=== PATIENT | female | born 1955 | race Caucasian/White ===

== ENCOUNTER 2022-10-20 21:35 | Emergency (ER) | payer MEDICARE, MEDICAID, SELFPAY ==
[2022-10-20 21:38] VITALS: BP 160/78; PULSE 76; RESP 16; TEMP 36.9; O2SAT 95; BMI 18.1
--- NOTE | 2022-10-20 21:50 | XR_ITS ---
The [address] [address] Patient Name: PATTY ROSE MRN: [id number] date: 1955 Sex: F Assigned Patient Location: ER Current Patient Location: ED.MAIN Accession/Order Number: [id number] Exam Date: 10/20/2022 22:00 Report Date: 10/20/2022 22:27 At the request of: MICHAEL PALMER Procedure: XR forearm LT 2V PROCEDURE: XR forearm LT 2V HISTORY: fall, acute left forearm injury COMPARISON: None. FINDINGS: BONES:Moderate marked degenerative joint disease involving the scaphoid-trapezium and the trapezium-first metacarpal joints. No fracture of the radius or ulna. Small degenerative enthesophyte at the triceps tendon insertion into the olecranon. SOFT TISSUES:No visible soft tissue swelling. EFFUSION:None visible. OTHER: Negative. IMPRESSION: 1. No acute bone abnormality. 2. Marked degenerative changes of the wrist. Electronically authenticated by: MESHA CARRASCO Date: 10/20/2022 22:27
--- NOTE | 2022-10-20 21:50 | ED.UPPEXIN1 ---
HPI - Extremity Injury (Upper) General Chief Complaint: Extremity Injury, Upper Stated Complaint: FALL, UPPER EXTREMITY ARM Time Seen by Provider: 10/20/22 21:36 Mode of arrival: ambulance History of Present Illness HPI narrative: [facility] fell at the shelter and landed onto her left arm, injuring the left forearm. No deformity noted and she can move the left upper extremity normally. No injury to the head, neck or back. Torso, hips, other extremities were not injured. Related Data Allergies Allergy/AdvReac Type Severity Reaction Status Date / Time erythromycin base AdvReac Mild Verified 10/20/22 21:44 [facility] Social History Smoking status: Never smoker Exam Narrative Exam Narrative: Nurses note and vital signs reviewed and patient is not hypoxic. afebrile General: The patient appears well and in no apparent distress. Patient is resting comfortably on cart. GCS = 15. Skin: Warm, dry, no pallor noted. Head: Normocephalic, atraumatic Neck: Supple, trachea mid-line. Full ROM and no cervical spinal tenderness. Eyes: PERRLA, EOMI ENT: no facial or oral injury Cardiovascular: Regular Rate and Rhythm Respiratory: Patient is in no distress, no accessory muscle use, lungs are clear to auscultation, no wheezing, rales or rhonchi Chest Wall: no tenderness, no flail chest, contusion, abrasion, or signs of trauma. Back: No thoracic or lumbar tenderness to palpation. Negative straight leg raise bilaterally. Musculoskeletal: Tenderness along the left forearm without deformity or decreased left UE ROM. no other sign of long bone fracture, no tenderness, no swelling. Pulses at femoral, DP, PT, and popliteal were 2+ bilaterally. Moves all four extremities in all modalities with 5/5 strength. GI: Normal bowel sounds, no tenderness to palpation, no masses appreciated. No rebound, guarding, or rigidity noted. 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 Psychiatric: Cooperative Constitutional Vital Signs, click to edit/add: Last Vital Signs Temp 98.5 F 10/20/22 21:38 Pulse 76 10/20/22 21:38 Resp 16 10/20/22 21:38 BP 160/78 H 10/20/22 21:38 Pulse Ox 95 10/20/22 21:38 O2 Del Method Room Air 10/20/22 21:38 Course Vital Signs Vital signs: Vital Signs Temperature 98.5 F 10/20/22 21:38 Pulse Rate 76 10/20/22 21:38 Respiratory Rate 16 10/20/22 21:38 Blood Pressure 160/78 H 10/20/22 21:38 Pulse Oximetry 95 10/20/22 21:38 Oxygen Delivery Method Room Air 10/20/22 21:38 Temperature 98.5 F 10/20/22 21:38 Pulse Rate 76 10/20/22 21:38 Respiratory Rate 16 10/20/22 21:38 Blood Pressure 160/78 H 10/20/22 21:38 Pulse Oximetry 95 10/20/22 21:38 Oxygen Delivery Method Room Air 10/20/22 21:38 MDM - Extremity Injury (Upper) MDM Narrative Medical decision making narrative: xrays of the left forearm obtained. They were negative for acute fracture or dislocation and she was discharged back to [facility] in [place]. Imaging Data xr forearm: My impression: no fracture or dislocation Discharge Plan Discharge Chief Complaint: Extremity Injury, Upper Clinical Impression: Left forearm pain Patient Disposition: Home, Self-Care Time of Disposition Decision: 22:20 Instructions: Arm Pain (ED) Stand Alone Forms: Portal Instructions Referrals: JOHN POLO [Primary Care Provider] - 1 week
== END 2022-10-20 23:55 | disposition home or self-care (01) ==
PROVIDERS: Emergency Provider Emergency Medicine; PCP Family Medicine
DX: M79.632 Pain in left forearm (principal); Z91.81 History of falling
CPT/HCPCS: 73090; 99283

== ENCOUNTER 2023-04-03 16:01 | Emergency (ER) | payer MEDICARE, MEDICAID, SELFPAY ==
[2023-04-03 16:08] VITALS: BP 149/80; PULSE 71; RESP 18; TEMP 37.1; O2SAT 95; BMI 17.4
--- NOTE | 2023-04-03 16:18 | XR_ITS ---
The [address] [address] Patient Name: PATTY ROSE MRN: [id number] date: 1955 Sex: F Assigned Patient Location: ER Current Patient Location: ED.MAIN Accession/Order Number: [id number] Exam Date: 04/03/2023 16:37 Report Date: 04/03/2023 17:17 At the request of: BOOKER SAMUEL Procedure: XR hip LT 2V w/ pelvis STUDY: XR hip LT 2V w/ pelvis, [id number] HISTORY: pain, fall COMPARISON: CT abdomen/pelvis 01/03/2021 and pelvis x-rays 09/29/2020. FINDINGS: Small curvilinear focus of calcification just lateral to the left acetabulum and superior to the left femoral head which is new compared with 09/29/2020. This could represent osseous fragmentation from severe osteoarthritis versus small acute fracture fragment. No other potentially acute fracture demonstrated. Severe joint space loss, subcortical cystic change, mild cortical collapse of the superior femoral head surface, and resulting cranial and lateral displacement of the left femoral head with respect to the acetabulum, new compared with 09/29/2020. XR/XR hip LT 2V w/ pelvis IMPRESSION: 1. Possible small fracture fragment versus osteoarthritic fragment just lateral to the acetabulum. No other potentially acute fracture demonstrated. 2. Severe osteoarthritis of the left hip is new compared with 09/29/2020. Degenerative changes have resulted in cranial and lateral positioning/subluxation of the left femoral head with respect to the acetabulum. Electronically authenticated by: ОЛЕГ WOMACK Date: 04/03/2023 17:17
--- NOTE | 2023-04-03 16:19 | ED.LOWEXI1 ---
Documented by User: Ana Acostaon 04/03/23 17:58 HPI - Extremity Injury (Lower) General Chief Complaint: Extremity Injury, Lower Stated Complaint: LOWER EXTREMITY INJURY Time Seen by Provider: 04/03/23 16:15 Source: patient Mode of arrival: ambulance Limitations: physical limitation History of Present Illness HPI Narrative: 67 year old female presents to the ED via EMS for left hip pain, fall. She has been having issues with her hip and is scheduled for a replacement tomorrow. Today she was walking along the edge of her bed, holding onto the bed, when her left hip developed increased pain causing her to fall. Denies hitting her head and LOC. Denies injury to other areas. Denies pain to her head, neck, back, chest, abdomen. Rates her pain 7/10 a this time. She was given fentanyl per EMS. Reports limited ROM to her left hip which is unchanged. She was given fentanyl per EMS with some improvement in her discomfort. Related Data Home Medications Medication Instructions Recorded Confirmed alendronate 70 mg tablet 70 mg PO .weekly 04/03/23 04/03/23 amlodipine 10 mg tablet 10 mg PO Q24H 04/03/23 04/03/23 atorvastatin 40 mg tablet 40 mg PO Q24H 04/03/23 04/03/23 buspirone 10 mg tablet 10 mg PO Q12H 04/03/23 04/03/23 calcium carbonate 600 mg-vitamin 1 tab PO BID 04/03/23 04/03/23 D3 10 mcg (400 unit) tablet (Calcium with Vitamin D) clonazepam 0.5 mg tablet 0.5 mg PO Q8H 04/03/23 04/03/23 cyclobenzaprine 10 mg tablet 10 mg PO Q8H 04/03/23 04/03/23 deutetrabenazine 12 mg tablet 12 mg PO Q12H 04/03/23 04/03/23 (Austedo) dextromethorphan-guaifenesin 10 10 ml PO Q6H 04/03/23 04/03/23 mg-100 mg/5 mL oral syrup fluticasone propionate 50 1 spray intranasal Q24H 04/03/23 04/03/23 mcg/actuation nasal spray,suspension gabapentin 300 mg capsule 300 mg PO Q12H 04/03/23 04/03/23 gabapentin 600 mg tablet 600 mg PO Q24H 04/03/23 04/03/23 levothyroxine 75 mcg tablet 75 mcg PO Q24H 04/03/23 04/03/23 loperamide 2 mg capsule 2 mg PO Q6H PRN loose stool 04/03/23 04/03/23 (Anti-Diarrheal (loperamide)) pantoprazole 40 mg tablet,delayed 40 mg PO Q12H 04/03/23 04/03/23 release pantoprazole 40 mg tablet,delayed 40 mg PO DAILY 04/03/23 04/03/23 release (Protonix) polyethylene glycol 3350 17 17 g PO DAILY 04/03/23 04/03/23 gram/dose oral powder (Miralax) primidone 50 mg tablet 250 mg PO Q24H 04/03/23 04/03/23 sucralfate 1 gram tablet 1 g PO Q6H 04/03/23 04/03/23 trazodone 100 mg tablet 100 mg PO Q24H 04/03/23 04/03/23 Allergies Allergy/AdvReac Type Severity Reaction Status Date / Time erythromycin base AdvReac Mild Verified 10/20/22 21:44 Review of Systems ROS Constitutional Denies: fever or chills Cardiovascular Denies: chest pain or lightheadedness Respiratory Denies: shortness of breath Gastrointestinal Denies: abdominal pain, nausea or vomiting Musculoskeletal Reports: joint pain; Denies: back pain or neck pain Integumentary/Breast Denies: rash Neurological Denies: headache or dizziness PFSH PFSH Social History Smoking status: Never smoker Exam Constitutional Vital Signs, click to edit/add: Last Vital Signs Temp 98.7 F 04/03/23 16:08 Pulse 71 04/03/23 16:08 Resp 18 04/03/23 16:08 BP 149/80 H 04/03/23 16:08 Pulse Ox 95 04/03/23 16:08 Common normals: no apparent distress and oriented x3 General appearance: cooperative HENMN Common normals: normocephalic Eye Common normals: PERRL, EOMs intact bilaterally, conjunctivae normal and no scleral icterus Neck & C-Spine Common normals: supple General: normal visual inspection Cervical spine: no cervical spine tenderness and no paracervical muscle tenderness Chest Chest: symmetrical chest wall rise Respiratory Common normals: normal respiratory effort Effort & inspection: symmetric chest movement Cardio Common normals: regular rate Peripheral pulses: posterior tibial pulses present and dorsalis pedis pulses present Back & Pelvis Thoracic spine/upper back: normal to inspection; no thoracic spinal tenderness and no paraspinal muscle tenderness Lumbar spine/lower back: normal to inspection; no lumbar spinal tenderness and no paraspinal muscle tenderness Sacrum: no swelling and no tenderness Coccyx: no swelling and no tenderness Extremity Left lower extremity: hip joint Left hip: inspection (Internal rotation. ), palpation (Tenderness lateral and anterior.) and ROM (Minimal.) Course Vital Signs Vital signs: Vital Signs Temperature 98.7 F 04/03/23 16:08 Pulse Rate 71 04/03/23 16:08 Respiratory Rate 18 04/03/23 16:08 Blood Pressure 149/80 H 04/03/23 16:08 Pulse Oximetry 95 04/03/23 16:08 Temperature 98.7 F 04/03/23 16:08 Pulse Rate 71 04/03/23 16:08 Respiratory Rate 18 04/03/23 16:08 Blood Pressure 149/80 H 04/03/23 16:08 Pulse Oximetry 95 04/03/23 16:08 MDM - Extremity Injury (Lower) MDM Narrative Medical decision making narrative: Imaging was reviewed by the ED attending. He reported the x-rays were negative for acute findings and a CT scan was not indicated at this time. She was able to move her extremities and was able to ambulate with assistance. She has an appointment at [facility] tomorrow with her orthopedist regarding her left hip issues. She was encouraged to follow up as scheduled. Return to the ER for new or worsening sx. She was given a copy of her imaging report. She was medicated for her discomfort with improvement. Differential Diagnosis Differential diagnosis: Likely fracture of hip and other (hip dislocation, chronic hip pain) Medical Records Attestation: I reviewed the patient's medical records. Imaging Data XR left hip/pelvis: Attestation: I have reviewed the pertinent imaging results. Radiologist's impression: Procedure: XR hip LT 2V w/ pelvis STUDY: XR hip LT 2V w/ pelvis, [id number] HISTORY: pain, fall COMPARISON: CT abdomen/pelvis 01/03/2021 and pelvis x-rays 09/29/2020. FINDINGS: Small curvilinear focus of calcification just lateral to the left acetabulum and superior to the left femoral head which is new compared with 09/29/2020. This could represent osseous fragmentation from severe osteoarthritis versus small acute fracture fragment. No other potentially acute fracture demonstrated. Severe joint space loss, subcortical cystic change, mild cortical collapse of the superior femoral head surface, and resulting cranial and lateral displacement of the left femoral head with respect to the acetabulum, new compared with 09/29/2020. XR/XR hip LT 2V w/ pelvis IMPRESSION: 1. Possible small fracture fragment versus osteoarthritic fragment just lateral to the acetabulum. No other potentially acute fracture demonstrated. 2. Severe osteoarthritis of the left hip is new compared with 09/29/2020. Degenerative changes have resulted in cranial and lateral positioning/subluxation of the left femoral head with respect to the acetabulum. Electronically authenticated by: ОЛЕГ WOMACK Date: 04/03/2023 17:17 Discharge Plan Discharge Chief Complaint: Extremity Injury, Lower Clinical Impression: Hip pain, left Patient Disposition: Home, Self-Care Time of Disposition Decision: 17:35 Condition: Good Mode of Transportation: Private Vehicle Prescriptions / Home Meds: No Action amlodipine 10 mg tablet 10 mg PO Q24H atorvastatin 40 mg tablet 40 mg PO Q24H Austedo 12 mg tablet 12 mg PO Q12H buspirone 10 mg tablet 10 mg PO Q12H clonazepam 0.5 mg tablet 0.5 mg PO Q8H cyclobenzaprine 10 mg tablet 10 mg PO Q8H fluticasone propionate 50 mcg/actuation spray,suspension 1 spray INTRANASAL Q24H alendronate 70 mg tablet 70 mg PO .weekly gabapentin 300 mg capsule 300 mg PO Q12H gabapentin 600 mg tablet 600 mg PO Q24H levothyroxine 75 mcg tablet 75 mcg PO Q24H pantoprazole 40 mg tablet,delayed release (DR/EC) 40 mg PO Q12H primidone 50 mg tablet 250 mg PO Q24H sucralfate 1 gram tablet 1 g PO Q6H trazodone 100 mg tablet 100 mg PO Q24H pantoprazole [Protonix] 40 mg tablet,delayed release (DR/EC) 40 mg PO DAILY polyethylene glycol 3350 [Miralax] 17 gram/dose powder 17 g PO DAILY loperamide [Anti-Diarrheal (loperamide)] 2 mg capsule 2 mg PO Q6H PRN (Reason: loose stool) dextromethorphan-guaifenesin 10-100 mg/5 mL syrup 10 ml PO Q6H calcium carbonate-vitamin D3 [Calcium with Vitamin D] 600 mg-10 mcg (400 unit) tablet 1 tab PO BID Instructions: Hip Pain (ED) Additional Instructions: Follow up with your orthopedist tomorrow as scheduled. Stand Alone Forms: Portal Instructions Referrals: JOHN POLO [Primary Care Provider] - 1 week Discharge Date/Time: 04/03/23 19:06 Documented by User: Erick Hargrove MD 04/03/23 19:35 HPI - Extremity Injury (Lower) General Chief Complaint: Extremity Injury, Lower Stated Complaint: LOWER EXTREMITY INJURY Time Seen by Provider: 04/03/23 16:15 Related Data Home Medications Medication Instructions Recorded Confirmed alendronate 70 mg tablet 70 mg PO .weekly 04/03/23 04/03/23 amlodipine 10 mg tablet 10 mg PO Q24H 04/03/23 04/03/23 atorvastatin 40 mg tablet 40 mg PO Q24H 04/03/23 04/03/23 buspirone 10 mg tablet 10 mg PO Q12H 04/03/23 04/03/23 calcium carbonate 600 mg-vitamin 1 tab PO BID 04/03/23 04/03/23 D3 10 mcg (400 unit) tablet (Calcium with Vitamin D) clonazepam 0.5 mg tablet 0.5 mg PO Q8H 04/03/23 04/03/23 cyclobenzaprine 10 mg tablet 10 mg PO Q8H 04/03/23 04/03/23 deutetrabenazine 12 mg tablet 12 mg PO Q12H 04/03/23 04/03/23 (Austedo) dextromethorphan-guaifenesin 10 10 ml PO Q6H 04/03/23 04/03/23 mg-100 mg/5 mL oral syrup fluticasone propionate 50 1 spray intranasal Q24H 12/20/23 12/20/23 mcg/actuation nasal spray,suspension gabapentin 300 mg capsule 300 mg PO Q12H 04/03/23 04/03/23 gabapentin 600 mg tablet 600 mg PO Q24H 04/03/23 04/03/23 levothyroxine 75 mcg tablet 75 mcg PO Q24H 04/03/23 04/03/23 loperamide 2 mg capsule 2 mg PO Q6H PRN loose stool 04/03/23 04/03/23 (Anti-Diarrheal (loperamide)) pantoprazole 40 mg tablet,delayed 40 mg PO Q12H 04/03/23 04/03/23 release pantoprazole 40 mg tablet,delayed 40 mg PO DAILY 04/03/23 04/03/23 release (Protonix) polyethylene glycol 3350 17 17 g PO DAILY 04/03/23 04/03/23 gram/dose oral powder (Miralax) primidone 50 mg tablet 250 mg PO Q24H 04/03/23 04/03/23 sucralfate 1 gram tablet 1 g PO Q6H 04/03/23 04/03/23 trazodone 100 mg tablet 100 mg PO Q24H 04/03/23 04/03/23 Allergies Allergy/AdvReac Type Severity Reaction Status Date / Time erythromycin base AdvReac Mild Verified 10/20/22 21:44 PFSH PFSH Social History Smoking status: Never smoker Exam Constitutional Vital Signs, click to edit/add: Last Vital Signs Temp 98.7 F 04/03/23 16:08 Pulse 71 04/03/23 16:08 Resp 18 04/03/23 16:08 BP 149/80 H 04/03/23 16:08 Pulse Ox 95 04/03/23 16:08 Course Vital Signs Vital signs: Vital Signs Temperature 98.7 F 04/03/23 16:08 Pulse Rate 71 04/03/23 16:08 Respiratory Rate 18 04/03/23 16:08 Blood Pressure 149/80 H 04/03/23 16:08 Pulse Oximetry 95 04/03/23 16:08 Temperature 98.7 F 04/03/23 16:08 Pulse Rate 71 04/03/23 16:08 Respiratory Rate 18 04/03/23 16:08 Blood Pressure 149/80 H 04/03/23 16:08 Pulse Oximetry 95 04/03/23 16:08 MDM - Extremity Injury (Lower) MDM Narrative Medical decision making narrative: Imaging was reviewed by the ED attending. He reported the x-rays were negative for acute findings and a CT scan was not indicated at this time. She was able to move her extremities and was able to ambulate with assistance. She has an appointment at [facility] tomorrow with her orthopedist regarding her left hip issues. She was encouraged to follow up as scheduled. Return to the ER for new or worsening sx. She was given a copy of her imaging report. She was medicated for her discomfort with improvement. I, Dr Hargrove, have reviewed the above progress note and course of action in the ER; agree with the above. I have personally seen and evaluated this patient, gone over history and physical, and discussed disposition and treatment plan with the patient. Discharge Plan Discharge Chief Complaint: Extremity Injury, Lower Clinical Impression: Hip pain, left Patient Disposition: Home, Self-Care Time of Disposition Decision: 17:35 Condition: Good Mode of Transportation: Private Vehicle Prescriptions / Home Meds: No Action amlodipine 10 mg tablet 10 mg PO Q24H atorvastatin 40 mg tablet 40 mg PO Q24H Austedo 12 mg tablet 12 mg PO Q12H buspirone 10 mg tablet 10 mg PO Q12H clonazepam 0.5 mg tablet 0.5 mg PO Q8H cyclobenzaprine 10 mg tablet 10 mg PO Q8H fluticasone propionate 50 mcg/actuation spray,suspension 1 spray INTRANASAL Q24H alendronate 70 mg tablet 70 mg PO .weekly gabapentin 300 mg capsule 300 mg PO Q12H gabapentin 600 mg tablet 600 mg PO Q24H levothyroxine 75 mcg tablet 75 mcg PO Q24H pantoprazole 40 mg tablet,delayed release (DR/EC) 40 mg PO Q12H primidone 50 mg tablet 250 mg PO Q24H sucralfate 1 gram tablet 1 g PO Q6H trazodone 100 mg tablet 100 mg PO Q24H pantoprazole [Protonix] 40 mg tablet,delayed release (DR/EC) 40 mg PO DAILY polyethylene glycol 3350 [Miralax] 17 gram/dose powder 17 g PO DAILY loperamide [Anti-Diarrheal (loperamide)] 2 mg capsule 2 mg PO Q6H PRN (Reason: loose stool) dextromethorphan-guaifenesin 10-100 mg/5 mL syrup 10 ml PO Q6H calcium carbonate-vitamin D3 [Calcium with Vitamin D] 600 mg-10 mcg (400 unit) tablet 1 tab PO BID Instructions: Hip Pain (ED) Additional Instructions: Follow up with your orthopedist tomorrow as scheduled. Stand Alone Forms: Portal Instructions Referrals: JOHN POLO [Primary Care Provider] - 1 week Discharge Date/Time: 04/03/23 19:06
[2023-04-03] MEDS: MORPHINE SULFATE 2 MG/ML SYRINGE IV (16:47)
[2023-04-03] MEDS: ONDANSETRON PF 4 MG/2 ML VIAL IV (16:47)
--- NOTE | 2023-04-03 17:26 | PC.NURSE ---
Assisted pt with other RN onto fracture gustafson. skin care completed and brief placed. readjusted in bed for comfort. call light within reach
--- OUTSIDE RECORDS SUMMARY | 2023-04-04 10:08 | XMS_ITS | CCD ---
Author Name Unknown Address [id number] [place] [address] Organization [facility] Care Team Providers Care Software Test Technician Name Role Phone HERVE STARKEY Admitting Unavailable ESTEBAN GARZA Referring Unavailable ESTEBAN GARZA Primary Care Unavailable HERVE STARKEY Attending Unavailable Alexey Polo Unavailable Radha Bosch Unavailable Stevenson Corbin Unavailable Sena Eugene Unavailable MD Stevenson Corbin Attending Provider [phone] DO Alexey Polo Primary Care Provider Esteban Garza Primary Care Provider [phone] Esteban Garza Primary Care Provider CHRIST, DR ALEXEY Garcia Primary Care Unavailable LENA PALMER Attending Unavailable LENA PALMER Admitting Unavailable ASHLEY, DR CM Napier Consulting Unavailable SOFI DISLA Consulting Unavailable ZARI Gore, LENA Consulting Unavailable CHRIST, DR ALEXEY Garcia Primary Care Unavailable SPENCER Gore, DR RODRIGUEZ Attending Unavailable SPENCER ., DR RODRIGUEZ Admitting Unavailable SPENCER Gore, DR RODRIGUEZ Consulting Unavailable Santiago Helms Consulting Unavailable DONAVAN, DR EMMA Palacio Attending Unavailable DONAVAN, DR EMMA Palacio Admitting Unavailable DONAVAN, DR EMMA Palacio Consulting Unavailable CHRIST, DR ALEXEY Garcia Primary Care Unavailable SARAH MOMIN Consulting Unavailable CM ROBLES Consulting Unavailable CHRIST, DR ALEXEY Garcia Consulting Unavailable CHRIST, DR ALEXEY Garcia Attending Unavailable CHRIST, DR ALEXEY Garcia Admitting Unavailable CHRIST, DR ALEXEY Garcia Primary Care Unavailable DANILO, DR MESHA Palacio Consulting Unavailable PAY ., DR MILES Attending Unavailable PAY ., DR MILES Admitting Unavailable PAY ., DR MILES Consulting Unavailable FURLONG, DR ALEXEY Garcia Primary Care Unavailable MARKER ., DR VELASQUEZ Attending Unavailable MARKER ., DR VELASQUEZ Admitting Unavailable WEST, DR CM Napier Consulting Unavailable FURLONG, DR ALEXEY Garcia Primary Care Unavailable MARKER ., DR VELASQUEZ Consulting Unavailable ZARI ., LENA Consulting Unavailable ZARI ., LENA Admitting Unavailable ZARI ., LENA Consulting Unavailable ZARI ., LENA Attending Unavailable FURLONG, DR ALEXEY Garcia Primary Care Unavailable SIMON ANDRADE Consulting Unavailable FURLONG, DR ALEXEY Garcia Primary Care Unavailable SOFI DISLA Attending Unavailable NIGHAT, SOFI Admitting Unavailable SOFI DISLA Consulting Unavailable JEFE SAEED Consulting Unavailable FurlongDO Blackburn Primary Care Provider MD Stevenson Corbin Attending Provider [phone] Olexa, Stevenson Admitting Unavailable Olexa, Stevenson Attending Unavailable Furlong, Alexey Primary Care Unavailable Olexa, Stevenson Admitting Unavailable Olexa, Stevenson Attending Unavailable Furlong, Alexey Primary Care Unavailable Olexa, Stevenson Admitting Unavailable Olexa, Stevenson Attending Unavailable Furlong, Alexey Primary Care Unavailable Olexa, Stevenson Admitting Unavailable Olexa, Stevenson Attending Unavailable Furlong, Alexey Primary Care Unavailable Olexa, Stevenson Admitting Unavailable Olexa, Stevenson Attending Unavailable Furlong, Alexey Primary Care Unavailable Olexa, Stevenson Admitting Unavailable Olexa, Stevenson Attending Unavailable Furlong, Alexey Primary Care Unavailable Olexa, Stevenson Admitting Unavailable Olexa, Stevenson Attending Unavailable Furlong, Alexey Primary Care Unavailable Olexa, Stevenson Admitting Unavailable Olexa, Stevenson Attending Unavailable Furlong, Alexey Primary Care Unavailable Olexa, Stevenson Admitting Unavailable Olexa, Stevenson Attending Unavailable Furlong, Alexey Primary Care Unavailable TAI HINOJOSA Attending Unavailable ESTEBAN GARZA Primary Care Unavailable TAI HINOJOSA Attending Unavailable TAI HINOJOSA Referring Unavailable ESTEBAN GARZA Primary Care Unavailable HERVE STARKEY Referring Unavailable HERVE STARKEY Attending Unavailable Allergies Allergy Classification Reported Allergen(s) Allergy Type Date of Onset Reaction(s) Facility (4 sources) Azithromycin Drug Allergy 0 Unknow [facility] Repository (2 sources) Erythromycin; Translations: [erythromycin] Drug Allergy 7 [facility] Repository (5 sources) erythromycin base; Translations: [Erythromycin Base] Allergy to substance 1 Unknown Reaction [facility] (1 source) Azithromycin Drug Allergy 2 [facility] Repository Medications Current Medications Medication Drug Class(es) Dates Sig (Normalized) Sig (Original) acetaminophen 500 mg oral tablet (15 sources) Start: 10-09-2021 take 2 tablets by mouth three times daily Acetaminophen (Tylenol Extra Strength) 500 mg Tablet Active 1000 MG PO Three times daily October 08, 2021 11:00pm take 1 tablet by courtney th every four hours as needed Acetaminophen 325 MG 1 tablet as needed Orally every 4 hrs Active take 1 tablet by courtney th every eight hours as needed acetaminophen (TYLENOL EXTRA STRENGTH) 5 00 mg tablet Take 500 mg by mouth every 8 hours as needed. 0 Active take 2 tablets by mo uth every eight hours Tylenol Extra Strength 500 MG TABS TAKE 2 TABLET Every 8 hours Quantity: 0 Refills: 0 Ordered: 25-Sep-2021 DO Active Comment on above: Take 500 mg by mouth every 8 hours as needed. acetaminophen 325 mg / HYDROcodone bitartrate 5 mg oral tablet (1 source) Opioid Agonist take 1 tablet by mouth every six hours HYDROcodone-Acetam inophen 5-325 MG 1 tablet as needed Orally every 6 hrs Active amLODIPine 5 mg oral tablet (15 sources) Dihydropyridine Calcium Channel Michael Start: 09-14-19 take 10 mg by mouth once daily Amlodipine Active 10 MG PO Daily September 12, 2021 11:00pm Start: 07-27-2020 take 1 tablet by courtney th every twenty-four hours amLODIPine Besylate 10 MG 1 tablet Orally Once a day Jul, Active amLODIPine (NORV ASC) 5 mg tablet Take by mouth once daily. 0 Active Comment on above: Take by mouth once d aily. atorvastatin 40 mg oral tablet (15 sources) HMG-CoA Reductase Inhibitor Start: take 40 mg by mouth once daily at bedtime Atorvastatin Active 40 MG PO Daily at bedtime September 12, 2021 11:00pm Comment on above: Take 40 mg by mouth once daily. Calcium + D3 600-800 MG-UNIT (10 sources) take 600-800 tablets by mouth once daily take 600-800 tablets by mouth on ce daily Calcium + D3 600-800 MG-UNIT 2 tablet with a meal Orally Once a day Active calcium carbonate 1500 mg / cholecalciferol 200 unt oral tablet (3 sources) Vitamin D Start: 09-13-2021 take 2 tablets by mouth once daily Calcium Carbonate-Vitamin D3 (Calcium + D) 600 mg-5 mcg (200 unit) Tablet Active 2 TAB PO Daily September 12, 2021 11:00pm cephalexin 500 mg oral capsule (3 sources) Cephalosporin Antibacterial Start: 09-18-2021 take 1 capsule by mouth every eight hours Cephalexin 500 MG 1 capsule Orally every 8 hrs for 2 day(s) Oct, Active chlorzoxazone 500 mg oral tablet (7 sources) Muscle Relaxant take 1 tablet by mouth every eight hours Chlorzoxazone 500 mg 1 tablet Orally Three times a day for 30 day(s) Active clonazePAM 1 mg oral tablet (20 sources) Benzodiazepine Start: 12-08-2020 take 1 mg by mouth three times daily Clonazepam Active 1 MG PO Three times daily September 13, 2021 11:00am Start: 07-05-2020 End: 09-13-2021 take 1 mg by mouth twice daily Clonazepam Discontinued 1 MG PO Twice daily July 04, 2020 11:00pm September 13, 2021 11:00am Start: 06-28-2020 End: 07-05-2020 take 1 mg by mouth three times daily Clonazepam Discontinued 1 MG PO Three times daily June 27, 2020 11:00pm July 05, 2020 9:25am Comment on above: Take 1 tablet by courtney three times daily for 90 days. [including bedtime] Take 1 mg by mouth t wice daily as needed. deutetrabenazine 9 mg oral tablet (8 sources) Start: 022 End: 023 take 2 tablets by mouth twice daily at mealtime deutetrabenazine (AUSTEDO) 9 mg tab Indications: Dyskinesia, tardive , Lingual facial buccal dyskinesia , Dyskinesia, orofacial Take 2 tablets (18 mg) by mouth twice daily with meals. 120 tablet 2 02/02/2022 05/03/2022 Active Start: 01-02-2022 End: 02-01-2022 take 1 tablet by mouth twice daily at mealtime deutetrabenazine (AUSTEDO) 12 mg tab Indications: Dyskinesia, tardive , Lingual facial buccal dyskinesia , Dyskinesia, orofacial Take 1 tablet (12 mg) by mouth twice daily with meals. 60 tablet 0 01/02/2022 02/01/2022 Active Start: 05-17-2021 End: 01-02-2022 take 1 tablet by mouth twice daily Deutetrabenazine (Austedo) 6 mg tablet Active 6 MG PO Twice daily September 12, 2021 11:00pm Comment on above: Take 1 tablet (6 mg) by mouth twice daily with meals. Take 1 tablet (12 mg ) by mouth twice daily with meals. Take 2 tablets (18 m g) by mouth twice daily with meals. Deutetrabenazine 6 MG (9 sources) take 1 tablet by mouth twice daily at mealtime Deutetrabenazine 6 MG 1 tablet with food Orally Twice a day Active take 1 tablet by courtney th once daily at mealtime take 1 tablet by courtney th once daily at mealtime Deutetrabenazine 6 MG 1 tablet with food Orally Once a day Active ferrous sulfate 325 mg oral tablet (17 sources) Start: 09-13-2021 take 325 mg by mouth every week Ferrous Sulfate Active 325 MG PO 3 Times a week September 12, 2021 11:00pm takes every sat, sat, sat take 1 tablet by courtney th once daily at breakfast ferrous sulfate 325 mg (65 mg iron) tabl et Take 325 mg by mouth daily with breakfast. 0 Active Ferrous Sulfate 325 mg (65 mg iron) cpER Take by mouth. 0 Active take 1 tablet by mouth every oth er day Ferrous Sulfate 325 (65 Fe) MG 1 tablet Orally EVERY OTHER DAY Active take 1 tablet by mouth once jose manuel y take 1 tablet by mouth once jose manuel y Ferrous Sulfate 325 (65 Fe) MG 1 tablet Orally Once a day Active Comment on above: Take by mouth. Take 325 mg by mouth daily with breakfast. gabapentin 300 mg oral capsule (20 sources) Anti-epileptic Agent Start: 10-03-2020 take 300 mg by mouth twice daily Gabapentin Active 300 MG PO Twice daily September 12, 2021 11:00pm Start: 06-29-2020 take 600 mg by mouth at bedtim e Gabapentin Active 600 MG PO Bedtime June 28, 2020 11:00pm Start: 06-28-2020 End: 07-05-2020 Gabapentin Discontinued 300 MG PO Twice daily June 27, 2020 11:00pm July 05, 2020 9:25am 1 (300MG) in AM, 1 (300 MG) in afternoon, 2 (600 MG) at bedtime Comment on above: Take 1 capsule in th e morning, one in early afternoon, and 2 in the evening ibuprofen 200 mg oral tablet (8 sources) Nonsteroidal Anti-inflammatory Drug Start: 09-13-2021 take 600 mg by mouth every eight hours Ibuprofen Active 600 MG PO Q8H September 12, 2021 11:00pm take 3 capsules by m out every eight hours Ibuprofen 200 MG 3 capsule with food or milk as needed Orally Three times a day Active Ibuprofen 200 mg cap Take by mouth every 6 hours as needed. 0 Active take 3 tablets by mo uth once daily as needed Ibuprofen 200 MG Oral Tablet TAKE 3 TABL ET Daily PRN Quantity: 0 Refills: 0 Ordered: 25-Sep-2021 DO Active Comment on above: Take by mouth every 6 hours as needed. levothyroxine sodium 0.075 mg oral tablet (17 sources) l-Thyroxine Start: take 75 ug by mouth once daily Levothyroxine Active 75 MCG PO Daily June 27, 2020 11:00pm take 1 tablet by courtney th every twenty-four hours Levothyroxine Sodium 75 MCG 1 tablet Orally Once a day for 30 day(s) Active take 1 tablet by mouth once jose manuel y levothyroxine (SYNTHROID) 100 mcg tablet Take 100 mcg by mouth once daily. 0 Active take 1 capsule by mo uth once daily before breakfast levothyroxine 75 mcg cap Take 75 mcg by mouth daily before breakfast. 0 Active Comment on above: Take 100 mcg by mout h once daily. Take 75 mcg by mouth daily before breakfast. loperamide hydrochloride 2 mg oral capsule (15 sources) Opioid Agonist Start: 09-13-2021 Loperamide (Imodium A-D) 2 mg Capsule Active 1 - 2 MG PO Q6H September 12, 2021 11:00pm take 1 tablet by mouth every six hours Imodium A-D 2 MG 1 tablet as needed Orally Four times a day Active take 1 capsule by mo uth every six hours as needed loperamide (IMODIUM A-D) 2 mg cap(s) Hood e 2 mg by mouth four times daily as needed. 0 Active Comment on above: Take 2 mg by mouth f our times daily as needed. methocarbamol 750 mg oral tablet (15 sources) Muscle Relaxant Start: 1 take 750 mg by mouth three times daily Methocarbamol Active 750 MG PO Three times daily June 27, 2020 11:00pm take 1 tablet by courtney four times daily methocarbamol (ROBAXIN) 750 mg tablet Ta ke 750 mg by mouth four times daily. 0 Active Comment on above: Take 750 mg by mouth four times daily. ondansetron 4 mg oral tablet (8 sources) Serotonin-3 Receptor Antagonist Start: 2 take 1 tablet by mouth every four hours Ondansetron Hcl (Zofran) 4 mg Tablet Active 4 MG PO Every 4 hours October 08, 2021 11:00pm ondansetron (ZOF RAN) 4 mg tablet Take by mouth every 8 hours as needed for nausea/vomiting. 0 Active Comment on above: Take by mouth every 8 hours as needed for nausea/vomiting. pantoprazole 40 mg delayed release oral tablet (17 sources) Proton Pump Inhibitor Start: 06-29-19 21 take 40 mg by mouth twice daily Pantoprazole Active 40 MG PO Twice daily June 27, 2020 11:00pm take 1 tablet by mouth once jose manuel y pantoprazole DR (PROTONIX) 40 mg tablet Take 40 mg by mouth once daily. 0 Active Comment on above: Take 40 mg by mouth twice daily. Take 40 mg by mouth once daily. polyethylene glycol 3350 09910 mg powder for oral solution (7 sources) Osmotic Laxative Start: 09-13-2021 Polyethylene Glycol 3350 (Miralax) 17 gram/dose Powder Active 17 GM PO Daily September 12, 2021 11:00pm Comment on above: Take by mouth once d aily. Dissolve dose in 4 - 8 ounces of liquid and take as directed. primidone 250 mg oral tablet (16 sources) Anti-epileptic Agent Start: 06-28-2020 take 250 mg by mouth twice daily Primidone Active 250 MG PO Twice daily June 27, 2020 11:00pm Comment on above: Take 1 tablet by courtney twice daily. sodium chloride 1000 mg oral tablet (15 sources) Start: 10-09-2021 take 1000 mg by mouth once daily Sodium Chloride Active 1000 MG PO Daily October 08, 2021 11:00pm Start: 12-26-2020 take 1 tablet by courtney th once daily Sodium Chloride 1 GM Oral Tablet take 1 tablet by mouth once daily Quantity: 30 Refills: 0 Ordered: 26-Dec-2020 DO Start : 26-Dec-2020 Active take 1 tablet by courtney th three times daily sodium chloride 1 g tab Take 1 g by mouth three times daily. 0 Active Sodium Chloride 1 GM as directed Orally Active Comment on above: Take 1 g by mouth th ree times daily. sucralfate 1000 mg oral tablet (8 sources) Aluminum Complex Start: 09-13-2021 take 1 g by mouth four times daily Sucralfate Active 1 GM PO Four times daily October 08, 2021 11:00pm take 1 tablet by mouth every six hours Sucralfate 1 GM 1 tablet on an empty stomach Orally FOUR TIMES A DAY Active Comment on above: Take 1 g by mouth fo ur times daily. traZODone hydrochloride 150 mg oral tablet (18 sources) Serotonin Reuptake Inhibitor Start: take 150 mg by mouth at bedtime Trazodone Active 150 MG PO Bedtime October 08, 2021 11:00pm Start: 06-28-2020 End: 09-13-2021 take 150 mg by mouth once daily at bedtime Trazodone Discontinued 150 MG PO Daily at bedtime June 27, 2020 11:00pm September 13, 2021 11:02am Comment on above: Take 150 mg by mouth daily at bedtime. Completed/Discontinued Medications Medication Drug Class(es) Dates Sig (Normalized) Sig (Original) acetaminophen 325 mg / oxyCODONE hydrochloride 5 mg oral tablet (9 sources) Opioid Agonist Start: 09-18-2021 take 1 tablet by mouth every four hours as needed for pain Percocet 5-325 MG 1 tablet as needed for pain Orally up to every 4 hrs for 5 days KALEE: [id number] Oct, Not-Taking alendronic acid 70 mg oral tablet (19 sources) Bisphosphonate Start: 05-07-2018 End: 09-13-2021 take 70 mg by mouth every week Alendronate Discontinued 70 MG PO every week June 27, 2020 11:00pm September 13, 2021 11:00am take 1 tablet by mouth once jose manuel y Fosamax 70 MG 1 tablet 30 minutes before the first food, beverage or medicine of the day with plain water Orally Active Comment on above: once each week. Take 70 mg by mouth one time a week. In AM with cup of water on empty stomach. Nothing else by mouth and stay upright for 30 min. ascorbic acid 500 mg oral tablet (2 sources) Vitamin C take 1 tablet by mouth once daily ascorbic acid, vitamin C, (VITAMIN C WITH NOVA HIPS) 500 mg tablet Take 500 mg by mouth once daily. 0 Active Comment on above: Take 500 mg by mouth once daily. busPIRone hydrochloride 10 mg oral tablet (20 sources) Start: 09-15-2021 take 2 tablets by mouth once daily busPIRone HCl - 15 MG Oral Tablet TAKE 2 TABLET Daily Quantity: 0 Refills: 0 Ordered: 15-Sep-2021 DO Start : 15-Sep-2021 Active Start: 09-13-2021 take 10 mg by mouth once daily at bedtime Buspirone Active 10 MG PO Daily at bedtime September 13, 2021 11:00am Start: 09-13-2021 take 15 mg by mouth twice jose manuel y Buspirone Active 15 MG PO Twice daily September 12, 2021 11:00pm Start: 07-05-2020 End: 09-13-2021 take 10 mg by mouth three times daily Buspirone Discontinued 10 MG PO Three times daily July 04, 2020 11:00pm September 13, 2021 11:00am Start: 06-29-2020 End: 07-05-2020 take 10 mg by mouth at bedtime Buspirone Discontinued 10 MG PO Bedtime June 28, 2020 11:00pm July 05, 2020 9:25am Start: 06-28-2020 End: 07-05-2020 Buspirone Discontinued 15 MG PO BID@June 27, 2020 11:00pm July 05, 2020 9:25am 1.5 tabs in AM, 1.5 tabs in afternoon, 1 tab in evening Start: 10-17-2018 take 1 tablet by three times daily busPIRone (BUSPAR) 5 mg tablet Indications: Anxiety Take 1 tablet by mouth three times daily. 90 tablet 2 10/17/2018 Active take 1 tablet by courtney th three times daily busPIRone (BUSPAR) 15 mg tablet Take 15 mg by mouth three times daily. 0 Active Comment on above: Take 1 tablet by courtney th three times daily. Take 15 mg by mouth three times daily. Calcium (1 source) Phosphate Binder, Calcium Calcium 600 + D TABS TAKE 2 TABLET Daily Quantity: 0 Refills: 0 Ordered: 25-Sep-2021 DO Active calcium carbonate 1500 mg oral tablet (1 source) calcium carbonat e (CALTRATE) 600 mg calcium (1,500 mg) tab Take 600 mg by mouth. 0 Active Comment on above: Take 600 mg by mouth . escitalopram 10 mg oral tablet (15 sources) Serotonin Reuptake Inhibitor Start: 1 End: 2 take 1 tablet by mouth once daily Escitalopram Oxalate (Lexapro) 10 mg tablet Discontinued 10 MG PO Daily July 04, 2020 11:00pm September 13, 2021 11:01am Start: 07-16-2018 End: 07-05-2020 take 20 mg by mouth once daily Escitalopram Oxalate Di scontinued 20 MG PO Daily June 27, 2020 11:00pm July 05, 2020 9:25am Comment on above: Take 20 mg by mouth once daily. fluticasone propionate 0.05 mg/actuat metered dose nasal spray (14 sources) Corticosteroid Start: 09-21-2021 Fluticasone Propionate 50 MCG/ACT Nasal Suspension As directed. Quantity: 0 Refills: 0 Ordered: 21-Sep-2021 DO Start : 21-Sep-2021 Active Start: 09-13-2021 Fluticasone Pr opionate Active 1 SPRAY INTRANASAL Daily September 12, 2021 11:00pm take 1 spray(s) nasa l route once daily Fluticasone Propionate 50 MCG/ACT 1 spray in each nostril Nasally Once a day Active take 1 puff(s) by in halation twice daily Fluticasone Propionate 50 mcg/actuation diskus inhaler Inhale 1 Puff as instructed twice daily. 0 Active Comment on above: Inhale 1 Puff as ins tructed twice daily. furosemide 20 mg oral tablet (3 sources) Loop Diuretic Start: 1 End: 2 take 20 mg by mouth once daily Furosemide Discontinued 20 MG PO Daily at 0800 30 30 July 04, 2020 11:00pm September 13, 2021 11:01am Magnesium (5 sources) Start: 1 End: 2 take 250 mg by mouth once daily at bedtime Magnesium Discontinued 250 MG PO Daily at bedtime June 27, 2020 11:00pm September 13, 2021 11:01am Start: 06-28-2020 End: 09-13-2021 take 250 mg by mouth once daily at bedtime Magnesium Discontinued 250 MG PO Daily at bedtime June 28, 2020 12:00am September 13, 2021 12:01pm Magnesium 250 mg tab Take 250 mg by mouth. 0 Active Comment on above: Take 250 mg by mouth . menthol 0.04 mg/mg topical gel (7 sources) Start: 09-13-2021 End: 10-18-2021 Menthol (Biofreeze (Menthol)) 4 % Gel Discontinued 1 APPLIC TOPICAL Q8H September 12, 2021 11:00pm October 18, 2021 6:26am Biofreeze 4 % 1 application as needed Externally Three times a day Active Comment on above: Apply to affected ar ea three times daily as needed. pravastatin sodium 40 mg oral tablet (5 sources) HMG-CoA Reductase Inhibitor Start: 06-29-19 End: 09-14-19 22 take 40 mg by mouth once daily at bedtime Pravastatin Discontinued 40 MG PO Daily at bedtime June 27, 2020 11:00pm September 13, 2021 11:01am Comment on above: Take 40 mg by mouth once daily. Triamcinolone (8 sources) Corticosteroid Start: 05-30-19 22 Kenalog -40 mg May, 40 mg valbenazine 80 mg oral capsule (3 sources) Start: 06-29-19 End: 09-14-19 22 take 1 capsule by mouth once daily Valbenazine (Ingrezza) 80 mg Capsule Discontinued 80 MG PO Daily June 27, 2020 11:00pm September 13, 2021 11:01am Problems Active Problems Problem Classification Problem Date Documented Da te Episodic/Chronic Administrative/social admission (1 source) Lives in a detention; Translations: [Person living in residential institution] Episodic Anal and rectal conditions (1 source) Rectal prolapse; Translations: [RECTAL PROLAPSE] Onset: 3 Episodic Anxiety disorders (20 sources) Anxiety state; Translations: [Anxiety state, unspecified] Onset: 3 07-05-2020 Chronic Chronic kidney disease (1 source) Chronic kidney disease; Translations: [Chronic kidney disease, unspecified] Chronic Disorders of lipid metabolism (20 sources) Hyperlipidemia; Translations: [Other and unspecified hyperlipidemia] Onset: 2 Resolved: 2 Chronic E Codes: Fall (4 sources) Unspecified fall, initial encounter; Translations: [Other fall on same level, initial encounter] Onset: 2 Episodic Esophageal disorders (1 source) Gastro-esophageal reflux disease without esophagitis; Translations: [GERD WITHOUT ESOPHAGITIS] Onset: 3 Chronic Essential hypertension (14 sources) Benign essential hypertension; Translations: [Benign essential hypertension] Onset: 1 Resolved: 2 Chronic Fluid and electrolyte disorders (9 sources) Hypo-osmolality and hyponatremia; Translations: [Acute hyponatremia] Onset: 1 Resolved: 2 Episodic Gastrointestinal hemorrhage (4 sources) Hemorrhage of anus and rectum; Translations: [HEMORRHAGE OF ANUS AND RECTUM] Onset: 2 Episodic Malaise and fatigue (1 source) Weakness; Translations: [WEAKNESS] Onset: 3 Episodic Menopausal disorders (1 source) Hormone replacement therapy; Translations: [HORMONE REPLACEMENT THERAPY] Onset: 3 Episodic Mood disorders (4 sources) Depressive disorder; Translations: [Depressive disorder, not elsewhere classified] 07-04-2020 Chronic Osteoarthritis (20 sources) Arthritis; Translations: [Arthritis] Onset: 2 Resolved: 2 Chronic Other aftercare (1 source) Other watermaster (current) drug therapy; Translations: [OTH ALF CURRENT DRUG THERAPY] Onset: 3 Episodic Other connective tissue disease (8 sources) History of reverse prosthetic total arthroplasty of right shoulder; Translations: [Presence of right artificial shoulder joint] Chronic Other connective tissue disease (6 sources) Presence of right artificial shoulder joint; Translations: [PRESENCE RT ARTIFICIAL SHOULDER JNT] Onset: 2 Resolved: 2 Chronic Other connective tissue disease (3 sources) Rhabdomyolysis; Translations: [Rhabdomyolysis] 06-30-2020 Episodic Other diseases of kidney and ureters (3 sources) Hydronephrosis; Translations: [Unspecified hydronephrosis] 06-30-2020 Episodic Other hereditary and degenerative nervous system conditions (2 sources) Orofacial dyskinesia; 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 Other hereditary and degenerative nervous system conditions (1 source) Restless legs syndrome; Translations: [RESTLESS LEGS SYNDROME] Onset: 3 Chronic Other hereditary and degenerative nervous system conditions (1 source) Tardive dyskinesia; Translations: [Drug induced subacute dyskinesia] Episodic Other hereditary and degenerative nervous system conditions (1 source) Drug induced subacute dyskinesia; Translations: [DRUG INDUCED SUBACUTE DYSKINESIA] Onset: 3 Episodic Other nervous system disorders (3 sources) Metabolic encephalopathy; Translations: [Metabolic encephalopathy] 06-30-2020 Chronic Other nervous system disorders (1 source) Other chronic pain; Translations: [OTHER CHRONIC PAIN] Onset: 2 Chronic Other nervous system disorders (3 sources) Abnormal movement; Translations: [Unspecified abnormal involuntary movements] 06-30-2020 Episodic Other nervous system disorders (1 source) Enhanced physiological tremor; Translations: [Tremor, unspecified] Episodic Other non-traumatic joint disorders (2 sources) Pain in left hip; Translations: [Pain in left hip] Onset: 3 Episodic Other nutritional; endocrine; and metabolic disorders (13 sources) Hypophosphatemia; Translations: [Other disorders of phosphorus metabolism] 06-30-2020 Chronic Other nutritional; endocrine; and metabolic disorders (13 sources) Hypocalcemia; Translations: [Hypocalcemia] 06-30-2020 Chronic Other nutritional; endocrine; and metabolic disorders (1 source) Body mass index less than 20; Translations: [Body Mass Index less than 19, adult] Episodic Other screening for suspected conditions (not mental disorders or infectious disease) (11 sources) Electrocardiogram abnormal; Translations: [Nonspecific abnormal electrocardiogram [ECG] [EKG]] Episodic Residual codes; unclassified (3 sources) Altered mental status; Translations: [Altered mental status, unspecified] 06-30-2020 Episodic Septicemia (except in labor) (3 sources) Sepsis; Translations: [Sepsis, unspecified organism] 06-30-2020 Episodic Superficial injury; contusion (1 source) Contusion of right shoulder, initial encounter; Translations: [CONTUSION RIGHT SHOULDER INITIAL] Onset: 3 Episodic Thyroid disorders (20 sources) Hypothyroidism; Translations: [Unspecified acquired hypothyroidism] Onset: 3 Chronic Unclassified (1 source) CONTACT W/AND (SUSP) EXPOS COVID-19; Translations: [CONTACT W/AND (SUSP) EXPOS COVID-19] Onset: 2 Unclassified (2 sources) LOW BACK PAIN, UNSPECIFIED; Translations: [LOW BACK PAIN, UNSPECIFIED] Onset: 2 Unclassified (1 source) Primary osteoarthritis, right shoulder; Translations: [Primary osteoarthritis, right shoulder] Onset: 3 Unclassified (1 source) Unspecified rotator cuff tear or rupture of right shoulder, not specified as traumatic; Translations: [Unspecified rotator cuff tear or rupture of right shoulder, not specified as traumatic] Onset: 2 Unclassified (1 source) Z96.611 - Presence of right artificial shoulder joint; Translations: [Z96.611 - Presence of right artificial shoulder joint] Onset: 2 Unclassified (1 source) M19.011 - Primary osteoarthritis, right shoulder; Translations: [M19.011 - Primary osteoarthritis, right shoulder] Onset: 2 Unclassified (1 source) Z01.812 - Encounter for preprocedural laboratory examination; Translations: [Z01.812 - Encounter for preprocedural laboratory examination] Onset: 2 Viral infection (3 sources) Disease caused by 2019-nCoV; Translations: [COVID-19] 06-30-2020 Episodic Viral infection (4 sources) COVID-19; Translations: [COVID-19] Onset: 3 Past or Other Problems Problem Classification Problem Date Documented Date Episodic/Chronic Deficiency and other anemia (1 source) Anemia, unspecified Onset: 03-22-2021 Resolved: 03-22-2021 Episodic Nausea and vomiting (4 sources) Nausea; Translations: [Nausea with vomiting, unspecified] Onset: 02-23-2022 Episodic Other connective tissue disease (15 sources) Unspecified rotator cuff tear or rupture of right shoulder, not specified as traumatic; Translations: [Tear of right rotator cuff, unspecified tear extent, unspecified whether traumatic] Onset: 05-30-2021 Resolved: 12-04-2021 Episodic Other diseases of kidney and ureters (2 sources) Unspecified hydronephrosis Onset: 03-22-2021 Resolved: 12-06-2021 Episodic Other non-traumatic joint disorders (6 sources) Pain in right shoulder; Translations: [PAIN IN RIGHT SHOULDER] Onset: 05-30-2021 Resolved: 05-30-2021 Episodic Other nutritional; endocrine; and metabolic disorders (1 source) Abnormal weight loss Onset: 03-22-2021 Resolved: 03-22-2021 Episodic Residual codes; unclassified (1 source) Other specified postprocedural states Onset: 10-17-2021 Resolved: 10-17-2021 Episodic Screening and history of mental health and substance abuse codes (2 sources) Ex-smoker; Translations: [Personal history of tobacco use] Onset: 01-30-2022 Episodic Comment on above: Quit in ; Spondylosis; intervertebral disc disorders; other back problems (1 source) Cervicalgia; Translations: [CERVICALGIA] Onset: 08-23-2021 Episodic Sprains and strains (1 source) Strain of muscle, fascia and tendon of lower back, initial encounter; Translations: [STRAIN MUSC FASC TENDON LW BACK INT] Onset: 08-23-2021 Episodic Unclassified (1 source) LOW BACK PAIN, UNSPECIFIED; Translations: [LOW BACK PAIN, UNSPECIFIED] Onset: 08-22-2021 Results Test Name Value Interpretation Reference Range Facility Office Visiton 03-04-2023 Follow-up visit [id number] Melanie Espinoza 1955 F Date Provider Department Center 03/04/2023 [facility] Family History Family history unknown: Yes Level of Service:99382 [place] OFFICE/OUTPATIENT ESTABLISHED LOW MDM 20-29 MIN Reason for Visit and Comments: Pain [136] Normal [facility] CNOVon 01-08-2023 CNOV Office Visit ([facility]) MELANIE ESPINOZA ([id number]) 1955 F Date Time Provider Department 01/08/23 2:00 PM [facility] During your visit today, we recorded the following information about you: Pulse Blood pressure Weight Height 83/minute 150/72 44.5 kg 1.6 m Tai Hinojosa MD 01/08/2023 2:41 PM Signed January 08, 2023 Tai Hinojosa MD [address] / [address] [address] Esteban Garza MD ([facility]) [address] [place] [id number] Melanie Espinoza : 1955 Interval History: Melanie Espinoza is a 67 year old woman with a 5 year history of facial - and now body - dyskinesias returning for follow up. The patient is seen alone. The tremoring is getting worse. Increasing the Austedo to 24 was helpful. There is no side effect. She has some walking difficulty, but this is in part due to her hip issues. She still tolerates primidone 250 mg bid. She tolerates Klonopin 1 mg tid with no sleepiness - she further still needs a sleeping pill at night. She feels that her memory is pretty good. Her methocarbamol was switched to flexeril for insurance reasons. Allergies: ALLERGIES No Known Allergies Current Medications: busPIRone (BUSPAR) 10 mg tablet Take 10 mg by mouth three times daily. deutetrabenazine (AUSTEDO) 12 mg tab Take 2 tablets (24 mg) by mouth twice daily with meals. amLODIPine (NORVASC) 5 mg tablet Take by mouth once daily. atorvastatin (LIPITOR) 40 mg tablet Take 40 mg by mouth once daily. menthol (BIOFREEZE, MENTHOL,) 4 % topical gel Apply to affected area three times daily as needed. calcium carbonate (CALTRATE) 600 mg calcium (1,500 mg) tab Take 600 mg by mouth. Fluticasone Propionate 50 mcg/actuation diskus inhaler Inhale 1 Puff as instructed twice daily. alendronate (FOSAMAX) 70 mg tablet Take 70 mg by mouth one time a week. In AM with cup of water on empty stomach. Nothing else by mouth and stay upright for 30 min. loperamide (IMODIUM) 2 mg cap(s) Take 2 mg by mouth four times daily as needed. polyethylene glycol 3350 17 gram/dose powder Take by mouth once daily. Dissolve dose in 4 - 8 ounces of liquid and take as directed. pantoprazole DR (PROTONIX) 40 mg tablet Take 40 mg by mouth once daily. sodium chloride 1 g tab Take 1 g by mouth three times daily. sucralfate (CARAFATE) 1 gram tablet Take 1 g by mouth four times daily. acetaminophen (TYLENOL) 500 mg tablet Take 500 mg by mouth every 8 hours as needed. ondansetron (ZOFRAN) 4 mg tablet Take by mouth every 8 hours as needed for nausea/vomiting. clonazePAM (KLONOPIN) 1 mg tablet Take 1 tablet by mouth three times daily for 90 days. [including bedtime] gabapentin (NEURONTIN) 300 mg capsule Take 1 capsule in the morning, one in early afternoon, and 2 in the evening primidone (MYSOLINE) 250 mg tablet Take 1 tablet by mouth twice daily. cyclobenzaprine (FLEXERIL) 10 mg tablet guaiFENesin-dextromet horphan (ROBITUSSIN DM) 100-10 mg/5 mL syrup Take 10 mL by mouth every 6 hours as needed. levothyroxine (SYNTHROID) 75 mcg tablet traZODone (DESYREL) 100 mg tablet HYDROcodone-acetamino phen (NORCO) 5-325 mg per tablet Take 1 tablet by mouth every 8 hours as needed for pain. (Patient not taking: Reported on 01/08/2023) gabapentin (NEURONTIN) 600 mg tablet Take 600 mg by mouth three times daily. (Patient not taking: Reported on 01/08/2023) busPIRone (BUSPAR) 15 mg tablet Take 15 mg by mouth three times daily. (Patient not taking: Reported on 01/08/2023) clonazePAM (KLONOPIN) 1 mg tablet Take 1 mg by mouth twice daily as needed. (Patient not taking: Reported on 01/08/2023) ferrous sulfate 325 mg (65 mg iron) tablet Take 325 mg by mouth daily with breakfast. (Patient not taking: Reported on 01/08/2023) Ibuprofen 200 mg cap Take by mouth every 6 hours as needed. (Patient not taking: Reported on 01/08/2023) methocarbamol (ROBAXIN) 750 mg tablet Take 750 mg by mouth four times daily. (Patient not taking: Reported on 01/08/2023) busPIRone (BUSPAR) 5 mg tablet Take 1 tablet by mouth three times daily. (Patient taking differently: Take 10 mg by mouth three times daily. ) escitalopram oxalate (LEXAPRO) 20 mg tablet Take 20 mg by mouth once daily. alendronate (FOSAMAX) 70 mg tablet once each week. pravastatin (PRAVACHOL) 40 mg tablet Take 40 mg by mouth once daily. Magnesium 250 mg tab Take 250 mg by mouth. (Patient not taking: Reported on 01/08/2023) ascorbic acid, vitamin C, (VITAMIN C WITH NOVA HIPS) 500 mg tablet Take 500 mg by mouth once daily. Ferrous Sulfate 325 mg (65 mg iron) cpER Take by mouth. pantoprazole DR (PROTONIX) 40 mg tablet Take 40 mg by mouth twice daily. Review of Systems: She has been having heartburn is supposed to have an EGD There is no CP (more content not included)... Normal [facility] CNOVon 07-03-2022 CNOV Office Visit ([facility]) MELANIE ESPINOZA ([id number]) 1955 F Date Time Provider Department 07/03/22 12:00 PM [facility] During your visit today, we recorded the following information about you: Pulse Blood pressure Weight 88/minute 135/82 49.9 kg Tai Hinojosa MD 07/03/2022 12:35 PM Signed July 03, 2022 Tai Hinojosa MD [address] / [address] [address] Esteban Garza MD ([facility]) [facility] [place] [address] Melanie Espinoza : 1955 Interval History: Melanie Espinoza is a 67 year old woman with a 4.5 year history of facial - and now body - dyskinesias returning for follow up. The patient is seen alone. She tolerated the increase of Austedo to 18 mg, and there is an improvement in her movement. There is no side effect. She is not sleepy during the day. She can walk with a walker. Allergies: ALLERGIES No Known Allergies Current Medications: HYDROcodone-acetamino phen (NORCO) 5-325 mg per tablet Take 1 tablet by mouth every 8 hours as needed for pain. busPIRone (BUSPAR) 10 mg tablet Take 10 mg by mouth three times daily. gabapentin (NEURONTIN) 600 mg tablet Take 600 mg by mouth three times daily. amLODIPine (NORVASC) 5 mg tablet Take by mouth once daily. atorvastatin (LIPITOR) 40 mg tablet Take 40 mg by mouth once daily. menthol (BIOFREEZE, MENTHOL,) 4 % topical gel Apply to affected area three times daily as needed. busPIRone (BUSPAR) 15 mg tablet Take 15 mg by mouth three times daily. calcium carbonate (CALTRATE) 600 mg calcium (1,500 mg) tab Take 600 mg by mouth. clonazePAM (KLONOPIN) 1 mg tablet Take 1 mg by mouth twice daily as needed. ferrous sulfate 325 mg (65 mg iron) tablet Take 325 mg by mouth daily with breakfast. Fluticasone Propionate 50 mcg/actuation diskus inhaler Inhale 1 Puff as instructed twice daily. alendronate (FOSAMAX) 70 mg tablet Take 70 mg by mouth one time a week. In AM with cup of water on empty stomach. Nothing else by mouth and stay upright for 30 min. Ibuprofen 200 mg cap Take by mouth every 6 hours as needed. loperamide (IMODIUM) 2 mg cap(s) Take 2 mg by mouth four times daily as needed. levothyroxine 75 mcg cap Take 75 mcg by mouth daily before breakfast. methocarbamol (ROBAXIN) 750 mg tablet Take 750 mg by mouth four times daily. polyethylene glycol 3350 17 gram/dose powder Take by mouth once daily. Dissolve dose in 4 - 8 ounces of liquid and take as directed. pantoprazole DR (PROTONIX) 40 mg tablet Take 40 mg by mouth once daily. sodium chloride 1 g tab Take 1 g by mouth three times daily. sucralfate (CARAFATE) 1 gram tablet Take 1 g by mouth four times daily. traZODone (DESYREL) 150 mg tablet Take 150 mg by mouth daily at bedtime. acetaminophen (TYLENOL) 500 mg tablet Take 500 mg by mouth every 8 hours as needed. gabapentin (NEURONTIN) 300 mg capsule Take 1 capsule in the morning, one in early afternoon, and 2 in the evening primidone (MYSOLINE) 250 mg tablet Take 1 tablet by mouth twice daily. Magnesium 250 mg tab Take 250 mg by mouth. ondansetron (ZOFRAN) 4 mg tablet Take by mouth every 8 hours as needed for nausea/vomiting. deutetrabenazine (AUSTEDO) 12 mg tab Take 1 tablet (12 mg) by mouth twice daily with meals. deutetrabenazine (AUSTEDO) 9 mg tab Take 2 tablets (18 mg) by mouth twice daily with meals. clonazePAM (KLONOPIN) 1 mg tablet Take 1 tablet by mouth three times daily for 90 days. [including bedtime] busPIRone (BUSPAR) 5 mg tablet Take 1 tablet by mouth three times daily. (Patient taking differently: Take 10 mg by mouth three times daily. ) escitalopram oxalate (LEXAPRO) 20 mg tablet Take 20 mg by mouth once daily. alendronate (FOSAMAX) 70 mg tablet once each week. pravastatin (PRAVACHOL) 40 mg tablet Take 40 mg by mouth once daily. ascorbic acid, vitamin C, (VITAMIN C WITH NOVA HIPS) 500 mg tablet Take 500 mg by mouth once daily. Ferrous Sulfate 325 mg (65 mg iron) cpER Take by mouth. levothyroxine (SYNTHROID) 100 mcg tablet Take 100 mcg by mouth once daily. pantoprazole DR (PROTONIX) 40 mg tablet Take 40 mg by mouth twice daily. Review of Systems: There is no CP, SOB, N/V/C/D, urinary issues, headache, vision change, mood change, or skin issues No other medical issues Physical Examination: General Description of Patient: constantly moving in her chair Blood pressure 135/82, pulse 88, weight 49.9 kg (110 lb), SpO2 95 %. FOCUSED NEUROLOGIC EXAMINATION: Mental Status: Alert and Oriented to person, place, and date Cranial Nerves: clear voice, not shaky; lips continue to move Motor: no significant action tremor, but there is slight quivering; otherwise she moves her arms around Coordination: no action tremor, just constant moving, even lifting he (more content not included)... Normal [facility] XR shoulder RT min 2V*on XR shoulder RT min 2V* [facility] [place] [address] [place] [address] XRay Report Signed Patient: Melanie Espinoza MR#: [id number] 6 : 1955 Acct:[id number] Age/Sex: 67 / F ADM Date: 06/18/22 Loc: [facility] [place] Room: Type: [facility] Attending Dr: Stevenson Corbin MD Copies to: Stevenson Corbin MD Ordering Provider: Stevenson Corbin MD Date of Service: 06/18/22 XR/XR shoulder RT min 2V*: Arthritis of right glenohumeral joint RIGHT SHOULDER - - 4 views CLINICAL HISTORY: Follow-up for total shoulder arthroplasty COMPARISON: Right shoulder 01/29/2022 FINDINGS: No evidence of hardware complication or acute bony process. XR/XR shoulder RT min 2V* IMPRESSION: No acute bony process. Impression dictated by: Tai Taylor Jr., D.O.06/18/2022 4:21 PM Dictation Location: [place] [address] Transcribed By: [facility] 06/18/22 162 Dictated By: Tai Taylor Jr, DO 06/18/22 162 Signed By: 06/18/22 162 [facility] XR SHOULDER RT 2V or >on XR SHOULDER RT 2V or > EXAM: XR SHOULDER RT 2V or > HISTORY: Pain of right shoulder joint COMPARISON: 01/27/2022 TECHNIQUE: 3 views of the right shoulder. FINDINGS: Right-sided reverse shoulder arthroplasty hardware and anatomic alignment. No evidence of hardware complication. No evidence of dislocation. Remote right-sided rib fractures. IMPRESSION: No acute findings. Electronically authenticated by: SIMON ANDRADE Date: 2022-06-04 10:57 Normal [facility] CBC AUTO DIFFon 04-19-2022 BASO # 0.0 103/ul Normal 0.0-0.1 [facility] Comment on above: Performed By: #### C BC #### [facility] [address] [place] [address] Dr. Miranda Claudio Basophils/100 WBC (Bld) 0.2 % Normal 0.2-2.0 [facility] Comment on above: Performed By: #### C BC #### [facility] [address] [place] [address] Dr. Miranda Claudio EO # 0.0 103/ul Normal 0.0-0.7 [facility] Comment on above: Performed By: #### C BC #### [facility] [address] [place] [address] Dr. Miranda Claudio Eosinophils/100 WBC (Bld) 0.4 % Critically low 0.9-7.0 [facility] Comment on above: Performed By: #### C BC #### [facility] [address] [place] [address] Dr. Miranda Claudio Erythrocyte distribution width (RBC) [Ratio] 13.7 % Normal 11.0-15.0 [facility] Comment on above: Performed By: #### C BC #### [facility] [address] [place] [address] Dr. Miranda Claudio Hematocrit (Bld) [Volume fraction] 33.6 % Critically low 36.0-48.0 [facility] Comment on above: Performed By: #### C BC #### [facility] [address] [place] [address] Dr. Miranda Claudio Hemoglobin (Bld) [Mass/Vol] 11.4 g/dL Critically low 12.0-16.0 [facility] Comment on above: Performed By: #### C BC #### [facility] [address] [place] [address] Dr. Miranda Claudio IG # 0.02 10e3/ul Normal 0.00-0.03 [facility] Comment on above: Performed By: #### C BC #### [facility] [address] [place] [address] Dr. Miranda Claudio IG % 0.4 % Normal 0.0-0.5 [facility] Comment on above: Performed By: #### C BC #### [facility] [address] [place] [address] Dr. Miranda Claudio LYMPH # 0.9 103/ul Critically low 1.2-3.8 [facility] Comment on above: Performed By: #### C BC #### [facility] [address] [place] [address] Dr. Miranda Claudio Lymphocytes/100 WBC (Bld) 18.4 % Critically low 20.5-60.0 [facility] Comment on above: Performed By: #### C BC #### [facility] [address] [place] [address] Dr. Miranda Claudio MANUAL DIFF REQ NO Normal [facility] Comment on above: Performed By: #### C BC #### [facility] [address] [place] [address] Dr. Miranda Claudio MCH (RBC) [Entitic mass] 26.5 pg Critically low 26.7-34.0 [facility] Comment on above: Performed By: #### C BC #### [facility] [address] [place] [address] Dr. Miranda Claudio MCHC (RBC) [Mass/Vol] 33.9 g/dL Normal 29.9-35.2 [facility] Comment on above: Performed By: #### C BC #### [facility] [address] [place] [address] Dr. Miranda Claudio MCV (RBC) [Entitic vol] 78.0 fL Critically low 81.0-99.0 [facility] Comment on above: Performed By: #### C BC #### [facility] [address] [place] [address] Dr. Miranda Claudio MONO # 0.6 103/ul Normal 0.3-0.8 [facility] Comment on above: Performed By: #### C BC #### [facility] [address] [place] [address] Dr. Miranda Claudio Monocytes/100 WBC (Bld) 11.7 % Normal 1.7-12.0 [facility] Comment on above: Performed By: #### C BC #### [facility] [address] [place] [address] Dr. Miranda Claudio NEUT # 3.3 103/ul Normal 1.4-6.5 [facility] Comment on above: Performed By: #### C BC #### [facility] [address] [place] [address] Dr. Miranda Claudio Neutrophils/100 WBC (Bld) 68.9 % Normal 43.0-75.0 [facility] Comment on above: Performed By: #### C BC #### [facility] [address] [place] [address] Dr. Miranda Claudio Platelet mean volume (Bld) [Entitic vol] 8.1 fL Critically low 9.5-13.5 [facility] Comment on above: Performed By: #### C BC #### [facility] [address] [place] [address] Dr. Miranda Claudio PLT 394 103/ul Normal 150-450 [facility] Comment on above: Performed By: #### C BC #### [facility] [address] [place] [address] Dr. Miranda Claudio RBC 4.31 106/ul Normal 4.20-5.40 [facility] Comment on above: Performed By: #### C BC #### [facility] [address] [place] [address] Dr. Miranda Claudio WBC 4.8 103/ul Normal 4.0-11.0 [facility] Comment on above: Performed By: #### C BC #### [facility] [address] [place] [address] Dr. Miranda Claudio PROF 14(COMP METB)on 023 Albumin [Mass/Vol] 2.7 g/dL Critically low 3.4-5.0 [facility] Comment on above: Performed By: #### C MP #### [facility] [address] [place] [address] Dr. Miranda Claudio Albumin/Globulin [Mass ratio] 0.8 {ratio} Normal [facility] Comment on above: Performed By: #### C MP #### [facility] [address] [place] [address] Dr. Miranda Claudio ALP [Catalytic activity/Vol] 64 U/L Normal 46-116 [facility] Comment on above: Performed By: #### C MP #### [facility] [address] [place] [address] Dr. Miranda Claudio ALT [Catalytic activity/Vol] 33 U/L Normal 14-59 [facility] Comment on above: Performed By: #### C MP #### [facility] [address] [place] [address] Dr. Miranda Claudio Anion gap [Moles/Vol] 12.1 mmol/L Normal [facility] Comment on above: Performed By: #### C MP #### [facility] [address] [place] [address] Dr. Miranda Claudio AST [Catalytic activity/Vol] 64 U/L Critically high 15-37 [facility] Comment on above: Performed By: #### C MP #### [facility] [address] [place] [address] Dr. Miranda Claudio Bilirubin [Mass/Vol] 0.2 mg/dL Normal 0.2-1.0 [facility] Comment on above: Performed By: #### C MP #### [facility] [address] [place] [address] Dr. Miranda Claudio Calcium [Mass/Vol] 7.9 mg/dL Critically low 8.5-10.1 [facility] Comment on above: Performed By: #### C MP #### [facility] [address] [place] [address] [address] Miranda Claudio Chloride [Moles/Vol] 98 mmol/L Normal 98-107 [facility] Comment on above: Performed By: #### C MP #### [facility] [address] [place] [address] [address] Miranda Claudio CO2 [Moles/Vol] 26.7 mmol/L Normal 21.0-32.0 [facility] Comment on above: Performed By: #### C MP #### [facility] [address] [place] [address] [address] Miranda Claudio Creatinine [Mass/Vol] 0.44 mg/dL Critically low 0.55-1.02 [facility] Comment on above: Performed By: #### C MP #### [facility] [address] [place] [address] Dr. Miranda Claudio EGFR-AF LITHUANIAN >60 Normal >=60 [facility] Comment on above: Performed By: #### C MP #### [facility] [address] [place] [address] [address] Miranda Claudio EGFR-NON AF LITHUANIAN >60 Normal >=60 [facility] Comment on above: Performed By: #### C MP #### [facility] [address] [place] [address] Dr. Miranda lCaudio Globulin (S) [Mass/Vol] 3.3 g/dL Normal [facility] Comment on above: Performed By: #### C MP #### [facility] [address] [place] [address] [address] Miranda Claudio Glucose [Mass/Vol] 78 mg/dL Normal 74-106 [facility] [facility] Comment on above: Performed By: #### C MP #### [facility] [address] [place] [address] Dr. Miranda Claudio Potassium [Moles/Vol] 2.8 mmol/L Critically low 3.5-5.1 [facility] Comment on above: Performed By: #### C MP #### [facility] [address] [place] [address] Dr. Miranda Claudio Protein [Mass/Vol] 6.0 g/dL Critically low 6.4-8.2 [facility] Comment on above: Performed By: #### C MP #### [facility] [address] [place], [place] [address] Dr. Miranda Claudio Sodium [Moles/Vol] 134 mmol/L Critically low 136-145 [facility] Comment on above: Performed By: #### C MP #### [facility] [address] [place], [place] [address] Dr. Miranda Claudio Urea nitrogen [Mass/Vol] 4.0 mg/dL Critically low 7.0-18.0 [facility] Comment on above: Performed By: #### C MP #### [facility] [address] [place], [place] [address] Dr. Miranda Claudio Urea nitrogen/Creatinine [Mass ratio] 9.1 mg/mg Normal [facility] Comment on above: Performed By: #### C MP #### [facility] [address] [place], [place] [address] Dr. Miranda Claudio XR CHEST 1 Von 04-19-2022 XR CHEST 1 V EXAMINATION: XR CHES T 1 V HISTORY: COUGH COMPARISON: 01/27/2022 TECHNIQUE: AP portable FINDINGS: LUNGS: No significant pulmonary parenchymal abnormalities. VASCULATURE: No increased pulmonary vasculature. PLEURA: No pneumothorax, effusion, or pleural thickening. CARDIAC: No cardiomegaly or cardiac silhouette abnormality. MEDIASTINUM: No visible mass or adenopathy. Retrocardiac opacity, stable hiatal hernia BONES: No fracture or visible bone lesion. Stable remote right healed rib fractures. Right partial arthroplasty OTHER: Negative. IMPRESSION: No acute disease. Electronically authenticated by: CM RAMIREZ Date: 2022-04-19 07:08 Normal [facility] CARDIAC EMMA ADMITon 022 CK [Catalytic activity/Vol] 412 U/L Critically high 26-192 [facility] Comment on above: Performed By: #### C MADM, CMP ####[facility] [address] [place], [place] [address]RaDr. Miranda Claudio CK.MB [Mass/Vol] 19.37 ng/mL Critically high <=3.60 [facility] Comment on above: Performed By: #### C JESS, CMP ####[facility] [address] [place] [address]Dr. Miranda Claudio HSTROP 5.9 pg/mL Normal 4.0-51.3 [facility] Comment on above: Result Comment: CUT- OFF POINTS HAVE BEEN ESTABLISHED BASED ON THE FOURTH UNIVERSAL DEFINITIONS OF MYOCARDIAL INFARCTION. THE UPPER REFERENCE LIMIT (URL) OF TROPONIN, DEFINED THE 99TH PERCENTILE OF cTnI DISTRIBUTION IN A REFERENCE POPULATION, HAS BEEN CONFIRMED THE DECISION THRESHOLD FOR VA DIAGNOSIS. Performed By: #### C JESS, CMP ####[facility] [address] [place] [address]Dr. Miranda Claudio MARKEL 82 ng/mL Normal 9-82 [facility] Comment on above: Performed By: #### C JESS, CMP ####[facility] [address] [place] [address]Dr. Miranda Claudio CBC AUTO DIFFon 03-23-2022 BASO # 0.1 103/ul Normal 0.0-0.1 [facility] Comment on above: Performed By: #### C BC ####[facility] [address] [place] [address]Dr. Miranda González Basophils/100 WBC (Bld) 0.5 % Normal 0.2-2.0 [facility] Comment on above: Performed By: #### C BC ####[facility] [address] [place] [address]Dr. Miranda Claudio EO # 0.5 103/ul Normal 0.0-0.7 [facility] Comment on above: Performed By: #### C BC ####[facility] [address] [place] [id number]. Miranda González Eosinophils/100 WBC (Bld) 4.1 % Normal 0.9-7.0 [facility] Comment on above: Performed By: #### C BC ####[facility] [address] [place] [address]Dr. Miranda Claudio Erythrocyte distribution width (RBC) [Ratio] 13.9 % Normal 11.0-15.0 [facility] Comment on above: Performed By: #### C BC ####[facility] [address] [place] [address]Dr. Miranda Claudio Hematocrit (Bld) [Volume fraction] 35.1 % Critically low 36.0-48.0 [facility] Comment on above: Performed By: #### C BC ####[facility] [address] [place] [address]Dr. Miranda Claudio Hemoglobin (Bld) [Mass/Vol] 11.7 g/dL Critically low 12.0-16.0 [facility] Comment on above: Performed By: #### C BC ####[facility] [address] [place], [place] [address]DrSofía Claudio IG # 0.05 10e3/ul Critically high 0.00-0.03 [facility] Comment on above: Performed By: #### C BC ####[facility] [address] [place], [place] [address]Dr. Miranda Claudio IG % 0.4 % Normal 0.0-0.5 [facility] Comment on above: Performed By: #### C BC ####[facility] [address] [place], [place] [address]DrSofía Claudio LYMPH # 1.5 103/ul Normal 1.2-3.8 [facility] Comment on above: Performed By: #### C BC ####[facility] [address] [place], [place] [address]DrSofía Claudio Lymphocytes/100 WBC (Bld) 12.7 % Critically low 20.5-60.0 [facility] Comment on above: Performed By: #### C BC ####[facility] [address] [place], [place] [address]DrSofía Claudio MANUAL DIFF REQ NO Normal [facility] Comment on above: Performed By: #### C BC ####[facility] [address] [place] [address]Dr. Miranda Claudio MCH (RBC) [Entitic mass] 26.1 pg Critically low 26.7-34.0 [facility] Comment on above: Performed By: #### C BC ####[facility] [address] [place] [address]DrSofía Claudio MCHC (RBC) [Mass/Vol] 33.3 g/dL Normal 29.9-35.2 [facility] Comment on above: Performed By: #### C BC ####[facility] [address] [place] [address]DrSofía Claudio MCV (RBC) [Entitic vol] 78.3 fL Critically low 81.0-99.0 [facility] Comment on above: Performed By: #### C BC ####[facility] [address] [place], [place] [address]DrSofía Claudio MONO # 1.2 103/ul Critically high 0.3-0.8 [facility] Comment on above: Performed By: #### C BC ####[facility] [address] [place], [place] [address]DrSofía Claudio Monocytes/100 WBC (Bld) 10.5 % Normal 1.7-12.0 [facility] Comment on above: Performed By: #### C BC ####[facility] [address] [place], [place] [address]DrSofía Claudio NEUT # 8.3 103/ul Critically high 1.4-6.5 [facility] Comment on above: Performed By: #### C BC ####[facility] [address] [place], [place] [address]DrSofía Claudio Neutrophils/100 WBC (Bld) 71.8 % Normal 43.0-75.0 [facility] Comment on above: Performed By: #### C BC ####[facility] [address] [place], [place] [address]DrSofía Claudio Platelet mean volume (Bld) [Entitic vol] 8.5 fL Critically low 9.5-13.5 [facility] Comment on above: Performed By: #### C BC ####[facility] [address] [place], [place] [address]DrSofía Claudio PLT 349 103/ul Normal 150-450 [facility] Comment on above: Performed By: #### C BC ####[facility] [address] [place], [place] [address]LuSofía Claudio RBC 4.48 106/ul Normal 4.20-5.40 [facility] Comment on above: Performed By: #### C BC ####[facility] [address] [place], [place] [address]XzSofía Claudio WBC 11.6 103/ul Critically high 4.0-11.0 [facility] Comment on above: Performed By: #### C BC ####[facility] [address] [place], [place] [address]MvDr. Miranda Claudio Covid-19 PCR (CVDTB)on SARS-CoV-2 (COVID-19) RNA LARY+probe Ql (Unsp spec) Not detected Normal NOT DETECTED [facility] Comment on above: Result Comment: When diagnostic testing is negative, the possibility of a false negative should be considered in the context of a patient's recent exposures and the presence of clinical signs and symptoms consistent with SARS-CoV-2. This test is not yet approved or cleared by the [place] FDA. When there are no FDA-approved or cleared tests available, and other criteria are met, FDA can make tests available under an emergency access mechanism called an Emergency Use Authorization (EUA). The EUA for this test is supported by the Data Entry Assistant of Health and Human Service's declaration that circumstances exist to justify the emergency use of in vitro diagnostics for the detection and/or diagnosis of the virus that causes COVID-19. This EUA will remain in effect for the duration of the COVID-19 declaration justifying emergency of IVDs, unless it is terminated or revoked by the FDA (after which the test may no longer be used). Performed By: #### C VDTBH #### [facility] [address] [place], [place] [address] Dr. Miranda Claudio ER URINE PROFILEon 2 Bilirubin Ql (U) Negative Normal NEGATIVE [facility] Comment on above: Performed By: #### E RUR #### [facility] [address] [place] [address] Dr. Miranda Claudio Clarity (U) CLEAR Normal CLEAR [facility] Comment on above: Performed By: #### E RUR #### [facility] [address] [place] [address] Dr. Miranda Claudio Color (U) LT. YELLOW Normal YELLOW [facility] Comment on above: Performed By: #### E RUR #### [facility] [address] [place] [address] Dr. Miranda Claudio ERUAHD A micrscopic examination will be performed if indicated. Normal [facility] Comment on above: Performed By: #### E RUR #### [facility] [address] [place] [address] Dr. Miranda Claudio Glucose Ql (U) Negative Normal NEGATIVE [facility] Comment on above: Performed By: #### E RUR #### [facility] [address] [place] [address] Dr. Miranda Claudio Hemoglobin Ql (U) Negative Normal NEGATIVE [facility] Comment on above: Performed By: #### E RUR #### [facility] [address] [place] [address] Dr. Miranda Claudio Ketones Ql (U) Negative Normal NEGATIVE [facility] Comment on above: Performed By: #### E RUR #### [facility] [address] [place] [address] Dr. Miranda Claudio LEUKOCYTES Negative Normal NEGATIVE [facility] Comment on above: Performed By: #### E RUR #### [facility] [address] [place] [address] Dr. Mrianda Claudio Nitrite Ql (U) Negative Normal NEGATIVE [facility] Comment on above: Performed By: #### E RUR #### [facility] [address] [place] [address] Dr. Miranda Claudio pH (U) 6.5 [pH] Normal 5-9 [facility] Comment on above: Performed By: #### E RUR #### [facility] [address] [place] [address] Dr. Miranda Claudio SPEC GRAVITY <=1.005 Abnormal 1.005-<=1.025 [facility] Comment on above: Performed By: #### E RUR #### [facility] [address] [place] [address] Dr. Miranda Claudio UA PROTEIN Negative Normal NEGATIVE/ TRACE [facility] Comment on above: Performed By: #### E RUR #### [facility] [address] [place] [address] Dr. Miranda Claudio UR MICRO IND NOT INDICATED Normal [facility] Comment on above: Performed By: #### E RUR #### [facility] [address] [place] [address] Dr. Miranda Claudio Urobilinogen Qn (U) 0.2 {Muriel'U}/dL Normal 0.2 - 1. 0 [facility] Comment on above: Performed By: #### E RUR #### [facility] [address] [place] [address] Dr. Miranda Claudio LACTATE/LACTIC ACIDon 2021 Lactate [Moles/Vol] 0.9 mmol/L Normal 0.4-1.9 [facility] Comment on above: Performed By: #### L ACT #### [facility] [address] [place] [address] Dr. Miranda Claudio PROF 14(COMP METB)on 022 Albumin [Mass/Vol] 3.5 g/dL Normal 3.4-5.0 [facility] Comment on above: Performed By: #### C JESS, CMP #### [facility] [address] [place] [address] Dr. Miranda Claudio Albumin/Globulin [Mass ratio] 1.0 {ratio} Normal [facility] Comment on above: Performed By: #### C JESS, CMP #### [facility] [address] [place] [address] Dr. Miranda Claudio ALP [Catalytic activity/Vol] 73 U/L Normal 46-116 [facility] Comment on above: Performed By: #### C JESS, CMP #### [facility] [address] [place] [address] Dr. Miranda Claudio ALT [Catalytic activity/Vol] 16 U/L Normal 14-59 [facility] Comment on above: Performed By: #### C JESS, CMP #### [facility] [address] [place] [address] [address] Miranda Claudio Anion gap [Moles/Vol] 14.4 mmol/L Normal [facility] Comment on above: Performed By: #### C JESS, CMP #### [facility] [address] [place] [address] [address] Miranda Claudio AST [Catalytic activity/Vol] 26 U/L Normal 15-37 [facility] Comment on above: Performed By: #### C JESS, CMP #### [facility] [address] [place] [address] Dr. Miranda Claudio Bilirubin [Mass/Vol] 0.2 mg/dL Normal 0.2-1.0 [facility] Comment on above: Performed By: #### C JESS, CMP #### [facility] [address] [place] [address] Dr. Miranda Claudio Calcium [Mass/Vol] 8.3 mg/dL Critically low 8.5-10.1 [facility] Comment on above: Performed By: #### C JESS, CMP #### [facility] [address] [place] [address] Dr. Miranda Claudio Chloride [Moles/Vol] 93 mmol/L Critically low 98-107 [facility] Comment on above: Performed By: #### C JESS, CMP #### [facility] [address] [place] [address] Dr. Miranda Claudio CO2 [Moles/Vol] 23.5 mmol/L Normal 21.0-32.0 [facility] Comment on above: Performed By: #### C JESS, CMP #### [facility] [address] [place] [address] Dr. Miranda Claudio Creatinine [Mass/Vol] 0.54 mg/dL Critically low 0.55-1.02 [facility] Comment on above: Performed By: #### C MADM, CMP #### [facility] [address] [place] [address] [address] Miranda Claudio EGFR-AF LITHUANIAN >60 Normal >=60 [facility] Comment on above: Performed By: #### C JASWINDERM, CMP #### [facility] [address] [place] [address] [address] Miranda Claudio EGFR-NON AF LITHUANIAN >60 Normal >=60 [facility] Comment on above: Performed By: #### C JASWINDERM, CMP #### [facility] [address] [place] [address] [address] Miranda Claudio Globulin (S) [Mass/Vol] 3.6 g/dL Normal [facility] Comment on above: Performed By: #### C JASWINDERM, CMP #### [facility] [address] [place] [address] [address] Miranda Claudio Glucose [Mass/Vol] 91 mg/dL Normal 74-106 [facility] Comment on above: Performed By: #### C JASWINDERM, CMP #### [facility] [address] [place] [address] [address] Miranda Claudio Potassium [Moles/Vol] 3.9 mmol/L Normal 3.5-5.1 [facility] Comment on above: Performed By: #### C JESS, CMP #### [facility] [address] [place] [address] [address] Miranda Claudio Protein [Mass/Vol] 7.1 g/dL Normal 6.4-8.2 [facility] Comment on above: Performed By: #### C JASWINDERM, CMP #### [facility] [address] [place] [address] [address] Miranda Claudio Sodium [Moles/Vol] 127 mmol/L Critically low 136-145 [facility] Comment on above: Performed By: #### C JASWINDERM, CMP #### [facility] [address] [place] [address] [address] Miranda Claudio Urea nitrogen [Mass/Vol] 8.0 mg/dL Normal 7.0-18.0 [facility] Comment on above: Performed By: #### C JASWINDERM, CMP #### [facility] [address] [place], [place] [address] Dr. Miranda Claudio Urea nitrogen/Creatinine [Mass ratio] 14.8 mg/mg Normal [facility] Comment on above: Performed By: #### C JESS, CMP #### [facility] [address] [place], [place] [address] Dr. Miranda Claudio TYPE AND SCREENon 03-23-2022 TYPE AND SCREEN Negative Normal [facility] Comment on above: Performed By: #### T NS ####[facility] [address] [place], [place] [address]SlDr. Miranda Claudio NM HEPATOBILIARY SCAN W EFon 02-23-2022 NM HEPATOBILIARY SCAN W EF EXAMINATION: NM HEPATOBILIARY SCAN W EF HISTORY: Nausea and vomiting COMPARISON: No relevant comparison available. TECHNIQUE: Radionuclide hepatobiliary imaging was performed after intravenous injection of 4.9 mCi Tc-99m JOSUE derivative with sequential acquisitions every 1 minute for one hour. Hepatobiliary imaging with gallbladder ejection fraction analysis was then performed with sequential imaging every 1 minute for 60 minutes following ingestion of 8 oz. Ensure Plus. FINDINGS: LIVER: Normal, prompt and uniform radiotracer uptake and clearing. BILIARY DUCTS: Normal radioisotopic biliary excretion. GALLBLADDER: Normal with no evidence of cystic duct obstruction. INTESTINE: Normal with no evidence of common biliary ductal obstruction. EJECTION FRACTION: 96 % within 60 minutes. (Normal EF > 38%). OTHER: Negative. IMPRESSION: 1. Normal nuclear medicine HIDA scan. Electronically authenticated by: MESHA CARRASCO Date: 2022-02-23 11:03 Normal [facility] XR shoulder RT min 2V*on XR shoulder RT min 2V* [facility] [place] [address] XRay Report Signed Patient: Melanie Espinoza MR#: [id number] 6 : 1955 Acct:[id number] Age/Sex: 66 / F ADM Date: 01/29/22 Loc: [facility]XD Room: Type: [facility] Attending Dr: Stevenson Corbin MD Copies to: Stevenson Corbin MD Ordering Provider: Stevenson Corbin MD Date of Service: 01/29/22 XR/XR shoulder RT min 2V*: Tear of right rotator cuff, unspecified tear extent, unspeci RIGHT SHOULDER - 4 views CLINICAL HISTORY: Follow-up after shoulder replacement COMPARISON: 12/04/2021 AP, Y, axillary and Grashey views were obtained. There is a reverse shoulder prosthesis. The hardware appears intact and unchanged from the prior. There is no new fracture or dislocation. Old right rib fractures are again noted. There are no significant soft tissue abnormalities. XR/XR shoulder RT min 2V* IMPRESSION: STABLE SHOULDER REPLACEMENT Impression dictated by: Ligia Carrasquillo M.D.01/29/2022 2:27 PM Dictation Location: [facility] Transcribed By: [facility] 01/29/221426 Dictated By: Ligia Carrasquillo MD 01/29/221424 Signed By: 01/29/221426 [facility] CBC AUTO DIFFon 01-27-2022 BASO # 0.1 103/ul Normal 0.0-0.1 [facility] Comment on above: Performed By: #### C BC #### [facility] [address] [place] [address] Dr. Miranda Claudio Basophils/100 WBC (Bld) 0.7 % Normal 0.2-2.0 [facility] Comment on above: Performed By: #### C BC #### [facility] [address] [place] [address] Dr. Miranda Claudio EO # 0.4 103/ul Normal 0.0-0.7 [facility] Comment on above: Performed By: #### C BC #### [facility] [address] [place] [address] Dr. Miranda Claudio Eosinophils/100 WBC (Bld) 4.0 % Normal 0.9-7.0 [facility] Comment on above: Performed By: #### C BC #### [facility] [address] [place] [address] Dr. Miranda Claudio Erythrocyte distribution width (RBC) [Ratio] 14.2 % Normal 11.0-15.0 [facility] Comment on above: Performed By: #### C BC #### [facility] [address] [place] [address] Dr. Miranda Claudio Hematocrit (Bld) [Volume fraction] 39.9 % Normal 36.0-48.0 [facility] Comment on above: Performed By: #### C BC #### [facility] [address] [place] [address] Dr. Miranda Claudio Hemoglobin (Bld) [Mass/Vol] 13.0 g/dL Normal 12.0-16.0 [facility] Comment on above: Performed By: #### C BC #### [facility] [address] [place] [address] Dr. Miranda Claudio IG # 0.03 10e3/ul Normal 0.00-0.03 [facility] Comment on above: Performed By: #### C BC #### [facility] [address] [place] [address] Dr. Miranda Claudio IG % 0.3 % Normal 0.0-0.5 [facility] Comment on above: Performed By: #### C BC #### [facility] [address] [place] [address] Dr. Miranda Claudio LYMPH # 2.2 103/ul Normal 1.2-3.8 [facility] Comment on above: Performed By: #### C BC #### [facility] [address] [place] [address] Dr. Miranda Claudio Lymphocytes/100 WBC (Bld) 23.6 % Normal 20.5-60.0 [facility] Comment on above: Performed By: #### C BC #### [facility] [address] [place] [address] Dr. Miranda Claudio MANUAL DIFF REQ NO Normal [facility] Comment on above: Performed By: #### C BC #### [facility] [address] [place] [address] Dr. Miranda Claudio MCH (RBC) [Entitic mass] 27.1 pg Normal 26.7-34.0 [facility] Comment on above: Performed By: #### C BC #### [facility] [address] [place] [address] Dr. Miranda Claudio MCHC (RBC) [Mass/Vol] 32.6 g/dL Normal 29.9-35.2 [facility] Comment on above: Performed By: #### C BC #### [facility] [address] [place] [address] Dr. Miranda Claudio MCV (RBC) [Entitic vol] 83.1 fL Normal 81.0-99.0 [facility] Comment on above: Performed By: #### C BC #### [facility] [address] [place] [address] Dr. Miranda Claudio MONO # 0.8 103/ul Normal 0.3-0.8 [facility] Comment on above: Performed By: #### C BC #### [facility] [address] [place] [address] Dr. Miranda Claudio Monocytes/100 WBC (Bld) 8.5 % Normal 1.7-12.0 [facility] Comment on above: Performed By: #### C BC #### [facility] [address] [place] [address] Dr. Miranda Claudio NEUT # 5.9 103/ul Normal 1.4-6.5 [facility] Comment on above: Performed By: #### C BC #### [facility] [address] [place] [address] Dr. Miranda Claudio Neutrophils/100 WBC (Bld) 62.9 % Normal 43.0-75.0 [facility] Comment on above: Performed By: #### C BC #### [facility] [address] [place] [address] Dr. Miranda Claudio Platelet mean volume (Bld) [Entitic vol] 7.6 fL Critically low 9.5-13.5 [facility] Comment on above: Performed By: #### C BC #### [facility] [address] [place] [address] Dr. Miranda Claudio PLT 405 103/ul Normal 150-450 [facility] Comment on above: Performed By: #### C BC #### [facility] [address] [place] [address] Dr. Miranda Claudio RBC 4.80 106/ul Normal 4.20-5.40 [facility] Comment on above: Performed By: #### C BC #### [facility] [address] [place] [address] [address] Miranda Claudio WBC 9.4 103/ul Normal 4.0-11.0 [facility] Comment on above: Performed By: #### C BC #### [facility] [address] [place] [address] [address] Miranda Claudio ER URINE PROFILEon 2 Bilirubin Ql (U) Negative Normal NEGATIVE [facility] Comment on above: Performed By: #### U MICRO, ERUR ####[facility] [facility] [id number] [place] [address]Dr. Miranda Claudio Clarity (U) CLEAR Normal CLEAR [facility] Comment on above: Performed By: #### U MICRO, ERUR ####[facility] [address] [place] [address]Dr. Miranda Claudio Color (U) LT. YELLOW Normal YELLOW [facility] Comment on above: Performed By: #### U MICRO, ERUR ####[facility] [address] [place] [address]Dr. Miranda WICK A micrscopic examination will be performed if indicated. Normal [facility] Comment on above: Performed By: #### U MICRO, ERUR ####[facility] [address] [place] [address]Dr. Miranda Claudio Glucose Ql (U) Negative Normal NEGATIVE [facility] Comment on above: Performed By: #### U MICRO, ERUR ####[facility] [address] [place] [address]Dr. Miranda Claudio Hemoglobin Ql (U) TRACE-LYSED Abnormal NEGATIVE [facility] Comment on above: Performed By: #### U MICRO, ERUR ####[facility] [address] [place] [address]Dr. Miranda Claudio Ketones Ql (U) Negative Normal NEGATIVE [facility] Comment on above: Performed By: #### U MICRO, ERUR ####[facility] [address] [place] [address]Dr. Miranda González LEUKOCYTES Negative Normal NEGATIVE [facility] Comment on above: Performed By: #### U MICRO, ERUR ####[facility] [address] [place] [address]Dr. Miranda Claudio Nitrite Ql (U) Negative Normal NEGATIVE [facility] Comment on above: Performed By: #### U MICRO, ERUR ####[facility] [address] [place] [address]Dr. Miranda Claudio pH (U) 7.0 [pH] Normal 5-9 [facility] Comment on above: Performed By: #### U MICRO, ERUR ####[facility] [address] [place] [address]Dr. Miranda Claudio SPEC GRAVITY <=1.005 Abnormal 1.005-<=1.025 The [facility] Comment on above: Performed By: #### U MICRO, ERUR ####[facility] [address] [place] [address]Dr. Miranda Claudio UA PROTEIN Negative Normal NEGATIVE/ TRACE [facility] Comment on above: Performed By: #### U MICRO, ERUR ####[facility] [address] [place] [address]Dr. Miranda Claudio UR MICRO IND INDICATED Normal [facility] Comment on above: Performed By: #### U MICRO, ERUR ####[facility] [address] [place] [address]Dr. Miranda Claudio Urobilinogen Qn (U) 0.2 {Muriel'U}/dL Normal 0.2 - 1. 0 [facility] Comment on above: Performed By: #### U MICRO, ERUR ####[facility] [address] [place] [address]Dr. Miranda Claudio PROF 14(COMP METB)on 01-27- 022 Albumin [Mass/Vol] 3.5 g/dL Normal 3.4-5.0 [facility] Comment on above: Performed By: #### C MP #### [facility] [address] [place] [address] Dr. Miranda Claudio Albumin/Globulin [Mass ratio] 1.0 {ratio} Normal [facility] Comment on above: Performed By: #### C MP #### [facility] [address] [place] [address] Dr. Miranda Claudio ALP [Catalytic activity/Vol] 66 U/L Normal 46-116 [facility] Comment on above: Performed By: #### C MP #### [facility] [address] [place] [address] Dr. Miranda Claudio ALT [Catalytic activity/Vol] 15 U/L Normal 14-59 [facility] Comment on above: Performed By: #### C MP #### [facility] [address] [place] [address] Dr. Miranda Claudio Anion gap [Moles/Vol] 7.1 mmol/L Normal [facility] Comment on above: Performed By: #### C MP #### [facility] [address] [place] [address] Dr. Miranda Claudio AST [Catalytic activity/Vol] 16 U/L Normal 15-37 [facility] Comment on above: Performed By: #### C MP #### [facility] [address] [place] [address] Dr. Miranda Claudio Bilirubin [Mass/Vol] 0.1 mg/dL Critically low 0.2-1.0 [facility] Comment on above: Performed By: #### C MP #### [facility] [address] [place] [address] Dr. Miranda Claudio Calcium [Mass/Vol] 9.1 mg/dL Normal 8.5-10.1 [facility] Comment on above: Performed By: #### C MP #### [facility] [address] [place] [address] Dr. Miranda Claudio Chloride [Moles/Vol] 100 mmol/L Normal 98-107 [facility] Comment on above: Performed By: #### C MP #### [facility] [address] [place] [address] Dr. Miranda Claudio CO2 [Moles/Vol] 30.7 mmol/L Normal 21.0-32.0 [facility] Comment on above: Performed By: #### C MP #### [facility] [address] [place] [address] [address] Miranda Claudio Creatinine [Mass/Vol] 0.64 mg/dL Normal 0.55-1.02 [facility] Comment on above: Performed By: #### C MP #### [facility] [address] [address] [address] Miranda Claudio EGFR-AF LITHUANIAN >60 Normal >=60 [facility] Comment on above: Performed By: #### C MP #### [facility] [address] [place] [address] [address] Miranda Claudio EGFR-NON AF LITHUANIAN >60 Normal >=60 [facility] Comment on above: Performed By: #### C MP #### [facility] [address] [place] [address] Dr. Miranda Claudio Globulin (S) [Mass/Vol] 3.6 g/dL Normal [facility] Comment on above: Performed By: #### C MP #### [facility] [address] [place] [address] Dr. Miranda Claudio Glucose [Mass/Vol] 68 mg/dL Critically low 74-106 [facility] Comment on above: Performed By: #### C MP #### [facility] [address] [place] [address] Dr. Miranda Claudio Potassium [Moles/Vol] 3.8 mmol/L Normal 3.5-5.1 [facility] Comment on above: Performed By: #### C MP #### [facility] [address] [place] [address] Dr. Miranda Claudio Protein [Mass/Vol] 7.1 g/dL Normal 6.4-8.2 [facility] Comment on above: Performed By: #### C MP #### [facility] [address] [place] [address] Dr. Miranda Claudio Sodium [Moles/Vol] 134 mmol/L Critically low 136-145 [facility] Comment on above: Performed By: #### C MP #### [facility] [address] [address] [address] Miranda Claudio Urea nitrogen [Mass/Vol] 14.0 mg/dL Normal 7.0-18.0 [facility] Comment on above: Performed By: #### C MP #### [facility] [address] [address] [address] Miranda Claudio Urea nitrogen/Creatinine [Mass ratio] 21.9 mg/mg Normal [facility] Comment on above: Performed By: #### C MP #### [facility] [address] [address] [address] Miranda Claudio URINE MICROSCOPIC ONLYon BACTERIA NONE SEEN Normal NONE SEEN [facility] Comment on above: Performed By: #### U MICRO, ERUR ####[facility] [address] [place] [address]Dr. Miranda Claudio Bacteria identified Cx Nom (U) NOT INDICATED Normal [facility] Comment on above: Performed By: #### U MICRO, ERUR ####[facility] [address] [place] [address]Dr. Miranda Claudio CAST NONE SEEN Normal NONE SEEN [facility] Comment on above: Performed By: #### U MICRO, ERUR ####[facility] [address] [place] [address]Dr. Miranda Claudio Crystals LM Nom (Urine sed) NONE SEEN Normal NONE SEEN [facility] Comment on above: Performed By: #### U MICRO, ERUR ####[facility] [address] [place] [address]Dr. Miranda Claudio Epithelial cells LM Ql (Urine sed) NONE SEEN Normal NONE SEEN /RARE [facility] Comment on above: Performed By: #### U MICRO, ERUR ####[facility] [address] [place] [address]Dr. Miranda Claudio MUCOUS SMALL Abnormal NONE SEEN [facility] Comment on above: Performed By: #### U MICRO, ERUR ####[facility] [address] [place] [address]Dr. Miranda Claudio RBC 0-2 Normal 0-2 [facility] Comment on above: Performed By: #### U MICRO, ERUR ####[facility] [address] [place], [place] [address]Lq. Miranda Claudio WBC NONE SEEN Normal NONE SEEN [facility] Comment on above: Performed By: #### U MICRO, ERUR ####[facility] [address] [place], [place] [address]Jk. Miranda Claudio XR CHEST 1 Von 01-27-2022 XR CHEST 1 V EXAM: XR CHEST 1 V HISTORY: . COUGH . COMPARISON: 01/03/2021 TECHNIQUE: AP portable upright view of the chest FINDINGS: Heart and vascularity are unremarkable. Lungs are free of focal infiltrates. No pneumothorax is identified. Old healed rib fractures are noted involving the right fifth and sixth ribs posteriorly. Right shoulder arthroplasty is noted. IMPRESSION: 1. No acute heart or lung disease identified. 2. Old healed rib fractures involving the right fifth and sixth ribs posteriorly Electronically authenticated by: CM ROBLES Date: 2022-01-27 20:30 Normal [facility] XR SHOULDER RT 2V or >on XR SHOULDER RT 2V or > IMAGES REVIEWED: XR SHOULDER RT 2V or > COMPARISON: 12/27/2021. CLINICAL INDICATION: Pain FINDINGS/IMPRESSION: 1. No evidence of acute osseous abnormality of the right shoulder. 2. 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 3. Old right rib fractures. 4. Osteopenia. Electronically authenticated by: SARAH MOMIN Date: 2022-01-27 20:42 Normal [facility] XR SCAPULA RTon 12-27-2021 XR SCAPULA RT EXAM: XR SHOULDER RT 2V or >, XR SCAPULA RT HISTORY: History of fall COMPARISON: 06/29/2021. TECHNIQUE: 3 views of the right shoulder/scapula FINDINGS/IMPRESSION: Mineralization: Within normal limits. Bones: No acute fractures or dislocations. Chronic fifth and sixth posterior rib fractures. Joints: Right total shoulder reverse arthroplasty. Maintained alignment. No perihardware lucency or fracture. Normal AC joint. Soft Tissues: Unremarkable. Electronically authenticated by: SANTIAGO HELMS Date: 2021-12-27 12:55 Normal [facility] XR shoulder RT min 2V*on XR shoulder RT min 2V* [facility] Main [address] [address] XRay Report Signed Patient: Melanie Espinoza MR#: [id number] 6 : 1955 Acct:[id number] Age/Sex: 66 / F ADM Date: 12/04/21 Loc: [facility] Room: Type: [facility] CLI Attending Dr: Stevenson Corbin MD Copies to: Stevenson Corbin MD Ordering Provider: Stevenson Corbin MD Date of Service: 12/04/21 XR/XR shoulder RT min 2V*: Tear of right rotator cuff, unspecified tear extent, unspeci 3 views plain filmRIGHT shoulder HISTORY:Postop assessment for RIGHT shoulder arthroplasty COMPARISON:None No fracture, dislocation or soft tissue abnormality identified.No hardware failure loosening identified. Old RIGHT rib fractures. XR/XR shoulder RT min 2V* IMPRESSION:Stable findings Impression dictated by: Erick Carranza M.D.12/04/2021 2:33 PM Dictation Location: [place] [address] Transcribed By: [facility] 12/04/21 1433 Dictated By: Erick Carranza DO 12/04/21 1426 Signed By: 12/04/21 1433 Normal [facility] XR shoulder RT min 2V*on XR shoulder RT min 2V* [facility] Main [address] [address] XRay Report Signed Patient: Melanie Espinoza MR#: [id number] 6 : 1955 Acct:[id number] Age/Sex: 66 / F ADM Date: 10/26/21 Loc: [facility] [place] [facility]: [facility] Attending Dr: Stevenson Corbin MD Copies to: Stevenson Corbin MD Ordering Provider: Stevenson Corbin MD Date of Service: 10/26/21 XR/XR shoulder RT min 2V*: Status post reverse total arthroplasty of right shoulder RIGHT SHOULDER - - 3 views CLINICAL HISTORY: Reverse right total shoulder prosthesis. COMPARISON: Right shoulder 10/18/2021 FINDINGS: Soft tissues demonstrate persisting gas. Right shoulder prosthesis is in place without radiographic complication. No acute bony process. XR/XR shoulder RT min 2V* IMPRESSION: NO EVIDENCE OF HARDWARE COMPLICATION. Impression dictated by: Tai Taylor Jr., D.O.10/26/2021 10:32 AM Dictation Location: RADIO-PC-11 Transcribed By: [facility] 10/26/21 1032 Dictated By: Tai Taylor Jr, DO 10/26/21 1031 Signed By: 10/26/21 1032 [facility] XR shoulder RT min 2V*on XR shoulder RT min 2V* [facility] Main [place] [address] [place] [address] XRay Report Signed Patient: Melanie Espinoza MR#: [id number] 6 : 1955 Acct:[id number] Age/Sex: 66 / F ADM Date: 10/18/21 Loc: [place] Room: Type: [facility] Attending Dr: Stevenson Corbin MD Copies to: Stevenson Corbin MD Ordering Provider: Stevenson Corbin MD Date of Service: 10/18/21 XR/XR shoulder RT min 2V*: Post op shoulder replacement RIGHT SHOULDER - 3 views CLINICAL HISTORY: Follow-up after shoulder replacement COMPARISON: 05/30/2021 AP, Y and Grashey views were obtained. A new reverse shoulder prosthesis is present. The hardware appears intact and in appropriate position. There is no acute shoulder fracture or dislocation. There are old rib fractures. Postoperative subcutaneous air is seen. XR/XR shoulder RT min 2V* IMPRESSION: POSTOPERATIVE CHANGES OF INTERVAL SHOULDER REPLACEMENT. Impression dictated by: Ligia Carrasquillo M.D.10/18/2021 11:42 AM Dictation Location: RADIO-PC-11 Transcribed By: [facility] 10/18/21 1142 Dictated By: Ligia Carrasquillo MD 10/18/21 1139 Signed By: 10/18/21 1142 [facility] COVID[facility]19 [facility] SARS-CoV-2 (COVID-19) RNA LARY+probe Ql (Unsp spec) Negative Normal Negative [facility] Comment on above: Order Comment: Healt hcare Worker?: N Result Comment: Testing for SARS-CoV-2 by RT-PCR This test was developed and its performance characteristics determined by [employer]) and validated at the [facility]. This test has not been FDA cleared or approved. This test has been authorized by FDA under an Emergency Use Authorization (EUA). This test has been validated in accordance with the FDA's Guidance Document (Policy for Diagnostics Testing in Laboratories Certified to Perform High Complexity Testing under CLIA prior to Emergency Use Authorization for Coronavirus Disease-2019 during the Public Health Emergency) issued on July 16, 2019. This test is only authorized for the duration of time the declaration that circumstances exist justifying the authorization of the emergency use of in vitro diagnostic tests for detection of SARS-CoV-2 virus and/or diagnosis of COVID-19 infection under section 564(b)(1) of the Act, 21 U.S.C. 360bbb-3(b)(1), unless the authorization is terminated or revoked sooner. PERFORMED BY: [place] [address] PATHOLOGIST DEPUTY DIRECTOR TAYA CRESPO M.D. Performed By: #### C OVID 19 [facility] #### [address] COVID-19 Positive/NegativeOr dered By: Stevenson Corbin on 10-13-2021 SARS-CoV-2 (COVID-19) N gene LARY+probe Ql (Resp) Negative Negative [facility] Comment on above: Testing for SARS-CoV -2 by RT-PCR This test was developed and its performance characteristics determined by [employer] and validated at the [facility]. This test has not been FDA cleared or approved. This test has been authorized by FDA under an Emergency Use Authorization (EUA). This test has been validated in accordance with the FDA's Guidance Document (Policy for Diagnostics Testing in Laboratories Certified to Perform High Complexity Testing under CLIA prior to Emergency Use Authorization for Coronavirus Disease-2019 during the Public Health Emergency) issued on July 16, 2019. This test is only authorized for the duration of time the declaration that circumstances exist justifying the authorization of the emergency use of in vitro diagnostic tests for detection of SARS-CoV-2 virus and/or diagnosis of COVID-19 infection under section 564(b)(1) of the Act, 21 U.S.C. 360bbb-3(b)(1), unless the authorization is terminated or revoked sooner. Office Visit (Cardiology)on 09-25-2021 Follow-up visit Diagnoses/Problems Assessed Abnormal EKG (794.31) (R94.31) Pre-operative cardiovascular examination (V72.81) (Z01.810) Hypertension, essential, benign (401.1) (I10) Hyperlipemia (272.4) (E78.5) Former smoker (V15.82) (Z87.891) Quit in BMI less than 19,adult (V85.0) (Z68.1) Orders BMI less than 19,adult Healthy Weight Tips; Status:Complete - Retrospective Authorization; Done: 25Sep2021 Pre-operative cardiovascular examination IO EKG Electrocardiogram- 12 Lead; Status:Complete; Done: 25Sep2021 SocHx: Former smoker Tobacco Use Screening; Status:Complete; Done: 25Sep2021 Patient Instructions By signing my name below, I, Nela Scanlon LPN. ,Scribe, attest that this documentation has been prepared under the direction and in the presence of Dr. Manuel Moore DO. Please bring all medicines, vitamins, and herbal supplements with you when you come to the office. Prescriptions will not be filled unless you are compliant with your follow up appointments or have a follow up appointment scheduled as per instruction of your physician. Refills should be requested at the time of your visit. Follow up as needed only patient is cleared for surgery from a cardiac stand point. Chief Complaint MELANIE ESPINOZA is being seen for a consultation for pre-operative clearance and Dr. Corbin total shoulder surgery. History of Present Illness Ms. Espinoza is a 66-year-old female who is seen at the request of Dr. Corbin for preoperative clearance. Apparently her presurgical testing EKG was considered to be abnormal. This EKG is reviewed. The computer read it as a junctional rhythm but I believe it sinus rhythm. Her EKGs tend to be difficult to interpret as she has significant tremors and tardive dyskinesia making it difficult for her to sit still or be still when she is having a test done. Because of this problem there tends to be significant artifact on her EKGs and EKG here in the office today I believe that is sinus but difficult to tell due to the baseline artifact. The rhythm is regular. She has no known cardiac history. She walks with a walker mostly for balance control but when she walks or ambulates she does not have any anginal symptoms. She has no known history of coronary disease or problems. Past medical history and review of systems as per office record. Physical exam: HEENT: No carotid bruits are heard Neck: No lymphadenopathy Lungs: Clear Heart: Regular rate and rhythm without murmurs or extra sounds Abdomen: Soft nontender Extremities: No edema Neurologic: Significant for tremor Skin: No significant lesion Impression and plan: 1) preoperative clearance requested for a 66-year-old female who has no anginal history and no history of coronary disease. EKG is likely sinus rhythm. EKG interpretation limited due to baseline artifact I related to her chronic tremors. Her surgery wishes to be shoulder replacement surgery is relative low risk for cardiac complications. I did not suggest any further cardiac testing as I believe her risk is low and there would be a high likelihood of false positivity to any type of testing such as stress testing because of her inability to lie still. A letter will be sent to Dr. Corbin. 2) chronic hypertension. Continue current medications. Surgical History Problems History of Complete colonoscopy History of Rectal surgery Current Meds Medication NameInstruction amLODIPine Besylate 10 MG Oral Tablettake 1 tablet by mouth once daily Atorvastatin Calcium 40 MG Oral TabletTAKE 1 TABLET AT BEDTIME. Austedo 6 MG Oral TabletTake 1 tablet twice daily busPIRone HCl - 10 MG Oral TabletTAKE 1 TABLET AT BEDTIME. busPIRone HCl - 15 MG Oral TabletTAKE 2 TABLET Daily Calcium 600 + D TABSTAKE 2 TABLET Daily clonazePAM 1 MG Oral TabletTAKE 1 TABLET 3 TIMES DAILY NEEDED. Ferrous Sulfate 325 (65 Fe) MG Oral TabletTAKE ONE TABLET IN THE AM SATURDAY, SATURDAY AND SATURDAY. Fluticasone Propionate 50 MCG/ACT Nasal SuspensionAs directed. Fosamax 70 MG Oral TabletTAKE 1 TABLET ONCE WEEKLY. Gabapentin 300 MG Oral CapsuleTAKE 1 CAPSULE IN THE MORNING. 1 CAPSULE IN THE EARLY AFTERNOON. AND 2 CAPSULES IN THE EVENING. Ibuprofen 200 MG Oral TabletTAKE 3 TABLET Daily PRN Imodium 2 MG CAPSTAKE 1 CAPSULE Every 6 hours Levothyroxine Sodium 75 MCG Oral TabletTAKE 1 TABLET DAILY. Methocarbamol 750 MG Oral TabletTAKE 1 TABLET 3 TIMES DAILY. Pantoprazole Sodium 40 MG Oral Tablet Delayed ReleaseTAKE 1 TABLET TWICE DAILY 30 MINUTES BEFORE BREAKFAST AND DINNER. Primidone 250 MG Oral TabletTake 1 tablet twice daily Sodium Chloride 1 GM Oral Tablettake 1 tablet by mouth once daily Sucralfate 1 GM Oral TabletTAKE 1 TABLET 4 TIMES DAILY. traZODone HCl - 150 MG Oral TabletTAKE 1 TABLET AT BEDTIME. Tylenol Extra Strength 500 MG TABSTAKE 2 TABLET Every 8 hours Zofran 4 MG TABSTAKE 1 TABLET Every 4 hours PRN Allergies Medication erythromycin Allergy; Recorded By: Ngozi Sweeney; 09/25/2021 2:31:58 PM (more content not included)... Normal [facility] PHQ-2 VITALSon 09-25-2021 Fall risk assessment a) No falls within the last year [facility] 250 DO Work Phone: Tobacco use status [facility] b) No [facility] 250 DO Work Phone: PHQ-2 VITALS Yes [facility] 250 DO Work Phone: COVID-19 [facility] 09-18-2021 SARS-CoV-2 (COVID-19) RNA LARY+probe Ql (Unsp spec) Negative Normal Negative [facility] Comment on above: Order Comment: Healt hcare Worker?: N Result Comment: Testing for SARS-CoV-2 by RT-PCR This test was developed and its performance characteristics determined by [employer] and validated at the [facility]. This test has not been FDA cleared or approved. This test has been authorized by FDA under an Emergency Use Authorization (EUA). This test has been validated in accordance with the FDA's Guidance Document (Policy for Diagnostics Testing in Laboratories Certified to Perform High Complexity Testing under CLIA prior to Emergency Use Authorization for Coronavirus Disease-2019 during the Public Health Emergency) issued on July 16, 2019. This test is only authorized for the duration of time the declaration that circumstances exist justifying the authorization of the emergency use of in vitro diagnostic tests for detection of SARS-CoV-2 virus and/or diagnosis of COVID-19 infection under section 564(b)(1) of the Act, 21 U.S.C. 360bbb-3(b)(1), unless the authorization is terminated or revoked sooner. PERFORMED BY: [address] [address] PATHOLOGIST DEPUTY DIRECTOR TAYA CRESPO M.D. Performed By: #### C OVID 19 [facility] #### [address] COVID-19 Positive/NegativeOr dered By: Stevenson Corbin on 09-18-2021 SARS-CoV-2 (COVID-19) N gene LARY+probe Ql (Resp) Negative Negative [facility] Comment on above: Testing for SARS-CoV -2 by RT-PCR This test was developed and its performance characteristics determined by [employer] ([employer] and validated at the [facility]. This test has not been FDA cleared or approved. This test has been authorized by FDA under an Emergency Use Authorization (EUA). This test has been validated in accordance with the FDA's Guidance Document (Policy for Diagnostics Testing in Laboratories Certified to Perform High Complexity Testing under CLIA prior to Emergency Use Authorization for Coronavirus Disease-2019 during the Public Health Emergency) issued on July 16, 2019. This test is only authorized for the duration of time the declaration that circumstances exist justifying the authorization of the emergency use of in vitro diagnostic tests for detection of SARS-CoV-2 virus and/or diagnosis of COVID-19 infection under section 564(b)(1) of the Act, 21 U.S.C. 360bbb-3(b)(1), unless the authorization is terminated or revoked sooner. CT LSPINE WO CONon 2 CT LSPINE WO CON EXAM: CT LSPINE WO CON, CT TSPINE WO CON HISTORY: DORSALGIA, UNSPECIFIED COMPARISON: Patient had an abdominal and pelvic CT with sagittal reformats 01/03/2021. TECHNIQUE: Noncontrast CT of the thoracic and lumbar spine performed. FINDINGS: Thoracic and lumbar alignment is normal. There are small anterior osteophytes in the mid and lower thoracic levels. Thoracic canal is widely patent. Lumbar disc height is maintained. Tiny osteophytes are present at the L4-L5 and L5-S1 levels. Mild facet arthropathy at L4-L5 and L5-S1. No evidence of pars defect. Visualized posterior ribs are intact. There is a large hiatal hernia. IMPRESSION: 1. Mild degenerative changes of the thoracic and lumbar spine. No acute abnormality. 2. Large hiatal hernia unchanged. Electronically authenticated by: JEFE SAEED Date: 2021-08-22 02:25 Normal [facility] HIP LEFT 1 OR 2 VWS WITH PEL VISon 01-26-2021 HIP LEFT 1 OR 2 VWS WITH PELVIS [facility] Department of Radiology [address] [place] [id number] Patient Name: MELANIE ESPINOZA : 1955 Sex: F Age: Race: White Pt. Location: Patient Status: D Ordered Date: 01/26/2021 1:55:00 PM Completed Date: 01/26/2021 02:00 PM Requesting Provider: HERVE STARKEY Attending Provider: HERVE STARKEY Report Copy To: Signs & Symptoms: S72.002A Fracture of unsp part of neck of left femur, init I10 History: Marlys Comments: Evaluate Exam: HIP LEFT 1 OR 2 VWS WITH PELVIS HIP LEFT 1 OR 2 VWS WITH PELVIS 01/26/2021 2:00 PM CLINICAL INDICATIONS: S72.002A Fracture of unsp part of neck of left femur, init I10 TECHNOLOGIST COMMENTS: ortho follow up lt hip fracture with hardware QUESTION FOR THE RADIOLOGIST: Evaluate PROTOCOL: AP(PA) and Lateral views were obtained. COMPARISON: 09/15/2020 FINDINGS: AP pelvis: No acute fractures or dislocations. There is degenerative change of the lower lumbar spine degenerative changes of the bilateral SI joints. The pelvic is intact. Multiple pelvic phlebolith. AP view of the right hip shows adequate anatomic alignment and joint space. Left hip: There is internal fixation compression screws through the left hip with unchanged position and without evidence of loosening or failure. Left hip joint shows some degenerative changes and narrowing of the joint space. The left hip is in adequate anatomic alignment. IMPRESSION: * Internal fixation compression screw is through the left hip without evidence of loosening or failure. * Degenerative changes of the lower lumbar spine and bilateral hip joints. Approved by:Oriana Romero 10:52 AM. I, Marisela Reveles,have reviewed the image(s) and agree with the findings in this report. Electronically signed: Marisela Reveles. Transcribed by: [email or web address], User Resident: ORIANA REILLY Electronically Signed by: MARISELA REVELES @ 01/27/2021 12:26 PM I personally read this/these film(s) with this resident Normal [facility] Comment on above: Order Comment: Evalu ate HIP LEFT 1 OR 2 VWS WITH PEL VISon 09-15-2020 HIP LEFT 1 OR 2 VWS WITH PELVIS [facility] Department of Radiology [address] [place] [id number] Patient Name: MELANIE ESPINOZA : 1955 Sex: F Age: Race: White Pt. Location: Patient Status: O Ordered Date: 09/15/2020 12:40:00 PM Completed Date: 09/15/2020 12:40 PM Requesting Provider: HERVE STARKEY Attending Provider: DARÍO PORRAS Report Copy To: Signs & Symptoms: M25.552 Pain in left hip I10 History: Comments: evaluate Exam: HIP LEFT 1 OR 2 VWS WITH PELVIS EXAMINATION: HIP LEFT 1 OR 2 VWS WITH PELVIS 09/15/2020 12:40 PM CLINICAL HISTORY: M25.552 Pain in left hip I10 TECHNOLOGIST COMMENTS: ortho follow up. left hip surgery 2019 QUESTION FOR THE RADIOLOGIST: evaluate TECHNIQUE: AP(PA) and Lateral views were obtained. COMPARISON: Comparison is made with prior left hip examination of 06/16/2020. FINDINGS: 3 fixation screws are seen in the left proximal femur and appear well in position. No interval change from prior study. There are mild degenerative changes in the both hip joints. Ischio pubic rami are intact. There are degenerative changes in the lower lumbar spine. Both sacroiliac joints are intact. IMPRESSION: 1. Postsurgical changes seen in the left proximal femur with 3 fixation screws remain stable. 2. Degenerative arthritis in the both hip joints and lower lumbar spine. Electronically signed: Jose Armando Kwon. Transcribed by: [email or web address], User Resident: Electronically Signed by: JOSE ARMANDO KWON @ 09/15/2020 08:28 PM Normal [facility] Comment on above: Order Comment: evalu ate RAD - Ultrasound Reporton RAD - Ultrasound Report [id number]:127 Normal [facility] Ambulatory Clinical Summaryo n 08-30-2020 Ambulatory Clinical Summary {[id number] Normal [facility] Patient Educationon 08-31-19 Patient Education Urology Hydronephrosis Hydronephrosis is the swelling of one or both kidneys due to a blockage that stops urine from flowing out of the body. Kidneys filter waste from the blood and produce urine. This condition can lead to kidney failure and may become life threatening if not treated promptly. What are the causes? Common causes of this condition include: ? Problems that occur when a baby is developing in the womb (congenital defect). These can include problems: ? In the kidneys. ? In the tubes that drain urine from the kidneys into the bladder (ureters). ? Kidney stones. ? Bladder infection. ? An enlarged prostate gland. ? Scar tissue from a previous surgery or injury. ? A blood clot. ? A tumor or cyst in the abdomen or pelvis. ? Cancer of the prostate, bladder, uterus, ovary, or colon. What are the signs or symptoms? Symptoms of this condition include: ? Pain or discomfort in your side (flank). ? Pain and swelling in your abdomen. ? Nausea and vomiting. ? Fever. ? Pain when passing urine. ? Feelings of urgency when you need to urinate. ? Urinating more often than normal. In some cases, you may not have any symptoms. How is this diagnosed? This condition may be diagnosed based on: ? Your symptoms and medical history. ? A physical exam. ? Blood and urine tests. ? Imaging tests, such as an ultrasound, CT scan, or MRI. ? A procedure in which a scope is inserted into the urethra and used to view parts of the urinary tract and bladder (cystoscopy). How is this treated? Treatment for this condition depends on where the blockage is, how long it has been there, and what caused it. The goal of treatment is to remove the blockage. Treatment may include: ? Antibiotic medicines to treat or prevent infection. ? A procedure to place a small, thin tube (stent) into a blocked ureter. The stent will keep the ureter open so that urine can drain through it. ? A nonsurgical procedure that crushes kidney stones with shock waves (extracorporeal shock wave lithotripsy). ? If kidney failure occurs, treatment may include dialysis or a kidney transplant. Follow these instructions at home: ? Take gswx-oxq-ggbodwu and prescription medicines only as told by your health care provider. ? Rest and return to your normal activities as told by your health care provider. Ask your health care provider what activities are safe for you. ? Drink enough fluid to keep your urine pale yellow. ? If you were prescribed an antibiotic medicine, take it exactly as told by your health care provider. Do not stop taking the antibiotic even if you start to feel better. ? Keep all follow-up visits as told by your health care provider. This is important. Contact a health care provider if: ? You continue to have symptoms after treatment. ? You develop new symptoms. ? Your urine becomes cloudy or bloody. ? You have a fever. Get help right away if: ? You have severe flank or abdominal pain. ? You cannot drink fluids without vomiting. Summary ? Hydronephrosis is the swelling of one or both kidneys due to a blockage that stops urine from flowing out of the body. ? Hydronephrosis can lead to kidney failure and may become life threatening if not treated promptly. ? The goal of treatment is to treat the cause of the blockage. It may include insertion of stent into a blocked ureter, a procedure to treat kidney stones, and antibiotic medicines. ? Follow your health care provider's instructions for taking care of yourself at home, including instructions about drinking fluids, taking medicines, and limiting activities. This information is not intended to replace advice given to you by your health care provider. Make sure you discuss any questions you have with your health care provider. Document Released: 01/27/2008 Document Revised: 04/12/2018 Document Reviewed: 04/12/2018 [employer] Patient Education ? 2019 [employer]. [facility] Urology Office/Clinic Noteon 08-30-2020 Urology Office/Clinic Note Chief Complaint 1 month with renal u/s HPI Staff Melanie is a 65 y.o. female here for a 3 wk f/u with renal u/s. Patient has a past dx of hydronephrosis of left kidney.. Most recent Renal u/s done 08/19/20 showed moderate dilation of the renal pelvis on left. No obstructing stones. Patient denies any pain or discomfort Dysuria: _Denies Incomplete bladder emptying: _Denies Hematuria: _Denies Frequency: _Denies Urgency: _Denies Nocturia: _on occasion Stream: _Denies Leaking: _Denies Post void dripping: _Denies Wearing pads/ Depends: _just as precaution Urge incontinence: _Denies Stress incontinence: _Denies Incontinence without Sensory Awareness: _Denies Abdominal pain: _Denies Flank pain: _Denies Sexual complaints: _ History of Present Illness reviewed UA. Reviewed Renal US. There have been no associated fever, chills, flank pain or blood in the urine. Review of Systems PHQ Score Initial Depression Screen Score: 0 ROS - Provider Constitutional: denies weight loss, denies hot flashes. Eyes: denies eye problems. Gastrointestinal: denies nausea, denies vomiting. Cardiovascular: denies chest pain or angina. Integumentary: no dryness Musculoskeletal: denies musculoskeletal symptoms. ENMT: denies otolaryngeal symptoms. Respiratory: no shortness of breath. Heme/Lymph: denies easy bleeding tendency, denies easy bruising tendency. Psychiatric: no confusion, no anxiety. Genitourinary: denies vaginal discharge, denies incontinence, denies dysuria, denies hematuria, denies urinary frequency, denies amenorrhea, denies menorrhagia, denies abnormal bleeding, denies pelvic pain, denies genital sores, and denies decreased libido. Physical Exam Vitals & Measurements HR: 96(Peripheral) BP: 184/80 HT: 160.0 cm HT: 160 cm WT: 47.0 kg WT: 47 kg BMI: 18.36 General Appearance: alert , no acute distress, well nourished, well developed female. Genitourinary: bladder nonpalpable, no flank pain. Assessment/Plan Ultrasound report was reviewed with the patient today. This ultrasound report revealed extrarenal pelvis on the left with mild dilation of the collecting system. No hydronephrosis was identified and no loss of thickness of the cortex was noted. Patient was informed of these findings. At this point no further urologic work-up is required. I did offer her the option of coming back on as-needed basis and she states he will contact her office if he has any problems related to this or any other urologic problems. 1. Hydronephrosis of left kidney (N13.30: Unspecified hydronephrosis) Renal US done 08/19/20 is negative for any obstruction. Rt kidney measures 1.1cm thick and left kidney measures 1.4cm thick. This is negative for any Hydronephrosis. Renal US shows moderate left pelviectasis. Pt will be a PRN basis. Ordered: Most recent diastolic blood pressure 80-89 mm Hg 3079F Most recent systolic blood pressure >= 140 mm Hg 3077F Urnls Dip Stick Auto w/o Microscopy POC 82988 I have reviewed the previous health record information and history for this patient from Dr. Go Follow-up With When Contact Information Donavan Bailey MD, Justin Massey, URO Only if needed [facility] [address], [place] [address]- Additional Instructions: Patient Education Hydronephrosis I, Marion Gibson, personally scribed for Dr. Go on 08/30/2020 12:35:58. . Documentation recorded by the scribe, Marion Gibson, accurately reflects the services(s) I performed and decisions made by me. Authenticated by Dr. Go on 08/30/2020 13:04:12. Problem List/Past Medical History Ongoing Anxiety Cervical spondylolysis Depression Dysphagia GERD with apnea Hydronephrosis of left kidney Hypercholesteremia Hypertension Hypothyroidism Insomnia Osteopetrosis RLS (restless legs syndrome) Historical No qualifying data Procedure/Surgical History Colonoscopy, flexible; with biopsy, single or multiple, Repair umbilical hernia, age 5 years or older; reducible. Medications alendronate 70 mg oral tablet, 70 mg= 1 tab(s), Oral, qWeek amLODIPine 5 mg Tab, Oral, Daily busPIRone 15 mg Tab, 15 mg= 1 tab(s), Oral, BID clonazepam 1 mg Tab, 1 mg= 1 tab(s), Oral, TID escitalopram 20 mg Tab, 20 mg= 1 tab(s), Oral, Daily furosemide 20 mg Tab, Oral, Daily gabapentin 600 mg Tab, 600 mg= 1 tab(s), Oral, Daily Ingrezza 80 mg oral capsule, Oral, Daily Iron 100 Plus oral tablet, Oral, Daily levothyroxine 75 mcg (0.075 mg) Tab, 75 mcg= 1 tab(s), Oral, Daily magnesium gluconate 250 mg oral tablet, 250 mg= 1 tab(s), Oral, Daily methocarbamol 750 mg Tab, Oral, TID pantoprazole 40 mg Oral EC Tab, 40 mg= 1 tab(s), Oral, Daily pravastatin 40 mg Tab, 40 mg= 1 tab(s), Oral, Daily primidone 250 mg Tab, 250 mg= 1 tab(s), Oral, BID traZODONE 150 mg Tab, 150 mg= 1 tab(s), Oral, Once a day (at bedtime) valbenazine 80 mg oral capsule, 80 mg= 1 (more content not included)... Normal [facility] Comment on above: Result Comment: Elec tronically Signed By: Donavan Bailey MD, Justin Massey\.br\Date and Time Signed: 08/30/20 13:04 EDT\.br\Electronically Co-Signed By: Marion Gibson MA\.br\Date and Time Co-Signed: 08/30/20 12:36 EDT Reminderson 08-22-2020 Reminders - From: Edilma Godoy To: [facility] - Clinical; Sent: 08/09/2020 11:42:24 EDT Show up: 08/21/2020 11:42:00 EDT Subject: renal US Reminder/Recall scheduled 08/19/20 at [facility]. patient has f/u scheduled 08/30 for results results scanned in today [facility] Ambulatory Clinical Summaryo n 08-09-2020 Ambulatory Clinical Summary {[id number]}CD:[id number] [facility] Formson 08-09-2020 Forms [id number] .[id number]:127 [facility] Patient Educationon 08-10-19 21 Patient Education Urology Hydronephrosis Hydronephrosis is the swelling of one or both kidneys due to a blockage that stops urine from flowing out of the body. Kidneys filter waste from the blood and produce urine. This condition can lead to kidney failure and may become life threatening if not treated promptly. What are the causes? Common causes of this condition include: ? Problems that occur when a baby is developing in the womb (congenital defect). These can include problems: ? In the kidneys. ? In the tubes that drain urine from the kidneys into the bladder (ureters). ? Kidney stones. ? Bladder infection. ? An enlarged prostate gland. ? Scar tissue from a previous surgery or injury. ? A blood clot. ? A tumor or cyst in the abdomen or pelvis. ? Cancer of the prostate, bladder, uterus, ovary, or colon. What are the signs or symptoms? Symptoms of this condition include: ? Pain or discomfort in your side (flank). ? Pain and swelling in your abdomen. ? Nausea and vomiting. ? Fever. ? Pain when passing urine. ? Feelings of urgency when you need to urinate. ? Urinating more often than normal. In some cases, you may not have any symptoms. How is this diagnosed? This condition may be diagnosed based on: ? Your symptoms and medical history. ? A physical exam. ? Blood and urine tests. ? Imaging tests, such as an ultrasound, CT scan, or MRI. ? A procedure in which a scope is inserted into the urethra and used to view parts of the urinary tract and bladder (cystoscopy). How is this treated? Treatment for this condition depends on where the blockage is, how long it has been there, and what caused it. The goal of treatment is to remove the blockage. Treatment may include: ? Antibiotic medicines to treat or prevent infection. ? A procedure to place a small, thin tube (stent) into a blocked ureter. The stent will keep the ureter open so that urine can drain through it. ? A nonsurgical procedure that crushes kidney stones with shock waves (extracorporeal shock wave lithotripsy). ? If kidney failure occurs, treatment may include dialysis or a kidney transplant. Follow these instructions at home: ? Take ltqu-ncf-vvtrqxf and prescription medicines only as told by your health care provider. ? Rest and return to your normal activities as told by your health care provider. Ask your health care provider what activities are safe for you. ? Drink enough fluid to keep your urine pale yellow. ? If you were prescribed an antibiotic medicine, take it exactly as told by your health care provider. Do not stop taking the antibiotic even if you start to feel better. ? Keep all follow-up visits as told by your health care provider. This is important. Contact a health care provider if: ? You continue to have symptoms after treatment. ? You develop new symptoms. ? Your urine becomes cloudy or bloody. ? You have a fever. Get help right away if: ? You have severe flank or abdominal pain. ? You cannot drink fluids without vomiting. Summary ? Hydronephrosis is the swelling of one or both kidneys due to a blockage that stops urine from flowing out of the body. ? Hydronephrosis can lead to kidney failure and may become life threatening if not treated promptly. ? The goal of treatment is to treat the cause of the blockage. It may include insertion of stent into a blocked ureter, a procedure to treat kidney stones, and antibiotic medicines. ? Follow your health care provider's instructions for taking care of yourself at home, including instructions about drinking fluids, taking medicines, and limiting activities. This information is not intended to replace advice given to you by your health care provider. Make sure you discuss any questions you have with your health care provider. Document Released: 01/27/2008 Document Revised: 04/12/2018 Document Reviewed: 04/12/2018 [employer] Patient Education ? 2019 [employer]. [facility] Urology Office/Clinic Noteon 08-09-2020 Urology Office/Clinic Note Chief Complaint New patient here for left sided hydronephrosis HPI Staff New patient Melanie is a 65 y.o. female referred by [facility] for mild to moderate left hydronephrosis. CT done 06/28/20. Denies previous hx of kidney or bladder infections. Denies family hx of kidney or bladder cancer. Dysuria: Denies Incomplete bladder emptying: Denies Hematuria: Denies Frequency: Denies Urgency: Denies Nocturia: on occasion Stream: Stream is normal Leaking: Denies Post void dripping: Denies Wearing pads/ Depends: precaution Urge incontinence: Denies Stress incontinence: Denies Incontinence without Sensory Awareness: Denies Abdominal pain: Denies Flank pain: Denies Sexual complaints: _ History of Present Illness Tests Reviewed: Reviewed UA, New patient paperwork, CT and ER report. I have reviewed the previous health record information and history for this patient from Dr. Go I have reviewed and verified the staff HPI to be accurate for this encounter. There have been no associated fever, chills, flank pain, or blood in the urine. Review of Systems ROS - Provider Constitutional: denies weight loss, denies hot flashes. Eyes: denies eye problems. Gastrointestinal: denies nausea, denies vomiting. Cardiovascular: denies chest pain or angina. Integumentary: no dryness Musculoskeletal: denies musculoskeletal symptoms. ENMT: denies otolaryngeal symptoms. Respiratory: no shortness of breath. Heme/Lymph: denies easy bleeding tendency, denies easy bruising tendency. Psychiatric: no confusion, no anxiety. Genitourinary: denies vaginal discharge, denies incontinence, denies dysuria, denies hematuria, denies urinary frequency, denies amenorrhea, denies menorrhagia, denies abnormal bleeding, denies pelvic pain, denies genital sores, and denies decreased libido. Physical Exam Vitals & Measurements HR: 83(Peripheral) BP: 149/91 HT: 160.02 cm HT: 160.0 cm WT: 47.62 kg WT: 47.6 kg BMI: 18.6 General Appearance: alert , no acute distress, well nourished, well developed female. Head: normocephalic . Eyes: normal orbit and globe. ENMT: normal examination of external ears. Chest: Lungs CTA, respirations non labored . Cardiovascular: regular rate and rhythm. Abdomen: soft, non distended, no tenderness, no mass or organomegaly, no hernia. Genitourinary: bladder nonpalpable, no flank tenderness. Lymph Nodes: unremarkable palpation of the cervical area. Skin: warm, dry, no bruising. Psychiatric: cooperative, affect appropriate for age, normal judgement, euthymic mood. Assessment/Plan This patient has a history of mild to moderate left hydronephrosis. She is being scheduled for ultrasound of her kidneys to determine if there is persistent hydronephrosis. We will consider further work-up based on the results of the study. At present the patient has no urologic complaints. 1. Hydronephrosis of left kidney (N13.30: Unspecified hydronephrosis) CT on 07/08/20 showed mild-moderate hydronephrosis on left. Patient is doing well with urination at this time. At this time we will decided to do a renal ultrasound. Ordered: Urnls Dip Stick Auto w/o Microscopy POC 18980 US Renal Follow-up With When Contact Information Donavan Bailey MD, Justin Massey, URO [facility] [address] [place] [address]- Additional Instructions: after renal u/s Patient Education Hydronephrosis I, Nadiya Freed personally scribed for Dr. Go on 08/09/2020 11:07:27. . Documentation recorded by the scribe, Nadiya Freed, accurately reflects the services(s) I performed and decisions made by me. Authenticated by Dr. Go on 08/09/2020 11:17:51. Problem List/Past Medical History Ongoing Anxiety Cervical spondylolysis Depression Dysphagia GERD with apnea Hydronephrosis of left kidney Hypercholesteremia Hypertension Hypothyroidism Insomnia Osteopetrosis RLS (restless legs syndrome) Historical No qualifying data Procedure/Surgical History Colonoscopy, flexible; with biopsy, single or multiple, Repair umbilical hernia, age 5 years or older; reducible. Medications alendronate 70 mg oral tablet, 70 mg= 1 tab(s), Oral, qWeek amLODIPine 5 mg Tab, Oral, Daily busPIRone 15 mg Tab, 15 mg= 1 tab(s), Oral, BID clonazepam 1 mg Tab, 1 mg= 1 tab(s), Oral, TID escitalopram 20 mg Tab, 20 mg= 1 tab(s), Oral, Daily furosemide 20 mg Tab, Oral, Daily gabapentin 600 mg Tab, 600 mg= 1 tab(s), Oral, Daily Ingrezza 80 mg oral capsule, Oral, Daily levothyroxine 75 mcg (0.075 mg) Tab, 75 mcg= 1 tab(s), Oral, Daily magnesium gluconate 250 mg oral tablet, 250 mg= 1 tab(s), Oral, Daily methocarbamol 750 mg Tab, Oral, TID pantoprazole 40 mg Oral EC Tab, 40 mg= 1 tab(s), Oral, Daily pravastatin 40 mg Tab, 40 mg= 1 tab(s), Oral, Daily primidone 250 mg Tab, 250 mg= 1 tab(s), Oral, BID traZODONE 150 mg Tab, 150 mg= 1 tab(s), Oral, Once a day (at bedtime) (more content not included)... Normal [facility] Comment on above: Result Comment: Elec tronically Signed By: Donavan Bailey MD, Justin Massey\.br\Date and Time Signed: 08/09/20 11:18 EDT\.br\Electronically Co-Signed By: Nadiya Freed MA\.br\Date and Time Co-Signed: 08/09/20 11:07 EDT RAD - CT Reporton 07-12-[address] - [address] Report [id number]. [id number]:127 Normal [facility] Consultation Noteon 07-02-19 Consultation Note [id number]:127 Normal [facility] HIP LEFT 1 OR 2 VWS WITH PEL VISon 06-16-2020 HIP LEFT 1 OR 2 VWS WITH PELVIS [facility] Department of Radiology [address] [place] [address] Patient Name: MELANIE ESPINOZA : 1955 Sex: F Age: Race: White Pt. Location: Patient Status: D Ordered Date: 06/16/2020 1:25:00 PM Completed Date: 06/16/2020 01:25 PM Requesting Provider: HERVE STARKEY Attending Provider: HERVE STARKEY Report Copy To: Signs & Symptoms: M25.552 Pain in left hip I10 History: Marlys Comments: Views (X-RAY, HIP): AP Hip, Frogleg Lateral Hip Exam: HIP LEFT 1 OR 2 VWS WITH PELVIS HIP LEFT 1 OR 2 VWS WITH PELVIS 06/16/2020 1:25 PM CLINICAL INDICATIONS: M25.552 Pain in left hip I10 TECHNOLOGIST COMMENTS: Ortho follow up. Check healing. Left hip surgery Feb 2020. QUESTION FOR THE RADIOLOGIST: Views (X-RAY, HIP): AP Hip, Frogleg Lateral Hip PROTOCOL: AP(PA) and Lateral views were obtained. COMPARISON: 2020 IMPRESSION: 3 screws in the proximal left femur are appreciated. Hardware appears well-positioned. No articular surface collapse. Ongoing bone remodeling and healing. No acute complication Electronically signed: Willow Stapleton. Transcribed by: [email or web address], User Resident: Electronically Signed by: WILLOW STAPLETON @ 06/17/2020 08:01 AM Normal [facility] Comment on above: Order Comment: Views (X-RAY, HIP): AP Hip, Frogleg Lateral Hip HIP LEFT 1 OR 2 VWS WITH PEL VISon 2020 HIP LEFT 1 OR 2 VWS WITH PELVIS [facility] Department of Radiology [address] [place] [id number] Patient Name: MELANIE ESPINOZA : 1955 Sex: F Age: Race: White Pt. Location: Patient Status: O Ordered Date: 2020 1:25:00 PM Completed Date: 2020 01:30 PM Requesting Provider: HERVE STARKEY Attending Provider: HERVE STARKEY Report Copy To: Signs & Symptoms: M25.552 Pain in left hip I10 History: [place] Comments: Exam: HIP LEFT 1 OR 2 VWS WITH PELVIS HIP LEFT 1 OR 2 VWS WITH PELVIS 2020 1:30 PM CLINICAL INDICATIONS: M25.552 Pain in left hip I10 TECHNOLOGIST COMMENTS: Patient states surgery x 02/2020 ortho follow up of left hip QUESTION FOR THE RADIOLOGIST: PROTOCOL: AP(PA) and Lateral views were obtained. COMPARISON: April 14, 2020. FINDINGS: Osteopenia. 3 times Cannulated screws across the left femoral neck fracture with slight angulation at the level of the fracture site. The residual fracture line is not identified. Minimal sclerosis is noted associated. There is scoliosis of the spine with DJD. IMPRESSION: Stable alignment of the 3 cannulated screws across the left femoral neck fracture with mild angulation and impaction. Electronically signed: Deion Hernandez. Transcribed by: [email or web address], User Resident: Electronically Signed by: DEION HERNANDEZ @ 2020 04:11 PM Normal [facility] HIP LEFT 1 OR 2 VWS WITH PEL VISon 04-14-2020 HIP LEFT 1 OR 2 VWS WITH PELVIS [facility] Department of Radiology [address] [place] [id number] Patient Name: MELANIE ESPINOZA : 1955 Sex: F Age: Race: White Pt. Location: 84 Patient Status: O Ordered Date: 04/14/2020 9:20:00 AM Completed Date: 04/14/2020 09:27 AM Requesting Provider: HERVE STARKEY Attending Provider: HERVE STARKEY Report Copy To: Signs & Symptoms: M25.552 Pain in left hip I10 History: Marlys Comments: Evaluate Exam: HIP LEFT 1 OR 2 VWS WITH PELVIS HIP LEFT 1 OR 2 VWS WITH PELVIS 04/14/2020 9:27 AM CLINICAL INDICATIONS: M25.552 Pain in left hip I10 TECHNOLOGIST COMMENTS: follow/up surgery 03/03/2020 to left hip QUESTION FOR THE RADIOLOGIST: Evaluate PROTOCOL: AP(PA) and Lateral views were obtained. COMPARISON: 03/18/2020 FINDINGS: Stable alignment of left hip fracture status post screw fixation. Hardware is intact without evidence for loosening. IMPRESSION: Stable alignment of left hip fracture. Electronically signed: Antonio Brenal. Transcribed by: [email or web address], User Resident: Electronically Signed by: ANTONIO BERNAL @ 04/14/2020 10:04 AM Normal [facility] Comment on above: Order Comment: Evalu ate Coding Summaryon 01-13-2020 Coding Summary CODING DATE: 01/13/2020 [facility] STATUS: Home PAYOR: Medicaid HMO ADMIT DX: REASON FOR VISIT DX: K46.9 Unspecified abdominal hernia without obstruction or gangrene FINAL DX: PRINCIPAL: K43.9 Ventral hernia without obstruction or gangrene SECONDARY: PYMT PROC APC STAT DESCRIPTION DOCTOR NAME DATE NOTE: The code number assigned matches the documented diagnosis and / or procedure in the patient's chart. However, the narrative phrase printed from the coding software may appear abbreviated, or result in slightly different terminology. Coded By: Nikhil Zamudio Date Saved: 01/13/2020 06:25 pm [facility] Coding Summary CODING DATE: 01/13/2020 [facility] STATUS: Home PAYOR: Medicaid HMO ADMIT DX: REASON FOR VISIT DX: K46.9 Unspecified abdominal hernia without obstruction or gangrene FINAL DX: PRINCIPAL: K43.9 Ventral hernia without obstruction or gangrene SECONDARY: PYMT PROC APC STAT DESCRIPTION DOCTOR NAME DATE NOTE: The code number assigned matches the documented diagnosis and / or procedure in the patient's chart. However, the narrative phrase printed from the coding software may appear abbreviated, or result in slightly different terminology. Coded By: Nikhil Zamudio Date Saved: 01/13/2020 06:24 pm [facility] Coding Summary CODING DATE: 01/13/2020 [facility] STATUS: Home PAYOR: Medicaid HMO ADMIT DX: REASON FOR VISIT DX: K46.9 Unspecified abdominal hernia without obstruction or gangrene FINAL DX: PRINCIPAL: K43.6 Other and unspecified ventral hernia with obstruction, without gangrene SECONDARY: PYMT PROC APC STAT DESCRIPTION DOCTOR NAME DATE NOTE: The code number assigned matches the documented diagnosis and / or procedure in the patient's chart. However, the narrative phrase printed from the coding software may appear abbreviated, or result in slightly different terminology. Coded By: Bryan Zamudio' Date Saved: 01/13/2020 06:24 pm Normal [facility] ED Clinical Summaryon 2019 ED Clinical Summary [facility] - Emergency Department [address] [place] [id number] ED Clinical Summary PERSON INFORMATION Name: MELANIE ESPINOZA Age: 64 Years Sex: FEMALE : 1955 MRN: Acct#: Visit Reason: Hernia; ABD PAIN Arrival: 01/09/2020 15:42:54 Discharge: 01/09/2020 16:20:00 LOS: 000 00:38 Check In: 01/09/2020 15:42:54 Checkout:01/09/2020 16:20:00 Address: [facility] [address] [facility] [address] PCP: ESTEBAN GARZA PROVIDER INFORMATION Provider Role Assigned Unassigned Wade Hassan MD ED Provider 01/09/2020 15:43:42 Fortino RN, Sharyn Beasley ED Nurse 01/09/2020 16:04:55 VITALS INFORMATION Vital Sign Triage Latest Temperature Tympanic Temperature Temporal Artery Pulse Rate 93 bpm 93 bpm O2 Sat 99 % 99 % Respiratory Rate 18 br/min 18 br/min Blood Pressure /78 mmHg /78 mmHg MEDICAL INFORMATION Medications Given: Allergy Information: No Known Medication Allergies PHYSICIAN DOCUMENTATION DISCHARGE INFORMATION: Discharge Disposition: Home Discharge Location: Home PATIENT EDUCATION INFORMATION Instructions: Ventral Hernia Follow-Up: With: Address: When: Calvin Aguilar [address] [place] [address], [place] [address] Business (1) Within 2 to 4 days Comments: Reviewed discharge care instruction. Continue with therapy as outlined by Dr. Hassan. Hold on to hernia area for support before coughing or straining. Contact Dr Aguilar or PCP for follow up within the recommended time. Return to ER for any worsening symptoms especially any symptom that concerns you. DIAGNOSIS: Incarcerated ventral hernia; Ventral hernia Patient Understands: Yes - Patient/family/amandai kimberly verbalizes understanding of instructions given Comment: [facility] ED Note - Physicianon 2019 ED Note - Physician Patient: BALJEET ESPINOZA Age: 64 years Sex: FEMALE : 1955 Associated Diagnoses: Incarcerated ventral hernia; Ventral hernia Author: Wade Hassan MD Basic Information Time seen: Date & time 01/09/2020 16:00:00. History source: Patient. Arrival mode: Private vehicle, walking. History limitation: None. History of Present Illness The patient presents with hernia. The onset was just prior to arrival. The course/duration of symptoms is constant. Location: abdomen. The character of symptoms is pain and swelling. The degree of pain is moderate. The relieving factor is none. Risk factors consist of none. Therapy today: none. Associated symptoms: abdominal pain and denies vomiting. 64-year-old female presented to ER for evaluation of abdominal pain. Patient stated that she had onset of symptoms today. Symptoms started spontaneously. Symptoms started several hours ago. She noted protrusion of the abdomen area, ventral wall, much more notable and significant pain around the area. She stated that she did had known of the hernia, had discussed with her primary care physician and had no specific disposition at this time. She denies any associated nausea or vomiting. She denies any recent problem with eating or drinking. Review of Systems Constitutional symptoms: No fever, Skin symptoms: Negative except as documented in HPI. ENMT symptoms: No nasal congestion, Respiratory symptoms: No cough, Gastrointestinal symptoms: Abdominal pain, no vomiting, no diarrhea, no constipation. Genitourinary symptoms: No dysuria, Health Status Allergies: Allergic Reactions (Selected) No Known Medication Allergies. Medications: (Selected) Prescriptions Prescribed Zofran ODT 4 mg oral tablet, disintegratin mg = 1 tab(s), PO, q8hr, for 3 day(s), PRN: as needed for nausea/vomiting, 9 tab(s), 0 Refill(s) Documented Medications Documented Austedo 6 mg oral tablet: 6 mg = 1 tab(s), PO, BID, with food, 60 tab(s), 0 Refill(s) Fosamax 70 mg oral tablet: 70 mg, 1 tab(s), PO, qWeek, 0 Refill(s) escitalopram 10 mg oral tablet: 10 mg, 1 tab(s), PO, Daily, 0 Refill(s) gabapentin 100 mg oral capsule: 100 mg = 1 cap(s), PO, Daily, 90 cap(s), 0 Refill(s) gabapentin 100 mg oral capsule: 200 mg = 2 cap(s), PO, HS, 0 Refill(s) levothyroxine 100 mcg (0.1 mg) oral tablet: 100 mcg = 1 tab(s), PO, Daily, 30 tab(s), 0 Refill(s) pantoprazole 40 mg oral delayed release tablet: 40 mg = 1 tab(s), PO, BID, 30 tab(s), 0 Refill(s) pravastatin 40 mg oral tablet: 40 mg, 1 tab(s), PO, Daily, 0 Refill(s) tiZANidine 4 mg oral tablet: 4 mg, 1 tab(s), PO, TID, 0 Refill(s). Past Medical/ Family/ Social History Medical history: No active or resolved past medical history items have been selected or recorded., Reviewed as documented in chart. Surgical history: Esophagogastroduodeno scopy ([id number]) on 01/17/2018 at 62 Years., Reviewed as documented in chart. Family history: No family history items have been selected or recorded., Reviewed as documented in chart. Social history: Social & Psychosocial Habits Tobacco 04/15/2017 Smoking tobacco use: 5-9 cigarettes (between 1 Comment: Smokes /2 PDD - 04/15/2017 13:04 - Marlyn Espinoza RN 11/15/2017 Smoking tobacco use: Former smoker, quit more Comment: Quit 06/30 - 11/15/2017 14:59 - Alexa Tolliver RN , Reviewed as documented in chart. Problem list: Active Problems (3) H/O hyperlipidemia History of restless legs syndrome Hypothyroid , movement disorder. Physical Examination Vital Signs Per nurse's notes. General: Examination revealed a thin 64-year-old female with abnormal rapid alternating movements. Consistent with her previous diagnosis of hypoactive movement disorder. She admits to having pain at the umbilicus region. Skin: Warm, intact, moist, normal for ethnicity, With the constant activity, her skin is warm and flushed, sweaty. Head: Normocephalic, atraumatic. Neck: Supple, no tenderness. Eye: Extraocular movements are intact, normal conjunctiva, vision unchanged. Ears, nose, mouth and throat: ENT evaluation is grossly unremarkable. There are no complaints of ENT symptoms. Hearing is intact and adequate. Nose is normal without rhinorrhea or congestion. No facial swelling or asymmetry. Lips are normal. Oral mucous membranes appear normal. . Cardiovascular: Regular rate and rhythm, No murmur, No edema. Respiratory: Lungs are clear to auscultation, respirations are non-labored, breath sounds are equal. Gastrointestinal: Soft, Non distended, Just above the umbilicus, patient does have what appears to be of ventral hernia. There is protrusion of soft tissue into the hernia sac. She is tender around the area. The sac measure, as protruded from the abdominal area, about 2-1/2 cm x 2-1/2 cm. Finding consistent with incarcerated hernia. The rest of the abdomen was benign on exam. Back: Normal range of motion. Musculoskeletal: Normal ROM, no tenderness, no swelling. Neurological: Alert and oriented to person, place, time, and situation. Medical Decision Making Differential Diagnosis: Strangulated hernia, incarcerated hernia, abdominal hernia. Reexamination/ Reevaluation With the finding on exam, I had subsequently applied pressure to the hernia. Within a few minutes, it was reducible. I have discussed with the patient further regarding the definitive treatment plan. For now, apply support when she has activity, lifting or any such that with increasing intra-abdominal pressure. Supported basically. Contact PCP for follow-up, further evaluation for possible surgical repair. Patient indicated understanding Impression and Plan Diagnosis Incarcerated ventral hernia ([id number] K43.6, Discharge, Medical) Ventral hernia ([id number] K43.9, Discharge, Medical) Plan Condition: Improved, Stable. Disposition: Discharged: Time 01/09/2020 16:13:00, to home. Patient was given the following educational materials: Ventral Hernia, Ventral Hernia. Follow up with: ; Calvin Aguilar Within 2 to 4 days Reviewed discharge care instruction. Continue with therapy as outlined by Dr. Le. Hold on to hernia area for support before coughing or straining. Contact Dr Aguilar or PCP for follow up within the recommended time. Return to ER for any worsening symptoms especially any symptom that concerns you. . Counseled: Patient, Regarding diagnosis, Regarding treatment plan, Patient indicated understanding of instructions. [Electronically Signed on: 01/12/2020 15:09 EDT] Wade Hassan MD [Verified on: 01/12/2020 15:09 EDT] Wade Hassan MD [facility] ED Note-Nursingon 01-09-2020 ED Note-Nursing Pt presents to the E D with a hernia. Pt states increased pain in that area. [facility] ED Patient Education Noteon 01-09-2020 ED Patient Education Note Education Materials Gastroenterology Ventral Hernia A ventral hernia is a bulge of tissue from inside the abdomen that pushes through a weak area of the muscles that form the front wall of the abdomen. The tissues inside the abdomen are inside a sac (peritoneum). These tissues include the small intestine, large intestine, and the fatty tissue that covers the intestines (omentum). Sometimes, the bulge that forms a hernia contains intestines. Other hernias contain only fat. Ventral hernias do not go away without surgical treatment. There are several types of ventral hernias. You may have: ? A hernia at an incision site from previous abdominal surgery (incisional hernia). ? A hernia just above the belly button (epigastric hernia), or at the belly button (umbilical hernia). These types of hernias can develop from heavy lifting or straining. ? A hernia that comes and goes (reducible hernia). It may be visible only when you lift or strain. This type of hernia can be pushed back into the abdomen (reduced). ? A hernia that traps abdominal tissue inside the hernia (incarcerated hernia). This type of hernia does not reduce. ? A hernia that cuts off blood flow to the tissues inside the hernia (strangulated hernia). The tissues can start to if this happens. This is a very painful bulge that cannot be reduced. A strangulated hernia is a medical emergency. What are the causes? This condition is caused by abdominal tissue putting pressure on an area of weakness in the abdominal muscles. What increases the risk? The following factors may make you more likely to develop this condition: ? Being male. ? Being 60 or older. ? Being overweight or obese. ? Having had previous abdominal surgery, especially if there was an infection after surgery. ? Having had an injury to the abdominal wall. ? Having had several pregnancies. ? Having a buildup of fluid inside the abdomen (ascites). What are the signs or symptoms? The only symptom of a ventral hernia may be a painless bulge in the abdomen. A reducible hernia may be visible only when you strain, cough, or lift. Other symptoms may include: ? Dull pain. ? A feeling of pressure. Signs and symptoms of a strangulated hernia may include: ? Increasing pain. ? Nausea and vomiting. ? Pain when pressing on the hernia. ? The skin over the hernia turning red or purple. ? Constipation. ? Blood in the stool (feces). How is this diagnosed? This condition may be diagnosed based on: ? Your symptoms. ? Your medical history. ? A physical exam. You may be asked to cough or strain while standing. These actions increase the pressure inside your abdomen and force the hernia through the opening in your muscles. Your health care provider may try to reduce the hernia by pressing on it. ? Imaging studies, such as an ultrasound or CT scan. How is this treated? This condition is treated with surgery. If you have a strangulated hernia, surgery is done as soon as possible. If your hernia is small and not incarcerated, you may be asked to lose some weight before surgery. Follow these instructions at home: ? Follow instructions from your health care provider about eating or drinking restrictions. ? If you are overweight, your health care provider may recommend that you increase your activity level and eat a healthier diet. ? Do not lift anything that is heavier than 10 lb (4.5 kg). ? Return to your normal activities as told by your health care provider. Ask your health care provider what activities are safe for you. You may need to avoid activities that increase pressure on your hernia. ? Take [id number]-ial-[id number] and prescription medicines only as told by your health care provider. ? Keep all follow-up visits as told by your health care provider. This is important. Contact a health care provider if: ? Your hernia gets larger. ? Your hernia becomes painful. Get help right away if: ? Your hernia becomes increasingly painful. ? You have pain along with any of the following: ? Changes in skin color in the area of the hernia. ? Nausea. ? Vomiting. ? Fever. Summary ? A ventral hernia is a bulge of tissue from inside the abdomen that pushes through a weak area of the muscles that form the front wall of the abdomen. ? This condition is treated with surgery, which may be urgent depending on your hernia. ? Do not lift anything that is heavier than 10 lb (4.5 kg), and follow activity instructions from your health care provider. This information is not intended to replace advice given to you by your health care provider. Make sure you discuss any questions you have with your health care provider. Document Released: 03/18/2013 Document Revised: 05/14/2018 Document Reviewed: 10/21/2017 [employer] Patient Education ? 2019 [employer]. Normal [facility] ED Patient Summaryon 020 ED Patient Summary [facility] - Emergency Department [address] [place] [address] PATIENT DISCHARGE INSTRUCTIONS Patient Information Name: MELANIE ESPINOZA Age: 64 Years Date of : 1955 Reason For Visit: Hernia; ABD PAIN Arrival Time: 01/09/2020 15:42:54 Primary Care Physician: ESTEBAN GARZA Attending Physician: Wade Hassan MD Comment: Visit Diagnosis: Diagnoses This Visit Hernia ([id number]) Incarcerated ventral hernia (K43.6) Ventral hernia (K43.9) Prescription Information: If you have been given a prescription for narcotics, seek immediate medical attention if you have any difficulty breathing or any sudden status changes such as confusion and sleepiness. If you or anyone you know is experiencing suicidal thoughts, mental health, alcohol and/or drug addiction problems; contact the [facility] 05/11 Crisis Hotline -Text 4HACK et [phone]. If you received any narcotics, sedation, or any other medication that causes drowsiness for the next 24 hours, unless otherwise directed: ? Do not drive a car. ? Do not operate machinery such as power tools, lawn mowers, drills, sewing machines, or stoves ? Avoid alcoholic beverages and drugs for allergies, nerves, or sleep ? Do not make important personal or business decisions or sign any legal documents With: Address: When: Calvin Aguilar [address] [place] [address], [place] [address] Business (1) Within 2 to 4 days Comments: Reviewed discharge care instruction. Continue with therapy as outlined by Dr. Hassan. Hold on to hernia area for support before coughing or straining. Contact Dr Aguilar or PCP for follow up within the recommended time. Return to ER for any worsening symptoms especially any symptom that concerns you. Medication Information: The exam and treatment you received today in the [facility] Emergency Department were for an urgent problem and are not intended as complete care. It is important for you to follow up with a doctor, nurse practitioner, or physician?s media assistant for ongoing care. If your symptoms become worse or you do not improve as expected and you are unable to reach your usual health care provider, you should return to the Emergency Department, we are available 24 hours a day. For those patients who have received Radiology results, the interpretation of your X-ray as given to you by our Emergency Department physician is only a preliminary report. The Radiologist will review your films and if there is a change in the diagnosis you will be notified by phone. Please make sure you have provided a working phone number so we can reach you if necessary. In the event that you had a lab culture while you were a patient in the Emergency Department, you will be notified by phone if there is a need to change your antibiotic. Please make sure you have provided a working phone number so we can reach you if necessary. [facility] Emergency Department has provided you with a complete list of medications post discharge. Please inform your physical geographer/provider of your visit and for further instruction on these medications. Any specific questions regarding your chronic medications and dosages should be discussed with your primary care physician(s) and/or pharmacist. Medications to Continue That Have Not Changed Other Medications alendronate (Fosamax 70 mg oral tablet) 1 tab(s) Oral every week. deutetrabenazine (Austedo 6 mg oral tablet) 1 tab(s) Oral 2 times a day. with food. escitalopram (escitalopram 10 mg oral tablet) 1 tab(s) Oral every day. gabapentin (gabapentin 100 mg oral capsule) 1 cap(s) Oral every day. gabapentin (gabapentin 100 mg oral capsule) 2 cap(s) Oral At bedtime. levothyroxine (levothyroxine 100 mcg (0.1 mg) oral tablet) 1 tab(s) Oral every day. ondansetron (Zofran ODT 4 mg oral tablet, disintegrating) 1 tab(s) Oral Every 8 hours as needed as needed for nausea/vomiting for 3 Days. Refills: 0. pantoprazole (pantoprazole 40 mg oral delayed release tablet) 1 tab(s) Oral 2 times a day. pravastatin (pravastatin 40 mg oral tablet) 1 tab(s) Oral every day. tiZANidine (tiZANidine 4 mg oral tablet) 1 tab(s) Oral 3 times a day. Visit Information Allergies: Substance Reaction Symptoms Type Comments No Known Medication Allergies Drug Vital Signs: Vitals and Measurements this Visit (last charted value for your 01/09/2020 visit) Vital Signs This Visit Temperature Oral: 36.9 DegC Peripheral Pulse Rate: 93 bpm Respiratory Rate: 18 br/min Systolic Blood Pressure: 185 mmHg Diastolic Blood Pressure: 78 mmHg SpO2: 99 % Oxygen Therapy: Room air Measurements This Visit Height/Length Dosin.000 cm Height/Length Estimated: 160.000 cm Weight Dosin.450 kg Weight Estimated: 44.450 kg Problems List: Problem Onset Comments H/O hyperlipidemia History of restless legs syndrome Hypothyroid Patient Education Ventral Hernia A ventral hernia is a bulge of tissue from inside the abdomen that pushes through a weak area of the muscles that form the front wall of the abdomen. The tissues inside the abdomen are inside a sac (peritoneum). These tissues include the small intestine, large intestine, and the fatty tissue that covers the intestines (omentum). Sometimes, the bulge that forms a hernia contains intestines. Other hernias contain only fat. Ventral hernias do not go away without surgical treatment. There are several types of ventral hernias. You may have: ? A hernia at an incision site from previous abdominal surgery (incisional hernia). ? A hernia just above the belly button (epigastric hernia), or at the belly button (umbilical hernia). These types of hernias can develop from heavy lifting or straining. ? A hernia that comes and goes (reducible hernia). It may be visible only when you lift or strain. This type of hernia can be pushed back into the abdomen (reduced). ? A hernia that traps abdominal tissue inside the hernia (incarcerated hernia). This type of hernia does not reduce. ? A hernia that cuts off blood flow to the tissues inside the hernia (strangulated hernia). The tissues can start to if this happens. This is a very painful bulge that cannot be reduced. A strangulated hernia is a medical emergency. What are the causes? This condition is caused by abdominal tissue putting pressure on an area of weakness in the abdominal muscles. What increases the risk? The following factors may make you more likely to develop this condition: ? Being male. ? Being 60 or older. ? Being overweight or obese. ? Having had previous abdominal surgery, especially if there was an infection after surgery. ? Having had an injury to the abdominal wall. ? Having had several pregnancies. ? Having a buildup of fluid inside the abdomen (ascites). What are the signs or symptoms? The only symptom of a ventral hernia may be a painless bulge in the abdomen. A reducible hernia may be visible only when you strain, cough, or lift. Other symptoms may include: ? Dull pain. ? A feeling of pressure. Signs and symptoms of a strangulated hernia may include: ? Increasing pain. ? Nausea and vomiting. ? Pain when pressing on the hernia. ? The skin over the hernia turning red or purple. ? Constipation. ? Blood in the stool (feces). How is this diagnosed? This condition may be diagnosed based on: ? Your symptoms. ? Your medical history. ? A physical exam. You may be asked to cough or strain while standing. These actions increase the pressure inside your abdomen and force the hernia through the opening in your muscles. Your health care provider may try to reduce the hernia by pressing on it. ? Imaging studies, such as an ultrasound or CT scan. How is this treated? This condition is treated with surgery. If you have a strangulated hernia, surgery is done as soon as possible. If your hernia is small and not incarcerated, you may be asked to lose some weight before surgery. Follow these instructions at home: ? Follow instructions from your health care provider about eating or drinking restrictions. ? If you are overweight, your health care provider may recommend that you increase your activity level and eat a healthier diet. ? Do not lift anything that is heavier than 10 lb (4.5 kg). ? Return to your normal activities as told by your health care provider. Ask your health care provider what activities are safe for you. You may need to avoid activities that increase pressure on your hernia. ? Take sbvo-zfi-kpnbdko and prescription medicines only as told by your health care provider. ? Keep all follow-up visits as told by your health care provider. This is important. Contact a health care provider if: ? Your hernia gets larger. ? Your hernia becomes painful. Get help right away if: ? Your hernia becomes increasingly painful. ? You have pain along with any of the following: ? Changes in skin color in the area of the hernia. ? Nausea. ? Vomiting. ? Fever. Summary ? A ventral hernia is a bulge of tissue from inside the abdomen that pushes through a weak area of the muscles that form the front wall of the abdomen. ? This condition is treated with surgery, which may be urgent depending on your hernia. ? Do not lift anything that is heavier than 10 lb (4.5 kg), and follow activity instructions from your health care provider. This information is not intended to replace advice given to you by your health care provider. Make sure you discuss any questions you have with your health care provider. Document Released: 03/18/2013 Document Revised: 05/14/2018 Document Reviewed: 10/21/2017 [employer] Patient Education ? 2019 [employer]. Viruses or Bacteria What?s got you sick? Antibiotics only treat bacterial infections. Viral illnesses cannot be treated with antibiotics. When an antibiotic is not prescribed, ask your healthcare professional for tips on how to relieve symptoms and feel better. Usual Cause Illness Viruses Bacteria Antibiotic Needed Cold/Runny Nose NO Bronchitis/Chest Cold (in otherwise healthy children and adults) NO Whooping Cough Yes Flu NO Strep Throat Yes Sore Throat (except strep) NO Fluid in the middle ear (otitis media with effusion) NO Urinary Tract Infection Yes Antibiotics Aren?t Always the Answer www.cdc.gov/getsmart GET SMART Know When Antibiotics Work U.S. Department of Health and Human Services Centers for Disease Control and Prevention December 2013 [facility] Coding Summaryon 09-24-2019 Coding Summary CODING DATE: 09/24/2019 FINAL [facility] STATUS: Home PAYOR: Medicaid HMO ADMIT DX: REASON FOR VISIT DX: E06.3 Autoimmune thyroiditis FINAL DX: PRINCIPAL: E06.3 Autoimmune thyroiditis SECONDARY: PYMT PROC APC STAT DESCRIPTION DOCTOR NAME DATE NOTE: The code number assigned matches the documented diagnosis and / or procedure in the patient's chart. However, the narrative phrase printed from the coding software may appear abbreviated, or result in slightly different terminology. Coded By: Carine Ferraro Date Saved: 09/24/2019 03:29 pm [facility] .Thyroglobulin by SKYLAR LCon 0 09-23-2019 Thyroglobulin by SKYLAR LC 13.6 ng/mL 1.5-38.5 [facility] Comment on above: Result Comment: According to the National Academy of Clinical Biochemistry, the reference interval for Thyroglobulin (TG) should be related to euthyroid patients and not for patients who underwent thyroidectomy. TG reference intervals for these patients depend on the residual mass of the thyroid tissue left after surgery. Establishing a post-operative baseline is recommended. The assay limit of quantitation is 0.1 ng/mL Thyroglobulin measured by Fina Harmony Immunometric Assay Performed At: [facility] [address] [place], [place] [id number] Bebo Jeter PhD Ph:[phone] Performed By: #### 2 [id number] ####[facility] (DEFAULT)[address] [place] [address] Provider Orderson 09-23-2019 Provider Orders [id number] .00OTGTIFF [facility] T3 Free LCon 09-23-2019 Triiodothyronine,Fr ee,Serum LC 2.0 pg/mL 2.0-4.4 [facility] Comment on above: Result Comment: Perf ormed At: [address] [id number] Bebo Jeter PhD Ph:[phone] Performed By: #### 2 [id number], [id number] #### [facility] (DEFAULT) [address] [place] [address] Thyroglobulin Reflex Profile LCon 09-23-2019 Thyroglobulin Antibody LC <1.0 0.0-0.9 [facility] Comment on above: Result Comment: Thyr oglobulin Antibody measured by [employer] Method[employer] Performed At: [address] [id number] Bebo Jeter PhD Ph:[phone] Performed By: #### 2 [id number], [id number], [id number] ####[facility] (DEFAULT)[address] [place] [address] Thyroid Peroxidase (TPO) Ab LCon 09-23-2019 Thyroid Peroxidase (TPO) Ab LC <9 0-34 [facility] Comment on above: Result Comment: Perf ormed At: [address] [id number] Bebo Jeter PhD Ph:[phone] Performed By: #### 2 [id number], [id number], [id number], [id number], [id number], [id number] #### [facility] (DEFAULT) [address] [place] [address] Free T4on 09-22-2019 Free T4 [Mass/Vol] 0.90 ng/dL Normal 0.61-1.12 [facility] Comment on above: Result Comment: Spec imens that contain high levels of Biotin may cause false high results Performed By: #### 2 [id number], [id number], [id number], [id number], [id number], [id number] #### [facility] (DEFAULT) [address] [place] [address] 27924 TSHon 09-22-2019 TSH Qn 2.07 mcIU/mL Normal 0.45-5.33 [facility] Comment on above: Result Comment: Gene ral Population (males and non- females, aged 21-88) 0.45 - 5.33 Females, 1st Trimester 0.05 - 3.70 Females, 2nd Trimester 0.31 - 4.35 Females, 3rd Trimester 0.41 - 5.18 Performed By: #### 2 [id number], [id number], [id number], [id number], [id number], [id number] #### [facility] (DEFAULT) [address] [place] [address] Coding Summaryon 06-18-2019 Coding Summary CODING DATE: 06/18/2019 FINAL [facility] STATUS: Home PAYOR: Medicaid HMO ADMIT DX: REASON FOR VISIT DX: E06.3 Autoimmune thyroiditis FINAL DX: PRINCIPAL: E06.3 Autoimmune thyroiditis SECONDARY: PYMT PROC APC STAT DESCRIPTION DOCTOR NAME DATE NOTE: The code number assigned matches the documented diagnosis and / or procedure in the patient's chart. However, the narrative phrase printed from the coding software may appear abbreviated, or result in slightly different terminology. Coded By: Carine Ferraro Date Saved: 06/18/2019 01:32 pm [facility] US Thyroidon 06-17-2019 US Thyroid EXAM: US Thyroid HISTORY: AUTOIMMUNE THYROIDITIS COMPARISON: None TECHNIQUE: Thyroid ultrasound study was performed. FINDINGS: Right lobe measures 5.0 x 1.6 x 2.2 cm, left lobe measures 5.1 x 1.3 x 1.9 cm in longitudinal, transverse, and AP dimensions. The isthmus measures 0.34 cm in thickness which is within normal limits. Gland is within normal limits for size. No evidence of discrete solid or cystic mass. There is mild heterogeneity bilaterally which may relate to mild adenomatous changes. Vascular evaluation is difficult due to involuntary patient movement per given history. Possibility of Partha's thyroiditis is not excluded. Correlate clinically. IMPRESSION: Thyroid ultrasound study demonstrates mild heterogeneity of the gland which is nonspecific, consider mild adenomatous changes. Vascularity is not well assessed as noted. Possibility of Partha's thyroiditis is not excluded. Final Dictated by: Vincent Huntley MD Dictated DT/TM: 06/17/19 1:08 Signed (Electronic Signature): Vincent Huntley MD 06/17/19 4:26 pm Technologist: KRISTINA [facility] Provider Orderson 06-16-2019 Provider Orders [id number] .[facility] Coding Summaryon 05-29-2019 Coding Summary CODING DATE: 05/29/2019 [facility] STATUS: Home PAYOR: Medicaid HMO ADMIT DX: REASON FOR VISIT DX: R06.02 Shortness of breath FINAL DX: PRINCIPAL: R06.02 Shortness of breath SECONDARY: PYMT PROC APC STAT DESCRIPTION DOCTOR NAME DATE NOTE: The code number assigned matches the documented diagnosis and / or procedure in the patient's chart. However, the narrative phrase printed from the coding software may appear abbreviated, or result in slightly different terminology. Coded By: Deb Law Date Saved: 05/29/2019 12:32 pm [facility] Provider Orderson 05-28-2019 Provider Orders [id number] .[facility] Chest 2 Viewson 0 XR Chest 2 Views EXAM: XR Chest 2 Views HISTORY: SOB (R06.02) remote smoking history COMPARISON: 05/04/2016 TECHNIQUE: PA and lateral views of the chest were obtained. FINDINGS: Heart and mediastinal contours are unremarkable in appearance. No acute infiltrate or consolidations are seen. Mild degenerative changes in the dorsal spine. IMPRESSION: No acute process seen in the chest. Final Dictated by: Vincent Huntley MD Dictated DT/TM: 05/27/19 3:22 Signed (Electronic Signature): Vincent Huntley MD 05/27/19 4:03 pm Technologist: Anatoliy SETH [facility] Vital Signs Date Time Vital Sign Value Performing Clinician Facility 01-29-2022 12:15-0400 Body height 161.29 cm Stevenson Logandimitris Other [facility] Other 01-02-2022 08:47-0400 Body weight 49.9 kg Tai Hinojosa MD Work Phone: [facility] 01-02-2022 08:47-0400 Diastolic blood pressure 77 mm[Hg] Tai Hinojosa MD Work Phone: [facility] 01-02-2022 08:47-0400 Heart rate 68 /min Tai Hinojosa MD Work Phone: [facility] 01-02-2022 08:47-0400 SaO2% (BldA) [Mass fraction] 96 % Tai Hinojosa MD Work Phone: [facility] 01-02-2022 08:47-0400 Systolic blood pressure 128 mm[Hg] Tai Hinojosa MD Work Phone: [facility] 12-06-2021 15:00-0400 Body height 161.29 cm Sena Jabier Other [facility] Other 12-06-2021 15:00-0400 Body temperature 98 [degF] Sena Jabier Other [facility] Other 12-06-2021 15:00-0400 Diastolic blood pressure 85 mm[Hg] Sena Jabier Other [facility] Other 12-06-2021 15:00-0400 Respiratory rate 18 /min Sena Jabier Other [facility] Other 12-06-2021 15:00-0400 SaO2% (BldA) [Mass fraction] 96 % Sena Jabier Other [facility] Other 12-06-2021 15:00-0400 Systolic blood pressure 157 mm[Hg] Sena Jabier Other [facility] Other 10-18-2021 12:35-0400 Diastolic blood pressure 58 mm[Hg] MD Stevenson Corbin Work Phone: [facility] 10-18-2021 12:35-0400 Heart rate 64 /min MD Stevenson Corbin Work Phone: [facility] 10-18-2021 12:35-0400 Respiratory rate 16 /min MD Stevenson Corbin Work Phone: [facility] 10-18-2021 12:35-0400 SaO2% (BldA) [Mass fraction] 95 % MD Stevenson Corbin Work Phone: [facility] 10-18-2021 12:35-0400 Systolic blood pressure 146 mm[Hg] MD Stevenson Corbin Work Phone: [facility] 10-18-2021 12:19-0400 Body height 160.02 cm MD Stevenson Corbin Work Phone: [facility] 10-18-2021 12:19-0400 Body mass index (BMI) [Ratio] 18.1 kg/m2 MD Stevenson Corbin Work Phone: [facility] 10-18-2021 12:19-0400 Body weight 46.6 kg MD Stevenson Corbin Work Phone: [facility] 10-18-2021 11:35-0400 Inhaled oxygen flow rate 2 L/min MD Stevenson Corbin Work Phone: [facility] 10-18-2021 10:53-0400 Body temperature 97.1 [degF] MD Stevenson Corbin Work Phone: [facility] 09-25-2021 14:35-0400 Diastolic blood pressure 78 mm[Hg] Alexey Garcia Furlong Work Phone: [facility] 250 DO Work Phone: 09-25-2021 14:35-0400 Systolic blood pressure 162 mm[Hg] Alexey G Furlong Work Phone: [facility] DO Work Phone: 09-25-2021 14:32-0400 Body height 160.02 cm Alexey G Furlong Work Phone: [facility] DO Work Phone: 09-25-2021 14:32-0400 Body mass index (BMI) [Ratio] 18.42 kg/m2 Alexey Pedersonlong Work Phone: [facility] 250 DO Work Phone: 09-25-2021 14:32-0400 Body surface area Derived from formula 1.46 m2 Alexey Garcia Furlong Work Phone: [facility] 250 DO Work Phone: 09-25-2021 14:32-0400 Body weight 47.17 kg Alexey Pedersonlong Work Phone: [facility] 250 DO Work Phone: 09-25-2021 14:32-0400 Diastolic blood pressure 90 mm[Hg] Alexey Pedersonlong Work Phone: [facility] 250 DO Work Phone: 09-25-2021 14:32-0400 Heart rate 83 /min Alexey Pedersonlong Work Phone: [facility] 250 DO Work Phone: 09-25-2021 14:32-0400 Systolic blood pressure 168 mm[Hg] Alexey Pedersonlong Work Phone: [facility] 250 DO Work Phone: 09-13-2021 12:08-0400 Body height 160.02 cm MD Stevenson Corbin Work Phone: [facility] 09-13-2021 12:08-0400 Body mass index (BMI) [Ratio] 18.6 kg/m2 MD Stevenson Corbin Work Phone: [facility] 09-13-2021 12:08-0400 Body weight 47.8 kg MD Stevenson Corbin Work Phone: [facility] 05-30-2021 09:45-0500 Body height 161.29 cm Stevenson Fordxa Other [facility] Other 05-30-2021 09:45-0500 Body mass index (BMI) [Ratio] 16.39 kg/m2 Stevenson Olexa Other [facility] Other 05-30-2021 09:45-0500 Body weight 42.64 kg Stevenson Olexa Other [facility] Other 03-22-2021 14:00-0500 Body height 161.29 cm Radha Pegueromarybel Other [facility] Other 03-22-2021 14:00-0500 Body mass index (BMI) [Ratio] 16.56 kg/m2 Radha Pegueromarybel Other [facility] Other 03-22-2021 14:00-0500 Body temperature 98.2 [degF] Radha Pegueromarybel Other [facility] Other 03-22-2021 14:00-0500 Body weight 43.09 kg Radha Pegueromarybel Other [facility] Other 03-22-2021 14:00-0500 Diastolic blood pressure 60 mm[Hg] Radha Hiro Other [facility] Other 03-22-2021 14:00-0500 Respiratory rate 18 /min Radha Hiro Other [facility] Other 03-22-2021 14:00-0500 SaO2% (BldA) [Mass fraction] 96 % Radha Pegueromarybel Other [facility] Other 03-22-2021 14:00-0500 Systolic blood pressure 140 mm[Hg] Radha Bosch Other [facility] Other Encounters Encounter Date Encounter Type Care Provider Facility Start: 03-04-2023 End: 03-05-2023 ambulatory HERVE [facility] Start: 01-08-2023 End: 01-08-2023 ambulatory TAI HINOJOSA Facility:[facility] Start: 07-03-2022 End: 07-03-2022 ambulatory TAI HINOJOSA Facility:[facility] Start: 06-18-2022 Office outpatient vi sit 15 minutes Stevenson Corbin [facility] Start: 06-18-2022 End: 06-18-2022 ambulatory Stevenson Corbin Facility:[facility] Start: 06-18-2022 End: 06-18-2022 ambulatory DO Alexey Polo Work Phone: [facility] Work Phone: Start: 06-18-2022 End: 06-18-2022 Patient encounter procedure DO Alexey Furjasminng Work Phone: [facility] Start: 06-04-2022 End: 06-04-2022 ambulatory LENA HAMEED . Facility:[facility] Start: 04-19-2022 End: 04-19-[address] EVA POOLE . Facility:[facility] Start: 03-23-2022 End: 03-23-[address] ERICK BERG . Facility:[facility] Start: 02-23-2022 End: 02-24-[address] ALEXEY POLO Facility:[facility] Start: 01-29-2022 Office outpatient vi sit 15 minutes Stevenson Corbin [facility] Start: 01-29-2022 End: 01-29-2022 ambulatory Stevenson Corbin [facility] Other Start: 01-27-2022 End: 01-28-[address] EMMA GO Facility:[facility] Start: 01-02-2022 End: 01-02-2022 Patient encounter procedure Tai Hinojosa MD Work Phone: Neurology Comment on above: Lingual facial bucca l dyskinesia (Primary Dx); Dyskinesia, tardive; Dyskinesia, orofacial; Excessive physiologic tremor Start: 12-27-2021 End: 12-27-[address] ALEXEY POLO Facility:[facility] Start: 12-06-2021 End: 12-06-2021 ambulatory Sena Jabier Other [facility] Other Start: 12-06-2021 Office outpatient vi sit 15 minutes Sena Jabier [facility] Start: 12-04-2021 Postop follow up vis it related to original px Stevenson Olexa [facility] Start: 12-04-2021 End: 12-04-2021 ambulatory Stevenson Olexa [facility] Other Start: 12-04-2021 End: 12-04-2021 Patient encounter procedure MD Stevenson Corbin Work Phone: [facility] Start: 11-01-2021 End: 11-01-2021 ambulatory Stevenson Olexa Other [facility] Other Start: 11-01-2021 Telephone encounter Stevenson Corbin [facility] Start: 10-26-2021 Postop follow up vis it related to original px Stevenson Olexa [facility] Start: 10-26-2021 End: 10-26-2021 ambulatory Stevenson Olexa [facility] Other Start: 10-26-2021 End: 10-26-2021 Patient encounter procedure MD Stevenson Corbin Work Phone: [facility] Start: 10-18-2021 End: 10-18-2021 ambulatory Stevenson Olexa Facility:[facility] Start: 10-18-2021 End: 10-18-2021 Admission to same day surgery center MD Stevenson Corbin Work Phone: [facility] Start: 10-17-2021 End: 10-17-2021 ambulatory Stevenson Corbin Other [facility] Other Start: 10-17-2021 Telephone encounter Stevenson Corbin [facility] Start: 10-13-2021 End: 10-13-2021 ambulatory Stevenson Corbin Facility:[facility] Start: 10-13-2021 End: 10-13-2021 Patient encounter procedure MD Stevenson Corbin Work Phone: [facility] Start: 10-09-2021 End: 10-09-2021 Patient encounter procedure MD Stevenson Corbin Work Phone: [facility] Start: 09-25-2021 Office consultation new/estab patient 60 min Alexey Polo Work Phone: [facility] 250 DO Work Phone: Start: 09-20-2021 End: 09-20-2021 ambulatory Stevenson Corbin Facility:[facility] Start: 09-20-2021 End: 09-20-2021 Departed Referred MD Stevenson Corbin Work Phone: [facility] Start: 09-18-2021 Telephone encounter Stevenson Corbin [facility] Start: 09-18-2021 End: 09-18-2021 ambulatory Stevenson Corbin [facility] Other Start: 09-18-2021 End: 09-18-2021 Patient encounter procedure MD Stevenson Corbin Work Phone: [facility] Start: 09-13-2021 End: 09-13-2021 ambulatory Stevenson Corbin Facility:[facility] Start: 08-22-2021 End: 08-22-[address] ALEXEY POLO Facility: Start: 07-12-2021 Telephone encounter Tai johnson MD Work Phone: Neurology Comment on above: Insurance Authorizat ion Start: 06-29-2021 End: 06-30-[address] ALEXEY POLO Facility: Start: 05-30-2021 End: 05-30-2021 ambulatory Stevenson Corbin Other [facility] Other Start: 05-30-2021 Office outpatient ne w 30 minutes Stevenson Corbin [facility] Start: 03-22-2021 End: 03-22-2021 ambulatory Radha Bosch Other [facility] Other Start: 03-22-2021 Office outpatient vi sit 15 minutes Essam Hiro [facility] Start: 06-16-2020 End: 06-17-2020 ambulatory HERVE JAKY Facility:[facility] Patient encounter status Alexey Polo Work Phone: [facility] 250 DO Work Phone: Procedures Date Procedure Procedure Detail Performing Clinician Start: 06-18-2022 Plain X-ray of right shoulder DO Alexey Polo Work Phone: Start: 12-04-2021 Plain X-ray of right shoulder MD Stevenson Corbin Work Phone: Start: 10-26-2021 Plain X-ray of right shoulder MD Stevenson Corbin Work Phone: Start: 10-18-2021 Plain X-ray of right shoulder MD Stevenson Corbin Work Phone: Start: 10-18-2021 Prosthetic total arthroplasty of right shoulder MD Stevenson Corbin Work Phone: Start: 08-08-2020 Adult depression scr eening assessment Tai Hinojosa MD Work Phone: Operation on rectum Alexey Polo Work Phone: Total colonoscopy Alexey choudhury Work Phone: Plan of Treatment Date Care Activity Detail Author Start: 12-14-2021 Influenza vaccination INFLUENZA (#1) [facility] Start: 12-04-2021 Plain X-ray of right shoulder XR shoulder RT min 2V* [facility] Start: 12-04-2021 End: 12-04-2021 Patient encounter procedure Departed Clinical [facility] [facility] Start: 10-18-2021 End: 10-18-2021 [facility] Work Phone: Start: 09-20-2021 Prosthetic total arthroplasty of right shoulder OR Shoulder Arthroplasty-Total (Right) [facility] Start: 08-08-2021 Adult depression screening assessment DEPRESSION SCREENING [facility] Start: 04-15-2021 ADVANCE DIRECTIVE DISCUSSION ADVANCE DIRECTIVE DISCUSSION [facility] Start: 2020 BONE DENSITY BONE DENSITY [facility] Start: 2020 PNEUMOCOCCAL: 65+ (1 - PCV) PNEUMOCOCCAL: 65+ (1 - PCV) [facility] Start: 2005 SHINGRIX VACCINE (1 of 2) SHINGRIX VACCINE (1 of 2) [facility] Start: 2000 COLOGUARD (FIT-DNA) COLOGUARD (FIT-DNA) [facility] Start: 2000 Colonoscopy COLONOSCOPY [facility] Start: 2000 COLORECTAL CANCER SCREENING COLORECTAL CANCER SCREENING [facility] Start: [address] COLONOGRAPHY [facility] Start: 2000 DIABETES SCREEN DIABETES SCREEN [facility] Start: 2000 FECAL OCCULT BLOOD FECAL OCCULT BLOOD [facility] Start: 2000 LIPID SCREEN LIPID SCREEN [facility] Start: 2000 SIGMOIDOSCOPY SIGMOIDOSCOPY [facility] Start: 1995 Mammography MAMMOGRAM [facility] Start: 1974 Urine microalbumin profile DTAP,TDAP,TD (1 - Tdap) [facility] Start: 1973 HEPATITIS C SCREENING HEPATITIS C SCREENING [facility] Start: 1955 COVID-19 VACCINE (#1) COVID-19 VACCINE (#1) [facility] Immunizations Immunization Date Immunization Notes Care Provider Venkat askew 03-26-2021 Pfizer-BioNTech COVI D-19 Vacc 30 MCG/0.3ML Intramuscular Suspension Alexey Polo Work Phone: [facility] 01-10-2021 Fluzone High-Dose Quadrivalent 0.7 ML Intramuscular Suspension Prefilled Syringe Alexey Polo Work Phone: [place] [address] DO Work Phone: 12-28-2020 diphtheria, tetanus toxoids and pertussis vaccine Alexey Polo Work Phone: [place] [address] DO Work Phone: 07-14-2020 Pfizer-TigglyNTHealthyOut COVI D-19 Vacc 30 MCG/0.3ML Intramuscular Suspension Alexey Polo Work Phone: [facility] 06-28-2020 tetanus toxoid, redu anne diphtheria toxoid, and acellular pertussis vaccine, adsorbed [facility] Work Phone: [facility] 06-23-2020 Pfizer-BioNTech COVI D-19 Vacc 30 MCG/0.3ML Intramuscular Suspension Alexey Pedersontresa Work Phone: [facility] 12-19-2019 influenza, injectabl e, quadrivalent, preservative free [facility] Work Phone: [place] [address] DO Work Phone: 10-28-2019 zoster vaccine recombinant [facility] Work Phone: [place] [address] DO Work Phone: 02-25-2019 zoster vaccine recombinant [facility] Work Phone: [place] [address] DO Work Phone: 12-25-2018 influenza, injectabl e, quadrivalent, preservative free [facility] Work Phone: [place] [address] DO Work Phone: 12-25-2018 pneumococcal conjuga te vaccine, 13 valent Alexey Garcia [employer] Work Phone: [place] [address] DO Work Phone: 12-20-2017 influenza, injectabl e, quadrivalent, preservative free Alexey G Furlong [facility] Work Phone: 12-14-2016 influenza, injectabl e, quadrivalent, preservative free Alexey G Furlong Work Phone: [facility] Work Phone: 11-20-2015 influenza, seasonal, injectable, preservative free Alexey G Furlong Work Phone: [facility] Work Phone: 11-20-2015 pneumococcal polysaccharide vaccine, 23 valent Alexey Garcia Furlong Work Phone: [facility] [employer] DO Work Phone: 11-20-2015 zoster vaccine, live Alexey Garcia Furlong Work Phone: [facility] 250 DO Work Phone: 12-31-2014 influenza, seasonal, injectable, preservative free Alexey G Furlong Work Phone: [facility] Work Phone: Payers Date Payer Category Payer Private Health Insurance [id number] 2021 Self-pay [id number] 2020 Medicare MEDICARE MEDICAR E A AND B [id number] 2020-Present [phone] [address] [address] [place] [address] Medicare [id number] 2013 Medicaid MEDICAID [facility] MEDICAID [id number] 2013-Present [phone] [address] [place] [address] Medicaid [id number] 1959 Medicaid [id number] 1959 Medicare [id number] 1955 Unknown [id number] [id number] 47 1955 Unknown [id number] 2.16.840.1.562087.3.579.2.5 93 1955 Unknown [id number] 2.16.840.1.136135.3.579.2.5 93 1955 Unknown [id number] 2.16.840.1.569413.3.579.2.5 93 1955 Unknown [id number] 2.16.840.1.010984.3.579.2.5 93 1955 Unknown [id number] 2.16.840.1.408185.3.579.2.5 93 1955 Unknown [id number] 2.16.840.1.419526.3.579.2.5 93 1955 Unknown [id number] 2.16.840.1.073848.3.579.2.5 93 1955 Unknown [id number] 2.16.840.1.696690.3.579.2.5 93 Unknown Unknown [id number] 2.16.840.1.052245.3.579.2.5 31 Unknown [id number] 2.16.840.1.227171.3.579.2.5 31 Unknown [id number] 2.16.840.1.308999.3.579.2.5 31 Unknown [id number] 2.16.840.1.409090.3.579.2.5 31 Unknown [id number] 2.16.840.1.682197.3.579.2.5 31 Unknown [id number] 2.16.840.1.022507.3.579.2.5 31 Unknown [id number] 2.16.840.1.693047.3.579.2.5 31 Unknown [id number] 2.16.840.1.961675.3.579.2.5 31 Unknown [id number] 2.16.840.1.503120.3.579.2.5 31 Social History Date Type Detail Facility Daily caffeine consumption Daily caffeine consumption [facility] Other Comment on above: 1-2 cups of coffee d aily. Occas iced tea. Diet coke ocassional; Quit in ; Sex Assigned At Sex Assigned At Bir [facility] Other Start: 10-18-2021 End: 10-18-2021 Tobacco smoking status MEIS Ex-smoker (finding) [facility] Start: 1955 Sex Assigned At Female F [facility] End: 07-21-2017 History of tobacco use Current smoker [facility] End: 07-21-2017 History of tobacco use Cigarette Smoker [facility] Start: 07-21-2018 End: 01-02-2022 Tobacco use and exposure Smokeless tobacco non-user [facility] Start: 08-10-2020 End: 01-02-2022 Alcohol intake Lifetime non-drinker (finding) [facility] Start: 07-21-2018 History SDOH Alcohol Frequency 1 [facility] Start: 1955 Sex Assigned At Not on file [facility] Start: 12-23-2021 End: 01-02-2022 Exposure to SARS-CoV-2 (event) Not sure [facility] Medical Equipment Procedure Code Equipment Code Equipment Origin al Text Equipment Identifier Dates Arthroplasty, shoulder, total Total reverse shoulder prosthesis ()[id number] FDA Start: 10-18-2021 Arthroplasty, shoulder, total Total reverse shoulder prosthesis ()[id number] FDA Start: 10-18-2021 Arthroplasty, shoulder, total Total reverse shoulder prosthesis ()[id number] FDA Start: 10-18-2021 Arthroplasty, shoulder, total Total reverse shoulder prosthesis [id number] FDA Start: 10-18-2021 Arthroplasty, shoulder, total Total reverse shoulder prosthesis [id number] [id number] 16 FDA Start: 10-18-2021 Arthroplasty, shoulder, total Total reverse shoulder prosthesis [id number] FDA Start: 10-18-2021 Arthroplasty, shoulder, total Total reverse shoulder prosthesis [id number] FDA Start: 10-18-2021 Arthroplasty, shoulder, total Total reverse shoulder prosthesis [id number] FDA Start: 10-18-2021 Arthroplasty, shoulder, total Total reverse shoulder prosthesis ()[id number] FDA Start: 10-18-2021 Arthroplasty, shoulder, total Total reverse shoulder prosthesis [id number] FDA Start: 10-18-2021 Goals Date Patient Goal Desired Activity /State Clinical Notes 03-22-2021 to 03-04-2023 Note Date & Type Note Facility 03-04-2023 Note HPI *Left hip Reported by patient. Location: left Quality: increasing Severity: moderate to severe pain Context: walker Aggravating Factors: cannot identify Associated Symptoms: no redness; no warmth; no ecchymosis; no drainage; no swelling; no fever; no chills; no calf pain Previous Surgery: surgical procedure: Prior Imaging: x ray ORIF left hip fx [id number] ORIF LT HIP ROS Patient reports no fever, no chills, and no night sweats. She reports no redness or warmth left hip Physical Exam Patient is a 67-year-old female. Constitutional: General Appearance: NAD and comfort comfortable. Psychiatric: Orientation: oriented to time, place, and person. Mood and Affect: normal affect and mood and active and alert. Gait and Station: Appearance: ambulating with walker. Cardiovascular System: Arterial Pulses Right: hand edema none and pedal edema none. Lymph Nodes: Mood and Affect: mood and affect normal. Hips: Bony Palpation Left: no tenderness of the iliac crest, the ASIS, or the PSIS. Soft Tissue Palpation Left: no tenderness of the hip flexor muscles, the hip adductor muscles, or the biceps femoris muscle. Passive Range of Motion Left: no pain with motion. Head: Head: atraumatic Neck: Neck: trachea midline. Lungs: Respiratory effort: no dyspnea. Musculoskeletal:: General Appearance: no swelling, tenderness, or warmth and wound clean and dry and neurovascular intact; calf soft and nontender bilateral. Orientation: Orientation: person yes, place yes, and time yes. 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 Author Type: Physician Type: Progress Notes Filed: 01/08/2023 2:41 PM Note Text: January 08, 2023 Tai Hinojosa MD [address] / [place] [id number] Esteban Garza MD ([facility]) [address] [place] [address] Melanie Espinoza : 1955 Interval History: Melanie Espinoza is a 67 year old woman with a 5 year history of facial - and now body - dyskinesias returning for follow up. The patient is seen alone. The tremoring is getting worse. Increasing the Austedo to 24 was helpful. There is no side effect. She has some walking difficulty, but this is in part due to her hip issues. She still tolerates primidone 250 mg bid. She tolerates Klonopin 1 mg tid with no sleepiness - she further still needs a sleeping pill at night. She feels that her memory is pretty good. Her methocarbamol was switched to flexeril for insurance reasons. Allergies: ALLERGIES No Known Allergies Current Medications: busPIRone (BUSPAR) 10 mg tablet Take 10 mg by mouth three times daily. deutetrabenazine (AUSTEDO) 12 mg tab Take 2 tablets (24 mg) by mouth twice daily with meals. amLODIPine (NORVASC) 5 mg tablet Take by mouth once daily. atorvastatin (LIPITOR) 40 mg tablet Take 40 mg by mouth once daily. menthol (BIOFREEZE, MENTHOL,) 4 % topical gel Apply to affected area three times daily as needed. calcium carbonate (CALTRATE) 600 mg calcium (1,500 mg) tab Take 600 mg by mouth. Fluticasone Propionate 50 mcg/actuation diskus inhaler Inhale 1 Puff as instructed twice daily. alendronate (FOSAMAX) 70 mg tablet Take 70 mg by mouth one time a week. In AM with cup of water on empty stomach. Nothing else by mouth and stay upright for 30 min. loperamide (IMODIUM) 2 mg cap(s) Take 2 mg by mouth four times daily as needed. polyethylene glycol 3350 17 gram/dose powder Take by mouth once daily. Dissolve dose in 4 - 8 ounces of liquid and take as directed. pantoprazole DR (PROTONIX) 40 mg tablet Take 40 mg by mouth once daily. sodium chloride 1 g tab Take 1 g by mouth three times daily. sucralfate (CARAFATE) 1 gram tablet Take 1 g by mouth four times daily. acetaminophen (TYLENOL) 500 mg tablet Take 500 mg by mouth every 8 hours as needed. ondansetron (ZOFRAN) 4 mg tablet Take by mouth every 8 hours as needed for nausea/vomiting. clonazePAM (KLONOPIN) 1 mg tablet Take 1 tablet by mouth three times daily for 90 days. [including bedtime] gabapentin (NEURONTIN) 300 mg capsule Take 1 capsule in the morning, one in early afternoon, and 2 in the evening primidone (MYSOLINE) 250 mg tablet Take 1 tablet by mouth twice daily. cyclobenzaprine (FLEXERIL) 10 mg tablet guaiFENesin-dextromethorphan (ROBITUSSIN DM) 100-10 mg/5 mL syrup Take 10 mL by mouth every 6 hours as needed. levothyroxine (SYNTHROID) 75 mcg tablet traZODone (DESYREL) 100 mg tablet HYDROcodone-acetaminophen (NORCO) 5-325 mg per tablet Take 1 tablet by mouth every 8 hours as needed for pain. (Patient not taking: Reported on 01/08/2023) gabapentin (NEURONTIN) 600 mg tablet Take 600 mg by mouth three times daily. (Patient not taking: Reported on 01/08/2023) busPIRone (BUSPAR) 15 mg tablet Take 15 mg by mouth three times daily. (Patient not taking: Reported on 01/08/2023) clonazePAM (KLONOPIN) 1 mg tablet Take 1 mg by mouth twice daily as needed. (Patient not taking: Reported on 01/08/2023) ferrous sulfate 325 mg (65 mg iron) tablet Take 325 mg by mouth daily with breakfast. (Patient not taking: Reported on 01/08/2023) Ibuprofen 200 mg cap Take by mouth every 6 hours as needed. (Patient not taking: Reported on 01/08/2023) methocarbamol (ROBAXIN) 750 mg tablet Take 750 mg by mouth four times daily. (Patient not taking: Reported on 01/08/2023) busPIRone (BUSPAR) 5 mg tablet Take 1 tablet by mouth three times daily. (Patient taking differently: Take 10 mg by mouth three times daily. ) escitalopram oxalate (LEXAPRO) 20 mg tablet Take 20 mg by mouth once daily. alendronate (FOSAMAX) 70 mg tablet once each week. pravastatin (PRAVACHOL) 40 mg tablet Take 40 mg by mouth once daily. Magnesium 250 mg tab Take 250 mg by mouth. (Patient not taking: Reported on 01/08/2023) ascorbic acid, vitamin C, (VITAMIN C WITH NOVA HIPS) 500 mg tablet Take 500 mg by mouth once daily. Ferrous Sulfate 325 mg (65 mg iron) cpER Take by mouth. pantoprazole DR (PROTONIX) 40 mg tablet Take 40 mg by mouth twice daily. Review of Systems: She has been having heartburn is supposed to have an EGD There is no CP, SOB, N/V/C/D, urinary issues, headache, vision change, mood change, or skin issues No other medical issues Physical Examination: General Description of Patient: no acute distress; quivering in wheelchair Blood pressure 150/72, pulse 83, h (more content not included)... [facility] 07-03-2022 Note HNO ID: [id number] Author: Tai Hinojosa MD Service: ? Author Type: Physician Type: Progress Notes Filed: 07/03/2022 12:35 PM Note Text: July 03, 2022 Tai Hinojosa MD [address] / [address] [address] Esteban Garza MD ([facility]) [address] [place] [id number] Melanie Espinoza : 1955 Interval History: Melanie Espinoza is a 67 year old woman with a 4.5 year history of facial - and now body - dyskinesias returning for follow up. The patient is seen alone. She tolerated the increase of Austedo to 18 mg, and there is an improvement in her movement. There is no side effect. She is not sleepy during the day. She can walk with a walker. Allergies: ALLERGIES No Known Allergies Current Medications: HYDROcodone-acetaminophen (NORCO) 5-325 mg per tablet Take 1 tablet by mouth every 8 hours as needed for pain. busPIRone (BUSPAR) 10 mg tablet Take 10 mg by mouth three times daily. gabapentin (NEURONTIN) 600 mg tablet Take 600 mg by mouth three times daily. amLODIPine (NORVASC) 5 mg tablet Take by mouth once daily. atorvastatin (LIPITOR) 40 mg tablet Take 40 mg by mouth once daily. menthol (BIOFREEZE, MENTHOL,) 4 % topical gel Apply to affected area three times daily as needed. busPIRone (BUSPAR) 15 mg tablet Take 15 mg by mouth three times daily. calcium carbonate (CALTRATE) 600 mg calcium (1,500 mg) tab Take 600 mg by mouth. clonazePAM (KLONOPIN) 1 mg tablet Take 1 mg by mouth twice daily as needed. ferrous sulfate 325 mg (65 mg iron) tablet Take 325 mg by mouth daily with breakfast. Fluticasone Propionate 50 mcg/actuation diskus inhaler Inhale 1 Puff as instructed twice daily. alendronate (FOSAMAX) 70 mg tablet Take 70 mg by mouth one time a week. In AM with cup of water on empty stomach. Nothing else by mouth and stay upright for 30 min. Ibuprofen 200 mg cap Take by mouth every 6 hours as needed. loperamide (IMODIUM) 2 mg cap(s) Take 2 mg by mouth four times daily as needed. levothyroxine 75 mcg cap Take 75 mcg by mouth daily before breakfast. methocarbamol (ROBAXIN) 750 mg tablet Take 750 mg by mouth four times daily. polyethylene glycol 3350 17 gram/dose powder Take by mouth once daily. Dissolve dose in 4 - 8 ounces of liquid and take as directed. pantoprazole DR (PROTONIX) 40 mg tablet Take 40 mg by mouth once daily. sodium chloride 1 g tab Take 1 g by mouth three times daily. sucralfate (CARAFATE) 1 gram tablet Take 1 g by mouth four times daily. traZODone (DESYREL) 150 mg tablet Take 150 mg by mouth daily at bedtime. acetaminophen (TYLENOL) 500 mg tablet Take 500 mg by mouth every 8 hours as needed. gabapentin (NEURONTIN) 300 mg capsule Take 1 capsule in the morning, one in early afternoon, and 2 in the evening primidone (MYSOLINE) 250 mg tablet Take 1 tablet by mouth twice daily. Magnesium 250 mg tab Take 250 mg by mouth. ondansetron (ZOFRAN) 4 mg tablet Take by mouth every 8 hours as needed for nausea/vomiting. deutetrabenazine (AUSTEDO) 12 mg tab Take 1 tablet (12 mg) by mouth twice daily with meals. deutetrabenazine (AUSTEDO) 9 mg tab Take 2 tablets (18 mg) by mouth twice daily with meals. clonazePAM (KLONOPIN) 1 mg tablet Take 1 tablet by mouth three times daily for 90 days. [including bedtime] busPIRone (BUSPAR) 5 mg tablet Take 1 tablet by mouth three times daily. (Patient taking differently: Take 10 mg by mouth three times daily. ) escitalopram oxalate (LEXAPRO) 20 mg tablet Take 20 mg by mouth once daily. alendronate (FOSAMAX) 70 mg tablet once each week. pravastatin (PRAVACHOL) 40 mg tablet Take 40 mg by mouth once daily. ascorbic acid, vitamin C, (VITAMIN C WITH NOVA HIPS) 500 mg tablet Take 500 mg by mouth once daily. Ferrous Sulfate 325 mg (65 mg iron) cpER Take by mouth. levothyroxine (SYNTHROID) 100 mcg tablet Take 100 mcg by mouth once daily. pantoprazole DR (PROTONIX) 40 mg tablet Take 40 mg by mouth twice daily. Review of Systems: There is no CP, SOB, N/V/C/D, urinary issues, headache, vision change, mood change, or skin issues No other medical issues Physical Examination: General Description of Patient: constantly moving in her chair Blood pressure 135/82, pulse 88, weight 49.9 kg (110 lb), SpO2 95 %. FOCUSED NEUROLOGIC EXAMINATION: Mental Status: Alert and Oriented to person, place, and date Cranial Nerves: clear voice, not shaky; lips continue to move Motor: no significant action tremor, but there is slight quivering; otherwise she moves her arms around Coordination: no action tremor, just constant moving, even lifting herself briefly and slightly off of the chair Gait: sitting in wheelchair Assessment: Ms. 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 She tolerates 18 mg bid of Austedo. This could b (more content not included)... [facility] 06-18-2022 Evaluation note Encounter Date Diagnosis Assessment Notes Jun, Tear of right rotator cuff, unspecified tear extent, unspecified whether traumatic (ICD-10 - M75.101) Jun, Arthritis of right glenohumeral joint (ICD-10 - M19.011) Xrays were reivewed with patient in detail. Patient is progressing well from surgery. We discussed the importance of continuing motion and strength exercise. 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 She is progressing well from surgery. Instructed on continued motion and strengthening exercises, these were demonstrated. Call with questions/concerns. [facility] Other 09-20-2022 Instructions* Patient Instructions* Tai Hinojosa MD - 01/02/2022 9:43 AM EDT 1) Double the dose of Austedo to 12 mg twice a day for 1 month, then increase further to 18 mg 2) continue clonazepam and methocarbamol 3) continue primidone for the action tremor [facility] of Present illness Narrative* Tai Hinojosa MD - 01/02/2022 9:25 AM EDT January 02, 2022 Tai Hinojosa MD [address] / [address] [address] Esteban Garza MD ([facility]) [facility] [place] [address] Melanie Espinoza : 1955 Interval History: Melanie Espinoza is a 66 year old woman with a 4 year history of facial - and now body- dyskinesias returning for follow up. The patient is seen alone. Her sodium has been more stable recently. She had a total shoulder replacement in October. Stopping the VMAT-2 inhibitor allowed the body movements to worsen. She is now on Austedo 6 mg bid,and it is better than nothing. Allergies: ALLERGIES No Known Allergies Current Medications: amLODIPine (NORVASC) 5 mg tablet Take by mouth once daily. atorvastatin (LIPITOR) 40 mg tablet Take 40 mg by mouth once daily. menthol (BIOFREEZE, MENTHOL,) 4 % topical gel Apply to affected area three times daily as needed. busPIRone (BUSPAR) 15 mg tablet Take 15 mg by mouth three times daily. calcium carbonate (CALTRATE) 600 mg calcium (1,500 mg) tab Take 600 mg by mouth. clonazePAM (KLONOPIN) 1 mg tablet Take 1 mg by mouth twice daily as needed. ferrous sulfate 325 mg (65 mg iron) tablet Take 325 mg by mouth daily with breakfast. Fluticasone Propionate 50 mcg/actuation diskus inhaler Inhale 1 Puff as instructed twice daily. alendronate (FOSAMAX) 70 mg tablet Take 70 mg by mouth one time a week. In AM with cup of water on empty stomach. Nothing else by mouth and stay upright for 30 min. Ibuprofen 200 mg cap Take by mouth every 6 hours as needed. loperamide (IMODIUM A-D) 2 mg cap(s) Take 2 mg by mouth four times daily as needed. levothyroxine 75 mcg cap Take 75 mcg by mouth daily before breakfast. methocarbamol (ROBAXIN) 750 mg tablet Take 750 mg by mouth four times daily. polyethylene glycol 3350 (MIRALAX) 17 gram/dose powder Take by mouth once daily. Dissolve dose in 4- 8 ounces of liquid and take as directed. pantoprazole DR (PROTONIX) 40 mg tablet Take 40 mg by mouth once daily. sodium chloride 1 g tab Take 1 g by mouth three times daily. sucralfate (CARAFATE) 1 gram tablet Take 1 g by mouth four times daily. traZODone (DESYREL) 150 mg tablet Take 150 mg by mouth daily at bedtime. acetaminophen (TYLENOL EXTRA STRENGTH) 500 mg tablet Take 500 mg by mouth every 8 hours as needed. ondansetron (ZOFRAN) 4 mg tablet Take by mouth every 8 hours as needed for nausea/vomiting. deutetrabenazine (AUSTEDO) 6 mg tab Take 1 tablet (6 mg) by mouth twice daily with meals. gabapentin (NEURONTIN) 300 mg capsule Take 1 capsule in the morning, one in early afternoon, and 2 in the evening primidone (MYSOLINE) 250 mg tablet Take 1 tablet by mouth twice daily. Magnesium 250 mg tab Take 250 mg by mouth. clonazePAM (KLONOPIN) 1 mg tablet Take 1 tablet by mouth three times daily for 90 days. [including bedtime] busPIRone (BUSPAR) 5 mg tablet Take 1 tablet by mouth three times daily. (Patient taking differently: Take 10 mg by mouth three times daily. ) escitalopram oxalate (LEXAPRO) 20 mg tablet Take 20 mg by mouth once daily. alendronate (FOSAMAX) 70 mg tablet once each week. pravastatin (PRAVACHOL) 40 mg tablet Take 40 mg by mouth once daily. ascorbic acid, vitamin C, (VITAMIN C WITH NOVA HIPS) 500 mg tablet Take 500 mg by mouth once daily. Ferrous Sulfate 325 mg (65 mg iron) cpER Take by mouth. levothyroxine (SYNTHROID) 100 mcg tablet Take 100 mcg by mouth once daily. pantoprazole DR (PROTONIX) 40 mg tablet Take 40 mg by mouth twice daily. Review of Systems: There is no CP, SOB, N/V/C/D, urinary issues, headache, vision change, mood change, or skin issues No other medical issues Physical Examination: General Description of Patient: Well appearing, comfortable and Thin Blood pressure 128/77, pulse 68, weight 49.9 kg (110 lb), SpO2 96 %. FOCUSED NEUROLOGIC EXAMINATION: Mental Status: Alert and Oriented to person, place, and date Cranial Nerves: clear voice; pursing and moving lips Motor: dystonic dyskinetic movements Coordination: no action tremor Gait: independent; slow; holds herself asymmetrically, with elevated R shoulder Assessment: Ms. Espinoza is a 66 year old woman with a 4 year history of involuntary movements partially responsive to VMAT-2 inhibitors. She is taking a low dose of her current one; this should be increased. In the past, she reported that her movements got worse on Austedo, but it is unclear what was goingon, so a rechallenge is acceptable. Plan: 1) Double the dose of Austedo to 12 mg bid for 1 month, then increase further to 18 mg 2) continue clonazepam and methocarbamol 3) continue primidone for the action tremor Follow Up: Ms. Espinoza will follow up in 6 months for an office visit. Prognosis and treatment plan discussed with the patient. Level of service: Est level 3 (20-29 min). Time spent 25 min on the day of service, which included [id number] patient care, completing clinical documentation, obtaining and/or reviewing separately obtained history, performing a medically appropriate examination, counseling and educating the patient/family/caregiver, and ordering medications, tests, or procedures. Thank you for including me in the care of this interesting patient. 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 Her sodium is within normal limit. Continue fluid restriction. Nov, HTN (hypertension) (ICD-10 - I10) Blood pressure is high today but usually well controlled at the detention. Continue current medications. Nov, Hydronephrosis (ICD-10 - N13.30) She reported that she was seen by neurologist and had extensive work-up done. She was advised intervention needed. Nov, Dyslipidemia (ICD-10 - E78.5) Continue statins. Continue follow with PCP for LFTs and lipid profile monitoring. [facility] Other 08-22-2022 Evaluation note* Encounter Date Diagnosis Assessment Notes Treatment Notes Treatment Clinical Notes Nov, Tear of right rotator cuff, unspecified tear extent, unspecified whether traumatic (ICD-10 - M75.101) Xrays were reviewed with patient in detail Patient instructed on discontinuing the sling. Begin gentle acitve assisted motion exercise including table and wall walks. This was demonstrated. Instructed on progression of motion exercise in flexion, internal rotation and external rotation. Instructed on use of heat to help with motion. 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 Instructed on gentle motion exercises including table and wall walks. Cautioned patient to avoid strenuous PT exercises, should be doing exercises on her own. Call with questions/concerns . 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 But I realized that the patient is getting the medication through her assisted living facility. Itired calling the patient multiple times and the phone was giving a busy signal each time. I calledthe assisted living facility and the patient was at lunch and I asked the nurse to have the patientreach out and ask to speak with me so I could figure out what the letter said and figure out where to start with the PA that needs to be done. Again with this last message no number was left to call the facility back so I googled and called them and left a message asking them to fax the letter so I can start working on the PA. Mary Gibbs Ma * Telephone Encounter - Vicenta Tolbert RN - 07/12/2021 12:53 PM EDT Donita calling from [facility] States the pt received a letter from insurance [employer] that medication Austedo 6 mg was denied. Will need prior authorization. Can you please assist with PA. Chelsea requesting that once PA approved to fax to them at [phone]. Thanks. * Telephone Encounter - Kailey Andrews - 07/12/2021 11:08 AM EDT Patient called and would like to know if the doctor can reach out to the insurance company to do a prior auth for Austedo 6mg to receive medication.Please advise Thank you, Kailey documented in this encounterC[facility]03-17-2022 NotePROCEDURE: XR SHOULDER RT 2V or > COMPARISON: 10/19/2020 HISTORY: Pain FINDINGS: BONES:Contour deformity and sclerosis of the right posterior fifth and sixth ribs, favor chronic fractures new from the prior exam. High riding humeral head suggests rotator cuff injury. Mild osteoarthropathy of the glenohumeral joint. SOFT TISSUES:Negative. No visible soft tissue swelling. EFFUSION:None visible. OTHER: Negative. IMPRESSION: Contour deformity and sclerosis right posterior ribs, favor subacute or chronic fracture No definite acute fracture Electronically authenticated by: CM RAMIREZ Date: 2021-06-29 14:37[facility]02-15-2022 Evaluation note* Encounter Date Diagnosis Assessment Notes Treatment Notes Treatment Clinical Notes May, Arthritis of right glenohumeral joint (ICD-10 - M19.011) This is pain secondary to glenohumeral arthritis and rotator cuff tear. We discussed the importance of maintaining shoulder motion and demonstrated motion exercise in flexion, internal and external rotation. We discussed the use of non-steroidal anti-inflammatory medication. Discussed limiting strenuous use of the shoulder which will aggravate symptoms. Discussed that occasional intra-articular cortisone injection may be helpful. Discussed surgical treatment options including arthroscopy and arthroplasty replacement options. A marcaine / kenalog cortisone injection was performed into the subacromial space under sterile technique. Patient tolerated the injection well with no adverse reaction. May, Tear of right rotator cuff, unspecified tear extent, unspecified whether traumatic (ICD-10 - M75.101) May, Acute pain of right shoulder (ICD-10 - M25.511) [facility] Other 12-08-2021 Evaluation note* Encounter Date Diagnosis Assessment Notes Treatment Notes Treatment Clinical Notes Mar, Hyponatremia (ICD-10 - E87.1) Patient had hyponatremia with sodium down to 115 mmol/L with elevated urine Osm more than 300 suggestive of SIADH related to psychiatric medications. Sodium is up to 138 mmol/L on March 13, 2021. She has normal renal function. Furosemide was stopped because of weight loss and no edema. Continue sodium chloride tablets and water restriction 1.2 L daily. Monitor renal panel every 4 to 6 months or as indicated. Mar, Hypertension (ICD-10 - I10) Blood pressure has markedly improved after increasing amlodipine to 10 mg daily. She used to be on furosemide that was stopped as patient has weight loss with no edema. She still on water restriction. Mar, Hydronephrosis (ICD-10 - N13.30) Patient was incidentally found to have left hydronephrosis possibly insignificant as she has normal renal function. She has normal renal function. She follow-up with urology as outpatient. Mar, Anemia (ICD-10 - D64.9) Patient has anemia of unclear reason. She has weight loss and possible multivitamins and iron deficiency. We will recheck CBC, iron stores, B12 and folic acid with next blood work. Mar, Weight loss (ICD-10 - R63.4) She has unexplained weight loss currently down to 95 kg. She denies any diarrhea. Patient stated that she has an appointment with tobacco grower to check her thyroid. She follow-up with her family doctor as well. [facility] Other Evaluation noteNo InformationNort castaclip Other Evaluation noteNo assessment information available [facility] Work Phone: Evaluation note* Diagnosis Lingual facial buccal dyskinesia- Primary Orofacial dyskinesia Dyskinesia, tardive Subacute 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 Dyskinesia, orofacial Excessive physiologic tremor Essential and other specified forms of tremor documented in this encounter [facility] general Narrative - Reported* Type Description Date Medical History hypothyroidism Medical History anxiety and depression 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 Surgical History tubal revision 1984 Surgical History HIP FRACTURE 02/2020 Surgical History COLONSCOPY 2020 Surgical History RECTAL PROLAPSE 12/2020 Hospitalization History SEE ABOVE Hospitalization History RECTAL PROLAPSE 12/2020 [facility] Other History general Narrative - Reported* Type Description Date Medical History hypothyroidism Medical History anxiety and depression 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 Surgical History tubal revision 1984 Surgical History HIP FRACTURE 02/2020 Surgical History COLONSCOPY 2020 Surgical History RECTAL PROLAPSE 12/2020 Surgical History right reverse total shoulder 20 22 Hospitalization History SEE ABOVE Hospitalization History RECTAL PROLAPSE 12/2020 [facility] Other Summary Purpose Family History No Family History Records FoundUnknown Family Member Name Dates Details Family history of myocardial infarction: Father(V17.3, Z82.49) Status:Active Family history of cerebrovas cular accident (CVA): Mother(V17.1, Z82.3) Status:Active Relationship Condition Age at Onset Recorded Date/T jeferson Not Specified Cerebrovascular disease Unknown Chronic obstructive pulmonary disease Unk nown Hypertension Unknown father Coronary artery disease Unknown Lymphoma Unknown brother Heart disease Unknown sister Malignant neoplasm Unknown Advance Directives No Advanced Directives Records Found Advance Directive Response Recorded Date/ Time Advance Directives No May 8:49am Advance Directive Response Recorded Date/ Time Advance Directives No May 7:49am Chief Complaint and Reason for Visit Chief Complaint Shoulder pain Shoulder pain Shoulder pain Shoulder pain Shoulder pain Z96.611 M75.101 Additional Source Comments INFORMATION SOURCE (unrecogn ized section and content) DATE CREATED AUTHOR 01/14/2020 [facility] DATE CREATED AUTHOR AUTHOR'S ORGANIZ ATION 02/23/2021 [facility] DATE CREATED AUTHOR AUTHOR'S ORGANIZ ATION 04/12/2021 [facility] DATE CREATED AUTHOR AUTHOR'S ORGANIZ ATION 09/26/2021 [facility] DATE CREATED AUTHOR AUTHOR'S ORGANIZ ATION 06/06/2022 [facility] DATE CREATED AUTHOR AUTHOR'S ORGANIZ ATION 08/09/2022 [facility] DATE CREATED AUTHOR AUTHOR'S ORGANIZ ATION 01/16/2023 [facility] DATE CREATED AUTHOR AUTHOR'S ORGANIZ ATION 03/09/2023 [facility] REASON FOR VISIT (unrecogniz ed section and content) Reason Comments Insurance Authorization Reason Comments Follow Up Care Teams (unrecognized sec tion and content) Team Status: Inactive Member Role Status Dates Alexey Polo , Primary Care Provider Active Stevenson Corbin MD Attending Provider Active Team Status: Inactive Member Role Status Dates Stevenson Corbin MD Attending Provider Active Alexey Polo DO Primary Care Provider Active Team Status: Active Member Role Status Dates Alexey Polo , DO Primary Care Provider Active Software Test Technician Relationship Specialty Start Date End Date Esteban Garza [address] [place] [address] PCP - General Family Practice 07/21/18 Software Test Technician Relationship Specialty Start Date End Date Esteban Garza [address] [place] [address] PCP - General Family Medicine 07/21/18 Source Comments (unrecognize d section and content) In the event this informatio n is protected by the Federal Confidentiality of Alcohol and Drug Abuse Patient Records regulations: The Federal rules restrict any use of the information to criminally investigate or prosecute any alcohol or drug abuse patient.[facility] HospitalIn the event this information is protected by the Federal Confidentiality of Alcohol and Drug Abuse Patient Records regulations: The Federal rules restrict any use of the information to criminally investigate or prosecute any alcohol or drug abuse patient.[facility] Goals (unrecognized section and content) Goals may be documented in a n alternate section FOR RECORDS PERTAINING TO PATIENTS WHO ARE OR HAVE BEEN ENROLLED IN A CHEMICAL DEPENDENCY/SUBSTANCEABUSE PROGRAM, SOME INFORMATION MAY BE OMITTED. This clinical summary was aggregated from multiple sources. Caution should be exercised in using it in the provision of clinical care. This summary normalizes information from multiple sources, and as a consequence, information in this document may materially change the coding, format and clinical context of patient data. In addition, data may be omitted in some cases. CLINICAL DECISIONS SHOULD BE BASED ON THE PRIMARY CLINICAL RECORDS. [facility]. provides no warranty or guarantee of the accuracy or completeness of information in this document.
== END 2023-04-03 19:06 | disposition home or self-care (01) ==
PROVIDERS: Emergency Provider Emergency Medicine; PCP Family Medicine
DX: M25.552 Pain in left hip (principal); Z79.899 Other long term (current) drug therapy; Z79.890 Hormone replacement therapy
CPT/HCPCS: 73502; 96374; 96375; 99284

== ENCOUNTER 2023-05-11 05:02 | Observation (INO) | payer MEDICARE, MEDICAID, SELFPAY ==
[2023-05-11] VITALS (33 sets, daily range): BP systolic 112–152; BP diastolic 62–83; PULSE 67–79; RESP 15–30; TEMP 36.1–37.3; O2SAT 90–95; BMI 16.8
--- NOTE | 2023-05-11 05:05 | ECG_ITS ---
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
--- NOTE | 2023-05-11 05:05 | XR_ITS ---
The [address] [address] Patient Name: PATTY ROSE MRN: [id number] date: 1955 Sex: F Assigned Patient Location: ED.MAIN Current Patient Location: ED.MAIN Accession/Order Number: [id number] Exam Date: 05/11/2023 05:20 Report Date: 05/11/2023 05:46 At the request of: RE ROSE Procedure: XR chest 1V EXAM: XR chest 1V HISTORY: Chest pain. COMPARISON: Chest radiograph dated 04/19/2022. TECHNIQUE: AP erect portable chest radiograph performed. FINDINGS: The trachea is unremarkable. Stable mild enlargement of the cardiac silhouette. Stable mild atheromatous calcification at the aortic arch. Is a moderately large hiatal hernia. There is no consolidation, infiltrate, pleural effusion or pulmonary vascular congestion. There is no pneumothorax. The bony structures are osteopenic. Stable old healed fracture deformities along the posterior lateral aspect of the right fifth and sixth ribs. Reverse total right shoulder arthroplasty. There is loosening of the humeral implant with superior displacement, lucency adjacent to the and a fractured screw. XR/XR chest 1V IMPRESSION: There is no acute cardiopulmonary process. There is a moderately large hiatal hernia. Reverse total right shoulder arthroplasty. There is loosening of the humeral implant with superior displacement, lucency adjacent to the and a fractured screw. Electronically authenticated by: RUDDY KWAN Date: 05/11/2023 05:46
[2023-05-11 05:13] LABS: Basophils Absolute Auto 0.1 10^3/uL (0.0-0.1); Basophils Percent Auto 1.1 % (0.2-2.0); Eosinophils Absolute Auto 0.3 10^3/uL (0.0-0.7); Eosinophils Percent Auto 5.1 % (0.9-7.0); Immature Granulocytes Abs Auto 0.01 10^3/uL (0.00-0.03); Immature Granulocytes Pct Auto 0.2 % (0.0-0.5); Lymphocytes Absolute Auto 1.4 10^3/uL (1.2-3.8); Lymphocytes Percent Auto 25.3 % (20.5-60.0); Mean Corpuscular HGB Conc 27.6 g/dL (29.9-35.2); Mean Corpuscular Hemoglobin 16.9 pg (26.7-34.0); Mean Corpuscular Volume 61.2 fL (81.0-99.0); Mean Platelet Volume 8.4 fL (9.5-13.5); Monocytes Absolute Auto 0.7 10^3/uL (0.3-0.8); Monocytes Percent Auto 12.9 % (1.7-12.0); Neutrophils Absolute Auto 3.1 10^3/uL (1.4-6.5); Neutrophils Percent Auto 55.4 % (43.0-75.0); Platelet Count 474 10^3/uL (150-450); Red Blood Count 3.79 10^6/uL (4.20-5.40); Red Cell Distribution Width 19.2 % (11.0-15.0); White Blood Count 5.7 10^3/uL (4.0-11.0)
--- NOTE | 2023-05-11 05:14 | ED_ITS ---
HPI - Chest Pain General Chief Complaint: Chest Pain Stated Complaint: CHEST PAIN Time Seen by Provider: 05/11/23 05:05 Source: patient and EMR Mode of arrival: ambulance History of Present Illness HPI narrative: 67-year-old female to the emergency department chief complaint chest pain. Patient reports that sometime around 3 AM she developed pressure-like chest pain that radiated through to her back. No other associated symptoms. She denies any shortness of breath or dizziness. She denies any numbness, weakness, tingling. She has not had chest pain like this before. Reports remote history of stress test, no other Ischemic cardiac evaluations recently. 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 She denies any cardiovascular disease. Patient reports that she had a minor fall last week, denies any chest trauma Or extremity pain. Related Data Home Medications Medication Instructions Recorded Confirmed amlodipine 10 mg tablet 10 mg PO Q24H 04/03/23 05/11/23 atorvastatin 40 mg tablet 40 mg PO Q24H 04/03/23 05/11/23 buspirone 10 mg tablet 10 mg PO Q12H 04/03/23 05/11/23 calcium carbonate 600 mg-vitamin 1 tab PO BID 04/03/23 05/11/23 D3 10 mcg (400 unit) tablet (Calcium with Vitamin D) clonazepam 0.5 mg tablet 0.5 mg PO Q8H 04/03/23 05/11/23 cyclobenzaprine 10 mg tablet 10 mg PO Q8H 04/03/23 05/11/23 deutetrabenazine 12 mg tablet 12 mg PO Q12H 04/03/23 05/11/23 ([place]) dextromethorphan-guaifenesin 10 10 ml PO Q6H 04/03/23 05/11/23 mg-100 mg/5 mL oral syrup fluticasone propionate 50 1 spray intranasal Q24H 04/03/23 05/11/23 mcg/actuation nasal spray,suspension gabapentin 300 mg capsule 300 mg PO Q12H 04/03/23 05/11/23 gabapentin 600 mg tablet 600 mg PO Q24H 04/03/23 05/11/23 levothyroxine 75 mcg tablet 75 mcg PO Q24H 04/03/23 05/11/23 loperamide 2 mg capsule 2 mg PO Q6H PRN loose stool 04/03/23 05/11/23 (Anti-Diarrheal (loperamide)) pantoprazole 40 mg tablet,delayed 40 mg PO DAILY 04/03/23 05/11/23 release (Protonix) polyethylene glycol 3350 17 17 g PO DAILY 04/03/23 05/11/23 gram/dose oral powder (Miralax) primidone 50 mg tablet 250 mg PO Q24H 04/03/23 05/11/23 sucralfate 1 gram tablet 1 g PO Q6H 04/03/23 05/11/23 trazodone 100 mg tablet 100 mg PO Q24H 04/03/23 05/11/23 Allergies Allergy/AdvReac Type Severity Reaction Status Date / Time erythromycin base AdvReac Mild Verified 05/11/23 05:09 Review of Systems ROS Status of ROS 10 or more systems reviewed and unremark able except as noted in history and below [facility] Social History Smoking status: Former smoker Exam Narrative Exam Narrative: VITALS: I have reviewed the triage vital signs. GENERAL: Elderly female in no distress NEURO: Alert and oriented. Moves all extremities. Face is symmetric and expressive. Tremor. EYES: PERRL. No scleral icterus or conjunctival injection. No discharge. HENT: Normocephalic, atraumatic. Hearing is grossly intact. Nares grossly patent and without discharge. Mucous membranes moist. NECK: No JVD. Patient moves neck without restriction. CARDIO: Rhythm regular. Normal rate. No murmur, rub, or gallop. Pulses equal bilaterally in the upper and lower extremity. No lower extremity edema. PULM: Lungs clear to auscultation in all dunn. No wheezes, rales, or rhonchi. No conversational dyspnea. No splinting, stridor, or accessory muscle use. GI/: Abdomen is soft and non-tender. Normoactive bowel sounds. EXTREMITIES: Symmetric muscle bulk. No joint swelling. No clubbing, cyanosis, or deformity. SKIN: Warm and dry. Normal turgor. No rash or lesions appreciated. PSYCH: Mood, affect, and interaction is appropriate to the setting. Constitutional Vital Signs, click to edit/add: Last Vital Signs Temp 99.1 F 05/11/23 05:05 Pulse 78 05/11/23 05:50 Resp 22 01/27/24 05:50 BP 120/62 05/11/23 05:45 Pulse Ox 93 L 05/11/23 05:50 O2 Del Method Room Air 05/11/23 05:05 Course Vital Signs Vital signs: Vital Signs Blood Pressure 134/74 05/11/23 05:03 Temperature 99.1 F 05/11/23 05:05 Pulse Rate 78 05/11/23 05:50 Respiratory Rate 22 05/11/23 05:50 Blood Pressure 120/62 05/11/23 05:45 Pulse Oximetry 93 L 05/11/23 05:50 Oxygen Delivery Method Room Air 05/11/23 05:05 MDM - Chest Pain MDM Narrative Medical decision making narrative: 67-year-old female to the emergency department with chief complaint of chest pain. Vital stable, patient is afebrile. Cardiac workup was initiated. She is given morphine for pain and nitroglycerin did not help her symptoms. Code status was confirmed with her facility and they did fax over a signed DNR comfort care. This was confirmed with the patient. She is requesting diagnostic workup at this time. CBC with an abnormal hemoglobin, this was repeated and is in fact 6.0. Type and screen was ordered. Patient provides verbal and written consent for transfusion of two units of packed red blood cells. Chemistry and troponin are otherwise normal. Chest x-rays without acute findings. She does have some abnormality about her right shoulder replacement. Patient denies having any pain or functional abnormality of her right shoulder. This is likely chronic in nature and given her DNR comfort care status to be followed up as an outpatient with orthopedic surgeon at [facility]. Patient will be admitted for blood transfusion and And control of symptoms. Case discussed with Dr. Beaver the on-call hospitalist who agrees to admit the patient to her service. Medical Records Data Attestation: I reviewed the patient's medical records. Medical records narrative: Hemoglobin in April 2022 was 11.4. Lab Data Attestation: I reviewed the patient's lab results. Labs: Lab Results 05/11/23 05/11/23 Range/Units 05:00 05:26 WBC 5.7 5.2 (4.0-11.0) 10^3/uL RBC 3.79 L 3.57 L (4.20-5.40) 10^6/uL Hgb 6.4 L* 6.0 L* (12.0-16.0) g/dL Hct 23.2 L* 21.6 L* (36.0-48.0) % MCV 61.2 L 60.5 L (81.0-99.0) fL MCH 16.9 L 16.8 L (26.7-34.0) pg MCHC 27.6 L 27.8 L (29.9-35.2) g/dL RDW 19.2 H 18.8 H (11.0-15.0) % Plt Count 474 H 429 (150-450) 10^3/uL MPV 8.4 L 7.9 L (9.5-13.5) fL Neut % (Auto) 55.4 57.1 (43.0-75.0) % Lymph % (Auto) 25.3 24.3 (20.5-60.0) % [place] % (Auto) 12.9 H 12.2 H (1.7-12.0) % Eos % (Auto) 5.1 5.2 (0.9-7.0) % Baso % (Auto) 1.1 0.8 (0.2-2.0) % Neut # (Auto) 3.1 3.0 (1.4-6.5) 10^3/uL Lymph # (Auto) 1.4 1.3 (1.2-3.8) 10^3/uL [place] # (Auto) 0.7 0.6 (0.3-0.8) 10^3/uL Eos # (Auto) 0.3 0.3 (0.0-0.7) 10^3/uL Baso # (Auto) 0.1 0.0 (0.0-0.1) 10^3/uL Abs Immat Gran (auto) 0.01 0.02 (0.00-0.03) 10^3/uL Imm/Tot Granulo (auto) 0.2 0.4 (0.0-0.5) % PT 9.9 (9.0-11.6) sec INR 0.93 APTT <20.0 L (22.3-36.2) sec Sodium 134 L (136-145) mmol/L Potassium 4.0 (3.5-5.1) mmol/L Chloride 100 (98-107) mmol/L Carbon Dioxide 27.2 (21.0-32.0) mmol/L Anion Gap 10.8 BUN 8.0 (7.0-18.0) mg/dL Creatinine 0.51 L (0.55-1.02) mg/dL Est GFR ( Amer) >60 (>=60) Est GFR (Non-Af Amer) >60 (>=60) BUN/Creatinine Ratio 15.7 Glucose 94 (74-106) mg/dL Calcium 8.6 (8.5-10.1) mg/dL Total Bilirubin 0.1 L (0.2-1.0) mg/dL AST 21 (15-37) U/L ALT 14 (14-59) U/L Alkaline Phosphatase 62 (46-116) U/L Troponin I High Sens 7.2 (4.0-51.3) pg/mL Total Protein 6.6 (6.4-8.2) g/dL Albumin 3.0 L (3.4-5.0) g/dL Globulin 3.6 g/dL Albumin/Globulin Ratio 0.8 Lipase 32.0 (16.0-77.0) U/L Imaging Data Chest x-ray: Radiologist's impression: ITS Impressions Chest X-Ray 05/11/23 05:05 IMPRESSION: There is no acute cardiopulmonary process. There is a moderately large hiatal hernia. Reverse total right shoulder arthroplasty. There is loosening of the humeral implant with superior displacement, lucency adjacent to the and a fractured screw. Electronically authenticated by: RUDDY KWAN Date: 05/11/2023 05:46 ECG Data Attestation: I personally reviewed and interpreted this ECG as follows: (Baseline artifact interferes with interpretation. Appears to be a supraventricular rhythm. Heart rate is seventy-six. Normal intervals. QTc 426. No obvious STEMI.) Heart Score History: Slightly/Non-Suspicious ECG: NS Repolarization Age: >65 years Risk Factors: 1 or 2 Risk Factors Troponin: <Normal Limit Total Heart Score Recommendations & Risks:: 4 Discharge Plan Discharge Chief Complaint: Chest Pain Clinical Impression: Symptomatic anemia, Chest pain Patient Disposition: Admitted as Observation Time of Disposition Decision: 06:22 Condition: Fair Prescriptions / Home Meds: No Action amlodipine 10 mg tablet 10 mg PO Q24H atorvastatin 40 mg tablet 40 mg PO Q24H [place] 12 mg tablet 12 mg PO Q12H buspirone 10 mg tablet 10 mg PO Q12H clonazepam 0.5 mg tablet 0.5 mg PO Q8H cyclobenzaprine 10 mg tablet 10 mg PO Q8H fluticasone propionate 50 mcg/actuation spray,suspension 1 spray INTRANASAL Q24H gabapentin 300 mg capsule 300 mg PO Q12H gabapentin 600 mg tablet 600 mg PO Q24H levothyroxine 75 mcg tablet 75 mcg PO Q24H primidone 50 mg tablet 250 mg PO Q24H sucralfate 1 gram tablet 1 g PO Q6H trazodone 100 mg tablet 100 mg PO Q24H pantoprazole [Protonix] 40 mg tablet,delayed release (DR/EC) 40 mg PO DAILY polyethylene glycol 3350 [Miralax] 17 gram/dose powder 17 g PO DAILY loperamide [Anti-Diarrheal (loperamide)] 2 mg capsule 2 mg PO Q6H PRN (Reason: loose stool) dextromethorphan-guaifenesin 10-100 mg/5 mL syrup 10 ml PO Q6H calcium carbonate-vitamin D3 [Calcium with Vitamin D] 600 mg-10 mcg (400 unit) tablet 1 tab PO BID Referrals: JOHN POLO [Primary Care Provider] - 1 week
--- OUTSIDE RECORDS SUMMARY | 2023-05-11 05:15 | XMS_ITS | CCD ---
Author Name Unknown Address [address] [facility] [address] [place] [address] Organization [facility] Care Team Providers Care 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 Name Role Phone HERVE STARKEY Admitting Unavailable ESTEBAN GARZA Referring Unavailable ESTEBAN GARZA Primary Care Unavailable HERVE STARKEY Attending Unavailable Alexey Polo Unavailable Radha Bosch Unavailable Stevenson Corbin Unavailable Sena Eugene Unavailable MD Stevenson Corbin Attending Provider DO Alexey Polo Primary Care Provider [phone] Esteban Garza Primary Care Provider [phone] Esteban Garza Primary Care Provider CHRIST, DR ALEXEY Garcia Primary Care Unavailable LENA PALMER Attending Unavailable ZARI ., LENA Admitting Unavailable ASHLEY, DR CM Napier Consulting Unavailable SOFI DISLA Consulting Unavailable ZARI Gore, LENA Consulting Unavailable CHRIST, DR ALEXEY Garcia Primary Care Unavailable SPENCER ., DR RODRIGUEZ Attending Unavailable SPENCER ., DR RODRIGUEZ Admitting Unavailable SPENCER ., DR RODRIGUEZ Consulting Unavailable Santiago Helms Consulting [...] Unavailable MARKER ., DR VELASQUEZ Admitting Unavailable [place], DR CM Napier Consulting Unavailable FURLONG, DR ALEXEY Garcia Primary Care Unavailable MARKER ., DR VELASQUEZ Consulting Unavailable ZARI ., LENA Consulting Unavailable ZARI ., LENA Admitting Unavailable ZARI ., LENA Consulting Unavailable ZARI ., LENA Attending Unavailable FURLOSAMIRA, DR ALEXEY Garcia Primary Care Unavailable SIMON ANDRADE Consulting Unavailable FURLONG, DR ALEXEY Garcia Primary Care Unavailable NIGHAT, SOFI Attending Unavailable NIGHAT, SOFI Admitting Unavailable SOFI DISLA Consulting Unavailable JEFE SAEED Consulting Unavailable DO Alexey Polo Primary Care Provider [phone] MD Stevenson Corbin Attending Provider [phone] Olexa, Stevenson Admitting Unavailable Olexa, Stevenson Attending Unavailable Furlong, Alexey Primary Care Unavailable Olexa, Stevenson Admitting Unavailable Olexa, Stevenson Attending Unavailable Furlong, Alexey Primary Care Unavailable Olexa, Stevenson Admitting Unavailable Olexa, Stevenson Attending [facility]available [facility] Unavailable Olexa, Stevenson Admitting Unavailable Olexa, Stevenson Attending [facility]available [facility] Unavailable Olexa, Stevenson Admitting Unavailable Olexa, Stevenson Attending [facility]available [facility] Primary Care Unavailable Olexa, Stevenson Admitting Unavailable Olexa, Stevenson Attending Unavailable Furlong, Alexey Primary Care Unavailable Olexa, Stevenson Admitting Unavailable Olexa, Stevenson Attending Unavailable Furlong, Alexey Primary Care Unavailable Olexa, Stevenson Admitting Unavailable Olexa, Stevenson Attending [facility]available [facility] Unavailable Olexa, Stevenson Admitting Unavailable Olexa, Stevenson Attending Unavailable Furlong, Alexey Primary Care Unavailable TAI HINOJOSA Attending Unavailable ESTEBAN GARZA A Primary Care Unavailable TAI HINOJOSA Attending Unavailable TAI HINOJOSA Referring Unavailable ESTEBAN GARZA Primary Care Unavailable HERVE STARKEY Referring Unavailable TELLY PLAZA Attending Unavailable HERVE STARKEY Attending Unavailable Alexey Polo DO Primary Care Provider Allergies Allergy Classification Reported Allergen(s) Allergy Type Date of Onset Reaction(s) Facility (4 sources) Azithromycin Drug Allergy 0 Unknow [facility] (3 sources) Erythromycin; Translations: [erythromycin] Drug Allergy 7 Nausea And Vomiting [facility] (5 sources) erythromycin base; Translations: [Erythromycin Base] Allergy to substance 1 Unknown Reaction [facility] (1 source) Azithromycin Drug Allergy 2 [facility] (1 source) Clarithromycin Drug Allergy 1 Nausea And Vomiting [facility] Medications Current Medications Medication Drug Class(es) Dates Sig (Normalized) Sig (Original) acetaminophen 500 mg oral tablet (16 sources) Start: 10-09-2021 take 2 tablets by mouth three times daily Acetaminophen (Tylenol Extra Strength) 500 mg Tablet Active 1000 MG PO Three times daily October 08, 2021 11:00pm take 1 tablet by courtney th every eight hours as needed acetaminophen (TYLENOL EXTRA STRENGTH) 5 00 mg tablet Take 1 tablet (500 mg total) by mouth every 8 (eight) hours as needed. 0 Active take 1 tablet by courtney th every four hours as needed Acetaminophen 325 MG 1 tablet as needed Orally every 4 hrs Active take 2 tablets by mo ut every eight hours Tylenol Extra Strength 500 [...] hrs Active amLODIPine 5 mg oral tablet (16 sources) Dihydropyridine Calcium Channel Michael Start: 09-14-19 take 10 mg by mouth once daily Amlodipine Active 10 MG PO Daily September 12, 2021 11:00pm Start: 07-27-2020 take 1 tablet by courtney th every twenty-four hours amLODIPine Besylate 10 MG 1 tablet Orally Once a day Jul, Active take 2 tablets by mo uth in the morning amLODIPine (NORVASC) 5 mg tablet Take 2 tablets (10 mg total) by mouth in the morning. 0 Active amLODIPine (NORV ASC) 5 mg tablet Take by mouth once daily. 0 Active Comment on above: Take by mouth once d aily. atorvastatin 40 mg oral tablet (16 sources) HMG-CoA Reductase Inhibitor Start: take 40 [...] mg / cholecalciferol 200 unt oral tablet (4 sources) Vitamin D Start: 09-13-2021 take 2 tablets by mouth once daily Calcium Carbonate-Vitamin D3 (Calcium + D) 600 mg-5 mcg (200 unit) Tablet Active 2 TAB PO Daily September 12, 2021 11:00pm calcium carbonat e-vitamin D3 (CALCIUM 600 WITH VITAMIN D3) 600 mg(1,500mg) - 400 unit tablet,chewable Chew 2 tablets and swallow daily. 0 Active cephalexin 500 mg oral capsule (3 sources) [...] (20 sources) Benzodiazepine Start: 12-08-2020 take 1 tablet by mouth three times daily clonazePAM (KlonoPIN) 1 mg tablet clonazepam 1 mg tablet take 1 tablet by mouth three times a day 0 12/08/2020 Active Start: 07-05-2020 End: 09-13-2021 take 1 mg [...] tablet by courtney th three times daily for 90 days. [including bedtime] Take 1 mg by mouth t wice daily as needed. cyclobenzaprine hydrochloride 10 mg oral tablet (1 source) Muscle Relaxant Start: 023 take 1 tablet by mouth three times daily as needed for muscle spasms cyclobenzaprine (FLEXERIL) 10 mg tablet Take 1 tablet (10 mg total) by mouth 3 (three) times a day as needed for muscle spasms. 0 12/23/2022 Active deutetrabenazine 12 mg oral tablet (9 sources) Start: 022 take 2 tablets by mouth in the morning, then take 2 tablets by mouth at bedtime, then take 2 tablets by mouth twice daily deutetrabenazine 12 mg tablet Take 2 tablets by mouth in the morning and 2 tablets before bedtime. 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 0 02/26/2022 Active Start: 02-02-2022 End: 05-03-2022 take 2 tablets by mouth twice daily [...] with food Orally Once a day Active dextromethorphan hydrobromide 2 mg/ml / guaiFENesin 20 mg/ml oral solution (1 source) Uncompetitive S-jvznjo-I-aspartate Receptor Antagonist, Sigma-1 Agonist take 10 mL by mouth every six hours as needed for cough dextromethorphan-guaiFENesin (ROBITUSSIN-DM) 10-100 mg/5 mL liquid Take 10 mL by mouth every 6 (six) hours as needed for cough. Give 10 milliliter by mouth every 6 hours as needed for cough 0 Active ferrous sulfate 325 mg oral tablet (17 sources) Sta rt: 2 take 325 mg by mouth every week [...] 325 mg by mouth daily with breakfast. fluticasone propionate 0.05 mg/actuat metered dose nasal spray (15 sources) Corticosteroid Start: 03-19-2022 fluticasone propionate (FLONASE) 50 mcg/actuation nasal spray Start: 09-21-2021 Fluticasone Pr opionate 50 MCG/ACT Nasal Suspension As directed. Quantity: [...] 1 Puff as ins tructed twice daily. gabapentin 300 mg oral capsule (20 sources) Anti-epileptic Agent Start: 09-21-2020 take 300 mg by mouth twice daily [...] 12, 2021 11:00pm take 3 capsules by out every eight hours Ibuprofen 200 MG 3 capsule with food or milk as needed Orally Three times a day Active Ibuprofen 200 mg cap Take by mouth every 6 hours as needed. 0 Active take 3 tablets by mo [facility] once daily as needed Ibuprofen 200 MG Oral Tablet TAKE 3 TABL ET Daily PRN Quantity: 0 Refills: 0 Ordered: 25-Sep-2021 DO Active Comment on above: Take by mouth every 6 hours as needed. levothyroxine sodium 0.075 mg oral tablet (18 sources) l-Thyroxine Start: 0 take 75 ug by mouth once daily Levothyroxine Active 75 MCG PO Daily June 27, 2020 11:00pm [facility]-four hours Levothyroxine Sodium 75 MCG [...] breakfast. loperamide hydrochloride 2 mg oral capsule (16 sources) Opioid Agonist Start: 09-13-2021 Loperamide (Imodium A-D) 2 mg Capsule Active 1 - 2 MG PO Q6H September 12, 2021 11:00pm take 1 tablet by courtney th every six hours as needed for diarrhea loperamide (IMODIUM A-D) 2 mg tablet Hood e 1 tablet (2 mg total) by mouth every 6 (six) hours as needed for diarrhea. Give one tablet by mouth every 6 hours as needed for loose stool 0 Active take 1 tablet by mouth every six [...] 11:00pm take 1 tablet by courtney th four times daily methocarbamol (ROBAXIN) 750 mg tablet Ta ke 750 mg by mouth four times daily. 0 Active Comment on above: Take 750 mg by mouth four times daily. ondansetron 4 mg oral tablet (9 sources) Serotonin-3 Receptor Antagonist Start: 2 take 1 tablet by mouth every four hours Ondansetron Hcl (Zofran) 4 mg Tablet Active 4 MG PO Every 4 hours October 08, 2021 11:00pm take 1 tablet by courtney every eight hours as needed for nausea and vomiting ondansetron (ZOFRAN) 4 mg tablet Take 1 tablet (4 mg total) by mouth every 8 (eight) hours as needed for nausea or vomiting. 0 Active Comment on above: Take by mouth every 8 hours as needed for nausea/vomiting. pantoprazole 40 mg delayed release oral tablet (18 sources) Proton Pump Inhibitor Start: 03-16-20 21 take 40 mg by mouth twice daily Pantoprazole Active 40 MG PO Twice daily June 27, 2020 11:00pm take 1 tablet by mouth once jose manuel y pantoprazole DR (PROTONIX) 40 mg tablet Take 40 mg by mouth once daily. 0 Active Comment on above: Take 40 mg by mouth twice daily. Take 40 mg by mouth once daily. polyethylene glycol 3350 61974 mg powder for oral solution (7 sources) Osmotic Laxative Start: 09-13-2021 Polyethylene Glycol 3350 (Miralax) 17 gram/dose Powder Active 17 GM PO Daily September 12, 2021 11:00pm Comment on above: Take by mouth once d aily. Dissolve dose in 4 - 8 ounces of liquid and take as directed. primidone 250 mg oral tablet (17 sources) Anti-epileptic Agent Start: 06-28-2020 take 250 mg by mouth twice daily Primidone Active 250 MG PO Twice daily June 27, 2020 11:00pm take 250 mg by mouth once daily PRIMIDONE ORAL Take 250 mg by mouth Daily at 0630. seizures 0 Active Comment on above: Take 1 tablet by courtney th twice daily. sodium chloride 1000 mg oral tablet (16 sources) Start: 10-09-2021 take 1000 mg by mouth once daily Sodium Chloride Active 1000 MG PO Daily October 08, 2021 11:00pm Start: 12-26-2020 take 1 tablet by courtney th once daily sodium chloride 1 gram tablet Take 1 tablet (1 g total) by mouth daily. 30 tablet 0 12/26/2020 Active take 1 tablet by courtney th three times daily sodium chloride 1 g tab Take 1 g by mouth three times daily. 0 Active Sodium Chloride 1 GM as directed Orally Active Comment on above: Take 1 g by mouth th ree times daily. sucralfate 1000 mg oral tablet (9 sources) Aluminum Complex Start: 09-13-2021 sucralfate (CARAFATE) 1 gram tablet take 1 tablet by mouth every six hours Sucralfate 1 GM 1 tablet on an empty stomach Orally FOUR TIMES A DAY Active Comment on above: Take 1 g by mouth fo ur times daily. traZODone hydrochloride 150 mg oral tablet (19 sources) Serotonin Reuptake Inhibitor Start: take 150 [...] every 4 hrs for 5 days KALEE: [id number] Oct, Not-Taking alendronic acid 70 mg oral tablet (20 sources) Bisphosphonate Start: 05-07-2018 End: 09-13-2021 take [...] End: 07-05-2020 Buspirone Discontinued 15 MG PO BID@,June 27, 2020 11:00pm July 05, 2020 9:25am 1.5 tabs in AM, 1.5 tabs in afternoon, 1 tab in evening Start: 10-17-2018 take 1 tablet by courtney th three times daily busPIRone (BUSPAR) 5 mg [...] tablet (15 sources) Serotonin Reuptake Inhibitor Start: End: 2 take 1 tablet by mouth [...] Take 20 mg by mouth once daily. furosemide 20 mg oral tablet (3 sources) Loop Diuretic Start: 07-05-2020 End: 09-13-2021 take 20 mg by mouth once daily Furosemide Discontinued 20 MG PO Daily at 0800 30 30 July 04, 2020 11:00pm September 13, 2021 11:01am Magnesium (5 sources) Start: 06-28-2020 End: 09-13-2021 take 250 mg [...] mouth . menthol 0.04 mg/mg topical gel (8 sources) Start: 09-13-2021 End: 10-18-2021 Menthol (Biofreeze [...] HMG-CoA Reductase Inhibitor Start: 06-29-19 End: 09-14-19 take 40 mg by mouth once daily at bedtime Pravastatin Discontinued 40 MG PO Daily at bedtime June 27, 2020 11:00pm September 13, 2021 11:01am Comment on above: Take 40 mg by mouth once daily. Triamcinolone (8 sources) Corticosteroid Start: 05-30-19 Kenalog -40 mg May, 40 mg valbenazine 80 mg oral capsule (3 sources) Start: 06-29-19 End: 09-14-19 take 1 capsule by mouth once daily Valbenazine (Ingrezza) 80 mg Capsule Discontinued 80 MG PO Daily June 27, 2020 11:00pm September 13, 2021 11:01am Problems Active Problems Problem Classification Problem Date Documented Da te Episodic/Chronic Abdominal hernia (1 source) Hiatal hernia; Translations: [Diaphragmatic hernia without obstruction or gangrene] Onset: 3 03-12-2023 Episodic Administrative/social admission (1 source) Lives in a chcf; Translations: [Person living in residential institution] Episodic Anxiety disorders (20 sources) Anxiety state; Translations: [Anxiety state, unspecified] Onset: 2 07-05-2020 Chronic Chronic kidney disease (2 sources) Chronic kidney disease; Translations: [Chronic kidney disease, unspecified] Resolved: 3 09-14-2022 Chronic Disorders of lipid metabolism (20 sources) Hyperlipidemia; Translations: [Other and unspecified hyperlipidemia] Onset: 2 Resolved: 2 Chronic E Codes: Fall (4 sources) Unspecified fall, initial encounter; Translations: [Other fall on same level, initial encounter] Onset: 2 Episodic Esophageal disorders (2 sources) Gastro-esophageal reflux disease without esophagitis; Translations: [Gastroesophageal reflux disease] Onset: 3 10-19-2022 Chronic Essential hypertension (15 sources) Benign essential hypertension; Translations: [Benign essential hypertension] Onset: 1 Resolved: 2 Chronic Fluid and electrolyte disorders (11 sources) Hypo-osmolality and hyponatremia; Translations: [Acute hyponatremia] [...] 2 Chronic Other aftercare (1 source) Other long term care social worker (current) drug therapy; Translations: [OTH INTERMEDIATE CURRENT DRUG THERAPY] Onset: 3 Episodic Other bone disease and musculoskeletal deformities (2 sources) Idiopathic aseptic necrosis of left femur; Translations: [Idiopathic aseptic necrosis of left femur] Onset: 3 Chronic Other connective tissue disease (8 sources) History [...] Hydronephrosis; Translations: [Unspecified hydronephrosis] 06-30-2020 Episodic Other endocrine disorders (1 source) Syndrome of inappropriate vasopressin secretion; Translations: [Syndrome of inappropriate secretion of antidiuretic hormone] Onset: 3 09-14-2022 Chronic Other endocrine disorders (1 source) Hypoglycemia; Translations: [Hypoglycemia, unspecified] Onset: 3 09-14-2022 Chronic Other hereditary and degenerative nervous system conditions (2 sources) Orofacial dyskinesia; 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 Other hereditary and degenerative nervous system conditions (1 source) Restless legs syndrome; Translations: [RESTLESS LEGS SYNDROME] Onset: 3 Chronic Other hereditary and degenerative nervous system conditions (2 sources) Movement disorder; Translations: [Extrapyramidal and movement disorder, unspecified] Onset: 2 04-14-2023 Chronic Other hereditary and degenerative nervous system conditions (2 sources) Tardive dyskinesia; Translations: [Drug induced subacute dyskinesia] [...] sources) Hypothyroidism; Translations: [Unspecified acquired hypothyroidism] Onset: 2 03-23-2022 Chronic Unclassified (1 source) CONTACT W/AND (SUSP) [...] Problem Classification Problem Date Documented Date Episodic/Chronic Anal and rectal conditions (2 sources) Rectal prolapse; Translations: [Rectal prolapse] Onset: 02-04-2021 05-18-2022 Episodic Deficiency and other anemia (1 source) Anemia, unspecified Onset: 03-22-2021 Resolved: 03-22-2021 Episodic Deficiency and other anemia (1 source) Anemia; Translations: [Anemia, unspecified] Onset: 03-23-2022 03-23-2022 Episodic Fracture of neck of femur (hip) (1 source) Closed fracture of neck of femur; Translations: [Fracture of unspecified part of neck of unspecified femur, initial encounter for closed fracture] Onset: 06-16-2020 02-03-2021 Episodic Nausea and vomiting (5 sources) Nausea; Translations: [Nausea with vomiting, unspecified] Onset: 02-23-2022 Episodic Other connective tissue disease (15 sources) Unspecified rotator cuff tear or rupture of right shoulder, not specified as traumatic; Translations: [Tear of right rotator cuff, unspecified tear extent, unspecified whether traumatic] Onset: 05-30-2021 Resolved: 12-04-2021 Episodic Other connective tissue disease (1 source) Swelling of lower limb; Translations: [Other specified soft tissue disorders] Onset: 12-22-2020 12-22-2020 Episodic Other connective tissue disease (1 source) Muscle weakness; Translations: [Muscle weakness (generalized)] Onset: 03-23-2022 03-23-2022 Episodic Other diseases of kidney and ureters (2 sources) Unspecified hydronephrosis Onset: 03-22-2021 Resolved: 12-06-2021 Episodic Other nervous system disorders (1 source) Multifactorial gait problem; Translations: [Other abnormalities of gait and mobility] Onset: 03-23-2022 03-23-2022 Episodic Other non-traumatic joint disorders (6 sources) Pain in right shoulder; Translations: [PAIN IN RIGHT SHOULDER] Onset: 05-30-2021 Resolved: 05-30-2021 Episodic Other non-traumatic joint disorders (1 source) Pain of left hip joint; Translations: [Pain in left hip] Onset: 06-16-2020 02-03-2021 Episodic Other nutritional; endocrine; and metabolic disorders (1 source) Abnormal weight loss Onset: 03-22-2021 Resolved: 03-22-2021 Episodic Pneumonia (except that caused by tuberculosis or sexually transmitted disease) (1 source) Pneumonia; Translations: [Pneumonia, unspecified organism] Resolved: 08-17-2022 08-17-2022 Episodic Residual codes; unclassified (1 source) Other [...] Test Name Value Interpretation Reference Range Facility Follow-Upon 04-04-2023 Follow-Up [id number] Melanie Espinoza 1955 F Date Provider Department Center 04/04/2023 293-TELLY PLAZA MP [facility]TH[facility] MPORTHO Family History Family history unknown: Yes Level of Service:15297 [place] OFFICE/OUTPATIENT ESTABLISHED LOW MDM 20 MIN () Reason for Visit and Comments: Pain [136] - L hip possible fracture, patient states she fell at [facility] last night Normal [facility] Office Visiton 03-04-2023 Follow-up visit [id number] Melanie Espinoza 1955 F Date Provider Department Center 03/04/2023 Shea-HERVE STARKEY MP ORTHO MPORTHO Family History Family history unknown: Yes Level of Service:84685 ND OFFICE/OUTPATIENT ESTABLISHED LOW MDM 20-29 MIN Reason for Visit and Comments: Pain [136] Normal [facility] CNOVon 01-08-2023 CNOV Office Visit ([facility]) MELANIE ESPINOZA ([id number]) 1955 F Date Time Provider Department 01/08/23 2:00 PM TAI HINOJOSA [facility] During your visit today, we recorded the following information about you: Pulse Blood pressure Weight Height 83/minute 150/72 44.5 kg 1.6 m Tai Hinojosa MD 01/08/2023 2:41 PM Signed January 08, 2023 Tai Hinojosa MD [address] / [place] [address] Esteban Garza MD ([facility]) [address] [place] [address] Melanie Espinoza : 1955 Interval History: Melanie [...] no CP (more content not included)... Normal [facility] CNOVon 07-03-2022 CNOV Office Visit ([facility]) MELANIE ESPINOZA ([id number]) 1955 F Date Time Provider Department 07/03/22 12:00 PM TAI HINOJOSA [facility] During your visit today, we recorded the following information about you: Pulse Blood pressure Weight 88/minute 135/82 49.9 kg Tai Hinojosa MD 07/03/2022 12:35 PM Signed July 03, 2022 Tai Hinojosa MD [address] / [address] [address] Esteban Garza MD ([facility]) [address] [place] [address] Melanie Espinoza : 1955 Interval History: Melanie [...] lifting he (more content not included)... Normal [facility] XR shoulder RT min 2V*on XR shoulder RT min 2V* [facility] Main [place] [address] [place] [address] XRay Report Signed Patient: Melanie Espinoza MR#: [id number] 6 : 1955 Acct:[id number] Age/Sex: 67 / F ADM Date: 06/18/22 Loc: [facility] Room: Type: [facility] Attending Dr: Stevenson Corbin MD Copies to: [...] process. Impression dictated by: Tai Taylor Jr., DSofíaOSofía06/18/2022 4:21 PM Dictation Location: [place] [address] Transcribed By: [facility] 06/18/22 162 Dictated By: Tai Taylor Jr, DO 06/18/22 1620 Signed By: 06/18/22 1621 [facility] XR SHOULDER RT 2V or >on [...] SIMON ANDRADE Date: 2022-06-04 10:57 Normal [facility] CBC AUTO DIFFon 04-19-2022 BASO # 0.0 103/ul Normal 0.0-0.1 [facility] Comment on above: Performed By: #### C BC #### [facility] [address] [place] [address] Dr. Miranda Claudio Basophils/100 WBC (Bld) 0.2 % Normal 0.2-2.0 [facility] Comment on above: Performed By: #### C BC #### [facility] [address] [place] [address] Dr. Miranda Claudio EO # 0.0 103/ul Normal 0.0-0.7 [facility] Comment on above: Performed By: #### C BC #### [facility] [address] [address] [address] Miranda Claudio Eosinophils/100 WBC (Bld) 0.4 % Critically low 0.9-7.0 [facility] Comment on above: Performed By: #### C BC #### [facility] [address] [address] [address] Miranda Claudio Erythrocyte distribution width (RBC) [Ratio] 13.7 % Normal 11.0-15.0 [facility] Comment on above: Performed By: #### C BC #### [facility] [address] [place] [address] Dr. Miranda Claudio Hematocrit (Bld) [Volume fraction] 33.6 % Critically low 36.0-48.0 [facility] Comment on above: Performed By: #### C BC #### [facility] [address] [place] [address] Dr. Miranda Claudio Hemoglobin (Bld) [Mass/Vol] 11.4 g/dL Critically low 12.0-16.0 [facility] Comment on above: Performed By: #### C BC #### [facility] [address] [place] [address] Dr. Miranda Claudio IG # 0.02 10e3/ul Normal 0.00-0.03 [facility] Comment on above: Performed By: #### C BC #### [facility] [address] [place] [address] Dr. Miranda Claudio IG % 0.4 % Normal 0.0-0.5 [facility] Comment on above: Performed By: #### C BC #### [facility] [address] [place] [address] Dr. Miranda Claudio LYMPH # 0.9 103/ul Critically low 1.2-3.8 [facility] Comment on above: Performed By: #### C BC #### [facility] [address] [place] [address] Dr. Miranda Claudio Lymphocytes/100 WBC (Bld) 18.4 % Critically low 20.5-60.0 [facility] Comment on above: Performed By: #### C BC #### [facility] [address] [place] [address] Dr. Miranda Claudio MANUAL DIFF REQ NO Normal [facility] Comment on above: Performed By: #### C BC #### [facility] [address] [place] [address] Dr. Miranda Claudio MCH (RBC) [Entitic mass] 26.5 pg Critically low 26.7-34.0 [facility] Comment on above: Performed By: #### C BC #### [facility] [address] [place] [address] Dr. Miranda Claudio MCHC (RBC) [Mass/Vol] 33.9 g/dL Normal 29.9-35.2 [facility] Comment on above: Performed By: #### C BC #### [facility] [address] [place] [address] Dr. Miranda Claudio MCV (RBC) [Entitic vol] 78.0 fL Critically low 81.0-99.0 [facility] Comment on above: Performed By: #### C BC #### [facility] [address] [place] [address] Dr. Miranda Claudio MONO # 0.6 103/ul Normal 0.3-0.8 [facility] Comment on above: Performed By: #### C BC #### [facility] [address] [place] [address] Dr. Miranda Claudio Monocytes/100 WBC (Bld) 11.7 % Normal 1.7-12.0 [facility] Comment on above: Performed By: #### C BC #### [facility] [address] [place] [address] Dr. Miranda Claudio NEUT # 3.3 103/ul Normal 1.4-6.5 [facility] Comment on above: Performed By: #### C BC #### [facility] [address] [place] [address] Dr. Miranda Claudio Neutrophils/100 WBC (Bld) 68.9 % Normal 43.0-75.0 [facility] Comment on above: Performed By: #### C BC #### [facility] [address] [place] [address] Dr. Miranda Claudio Platelet mean volume (Bld) [Entitic vol] 8.1 fL Critically low 9.5-13.5 [facility] Comment on above: Performed By: #### C BC #### [facility] [address] [place] [address] Dr. Miranda Claudio PLT 394 103/ul Normal 150-450 [facility] Comment on above: Performed By: #### C BC #### [facility] [address] [place] [address] Dr. Miranda Claudio RBC 4.31 106/ul Normal 4.20-5.40 [facility] Comment on above: Performed By: #### C BC #### [facility] [address] [place] [address] Dr. Miranda Claudio WBC 4.8 103/ul Normal 4.0-11.0 [facility] Comment on above: Performed By: #### C BC #### [facility] [address] [place] [address] Dr. Miranda Claudio PROF 14(COMP METB)on 023 Albumin [Mass/Vol] 2.7 g/dL Critically low 3.4-5.0 [facility] Comment on above: Performed By: #### C MP #### [facility] [address] [place] [address] Dr. Miranda Claudio Albumin/Globulin [Mass ratio] 0.8 {ratio} Normal [facility] Comment on above: Performed By: #### C MP #### [facility] [address] [place] [address] Dr. Miranda Claudio ALP [Catalytic activity/Vol] 64 U/L Normal 46-116 [facility] Comment on above: Performed By: #### C MP #### [facility] [address] [place] [address] Dr. Miranda Claudio ALT [Catalytic activity/Vol] 33 U/L Normal 14-59 [facility] Comment on above: Performed By: #### C MP #### [facility] [address] [place] [address] Dr. Miranda Claudio Anion gap [Moles/Vol] 12.1 mmol/L Normal [facility] Comment on above: Performed By: #### C MP #### [facility] [address] [place] [address] Dr. Miranda Claudio AST [Catalytic activity/Vol] 64 U/L Critically high 15-37 [facility] Comment on above: Performed By: #### C MP #### [facility] [address] [address] [address] Miranda Claudio Bilirubin [Mass/Vol] 0.2 mg/dL Normal 0.2-1.0 [facility] Comment on above: Performed By: #### C MP #### [facility] [address] [address] [address] Miranda Claudio Calcium [Mass/Vol] 7.9 mg/dL Critically low 8.5-10.1 [facility] Comment on above: Performed By: #### C MP #### [facility] [address] [address] [address] Miranda Claudio Chloride [Moles/Vol] 98 mmol/L Normal 98-107 [facility] Comment on above: Performed By: #### C MP #### [facility] [address] [address] [address] Miranda Claudio CO2 [Moles/Vol] 26.7 mmol/L Normal 21.0-32.0 [facility] Comment on above: Performed By: #### C MP #### [facility] [address] [address] [address] Miranda Claudio Creatinine [Mass/Vol] 0.44 mg/dL Critically low 0.55-1.02 [facility] Comment on above: Performed By: #### C MP #### [facility] [address] [address] [address] Miranda Claudio EGFR-AF SCOTTISH >60 Normal >=60 [facility] Comment on above: Performed By: #### C MP #### [facility] [address] [address] [address] Miranda Claudio EGFR-NON AF SCOTTISH >60 Normal >=60 [facility] Comment on above: Performed By: #### C MP #### [facility] [address] [address] [address] Miranda Claudio Globulin (S) [Mass/Vol] 3.3 g/dL Normal [facility] Comment on above: Performed By: #### C MP #### [facility] [address] [address] [address] Miranda Claudio Glucose [Mass/Vol] 78 mg/dL Normal 74-106 [facility] Comment on above: Performed By: #### C MP #### [facility] [address] [address] [address] Miranda Claudio Potassium [Moles/Vol] 2.8 mmol/L Critically low 3.5-5.1 [facility] Comment on above: Performed By: #### C MP #### [facility] [address] [address] [address] Miranda Claudio Protein [Mass/Vol] 6.0 g/dL Critically low 6.4-8.2 [facility] Comment on above: Performed By: #### C MP #### [facility] [address] [address] [address] Miranda Claudio Sodium [Moles/Vol] 134 mmol/L Critically low 136-145 [facility] Comment on above: Performed By: #### C MP #### [facility] [address] [address] [address] Miranda Claudio Urea nitrogen [Mass/Vol] 4.0 mg/dL Critically low 7.0-18.0 [facility] Comment on above: Performed By: #### C MP #### [facility] [address] [address] [address] Miranda Claudio Urea nitrogen/Creatinine [Mass ratio] 9.1 mg/mg Normal [facility] Comment on above: Performed By: #### C MP #### [facility] [address] [address] [address] Miranda Claudio XR CHEST 1 Von [...] CM RAMIREZ Date: 2022-04-19 07:08 Normal [facility] CARDIAC EMMA ADMITon 022 CK [Catalytic activity/Vol] 412 U/L Critically high 26-192 [facility] Comment on above: Performed By: #### C JESS, CMP ####[facility] [address] [address]DrSofía Claudio CK.MB [Mass/Vol] 19.37 ng/mL Critically high <=3.60 Th [facility] Comment on above: Performed By: #### C JESS CMP ####[facility] [address] [address]DrSofía Claudio HSTROP 5.9 pg/mL Normal 4.0-51.3 [facility] Comment on above: Result Comment: CUT- OFF POINTS HAVE BEEN ESTABLISHED BASED ON THE FOURTH UNIVERSAL DEFINITIONS OF MYOCARDIAL INFARCTION. THE UPPER REFERENCE LIMIT (URL) OF TROPONIN, DEFINED THE 99TH PERCENTILE OF cTnI DISTRIBUTION IN A REFERENCE POPULATION, HAS BEEN CONFIRMED THE DECISION THRESHOLD FOR MD DIAGNOSIS. Performed By: #### C JESS CMP ####[facility] [address] [address]Dr. Miranda Claudio MARKEL 82 ng/mL Normal 9-82 [facility] Comment on above: Performed By: #### C JESS CMP ####[facility] [address] [address]DrSofía Claudio CBC AUTO DIFFon 03-23-2022 BASO # 0.1 103/ul Normal 0.0-0.1 [facility] Comment on above: Performed By: #### C BC ####[facility] [address] [address]DrSofía Claudio Basophils/100 WBC (Bld) 0.5 % Normal 0.2-2.0 [facility] Comment on above: Performed By: #### C BC ####[facility] [address] [address]DrSofía Claudio EO # 0.5 103/ul Normal 0.0-0.7 [facility] Comment on above: Performed By: #### C BC ####[facility] [address] [address]Dr. Miranda Claudio Eosinophils/100 WBC (Bld) 4.1 % Normal 0.9-7.0 [facility] Comment on above: Performed By: #### C BC ####[facility] [address] [place], [place] [address]Dr. Miranda Claudio Erythrocyte distribution width (RBC) [Ratio] 13.9 % Normal 11.0-15.0 [facility] Comment on above: Performed By: #### C BC ####[facility] [address] [place], [place] [address]Dr. Miranda Claudio Hematocrit (Bld) [Volume fraction] 35.1 % Critically low 36.0-48.0 [facility] Comment on above: Performed By: #### C BC ####[facility] [address] [place], [place] [address]Dr. Miranda Claudio Hemoglobin (Bld) [Mass/Vol] 11.7 g/dL Critically low 12.0-16.0 [facility] Comment on above: Performed By: #### C BC ####[facility] [address] [place], [place] [address]Dr. Miranda Claudio IG # 0.05 10e3/ul Critically high 0.00-0.03 [facility] Comment on above: Performed By: #### C BC ####[facility] [address] [place], [place] [address]Dr. Miranda González IG % 0.4 % Normal 0.0-0.5 [facility] Comment on above: Performed By: #### C BC ####[facility] [address] [place], [place] [address]DrSofía Miranda González LYMPH # 1.5 103/ul Normal 1.2-3.8 [facility] Comment on above: Performed By: #### C BC ####[facility] [address] [place], [place] [address]Dr. Miranda Claudio Lymphocytes/100 WBC (Bld) 12.7 % Critically low 20.5-60.0 [facility] Comment on above: Performed By: #### C BC ####[facility] [address] [place] [address]Dr. Miranda Claudio MANUAL DIFF REQ NO Normal [facility] Comment on above: Performed By: #### C BC ####[facility] [address] [place] [address]Dr. Miranda Claudio MCH (RBC) [Entitic mass] 26.1 pg Critically low 26.7-34.0 [facility] Comment on above: Performed By: #### C BC ####[facility] [address] [place], [place] [address]Dr. Miranda Claudio MCHC (RBC) [Mass/Vol] 33.3 g/dL Normal 29.9-35.2 [facility] Comment on above: Performed By: #### C BC ####[facility] [address] [place], [place] [address]Dr. Miranda Claudio MCV (RBC) [Entitic vol] 78.3 fL Critically low 81.0-99.0 [facility] Comment on above: Performed By: #### C BC ####[facility] [address] [place], [place] [address]Dr. Miranda Claudio MONO # 1.2 103/ul Critically high 0.3-0.8 [facility] Comment on above: Performed By: #### C BC ####[facility] [address] [place], [place] [address]Dr. Miranda Claudio Monocytes/100 WBC (Bld) 10.5 % Normal 1.7-12.0 [facility] Comment on above: Performed By: #### C BC ####[facility] [address] [place], [place] [address]DrSofía Claudio NEUT # 8.3 103/ul Critically high 1.4-6.5 [facility] Comment on above: Performed By: #### C BC ####[facility] [address] [place], [place] [address]Dr. Miranda Claudio Neutrophils/100 WBC (Bld) 71.8 % Normal 43.0-75.0 [facility] Comment on above: Performed By: #### C BC ####[facility] [address] [address]Dr. Miranda Claudio Platelet mean volume (Bld) [Entitic vol] 8.5 fL Critically low 9.5-13.5 [facility] Comment on above: Performed By: #### C BC ####[facility] [address] [address]Dr. Miranda Claudio PLT 349 103/ul Normal 150-450 [facility] Comment on above: Performed By: #### C BC ####[facility] [address] [address]Dr. Miranda Claudio RBC 4.48 106/ul Normal 4.20-5.40 [facility] Comment on above: Performed By: #### C BC ####[facility] [address] [address]Dr. Miranda Claudio WBC 11.6 103/ul Critically high 4.0-11.0 [facility] Comment on above: Performed By: #### C BC ####[facility] [address] [address]Dr. Miranda Claudio Covid-19 PCR (CVDTB)on SARS-CoV-2 (COVID-19) RNA LARY+probe Ql (Unsp spec) Not detected Normal NOT DETECTED [facility] Comment on above: Result Comment: When [...] for this test is supported by the Con[employer] of Health and Human Service's declaration that [...] longer be used). Performed By: #### C VDTB #### [facility] [address] [place] [address] Dr. Miranda Claudio ER URINE PROFILEon 2 Bilirubin Ql (U) Negative Normal NEGATIVE [facility] Comment on above: Performed By: #### E RUR #### [facility] [address] [place] [address] Dr. Miranda Claudio Clarity (U) CLEAR Normal CLEAR [facility] Comment on above: Performed By: #### E RUR #### [facility] [address] [place] [address] Dr. Miranda Claudio Color (U) LT. YELLOW Normal YELLOW [facility] Comment on above: Performed By: #### E RUR #### [facility] [address] [place] [address] Dr. Miranda Claudio ERURAD A micrscopic examination will be performed if indicated. Normal [facility] Comment on above: Performed By: #### E RUR #### [facility] [address] [place] [address] Dr. Miranda Claudio Glucose Ql (U) Negative Normal NEGATIVE [facility] Comment on above: Performed By: #### E RUR #### [facility] [address] [place] [address] Dr. Miranda Claudio Hemoglobin Ql (U) Negative Normal NEGATIVE [facility] Comment on above: Performed By: #### E RUR #### [facility] [address] [place] [address] Dr. Miranda Claudio Ketones Ql (U) Negative Normal NEGATIVE [facility] Comment on above: Performed By: #### E RUR #### [facility] [address] [place] [address] Dr. Miranda Claudio LEUKOCYTES Negative Normal NEGATIVE [facility] Comment on above: Performed By: #### E RUR #### [facility] [address] [place] [address] Dr. Miranda Claudio Nitrite Ql (U) Negative Normal NEGATIVE [facility] Comment on above: Performed By: #### E RUR #### [facility] [address] [place] [address] Dr. Miranda Claudio pH (U) 6.5 [pH] Normal 5-9 [facility] Comment on above: Performed By: #### E RUR #### [facility] [address] [place] [address] Dr. Miranda Claudio SPEC GRAVITY <=1.005 Abnormal 1.005-<=1.025 [facility] Comment on above: Performed By: #### E RUR #### [facility] [address] [place] [address] Dr. Miranda Claudio UA PROTEIN Negative Normal NEGATIVE/ TRACE [facility] Comment on above: Performed By: #### E RUR #### [facility] [address] [place] [address] Dr. Miranda Claudio UR MICRO IND NOT INDICATED Normal [facility] Comment on above: Performed By: #### E RUR #### [facility] [address] [place] [address] Dr. Miranda Claudio Urobilinogen Qn (U) 0.2 {Muriel'U}/dL Normal 0.2 - 1. 0 [facility] Comment on above: Performed By: #### E RUR #### [facility] [address] [place] [address] Dr. Miranda Claudio LACTATE/LACTIC ACIDon 2021 Lactate [Moles/Vol] 0.9 mmol/L Normal 0.4-1.[address] [facility] Comment on above: Performed By: #### L ACT #### [facility] [address] [place] [address] Dr. Miranda Claudio PROF 14(COMP METB)on 022 Albumin [Mass/Vol] 3.5 g/dL Normal 3.4-5.0 [facility] Comment on above: Performed By: #### C MADM, CMP #### [facility] [address] [address] [address] Miranda Claudio Albumin/Globulin [Mass ratio] 1.0 {ratio} Normal [facility] Comment on above: Performed By: #### C MADM, CMP #### [facility] [address] [address] [address] Miranda Claudio ALP [Catalytic activity/Vol] 73 U/L Normal 46-116 [facility] Comment on above: Performed By: #### C MADM, CMP #### [facility] [address] [address] [address] Miranda Claudio ALT [Catalytic activity/Vol] 16 U/L Normal 14-59 [facility] Comment on above: Performed By: #### C JASWINDERM, CMP #### [facility] [address] [address] [address] Miranda Claudio Anion gap [Moles/Vol] 14.4 mmol/L Normal [facility] Comment on above: Performed By: #### C JASWINDERM, CMP #### [facility] [address] [address] [address] Miranda Claudio AST [Catalytic activity/Vol] 26 U/L Normal 15-37 [facility] Comment on above: Performed By: #### C JASWINDERM, CMP #### [facility] [address] [address] [address] Miranda Claudio Bilirubin [Mass/Vol] 0.2 mg/dL Normal 0.2-1.0 [facility] Comment on above: Performed By: #### C JASWINDERM, CMP #### [facility] [address] [address] [address] Miranda Claudio Calcium [Mass/Vol] 8.3 mg/dL Critically low 8.5-10.1 Th [facility] Comment on above: Performed By: #### C MADM, CMP #### [facility] [address] [address] [address] Miranda Claudio Chloride [Moles/Vol] 93 mmol/L Critically low 98-107 [facility] Comment on above: Performed By: #### C JASWINDERM, CMP #### [facility] [address] [address] [address] Miranda Claudio CO2 [Moles/Vol] 23.5 mmol/L Normal 21.0-32.0 [facility] Comment on above: Performed By: #### C MADM, CMP #### [facility] [address] [address] [address] Miranda Claudio Creatinine [Mass/Vol] 0.54 mg/dL Critically low 0.55-1.02 [facility] Comment on above: Performed By: #### C MADM, CMP #### [facility] [address] [address] [address] Miranda Claudio EGFR-AF SCOTTISH >60 Normal >=60 [facility] Comment on above: Performed By: #### C MADM, CMP #### [facility] [address] [address] [address] Miranda Claudio EGFR-NON AF SCOTTISH >60 Normal >=60 [facility] Comment on above: Performed By: #### C MADM, CMP #### [facility] [address] [address] [address] Miranda Claudio Globulin (S) [Mass/Vol] 3.6 g/dL Normal [facility] Comment on above: Performed By: #### C MADM, CMP #### [facility] [address] [address] [address] Miranda Claudio Glucose [Mass/Vol] 91 mg/dL Normal 74-106 [facility] Comment on above: Performed By: #### C MADM, CMP #### [facility] [address] [address] [address] Miranda Claudio Potassium [Moles/Vol] 3.9 mmol/L Normal 3.5-5.1 [facility] Comment on above: Performed By: #### C MADM, CMP #### [facility] [address] [address] [address] Miranda Claudio Protein [Mass/Vol] 7.1 g/dL Normal 6.4-8.2 [facility] Comment on above: Performed By: #### C JASWINDERM, CMP #### [facility] [address] [place], [place] [address] Dr. Miranda Claudio Sodium [Moles/Vol] 127 mmol/L Critically low 136-145 Th e [facility] Comment on above: Performed By: #### C JASWINDERM, CMP #### [facility] [address] [place], [place] [address] Dr. Miranda Claudio Urea nitrogen [Mass/Vol] 8.0 mg/dL Normal 7.0-18.0 [facility] Comment on above: Performed By: #### C JASWINDERM, CMP #### [facility] [address] [place], [place] [address] Dr. Miranda Claudio Urea nitrogen/Creatinine [Mass ratio] 14.8 mg/mg Normal [facility] Comment on above: Performed By: #### C JESS, CMP #### [facility] [address] [place], [place] [address] Dr. Miranda Claudio TYPE AND SCREENon 03-23-2022 TYPE AND SCREEN Negative Normal [facility] Comment on above: Performed By: #### T NS ####[facility] [address] [place], [place] [address]Dr. Miranda Claudio NM HEPATOBILIARY SCAN W EFon [...] by: MESHA CARRASCO Date: 2022-02-23 11:03 Normal [facility] XR shoulder RT min 2V*on XR shoulder RT min 2V* [facility] Main [place] [address] [place] [address] XRay Report Signed Patient: Melanie Espinoza MR#: [id number] 6 : 1955 Acct:[id number] Age/Sex: 66 / F ADM Date: 01/29/22 Loc: [facility] Room: Type: [facility] Attending Dr: Stevenson Corbin MD Copies to: [...] Ligia Carrasquillo M.D.01/29/2022 2:27 PM Dictation Location: [place] [address] Transcribed By: [facility] 01/29/221426 Dictated By: Ligia Carrasquillo MD 01/29/221424 Signed By: 01/29/22 142 [facility] CBC AUTO DIFFon 01-27-2022 BASO # 0.1 103/ul Normal 0.0-0.1 [facility] Comment on above: Performed By: #### C BC #### [facility] [address] [address] [address] Miranda Claudio Basophils/100 WBC (Bld) 0.7 % Normal 0.2-2.0 [facility] Comment on above: Performed By: #### C BC #### [facility] [address] [address] [address] Miranda Claudio EO # 0.4 103/ul Normal 0.0-0.7 [facility] Comment on above: Performed By: #### C BC #### [facility] 05 [place] [address] Dr. [place] Claudio Eosinophils/100 WBC (Bld) 4.0 % Normal 0.9-7.0 [facility] Comment on above: Performed By: #### C BC #### [facility] [address] [place] [address] Dr. [place] Claudio Erythrocyte distribution width (RBC) [Ratio] 14.2 % Normal 11.0-15.0 [facility] Comment on above: Performed By: #### C BC #### [facility] [address] [place] [address] Dr. [place] Claudio Hematocrit (Bld) [Volume fraction] 39.9 % Normal 36.0-48.0 [facility] Comment on above: Performed By: #### C BC #### [facility] [address] [place] [address] Dr. [place] Claudio Hemoglobin (Bld) [Mass/Vol] 13.0 g/dL Normal 12.0-16.0 [facility] Comment on above: Performed By: #### C BC #### [facility] [address] [place] [address] Dr. [place] Claudio IG # 0.03 10e3/ul Normal 0.00-0.03 [facility] Comment on above: Performed By: #### C BC #### [facility] [address] [place] [address] Dr. [place] Claudio IG % 0.3 % Normal 0.0-0.5 [facility] Comment on above: Performed By: #### C BC #### [facility] [address] [place] [address] Dr. [place] Claudio LYMPH # 2.2 103/ul Normal 1.2-3.8 [facility] Comment on above: Performed By: #### C BC #### [facility] [address] [place] [address] Dr. [place] Claudio Lymphocytes/100 WBC (Bld) 23.6 % Normal 20.5-60.0 [facility] Comment on above: Performed By: #### C BC #### [facility] [address] [place] [address] Dr. [place] Claudio MANUAL DIFF REQ NO Normal [facility] Comment on above: Performed By: #### C BC #### [facility] [address] [place] [address] Dr. [place] Claudio MCH (RBC) [Entitic mass] 27.1 pg Normal 26.7-34.0 [facility] Comment on above: Performed By: #### C BC #### [facility] [address] [place] [address] Dr. [place] Claudio MCHC (RBC) [Mass/Vol] 32.6 g/dL Normal 29.9-35.2 [facility] Comment on above: Performed By: #### C BC #### [facility] [address] [place] [address] Dr. [place] Claudio MCV (RBC) [Entitic vol] 83.1 fL Normal 81.0-99.0 [facility] Comment on above: Performed By: #### C BC #### [facility] [address] [place] [address] Dr. [place] Claudio MONO # 0.8 103/ul Normal 0.3-0.8 [facility] Comment on above: Performed By: #### C BC #### [facility] [address] [place] [address] Dr. [place] Claudio Monocytes/100 WBC (Bld) 8.5 % Normal 1.7-12.0 [facility] Comment on above: Performed By: #### C BC #### [facility] [address] [place] [address] Dr. [place] Claudio NEUT # 5.9 103/ul Normal 1.4-6.5 [facility] Comment on above: Performed By: #### C BC #### [facility] [address] [place] [address] Dr. [place] Claudio Neutrophils/100 WBC (Bld) 62.9 % Normal 43.0-75.0 [facility] Comment on above: Performed By: #### C BC #### [facility] [address] [address] [address] [place] Claudio Platelet mean volume (Bld) [Entitic vol] 7.6 fL Critically low 9.5-13.5 [facility] Comment on above: Performed By: #### C BC #### [facility] [address] [address] [address] [place] Claudio PLT 405 103/ul Normal 150-450 [facility] Comment on above: Performed By: #### C BC #### [facility] [address] [address] [address] [place] Claudio RBC 4.80 106/ul Normal 4.20-5.40 [facility] Comment on above: Performed By: #### C BC #### [facility] [address] [address] [address] [place] Claudio WBC 9.4 103/ul Normal 4.0-11.0 [facility] Comment on above: Performed By: #### C BC #### [facility] [address] [address] [address] [place] Claudio ER URINE PROFILEon 2 Bilirubin Ql (U) Negative Normal NEGATIVE [facility] Comment on above: Performed By: #### U MICRO, ERUR ####[facility] [address] [address]DrSofía Claudio Clarity (U) CLEAR Normal CLEAR [facility] Comment on above: Performed By: #### U MICRO, ERUR ####[facility] [address] [address]DrSofía lCaudio Color (U) LT. YELLOW Normal YELLOW [facility] Comment on above: Performed By: #### U MICRO, ERUR ####[facility] [address] [address]DrSofía GARDUNOAHD A micrscopic examination will be performed if indicated. Normal [facility] Comment on above: Performed By: #### U MICRO, ERUR ####[facility] [address] [address]DrSofía Claudio Glucose Ql (U) Negative Normal NEGATIVE [facility] Comment on above: Performed By: #### U MICRO, ERUR ####[facility] [address] [address]Dr. [place] Claudio Hemoglobin Ql (U) TRACE-LYSED Abnormal NEGATIVE [facility] Comment on above: Performed By: #### U MICRO, ERUR ####[facility] [address] [address]Dr. [place] Claudio Ketones Ql (U) Negative Normal NEGATIVE [facility] Comment on above: Performed By: #### U MICRO, ERUR ####[facility] [address] [place], [place] [address]Dr. [place] Claudio LEUKOCYTES Negative Normal NEGATIVE [facility] Comment on above: Performed By: #### U MICRO, ERUR ####[facility] [address] [place], [place] [address]Dr. [place] Claudio Nitrite Ql (U) Negative Normal NEGATIVE [facility] Comment on above: Performed By: #### U MICRO, ERUR ####[facility] [address] [place], [place] [address]Dr. [place] Claudio pH (U) 7.0 [pH] Normal 5-9 [facility] Comment on above: Performed By: #### U MICRO, ERUR ####[facility] [address] [place], [place] [address]Dr. [place] Claudio SPEC GRAVITY <=1.005 Abnormal 1.005-<=1.025 [facility] Comment on above: Performed By: #### U MICRO, ERUR ####[facility] [address] [place], [place] [address]Dr. [place] Claudio UA PROTEIN Negative Normal NEGATIVE/ TRACE [facility] Comment on above: Performed By: #### U MICRO, ERUR ####[facility] [address] [place], [place] [address]Dr. [place] Claudio UR MICRO IND INDICATED Normal [facility] Comment on above: Performed By: #### U MICRO, ERUR ####[facility] [address] [place], [place] [address]Dr. [place] Claudio Urobilinogen Qn (U) 0.2 {Muriel'U}/dL Normal 0.2 - 1. 0 [facility] Comment on above: Performed By: #### U MICRO, ERUR ####[facility] [address] [address]Dr. [place] Claudio PROF 14(COMP METB)on 01-27- 022 Albumin [Mass/Vol] 3.5 g/dL Normal 3.4-5.0 [facility] Comment on above: Performed By: #### C MP #### [facility] [address] [address] [address] [place] Claudio Albumin/Globulin [Mass ratio] 1.0 {ratio} Normal [facility] Comment on above: Performed By: #### C MP #### [facility] [address] [place] [address] Dr. [place] Claudio ALP [Catalytic activity/Vol] 66 U/L Normal 46-116 [facility] Comment on above: Performed By: #### C MP #### [facility] [address] [address] [address] [place] Claudio ALT [Catalytic activity/Vol] 15 U/L Normal 14-59 [facility] Comment on above: Performed By: #### C MP #### [facility] [address] [address] [address] [place] Claudio Anion gap [Moles/Vol] 7.1 mmol/L Normal [facility] Comment on above: Performed By: #### C MP #### [facility] [address] [address] [address] [place] Claudio AST [Catalytic activity/Vol] 16 U/L Normal 15-37 [facility] Comment on above: Performed By: #### C MP #### [facility] [address] [address] [address] [place] Claudio Bilirubin [Mass/Vol] 0.1 mg/dL Critically low 0.2-1.0 [facility] Comment on above: Performed By: #### C MP #### [facility] [address] [address] [address] [place] Claudio Calcium [Mass/Vol] 9.1 mg/dL Normal 8.5-10.1 [facility] Comment on above: Performed By: #### C MP #### [facility] [address] [place] [address] Dr. [place] Claudio Chloride [Moles/Vol] 100 mmol/L Normal 98-107 [facility] Comment on above: Performed By: #### C MP #### [facility] [address] [address] [address] [place] Claudio CO2 [Moles/Vol] 30.7 mmol/L Normal 21.0-32.0 [facility] Comment on above: Performed By: #### C MP #### [facility] [address] [place] [address] Dr. [place] Claudio Creatinine [Mass/Vol] 0.64 mg/dL Normal 0.55-1.02 [facility] Comment on above: Performed By: #### C MP #### [facility] [address] [place] [address] Dr. [place] Claudio EGFR-AF SCOTTISH >60 Normal >=60 [facility] Comment on above: Performed By: #### C MP #### [facility] [address] [place] [address] Dr. [place] Claudio EGFR-NON AF SCOTTISH >60 Normal >=60 [facility] Comment on above: Performed By: #### C MP #### [facility] [address] [place] [address] Dr. [place] Claudio Globulin (S) [Mass/Vol] 3.6 g/dL Normal [facility] Comment on above: Performed By: #### C MP #### [facility] [address] [address] [address] [place] Claudio Glucose [Mass/Vol] 68 mg/dL Critically low 74-106 Th [facility] Comment on above: Performed By: #### C MP #### [facility] [address] [place] [address] Dr. [place] Claudio Potassium [Moles/Vol] 3.8 mmol/L Normal 3.5-5.1 [facility] Comment on above: Performed By: #### C MP #### [facility] [address] [address] [address] [place] Claudio Protein [Mass/Vol] 7.1 g/dL Normal 6.4-8.2 [facility] Comment on above: Performed By: #### C MP #### [facility] [address] [address] [address] [place] Claudio Sodium [Moles/Vol] 134 mmol/L Critically low 136-145 Th [facility] Comment on above: Performed By: #### C MP #### [facility] [address] [address] [address] [place] Claudio Urea nitrogen [Mass/Vol] 14.0 mg/dL Normal 7.0-18.0 [facility] Comment on above: Performed By: #### C MP #### [facility] [address] [address] [address] [place] Claudio Urea nitrogen/Creatinine [Mass ratio] 21.9 mg/mg Normal [facility] Comment on above: Performed By: #### C MP #### [facility] [address] [address] [address] [place] Claudio URINE MICROSCOPIC ONLYon BACTERIA NONE SEEN Normal NONE SEEN [facility] Comment on above: Performed By: #### U MICRO, ERUR ####[facility] [address] [address]DrSofía Claudio Bacteria identified Cx Nom (U) NOT INDICATED Normal [facility] Comment on above: Performed By: #### U MICRO, ERUR ####[facility] [address] [address]DrSofía Claudio CAST NONE SEEN Normal NONE SEEN [facility] Comment on above: Performed By: #### U MICRO, ERUR ####[facility] [address] [address]DrSofía Claudio Crystals LM Nom (Urine sed) NONE SEEN Normal NONE SEEN [facility] Comment on above: Performed By: #### U MICRO, ERUR ####[facility] [address] [place], [place] [address]Aw. [place] Claudio Epithelial cells LM Ql (Urine sed) NONE SEEN Normal NONE SEEN /RARE [facility] Comment on above: Performed By: #### U MICRO, ERUR ####[facility] [address] [place], [place] [address]Sa. [place] Claudio MUCOUS SMALL Abnormal NONE SEEN [facility] Comment on above: Performed By: #### U MICRO, ERUR ####[facility] [address] [place], [place] [address]Je. [place] Claudio RBC 0-2 Normal 0-2 [facility] Comment on above: Performed By: #### U MICRO, ERUR ####[facility] [address] [address]Dr. [place] Claudio WBC NONE SEEN Normal NONE SEEN [facility] Comment on above: Performed By: #### U MICRO, ERUR ####[facility] [address] [address]Dr. [place] Claudio XR CHEST 1 Von 01-27-2022 [...] by: CM ROBLES Date: 2022-01-27 20:30 Normal [facility] XR SHOULDER RT 2V or >on XR SHOULDER RT 2V or > IMAGES REVIEWED: XR SHOULDER RT 2V or > COMPARISON: 12/27/2021. CLINICAL INDICATION: Pain FINDINGS/IMPRESSION: 1. No evidence of acute osseous abnormality of the right shoulder. 2. 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 3. Old right rib fractures. 4. Osteopenia. Electronically authenticated by: SARAH MOMIN Date: 2022-01-27 20:42 Normal [facility] XR SCAPULA RTon 12-27-2021 XR SCAPULA RT [...] by: SANTIAGO HELMS Date: 2021-12-27 12:55 Normal [facility] XR shoulder RT min 2V*on XR shoulder RT min 2V* [facility] [address] [id number] XRay Report Signed Patient: Melanie Espinoza MR#: [id number] 6 : 1955 Acct:[id number] Age/Sex: 66 / F ADM Date: 12/04/21 Loc: [facility] Room: Type: [facility] Attending Dr: Stevenson Corbin MD Copies to: [...] Erick Carranza M.D.12/04/2021 2:33 PM Dictation Location: [place] [address] Transcribed By: [facility] 12/04/21 1433 Dictated By: Erick Carranza DO 12/04/21 1426 Signed By: 12/04/21 1433 Normal [facility] XR shoulder RT min 2V*on XR shoulder RT min 2V* [facility] Main [address] [address] XRay Report Signed Patient: Melanie Espinoza MR#: [id number] 6 : 1955 Acct:[id number] Age/Sex: 66 / F ADM Date: 10/26/21 Loc: [facility] Room: Type: [facility] Attending Dr: Stevenson Corbin MD Copies to: [...] Taylor Jr., D.O.10/26/2021 10:32 AM Dictation Location: [place] [address] Transcribed By: [facility] 10/26/21 1032 Dictated By: Tai Taylor Jr, DO 10/26/21 1031 Signed By: 10/26/21 1032 Normal [facility] XR shoulder RT min 2V*on XR shoulder RT min 2V* [facility] Main [place] [address] [place] [address] XRay Report Signed Patient: Melanie Espinoza MR#: [id number] 6 : 1955 Acct:[id number] Age/Sex: 66 / F ADM Date: 10/18/21 Loc: [place] Room: Type: [facility] Attending Dr: Stevenson Corbin MD Copies to: [...] Ligia Carrasquillo M.D.10/18/2021 11:42 AM Dictation Location: [place] [address] Transcribed By: [facility] 10/18/21 1142 Dictated By: Ligia Carrasquillo MD 10/18/21 1139 Signed By: 10/18/21 1142 Normal [facility] COVID-19 FRMCon 10-13-2021 SARS-CoV-2 (COVID-19) RNA LARY+probe Ql (Unsp spec) Negative Normal Negative [facility] Comment on above: Order Comment: Healt hcare Worker?: N Result Comment: Testing for SARS-CoV-2 by RT-PCR This test was developed and its performance characteristics determined by [employer] ([employer]) and validated at the [facility]. This test has not been FDA cleared [...] is terminated or revoked sooner. PERFORMED BY: [place] [address] PATHOLOGIST MEDICINAL CHEMIST TAYA CRESPO M.D. Performed By: #### C OVID 19 [facility] #### [address] COVID-19 Positive/NegativeOr dered By: Stevenson Corbin on 10-13-2021 SARS-CoV-2 (COVID-19) N gene LARY+probe Ql (Resp) Negative Negative [facility] Comment on above: Testing for SARS-CoV -2 by RT-PCR This test was developed and its performance characteristics determined by [employer] ([employer]) and validated at the [facility] This test has not been FDA cleared [...] a) No falls within the last year [facility] Heart-Pamela 250 DO Work Phone: Tobacco use status [facility] b) No [facility] Heart-[facility]amela 250 DO Work Phone: PHQ-2 VITALS [facility] 250 DO Work Phone: COVID-19 [facility] SARS-CoV-2 (COVID-19) RNA LARY+probe Ql (Unsp spec) Negative Normal Negative [facility] Comment on above: Order Comment: Healt hcare Worker?: N Result Comment: Testing for SARS-CoV-2 by RT-PCR This test was developed and its performance characteristics determined by [employer] ([employer]) and validated at the [facility]. This test has not been FDA cleared [...] is terminated or revoked sooner. PERFORMED BY: [place] [address] PATHOLOGIST MEDICINAL CHEMIST TAYA CRESPO M.D. Performed By: #### C OVID 19 [facility] #### [address] COVID-19 Positive/NegativeOr dered By: Stevenson Corbin on 09-18-2021 SARS-CoV-2 (COVID-19) N gene LARY+probe Ql (Resp) Negative Negative [facility] Comment on above: Testing for SARS-CoV -2 by RT-PCR This test was developed and its performance characteristics determined by [employer] ([employer]) and validated at the [facility] This test has not been FDA cleared [...] or revoked sooner. CT LSPINE WO CONon CT LSPINE WO CON EXAM: CT LSPINE [...] JEFE SAEED Date: 2021-08-22 02:25 Normal [facility] HIP LEFT 1 OR 2 VWS WITH PEL VISon 01-26-2021 HIP LEFT 1 OR 2 VWS WITH PELVIS [facility] [address] [place] [id number] Patient Name: MELANIE ESPINOZA : 1955 Sex: F Age: Race: White Pt. Location: Patient Status: D Ordered Date: 01/26/2021 1:55:00 PM Completed Date: 01/26/2021 02:00 PM Requesting Provider: HERVE STARKEY Attending Provider: HERVE STARKEY Report Copy To: Signs & Symptoms: S72.002A Fracture of unsp part of neck of left femur, init I10 History: [place] Comments: Evaluate Exam: HIP LEFT 1 OR [...] report. Electronically signed: Marisela Reveles. Transcribed by: [email or web address], User Resident: ORIANA REILLY Electronically Signed by: MARISELA REVELES @ 01/27/2021 12:26 PM I personally read this/these film(s) with this resident Normal [facility] Comment on above: Order Comment: Evalu ate HIP LEFT 1 OR 2 VWS WITH PEL VISon 09-15-2020 HIP LEFT 1 OR 2 VWS WITH PELVIS [facility] [address] [place] [phone] Patient Name: MELANIE ESPINOZA : 1955 Sex: F Age: Race: White Pt. Location: 84 Patient Status: O Ordered Date: 09/15/2020 12:40:00 [...] Electronically signed: Jose Armando Kwon. Transcribed by: [email or web address], User Resident: Electronically Signed by: JOSE [place]AND[place] KWON @ 09/15/2020 08:28 PM [place] [facility] Comment on above: Order Comment: evalu ate RAD - Ultrasound Reporton RAD - Ultrasound Report [id number] .[id number]:127 Normal [place] [facility] Ambulatory Clinical Summaryo n 08-30-2020 Ambulatory Clinical Summary {[id number]}CD:[id number] Normal [place] Patient Educationon 08-31-19 Patient Education Urology Hydronephrosis [...] Follow these instructions at home: ? Take azjd-xzv-lkpvemu and prescription medicines only as told by [...] 01/27/2008 Document Revised: 04/12/2018 Document Reviewed: 04/12/2018 [email or web address] Patient Education ? 2019 [employer]. Normal [facility] Urology Office/Clinic Noteon 08-30-2020 Urology Office/Clinic [...] Urnls Dip Stick Auto w/o Microscopy POC 53810 I have reviewed the previous health record information and history for this patient from Dr. Go Follow-up With When Contact Information Donavan Bailey MD, Justin Massey, URO Only if needed [facility] [address], [place] [address]- Additional Instructions: Patient Education Hydronephrosis I, Marion [...] 80 mg= 1 (more content not included)... [facility] Comment on above: Result Comment: Elec tronically Signed By: Donavan Bailey MD, Justin Massey\.br\Date and Time Signed: 08/30/20 13:04 EDT\.br\Electronically Co-Signed By: Marion Gibson MA\.br\Date and Time Co-Signed: 08/30/20 12:36 EDT Reminderson 08-22-2020 Reminders - From: Edilma Godoy To: [facility] - Clinical; Sent: 08/09/2020 11:42:24 EDT Show up: 08/21/2020 11:42:00 EDT Subject: renal US Reminder/Recall scheduled 08/19/20 at [facility]. patient has f/u scheduled 08/30 for results results scanned in today [facility] Ambulatory Clinical Summaryo n 08-09-2020 Ambulatory Clinical Summary {[id number]}CD:[id number] [facility] Formson 08-09-2020 Forms [id number] .[id number]:127 [facility] Patient Educationon 08-09-20 21 Patient Education Urology Hydronephrosis Hydronephrosis is [...] Follow these instructions at home: ? Take eeav-ajz-avkmyje and prescription medicines only as told by [...] 01/27/2008 Document Revised: 04/12/2018 Document Reviewed: 04/12/2018 [email or web address] Patient Education ? 2019 [employer]. Normal [facility] Urology Office/Clinic Noteon 08-09-2020 Urology Office/Clinic Note Chief Complaint New patient here for left sided hydronephrosis HPI Staff New patient Melanie is a 65 y.o. female referred by [facility] ER for mild to moderate left hydronephrosis. [...] Urnls Dip Stick Auto w/o Microscopy POC 74933 US Renal Follow-up With When Contact Information Donavan Bailey MD, Justin Massey, URO [facility] [address], [place] [address]- Additional Instructions: after renal u/s Patient Education Hydronephrosis INadiya personally scribed for Dr. Go on 08/09/2020 [...] (at bedtime) (more content not included)... Normal [facility] Comment on above: Result Comment: Elec tronically Signed By: Donavan Bailey MD, Justin Massey\.br\Date and Time Signed: 08/09/20 11:18 EDT\.br\Electronically Co-Signed By: Nadiya Freed MA\.br\Date and Time Co-Signed: 08/09/20 11:07 EDT RAD - CT Reporton 07-12-2020 RAD - CT Report [id number]. 00CD:127 [facility] Consultation Noteon 07-02-19 Consultation Note [id number] .00CD:127 [facility] HIP LEFT 1 OR 2 VWS WITH PEL VISon 06-16-2020 HIP LEFT 1 OR 2 VWS WITH PELVIS [facility] [address] [place] [id number] Patient Name: MELANIE ESPINOZA : 1955 [...] complication Electronically signed: Willow Stapleton. Transcribed by: [email or web address], User Resident: Electronically Signed by: WILLOW STAPLETON @ 06/17/2020 08:01 AM Normal [facility] Comment on above: Order Comment: Views (X-RAY, HIP): AP Hip, Frogleg Lateral Hip HIP LEFT 1 OR 2 VWS WITH PEL VISon 2020 HIP LEFT 1 OR 2 VWS WITH PELVIS [facility] [address] [place] [id number] Patient Name: MELANIE ESPINOZA : 1955 Sex: F Age: Race: White Pt. Location: Patient Status: O Ordered Date: 2020 1:25:00 PM Completed Date: 2020 01:30 PM Requesting Provider: HERVE STARKEY Attending Provider: HERVE STARKEY Report Copy To: Signs & Symptoms: M25.552 Pain in left hip I10 History: [place] Comments: Exam: HIP LEFT 1 OR 2 [...] impaction. Electronically signed: Deion Hernandez. Transcribed by: [email or web address], User Resident: Electronically Signed by: DEION HERNANDEZ @ 2020 04:11 PM Normal [facility] HIP LEFT 1 OR 2 VWS WITH PEL VISon 04-14-2020 HIP LEFT 1 OR 2 VWS WITH PELVIS [facility] [address] [place] [id number] Patient Name: MELANIE ESPINOZA : 1955 Sex: F Age: Race: White Pt. Location: 84 Patient Status: O Ordered Date: 04/14/2020 9:20:00 AM Completed Date: 04/14/2020 09:27 AM Requesting Provider: HERVE STARKEY Attending Provider: HERVE STARKEY Report Copy To: Signs & Symptoms: M25.552 Pain in left hip I10 History: [place] Comments: Evaluate Exam: HIP LEFT 1 OR [...] of left hip fracture. Electronically signed: Antonio Bernal. Transcribed by: [email or web address], User Resident: Electronically Signed by: ANTONIO BERNAL @ 04/14/2020 10:04 AM Normal [facility] Comment on above: Order Comment: Evalu ate Coding Summaryon 01-13-2020 Coding Summary CODING DATE: 01/13/2020 [facility] STATUS: Home PAYOR: Medicaid HMO ADMIT [...] Nikhil Zamudio Date Saved: 01/13/2020 06:25 pm [facility] Coding Summary CODING DATE: 01/13/2020 [facility] STATUS: Home PAYOR: Medicaid HMO ADMIT [...] Nikhil Zamudio Date Saved: 01/13/2020 06:24 pm [facility] Coding Summary CODING DATE: 01/13/2020 FINAL [facility] STATUS: Home PAYOR: Medicaid HMO [...] Nikhil Zamudio Date Saved: 01/13/2020 06:24 pm [facility] ED Clinical Summaryon 2019 ED Clinical Summary [facility] Emergency Department [address] [place] [id number] ED Clinical Summary PERSON INFORMATION Name: MELANIE ESPINOZA Age: 64 Years Sex: FEMALE : 1955 MRN: Acct#: Visit Reason: Hernia; ABD PAIN Arrival: 01/09/2020 15:42:54 Discharge: 01/09/2020 16:20:00 LOS: 000 00:38 Check In: 01/09/2020 15:42:54 Checkout:01/09/2020 16:20:00 Address: [place] [address] PCP: ESTEBAN GARZA PROVIDER INFORMATION Provider Role [...] Hernia Follow-Up: With: Address: When: Calvin Aguilar [address] [place] [address], [address] [place] [id number] Business (1) Within 2 to 4 days [...] hernia; Ventral hernia Patient Understands: Yes - Patient/family/caregi kimberly verbalizes understanding of instructions given Comment: [facility] ED Note - Physicianon 2019 ED Note [...] documented in chart. Surgical history: Esophagogastroduodeno scopy ([id number]) on 01/17/2018 at 62 Years., Reviewed as documented in chart. Family history: No family history items have been selected or recorded., Reviewed as documented in chart. Social history: Social & Psychosocial Habits Tobacco 04/15/2017 Smoking tobacco use: 5-9 cigarettes (between 1 Comment: Smokes 1/2 PDD - 04/15/2017 13:04 - Marlyn Espinoza [...] Impression and Plan Diagnosis Incarcerated ventral hernia ([id number] K43.6, Discharge, Medical) Ventral hernia ([id number] K43.9, Discharge, Medical) Plan Condition: Improved, Stable. [...] on: 01/12/2020 15:09 EDT] Wade Hassan MD [facility] ED Note-Nursingon 01-09-2020 ED Note-Nursing Pt presents to the E D with a hernia. Pt states increased pain in that area. [facility] ED Patient Education Noteon 01-09-2020 ED Patient [...] increase pressure on your hernia. ? Take zrgp-gpz-pynxzdz and prescription medicines only as told by [...] 03/18/2013 Document Revised: 05/14/2018 Document Reviewed: 10/21/2017 [email or web address] Patient Education ? 2019 [employer]. Normal [facility] ED Patient Summaryon 020 ED Patient Summary [facility] - Emergency Department [address] [place], [place] [id number] PATIENT DISCHARGE INSTRUCTIONS Patient Information Name: MELANIE ESPINOZA Age: 64 Years Date of : 1955 Reason For Visit: Hernia; ABD PAIN Arrival Time: 01/09/2020 15:42:54 Primary Care Physician: ESTEBAN GARZA Attending Physician: Wade Hassan MD Comment: Visit Diagnosis: Diagnoses This Visit Hernia ([id number]) Incarcerated ventral hernia (K43.6) Ventral hernia (K43.9) Prescription Information: If you have been given a prescription for narcotics, seek immediate medical attention if you have any difficulty breathing or any sudden status changes such as confusion and sleepiness. If you or anyone you know is experiencing suicidal thoughts, mental health, alcohol and/or drug addiction problems; contact the [facility] 05/11 Crisis Hotline -Text 8JUJF to 280648. If you received any narcotics, sedation, or [...] legal documents With: Address: When: Calvin Aguilar [address] [place] [address], [place] [address] Business (1) Within 2 to 4 days [...] and treatment you received today in the [facility] Emergency Department were for an urgent problem and are not intended as complete care. It is important for you to follow up with a doctor, nurse practitioner, or physician?s assistant golf coach for ongoing care. If your symptoms become [...] so we can reach you if necessary. [facility] Emergency Department has provided you with a complete list of medications post discharge. Please inform your lead carpenter/provider of your visit and for further instruction [...] increase pressure on your hernia. ? Take qgxk-otu-vjeuhwr and prescription medicines only as told by [...] 03/18/2013 Document Revised: 05/14/2018 Document Reviewed: 10/21/2017 [employer] Patient Education ? 2020 [employer] Inc. Viruses or Bacteria What?s got you sick? [...] for Disease Control and Prevention December 2013 [facility] Coding Summaryon 09-24-2019 Coding Summary CODING DATE: 09/24/2019 [facility] STATUS: Home PAYOR: Medicaid HMO ADMIT [...] Carine Ferraro Date Saved: 09/24/2019 03:29 pm [facility] .Thyroglobulin by SKYLAR LCon 0 09-23-2019 Thyroglobulin by SKYLAR LC 13.6 ng/mL 1.5-38.5 [facility] Comment on above: Result Comment: According [...] is 0.1 ng/mL Thyroglobulin measured by Fina R2G Immunometric Assay Performed At: [facility] [id number] Bebo Jeter PhD Ph:[phone] Performed By: #### 2 [id number], [id number], [id number], [id number], [id number] ####[facility] (DEFAULT)[address] [place] [address] Provider Orderson 09-23-2019 Provider Orders [id number] .00OTGTIFF Normal [facility] T3 Free LCon 09-23-2019 Triiodothyronine,Fr ee,Serum LC 2.0 pg/mL 2.0-4.4 [facility] Comment on above: Result Comment: Perf ormed At: [place] [place] [id number] [place], [place] [id number] Bebo Jeter PhD Ph:[phone] Performed By: #### 2 [id number], [id number], [id number], [id number], [id number], [id number] #### [facility] (DEFAULT) [address] [place] [address] Thyroglobulin Reflex Profile LCon 09-23-2019 Thyroglobulin Antibody LC <1.0 0.0-0.9 [facility] Comment on above: Result Comment: Thyr oglobulin Antibody measured by [employer] Performed At: [facility] [address] [place], [place] [id number] Bebo Jeter PhD Ph:[phone] Performed By: #### 2 [id number], [id number], [id number], [id number], [id number], [id number] ####[facility] (DEFAULT)[address] [place] [address] Thyroid Peroxidase (TPO) Ab LCon 09-23-2019 Thyroid Peroxidase (TPO) Ab LC <9 0-34 [facility] Comment on above: Result Comment: Perf ormed At: [facility] [address] [place], [place] [id number] Bebo Jeter PhD Ph:[phone] Performed By: #### 2 [id number], [id number], [id number], [id number], [id number], [id number] #### [facility] (DEFAULT) [address] [place] [address] Free T4on 09-22-2019 Free T4 [Mass/Vol] 0.90 ng/dL Normal 0.61-1.12 [facility] Comment on above: Result Comment: Spec imens that contain high levels of Biotin may cause false high results Performed By: #### 2 [id number], [id number], [id number], [id number], [id number], [id number] #### [facility] (DEFAULT) [address] [place] [address] TSHon 09-22-2019 TSH Qn 2.07 mcIU/mL Normal 0.45-5.33 [facility] Comment on above: Result Comment: Gene ral Population (males and non- females, aged 21-88) 0.45 - 5.33 Females, 1st Trimester 0.05 - 3.70 Females, 2nd Trimester 0.31 - 4.35 Females, 3rd Trimester 0.41 - 5.18 Performed By: #### 2 [id number], [id number], [id number], [id number], [id number], [id number] #### [facility] (DEFAULT) [address] [place] [address] Coding Summaryon 06-18-2019 Coding Summary CODING DATE: 06/18/2019 FINAL [facility] STATUS: Home PAYOR: Medicaid HMO [...] Carine Ferraro Date Saved: 06/18/2019 01:32 pm Normal [facility] US Thyroidon 06-17-2019 US Thyroid EXAM: US [...] Huntley MD 06/17/19 4:26 pm Technologist: KRISTINA [facility] Provider Orderson 06-16-2019 Provider Orders [id number] 05-29-2019 Coding Summary CODING DATE: 05/29/2019 [facility] STATUS: Home PAYOR: Medicaid HMO ADMIT [...] Deb Law Date Saved: 05/29/2019 12:32 pm [facility] Provider Orderson 05-28-2019 Provider Orders [id number] [id number] 2 Viewson 0 XR [...] MD 05/27/19 4:03 pm Technologist: Anatoliy SETH [facility] Vital Signs Date Time Vital Sign Value Performing Clinician Facility 04-14-2023 22:23-0500 Body mass index (BMI) [Ratio] 17.47 kg/m2 Alexey Pedersonlong DO [facility] 04-14-2023 22:23-0500 Body temperature 97.9 [degF] [facility]long [facility] 04-14-2023 22:23-0500 Body weight 44.73 kg Alexey Bradfordng DO [facility] 04-14-2023 22:23-0500 Diastolic blood pressure 64 mm[Hg] Alexey Bradfordng DO [facility] 04-14-2023 22:23-0500 Systolic blood pressure 132 mm[Hg] Alexey Bradfordng DO Work Phone: [facility] 01-29-2022 12:15-0400 Body height 161.29 cm Stevenson Corbin Other [facility] Other 01-02-2022 08:47-0400 Body weight 49.9 kg Tai Hinojosa MD Work Phone: [facility] 01-02-2022 08:47-0400 Diastolic blood pressure 77 mm[Hg] Tai Hinojosa MD Work Phone: [facility] 01-02-2022 08:47-0400 Heart rate 68 /min Tai Hinojosa MD Work Phone: [facility] 01-02-2022 08:47-0400 SaO2% (BldA) [Mass fraction] 96 % Tai Hinojosa MD Work Phone: [facility] 01-02-2022 08:47-0400 Systolic blood pressure 128 mm[Hg] Tai Hinojosa MD Work Phone: [facility] 12-06-2021 15:00-0400 Body height 161.29 cm Sena Jabier Other [facility] Other 12-06-2021 15:00-0400 Body temperature 98 [degF] Sena Jabier Other [facility] Other 12-06-2021 15:00-0400 Diastolic blood pressure 85 mm[Hg] Sena Jabier Other [facility] Other 12-06-2021 15:00-0400 Respiratory rate 18 /min Sena Jabier Other [facility] Other 12-06-2021 15:00-0400 SaO2% (BldA) [Mass fraction] 96 % Sena Jabier Other [facility] Other 12-06-2021 15:00-0400 Systolic blood pressure 157 mm[Hg] Sena Jabier Other [facility] Other 10-18-2021 12:35-0400 Diastolic blood pressure 58 mm[Hg] MD Stevenson Corbin Work Phone: [facility] 10-18-2021 12:35-0400 Heart rate 64 /min MD Stevenson Corbin Work Phone: [facility] 10-18-2021 12:35-0400 Respiratory rate 16 /min MD Stevenson Corbin Work Phone: [facility] 10-18-2021 12:35-0400 SaO2% (BldA) [Mass fraction] 95 % MD Stevenson Corbin Work Phone: [facility] 10-18-2021 12:35-0400 Systolic blood pressure 146 mm[Hg] MD Stevenson Corbin Work Phone: [facility] 10-18-2021 12:19-0400 Body height 160.02 cm MD Stevenson Corbin Work Phone: [facility] 10-18-2021 12:19-0400 Body mass index (BMI) [Ratio] 18.1 kg/m2 MD Stevenson Corbin Work Phone: [facility] 10-18-2021 12:19-0400 Body weight 46.6 kg MD Stevenson Corbin Work Phone: [facility] 10-18-2021 11:35-0400 Inhaled oxygen flow rate 2 L/min MD Stevenson Corbin Work Phone: [facility] 10-18-2021 10:53-0400 Body temperature 97.1 [degF] MD Stevenson Corbin Work Phone: [facility] 09-25-2021 14:35-0400 Diastolic blood pressure 78 mm[Hg] Alexey Garcia Furlong Work Phone: [facility] DO Work Phone: 09-25-2021 14:35-0400 Systolic blood pressure 162 mm[Hg] Alexey G Furlong Work Phone: [facility] DO Work Phone: 09-25-2021 14:32-0400 Body height 160.02 cm Alexey G Furlong Work Phone: [facility] [employer] [facility] DO Work Phone: 09-25-2021 14:32-0400 Body mass index (BMI) [Ratio] 18.42 kg/m2 Alexey G Furlong Work Phone: [facility] [employer] DO Work Phone: 09-25-2021 14:32-0400 Body surface area Derived from formula 1.46 m2 Alexey G Furlong Work Phone: [facility] [employer] DO Work Phone: 09-25-2021 14:32-0400 Body weight 47.17 kg Alexey G Furlong Work Phone: [facility] DO Work Phone: 09-25-2021 14:32-0400 Diastolic blood pressure 90 mm[Hg] Alexey G Furlong Work Phone: [facility] DO Work Phone: 09-25-2021 14:32-0400 Heart rate 83 /min Alexey G Furlong Work Phone: [facility] DO Work Phone: 09-25-2021 14:32-0400 Systolic blood pressure 168 mm[Hg] Alexey G Furlong Work Phone: [facility] DO Work Phone: 09-13-2021 12:08-0400 Body height 160.02 cm MD Stevenson Corbin Work Phone: [facility] 09-13-2021 12:08-0400 Body mass index (BMI) [Ratio] 18.6 kg/m2 MD Stevenson Corbin Work Phone: [facility] 09-13-2021 12:08-0400 Body weight 47.8 kg MD Stevenson Corbin Work Phone: [facility] 05-30-2021 09:45-0500 Body height 161.29 cm Stevenson Olexa Other [facility] Other 05-30-2021 09:45-0500 Body mass index (BMI) [Ratio] 16.39 kg/m2 Stevenson Olexa Other [facility] [facility] Other 05-30-2021 09:45-0500 Body weight 42.64 kg Stevenson Olexa Other [facility] Other 03-22-2021 14:00-0500 Body height 161.29 cm Radha Bosch Other [facility] Other 03-22-2021 14:00-0500 Body mass index (BMI) [Ratio] 16.56 kg/m2 Radha Bosch Other [facility] Other 03-22-2021 14:00-0500 Body temperature 98.2 [degF] Radha Bosch Other [facility] Other 03-22-2021 14:00-0500 Body weight 43.09 kg Radha Bosch Other [facility] Other 03-22-2021 14:00-0500 Diastolic blood pressure 60 mm[Hg] Radha Bosch Other [facility] Other 03-22-2021 14:00-0500 Respiratory rate 18 /min Radha Bosch Other [facility] Other 03-22-2021 14:00-0500 SaO2% (BldA) [Mass fraction] 96 % Radha Bosch Other [facility] Other 03-22-2021 14:00-0500 Systolic blood pressure 140 mm[Hg] Radha Bosch Other [facility] Other Encounters Encounter Date Encounter Type Care Provider Facility Start: 04-11-2023 Continuing Care Alexey gtz DO Work Phone: [facility] Comment on above: Primary osteoarthrit is of left hip (Primary Dx); Hyposmolality syndrome; Movement disorder Start: 04-04-2023 ambulatory [facility] Start: 03-04-2023 End: 03-05-2023 ambulatory HERVE Candice STARKEY [facility] Start: 01-08-2023 End: 01-08-2023 ambulatory TAI HINOJOSA Facility:[facility] Start: 07-03-2022 End: 07-03-2022 ambulatory TAI HINOJOSA Facility:[facility] Start: 06-18-2022 Office outpatient vi sit 15 minutes Stevenson Corbin [facility] Start: 06-18-2022 End: 06-18-2022 ambulatory Stevenson Corbin Facility:[facility] Start: 06-18-2022 End: 06-18-2022 ambulatory DO Alexey Polo Work Phone: [facility] Work Phone: Start: 06-18-2022 End: 06-18-2022 Patient encounter procedure DO Alexey Polo Work Phone: [facility] Start: 06-04-2022 End: 06-04-2022 ambulatory LENA HAMEED . Facility:[facility] Start: 04-19-2022 End: 04-19-[address] EVA POOLE . Facility:[facility] Start: 03-23-2022 End: 03-23-[address] ERICK BERG . Facility:[facility] Start: 02-23-2022 End: 02-24-[address] ALEXEY POLO Facility:[facility] Start: 01-29-2022 Office outpatient vi sit 15 minutes Stevenson Corbin [facility] Start: 01-29-2022 End: 01-29-2022 ambulatory Stevenson Corbin [facility] Other Start: 01-27-2022 End: 01-28-[address] EMMA GO Facility:[facility] Start: 01-02-2022 End: 01-02-2022 Patient encounter procedure Tai Hinojosa MD Work Phone: Neurology Comment on above: Lingual facial bucca l dyskinesia (Primary Dx); Dyskinesia, tardive; Dyskinesia, orofacial; Excessive physiologic tremor Start: 12-27-2021 End: 12-27-[address] ALEXEY OPLO Facility:[facility] Start: 12-06-2021 End: 12-06-2021 ambulatory Sena Jabier Other [facility] Other Start: 12-06-2021 Office outpatient vi sit 15 minutes Sena Jabier [facility] Start: 12-04-2021 Postop follow up vis it related to original px Stevenson Olexa [facility] Start: 12-04-2021 End: 12-04-2021 ambulatory Stevenson Olexa [facility] Other Start: 12-04-2021 End: 12-04-2021 Patient encounter procedure MD Stevenson Corbin Work Phone: [facility] Start: 11-01-2021 End: 11-01-2021 ambulatory Stevenson Olexa Other [facility] Other Start: 11-01-2021 Telephone encounter Stevenson Corbin [facility] Start: 10-26-2021 Postop follow up vis it related to original px Stevenson Olexa [facility] Start: 10-26-2021 End: 10-26-2021 ambulatory Stevenson Olexa [facility] Other Start: 10-26-2021 End: 10-26-2021 Patient encounter procedure MD Stevenson Corbin Work Phone: [facility] Start: 10-18-2021 End: 10-18-2021 ambulatory Stevenson Olexa Facility:[facility] Start: 10-18-2021 End: 10-18-2021 Admission to same day surgery center MD Stevenson Corbin Work Phone: [facility] [place] Start: 10-17-2021 End: 10-17-2021 ambulatory Stevenson Olexa Other [employer] Other Start: 10-17-2021 Telephone encounter Stevenson Corbin [facility] Start: 10-13-2021 End: 10-13-2021 ambulatory Stevenson Corbin Facility:[facility] Start: 10-13-2021 End: 10-13-2021 Patient encounter procedure MD Stevenson Corbin Work Phone: [facility] Start: 10-09-2021 End: 10-09-2021 Patient encounter procedure MD Stevenson Corbin Work Phone: [facility] Start: 09-25-2021 Office consultation new/estab patient 60 min Alexey Polo Work Phone: -[facility] DO Work Phone: Start: 09-20-2021 End: 09-20-2021 ambulatory Stevenson Corbin Facility:[facility] Start: 09-20-2021 End: 09-20-2021 Departed Referred MD Stevenson Corbin Work Phone: [facility] [place] Start: 09-18-2021 Telephone encounter Stevenson Corbin [facility] Start: 09-18-2021 End: 09-18-2021 ambulatory Stevenson Corbin [place] [employer] Other Start: 09-18-2021 End: 09-18-2021 Patient encounter procedure MD Stevenson Corbin Work Phone: [facility] Start: 09-13-2021 End: 09-13-2021 ambulatory Stevenson Corbin Facility:[facility] Start: 08-22-2021 End: 08-22-[address] ALEXEY POLO Facility:[facility] Start: 07-12-2021 Telephone encounter Tai johnson MD Work Phone: Neurology Comment on above: Insurance Authorizat ion Start: 06-29-2021 End: 06-30-[address] ALEXEY POLO Facility:[facility] Start: 05-30-2021 End: 05-30-2021 ambulatory Stevenson Corbin Other [place] [employer] Other Start: 05-30-2021 Office outpatient ne w 30 minutes Stevenson Corbin [facility] Start: 03-22-2021 End: 03-22-2021 ambulatory Arnavfrannie Hiro Other [facility] Other Start: 03-22-2021 Office outpatient vi sit 15 minutes Radha Bosch [facility] Start: 06-16-2020 End: 06-17-2020 ambulatory [facility] Facility:[facility] Patient encounter status Alexey Polo Work Phone: -[facility] DO Work Phone: Procedures Date Procedure [...] Treatment Date Care Activity Detail Author Start: 12-28-2030 DTaP,Tdap and Td Vaccines (3 - Td or Tdap) DTaP,Tdap and Td Vaccines (3 - Td or Tdap) [facility] Start: 03-12-2024 Adult BMI Screening Adult BMI Screening [facility] Start: 03-12-2024 Tobacco Screening Tobacco Screening [facility] Start: 12-14-2022 COVID-19 Vaccine ( season) COVID-19 Vaccine ( season) [facility] Start: 12-14-2022 Influenza vaccination Influenza Vaccine [facility] Start: 12-14-2021 Influenza vaccination INFLUENZA (#1) [facility] Start: 12-04-2021 Plain X-ray of right shoulder XR shoulder RT min 2V* [facility] Start: 12-04-2021 End: 12-04-2021 Patient encounter procedure Departed Clinical [facility] Start: 10-18-2021 End: 10-18-2021 [facility] Work Phone: Start: 09-20-2021 Prosthetic total arthroplasty of right shoulder OR Shoulder Arthroplasty-Total (Right) [facility] Start: 08-08-2021 Adult depression screening assessment DEPRESSION SCREENING [facility] Start: 04-15-2021 ADVANCE DIRECTIVE DISCUSSION ADVANCE DIRECTIVE DISCUSSION [facility] Start: 2020 BONE DENSITY BONE DENSITY [facility] Start: 2020 Fall Risk Screening Fall Risk Screening [facility] Start: 2020 PNEUMOCOCCAL: 65+ (1 - PCV) PNEUMOCOCCAL: 65+ (1 - PCV) [facility] Start: 2005 SHINGRIX VACCINE (1 of 2) SHINGRIX VACCINE (1 of 2) [facility] Start: 2000 COLOGUARD (FIT-DNA) COLOGUARD (FIT-DNA) [facility] Start: 2000 Colonoscopy COLONOSCOPY [facility] Start: 2000 COLORECTAL CANCER SCREENING COLORECTAL CANCER SCREENING [facility] Start: [address] COLONOGRAPHY [facility] Start: 2000 DIABETES SCREEN DIABETES SCREEN [facility] Start: 2000 FECAL OCCULT BLOOD FECAL OCCULT BLOOD [facility] Start: 2000 LIPID SCREEN LIPID SCREEN [facility] Start: 2000 SIGMOIDOSCOPY SIGMOIDOSCOPY [facility] Start: 1995 Mammography MAMMOGRAM [facility] Start: 1974 Urine microalbumin profile DTAP,TDAP,TD (1 - Tdap) [facility] Start: 1973 Adult BMI Follow Up Plan Adult BMI Follow Up Plan [facility] Start: 1973 HEPATITIS C SCREENING HEPATITIS C SCREENING [facility] Start: 1967 Depression Screening Depression Screening [facility] Start: 1955 COVID-19 VACCINE (#1) COVID-19 VACCINE (#1) [facility] Start: 1955 Medicare Annual Wellness Visit Medicare Annual Wellness Visit [facility] Immunizations Immunization Date Immunization Notes Care Provider [facility] 03-26-2021 Pfizer-BioNTech COVID-19 Vacc 30 MCG/0.3ML Intramuscular Suspension Alexey Bradfordng Work Phone: [facility] 01-10-2021 Fluzone High-Dose Quadrivalent 0.7 ML Intramuscular Suspension Prefilled Syringe Alexey Polo Work Phone: [facility] 01-10-2021 influenza virus vaccine, unspecified formulation Alexey Polo DO Work Phone: [facility] 12-28-2020 diphtheria, tetanus toxoids and pertussis vaccine Alexey G Bglong Work Phone: [facility] 07-14-2020 Pfizer-BioNTech COVID-19 Vacc 30 MCG/0.3ML Intramuscular Suspension Alexey G Suzetteng Work Phone: [facility] 06-28-2020 tetanus toxoid, redu anne diphtheria toxoid, and acellular pertussis vaccine, adsorbed Alexey Bradfordng Work Phone: [facility] 06-23-2020 Pfizer-BioNTech COVID-19 Vacc 30 MCG/0.3ML Intramuscular Suspension Alexey G Bglong Work Phone: [facility] 12-19-2019 influenza, injectabl e, quadrivalent, preservative free Alexey G Bglong Work Phone: [facility] 12-15-2019 influenza, seasonal, injectable Alexey Bglong DO Work Phone: [facility] 10-28-2019 zoster vaccine recombinant Alexey G Stratavialong Work Phone: [facility] 02-25-2019 zoster vaccine recombinant Alexey G Furlong Work Phone: [facility] 12-25-2018 influenza, injectabl e, quadrivalent, preservative free Alexey G Furlong Work Phone: [facility] 12-25-2018 pneumococcal conjuga te vaccine, 13 valent Alexey G Furlong Work Phone: [facility] 12-20-2017 influenza, injectabl e, quadrivalent, preservative free Alexey G Furlong Work Phone: [facility] 12-14-2016 influenza virus vaccine, unspecified formulation Alexey Furlong DO Work Phone: [facility] 12-14-2016 influenza, injectabl e, quadrivalent, preservative free Alexey G Furlong Work Phone: [facility] 11-20-2015 influenza, seasonal, injectable, preservative free Alexey G Furlong Work Phone: [facility] [employer] DO Work Phone: 11-20-2015 pneumococcal polysaccharide vaccine, 23 valent Alexey G Furlong Work Phone: [facility] [employer] DO Work Phone: 11-20-2015 zoster vaccine, live Alexey G Furlong Work Phone: [facility] [employer] DO Work Phone: 12-31-2014 influenza, seasonal, injectable, preservative free Alexey G Furlong Work Phone: [facility] NEGATED: Highlighted row has not occurred!05-19-2022 pneumococcal polysaccharide vaccine, 23 valent Alexey Furlong DO Work Phone: [facility] Payers Date Payer Category Payer Medicare [id number] 2021 Self-pay [id number] 2020 Medicare [id number] 2013 Medicaid [place] [id number] 2013-Present [phone] [address] [place] [address] Medicaid [id number] 1959 Medicaid [id number] 1959 Medicare [id number] 1955 Unknown [id number] [id number] 1955 Unknown [id number] 2.16.840.1.093809.3.579.2.593 1955 Unknown [id number] 2.16.840.1.630432.3.579.2.593 1955 Unknown [id number] 2.16.840.1.495030.3.579.2.593 1955 Unknown [id number] 2.16.840.1.590343.3.579.2.593 1955 Unknown [id number] 2.16.840.1.687675.3.579.2.593 1955 Unknown [id number] 2.16.840.1.543364.3.579.2.593 1955 Unknown [id number] 2.16.840.1.351258.3.579.2.593 1955 Unknown [id number] 2.16.840.1.293416.3.579.2.593 Unknown Unknown [id number] 2.16.840.1.932205.3.579.2.531 Unknown [id number] 2.16.840.1.151758.3.579.2.531 Unknown [id number] 2.16.840.1.041574.3.579.2.531 Unknown [id number] 2.16.840.1.946882.3.579.2.531 Unknown [id number] 2.16.840.1.910717.3.579.2.531 Unknown [id number] 2.16.840.1.653811.3.579.2.531 Unknown [id number] 2.16.840.1.251926.3.579.2.531 Unknown [id number] 2.16.840.1.783561.3.579.2.531 Unknown [id number] 2.16.840.1.916406.3.579.2.531 Social History Date Type Detail Facility Start: 2020 End: 02-18-2023 Daily caffeine consumption Daily caffeine consumption [facility] Comment on above: 1-2 cups of coffee d aily. Occas iced tea. Diet coke ocassional; Quit in ; Start: 2020 End: 03-12-2023 Sex Assigned At [facility] Start: 10-18-2021 End: 02-18-2023 Tobacco smoking status NMIS Ex-smoker (finding) [facility] Start: 1955 Sex Assigned At Female F [facility] End: 07-21-2017 History of tobacco use Current smoker [facility] End: 07-21-2017 History of tobacco use Cigarette Smoker [facility] Start: 07-21-2018 End: 02-18-2023 Tobacco use and exposure Smokeless tobacco non-user [facility] Start: 08-10-2020 End: 01-02-2022 Alcohol intake Lifetime non-drinker (finding) [facility] Start: 07-21-2018 History SDOH Alcohol Frequency 1 [facility] Start: 1955 Sex Assigned At Not on file C [facility] Start: 12-23-2021 End: 01-02-2022 Exposure to SARS-CoV-2 (event) Not sure [facility] Start: 03-12-2023 Alcohol intake Current non-dr forest ranger of alcohol (finding) [facility] Housing Instability Unknown [facility] Start: 03-23-2022 Tobacco Comment Quit in the 'S, STARTED AGE 18 [facility] Medical Equipment Procedure Code Equipment Code Equipment Origin al Text Equipment Identifier Dates Arthroplasty, shoulder, total Total reverse shoulder prosthesis [id number] [id number] 99 FDA Start: 10-18-2021 Arthroplasty, shoulder, total Total reverse shoulder prosthesis [id number] [id number] FDA Start: 10-18-2021 Arthroplasty, shoulder, total Total reverse shoulder prosthesis [id number] [id number])[id number] 83 FDA Start: 10-18-2021 Arthroplasty, shoulder, total Total reverse shoulder prosthesis [id number] [id number])21.007 57 FDA Start: 10-18-2021 Arthroplasty, shoulder, total Total reverse shoulder prosthesis [id number] [id number])[id number] 16 FDA Start: 10-18-2021 Arthroplasty, shoulder, total Total reverse shoulder prosthesis [id number] [id number] FDA Start: 10-18-2021 Arthroplasty, shoulder, total Total reverse shoulder prosthesis [id number] [id number] FDA Start: 10-18-2021 Arthroplasty, shoulder, total Total reverse shoulder prosthesis [id number] [id number] FDA Start: 10-18-2021 Arthroplasty, shoulder, total Total reverse shoulder prosthesis [id number] [id number] FDA Start: 10-18-2021 Arthroplasty, shoulder, total Total reverse shoulder prosthesis [id number] [id number] FDA Start: 10-18-2021 Mesh Pco Vntrl P tch 4.6cm Rpl [id number] - Sna - [id number] Start: 01-29-2020 Goals Date Patient Goal Desired Activity /State Personal health goal Comment on above: Formatting of this n ote might be different from the original. Evaluation of progress towards goal: will DC from ED to SNF upon arrangements Personal health goal Comment on above: Formatting of this n ote might be different from the original. Evaluation of progress towards goal: return to [facility] Clinical Notes 03-22-2021 to 04-11-2023 Alexey Polo, DO - 04/11/2023 11:59 PM EST Note Date & Type Note Facility 04-11-2023 History of Present illness Narrative Patient Name: Melanie Espinoza Date of : 1955 Date of Service: 04/11/2023 Facility: [facility] Type of Visit: Subsequent Visit Subjective Melanie Espinoza is a 67 y.o. female seen today at [facility] facility for monthly visit. Melanie is having a lot of hip pain and has an appointment for ortho coming up to discuss hip replacement. had a fall recently and had to be sent to the ER. There were no fractures. She is back and has no new problems. Allergies: Erythromycin and Clarithromycin Code Status: [facility] BP 132/64 Temp 36.6 C (97.9 F) Wt 44.7 kg (98 lb 9.6 oz) BMI 17.47 kg/m Physical Exam Vitals reviewed. Constitutional: General: She is not in acute distress. Appearance: She is underweight. HENT: Head: Normocephalic. Eyes: Extraocular Movements: Extraocular movements intact. Conjunctiva/sclera: Conjunctivae normal. Cardiovascular: Rate and Rhythm: Normal rate and regular rhythm. Pulses: Normal pulses. Heart sounds: Normal heart sounds. No murmur heard. Pulmonary: Effort: Pulmonary effort is normal. No respiratory distress. Breath sounds: Normal breath sounds. No wheezing, rhonchi or rales. Abdominal: General: Bowel sounds are normal. Palpations: Abdomen is soft. Tenderness: There is no abdominal tenderness. Musculoskeletal: Cervical back: Neck supple. Neurological: Mental Status: She is alert and oriented to person, place, and time. Motor: Tremor present. Psychiatric: Mood and Affect: Mood normal. Behavior: Behavior normal. Thought Content: Thought content normal. Judgment: Judgment normal. Summary / Assessment / Plan 1. Primary osteoarthritis of left hip 2. Hyposmolality syndrome 3. Movement disorder I cautioned her about falling and to always use the walker. A new fracture could jeopardize her ability to get a hip replacement. F/U with ortho. Medically stable. She is using high risk medications with benefit. All medications reviewed and are medically necessary. ELECTRONICALLY SIGNED BY: Alexey Polo DO documented in this encounter [facility] 04-04-2023 Note Orthopedic Surgery Subjective Pain of the Left Hip (L hip possible fracture, patient states she fell at [facility] last night ) 04/04/23 Melanie Espinoza is a 67 y.o. female presenting for evaluation and treatment of her left hip. Patient had a history of ORIF left hip with 3 cannulated screws several years ago. Over the past year patient has reported increasing left hip pain. Patient sustained a fall yesterday she landed onto her left hip. Radiographic evidence of avascular necrosis and worsening narrowing of her left femoral acetabular joint space. Subluxation and collapse of her femoral head. Patient was seen and evaluated in the emergency department yesterday. Patient presents in a wheelchair but prior to her fall yesterday was able to ambulate with a walker. Patient History Past Surgical History: Procedure Laterality Date RECTAL PROLAPSE REPAIR SHOULDER SURGERY Past Medical History: Diagnosis Date Hypertension Objective General: There is no height or weight on file to calculate BMI. No acute distress, comfortable Left Hip: Inspection- no ecchymosis, no edema Tender to palpation over greater troches therwise non-tender Hip ROM: Internal Rotation 30??? External Rotation 50??? Flexion 120??? Strength: Hip Flexion 5/5 Hip Extension 5/5 Hip Abduction 5/5 Hip Adduction 5/5 Knee Flexion 5/5 Knee Extension 5/5 Sensation: intact over superficial peroneal, deep peroneal and tibial nerve distributions Imaging X-ray of the left hip and pelvis yesterday: Evidence of avascular necrosis of the femoral head and collapse of the femoral head with femoral acetabular joint space narrowing and superior subluxation of the femoral, screws protruding into the joint Imaging personally reviewed and interpreted by attending physician. Findings discussed with patient. Assessment/Plan Melanie Espinoza is a 67 y.o. 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 Location: left Quality: increasing Severity: moderate to severe pain Context: walker Aggravating Factors: cannot identify Associated Symptoms: no redness; no warmth; no ecchymosis; no drainage; no swelling; no fever; no chills; no calf pain Previous Surgery: surgical procedure: Prior Imaging: x ray ORIF left hip fx [id number] ORIF LT HIP ROS Patient reports no [...] left hip OA/AVN Plan Refer to Dr [facility] 01-08-2023 Note HNO ID: [id number] Author: Tai Hinojosa MD Service: ? Author Type: Physician Type: Progress Notes Filed: 01/08/2023 2:41 PM Note Text: January 08, 2023 Tai Hinojosa MD [address] / [address] [address] Esteban Garza MD ([facility]) [address] [place] [address] Melanie Espinoza : 1955 Interval History: Melanie [...] pulse 83, h (more content not included)... [facility] 07-03-2022 Note HNO ID: [id number] Author: Tai Hinojosa MD Service: ? Author Type: Physician Type: Progress Notes Filed: 07/03/2022 12:35 PM Note Text: July 03, 2022 Tai Hinojosa MD [address] / [place] [id number] Esteban Garza MD ([facility]) [address] [place] [id number] Melanie Espinoza : 1955 Interval History: Melanie [...] This could b (more content not included)... [facility] 06-18-2022 Evaluation note Encounter Date Diagnosis Assessment [...] arthroplasty of right shoulder (ICD-10 - Z96.611) [facility] Other 10-17-2022 Evaluation note* Encounter Date Diagnosis [...] exercises, these were demonstrated. Call with questions/concerns. [facility] Other 09-20-2022 Instructions* Patient Instructions* Tai Hinojosa MD - 01/02/2022 9:43 AM EDT 1) Double the dose of Austedo to 12 mg twice a day for 1 month, then increase further to 18 mg 2) continue clonazepam and methocarbamol 3) continue primidone for the action tremor [facility] History of Present illness Narrative* Tai Hinojosa MD - 01/02/2022 9:25 AM EDT January 02, 2022 Tai Hinojosa MD [address] / [place] [id number] Esteban Garza MD ([facility]) [address] [place] [address] Melanie Espinoza : 1955 Interval History: Melanie [...] on the day of service, which included otga-ih-zhuo patient care, completing clinical documentation, obtaining and/or reviewing separately obtained history, performing a medically appropriate examination, counseling and educating the patient/family/caregiver, and ordering medications, tests, or procedures. Thank you for including me in the care of this interesting patient. 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 Her sodium is within normal limit. Continue fluid restriction. Nov, HTN (hypertension) (ICD-10 - I10) Blood pressure is high today but usually well controlled at the [facility]. Continue current medications. Nov, Hydronephrosis (ICD-10 - N13.30) She reported that she was seen by neurologist and had extensive work-up done. She was advised intervention needed. Nov, Dyslipidemia (ICD-10 - E78.5) Continue statins. Continue follow with PCP for LFTs and lipid profile monitoring. [facility] Other [id number] Evaluation note* Encounter Date Diagnosis Assessment Notes [...] arthroplasty of right shoulder (ICD-10 - Z96.611) [facility] Other 07-14-2022 Evaluation note* Encounter Date Diagnosis [...] on her own. Call with questions/concerns . [facility] Other 07-05-2022 Evaluation note* Encounter Date Diagnosis Assessment Notes Treatment Notes Treatment Clinical Notes Oct, History of reverse total replacement of right shoulder joint (ICD-10 - Z98.890) [facility] Other 06-06-2022 Evaluation note* Encounter Date Diagnosis Assessment Notes Treatment Notes Treatment Clinical Notes Sep, Status post reverse total arthroplasty of right shoulder (ICD-10 - Z96.611) [facility] Other 03-30-2022 Miscellaneous Notes* Telephone Encounter - [...] 07/12/2021 12:53 PM EDT Donita calling from [facility] States the pt received a letter from insurance company that medication Austedo 6 mg was denied. Will need prior authorization. Can you please assist with PA. [place] requesting that once PA approved to fax to them at [phone]. Thanks. * Telephone Encounter - Kailey Andrews - 07/12/2021 11:08 AM EDT Patient called and would like to know if the doctor can reach out to the insurance company to do a prior auth for Austedo 6mg to receive medication.Please advise Thank you, Kailey documented in this encounterSal[facility]03-17-2022 NotePROCEDURE: XR SHOULDER RT 2V or > [...] Electronically authenticated by: CM RAMIREZ Date: 2021-06-29 14:37[facility]02-15-2022 Evaluation note* Encounter Date Diagnosis Assessment Notes [...] pain of right shoulder (ICD-10 - M25.511) [facility] Other 12-08-2021 Evaluation note* Encounter Date Diagnosis [...] stated that she has an appointment with contact center team lead to check her thyroid. She follow-up with her family doctor as well. 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 documented in this encounter [facility] TherapeuticsHistory general Narrative - Reported* Type Description Date Medical History hypothyroidism Medical History anxiety and depression 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 Surgical History tubal revision 1984 Surgical History HIP FRACTURE 02/2020 Surgical History COLONSCOPY 2020 Surgical History RECTAL PROLAPSE 12/2020 Hospitalization History SEE ABOVE Hospitalization History RECTAL PROLAPSE 12/2020 [facility] Other History general Narrative - Reported* Type Description Date Medical History hypothyroidism Medical History anxiety and depression 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 Surgical History tubal revision 1984 Surgical History HIP FRACTURE 02/2020 Surgical History COLONSCOPY 2020 Surgical History RECTAL PROLAPSE 12/2020 Surgical History right reverse total shoulder 20 22 Hospitalization History SEE ABOVE Hospitalization History RECTAL PROLAPSE 12/2020 [facility] Other InstructionsNot on filedocumented in this encounter [facility] Summary Purpose Family History Unknown Family Member Name Dates Details Family history of myocardial infarction: Father(V17.3, Z82.49) Status:Active Family history of cerebrovas cular accident (CVA): Mother(V17.1, Z82.3) Status:Active Relationship Condition Age at Onset Recorded Date/T jeferson Not Specified Cerebrovascular disease Unknown Chronic obstructive pulmonary disease Unk nown Hypertension Unknown father Coronary artery disease Unknown Lymphoma Unknown brother Heart disease Unknown sister Malignant neoplasm Unknown Advance Directives Advance Directive Response Recorded Date/ Time Advance Directives No May 8:49am Advance Directive Response Recorded Date/ Time Advance Directives No May 7:49am Latest Code Status on File Code Status Date Activated Date Inactivated Comments Full Code 05/18/2022 5:36 PM 05/19/2022 9:18 PM Code Status History Code Status Date Activated Date Inactivated Comments Full Code 02/04/2021 10:29 AM 02/06/2021 4:12 PM DNR Comfort Care Arrest (DNR -CCA) [place] 01/07/2021 4:37 PM 01/08/2021 7:11 PM Full Code 12/23/2020 7:31 AM 12/26/2020 12:12 PM Chief Complaint and Reason for Visit Chief Complaint Shoulder pain Shoulder pain Shoulder pain Shoulder pain Shoulder pain Z96.611 M75.101 Additional Source Comments INFORMATION SOURCE (unrecogn ized section and content) DATE CREATED AUTHOR 01/14/2020 [facility] DATE CREATED AUTHOR AUTHOR'S ORGANIZ ATION 02/23/2021 [facility] DATE CREATED AUTHOR AUTHOR'S ORGANIZ ATION 04/12/2021 [facility] DATE CREATED AUTHOR AUTHOR'S ORGANIZ ATION 09/26/2021 [employer] DATE CREATED AUTHOR AUTHOR'S ORGANIZ ATION 06/06/2022 [facility] DATE CREATED AUTHOR AUTHOR'S ORGANIZ ATION 08/09/2022 [facility] DATE CREATED AUTHOR AUTHOR'S ORGANIZ ATION 01/16/2023 [facility] DATE CREATED AUTHOR AUTHOR'S ORGANIZ ATION 04/10/2023 [facility] REASON FOR VISIT (unrecogniz ed section and content) Reason Comments Insurance Authorization Reason Comments Follow Up Care Teams (unrecognized sec tion and content) Team Status: Inactive Member Role Status Dates Alexey Polo DO Primary Care Provider Active Stevenson Corbin MD Attending Provider Active Team Status: Inactive Member Role Status Dates Stevenson Corbin MD Attending Provider Active Alexey Polo DO Primary Care Provider Active Team Status: Active Member Role Status Dates Alexey Polo DO Primary Care Provider Active 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 Relationship Specialty Start Date End Date Esteban Garza [address] [place] [address] PCP - General Family Practice 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/18 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 Relationship Specialty Start Date End Date Esteban Garza [address] [place] [address] PCP - General Family Medicine 07/21/18 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 Relationship Specialty Start Date End Date BgleeannJoseAlexey G [address] [place] [address] PCP - General Family Medicine 03/27/22 Source Comments (unrecognize d section and content) In the event this informatio n is protected by the Federal Confidentiality of Alcohol and Drug Abuse Patient Records regulations: The Federal rules restrict any use of the information to criminally investigate or prosecute any alcohol or drug abuse patient.[facility] CenterIn the event this information is protected by the Federal Confidentiality of Alcohol and Drug Abuse Patient Records regulations: The Federal rules restrict any use of the information to criminally investigate or prosecute any alcohol or drug abuse patient.[facility] Goals (unrecognized section and content) Goals may [...] BE BASED ON THE PRIMARY CLINICAL RECORDS. [facility] [employer] [facility]. provides no warranty or guarantee of the accuracy or completeness of information in this document.
[2023-05-11 05:18] LABS: Hematocrit 23.2 % (36.0-48.0); Hemoglobin 6.4 g/dL (12.0-16.0)
[2023-05-11 05:30] LABS: INR 0.93; Prothrombin Time 9.9 sec (9.0-11.6)
[2023-05-11 05:32] LABS: Alanine Aminotransferase 14 U/L (14-59); Albumin Globulin Ratio 0.8; Alkaline Phosphatase 62 U/L (46-116); Anion Gap 10.8; Aspartate Amino Transferase 21 U/L (15-37); BUN Creatinine Ratio 15.7; Bilirubin Total 0.1 mg/dL (0.2-1.0); Calcium 8.6 mg/dL (8.5-10.1); Carbon Dioxide 27.2 mmol/L (21.0-32.0); Chloride 100 mmol/L (98-107); Estimated GFR (African America >60 (>=60); Estimated GFR (Non-African Ame >60 (>=60); Globulin 3.6 g/dL; Glucose 94 mg/dL (74-106); Sodium 134 mmol/L (136-145); Total Protein 6.6 g/dL (6.4-8.2)
[2023-05-11 05:32] LABS: Basophils Percent Auto 0.8 % (0.2-2.0); Eosinophils Absolute Auto 0.3 10^3/uL (0.0-0.7); Eosinophils Percent Auto 5.2 % (0.9-7.0); Immature Granulocytes Abs Auto 0.02 10^3/uL (0.00-0.03); Immature Granulocytes Pct Auto 0.4 % (0.0-0.5); Lymphocytes Absolute Auto 1.3 10^3/uL (1.2-3.8); Lymphocytes Percent Auto 24.3 % (20.5-60.0); Mean Corpuscular HGB Conc 27.8 g/dL (29.9-35.2); Mean Corpuscular Hemoglobin 16.8 pg (26.7-34.0); Mean Corpuscular Volume 60.5 fL (81.0-99.0); Mean Platelet Volume 7.9 fL (9.5-13.5); Monocytes Absolute Auto 0.6 10^3/uL (0.3-0.8); Monocytes Percent Auto 12.2 % (1.7-12.0); Neutrophils Percent Auto 57.1 % (43.0-75.0); Platelet Count 429 10^3/uL (150-450); Red Blood Count 3.57 10^6/uL (4.20-5.40); Red Cell Distribution Width 18.8 % (11.0-15.0); White Blood Count 5.2 10^3/uL (4.0-11.0)
[2023-05-11 05:34] LABS: Hematocrit 21.6 % (36.0-48.0)
[2023-05-11 05:34] LABS: Troponin I High Sensitivity 7.2 pg/mL (4.0-51.3)
[2023-05-11] MEDS: ONDANSETRON PF 4 MG/2 ML VIAL IV (05:37)
[2023-05-11] MEDS: MORPHINE SULFATE 4 MG/ML VIAL IV (05:37)
[2023-05-11 05:43] LABS: Partial Thromboplastin Time <20.0 sec (22.3-36.2)
[2023-05-11] MEDS: 0.9 % SODIUM CHLORIDE 1,000 ML 75 ML IV (06:11)
--- OUTSIDE RECORDS SUMMARY | 2023-05-11 06:56 | XMS_ITS | CCD ---
Author Name Unknown Address [address] [place] [address] Organization [facility] Care Team Providers Care Artillery Meteorological Man Name Role Phone HERVE STARKEY Admitting Unavailable ESTEBAN GARZA Referring Unavailable ESTEBAN GARZA Primary Care Unavailable HERVE STARKEY Attending Unavailable Alexey Polo Unavailable Radha Bosch Unavailable Stevenson Corbin Unavailable Sena Eugene Unavailable MD Stevenson Corbin Attending Provider DO Alexey Polo Primary Care Provider [phone] Esteban Garza Primary Care Provider [phone] Esteban Garza Primary Care Provider CHRIST, DR ALEXEY Garcia Primary Care Unavailable LENA PALMER Attending Unavailable ZARI ., LENA Admitting Unavailable ASHLEY, DR CM Napier Consulting Unavailable SOFI DISLA Consulting Unavailable ZARI Gore, LENA Consulting Unavailable CHRIST, DR ALEXEY Garcia Primary Care Unavailable SPENCER ., DR RODRIGUEZ Attending Unavailable SPENCER ., DR RODRIGUEZ Admitting Unavailable SPENCER ., DR RODRIGUEZ Consulting Unavailable Sanitago Helms Consulting Unavailable DONAVAN, DR EMMA Palacio [...] Unavailable MARKER ., DR VELASQUEZ Admitting Unavailable ALLEGHANY, DR CM Napier Consulting Unavailable FURLONG, DR [...] Unavailable DO Alexey Polo Primary Care Provider [phone] MD Stevenson Corbin Attending Provider Olexa, Stevenson Admitting Unavailable Olexa, Stevenson Attending Unavailable Furlong, Alexey Primary Care Unavailable Olexa, Stevenson Admitting Unavailable Olexa, Stevenson Attending Unavailable Furlong, Alexey Primary Care Unavailable Olexa, Stevenson Admitting Unavailable Olexa, Stevenson Attending Unavailable [facility] Primary Care Unavailable Olexa, Stevenson Admitting Unavailable Olexa, Stevenson Attending Unavailable [facility], Alexey Primary Care Unavailable Olexa, Stevenson Admitting Unavailable Olexa, Stevenson Attending Unavailable [facility], Alexey Primary Care Unavailable Olexa, Stevenson Admitting Unavailable Olexa, Stevenson Attending Unavailable Furlong, Alexey Primary Care Unavailable Olexa, Stevenson Admitting Unavailable Olexa, Stevenson Attending Unavailable Furlong, Alexey Primary Care Unavailable Olexa, Stevenson Admitting Unavailable Olexa, Stevenson Attending Unavailable [facility], Alexey Primary Care Unavailable Olexa, Stevenson Admitting Unavailable Olexa, Stevenson Attending Unavailable Furlong, Alexey Primary Care Unavailable TAI HINOJOSA Attending Unavailable ESTEBAN GARZA A Primary Care Unavailable TAI HINOJOSA Attending Unavailable TAI HINOJOSA Referring Unavailable ESTEBAN GARZA Primary Care Unavailable HERVE STARKEY Referring Unavailable TELLY PLAZA Attending Unavailable HERVE STARKEY Attending Unavailable Alexey Polo DO Primary Care Provider [phone] Allergies Allergy Classification Reported Allergen(s) Allergy Type Date of Onset Reaction(s) Facility (4 sources) Azithromycin Drug Allergy 0 Unknow [facility] Repository (3 sources) Erythromycin; Translations: [erythromycin] Drug Allergy 7 Nausea And Vomiting [facility] Repository (5 sources) erythromycin base; Translations: [Erythromycin Base] Allergy to substance 1 Unknown Reaction [facility] (1 source) Azithromycin Drug Allergy 2 [facility] Repository (1 source) Clarithromycin Drug Allergy 1 [...] 20 mg/ml oral solution (1 source) Uncompetitive V-syqcyx-C-aspartate Receptor Antagonist, Sigma-1 Agonist take 10 mL [...] 0 Active take 3 tablets by mo [facility] once daily as needed Ibuprofen 200 [...] 27, 2020 11:00pm [facility]four [facility] Levothyroxine Sodium 75 MCG [...] by mouth once daily. polyethylene glycol 3350 67190 mg powder for oral solution (7 sources) [...] every 4 hrs for 5 days KALEE: [id number] Oct, Not-Taking alendronic acid 70 mg oral [...] Administrative/social admission (1 source) Lives in a half-way; Translations: [Person living in residential institution] Episodic [...] Chronic Other aftercare (1 source) Other long filler cigar roller machine (current) drug therapy; Translations: [OTH [facility] CURRENT DRUG THERAPY] Onset: 3 Episodic Other [...] Interpretation Reference Range Facility Follow-Upon 04-04-2023 Follow-Up [id number] Melanie Espinoza 1955 F Date Provider Department Center 04/04/2023 293-TELLY PLAZA MP ORTHO MPORTHO Family History Family history unknown: Yes Level of Service:78386 [place] OFFICE/OUTPATIENT ESTABLISHED LOW MDM 20 MIN () Reason for Visit and Comments: Pain [136] - L hip possible fracture, patient states she fell [facility] last night Normal [facility] Office Visiton 03-04-2023 Follow-up visit [id number] Melanie Espinoza 1955 F Date Provider Department Center 03/04/2023 Shea-HERVE STARKEY MP ORTHO MPORTHO Family History Family history unknown: Yes Level of Service:77054 [place] OFFICE/OUTPATIENT ESTABLISHED LOW MDM 20-29 MIN Reason for Visit and Comments: Pain [136] Normal [facility] CNOVon 01-08-2023 CNOV Office Visit ([facility]) MELANIE ESPINOZA ([id number]) 1955 F Date Time Provider Department 01/08/23 2:00 PM T[address]JOSA [facility] During your visit today, we recorded the following information about you: Pulse Blood pressure Weight Height 83/minute 150/72 44.5 kg 1.6 m Tai Hinojosa MD 01/08/2023 2:41 PM Signed January 08, 2023 Tai Hinojosa MD [address] / [place] [address] Esteban Garza MD ([facility]) [address] [place] [address] Melanie Espinoza : 1955 Interval History: Melanie [...] no CP (more content not included)... Normal [facility] CNOVon 07-03-2022 CNOV Office Visit ([facility]) MELANIE ESPINOZA ([id number]) 1955 F Date Time Provider Department 07/03/22 12:00 PM TAI HINOJOSA [facility] During your visit today, we recorded the following information about you: Pulse Blood pressure Weight 88/minute 135/82 49.9 kg Tai Hinojosa MD 07/03/2022 12:35 PM Signed July 03, 2022 Tai Hinojosa MD [address] / [address] [address] Esteban Garza MD ([facility]) [address] [place] [address] Melanie Espinoza : 1955 Interval History: Melanie [...] lifting he (more content not included)... Normal [facility] XR shoulder RT min 2V*on XR shoulder RT min 2V* [facility] [place] [address] [place] [address] XRay Report Signed Patient: Melanie Espinoza MR#: [id number] 6 : 1955 Acct:[id number] Age/Sex: 67 / F ADM Date: 06/18/22 Loc: [facility] Room: Type: [facility] Attending Dr: Stevenson Corbin MD Copies [...] Taylor Jr., DSofíaOSofía06/18/2022 4:21 PM Dictation Location: [place] [address] Transcribed By: [facility] 06/18/22 162 Dictated By: Tai Taylor Jr, DO 06/18/22 1620 Signed By: 06/18/22 1621 [facility] XR SHOULDER RT 2V or >on XR [...] SIMON ANDRADE Date: 2022-06-04 10:57 Normal [facility] CBC AUTO DIFFon 04-19-2022 BASO # 0.0 103/ul Normal 0.0-0.1 [facility] Comment on above: Performed By: #### C BC #### [facility] [address] [place] [address] Dr. Miranda Claudio Basophils/100 WBC (Bld) 0.2 % Normal 0.2-2.0 [facility] Comment on above: Performed By: #### C BC #### [facility] [address] [place] [address] Dr. Miranda Claudio EO # 0.0 103/ul Normal 0.0-0.7 [facility] Comment on above: Performed By: #### C BC #### [facility] [address] [address] [address] Miranda Claudio Eosinophils/100 WBC (Bld) 0.4 % Critically low 0.9-7.0 [facility] Comment on above: Performed By: #### C BC #### [facility] [address] [address] [address] Miranda Claudio Erythrocyte distribution width (RBC) [Ratio] 13.7 % Normal 11.0-15.0 [facility] Comment on above: Performed By: #### C BC #### [facility] [address] [place] [address] Dr. Miranda Claudio Hematocrit (Bld) [Volume fraction] 33.6 % Critically low 36.0-48.0 [facility] Comment on above: Performed By: #### C BC #### [facility] [address] [place] [address] Dr. Miranda Claudio Hemoglobin (Bld) [Mass/Vol] 11.4 g/dL Critically low 12.0-16.0 [facility] Comment on above: Performed By: #### C BC #### [facility] [address] [place] [address] Dr. Miranda Claudio IG # 0.02 10e3/ul Normal 0.00-0.03 [facility] Comment on above: Performed By: #### C BC #### [facility] [address] [place] [address] Dr. Miranda Claudio IG % 0.4 % Normal 0.0-0.5 [facility] Comment on above: Performed By: #### C BC #### [facility] [address] [place] [address] Dr. Miranda Claudio LYMPH # 0.9 103/ul Critically low 1.2-3.8 [facility] Comment on above: Performed By: #### C BC #### [facility] [address] [place] [address] Dr. Miranda Claudio Lymphocytes/100 WBC (Bld) 18.4 % Critically low 20.5-60.0 [facility] Comment on above: Performed By: #### C BC #### [facility] [address] [place] [address] Dr. Miranda Claudio MANUAL DIFF REQ NO Normal [facility] Comment on above: Performed By: #### C BC #### [facility] [address] [place] [address] Dr. Miranda Claudio MCH (RBC) [Entitic mass] 26.5 pg Critically low 26.7-34.0 [facility] Comment on above: Performed By: #### C BC #### [facility] [address] [place] [address] Dr. Miranda Claudio MCHC (RBC) [Mass/Vol] 33.9 g/dL Normal 29.9-35.2 [facility] Comment on above: Performed By: #### C BC #### [facility] [address] [place] [address] Dr. Miranda Claudio MCV (RBC) [Entitic vol] 78.0 fL Critically low 81.0-99.0 [facility] Comment on above: Performed By: #### C BC #### [facility] [address] [place] [address] Dr. Miranda Claudio MONO # 0.6 103/ul Normal 0.3-0.8 [facility] Comment on above: Performed By: #### C BC #### [facility] [address] [place] [address] Dr. Miranda Claudio Monocytes/100 WBC (Bld) 11.7 % Normal 1.7-12.0 [facility] Comment on above: Performed By: #### C BC #### [facility] [address] [place] [address] Dr. Miranda Claudio NEUT # 3.3 103/ul Normal 1.4-6.5 [facility] Comment on above: Performed By: #### C BC #### [facility] [address] [place] [address] Dr. Miranda Claudio Neutrophils/100 WBC (Bld) 68.9 % Normal 43.0-75.0 [facility] Comment on above: Performed By: #### C BC #### [facility] [address] [place] [address] Dr. Miranda Claudio Platelet mean volume (Bld) [Entitic vol] 8.1 fL Critically low 9.5-13.5 [facility] Comment on above: Performed By: #### C BC #### [facility] [address] [place] [address] Dr. Miranda Claudio PLT 394 103/ul Normal 150-450 [facility] Comment on above: Performed By: #### C BC #### [facility] [address] [place] [address] Dr. Miranda Claudio RBC 4.31 106/ul Normal 4.20-5.40 [facility] Comment on above: Performed By: #### C BC #### [facility] [address] [place] [address] Dr. Miranda Claudio WBC 4.8 103/ul Normal 4.0-11.0 [facility] Comment on above: Performed By: #### C BC #### [facility] [address] [place] [address] Dr. Miranda Claudio PROF 14(COMP METB)on 023 Albumin [Mass/Vol] 2.7 g/dL Critically low 3.4-5.0 [facility] Comment on above: Performed By: #### C MP #### [facility] [address] [place] [address] Dr. Miranda Claudio Albumin/Globulin [Mass ratio] 0.8 {ratio} Normal [facility] Comment on above: Performed By: #### C MP #### [facility] [address] [place] [address] Dr. Miranda Claudio ALP [Catalytic activity/Vol] 64 U/L Normal 46-116 [facility] Comment on above: Performed By: #### C MP #### [facility] [address] [place] [address] Dr. Miranda Claudio ALT [Catalytic activity/Vol] 33 U/L Normal 14-59 [facility] Comment on above: Performed By: #### C MP #### [facility] [address] [place] [address] Dr. Miranda Claudio Anion gap [Moles/Vol] 12.1 mmol/L Normal [facility] Comment on above: Performed By: #### C MP #### [facility] [address] [place] [address] Dr. Miranda Claudio AST [Catalytic activity/Vol] 64 U/L Critically high 15-37 [facility] Comment on above: Performed By: #### C MP #### [facility] [address] [address] [address] Miranda Claudio Bilirubin [Mass/Vol] 0.2 mg/dL Normal 0.2-1.0 [facility] Comment on above: Performed By: #### C MP #### [facility] [address] [address] [address] Miranda Claudio Calcium [Mass/Vol] 7.9 mg/dL Critically low 8.5-10.1 [facility] Comment on above: Performed By: #### C MP #### [facility] [address] [address] [address] Miranda Claudio Chloride [Moles/Vol] 98 mmol/L Normal 98-107 [facility] Comment on above: Performed By: #### C MP #### [facility] [address] [address] [address] Miranda Claudio CO2 [Moles/Vol] 26.7 mmol/L Normal 21.0-32.0 [facility] Comment on above: Performed By: #### C MP #### [facility] [address] [address] [address] Miranda Claudio Creatinine [Mass/Vol] 0.44 mg/dL Critically low 0.55-1.02 [facility] Comment on above: Performed By: #### C MP #### [facility] [address] [address] [address] Miranda Claudio EGFR-AF CROATIAN >60 Normal >=60 [facility] Comment on above: Performed By: #### C MP #### [facility] [address] [place] [address] [address] Miranda Claudio EGFR-NON AF CROATIAN >60 Normal >=60 [facility] Comment on above: Performed By: #### C MP #### [facility] [address] [address] [address] Miranda Claudio Globulin (S) [Mass/Vol] 3.3 g/dL Normal [facility] Comment on above: Performed By: #### C MP #### [facility] [address] [address] [address] Miranda Claudio Glucose [Mass/Vol] 78 mg/dL Normal 74-106 [facility] Comment on above: Performed By: #### C MP #### [facility] [address] [address] [address] Miranda Claudio Potassium [Moles/Vol] 2.8 mmol/L Critically low 3.5-5.1 [facility] Comment on above: Performed By: #### C MP #### [facility] [address] [address] [address] Miranda Claudio Protein [Mass/Vol] 6.0 g/dL Critically low 6.4-8.2 [facility] Comment on above: Performed By: #### C MP #### [facility] [address] [address] [address] Miranda Claudio Sodium [Moles/Vol] 134 mmol/L Critically low 136-145 [facility] Comment on above: Performed By: #### C MP #### [facility] [address] [place] [address] [address] Miranda Claudio Urea nitrogen [Mass/Vol] 4.0 mg/dL Critically low 7.0-18.0 [facility] Comment on above: Performed By: #### C MP #### [facility] [address] [place] [address] [address] Miranda Claudio Urea nitrogen/Creatinine [Mass ratio] 9.1 mg/mg Normal [facility] Comment on above: Performed By: #### C MP #### [facility] [address] [address] [address] Miranda Claudio XR CHEST 1 Von [...] CM RAMIREZ Date: 2022-04-19 07:08 Normal [facility] CARDIAC EMMA ADMITon 022 CK [Catalytic activity/Vol] 412 U/L Critically high 26-192 [facility] Comment on above: Performed By: #### C JESS, CMP ####[facility] [address] [place] [address]DrSofía Claudio CK.MB [Mass/Vol] 19.37 ng/mL Critically high <=3.60 [facility] Comment on above: Performed By: #### C JESS CMP ####[facility] [address] [place] [address]DrSofía Claudio HSTROP 5.9 pg/mL Normal 4.0-51.3 [facility] Comment on above: Result Comment: CUT- OFF POINTS HAVE BEEN ESTABLISHED BASED ON THE FOURTH UNIVERSAL DEFINITIONS OF MYOCARDIAL INFARCTION. THE UPPER REFERENCE LIMIT (URL) OF TROPONIN, DEFINED THE 99TH PERCENTILE OF cTnI DISTRIBUTION IN A REFERENCE POPULATION, HAS BEEN CONFIRMED THE DECISION THRESHOLD FOR VT DIAGNOSIS. Performed By: #### C JESS CMP ####[facility] [address] [place] [address]Dr. Miranda Claudio MARKEL 82 ng/mL Normal 9-82 [facility] Comment on above: Performed By: #### C JESS CMP ####[facility] [address] [place] [address]DrSofía Claudio CBC AUTO DIFFon 03-23-2022 BASO # 0.1 103/ul Normal 0.0-0.1 [facility] Comment on above: Performed By: #### C BC ####[facility] [address] [place] [address]DrSofía Claudio Basophils/100 WBC (Bld) 0.5 % Normal 0.2-2.0 [facility] Comment on above: Performed By: #### C BC ####[facility] [address] [address]DrSofía Claudio EO # 0.5 103/ul Normal 0.0-0.7 [facility] Comment on above: Performed By: #### C BC ####[facility] [address] [address]Dr. Miranda Claudio Eosinophils/100 WBC (Bld) 4.1 % Normal 0.9-7.0 [facility] Comment on above: Performed By: #### C BC ####[facility] [address] [place], [place] [address]Dr. Miranda Claudio Erythrocyte distribution width (RBC) [Ratio] 13.9 % Normal 11.0-15.0 [facility] Comment on above: Performed By: #### C BC ####[facility] [address] [place], [place] [address]Dr. Miranda Claudio Hematocrit (Bld) [Volume fraction] 35.1 % Critically low 36.0-48.0 [facility] Comment on above: Performed By: #### C BC ####[facility] [address] [place], [place] [address]Dr. Miranda Claudio Hemoglobin (Bld) [Mass/Vol] 11.7 g/dL Critically low 12.0-16.0 [facility] Comment on above: Performed By: #### C BC ####[facility] [address] [place], [place] [address]Dr. Miranda Claudio IG # 0.05 10e3/ul Critically high 0.00-0.03 [facility] Comment on above: Performed By: #### C BC ####[facility] [address] [place], [place] [address]Dr. Miranda González IG % 0.4 % Normal 0.0-0.5 [facility] Comment on above: Performed By: #### C BC ####[facility] [address] [place], [place] [address]DrSofía Miranda González LYMPH # 1.5 103/ul Normal 1.2-3.8 [facility] Comment on above: Performed By: #### C BC ####[facility] [address] [place], [place] [address]Dr. Miranda Claudio Lymphocytes/100 WBC (Bld) 12.7 % Critically low 20.5-60.0 [facility] Comment on above: Performed By: #### C BC ####[facility] [address] [address]Dr. Miranda Claudio MANUAL DIFF REQ NO Normal [facility] Comment on above: Performed By: #### C BC ####[facility] [address] [place] [address]Dr. Miranda Claudio MCH (RBC) [Entitic mass] 26.1 pg Critically low 26.7-34.0 [facility] Comment on above: Performed By: #### C BC ####[facility] [address] [place], [place] [address]Dr. Miranda Claudio MCHC (RBC) [Mass/Vol] 33.3 g/dL Normal 29.9-35.2 [facility] Comment on above: Performed By: #### C BC ####[facility] [address] [place], [place] [address]Dr. Miranda Claudio MCV (RBC) [Entitic vol] 78.3 fL Critically low 81.0-99.0 [facility] Comment on above: Performed By: #### C BC ####[facility] [address] [place], [place] [address]Dr. Miranda Claudio MONO # 1.2 103/ul Critically high 0.3-0.8 [facility] Comment on above: Performed By: #### C BC ####[facility] [address] [place], [place] [address]Dr. Miranda Claudio Monocytes/100 WBC (Bld) 10.5 % Normal 1.7-12.0 [facility] Comment on above: Performed By: #### C BC ####[facility] [address] [place], [place] [address]DrSofía Claudio NEUT # 8.3 103/ul Critically high 1.4-6.5 [facility] Comment on above: Performed By: #### C BC ####[facility] [address] [place], [place] [address]Dr. Miranda Claudio Neutrophils/100 WBC (Bld) 71.8 % Normal 43.0-75.0 [facility] Comment on above: Performed By: #### C BC ####[facility] [address] [address]Dr. Miranda Claudio Platelet mean volume (Bld) [Entitic vol] 8.5 fL Critically low 9.5-13.5 [facility] Comment on above: Performed By: #### C BC ####[facility] [address] [address]Dr. Miranda Claudio PLT 349 103/ul Normal 150-450 [facility] Comment on above: Performed By: #### C BC ####[facility] [address] [place] [address]Dr. Miranda Claudio RBC 4.48 106/ul Normal 4.20-5.40 [facility] Comment on above: Performed By: #### C BC ####[facility] [address] [place] [address]Dr. Miranda Claudio WBC 11.6 103/ul Critically high 4.0-11.0 [facility] Comment on above: Performed By: #### C BC ####[facility] [address] [address]Dr. Miranda Claudio Covid-19 PCR (CVDTB)on SARS-CoV-2 (COVID-19) RNA LARY+probe Ql (Unsp spec) Not detected Normal NOT DETECTED [facility] Comment on above: Result Comment: When [...] for this test is supported by the Liner Machine Operator of Health and Human Service's declaration that [...] used). Performed By: #### C VDTB #### [facility] [address] [place] [address] Dr. Miranda Claudio ER URINE PROFILEon 2 Bilirubin Ql (U) Negative Normal NEGATIVE [facility] Comment on above: Performed By: #### E RUR #### [facility] [address] [place] [address] Dr. Miranda Claudio Clarity (U) CLEAR Normal CLEAR [facility] Comment on above: Performed By: #### E RUR #### [facility] [address] [place] [address] Dr. Miranda Claudio Color (U) LT. YELLOW Normal YELLOW [facility] Comment on above: Performed By: #### E RUR #### [facility] [address] [place] [address] Dr. Miranda Claudio ERURAD A micrscopic examination will be performed if indicated. Normal [facility] Comment on above: Performed By: #### E RUR #### [facility] [address] [place] [address] Dr. Miranda Claudio Glucose Ql (U) Negative Normal NEGATIVE [facility] Comment on above: Performed By: #### E RUR #### [facility] [address] [place] [address] Dr. Miranda Claudio Hemoglobin Ql (U) Negative Normal NEGATIVE [facility] Comment on above: Performed By: #### E RUR #### [facility] [address] [place] [address] Dr. Miranda Claudio Ketones Ql (U) Negative Normal NEGATIVE [facility] Comment on above: Performed By: #### E RUR #### [facility] [address] [place] [address] Dr. Miranda Claudio LEUKOCYTES Negative Normal NEGATIVE [facility] Comment on above: Performed By: #### E RUR #### [facility] [address] [place] [address] Dr. Miranda Claudio Nitrite Ql (U) Negative Normal NEGATIVE [facility] Comment on above: Performed By: #### E RUR #### [facility] [address] [place] [address] Dr. Miranda Claudio pH (U) 6.5 [pH] Normal 5-9 [facility] Comment on above: Performed By: #### E RUR #### [facility] [address] [place] [address] Dr. Miranda Claudio SPEC GRAVITY <=1.005 Abnormal 1.005-<=1.025 [facility] Comment on above: Performed By: #### E RUR #### [facility] [address] [place] [address] Dr. Miranda Claudio UA PROTEIN Negative Normal NEGATIVE/ TRACE [facility] Comment on above: Performed By: #### E RUR #### [facility] [address] [place] [address] Dr. Miranda Claudio UR MICRO IND NOT INDICATED Normal [facility] Comment on above: Performed By: #### E RUR #### [facility] [address] [place] [address] Dr. Miranda Claudio Urobilinogen Qn (U) 0.2 {Muriel'U}/dL Normal 0.2 - 1. 0 [facility] Comment on above: Performed By: #### E RUR #### [facility] [address] [place] [address] Dr. Miranda Claudio LACTATE/LACTIC ACIDon 2021 Lactate [Moles/Vol] 0.9 mmol/L Normal 0.4-1.9 [facility] Comment on above: Performed By: #### L ACT #### [facility] [address] [place] [address] Dr. Miranda Claudio PROF 14(COMP METB)on 022 Albumin [Mass/Vol] 3.5 g/dL Normal 3.4-5.0 [facility] Comment on above: Performed By: #### C MADM, CMP #### [facility] [address] [address] [address] Miranda Claudio Albumin/Globulin [Mass ratio] 1.0 {ratio} Normal [facility] Comment on above: Performed By: #### C MADM, CMP #### [facility] [address] [address] [address] Miranda Claudio ALP [Catalytic activity/Vol] 73 U/L Normal 46-116 [facility] Comment on above: Performed By: #### C MADM, CMP #### [facility] [address] [address] [address] Miranda Claudio ALT [Catalytic activity/Vol] 16 U/L Normal 14-59 [facility] Comment on above: Performed By: #### C JASWINDERM, CMP #### [facility] [address] [address] [address] Miranda Claudio Anion gap [Moles/Vol] 14.4 mmol/L Normal [facility] Comment on above: Performed By: #### C JASWINDERM, CMP #### [facility] [address] [address] [address] Miranda Claudio AST [Catalytic activity/Vol] 26 U/L Normal 15-37 [facility] Comment on above: Performed By: #### C JASWINDERM, CMP #### [facility] [address] [address] [address] Miranda Claudio Bilirubin [Mass/Vol] 0.2 mg/dL Normal 0.2-1.0 [facility] Comment on above: Performed By: #### C JASWINDERM, CMP #### [facility] [address] [address] [address] Miranda Claudio Calcium [Mass/Vol] 8.3 mg/dL Critically low 8.5-10.1 [facility] Comment on above: Performed By: #### C MADM, CMP #### [facility] [address] [place] [address] [address] Miranda Claudio Chloride [Moles/Vol] 93 mmol/L Critically low 98-107 [facility] Comment on above: Performed By: #### C JASWINDERM, CMP #### [facility] [address] [address] [address] Miranda Claudio CO2 [Moles/Vol] 23.5 mmol/L Normal 21.0-32.0 [facility] Comment on above: Performed By: #### C MADM, CMP #### [facility] [address] [address] [address] Miranda Claudio Creatinine [Mass/Vol] 0.54 mg/dL Critically low 0.55-1.02 [facility] Comment on above: Performed By: #### C MADM, CMP #### [facility] [address] [address] [address] Miranda Claudio EGFR-AF CROATIAN >60 Normal >=60 [facility] Comment on above: Performed By: #### C MADM, CMP #### [facility] [address] [address] [address] Miranda Claudio EGFR-NON AF CROATIAN >60 Normal >=60 [facility] Comment on above: Performed By: #### C MADM, CMP #### [facility] [address] [address] [address] Miranda Claudio Globulin (S) [Mass/Vol] 3.6 g/dL Normal [facility] Comment on above: Performed By: #### C MADM, CMP #### [facility] [address] [address] [address] Miranda Claudio Glucose [Mass/Vol] 91 mg/dL Normal 74-[address] [facility] Comment on above: Performed By: #### C MADM, CMP #### [facility] [address] [address] [address] Miranda Clauido Potassium [Moles/Vol] 3.9 mmol/L Normal 3.5-5.1 [facility] Comment on above: Performed By: #### C MADM, CMP #### [facility] [address] [address] [address] Miranda Claudio Protein [Mass/Vol] 7.1 g/dL Normal 6.4-8.[address] [facility] Comment on above: Performed By: #### C JASWINDERM, CMP #### [facility] [address] [place], [place] [address] Dr. Miranda Claudio Sodium [Moles/Vol] 127 mmol/L Critically low 136-145 Th [facility] Comment on above: Performed By: #### C JASWINDERM, CMP #### [facility] [address] [place], [place] [address] Dr. Miranda Claudio Urea nitrogen [Mass/Vol] 8.0 mg/dL Normal 7.0-18.0 [facility] Comment on above: Performed By: #### C JASWINDERM, CMP #### [facility] [address] [place], [place] [address] Dr. Miranda Claudio Urea nitrogen/Creatinine [Mass ratio] 14.8 mg/mg Normal [facility] Comment on above: Performed By: #### C JESS, CMP #### [facility] [address] [place], [place] [address] Dr. Miranda Claudio TYPE AND SCREENon 03-23-2022 TYPE AND SCREEN Negative Normal [facility] Comment on above: Performed By: #### T NS ####[facility] [address] [place], [place] [address]EzDr. Miranda Claudio NM HEPATOBILIARY SCAN W EFon [...] MESHA CARRASCO Date: 2022-02-23 11:03 Normal [facility] XR shoulder RT min 2V*on XR shoulder RT min 2V* [facility] [place] [address] [place] [address] XRay Report Signed Patient: Melanie Espinoza MR#: [id number] 6 : 1955 Acct:[id number] Age/Sex: 66 / F ADM Date: 01/29/22 Loc: [facility] Room: Type: [facility] Attending Dr: Stevenson Corbin MD Copies [...] Ligia Carrasquillo M.D.01/29/2022 2:27 PM Dictation Location: [place] [address] Transcribed By: [facility] 01/29/221426 Dictated By: Ligia Carrasquillo MD 01/29/221424 Signed By: 01/29/22 142 [facility] CBC AUTO DIFFon 01-27-2022 BASO # 0.1 103/ul Normal 0.0-0.1 [facility] Comment on above: Performed By: #### C BC #### [facility] [address] [address] [address] Miarnda Claudio Basophils/100 WBC (Bld) 0.7 % Normal 0.2-2.0 [facility] Comment on above: Performed By: #### C BC #### [facility] [address] [address] [address] Miranda Claudio EO # 0.4 103/ul Normal 0.0-0.7 [facility] Comment on above: Performed By: #### C BC #### [facility] [address] [place] [address] Dr. Miranda Claudio Eosinophils/100 WBC (Bld) 4.0 % Normal 0.9-7.0 [facility] Comment on above: Performed By: #### C BC #### [facility] [address] [place] [address] Dr. Miranda Claudio Erythrocyte distribution width (RBC) [Ratio] 14.2 % Normal 11.0-15.0 [facility] Comment on above: Performed By: #### C BC #### [facility] [address] [place] [address] Dr. Miranda Claudio Hematocrit (Bld) [Volume fraction] 39.9 % Normal 36.0-48.0 [facility] Comment on above: Performed By: #### C BC #### [facility] [address] [place] [address] Dr. Miranda Claudio Hemoglobin (Bld) [Mass/Vol] 13.0 g/dL Normal 12.0-16.0 [facility] Comment on above: Performed By: #### C BC #### [facility] [address] [place] [address] Dr. Miranda Claudio IG # 0.03 10e3/ul Normal 0.00-0.03 [facility] Comment on above: Performed By: #### C BC #### [facility] [address] [place] [address] Dr. Miranda Claudio IG % 0.3 % Normal 0.0-0.5 [facility] Comment on above: Performed By: #### C BC #### [facility] [address] [place] [address] Dr. Miranda Claudio LYMPH # 2.2 103/ul Normal 1.2-3.8 [facility] Comment on above: Performed By: #### C BC #### [facility] [address] [place] [address] Dr. Miranda Claudio Lymphocytes/100 WBC (Bld) 23.6 % Normal 20.5-60.0 [facility] Comment on above: Performed By: #### C BC #### [facility] [address] [place] [address] Dr. Miranda Claudio MANUAL DIFF REQ NO Normal [facility] Comment on above: Performed By: #### C BC #### [facility] [address] [place] [address] Dr. Miranda Claudio MCH (RBC) [Entitic mass] 27.1 pg Normal 26.7-34.0 [facility] Comment on above: Performed By: #### C BC #### [facility] [address] [place] [address] Dr. Miranda Claudio MCHC (RBC) [Mass/Vol] 32.6 g/dL Normal 29.9-35.2 [facility] Comment on above: Performed By: #### C BC #### [facility] [address] [place] [address] Dr. Miranda Claudio MCV (RBC) [Entitic vol] 83.1 fL Normal 81.0-99.0 [facility] Comment on above: Performed By: #### C BC #### [facility] [address] [place] [address] Dr. Miranda Claudio MONO # 0.8 103/ul Normal 0.3-0.8 [facility] Comment on above: Performed By: #### C BC #### [facility] [address] [place] [address] Dr. Miranda Claudio Monocytes/100 WBC (Bld) 8.5 % Normal 1.7-12.0 [facility] Comment on above: Performed By: #### C BC #### [facility] [address] [place] [address] Dr. Miranda Claudio NEUT # 5.9 103/ul Normal 1.4-6.5 [facility] Comment on above: Performed By: #### C BC #### [facility] [address] [place] [address] Dr. Miranda Claudio Neutrophils/100 WBC (Bld) 62.9 % Normal 43.0-75.0 [facility] Comment on above: Performed By: #### C BC #### [facility] [address] [address] [address] Miranda Claudio Platelet mean volume (Bld) [Entitic vol] 7.6 fL Critically low 9.5-13.5 [facility] Comment on above: Performed By: #### C BC #### [facility] [address] [address] [address] Miranda Claudio PLT 405 103/ul Normal 150-450 [facility] Comment on above: Performed By: #### C BC #### [facility] [address] [place] [address] [address] Miranda Claudio RBC 4.80 106/ul Normal 4.20-5.40 [facility] Comment on above: Performed By: #### C BC #### [facility] [address] [place] [address] [address] Miranda Claudio WBC 9.4 103/ul Normal 4.0-11.0 [facility] Comment on above: Performed By: #### C BC #### [facility] [address] [address] [address] Miranda Claudio ER URINE PROFILEon 2 Bilirubin Ql (U) Negative Normal NEGATIVE [facility] Comment on above: Performed By: #### U MICRO, ERUR ####[facility] [address] [place] [address]DrSofía Claudio Clarity (U) CLEAR Normal CLEAR [facility] Comment on above: Performed By: #### U MICRO, ERUR ####[facility] [address] [place] [address]DrSofía Claudio Color (U) LT. YELLOW Normal YELLOW [facility] Comment on above: Performed By: #### U MICRO, ERUR ####[facility] [address] [place] [address]DrSofía GARDUNOAHD A micrscopic examination will be performed if indicated. Normal [facility] Comment on above: Performed By: #### U MICRO, ERUR ####[facility] [address] [place] [address]DrSofía Claudio Glucose Ql (U) Negative Normal NEGATIVE [facility] Comment on above: Performed By: #### U MICRO, ERUR ####[facility] [address] [place] [address]Dr. Miranda Claudio Hemoglobin Ql (U) TRACE-LYSED Abnormal NEGATIVE [facility] Comment on above: Performed By: #### U MICRO, ERUR ####[facility] [address] [place] [address]Dr. Miranda Claudio Ketones Ql (U) Negative Normal NEGATIVE [facility] Comment on above: Performed By: #### U MICRO, ERUR ####[facility] [address] [place], [place] [address]Dr. Miranda Claudio LEUKOCYTES Negative Normal NEGATIVE [facility] Comment on above: Performed By: #### U MICRO, ERUR ####[facility] [address] [place], [place] [address]Dr. Miranda Claudio Nitrite Ql (U) Negative Normal NEGATIVE [facility] Comment on above: Performed By: #### U MICRO, ERUR ####[facility] [address] [place], [place] [address]Dr. Miranda Claudio pH (U) 7.0 [pH] Normal 5-9 [facility] Comment on above: Performed By: #### U MICRO, ERUR ####[facility] [address] [place], [place] [address]Dr. Miranda Claudio SPEC GRAVITY <=1.005 Abnormal 1.005-<=1.025 [facility] Comment on above: Performed By: #### U MICRO, ERUR ####[facility] [address] [place], [place] [address]Dr. Miranda Claudio UA PROTEIN Negative Normal NEGATIVE/ TRACE [facility] Comment on above: Performed By: #### U MICRO, ERUR ####[facility] [address] [place], [place] [address]Dr. Miranda Claudio UR MICRO IND INDICATED Normal [facility] Comment on above: Performed By: #### U MICRO, ERUR ####[facility] [address] [place], [place] [address]Dr. Miranda Claudio Urobilinogen Qn (U) 0.2 {Muriel'U}/dL Normal 0.2 - 1. 0 [facility] Comment on above: Performed By: #### U MICRO, ERUR ####[facility] [address] [place] [address]Dr. Miranda Claudio PROF 14(COMP METB)on 01-27- 022 Albumin [Mass/Vol] 3.5 g/dL Normal 3.4-5.0 [facility] Comment on above: Performed By: #### C MP #### [facility] [address] [address] [address] Miranda Claudio Albumin/Globulin [Mass ratio] 1.0 {ratio} Normal [facility] Comment on above: Performed By: #### C MP #### [facility] [address] [place] [address] Dr. Miranda Claudio ALP [Catalytic activity/Vol] 66 U/L Normal 46-116 [facility] Comment on above: Performed By: #### C MP #### [facility] [address] [address] [address] Miranda Claudio ALT [Catalytic activity/Vol] 15 U/L Normal 14-59 [facility] Comment on above: Performed By: #### C MP #### [facility] [address] [address] [address] Miranda Claudio Anion gap [Moles/Vol] 7.1 mmol/L Normal [facility] Comment on above: Performed By: #### C MP #### [facility] [address] [address] [address] Miranda Claudio AST [Catalytic activity/Vol] 16 U/L Normal 15-37 [facility] Comment on above: Performed By: #### C MP #### [facility] [address] [address] [address] Miranda Claudio Bilirubin [Mass/Vol] 0.1 mg/dL Critically low 0.2-1.0 [facility] Comment on above: Performed By: #### C MP #### [facility] [address] [address] [address] Miranda Claudio Calcium [Mass/Vol] 9.1 mg/dL Normal 8.5-10.[address] [facility] Comment on above: Performed By: #### C MP #### [facility] [address] [place] [address] Dr. Miranda Claudio Chloride [Moles/Vol] 100 mmol/L Normal 98-107 [facility] Comment on above: Performed By: #### C MP #### [facility] [address] [address] [address] Miranda Claudio CO2 [Moles/Vol] 30.7 mmol/L Normal 21.0-32.0 [facility] Comment on above: Performed By: #### C MP #### [facility] [address] [place] [address] Dr. Miranda Claudio Creatinine [Mass/Vol] 0.64 mg/dL Normal 0.55-1.02 [facility] Comment on above: Performed By: #### C MP #### [facility] [address] [place] [address] Dr. Miranda Claudio EGFR-AF CROATIAN >60 Normal >=60 [facility] Comment on above: Performed By: #### C MP #### [facility] [address] [place] [address] Dr. Miranda Claudio EGFR-NON AF CROATIAN >60 Normal >=60 [facility] Comment on above: Performed By: #### C MP #### [facility] [address] [place] [address] Dr. Miranda Claudio Globulin (S) [Mass/Vol] 3.6 g/dL Normal [facility] Comment on above: Performed By: #### C MP #### [facility] [address] [address] [address] Miranda Claudio Glucose [Mass/Vol] 68 mg/dL Critically low 74-106 Th [facility] Comment on above: Performed By: #### C MP #### [facility] [address] [place] [address] Dr. Miranda Claudio Potassium [Moles/Vol] 3.8 mmol/L Normal 3.5-5.1 [facility] Comment on above: Performed By: #### C MP #### [facility] [address] [place] [address] [address] Miranda Claudio Protein [Mass/Vol] 7.1 g/dL Normal 6.4-8.[address] [facility] Comment on above: Performed By: #### C MP #### [facility] [address] [place] [address] [address] Miranda Claudio Sodium [Moles/Vol] 134 mmol/L Critically low 136-145 Th [facility] Comment on above: Performed By: #### C MP #### [facility] [address] [place] [address] [address] Miranda Claudio Urea nitrogen [Mass/Vol] 14.0 mg/dL Normal 7.0-18.0 [facility] Comment on above: Performed By: #### C MP #### [facility] [address] [place] [address] [address] Miranda Claudio Urea nitrogen/Creatinine [Mass ratio] 21.9 mg/mg Normal [facility] Comment on above: Performed By: #### C MP #### [facility] [address] [place] [address] [address] Miranda Claudio URINE MICROSCOPIC ONLYon BACTERIA NONE SEEN Normal NONE SEEN [facility] Comment on above: Performed By: #### U MICRO, ERUR ####[facility] [address] [place] [address]DrSofía Claudio Bacteria identified Cx Nom (U) NOT INDICATED Normal [facility] Comment on above: Performed By: #### U MICRO, ERUR ####[facility] [address] [place] [id number] Claudio CAST NONE SEEN Normal NONE SEEN [facility] Comment on above: Performed By: #### U MICRO, ERUR ####[facility] [address] [place] [id number] Claudio Crystals LM Nom (Urine sed) NONE SEEN Normal NONE SEEN [facility] Comment on above: Performed By: #### U MICRO, ERUR ####[facility] [address] [place], [place] [address]Bg. Miranda Claudio Epithelial cells LM Ql (Urine sed) NONE SEEN Normal NONE SEEN /RARE [facility] Comment on above: Performed By: #### U MICRO, ERUR ####[facility] [address] [place], [place] [address]Aw. Miranda Claudio MUCOUS SMALL Abnormal NONE SEEN [facility] Comment on above: Performed By: #### U MICRO, ERUR ####[facility] [address] [place], [place] [address]Vo. Miranda Claudio RBC 0-2 Normal 0-2 [facility] Comment on above: Performed By: #### U MICRO, ERUR ####[facility] [address] [place] [id number]. Miranda Claudio WBC NONE SEEN Normal NONE SEEN [facility] Comment on above: Performed By: #### U MICRO, ERUR ####[facility] [address] [place] [id number]. Miranda Claudio XR CHEST 1 Von 01-27-2022 [...] CM ROBLES Date: 2022-01-27 20:30 Normal [facility] XR SHOULDER RT 2V or >on XR SHOULDER RT 2V or > IMAGES REVIEWED: XR SHOULDER RT 2V or > COMPARISON: 12/27/2021. CLINICAL INDICATION: Pain FINDINGS/IMPRESSION: 1. No evidence of acute osseous abnormality of the right shoulder. 2. 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 3. Old right rib fractures. 4. Osteopenia. Electronically authenticated by: SARAH MOMIN Date: 2022-01-27 20:42 Normal [facility] XR SCAPULA RTon 12-27-2021 XR SCAPULA [...] by: SANTIAGO HELMS Date: 2021-12-27 12:55 Normal [facility] XR shoulder RT min 2V*on XR shoulder RT min 2V* [facility] Main [place] [id number] XRay Report Signed Patient: Melanie Espinoza MR#: [id number] 6 : 1955 Acct:[id number] Age/Sex: 66 / F ADM Date: 12/04/21 Loc: [facility] Room: Type: [facility] Attending Dr: Stevenson Corbin MD Copies [...] Erick Carranza M.D.12/04/2021 2:33 PM Dictation Location: [place] [address] Transcribed By: [facility] 12/04/21 1433 Dictated By: Erick Carranza DO 12/04/21 1426 Signed By: 12/04/21 1433 Normal [facility] XR shoulder RT min 2V*on XR shoulder RT min 2V* [facility] Main [address] [address] XRay Report Signed Patient: Melanie Espinoza MR#: [id number] 6 : 1955 Acct:[id number] Age/Sex: 66 / F ADM Date: 10/26/21 Loc: [facility] Room: Type: [facility] Attending Dr: Stevenson Corbin MD Copies [...] Taylor Jr., D.O.10/26/2021 10:32 AM Dictation Location: [place] [address] Transcribed By: [facility] 10/26/21 1032 Dictated By: Tai Taylor Jr, DO 10/26/21 1031 Signed By: 10/26/21 1032 Normal [facility] XR shoulder RT min 2V*on XR shoulder RT min 2V* [facility] [address] [place] [address] [place] [address] XRay Report Signed Patient: Melanie Espinoza MR#: [id number] 6 : 1955 Acct:[id number] Age/Sex: 66 / F ADM Date: 10/18/21 Loc: [place] Room: Type: [facility] Attending Dr: Stevenson Corbin MD Copies to: [...] Ligia Carrasquillo M.D.10/18/2021 11:42 AM Dictation Location: [place] [address] Transcribed By: [facility] 10/18/21 1142 Dictated By: Ligia Carrasquillo MD 10/18/21 1139 Signed By: 10/18/21 1142 Normal [facility] COVID-19 FRMCon 10-13-2021 SARS-CoV-2 (COVID-19) RNA LARY+probe Ql (Unsp spec) Negative Normal Negative [facility] Comment on above: Order Comment: Healt hcare Worker?: N Result Comment: Testing for SARS-CoV-2 by RT-PCR This test was developed and its performance characteristics determined by [employer] and validated at the [facility]. This test has not been FDA [...] is terminated or revoked sooner. PERFORMED BY: [place] [address] PATHOLOGIST CROP ROLLER TAYA CRESPO M.D. Performed By: #### C OVID 19 [facility] #### [address] COVID-19 Positive/NegativeOr dered By: Stevenson Corbin on 10-13-2021 SARS-CoV-2 (COVID-19) N gene LARY+probe Ql (Resp) Negative Negative [facility] Comment on above: Testing for SARS-CoV -2 by RT-PCR This test was developed and its performance characteristics determined by [employer] and validated at the [facility]. This test has not been FDA [...] No falls within the last year [facility] [address] DO Work Phone: Tobacco use status [facility] b) No [facility] 250 DO Work Phone: PHQ-2 VITALS Yes [facility] DO Work Phone: [facility]-19 [facility] SARS-CoV-2 (COVID-19) RNA LARY+probe Ql (Unsp spec) Negative Normal Negative [facility] Comment on above: Order Comment: Healt hcare Worker?: N Result Comment: Testing for SARS-CoV-2 by RT-PCR This test was developed and its performance characteristics determined by [employer] and validated at the [facility]. This test has not been FDA [...] is terminated or revoked sooner. PERFORMED BY: [place] [address] PATHOLOGIST CROP ROLLER TAYA CRESPO M.D. Performed By: #### C OVID 19 [facility] #### [address] COVID-19 Positive/NegativeOr dered By: Stevenson Corbin on 09-18-2021 SARS-CoV-2 (COVID-19) N gene LARY+probe Ql (Resp) Negative Negative [facility] Comment on above: Testing for SARS-CoV -2 by RT-PCR This test was developed and its performance characteristics determined by [employer] and validated at the [facility]. This test has not been FDA [...] JEFE SAEED Date: 2021-08-22 02:25 Normal [facility] HIP LEFT 1 OR 2 VWS WITH PEL VISon 01-26-2021 HIP LEFT 1 OR 2 VWS WITH PELVIS [facility] Department of Radiology [address] [place] [id number] Patient Name: MELANIE ESPINOZA : 1955 Sex: F Age: Race: White Pt. Location: Patient Status: D Ordered Date: 01/26/2021 1:55:00 PM Completed Date: 01/26/2021 02:00 PM Requesting Provider: HERVE STARKEY Attending Provider: HERVE STARKEY Report Copy To: Signs & Symptoms: S72.002A Fracture of unsp part of neck of left femur, init I10 History: [place] Comments: Evaluate Exam: HIP LEFT 1 OR [...] Approved by:Oriana Romero 10:52 AM. I, Marisela Revelse,have reviewed the image(s) and agree with the findings in this report. Electronically signed: Marisela Reveles. Transcribed by: [email or web address], User Resident: ORIANA REILLY Electronically Signed by: MARISELA REVELES @ 01/27/2021 12:26 PM I personally read this/these film(s) with this resident Normal The [facility] Comment on above: Order Comment: Evalu ate HIP LEFT 1 OR 2 VWS WITH PEL VISon 09-15-2020 HIP LEFT 1 OR 2 VWS WITH PELVIS [facility] Department of Radiology [address] [place] [phone] Patient Name: MELANIE ESPINOZA : 1955 [...] Electronically signed: Jose Armando Kwon. Transcribed by: [email or web address], User Resident: Electronically Signed by: JOSE ARMANDO KWON @ 09/15/2020 08:28 PM [place] [facility] Comment on above: Order Comment: evalu ate RAD - Ultrasound Reporton RAD - Ultrasound Report [id number] .00CD:127 Normal [facility] Ambulatory Clinical Summaryo n 08-30-2020 Ambulatory Clinical Summary {[id number]}CD:[id number] Normal [facility] Patient Educationon 08-31-19 Patient Education Urology Hydronephrosis [...] Follow these instructions at home: ? Take iueo-fnc-aotxktf and prescription medicines only as told by [...] 01/27/2008 Document Revised: 04/12/2018 Document Reviewed: 04/12/2018 [employer] Patient Education ? 2019 Kanjoya. Normal [facility] Urology Office/Clinic Noteon 08-30-2020 Urology Office/Clinic Note [...] Urnls Dip Stick Auto w/o Microscopy POC 82595 I have reviewed the previous health record information and history for this patient from Dr. Go Follow-up With When Contact Information Donavan Bailey MD, Justin Massey, URO Only if needed [facility] [address], [place] [address]- Additional Instructions: Patient Education Hydronephrosis I, Marion Gibson, personally scribed for Dr. Go on 08/30/2020 12:35:58. . Documentation recorded by the scribe, Marion Gibson, accurately reflects the services(s) I performed and decisions made by me. Authenticated by Dr. oG on 08/30/2020 13:04:12. Problem List/Past Medical History [...] 80 mg= 1 (more content not included)... [facility] Comment on above: Result Comment: Elec tronically Signed By: Donavan Bailey MD, Justin Massey\.br\Date and Time Signed: 08/30/20 13:04 EDT\.br\Electronically Co-Signed By: Marion Gibson MA\.br\Date and Time Co-Signed: 08/30/20 12:36 EDT Reminderson 08-22-2020 Reminders - From: Edilma Godoy To: EU - Clinical; Sent: 08/09/2020 11:42:24 EDT Show up: 08/21/2020 11:42:00 EDT Subject: renal US Reminder/Recall scheduled 08/19/20 at [facility]. patient has f/u scheduled 08/30 for results results scanned in today [facility] Ambulatory Clinical Summaryo n 08-09-2020 Ambulatory Clinical Summary {[id number]}CD:[id number] [facility] Formson 08-09-2020 Forms [id number] .00CD:127 [facility] Patient Educationon 08-09-20 21 Patient Education Urology [...] Follow these instructions at home: ? Take tolp-fvi-clgmcir and prescription medicines only as told by [...] 01/27/2008 Document Revised: 04/12/2018 Document Reviewed: 04/12/2018 [employer]SB SPINE Patient Education ? 2019 Kanjoya. Normal [facility] Urology Office/Clinic Noteon 08-09-2020 Urology Office/Clinic Note Chief Complaint New patient here for left sided hydronephrosis HPI Staff New patient Melanie is a 65 y.o. female referred by [facility] ER for mild to moderate left [...] Urnls Dip Stick Auto w/o Microscopy POC 65104 US Renal Follow-up With When Contact Information Donavan Bailey MD, Justin Massey, URO [facility] [address], [place] [address]- Additional Instructions: after renal u/s Patient Education Hydronephrosis INadiya personally scribed for Dr. Go on 08/09/2020 11:07:27. . Documentation recorded by the scribe, Nadiya rFeed, accurately reflects the services(s) I performed and [...] (at bedtime) (more content not included)... Normal [facility] Comment on above: Result Comment: Elec tronically Signed By: Donavan Bailey MD, Justin Massey\.br\Date and Time Signed: 08/09/20 11:18 EDT\.br\Electronically Co-Signed By: Nadiya Freed MA\.br\Date and Time Co-Signed: 08/09/20 11:07 EDT RAD - CT Reporton 07-12-2020 RAD - CT Report [id number]. 00CD:127 [facility] Consultation Noteon 07-02-19 Consultation Note [id number] .00CD:127 [facility] HIP LEFT 1 OR 2 VWS WITH PEL VISon 06-16-2020 HIP LEFT 1 OR 2 VWS WITH PELVIS [facility] Department of Radiology [address] [place] [phone] Patient Name: MELANIE ESPINOZA : 1955 [...] complication Electronically signed: Willow Stapleton. Transcribed by: [email or web address], User Resident: Electronically Signed by: WILLOW STAPLETON @ 06/17/2020 08:01 AM Normal [facility] Comment on above: Order Comment: Views (X-RAY, HIP): AP Hip, Frogleg Lateral Hip HIP LEFT 1 OR 2 VWS WITH PEL VISon 2020 HIP LEFT 1 OR 2 VWS WITH PELVIS [facility] Department of Radiology [address] [place] [phone] Patient Name: MELANIE ESPINOZA : 1955 Sex: F Age: Race: White Pt. Location: Patient Status: O Ordered Date: 2020 1:25:00 PM Completed Date: 2020 01:30 PM Requesting Provider: HERVE STARKEY Attending Provider: HERVE STARKEY Report Copy To: Signs & Symptoms: M25.552 Pain in left hip I10 History: [place] Comments: Exam: HIP LEFT 1 OR 2 [...] impaction. Electronically signed: Deion Hernandez. Transcribed by: [email or web address], User Resident: Electronically Signed by: DEION HERNANDEZ @ 2020 04:11 PM Normal [facility] HIP LEFT 1 OR 2 VWS WITH PEL VISon 04-14-2020 HIP LEFT 1 OR 2 VWS WITH PELVIS [facility] Department of Radiology [address] [place] [phone] Patient Name: MELANIE ESPINOZA : 1955 Sex: F Age: Race: White Pt. Location: 84 Patient Status: O Ordered Date: 04/14/2020 9:20:00 AM Completed Date: 04/14/2020 09:27 AM Requesting Provider: HERVE STARKEY Attending Provider: HERVE STARKEY Report Copy To: Signs & Symptoms: M25.552 Pain in left hip I10 History: [place] Comments: Evaluate Exam: HIP LEFT 1 OR [...] fracture. Electronically signed: Antonio Bernal. Transcribed by: [email or web address], User Resident: Electronically Signed by: ANTONIO BERNAL @ 04/14/2020 10:04 AM Normal [facility] Comment on above: Order Comment: Evalu ate Coding Summaryon 01-13-2020 Coding Summary CODING DATE: 01/13/2020 [facility] STATUS: Home PAYOR: Medicaid HMO ADMIT [...] Nikhil Zamudio Date Saved: 01/13/2020 06:25 pm [facility] Coding Summary CODING DATE: 01/13/2020 [facility] STATUS: Home PAYOR: Medicaid HMO ADMIT [...] Nikhil Zamudio Date Saved: 01/13/2020 06:24 pm [facility] Coding Summary CODING DATE: 01/13/2020 FINAL [facility] STATUS: Home PAYOR: Medicaid HMO ADMIT [...] Nikhil Zamudio Date Saved: 01/13/2020 06:24 pm [facility] ED Clinical Summaryon 2019 ED Clinical Summary [facility] Emergency Department [address] [place] [address] ED Clinical Summary PERSON INFORMATION Name: MELANIE ESPINOZA Age: 64 Years Sex: FEMALE : 1955 MRN: Acct#: Visit Reason: Hernia; ABD PAIN Arrival: 01/09/2020 15:42:54 Discharge: 01/09/2020 16:20:00 LOS: 000 00:38 Check In: 01/09/2020 15:42:54 Checkout:01/09/2020 16:20:00 Address: [place] [address] PCP: ESTEBAN GARZA PROVIDER INFORMATION Provider Role [...] Hernia Follow-Up: With: Address: When: Calvin Aguilar [address] [place] [address], [address] [place] [id number] Business (1) Within 2 to 4 days [...] kimberly verbalizes understanding of instructions given Comment: [facility] ED Note - Physicianon 2019 ED Note [...] documented in chart. Surgical history: Esophagogastroduodeno scopy ([id number]) on 01/17/2018 at 62 Years., Reviewed as [...] Impression and Plan Diagnosis Incarcerated ventral hernia (DVO34-FC K43.6, Discharge, Medical) Ventral hernia (GKW13-QP K43.9, Discharge, Medical) Plan Condition: Improved, Stable. [...] on: 01/12/2020 15:09 EDT] Wade Hassan MD [facility] ED Note-Nursingon 01-09-2020 ED Note-Nursing Pt presents to the E D with a hernia. Pt states increased pain in that area. [facility] ED Patient Education Noteon 01-09-2020 ED Patient [...] increase pressure on your hernia. ? Take acgv-jws-bdtpykc and prescription medicines only as told by [...] 03/18/2013 Document Revised: 05/14/2018 Document Reviewed: 10/21/2017 [employer]SB SPINE Patient Education ? 2019 Kanjoya. Normal [facility] ED Patient Summaryon 020 ED Patient Summary [facility] - Emergency Department [address] [place], [place] [id number] PATIENT DISCHARGE INSTRUCTIONS Patient Information Name: MELANIE ESPINOZA Age: 64 Years Date of : 1955 Reason For Visit: Hernia; ABD PAIN Arrival Time: 01/09/2020 15:42:54 Primary Care Physician: ESTEBAN GARZA Attending Physician: Wade Hassan MD Comment: Visit Diagnosis: Diagnoses This Visit Hernia ([id number]) Incarcerated ventral hernia (K43.6) Ventral hernia (K43.9) Prescription Information: If you have been given a prescription for narcotics, seek immediate medical attention if you have any difficulty breathing or any sudden status changes such as confusion and sleepiness. If you or anyone you know is experiencing suicidal thoughts, mental health, alcohol and/or drug addiction problems; contact the [facility] 05/11 Crisis Hotline -Text 2SKVS to 973359. If you received any narcotics, sedation, or [...] legal documents With: Address: When: Calvin Aguilar [address] [place] [address], [place] [address] Business (1) Within 2 to 4 days [...] and treatment you received today in the [facility] Emergency Department were for an urgent problem and are not intended as complete care. It is important for you to follow up with a doctor, nurse practitioner, or physician?s certified physician assistant for ongoing care. If your symptoms [...] so we can reach you if necessary. [facility] Emergency Department has provided you with a complete list of medications post discharge. Please inform your codifier/provider of your visit and for further instruction [...] increase pressure on your hernia. ? Take uast-mea-cmzekvf and prescription medicines only as told by [...] 03/18/2013 Document Revised: 05/14/2018 Document Reviewed: 10/21/2017 [employer] Patient Education ? 2020 Elsevier Inc. Viruses [...] for Disease Control and Prevention December 2013 [facility] Coding Summaryon 09-24-2019 Coding Summary CODING DATE: 09/24/2019 [facility] STATUS: Home PAYOR: Medicaid HMO ADMIT [...] Carine Ferraro Date Saved: 09/24/2019 03:29 pm [facility] .Thyroglobulin by SKYLAR LCon 0 09-23-2019 Thyroglobulin by SKYLAR LC 13.6 ng/mL 1.5-38.5 [facility] Comment on above: Result Comment: According [...] is 0.1 ng/mL Thyroglobulin measured by Fina [employer] Immunometric Assay Performed At: [facility] [id number] Bebo Jeter PhD Ph:[phone] Performed By: #### 2 [id number], [id number], [id number], [id number], [id number], [id number] ####[facility] (DEFAULT)[address] [place] [address] Provider Orderson 09-23-2019 Provider Orders [id number] .[id number] Normal [facility] T3 Free LCon 09-23-2019 Triiodothyronine,Fr ee,Serum LC 2.0 pg/mL 2.0-4.4 [facility] Comment on above: Result Comment: Perf ormed At: [facility] [id number] [place], [place] [id number] Bebo Jeter PhD Ph:[phone] Performed By: #### 2 [id number], [id number], [id number], [id number], [id number], [id number] #### [facility] (DEFAULT) [address] [place] [address] Thyroglobulin Reflex Profile LCon 09-23-2019 Thyroglobulin Antibody LC <1.0 0.0-0.9 [facility] Comment on above: Result Comment: Thyr oglobulin Antibody measured by [employer] Performed At: [facility] [address] [place], [place] [id number] Bebo Jeter PhD Ph:[phone] Performed By: #### 2 [id number], [id number], [id number], [id number], [id number], [id number] ####[facility] (DEFAULT)[address] [place] [address] Thyroid Peroxidase (TPO) Ab LCon 09-23-2019 Thyroid Peroxidase (TPO) Ab LC <9 0-34 [facility] Comment on above: Result Comment: Perf ormed At: [facility] [address] [place], [place] [id number] Bebo Jeter PhD Ph:[phone] Performed By: #### 2 [id number], [id number], [id number], [id number], [id number], [id number] #### [facility] (DEFAULT) [address] [place] [address] Free T4on 09-22-2019 Free T4 [Mass/Vol] 0.90 ng/dL Normal 0.61-1.12 [facility] Comment on above: Result Comment: Spec imens that contain high levels of Biotin may cause false high results Performed By: #### 2 021973, [id number], [id number], [id number], [id number], [id number] #### [facility] (DEFAULT) [address] [place] [address] TSHon 09-22-2019 TSH Qn 2.07 mcIU/mL Normal 0.45-5.33 [facility] Comment on above: Result Comment: Gene ral Population (males and non- females, aged 21-88) 0.45 - 5.33 Females, 1st Trimester 0.05 - 3.70 Females, 2nd Trimester 0.31 - 4.35 Females, 3rd Trimester 0.41 - 5.18 Performed By: #### 2 [id number], [id number], [id number], [id number], [id number], [id number] #### [facility] (DEFAULT) [address] [place] [address] Coding Summaryon 06-18-2019 Coding Summary CODING DATE: 06/18/2019 FINAL [facility] STATUS: Home PAYOR: Medicaid HMO ADMIT [...] Ferraro Date Saved: 06/18/2019 01:32 pm Normal [facility] US Thyroidon 06-17-2019 US Thyroid EXAM: [...] Huntley MD 06/17/19 4:26 pm Technologist: KRISTINA [facility] Provider Orderson 06-16-2019 Provider Orders [id number] .[facility] C[facility] 05-29-2019 Coding Summary CODING DATE: 05/29/2019 [facility] STATUS: Home PAYOR: Medicaid HMO ADMIT [...] Deb Law Date Saved: 05/29/2019 12:32 pm [facility] Provider Orderson 05-28-2019 Provider Orders [id number] .[facility] XR Chest 2 Viewson 0 XR Chest [...] MD 05/27/19 4:03 pm Technologist: Anatoliy SETH [facility] Vital Signs Date Time Vital Sign Value Performing Clinician Facility 04-14-2023 22:23-0500 Body mass index (BMI) [Ratio] 17.47 kg/m2 Alexey Pedersonlong DO [facility] 04-14-2023 22:23-0500 Body temperature 97.9 [degF] [facility]ersonlong [facility] 04-14-2023 22:23-0500 Body weight 44.73 kg Alexey Bradfordng DO [facility] 04-14-2023 22:23-0500 Diastolic blood pressure 64 mm[Hg] Alexey Bradfordng DO [facility] 04-14-2023 22:23-0500 Systolic blood pressure 132 mm[Hg] Alexey Bradfordng DO Work Phone: [employer] 01-29-2022 12:15-0400 Body height 161.29 cm Stevenson Corbin Other [employer] Other 01-02-2022 08:47-0400 Body weight 49.9 kg Tai Hinojosa MD Work Phone: [facility] 01-02-2022 08:47-0400 Diastolic blood pressure 77 mm[Hg] Tai Hinojosa MD Work Phone: [facility] 01-02-2022 08:47-0400 Heart rate 68 /min Tai Hinojosa MD Work Phone: [facility] 01-02-2022 08:47-0400 SaO2% (BldA) [Mass fraction] 96 % Tai Hinojosa MD Work Phone: [facility] 01-02-2022 08:47-0400 Systolic blood pressure 128 mm[Hg] Tai Hinojosa MD Work Phone: [facility] 12-06-2021 15:00-0400 Body height 161.29 cm Sena Jabier Other [employer] Other 12-06-2021 15:00-0400 Body temperature 98 [degF] Sena Jabier Other [employer] Other 12-06-2021 15:00-0400 Diastolic blood pressure 85 mm[Hg] Sena Jabier Other [employer] Other 12-06-2021 15:00-0400 Respiratory rate 18 /min Sena Jabier Other [employer] Other 12-06-2021 15:00-0400 SaO2% (BldA) [Mass fraction] 96 % Sena Jabier Other [employer] Other 12-06-2021 15:00-0400 Systolic blood pressure 157 mm[Hg] Sena Jabier Other [employer] Other 10-18-2021 12:35-0400 Diastolic blood pressure 58 mm[Hg] MD Stevenson Corbin Work Phone: [facility] 10-18-2021 12:35-0400 Heart rate 64 /min MD Stevenson Corbin Work Phone: [facility] 10-18-2021 12:35-0400 Respiratory rate 16 /min MD Stevenson Corbin Work Phone: [facility] 10-18-2021 12:35-0400 SaO2% (BldA) [Mass fraction] 95 % MD Stevenson Corbin Work Phone: [facility] 10-18-2021 12:35-0400 Systolic blood pressure 146 mm[Hg] MD Stevenson Corbin Work Phone: [facility] 10-18-2021 12:19-0400 Body height 160.02 cm MD Stevenson Corbin Work Phone: [facility] 10-18-2021 12:19-0400 Body mass index (BMI) [Ratio] 18.1 kg/m2 MD Stevenson Corbin Work Phone: [facility] 10-18-2021 12:19-0400 Body weight 46.6 kg MD Stevenson Corbin Work Phone: [facility] 10-18-2021 11:35-0400 Inhaled oxygen flow rate 2 L/min MD Stevenson Corbin Work Phone: [facility] 10-18-2021 10:53-0400 Body temperature 97.1 [degF] MD Stevenson Corbin Work Phone: [facility] 09-25-2021 14:35-0400 Diastolic blood pressure 78 mm[Hg] Alexey Garcia Furlong Work Phone: [facility] [employer] DO Work Phone: 09-25-2021 14:35-0400 Systolic blood pressure 162 mm[Hg] Alexey G Furlong Work Phone: [facility] [employer] DO Work Phone: 09-25-2021 14:32-0400 Body height 160.02 cm Alexey G Furlong Work Phone: [facility] [employer] DO Work Phone: 09-25-2021 14:32-0400 Body mass index (BMI) [Ratio] 18.42 kg/m2 Alexey G Furlong Work Phone: [facility] [employer] DO Work Phone: 09-25-2021 14:32-0400 Body surface area Derived from formula 1.46 m2 Alexey G Furlong Work Phone: [facility] [employer] DO Work Phone: 09-25-2021 14:32-0400 Body weight 47.17 kg Alexey G Furlong Work Phone: [facility] DO Work Phone: 09-25-2021 14:32-0400 Diastolic blood pressure 90 mm[Hg] Alexey G Furlong Work Phone: [facility] DO Work Phone: 09-25-2021 14:32-0400 Heart rate 83 /min Alexey G Furlong Work Phone: [facility] DO Work Phone: 09-25-2021 14:32-0400 Systolic blood pressure 168 mm[Hg] Alexey G Furlong Work Phone: [facility] DO Work Phone: 09-13-2021 12:08-0400 Body height 160.02 cm MD Stevenson Corbin Work Phone: [facility] 09-13-2021 12:08-0400 Body mass index (BMI) [Ratio] 18.6 kg/m2 MD Stevenson Corbin Work Phone: [facility] 09-13-2021 12:08-0400 Body weight 47.8 kg MD Stevenson Corbin Work Phone: [facility] 05-30-2021 09:45-0500 Body height 161.29 cm Stevenson Olexa Other [facility] [employer] Other 05-30-2021 09:45-0500 Body mass index (BMI) [Ratio] 16.39 kg/m2 Stevneson Olexa Other [employer] [facility] [employer] Other 05-30-2021 09:45-0500 Body weight 42.64 kg Stevenson Olexa Other [employer] Other 03-22-2021 14:00-0500 Body height 161.29 cm Radha Bosch Other [employer] Other 03-22-2021 14:00-0500 Body mass index (BMI) [Ratio] 16.56 kg/m2 Radha Bosch Other [employer] Other 03-22-2021 14:00-0500 Body temperature 98.2 [degF] Radha Bosch Other [employer] Other 03-22-2021 14:00-0500 Body weight 43.09 kg Radha Bosch Other [employer] Other 03-22-2021 14:00-0500 Diastolic blood pressure 60 mm[Hg] Radha Bosch Other [employer] Other 03-22-2021 14:00-0500 Respiratory rate 18 /min Radha Bosch Other [employer] Other 03-22-2021 14:00-0500 SaO2% (BldA) [Mass fraction] 96 % Radha Bosch Other [employer] Other 03-22-2021 14:00-0500 Systolic blood pressure 140 mm[Hg] Radha Bosch Other [employer] Other Encounters Encounter Date Encounter Type Care Provider Facility Start: 04-11-2023 Continuing Care Alexey gtz DO Work Phone: [facility] Comment on above: Primary osteoarthrit is of left hip (Primary Dx); Hyposmolality syndrome; Movement disorder Start: 04-04-2023 ambulatory [facility] Start: 03-04-2023 End: 03-05-2023 ambulatory HERVE Candice STARKEY [facility] Start: 01-08-2023 End: 01-08-2023 ambulatory TAI HINOJOSA Facility:[facility] Start: 07-03-2022 End: 07-03-2022 ambulatory TAI HINOJOSA Facility:[facility] Start: 06-18-2022 Office outpatient vi sit 15 minutes Stevenson Corbin [facility] Start: 06-18-2022 End: 06-18-2022 ambulatory Stevenson Corbin Facility:[facility] Start: 06-18-2022 End: 06-18-2022 ambulatory DO Alexey Polo Work Phone: [facility] Work Phone: Start: 06-18-2022 End: 06-18-2022 Patient encounter procedure DO Alexey Polo Work Phone: [facility] Start: 06-04-2022 End: 06-04-2022 ambulatory LENA HAMEED . Facility:[facility] Start: 04-19-2022 End: 04-19-[address] EVA POOLE . Facility:[facility] Start: 03-23-2022 End: 03-23-[address] ERICK BERG . Facility:[facility] Start: 02-23-2022 End: 02-24-[address] ALEXEY POLO Facility:[facility] Start: 01-29-2022 Office outpatient vi sit 15 minutes Stevenson Corbin [facility] Start: 01-29-2022 End: 01-29-2022 ambulatory Stevenson Corbin [employer] Other Start: 01-27-2022 End: 01-28-[address] EMMA GO Facility:[facility] Start: 01-02-2022 End: 01-02-2022 Patient encounter procedure Tai Hinojosa MD Work Phone: Neurology Comment on above: Lingual facial bucca l dyskinesia (Primary Dx); Dyskinesia, tardive; Dyskinesia, orofacial; Excessive physiologic tremor Start: 12-27-2021 End: 12-27-[address] ALEXEY POLO Facility:[facility] Start: 12-06-2021 End: 12-06-2021 ambulatory Sena Jabier Other [employer] Other Start: 12-06-2021 Office outpatient vi sit 15 minutes Sena Jabier [facility] Start: 12-04-2021 Postop follow up vis it related to original px Stevenson Olexa [facility] Start: 12-04-2021 End: 12-04-2021 ambulatory Stevenson Olexa [employer] Other Start: 12-04-2021 End: 12-04-2021 Patient encounter procedure MD Stevenson Cobrin Work Phone: [facility] Start: 11-01-2021 End: 11-01-2021 ambulatory Stevenson Olexa Other [employer] Other Start: 11-01-2021 Telephone encounter Stevenson Corbin [facility] Start: 10-26-2021 Postop follow up vis it related to original px Stevenson Olexa [facility] Start: 10-26-2021 End: 10-26-2021 ambulatory Stevenson Olexa [employer] Other Start: 10-26-2021 End: 10-26-2021 Patient encounter procedure MD Stevenson Corbin Work Phone: [facility] Start: 10-18-2021 End: 10-18-2021 ambulatory Stevenson Olexa Facility:[facility] Start: 10-18-2021 End: 10-18-2021 Admission to same day surgery center MD Stevenson Corbin Work Phone: [facility] Start: 10-17-2021 End: 10-17-2021 ambulatory Stevenson Olexa Other [employer] Other Start: 10-17-2021 Telephone encounter Stevenson Corbin [facility] Start: 10-13-2021 End: 10-13-2021 ambulatory Stevenson Corbin Facility:[facility] Start: 10-13-2021 End: 10-13-2021 Patient encounter procedure MD Stevenson Corbin Work Phone: [facility] Start: 10-09-2021 End: 10-09-2021 Patient encounter procedure MD Stevenson Corbin Work Phone: [facility] Start: 09-25-2021 Office consultation new/estab patient 60 min Alexey Polo Work Phone: -[facility] DO Work Phone: Start: 09-20-2021 End: 09-20-2021 ambulatory Stevenson Corbin Facility:[facility] Start: 09-20-2021 End: 09-20-2021 Departed Referred MD Stevenson Corbin Work Phone: [facility] [place] Start: 09-18-2021 Telephone encounter Stevenson Corbin [facility] Start: 09-18-2021 End: 09-18-2021 ambulatory Stevenson Corbin [employer] Other Start: 09-18-2021 End: 09-18-2021 Patient encounter procedure MD Stevenson Corbin Work Phone: [facility] Start: 09-13-2021 End: 09-13-2021 ambulatory Stevenson Corbin Facility:[facility] Start: 08-22-2021 End: 08-22-[address] ALEXEY POLO Facility:[facility] Start: 07-12-2021 Telephone encounter Tai johnson MD Work Phone: Neurology Comment on above: Insurance Authorizat ion Start: 06-29-2021 End: 06-30-[address] ALEXEY POLO Facility:[facility] Start: 05-30-2021 End: 05-30-2021 ambulatory Stevenson Corbin Other [employer] Other Start: 05-30-2021 Office outpatient ne w 30 minutes Stevenson Corbin [facility] Start: 03-22-2021 End: 03-22-2021 ambulatory Arnavfrannie Hiro Other [facility] [employer] Other Start: 03-22-2021 Office outpatient vi sit 15 minutes Radha Bosch [facility] Start: 06-16-2020 End: 06-17-2020 ambulatory [facility] Facility:[facility] Patient encounter status Alexey Polo Work Phone: -[facility] DO Work Phone: Procedures Date Procedure [...] Td Vaccines (3 - Td or Tdap) [facility] Start: 03-12-2024 Adult BMI Screening Adult BMI Screening [facility] Start: 03-12-2024 Tobacco Screening Tobacco Screening [facility] Start: 12-14-2022 COVID-19 Vaccine ( season) COVID-19 Vaccine ( season) [facility] Start: 12-14-2022 Influenza vaccination Influenza Vaccine [facility] Start: 12-14-2021 Influenza vaccination INFLUENZA (#1) [facility] Start: 12-04-2021 Plain X-ray of right shoulder XR shoulder RT min 2V* [facility] Start: 12-04-2021 End: 12-04-2021 Patient encounter procedure Departed Clinical [facility] Start: 10-18-2021 End: 10-18-2021 [facility] Work Phone: Start: 09-20-2021 Prosthetic total arthroplasty of right shoulder OR Shoulder Arthroplasty-Total (Right) [facility] Start: 08-08-2021 Adult depression screening assessment DEPRESSION SCREENING [facility] Start: 04-15-2021 ADVANCE DIRECTIVE DISCUSSION ADVANCE DIRECTIVE DISCUSSION [facility] Start: 2020 BONE DENSITY BONE DENSITY [facility] Start: 2020 Fall Risk Screening Fall Risk Screening [facility] Start: 2020 PNEUMOCOCCAL: 65+ (1 - PCV) PNEUMOCOCCAL: 65+ (1 - PCV) [facility] Start: 2005 SHINGRIX VACCINE (1 of 2) SHINGRIX VACCINE (1 of 2) [facility] Start: 2000 COLOGUARD (FIT-DNA) COLOGUARD (FIT-DNA) [facility] Start: 2000 Colonoscopy COLONOSCOPY [facility] Start: 2000 COLORECTAL CANCER SCREENING COLORECTAL CANCER SCREENING [facility] Start: [address] COLONOGRAPHY [facility] Start: 2000 DIABETES SCREEN DIABETES SCREEN [facility] Start: 2000 FECAL OCCULT BLOOD FECAL OCCULT BLOOD [facility] Start: 2000 LIPID SCREEN LIPID SCREEN [facility] Start: 2000 SIGMOIDOSCOPY SIGMOIDOSCOPY [facility] Start: 1995 Mammography MAMMOGRAM [facility] Start: 1974 Urine microalbumin profile DTAP,TDAP,TD (1 - Tdap) [facility] Start: 1973 Adult BMI Follow Up Plan Adult BMI Follow Up Plan [facility] Start: 1973 HEPATITIS C SCREENING HEPATITIS C SCREENING [facility] Start: 1967 Depression Screening Depression Screening [facility] Start: 1955 COVID-19 VACCINE (#1) COVID-19 VACCINE (#1) [facility] Start: 1955 Medicare Annual Wellness Visit Medicare Annual Wellness Visit [facility] Immunizations Immunization Date Immunization Notes Care Provider [facility] 03-26-2021 Pfizer-BioNTech COVID-19 Vacc 30 MCG/0.3ML Intramuscular Suspension Alexey Bradfordng Work Phone: [facility] 01-10-2021 Fluzone High-Dose Quadrivalent 0.7 ML Intramuscular Suspension Prefilled Syringe Alexey Polo Work Phone: [facility] 01-10-2021 influenza virus vaccine, unspecified formulation Alexey Polo DO Work Phone: [facility] 12-28-2020 diphtheria, tetanus toxoids and pertussis vaccine Alexey G Bglong Work Phone: [facility] 07-14-2020 Pfizer-BioNTech COVID-19 Vacc 30 MCG/0.3ML Intramuscular Suspension Alexey G Suzetteng Work Phone: [facility] 06-28-2020 tetanus toxoid, redu anne diphtheria toxoid, and acellular pertussis vaccine, adsorbed Alexey Bradfordng Work Phone: [facility] 06-23-2020 Pfizer-BioNTech COVID-19 Vacc 30 MCG/0.3ML Intramuscular Suspension Alexey G Bglong Work Phone: [facility] 12-19-2019 influenza, injectabl e, quadrivalent, preservative free Alexey G Bglong Work Phone: [facility] 12-15-2019 influenza, seasonal, injectable Alexey Bglong DO Work Phone: [facility] 10-28-2019 zoster vaccine recombinant Alexey G [employer]pling [employer] Work Phone: [facility] 02-25-2019 zoster vaccine recombinant Alexey G Furlong Work Phone: [facility] 12-25-2018 influenza, injectabl e, quadrivalent, preservative free Alexey G Furlong Work Phone: [facility] 12-25-2018 pneumococcal conjuga te vaccine, 13 valent Alexey G Furlong Work Phone: [facility] 12-20-2017 influenza, injectabl e, quadrivalent, preservative free Alexey G Furlong Work Phone: [facility] 12-14-2016 influenza virus vaccine, unspecified formulation Alexey Furlong DO Work Phone: [facility] 12-14-2016 influenza, injectabl e, quadrivalent, preservative free Alexey G Furlong Work Phone: [facility] 11-20-2015 influenza, seasonal, injectable, preservative free Alexey G Furlong Work Phone: [facility] [employer] 250 DO Work Phone: 11-20-2015 pneumococcal polysaccharide vaccine, 23 valent Alexey G Furlong Work Phone: [facility] [employer] 250 DO Work Phone: 11-20-2015 zoster vaccine, live Alexey G Furlong Work Phone: [facility] [employer] 250 DO Work Phone: 12-31-2014 influenza, seasonal, injectable, preservative free Alexey G Furlong Work Phone: [facility] NEGATED: Highlighted row has not occurred!05-19-2022 pneumococcal polysaccharide vaccine, 23 valent Alexey Furlong DO Work Phone: [facility] Payers Date Payer Category Payer Medicare [id number] 2021 Self-pay [id number] 2020 Medicare [id number] 2013 [place] [id number] 2013-Present [phone] [address] [place] [address] Medicaid [id number] 1959 Medicaid [id number] 1959 Medicare [id number] 1955 Unknown [id number] [id number] 1955 Unknown [id number] 2.16.840.1.489562.3.579.2.593 1955 Unknown [id number] 2.16.840.1.348058.3.579.2.593 1955 Unknown [id number] 2.16.840.1.588175.3.579.2.593 1955 Unknown [id number] 2.16.840.1.305061.3.579.2.593 1955 Unknown [id number] 2.16.840.1.594907.3.579.2.593 1955 Unknown [id number] 2.16.840.1.983782.3.579.2.593 1955 Unknown [id number] 2.16.840.1.783034.3.579.2.593 1955 Unknown [id number] 2.16.840.1.414690.3.579.2.593 Unknown Unknown [id number] 2.16.840.1.115717.3.579.2.531 Unknown [id number] 2.16.840.1.213150.3.579.2.531 Unknown [id number] 2.16.840.1.393913.3.579.2.531 Unknown [id number] 2.16.840.1.007876.3.579.2.531 Unknown [id number] 2.16.840.1.393116.3.579.2.531 Unknown [id number] 2.16.840.1.954767.3.579.2.531 Unknown [id number] 2.16.840.1.127377.3.579.2.531 Unknown [id number] 2.16.840.1.605824.3.579.2.531 Unknown [id number] 2.16.840.1.201033.3.579.2.531 Social History Date Type Detail Facility Start: 2020 End: 02-18-2023 Daily caffeine consumption Daily caffeine consumption [facility] Comment on above: 1-2 cups of coffee d aily. Occas iced tea. Diet coke ocassional; Quit in ; Start: 2020 End: 03-12-2023 Sex Assigned At [facility] Start: 10-18-2021 End: 02-18-2023 Tobacco smoking status ARIS Ex-smoker (finding) [facility] Start: 1955 Sex Assigned At Female F [facility] End: 07-21-2017 History of tobacco use Current smoker [facility] End: 07-21-2017 History of tobacco use Cigarette Smoker [facility] Start: 07-21-2018 End: 02-18-2023 Tobacco use and exposure Smokeless tobacco non-user [facility] Start: 08-10-2020 End: 01-02-2022 Alcohol intake Lifetime non-drinker (finding) [facility] Start: 07-21-2018 History SDOH Alcohol Frequency 1 [facility] Start: 1955 Sex Assigned At Not on file [facility] Start: 12-23-2021 End: 01-02-2022 Exposure to SARS-CoV-2 (event) Not sure [facility] Start: 03-12-2023 Alcohol intake Current non-dr tailing hand of alcohol (finding) [facility] Housing Instability Unknown [facility] Start: 03-23-2022 Tobacco Comment Quit in the 'S, STARTED AGE 18 [facility] Medical Equipment Procedure Code Equipment Code Equipment Origin al Text Equipment Identifier Dates Arthroplasty, shoulder, total Total reverse shoulder prosthesis [id number] [id number])[id number] 99 FDA Start: 10-18-2021 Arthroplasty, shoulder, total Total reverse shoulder prosthesis [id number] [id number] 1932 FDA Start: 10-18-2021 Arthroplasty, shoulder, total Total reverse shoulder prosthesis [id number] [id number])[id number] 83 FDA Start: 10-18-2021 Arthroplasty, shoulder, total Total reverse shoulder prosthesis [id number] [id number])21.007 57 FDA Start: 10-18-2021 Arthroplasty, shoulder, total Total reverse shoulder prosthesis [id number] [id number])21.024 16 FDA Start: 10-18-2021 Arthroplasty, shoulder, total Total reverse shoulder prosthesis [id number] [id number] FDA Start: 10-18-2021 Arthroplasty, shoulder, total Total reverse shoulder prosthesis [id number] [id number] 95 FDA Start: 10-18-2021 Arthroplasty, shoulder, total Total reverse shoulder prosthesis ()[id number] [id number] FDA Start: 10-18-2021 Arthroplasty, shoulder, total Total reverse shoulder prosthesis [id number] [id number] FDA Start: 10-18-2021 Arthroplasty, shoulder, total Total reverse shoulder prosthesis [id number] [id number] FDA Start: 10-18-2021 Mesh Pco Vntrl P tch 4.6cm Rpl [id number] +[id number] - Sna - [id number] Start: 01-29-2020 Goals Date Patient Goal [...] Evaluation of progress towards goal: return to [facility] Clinical Notes 03-22-2021 to 04-11-2023 Alexey Polo, DO - 04/11/2023 11:59 PM EST Note Date & Type Note Facility 04-11-2023 History of Present illness Narrative Patient Name: Melanie Espinoza Date of : 1955 Date of Service: 04/11/2023 Facility: [facility] Type of Visit: Subsequent Visit Subjective Melanie Espinoza is a 67 y.o. female seen today at residential facility for monthly visit. Melanie is having a lot of hip pain and has an appointment for ortho coming up to discuss hip replacement. had a fall recently and had to be sent to the ER. There were no fractures. She is back and has no new problems. Allergies: Erythromycin and Clarithromycin Code Status: [facility] BP 132/64 Temp 36.6 C (97.9 [...] Alexey Polo DO documented in this encounter [facility] 04-04-2023 Note Orthopedic Surgery Subjective Pain of [...] Torres MD Orthopaedic Surgery 04/04/23 12:44 PM [facility] 03-04-2023 Note HPI *Left hip Reported by patient. Location: left Quality: increasing Severity: moderate to severe pain Context: walker Aggravating Factors: cannot identify Associated Symptoms: no redness; no warmth; no ecchymosis; no drainage; no swelling; no fever; no chills; no calf pain Previous Surgery: surgical procedure: Prior Imaging: x ray ORIF left hip fx [id number] ORIF LT HIP ROS Patient reports no [...] hip OA/AVN Plan Refer to Dr Plaza [facility] 01-08-2023 Note HNO ID: [id number] Author: Tai Hinojosa MD Service: ? Author Type: Physician Type: Progress Notes Filed: 01/08/2023 2:41 PM Note Text: January 08, 2023 Tai Hinojosa MD [address] / [address] [address] Esteban Garza MD ([facility]) [address] [place] [address] Melanie Espinoza : 1955 Interval History: Melanie [...] pulse 83, h (more content not included)... [facility] 07-03-2022 Note HNO ID: [id number] Author: Tai Hinojosa MD Service: ? Author Type: Physician Type: Progress Notes Filed: 07/03/2022 12:35 PM Note Text: July 03, 2022 Tai Hinojosa MD [address] / [place] [id number] Esteban Garza MD ([facility]) [address] [place] [address] Melanie Espinoza : 1955 Interval History: Melanie [...] This could b (more content not included)... [facility] 06-18-2022 Evaluation note Encounter [...] arthroplasty of right shoulder (ICD-10 - Z96.611) [employer] Other 10-17-2022 Evaluation note* Encounter Date Diagnosis [...] exercises, these were demonstrated. Call with questions/concerns. [employer] Other 09-20-2022 Instructions* Patient Instructions* Tai Hinojosa MD - 01/02/2022 9:43 AM EDT 1) Double the dose of Austedo to 12 mg twice a day for 1 month, then increase further to 18 mg 2) continue clonazepam and methocarbamol 3) continue primidone for the action tremor [facility] History of Present illness Narrative* Tai Hinojosa MD - 01/02/2022 9:25 AM EDT January 02, 2022 Tai Hinojosa MD [address] / [place] [id number] Esteban Garza MD ([facility]) [address] [place] [address] Melanie Espinoza : 1955 Interval History: Melanie [...] on the day of service, which included [id number] patient care, completing clinical documentation, obtaining and/or reviewing separately obtained history, performing a medically appropriate examination, counseling and educating the patient/family/caregiver, and ordering medications, tests, or procedures. Thank you for including me in the care of this interesting patient. 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 Her sodium is within normal limit. Continue fluid restriction. Nov, HTN (hypertension) (ICD-10 - I10) Blood pressure is high today but usually well controlled at the half-way. Continue current medications. Nov, Hydronephrosis (ICD-10 - N13.30) She reported that she was seen by neurologist and had extensive work-up done. She was advised intervention needed. Nov, Dyslipidemia (ICD-10 - E78.5) Continue statins. Continue follow with PCP for LFTs and lipid profile monitoring. [employer] Other [id number] Evaluation note* Encounter Date Diagnosis Assessment Notes [...] arthroplasty of right shoulder (ICD-10 - Z96.611) [employer] Other 07-14-2022 Evaluation note* Encounter Date Diagnosis [...] on her own. Call with questions/concerns . [employer] Other 07-05-2022 Evaluation note* Encounter Date Diagnosis Assessment Notes Treatment Notes Treatment Clinical Notes Oct, History of reverse total replacement of right shoulder joint (ICD-10 - Z98.890) [employer] Other 06-06-2022 Evaluation note* Encounter Date Diagnosis Assessment Notes Treatment Notes Treatment Clinical Notes Sep, Status post reverse total arthroplasty of right shoulder (ICD-10 - Z96.611) [employer] Other 03-30-2022 Miscellaneous Notes* Telephone Encounter - [...] 07/12/2021 12:53 PM EDT Donita calling from [facility] States the pt received a letter from insurance company that medication Austedo 6 mg was denied. Will need prior authorization. Can you please assist with PA. [place] requesting that once PA approved to fax to them at [phone]. Thanks. * Telephone Encounter - Kailey Andrews - 07/12/2021 11:08 AM EDT Patient called and would like to know if the doctor can reach out to the insurance company to do a prior auth for Austedo 6mg to receive medication.Please advise Thank you, Kailey documented [facility] NotePROCEDURE: XR SHOULDER RT 2V or > [...] Electronically authenticated by: CM RAMIREZ Date: 2021-06-29 14:37[facility]02-15-2022 Evaluation note* Encounter Date Diagnosis Assessment [...] pain of right shoulder (ICD-10 - M25.511) [employer] Other 12-08-2021 Evaluation note* Encounter Date Diagnosis [...] stated that she has an appointment with fulling machine operator to check her thyroid. She follow-up with her family doctor as well. [employer] Other Evaluation noteNo InformationNort Jobzella Other Evaluation noteNo assessment information available 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 documented in this encounter [employer] general Narrative - Reported* Type Description Date Medical History hypothyroidism Medical History anxiety and depression 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 Surgical History tubal revision 1984 Surgical History HIP FRACTURE 02/2020 Surgical History COLONSCOPY 2020 Surgical History RECTAL PROLAPSE 12/2020 Hospitalization History SEE ABOVE Hospitalization History RECTAL PROLAPSE 12/2020 [employer] Other History general Narrative - Reported* Type Description Date Medical History hypothyroidism Medical History anxiety and depression 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 Surgical History tubal revision 1984 Surgical History HIP FRACTURE 02/2020 Surgical History COLONSCOPY 2020 Surgical History RECTAL PROLAPSE 12/2020 Surgical History right reverse total shoulder 20 22 Hospitalization History SEE ABOVE Hospitalization History RECTAL PROLAPSE 12/2020 [employer] Other InstructionsNot on filedocumented in this encounter [employer] Summary Purpose Family History Unknown Family Member [...] PM DNR Comfort Care Arrest (DNR -CCA) [place] 01/07/2021 4:37 PM 01/08/2021 7:11 PM Full Code 12/23/2020 7:31 AM 12/26/2020 12:12 PM Chief Complaint and Reason for Visit Chief Complaint Shoulder pain Shoulder pain Shoulder pain Shoulder pain Shoulder pain Z96.611 M75.101 Additional Source Comments INFORMATION SOURCE (unrecogn ized section and content) DATE CREATED AUTHOR 01/14/2020 [place] DATE CREATED AUTHOR AUTHOR'S ORGANIZ ATION 02/23/2021 [facility] DATE CREATED AUTHOR AUTHOR'S ORGANIZ ATION 04/12/2021 [facility] DATE CREATED AUTHOR AUTHOR'S ORGANIZ ATION 09/26/2021 [employer] DATE CREATED AUTHOR AUTHOR'S ORGANIZ ATION 06/06/2022 [facility] DATE CREATED AUTHOR AUTHOR'S ORGANIZ ATION 08/09/2022 [facility] DATE CREATED AUTHOR AUTHOR'S ORGANIZ ATION 01/16/2023 [facility] DATE CREATED AUTHOR AUTHOR'S ORGANIZ ATION 04/10/2023 [facility] REASON FOR VISIT (unrecogniz ed section and [...] Alexey Polo DO Primary Care Provider Active [employer] Relationship Specialty Start Date End Date Esteban Garza [address] [place] [address] PCP - General Family Practice 07/21/18 [employer] Relationship Specialty Start Date End Date Esteban Garza [address] [place] [address] PCP - General Family Medicine 07/21/18 [employer] Relationship Specialty Start Date End Date BgleeannJoseAlexey G [address] [place] [address] PCP - General Family Medicine 03/27/22 Source Comments (unrecognize d section and content) In the event this informatio n is protected by the Federal Confidentiality of Alcohol and Drug Abuse Patient Records regulations: The Federal rules restrict any use of the information to criminally investigate or prosecute any alcohol or drug abuse patient.[facility] the event this information is protected by the Federal Confidentiality of Alcohol and Drug Abuse Patient Records regulations: The Federal rules restrict any use of the information to criminally investigate or prosecute any alcohol or drug abuse patient.[facility] Goals (unrecognized section and content) Goals may [...] BE BASED ON THE PRIMARY CLINICAL RECORDS. [facility] [employer] [facility]. provides no warranty or guarantee of the accuracy or completeness of information in this document.
--- NOTE | 2023-05-11 07:50 | PM.HP ---
H&P: HPI History of Present Illness Chief complaint: CHEST PAIN Narrative: patient is a 67-year-old female who resides in a nursing facility who presented with a one-day history of chest pain. She denies any shortness of breath, any sweating or jaw pain. She denies any prior cardiac history or need to see a supervisor paste mixing. She has a history of anxiety, depression, chronic tardive dyskinesia, hypertension. Her cardiac workup including troponins, EKG, proBNP have all been within normal range. On admission exam she denies any current chest pain. She was found to have a hemoglobin of 6.0.she denies any acute blood in the urine or stool. She denies any prior history of anemia. Patient agreed and will be transfused two units of packed red blood cells. Review of Systems ROS Narrative ROS: a complete review of systems were reviewed with patient and are positive as below or listed in History of Chief Complaint. General: no fever, chills, night sweats Head: no headache, trauma, visual changes, nausea or vomiting Skin: no reported rashes, itching or sores Eyes: no blurriness of vision Ears: no reported hearing loss, vertigo, earache, or tinnitus Throat: no sore throat, hoarseness, swelling of neck, or tongue pain Heart: chest pain Lungs: no shortness of breath or cough GI: no diarrhea or vomiting/nausea Urinary: no urinary urgency, frequency or pain Neuro: no numbness or tingling HEM: no bleeding issues or bruising ENDO: no thyroid problems Psych: anxiety or depression [facility] Medical History (Updated 05/11/23 @ 16:28 by Colleen Beaver DO) Rectal prolapse ?K62.3 - Rectal prolapse (ICD-10) Tremors of nervous system ?R25.1 - Tremor, unspecified (ICD-10) Tardive dyskinesia ?G24.01 - Drug induced subacute dyskinesia (ICD-10) Hypertension ?I10 - Essential (primary) hypertension (ICD-10) Surgical History H/O tubal ligation ?Z98.51 - Tubal ligation status (ICD-10) Family History Father Family history of cancer Family history of myocardial infarction Family history of hypertension Sister Family history of cancer Mother Family history of stroke Family history of hypertension Social History Within the past year, how often did you have a drink containing alcohol: never Score interpretation: A score less than 3 is consistent with normal alcohol consumption. Smoking status: Former smoker Non-prescribed substance use: denies use Highest level of school completed/degree received: high school graduate Meds Home Medications and Allergies Home Medications Medication Instructions Recorded Confirmed Type amlodipine 10 mg tablet 10 mg PO Q24H 04/03/23 05/11/23 History atorvastatin 40 mg tablet 40 mg PO Q24H 04/03/23 05/11/23 History buspirone 10 mg tablet 10 mg PO Q12H 04/03/23 05/11/23 History calcium carbonate 600 mg-vitamin 1 tab PO BID 04/03/23 05/11/23 History D3 10 mcg (400 unit) tablet (Calcium with Vitamin D) clonazepam 0.5 mg tablet 0.5 mg PO Q8H 04/03/23 05/11/23 History cyclobenzaprine 10 mg tablet 10 mg PO Q8H 04/03/23 05/11/23 History deutetrabenazine 12 mg tablet 12 mg PO Q12H 04/03/23 05/11/23 History (Austedo) dextromethorphan-guaifenesin 10 10 ml PO Q6H 04/03/23 05/11/23 History mg-100 mg/5 mL oral syrup fluticasone propionate 50 1 spray intranasal Q24H 04/03/23 05/11/23 History mcg/actuation nasal spray,suspension gabapentin 300 mg capsule 300 mg PO Q12H 04/03/23 05/11/23 History gabapentin 600 mg tablet 600 mg PO Q24H 04/03/23 05/11/23 History levothyroxine 75 mcg tablet 75 mcg PO Q24H 04/03/23 05/11/23 History loperamide 2 mg capsule 2 mg PO Q6H PRN loose stool 04/03/23 05/11/23 History (Anti-Diarrheal (loperamide)) pantoprazole 40 mg tablet,delayed 40 mg PO DAILY 04/03/23 05/11/23 History release (Protonix) polyethylene glycol 3350 17 17 g PO DAILY 04/03/23 05/11/23 History gram/dose oral powder (Miralax) primidone 50 mg tablet 250 mg PO Q24H 04/03/23 05/11/23 History sucralfate 1 gram tablet 1 g PO Q6H 04/03/23 05/11/23 History trazodone 100 mg tablet 100 mg PO Q24H 04/03/23 05/11/23 History Allergies Allergy/AdvReac Type Severity Reaction Status Date / Time erythromycin base AdvReac Mild Verified 05/11/23 05:09 Exam Narrative Exam Narrative: General: Patient is alert, and oriented to person, place and time with normal affect, proper hygiene Skin: no visible rashes, or ulcers Head: atraumatic, acephalic Eyes: PERRLA, no nystagmus present, conjunctiva clear, no scleral icterus Ears: normal gross auditory acuity Heart: Normal rate and rhythm, no murmurs/rubs/gallops Lungs: no audible wheezes, crackles and normal breath sounds all lung dunn Abdomen: Normal audible bowel sounds, no distension, No palpable masses, no organomegaly, no rebound/guarding/ or rigidity Musculoskeletal: no swelling bilateral lower extremities Neuro: CN II-X grossly intact Constitutional Vital Signs, click to edit/add: Last Vital Signs Temp 98.3 F 05/11/23 07:00 Pulse 70 05/11/23 07:00 Resp 18 05/11/23 07:00 BP 151/65 H 05/11/23 07:00 Pulse Ox 93 L 05/11/23 07:00 O2 Del Method Room Air 05/11/23 07:00 Results Labs Labs: Short CBC 05/11/23 05/11/23 Range/Units 05:00 05:26 WBC 5.7 5.2 (4.0-11.0) 10^3/uL Hgb 6.4 L* 6.0 L* (12.0-16.0) g/dL Hct 23.2 L* 21.6 L* (36.0-48.0) % Plt Count 474 H 429 (150-450) 10^3/uL BMP 05/11/23 05:00 Sodium 134 L Potassium 4.0 Chloride 100 Carbon Dioxide 27.2 BUN 8.0 Creatinine 0.51 L Glucose 94 Calcium 8.6 Liver Function 05/11/23 Range/Units 05:00 Total Bilirubin 0.1 L (0.2-1.0) mg/dL AST 21 (15-37) U/L ALT 14 (14-59) U/L Alkaline Phosphatase 62 (46-116) U/L Albumin 3.0 L (3.4-5.0) g/dL Assessment and Plan Assessment and Plan (1) Symptomatic anemia: Assessment and Plan: hemoglobin 6.0 and with repeat. Type and screen, cross and transfuse 2 units, recheck cbc afterward. No acute blood loss. Will check vitamin b12 and iron studies in the morning. (2) Tardive dyskinesia: Assessment and Plan: continue home medications (3) Hypertension: Assessment and Plan: continue amlodipine, Qualifiers: Hypertension type: primary hypertension Qualified Code(s): I10 - Essential (primary) hypertension (4) Chronic hyponatremia: Assessment and Plan: continue 2L fluid restriction, sodium level was 134 (5) Hyperlipidemia: Assessment and Plan: continue atorvastatin Qualifiers: Hyperlipidemia type: unspecified Qualified Code(s): E78.5 - Hyperlipidemia, unspecified (6) Anxiety: Assessment and Plan: continue buspar, clonazepam Plan patient is a DNRCC will place in SCD's for DVT prophylaxis patient is in observation and is not expected to stay more than 2 midnights.
[2023-05-11 08:22] LABS: Chol HDL Ratio 2.3; Cholesterol 143 mg/dL (<=200); HDL Cholesterol 62 mg/dL (40-60); Magnesium 1.8 mg/dL (1.8-2.4); Thyroid Stimulating Hormone 4.083 uIU/mL (0.358-3.740); Triglycerides 56 mg/dL (<=150); VLDL CHOLESTEROL 11.2 mg/dL
[2023-05-11] MEDS: LEVOTHYROXINE SODIUM 75 MCG TABLET PO (11:02)
[2023-05-11] MEDS: GABAPENTIN 300 MG CAPSULE PO ×2 (11:02→21:10)
[2023-05-11] MEDS: AMLODIPINE BESYLATE 5 MG TABLET 10 MG PO (11:02)
[2023-05-11] MEDS: PANTOPRAZOLE SODIUM 40 MG VIAL IV (11:02)
[2023-05-11] MEDS: SUCRALFATE 1 GM TABLET PO ×3 (11:48→23:14)
[2023-05-11] MEDS: PRIMIDONE 50 MG TABLET 250 MG PO (11:48)
[2023-05-11] MEDS: CYCLOBENZAPRINE HCL 10 MG TABLET PO ×2 (14:13→21:10)
[2023-05-11] MEDS: CLONAZEPAM 0.5 MG TABLET PO ×2 (14:13→21:10)
[2023-05-11 17:02] LABS: Basophils Absolute Auto 0.1 10^3/uL (0.0-0.1); Basophils Percent Auto 0.9 % (0.2-2.0); Eosinophils Absolute Auto 0.2 10^3/uL (0.0-0.7); Eosinophils Percent Auto 1.8 % (0.9-7.0); Hematocrit 33.9 % (36.0-48.0); Hemoglobin 10.1 g/dL (12.0-16.0); Immature Granulocytes Abs Auto 0.02 10^3/uL (0.00-0.03); Immature Granulocytes Pct Auto 0.2 % (0.0-0.5); Lymphocytes Absolute Auto 1.2 10^3/uL (1.2-3.8); Lymphocytes Percent Auto 12.8 % (20.5-60.0); Mean Corpuscular HGB Conc 29.8 g/dL (29.9-35.2); Mean Corpuscular Hemoglobin 20.2 pg (26.7-34.0); Mean Corpuscular Volume 67.8 fL (81.0-99.0); Mean Platelet Volume 8.3 fL (9.5-13.5); Monocytes Absolute Auto 0.9 10^3/uL (0.3-0.8); Monocytes Percent Auto 9.8 % (1.7-12.0); Neutrophils Percent Auto 74.5 % (43.0-75.0); Platelet Count 469 10^3/uL (150-450); Red Cell Distribution Width 25.9 % (11.0-15.0); White Blood Count 9.3 10^3/uL (4.0-11.0)
[2023-05-11] MEDS: ATORVASTATIN CALCIUM 40 MG TABLET PO (21:09)
[2023-05-11] MEDS: TRAZODONE HCL 50 MG TABLET 100 MG PO (21:40)
[2023-05-12] MEDS: 0.9 % SODIUM CHLORIDE 1,000 ML 75 ML IV (00:14)
[2023-05-12 04:02] VITALS: O2SAT 93
[2023-05-12] MEDS: SUCRALFATE 1 GM TABLET PO ×3 (05:36→17:09)
[2023-05-12] MEDS: LEVOTHYROXINE SODIUM 75 MCG TABLET PO (05:36)
[2023-05-12] MEDS: CLONAZEPAM 0.5 MG TABLET PO ×2 (05:36→13:13)
[2023-05-12] MEDS: CYCLOBENZAPRINE HCL 10 MG TABLET PO ×2 (05:36→13:13)
[2023-05-12 05:38] VITALS: BP 150/77; PULSE 69; RESP 20; TEMP 37.1; O2SAT 95
[2023-05-12 05:41] LABS: Basophils Absolute Auto 0.1 10^3/uL (0.0-0.1); Basophils Percent Auto 0.7 % (0.2-2.0); Eosinophils Absolute Auto 0.3 10^3/uL (0.0-0.7); Eosinophils Percent Auto 4.4 % (0.9-7.0); Hematocrit 31.6 % (36.0-48.0); Hemoglobin 9.3 g/dL (12.0-16.0); Immature Granulocytes Abs Auto 0.02 10^3/uL (0.00-0.03); Immature Granulocytes Pct Auto 0.3 % (0.0-0.5); Lymphocytes Absolute Auto 1.5 10^3/uL (1.2-3.8); Lymphocytes Percent Auto 19.3 % (20.5-60.0); Mean Corpuscular HGB Conc 29.4 g/dL (29.9-35.2); Mean Corpuscular Hemoglobin 20.1 pg (26.7-34.0); Mean Corpuscular Volume 68.4 fL (81.0-99.0); Mean Platelet Volume 8.2 fL (9.5-13.5); Monocytes Absolute Auto 0.7 10^3/uL (0.3-0.8); Monocytes Percent Auto 9.3 % (1.7-12.0); Platelet Count 436 10^3/uL (150-450); Red Blood Count 4.62 10^6/uL (4.20-5.40); Red Cell Distribution Width 24.9 % (11.0-15.0); White Blood Count 7.5 10^3/uL (4.0-11.0)
[2023-05-12 06:03] LABS: Alanine Aminotransferase 18 U/L (14-59); Albumin Globulin Ratio 0.8; Albumin Level 2.9 g/dL (3.4-5.0); Alkaline Phosphatase 72 U/L (46-116); Anion Gap 10.8; Aspartate Amino Transferase 29 U/L (15-37); Bilirubin Total 0.2 mg/dL (0.2-1.0); Calcium 8.2 mg/dL (8.5-10.1); Carbon Dioxide 23.6 mmol/L (21.0-32.0); Chloride 103 mmol/L (98-107); Estimated GFR (African America >60 (>=60); Estimated GFR (Non-African Ame >60 (>=60); Globulin 3.7 g/dL; Glucose 165 mg/dL (74-106); Potassium 3.4 mmol/L (3.5-5.1); Sodium 134 mmol/L (136-145); Total Protein 6.6 g/dL (6.4-8.2)
--- NOTE | 2023-05-12 08:48 | PM.DS1 ---
DS: Providers Provider Date of admission: 05/11/23 06:49 Primary care physician: JOHN POLO Admitting clinician: Colleen Beaver Consults: 05/11/23 Consult to Dietitian Routine Reason For Exam: wt loss Reason for consultation: wt loss Has provider been notified: Yes 05/11/23 07:40 Occupational Therapy Eval and Treat Routine Reason for consultation: weakness Has provider been notified: No Physical Therapy Eval and Treat Routine Reason for consultation: weakness Has provider been notified: No Discharging clinician: Colleen Beaver DS: Diagnosis Discharge Diagnosis (1) Symptomatic anemia: (2) Tardive dyskinesia: (3) Hypertension: Qualifiers: Hypertension type: primary hypertension Qualified Code(s): I10 - Essential (primary) hypertension (4) Chronic hyponatremia: (5) Hyperlipidemia: Qualifiers: Hyperlipidemia type: unspecified Qualified Code(s): E78.5 - Hyperlipidemia, unspecified (6) Anxiety: DS: Summary Hospital Course Hospital Course: patient is a 67-year-old female who resides in a nursing facility who presented with a one-day history of chest pain. She denies any shortness of breath, any sweating or jaw pain. She denies any prior cardiac history or need to see a powder cutting operator. She has a history of anxiety, depression, chronic tardive dyskinesia, hypertension. Her cardiac workup including troponins, EKG, proBNP have all been within normal range. She was found to have a hemoglobin of 6.0. she denies any acute blood in the urine or stool. She denies any prior history of anemia. Patient agreed and will be transfused two units of packed red blood cells, hemoglobin today was 9.3. Low iron level of 25. Recommended daily iron supplement. Also elevated TSH, I increased her levothyroxine to 100mcg daily. She will need recheck TFT's in 1 month and CBC in 1-2 weeks. Please return with any worsening symptoms. Incidental findings of movement of the right humeral head implant seen on X-ray. Patient denies any pain or issues. Would recommend orthopedic referral/ outpatient work up if pain or symptoms change. Status at Discharge Overall status at discharge: patient is back to baseline Time Spent with Patient Time attestation: Total time spent providing and/or coordinating discharge services: Time spent: greater than 30 minutes Exam Narrative Exam Narrative: General: Patient is alert, and oriented to person, place and time with normal affect, proper hygiene Skin: no visible rashes, or ulcers Head: atraumatic, acephalic Eyes: PERRLA, no nystagmus present, conjunctiva clear, no scleral icterus Ears: normal gross auditory acuity Heart: Normal rate and rhythm, no murmurs/rubs/gallops Lungs: no audible wheezes, crackles and normal breath sounds all lung dunn Abdomen: Normal audible bowel sounds, no distension, No palpable masses, no organomegaly, no rebound/guarding/ or rigidity Musculoskeletal: no swelling bilateral lower extremities Neuro: CN II-X grossly intact Constitutional Vital Signs, click to edit/add: Last Vital Signs Temp 98.8 F 05/12/23 05:38 Pulse 69 05/12/23 05:38 Resp 20 05/12/23 05:38 BP 150/77 H 05/12/23 05:38 Pulse Ox 95 05/12/23 05:38 O2 Del Method Room Air 05/12/23 05:38 DS: Data Data Completed and Pending Labs on day of discharge: Labs from last 24 hours 05/12/23 05/11/23 05/11/23 05:07 16:54 05:26 WBC 7.5 9.3 RBC 4.62 5.00 Hgb 9.3 L 10.1 L Hct 31.6 L 33.9 L MCV 68.4 L 67.8 L MCH 20.1 L 20.2 L MCHC 29.4 L 29.8 L RDW 24.9 H 25.9 H Plt Count 436 469 H MPV 8.2 L 8.3 L Neut % (Auto) 66.0 74.5 Lymph % (Auto) 19.3 L 12.8 L Callahan % (Auto) 9.3 9.8 Eos % (Auto) 4.4 1.8 Baso % (Auto) 0.7 0.9 Neut # (Auto) 5.0 7.0 H Lymph # (Auto) 1.5 1.2 Callahan # (Auto) 0.7 0.9 H Eos # (Auto) 0.3 0.2 Baso # (Auto) 0.1 0.1 Abs Immat Gran (auto) 0.02 0.02 Imm/Tot Granulo (auto) 0.3 0.2 Sodium 134 L Potassium 3.4 L Chloride 103 Carbon Dioxide 23.6 Anion Gap 10.8 BUN 8.0 Creatinine 0.57 Est GFR ( Amer) >60 Est GFR (Non-Af Amer) >60 BUN/Creatinine Ratio 14.0 Glucose 165 H Calcium 8.2 L Iron 25.0 L TIBC 414.0 % Saturation 6.0 Ferritin 22.0 Total Bilirubin 0.2 AST 29 ALT 18 Alkaline Phosphatase 72 Total Protein 6.6 Albumin 2.9 L Globulin 3.7 Albumin/Globulin Ratio 0.8 Vitamin B12 484.0 Blood Type O Positive Antibody Screen Negative Crossmatch See Detail Discharge Plan Discharge Disposition: Xfer LTC Condition: Fair Discharge Medications: New levothyroxine 100 mcg Tablet 100 mcg PO ACB 30 Days Qty: 30 0RF ferrous sulfate 325 mg (65 mg iron) Tablet 325 mg PO BID 30 Days Qty: 60 0RF Continued amlodipine 10 mg tablet 10 mg PO Q24H atorvastatin 40 mg tablet 40 mg PO Q24H Austedo 12 mg tablet 12 mg PO Q12H buspirone 10 mg tablet 10 mg PO Q12H clonazepam 0.5 mg tablet 0.5 mg PO Q8H cyclobenzaprine 10 mg tablet 10 mg PO Q8H fluticasone propionate 50 mcg/actuation spray,suspension 1 spray INTRANASAL Q24H gabapentin 300 mg capsule 300 mg PO Q12H gabapentin 600 mg tablet 600 mg PO Q24H primidone 50 mg tablet 250 mg PO Q24H sucralfate 1 gram tablet 1 g PO Q6H trazodone 100 mg tablet 100 mg PO Q24H pantoprazole [Protonix] 40 mg tablet,delayed release (DR/EC) 40 mg PO DAILY polyethylene glycol 3350 [Miralax] 17 gram/dose powder 17 g PO DAILY loperamide [Anti-Diarrheal (loperamide)] 2 mg capsule 2 mg PO Q6H PRN (Reason: loose stool) dextromethorphan-guaifenesin 10-100 mg/5 mL syrup 10 ml PO Q6H calcium carbonate-vitamin D3 [Calcium with Vitamin D] 600 mg-10 mcg (400 unit) tablet 1 tab PO BID Discontinued levothyroxine 75 mcg tablet 75 mcg PO Q24H Forms: Portal Instructions Follow Up Appointments: recheck thyroid function tests 1 month, recheck CBC in 1 week Discharge location: return to LTC facility
[2023-05-12 08:51] VITALS: BP 168/83
[2023-05-12] MEDS: AMLODIPINE BESYLATE 5 MG TABLET 10 MG PO (08:51)
[2023-05-12] MEDS: PRIMIDONE 50 MG TABLET 250 MG PO (08:51)
[2023-05-12] MEDS: PANTOPRAZOLE SODIUM 40 MG VIAL IV (08:51)
[2023-05-12] MEDS: GABAPENTIN 300 MG CAPSULE PO (08:51)
[2023-05-12] MEDS: FERROUS SULFATE 325 MG TABLET PO (09:33)
[2023-05-12 11:34] VITALS: O2SAT 96
[2023-05-12] MEDS: ACETAMINOPHEN 325 MG TABLET 650 MG PO (13:13)
--- NOTE | 2023-05-12 14:07 | PC.NURSE ---
[employer] called [facility] this morning and asked if they had transport available for patient at discharge. They state they do not. [employer] found transport via [facility] and is scheduled for 1800. Nurse Belinda asked if we would be able to test patient for RSV, Flu and Covid, as they have all of those in their building currently. did run this by Dr Beaver, but she declines as patient shows no symptoms. [employer] called Belinda back and told her what time transport was set up for and gave report and explained that we would not test her for said things as Dr Beaver declines.
[2023-05-12 14:42] LABS: Occult Blood Negative
[2023-05-12 15:35] VITALS: BP 154/70; PULSE 75; RESP 18; TEMP 36.7; O2SAT 95
== END 2023-05-12 18:10 ==
LOC: ER 06:23 → MS 06:53
PROVIDERS: Admitting Provider Family Medicine; Emergency Provider Student in an Organized Health Care Education/Training Program; PCP Family Medicine; Visit Provider Family Medicine
DX: D50.9 Iron deficiency anemia, unspecified (principal); G24.01 Drug induced subacute dyskinesia; I10 Essential (primary) hypertension; E87.1 Hypo-osmolality and hyponatremia; E78.5 Hyperlipidemia, unspecified; F41.9 Anxiety disorder, unspecified; R07.9 Chest pain, unspecified; F32.A Depression, unspecified; Z79.899 Other long term (current) drug therapy; Z79.890 Hormone replacement therapy; Z87.891 Personal history of nicotine dependence; Z66 Do not resuscitate; Z98.51 Tubal ligation status
CPT/HCPCS: 36415; 36430; 71045; 80053; 80061; 82607; 82728; 83540; 83550; 83690; 83735; 83880; 84443; 84484; 85025; 85610; 85730; 86850; 86900; 86901; 93005; 94761; 96375; 96376; 97163; 99285; G0328; G0378; J2270; J2405; P9016

== ENCOUNTER 2023-05-19 11:51 | Emergency (ER) | payer MEDICARE, MEDICAID, SELFPAY ==
[2023-05-19 11:54] VITALS: BP 149/49; PULSE 79; RESP 16; TEMP 36.8; O2SAT 95; BMI 16.8
--- NOTE | 2023-05-19 12:02 | XR_ITS ---
The [address] [address] Patient Name: PATTY ROSE MRN: [id number] date: 1955 Sex: F Assigned Patient Location: ER Current Patient Location: ED.MAIN Accession/Order Number: [id number] Exam Date: 05/19/2023 12:58 Report Date: 05/19/2023 13:55 At the request of: HALLIE CRAWLEY Procedure: XR hip LT min 2V EXAM: XR hip LT min 2V INDICATION: fall, pain. COMPARISON: Left hip radiograph 04/03/2023. TECHNIQUE: : Frontal and frog-leg lateral views of the left hip. FINDINGS: No acute fracture or dislocation. Stable internal fixation changes of the proximal left femur with 3 partially cannulated screws traversing the femoral neck. Stable severe [id number] degenerative changes with associated flattening of the femoral head, widening of the acetabulum, and superior subluxation of the humerus. Unremarkable soft tissues. XR/XR hip LT min 2V IMPRESSION: 1. No acute osseous abnormality. 2. Stable postsurgical and degenerative changes of the left hip. Electronically authenticated by: JEN RODRIGUEZ Date: 05/19/2023 13:55
--- NOTE | 2023-05-19 12:03 | ED_ITS ---
HPI - Extremity Injury (Lower) General Chief Complaint: Extremity Injury, Lower Stated Complaint: GENERAL WEAKNESS Time Seen by Provider: 05/19/23 11:57 Source: patient and medical record Mode of arrival: ambulance Limitations: no limitations History of Present Illness HPI Narrative: 67-year-old female presents for left hip pain. She fell out of bed and landed on her hip. No other injury was sustained and this happened just before coming into the emergency department. She was transported by paramedics. She states that she had a fracture of that hip previously and she previously also had surgery as a result. The pain is moderate and worse when she moves it. Related Data Home Medications Medication Instructions Recorded Confirmed amlodipine 10 mg tablet 10 mg PO Q24H 04/03/23 05/11/23 atorvastatin 40 mg tablet 40 mg PO Q24H 04/03/23 05/11/23 buspirone 10 mg tablet 10 mg PO Q12H 04/03/23 05/11/23 calcium carbonate 600 mg-vitamin 1 tab PO BID 04/03/23 05/11/23 D3 10 mcg (400 unit) tablet (Calcium with Vitamin D) clonazepam 0.5 mg tablet 0.5 mg PO Q8H 04/03/23 05/11/23 cyclobenzaprine 10 mg tablet 10 mg PO Q8H 04/03/23 05/11/23 deutetrabenazine 12 mg tablet 12 mg PO Q12H 04/03/23 05/11/23 (Austedo) dextromethorphan-guaifenesin 10 10 ml PO Q6H 04/03/23 05/11/23 mg-100 mg/5 mL oral syrup fluticasone propionate 50 1 spray intranasal Q24H 04/03/23 05/11/23 mcg/actuation nasal spray,suspension gabapentin 300 mg capsule 300 mg PO Q12H 04/03/23 05/11/23 gabapentin 600 mg tablet 600 mg PO Q24H 04/03/23 05/11/23 loperamide 2 mg capsule 2 mg PO Q6H PRN loose stool 04/03/23 05/11/23 (Anti-Diarrheal (loperamide)) pantoprazole 40 mg tablet,delayed 40 mg PO DAILY 04/03/23 05/11/23 release (Protonix) polyethylene glycol 3350 17 17 g PO DAILY 04/03/23 05/11/23 gram/dose oral powder (Miralax) primidone 50 mg tablet 250 mg PO Q24H 04/03/23 05/11/23 sucralfate 1 gram tablet 1 g PO Q6H 04/03/23 05/11/23 trazodone 100 mg tablet 100 mg PO Q24H 04/03/23 05/11/23 Previous Rx's Medication Instructions Recorded ferrous sulfate 325 mg (65 mg 325 mg PO BID 30 days #60 tabs 05/12/23 iron) tablet levothyroxine 100 mcg tablet 100 mcg PO ACB 30 days #30 tabs 05/12/23 Allergies Allergy/AdvReac Type Severity Reaction Status Date / Time erythromycin base AdvReac Mild Verified 05/19/23 11:54 Review of Systems ROS Narrative A ten point review of systems is negative except as noted above. [facility] Medical History (Updated 05/19/23 @ 14:29 by Jose Alberto Deshpande MD) Anxiety ?F41.9 - Anxiety disorder, unspecified (ICD-10) Hyperlipidemia ?E78.5 - Hyperlipidemia, unspecified (ICD-10) Chronic hyponatremia ?E87.1 - Hypo-osmolality and hyponatremia (ICD-10) Rectal prolapse ?K62.3 - Rectal prolapse (ICD-10) Tremors of nervous system ?R25.1 - Tremor, unspecified (ICD-10) Tardive dyskinesia ?G24.01 - Drug induced subacute dyskinesia (ICD-10) Hypertension ?I10 - Essential (primary) hypertension (ICD-10) Surgical History H/O tubal ligation ?Z98.51 - Tubal ligation status (ICD-10) Family History Father Family history of cancer Family history of myocardial infarction Family history of hypertension Sister Family history of cancer Mother Family history of stroke Family history of hypertension Social History Within the past year, how often did you have a drink containing alcohol: never Score interpretation: A score less than 3 is consistent with normal alcohol co nsumption. Smoking status: Former smoker Non-prescribed substance use: denies use Highest level of school completed/degree received: high school graduate Exam Narrative Exam Narrative: Nurses note and vital signs reviewed and patient is not hypoxic. General: The patient appears well and in no apparent respiratory distress. Skin: Warm, dry, no pallor noted. There is no rash noted. Head: Normocephalic, atraumatic Eye: Normal conjunctiva, no drainage Ears, Nose, Mouth, and Throat: oral mucosa is moist. Nares patent. Cardiovascular: Regular Rate and Rhythm Respiratory: Patient is in no distress, no accessory muscle use, lungs are clear to auscultation, no wheezing, rales or rhonchi Back: non-tender, no CVA tenderness bilaterally to percussion. GI: Soft and nontender Musculoskeletal: Left hip has no obvious deformity. Skin intact. She is laying on her back with her left knee flexed. She will spontaneously move the left hip to a small degree. Neurological: A&O, normal speech Psychiatric: Cooperative Constitutional Vital Signs, click to edit/add: Last Vital Signs Temp 98.3 F 05/19/23 11:54 Pulse 79 05/19/23 11:54 Resp 16 05/19/23 11:54 BP 149/49 H 05/19/23 11:54 Pulse Ox 95 05/19/23 11:54 O2 Del Method Room Air 05/19/23 11:54 Course Vital Signs Vital signs: Vital Signs Temperature 98.3 F 05/19/23 11:54 Pulse Rate 79 05/19/23 11:54 Respiratory Rate 16 05/19/23 11:54 Blood Pressure 149/49 H 05/19/23 11:54 Pulse Oximetry 95 05/19/23 11:54 Oxygen Delivery Method Room Air 05/19/23 11:54 Temperature 98.3 F 05/19/23 11:54 Pulse Rate 79 05/19/23 11:54 Respiratory Rate 16 05/19/23 11:54 Blood Pressure 149/49 H 05/19/23 11:54 Pulse Oximetry 95 05/19/23 11:54 Oxygen Delivery Method Room Air 05/19/23 11:54 MDM - Extremity Injury (Lower) MDM Narrative Medical decision making narrative: X-ray shows no acute findings. She has been able to ambulate with a walker and is able to be released. Findings were discussed with the patient. Differential Diagnosis Differential diagnosis: Likely other (Hip contusion, hip fracture) Imaging Data Left hip x-ray: Radiologist's impression: ITS Impressions Hip X-Ray 05/19/23 12:02 IMPRESSION: 1. No acute osseous abnormality. 2. Stable postsurgical and degenerative changes of the left hip. Electronically authenticated by: JEN RODRIGUEZ Date: 05/19/2023 13:55 Discharge Plan Discharge Chief Complaint: Extremity Injury, Lower Clinical Impression: Hip pain, left Patient Disposition: Home, Self-Care Time of Disposition Decision: 14:29 Condition: Good Mode of Transportation: EMS Prescriptions / Home Meds: No Action levothyroxine 100 mcg Tablet 100 mcg PO ACB 30 Days Qty: 30 0RF ferrous sulfate 325 mg (65 mg iron) Tablet 325 mg PO BID 30 Days Qty: 60 0RF amlodipine 10 mg tablet 10 mg PO Q24H atorvastatin 40 mg tablet 40 mg PO Q24H Austedo 12 mg tablet 12 mg PO Q12H buspirone 10 mg tablet 10 mg PO Q12H clonazepam 0.5 mg tablet 0.5 mg PO Q8H cyclobenzaprine 10 mg tablet 10 mg PO Q8H fluticasone propionate 50 mcg/actuation spray,suspension 1 spray INTRANASAL Q24H gabapentin 300 mg capsule 300 mg PO Q12H gabapentin 600 mg tablet 600 mg PO Q24H primidone 50 mg tablet 250 mg PO Q24H sucralfate 1 gram tablet 1 g PO Q6H trazodone 100 mg tablet 100 mg PO Q24H pantoprazole [Protonix] 40 mg tablet,delayed release (DR/EC) 40 mg PO DAILY polyethylene glycol 3350 [Miralax] 17 gram/dose powder 17 g PO DAILY loperamide [Anti-Diarrheal (loperamide)] 2 mg capsule 2 mg PO Q6H PRN (Reason: loose stool) dextromethorphan-guaifenesin 10-100 mg/5 mL syrup 10 ml PO Q6H calcium carbonate-vitamin D3 [Calcium with Vitamin D] 600 mg-10 mcg (400 unit) tablet 1 tab PO BID Instructions: Fall Prevention (ED), Hip Pain (ED) Stand Alone Forms: Portal Instructions Referrals: JOHN POLO [Primary Care Provider] - 1 week
--- OUTSIDE RECORDS SUMMARY | 2023-05-19 12:35 | XMS_ITS | CCD ---
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 Name Role Phone HERVE STARKEY Admitting Unavailable ESTEBAN GARZA Referring Unavailable ESTEBAN GARZA Primary Care Unavailable HERVE STARKEY Attending Unavailable Alexey Polo Unavailable Radha Bosch Unavailable Stevenson Corbin Unavailable Sena Eugene Unavailable MD Stevenson Corbin Attending Provider [phone] DO Alexey Polo Primary Care Provider Esteban Garza A Primary Care Provider Esteban Garza Primary Care Provider CHRIST, DR ALEXEY Garcia Primary Care Unavailable LENA PALMER Attending Unavailable LENA PALMER Admitting Unavailable ASHLEY, DR CM Napier Consulting Unavailable SOFI DISLA Consulting Unavailable LENA PALMER Consulting Unavailable CHRIST, DR ALEXEY Garcia Primary Care Unavailable SPENCER Gore, DR RODRIGUEZ Attending Unavailable SPENCER Gore, DR RODRIGUEZ Admitting Unavailable SPENCER Gore, DR [...] CHRIST, DR ALEXEY Garcia Primary Care Unavailable DANILO DR MESHA Palacio Consulting Unavailable PAY ., [...] Primary Care Unavailable SOFI DISLA Attending Unavailable SOFI DISLA Admitting Unavailable SOFI DISLA Consulting Unavailable JEFE SAEED Consulting [facility]available [facility] [place] Primary Care Provider MD Stevenson Corbin Attending Provider [phone] Olexa, Stevenson Admitting Unavailable Olexa, Stevenson Attending Unavailable [place], Alexey Primary Care Unavailable Olexa, Stevenson Admitting Unavailable Olexa, Stevenson Attending [facility]available [facility] Unavailable Olexa, Stevenson Admitting Unavailable Olexa, Stevenson Attending [facility]available [facility] Primary Care Unavailable Olexa, Stevenson Admitting Unavailable Olexa, Stevenson Attending Unavailable [facility]ey Primary Care Unavailable Olexa, Stevenson Admitting Unavailable Olexa, Stevenson Attending Unavailable [facility]ey Primary Care Unavailable Olexa, Stevenson Admitting Unavailable Olexa, Stevenson Attending Unavailable [facility]ey Primary Care Unavailable Olexa, Stevenson Admitting Unavailable Olexa, Stevenson Attending [facility]available [facility] Primary Care Unavailable Olexa, Stevenson Admitting Unavailable Olexa, Stevenson Attending Unavailable [facility] Primary Care Unavailable Olexa, Stevenson Admitting Unavailable Olexa, Stevenson Attending Unavailable [facility]ey Primary Care Unavailable HERVE STARKEY Referring Unavailable TELLY PLAZA Attending Unavailable HERVE STARKEY Attending Unavailable [place] Alexey CACERES Primary Care Provider [phone] ESTEBAN GARZA Primary Care Unavailable TAI HINOJOSA Attending Unavailable ESTEBAN GARZA Primary Care Unavailable TAI HINOJOSA Attending Unavailable ESTEBAN GARZA Primary Care Unavailable TAI HINOJOSA Referring Unavailable TAI HINOJOSA Attending Unavailable Allergies Allergy Classification Reported Allergen(s) Allergy Type Date of Onset Reaction(s) Facility (4 sources) Azithromycin Drug Allergy 0 Unknow [facility] Repository (4 sources) Erythromycin; Translations: [erythromycin] Drug Allergy 7 Nausea And Vomiting [facility] Repository (5 sources) erythromycin base; Translations: [Erythromycin Base] Allergy to substance 1 Unknown Reaction [facility] (1 source) Azithromycin Drug Allergy 2 [facility] Repository (2 sources) Clarithromycin Drug Allergy 1 Nausea And Vomiting [facility] Medications Current Medications Medication Drug Class(es) Dates Sig (Normalized) Sig (Original) acetaminophen 500 mg oral tablet (17 sources) Start: 10-09-2021 take 2 tablets by [...] hrs Active take 2 tablets by mo uth [...] hrs Active amLODIPine 5 mg oral tablet (17 sources) Dihydropyridine Calcium Channel Michael Start: 09-14-19 [...] d aily. atorvastatin 40 mg oral tablet (17 sources) HMG-CoA Reductase Inhibitor Start: take 1 tablet by mouth once daily atorvastatin (LIPITOR) 40 mg tablet Take 1 tablet (40 mg total) by mouth nightly. 30 tablet 0 01/08/2021 Active Comment on above: Take 40 mg by mouth once daily. Calcium + D3 600-800 MG-UNIT (10 sources) take 600-800 tablets by mouth once daily take 600-800 tablets by mouth on ce daily Calcium + D3 600-800 MG-UNIT 2 tablet with a meal Orally Once a day Active calcium carbonate 1500 mg / cholecalciferol 200 unt oral tablet (5 sources) Vitamin D Start: 09-13-2021 take 2 [...] needed. cyclobenzaprine hydrochloride 10 mg oral tablet (2 sources) Muscle Relaxant Start: 023 take 1 tablet by mouth three times daily as needed for muscle spasms cyclobenzaprine (FLEXERIL) 10 mg tablet Take 1 tablet (10 mg total) by mouth 3 (three) times a day as needed for muscle spasms. 0 12/23/2022 Active deutetrabenazine 12 mg oral tablet (10 sources) Start: 022 take 2 tablets by [...] mg/ml / guaiFENesin 20 mg/ml oral solution (2 sources) Uncompetitive F-zahpda-V-aspartate Receptor Antagonist, Sigma-1 Agonist take 10 mL [...] propionate 0.05 mg/actuat metered dose nasal spray (16 sources) Corticosteroid Start: 03-19-2022 fluticasone propionate (FLONASE) [...] capsule (20 sources) Anti-epileptic Agent Start: 09-21-2020 gabapentin (NEURONTIN) 300 mg capsule take 1 capsule by mouth IN THE MORNING, 1 CAP IN THE EARLY AFTERNOON AND 2 CAPS IN THE EVENING 0 09/21/2020 Active Start: 06-29-2020 take 600 mg by mouth at bedtim e Gabapentin Active 600 MG PO Bedtime June 28, 2020 11:00pm Start: 06-28-2020 End: 07-05-2020 Gabapentin Discontinued 300 MG PO Twice daily June 27, 2020 11:00pm July 05, 2020 9:25am 1 (300MG) in AM, 1 (300 MG) in afternoon, 2 (600 MG) at bedtime Comment on above: Take 1 capsule in morning, one in early afternoon, and 2 in the evening ibuprofen 200 mg oral tablet (8 sources) Nonsteroidal Anti-inflammatory Drug Start: 09-13-2021 take 600 mg by mouth every eight hours Ibuprofen Active 600 MG PO Q8H September 12, 2021 11:00pm take 3 capsules by m outh every eight hours Ibuprofen 200 MG 3 [...] needed. levothyroxine sodium 0.075 mg oral tablet (19 sources) l-Thyroxine Start: 0 take 1 tablet by mouth once daily before breakfast levothyroxine (SYNTHROID, LEVOTHROID) 75 MCG tablet Take 1 tablet (75 mcg total) by mouth every morning before breakfast. Take on empty stomach 0 11/26/2019 Active take 1 tablet by courtney th every twenty-four hours Levothyroxine Sodium 75 MCG 1 tablet Orally Once a day for 30 day(s) Active take 1 tablet by mouth once jose manuel y levothyroxine (SYNTHROID) 100 mcg tablet Take 100 mcg by mouth once daily. 0 Active take 1 capsule by mo ut once daily before breakfast levothyroxine 75 mcg cap Take 75 mcg by mouth daily before breakfast. 0 Active Comment on above: Take 100 mcg by mout h once daily. Take 75 mcg by mouth daily before breakfast. loperamide hydrochloride 2 mg oral capsule (17 sources) Opioid Agonist Start: 09-13-2021 Loperamide (Imodium [...] day Active take 1 capsule by mo ut every six hours as needed loperamide (IMODIUM [...] times daily. ondansetron 4 mg oral tablet (10 sources) Serotonin-3 Receptor Antagonist Start: 2 take 1 tablet by mouth every four hours Ondansetron Hcl (Zofran) 4 mg Tablet Active 4 MG PO Every 4 hours October 08, 2021 11:00pm take 1 tablet by courtney th every eight hours as needed for nausea and vomiting ondansetron (ZOFRAN) 4 mg tablet Take 1 tablet (4 mg total) by mouth every 8 (eight) hours as needed for nausea or vomiting. 0 Active Comment on above: Take by mouth every 8 hours as needed for nausea/vomiting. pantoprazole 40 mg delayed release oral tablet (19 sources) Proton Pump Inhibitor Start: 06-29-19 take 40 mg by mouth twice daily Pantoprazole Active 40 MG PO Twice daily June 27, 2020 11:00pm take 1 tablet by mouth once jose manuel y pantoprazole DR (PROTONIX) 40 mg tablet Take 40 mg by mouth once daily. 0 Active Comment on above: Take 40 mg by mouth twice daily. Take 40 mg by mouth once daily. polyethylene glycol 3350 31895 mg powder for oral solution (7 sources) Osmotic Laxative Start: 09-13-2021 Polyethylene Glycol 3350 (Miralax) 17 gram/dose Powder Active 17 GM PO Daily September 12, 2021 11:00pm Comment on above: Take by mouth once d aily. Dissolve dose in 4 - 8 ounces of liquid and take as directed. primidone 250 mg oral tablet (18 sources) Anti-epileptic Agent Start: 06-28-2020 take 250 mg by mouth twice daily Primidone Active 250 MG PO Twice daily June 27, 2020 11:00pm take 250 mg by mouth once daily PRIMIDONE ORAL Take 250 mg by mouth Daily at 0630. seizures 0 Active Comment on above: Take 1 tablet by courtney th twice daily. sodium chloride 1000 mg oral tablet (17 sources) Start: 10-09-2021 take 1000 mg by [...] times daily. sucralfate 1000 mg oral tablet (10 sources) Aluminum Complex Start: 09-13-2021 sucralfate (CARAFATE) 1 gram tablet take 1 tablet by mouth every six hours Sucralfate 1 GM 1 tablet on an empty stomach Orally FOUR TIMES A DAY Active Comment on above: Take 1 g by mouth fo ur times daily. traZODone hydrochloride 150 mg oral tablet (20 sources) Serotonin Reuptake Inhibitor Start: take 150 [...] every 4 hrs for 5 days KALEE: [id number] Oct, Not-Taking alendronic acid 70 mg oral [...] 20 MG PO Daily at 0800 30 July 04, 2020 11:00pm September 13, [...] mouth . menthol 0.04 mg/mg topical gel (9 sources) Start: 09-13-2021 End: 10-18-2021 Menthol (Biofreeze [...] once daily. Triamcinolone (8 sources) Corticosteroid Start: 02-15-20 22 Kenalog -40 mg May, 40 mg valbenazine 80 mg oral capsule (3 sources) Start: 06-29-19 End: 09-14-19 take 1 capsule by mouth once daily Valbenazine (Ingrezza) 80 mg Capsule Discontinued 80 MG PO Daily June 27, 2020 11:00pm September 13, 2021 11:01am Problems Active Problems Problem Classification Problem Date Documented Da te Episodic/Chronic Abdominal hernia (2 sources) Hiatal hernia; Translations: [Diaphragmatic hernia without obstruction or gangrene] Onset: 3 03-12-2023 Episodic Administrative/social admission (1 source) Lives in a [facility]; Translations: [Person living in residential institution] Episodic Anxiety disorders (20 sources) Anxiety state; Translations: [Anxiety state, unspecified] Onset: 2 07-05-2020 Chronic Chronic kidney disease (3 sources) Chronic kidney disease; Translations: [Chronic kidney disease, unspecified] Resolved: 3 09-14-2022 Chronic Deficiency and other anemia (1 source) Iron deficiency anemia; Translations: [Iron deficiency anemia, unspecified] 05-14-2023 Episodic Disorders of lipid metabolism (20 sources) Hyperlipidemia; Translations: [Other and unspecified hyperlipidemia] Onset: 2 Resolved: 2 Chronic E Codes: Fall (4 sources) Unspecified fall, initial encounter; Translations: [Other fall on same level, initial encounter] Onset: 2 Episodic Esophageal disorders (3 sources) Gastro-esophageal reflux disease without esophagitis; Translations: [Gastroesophageal reflux disease] Onset: 3 10-19-2022 Chronic Essential hypertension (16 sources) Benign essential hypertension; Translations: [Benign essential hypertension] Onset: 1 Resolved: 2 Chronic Gastrointestinal hemorrhage (4 sources) Hemorrhage of anus [...] 2 Chronic Other aftercare (1 source) Other skilled nursing (current) drug therapy; Translations: [OTH SOCIAL RESEARCH ASSISTANT CURRENT DRUG THERAPY] Onset: 3 Episodic Other bone disease and musculoskeletal deformities (2 sources) Idiopathic aseptic necrosis of left femur; Translations: [Idiopathic aseptic necrosis of left femur] Onset: 3 Chronic Other connective tissue disease (10 sources) History of reverse prosthetic total arthroplasty of right shoulder; Translations: [Presence of right artificial shoulder joint] Onset: 4 05-14-2023 Chronic Other connective tissue disease (6 sources) Presence of right artificial shoulder joint; Translations: [PRESENCE RT ARTIFICIAL SHOULDER JNT] Onset: 2 Resolved: 2 Chronic Other connective tissue disease (3 sources) Rhabdomyolysis; Translations: [Rhabdomyolysis] 06-30-2020 Episodic Other diseases of kidney and ureters (3 sources) Hydronephrosis; Translations: [Unspecified hydronephrosis] 06-30-2020 Episodic Other endocrine disorders (2 sources) Syndrome of inappropriate vasopressin secretion; Translations: [Syndrome of inappropriate secretion of antidiuretic hormone] Onset: 3 09-14-2022 Chronic Other endocrine disorders (2 sources) Hypoglycemia; Translations: [Hypoglycemia, unspecified] Onset: 3 09-14-2022 Chronic Other hereditary and degenerative nervous system conditions (2 sources) Orofacial dyskinesia; 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 Other hereditary and degenerative nervous system conditions (1 source) Restless legs syndrome; Translations: [RESTLESS LEGS SYNDROME] Onset: 3 Chronic Other hereditary and degenerative nervous system conditions (3 sources) Movement disorder; Translations: [Extrapyramidal and movement disorder, unspecified] Onset: 2 04-14-2023 Chronic Other hereditary and degenerative nervous system conditions (3 sources) Tardive dyskinesia; Translations: [Drug induced subacute [...] physiological tremor; Translations: [Tremor, unspecified] Episodic Other nervous system disorders (3 sources) Multifactorial gait problem; Translations: [Other abnormalities of gait and mobility] Onset: 2 03-23-2022 Episodic Other non-traumatic joint disorders (2 sources) [...] Documented Date Episodic/Chronic Anal and rectal conditions (3 sources) Rectal prolapse; Translations: [Rectal prolapse] Onset: 02-04-2021 05-18-2022 Episodic Deficiency and other anemia (1 source) Anemia, unspecified Onset: 03-22-2021 Resolved: 03-22-2021 Episodic Deficiency and other anemia (2 sources) Anemia; Translations: [Anemia, unspecified] Onset: 03-23-2022 03-23-2022 Episodic Fluid and electrolyte disorders (12 sources) Hypo-osmolality and hyponatremia; Translations: [Acute hyponatremia] Onset: 12-23-2020 Resolved: 12-06-2021 Episodic Fracture of neck of femur (hip) (2 sources) Closed fracture of neck of femur; Translations: [Fracture of unspecified part of neck of unspecified femur, initial encounter for closed fracture] Onset: 06-16-2020 02-03-2021 Episodic Nausea and vomiting (6 sources) Nausea; Translations: [Nausea with vomiting, unspecified] Onset: 02-23-2022 Episodic Other connective tissue disease (15 sources) Unspecified rotator cuff tear or rupture of right shoulder, not specified as traumatic; Translations: [Tear of right rotator cuff, unspecified tear extent, unspecified whether traumatic] Onset: 05-30-2021 Resolved: 12-04-2021 Episodic Other connective tissue disease (2 sources) Swelling of lower limb; Translations: [Other specified soft tissue disorders] Onset: 12-22-2020 12-22-2020 Episodic Other connective tissue disease (2 sources) Muscle weakness; Translations: [Muscle weakness (generalized)] Onset: 03-23-2022 03-23-2022 Episodic Other diseases of kidney and ureters (2 sources) Unspecified hydronephrosis Onset: 03-22-2021 Resolved: 12-06-2021 Episodic Other non-traumatic joint disorders (6 sources) Pain in right shoulder; Translations: [PAIN IN RIGHT SHOULDER] Onset: 05-30-2021 Resolved: 05-30-2021 Episodic Other non-traumatic joint disorders (2 sources) Pain of left hip joint; Translations: [Pain in left hip] Onset: 06-16-2020 02-03-2021 Episodic Other nutritional; endocrine; and metabolic disorders (1 source) Abnormal weight loss Onset: 03-22-2021 Resolved: 03-22-2021 Episodic Pneumonia (except that caused by tuberculosis or sexually transmitted disease) (2 sources) Pneumonia; Translations: [Pneumonia, unspecified organism] Resolved: 08-17-2022 [...] Test Name Value Interpretation Reference Range Facility [facility] 05-14-2023 CNOV Office Visit ([facility]) MELANIE ESPINOZA ([id number]) 1955 F Date Time Provider Department 05/14/23 4:00 PM TAI HINOJOSA [facility] During your visit today, we recorded the following information about you: Pulse Blood pressure Weight Height 81/minute 175/92 43.1 kg 1.6 m Tai Hinojosa MD 05/14/2023 4:40 PM Signed May 14, 2023 Tai Hinojosa MD [address] / [place] [address] Esteban Garza MD ([facility]) [address] [place] [address] Melanie Espinoza : 1955 Interval History: Melanie Espinoza is a 67 year old woman with a 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 The patient is seen with a mobile lounge driver. Her symptoms persist. Increasing the clonazepam did help the movements. The hip finally gave out and now needs a replacement. Allergies: ALLERGIES Allergen Reactions Erythromycin Unknown Current Medications: cyclobenzaprine (FLEXERIL) 10 mg tablet guaiFENesin-dextromet horphan (ROBITUSSIN DM) 100-10 mg/5 mL syrup Take 10 mL by mouth every 6 hours as needed. levothyroxine (SYNTHROID) 75 mcg tablet busPIRone (BUSPAR) 10 mg tablet Take 10 mg by mouth three times daily. gabapentin (NEURONTIN) 600 mg tablet Take 600 mg by mouth three times a day. amLODIPine (NORVASC) 5 mg tablet Take by mouth once daily. atorvastatin (LIPITOR) 40 mg tablet Take 40 mg by mouth once daily. menthol (BIOFREEZE, MENTHOL,) 4 % topical gel Apply to affected area three times daily as needed. calcium carbonate (CALTRATE) 600 mg calcium (1,500 mg) tab Take 600 mg by mouth. ferrous sulfate 325 mg (65 mg iron) tablet Take 325 mg by mouth daily with breakfast. Fluticasone Propionate 50 mcg/actuation diskus inhaler Inhale 1 Puff as instructed twice daily. loperamide (IMODIUM) 2 mg cap(s) Take 2 [...] 1 g by mouth four times daily. ondansetron (ZOFRAN) 4 mg tablet Take by mouth every 8 hours as needed for nausea/vomiting. traZODone (DESYREL) 100 mg tablet clonazePAM (KLONOPIN) 1 mg tablet Take 1.5 tablets by mouth three times daily for 90 days. [including bedtime] HYDROcodone-acetamino phen (NORCO) 5-325 mg per tablet Take 1 tablet by mouth every 8 hours as needed for pain. (Patient not taking: Reported on 01/08/2023) deutetrabenazine (AUSTEDO) 12 mg tab Take 2 tablets (24 mg) by mouth twice daily with meals. busPIRone (BUSPAR) 15 mg tablet Take 15 mg by mouth three times daily. (Patient not taking: Reported on 01/08/2023) alendronate (FOSAMAX) 70 mg tablet Take 70 [...] daily. (Patient not taking: Reported on 01/08/2023) acetaminophen (TYLENOL) 500 mg tablet Take 500 mg by mouth every 8 hours as needed. gabapentin (NEURONTIN) 300 mg capsule Take 1 capsule in the morning, one in early afternoon, and 2 in the evening primidone (MYSOLINE) 250 mg tablet Take 1 tablet by mouth twice daily. busPIRone (BUSPAR) 5 mg tablet Take 1 [...] or skin issues No other medical issues o Physical Examination: General Description of Patient: in no acute distress, but she is constantly moving - facial dyskinesias (grimacing, tongue thrusts); frequent short breaths taken Blood pressure 175/92, pulse 81, height 160 cm (5' 3 ), weight 43.1 kg (95 lb), SpO2 96%. FOCUSED NEUROLOGIC EXAMINATION: Mental Status: Alert and Oriented to person, place, and date Cranial Nerves: symmetric face; involuntary facial m (more content not included)... Normal [facility] Follow-Upon 04-04-2023 Follow-Up [id number] Melanie Espinoza 1955 F Date Provider Department Center 04/04/2023 293-TELLY PLAZA MP ORTHO MPORTHO Family History Family history unknown: Yes Level of Service:59212 [place] OFFICE/OUTPATIENT ESTABLISHED LOW MDM 20 MIN (GC) Reason for Visit and Comments: Pain [136] - L hip possible fracture, patient states she fell at [facility] last night Normal [facility] Office Visiton 03-04-2023 Follow-up visit [id number] Melanie Espinoza 1955 Date Provider Department Center 03/04/2023 HERVE CASTILLO MP ORTHO MPORTHO Family History Family history unknown: Yes Level of Service:83373 LA OFFICE/OUTPATIENT ESTABLISHED LOW MDM 20-29 MIN Reason for Visit and Comments: Pain [136] Normal [facility] CNOVon 01-08-2023 CNOV Office Visit ([facility]) MELANIE ESPINOZA ([id number]) 1955 F Date Time Provider Department 01/08/23 2:00 PM TAI HINOJOSA [facility] During your visit today, we recorded the following information about you: Pulse Blood pressure Weight Height 83/minute 150/72 44.5 kg 1.6 m Tai Hinojosa MD 01/08/2023 2:41 PM Signed January 08, 2023 Tai Hinojosa MD [address] / [place] [id number] Esteban Garza MD ([facility]) [address] [place] [address] Melanie Espinoza : 1955 Interval History: Melanie [...] no CP (more content not included)... Normal [facility] CNOVon 07-03-2022 CNOV Office Visit ([facility]) MELANIE ESPINOZA ([id number]) 1955 F Date Time Provider Department 07/03/22 12:00 PM TAI HINOJOSA During your visit today, we recorded the following information about you: Pulse Blood pressure Weight 88/minute 135/82 49.9 kg Tai Hinojosa MD 07/03/2022 12:35 PM Signed July 03, 2022 Tai Hinojosa MD [address] / [address] [address] Esteban Garza MD ([facility]) [place] [address] Melanie Espinoza : 1955 Interval History: Melanie [...] lifting he (more content not included)... Normal [facility] XR shoulder RT min 2V*on XR shoulder RT min 2V* [facility] Main [place] [address] [place] [address] XRay Report Signed Patient: Melanie Espinoza MR#: [id number] : 1955 Acct:[id number] Age/Sex: 67 / F ADM Date: 06/18/22 Loc: [facility] [place] Room: Type: [facility] Attending Dr: Stevenson Corbin MD Copies [...] Taylor Jr., D.O.06/18/2022 4:21 PM Dictation Location: [place] [address] Transcribed By: [facility] 06/18/22 162 Dictated By: Tai Taylor Jr, DO 06/18/221619 Signed By: 06/18/22 162 [facility] XR SHOULDER RT 2V or [...] SIMON ANDRADE Date: 2022-06-04 10:57 Normal [facility] CBC AUTO DIFFon 04-19-2022 BASO # 0.0 103/ul Normal 0.0-0.1 [facility] Comment on above: Performed By: #### C BC #### [facility] [address] [place] [address] Dr. Miranda Claudio Basophils/100 WBC (Bld) 0.2 % Normal 0.2-2.0 [facility] Comment on above: Performed By: #### C BC #### [facility] [address] [place] [address] Dr. Miranda Claudio EO # 0.0 103/ul Normal 0.0-0.7 [facility] Comment on above: Performed By: #### C BC #### [facility] [address] [address] [address] Miranda Claudio Eosinophils/100 WBC (Bld) 0.4 % Critically low 0.9-7.0 [facility] Comment on above: Performed By: #### C BC #### [facility] [address] [address] [address] Miranda Claudio Erythrocyte distribution width (RBC) [Ratio] 13.7 % Normal 11.0-15.0 [facility] Comment on above: Performed By: #### C BC #### [facility] [address] [place] [address] Dr. Miranda Claudio Hematocrit (Bld) [Volume fraction] 33.6 % Critically low 36.0-48.0 [facility] Comment on above: Performed By: #### C BC #### [facility] [address] [place] [address] Dr. Miranda Claudio Hemoglobin (Bld) [Mass/Vol] 11.4 g/dL Critically low 12.0-16.0 [facility] Comment on above: Performed By: #### C BC #### [facility] [address] [place] [address] Dr. Miranda Claudio IG # 0.02 10e3/ul Normal 0.00-0.03 [facility] Comment on above: Performed By: #### C BC #### [facility] [address] [place] [address] Dr. Miranda Claudio IG % 0.4 % Normal 0.0-0.5 [facility] Comment on above: Performed By: #### C BC #### [facility] [address] [place] [address] Dr. Miranda Claudio LYMPH # 0.9 103/ul Critically low 1.2-3.8 [facility] Comment on above: Performed By: #### C BC #### [facility] [address] [place] [address] Dr. Miranda Claudio Lymphocytes/100 WBC (Bld) 18.4 % Critically low 20.5-60.0 [facility] Comment on above: Performed By: #### C BC #### [facility] [address] [place] [address] Dr. Miranda Claudio MANUAL DIFF REQ NO Normal [facility] Comment on above: Performed By: #### C BC #### [facility] [address] [place] [address] Dr. Miranda Claudio MCH (RBC) [Entitic mass] 26.5 pg Critically low 26.7-34.0 [facility] Comment on above: Performed By: #### C BC #### [facility] [address] [place] [address] Dr. Miranda Claudio MCHC (RBC) [Mass/Vol] 33.9 g/dL Normal 29.9-35.2 [facility] Comment on above: Performed By: #### C BC #### [facility] [address] [place] [address] Dr. Miranda Claudio MCV (RBC) [Entitic vol] 78.0 fL Critically low 81.0-99.0 [facility] Comment on above: Performed By: #### C BC #### [facility] [address] [place] [address] Dr. Miranda Claudio MONO # 0.6 103/ul Normal 0.3-0.8 [facility] Comment on above: Performed By: #### C BC #### [facility] [address] [place] [address] Dr. Miranda Claudio Monocytes/100 WBC (Bld) 11.7 % Normal 1.7-12.0 [facility] Comment on above: Performed By: #### C BC #### [facility] [address] [place] [address] Dr. Miranda Claudio NEUT # 3.3 103/ul Normal 1.4-6.5 [facility] Comment on above: Performed By: #### C BC #### [facility] [address] [place] [address] Dr. Miranda Claudio Neutrophils/100 WBC (Bld) 68.9 % Normal 43.0-75.0 [facility] Comment on above: Performed By: #### C BC #### [facility] [address] [place] [address] Dr. Miranda Claudio Platelet mean volume (Bld) [Entitic vol] 8.1 fL Critically low 9.5-13.5 [facility] Comment on above: Performed By: #### C BC #### [facility] [address] [place] [address] Dr. Miranda Claudio PLT 394 103/ul Normal 150-450 [facility] Comment on above: Performed By: #### C BC #### [facility] [address] [place] [address] Dr. Miranda Claudio RBC 4.31 106/ul Normal 4.20-5.40 [facility] Comment on above: Performed By: #### C BC #### [facility] [address] [place] [address] Dr. Miranda Claudio WBC 4.8 103/ul Normal 4.0-11.0 [facility] Comment on above: Performed By: #### C BC #### [facility] [address] [place] [address] Dr. Miranda Claudio PROF 14(COMP METB)on 023 Albumin [Mass/Vol] 2.7 g/dL Critically low 3.4-5.0 [facility] Comment on above: Performed By: #### C MP #### [facility] [address] [place] [address] Dr. Miranda Claudio Albumin/Globulin [Mass ratio] 0.8 {ratio} Normal [facility] Comment on above: Performed By: #### C MP #### [facility] [address] [place] [address] Dr. Miranda Claudio ALP [Catalytic activity/Vol] 64 U/L Normal 46-116 [facility] Comment on above: Performed By: #### C MP #### [facility] [address] [place] [address] Dr. Miranda Claudio ALT [Catalytic activity/Vol] 33 U/L Normal 14-59 [facility] Comment on above: Performed By: #### C MP #### [facility] [address] [place] [address] Dr. Miranda Claudio Anion gap [Moles/Vol] 12.1 mmol/L Normal [facility] Comment on above: Performed By: #### C MP #### [facility] [address] [place] [address] Dr. Miranda Claudio AST [Catalytic activity/Vol] 64 U/L Critically high 15-37 [facility] Comment on above: Performed By: #### C MP #### [facility] [address] [address] [address] Miranda Claudio Bilirubin [Mass/Vol] 0.2 mg/dL Normal 0.2-1.0 [facility] Comment on above: Performed By: #### C MP #### [facility] [address] [address] [address] Miranda Claudio Calcium [Mass/Vol] 7.9 mg/dL Critically low 8.5-10.1 [facility] Comment on above: Performed By: #### C MP #### [facility] [address] [place] [address] Dr. Miranda Claudio Chloride [Moles/Vol] 98 mmol/L Normal 98-107 [facility] Comment on above: Performed By: #### C MP #### [facility] [address] [place] [address] Dr. Miranda Claudio CO2 [Moles/Vol] 26.7 mmol/L Normal 21.0-32.0 [facility] Comment on above: Performed By: #### C MP #### [facility] [address] [place] [address] Dr. iMranda Claudio Creatinine [Mass/Vol] 0.44 mg/dL Critically low 0.55-1.02 [facility] Comment on above: Performed By: #### C MP #### [facility] [address] [place] [address] Dr. Miranda Claudio EGFR-AF MALIAN >60 Normal >=60 [facility] Comment on above: Performed By: #### C MP #### [facility] [address] [place] [address] Dr. Miranda Claudio EGFR-NON AF MALIAN >60 Normal >=60 [facility] Comment on above: Performed By: #### C MP #### [facility] [address] [place] [address] Dr. Miranda Claudio Globulin (S) [Mass/Vol] 3.3 g/dL Normal [facility] Comment on above: Performed By: #### C MP #### [facility] [address] [place], [place] [id number] Dr. Miranda Claudio Glucose [Mass/Vol] 78 mg/dL Normal 74-106 [facility] Comment on above: Performed By: #### C MP #### [facility] [address] [address] [address] Miranda Claudio Potassium [Moles/Vol] 2.8 mmol/L Critically low 3.5-5.1 [facility] Comment on above: Performed By: #### C MP #### [facility] [address] [address] [address] Miranda Claudio Protein [Mass/Vol] 6.0 g/dL Critically low 6.4-8.2 [facility] Comment on above: Performed By: #### C MP #### [facility] [address] [address] [address] Miranda Claudio Sodium [Moles/Vol] 134 mmol/L Critically low 136-145 [facility] Comment on above: Performed By: #### C MP #### [facility] [address] [address] [address] Miranda Claudio Urea nitrogen [Mass/Vol] 4.0 mg/dL Critically low 7.0-18.0 [facility] Comment on above: Performed By: #### C MP #### [facility] [address] [address] [address] Miranda Claudio Urea nitrogen/Creatinine [Mass ratio] 9.1 mg/mg Normal [facility] Comment on above: Performed By: #### C MP #### [facility] [address] [address] [address] Miranda Claudio XR CHEST 1 Von [...] CM RAMIREZ Date: 2022-04-19 07:08 Normal [facility] CARDIAC EMMA ADMITon 022 CK [Catalytic activity/Vol] 412 U/L Critically high 26-192 [facility] Comment on above: Performed By: #### C MADM, CMP ####[facility] [address] [address]Dr. Miranda Claudio CK.MB [Mass/Vol] 19.37 ng/mL Critically high <=3.60 [facility] Comment on above: Performed By: #### C JESS, CMP ####[facility] [address] [place], [place] [address]Dr. Miranda Claudio HSTROP 5.9 pg/mL Normal 4.0-51.3 [facility] Comment on above: Result Comment: CUT- OFF POINTS HAVE BEEN ESTABLISHED BASED ON THE FOURTH UNIVERSAL DEFINITIONS OF MYOCARDIAL INFARCTION. THE UPPER REFERENCE LIMIT (URL) OF TROPONIN, DEFINED THE 99TH PERCENTILE OF cTnI DISTRIBUTION IN A REFERENCE POPULATION, HAS BEEN CONFIRMED THE DECISION THRESHOLD FOR OK DIAGNOSIS. Performed By: #### C JESS, CMP ####[facility] [address] [address]Dr. Miranda Claudio MARKEL 82 ng/mL Normal 9-82 [facility] Comment on above: Performed By: #### C JASWINDERM, CMP ####[facility] [address] [address]DrSofía Claudio CBC AUTO DIFFon 03-23-2022 BASO # 0.1 103/ul Normal 0.0-0.1 [facility] Comment on above: Performed By: #### C BC ####[facility] [address] [address]DrSofía Claudio Basophils/100 WBC (Bld) 0.5 % Normal 0.2-2.0 [facility] Comment on above: Performed By: #### C BC ####[facility] [address] [address]DrSofía Claudio EO # 0.5 103/ul Normal 0.0-0.7 [facility] Comment on above: Performed By: #### C BC ####[facility] [address] [address]Dr. Miranda González Eosinophils/100 WBC (Bld) 4.1 % Normal 0.9-7.0 [facility] Comment on above: Performed By: #### C BC ####[facility] [address] [place], [place] [address]Dr. Miranda Claudio Erythrocyte distribution width (RBC) [Ratio] 13.9 % Normal 11.0-15.0 [facility] Comment on above: Performed By: #### C BC ####[facility] [address] [place], [place] [address]Dr. Miranda Claudio Hematocrit (Bld) [Volume fraction] 35.1 % Critically low 36.0-48.0 [facility] Comment on above: Performed By: #### C BC ####[facility] [address] [place], [place] [address]Dr. Miranda Claudio Hemoglobin (Bld) [Mass/Vol] 11.7 g/dL Critically low 12.0-16.0 [facility] Comment on above: Performed By: #### C BC ####[facility] [address] [place], [place] [address]Dr. Renettadeon Claudio IG # 0.05 10e3/ul Critically high 0.00-0.03 [facility] Comment on above: Performed By: #### C BC ####[facility] [address] [place], [place] [address]Dr. Miranda Claudio IG % 0.4 % Normal 0.0-0.5 [facility] Comment on above: Performed By: #### C BC ####[facility] [address] [place], [place] [address]Dr. Miranda Claudio LYMPH # 1.5 103/ul Normal 1.2-3.8 [facility] Comment on above: Performed By: #### C BC ####[facility] [address] [place], [place] [address]Dr. Miranda Claudio Lymphocytes/100 WBC (Bld) 12.7 % Critically low 20.5-60.0 [facility] Comment on above: Performed By: #### C BC ####[facility] [address] [address]DrSofía Claudio MANUAL DIFF REQ NO Normal [facility] Comment on above: Performed By: #### C BC ####[facility] [address] [address]DrSofía Claudio MCH (RBC) [Entitic mass] 26.1 pg Critically low 26.7-34.0 [facility] Comment on above: Performed By: #### C BC ####[facility] [address] [place], [place] [address]DrSofía Claudio MCHC (RBC) [Mass/Vol] 33.3 g/dL Normal 29.9-35.2 [facility] Comment on above: Performed By: #### C BC ####[facility] [address] [place], [place] [address]DrSofía Claudio MCV (RBC) [Entitic vol] 78.3 fL Critically low 81.0-99.0 [facility] Comment on above: Performed By: #### C BC ####[facility] [address] [place], [place] [address]DrSofía Claudio MONO # 1.2 103/ul Critically high 0.3-0.8 [facility] Comment on above: Performed By: #### C BC ####[facility] [address] [place], [place] [address]DrSofía Claudio Monocytes/100 WBC (Bld) 10.5 % Normal 1.7-12.0 [facility] Comment on above: Performed By: #### C BC ####[facility] [address] [place], [place] [address]DrSofía Claudio NEUT # 8.3 103/ul Critically high 1.4-6.5 [facility] Comment on above: Performed By: #### C BC ####[facility] [address] [place], [place] [address]DrSofía Claudio Neutrophils/100 WBC (Bld) 71.8 % Normal 43.0-75.0 [facility] Comment on above: Performed By: #### C BC ####[facility] [address] [address]Dr. Miranda Claudio Platelet mean volume (Bld) [Entitic vol] 8.5 fL Critically low 9.5-13.5 [facility] Comment on above: Performed By: #### C BC ####[facility] [address] [address]Dr. Miranda Claudio PLT 349 103/ul Normal 150-450 [facility] Comment on above: Performed By: #### C BC ####[facility] [address] [address]Dr. Miranda Claudio RBC 4.48 106/ul Normal 4.20-5.40 [facility] Comment on above: Performed By: #### C BC ####[facility] [address] [place], [place] [address]Dr. Miranda Claudio WBC 11.6 103/ul Critically high 4.0-11.0 [facility] Comment on above: Performed By: #### C BC ####[facility] [address] [place], [place] [address]Dr. Miranda Claudio [facility] SARS-CoV-2 (COVID-19) RNA LARY+probe Ql (Unsp spec) Not detected Normal NOT DETECTED [facility] Comment on above: Result Comment: When [...] for this test is supported by the [place] of Health and Human Service's declaration that [...] used). Performed By: #### C VDTB #### [facility] [address] [place] [address] Dr. Miranda Claudio ER URINE PROFILEon 2 Bilirubin Ql (U) Negative Normal NEGATIVE [facility] Comment on above: Performed By: #### E RUR #### [facility] [address] [place] [address] Dr. Miranda Claudio Clarity (U) CLEAR Normal CLEAR [facility] Comment on above: Performed By: #### E RUR #### [facility] [address] [place] [address] Dr. Miranda Claudio Color (U) LT. YELLOW Normal YELLOW [facility] Comment on above: Performed By: #### E RUR #### [facility] [address] [place] [address] Dr. Miranda Claudio ERUAHD A micrscopic examination will be performed if indicated. Normal [facility] Comment on above: Performed By: #### E RUR #### [facility] [address] [place] [address] Dr. Miranda Claudio Glucose Ql (U) Negative Normal NEGATIVE [facility] Comment on above: Performed By: #### E RUR #### [facility] [address] [place] [address] Dr. Miranda Claudio Hemoglobin Ql (U) Negative Normal NEGATIVE [facility] Comment on above: Performed By: #### E RUR #### [facility] [address] [place] [address] Dr. Miranda Claudio Ketones Ql (U) Negative Normal NEGATIVE [facility] Comment on above: Performed By: #### E RUR #### [facility] [address] [place] [address] Dr. Miranda Claudio LEUKOCYTES Negative Normal NEGATIVE [facility] Comment on above: Performed By: #### E RUR #### [facility] [address] [place] [address] Dr. Miranda Claudio Nitrite Ql (U) Negative Normal NEGATIVE [facility] Comment on above: Performed By: #### E RUR #### [facility] [address] [place] [address] Dr. Miranda Claudio pH (U) 6.5 [pH] Normal 5-9 [facility] Comment on above: Performed By: #### E RUR #### [facility] [address] [place] [address] Dr. Miranda Claudio SPEC GRAVITY <=1.005 Abnormal 1.005-<=1.025 [facility] Comment on above: Performed By: #### E RUR #### [facility] [address] [place] [address] Dr. Miranda Claudio UA PROTEIN Negative Normal NEGATIVE/ TRACE [facility] Comment on above: Performed By: #### E RUR #### [facility] [address] [place] [address] Dr. Miranda Claudio UR MICRO IND NOT INDICATED Normal [facility] Comment on above: Performed By: #### E RUR #### [facility] [address] [place] [address] Dr. Miranda Claudio Urobilinogen Qn (U) 0.2 {Muriel'U}/dL Normal 0.2 - 1. 0 [facility] Comment on above: Performed By: #### E RUR #### [facility] [address] [place] [address] Dr. Miranda Claudio LACTATE/LACTIC ACIDon 2021 Lactate [Moles/Vol] 0.9 mmol/L Normal 0.4-1.9 [facility] Comment on above: Performed By: #### L ACT #### [facility] [address] [place] [address] Dr. Miranda Claudio PROF 14(COMP METB)on 022 Albumin [Mass/Vol] 3.5 g/dL Normal 3.4-5.0 [facility] Comment on above: Performed By: #### C MADM, CMP #### [facility] [address] [address] [address] Miranda Claudio Albumin/Globulin [Mass ratio] 1.0 {ratio} Normal [facility] Comment on above: Performed By: #### C JASWINDERM, CMP #### [facility] [address] [address] [address] Miranda Claudio ALP [Catalytic activity/Vol] 73 U/L Normal 46-116 [facility] Comment on above: Performed By: #### C JASWINDERM, CMP #### [facility] [address] [address] [address] Miranda Claudio ALT [Catalytic activity/Vol] 16 U/L Normal 14-59 [facility] Comment on above: Performed By: #### C JASWINDERM, CMP #### [facility] [address] [address] [address] Miranda Claudio Anion gap [Moles/Vol] 14.4 mmol/L Normal [facility] Comment on above: Performed By: #### C JESS, CMP #### [facility] [address] [address] [address] Miranda Claudio AST [Catalytic activity/Vol] 26 U/L Normal 15-37 [facility] Comment on above: Performed By: #### C JESS, CMP #### [facility] [address] [address] [address] Miranda Claudio Bilirubin [Mass/Vol] 0.2 mg/dL Normal 0.2-1.0 [facility] Comment on above: Performed By: #### C JESS, CMP #### [facility] [address] [address] [address] Miranda Claudio Calcium [Mass/Vol] 8.3 mg/dL Critically low 8.5-10.1 [facility] Comment on above: Performed By: #### C JASWINDERM, CMP #### [facility] [address] [address] [address] Miranda Claudio Chloride [Moles/Vol] 93 mmol/L Critically low 98-107 [facility] Comment on above: Performed By: #### C JESS, CMP #### [facility] [address] [address] [address] Miranda Claudio CO2 [Moles/Vol] 23.5 mmol/L Normal 21.0-32.0 [facility] Comment on above: Performed By: #### C JESS, CMP #### [facility] [address] [address] [address] Miranda Claudio Creatinine [Mass/Vol] 0.54 mg/dL Critically low 0.55-1.02 [facility] Comment on above: Performed By: #### C JASWINDERM, CMP #### [facility] [address] [address] [address] Miranda Claudio EGFR-AF MALIAN >60 Normal >=60 [facility] Comment on above: Performed By: #### C JESS, CMP #### [facility] [address] [address] [address] Miranda Claudio EGFR-NON AF MALIAN >60 Normal >=60 [facility] Comment on above: Performed By: #### C JESS, CMP #### [facility] [address] [address] [address] Miranda Claudio Globulin (S) [Mass/Vol] 3.6 g/dL Normal [facility] Comment on above: Performed By: #### C JESS, CMP #### [facility] [address] [address] [address] Miranda Claudio Glucose [Mass/Vol] 91 mg/dL Normal 74-106 [facility] Comment on above: Performed By: #### C JESS, CMP #### [facility] [address] [address] [address] Miranda Claudio Potassium [Moles/Vol] 3.9 mmol/L Normal 3.5-5.1 [facility] Comment on above: Performed By: #### C JESS, CMP #### [facility] [address] [address] [address] Miranda Claudio Protein [Mass/Vol] 7.1 g/dL Normal 6.4-8.2 [facility] Comment on above: Performed By: #### C JESS, CMP #### [facility] [address] [place], [place] [address] Dr. Miranda Claudio Sodium [Moles/Vol] 127 mmol/L Critically low 136-145 [facility] Comment on above: Performed By: #### C JESS, CMP #### [facility] [address] [place], [place] [address] Dr. Miranda Claudio Urea nitrogen [Mass/Vol] 8.0 mg/dL Normal 7.0-18.0 [facility] Comment on above: Performed By: #### C JESS, CMP #### [facility] [address] [place], [place] [address] Dr. Miranda Claudio Urea nitrogen/Creatinine [Mass ratio] 14.8 mg/mg Normal [facility] Comment on above: Performed By: #### C JESS, CMP #### [facility] [address] [place], [place] [address] Dr. Miranda Claudio TYPE AND SCREENon 03-23-2022 TYPE AND SCREEN Negative Normal [facility] Comment on above: Performed By: #### T NS ####[facility] [address] [place], [place] [address]LxDr. Miranda Claudio NM HEPATOBILIARY SCAN W EFon [...] MESHA CARRASCO Date: 2022-02-23 11:03 Normal [facility] XR shoulder RT min 2V*on XR shoulder RT min 2V* [facility] [place] [address] [place] [address] XRay Report Signed Patient: Melanie Espinoza MR#: [id number] 6 : 1955 Acct:[id number] Age/Sex: 66 / F ADM Date: 01/29/22 Loc: [facility] [place] Room: Type: [facility] Attending Dr: Stevenson Corbin MD Copies [...] Ligia Carrasquillo M.D.01/29/2022 2:27 PM Dictation Location: [place] [address] Transcribed By: [facility] [facility] 01/29/221426 Dictated By: Ligia Carrasquillo MD 01/29/221424 Signed By: 01/29/22 142 [facility] CBC AUTO DIFFon 01-27-2022 BASO # 0.1 103/ul Normal 0.0-0.1 [facility] Comment on above: Performed By: #### C BC #### [facility] [address] [address] [address] Miranda Claudio Basophils/100 WBC (Bld) 0.7 % Normal 0.2-2.0 [facility] Comment on above: Performed By: #### C BC #### [facility] [address] [place] [address] Dr. Miranda Claudio EO # 0.4 103/ul Normal 0.0-0.7 [facility] Comment on above: Performed By: #### C BC #### [facility] [address] [place] [address] Dr. Miranda Claudio Eosinophils/100 WBC (Bld) 4.0 % Normal 0.9-7.0 [facility] Comment on above: Performed By: #### C BC #### [facility] [address] [place] [address] Dr. Miranda Claudio Erythrocyte distribution width (RBC) [Ratio] 14.2 % Normal 11.0-15.0 [facility] Comment on above: Performed By: #### C BC #### [facility] [address] [place] [address] Dr. Miranda Claudio Hematocrit (Bld) [Volume fraction] 39.9 % Normal 36.0-48.0 [facility] Comment on above: Performed By: #### C BC #### [facility] [address] [place] [address] Dr. Miranda Claudio Hemoglobin (Bld) [Mass/Vol] 13.0 g/dL Normal 12.0-16.0 [facility] Comment on above: Performed By: #### C BC #### [facility] [address] [place] [address] Dr. Miranda Claudio IG # 0.03 10e3/ul Normal 0.00-0.03 [facility] Comment on above: Performed By: #### C BC #### [facility] [address] [place] [address] Dr. Miranda Claudio IG % 0.3 % Normal 0.0-0.5 [facility] Comment on above: Performed By: #### C BC #### [facility] [address] [place] [address] Dr. Miranda Claudio LYMPH # 2.2 103/ul Normal 1.2-3.8 [facility] Comment on above: Performed By: #### C BC #### [facility] [address] [place] [address] Dr. Miranda Claudio Lymphocytes/100 WBC (Bld) 23.6 % Normal 20.5-60.0 [facility] Comment on above: Performed By: #### C BC #### [facility] [address] [place] [address] Dr. Miranda Claudio MANUAL DIFF REQ NO Normal [facility] Comment on above: Performed By: #### C BC #### [facility] [address] [place] [address] Dr. Miranda Claudio MCH (RBC) [Entitic mass] 27.1 pg Normal 26.7-34.0 [facility] Comment on above: Performed By: #### C BC #### [facility] [address] [place] [address] Dr. Miranda Claudio MCHC (RBC) [Mass/Vol] 32.6 g/dL Normal 29.9-35.2 [facility] Comment on above: Performed By: #### C BC #### [facility] [address] [place] [address] Dr. Miranda Claudio MCV (RBC) [Entitic vol] 83.1 fL Normal 81.0-99.0 [facility] Comment on above: Performed By: #### C BC #### [facility] [address] [place] [address] Dr. Miranda Claudio MONO # 0.8 103/ul Normal 0.3-0.8 [facility] Comment on above: Performed By: #### C BC #### [facility] [address] [place] [address] Dr. Miranda Claudio Monocytes/100 WBC (Bld) 8.5 % Normal 1.7-12.0 [facility] Comment on above: Performed By: #### C BC #### [facility] [address] [place] [address] Dr. Miranda Claudio NEUT # 5.9 103/ul Normal 1.4-6.5 [facility] Comment on above: Performed By: #### C BC #### [facility] [address] [place] [address] Dr. Miranda Claudio Neutrophils/100 WBC (Bld) 62.9 % Normal 43.0-75.0 [facility] Comment on above: Performed By: #### C BC #### [facility] [address] [place] [address] Dr. Miranda Claudio Platelet mean volume (Bld) [Entitic vol] 7.6 fL Critically low 9.5-13.5 [facility] Comment on above: Performed By: #### C BC #### [facility] [address] [address] [address] Miranda Claudio PLT 405 103/ul Normal 150-450 [facility] Comment on above: Performed By: #### C BC #### [facility] [address] [address] [address] Miranda Claudio RBC 4.80 106/ul Normal 4.20-5.40 [facility] Comment on above: Performed By: #### C BC #### [facility] [address] [place] [address] Dr. Miranda Claudio WBC 9.4 103/ul Normal 4.0-11.0 [facility] Comment on above: Performed By: #### C BC #### [facility] [address] [place] [address] Dr. Miranda Claudio ER URINE PROFILEon 2 Bilirubin Ql (U) Negative Normal NEGATIVE [facility] Comment on above: Performed By: #### U MICRO, ERUR ####[facility] [address] [place], [place] [address]DrSofía Claudio Clarity (U) CLEAR Normal CLEAR [facility] Comment on above: Performed By: #### U MICRO, ERUR ####[facility] [address] [address]DrSofía Claudio Color (U) LT. YELLOW Normal YELLOW [facility] Comment on above: Performed By: #### U MICRO, ERUR ####[facility] [address] [address]DrSofía Claudio ERUAHD A micrscopic examination will be performed if indicated. Normal [facility] Comment on above: Performed By: #### U MICRO, ERUR ####[facility] [address] [address]DrSofía Claudio Glucose Ql (U) Negative Normal NEGATIVE [facility] Comment on above: Performed By: #### U MICRO, ERUR ####[facility] [address] [address]Dr. Renettadeon Claudio Hemoglobin Ql (U) TRACE-LYSED Abnormal NEGATIVE [facility] Comment on above: Performed By: #### U MICRO, ERUR ####[facility] [address] [address]Dr. Miarnda Claudio Ketones Ql (U) Negative Normal NEGATIVE [facility] Comment on above: Performed By: #### U MICRO, ERUR ####[facility] [address] [place], [place] [address]Dr. Miranda Claudio LEUKOCYTES Negative Normal NEGATIVE [facility] Comment on above: Performed By: #### U MICRO, ERUR ####[facility] [address] [place], [place] [address]Dr. Miranda Claudio Nitrite Ql (U) Negative Normal NEGATIVE [facility] Comment on above: Performed By: #### U MICRO, ERUR ####[facility] [address] [place], [place] [address]Dr. Miranda Claudio pH (U) 7.0 [pH] Normal 5-9 [facility] Comment on above: Performed By: #### U MICRO, ERUR ####[facility] [address] [place], [place] [address]Dr. Miranda Claudio SPEC GRAVITY <=1.005 Abnormal 1.005-<=1.025 [facility] Comment on above: Performed By: #### U MICRO, ERUR ####[facility] [address] [place], [place] [address]Dr. Miranda Claudio UA PROTEIN Negative Normal NEGATIVE/ TRACE [facility] Comment on above: Performed By: #### U MICRO, ERUR ####[facility] [address] [place], [place] [address]Dr. Miranda Claudio UR MICRO IND INDICATED Normal [facility] Comment on above: Performed By: #### U MICRO, ERUR ####[facility] [address] [place], [place] [address]Dr. Miranda Claudio Urobilinogen Qn (U) 0.2 {Muriel'U}/dL Normal 0.2 - 1. 0 [facility] Comment on above: Performed By: #### U MICRO, ERUR ####[facility] [address] [address]Dr. Miranda Claudio PROF 14(COMP METB)on 01-27-2 022 Albumin [Mass/Vol] 3.5 g/dL Normal 3.4-5.0 [facility] Comment on above: Performed By: #### C MP #### [facility] [address] [address] [address] Miranda Claudio Albumin/Globulin [Mass ratio] 1.0 {ratio} Normal [facility] Comment on above: Performed By: #### C MP #### [facility] [address] [place] [address] Dr. Miranda Claudio ALP [Catalytic activity/Vol] 66 U/L Normal 46-116 [facility] Comment on above: Performed By: #### C MP #### [facility] [address] [place] [address] Dr. Miranda Claudio ALT [Catalytic activity/Vol] 15 U/L Normal 14-59 [facility] Comment on above: Performed By: #### C MP #### [facility] [address] [place] [address] Dr. Miranda Claudio Anion gap [Moles/Vol] 7.1 mmol/L Normal [facility] Comment on above: Performed By: #### C MP #### [facility] [address] [address] [address] Miranda Claudio AST [Catalytic activity/Vol] 16 U/L Normal 15-37 [facility] Comment on above: Performed By: #### C MP #### [facility] [address] [place] [address] Dr. Miranda Claudio Bilirubin [Mass/Vol] 0.1 mg/dL Critically low 0.2-1.0 [facility] Comment on above: Performed By: #### C MP #### [facility] [address] [place] [address] Dr. Miranda Claudio Calcium [Mass/Vol] 9.1 mg/dL Normal 8.5-10.1 [facility] Comment on above: Performed By: #### C MP #### [facility] [address] [place] [address] Dr. Miranda Claudio Chloride [Moles/Vol] 100 mmol/L Normal 98-107 [facility] Comment on above: Performed By: #### C MP #### [facility] [address] [place] [address] Dr. Miranda Claudio CO2 [Moles/Vol] 30.7 mmol/L Normal 21.0-32.0 [facility] Comment on above: Performed By: #### C MP #### [facility] [address] [place] [address] Dr. Miranda Claudio Creatinine [Mass/Vol] 0.64 mg/dL Normal 0.55-1.02 [facility] Comment on above: Performed By: #### C MP #### [facility] [address] [place] [address] Dr. Miranda Claudio EGFR-AF MALIAN >60 Normal >=60 [facility] Comment on above: Performed By: #### C MP #### [facility] [address] [place] [address] Dr. Miranda Claudio EGFR-NON AF MALIAN >60 Normal >=60 [facility] Comment on above: Performed By: #### C MP #### [facility] [address] [place] [address] Dr. Miranda Claudio Globulin (S) [Mass/Vol] 3.6 g/dL Normal [facility] Comment on above: Performed By: #### C MP #### [facility] [address] [place] [address] Dr. Miranda Claudio Glucose [Mass/Vol] 68 mg/dL Critically low 74-106 [facility] Comment on above: Performed By: #### C MP #### [facility] [address] [place] [address] Dr. Miranda Claudio Potassium [Moles/Vol] 3.8 mmol/L Normal 3.5-5.1 [facility] Comment on above: Performed By: #### C MP #### [facility] [address] [address] [address] Miranda Claudio Protein [Mass/Vol] 7.1 g/dL Normal 6.4-8.2 [facility] Comment on above: Performed By: #### C MP #### [facility] [address] [address] [address] Miranda Claudio Sodium [Moles/Vol] 134 mmol/L Critically low 136-145 [facility] Comment on above: Performed By: #### C MP #### [facility] [address] [address] [address] Miranda Claudio Urea nitrogen [Mass/Vol] 14.0 mg/dL Normal 7.0-18.0 [facility] Comment on above: Performed By: #### C MP #### [facility] [address] [address] [address] Miranda Claudio Urea nitrogen/Creatinine [Mass ratio] 21.9 mg/mg Normal [facility] Comment on above: Performed By: #### C MP #### [facility] [address] [address] [address] Miranda Claudio URINE MICROSCOPIC ONLYon BACTERIA NONE SEEN Normal NONE SEEN [facility] Comment on above: Performed By: #### U MICRO, ERUR ####[facility] [address] [address]Dr. Miranda Claudio Bacteria identified Cx Nom (U) NOT INDICATED Normal [facility] Comment on above: Performed By: #### U MICRO, ERUR ####[facility] [address] [address] Miranda Claudio CAST NONE SEEN Normal NONE SEEN [facility] Comment on above: Performed By: #### U MICRO, ERUR ####[facility] [address] [address]Dr. Miranda Claudio Crystals LM Nom (Urine sed) NONE SEEN Normal NONE SEEN [facility] Comment on above: Performed By: #### U MICRO, ERUR ####[facility] [address] [address]Dr. Miranda Claudio Epithelial cells LM Ql (Urine sed) NONE SEEN Normal NONE SEEN /RARE [facility] Comment on above: Performed By: #### U MICRO, ERUR ####[facility] [address] [address] Miranda Claudio MUCOUS SMALL Abnormal NONE SEEN [facility] Comment on above: Performed By: #### U MICRO, ERUR ####[facility] [address] [address]Dr. Miranda Claudio RBC 0-2 Normal 0-2 [facility] Comment on above: Performed By: #### U MICRO, ERUR ####[facility] [address] [address]Dr. Miranda Claudio WBC NONE SEEN Normal NONE SEEN [facility] Comment on above: Performed By: #### U MICRO, ERUR ####[facility] [address] [address]Dr. Miranda Claudio XR CHEST 1 Von 01-27-2022 [...] CM ROBLES Date: 2022-01-27 20:30 Normal [facility] XR SHOULDER RT 2V or >on XR SHOULDER RT 2V or > IMAGES REVIEWED: XR SHOULDER RT 2V or > COMPARISON: 12/27/2021. CLINICAL INDICATION: Pain FINDINGS/IMPRESSION: 1. No evidence of acute osseous abnormality of the right shoulder. 2. 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 3. Old right rib fractures. 4. Osteopenia. Electronically authenticated by: SARAH MOMIN Date: 2022-01-27 20:42 Normal [facility] XR SCAPULA RTon 12-27-2021 XR SCAPULA [...] by: SANTIAGO HELMS Date: 2021-12-27 12:55 Normal [facility] XR shoulder RT min 2V*on XR shoulder RT min 2V* [facility] Main [address] [address] XRay Report Signed Patient: Melanie Espinoza MR#: [id number] 6 : 1955 Acct:[id number] Age/Sex: 66 / F ADM Date: 12/04/21 Loc: [facility] Room: Type: [facility] Attending Dr: Stevenson Corbin MD Copies [...] Erick Carranza M.D.12/04/2021 2:33 PM Dictation Location: [address] [place] [address] Transcribed By: [facility] 12/04/21 1433 Dictated By: Erick Carranza DO 12/04/21 1426 Signed By: 12/04/21 1433 Normal [facility] XR shoulder RT min 2V*on XR shoulder RT min 2V* [facility] Main [address] [address] XRay Report Signed Patient: Melanie Espinoza MR#: [id number] 6 : 1955 Acct:[id number] Age/Sex: 66 / F ADM Date: 10/26/21 Loc: [facility] [place] Room: Type: [facility] CLI Attending Dr: Stevenson Corbin MD Copies [...] COMPLICATION. Impression dictated by: Tai Taylor Jr., D.OSofía10/26/2021 10:32 AM Dictation Location: [place] [address] Transcribed By: [facility] 10/26/21 1032 Dictated By: Tai Taylor Jr, DO 10/26/21 1031 Signed By: 10/26/21 1032 Normal [facility] XR shoulder RT min 2V*on XR shoulder RT min 2V* [facility] Main [place] [address] [place] [address] XRay Report Signed Patient: Melanie Espinoza MR#: [id number] 6 : 1955 Acct:[id number] Age/Sex: 66 / F ADM Date: 10/18/21 Loc: [place] Room: Type: [facility] Attending Dr: Stevenson Corbin MD Copies to: [...] Ligia Carrasquillo M.D.10/18/2021 11:42 AM Dictation Location: [place] [address] Transcribed By: [facility] 10/18/21 1142 Dictated By: Ligia Carrasquillo MD 10/18/21 1139 Signed By: 10/18/21 1142 Normal [facility] COVID-19 FRMCon 10-13-2021 SARS-CoV-2 (COVID-19) RNA LARY+probe Ql (Unsp spec) Negative Normal Negative [facility] Comment on above: Order Comment: Healt hcare Worker?: N Result Comment: Testing for SARS-CoV-2 by RT-PCR This test was developed and its performance characteristics determined by [employer] and validated at the [facility]. This test has not been FDA [...] is terminated or revoked sooner. PERFORMED BY: [place] [address] PATHOLOGIST WEIGHT REDUCTION SPECIALIST TAYA CRESPO M.D. Performed By: #### C OVID 19 [facility] #### [address] COVID-19 Positive/NegativeOr dered By: Stevenson Corbin on 10-13-2021 SARS-CoV-2 (COVID-19) N gene LARY+probe Ql (Resp) Negative Negative [facility] Comment on above: Testing for SARS-CoV -2 by RT-PCR This test was developed and its performance characteristics determined by [employer]) and validated at the [facility]. This test has not been FDA [...] 2:31:58 PM (more content not included)... Normal [employer] PHQ-2 VITALSon 09-25-2021 Fall risk assessment a) No falls within the last year [facility] [employer] 250 DO Work Phone: Tobacco use status [facility] b) No [facility] [employer] 250 DO Work Phone: PHQ-2 VITALS [facility] 250 DO Work Phone: COVID-19 FRMCon 09-18-2021 SARS-CoV-2 (COVID-19) RNA LARY+probe Ql (Unsp spec) Negative Normal Negative [facility] Comment on above: Order Comment: Healt hcare Worker?: N Result Comment: Testing for SARS-CoV-2 by RT-PCR This test was developed and its performance characteristics determined by [employer] and validated at the [facility]. This test has not been FDA [...] is terminated or revoked sooner. PERFORMED BY: [place] [address] PATHOLOGIST WEIGHT REDUCTION SPECIALIST TAYA CRESPO M.D. Performed By: #### C OVID 19 [facility] #### [address] COVID-19 Positive/NegativeOr dered By: Stevenson Corbin on 09-18-2021 SARS-CoV-2 (COVID-19) N gene LARY+probe Ql (Resp) Negative Negative [facility] Comment on above: Testing for SARS-CoV -2 by RT-PCR This test was developed and its performance characteristics determined by [employer] and validated at the [facility]. This test has not been FDA [...] JEFE SAEED Date: 2021-08-22 02:25 Normal [facility] HIP LEFT 1 OR 2 VWS WITH PEL VISon 01-26-2021 HIP LEFT 1 OR 2 VWS WITH PELVIS [facility] Department of Radiology [address] [place] [phone] Patient Name: MELANIE ESPINOZA : 1955 [...] report. Electronically signed: Marisela Reveles. Transcribed by: [email or web address], User Resident: ORIANA REILLY Electronically Signed by: MARIESLA REVELES @ 01/27/2021 12:26 PM I personally read this/these film(s) with this resident Normal [facility] Comment on above: Order Comment: Evalu ate HIP LEFT 1 OR 2 VWS WITH PEL VISon 09-15-2020 HIP LEFT 1 OR 2 VWS WITH PELVIS [facility] Department of Radiology [address] [place] [phone] Patient Name: MELANIE ESPINOZA : 1955 [...] Electronically signed: Jose Armando Kwon. Transcribed by: [email or web address], User Resident: Electronically Signed by: JOSE ARMANDO KWON @ 09/15/2020 08:28 PM Normal [facility] Comment on above: Order Comment: evalu ate RAD - Ultrasound Reporton RAD - Ultrasound Report [id number]:127 Normal [facility] Ambulatory Clinical Summaryo n 08-30-2020 Ambulatory Clinical Summary {[id number]}CD:[id number] [facility] Patient Educationon 08-31-19 Patient Education Urology [...] Follow these instructions at home: ? Take ejfw-bhp-qlkrpgv and prescription medicines only as told by [...] 01/27/2008 Document Revised: 04/12/2018 Document Reviewed: 04/12/2018 [employer] Patient Education ? 2019 [employer] [facility] Urology Office/Clinic Noteon 08-30-2020 Urology Office/Clinic [...] Urnls Dip Stick Auto w/o Microscopy POC 48833 I have reviewed the previous health record information and history for this patient from Dr. Go Follow-up With When Contact Information Donavan Bailey MD, Justin Massey, URO Only if needed [facility] [address], [place] [address]- Additional Instructions: Patient Education Hydronephrosis I, Marion [...] 80 mg= 1 (more content not included)... [facility] Comment on above: Result Comment: Elec tronically Signed By: Donavan Bailey MD, Justin Massey\.br\Date and Time Signed: 08/30/20 13:04 EDT\.br\Electronically Co-Signed By: Marion Gibson MA\.br\Date and Time Co-Signed: 08/30/20 12:36 EDT Reminderson 08-22-2020 Reminders - From: Edilma Godoy To: [facility] - Clinical; Sent: 08/09/2020 11:42:24 EDT Show up: 08/21/2020 11:42:00 EDT Subject: renal US Reminder/Recall scheduled 08/19/20 at [facility]. patient has f/u scheduled 08/30 for results results scanned in today [facility] Ambulatory Clinical Summaryo n 08-09-2020 Ambulatory Clinical Summary {[id number]}CD:[id number] [facility] Formson 08-09-2020 Forms [id number]:[address] [facility] Patient Educationon 04-27-20 21 Patient Education Urology Hydronephrosis Hydronephrosis is [...] Follow these instructions at home: ? Take qkpz-fud-ojqisre and prescription medicines only as told by [...] 01/27/2008 Document Revised: 04/12/2018 Document Reviewed: 04/12/2018 [employer] Patient Education ? 2019 [employer]. [facility] Urology Office/Clinic Noteon 08-09-2020 Urology Office/Clinic Note Chief Complaint New patient here for left sided hydronephrosis HPI Staff New patient Melanie is a 65 y.o. female referred by [facility] – [facility] for mild to moderate left hydronephrosis. [...] Urnls Dip Stick Auto w/o Microscopy POC 08021 US Renal Follow-up With When Contact Information Donavan Bailey MD, Justin Massey, [facility] [address], [place] [address]- Additional Instructions: after renal u/s Patient Education [...] (at bedtime) (more content not included)... [facility] Comment on above: Result Comment: Elec tronically Signed By: Donavan Bailey MD, Justin Massey\.br\Date and Time Signed: 08/09/20 11:18 EDT\.br\Electronically Co-Signed By: Nadiya Freed MA\.br\Date and Time Co-Signed: 08/09/20 11:07 EDT RAD - CT Reporton 07-12-2020 RAD - CT Report [id number]. 00CD:[address] [facility] Consultation Noteon 07-02-19 Consultation Note [id number] .00CD:[address] [facility] HIP LEFT 1 OR 2 VWS WITH PEL VISon 06-16-2020 HIP LEFT 1 OR 2 VWS WITH PELVIS [facility] Department of Radiology [address] [place] [id number] Patient Name: MELANIE ESPINOZA : 1955 Sex: F Age: Race: White Pt. Location: 84 Patient Status: D Ordered Date: 06/16/2020 1:25:00 PM Completed Date: 06/16/2020 01:25 PM Requesting Provider: HERVE STARKEY Attending Provider: HERVE STARKEY Report Copy To: Signs & Symptoms: M25.552 Pain in left hip I10 History: [place] Comments: Views (X-RAY, HIP): AP Hip, Frogleg [...] complication Electronically signed: Willow Stapleton. Transcribed by: [email or web address], User Resident: Electronically Signed by: WILLOW STAPLETON @ 06/17/2020 08:01 AM Normal [facility] Comment on above: Order Comment: Views (X-RAY, HIP): AP Hip, Frogleg Lateral Hip HIP LEFT 1 OR 2 VWS WITH PEL VISon 2020 HIP LEFT 1 OR 2 VWS WITH PELVIS [facility] Department of Radiology [address] [place] [phone] Patient Name: MELANIE ESPINOZA : 1955 Sex: F Age: Race: White Pt. Location: 84 Patient Status: O Ordered Date: 2020 1:25:00 PM Completed Date: 2020 01:30 PM Requesting Provider: HERVE STARKEY Attending Provider: HERVE STARKEY Report Copy To: Signs & Symptoms: M25.552 Pain in left hip I10 History: [place] Comments: Exam: HIP LEFT 1 OR 2 [...] impaction. Electronically signed: Deion Hernandez. Transcribed by: [email or web address], User Resident: Electronically Signed by: DEION HERNANDEZ @ 2020 04:11 PM Normal [facility] HIP LEFT 1 OR 2 VWS WITH PEL VISon 04-14-2020 HIP LEFT 1 OR 2 VWS WITH PELVIS [facility] Department of Radiology [address] [place] [id number] Patient Name: MELANIE ESPINOZA : 1955 [...] fracture. Electronically signed: Antonio Bernal. Transcribed by: [email or web address], User Resident: Electronically Signed by: ANTONIO BERNAL @ 04/14/2020 10:04 AM Normal [facility] Comment on above: Order Comment: Evalu ate Coding Summaryon 01-13-2020 Coding Summary CODING DATE: 01/13/[address] [facility] STATUS: Home PAYOR: Medicaid HMO ADMIT [...] Nikhil Zamudio Date Saved: 01/13/2020 06:25 pm [facility] Coding Summary CODING DATE: 01/13/[address] [facility] STATUS: Home PAYOR: Medicaid HMO ADMIT [...] Nikhil Zamudio Date Saved: 01/13/2020 06:24 pm [facility] Coding Summary CODING DATE: 01/13/[address] [facility] STATUS: Home PAYOR: Medicaid HMO ADMIT DX: REASON FOR VISIT DX: K46.9 Unspecified abdominal hernia without obstruction or gangrene FINAL DX: PRINCIPAL: K43.6 Other and unspecified ventral hernia with obstruction, without gangrene SECONDARY: CHERELLE PROC APC STAT DESCRIPTION DOCTOR NAME DATE NOTE: The code number assigned matches the documented diagnosis and / or procedure in the patient's chart. However, the narrative phrase printed from the coding software may appear abbreviated, or result in slightly different terminology. Coded By: Nikhil Zamudio Date Saved: 01/13/2020 06:24 pm [facility] ED Clinical Summaryon 2019 ED Clinical Summary [facility] - Emergency Department [address] [place] [address] ED Clinical Summary PERSON INFORMATION Name: MELANIE ESPINOZA Age: 64 Years Sex: FEMALE : 1955 MRN: Acct#: Visit Reason: Hernia; ABD PAIN Arrival: 01/09/2020 15:42:54 Discharge: 01/09/2020 16:20:00 LOS: 000 00:38 Check In: 01/09/2020 15:42:54 Checkout:01/09/2020 16:20:00 Address: [facility] [place] [address] PCP: ESTEBAN GARZA PROVIDER INFORMATION Provider Role [...] Hernia Follow-Up: With: Address: When: Calvin Aguilar [address] [place] [address], [place] [address] Business (1) Within 2 to 4 days [...] kimberly verbalizes understanding of instructions given Comment: [facility] ED Note - Physicianon 2019 [...] documented in chart. Surgical history: Esophagogastroduodeno scopy ([id number]) on 01/17/2018 at 62 Years., Reviewed as [...] Comment: Quit 06/30 - 11/15/2017 14:59 - Sharee GENAO, Alexa , Reviewed as documented in chart. Problem [...] Impression and Plan Diagnosis Incarcerated ventral hernia (EUM02-DM K43.6, Discharge, Medical) Ventral hernia (RGL33-WH K43.9, Discharge, Medical) Plan Condition: Improved, Stable. [...] on: 01/12/2020 15:09 EDT] Wade Hassan MD [facility] ED Note-Nursingon 01-09-2020 ED Note-Nursing Pt presents to the E D with a hernia. Pt states increased pain in that area. [facility] ED Patient Education Noteon 01-09-2020 [...] increase pressure on your hernia. ? Take johs-zlg-nycufti and prescription medicines only as told by [...] 03/18/2013 Document Revised: 05/14/2018 Document Reviewed: 10/21/2017 [employer] Med Patient Education ? 2019 [employer] Normal [facility] ED Patient Summaryon 020 ED Patient Summary [facility] - Emergency Department [address] [place] [id number] PATIENT DISCHARGE INSTRUCTIONS Patient Information Name: MELANIE ESPINOZA Age: 64 Years Date of : 1955 Reason For Visit: Hernia; ABD PAIN Arrival Time: 01/09/2020 15:42:54 Primary Care Physician: ESTEBAN GARZA Attending Physician: Wade Hassan MD Comment: Visit Diagnosis: Diagnoses This Visit Hernia ([id number]) Incarcerated ventral hernia (K43.6) Ventral hernia (K43.9) Prescription Information: If you have been given a prescription for narcotics, seek immediate medical attention if you have any difficulty breathing or any sudden status changes such as confusion and sleepiness. If you or anyone you know is experiencing suicidal thoughts, mental health, alcohol and/or drug addiction problems; contact the [facility] [place] 05/11 Crisis Hotline -Text 4HBRO to [phone]. If you received any narcotics, sedation, or [...] legal documents With: Address: When: Calvin Aguilar [address] [place] [address] Business (1) Within 2 to 4 days [...] and treatment you received today in the [facility] Emergency Department were for an urgent problem and are not intended as complete care. It is important for you to follow up with a doctor, nurse practitioner, or physician?s surgeon's assistant for ongoing care. If your symptoms [...] so we can reach you if necessary. [facility] Emergency Department has provided you with a complete list of medications post discharge. Please inform your technical assistant/provider of your visit and for further instruction [...] increase pressure on your hernia. ? Take ynvs-lqu-ydxwaky and prescription medicines only as told by [...] 03/18/2013 Document Revised: 05/14/2018 Document Reviewed: 10/21/2017 [employer] Patient Education ? 2019 [employer] Viruses or Bacteria What?s got you [...] for Disease Control and Prevention December 2013 [facility] Coding Summaryon 09-24-2019 Coding Summary CODING DATE: 09/24/2019 FINAL [facility] STATUS: Home PAYOR: Medicaid HMO ADMIT DX: [...] Carine Ferraro Date Saved: 09/24/2019 03:29 pm [facility] .Thyroglobulin by SKYLAR LCon 0 09-23-2019 Thyroglobulin by SKYLAR JUVENTINO 13.6 ng/mL 1.5-38.5 [facility] Comment on above: Result Comment: According to [...] quantitation is 0.1 ng/mL Thyroglobulin measured by Sunnova Immunometric Assay Performed At: [facility] [id number] Bebo Jeter PhD Ph:[phone] Performed By: #### 2 [id number], [id number], [id number], [id number], [id number] ####[facility] (DEFAULT)[address] [place] [address] Provider Orderson 09-23-2019 Provider Orders [id number] .00OTGTIFF Normal [facility] T3 Free LCon 09-23-2019 Triiodothyronine,Fr ee,Serum LC 2.0 pg/mL 2.0-4.4 [facility] Comment on above: Result Comment: Perf ormed At: [address] [id number] Bebo Jeter PhD Ph:[phone] Performed By: #### 2 [id number], [id number], [id number], [id number], [id number], [id number] #### [facility] (DEFAULT) [address] [place] [address] Thyroglobulin Reflex Profile LCon 09-23-2019 Thyroglobulin Antibody LC <1.0 0.0-0.9 [facility] Comment on above: Result Comment: Thyr oglobulin Antibody measured by Sunnova Methodology Performed At: [address] [id number] Bebo Jeter PhD Ph:[phone] Performed By: #### 2 [id number], [id number], [id number], [id number], [id number], [id number] ####[facility] (DEFAULT)[address] [place] [address] Thyroid Peroxidase (TPO) Ab LCon 09-23-2019 Thyroid Peroxidase (TPO) Ab LC <9 0-34 [facility] Comment on above: Result Comment: Perf ormed At: [address] [id number] Bebo Jeter PhD Ph:[phone] Performed By: #### 2 [id number], [id number], [id number], [id number], [id number], [id number] #### [facility] (DEFAULT) [address] [place] [address] Free T4on 09-22-2019 Free T4 [Mass/Vol] 0.90 ng/dL Normal 0.61-1.12 [facility] Comment on above: Result Comment: Spec imens that contain high levels of Biotin may cause false high results Performed By: #### 2 [id number], [id number], [id number], [id number], [id number], [id number] #### [facility] (DEFAULT) [address] [place] [address] TSHon 09-22-2019 TSH Qn 2.07 mcIU/mL Normal 0.45-5.33 [facility] Comment on above: Result Comment: Gene ral Population (males and non- females, aged 21-88) 0.45 - 5.33 Females, 1st Trimester 0.05 - 3.70 Females, 2nd Trimester 0.31 - 4.35 Females, 3rd Trimester 0.41 - 5.18 Performed By: #### 2 [id number], [id number], [id number], [id number], [id number], [id number] #### [facility] (DEFAULT) [address] [place] [address] Coding Summaryon 06-18-2019 Coding Summary CODING DATE: 06/18/[address] [facility] STATUS: Home PAYOR: Medicaid HMO ADMIT [...] Ferraro Date Saved: 06/18/2019 01:32 pm Normal [facility] US Thyroidon 06-17-2019 US Thyroid EXAM: US [...] Huntley MD 06/17/19 4:26 pm Technologist: KRISTINA [facility] Provider Orderson 06-16-2019 Provider Orders [id number] .[facility] Coding Summaryon 05-29-2019 Coding Summary CODING DATE: 05/29/[address] [facility] STATUS: Home PAYOR: Medicaid HMO ADMIT [...] Deb Law Date Saved: 05/29/2019 12:32 pm [facility] Provider Orderson 05-28-2019 Provider Orders [id number] .[facility]R Chest 2 Viewson 0 XR [...] MD 05/27/19 4:03 pm Technologist: Anatoliy SETH [facility] Vital Signs Date Time Vital Sign Value Performing Clinician Facility 05-14-2023 12:12-0500 Body mass index (BMI) [Ratio] 16.97 kg/m2 Alexey Furlong DO Work Phone: [facility] 05-14-2023 12:12-0500 Body temperature 99.61 [degF] Alexey Furlong DO Work Phone: [facility] 05-14-2023 12:12-0500 Body weight 43.45 kg Alexey Furlong DO Work Phone: [facility] 05-14-2023 12:12-0500 Diastolic blood pressure 77 mm[Hg] Alexey Furlong DO Work Phone: [facility] 05-14-2023 12:12-0500 Heart rate 82 /min Alexey Furlong DO Work Phone: [facility] 05-14-2023 12:12-0500 Respiratory rate 18 /min Alexey Furlong DO Work Phone: [facility] 05-14-2023 12:12-0500 SaO2% (BldA) [Mass fraction] 95 % Alexey Furlong DO Work Phone: [facility] 05-14-2023 12:12-0500 Systolic blood pressure 129 mm[Hg] Alexey Furlong DO Work Phone: [facility] 04-14-2023 22:23-0500 Body mass index (BMI) [Ratio] 17.47 kg/m2 Alexey Furlong DO Work Phone: [facility] 04-14-2023 22:23-0500 Body temperature 97.9 [degF] Alexey Furlong DO Work Phone: [facility] 04-14-2023 22:23-0500 Body weight 44.73 kg Alexey Furlong DO Work Phone: [facility] 04-14-2023 22:23-0500 Diastolic blood pressure 64 mm[Hg] [facility] Bradfordng [facility] 04-14-2023 22:23-0500 Systolic blood pressure 132 mm[Hg] Alexey Pedersonlong DO [facility] 01-29-2022 12:15-0400 Body height 161.29 cm Stevenson Corbin Other [facility] Other 01-02-2022 08:47-0400 Body weight 49.9 kg Tai Hinojosa MD Work Phone: [facility] 01-02-2022 08:47-0400 Diastolic blood pressure 77 mm[Hg] Tai Hinojosa MD Work Phone: [facility] 01-02-2022 08:47-0400 Heart rate 68 /min Tai Hinojosa MD Work Phone: [facility] 01-02-2022 08:47-0400 SaO2% (BldA) [Mass fraction] 96 % Tai Hinojosa MD Work Phone: [facility] 01-02-2022 08:47-0400 Systolic blood pressure 128 mm[Hg] Tai Hinojosa MD Work Phone: [facility] 12-06-2021 15:00-0400 Body height 161.29 cm Sena Jabier Other [employer] [facility] Other 12-06-2021 15:00-0400 Body temperature 98 [degF] Sena Jabier Other [facility] Other 12-06-2021 15:00-0400 Diastolic blood pressure 85 mm[Hg] Sena Jabier Other [facility] Other 12-06-2021 15:00-0400 Respiratory rate 18 /min Sena Jabier Other [facility] Other 12-06-2021 15:00-0400 SaO2% (BldA) [Mass fraction] 96 % Sena Jabier Other [facility] Other 12-06-2021 15:00-0400 Systolic blood pressure 157 mm[Hg] Sena Jabier Other [facility] Other 10-18-2021 12:35-0400 Diastolic blood pressure 58 mm[Hg] MD Stevenson Corbin Work Phone: [facility] 10-18-2021 12:35-0400 Heart rate 64 /min MD Stevenson Corbin Work Phone: [facility] 10-18-2021 12:35-0400 Respiratory rate 16 /min MD Stevenson Corbin Work Phone: [facility] 10-18-2021 12:35-0400 SaO2% (BldA) [Mass fraction] 95 % MD Stevenson Corbin Work Phone: [facility] 10-18-2021 12:35-0400 Systolic blood pressure 146 mm[Hg] MD Stevenson Corbin Work Phone: [facility] 10-18-2021 12:19-0400 Body height 160.02 cm MD Stevenson Corbin Work Phone: [facility] 10-18-2021 12:19-0400 Body mass index (BMI) [Ratio] 18.1 kg/m2 MD Stevenson Corbin Work Phone: [facility] 10-18-2021 12:19-0400 Body weight 46.6 kg MD Stevenson Corbin Work Phone: [facility] 10-18-2021 11:35-0400 Inhaled oxygen flow rate 2 L/min MD Stevenson Corbin Work Phone: [facility] 10-18-2021 10:53-0400 Body temperature 97.1 [degF] MD Stevenson Corbin Work Phone: [facility] 09-25-2021 14:35-0400 Diastolic blood pressure 78 mm[Hg] Alexey G Furlong Work Phone: [facility] DO Work Phone: 09-25-2021 14:35-0400 Systolic blood pressure 162 mm[Hg] Alexey G Furlong Work Phone: [facility] 250 DO Work Phone: 09-25-2021 14:32-0400 Body height 160.02 cm Alexey G Furlong Work Phone: [facility] 250 DO Work Phone: 09-25-2021 14:32-0400 Body mass index (BMI) [Ratio] 18.42 kg/m2 Alexey G Furlong Work Phone: [facility] 250 DO Work Phone: 09-25-2021 14:32-0400 Body surface area Derived from formula 1.46 m2 Alexey G Furlong Work Phone: [facility] [employer] 250 DO Work Phone: 09-25-2021 14:32-0400 Body weight 47.17 kg Alexey G Furlong Work Phone: [facility] 250 DO Work Phone: 09-25-2021 14:32-0400 Diastolic blood pressure 90 mm[Hg] Alexey G Furlong Work Phone: [facility] 250 DO Work Phone: 09-25-2021 14:32-0400 Heart rate 83 /min Alexey G Furlong Work Phone: [facility] 250 DO Work Phone: 09-25-2021 14:32-0400 Systolic blood pressure 168 mm[Hg] Alexey Polo Work Phone: [facility] [employer] 250 DO Work Phone: 09-13-2021 12:08-0400 Body height 160.02 cm MD Stevenson Corbin Work Phone: [facility] 09-13-2021 12:08-0400 Body mass index (BMI) [Ratio] 18.6 kg/m2 MD Stevenson Corbin Work Phone: [facility] 09-13-2021 12:08-0400 Body weight 47.8 kg MD Stevenson Corbin Work Phone: [facility] 05-30-2021 09:45-0500 Body height 161.29 cm Stevenson Corbin Other [facility] Other 05-30-2021 09:45-0500 Body mass index (BMI) [Ratio] 16.39 kg/m2 Stevenson Olexa Other [facility] Other 05-30-2021 09:45-0500 Body weight 42.64 kg Stevenson Olexa Other [facility] Other 03-22-2021 14:00-0500 Body height 161.29 cm Radha Bosch Other [facility] Other 03-22-2021 14:00-0500 Body mass index (BMI) [Ratio] 16.56 kg/m2 Radha Bosch Other [facility] Other 03-22-2021 14:00-0500 Body temperature 98.2 [degF] Radha Bosch Other [facility] Other 03-22-2021 14:00-0500 Body weight 43.09 kg Radha Bosch Other [facility] Other 03-22-2021 14:00-0500 Diastolic blood pressure 60 mm[Hg] Radha Bosch Other [facility] Other 03-22-2021 14:00-0500 Respiratory rate 18 /min Radha Bosch Other [facility] Other 03-22-2021 14:00-0500 SaO2% (BldA) [Mass fraction] 96 % Radha Bosch Other [facility] Other 03-22-2021 14:00-0500 Systolic blood pressure 140 mm[Hg] Radha Bosch Other [employer] [facility] Other Encounters Encounter Date Encounter Type Care Provider Facility Start: 05-14-2023 End: 05-14-2023 Continuing Care [facility] Polo DO [facility] Comment on above: Iron deficiency anem ia, unspecified iron deficiency anemia type (Primary Dx); S/P reverse total shoulder arthroplasty, right; Multifactorial gait disorder; Osteoarthritis of left hip, unspecified osteoarthritis type Start: 04-11-2023 Continuing Care Alexey gtz DO Work [facility] Comment on above: Primary osteoarthrit is of left hip (Primary Dx); Hyposmolality syndrome; Movement disorder Start: 04-04-2023 ambulatory TELLY PLAZA [facility] Start: 03-04-2023 End: 03-05-2023 ambulatory HERVE STARKEY [facility] Start: 01-08-2023 End: 01-08-2023 ambulatory ESTEBAN GARZA Facility:[facility] Start: 07-03-2022 End: 07-03-2022 ambulatory ESTEBAN GARZA Facility:[facility] Start: 06-18-2022 Office outpatient vi sit 15 minutes Stevenson Corbin [facility] Start: 06-18-2022 End: 06-18-2022 ambulatory Stevenson Shaquille Facility:[facility] Start: 06-18-2022 End: 06-18-2022 ambulatory DO Alexey Polo Work Phone: [facility] Work Phone: Start: 06-18-2022 End: 06-18-2022 Patient encounter procedure DO Alexey Polo Work Phone: [facility] Start: 06-04-2022 End: 06-04-2022 ambulatory LENA HAMEED . Facility:[facility] Start: 04-19-2022 End: 04-19-[address] EVA POOLE . Facility:[facility] Start: 03-23-2022 End: 03-23-[address] ERICK BERG . Facility:[facility] Start: 02-23-2022 End: 02-24-[address] ALEXEY POLO Facility:[facility] Start: 01-29-2022 Office outpatient vi sit 15 minutes Stevenson Corbin [facility] Start: 01-29-2022 End: 01-29-2022 ambulatory Stevenson Shaquille [facility] Other Start: 01-27-2022 End: 01-28-[address] EMMA GO Facility:[facility] Start: 01-02-2022 End: 01-02-2022 Patient encounter procedure Tai Hinojosa MD Work Phone: Neurology Comment on above: Lingual facial bucca l dyskinesia (Primary Dx); Dyskinesia, tardive; Dyskinesia, orofacial; Excessive physiologic tremor Start: 12-27-2021 End: 12-27-[address] ALEXEY POLO Facility:[facility] Start: 12-06-2021 End: 12-06-2021 ambulatory Sena Eugene Other [facility] Other Start: 12-06-2021 Office outpatient vi sit 15 minutes Sena Eugene [facility] Start: 12-04-2021 Postop follow up vis it related to original px Stevenson Olexa [facility] Start: 12-04-2021 End: 12-04-2021 ambulatory Stevenson Olexa [facility] Other Start: 12-04-2021 End: 12-04-2021 Patient encounter procedure MD Stevenson Corbin Work Phone: [facility] Start: 11-01-2021 End: 11-01-2021 ambulatory Stevenson Olexa Other [facility] Other Start: 11-01-2021 Telephone encounter Stevenson Corbin [facility] Start: 10-26-2021 Postop follow up vis it related to original px Stevenson Olexa [facility] Start: 10-26-2021 End: 10-26-2021 ambulatory Stevenson Olexa [facility] Other Start: 10-26-2021 End: 10-26-2021 Patient encounter procedure MD Stevenson Corbin Work Phone: [facility] Start: 10-18-2021 End: 10-18-2021 ambulatory Stevenson Olexa Facility:[facility] Start: 10-18-2021 End: 10-18-2021 Admission to same day surgery center MD Stevenson Corbin Work Phone: [facility] [place] Start: 10-17-2021 End: 10-17-2021 ambulatory Stevenson Olexa Other [facility] Other Start: 10-17-2021 Telephone encounter Stevenson Corbin [facility] Start: 10-13-2021 End: 10-13-2021 ambulatory Stevenson Olexa Facility:[facility] Start: 10-13-2021 End: 10-13-2021 Patient encounter procedure MD Stevenson Corbin Work Phone: [facility] Start: 10-09-2021 End: 10-09-2021 Patient encounter procedure MD Stevenson Corbin Work Phone: [facility] Start: 09-25-2021 Office consultation new/estab patient 60 min Alexey Polo Work Phone: [facility] 250 DO Work Phone: Start: 09-20-2021 End: 09-20-2021 ambulatory Stevenson Corbin Facility:[facility] Start: 09-20-2021 End: 09-20-2021 Departed Referred MD Stevenson Corbin Work Phone: [facility] [place] Start: 09-18-2021 Telephone encounter Stevenson Corbin [facility] Start: 09-18-2021 End: 09-18-2021 ambulatory Stevenson Corbin [facility] Other Start: 09-18-2021 End: 09-18-2021 Patient encounter procedure MD Stevenson Corbin Work Phone: [facility] Start: 09-13-2021 End: 09-13-2021 ambulatory Stevenson Corbin Facility:[facility] Start: 08-22-2021 End: 08-22-[address] ALEXEY POLO Facility:[facility] Start: 07-12-2021 Telephone encounter Tai johnson MD Work Phone: Neurology Comment on above: Insurance Authorizat ion Start: 06-29-2021 End: 06-30-[address] ALEXEY POLO Facility:[facility] Start: 05-30-2021 End: 05-30-2021 ambulatory Stevenson Corbin Other [facility] Other Start: 05-30-2021 Office outpatient ne w 30 minutes Stevenson Corbin [facility] [facility] Start: 03-22-2021 End: 03-22-2021 ambulatory Radha Bosch Other [facility] Other Start: 03-22-2021 Office outpatient vi sit 15 minutes Radha SHIELDS Nephrology Start: 06-16-2020 End: 06-17-2020 ambulatory HERVE JAKY Facility:[facility] Patient encounter status Alexey Polo Work Phone: [facility] DO Work Phone: Procedures Date Procedure Procedure Detail Performing Clinician Start: 06-18-2022 Plain X-ray of right shoulder DO Alexey Bgleeann Work Phone: Start: 12-04-2021 Plain X-ray of [...] Td Vaccines (3 - Td or Tdap) [facility] Start: 04-14-2024 Adult [facility]ening [facility] Start: 03-12-2024 Adult BMI Screening [facility] Start: 03-12-2024 Tobacco Screening [facility] Start: 12-14-2022 COVID-19 Vaccine ( season) COVID-19 Vaccine ( season) [facility] Start: 12-14-2022 Influenza vaccination Influenza Vaccine [facility] Start: 12-14-2021 Influenza vaccination INFLUENZA (#1) [facility] Start: 12-04-2021 Plain X-ray of right shoulder XR shoulder RT min 2V* [facility] Start: 12-04-2021 End: 12-04-2021 Patient encounter procedure Departed Clinical [facility] [place] Start: 10-18-2021 End: 10-18-2021 [facility] Work Phone: Start: 09-20-2021 Prosthetic total arthroplasty of right shoulder OR Shoulder Arthroplasty-Total (Right) [facility] Start: 08-08-2021 Adult depression screening assessment DEPRESSION SCREENING [facility] Start: 04-15-2021 ADVANCE DIRECTIVE DISCUSSION ADVANCE DIRECTIVE DISCUSSION [facility] Start: 2020 BONE DENSITY BONE DENSITY [facility] Start: 2020 Fall Risk Screening Fall Risk Screening [facility] Start: 2020 PNEUMOCOCCAL: 65+ (1 - PCV) PNEUMOCOCCAL: 65+ (1 - PCV) [facility] Start: 2005 SHINGRIX VACCINE (1 of 2) SHINGRIX VACCINE (1 of 2) [facility] Start: 2000 COLOGUARD (FIT-DNA) COLOGUARD (FIT-DNA) [facility] Start: 2000 Colonoscopy COLONOSCOPY [facility] Start: 2000 COLORECTAL CANCER SCREENING COLORECTAL CANCER SCREENING [facility] Start: [address] COLONOGRAPHY [facility] Start: 2000 DIABETES SCREEN DIABETES SCREEN [facility] Start: 2000 FECAL OCCULT BLOOD FECAL OCCULT BLOOD [facility] Start: 2000 LIPID SCREEN LIPID SCREEN [facility] Start: 2000 SIGMOIDOSCOPY SIGMOIDOSCOPY [facility] Start: 1995 Mammography MAMMOGRAM [facility] Start: 1974 Urine microalbumin profile DTAP,TDAP,TD (1 - Tdap) [facility] Start: 1973 Adult BMI Follow Up Plan Adult BMI Follow Up Plan [facility] Start: 1973 HEPATITIS C SCREENING HEPATITIS C SCREENING [facility] Start: 1967 Depression Screening Depression Screening [facility] Start: 1955 COVID-19 VACCINE (#1) COVID-19 VACCINE (#1) [facility] Start: 1955 Medicare Annual Wellness Visit Medicare Annual Wellness Visit [facility] Immunizations Immunization Date Immunization Notes Care Provider Venkat askew 03-26-2021 Pfizer-BioNTech COVID-19 Vacc 30 MCG/0.3ML Intramuscular Suspension Alexey Polo Work Phone: [facility] 01-10-2021 Fluzone High-Dose Quadrivalent 0.7 ML Intramuscular Suspension Prefilled Syringe Alexey Polo Work Phone: [facility] 01-10-2021 influenza virus vaccine, unspecified formulation Alexey Polo DO Work Phone: [facility] 12-28-2020 diphtheria, tetanus toxoids and pertussis vaccine Alexey Bradfordng Work Phone: [facility] 07-14-2020 Pfizer-BioNTech COVID-19 Vacc 30 MCG/0.3ML Intramuscular Suspension Alexey Polo Work Phone: [facility] 06-28-2020 tetanus toxoid, redu anne diphtheria toxoid, and acellular pertussis vaccine, adsorbed Alexey Polo Work Phone: [facility] 06-23-2020 Pfizer-BioNTech COVID-19 Vacc 30 MCG/0.3ML Intramuscular Suspension Alexey Polo Work Phone: [facility] 12-19-2019 influenza, injectabl e, quadrivalent, preservative free Alexey Polo Work Phone: [facility] 12-15-2019 influenza, seasonal, injectable Alexeyconcepción Polo DO Work Phone: [facility] 10-28-2019 zoster vaccine recombinant Alexey Pedersonlong Work Phone: [facility] 02-25-2019 zoster vaccine recombinant Alexey Pedersonlong Work Phone: [facility] 12-25-2018 influenza, injectabl e, quadrivalent, preservative free Alexey G Furlong Work Phone: [facility] 12-25-2018 pneumococcal conjuga te vaccine, 13 valent Alexey G Furlong Work Phone: [facility] 12-20-2017 influenza, injectabl e, quadrivalent, preservative free Alexey G Furlong Work Phone: [facility] 12-14-2016 influenza virus vaccine, unspecified formulation Alexey Furlong DO Work Phone: [facility] 12-14-2016 influenza, injectabl e, quadrivalent, preservative free Alexey G Furlong Work Phone: [facility] 11-20-2015 influenza, seasonal, injectable, preservative free Alexey G Furlong Work Phone: [facility] [employer] 250 DO Work Phone: 11-20-2015 pneumococcal polysaccharide vaccine, 23 valent Alexey G Furlong Work Phone: [facility] [employer] 250 DO Work Phone: 11-20-2015 zoster vaccine, live Alexey G Furlong Work Phone: [facility] [employer] 250 DO Work Phone: 12-31-2014 influenza, seasonal, injectable, preservative free Alexey G Furlong Work Phone: [facility] NEGATED: Highlighted row has not occurred!05-19-2022 pneumococcal polysaccharide vaccine, 23 valent Alexey Furlong DO Work Phone: [facility] Payers Date Payer Category Payer Medicare [id number] 2021 Self-pay [id number] 2020 Medicare [id number] 2013 Medicaid MEDICAID [facility] MEDICAID [id number] 2013-Present [phone] [address] [place] [address] Medicaid [id number] 1959 Medicaid [id number] 1959 Medicare [id number] 1955 Unknown [id number] 1955 Unknown [id number] 2.16.840.1.651500.3.579.2.593 1955 Unknown [id number] 2.16.840.1.472650.3.579.2.593 1955 Unknown [id number] 2.16.840.1.551240.3.579.2.593 1955 Unknown [id number] 2.16.840.1.618782.3.579.2.593 1955 Unknown [id number] 2.16.840.1.043048.3.579.2.593 1955 Unknown [id number] 2.16.840.1.382531.3.579.2.593 1955 Unknown [id number] 2.16.840.1.155815.3.579.2.593 1955 Unknown [id number] 2.16.840.1.606746.3.579.2.593 Unknown Unknown [id number] 2.16.840.1.091406.3.579.2.531 Unknown [id number] 2.16.840.1.905007.3.579.2.531 Unknown [id number] 2.16.840.1.130082.3.579.2.531 Unknown [id number] 2.16.840.1.516773.3.579.2.531 Unknown [id number] 2.16.840.1.574543.3.579.2.531 Unknown [id number] 2.16.840.1.773106.3.579.2.531 Unknown [id number] 2.16.840.1.597303.3.579.2.531 Unknown [id number] 2.16.840.1.634182.3.579.2.531 Unknown [id number] [id number] Social History Date Type Detail Facility Start: 2020 End: 02-18-2023 Daily caffeine consumption Daily caffeine consumption [facility] Comment on above: 1-2 cups of coffee d aily. Occas iced tea. Diet coke ocassional; Quit in ; Start: 2020 End: 03-12-2023 Sex Assigned At [facility] Start: 10-18-2021 End: 02-18-2023 Tobacco smoking status FLIS Ex-smoker (finding) [facility] Start: 1955 Sex Assigned At Female F [facility] End: 07-21-2017 History of tobacco use Current smoker [facility] End: 07-21-2017 History of tobacco use Cigarette Smoker [facility] Start: 07-21-2018 End: 02-18-2023 Tobacco use and exposure Smokeless tobacco non-user [facility] Start: 08-10-2020 End: 01-02-2022 Alcohol intake Lifetime non-drinker (finding) [facility] Start: 07-21-2018 History SDOH Alcohol Frequency 1 [facility] Start: 1955 Sex Assigned At Not on file C [facility] Start: 12-23-2021 End: 01-02-2022 Exposure to SARS-CoV-2 (event) Not sure [facility] Start: 03-12-2023 Alcohol intake Current non-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 alcohol (finding) [facility] Housing Instability Unknown [facility] Start: 03-23-2022 Tobacco Comment Quit in the S, STARTED AGE 18 [facility] Medical Equipment Procedure Code Equipment Code Equipment Origin al Text Equipment Identifier Dates Arthroplasty, shoulder, total Total reverse shoulder prosthesis [id number] 99 FDA Start: 10-18-2021 Arthroplasty, shoulder, total Total reverse shoulder prosthesis [id number] FDA Start: 10-18-2021 Arthroplasty, shoulder, total Total reverse shoulder prosthesis [id number] [id number] 83 FDA Start: 10-18-2021 Arthroplasty, shoulder, total Total reverse shoulder prosthesis [id number] [id number])21.007 57 FDA Start: 10-18-2021 Arthroplasty, shoulder, total Total reverse shoulder prosthesis [id number] [id number])21.024 16 FDA Start: 10-18-2021 Arthroplasty, shoulder, total Total reverse shoulder prosthesis [id number] [id number] FDA Start: 10-18-2021 Arthroplasty, shoulder, total Total reverse shoulder prosthesis [id number] [id number] FDA Start: 10-18-2021 Arthroplasty, shoulder, total Total reverse shoulder prosthesis [id number] [id number] FDA Start: 10-18-2021 Arthroplasty, shoulder, total Total reverse shoulder prosthesis [id number] [id number] FDA Start: 10-18-2021 Arthroplasty, shoulder, total Total reverse shoulder prosthesis [id number] [id number] FDA Start: 10-18-2021 Mesh Pco Vntrl P tch 4.6cm Rpl [id number] - Sna - [id number] Start: 01-29-2020 Goals Date Patient Goal [...] Evaluation of progress towards goal: return to [facility] Clinical Notes 03-22-2021 to 05-14-2023 Alexey Polo, DO - 05/14/2023 12:12 PM ESTAlexey Polo, DO - 04/11/2023 11:59 PM EST Note Date & Type Note Facility 05-14-2023 Note HNO ID: [id number] Author: TAI HINOJOSA MD Service: ? Author Type: Physician Type: Progress Notes Filed: 05/14/2023 16:40 Note Text: May 14, 2023 Tai Hinojosa MD [address] / [address] [address] Esteban Garza MD ([facility]) [address] [place] [address] Melanie Espinoza : 1955 Interval History: Melanie Espinoza is a 67 year old woman with a 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 The patient is seen with a mobile lounge driver. Her symptoms persist. Increasing the clonazepam did help the movements. The hip finally gave out and now needs a replacement. Allergies: ALLERGIES Allergen Reactions Erythromycin Unknown Current Medications: cyclobenzaprine (FLEXERIL) 10 mg tablet guaiFENesin-dextromethorphan (ROBITUSSIN DM) 100-10 mg/5 mL syrup Take 10 mL by mouth every 6 hours as needed. levothyroxine (SYNTHROID) 75 mcg tablet busPIRone (BUSPAR) 10 mg tablet Take 10 mg by mouth three times daily. gabapentin (NEURONTIN) 600 mg tablet Take 600 mg by mouth three times a day. amLODIPine (NORVASC) 5 mg tablet Take by mouth once daily. atorvastatin (LIPITOR) 40 mg tablet Take 40 mg by mouth once daily. menthol (BIOFREEZE, MENTHOL,) 4 % topical gel Apply to affected area three times daily as needed. calcium carbonate (CALTRATE) 600 mg calcium (1,500 mg) tab Take 600 mg by mouth. ferrous sulfate 325 mg (65 mg iron) tablet Take 325 mg by mouth daily with breakfast. Fluticasone Propionate 50 mcg/actuation diskus inhaler Inhale 1 Puff as instructed twice daily. loperamide (IMODIUM) 2 mg cap(s) Take 2 [...] 1 g by mouth four times daily. ondansetron (ZOFRAN) 4 mg tablet Take by mouth every 8 hours as needed for nausea/vomiting. traZODone (DESYREL) 100 mg tablet clonazePAM (KLONOPIN) 1 mg tablet Take 1.5 tablets by mouth three times daily for 90 days. [including bedtime] HYDROcodone-acetaminophen (NORCO) 5-325 mg per tablet Take 1 tablet by mouth every 8 hours as needed for pain. (Patient not taking: Reported on 01/08/2023) deutetrabenazine (AUSTEDO) 12 mg tab Take 2 tablets (24 mg) by mouth twice daily with meals. busPIRone (BUSPAR) 15 mg tablet Take 15 mg by mouth three times daily. (Patient not taking: Reported on 01/08/2023) alendronate (FOSAMAX) 70 mg tablet Take 70 [...] daily. (Patient not taking: Reported on 01/08/2023) acetaminophen (TYLENOL) 500 mg tablet Take 500 mg by mouth every 8 hours as needed. gabapentin (NEURONTIN) 300 mg capsule Take 1 capsule in the morning, one in early afternoon, and 2 in the evening primidone (MYSOLINE) 250 mg tablet Take 1 tablet by mouth twice daily. busPIRone (BUSPAR) 5 mg tablet Take 1 [...] or skin issues No other medical issues o Physical Examination: General Description of Patient: in no acute distress, but she is constantly moving - facial dyskinesias (grimacing, tongue thrusts); frequent short breaths taken Blood pressure 175/92, pulse 81, height 160 cm (5' 3 ), weight 43.1 kg (95 lb), SpO2 96%. FOCUSED NEUROLOGIC EXAMINATION: Mental Status: Alert and Oriented to person, place, and date Cranial Nerves: symmetric face; involuntary facial movements Motor: no tremor, just frequent movement Coordination: quivery Gait: in wheelchair - cannot stand due to orthopedic problems Assessment: Ms. Espinoza is a 67 year old woman with facial - and now body - dyskinesias, partly responsive to Austedo a (more content not included)... [facility] 05-14-2023 History of Present illness Narrative Patient Name: Melanie Espinoza Date of : 1955 Date of Service: 05/14/2023 Facility: [facility] Type of Visit: Subsequent Visit Subjective Melanie Espinoza is a 67 y.o. female [facility]. Melanie returned from the hospital where she was treated for anemia. Her HBG was 6. She received 2 units PRBCs. She is feeling better. She has no known source of bleeding. They didn't tell her where she was bleeding from like stomach or GI tract.she has a known iron deficiency anemia. She doesn't eat much red meat. She was placed on iron supplement. She was also found to have a broken screw from her right shoulder replacement. She is going to see her ortho about that and has an appointment in May in [place] for possible hip replacement. Her right shoulder aches . She has an appointment with her neurologist this afternoon. She has no new problems. Allergies: Erythromycin and Clarithromycin Code Status: [facility] BP 129/77 Pulse 82 Temp 37.6 C (99.6 F) Resp 18 Wt 43.5 kg (95 lb 12.8 oz) SpO2 95% BMI 16.97 kg/m Physical Exam Vitals reviewed. Constitutional: General: [...] abdominal tenderness. Musculoskeletal: Cervical back: Neck supple. Skin: General: Skin is warm. Coloration: Skin is pale. Neurological: Mental Status: She is alert and oriented to person, place, and time. Motor: Tremor present. Gait: Gait abnormal (she ambulates in the unit with a walker). Psychiatric: Mood and Affect: Mood normal. Behavior: Behavior normal. Thought Content: Thought content normal. Judgment: Judgment normal. Summary / Assessment / Plan 1. Iron deficiency anemia, unspecified iron deficiency anemia type 2. S/P reverse total shoulder arthroplasty, right 3. Multifactorial gait disorder 4. Osteoarthritis of left hip, unspecified osteoarthritis type Reports from the hospital reviewed. Patient with iron deficiency anemia. Continue supplement. Check CBC in 1 week. Follow up with ortho for broken screw and left hip arthroplasty surgery. Continue other orders as directed. ELECTRONICALLY SIGNED BY: Alexey Polo DO documented in this encounter [facility] 04-11-2023 History of Present illness Narrative Patient Name: Melanie Espinoza Date of : 1955 Date of Service: 04/11/2023 Facility: [facility] Type of Visit: Subsequent Visit Subjective Melanie Espinoza is a 67 y.o. female [facility]. Melanie is having a lot of hip pain and has an appointment for ortho coming up to discuss hip replacement. had a fall recently and had to be sent to the ER. There were no fractures. She is back and has no new problems. Allergies: Erythromycin and Clarithromycin Code Status: [facility] BP 132/64 Temp 36.6 C (97.9 [...] Alexey Polo DO documented in this encounter [facility] 04-04-2023 Note Orthopedic Surgery Subjective Pain [...] Torres MD Orthopaedic Surgery 04/04/23 12:44 PM [facility] 03-04-2023 Note HPI *Left hip Reported by patient. Location: left Quality: increasing Severity: moderate to severe pain Context: walker Aggravating Factors: cannot identify Associated Symptoms: no redness; no warmth; no ecchymosis; no drainage; no swelling; no fever; no chills; no calf pain Previous Surgery: surgical procedure: Prior Imaging: x ray ORIF left hip fx [id number] ORIF LT HIP ROS Patient reports no [...] hip OA/AVN Plan Refer to Dr Plaza [facility] 01-08-2023 Note HNO ID: [id number] Author: Tai Hinojosa MD Service: ? Author Type: Physician Type: Progress Notes Filed: 01/08/2023 2:41 PM Note Text: January 08, 2023 Tai Hinojosa MD [address] / [address] [address] Esteban Garza MD ([facility]) [address] [place] [address] Melanie Alexis : 1955 Interval History: Melanie Espinoza is [...] pulse 83, h (more content not included)... [facility] 07-03-2022 Note HNO ID: [id number] Author: Tai Hinojosa MD Service: ? Author Type: Physician Type: Progress Notes Filed: 07/03/2022 12:35 PM Note Text: July 03, 2022 Tai Hinojosa MD [address] / [address] [address] Esteban Garza MD ([facility]) [address] [place] [address] Melanie Espinoza : 1955 Interval History: Melanie [...] This could b (more content not included)... [facility] 06-18-2022 Evaluation note Encounter Date Diagnosis Assessment [...] arthroplasty of right shoulder (ICD-10 - Z96.611) [facility] Other 10-17-2022 Evaluation note* Encounter Date Diagnosis [...] exercises, these were demonstrated. Call with questions/concerns. [facility] Other 09-20-2022 Instructions* Patient Instructions* Tai Hinojosa MD - 01/02/2022 9:43 AM EDT 1) Double the dose of Austedo to 12 mg twice a day for 1 month, then increase further to 18 mg 2) continue clonazepam and methocarbamol 3) continue primidone for the action tremor [facility] History of Present illness Narrative* Tai Hinojosa MD - 01/02/2022 9:25 AM EDT January 02, 2022 Tai Hinojosa MD [address] / [address] [address] Esteabn Garza MD ([facility]) [address] [place] [address] Melanie Espinoza : 1955 Interval History: Melanie [...] on the day of service, which included [id number] patient care, completing clinical documentation, obtaining and/or reviewing separately obtained history, performing a medically appropriate examination, counseling and educating the patient/family/caregiver, and ordering medications, tests, or procedures. Thank you for including me in the care of this interesting patient. 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 Her sodium is within normal limit. Continue fluid restriction. Nov, HTN (hypertension) (ICD-10 - I10) Blood pressure is high today but usually well controlled at the [facility]. Continue current medications. Nov, Hydronephrosis (ICD-10 - N13.30) She reported that she was seen by neurologist and had extensive work-up done. She was advised intervention needed. Nov, Dyslipidemia (ICD-10 - E78.5) Continue statins. Continue follow with PCP for LFTs and lipid profile monitoring. [facility] Other 08-22-2022 Evaluation note* Encounter Date Diagnosis [...] arthroplasty of right shoulder (ICD-10 - Z96.611) [facility] Other 07-14-2022 Evaluation note* Encounter Date Diagnosis [...] on her own. Call with questions/concerns . 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 [...] 07/12/2021 12:53 PM EDT Donita calling from [facility] States the pt received a letter from insurance company that medication Austedo 6 mg was denied. Will need prior authorization. Can you please assist with PA. Fielding requesting that once PA approved to fax to them at [phone]. Thanks. * Telephone Encounter - Kailey Andrews - 07/12/2021 11:08 AM EDT Patient called and would like to know if the doctor can reach out to the insurance company to do a prior auth for Austedo 6mg to receive medication.Please advise Thank you, Kailey documented in this encounterRiver[facility] Institute03-17-2022 NotePROCEDURE: XR SHOULDER RT 2V or > [...] Electronically authenticated by: CM RAMIREZ Date: 2021-06-29 14:37[facility]02-15-20[facility] Evaluation note* Encounter Date Diagnosis Assessment [...] pain of right shoulder (ICD-10 - M25.511) [facility] Other 12-08-2021 Evaluation note* Encounter Date Diagnosis [...] stated that she has an appointment with manager recruitment to check her thyroid. She follow-up with her family doctor as well. 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 [facility]* Diagnosis Iron deficiency anemia, unspecified iron deficiency anemia type- Primary S/P reverse total shoulder arthroplasty, right Multifactorial gait disorder Abnormality of gait Osteoarthritis of left hip, unspecified osteoarthritis type [facility] this [facility] Narrative - Reported* Type Description Date Medical History hypothyroidism Medical History anxiety and depression 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 Surgical History tubal revision 1984 Surgical History HIP FRACTURE 02/2020 Surgical History COLONSCOPY 2020 Surgical History RECTAL PROLAPSE 12/2020 Hospitalization History SEE ABOVE Hospitalization History RECTAL PROLAPSE 12/2020 [facility] Prevention Other Hisctqg general Narrative - Reported* Type Description Date Medical History hypothyroidism Medical History anxiety and depression 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 Surgical History tubal revision 1984 Surgical History HIP FRACTURE 02/2020 Surgical History COLONSCOPY 2020 Surgical History RECTAL PROLAPSE 12/2020 Surgical History right reverse total shoulder 20 22 Hospitalization History SEE ABOVE Hospitalization History RECTAL PROLAPSE 12/2020 [facility] Prevention Other InstructionsNot on filedocumented in this encounter GeoPollInstructionsNot on filedocumented in this encounter GeoPoll Summary Purpose Family History No Family History [...] PM DNR Comfort Care Arrest (DNR -CCA) [place] 01/07/2021 4:37 PM 01/08/2021 7:11 PM Full Code 12/23/2020 7:31 AM 12/26/2020 12:12 PM Chief Complaint and Reason for Visit Chief Complaint Shoulder pain Shoulder pain Shoulder pain Shoulder pain Shoulder pain Z96.611 M75.101 Additional Source Comments INFORMATION SOURCE (unrecogn ized section and content) DATE CREATED AUTHOR 01/14/2020 [facility] DATE CREATED AUTHOR AUTHOR'S ORGANIZ ATION 02/23/2021 [facility] DATE CREATED AUTHOR AUTHOR'S ORGANIZ ATION 04/12/2021 [facility] DATE CREATED AUTHOR AUTHOR'S ORGANIZ ATION 09/26/2021 [facility] DATE CREATED AUTHOR AUTHOR'S ORGANIZ ATION 06/06/2022 [facility] DATE CREATED AUTHOR AUTHOR'S ORGANIZ ATION 08/09/[address] [facility] DATE CREATED AUTHOR AUTHOR'S ORGANIZ ATION 04/10/2023 [facility] DATE CREATED AUTHOR AUTHOR'S ORGANIZ ATION 05/16/2023 [facility] REASON FOR VISIT (unrecogniz ed section [...] Alexey Polo DO Primary Care Provider Active Computer Graphic Artist Relationship Specialty Start Date End [place] [address] [place] [address] PCP - General Family Practice 07/21/18 Computer Graphic Artist Relationship Specialty Start Date End Date Esteban Garza [address] [place] [address] PCP - General Family Medicine 07/21/18 Computer Graphic Artist Relationship Specialty Start Date End Date ChristAlexeyDO [address] [place] [address] PCP - General Family Medicine 03/27/22 Computer Graphic Artist Relationship Specialty Start Date End Date Christ Alexeyconcepción Garcia DO [address], [place] [address] PCP - General Family Medicine 03/27/22 Source Comments (unrecognize d section and content) In the event this informatio n is protected by the Federal Confidentiality of Alcohol and Drug Abuse Patient Records regulations: The Federal rules restrict any use of the information to criminally investigate or prosecute any alcohol or drug abuse patient.[facility] Institute[facility] the event this information is protected by the Federal Confidentiality of Alcohol and Drug Abuse Patient Records regulations: The Federal rules restrict any use of the information to criminally investigate or prosecute any alcohol or drug abuse patient.[facility] Goals (unrecognized section and content) Goals may [...] BE BASED ON THE PRIMARY CLINICAL RECORDS. [facility] [employer] [facility]. provides no warranty or guarantee of the accuracy or completeness of information in this document.
[2023-05-19] MEDS: MORPHINE SULFATE 2 MG/ML SYRINGE IV (13:35)
[2023-05-19 15:45] VITALS: PULSE 66; RESP 14; O2SAT 97
== END 2023-05-19 16:05 | disposition home or self-care (01) ==
PROVIDERS: Emergency Provider Emergency Medicine; PCP Family Medicine
DX: M25.552 Pain in left hip (principal); Z79.899 Other long term (current) drug therapy; F41.9 Anxiety disorder, unspecified; E78.5 Hyperlipidemia, unspecified; E87.1 Hypo-osmolality and hyponatremia; I10 Essential (primary) hypertension; Z98.51 Tubal ligation status; Z87.891 Personal history of nicotine dependence
CPT/HCPCS: 73502; 96374; 99284; J2270

== ENCOUNTER 2023-09-10 07:06 | Outpatient (OUT) | payer MEDICARE, MEDICAID, SELFPAY ==
--- NOTE | 2023-09-10 | NM_ITS ---
Patient Name: PATTY ROSE MR#: [id number] : 1955 Exam Date: 09/10/2023 Ordering Doctor: DR JOHN POLO RADIOLOGY REPORT PROCEDURE: NM MARKEL PERF SPECT REST STR COMPARISON: None. INDICATIONS: ABNORMAL EKG, PRE-OP HIP REPLACEMENT TECHNIQUE: Exam Description: Stress/Rest one day protocol gated SPECT Rest Imagin.4 mCi Tc-99m Cardiolite IV on 09/10/2023 Stress Imaging 31.5 mCi Tc-99m Cardiolite IV on 09/10/2023 Exercise Protocol: 0.4 mg Lexiscan given IV Heart Rate (bpm): Rest: 64 Max: 85 PMHR: 55 Blood Pressure: Rest: 130/82 Max: 130/82 Symptoms: Rest and peak stress ECG findings were abnormal and the exercise portion of the study was abnormal per attending physician Dr. Ball due toEKG changes, inferolateral st-segment downsloping with Lexiscan. For more details please see separate cardiac stress test report. FINDINGS: QUALITY OF STUDY: Excellent. PERFUSION DEFECT: None. LOCATION: N/A SIZE: N/A. SEVERITY: N/A. TYPE: N/A. WALL MOTION: Normal. LV SIZE: Normal. 50 mL. TID / TCD: None; 0.6 LVEF: Normal. Calculated EF 79%. SUMMARY: Myocardial perfusion imaging study is NORMAL. CONCLUSION: 1. Normal nuclear medicine myocardial perfusion imaging. 2. Abnormal rest/stress test. Please see associated report. Dictated by: Maxi Elise M.D. on 09/10/2023 at 14:48 Approved by: Maxi Elise M.D. on 09/10/2023 at 14:52
--- OUTSIDE RECORDS SUMMARY | 2023-09-10 07:09 | XMS_ITS | CCD ---
Author Organization [facility] Care Team Providers Care Window Caser Name Role Phone HERVE STARKEY Admitting Unavailable ESTEBAN GARZA Referring Unavailable ESTEBAN GARZA Primary Care Unavailable HERVE STARKEY Attending Unavailable Alexey Polo Unavailable Radha Bosch Unavailable Stevenson Corbin Unavailable Sena Eugene Unavailable MD Stevenson Corbin Attending Provider [phone] DO Alexey Polo Primary Care Provider Esteban Garza Primary Care Provider [phone] Esteban Garza Primary Care Provider CHRIST, DR ALEXEY Garcia Primary Care Unavailable LENA PALMER Attending Unavailable ZARI Gore, LENA Admitting Unavailable DR CM RAMIREZ V Consulting Unavailable SOFI DISLA Consulting Unavailable LENA [...] CHRIST, DR ALEXEY Garcia Primary Care Unavailable DR MESHA CARRASCO Consulting Unavailable PAY ., DR MILES Attending [...] DISLA Consulting Unavailable JEFE SAEED Consulting [facility]available [facility] Primary Care Provider [phone] MD Stevenson Corbin Attending Provider Olexa, Steevnson Admitting Unavailable Olexa, Stevenson Attending [facility]available [facility] Unavailable Olexa, Stevenson Admitting Unavailable Olexa, Stevenson Attending [facility]available [facility] Primary Care Unavailable Olexa, Stevenson Admitting Unavailable Olexa, Stevenson Attending Unavailable [facility] Primary Care Unavailable Olexa, Stevenson Admitting Unavailable Olexa, Stevenson Attending [facility]available [facility] Primary Care Unavailable Olexa, Stevenson Admitting Unavailable Olexa, Stevenson Attending [facility]available [facility] Primary Care Unavailable Olexa, Stevenson Admitting Unavailable Olexa, Stevenson Attending Unavailable [facility] Primary Care Unavailable Olexa, Stevenson Admitting Unavailable Olexa, Stevenson Attending Unavailable [facility] Primary Care Unavailable Olexa, Stevenson Admitting Unavailable Olexa, Stevenson Attending Unavailable [facility] Primary Care Unavailable Olexa, Stevenson Admitting Unavailable Olexa, Stevenson Attending Unavailable [facility] Primary Care Unavailable [place]long Alexey CACERES Primary Care Provider Esteban Garza Primary Care Provider ESTEBAN GARZA Primary Care Unavailable TAI HINOJOSA Referring Unavailable TAI HINOJOSA Attending Unavailable TAI HINOJOSA Attending Unavailable ESTEBAN GARZA Primary Care Unavailable TAI HINOJOSA Attending Unavailable ESTEBAN GARZA Primary Care Unavailable ERNESTO PLAZA Referring Unavailable HERVE STARKEY Referring Unavailable ERNESTO PLAZA Referring Unavailable ERNESTO PLAZA Attending Unavailable ERNESTO PLAZA Attending Unavailable HERVE STARKEY Attending Unavailable JUAN LUISNG, ALEXEY G Referring Unavailable FURLONG, ALEXEY G Primary Care Unavailable FURLONG, ALEXEY G Referring Unavailable FURLONG, ALEXEY G Primary Care Unavailable FURLONG, ALEXEY G Referring Unavailable FURLONG, ALEXEY G Primary Care Unavailable FURLONG, ALEXEY G Referring Unavailable FURLONG, ALEXEY G Primary Care Unavailable Allergies Allergy Classification Reported Allergen(s) Allergy Type Date of Onset Reaction(s) Facility (5 sources) Azithromycin; Translations: [AZITHROMYCIN] Drug Allergy 0 Unknow [facility] Repository (8 sources) Erythromycin; Translations: [erythromycin] Drug Allergy 7 Nausea And Vomiting, Unknown [facility] (6 sources) erythromycin base; Translations: [Erythromycin Base] Allergy to substance 1 Unknown Reaction [facility] (1 source) Azithromycin Drug Allergy 2 [facility] Repository (6 sources) Clarithromycin; Translations: [CLARITHROMYCIN] Drug Allergy 1 Nausea And Vomiting [facility] Medications Current Medications Medication Drug Class(es) Dates Sig (Normalized) Sig (Original) acetaminophen 500 mg oral tablet (20 sources) Start: 10-09-2021 take 2 tablets by [...] by mouth every 8 hours as needed. amLODIPine 5 mg oral tablet (20 sources) Dihydropyridine Calcium Channel Michael Start: 2 take 10 mg by mouth once daily [...] d aily. atorvastatin 40 mg oral tablet (20 sources) HMG-CoA Reductase Inhibitor Start: take 1 [...] mg / cholecalciferol 200 unt oral tablet (7 sources) Vitamin D Start: 09-13-2021 take 2 [...] times a day for 30 day(s) Active cyclobenzaprine hydrochloride 10 mg oral tablet (5 sources) Muscle Relaxant Start: 12-23-2022 take 1 tablet by mouth three times daily as needed for muscle spasms cyclobenzaprine (FLEXERIL) 10 mg tablet Take 1 tablet (10 mg total) by mouth 3 (three) times a day as needed for muscle spasms. 0 12/23/2022 Active deutetrabenazine 12 mg oral tablet (13 sources) Start: 02-26-2022 take 2 tablets by mouth in the [...] g) by mouth twice daily with meals. Take 2 tablets (24 m g) by mouth twice daily with [...] mg/ml / guaiFENesin 20 mg/ml oral solution (5 sources) Uncompetitive U-aynmsg-W-aspartate Receptor Antagonist, Sigma-1 Agonist take 10 mL by mouth every six hours as needed for cough dextromethorphan-guaiFENesin (ROBITUSSIN-DM) 10-100 mg/5 mL liquid Take 10 mL by mouth every 6 (six) hours as needed for cough. Give 10 milliliter by mouth every 6 hours as needed for cough 0 Active Comment on above: Take 10 mL by mouth every 6 hours as needed. ferrous sulfate 325 mg oral tablet (19 sources) Sta rt: 2 take 325 mg [...] propionate 0.05 mg/actuat metered dose nasal spray (19 sources) Corticosteroid Start: 03-19-2022 fluticasone propionate (FLONASE) 50 mcg/actuation nasal spray Start: 09-21-2021 Fluticasone Pr opionate 50 MCG/ACT Nasal Suspension As directed. Quantity: 0 Refills: 0 Ordered: 21-Sep-2021 DO Start : 21-Sep-2021 Active Start: 09-13-2021 Fluticasone Pr opionate Active 1 SPRAY INTRANASAL Daily September 12, 2021 11:00pm take 1 puff(s) by in halation twice daily Fluticasone Propionate 50 mcg/actuation diskus inhaler Inhale 1 Puff as instructed twice daily. 0 Active take 1 spray(s) nasa l route once daily Fluticasone Propionate 50 MCG/ACT 1 spray in each nostril Nasally Once a day Active Comment on above: Inhale 1 Puff [...] in afternoon, 2 (600 MG) at bedtime take 1 tablet by courtney th three times daily gabapentin (NEURONTIN) 600 mg tablet Take 600 mg by mouth three times a day. 0 Active Comment on above: Take 1 capsule in e morning, one in early afternoon, and 2 in the evening Take 600 mg by mouth three times a day. ibuprofen 200 mg oral tablet (9 sources) Nonsteroidal Anti-inflammatory Drug Start: 09-13-2021 take 600 mg by mouth every eight hours Ibuprofen Active 600 MG PO Q8H September 12, 2021 11:00pm Ibuprofen 200 mg cap Take by mouth every 6 hours as needed. 0 Active take 3 capsules by m outh every eight hours Ibuprofen 200 MG 3 capsule with food or milk as needed Orally Three times a day Active take 3 tablets by mo uth once daily as needed Ibuprofen 200 MG Oral Tablet TAKE 3 TABL ET Daily PRN Quantity: 0 Refills: 0 Ordered: 25-Sep-2021 DO Active Comment on above: Take by mouth every 6 hours as needed. levothyroxine sodium 0.075 mg oral tablet (20 sources) l-Thyroxine Start: 0 take 1 tablet [...] breakfast. loperamide hydrochloride 2 mg oral capsule (20 sources) Opioid Agonist Start: 09-13-2021 Loperamide (Imodium [...] for loose stool 0 Active take 1 capsule by mo uth every six hours as needed loperamide (IMODIUM) 2 mg cap(s) Take 2 mg by mouth four times daily as needed. 0 Active take 1 tablet by mouth every six hours Imodium A-D 2 MG 1 tablet as needed Orally Four times a day Active Comment on above: Take 2 mg by mouth f our times daily as needed. methocarbamol 750 mg oral tablet (16 sources) Muscle Relaxant Start: 1 take 750 [...] times daily. ondansetron 4 mg oral tablet (13 sources) Serotonin-3 Receptor Antagonist Start: 2 take [...] pantoprazole 40 mg delayed release oral tablet (20 sources) Proton Pump Inhibitor Start: 06-29-19 take [...] by mouth once daily. polyethylene glycol 3350 21249 mg powder for oral solution (8 sources) Osmotic Laxative Start: 09-13-2021 Polyethylene Glycol 3350 (Miralax) 17 gram/dose Powder Active 17 GM PO Daily September 12, 2021 11:00pm Comment on above: Take by mouth once d aily. Dissolve dose in 4 - 8 ounces of liquid and take as directed. sodium chloride 1000 mg oral tablet (20 sources) Start: 10-09-2021 take 1000 mg by [...] times daily. sucralfate 1000 mg oral tablet (13 sources) Aluminum Complex Start: 09-13-2021 sucralfate (CARAFATE) 1 gram tablet take 1 tablet by mouth every six hours Sucralfate 1 GM 1 tablet on an empty stomach Orally FOUR TIMES A DAY Active Comment on above: Take 1 g by mouth fo ur times daily. Completed/Discontinued Medications Medication Drug Class(es) Dates Sig (Normalized) Sig (Original) acetaminophen 325 mg / HYDROcodone bitartrate 5 mg oral tablet (2 sources) Opioid Agonist take 1 tablet by courtney th every eight hours as needed HYDROcodone-acetami nophen (NORCO) 5-325 mg per tablet Take 1 tablet by mouth every 8 hours as needed for pain. 0 Active take 1 tablet by courtney th every six hours HYDROcodone-Acetaminophen 5-325 MG 1 tab let as needed Orally every 6 hrs Active Comment on above: Take 1 tablet by courtney every 8 hours as needed for pain. acetaminophen 325 mg / oxyCODONE hydrochloride 5 mg oral tablet (9 sources) Opioid Agonist Start: 09-19-19 take 1 tablet by mouth every four hours as needed for pain Percocet 5-325 MG 1 tablet as needed for pain Orally up to every 4 hrs for 5 days KALEE: [id number] Oct, Not-Taking alendronic acid 70 mg oral tablet (20 sources) Bisphosphonate Start: 05-07-19 End: 09-14-19 alendronate (FOSAMAX) 70 mg tablet once each week. 0 05/07/2018 Active take 1 tablet by mouth once [...] min. ascorbic acid 500 mg oral tablet (3 sources) Vitamin C take 1 tablet by [...] End: 07-05-2020 Buspirone Discontinued 15 MG PO BID@09,14 June 27, 2020 11:00pm July 05, 2020 [...] 15 mg by mouth three times daily. Take 10 mg by mouth three times daily. Calcium (1 source) Phosphate Binder, Calcium Calcium 600 + D TABS TAKE 2 TABLET Daily Quantity: 0 Refills: 0 Ordered: 25-Sep-2021 DO Active calcium carbonate 1500 mg oral tablet (2 sources) calcium carbonat e (CALTRATE) 600 mg calcium (1,500 mg) tab Take 600 mg by mouth. 0 Active Comment on above: Take 600 mg by mouth . clonazePAM 1 mg oral tablet (20 sources) Benzodiazepine Start: take 1.5 tablets by mouth three times daily at bedtime clonazePAM (KLONOPIN) 1 mg tablet Indications: Lingual facial buccal dyskinesia , Akathisia , Excessive physiologic tremor Take 1.5 tablets by mouth three times daily for 90 days. [including bedtime] 135 tablet 2 01/08/2023 Active Start: 12-08-2020 take 1 tablet by courtney th three times daily clonazePAM (KlonoPIN) 1 mg [...] by mouth t wice daily as needed. Take 1.5 tablets by mouth three times daily for 90 days. [including bedtime] escitalopram 10 mg oral tablet (16 sources) Serotonin Reuptake Inhibitor Start: End: 2 take 1 tablet by mouth once daily Escitalopram Oxalate (Lexapro) 10 mg tablet Discontinued 10 MG PO Daily July 04, 2020 11:00pm September 13, 2021 11:01am Start: 07-16-2018 End: 07-05-2020 take 1 tablet by mouth once daily escitalopram oxalate (LEXAPRO) 20 mg tablet Take 20 mg by mouth once daily. 0 07/16/2018 Active Comment on above: Take 20 mg by mouth once daily. furosemide 20 mg oral tablet (3 sources) Loop Diuretic Start: 07-05-2020 End: 09-13-2021 take 20 mg by mouth once daily Furosemide Discontinued 20 MG PO Daily at 0800 30 July 04, 2020 11:00pm September 13, 2021 11:01am Magnesium (6 sources) Start: 06-28-2020 End: 09-13-2021 take 250 [...] mouth . menthol 0.04 mg/mg topical gel (12 sources) Start: 09-13-2021 End: 10-18-2021 Menthol (Biofreeze (Menthol)) 4 % Gel Discontinued 1 APPLIC TOPICAL Q8H September 12, 2021 11:00pm October 18, 2021 6:26am menthol (BIOFREE ZE, MENTHOL,) 4 % topical gel Apply to affected area three times daily as needed. 0 Active Comment on above: Apply to affected ar ea three times daily as needed. pravastatin sodium 40 mg oral tablet (6 sources) HMG-CoA Reductase Inhibitor Start: 1 End: 2 take 40 mg by mouth once daily at bedtime Pravastatin Discontinued 40 MG PO Daily at bedtime June 27, 2020 11:00pm September 13, 2021 11:01am Comment on above: Take 40 mg by mouth once daily. primidone 250 mg oral tablet (20 sources) Anti-epileptic Agent Start: take 1 tablet by mouth twice daily primidone (MYSOLINE) 250 mg tablet Indications: Action tremor Take 1 tablet by mouth twice daily. 60 tablet 5 08/12/2020 Active take 250 mg by mouth once daily PRIMIDONE ORAL Take 250 mg by mouth Daily at 0630. seizures 0 Active Comment on above: Take 1 tablet by courtney twice daily. traZODone hydrochloride 100 mg oral tablet (20 sources) Serotonin Reuptake Inhibitor Start: 12-29-2022 traZODone (DESYREL) 100 mg tablet Start: 10-09-2021 take 150 mg by mouth at bedtim e Trazodone Active 150 MG PO Bedtime October 08, 2021 11:00pm Start: 06-28-2020 End: 09-13-2021 take 150 mg by mouth once daily at bedtime Trazodone Discontinued 150 MG PO Daily at bedtime June 27, 2020 11:00pm September 13, 2021 11:02am Comment on above: Take 150 mg by mouth daily at bedtime. Triamcinolone (8 sources) Corticosteroid Start: 05-30-19 22 [...] Administrative/social admission (1 source) [place] in [place]; Translations: [Person living in residential institution] Episodic Anxiety disorders (20 sources) Anxiety state; Translations: [Anxiety state, unspecified] Onset: 2 07-05-2020 Chronic Chronic kidney disease (5 sources) Chronic kidney disease; Translations: [Chronic kidney [...] initial encounter] Onset: 2 Episodic Esophageal disorders (5 sources) Gastro-esophageal reflux disease without esophagitis; Translations: [Gastroesophageal reflux disease] Onset: 3 10-19-2022 Chronic Essential hypertension (20 sources) Benign essential hypertension; Translations: [Benign essential [...] aftercare (1 source) Other long term care phlebotomist (current) drug therapy; Translations: [OTH ASSISTED CURRENT DRUG THERAPY] Onset: 3 Episodic Other bone disease and musculoskeletal deformities (2 sources) Idiopathic aseptic necrosis of left femur; Translations: [Idiopathic aseptic necrosis of left femur] Onset: 3 Chronic Other connective tissue disease (12 sources) History of reverse prosthetic total arthroplasty [...] [Unspecified hydronephrosis] 06-30-2020 Episodic Other endocrine disorders (4 sources) Syndrome of inappropriate vasopressin secretion; Translations: [Syndrome of inappropriate secretion of antidiuretic hormone] Onset: 3 09-14-2022 Chronic Other endocrine disorders (4 sources) Hypoglycemia; Translations: [Hypoglycemia, unspecified] Onset: 3 09-14-2022 Chronic Other hereditary and degenerative nervous system conditions (2 sources) Orofacial dyskinesia; 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 Other hereditary and degenerative nervous system conditions (1 source) Restless legs syndrome; Translations: [RESTLESS LEGS SYNDROME] Onset: 3 Chronic Other hereditary and degenerative nervous system conditions (5 sources) Movement disorder; Translations: [Extrapyramidal and movement disorder, unspecified] Onset: 2 04-14-2023 Chronic Other hereditary and degenerative nervous system conditions (6 sources) Tardive dyskinesia; Translations: [Drug induced subacute [...] physiological tremor; Translations: [Tremor, unspecified] Episodic Other nutritional; endocrine; and metabolic disorders [...] conditions (not mental disorders or infectious disease) (12 sources) Electrocardiogram abnormal; Translations: [Nonspecific abnormal electrocardiogram [ECG] [EKG]] Onset: 4 Episodic Residual codes; unclassified (3 sources) Altered [...] Problem Classification Problem Date Documented Date Episodic/Chronic Abdominal hernia (4 sources) Hiatal hernia; Translations: [Diaphragmatic hernia without obstruction or gangrene] Onset: 03-12-2023 03-12-2023 Episodic Anal and rectal conditions (5 sources) Rectal prolapse; Translations: [Rectal prolapse] Onset: 02-04-2021 05-18-2022 Episodic Deficiency and other anemia (1 source) Anemia, unspecified Onset: 03-22-2021 Resolved: 03-22-2021 Episodic Deficiency and other anemia (4 sources) Anemia; Translations: [Anemia, unspecified] Onset: 03-23-2022 03-23-2022 Episodic Fluid and electrolyte disorders (14 sources) Hypo-osmolality and hyponatremia; Translations: [Acute hyponatremia] Onset: 12-23-2020 Resolved: 12-06-2021 Episodic Fracture of neck of femur (hip) (4 sources) Closed fracture of neck of femur; Translations: [Fracture of unspecified part of neck of unspecified femur, initial encounter for closed fracture] Onset: 06-16-2020 02-03-2021 Episodic Nausea and vomiting (8 sources) Nausea; Translations: [Nausea with vomiting, unspecified] Onset: 02-23-2022 Episodic Other connective tissue disease (15 sources) Unspecified rotator cuff tear or rupture of right shoulder, not specified as traumatic; Translations: [Tear of right rotator cuff, unspecified tear extent, unspecified whether traumatic] Onset: 05-30-2021 Resolved: 12-04-2021 Episodic Other connective tissue disease (4 sources) Swelling of lower limb; Translations: [Other specified soft tissue disorders] Onset: 12-22-2020 12-22-2020 Episodic Other connective tissue disease (4 sources) Muscle weakness; Translations: [Muscle weakness (generalized)] Onset: 03-23-2022 03-23-2022 Episodic Other diseases of kidney and ureters (2 sources) Unspecified hydronephrosis Onset: 03-22-2021 Resolved: 12-06-2021 Episodic Other nervous system disorders (5 sources) Multifactorial gait problem; Translations: [Other abnormalities of gait and mobility] Onset: 03-23-2022 03-23-2022 Episodic Other non-traumatic joint disorders (6 sources) Pain in right shoulder; Translations: [PAIN IN RIGHT SHOULDER] Onset: 05-30-2021 Resolved: 05-30-2021 Episodic Other non-traumatic joint disorders (4 sources) Pain of left hip joint; Translations: [Pain in left hip] Onset: 06-16-2020 02-03-2021 Episodic Other non-traumatic joint disorders (2 sources) Pain in left hip; Translations: [Pain in left hip] Onset: 03-04-2023 Episodic Other nutritional; endocrine; and metabolic disorders (1 source) Abnormal weight loss Onset: 03-22-2021 Resolved: 03-22-2021 Episodic Pneumonia (except that caused by tuberculosis or sexually transmitted disease) (4 sources) Pneumonia; Translations: [Pneumonia, unspecified organism] Resolved: [...] Name Value Interpretation Reference Range Facility Follow-Upon 07-04-2023 Follow-Up [id number] Melanie Espinoza 1955 F Date Provider Department Center 07/04/2023 Akilah-ERNESTO PLAZA MP ORTH[facility]THO Family History Family history unknown: Yes Level of Service:61064 [place] OFFICE/OUTPATIENT ESTABLISHED MOD MDM 30 MIN () Reason for Visit and Comments: Pain [136] Normal [facility] CT HIP LEFT WO IV CONTRASTon 05-21-2023 CT HIP LEFT WO IV CONTRAST CT HIP LEFT WO IV CONTRAST 05/21/2023 1:35 PM CLINICAL INDICATIONS: Hip pain. Avascular necrosis. TECHNIQUE: Multidetector CT axial slices were obtained without IV contrast. Multiplanar reformats, MIP, volume rendered 3-D images were generated on a separate workstation and reviewed to further define anatomy and possible pathology. All CT scans at this facility use dose modulation, iterative reconstruction, and/or weight based dosing when appropriate to reduce radiation dose to as low as reasonably achievable COMPARISON: None. FINDINGS: There are 3 cannulated screws traversing the left femoral neck. The superiormost of these extends to the superior cortex of the left femoral head. There is sclerosis and flattening of the articular surface with areas of subcortical lucency and cystic change. Joint space narrowing is severe superiorly with sclerosis and some irregularity at the acetabular articular surface as well. Some marginal new bone formation is present at the acetabulum anteriorly and posteriorly. There is no acute femoral neck or proximal femoral abnormality. Visualized pelvic osseous structures are otherwise intact. Fluid density is present in the pelvis consistent with severe distention of the urinary bladder although other cystic lesions cannot be completely excluded. IMPRESSION: Severe left hip osteoarthritis with secondary to prior fracture and deformity as described above. No acute osseous injury suggested on CT assessment. Pelvic fluid appears to relate to severe urinary bladder distention. This is not completely assessed. Electronically signed: Scooby Kelly. Normal [facility] CT PELVIS WO IV CONTRASTon 0 05-21-2023 CT PELVIS WO IV CONTRAST Clinical history: Pain. Avascular necrosis. CT pelvis without contrast: 05/21/2023 PROCEDURE: Axial images were obtained through the pelvis. Coronal and sagittal reconstructions were performed. All CT scans at this facility use dose modulation, iterative reconstruction, and/or weight based dosing when appropriate to reduce radiation dose to as low as reasonably achievable FINDINGS: Left hip deformity is consistent with sequela of remote avascular necrosis with femoral head and neck deformity. Joint space narrowing, sclerosis, and cystic changes are present with remodeling of the acetabulum superiorly. The distal aspect of screws breach the articular surface. No other acute osseous abnormality is evident. A large fluid density structure in the pelvis is most consistent with a distended urinary bladder. There is moderate amount of stool within the colon. IMPRESSION: Severe left hip osteoarthritis with acetabular and femoral deformity consistent with previous avascular necrosis. Urinary bladder distention. Electronically signed: Scooby Kelly. [facility] CNOVon 05-14-2023 CNOV Office Visit ([facility]) MELANIE ESPINOZA ([id number]) 1955 F Date Time Provider Department 05/14/23 4:00 PM TAI HINOJOSA During your visit today, we recorded the following information about you: Pulse Blood pressure Weight Height 81/minute 175/92 43.1 kg 1.6 m Tai Hinojosa MD 05/14/2023 4:40 PM Signed May 14, 2023 Tai Hinojosa MD [address] / [place] [id number] Esteban Garza MD ([facility]) [address] [place] [address] Melanie Espinoza : 1955 Interval History: Melanie Espinoza is a 67 year old woman with a 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 Her symptoms persist. Increasing the clonazepam [...] facial m (more content not included)... Normal [facility] Follow-Upon 04-04-2023 Follow-Up [id number] Abena Espinozane 1955 F Date Provider Department Center 04/04/2023 293-ERNESTO [facility]ZA MP ORTHO MPORTHO Family History Family history unknown: Yes Level of Service:12889 [place] OFFICE/OUTPATIENT ESTABLISHED LOW MDM 20 MIN (GC) Reason for Visit and Comments: Pain [136] - L hip possible fracture, patient states [facility] fell [facility] last night Normal [facility] Office Visiton 03-04-2023 Follow-up visit [id number] Melanie Espinoza 1955 F Date Provider Department Center 03/04/2023 Shea-HERVE STARKEY MP ORTHO MPORTHO Family History Family history unknown: Yes Level of Service:88650 [place] OFFICE/OUTPATIENT ESTABLISHED LOW MDM 20-29 MIN Reason for Visit and Comments: Pain [136] Normal [facility] CNOVon 01-08-2023 CNOV Office Visit ([facility]) MELANIE ESPINOZA ([id number]) 1955 F Date Time Provider Department 01/08/23 2:00 PM TAI HINOJOSA During your visit today, we recorded the following information about you: Pulse Blood pressure Weight Height 83/minute 150/72 44.5 kg 1.6 m Tai Hinojosa MD 01/08/2023 2:41 PM Signed January 08, 2023 Tai Hinojosa MD [address] / [place] [address] Esteban Garza MD ([facility]) [address] [place] [address] Melanie Espinoza : 1955 Interval History: Melanie [...] no CP (more content not included)... Normal [facility] CNOVon 07-03-2022 CNOV Office Visit ([facility]) MELANIE ESPINOZA ([id number]) 1955 F Date Time Provider Department 07/03/22 12:00 PM TAI HINOJOSA During your visit today, we recorded the following information about you: Pulse Blood pressure Weight 88/minute 135/82 49.9 kg Tai Hinojosa MD 07/03/2022 12:35 PM Signed July 03, 2022 Tai Hinojosa MD [address] / [place] [id number] Esteban Garza MD ([facility]) [address] [place] [address] Melanie Espinoza : 1955 Interval History: Melanie [...] lifting he (more content not included)... Normal [facility] XR shoulder RT min 2V*on XR shoulder RT min 2V* [facility] Main [place] [address] [place] [address] XRay Report Signed Patient: Melanie Espinoza MR#: [id number] : 1955 Acct:[id number] Age/Sex: 67 / F ADM Date: 06/18/22 Loc: [facility] Room: Type: [facility] Attending Dr: Stevenson Corbin MD Copies [...] Taylor Jr., D.O.06/18/2022 4:21 PM Dictation Location: [place] [address] Transcribed By: [facility] 06/18/22 162 Dictated By: Tai Taylor Jr, DO 06/18/22 1620 Signed By: 06/18/22 1621 Normal [facility] XR SHOULDER RT 2V or >on XR [...] SIMON ANDRADE Date: 2022-06-04 10:57 Normal [facility] CBC AUTO DIFFon 04-19-2022 BASO # 0.0 103/ul Normal 0.0-0.[address] [facility] Comment on above: Performed By: #### C BC #### [facility] Laboratory [address] [place] [address] [address] Miranda Claudio Basophils/100 WBC (Bld) 0.2 % Normal 0.2-2.[address] [facility] Comment on above: Performed By: #### C BC #### [facility] [address] [place] [address] [address] Miranda Claudio EO # 0.0 103/ul Normal 0.0-0.[address] [facility] Comment on above: Performed By: #### C BC #### [facility] [address] [place] [address] [address] Miranda Claudio Eosinophils/100 WBC (Bld) 0.4 % Critically low 0.9-7.0 [facility] Comment on above: Performed By: #### C BC #### [facility] [address] [place] [address] Dr. Miranda Claudio Erythrocyte distribution width (RBC) [Ratio] 13.7 % Normal 11.0-15.0 [facility] Comment on above: Performed By: #### C BC #### [facility] [address] [place] [address] Dr. Miranda Claudio Hematocrit (Bld) [Volume fraction] 33.6 % Critically low 36.0-48.0 [facility] Comment on above: Performed By: #### C BC #### [facility] [address] [place] [address] Dr. Miranda Claudio Hemoglobin (Bld) [Mass/Vol] 11.4 g/dL Critically low 12.0-16.0 [facility] Comment on above: Performed By: #### C BC #### [facility] [address] [place] [address] Dr. Miranda Claudio IG # 0.02 10e3/ul Normal 0.00-0.03 [facility] Comment on above: Performed By: #### C BC #### [facility] [address] [place] [address] Dr. Miranda Claudio IG % 0.4 % Normal 0.0-0.5 [facility] Comment on above: Performed By: #### C BC #### [facility] [address] [place] [address] Dr. Miranda Claudio LYMPH # 0.9 103/ul Critically low 1.2-3.8 [facility] Comment on above: Performed By: #### C BC #### [facility] [address] [place] [address] Dr. Miranda Claudio Lymphocytes/100 WBC (Bld) 18.4 % Critically low 20.5-60.0 [facility] Comment on above: Performed By: #### C BC #### [facility] [address] [place] [address] Dr. Miranda Claudio MANUAL DIFF REQ NO Normal [facility] Comment on above: Performed By: #### C BC #### [facility] [address] [place] [address] Dr. Miranda Claudio MCH (RBC) [Entitic mass] 26.5 pg Critically low 26.7-34.[address] [facility] Comment on above: Performed By: #### C BC #### [facility] [address] [place] [address] Dr. Miranda Claudio MCHC (RBC) [Mass/Vol] 33.9 g/dL Normal 29.9-35.[address] [facility] Comment on above: Performed By: #### C BC #### [facility] [address] [place] [address] Dr. Miranda Claudio MCV (RBC) [Entitic vol] 78.0 fL Critically low 81.0-99.[address] [facility] Comment on above: Performed By: #### C BC #### [facility] [address] [place] [address] Dr. Miranda Claudio MONO # 0.6 103/ul Normal 0.3-0.8 [facility] Comment on above: Performed By: #### C BC #### [facility] [address] [place] [address] Dr. Miranda Claudio Monocytes/100 WBC (Bld) 11.7 % Normal 1.7-12.[address] [facility] Comment on above: Performed By: #### C BC #### [facility] [address] [place] [address] Dr. Miranda Claudio NEUT # 3.3 103/ul Normal 1.4-6.[address] [facility] Comment on above: Performed By: #### C BC #### [facility] [address] [place] [address] Dr. Miranda Claudio Neutrophils/100 WBC (Bld) 68.9 % Normal 43.0-75.[address] [facility] Comment on above: Performed By: #### C BC #### [facility] [address] [place] [address] Dr. Miranda Claudio Platelet mean volume (Bld) [Entitic vol] 8.1 fL Critically low 9.5-13.[address] [facility] Comment on above: Performed By: #### C BC #### [facility] [address] [place] [address] [address] Miranda Claudio PLT 394 103/ul Normal 150-450 [facility] Comment on above: Performed By: #### C BC #### [facility] [address] [place] [address] Dr. Miranda Claudio RBC 4.31 106/ul Normal 4.20-5.40 [facility] Comment on above: Performed By: #### C BC #### [facility] [address] [place] [address] Dr. Miranda Claudio WBC 4.8 103/ul Normal 4.0-11.0 [facility] Comment on above: Performed By: #### C BC #### [facility] [address] [place] [address] Dr. Miranda Claudio PROF 14(COMP METB)on 023 Albumin [Mass/Vol] 2.7 g/dL Critically low 3.4-5.0 [facility] Comment on above: Performed By: #### C MP #### [facility] [address] [place] [address] Dr. Miranda Claudio Albumin/Globulin [Mass ratio] 0.8 {ratio} Normal [facility] Comment on above: Performed By: #### C MP #### [facility] [address] [place] [address] Dr. Miranda Claudio ALP [Catalytic activity/Vol] 64 U/L Normal 46-116 [facility] Comment on above: Performed By: #### C MP #### [facility] [address] [place] [address] Dr. Miranda Claudio ALT [Catalytic activity/Vol] 33 U/L Normal 14-59 [facility] Comment on above: Performed By: #### C MP #### [facility] [address] [place] [address] Dr. Miranda Claudio Anion gap [Moles/Vol] 12.1 mmol/L Normal [facility] Comment on above: Performed By: #### C MP #### [facility] [address] [place] [address] Dr. Miranda Claudio AST [Catalytic activity/Vol] 64 U/L Critically high 15-37 [facility] Comment on above: Performed By: #### C MP #### [facility] [address] [place] [address] Dr. Miranda Claudio Bilirubin [Mass/Vol] 0.2 mg/dL Normal 0.2-1.0 [facility] Comment on above: Performed By: #### C MP #### [facility] [address] [place] [address] [address] Miranda Claudio Calcium [Mass/Vol] 7.9 mg/dL Critically low 8.5-10.1 Th [facility] Comment on above: Performed By: #### C MP #### [facility] [address] [place] [address] Dr. Miranda Claudio Chloride [Moles/Vol] 98 mmol/L Normal 98-107 [facility] Comment on above: Performed By: #### C MP #### [facility] [address] [place] [address] Dr. Miranda Claudio CO2 [Moles/Vol] 26.7 mmol/L Normal 21.0-32.0 [facility] Comment on above: Performed By: #### C MP #### [facility] [address] [place] [address] Dr. Miranda Claudio Creatinine [Mass/Vol] 0.44 mg/dL Critically low 0.55-1.02 [facility] Comment on above: Performed By: #### C MP #### [facility] [address] [place] [address] Dr. Miranda Claudio EGFR-AF SERBIAN >60 Normal >=60 [facility] Comment on above: Performed By: #### C MP #### [facility] [address] [place] [address] Dr. Miranda Claudio EGFR-NON AF SERBIAN >60 Normal >=60 [facility] Comment on above: Performed By: #### C MP #### [facility] [address] [place] [address] Dr. Miranda Claudio Globulin (S) [Mass/Vol] 3.3 g/dL Normal [facility] Comment on above: Performed By: #### C MP #### [facility] [address] [place] [address] [address] Miranda Claudio Glucose [Mass/Vol] 78 mg/dL Normal 74-106 [facility] Comment on above: Performed By: #### C MP #### [facility] [address] [place] [address] [address] Miranda Claudio Potassium [Moles/Vol] 2.8 mmol/L Critically low 3.5-5.1 [facility] Comment on above: Performed By: #### C MP #### [facility] [address] [place] [address] [address] Miranda Claudio Protein [Mass/Vol] 6.0 g/dL Critically low 6.4-8.2 [facility] Comment on above: Performed By: #### C MP #### [facility] [address] [place] [address] Dr. Miranda Claudio Sodium [Moles/Vol] 134 mmol/L Critically low 136-145 [facility] Comment on above: Performed By: #### C MP #### [facility] [address] [place] [address] [address] Miranda Claudio Urea nitrogen [Mass/Vol] 4.0 mg/dL Critically low 7.0-18.0 [facility] Comment on above: Performed By: #### C MP #### [facility] [address] [place] [address] [address] Miranda Claudio Urea nitrogen/Creatinine [Mass ratio] 9.1 mg/mg Normal [facility] Comment on above: Performed By: #### C MP #### [facility] [address] [place] [address] [address] Miranda Claudio XR CHEST 1 Von [...] CM RAMIREZ Date: 2022-04-19 07:08 Normal [address] [facility] CARDIAC EMMA ADMITon 022 CK [Catalytic activity/Vol] 412 U/L Critically high 26-[address] [facility] Comment on above: Performed By: #### Oskar MERCADO CMP ####[facility] [address] [place] [address]Dr. Miranda Claudio CK.MB [Mass/Vol] 19.37 ng/mL Critically high <=3.[address] [facility] Comment on above: Performed By: #### Oskar MERCADO CMP ####[facility] [address] [place] [address]Dr. Miranda Claudio HSTROP 5.9 pg/mL Normal 4.0-51.[address] [facility] Comment on above: Result Comment: CUT- OFF POINTS HAVE BEEN ESTABLISHED BASED ON THE FOURTH UNIVERSAL DEFINITIONS OF MYOCARDIAL INFARCTION. THE UPPER REFERENCE LIMIT (URL) OF TROPONIN, DEFINED THE 99TH PERCENTILE OF cTnI DISTRIBUTION IN A REFERENCE POPULATION, HAS BEEN CONFIRMED THE DECISION THRESHOLD FOR TX DIAGNOSIS. Performed By: #### Oskar MERCADO CMP ####[facility] [address] [place] [address]Dr. Miranda Claudio MARKEL 82 ng/mL Normal 9-[address] [facility] Comment on above: Performed By: #### Oskar MERCADO CMP ####[facility] [address] [place] [address]DrSofía Claudio CBC AUTO DIFFon 03-23-2022 BASO # 0.1 103/ul Normal 0.0-0.1 [facility] Comment on above: Performed By: #### Oskar BC ####[facility] [address] [place] [address]DrSofía Claudio Basophils/100 WBC (Bld) 0.5 % Normal 0.2-2.0 [facility] Comment on above: Performed By: #### Oskar BC ####[facility] [address] [place] [address]Dr. Miranda Claudio EO # 0.5 103/ul Normal 0.0-0.[address] [facility] Comment on above: Performed By: #### C BC ####[facility] [address] [place] [address]Dr. Miranda Claudio Eosinophils/100 WBC (Bld) 4.1 % Normal 0.9-7.[address] [facility] Comment on above: Performed By: #### C BC ####[facility] [address] [place] [address]Dr. Miranda Claudio Erythrocyte distribution width (RBC) [Ratio] 13.9 % Normal 11.0-15.[address] [facility] Comment on above: Performed By: #### C BC ####[facility] [address] [place], [place] [address]Dr. Miranda Claudio Hematocrit (Bld) [Volume fraction] 35.1 % Critically low 36.0-48.[address] [facility] Comment on above: Performed By: #### C BC ####[facility] [address] [place], [place] [address]Dr. Miranda Claudio Hemoglobin (Bld) [Mass/Vol] 11.7 g/dL Critically low 12.0-16.[address] [facility] Comment on above: Performed By: #### C BC ####[facility] [address] [place], [place] [address]Dr. Miranda Claudio IG # 0.05 10e3/ul Critically high 0.00-0.03 The [facility] Comment on above: Performed By: #### C BC ####[facility] [address] [place], [place] [address]Dr. Miranda Claudio IG % 0.4 % Normal 0.0-0.[address] [facility] Comment on above: Performed By: #### C BC ####[facility] [address] [place], [place] [address]Dr. Miranda Claudio LYMPH # 1.5 103/ul Normal 1.2-3.[address] [facility] Comment on above: Performed By: #### C BC ####[facility] [address] [place], [place] [address]Dr. Miranda Claudio Lymphocytes/100 WBC (Bld) 12.7 % Critically low 20.5-60.[address] [facility] Comment on above: Performed By: #### C BC ####[facility] [address] [place], [place] [address]Dr. Miranda Claudio MANUAL DIFF REQ NO Normal [facility] Comment on above: Performed By: #### C BC ####[facility] [address] [place], [place] [address]Dr. Miranda Claudio MCH (RBC) [Entitic mass] 26.1 pg Critically low 26.7-34.[address] [facility] Comment on above: Performed By: #### C BC ####[facility] [address] [place], [place] [address]Dr. Miranda Claudio MCHC (RBC) [Mass/Vol] 33.3 g/dL Normal 29.9-35.[address] [facility] Comment on above: Performed By: #### C BC ####[facility] [address] [place], [place] [address]Dr. Miranda Claudio MCV (RBC) [Entitic vol] 78.3 fL Critically low 81.0-99.[address] [facility] Comment on above: Performed By: #### C BC ####[facility] [address] [place], [place] [address]Dr. Miranda Claudio MONO # 1.2 103/ul Critically high 0.3-0.8 [facility] Comment on above: Performed By: #### C BC ####[facility] [address] [place], [place] [address]Dr. Miranda Claudio Monocytes/100 WBC (Bld) 10.5 % Normal 1.7-12.[address] [facility] Comment on above: Performed By: #### C BC ####[facility] [address] [place], [place] [address]Dr. Miranda Claudio NEUT # 8.3 103/ul Critically high 1.4-6.5 [facility] Comment on above: Performed By: #### C BC ####[facility] [address] [place] [id number]. Miranda Claudio Neutrophils/100 WBC (Bld) 71.8 % Normal 43.0-75.[address] [facility] Comment on above: Performed By: #### C BC ####[facility] [address] [place], [place] [address]Km. Miranda Claudio Platelet mean volume (Bld) [Entitic vol] 8.5 fL Critically low 9.5-13.[address] [facility] Comment on above: Performed By: #### C BC ####[facility] [address] [place], [place] [address]Fr. Miranda Claudio PLT 349 103/ul Normal 150-[address] [facility] Comment on above: Performed By: #### C BC ####[facility] [address] [place] [id number]. Miranda Claudio RBC 4.48 106/ul Normal 4.20-5.[address] [facility] Comment on above: Performed By: #### C BC ####[facility] [address] [place] [id number]. Miranda Claudio WBC 11.6 103/ul Critically high 4.0-11.0 [facility] Comment on above: Performed By: #### C BC ####[facility] [address] [place] [id number]. Miranda Claudio [facility]on SARS-CoV-2 (COVID-19) RNA LARY+probe Ql (Unsp spec) Not detected Normal NOT DETECTED [facility] Comment on above: Result Comment: When diagnostic [...] for this test is supported by the [place] of Health and Human Service's declaration that [...] used). Performed By: #### C VDTB #### [facility] [address] [place] [address] Dr. Miranda Claudio ER URINE PROFILEon 2 Bilirubin Ql (U) Negative Normal NEGATIVE [facility] Comment on above: Performed By: #### E RUR #### [facility] [address] [place] [address] Dr. Miranda Claudio Clarity (U) CLEAR Normal CLEAR [facility] Comment on above: Performed By: #### E RUR #### [facility] [address] [place] [address] Dr. Miranda Claudio Color (U) LT. YELLOW Normal YELLOW [facility] Comment on above: Performed By: #### E RUR #### [facility] [address] [place] [address] Dr. Miranda GARDUNOIndira A micrscopic examination will be performed if indicated. Normal [facility] Comment on above: Performed By: #### E RUR #### [facility] [address] [place] [address] Dr. Miranda Claudio Glucose Ql (U) Negative Normal NEGATIVE [facility] Comment on above: Performed By: #### E RUR #### [facility] [address] [place] [address] Dr. Miranda Claudio Hemoglobin Ql (U) Negative Normal NEGATIVE [facility] Comment on above: Performed By: #### E RUR #### [facility] [address] [place] [address] Dr. Miranda Claudio Ketones Ql (U) Negative Normal NEGATIVE [facility] Comment on above: Performed By: #### E RUR #### [facility] [address] [place] [address] Dr. Miranda Claudio LEUKOCYTES Negative Normal NEGATIVE [facility] Comment on above: Performed By: #### E RUR #### [facility] [address] [place] [address] Dr. Miranda Claudio Nitrite Ql (U) Negative Normal NEGATIVE [facility] Comment on above: Performed By: #### E RUR #### [facility] [address] [place] [address] Dr. Miranda Claudio pH (U) 6.5 [pH] Normal 5-9 [facility] Comment on above: Performed By: #### E RUR #### [facility] [address] [place] [address] Dr. Miranda Claudio SPEC GRAVITY <=1.005 Abnormal 1.005-<=1.025 [facility] Comment on above: Performed By: #### E RUR #### [facility] [address] [place] [address] Dr. Miranda Claudio UA PROTEIN Negative Normal NEGATIVE/ TRACE [facility] Comment on above: Performed By: #### E RUR #### [facility] [address] [place] [address] Dr. Miranda Claudio UR MICRO IND NOT INDICATED Normal [facility] Comment on above: Performed By: #### E RUR #### [facility] [address] [place] [address] Dr. Miranda Claudio Urobilinogen Qn (U) 0.2 {Muriel'U}/dL Normal 0.2 - 1. 0 [facility] Comment on above: Performed By: #### E RUR #### [facility] [address] [place] [address] Dr. Miranda Claudio LACTATE/LACTIC ACIDon 2021 Lactate [Moles/Vol] 0.9 mmol/L Normal 0.4-1.9 [facility] Comment on above: Performed By: #### L ACT #### [facility] [address] [place] [address] Dr. Miranda Claudio PROF 14(COMP METB)on 022 Albumin [Mass/Vol] 3.5 g/dL Normal 3.4-5.0 [facility] Comment on above: Performed By: #### C MADM, CMP #### [facility] [address] [place] [address] [address] Miranda Claudio Albumin/Globulin [Mass ratio] 1.0 {ratio} Normal [facility] Comment on above: Performed By: #### C MADM, CMP #### [facility] [address] [place] [address] [address] Miranda Claudio ALP [Catalytic activity/Vol] 73 U/L Normal 46-116 [facility] Comment on above: Performed By: #### C MADM, CMP #### [facility] [address] [place] [address] [address] Miranda Claudio ALT [Catalytic activity/Vol] 16 U/L Normal 14-59 [facility] Comment on above: Performed By: #### C MADM, CMP #### [facility] [address] [place] [address] [address] Miranda Claudio Anion gap [Moles/Vol] 14.4 mmol/L Normal [facility] Comment on above: Performed By: #### C MADM, CMP #### [facility] [address] [place] [address] [address] Miranda Claudio AST [Catalytic activity/Vol] 26 U/L Normal 15-37 [facility] Comment on above: Performed By: #### C MADM, CMP #### [facility] [address] [place] [address] [address] Miranda Claudio Bilirubin [Mass/Vol] 0.2 mg/dL Normal 0.2-1.0 [facility] Comment on above: Performed By: #### C MADM, CMP #### [facility] [address] [place] [address] [address] Miranda Claudio Calcium [Mass/Vol] 8.3 mg/dL Critically low 8.5-10.1 Th [facility] Comment on above: Performed By: #### C MADM, CMP #### [facility] [address] [place] [address] [address] Miranda Claudio Chloride [Moles/Vol] 93 mmol/L Critically low 98-107 [facility] Comment on above: Performed By: #### C MADM, CMP #### [facility] [address] [place] [address] [address] Miranda Claudio CO2 [Moles/Vol] 23.5 mmol/L Normal 21.0-32.0 [facility] Comment on above: Performed By: #### C MADM, CMP #### [facility] [address] [address] [address] Miranda Claudio Creatinine [Mass/Vol] 0.54 mg/dL Critically low 0.55-1.02 [facility] Comment on above: Performed By: #### C MADM, CMP #### [facility] [address] [address] [address] Miranda Claudio EGFR-AF SERBIAN >60 Normal >=60 [facility] Comment on above: Performed By: #### C MADM, CMP #### [facility] [address] [address] [address] Miranda Claudio EGFR-NON AF SERBIAN >60 Normal >=60 [facility] Comment on above: Performed By: #### C MADM, CMP #### [facility] [address] [address] [address] Miranda Claudio Globulin (S) [Mass/Vol] 3.6 g/dL Normal [facility] Comment on above: Performed By: #### C MADM, CMP #### [facility] [address] [address] [address] Miranda Claudio Glucose [Mass/Vol] 91 mg/dL Normal 74-106 [facility] Comment on above: Performed By: #### C MADM, CMP #### [facility] [address] [address] [address] Miranda Claudio Potassium [Moles/Vol] 3.9 mmol/L Normal 3.5-5.[address] [facility] Comment on above: Performed By: #### C MADM, CMP #### [facility] [address] [address] [address] Miranda Claudio Protein [Mass/Vol] 7.1 g/dL Normal 6.4-8.2 [facility] Comment on above: Performed By: #### C JASWINDERM, CMP #### [facility] [address] [place], [place] [address] Dr. Miranda Claudio Sodium [Moles/Vol] 127 mmol/L Critically low 136-145 [facility] Comment on above: Performed By: #### C JASWINDERM, CMP #### [facility] [address] [place], [place] [address] Dr. Miranda Claudio Urea nitrogen [Mass/Vol] 8.0 mg/dL Normal 7.0-18.0 [facility] Comment on above: Performed By: #### C JASWINDERM, CMP #### [facility] [address] [place], [place] [address] Dr. Miranda Claudio Urea nitrogen/Creatinine [Mass ratio] 14.8 mg/mg Normal [facility] Comment on above: Performed By: #### C JESS, CMP #### [facility] [address] [place], [place] [address] Dr. Miranda Claudio TYPE AND SCREENon 03-23-2022 TYPE AND SCREEN Negative Normal [facility] Comment on above: Performed By: #### T NS ####[facility] [address] [place], [place] [address]KoDr. Miranda Claudio NM HEPATOBILIARY SCAN W EFon [...] by: MESHA CARRASCO Date: 2022-02-23 11:03 Normal [facility] XR shoulder RT min 2V*on XR shoulder RT min 2V* [facility] Main [place] [address] [place] [address] XRay Report Signed Patient: Melanie Espinoza MR#: [id number] 6 : 1955 Acct:[id number] Age/Sex: 66 / F ADM Date: 01/29/22 Loc: [facility] Room: Type: [facility] Attending Dr: Stevenson Corbin MD Copies [...] Ligia Carrasquillo M.D.01/29/2022 2:27 PM Dictation Location: [place] [address] Transcribed By: [facility] 01/29/221426 Dictated By: Ligia Carrasquillo MD 01/29/221424 Signed By: 01/29/221426 Normal [facility] CBC AUTO DIFFon 01-27-2022 BASO # 0.1 103/ul Normal 0.0-0.1 [facility] Comment on above: Performed By: #### C BC #### [facility] [address] [address] [address] Miranda Claudio Basophils/100 WBC (Bld) 0.7 % Normal 0.2-2.[address] [facility] Comment on above: Performed By: #### C BC #### [facility] [address] [address] [address] Miranda Claudio EO # 0.4 103/ul Normal 0.0-0.7 [facility] Comment on above: Performed By: #### C BC #### [facility] [address] [place] [address] Dr. Miranda Claudio Eosinophils/100 WBC (Bld) 4.0 % Normal 0.9-7.0 [facility] Comment on above: Performed By: #### C BC #### [facility] [address] [place] [address] Dr. Miranda Claudio Erythrocyte distribution width (RBC) [Ratio] 14.2 % Normal 11.0-15.0 [facility] Comment on above: Performed By: #### C BC #### [facility] [address] [place] [address] Dr. Miranda Claudio Hematocrit (Bld) [Volume fraction] 39.9 % Normal 36.0-48.0 [facility] Comment on above: Performed By: #### C BC #### [facility] [address] [place] [address] Dr. Miranda Claudio Hemoglobin (Bld) [Mass/Vol] 13.0 g/dL Normal 12.0-16.0 [facility] Comment on above: Performed By: #### C BC #### [facility] [address] [place] [address] Dr. Miranda Claudio IG # 0.03 10e3/ul Normal 0.00-0.03 [facility] Comment on above: Performed By: #### C BC #### [facility] [address] [place] [address] Dr. Miranda Claudio IG % 0.3 % Normal 0.0-0.[address] [facility] Comment on above: Performed By: #### C BC #### [facility] [address] [place] [address] Dr. Miranda Claudio LYMPH # 2.2 103/ul Normal 1.2-3.[address] [facility] Comment on above: Performed By: #### C BC #### [facility] [address] [place] [address] Dr. Miranda Claudio Lymphocytes/100 WBC (Bld) 23.6 % Normal 20.5-60.0 [facility] Comment on above: Performed By: #### C BC #### [facility] [address] [place] [address] Dr. Miranda Claudio MANUAL DIFF REQ NO Normal [facility] Comment on above: Performed By: #### C BC #### [facility] [address] [place] [address] Dr. Miranda Claudio MCH (RBC) [Entitic mass] 27.1 pg Normal 26.7-34.0 [facility] Comment on above: Performed By: #### C BC #### [facility] [address] [place] [address] Dr. Miranda Claudio MCHC (RBC) [Mass/Vol] 32.6 g/dL Normal 29.9-35.2 [facility] Comment on above: Performed By: #### C BC #### [facility] [address] [place] [address] Dr. Miranda Claudio MCV (RBC) [Entitic vol] 83.1 fL Normal 81.0-99.0 [facility] Comment on above: Performed By: #### C BC #### [facility] [address] [place] [address] Dr. Miranda Claudio MONO # 0.8 103/ul Normal 0.3-0.8 [facility] Comment on above: Performed By: #### C BC #### [facility] [address] [place] [address] Dr. Miranda Claudio Monocytes/100 WBC (Bld) 8.5 % Normal 1.7-12.0 [facility] Comment on above: Performed By: #### C BC #### [facility] [address] [place] [address] Dr. Miranda Claudio NEUT # 5.9 103/ul Normal 1.4-6.[address] [facility] Comment on above: Performed By: #### C BC #### [facility] [address] [place] [address] Dr. Miranda Claudio Neutrophils/100 WBC (Bld) 62.9 % Normal 43.0-75.0 [facility] Comment on above: Performed By: #### C BC #### [facility] [address] [address] [address] Miranda Claudio Platelet mean volume (Bld) [Entitic vol] 7.6 fL Critically low 9.5-13.5 [facility] Comment on above: Performed By: #### C BC #### [facility] [address] [address] [address] Miranda Claudio PLT 405 103/ul Normal 150-[address] [facility] Comment on above: Performed By: #### C BC #### [facility] [address] [address] [address] Miranda Claudio RBC 4.80 106/ul Normal 4.20-5.40 [facility] Comment on above: Performed By: #### C BC #### [facility] [address] [address] [address] Miranda Claudio WBC 9.4 103/ul Normal 4.0-11.0 [facility] Comment on above: Performed By: #### C BC #### [facility] [address] [address] [address] Miranda Claudio ER URINE PROFILEon 2 Bilirubin Ql (U) Negative Normal NEGATIVE [facility] Comment on above: Performed By: #### U MICRO, ERUR ####[facility] [address] [place], [place] [address]DrSofía Claudio Clarity (U) CLEAR Normal CLEAR [facility] Comment on above: Performed By: #### U MICRO, ERUR ####[facility] [address] [address]DrSofía Claudio Color (U) LT. YELLOW Normal YELLOW [facility] Comment on above: Performed By: #### U MICRO, ERUR ####[facility] [address] [address]DrSofía Cluadio ERUAHD A micrscopic examination will be performed if indicated. Normal [facility] Comment on above: Performed By: #### U MICRO, ERUR ####[facility] [address] [address]DrSofía Claudio Glucose Ql (U) Negative Normal NEGATIVE [facility] Comment on above: Performed By: #### U MICRO, ERUR ####[facility] [address] [place], [place] [address]Dr. Miranda Claudio Hemoglobin Ql (U) TRACE-LYSED Abnormal NEGATIVE [facility] Comment on above: Performed By: #### U MICRO, ERUR ####[facility] [address] [address]Dr. Miranda Claudio Ketones Ql (U) Negative Normal NEGATIVE [facility] Comment on above: Performed By: #### U MICRO, ERUR ####[facility] [address] [place], [place] [address]Dr. Miranda Claudio LEUKOCYTES Negative Normal NEGATIVE [facility] Comment on above: Performed By: #### U MICRO, ERUR ####[facility] [address] [place], [place] [address]Dr. Miranda Claudio Nitrite Ql (U) Negative Normal NEGATIVE [facility] Comment on above: Performed By: #### U MICRO, ERUR ####[facility] [address] [place], [place] [address]Dr. Miranda Claudio pH (U) 7.0 [pH] Normal 5-9 [facility] Comment on above: Performed By: #### U MICRO, ERUR ####[facility] [address] [place], [place] [address]Dr. Miranda Claudio SPEC GRAVITY <=1.005 Abnormal 1.005-<=1.025 [facility] Comment on above: Performed By: #### U MICRO, ERUR ####[facility] [address] [place], [place] [address]Dr. Renettadeon Claudio UA PROTEIN Negative Normal NEGATIVE/ TRACE [facility] Comment on above: Performed By: #### U MICRO, ERUR ####[facility] [address] [place], [place] [address]Dr. Miranda Claudio UR MICRO IND INDICATED Normal [facility] Comment on above: Performed By: #### U MICRO, ERUR ####[facility] [address] [place], [place] [address]Dr. Miranda Claudio Urobilinogen Qn (U) 0.2 {Muriel'U}/dL Normal 0.2 - 1. 0 [facility] Comment on above: Performed By: #### U MICRO, ERUR ####[facility] [address] [address]Dr. Miranda Claudio PROF 14(COMP METB)on 022 Albumin [Mass/Vol] 3.5 g/dL Normal 3.4-5.0 [facility] Comment on above: Performed By: #### C MP #### [facility] [address] [address] [address] Miranda Claudio Albumin/Globulin [Mass ratio] 1.0 {ratio} Normal [facility] Comment on above: Performed By: #### C MP #### [facility] [address] [address] [address] Miranda Claudio ALP [Catalytic activity/Vol] 66 U/L Normal 46-116 [facility] Comment on above: Performed By: #### C MP #### [facility] [address] [address] [address] Miranda Claudio ALT [Catalytic activity/Vol] 15 U/L Normal 14-59 [facility] Comment on above: Performed By: #### C MP #### [facility] [address] [address] [address] Miranda Claudio Anion gap [Moles/Vol] 7.1 mmol/L Normal [facility] Comment on above: Performed By: #### C MP #### [facility] [address] [address] [address] Miranda Claudio AST [Catalytic activity/Vol] 16 U/L Normal 15-37 [facility] Comment on above: Performed By: #### C MP #### [facility] [address] [address] [address] Miranda Claudio Bilirubin [Mass/Vol] 0.1 mg/dL Critically low 0.2-1.0 [facility] Comment on above: Performed By: #### C MP #### [facility] [address] [address] [address] Miranda Claudio Calcium [Mass/Vol] 9.1 mg/dL Normal 8.5-10.1 [facility] Comment on above: Performed By: #### C MP #### [facility] [address] [address] [address] Miranda Claudio Chloride [Moles/Vol] 100 mmol/L Normal 98-107 [facility] Comment on above: Performed By: #### C MP #### [facility] [address] [place] [address] Dr. Miranda Claudio CO2 [Moles/Vol] 30.7 mmol/L Normal 21.0-32.0 [facility] Comment on above: Performed By: #### C MP #### [facility] [address] [place] [address] Dr. Miranda Claudio Creatinine [Mass/Vol] 0.64 mg/dL Normal 0.55-1.02 [facility] Comment on above: Performed By: #### C MP #### [facility] [address] [place] [address] Dr. Miranda Claudio EGFR-AF SERBIAN >60 Normal >=60 [facility] Comment on above: Performed By: #### C MP #### [facility] [address] [place] [address] Dr. Miranda Claudio EGFR-NON AF SERBIAN >60 Normal >=60 [facility] Comment on above: Performed By: #### C MP #### [facility] [address] [address] [address] Miranda Claudio Globulin (S) [Mass/Vol] 3.6 g/dL Normal [facility] Comment on above: Performed By: #### C MP #### [facility] [address] [place] [address] Dr. Miranda Claudio Glucose [Mass/Vol] 68 mg/dL Critically low 74-106 Th [facility] Comment on above: Performed By: #### C MP #### [facility] [address] [address] [address] Miranda Claudio Potassium [Moles/Vol] 3.8 mmol/L Normal 3.5-5.1 [facility] Comment on above: Performed By: #### C MP #### [facility] [address] [address] [address] Miranda Claudio Protein [Mass/Vol] 7.1 g/dL Normal 6.4-8.2 [facility] Comment on above: Performed By: #### C MP #### [facility] [address] [address] [address] Miranda Claudio Sodium [Moles/Vol] 134 mmol/L Critically low 136-145 Th [facility] Comment on above: Performed By: #### C MP #### [facility] [address] [place] [address] Dr. Miranda Claudio Urea nitrogen [Mass/Vol] 14.0 mg/dL Normal 7.0-18.0 [facility] Comment on above: Performed By: #### C MP #### [facility] [address] [place] [address] Dr. Miranda Claudio Urea nitrogen/Creatinine [Mass ratio] 21.9 mg/mg Normal [facility] Comment on above: Performed By: #### C MP #### [facility] [address] [address] [address] Miranda Claudio URINE MICROSCOPIC ONLYon BACTERIA NONE SEEN Normal NONE SEEN [facility] Comment on above: Performed By: #### U MICRO, ERUR ####[facility] [address] [place] [address]DrSofía Claudio Bacteria identified Cx Nom (U) NOT INDICATED Normal [facility] Comment on above: Performed By: #### U MICRO, ERUR ####[facility] [address] [place] [address]DrSofía Claudio CAST NONE SEEN Normal NONE SEEN [facility] Comment on above: Performed By: #### U MICRO, ERUR ####[facility] [address] [place] [address]DrSofía Claudio Crystals LM Nom (Urine sed) NONE SEEN Normal NONE SEEN [facility] Comment on above: Performed By: #### U MICRO, ERUR ####[facility] [address] [place] [address]Dr. Miranda Claudio Epithelial cells LM Ql (Urine sed) NONE SEEN Normal NONE SEEN /RARE [facility] Comment on above: Performed By: #### U MICRO, ERUR ####[facility] [address] [place] [address]Dr. Miranda Claudio MUCOUS SMALL Abnormal NONE SEEN [facility] Comment on above: Performed By: #### U MICRO, ERUR ####[facility] [address] [place] [address]Dr. Miranda Claudio RBC 0-2 Normal 0-[address] [facility] Comment on above: Performed By: #### U MICRO, ERUR ####[facility] [address] [place] [address]Dr. Miranda Claudio WBC NONE SEEN Normal NONE SEEN [facility] Comment on above: Performed By: #### U MICRO, ERUR ####[facility] [address] [place] [address]Dr. Miranda Claudio XR CHEST 1 Von 01-27-2022 [...] CM ROBLES Date: 2022-01-27 20:30 Normal [facility] XR SHOULDER RT 2V or >on XR SHOULDER RT 2V or > IMAGES REVIEWED: XR SHOULDER RT 2V or > COMPARISON: 12/27/2021. CLINICAL INDICATION: Pain FINDINGS/IMPRESSION: 1. No evidence of acute osseous abnormality of the right shoulder. 2. 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 3. Old right rib fractures. 4. Osteopenia. Electronically authenticated by: SARAH MOMIN Date: 2022-01-27 20:42 Normal [facility] XR SCAPULA RTon 12-27-2021 XR SCAPULA [...] by: SANTIAGO HELMS Date: 2021-12-27 12:55 Normal [facility] XR shoulder RT min 2V*on XR shoulder RT min 2V* [facility] Main [place] [id number] XRay Report Signed Patient: Melanie Espinoza MR#: [id number] 6 : 1955 Acct:[id number] Age/Sex: 66 / F ADM Date: 12/04/21 Loc: [facility] Room: Type: [facility] Attending Dr: Stevenson Corbin MD Copies [...] Erick Carranza M.D.12/04/2021 2:33 PM Dictation Location: [place] [address] Transcribed By: [facility] 12/04/21 1433 Dictated By: Erick Carranza DO 12/04/21 1426 Signed By: 12/04/21 1433 Normal [facility] XR shoulder RT min 2V*on XR shoulder RT min 2V* [facility] Main [address] [address] XRay Report Signed Patient: Melanie Espinoza MR#: [id number] 6 : 1955 Acct:[id number] Age/Sex: 66 / F ADM Date: 10/26/21 Loc: [facility] Room: Type: [facility] Attending Dr: Stevenson Corbin MD Copies [...] Taylor Jr., D.O.10/26/2021 10:32 AM Dictation Location: [place] [address] Transcribed By: [facility] 10/26/21 1032 Dictated By: Tai Taylor Jr, DO 10/26/21 1031 Signed By: 10/26/21 1032 Normal [facility] XR shoulder RT min 2V*on XR shoulder RT min 2V* [facility] Main [place] [address] [place] [address] XRay Report Signed Patient: Melanie Espinoza MR#: [id number] 6 : 1955 Acct:[id number] Age/Sex: 66 / F ADM Date: 10/18/21 Loc: [place] Room: Type: [facility] Attending Dr: Stevenson Corbin MD Copies [...] Ligia Carrasquillo M.D.10/18/2021 11:42 AM Dictation Location: [place] [address] Transcribed By: [facility] 10/18/21 1142 Dictated By: Ligia Carrasquillo MD 10/18/21 1139 Signed By: 10/18/21 1142 Normal [facility] COVID-19 FRMCon 10-13-2021 SARS-CoV-2 (COVID-19) RNA LARY+probe Ql (Unsp spec) Negative Normal Negative [facility] Comment on above: Order Comment: Healt hcare Worker?: N Result Comment: Testing for SARS-CoV-2 by RT-PCR This test was developed and its performance characteristics determined by [employer] [facility]) and validated at the [facility]. This test has not been FDA cleared [...] is terminated or revoked sooner. PERFORMED BY: [place] [address] PATHOLOGIST INSTRUMENT MAN TAYA CRESPO M.D. Performed By: #### C OVID 19 [facility] #### [address] COVID-19 Positive/NegativeOr dered By: Stevenson Corbin on 10-13-2021 SARS-CoV-2 (COVID-19) N gene LARY+probe Ql (Resp) Negative Negative [facility] Comment on above: Testing for SARS-CoV -2 by RT-PCR This test was developed and its performance characteristics determined by [employer] ([employer]) and validated at the [facility]. This test has not been FDA cleared [...] Patient Instructions By signing my name below, INela LPN. ,Scribe, attest that this documentation has [...] a) No falls within the last year [facility] DO Work Phone: Tobacco use status [facility] b) No [facility] DO Work Phone: PHQ-2 VITALS [facility] DO Work Phone: COVID-19 FRon 09-18-2021 SARS-CoV-2 (COVID-19) RNA LARY+probe Ql (Unsp spec) Negative Normal Negative [facility] Comment on above: Order Comment: Healt hcare Worker?: N Result Comment: Testing for SARS-CoV-2 by RT-PCR This test was developed and its performance characteristics determined by [employer] ([place]) and validated at the [facility]. This test has not been FDA cleared [...] is terminated or revoked sooner. PERFORMED BY: [place] [address] PATHOLOGIST INSTRUMENT MAN TAYA CRESPO M.D. Performed By: #### C OVID 19 [facility] #### [address] COVID-19 Positive/NegativeOr dered By: Stevenson Corbin on 09-18-2021 SARS-CoV-2 (COVID-19) N gene LARY+probe Ql (Resp) Negative Negative [facility] Comment on above: Testing for SARS-CoV -2 by RT-PCR This test was developed and its performance characteristics determined by [employer] ([employer]) and validated at the [facility]. This test has not been FDA cleared [...] by: JEFE SAEED Date: 2021-08-22 02:25 Normal [facility] HIP LEFT 1 OR 2 VWS WITH PEL VISon 01-26-2021 HIP LEFT 1 OR 2 VWS WITH PELVIS [facility] Department of Radiology [address] [place] [id number] Patient Name: MELANIE ESPINOZA : 1955 Sex: F Age: Race: White Pt. Location: Patient Status: D Ordered Date: 01/26/2021 1:55:00 PM Completed Date: 01/26/2021 02:00 PM Requesting Provider: HERVE STARKEY Attending Provider: HERVE STARKEY Report Copy To: Signs & Symptoms: S72.002A Fracture of unsp part of neck of left femur, init I10 History: [place] Comments: Evaluate Exam: HIP LEFT 1 OR [...] report. Electronically signed: Marisela Reveles. Transcribed by: [email or web address], User Resident: ORIANA REILLY Electronically Signed by: MARISELA REVELES @ 01/27/2021 12:26 PM I personally read this/these film(s) with this resident Normal [facility] Comment on above: Order Comment: Evalu ate HIP LEFT 1 OR 2 VWS WITH PEL VISon 09-15-2020 HIP LEFT 1 OR 2 VWS WITH PELVIS [facility] Department of Radiology [address] [place] [id number] Patient Name: MELANIE ESPINOZA : 1955 [...] Electronically signed: Jose Armando Kwon. Transcribed by: [email or web address], User Resident: Electronically Signed by: JOSE ARMANDO KWON @ 09/15/2020 08:28 PM [facility] Comment on above: Order Comment: evalu ate RAD - Ultrasound Reporton RAD - Ultrasound Report [id number] .00CD:127 Normal [facility] Ambulatory Clinical Summaryo n 08-30-2020 Ambulatory Clinical Summary {[id number] Normal [facility] Patient Educationon 08-31-19 Patient Education Urology [...] Follow these instructions at home: ? Take ycom-bmz-wjmsznb and prescription medicines only as told by [...] 01/27/2008 Document Revised: 04/12/2018 Document Reviewed: 04/12/2018 Else[employer] system Patient Education ? 2019 [employer] Aaron [facility] Urology Office/Clinic Noteon 08-30-2020 Urology Office/Clinic [...] Urnls Dip Stick Auto w/o Microscopy POC 35001 I have reviewed the previous health record information and history for this patient from Dr. Go Follow-up With When Contact Information Donavan Bailey MD, Justin Massey, URO Only if needed [facility] [address], [place] [address]- Additional Instructions: Patient Education Hydronephrosis I, Marion iGbson, personally scribed for Dr. Go on 08/30/2020 [...] 80 mg= 1 (more content not included)... [facility] Comment on above: Result Comment: Elec tronically Signed By: Donavan Bailey MD, Justin Massey\.br\Date and Time Signed: 08/30/20 13:04 EDT\.br\Electronically Co-Signed By: Marion Gibson MA\.br\Date and Time Co-Signed: 08/30/20 12:36 EDT Reminderson 08-22-2020 Reminders - From: Edilma Godoy To: EU - Clinical; Sent: 08/09/2020 11:42:24 EDT Show up: 08/21/2020 11:42:00 EDT Subject: renal US Reminder/Recall scheduled 08/19/20 at [facility]. patient has f/u scheduled 08/30 for results results scanned in today [facility] Ambulatory Clinical Summaryo n 08-09-2020 Ambulatory Clinical Summary {[id number]}CD:[id number] [facility] Formson 08-09-2020 Forms [id number] .00CD:127 Normal [facility] Patient Educationon 27-20 21 Patient Education Urology Hydronephrosis Hydronephrosis is [...] Follow these instructions at home: ? Take xhyz-foj-bnjndvi and prescription medicines only as told by [...] 01/27/2008 Document Revised: 04/12/2018 Document Reviewed: 04/12/2018 [employer] Patient Education ? 2019 [employer] Normal [facility] Urology Office/Clinic Noteon 08-09-2020 Urology Office/Clinic Note Chief Complaint New patient here for left sided hydronephrosis HPI Staff New patient Melanie is a 65 y.o. female referred by [facility] for mild to [...] Urnls Dip Stick Auto w/o Microscopy POC 61578 US Renal Follow-up With When Contact Information Donavan Bailey MD, Justin Massey, URO [facility] [address], [place] [address]- Additional Instructions: after renal u/s Patient Education [...] (at bedtime) (more content not included)... Normal [facility] Comment on above: Result Comment: Elec tronically Signed By: Donavan Bailey MD, Justin Massey\.br\Date and Time Signed: 08/09/20 11:18 EDT\.br\Electronically Co-Signed By: Nadiya Freed MA\.br\Date and Time Co-Signed: 08/09/20 11:07 EDT RAD - CT Reporton 07-12-2020 RAD - CT Report [id number]. 00CD:127 [facility] Consultation Noteon 07-02-19 Consultation Note [id number] .00CD:127 [facility] HIP LEFT 1 OR 2 VWS WITH PEL VISon 06-16-2020 HIP LEFT 1 OR 2 VWS WITH PELVIS [facility] Department of Radiology [address] [place] [phone] Patient Name: MELANIE ESPINOZA : 1955 Sex: F Age: Race: White Pt. 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 Transcribed by: [email or web address], User Resident: Electronically Signed by: WILLOW STAPLETON @ 06/17/2020 08:01 AM Normal [facility] Comment on above: Order Comment: Views (X-RAY, HIP): AP Hip, Frogleg Lateral Hip HIP LEFT 1 OR 2 VWS WITH PEL VISon 2020 HIP LEFT 1 OR 2 VWS WITH PELVIS [facility] Department of Radiology [address] [place] [phone] Patient Name: MELANIE ESPINOZA : 1955 Sex: F Age: Race: White Pt. Location: 84 Patient Status: O Ordered Date: 2020 1:25:00 PM Completed Date: 2020 01:30 PM Requesting Provider: HERVE STARKEY Attending Provider: HERVE STARKEY Report Copy To: Signs & Symptoms: M25.552 Pain in left hip I10 History: Gobler Comments: Exam: HIP LEFT 1 OR 2 [...] impaction. Electronically signed: Deion Hernandez. Transcribed by: [email or web address], User Resident: Electronically Signed by: DEION HERNANDEZ @ 2020 04:11 PM Normal [facility] HIP LEFT 1 OR 2 VWS WITH PEL VISon 04-14-2020 HIP LEFT 1 OR 2 VWS WITH PELVIS [facility] Department of Radiology [address] [place] [id number] Patient Name: MELANIE ESPINOZA : 1955 Sex: F Age: Race: White Pt. Location: Patient Status: O Ordered Date: 04/14/2020 9:20:00 [...] fracture. Electronically signed: Antonio Bernal. Transcribed by: [email or web address], User Resident: Electronically Signed by: ANTONIO BERNAL @ 04/14/2020 10:04 AM Normal [facility] Comment on above: Order Comment: Evalu ate Coding Summaryon 01-13-2020 Coding Summary CODING DATE: 01/13/2020 [facility] STATUS: Home PAYOR: Medicaid HMO ADMIT [...] Nikhil Zamudio Date Saved: 01/13/2020 06:25 pm [facility] Coding Summary CODING DATE: 01/13/2020 [facility] STATUS: Home PAYOR: Medicaid HMO ADMIT [...] Nikhil Zamudio Date Saved: 01/13/2020 06:24 pm [facility] Coding Summary CODING DATE: 01/13/2020 [facility] STATUS: Home PAYOR: Medicaid HMO ADMIT [...] Nikhil Zamudio Date Saved: 01/13/2020 06:24 pm [facility] ED Clinical Summaryon 2019 ED Clinical Summary [facility] - Emergency Department [address] [place], [place] [id number] ED Clinical Summary PERSON INFORMATION Name: MELANIE ESPINOZA Age: 64 Years Sex: FEMALE : 1955 MRN: Acct#: Visit Reason: Hernia; ABD PAIN Arrival: 01/09/2020 15:42:54 Discharge: 01/09/2020 16:20:00 LOS: 000 00:38 Check In: 01/09/2020 15:42:54 Checkout:01/09/2020 16:20:00 Address: [place] [address] PCP: ESTEBAN GARZA PROVIDER INFORMATION Provider Role [...] Hernia Follow-Up: With: Address: When: Calvin Aguilar [address] [place] [address], [address] [place] [id number] Business (1) Within 2 to 4 days [...] kimberly verbalizes understanding of instructions given Comment: [facility] ED Note - Physicianon 2019 ED [...] documented in chart. Surgical history: Esophagogastroduodeno scopy ([id number]) on 01/17/2018 at 62 Years., Reviewed as documented in chart. Family history: No family history items have been selected or recorded., Reviewed as documented in chart. Social history: Social & Psychosocial Habits Tobacco 04/15/2017 Smoking tobacco use: 5-9 cigarettes (between 1 Comment: Smokes / PDD - 04/15/2017 13:04 - Marlyn Espinoza [...] Impression and Plan Diagnosis Incarcerated ventral hernia (ZBL08-BK K43.6, Discharge, Medical) Ventral hernia (LOC33-JX K43.9, Discharge, Medical) Plan Condition: Improved, Stable. [...] on: 01/12/2020 15:09 EDT] Wade Hassan MD [facility] ED Note-Nursingon 01-09-2020 ED Note-Nursing Pt presents to the E D with a hernia. Pt states increased pain in that area. [facility] ED Patient Education Noteon 01-09-2020 ED [...] increase pressure on your hernia. ? Take xgdd-nhi-mibbmtb and prescription medicines only as told by [...] 03/18/2013 Document Revised: 05/14/2018 Document Reviewed: 10/21/2017 [employer] Patient Education ? 2019 [employer]. Normal [facility] ED Patient Summaryon 020 ED Patient Summary [facility] - Emergency Department [address] [place] [address] PATIENT DISCHARGE INSTRUCTIONS Patient Information Name: MELANIE ESPINOZA Age: 64 Years Date of : 1955 Reason For Visit: Hernia; ABD PAIN Arrival Time: 01/09/2020 15:42:54 Primary Care Physician: ESTEBAN GARZA Attending Physician: Wade Hassan MD Comment: Visit Diagnosis: Diagnoses This Visit Hernia ([id number]) Incarcerated ventral hernia (K43.6) Ventral hernia (K43.9) Prescription Information: If you have been given a prescription for narcotics, seek immediate medical attention if you have any difficulty breathing or any sudden status changes such as confusion and sleepiness. If you or anyone you know is experiencing suicidal thoughts, mental health, alcohol and/or drug addiction problems; contact the [facility] 05/11 Crisis Hotline -Kuim 4HMQR to 278244. If you received any narcotics, sedation, or [...] legal documents With: Address: When: Calvin Aguilar [address] [place] [address], [place] [address] Business (1) Within 2 to 4 days [...] and treatment you received today in the [facility] Emergency Department were for an urgent problem and are not intended as complete care. It is important for you to follow up with a doctor, nurse practitioner, or physician?s urology physician assistant for ongoing care. If your [...] so we can reach you if necessary. [facility] Emergency Department has provided you with a complete list of medications post discharge. Please inform your primary operator/provider of your visit and for further instruction [...] increase pressure on your hernia. ? Take rxwp-ybs-fgupicz and prescription medicines only as told by [...] 03/18/2013 Document Revised: 05/14/2018 Document Reviewed: 10/21/2017 Elsevier Patient Education ? 2020 [employer]. Viruses or Bacteria What?s got you sick? [...] for Disease Control and Prevention December 2013 [facility] Coding Summaryon 09-24-2019 Coding Summary CODING DATE: 09/24/2019 [facility] STATUS: Home PAYOR: Medicaid HMO ADMIT [...] Carine Ferraro Date Saved: 09/24/2019 03:29 pm [facility] .Thyroglobulin by SKYLAR LCon 0 09-23-2019 Thyroglobulin by SKYLAR LC 13.6 ng/mL 1.5-38.5 [facility] Comment on above: Result Comment: According to [...] is 0.1 ng/mL Thyroglobulin measured by [employer] Immunometric Assay Performed At: [facility] [id number] Bebo Jeter PhD Ph:[phone] Performed By: #### 2 [id number], [id number], [id number], [id number], [id number], [id number] ####[facility] (DEFAULT)[address] [place] [address] Provider Orderson 09-23-2019 Provider Orders [id number] .[id number] Normal [facility] T3 Free LCon 09-23-2019 Triiodothyronine,Fr ee,Serum LC 2.0 pg/mL 2.0-4.4 [facility] Comment on above: Result Comment: Perf ormed At: [facility] [address] [place], [place] [id number] Bebo Jeter PhD Ph:[phone] Performed By: #### 2 490271, [id number], [id number], [id number], [id number], [id number] #### [facility] (DEFAULT) [address] [place] [address] Thyroglobulin Reflex Profile LCon 09-23-2019 Thyroglobulin Antibody LC <1.0 0.0-0.9 [facility] Comment on above: Result Comment: Thyr oglobulin Antibody measured by [employer] Performed At: [facility] [address] [place], [place] [id number] Bebo Jeter PhD Ph:[phone] Performed By: #### 2 [id number], [id number], [id number], [id number], [id number], [id number] ####[facility] (DEFAULT)[address] [place] [address] Thyroid Peroxidase (TPO) Ab LCon 09-23-2019 Thyroid Peroxidase (TPO) Ab LC <9 0-34 [facility] Comment on above: Result Comment: Perf ormed At: [facility] [address] [place], [place] [id number] Bebo Jeter PhD Ph:[phone] Performed By: #### 2 945005, [id number], [id number], [id number], [id number], [id number] #### [facility] (DEFAULT) [address] [place] [address] Free T4on 09-22-2019 Free T4 [Mass/Vol] 0.90 ng/dL Normal 0.61-1.12 [facility] Comment on above: Result Comment: Spec imens that contain high levels of Biotin may cause false high results Performed By: #### 2 344267, [id number], [id number], [id number], [id number], [id number] #### [facility] (DEFAULT) [address] [place] [address] TSHon 09-22-2019 TSH Qn 2.07 mcIU/mL Normal 0.45-5.33 [facility] Comment on above: Result Comment: Gene ral Population (males and non- females, aged 21-88) 0.45 - 5.33 Females, 1st Trimester 0.05 - 3.70 Females, 2nd Trimester 0.31 - 4.35 Females, 3rd Trimester 0.41 - 5.18 Performed By: #### 2 [id number], [id number], [id number], [id number], [id number], [id number] #### [facility] (DEFAULT) [address] [place] [address] Coding Summaryon 06-18-2019 Coding Summary CODING DATE: 06/18/2019 FINAL [facility] STATUS: Home PAYOR: Medicaid HMO ADMIT DX: [...] Ferraro Date Saved: 06/18/2019 01:32 pm Normal [facility] US Thyroidon 06-17-2019 US Thyroid EXAM: US [...] Huntley MD 06/17/19 4:26 pm Technologist: KRISTINA [facility] Provider Orderson 06-16-2019 Provider Orders [id number] [facility] 05-29-2019 Coding Summary CODING DATE: 05/29/2019 [facility] STATUS: Home PAYOR: Medicaid HMO ADMIT [...] Deb Law Date Saved: 05/29/2019 12:32 pm [facility] Provider Orderson 05-28-2019 Provider Orders [id number] [facility] Chest 2 Viewson 0 XR [...] MD 05/27/19 4:03 pm Technologist: Anatoliy SETH [facility] Vital Signs Date Time Vital Sign Value Performing Clinician Facility 07-13-2023 20:20-0400 Body mass index (BMI) [Ratio] 16.65 kg/m2 Alexey Furlong DO Work Phone: [facility] 07-13-2023 20:20-0400 Body weight 42.64 kg Alexey Furlong DO Work Phone: [facility] 07-13-2023 20:20-0400 Diastolic blood pressure 62 mm[Hg] Alexey Furlong DO Work Phone: [facility] 07-13-2023 20:20-0400 Systolic blood pressure 122 mm[Hg] Alexey Furlong DO Work Phone: [facility] 06-12-2023 18:10-0500 Body mass index (BMI) [Ratio] 16.93 kg/m2 Alexey Furlong DO Work Phone: [facility] 06-12-2023 18:10-0500 Body temperature 97.9 [degF] Alexey Furlong DO Work Phone: [facility] 06-12-2023 18:10-0500 Body weight 43.36 kg Alexey Furlong DO Work Phone: [facility] 06-12-2023 18:10-0500 Diastolic blood pressure 84 mm[Hg] Alexey Furlong DO Work Phone: [facility] 06-12-2023 18:10-0500 Heart rate 96 /min Alexey Furlong DO Work Phone: [facility] 06-12-2023 18:10-0500 Respiratory rate 18 /min Alexey Furlong DO Work Phone: [facility] 06-12-2023 18:10-0500 SaO2% (BldA) [Mass fraction] 95 % Alexey Furlong DO Work Phone: [facility] 06-12-2023 18:10-0500 Systolic blood pressure 166 mm[Hg] Alexey Furlong DO Work Phone: [facility] 05-14-2023 12:12-0500 Body mass index (BMI) [Ratio] 16.97 kg/m2 Alexey Furlong DO Work Phone: [facility] 05-14-2023 12:12-0500 Body temperature 99.61 [degF] Alexey Furlong DO Work Phone: [facility] 05-14-2023 12:12-0500 Body weight 43.45 kg Alexey Furlong DO Work Phone: [facility] 05-14-2023 12:12-0500 Diastolic blood pressure 77 mm[Hg] Alexey Furlong DO Work Phone: [facility] 05-14-2023 12:12-0500 Heart rate 82 /min Alexey Furlong DO Work Phone: [facility] 05-14-2023 12:12-0500 Respiratory rate 18 /min Alexey Furlong DO Work Phone: [facility] 05-14-2023 12:12-0500 SaO2% (BldA) [Mass fraction] 95 % Alexey Furlong DO Work Phone: [facility] 05-14-2023 12:12-0500 Systolic blood pressure 129 mm[Hg] Alexey Furlong DO Work Phone: [facility] 04-14-2023 22:23-0500 Body mass index (BMI) [Ratio] 17.47 kg/m2 Alexey Furlong DO Work Phone: [facility] 04-14-2023 22:23-0500 Body temperature 97.9 [degF] Alexey Furlong DO Work Phone: [facility] 04-14-2023 22:23-0500 Body weight 44.73 kg Alexey Pedersonlong DO Work Phone: [employer] 04-14-2023 22:23-0500 Diastolic blood pressure 64 mm[Hg] Alexey [facility]ersonlong DO [facility] 04-14-2023 22:23-0500 Systolic blood pressure 132 mm[Hg] Alexey Pedersonlong DO [facility] 01-29-2022 12:15-0400 Body height 161.29 cm Stevenson Corbin Other [employer] Other 01-02-2022 08:47-0400 Body weight 49.9 kg Tai Hinojosa MD Work Phone: [facility] 01-02-2022 08:47-0400 Diastolic blood pressure 77 mm[Hg] Tai Hinojosa MD Work Phone: [facility] 01-02-2022 08:47-0400 Heart rate 68 /min Tai Hinojosa MD Work Phone: [facility] 01-02-2022 08:47-0400 SaO2% (BldA) [Mass fraction] 96 % Tai Hinojosa MD Work Phone: [facility] 01-02-2022 08:47-0400 Systolic blood pressure 128 mm[Hg] Tai Hinojosa MD Work Phone: [facility] 12-06-2021 15:00-0400 Body height 161.29 cm Sena Jabier Other [employer] Other 12-06-2021 15:00-0400 Body temperature 98 [degF] Sena Jabier Other [employer] Other 12-06-2021 15:00-0400 Diastolic blood pressure 85 mm[Hg] Sena Jabier Other [employer] Other 12-06-2021 15:00-0400 Respiratory rate 18 /min Sena Jabier Other [employer] Other 12-06-2021 15:00-0400 SaO2% (BldA) [Mass fraction] 96 % Sena Jabier Other [employer] Other 12-06-2021 15:00-0400 Systolic blood pressure 157 mm[Hg] Sena Jabier Other [employer] Other 10-18-2021 12:35-0400 Diastolic blood pressure 58 mm[Hg] MD Stevenson Corbin Work Phone: [facility] 10-18-2021 12:35-0400 Heart rate 64 /min MD Stevenson Corbin Work Phone: [facility] 10-18-2021 12:35-0400 Respiratory rate 16 /min MD Stevenson Corbin Work Phone: [facility] 10-18-2021 12:35-0400 SaO2% (BldA) [Mass fraction] 95 % MD Stevenson Corbin Work Phone: [facility] 10-18-2021 12:35-0400 Systolic blood pressure 146 mm[Hg] MD Stevenson Corbin Work Phone: [facility] 10-18-2021 12:19-0400 Body height 160.02 cm MD Stevenson Corbin Work Phone: [facility] 10-18-2021 12:19-0400 Body mass index (BMI) [Ratio] 18.1 kg/m2 MD Stevenson Corbin Work Phone: [facility] 10-18-2021 12:19-0400 Body weight 46.6 kg MD Stevenson Corbin Work Phone: [facility] 10-18-2021 11:35-0400 Inhaled oxygen flow rate 2 L/min MD Stevenson Corbin Work Phone: [facility] 10-18-2021 10:53-0400 Body temperature 97.1 [degF] MD Stevenson Corbin Work Phone: [facility] 09-25-2021 14:35-0400 Diastolic blood pressure 78 mm[Hg] Alexey Garcia Furlong Work Phone: [facility] [employer] DO Work Phone: 09-25-2021 14:35-0400 Systolic blood pressure 162 mm[Hg] Alexey G Furlong Work Phone: [facility] [employer] DO Work Phone: 09-25-2021 14:32-0400 Body height 160.02 cm Alexey Jose Furlong Work Phone: [facility] [employer] [facility] DO Work Phone: 09-25-2021 14:32-0400 Body mass index (BMI) [Ratio] 18.42 kg/m2 Alexey G Furlong Work Phone: [facility] [employer] [facility] DO Work Phone: 09-25-2021 14:32-0400 Body surface area Derived from formula 1.46 m2 Alexey G Furlong Work Phone: [facility] [employer] [facility] DO Work Phone: 09-25-2021 14:32-0400 Body weight 47.17 kg Alexey G Furlong Work Phone: [facility] [employer] [employer] DO Work Phone: 09-25-2021 14:32-0400 Diastolic blood pressure 90 mm[Hg] Alexey G Furlong Work Phone: [facility] [employer] [facility] DO Work Phone: 09-25-2021 14:32-0400 Heart rate 83 /min Alexey Pedersonlong Work Phone: [facility] [place] [facility] DO Work Phone: 09-25-2021 14:32-0400 Systolic blood pressure 168 mm[Hg] Alexey Pedersonlong Work Phone: [facility] [place] [facility] DO Work Phone: 09-13-2021 12:08-0400 Body height 160.02 cm MD Stevenson Corbin Work Phone: [facility] 09-13-2021 12:08-0400 Body mass index (BMI) [Ratio] 18.6 kg/m2 MD Stevenson Corbin Work Phone: [facility] 09-13-2021 12:08-0400 Body weight 47.8 kg MD Stevenson Corbin Work Phone: [facility] 05-30-2021 09:45-0500 Body height 161.29 cm Stevenson Fordxa Other [facility] [employer] Other 05-30-2021 09:45-0500 Body mass index (BMI) [Ratio] 16.39 kg/m2 Stevenson Olexa Other [facility] [employer] Other 05-30-2021 09:45-0500 Body weight 42.64 kg Stevenson Olexa Other [facility] [employer] Other 03-22-2021 14:00-0500 Body height 161.29 cm Radha Bosch Other [employer] Other 03-22-2021 14:00-0500 Body mass index (BMI) [Ratio] 16.56 kg/m2 Radha Bosch Other [facility] [employer] Other 03-22-2021 14:00-0500 Body temperature 98.2 [degF] Radha Bosch Other [employer] Other 03-22-2021 14:00-0500 Body weight 43.09 kg Radha Bosch Other [employer] Other 03-22-2021 14:00-0500 Diastolic blood pressure 60 mm[Hg] Radha Bosch Other [employer] Other 03-22-2021 14:00-0500 Respiratory rate 18 /min Radha Bosch Other [employer] Other 03-22-2021 14:00-0500 SaO2% (BldA) [Mass fraction] 96 % Radha Bosch Other [employer] Other 03-22-2021 14:00-0500 Systolic blood pressure 140 mm[Hg] Radha Bosch Other [employer] Other Encounters Encounter Date Encounter Type Care Provider Facility Start: 08-26-2023 End: 08-26-2023 ambulatory [facility] Start: 08-26-2023 ambulatory ALEXEY G [facility] Start: 08-26-2023 Encounter for preprocedural cardiovascular examination [facility] Start: 07-12-2023 ambulatory Alexey gtz DO Work Phone: [facility] Comment on above: Primary osteoarthrit is of left hip (Primary Dx); Primary hypertension Start: 07-04-2023 ambulatory ERNESTO [facility] Start: 06-28-2023 ambulatory Satya Liao RN [facility] Comment on above: MARVIN VINES RN ( Medication Adherence review per request of payer) Start: 06-12-2023 ambulatory Alexey gtz DO Work Phone: [facility] Comment on above: Primary osteoarthrit is of left hip (Primary Dx); Tardive dyskinesia; Primary hypertension Start: 05-21-2023 End: 05-22-2023 ambulatory [facility] Start: 05-21-2023 End: 05-21-2023 ambulatory [facility] Start: 05-14-2023 End: 05-14-2023 Continuing Care Alexey Polo DO Work Phone: [facility] [...] Hyposmolality syndrome; Movement disorder Start: 04-04-2023 ambulatory [facility] Start: 03-04-2023 End: 03-05-2023 ambulatory HERVE Harvey [facility] Start: 01-08-2023 End: 01-08-2023 ambulatory TAI HINOJOSA Facility:[facility] Start: 07-03-2022 End: 07-03-2022 ambulatory ESTEBAN GARZA Facility:[facility] Start: 06-18-2022 Office outpatient vi sit 15 minutes Stevenson Corbin [facility] Start: 06-18-2022 End: 06-18-2022 ambulatory Stevenson Corbin Facility:[facility] Start: 06-18-2022 End: 06-18-2022 ambulatory DO Alexey Polo Work Phone: [facility] Work Phone: Start: 06-18-2022 End: 06-18-2022 Patient encounter procedure DO Alexey Polo Work Phone: [facility] Start: 06-04-2022 End: 06-04-2022 ambulatory LENA HAMEED . Facility:[facility] Start: 04-19-2022 End: 04-19-[address] EVA POOLE . Facility:[facility] Start: 03-23-2022 End: 03-23-[address] ERICK BERG . Facility:[facility] Start: 02-23-2022 End: 02-24-[address] ALEXEY POLO Facility:[facility] Start: 01-29-2022 Office outpatient vi sit 15 minutes Stevenson Oledimitris [facility] Start: 01-29-2022 End: 01-29-2022 ambulatory Stevenson Olexa [employer] Other Start: 01-27-2022 End: 01-28-[address] EMMA GO Facility:[facility] Start: 01-02-2022 End: 01-02-2022 Patient encounter procedure Tai Hinojosa MD Work Phone: Neurology Comment on above: Lingual facial bucca l dyskinesia (Primary Dx); Dyskinesia, tardive; Dyskinesia, orofacial; Excessive physiologic tremor Start: 12-27-2021 End: 12-27-[address] ALEXEY POLO Facility:[facility] Start: 12-06-2021 End: 12-06-2021 ambulatory Sena Jabier Other [employer] Other Start: 12-06-2021 Office outpatient vi sit 15 minutes Sena Jbaier [facility] Start: 12-04-2021 Postop follow up vis it related to original px Stevenson Olexa [facility] Start: 12-04-2021 End: 12-04-2021 ambulatory Stevenson Olexa [employer] Other Start: 12-04-2021 End: 12-04-2021 Patient encounter procedure MD Stevenson Corbin Work Phone: [facility] Start: 11-01-2021 End: 11-01-2021 ambulatory Stevenson Olexa Other [employer] Other Start: 11-01-2021 Telephone encounter Stevenson Corbin [facility] [place] [facility] Start: 10-26-2021 Postop follow up vis it related to original px Stevenson Corbin [facility] Start: 10-26-2021 End: 10-26-2021 ambulatory Stevenson Corbin [employer] Other Start: 10-26-2021 End: 10-26-2021 Patient encounter procedure MD Stevenson Corbin Work Phone: [facility] Start: 10-18-2021 End: 10-18-2021 ambulatory Stevenson Corbin Facility:[facility] Start: 10-18-2021 End: 10-18-2021 Admission to same day surgery center MD Stevenson Corbin Work Phone: [facility] [place] Start: 10-17-2021 End: 10-17-2021 ambulatory Stevenson Corbin Other [employer] Other Start: 10-17-2021 Telephone encounter Stevenson Corbin [facility] Start: 10-13-2021 End: 10-13-2021 ambulatory Stevenson Corbin Facility:[facility] Start: 10-13-2021 End: 10-13-2021 Patient encounter procedure MD Stevenson Corbin Work Phone: [facility] Start: 10-09-2021 End: 10-09-2021 Patient encounter procedure MD Stevenson Corbin Work Phone: [facility] Start: 09-25-2021 Office consultation new/estab patient 60 min Alexey Polo Work Phone: -[facility] [facility] DO Work Phone: Start: 09-20-2021 End: 09-20-2021 ambulatory Stevenson Corbin Facility:[facility] Start: 09-20-2021 End: 09-20-2021 Departed Referred MD Stevenson Corbin Work Phone: [facility] [place] Start: 09-18-2021 Telephone encounter Stevenson Corbin [facility] Start: 09-18-2021 End: 09-18-2021 ambulatory Stevenson Corbin [employer] Other Start: 09-18-2021 End: 09-18-2021 Patient encounter procedure MD Stevenson Corbin Work Phone: [facility] Start: 09-13-2021 End: 09-13-2021 ambulatory Stevenson Corbin Facility:[facility] Start: 08-22-2021 End: 08-22-[address] ALEXEY POLO Facility: Start: 07-12-2021 Telephone encounter Tai johnson MD Work Phone: Neurology Comment on above: Insurance Authorizat ion Start: 06-29-2021 End: 06-30-[address] ALEXEY POLO Facility:[facility] Start: 05-30-2021 End: 05-30-2021 ambulatory Stevenson Corbin Other [employer] Other Start: 05-30-2021 Office outpatient ne w 30 minutes Stevenson Corbin [facility] Start: 03-22-2021 End: 03-22-2021 ambulatory Radha Bosch Other [facility] [employer] Other Start: 03-22-2021 Office outpatient vi sit 15 minutes Radha Bosch [facility] Start: 06-16-2020 End: 06-17-2020 ambulatory HERVE STARKEY Facility:[facility] Patient encounter status Alexey Polo Work Phone: [facility] [facility] DO Work Phone: Procedures Date Procedure [...] MD Work Phone: Operation on rectum Alexey Pedersonleeann Work Phone: Total colonoscopy Alexey schafferleeann Work Phone: Plan of Treatment Date Care Activity Detail Author Start: 12-28-2030 DTaP,Tdap and Td Vaccines (3 - Td or Tdap) DTaP,Tdap and Td Vaccines (3 - Td or Tdap) [facility] Start: 12-28-2030 Urine microalbumin profile DTaP,Tdap,Td Vaccine (3 - Td or Tdap) [facility] Start: 05-19-2025 Diabetes Screening Diabetes Screening [facility] Start: 06-12-2024 Adult BMI Screening Adult BMI Screening [facility] Start: 05-14-2024 Adult BMI Screening Adult BMI Screening [facility] Start: 04-14-2024 Adult BMI Screening Adult BMI Screening [facility] Start: 03-12-2024 Adult BMI Screening Adult BMI Screening [facility] Start: 03-12-2024 Tobacco Screening Tobacco Screening [facility] Start: 12-26-2023 Pneumococcal Vaccine: 65+ (3 of 3 - PPSV23 or PCV20) Pneumococcal Vaccine: 65+ (3 of 3 - PPSV23 or PCV20) [facility] Start: 04-15-2023 Advance Directive Discussion Advance Directive Discussion [facility] Start: 04-15-2023 Depression Assessment Depression Assessment [facility] Start: 12-14-2022 Covid-19 Vaccine () Covid-19 Vaccine () [facility] Start: 12-14-2022 COVID-19 Vaccine (5 - 2023-24 season) COVID-19 Vaccine ( season) [facility] Start: 12-14-2022 Influenza vaccination [facility] Start: 12-14-2021 Influenza vaccination INFLUENZA (#1) [facility] Start: 12-04-2021 Plain X-ray of right shoulder XR shoulder RT min 2V* [facility] Start: 12-04-2021 End: 12-04-2021 Patient encounter procedure Departed Clinical [facility] Start: 10-18-2021 End: 10-18-2021 [facility] Work Phone: Start: 09-20-2021 Prosthetic total arthroplasty of right shoulder OR Shoulder Arthroplasty-Total (Right) [facility] Start: 08-08-2021 Adult depression screening assessment DEPRESSION SCREENING [facility] Start: 04-15-2021 ADVANCE DIRECTIVE DISCUSSION ADVANCE DIRECTIVE DISCUSSION [facility] Start: 2020 BONE DENSITY BONE DENSITY [facility] Start: 2020 Fall Risk Screening Fall Risk Screening [facility] Start: 2020 PNEUMOCOCCAL: 65+ (1 - PCV) PNEUMOCOCCAL: 65+ (1 - PCV) [facility] Start: 2020 Screening for osteoporosis Bone Density Screening [facility] Start: 2015 RSV Vaccine (1 - 1-dose 60+ series) RSV Vaccine (1 - 1-dose 60+ series) [facility] Start: 2005 SHINGRIX VACCINE (1 of 2) SHINGRIX VACCINE (1 of 2) [facility] Start: 2000 COLOGUARD (FIT-DNA) COLOGUARD (FIT-DNA) [facility] Start: 2000 Colonoscopy COLONOSCOPY [facility] Start: 2000 COLORECTAL CANCER SCREENING COLORECTAL CANCER SCREENING [facility] Start: [address] COLONOGRAPHY [facility] Start: 2000 DIABETES SCREEN DIABETES SCREEN [facility] Start: 2000 FECAL OCCULT BLOOD FECAL OCCULT BLOOD [facility] Start: 2000 Lipid panel Lipid Screening [facility] Start: 2000 LIPID SCREEN LIPID SCREEN [facility] Start: 2000 Screening for malignant neoplasm of colon [facility] Start: 2000 SIGMOIDOSCOPY SIGMOIDOSCOPY [facility] Start: 1995 Mammography MAMMOGRAM [facility] Start: 1995 Screening for malignant neoplasm of breast Mammogram Screening [facility] Start: 1974 Urine microalbumin profile DTAP,TDAP,TD (1 - Tdap) [facility] Start: 1973 Adult BMI Follow Up Plan Adult BMI Follow Up Plan [facility] Start: 1973 HEPATITIS C SCREENING HEPATITIS C SCREENING [facility] Start: 1973 Hepatitis C screening Hepatitis C Screening [facility] Start: 1967 Depression Screening Depression Screening [facility] Start: 1955 COVID-19 VACCINE (#1) COVID-19 VACCINE (#1) [facility] Start: 1955 Medicare Annual Wellness Visit Medicare Annual Wellness Visit [facility] Immunizations Immunization Date Immunization Notes Care Provider [facility] 03-26-2021 Pfizer-BioNTech COVID-19 Vacc 30 MCG/0.3ML Intramuscular Suspension Alexey Polo Work Phone: [facility] 01-10-2021 Fluzone High-Dose Quadrivalent 0.7 ML Intramuscular Suspension Prefilled Syringe Alexey Polo Work Phone: [facility] 01-10-2021 influenza virus vaccine, unspecified formulation Alexeynaun Pedersontresa CACERES Work Phone: [facility] 12-28-2020 diphtheria, tetanus toxoids and pertussis vaccine Alexey Polo Work Phone: [facility] 07-14-2020 Pfizer-BioNTech COVID-19 Vacc 30 MCG/0.3ML Intramuscular Suspension Alexeynaun [employer] Work Phone: [facility] 06-28-2020 tetanus toxoid, redu anne diphtheria toxoid, and acellular pertussis vaccine, adsorbed Alexey [employer] Work Phone: [facility] 06-23-2020 Pfizer-BioNTech COVID-19 Vacc 30 MCG/0.3ML Intramuscular Suspension Alexey G Furlong Work Phone: [facility] 04-11-2020 zoster vaccine recombinant Satya Liao RN [facility] 12-19-2019 influenza, injectabl e, quadrivalent, preservative free Alexey G Furlong Work Phone: [facility] 12-15-2019 influenza, seasonal, injectable Alexey Furlong DO Work Phone: [facility] 10-28-2019 zoster vaccine recombinant Alexey G Furlong Work Phone: [facility] 02-25-2019 zoster vaccine recombinant Alexey G Furlong Work Phone: [facility] 12-25-2018 influenza, injectabl e, quadrivalent, preservative free Alexey G Furlong Work Phone: [facility] 12-25-2018 pneumococcal conjuga te vaccine, 13 valent Alexey G Furlong Work Phone: [facility] 12-20-2017 influenza, injectabl e, quadrivalent, preservative free Alexey G Furlong Work Phone: [facility] 12-14-2016 influenza virus vaccine, unspecified formulation Alexey Furlong DO Work Phone: [facility] 12-14-2016 influenza, injectabl e, quadrivalent, preservative free Alexey G Furlong Work Phone: [facility] 11-20-2015 influenza, seasonal, injectable, preservative free Alexey G Furlong Work Phone: [facility] 074 DO Work Phone: 11-20-2015 pneumococcal polysaccharide vaccine, 23 valent Alexey G Furlong Work Phone: [facility] 250 DO Work Phone: 11-20-2015 zoster vaccine, live Alexey G Furlong Work Phone: [facility] [facility] DO Work Phone: 12-31-2014 influenza, seasonal, injectable, preservative free Alexey Polo Work Phone: [employer] NEGATED: Highlighted row has not occurred!05-19-2022 pneumococcal polysaccharide vaccine, 23 valent Alexey Polo DO Work Phone: [employer] Payers Date Payer Category Payer Medicare [id number] 2021 Self-pay [id number] 2020 Medicare [id number] 2013 Medicaid [id number] 1959 Medicaid [id number] 1959 Medicare [id number] 1955 Unknown [id number] 2.16.8 40.1.186412.3.579.2.647 1955 Unknown [id number] 2.16.84 0.1.600715.3.579.2.593 1955 Unknown [id number] 2.16.84 0.1.700832.3.579.2.593 1955 Unknown [id number] 2.16.84 0.1.802123.3.579.2.593 1955 Unknown [id number] 2.16.84 0.1.788960.3.579.2.593 1955 Unknown [id number] 2.16.84 0.1.188984.3.579.2.593 1955 Unknown [id number] 2.16.84 0.1.322167.3.579.2.593 1955 Unknown [id number] 2.16.84 0.1.609205.3.579.2.593 1955 Unknown [id number] 2.16.84 0.1.538752.3.579.2.593 1955 Unknown [id number] 2.16.8 40.1.389529.3.579.2.1286 1955 Unknown [id number] 2.16.8 40.1.053833.3.579.2.1286 1955 Unknown [id number] 2.16.8 40.1.145212.3.579.2.1286 1955 Unknown [id number] 2.16.8 40.1.704083.3.579.2.1286 Unknown Unknown [id number] 2.16.8 40.1.050393.3.579.2.531 Unknown [id number] 2.16.8 40.1.450906.3.579.2.531 Unknown [id number] 2.16.8 40.1.325865.3.579.2.531 Unknown [id number] 2.16.8 40.1.722430.3.579.2.531 Unknown [id number] 2.16.8 40.1.235839.3.579.2.531 Unknown [id number] 2.16.8 40.1.375723.3.579.2.531 Unknown [id number] 2.16.8 40.1.453017.3.579.2.531 Unknown [id number] 2.16.8 40.1.819089.3.579.2.531 Unknown [id number] 2.16.8 40.1.001019.3.579.2.531 Social History Date Type Detail Facility Start: 2020 End: 02-18-2023 Daily caffeine consumption Daily caffeine consumption [facility] Comment on above: 1-2 cups of coffee d aily. Occas iced tea. Diet coke ocassional; Quit in ; Start: 2020 End: 03-12-2023 Sex Assigned At [facility] Start: 10-18-2021 End: 02-18-2023 Tobacco smoking status NHIS Ex-smoker (finding) [facility] Start: 1955 Sex Assigned At Female F [facility] End: 07-21-2017 History of tobacco use Current smoker [facility] End: 07-21-2017 History of tobacco use Cigarette Smoker [facility] Start: 07-21-2018 End: 02-18-2023 Tobacco use and exposure Smokeless tobacco non-user [facility] Start: 08-10-2020 End: 05-14-2023 Alcohol intake Lifetime non-drinker (finding) [facility] Start: 07-21-2018 History SDOH Alcohol Frequency 1 [facility] Start: 1955 Sex Assigned At Not on file C [facility] Start: 12-23-2021 End: 01-02-2022 Exposure to SARS-CoV-2 (event) Not sure [facility] Start: 03-12-2023 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 Never [facility] Work Phone: Medical Equipment Procedure Code Equipment Code Equipment Origin al Text Equipment Identifier Dates Arthroplasty, shoulder, total Total reverse shoulder prosthesis ()[id number] [id number] 99 FDA Start: 10-18-2021 Arthroplasty, shoulder, total Total reverse shoulder prosthesis ()[id number] [id number] FDA Start: 10-18-2021 Arthroplasty, shoulder, total Total reverse shoulder prosthesis ()[id number] [id number])[id number] 83 FDA Start: 10-18-2021 Arthroplasty, shoulder, total Total reverse shoulder prosthesis ()[id number] 17)[id number])21.007 57 FDA Start: 10-18-2021 Arthroplasty, shoulder, total Total reverse shoulder prosthesis ()[id number] 17)[id number])21.024 16 FDA Start: 10-18-2021 Arthroplasty, shoulder, total Total reverse shoulder prosthesis ()[id number] [id number] FDA Start: 10-18-2021 Arthroplasty, shoulder, total Total reverse shoulder prosthesis ()[id number] [id number] FDA Start: 10-18-2021 Arthroplasty, shoulder, total Total reverse shoulder prosthesis [id number] [id number] FDA Start: 10-18-2021 Arthroplasty, shoulder, total Total reverse shoulder prosthesis ()[id number] 17)[id number] FDA Start: 10-18-2021 Arthroplasty, shoulder, total Total reverse shoulder prosthesis ()[id number] 17)[id number] FDA Start: 10-18-2021 Mesh Pco Vntrl P tch 4.6cm Rpl [id number] - Sna - [id number] Start: 01-29-2020 Goals Date Patient Goal [...] progress towards goal: return to [facility] Clinical Notes 03-22-2021 to 08-13-2023 Alexey Polo, DO - 07/12/2023 11:59 PM Satya Wang RN - 06/28/2023 9:59 AM Penny Polo, DO - 06/12/2023 6:10 PM Carito Polo, DO - 05/14/2023 12:12 PM EST Note Date & Type Note Facility 08-13-2023 Note CALLED AND SPOKE WIT H RUSSEL NEVAREZ RN IN R/T PATIENTS MEDICAL CLEARANCE FOR UPCOMING SURGERY ON 08/25 AND PER RN PATIENT IS NOT CLEARED, PCP HAS ORDERED CARDIAC WORKUP D/T ABNORMAL EKG. PATIENT NEEDS SURGERY RESCHEDULED TO END OF SEPTEMBER. SURGERY RESCHEDULED TO 10/10 AND PRE-OP KARIE;T ON 09/25 [facility] 07-12-2023 History of Present illness Narrative Patient Name: Melanie Espinoza Date of : 1955 Date of Service: 07/12/2023 Facility: [facility] Type of Visit: Subsequent Visit Subjective Melanie Espinoza is a 68 y.o. female [facility] visit. No new problems reported by staff or patient. Her hip surgery was moved up to August which she is happy about. She is ambulating in a wheelchair. She has pain but it is adequately controlled. Allergies: Erythromycin and Clarithromycin Code Status: [facility] BP 122/62 Wt 42.6 kg (94 lb) BMI 16.65 kg/m Physical Exam Vitals reviewed. Constitutional: General: [...] breath sounds. No wheezing, rhonchi or rales. Musculoskeletal: Cervical back: Neck supple. Skin: General: Skin is warm. Neurological: Mental Status: She is alert and oriented to person, place, and time. Motor: Tremor present. Gait: Gait abnormal (she ambulates in the unit with a wheelchair). Psychiatric: Mood and Affect: Mood normal. Behavior: Behavior normal. Thought Content: Thought content normal. Judgment: Judgment normal. Summary / Assessment / Plan 1. Primary osteoarthritis of left hip 2. Primary hypertension Medically stable. Continue current regimen. All medications reviewed and are medically necessary. Will do pre-op clearance next month after testing. ELECTRONICALLY SIGNED BY: Alexey Polo DO documented in this encounter [employer] 07-04-2023 Note Orthopedic Surgery Subjective Pain of the Left Hip 07/04/23 Melanie Espinoza is a 68 y.o. female presenting for evaluation and treatment of her left hip. Patient had a history of ORIF left hip with 3 cannulated screws several years ago. Over the past year patient has reported increasing left hip pain. Patient sustained a fall March 2023 when she landed onto her left hip. Since then, her pain drastically worsened and she rates it on average at 9-10/10. It is uncontrolled with tylenol. Radiographic evidence of avascular necrosis and worsening narrowing of her left femoral acetabular joint space. Patient presents in a wheelchair but prior to her fall was able to ambulate with a walker. She lives at nursing facility. Patient was seen by neurology and her neurologist cleared her for left hip surgery. Denies fever, chills, N/V, numbness, tingling. Patient History Past Surgical History: Procedure Laterality Date RECTAL PROLAPSE REPAIR SHOULDER SURGERY Past Medical History: Diagnosis Date Anemia Anxiety Arthritis Chronic kidney disease Dysphagia Epilepsy ([facility]) GERD (gastroesophageal reflux disease) Hyperlipidemia Hypertension Major depressive disorder Osteoarthritis Peripheral vascular disease ([facility]) Rectal prolapse Objective General: Body mass index is 15.94 kg/m???. No acute distress, comfortable Left Lower extremity: Inspection- Leg length discrepancy of 2.5-3 cm based on medial malleoli, no ecchymosis, no edema Tender to palpation over greater trochanters, otherwise non-tender Hip ROM: Increased pain with internal and external rotation Strength: Hip Strength tests deferred Knee Flexion 5/5 Knee Extension 5/5 Sensation: intact over superficial peroneal, deep peroneal and tibial nerve distributions Negative valgus and varus strain Imaging X-ray of the left hip and pelvis 03/04/2023 personally reviewed by me showed Left hip degenerative joint disease femoral head collapse and superior migration of the femoral head. CT scan of the Left hip and pelvis 05/21/2023 showed left hip femoral head collapse arthritic changes wandering acetabulum good columns Imaging personally reviewed and interpreted by attending physician. Findings discussed with patient. Assessment/Plan Melanie Espinoza is a 68 y.o. 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 Patient with Left hip femoral neck fracture S/P ORIF , Left hip AVN with retained cannulated screws, severe degenerative joint disease and femoral head collapse. Discussed with the patient the results of clinical exam and imaging, discussed surgical options ,in the form of Left hip conversion into a total hip arthroplasty through a direct anterior approach. Discussed with the patient all the risks and benefits of surgery, discussed increased risk due to the severe arthritis and shortening. -Scheduled surgery in the form of Left hip conversion into left NICOLASA through a direct anterior approach on 09/19/23. -Neurology clearance obtained for proceeding with surgery and anesthesia. -Appreciate clearance from PCP for surgery. -Restrict weightbearing and utilize walker or wheelchair at all times. Nazario Nix, MS3 Orthopaedic Surgery By using the attestations below, the signing clinician agrees that I have read and verify that the documentation has been personally reviewed by me and ensure that the documentation accurately reflects the encounter. Office Visit Attestation GC: I personally saw this patient on the day of the encounter, performed the denton portion(s) of the service and participated in the management and confirm the resident's documentation. Please note there may be an additional personal documentation from me. I, Ernesto Plaza, personally performed the face to face evaluation on this patient. I discussed with the patient and confirmed the accuracy and completeness of the aforementioned history prepared by the winner practice provider, and I personally performed the clinical examination of the patient. I discussed the treatment plan with the patient. As the teaching physician, I have personally performed or re-performed the history of present illness, physical exam and medical decision-making activities of the encounter and verified the medical student's documentation. I made pertinent changes as necessary to ensure accurate documentation. Additional Comments: none Ernesto Plaza MD 07/04/23 2:18 PM [facility] 06-28-2023 Note Patient Outreach (PANFILO TNAV) MELANIE ESPINOZA ([id number]) 1955 F Date Time Provider Department 06/28/23 SATYA LIAO During your visit today, we recorded the following information about you: Satya Liao RN 06/28/2023 10:15 AM Signed ACM MOHINDER RN Reason for review or outreach: Medication Adherence review per request of payer Medication Adherence Review Details: Cholesterol FYI / ACTION REQUEST: Patient identified by name and date of Summary/Findings of review: Patient is seeing Non[facility] PCP at [facility] Family Medicine Patient Attributed To: E Payer: [facility] Action Taken: Data submitted to Payer Other Contact made with patient: No, Chart review only. Signature: Satya Liao RN Allergies As of Date: 06/28/2023 Noted Allergy Reaction ERYTHROMYCIN 05/14/2023 16 - Unknown Date Reviewed: 05/14/2023 Reviewed by: Kaylen French MA - Fully Assessed Reason for Visit: ACM MOHINDER RN [[id number]] Cmt: Medication Adherence review per request of payer Prescriptions as of 06/28/2023 - cyclobenzaprine (FLEXERIL) 10 mg tablet - guaiFENesin-dextromethorphan (ROBITUSSIN DM) 100-10 mg/5 mL syrup Take 10 mL by mouth every 6 hours as needed. - levothyroxine (SYNTHROID) 75 mcg tablet - traZODone (DESYREL) 100 mg tablet - clonazePAM (KLONOPIN) 1 mg tablet Take 1.5 tablets by mouth three times daily for 90 days. [including bedtime] - HYDROcodone-acetaminophen (NORCO) 5-325 mg per tablet Take 1 tablet by mouth every 8 hours as needed for pain. - busPIRone (BUSPAR) 10 mg tablet Take 10 mg by mouth three times daily. - gabapentin (NEURONTIN) 600 mg tablet Take 600 mg by mouth three times a day. - deutetrabenazine (AUSTEDO) 12 mg tab Take 2 tablets (24 mg) by mouth twice daily with meals. - amLODIPine (NORVASC) 5 mg tablet Take by mouth once daily. - atorvastatin (LIPITOR) 40 mg tablet Take 40 mg by mouth once daily. - menthol (BIOFREEZE, MENTHOL,) 4 % topical gel Apply to affected area three times daily as needed. - busPIRone (BUSPAR) 15 mg tablet Take 15 mg by mouth three times daily. - calcium carbonate (CALTRATE) 600 mg calcium (1,500 mg) tab Take 600 mg by mouth. - ferrous sulfate 325 mg (65 mg iron) tablet Take 325 mg by mouth daily with breakfast. - Fluticasone Propionate 50 mcg/actuation diskus inhaler Inhale 1 Puff as instructed twice daily. - alendronate (FOSAMAX) 70 mg tablet Take 70 mg by mouth one time a week. In AM with cup of water on empty stomach. Nothing else by mouth and stay upright for 30 min. - Ibuprofen 200 mg cap Take by mouth every 6 hours as needed. - loperamide (IMODIUM) 2 mg cap(s) Take 2 mg by mouth four times daily as needed. - methocarbamol (ROBAXIN) 750 mg tablet Take 750 mg by mouth four times daily. - polyethylene glycol 3350 17 gram/dose powder Take by mouth once daily. Dissolve dose in 4 - 8 ounces of liquid and take as directed. - pantoprazole DR (PROTONIX) 40 mg tablet Take 40 mg by mouth once daily. - sodium chloride 1 g tab Take 1 g by mouth three times daily. - sucralfate (CARAFATE) 1 gram tablet Take 1 g by mouth four times daily. - acetaminophen (TYLENOL) 500 mg tablet Take 500 mg by mouth every 8 hours as needed. - ondansetron (ZOFRAN) 4 mg tablet Take by mouth every 8 hours as needed for nausea/vomiting. - gabapentin (NEURONTIN) 300 mg capsule Take 1 capsule in the morning, one in early afternoon, and 2 in the evening - primidone (MYSOLINE) 250 mg tablet Take 1 tablet by mouth twice daily. - busPIRone (BUSPAR) 5 mg tablet Take 1 tablet by mouth three times daily. - escitalopram oxalate (LEXAPRO) 20 mg tablet Take 20 mg by mouth once daily. - alendronate (FOSAMAX) 70 mg tablet once each week. - pravastatin (PRAVACHOL) 40 mg tablet Take 40 mg by mouth once daily. - Magnesium 250 mg tab Take 250 mg by mouth. - ascorbic acid, vitamin C, (VITAMIN C WITH NOVA HIPS) 500 mg tablet Take 500 mg by mouth once daily. - Ferrous Sulfate 325 mg (65 mg iron) cpER Take by mouth. - pantoprazole DR (PROTONIX) 40 mg tablet Take 40 mg by mouth twice daily. Problem List As Of Date: 06/28/2023 (None) Encounter Status:Closed by SATYA LIAO on 06/28/23 [facility] 06-28-2023 Note HNO ID: [id number] Author: SATYA LIAO RN Service: ? Author Type: Registered Nurse Type: Progress Notes Filed: 06/28/2023 10:15 Note Text: ACM MOHINDER RN Reason for review or outreach: Medication Adherence review per request of payer Medication Adherence Review Details: Cholesterol FYI / ACTION REQUEST: Patient identified by name and date of Summary/Findings of review: Patient is seeing [facility] PCP at [facility] Patient Attributed To: QAE Payer: [email or web address] Action Taken: Data submitted to Payer Other Contact made with patient: No, Chart review only. Signature: Satya Liao RN [facility] 06-28-2023 History of Present illness Narrative ACAnatoliy MOHINDER RN Reason for review or outreach: Medication Adherence review per request of payer Medication Adherence Review Details: Cholesterol FYI / ACTION REQUEST: Patient identified by name and date of Summary/Findings of review: Patient is seeing Non[facility] PCP at [facility] Patient Attributed To: QAE Payer: [email or web address] Action Taken: Data submitted to Payer Other Contact made with patient: No, Chart review only. Signature: Satya Liao RN documented in this encounter [facility] 06-12-2023 History of Present illness Narrative Patient Name: Melanie Espinoza Date of : 1955 Date of Service: 06/12/2023 Facility: [facility] Type of Visit: Subsequent Visit Subjective Melanie Espinoza is a 68 y.o. female seen today at senior care facility for monthly visit. Resident fell 2 weeks. She was found on floor next to her bed and the side rail was down. She somehow got her siderail down and ended up on the floor. She did not have any injuries. She was supposed to see ortho tomorrow about getting her hip replaced but our local intermodal truck driver is sick and it has to be rescheduled. She is now ambulating with a wheelchair at all times and calling for assistance to transfer. She is using clonazepam with benefit. She doesn't have any side effects.I did receive a letter about it and they were only going to give a temporary supply due to quantity limits. Allergies: Erythromycin and Clarithromycin Code Status: [facility] BP 166/84 Pulse 96 Temp 36.6 C (97.9 F) Resp 18 Wt 43.4 kg (95 lb 9.6 oz) SpO2 95% BMI 16.93 kg/m Physical Exam Vitals reviewed. Constitutional: General: [...] Neck supple. Skin: General: Skin is warm. Neurological: Mental Status: She is alert and oriented to person, place, and time. Motor: Tremor present. Gait: Gait abnormal (she ambulates in the unit with a wheelchair). Psychiatric: Mood and Affect: Mood normal. Behavior: Behavior normal. Thought Content: Thought content normal. Judgment: Judgment normal. Summary / Assessment / Plan 1. Primary osteoarthritis of left hip 2. Tardive dyskinesia 3. Primary hypertension Medically stable. Ambulate with a wheelchair and ask for assistance with transfers. Continue current regimen. May need to change clonazepam to reduce quantity. She is using a controlled substance with benefit and without side effects. All medications reviewed and are medically necessary. ELECTRONICALLY SIGNED BY: Alexey Polo DO documented in this encounter [employer] 05-14-2023 Note HNO ID: [id number] Author: TAI HINOJOSA MD Service: ? Author Type: Physician Type: Progress Notes Filed: 05/14/2023 16:40 Note Text: May 14, 2023 Tai Hinojosa MD [address] / [address] [address] Esteban Garza MD ([facility]) [address] [place] [address] Melanie Espinoza : 1955 Interval History: Melanie Espinoza is a 67 year old woman with a 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 Her symptoms persist. Increasing the clonazepam [...] to Austedo a (more content not included)... [facility] 05-14-2023 History of Present illness Narrative Patient Name: Melanie Espinoza Date of : 1955 Date of Service: 05/14/2023 Facility: [facility] Type of Visit: Subsequent Visit Subjective Melanie Espinoza is a 67 y.o. female seen today at senior care facility for monthly visit. Melanie returned from [...] and has an appointment in May in [place] for possible hip replacement. Her right shoulder aches . She has an appointment with her neurologist this afternoon. She has no new problems. Allergies: Erythromycin and Clarithromycin Code Status: [facility] BP 129/77 Pulse 82 Temp 37.6 [...] Alexey Polo DO documented in this encounter [facility] 04-11-2023 History of Present illness Narrative Patient Name: Melanie Espinoza Date of : 1955 Date of Service: 04/11/2023 Facility: [facility] Type of Visit: Subsequent Visit Subjective Melanie Espinoza is a 67 y.o. female seen today at senior care facility for monthly visit. Melanie is having a lot of hip pain and has an appointment for ortho coming up to discuss hip replacement. had a fall recently and had to be sent to the ER. There were no fractures. She is back and has no new problems. Allergies: Erythromycin and Clarithromycin Code Status: [facility] BP 132/64 Temp 36.6 C (97.9 [...] Alexey Polo DO documented in this encounter [facility] 04-04-2023 Note Orthopedic Surgery Subjective Pain [...] Torres MD Orthopaedic Surgery 04/04/23 12:44 PM [facility] 03-04-2023 Note HPI *Left hip Reported by patient. Location: left Quality: increasing Severity: moderate to severe pain Context: walker Aggravating Factors: cannot identify Associated Symptoms: no redness; no warmth; no ecchymosis; no drainage; no swelling; no fever; no chills; no calf pain Previous Surgery: surgical procedure: Prior Imaging: x ray ORIF left hip fx [id number] ORIF LT HIP ROS Patient reports no [...] hip OA/AVN Plan Refer to Dr Plaza [facility] 01-08-2023 Note HNO ID: [id number] Author: Tai Hinojosa MD Service: ? Author Type: Physician Type: Progress Notes Filed: 01/08/2023 2:41 PM Note Text: January 08, 2023 Tai Hinojosa MD [address] / [place] [id number] Esteban Garza MD ([facility]) [address] [place] [address] Melanie Espinoza : 1955 Interval History: Melanie [...] pulse 83, h (more content not included)... [facility] 07-03-2022 Note HNO ID: [id number] Author: Tai Hinojosa MD Service: ? Author Type: Physician Type: Progress Notes Filed: 07/03/2022 12:35 PM Note Text: July 03, 2022 Tai Hinojosa MD [address] / [address] [address] Esteban Garza MD ([facility]) [address] [place] [address] Melanie Espinoza : 1955 Interval History: Melanie [...] This could b (more content not included)... [facility] 06-18-2022 Evaluation note Encounter Date Diagnosis [...] arthroplasty of right shoulder (ICD-10 - Z96.611) [employer] [facility] 10-17-2022 Evaluation note* Encounter Date Diagnosis [...] exercises, these were demonstrated. Call with questions/concerns. [employer] Other 09-20-2022 Instructions* Patient Instructions* Tai Hinojosa MD - 01/02/2022 9:43 AM EDT 1) Double the dose of Austedo to 12 mg twice a day for 1 month, then increase further to 18 mg 2) continue clonazepam and methocarbamol 3) continue primidone for the action tremor [facility] History of Present illness Narrative* Tai Hinojosa MD - 01/02/2022 9:25 AM EDT January 02, 2022 Tai Hinojosa MD [address] / [address] [address] Esteban Garza MD ([facility]) [facility] [place] [address] Melanie Espinoza : 1955 Interval History: Melanie [...] on the day of service, which included noiw-er-txme patient care, completing clinical documentation, obtaining and/or reviewing separately obtained history, performing a medically appropriate examination, counseling and educating the patient/family/caregiver, and ordering medications, tests, or procedures. Thank you for including me in the care of this interesting patient. 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 Her sodium is within normal limit. Continue fluid restriction. Nov, HTN (hypertension) (ICD-10 - I10) Blood pressure is high today but usually well controlled at [place] [facility]. Continue current medications. Nov, Hydronephrosis (ICD-10 - N13.30) She reported that she was seen by neurologist and had extensive work-up done. She was advised intervention needed. Nov, Dyslipidemia (ICD-10 - E78.5) Continue statins. Continue follow with PCP for LFTs and lipid profile monitoring. [employer] [facility] 08-22-2022 Evaluation note* Encounter Date Diagnosis [...] arthroplasty of right shoulder (ICD-10 - Z96.611) [employer] [facility] 07-14-2022 Evaluation note* Encounter Date Diagnosis [...] on her own. Call with questions/concerns . [employer] Other 07-05-2022 Evaluation note* Encounter Date Diagnosis Assessment Notes Treatment Notes Treatment Clinical Notes Oct, History of reverse total replacement of right shoulder joint (ICD-10 - Z98.890) [employer] Other 06-06-2022 Evaluation note* Encounter Date Diagnosis Assessment Notes Treatment Notes Treatment Clinical Notes Sep, Status post reverse total arthroplasty of right shoulder (ICD-10 - Z96.611) [employer] Other 03-30-2022 Miscellaneous Notes* Telephone Encounter - [...] 07/12/2021 12:53 PM EDT Donita calling from [facility] States the pt received a letter from insurance [employer] that medication Austedo 6 mg was denied. Will need prior authorization. Can you please assist with PA. [place] requesting that once PA approved to fax to them at [phone]. Thanks. * Telephone Encounter - Kailey Andrews - 07/12/2021 11:08 AM EDT Patient called and would like to know if the doctor can reach out to the insurance company to do a prior auth for Austedo 6mg to receive medication.Please advise Thank you, Kailey documented in [facility] NotePROCEDURE: XR SHOULDER RT 2V or [...] Electronically authenticated by: CM RAMIREZ Date: 2021-06-29 14:37[facility]02-15-2022 Evaluation note* Encounter Date Diagnosis Assessment [...] pain of right shoulder (ICD-10 - M25.511) [employer] Other 12-08-2021 Evaluation note* Encounter Date Diagnosis [...] stated that she has an appointment with banking representative to check her thyroid. She follow-up with her family doctor as well. [employer] Other Evaluation noteNo InformationNortAmerican Academic Health System [employer] Other Evaluation noteNo assessment information available [facility] Work Phone: Evaluation note* Diagnosis Lingual facial buccal dyskinesia- Primary Orofacial dyskinesia Dyskinesia, tardive Subacute 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 Dyskinesia, orofacial Excessive physiologic tremor Essential and other specified forms of tremor [facility] this encounter [facility]* Diagnosis Primary osteoarthritis of left hip- Primary Hyposmolality syndrome Hyposmolality and/or hyponatremia 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 System[facility]* Diagnosis Primary osteoarthritis of left hip- Primary Tardive dyskinesia Subacute 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 Primary hypertension Unspecified essential hypertension documented in this encounter [facility] SystemEvaluation [facility]* Diagnosis Primary osteoarthritis of left hip- Primary Primary hypertension Unspecified essential hypertension documented in this encounter [facility] Narrative - Reported* Type Description Date Medical History hypothyroidism Medical History anxiety and depression 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 Surgical History tubal revision 1984 Surgical History HIP FRACTURE 02/2020 Surgical History COLONSCOPY 2020 Surgical History RECTAL PROLAPSE 12/2020 Hospitalization History SEE ABOVE Hospitalization History RECTAL PROLAPSE 12/2020 [employer] Other History general Narrative - Reported* Type Description Date Medical History hypothyroidism Medical History anxiety and depression 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 Surgical History tubal revision 1984 Surgical History HIP FRACTURE 02/2020 Surgical History COLONSCOPY 2020 Surgical History RECTAL PROLAPSE 12/2020 Surgical History right reverse total shoulder 20 22 Hospitalization History SEE ABOVE Hospitalization History RECTAL PROLAPSE 12/2020 [employer] Other InstructionsNot on filedocumented in this encounter [employer] SystemInstructionsNot on filedocumented in this encounter [employer] SystemInstructionsNot on filedocumented in this encounter [facility] [employer] SystemInstructionsNot on filedocumented in this encounter [facility] Summary Purpose Family History No Family History [...] PM DNR Comfort Care Arrest (DNR -CCA) [place] 01/07/2021 4:37 PM 01/08/2021 7:11 PM Full Code 12/23/2020 7:31 AM 12/26/2020 12:12 PM Chief Complaint and Reason for Visit Chief Complaint Shoulder pain Shoulder pain Shoulder pain Shoulder pain Shoulder pain Z96.611 M75.101 Additional Source Comments INFORMATION SOURCE (unrecogn ized section and content) DATE CREATED AUTHOR 01/14/2020 [facility] DATE CREATED AUTHOR AUTHOR'S ORGANIZ ATION 02/23/2021 [facility] DATE CREATED AUTHOR AUTHOR'S ORGANIZ ATION 04/12/2021 [facility] DATE CREATED AUTHOR AUTHOR'S ORGANIZ ATION 09/26/2021 [facility] DATE CREATED AUTHOR AUTHOR'S ORGANIZ ATION 06/06/2022 [facility] DATE CREATED AUTHOR AUTHOR'S ORGANIZ ATION 08/09/2022 [facility] DATE CREATED AUTHOR AUTHOR'S ORGANIZ ATION 06/29/2023 [facility] DATE CREATED AUTHOR AUTHOR'S ORGANIZ ATION 08/14/2023 [facility] DATE CREATED AUTHOR AUTHOR'S ORGANIZ ATION 08/27/2023 [facility] REASON FOR VISIT (unrecogniz ed section and content) Reason Comments Insurance Authorization Reason Comments Follow Up Reason Onset Date Comments ACM MOHINDER RN 06/28/2023 Medication Ad herence review per request of payer Care Teams (unrecognized sec tion and content) Team Status: Inactive Member Role Status Dates Alexey Polo DO Primary Care Provider Active Stevenson Corbin MD Attending Provider Active Team Status: Inactive Member Role Status Dates Stevenson Corbin MD Attending Provider Active Alexey Polo DO Primary Care Provider Active Team Status: Active Member Role Status Dates Alexey Polo DO Primary Care Provider Active Window Caser Relationship Specialty Start Date End Date Esteban Garza [address] [place] [address] PCP - General Family Practice 07/21/18 Window Caser Relationship Specialty Start Date End Date Esteban Garza [address] [place] [address] PCP - General Family Medicine 07/21/18 Window Caser Relationship Specialty Start Date End Date Alexey Polo DO [address] [place] [address] PCP - General Family Medicine 03/27/22 Window Caser Relationship Specialty Start Date End Date Alexey Polo DO [address], [place] [address] PCP - General Family Medicine 03/27/22 Window Caser Relationship Specialty Start Date End Date Esteban Garza [address] [place] [address] PCP - General Family Medicine 07/21/18 Window Caser Relationship Specialty Start Date End Date Alexey Polo DO [address], [place] [address] PCP - General Family Medicine 03/27/22 Source Comments (unrecognize d section and content) In the event this informatio n is protected by the Federal Confidentiality of Alcohol and Drug Abuse Patient Records regulations: The Federal rules restrict any use of the information to criminally investigate or prosecute any alcohol or drug abuse patient.[facility] HospitalIn the event this information is protected by the Federal Confidentiality of Alcohol and Drug Abuse Patient Records regulations: The Federal rules restrict any use of the information to criminally investigate or prosecute any alcohol or drug abuse patient.[facility] HospitalIn the event this information is protected by the Federal Confidentiality of Alcohol and Drug Abuse Patient Records regulations: The Federal rules restrict any use of the information to criminally investigate or prosecute any alcohol or drug abuse patient.[facility] Goals (unrecognized section and content) Goals [...] BE BASED ON THE PRIMARY CLINICAL RECORDS. [facility]. provides no warranty or guarantee of the accuracy or completeness of information in this document.
[2023-09-10] MEDS: REGADENOSON 0.4 MG/5 ML SYRINGE 0.400000000000000022 MG IV (09:16)
--- NOTE | 2023-09-10 11:04 | P.STRESS_ITS ---
Stress Test Stress Test Allergies Allergy/AdvReac Type Severity Reaction Status Date / Time erythromycin base AdvReac Mild Verified 05/19/23 11:54 Requesting physician: JOHN POLO Procedure: Lexiscan Cardiolite stress test General Information: Reason for Stress Test: Abnormal EKG, pre-operative evaluation Cardiac History and Risk Factors: History of HTN. Family history of AL in father and stroke in mother. Resting 12 - Lead Electrocardiogram: Rate & rhythm: Appears to be a junctional rhythm (no P-waves) at a rate of 63. [place]: Rightward axis ST-segments: Mild downsloping in lead III Comparison from prior EKG 05/11/2023: Poor quality with baseline interference. Normal axis. Stress Test: Protocol: Denny protocol was initiated, but due to inability to ambulate on treadmill, the exercise component was therefore canceled.? Testing was changed to Lexiscan protocol, with injection of 0.4mg Lexiscan IV push followed by Cardiolite. Blood pressure: Initial and maximum: 130/82 Rate & rhythm: Patient remained in sinus rhythm during the exercise and recovery portions of the study.? The maximum heart rate was 85, which was 55% of the maximum predicted heart rate []. ST-segments & T-waves: 2 minutes after injection of Lexiscan, there was downsloping noted in the inferior leads II, III, aVF and lateral leads V4-6. Patient response/symptoms: Asymptomatic Interpretation: This is an abnormal Lexiscan stress test based on ST-segment downsloping in the inferolateral leads.? Asymptomatic during the study. Cardiolite imaging interpretation will be reported separately.? Clinical correlation required.?
== END 2023-09-10 07:07 | disposition home or self-care (01) ==
LOC: NM 07:06
PROVIDERS: PCP Family Medicine; Visit Provider Family Medicine
DX: R94.31 Abnormal electrocardiogram [ECG] [EKG] (principal)
CPT/HCPCS: 78452; 93017; A9500; J2785

== ENCOUNTER 2023-10-24 05:09 | Emergency (ER) | payer MEDICARE, MEDICAID, SELFPAY ==
[2023-10-24] VITALS (9 sets, daily range): BP systolic 124–130; BP diastolic 66–74; PULSE 59–68; TEMP 36.4; O2SAT 93–99
--- NOTE | 2023-10-24 05:14 | CT_ITS ---
The [address] [address] Patient Name: PATTY ROSE MRN: [id number] date: 1955 Sex: F Assigned Patient Location: ED.MAIN Current Patient Location: Accession/Order Number: [id number] Exam Date: 10/24/2023 06:02 Report Date: 10/24/2023 06:21 At the request of: EVA POOLE Procedure: CT head/brain wo con NONCONTRAST HEAD CT COMPARISON: Head CT 02/24/2021. CLINICAL HISTORY: Unwitnessed fall. TECHNIQUE: Routine noncontrast images of the brain obtained. CT examination of the head without IV contrast. Dose reduction techniques were achieved by using: automated exposure control and/or adjustment of mA and /or kV according to patient size and/or use of iterative reconstruction technique. FINDINGS: Paranasal sinuses and mastoid air cells are clear. Intraorbital contents are unremarkable. No acute bony abnormality. Intracranially, there is no evidence of hemorrhage, mass effect, or midline shift. Ventricles and cisternal spaces are age appropriate. Carotid calcifications redemonstrated. CT/CT head/brain wo con IMPRESSION: No acute intracranial abnormality. Electronically authenticated by: JEFE SAEED Date: 10/24/2023 06:21
--- NOTE | 2023-10-24 05:14 | ECG_ITS ---
[facility] Test Date: 2023-10-24 Pat Name: PATTY ROSE Department: Room: - Gender: Female X Ray Service Technician: : 1955 Requested By: JOHN POLO Order Number: [id number] Reading MD: KIM DOMÍNGUEZ Measurements Intervals [place] Rate: 64 P: 36 [place]: 184 QRS: 47 QRSD: 88 T: 34 QT: 418 QTc: 428 Interpretive Statements 1100 Sinus rhythm 0102 ARTIFACT PRESENT 9150 abnormal ECG Electronically Signed On 10-24-2023 23:07:56 EDT by KIM DOMÍNGUEZ
--- NOTE | 2023-10-24 05:19 | ED_ITS ---
HPI HPI - General Adult General Chief complaint: Altered Mental Status Stated complaint: FALL Time Seen by Provider: 10/24/23 05:14 Limitations: altered mental status History of Present Illness HPI narrative: This 68-year-old female who is currently a resident at [facility] and has a history of epilepsy and extrapyramidal movement disorder, depression, anxiety, fibromyalgia, SIADH, hypertension, osteoarthritis and chronic pain as well as multiple other medical issues is brought to the emergency department by EMS. The report given by EMS was that the patient was getting up this morning and performing her usual ADLs when the nurse heard a thud in her room and went to her room and found that she was on the floor. According to the nurse she was possibly seizing because she was writhing around and moving uncontrollably and not responsive to her commands. EMS was called and the patient was brought to the emergency department. According to the paramedics the patient was continually moving while in the ambulance and would not follow their commands or respond to her appropriately. Upon arrival to the emergency department her eyes are open. She appears to have some degree of involuntary muscle movement and some rigidity of her upper extremities questionable focal seizure. She preferentially lies on her right side and rolls herself to her right side. When repositioned to the supine position she rolls herself back to the right side. After being in the emergency department for a period of time she told the nurse taking care of her that she had a headache and was nauseated. She was then reevaluated by myself and admits that she has a headache and back pain. She is now awake, alert and oriented but still preferentially lying on her right side. Related Data Home Medications ?Medication ?Instructions ?Recorded ?Confirmed amlodipine 10 mg tablet 10 mg PO Q24H 04/03/23 05/11/23 atorvastatin 40 mg tablet 40 mg PO Q24H 04/03/23 05/11/23 buspirone 10 mg tablet 10 mg PO Q12H 04/03/23 05/11/23 calcium carbonate 600 mg-vitamin 1 tab PO BID 04/03/23 05/11/23 D3 10 mcg (400 unit) tablet (Calcium with Vitamin D) clonazepam 0.5 mg tablet 0.5 mg PO Q8H 04/03/23 05/11/23 cyclobenzaprine 10 mg tablet 10 mg PO Q8H 04/03/23 05/11/23 deutetrabenazine 12 mg tablet 12 mg PO Q12H 04/03/23 05/11/23 ([place]ustedo) dextromethorphan-guaifenesin 10 10 ml PO Q6H 04/03/23 05/11/23 mg-100 mg/5 mL oral syrup fluticasone propionate 50 1 spray intranasal Q24H 04/03/23 05/11/23 mcg/actuation nasal spray,suspension gabapentin 300 mg capsule 300 mg PO Q12H 04/03/23 05/11/23 gabapentin 600 mg tablet 600 mg PO Q24H 04/03/23 05/11/23 loperamide 2 mg capsule 2 mg PO Q6H PRN loose stool 04/03/23 05/11/23 (Anti-Diarrheal (loperamide)) pantoprazole 40 mg tablet,delayed 40 mg PO DAILY 04/03/23 05/11/23 release (Protonix) polyethylene glycol 3350 17 17 g PO DAILY 04/03/23 05/11/23 gram/dose oral powder (Miralax) primidone 50 mg tablet 250 mg PO Q24H 04/03/23 05/11/23 sucralfate 1 gram tablet 1 g PO Q6H 04/03/23 05/11/23 trazodone 100 mg tablet 100 mg PO Q24H 04/03/23 05/11/23 Previous Rx's ?Medication ?Instructions ?Recorded ferrous sulfate 325 mg (65 mg 325 mg PO BID 30 days #60 tabs 05/12/23 iron) tablet levothyroxine 100 mcg tablet 100 mcg PO ACB 30 days #30 tabs 05/12/23 Allergies Allergy/AdvReac Type Severity Reaction Status Date / Time erythromycin base AdvReac Mild Hives Verified 10/24/23 05:27 Opioid HPI Opioid Management Most Recent Opioid Data: Last Pain Scale 4 05/19/23 14:38 Review of Systems ROS Status of ROS 10 or more systems reviewed and unremark able except as noted in history and below [facility] Medical History (Updated 10/24/23 @ 06:58 by Cleo Garg MD) Anxiety ?F41.9 - Anxiety disorder, unspecified (ICD-10) Hyperlipidemia ?E78.5 - Hyperlipidemia, unspecified (ICD-10) Chronic hyponatremia ?E87.1 - Hypo-osmolality and hyponatremia (ICD-10) Rectal prolapse ?K62.3 - Rectal prolapse (ICD-10) Tremors of nervous system ?R25.1 - Tremor, unspecified (ICD-10) Tardive dyskinesia ?G24.01 - Drug induced subacute dyskinesia (ICD-10) Hypertension ?I10 - Essential (primary) hypertension (ICD-10) Surgical History H/O tubal ligation ?Z98.51 - Tubal ligation status (ICD-10) Family History Father Family history of cancer Family history of myocardial infarction Family history of hypertension Sister Family history of cancer Mother Family history of stroke Family history of hypertension Social History Within the past year, how often did you have a drink containing alcohol: never Score interpretation: A score less than 3 is consistent with normal alcohol consumption. Smoking status: Former smoker Non-prescribed substance use: denies use Highest level of school completed/degree received: high school graduate Exam Narrative Exam Narrative: Vital signs and Nursing Notes reviewed: General: Upon arrival the patient was lying on her right side and resisted movement to the supine position. She was opening her eyes at times otherwise squeezing her eyes shut. No respiratory distress noted HEENT: Normocephalic atraumatic, mucous membranes are moist and pink, eyes are clear, normal conjunctiva, vision is grossly intact Neck: Supple, no midline bony vertebral tenderness or step-off Chest: Lungs are clear to auscultation with good air entry, there is no wheezing rhonchi or rales appreciated no accessory muscle use, patient is speaking in complete sentences-no chest wall tenderness to palpation CVS: Regular rate and rhythm S1-S2, no murmurs rubs or gallops, pulses are brisk and equal bilaterally ABD: Soft, nondistended, nontender, no rebound guarding or rigidity, bowel sounds are normal, no pulsatile masses appreciated Extremities: Moving all extremities, no lower extremity tenderness or swelling noted Skin: Normal in appearance without rash,pallor, petechiae or purpura Neuro: Upon arrival to patient's extremities were rigid and she resisted any range of motion but then she relaxed and does not appear to have any gross focal deficits. Her speech is clear, there is no facial droop, she is moving all extremities. She does preferentially lie on her right side and returns to the right side when placed on the left side or in the supine position without assistance. Constitutional Vital Signs, click to edit/add: Last Vital Signs Temp 97.6 F 10/24/23 05:36 Pulse 63 10/24/23 06:40 Resp 14 10/24/23 06:40 BP 130/66 10/24/23 05:36 Pulse Ox 94 L 10/24/23 05:36 O2 Del Method Room Air 10/24/23 05:36 Course Vital Signs Vital signs: Vital Signs Pulse Rate 68 10/24/23 05:27 Respiratory Rate 18 10/24/23 05:27 Blood Pressure 130/68 10/24/23 05:27 Pulse Oximetry 93 L 10/24/23 05:27 Oxygen Delivery Method Room Air 10/24/23 05:27 Temperature 97.6 F 10/24/23 05:36 Pulse Rate 63 10/24/23 06:40 Respiratory Rate 14 10/24/23 06:40 Blood Pressure 130/66 10/24/23 05:36 Pulse Oximetry 94 L 10/24/23 05:36 Oxygen Delivery Method Room Air 10/24/23 05:36 Medical Decision Making MDM Narrative Medical decision making narrative: This 68-year-old female with a history of epilepsy and movement disorder who is currently residing in a local extended care facility was transferred for evaluation after she was heard falling and found to be altered and difficult to control or stop moving in her room. EMS was called and she was persistently moving and uncooperative with them. Upon arrival she appeared to have some facial grimacing and a certain degree of rigidity of her upper extremities. She was given a milligram of Ativan and on reevaluation her symptoms appear to be resolving. She complains of a headache and initially had some nausea. After being in the emergency department she became awake alert oriented and then complained of some mid back pain and was noted to have some superficial abrasions in her thoracic region.. She was supposed to have a cardiac catheterization in [place] later today. An EKG done upon arrival was limited by her movement but does not show any acute findings. Clinically I suspect that she had a seizure as she returned to her normal level of consciousness shortly after arrival and after 1 mg of IV Ativan. She will be signed out to the incoming physician for further evaluation and CT scan of the head, cervical spine and thoracic spine due to her fall. Medical Records Medical records reviewed: Yes I reviewed the patient's medical records Medical records narrative: The [address] [address] [address] Scan Report Signed Patient: PATTY ROSE MR#: [id number] : 1955 Acct:[id number] Age/Sex: 68 / F ADM Date: 10/24/23 Loc: ER Attending Dr: Ordering Physician: Cleo Garg Date of Service: 10/24/23 Procedure(s): CT head/brain wo con Accession Number(s): [id number] cc: JOHN POLO ~ The [address] [address] Patient Name: PATTY ROSE MRN: [id number] date: 1955 Sex: F Assigned Patient Location: ED.MAIN Current Patient Location: ER Accession/Order Number: [id number] Exam Date: 10/24/2023 06:02 Report Date: 10/24/2023 06:21 At the request of: CLEO GARG Procedure: CT head/brain wo con NONCONTRAST HEAD CT COMPARISON: Head CT 02/24/2021. CLINICAL HISTORY: Unwitnessed fall. TECHNIQUE: Routine noncontrast images of the brain obtained. CT examination of the head without IV contrast. Dose reduction techniques were achieved by using: automated exposure control and/or adjustment of mA and /or kV according to patient size and/or use of iterative reconstruction technique. FINDINGS: Paranasal sinuses and mastoid air cells are clear. Intraorbital contents are unremarkable. No acute bony abnormality. Intracranially, there is no evidence of hemorrhage, mass effect, or midline shift. Ventricles and cisternal spaces are age appropriate. Carotid calcifications redemonstrated. CT/CT head/brain wo con IMPRESSION: No acute intracranial abnormality. Electronically authenticated by: JEFE SAEED Date: 10/24/2023 06:21 Lab Data Labs: Lab Results 10/24/23 Range/Units 05:20 WBC 9.4 (4.0-11.0) 10^3/uL RBC 4.85 (4.20-5.40) 10^6/uL Hgb 13.8 (12.0-16.0) g/dL Hct 41.7 (36.0-48.0) % MCV 86.0 (81.0-99.0) fL MCH 28.5 (26.7-34.0) pg MCHC 33.1 (29.9-35.2) g/dL RDW 15.0 (11.0-15.0) % Plt Count 373 (150-450) 10^3/uL MPV 8.4 L (9.5-13.5) fL Neut % (Auto) 62.0 (43.0-75.0) % Lymph % (Auto) 23.9 (20.5-60.0) % [place] % (Auto) 9.5 (1.7-12.0) % Eos % (Auto) 3.7 (0.9-7.0) % Baso % (Auto) 0.6 (0.2-2.0) % Neut # (Auto) 5.8 (1.4-6.5) 10^3/uL Lymph # (Auto) 2.3 (1.2-3.8) 10^3/uL [place] # (Auto) 0.9 H (0.3-0.8) 10^3/uL Eos # (Auto) 0.4 (0.0-0.7) 10^3/uL Baso # (Auto) 0.1 (0.0-0.1) 10^3/uL Abs Immat Gran (auto) 0.03 (0.00-0.03) 10^3/uL Imm/Tot Granulo (auto) 0.3 (0.0-0.5) % Sodium 134 L (136-145) mmol/L Potassium 3.8 (3.5-5.1) mmol/L Chloride 100 (98-107) mmol/L Carbon Dioxide 27.9 (21.0-32.0) mmol/L Anion Gap 9.9 BUN 11.0 (7.0-18.0) mg/dL Creatinine 0.57 (0.55-1.02) mg/dL Est GFR ( Amer) >60 (>=60) Est GFR (Non-Af Amer) >60 (>=60) BUN/Creatinine Ratio 19.3 Glucose 93 (74-106) mg/dL Lactate 1.3 (0.4-2.0) mmol/L Calcium 9.2 (8.5-10.1) mg/dL Total Bilirubin 0.3 (0.2-1.0) mg/dL AST 19 (15-37) U/L ALT 18 (14-59) U/L Alkaline Phosphatase 99 (46-116) U/L Troponin I High Sens 4.8 (4.0-51.3) pg/mL Total Protein 7.2 (6.4-8.2) g/dL Albumin 3.8 (3.4-5.0) g/dL Globulin 3.4 g/dL Albumin/Globulin Ratio 1.1 TSH 5.938 H (0.358-3.740) uIU/mL ECG Data Attestation: I personally reviewed and interpreted this ECG as follows: (Sinus rhythm, interpretation is limited by patient movement, rate is 64, normal axis, no acute ST segment elevation appreciated, diffusely flattened T waves appreciated) Discharge Plan Discharge Chief Complaint: Altered Mental Status Clinical Impression: Altered mental status Patient Disposition: Still a Patient Prescriptions / Home Meds: No Action levothyroxine 100 mcg Tablet 100 mcg PO ACB 30 Days Qty: 30 0RF ferrous sulfate 325 mg (65 mg iron) Tablet 325 mg PO BID 30 Days Qty: 60 0RF amlodipine 10 mg tablet 10 mg PO Q24H atorvastatin 40 mg tablet 40 mg PO Q24H [place] 12 mg tablet 12 mg PO Q12H buspirone 10 mg tablet 10 mg PO Q12H clonazepam 0.5 mg tablet 0.5 mg PO Q8H cyclobenzaprine 10 mg tablet 10 mg PO Q8H fluticasone propionate 50 mcg/actuation spray,suspension 1 spray INTRANASAL Q24H gabapentin 300 mg capsule 300 mg PO Q12H gabapentin 600 mg tablet 600 mg PO Q24H primidone 50 mg tablet 250 mg PO Q24H sucralfate 1 gram tablet 1 g PO Q6H trazodone 100 mg tablet 100 mg PO Q24H pantoprazole [Protonix] 40 mg tablet,delayed release (DR/EC) 40 mg PO DAILY polyethylene glycol 3350 [Miralax] 17 gram/dose powder 17 g PO DAILY loperamide [Anti-Diarrheal (loperamide)] 2 mg capsule 2 mg PO Q6H PRN (Reason: loose stool) dextromethorphan-guaifenesin 10-100 mg/5 mL syrup 10 ml PO Q6H calcium carbonate-vitamin D3 [Calcium with Vitamin D] 600 mg-10 mcg (400 unit) tablet 1 tab PO BID Print Language: Khmer Referrals: JOHN POLO [Primary Care Provider] - 1 week
--- NOTE | 2023-10-24 05:29 | CT_ITS ---
[address] [address] Patient Name: PATTY ROSE MRN: [id number] date: 1955 Sex: F Assigned Patient Location: ER Current Patient Location: .[facility] Accession/Order Number: [id number] Exam Date: 10/24/2023 06:10 Report Date: 10/24/2023 07:11 At the request of: EVA MARKER Procedure: CT cervical spine wo con EXAMINATION: CT Cervical Spine without IV Contrast TECHNIQUE: Standard protocol axial Cervical spine CT was performed without intravenous contrast. Multiplanar reformatted images were created according to the routine protocol. QPP DOCUMENTATION: At least one of the following dose reduction techniques was utilized: Iterative reconstruction, and/or Automatic Exposure Control, and/or mA/kV adjustment based on body size. INDICATION: . seizure COMPARISON: 02/24/2021 FINDINGS: Segmentation: There are 7 cervical vertebrae. Alignment: There is minimal degenerative anterolisthesis of C3 on C4. There is slight reversal of the normal cervical lordosis. Vertebrae: No evidence of acute fractures or significant losses of vertebral body heights. Intervertebral Discs: There is advanced multilevel degenerative disc disease. This is most notable at C3-C4 through C6-C7. There are anterolateral endplate osteophytes at multiple levels. C2-C3: There is fusion of the facet joints. No spinal canal or foraminal stenosis. C3-C4: Bilateral facet arthropathy results in mild anterolisthesis of C3 on C4. Small posterior disc osteophyte complex. Mild spinal canal narrowing. Bilateral uncovertebral and facet joint arthropathy. Mild to moderate foraminal narrowing. C4-C5: Small posterior disc osteophyte complex. No significant spinal canal stenosis. Bilateral uncovertebral and facet joint arthropathy. Mild narrowing of the right neural foramen. Left neural foramen is patent. C5-C6: Small posterior disc osteophyte complex. Mild spinal canal narrowing. Mild uncovertebral arthropathy. Mild foraminal narrowing. C6-C7: Small posterior disc osteophyte complex. No spinal canal stenosis. Bilateral uncovertebral arthropathy. Mild foraminal narrowing. C7-T1: Mild facet arthropathy. No spinal canal or foraminal stenosis. Paraspinal Tissues: Unremarkable. Additional Findings: None. CT/CT cervical spine wo con IMPRESSION: 1. No CT evidence of acute abnormalities throughout the cervical spine. 2. Advanced multilevel degenerative changes Electronically authenticated by: MARYANNE HIGUERA Date: 10/24/2023 07:11
[2023-10-24 05:33] LABS: Basophils Absolute Auto 0.1 10^3/uL (0.0-0.1); Basophils Percent Auto 0.6 % (0.2-2.0); Eosinophils Absolute Auto 0.4 10^3/uL (0.0-0.7); Eosinophils Percent Auto 3.7 % (0.9-7.0); Hematocrit 41.7 % (36.0-48.0); Hemoglobin 13.8 g/dL (12.0-16.0); Immature Granulocytes Abs Auto 0.03 10^3/uL (0.00-0.03); Immature Granulocytes Pct Auto 0.3 % (0.0-0.5); Lymphocytes Absolute Auto 2.3 10^3/uL (1.2-3.8); Lymphocytes Percent Auto 23.9 % (20.5-60.0); Mean Corpuscular HGB Conc 33.1 g/dL (29.9-35.2); Mean Corpuscular Hemoglobin 28.5 pg (26.7-34.0); Mean Platelet Volume 8.4 fL (9.5-13.5); Monocytes Absolute Auto 0.9 10^3/uL (0.3-0.8); Monocytes Percent Auto 9.5 % (1.7-12.0); Neutrophils Absolute Auto 5.8 10^3/uL (1.4-6.5); Platelet Count 373 10^3/uL (150-450); Red Blood Count 4.85 10^6/uL (4.20-5.40); White Blood Count 9.4 10^3/uL (4.0-11.0)
[2023-10-24] MEDS: LORAZEPAM 2 MG/ML VIAL 1 MG IV (05:35)
[2023-10-24 05:51] LABS: Alanine Aminotransferase 18 U/L (14-59); Albumin Globulin Ratio 1.1; Albumin Level 3.8 g/dL (3.4-5.0); Alkaline Phosphatase 99 U/L (46-116); Anion Gap 9.9; Aspartate Amino Transferase 19 U/L (15-37); BUN Creatinine Ratio 19.3; Bilirubin Total 0.3 mg/dL (0.2-1.0); Calcium 9.2 mg/dL (8.5-10.1); Carbon Dioxide 27.9 mmol/L (21.0-32.0); Chloride 100 mmol/L (98-107); Estimated GFR (African America >60 (>=60); Estimated GFR (Non-African Ame >60 (>=60); Globulin 3.4 g/dL; Glucose 93 mg/dL (74-106); Potassium 3.8 mmol/L (3.5-5.1); Sodium 134 mmol/L (136-145); Total Protein 7.2 g/dL (6.4-8.2)
[2023-10-24 05:52] LABS: Lactate/Lactic Acid 1.3 mmol/L (0.4-2.0)
--- NOTE | 2023-10-24 05:53 | CT_ITS ---
The [address] [address] Patient Name: PATTY ROSE MRN: [id number] date: 1955 Sex: F Assigned Patient Location: ER Current Patient Location: ED.MAIN Accession/Order Number: [id number] Exam Date: 10/24/2023 06:10 Report Date: 10/24/2023 07:12 At the request of: EVA MARKER Procedure: CT thoracic spine wo con PROCEDURE: CT thoracic spine wo con COMPARISON: None. HISTORY: seizure, back pain TECHNIQUE: Axial, Coronal, and Sagittal CT images obtained without IV contrast. Dose reduction techniques were achieved by using automated exposure control and/or adjustment of mA and/or kV according to patient size and/or use of iterative reconstruction technique. FINDINGS: PARASPINAL AREA: Normal with no visible mass. DISCS: Mild multilevel disc space narrowing BONES: Subtle contour deformities of the posterior right seventh eighth and ninth ribs with sclerosis, remote fractures are favored. No acute fracture or significant spondylolisthesis. Mild to moderate diffuse degenerative spondylosis OTHER: Negative. CT/CT thoracic spine wo con IMPRESSION: Degenerative changes, no acute abnormality Electronically authenticated by: CM RAMIREZ Date: 10/24/2023 07:12
[2023-10-24] MEDS: ONDANSETRON PF 4 MG/2 ML VIAL IV (05:55)
[2023-10-24] MEDS: ACETAMINOPHEN 325 MG TABLET 650 MG PO (05:55)
[2023-10-24 06:00] LABS: Troponin I High Sensitivity 4.8 pg/mL (4.0-51.3)
[2023-10-24 06:01] LABS: Thyroid Stimulating Hormone 5.938 uIU/mL (0.358-3.740)
[2023-10-24 07:32] LABS: Bilirubin Urine NEGATIVE (NEGATIVE); Blood Urine TRACE-I (NEGATIVE); Clarity Urine CLEAR (CLEAR); Color Urine LT. YELLOW (YELLOW); Glucose Urine UA NEGATIVE (NEGATIVE); Ketones Urine NEGATIVE (NEGATIVE); Leukocyte Esterase Urine NEGATIVE (NEGATIVE); Nitrite Urine NEGATIVE (NEGATIVE); Protein Urine NEGATIVE (NEG/TRACE); Urobilinogen Urine 0.2 EU/dL (0.2-1.0)
[2023-10-24 08:33] LABS: Bacteria Urine TRACE #/HPF (NONE SEEN); Cast Seen? NONE SEEN #/LPF (NONE SEEN); Crystals Seen? None Seen #/HPF (None Seen); Mucus Urine NONE SEEN (NONE SEEN); Squamous Epithelial Cell Urine RARE #/LPF (NONE/RARE)
[2023-10-24 08:34] LABS: Amphetamine Screen Urine NEGATIVE (NEGATIVE); Benzodiazepines Screen Urine POSITIVE (NEGATIVE); Cannabinoid Screen Urine NEGATIVE (NEGATIVE); Cocaine Screen Urine NEGATIVE (NEGATIVE); Methadone Screen Urine NEGATIVE (NEGATIVE); Methamphetamines Screen Urine NEGATIVE (NEGATIVE); Opiate Screen Urine NEGATIVE (NEGATIVE); Phencyclidine Screen Urine NEGATIVE (NEGATIVE); Tricyclic Antidepressant Urine NEGATIVE (NEGATIVE); Urine Culture Indicated NO
[2023-10-24 08:35] LABS: Barbiturates Screen Urine POSITIVE (NEGATIVE); Buprenorphine Screen Urine NEGATIVE (NEGATIVE); Oxycodone Screen Urine NEGATIVE (NEGATIVE)
== END 2023-10-24 08:40 | disposition home or self-care (01) ==
PROVIDERS: Emergency Provider Emergency Medicine; PCP Family Medicine
DX: R41.82 Altered mental status, unspecified (principal); G40.909 Epilepsy, unspecified, not intractable, without status epilepticus; F32.A Depression, unspecified; F41.9 Anxiety disorder, unspecified; M79.7 Fibromyalgia; I10 Essential (primary) hypertension; M19.90 Unspecified osteoarthritis, unspecified site; G89.29 Other chronic pain; E22.2 Syndrome of inappropriate secretion of antidiuretic hormone; G25.9 Extrapyramidal and movement disorder, unspecified; Z87.891 Personal history of nicotine dependence
CPT/HCPCS: 36415; 70450; 72125; 72128; 80053; 80307; 81001; 83605; 84443; 84484; 85025; 93005; 96374; 96375; 99285; J2060; J2405

== ENCOUNTER 2023-12-24 00:50 | Emergency (ER) | payer MEDICARE, MEDICAID, SELFPAY ==
[2023-12-24 00:52] VITALS: BP 116/70; PULSE 60; TEMP 36.7; O2SAT 96
--- OUTSIDE RECORDS SUMMARY | 2023-12-24 00:56 | XMS_ITS | CCD ---
Author Organization [facility] Care Team Providers Care Loading Checker Name Role Phone HERVE STARKEY Admitting Unavailable ESTEBAN GARZA Referring Unavailable ESTEBAN GARZA Primary Care Unavailable HERVE STARKEY Attending Unavailable Alexey Polo Unavailable Radha Bosch Unavailable Stevenson Corbin Unavailable Sena Eugene Unavailable MD Stevenson Corbin Attending Provider [phone] DO Alexey Polo Primary Care Provider Esteban Garza Primary Care Provider [phone] Esteban Garza Primary Care Provider [phone] CHRIST, DR ALEXEY Garcia Primary Care Unavailable LENA PALMER Attending Unavailable ZARI Gore, LENA Admitting Unavailable ASHLEY, DR CM Napier Consulting Unavailable SOFI DISLA Consulting Unavailable AZRI Gore, LENA Consulting Unavailable CHRIST, DR ALEXEY [...] SOFI Attending Unavailable NIGHAT, SOFI Admitting Unavailable NIGHAT, SOFI Consulting Unavailable CHRISTOPHE, JEFE Consulting Unavailable Furlong, DO Blackburn Primary Care Provider [phone] MD Stevenson Corbin Attending Provider Olexa, Stevenson [...] Attending Unavailable Furlong, Alexey Primary Care Unavailable Furlong Alexey CACERES Primary Care Provider Esteban Garza Primary Care Provider ALEXEY POLO Referring Unavailable FURLONG, ALEXEY G Primary Care Unavailable FURLONG, ALEXEY G Referring Unavailable FURLONG, ALEXEY G Primary Care Unavailable FURLONG, ALEXEY G Referring Unavailable FURLONG, ALEXEY G Primary Care Unavailable FURLONG, ALEXEY G Referring Unavailable FURLONG, ALEXEY G Primary Care Unavailable Esteban Garza Primary Care Provider ESTEBAN GARZA Primary Care Unavailable TAI HINOJOSA Attending Unavailable ESTEBAN GARZA Primary Care Unavailable TAI HINOJOSA Attending Unavailable TAI HINOJOSA Attending Unavailable ESTEBAN GARZA Primary Care Unavailable MELA, ERNESTO Referring Unavailable MELA, ERNESTO Referring Unavailable MELA, ERNESTO Referring Unavailable MELA, ERNESTO Referring Unavailable LEONIE JOYA Attending Unavailable ELTAHAWY, EHAB Admitting Unavailable ELTAHAWY, EHAB Attending Unavailable JAKYHERVE A Attending Unavailable MELA, ERNESTO Admitting Unavailable MELA, ERNESTO Attending Unavailable MELA, ERNESTO Attending Unavailable MELA, ERNESTO Attending Unavailable MELA, ERNESTO Attending Unavailable ELTAHAWY, EHAB Referring Unavailable JAKY, HERVE A Referring Unavailable MELA, ERNESTO Referring Unavailable MELA, ERNESTO Referring Unavailable Allergies Allergy Classification Reported Allergen(s) Allergy Type Date of Onset Reaction(s) Facility (5 sources) Azithromycin; Translations: [AZITHROMYCIN] Drug Allergy 0 Unknow [facility] Repository (10 sources) Erythromycin; Translations: [erythromycin] Drug Allergy 7 Nausea And Vomiting, Unknown [facility] (6 sources) erythromycin base; Translations: [Erythromycin Base] Allergy to substance 1 Unknown Reaction [facility] (1 source) Azithromycin Drug Allergy 2 [facility] Repository (6 sources) Clarithromycin; Translations: [CLARITHROMYCIN] Drug [...] th every eight hours as needed acetaminophen (TYLENOL) 500 mg tablet Ta ke 500 mg by mouth every 8 hours as needed. 0 Active take 1 [...] / HYDROcodone bitartrate 5 mg oral tablet (3 sources) Opioid Agonist take 1 tablet by mouth every eight hours as needed HYDROcodone-acetam inophen (NORCO) 5-325 mg per tablet Take 1 tablet by mouth every 8 hours as needed for pain. 0 Active take 1 tablet by courtney th every six hours HYDROcodone-Acetaminophen 5-325 MG 1 tab let as needed Orally every 6 hrs Active Comment on above: Take 1 tablet by courtney th every 8 hours as needed for pain. alendronic acid 70 mg oral tablet (20 sources) Bisphosphonate Start: 05-07-2018 End: 09-13-2021 alendronate (FOSAMAX) 70 mg tablet once each [...] mouth and stay upright for 30 min. amLODIPine 5 mg oral tablet (20 sources) Dihydropyridine Calcium Channel Gilson Start: 2 take 10 mg by mouth once daily Amlodipine Active 10 MG PO Daily September 12, 2021 11:00pm Start: 07-27-2020 take 1 tablet by courtney every twenty-four hours amLODIPine Besylate 10 MG 1 tablet Orally Once a day Jul, Active amLODIPine (NORV ASC) 5 mg tablet Take by mouth once daily. 0 Active take 2 tablets by mo [facility] in the morning amLODIPine (NORVASC) 5 mg tablet Take 2 tablets (10 mg total) by mouth in the morning. 0 Active Comment on above: Take by mouth once d aily. ascorbic acid 500 mg oral tablet (4 sources) Vitamin C take 1 tablet by mouth once daily ascorbic acid, vitamin C, (VITAMIN C WITH NOVA HIPS) 500 mg tablet Take 500 mg by mouth once daily. 0 Active Comment on above: Take 500 mg by mouth once daily. atorvastatin 40 mg oral tablet (20 sources) HMG-CoA Reductase Inhibitor Start: 1 take 1 tablet by mouth once daily [...] a day Active calcium carbonate 1500 mg oral tablet (3 sources) calcium carbonat e (CALTRATE) 600 mg calcium (1,500 mg) tab Take 600 mg by mouth. 0 Active Comment on above: Take 600 mg by mouth . calcium carbonate 1500 mg / cholecalciferol 200 unt oral tablet (7 sources) Vitamin D Start: take 2 tablets by mouth once daily Calcium Carbonate-Vitamin D3 (Calcium + D) 600 mg-5 mcg (200 unit) Tablet Active 2 TAB PO Daily September 12, 2021 11:00pm calcium carbonat e-vitamin D3 (CALCIUM 600 WITH VITAMIN D3) 600 mg(1,500mg) - 400 unit tablet,chewable Chew 2 tablets and swallow daily. 0 Active carBAMazepine 200 mg oral tablet (1 source) Mood Stabilizer Start: 11-12-2023 End: 02-10-2024 carBAMazepine (TEGRETOL) 200 mg tablet Indications: Lingual facial buccal dyskinesia , Dyskinesia, tardive Take 1 tablet by mouth three times a day. [Start with this only twice a day for 1-2 weeks, then go to 3 doses per day 90 tablet 2 11/12/2023 02/10/2024 Active celecoxib 100 mg oral capsule (1 source) Nonsteroidal Anti-inflammatory Drug take 1 capsule by mouth twice daily celecoxib (CELEBREX) 100 mg capsule Take 100 mg by mouth two times a day. 0 Active cephalexin 500 mg oral capsule [...] mg oral tablet (20 sources) Benzodiazepine Start: 01-08-2023 take 1.5 tablets by mouth three times [...] 27, 2020 11:00pm July 05, 2020 9:25am take 1 tablet by courtney th three times daily clonazePAM (KLONOPIN) 0.5 mg tablet Take 0.5 mg by mouth three times a day. Take 3 tablets by mouth 3 times a day. 0 Active Comment on above: Take 1 tablet by courtney th three times daily for 90 days. [including bedtime] Take 1 mg by mouth t wice daily as needed. Take 1.5 tablets by mouth three times daily for 90 days. [including bedtime] cyclobenzaprine hydrochloride 10 mg oral tablet (6 sources) Muscle Relaxant Start: 023 cyclobenzaprine (FLEXERIL) 10 mg tablet deutetrabenazine 12 mg oral tablet (14 sources) Start: 022 take 2 tablets by mouth twice daily at mealtime deutetrabenazine (AUSTEDO) 12 mg tab Indications: Dyskinesia, tardive , Lingual facial buccal dyskinesia , Dyskinesia, orofacial Take 2 tablets (24 mg) by mouth twice daily with meals. 120 tablet 5 07/03/2022 Active Start: 02-02-2022 End: 05-03-2022 take 2 [...] mg/ml / guaiFENesin 20 mg/ml oral solution (6 sources) Uncompetitive Z-hjaxwo-I-aspartate Receptor Antagonist, Sigma-1 Agonist take 10 mL by mouth every six hours as needed guaiFENesin-dextromethorphan (ROBITUSSIN DM) 100-10 mg/5 mL syrup Take 10 mL by mouth every 6 hours as needed. 0 Active Comment on above: Take 10 mL by mouth every 6 hours as needed. ferrous sulfate 325 mg oral tablet (20 sources) Sta rt: take 325 mg by mouth every week Ferrous Sulfate Active 325 MG PO 3 Times a week September 12, 2021 11:00pm takes every mon, sat, sat take 1 tablet by courtney [...] propionate 0.05 mg/actuat metered dose nasal spray (20 sources) Corticosteroid Start: 03-19-2022 fluticasone propionate (FLONASE) [...] Start: 09-21-2020 gabapentin (NEURONTIN) 300 mg capsule Take 1 capsule in the morning, one in early afternoon, and 2 in the evening 120 capsule 2 10/03/2020 Active Start: 06-29-2020 take 600 mg by [...] a day. ibuprofen 200 mg oral tablet (10 sources) Nonsteroidal Anti-inflammatory Drug Start: 09-13-2021 take [...] mg oral tablet (20 sources) l-Thyroxine Start: 11-26-2019 levothyroxine (SYNTHROID) 75 mcg tablet take 1 tablet by courtney th every [...] Q6H September 12, 2021 11:00pm take 1 capsule by mo uth every [...] as needed. methocarbamol 750 mg oral tablet (17 sources) Muscle Relaxant Start: 1 take 750 mg by mouth three times daily Methocarbamol Active 750 MG PO Three times daily June 27, 2020 11:00pm End: 11-12-2023 take 1 tablet by mouth four times daily methocarbamol (ROBAXIN) 750 mg tablet Take 750 mg by mouth four times daily. 0 11/12/2023 Discontinued (Discontinued by another Health Care Provider) Comment on above: Take 750 mg by mouth four times daily. mirtazapine 15 mg oral tablet (1 source) take 1 tablet by mouth once daily at bedtime mirtazapine (REMERON) 15 mg tablet Take 15 mg by mouth daily at bedtime. 0 Active ondansetron 4 mg oral tablet (14 sources) Serotonin-3 Receptor Antagonist Start: 2 take [...] (20 sources) Proton Pump Inhibitor Start: 06-29-19 21 [...] by mouth once daily. polyethylene glycol 3350 72010 mg powder for oral solution (9 sources) Osmotic Laxative Start: 2 Polyethylene Glycol 3350 (Miralax) 17 gram/dose Powder Active 17 GM PO Daily September 12, 2021 11:00pm Comment on above: Take by mouth once d aily. Dissolve dose in 4 - 8 ounces of liquid and take as directed. primidone 250 mg oral tablet (20 sources) [...] daily. sodium chloride 1000 mg oral tablet (20 [...] times daily. sucralfate 1000 mg oral tablet (14 sources) Aluminum Complex Start: 09-13-2021 sucralfate (CARAFATE) 1 gram tablet take 1 tablet by mouth every six hours Sucralfate 1 GM 1 tablet on an empty stomach Orally FOUR TIMES A DAY Active Comment on above: Take 1 g by mouth fo ur times daily. traZODone hydrochloride 100 mg oral tablet [...] every 4 hrs for 5 days KALEE: [id number] Oct, Not-Taking busPIRone hydrochloride 10 mg oral tablet (20 [...] September 12, 2021 11:00pm Start: 07-05-2020 End: 11-12-2023 take 10 mg by mouth three times [...] 0 Refills: 0 Ordered: 25-Sep-2021 DO Active escitalopram 10 mg oral tablet (17 sources) Serotonin Reuptake Inhibitor Start: End: 2 [...] 2020 11:00pm September 13, 2021 11:01am Magnesium (7 sources) Start: 06-28-2020 End: 09-13-2021 take 250 [...] mouth . menthol 0.04 mg/mg topical gel (13 sources) Start: 09-13-2021 End: 10-18-2021 Menthol (Biofreeze (Menthol)) 4 % Gel Discontinued 1 APPLIC TOPICAL Q8H September 12, 2021 11:00pm October 18, 2021 6:26am menthol (BIOFREE ZE, MENTHOL,) 4 % topical gel Apply to affected area three times daily as needed. 0 Active Comment on above: Apply to affected ar ea three times daily as needed. pravastatin sodium 40 mg oral tablet (7 sources) HMG-CoA Reductase Inhibitor Start: 06-29-19 End: [...] kidney disease, unspecified] Resolved: 3 09-14-2022 Chronic Coronary atherosclerosis and other heart disease (2 sources) Atherosclerotic heart disease of [place] coronary artery without angina pectoris; Translations: [Atherosclerotic heart disease of [place] coronary artery without angina pectoris] Onset: 4 Chronic Deficiency and other anemia (1 source) [...] essential hypertension] Onset: 1 Resolved: 2 Chronic Fracture of neck of femur (hip) (6 sources) Closed fracture of neck of femur; Translations: [Fracture of unspecified part of neck of unspecified femur, initial encounter for closed fracture] Onset: 1 02-03-2021 Episodic Gastrointestinal hemorrhage (4 sources) Hemorrhage of anus and rectum; Translations: [HEMORRHAGE OF ANUS AND RECTUM] Onset: 2 Episodic Hypertension with complications and secondary hypertension (2 sources) Hypertensive heart and chronic kidney disease without heart failure, with stage 5 chronic kidney disease, or end stage renal disease; Translations: [Hypertensive heart and chronic kidney disease without heart failure, with stage 5 chronic kidney disease, or end stage renal disease] Onset: 4 Chronic Joint disorders and dislocations; trauma-related (2 sources) Traumatic arthropathy, left hip; Translations: [Traumatic arthropathy, left hip] Onset: 4 Chronic Malaise and fatigue (1 source) Weakness; Translations: [WEAKNESS] Onset: 3 Episodic Menopausal disorders (1 source) Hormone replacement therapy; Translations: [HORMONE REPLACEMENT THERAPY] Onset: 3 Episodic Mood disorders (4 sources) Depressive disorder; Translations: [Depressive disorder, not elsewhere classified] 07-04-2020 Chronic Osteoarthritis (20 sources) Arthritis; Translations: [Arthritis] Onset: 2 Resolved: 2 Chronic Other aftercare (1 source) Other penitentiary (current) drug therapy; Translations: [OTH GROUP HOME CURRENT DRUG THERAPY] Onset: 3 Episodic Other bone disease and musculoskeletal deformities (2 sources) Idiopathic aseptic necrosis of unspecified bone; Translations: [Idiopathic aseptic necrosis of unspecified bone] Onset: 4 Chronic Other bone disease and musculoskeletal deformities (2 [...] tissue disease (3 sources) Rhabdomyolysis; Translations: [Rhabdomyolysis] 03-18-2021 Episodic Other diseases of kidney and ureters (3 sources) Hydronephrosis; Translations: [Unspecified hydronephrosis] 06-30-2020 Episodic Other endocrine disorders (4 sources) Syndrome of inappropriate vasopressin secretion; Translations: [Syndrome of inappropriate secretion of antidiuretic hormone] Onset: 3 09-14-2022 Chronic Other endocrine disorders (4 sources) Hypoglycemia; Translations: [Hypoglycemia, unspecified] Onset: 3 09-14-2022 Chronic Other hereditary and degenerative nervous system conditions (3 sources) Orofacial dyskinesia; 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 Other hereditary and degenerative nervous system conditions (1 source) Restless legs syndrome; Translations: [RESTLESS LEGS SYNDROME] Onset: 3 Chronic Other hereditary and degenerative nervous system conditions (5 sources) Movement disorder; Translations: [Extrapyramidal and movement disorder, unspecified] Onset: 2 04-14-2023 Chronic Other hereditary and degenerative nervous system conditions (7 sources) Tardive dyskinesia; Translations: [Drug induced subacute dyskinesia] Episodic Other hereditary and degenerative nervous system conditions (3 sources) Drug induced subacute dyskinesia; Translations: [DRUG INDUCED [...] conditions (not mental disorders or infectious disease) (14 sources) Electrocardiogram abnormal; Translations: [Nonspecific abnormal electrocardiogram [ECG] [EKG]] Onset: 4 Episodic Residual codes; unclassified (3 sources) Altered mental status; Translations: [Altered mental status, unspecified] 06-30-2020 Episodic Residual codes; unclassified (2 sources) Pain, unspecified; Translations: [Pain, unspecified] Onset: 4 Episodic Septicemia (except in labor) (3 sources) [...] infection (4 sources) COVID-19; Translations: [COVID-19] Onset: Past or Other Problems Problem Classification Problem [...] [Acute hyponatremia] Onset: 12-23-2020 Resolved: 12-06-2021 Episodic Nausea and vomiting (8 sources) Nausea; [...] shoulder; Translations: [PAIN IN RIGHT SHOULDER] Onset: 02-15-2022 Resolved: 05-30-2021 Episodic Other non-traumatic joint disorders [...] Test Name Value Interpretation Reference Range Facility 36on 12-12-2023 36 I spoke to the nurse caring for the patient to see how she is doing. She stated Ms Espinoza is doing well and her pain is manageable with medication. She is walking around with physical therapy. She denies any redness, drainage or major swelling. She confirmed her post op appointment on December 18 at 950. They had no questions or concerns. [facility] 30on 12-10-2023 30 Daily Case Managemen t Update Multidisciplinary rounds have been completed. Barriers to Discharge: Pending clinical course and improvement in clinical condition. POD 3 Left hip Arthroplasty. Neurology looking into causes of hyponatremia given meds (Na 132 today). Neurology discontinued Carbamazepine pt/ot=SNF. Discharge plan is [facility] when medically ready Diet: Dietary Orders (From admission, onward) Start Ordered 12/10/23 0749 Special Kitchen Request Once Comments: 3 powerade any flavor please and thank you :) 12/10/23 0748 12/09/23 1837 Special Kitchen Request Once Comments: chicken quesadilla and saha pie please 12/09/23 1836 12/09/23 1836 Special Kitchen Request Once 12/09/23 1836 12/09/23 1333 Special Kitchen Request Once Comments: entree salad with grilled chicken, tomato, boiled egg, red peppers, ranch dressing and saha pie. 12/09/23 1332 12/09/23 1037 Special Kitchen Request Once Comments: brown sugar oatmeal, cinnamon raisin toast, morrissey please 12/09/23 1036 12/08/23 1634 Special Kitchen Request Once Comments: 4 powerades of any flavor please 12/08/23 1633 12/07/23 1009 Regular Diet 240ml/tray Diet effective now Question Answer Comment Room Service? Yes Fluid restriction total / 24h: 240ml/tray 12/07/23 1009 Physician Expected Discharge Date: 12/10/2023 Discharge Delays: PT Six Click Score: 16 OT Six Click Score: 13 PT Recommendations: [facility] facility placement OT Recommendations: [facility] facility placement New Consults: Consult Orders (From admission, onward) Start Ordered 12/08/23 1028 Inpatient consult to Nephrology Once Specialty: Nephrology Provider: (Not yet assigned) Question Answer Comment [facility] NEPHROLOGY TEAM Reason for Consult? chronic hyponatremia Level of Consultation Consultation and Management 12/08/23 1028 12/06/23 1048 Inpatient consult to Internal Medicine Once Specialty: Internal Medicine Provider: (Not yet assigned) Question Answer Comment [facility] GENERAL INTERNAL MEDICINE Reason for Consult? post op evalHTN, CKD, GERD, PVD, HTN, HLD Level of Consultation Consultation and Management 12/06/23 1048 Therapy Orders (From admission, onward) Start Ordered 12/06/23 1348 PT eval and treat (Hip Arthroplasty) Until therapy completed Question: Reason for PT? Answer: Post muscular skeletal surgical procedure 12/06/23 1347 12/06/23 1348 OT eval and treat (Hip Arthroplasty) Until therapy completed Question: Reason for OT? Answer: Post muscular skeletal surgical procedure 12/06/23 1347 [facility] 30 The patient is Moderately Stable - Low risk of patient condition declining or worsening The patient's goals for the shift include dc back to home facility The clinical goals for the shift include successful PT session Over the shift, the patient did not make progress toward the following goals. Barriers to progression include Hip pain, tremors. Recommendations to address these barriers include pain medications, neurology consult, back to [facility]. Problem: Pain - Adult Goal: Verbalizes/displays adequate comfort level or baseline comfort level Outcome: Not Progressing Problem: Chronic Conditions and Co-morbidities Goal: Patient's chronic conditions and co-morbidity symptoms are monitored and maintained or improved Outcome: Not Progressing [facility] BASIC METABOLIC PANELon 11-14 Anion gap [Moles/Vol] 10 mmol/L Normal 7-20 [facility] Comment on above: Performed By: #### L [id number] #### [facility] ([facility]) [address] [place] [address] Calcium [Mass/Vol] 7.3 mg/dL Low 8.6-10.3 [facility] Comment on above: Performed By: #### L [id number] #### [facility] ([facility]) [address] [place] [address] Chloride [Moles/Vol] 101 mmol/L Normal 98-107 [facility] Comment on above: Performed By: #### L [id number] #### [facility] ([facility]) [address] [place] [address] CO2 [Moles/Vol] 24 mmol/L Normal 21-31 [facility] Comment on above: Performed By: #### L [id number] #### [facility] ([facility]) [address] [place] [address] Creatinine [Mass/Vol] 0.29 mg/dL Low 0.60-1.20 [facility] Comment on above: Performed By: #### L [id number] #### [facility] [address] [place] [address] GLOMERULAR FILTRATION RATE ML/MIN/1.73 SQ M.PREDICTED 116.4 mL/min/1.73m*2 Normal >60.0 [facility] Comment on above: Result Comment: [facility]???s estimated glomerular filtration rate (eGFR) will no longer include consideration of race in its calculation. The National Kidney Foundation???s eGFR Task Force developed new recommendations for the estimation of the glomerular filtration rate in the [place] They recommend immediate implementation of the new equation refit without the race variable in all laboratories because the calculation does not include race. In addition to not including race in the calculation and reporting, it included diversity in its development, and has acceptable performance characteristics and potential consequences that do not disproportionately affect any one group of individuals. Performed By: #### L [id number] #### [facility] ([facility]) [address] [place] [address] Glucose [Mass/Vol] 99 mg/dL Normal 70-100 [facility] Comment on above: Performed By: #### L [id number] #### [facility] ([facility]) [address] [place] [address] Potassium [Moles/Vol] 3.3 mmol/L Low 3.5-5.1 [facility] Comment on above: Performed By: #### L [id number] #### [facility] ([facility]) [address] [place] [address] Urea nitrogen [Mass/Vol] 6 mg/dL Low 7-25 [facility] Comment on above: Performed By: #### L [id number] #### [facility] ([facility]) [address] [place] [address] UREA NITROGEN/CREATININE (MASS RATIO) IN SER/PLAS 20.7 [facility] Comment on above: Performed By: #### L [id number] #### [facility] ([facility]) [address] [place] [address] CONSULTon 12-10-2023 CONSULT 15:15-SW requested 4:20pm transportation to [facility]. 16:20-Discharge order placed. AVS uploaded to [facility]. Transport set up with [facility] at 4:25PM. Transport form and packet completed and left beside the chart. Facility and floor RN aware of transport time. Phone number for report left with packet. 2246 completed. No further OTM needs at this time. [facility] NURSNOTEon 12-10-2023 NURSNOTE Report given to ms hilliard from [facility] in [place] @ [phone]. Notified ms hilliard that transport unable to take with them patient's wheelchair d/t it becoming a hazard in case of accident as no securement device for wheelchairs inside their mobile. [facility] SODIUMon 12-10-2023 Sodium [Moles/Vol] 132 mmol/L Low 136-145 [facility] Comment on above: Performed By: #### L [id number] #### [facility] ([facility]) [address] [place] [address] 30on 12-09-2023 30 Daily Case Managemen t Update Multidisciplinary rounds have been completed. Barriers to Discharge: Pending clinical course and improvement in clinical condition. Neurology consult to determine if the drugs that she is receiving for dyskinesia/tremor are contributing to the hyponatremia. Neurology discontinued Carbamazepine and started on Keppra. Discharge plan is [facility] when medically ready. Diet: Dietary Orders (From admission, onward) Start Ordered 12/09/23 1333 Special Kitchen Request Once Comments: entree salad with grilled chicken, tomato, boiled egg, red peppers, ranch dressing and saha pie. 12/09/23 1332 12/09/23 1037 Special Kitchen Request Once Comments: brown sugar oatmeal, cinnamon raisin toast, morrissey please 12/09/23 1036 12/08/23 1717 Special Kitchen Request Once Comments: chicken quesadilla and saha pie please 12/08/23 1716 12/08/23 1634 Special Kitchen Request Once Comments: 4 powerades of any flavor please 12/08/23 1633 12/07/23 1009 Regular Diet 240ml/tray Diet effective now Question Answer Comment Room Service? Yes Fluid restriction total / 24h: 240ml/tray 12/07/23 1009 Physician Expected Discharge Date: Discharge Delays: PT Six Click Score: 15 OT Six Click Score: 13 PT Recommendations: [facility] facility placement OT Recommendations: [facility] facility placement New Consults: Consult Orders (From admission, onward) Start Ordered 12/08/23 1028 Inpatient consult to Nephrology Once Specialty: Nephrology Provider: (Not yet assigned) Question Answer Comment [facility] NEPHROLOGY TEAM Reason for Consult? chronic hyponatremia Level of Consultation Consultation and Management 12/08/23 1028 12/08/23 1027 Inpatient consult to Neurology Once Specialty: Neurology Provider: (Not yet assigned) Question Answer Comment [facility] NEUROLOGY TEAM Reason for Consult? long-standing tremors without Dx and needs medication review. also has persistent hyponatremia that may be worsend by medications Level of Consultation Consultation and Management 12/08/23 1028 12/06/23 1048 Inpatient consult to Internal Medicine Once Specialty: Internal Medicine Provider: (Not yet assigned) Question Answer Comment [employer] GENERAL INTERNAL MEDICINE Reason for Consult? post op evalHTN, CKD, GERD, PVD, HTN, HLD Level of Consultation Consultation and Management 12/06/23 1048 Therapy Orders (From admission, onward) Start Ordered 12/06/23 1348 PT eval and treat (Hip Arthroplasty) Until therapy completed Question: Reason for PT? Answer: Post muscular skeletal surgical procedure 12/06/23 1347 12/06/23 1348 OT eval and treat (Hip Arthroplasty) Until therapy completed Question: Reason for OT? Answer: Post muscular skeletal surgical procedure 12/06/23 1347 Normal [facility] BASIC METABOLIC PANELon 08-2 Anion gap [Moles/Vol] 11 mmol/L Normal 7-20 [facility] Comment on above: Performed By: #### L [id number] ####[facility] (BEAKER)[address] [place] [address] Calcium [Mass/Vol] 7.6 mg/dL Low 8.6-10.3 [facility] Comment on above: Performed By: #### L [id number] ####[facility] (BEAKER)[address] [place] [address] Chloride [Moles/Vol] 99 mmol/L Normal 98-107 [facility] Comment on above: Performed By: #### L [id number] ####[facility] (BEAKER)[address] [place] [address] CO2 [Moles/Vol] 23 mmol/L Normal 21-31 [facility] Comment on above: Performed By: #### L [id number] ####[facility] (BEAKER)[address] [place] [address] Creatinine [Mass/Vol] 0.37 mg/dL Low 0.60-1.20 [facility] Comment on above: Performed By: #### L [id number] ####[facility] (BEAKER)[address] [place] [address] GLOMERULAR FILTRATION RATE ML/MIN/1.73 SQ M.PREDICTED 109.8 mL/min/1.73m*2 Normal >60.0 [facility] Comment on above: Result Comment: The [facility]???s estimated glomerular filtration rate (eGFR) will no longer include consideration of race in its calculation. The National Kidney Foundation???s eGFR Task Force developed new recommendations for the estimation of the glomerular filtration rate in the [place] They recommend immediate implementation of the new equation refit without the race variable in all laboratories because the calculation does not include race. In addition to not including race in the calculation and reporting, it included diversity in its development, and has acceptable performance characteristics and potential consequences that do not disproportionately affect any one group of individuals. Performed By: #### L [id number] ####[facility] (BEAKER)[address] [place] [address] Glucose [Mass/Vol] 104 mg/dL High 70-100 [facility] Comment on above: Performed By: #### L [id number] ####[facility] (BEAKER)[address] [place] [address] Potassium [Moles/Vol] 3.3 mmol/L Low 3.5-5.1 [facility] Comment on above: Performed By: #### L [id number] ####[facility] (BEAKER)[address] [place] [address] Sodium [Moles/Vol] 130 mmol/L Low 136-145 [facility] Comment on above: Performed By: #### L [id number] ####[facility] (JOSUE)[address] [place] [address] Urea nitrogen [Mass/Vol] 10 mg/dL Normal 7-25 [facility] Comment on above: Performed By: #### L [id number] ####[facility] (JOSUE)[address] [place] [address] UREA NITROGEN/CREATININE (MASS RATIO) IN SER/PLAS 27.0 Normal [facility] Comment on above: Performed By: #### L [id number] ####[facility] (OJSUE)[address] [place] [address] CONSULTon 12-09-2023 CONSULT Consults History Of Present Illness This is a 68-year-old woman who was admitted to the hospital for hip surgery. She was noted to be hyponatremic and neurology was consulted to determine if the drugs that she is receiving for dyskinesia/tremor are contributing to the hyponatremia. Patient is followed at the [facility] where she has been diagnosed with tardive dyskinesias and tremor. She has been treated with primidone, deutetrabenazine and clonazepam. Patient is also on carbamazepine. However she does not know why this medication was started. She does not give any definite history of seizures. Past Medical History She has a past medical history of Anemia, Anxiety, Arthritis, Chronic kidney disease, Closed fracture of neck of femur ([facility]) (06/16/2020), COVID-19 (07/04/2023), Dysphagia, Epilepsy ([facility]), GERD (gastroesophageal reflux disease), Hyperlipidemia, Hypertension, Major depressive disorder, Osteoarthritis, Peripheral vascular disease ([facility]), Rectal prolapse, Rhabdomyolysis (07/04/2023), Sepsis ([facility]) (07/04/2023), Tardive dyskinesia, and Tremor. Surgical History She has a past surgical history that includes Shoulder surgery (Right) and Rectal prolapse repair. Social History She reports that she has quit smoking. Her smoking use included cigarettes. She has never used smokeless tobacco. She reports that she does not drink alcohol. No history on file for drug use. Allergies Erythromycin, Azithromycin, Erythromycin base, and Clarithromycin Medications Medications Prior to Admission Medication Sig Dispense Refill Last Dose atorvastatin (Lipitor) 40 mg tablet Take 1 tablet by mouth in the evening. 12/05/2023 Austedo 12 mg tablet Take 12 mg by mouth in the morning and at bedtime. 12/05/2023 busPIRone (Buspar) 10 mg tablet Take 15 mg by mouth in the morning and at bedtime. 12/05/2023 calcium carbonate 600 mg calcium (1,500 mg) tablet Take 600 mg by mouth in the morning. 12/05/2023 carBAMazepine (TEGretol) 200 mg tablet Take 200 mg by mouth three times daily. 12/05/2023 celecoxib (CeleBREX) 100 mg capsule Take 100 mg by mouth in the morning and at bedtime. Past Month clonazePAM (KlonoPIN) 0.5 mg tablet Take 1-2 tablets by mouth at bedtime. 12/06/2023 cyclobenzaprine (Flexeril) 10 mg tablet Take 10 mg by mouth if needed in the morning, at noon, and at bedtime for muscle spasms. 12/06/2023 ferrous sulfate 325 (65 Fe) MG tablet Take 325 mg by mouth with breakfast. 12/05/2023 fluticasone (Flonase) 50 mcg/actuation nasal spray 2 sprays by nasal (alternating) route 1 (one) time each day. 12/06/2023 gabapentin (Neurontin) 300 mg capsule Take 300 mg by mouth in the morning and at bedtime. 12/05/2023 gabapentin (Neurontin) 600 mg tablet at bedtime. 12/05/2023 levothyroxine (Tirosint) 75 mcg capsule Take 75 mcg by mouth in the morning. 12/06/2023 loperamide (Imodium A-D) 2 mg tablet Take 2 mg by mouth every 6 (six) hours if needed for diarrhea. 12/05/2023 menthol (Biofreeze, menthol,) 4 % gel Apply 1 Application topically every 8 (eight) hours if needed. 12/05/2023 mirtazapine (Remeron) 15 mg tablet Take 15 mg by mouth at bedtime. 12/05/2023 ondansetron (Zofran) 4 mg tablet Take 4 mg by mouth every 12 (twelve) hours if needed for nausea or vomiting. 12/05/2023 pantoprazole (ProtoNix) 40 mg EC tablet Take 40 mg by mouth before breakfast. 12/05/2023 primidone (Mysoline) 50 mg tablet Take 50 mg by mouth in the morning and at bedtime. 12/05/2023 sodium chloride 1,000 mg tablet Take 1 g by mouth in the morning. 12/05/2023 traZODone (Desyrel) 100 mg tablet Take 100 mg by mouth at bedtime. 12/05/2023 alendronate (Fosamax) 70 mg tablet Take 1 tablet by mouth 1 (one) time per week. Past Week aspirin 81 mg chewable tablet Chew 1 tablet (81 mg) in the morning. 30 tablet 11 Past Week atorvastatin (Lipitor) 40 mg tablet Take 1 tablet (40 mg) by mouth in the morning. 30 tablet 0 metoprolol succinate XL (Toprol-XL) 25 mg 24 hr tablet Take 1 tablet (25 mg) by mouth in the morning. Do not crush or chew. 30 tablet 0 Review of Systems Physical Exam Presently she is awake and alert, she comprehends all commands, she is not aphasic or dysarthric. There is no ptosis extraocular movements are full pupils are equal and reacting. There is no facial weakness. She moves the arms and right leg equally. Left leg was not tested as she has recently had hip surgery. Last Recorded Vitals Blood pressure 112/59, pulse 70, temperature 37 ???C (98.6 ???F), resp. rate 17, height 1.6 m (5' 3 ), weight 51 kg (112 lb 7 oz), SpO2 96 %. Relevant Results Assessment/Plan This is a 68-year-old woman who has history of tardive dyskinesias and tremor and is followed at the [facility]. Medications that she is on include deutetrabenazine, clonazepam and primidone. She is also on carbamazepine although the indications for this medicine are not clear. Of all the neurological medicatio (more content not included)... Normal [facility] CORTISOLon 12-09-2023 CORTISOL (UG/DL) IN SER/PLAS 21.8 ug/dL Normal - [facility] Comment on above: Performed By: #### L [id number] ####[facility] (BEAKER)[address] [place] [address] OSMOLALITYon 12-09-2023 OSMOLALITY MEASURED 274 mOsm/kg Low 275-295 [facility] Comment on above: Result Comment: Test Performed by [facility] [address] [place] [address] - Released 12/09/2023 18:46 Performed By: #### L [id number] ####[facility] [id number] [place] [address] SODIUMon 12-09-2023 Sodium [Moles/Vol] 129 mmol/L Low 136-145 [facility] Comment on above: Performed By: #### L [id number] #### [facility] (BEAKER) [address] [place] [address] 30on 12-08-2023 30 The patient is Moderately Stable - Low risk of patient condition declining or worsening The patient's goals for the shift include comfort The clinical goals for the shift include safety Normal [facility] BASIC METABOLIC PANELon 11-14 Anion gap [Moles/Vol] 15 mmol/L Normal 7-20 [facility] Comment on above: Performed By: #### L [id number] #### [facility] (BEAKER) [address] [place] [address] Calcium [Mass/Vol] 8.0 mg/dL Low 8.6-10.3 [facility] Comment on above: Performed By: #### L [id number] #### [facility] (BEAKER) [address] [place] [address] Chloride [Moles/Vol] 93 mmol/L Low 98-107 [facility] Comment on above: Performed By: #### L [id number] #### [facility] (BEAKER) [address] [place] [address] CO2 [Moles/Vol] 23 mmol/L Normal 21-31 [facility] Comment on above: Performed By: #### L [id number] #### [facility] (BEAKER) [address] [place] [address] Creatinine [Mass/Vol] 0.39 mg/dL Low 0.60-1.20 [facility] Comment on above: Performed By: #### L [id number] #### [facility] ([facility]) [address] [place] [address] GLOMERULAR FILTRATION RATE ML/MIN/1.73 SQ M.PREDICTED 108.4 mL/min/1.73m*2 Normal >60.0 [facility] Comment on above: Result Comment: The [facility]???s estimated glomerular filtration rate (eGFR) will no longer include consideration of race in its calculation. The National Kidney Foundation???s eGFR Task Force developed new recommendations for the estimation of the glomerular filtration rate in the [place] They recommend immediate implementation of the new equation refit without the race variable in all laboratories because the calculation does not include race. In addition to not including race in the calculation and reporting, it included diversity in its development, and has acceptable performance characteristics and potential consequences that do not disproportionately affect any one group of individuals. Performed By: #### L [id number] #### [facility] ([facility]) [address] [place] [address] Glucose [Mass/Vol] 103 mg/dL High 70-100 [facility] Comment on above: Performed By: #### L [id number] #### [facility] ([facility]) [address] [place] [address] Potassium [Moles/Vol] 3.8 mmol/L Normal 3.5-5.1 [facility] Comment on above: Performed By: #### L [id number] #### [facility] ([facility]) [address] [place] [address] Sodium [Moles/Vol] 127 mmol/L Low 136-145 [facility] Comment on above: Performed By: #### L [id number] #### [facility] ([facility]) [address] [place] [address] Urea nitrogen [Mass/Vol] 17 mg/dL Normal 7-25 [facility] Comment on above: Performed By: #### L [id number] #### [facility] [address] [place] [address] UREA NITROGEN/CREATININE (MASS RATIO) IN SER/PLAS 43.6 Normal [facility] Comment on above: Performed By: #### L [id number] #### [facility] [address] [facility] [facility] [place] [address] OSMOLALITY, URINEon 12-08-19 24 OSMOLALITY, URINE 546 mOsm/kg Normal 80-1300 [facility] Comment on above: Result Comment: Test Performed by [facility] [address] [place] [address] - Released 12/09/2023 14:01 Performed By: #### L [id number] #### [facility] [address] [place] [address] SODIUMon 12-08-2023 Sodium [Moles/Vol] 128 mmol/L Low 136-145 [facility] Comment on above: Performed By: #### L [id number] #### [facility] ([facility]) [address] [place] [address] SODIUM, URINE, RANDOMon 11-14 Sodium (U) [Moles/Vol] 13 mmol/L Normal [facility] Comment on above: Performed By: #### L [id number] ####[facility] ([facility])[address] [place] [address] TSH3 REFLEX TO FT4on 024 THYROTROPIN (MIU/L) IN SER/PLAS BY DETECTION LIMIT <= 0.05 MIU/L 1.56 mIU/L Normal 0.34-5.60 [facility] Comment on above: Performed By: #### L [id number] ####[facility] [place] [address] BASIC METABOLIC PANELon 11-14 Anion gap [Moles/Vol] 13 mmol/L Normal 7-20 [facility] Comment on above: Performed By: #### L [id number] #### [facility] [address] [place] [address] Calcium [Mass/Vol] 8.6 mg/dL Normal 8.6-10.3 [facility] Comment on above: Performed By: #### L [id number] #### [facility] ([facility]) [address] [place] [address] Chloride [Moles/Vol] 90 mmol/L Low 98-107 [facility] Comment on above: Performed By: #### L [id number] #### [facility] ([facility]) [address] [place] [address] CO2 [Moles/Vol] 26 mmol/L Normal 21-31 [facility] Comment on above: Performed By: #### L [id number] #### [facility] ([facility]) [address] [place] [address] Creatinine [Mass/Vol] 0.45 mg/dL Low 0.60-1.20 [facility] Comment on above: Performed By: #### L [id number] #### [facility] ([facility]) [address] [place] [address] GLOMERULAR FILTRATION RATE ML/MIN/1.73 SQ M.PREDICTED 104.7 mL/min/1.73m*2 Normal >60.0 [facility] Comment on above: Result Comment: The [facility]???s estimated glomerular filtration rate (eGFR) will no longer include consideration of race in its calculation. The National Kidney Foundation???s eGFR Task Force developed new recommendations for the estimation of the glomerular filtration rate in the [place] They recommend immediate implementation of the new equation refit without the race variable in all laboratories because the calculation does not include race. In addition to not including race in the calculation and reporting, it included diversity in its development, and has acceptable performance characteristics and potential consequences that do not disproportionately affect any one group of individuals. Performed By: #### L [id number] #### [facility] ([facility] [address] [place] [address] Glucose [Mass/Vol] 118 mg/dL High 70-100 [facility] Comment on above: Performed By: #### L [id number] #### [facility] ([facility]) [address] [place] [address] Potassium [Moles/Vol] 4.2 mmol/L Normal 3.5-5.1 [facility] Comment on above: Performed By: #### L [id number] #### [facility] ([facility]) [address] [place] [address] Sodium [Moles/Vol] 125 mmol/L Low 136-145 [facility] Comment on above: Performed By: #### L [id number] #### [facility] ([facility]) [address] [place] [address] Urea nitrogen [Mass/Vol] 11 mg/dL Normal 7-25 [facility] Comment on above: Performed By: #### L [id number] #### [facility] ([facility]) [address] [place] [address] UREA NITROGEN/CREATININE (MASS RATIO) IN SER/PLAS 24.4 Normal [facility] Comment on above: Performed By: #### L [id number] #### [facility] ([facility]) [address] [place] [address] BLOOD CULTUREon 12-07-2023 Bacteria identified Cx Nom (Bld) No growth at 5 days Normal [facility] Comment on above: Performed By: #### L [id number] ####[facility] ([facility])[address] [place] [address] Order Comment: From a different site than #1. CBCon 12-07-2023 Erythrocyte distribution width (RBC) [Ratio] 14.0 % Normal 11.5-15.0 [facility] Comment on above: Performed By: #### L [id number] #### [facility] ([facility]) [address] [place] [address] ERYTHROCYTE MEAN CORPUSCULAR HEMOGLOBIN CONCENTRATION (G/DL) BY AUTOMATED 32.2 g/dL Normal 32.0-35.0 [facility] Comment on above: Performed By: #### L [id number] #### [facility] ([facility]) [address] [place] [address] Hematocrit (Bld) [Volume fraction] 37.6 % Normal 36.0-48.0 [facility] Comment on above: Performed By: #### L [id number] #### [facility] ([facility]) [address] [place] [address] Hemoglobin (Bld) [Mass/Vol] 12.1 g/dL Normal 12.0-15.0 [facility] Comment on above: Performed By: #### L [id number] #### [facility] ([facility]) [address] [place] [address] MCH (RBC) [Entitic mass] 28.5 pg Normal 27.0-33.0 [facility] Comment on above: Performed By: #### L [id number] #### [facility] ([facility]) [address] [place] [address] MCV (RBC) [Entitic vol] 88.7 fL Normal 82.0-98.0 [facility] Comment on above: Performed By: #### L [id number] #### [facility] ([facility]) [address] [place] [address] PLATELETS (10*3/UL) IN BLOOD AUTOMATED COUNT 651 10*3/uL High 150-400 [facility] Comment on above: Performed By: #### L [id number] #### [facility] ([facility]) [address] [place] [address] RBC (Bld) [#/Vol] 4.24 10*6/uL Normal 3.80-5.00 [facility] Comment on above: Performed By: #### L [id number] #### [facility] ([facility]) [address] [place] [address] WBC (Bld) [#/Vol] 20.49 10*3/uL High 4.00-10.60 [facility] Comment on above: Performed By: #### L [id number] #### [facility] (BEAKER) [address] [place] [address] PROCALCITONIN TESTon 024 PROCALCITONIN IN BLOOD 0.07 ng/mL Normal 0.00-0.10 [facility] Comment on above: Result Comment: Susp ected Lower Respiratory Tract Infection: 0.1-0.25 ng/mL - Low likelihood for bacterial infection;Antibiotics discouraged.* >0.25 ng/mL - Increased likelihood bacterial infection;Antibiotics encouraged. Suspected Sepsis: Strongly consider initiating antibiotics in all unstable patients. 0.1-0.5 ng/mL - Low likelihood for sepsis; Antibiotics discouraged.* >0.5 ng/mL - Increased likelihood sepsis; Antibiotics encouraged. >2.0 ng/mL - High risk of sepsis/septic shock; Antibiotics strongly encouraged. *Recommend retesting PCT within 6-12 hours if clinically indicated and initial PCT<0.5ng/mL Performed By: #### L [id number] #### [facility] (BEAKER) [address] [place] [address] ANESon 12-06-2023 ANES --- Attestation signed by Jeffrey Summers MD at 12/06/2023 6:31 PM I reviewed and agree with the above note. I spoke to and evaluated the patient myself and they are willing to proceed as planned. Jeffrey Summers MD Patient: Melanie Espinoza Procedure Information Date/Time: 12/06/23729 Procedure: LEFT HIP CONVERSION TO TOTAL HIP ARTHROPLASTY ANTERIOR APPROACH (Left: Hip) - C-ARM, X3 SCREWS IN, BIOMET, *PT FROM ECF, DO NOT MOVE FROM 7:30am*, REP NOTIFIED 11/24 Location: [facility] OPERATING ROOM 02 / [facility] Operating Room Surgeons: Ernesto Plaza MD Relevant Problems Cardio (+) Atherosclerosis of [place] coronary artery of [place] heart without angina pectoris (+) Primary hypertension Endo (+) Acquired hypothyroidism GI (+) GERD (gastroesophageal reflux disease) (Well controlled, no sx this am) - Hgb 13.5 - No prior issues with anesthesia - Ambulates via wheelchair secondary to her hip - Choreiform dyskinetic movements of uncertain etiology, on Austedo, clonazepam, and Tegretol Coronary Cath 09/24/2023 CORONARY ARTERIES: Left main coronary artery: This arises from the superior portion of the left coronary cusp and bifurcates into the left anterior descending and left circumflex coronary arteries. It is free of significant stenosis Left anterior descending coronary artery: This shows calcific plaque and sequential 30 to 40% stenoses in the midportion of the vessel. Left circumflex coronary artery: This shows plaque disease with no high-grade stenoses. Right coronary artery: This is a dominant vessel arising from right coronary cusp and giving rise to the posterior descending and posterolateral branches. It shows a 30% proximal stenosis. The posterior descending branch shows sequential 30% stenoses. Clinical information reviewed: Tobacco Allergies Meds Med Hx Surg Hx Fam Hx Soc Hx Physical Exam Airway Mallampati: II TM distance: >3 FB Neck ROM: full Cardiovascular - normal exam Dental - normal exam Pulmonary - normal exam Abdominal Other findings: Tremors in mouth and R>L UE Anesthesia Plan ASA 2 general The patient is not a current smoker. Patient did not smoke on day of procedure. intravenous induction Anesthetic plan and risks discussed with patient. Use of blood products discussed with patient who consented to blood products. Plan discussed with attending. Additional Equipment Requests Prior to Admission medications Medication Sig Start Date End Date Taking? Authorizing Provider atorvastatin (Lipitor) 40 mg tablet Take 1 tablet by mouth in the evening. Yes Historical Provider, Austedo 12 mg tablet Take 12 mg by mouth in the morning and at bedtime. 03/29/23 Yes Historical Provider, busPIRone (Buspar) 10 mg tablet Take 15 mg by mouth in the morning and at bedtime. Yes Historical Provider, calcium carbonate 600 mg calcium (1,500 mg) tablet Take 600 mg by mouth in the morning. Yes Historical Provider, carBAMazepine (TEGretol) 200 mg tablet Take 200 mg by mouth three times daily. Yes Historical Provider, celecoxib (CeleBREX) 100 mg capsule Take 100 mg by mouth in the morning and at bedtime. Yes Historical Provider, clonazePAM (KlonoPIN) 0.5 mg tablet Take 1-2 tablets by mouth at bedtime. Yes Historical Provider, cyclobenzaprine (Flexeril) 10 mg tablet Take 10 mg by mouth if needed in the morning, at noon, and at bedtime for muscle spasms. 12/23/22 Yes Historical Provider, ferrous sulfate 325 (65 Fe) MG tablet Take 325 mg by mouth with breakfast. 09/13/21 Yes Historical Provider, fluticasone (Flonase) 50 mcg/actuation nasal spray 2 sprays by nasal (alternating) route 1 (one) time each day. 03/19/22 Yes Historical Provider, gabapentin (Neurontin) 300 mg capsule Take 300 mg by mouth in the morning and at bedtime. 09/21/20 Yes Historical Provider, gabapentin (Neurontin) 600 mg tablet at bedtime. 02/17/23 Yes Historical Provider, levothyroxine (Tirosint) 75 mcg capsule Take 75 mcg by mouth in the morning. Yes Historical Provider, loperamide (Imodium A-D) 2 mg tablet Take 2 mg by mouth every 6 (six) hours if needed for diarrhea. Yes Historical Provider, menthol (Biofreeze, menthol,) 4 % gel Apply 1 Application topically every 8 (eight) hours if needed. Yes Historical Provider, mirtazapine (Remeron) 15 mg tablet Take 15 mg by mouth at bedtime. Yes Historical Provider, ondansetron (Zofran) 4 mg tablet Take 4 mg by mouth every 12 (twelve) hours if needed for nausea or vomiting. 02/02/23 Yes Historical Provider, pantoprazole (ProtoNix) 40 mg EC tablet Take 40 mg by mouth before breakfast. Yes Historical Provider, primidone (Mysoline) 50 mg tablet Take 50 mg by mouth in the morning a (more content not included)... [facility] CONSULTon 12-06-2023 CONSULT --- Attestation signed by Gurpreet Man MD at 12/07/2023 11:26 AM GC: I saw this patient. I personally personally the critical/denton portions that determines the level of service. I was directly involved in the management and treatment plan of the patient. I reviewed Quinn Pascual MD's note and agree. Reviewed and approved by GURPREET MAN on 12/07/23 at 11:26 AM. [facility] Inpatient Consult Note Patient - Mel[facility] Espinoza Age - 68 [facility] 1955 [id number] Date of Admission - 12/06/2023 5:42 AM Reason for the consult Postoperative management History of Present Illness Melanie Espinoza is a 68 y.o. female patient with PMH of GERD, anemia, CAD, hypothyroidism, major depressive disorder, osteopenia who presented to the hospital for elective hip arthroplasty due to avascular necrosis PMH: Patient has a past medical history of Anemia, Anxiety, Arthritis, Chronic kidney disease, Dysphagia, Epilepsy (CMS/HCC), GERD (gastroesophageal reflux disease), Hyperlipidemia, Hypertension, Major depressive disorder, Osteoarthritis, Peripheral vascular disease (CMS/HCC), and Rectal prolapse. PSH: Patient has a past surgical history that includes Shoulder surgery and Rectal prolapse repair. SH: Patient reports that she has quit smoking. Her smoking use included cigarettes. She has never used smokeless tobacco. She reports that she does not drink alcohol. Alc/Tobacco/Drug: Patient reports no history of alcohol use. reports that she has quit smoking. Her smoking use included cigarettes. She has never used smokeless tobacco. has no history on file for drug use. Medications: Patient Current Facility-Administered Medications: acetaminophen (Tylenol) tablet 1,000 mg, 1,000 mg, oral, q8h, Cm Lyon MD, 1,000 mg at 12/06/23 1433 aspirin tablet 325 mg, 325 mg, oral, BID, Cm Lyon MD, 325 mg at 12/06/23 1433 ceFAZolin in dextrose (iso-os) (Ancef) IVPB 2 g, 2 g, intravenous, q8h, Cm Lyon MD docusate sodium (Colace) capsule 100 mg, 100 mg, oral, BID, Cm Lyon MD, 100 mg at 12/06/23 1433 HYDROmorphone (Dilaudid) injection 0.2 mg, 0.2 mg, intravenous, q3h PRN, Cm Lyon MD lactated Ringer's infusion, 30 mL/hr, intravenous, Continuous, Venancio Albright MD, 100 mL at 12/06/23 1018 melatonin tablet 3 mg, 3 mg, oral, Nightly PRN, Cm Lyon MD naloxone (Narcan) injection 0.2 mg, 0.2 mg, intravenous, PRN OR naloxone (Narcan) injection 0.2 mg, 0.2 mg, intramuscular, PRN OR naloxone (Narcan) injection 0.2 mg, 0.2 mg, subcutaneous, PRN, Cm Lyon MD ondansetron ODT (Zofran-ODT) disintegrating tablet 4 mg, 4 mg, oral, q8h PRN OR ondansetron HCl (PF) (Zofran) injection 4 mg, 4 mg, intravenous, q6h PRN, Cm Lyon MD oxyCODONE (Roxicodone) immediate release split tablet 2.5 mg, 2.5 mg, oral, q6h PRN, 2.5 mg at 12/06/23 1321 OR oxyCODONE (Roxicodone) immediate release tablet 5 mg, 5 mg, oral, q6h PRN, Cm Lyon MD Oxygen Therapy, , inhalation, Continuous, Cm Lyon MD, Given at 12/06/23 1400 polyethylene glycol (Glycolax) packet 17 g, 17 g, oral, Daily, Cm Lyon MD, 17 g at 12/06/23 1433 Allergies: Patient Erythromycin, Azithromycin, Erythromycin base, and Clarithromycin Family history: Patient family history includes Heart attack in her father; Hypertension in her mother; Stroke in her mother. Review of Systems: Review of Systems Physical Exam Ht Readings from Last 1 Encounters: 12/06/23 1.6 m (5' 3 ) Wt Readings from Last 1 Encounters: 12/06/23 45.5 kg (100 lb 5 oz) height is 1.6 m (5' 3 ) and weight is 45.5 kg (100 lb 5 oz). Her oral temperature is 36.4 ???C (97.5 ???F). Her blood pressure is 124/82 and her pulse is 62. Her respiration is 14 and oxygen saturation is 97%. Intake/Output Summary (Last 24 hours) at 12/06/2023 1448 Last data filed at 12/06/2023 1112 Gross per 24 hour Intake 1336.5 ml Output 1250 ml Net 86.5 ml Respiratory Source: @RESPSOURCE@ Admission weight: 41.5 kg (91 lb 7.9 oz) Physical Examination: General: Well-appearing, in no acute distress Head: Normocephalic, atraumatic. HEENT: No scleral icterus. Oral mucosa is moist without erythema, lesions, or ulcerations. Pulm: Clear to auscultation. No audible wheezing, rales, or rhonchi. Breathing is non-labored. Cardiac: Regular rate, regular rhythm. Normal S1/S2. No appreciable murmurs, gallops, or rubs. GI: Abdomen is soft, non-distended, non-tender. Ext: No peripheral edema. Neuro: Alert and oriented x 3. Labs/Imaging Labs: ABG: CBC: Coagulation: Metabolic Panel: No lab exists for component: SODIUM , LABGLOM Liver Panel: No lab exists for component: TOTALPROTEI , LABBILIRUBIN , TOTALBILIRUB , BILIRUB , ESTEFANÍA (more content not included)... [facility] HPon 12-06-2023 HP H&P reviewed. The patient was examined and there are no changes to the H&P. Discussed with the patient the risks and benefits of surgery, explained to the patient the complexity due to the significant shortening and bone loss of the pelvis and the shortening or about 2 inches, as well as the need to remove the screws discussed the surgical and post op plan all questions answered and consents signed. [facility] OPNOTEon 12-06-2023 OPNOTE LEFT HIP CONVERSION TO TOTAL HIP ARTHROPLASTY ANTERIOR APPROACH (L) Operative Note Date: 12/06/2023 Location: [facility] OR Name: Melanie EspinozaDOB: 1955, Diagnosis Pre-op Diagnosis * AVN (avascular necrosis of bone) (CMS/HCC) [M87.00] * Primary osteoarthritis of left hip [M16.12] Post-op Diagnosis * AVN (avascular necrosis of bone) (CMS/HCC) [M87.00] * Primary osteoarthritis of left hip [M16.12] Procedures * LEFT HIP CONVERSION TO TOTAL HIP ARTHROPLASTY ANTERIOR APPROACH Surgeons Primary: Ernesto Plaza MD Resident - Assisting: Olga Mcdermott DO; Cm Lyon MD Procedure Summary Anesthesia: General ASA: II Estimated Blood Loss: 200 mL Drains: [REMOVED] Urethral Catheter Non-latex 16 Fr. (Removed) Specimens ID Source Type Tests Collected By Collected At Frozen? Priority Lab ID 1 Hip Tissue TISSUE CULTURE AND ANAEROBIC CULTURE Ernesto Plaza MD 12/06/23 0904 Routine [id number], [id number] Description: #1. LEFT HIP TISSUE Implants Type Name Action Serial No. STEINMANN PIN, PLAIN Used, Not Implanted Total Joint G7 ACETABULAR SYSTEM SHELL Implanted Screw SCREW,BONE,6.6A68CWYR-S AP - [id number] Implanted Screw SCREW,BONE,SELF-TAP,6.5 X35MM - [id number] Implanted Screw SCREW,BONE,SELF-TAP,6.5 X30MM - [id number] Implanted Screw SCREW,BONE,SELF-TAP,6.5 X20MM - [id number] Implanted Total Joint LINER,G7,E1,40,F - [id number] Implanted Total Joint STEM,REDUCE,DISTAL,STND ,9.0 - [id number] Implanted Total Joint HEAD,BIOLOX-D MOD,40MM - [id number] Implanted Total Joint SLEEVE,BIOLOX OPTION TYPE 1,-6 - [id number] Implanted Staff: [employer] Van Truck Driver: Nikia Reddy RN Scrub Person: Cordelia Brand CST [employer] Operator: Bethel Robles CSA Indications: Melanie Espinoza is an 68 y.o. female who is having surgery for AVN (avascular necrosis of bone) ([facility]) [M87.00]Primary osteoarthritis of left hip [M16.12]. who is having surgery for Left hip osteoarthritis , femoral head collapse [M16.12]. patient with a longstanding history of Left hip pain and deformity, patient with history of left femoral fracture and left hip pinning 2 years ago, patient developed AVN with femoral head collapse and protrusion of the Screws in to the acetabulum with significant deformity and shortening, patient with severe pain and inability to walk , she has been wheelchair bound. X-ray showed advanced degenerative joint disease Left hip with [id number] arthritis of the Left hip with femoral head collapse and significant shortening as well as retained cannulatted screws into the femoral neck.. Recommendations were given for Left hip conversion into Left total hip arthroplasty through a direct anterior approach. All the risks and benefits of surgery including risk of infection, bleeding, injury to nerves and vessels, dislocation, ligament discrepancy, persistence of pain, stiffness, blood clots related to the lungs, medical complications and the need for revision surgery were all discussed. Discussed increased risks due to the severe deformity and the shortening Patient understood the recommendations of the possible risks and elected to proceed with surgery. Informed consent was obtained. Preoperative clearances were obtained. Procedure Details: Patient was identified in preoperative holding area. Her Left lower extremity was examined and marked. All questions were answered consents were signed. Patient was then taken back to the OR where she received general anesthesia. Patient was positioned in the supine position on the operating table. A charles Caheter was inserted. Her Left lower extremity was prepped and draped in the standard sterile fashion. A complete surgical timeout was performed in the room my presence I identified the patient, the side of the surgery as well as the procedure to be done. Preoperative antibiotics were given per protocol. We started by marking the incision over the anterolateral aspect of the Left hip hip extending 2 cm distal and lateral to the anterior superior spine over the tensor fascia kaitlin muscle. The position of the incision was checked on the x-rays. We also identified the place of the screw heads, we started by making a small more posterior incision over the screws, guide wires were passed Into the cannulation of the screws and the cannulated screw transporter driver was inserted and the screws were removed. At this point attention was directed towards the anterior lateral incision. Incision was made, dissection continued deeper all the way down to the deep fascia over the TFL muscle. The deep fascia was opened sharply, the medial border fascia was dissected from the underlying tensor fascia kaitlin muscle. The TFL was retracted laterally and the rectus femoris muscle was retracted medially. The deeper layer of the deep fascia was opened and the ascending branches of the lateral circumflex femoral vessels were cauterized. A superior Hohmann retractor was applied superior to th (more content not included)... Normal [facility] POCT GLUCOSE METER UNSOLICIT ED RESULTSon 12-06-2023 Glucose [Mass/Vol] 93 mg/dL Normal 70-105 [facility] Comment on above: Order Comment: Waive d Testing in the ED is performed under the ED CLIA certificate #[id number]. Result Comment: sheryl velez Performed By: #### L [id number] #### [facility] ([facility]) [address] [place] [address] TISSUE CULTUREon 12-06-2023 Bacteria identified Cx Nom (Unsp spec) No growth at 5 days Normal [facility] Comment on above: Order Comment: Pre-o p diagnosis:AVN (avascular necrosis of bone) ([facility]) [M87.00]Primary osteoarthritis of left hip [M16.12] Performed By: #### L [id number] ####[facility] ([facility])[address] [place] [address] GRAM STAIN RESULT Normal [facility] Comment on above: Order Comment: Pre-o p diagnosis:AVN (avascular necrosis of bone) ([facility]) [M87.00]Primary osteoarthritis of left hip [M16.12] Result Comment: Few Polymorphonuclear leukocytes No organisms seen Performed By: #### L [id number] ####[facility] ([facility])[address] [place] [address] 36on 11-28-2023 36 Spoke with the nurse caring for Ms Espinoza at [place]. Informed her that Dr Plaza would like a letter from PCP stating she can stop Aspirin 1 week prior to surgery. The nurse stated she will message Dr Polo and fax over the order to [phone]. Updated DEBRA Olivier and Dr Plaza with this information. Normal [facility] APTTon 11-28-2023 ACTIVATED PARTIAL THROMBOPLASTIN TIME IN PPP BY COAGULATION ASSAY 27.9 Seconds Normal 25.0-35.0 [facility] Comment on above: Result Comment: Clin ical significance of the APTT is questionable in the presence of heparin. Performed By: #### L [id number] #### [facility] ([facility]) [address] [place] [address] BASIC METABOLIC PANELon 11-13 Anion gap [Moles/Vol] 11 mmol/L Normal 7-20 [facility] Comment on above: Performed By: #### L [id number] #### [facility] ([facility]) [address] [place] [address] Calcium [Mass/Vol] 8.9 mg/dL Normal 8.6-10.3 [facility] Comment on above: Performed By: #### L [id number] #### [facility] ([facility]) [address] [place] [address] Chloride [Moles/Vol] 95 mmol/L Low 98-107 [facility] Comment on above: Performed By: #### L [id number] #### [facility] ([facility]) [address] [place] [address] CO2 [Moles/Vol] 27 mmol/L Normal 21-31 [facility] Comment on above: Performed By: #### L [id number] #### [facility] ([facility]) [address] [place] [address] Creatinine [Mass/Vol] 0.43 mg/dL Low 0.60-1.20 [facility] Comment on above: Performed By: #### L [id number] #### [facility] ([facility]) [address] [place] [address] GLOMERULAR FILTRATION RATE ML/MIN/1.73 SQ M.PREDICTED 105.9 mL/min/1.73m*2 Normal >60.0 [facility] Comment on above: Result Comment: The [facility]???s estimated glomerular filtration rate (eGFR) will no longer include consideration of race in its calculation. The National Kid[employer] Foundation???s eGFR Task Force developed new recommendations for the estimation of the glomerular filtration rate in the [place] They recommend immediate implementation of the new equation refit without the race variable in all laboratories because the calculation does not include race. In addition to not including race in the calculation and reporting, it included diversity in its development, and has acceptable performance characteristics and potential consequences that do not disproportionately affect any one group of individuals. Performed By: #### L [id number] #### [facility] ([facility]) [address] [place] [address] Glucose [Mass/Vol] 91 mg/dL Normal 70-100 [facility] Comment on above: Performed By: #### L [id number] #### [facility] ([facility]) [address] [place] [address] Potassium [Moles/Vol] 3.9 mmol/L Normal 3.5-5.1 [facility] Comment on above: Performed By: #### L [id number] #### [facility] ([facility]) [address] [place] [address] Sodium [Moles/Vol] 129 mmol/L Low 136-145 [facility] Comment on above: Performed By: #### L [id number] #### [facility] [address] [place] [address] Urea nitrogen [Mass/Vol] 9 mg/dL Normal 7-25 [facility] Comment on above: Performed By: #### L [id number] #### [facility] ([facility]) [address] [facility] [place] [address] UREA NITROGEN/CREATININE (MASS RATIO) IN SER/PLAS 20.9 Normal [facility] Comment on above: Performed By: #### L [id number] #### [facility] ([facility]) [address] [place] [address] CBC WITH AUTO DIFFERENTIALon 11-28-2023 Basophils (Bld) [#/Vol] 0.06 10*3/uL Normal 0.00-0.20 [facility] Comment on above: Performed By: #### L [id number] #### [facility] ([facility] [address] [place] [address] Basophils/100 WBC (Bld) 0.6 % Normal 0.0-1.0 [facility] Comment on above: Performed By: #### L [id number] #### [facility] ([facility]) [address] [address] Eosinophils (Bld) [#/Vol] 0.40 10*3/uL Normal 0.00-0.50 [facility] Comment on above: Performed By: #### L [id number] #### [facility] [address] [place] [address] Eosinophils/100 WBC (Bld) 4.2 % Normal 0.0-6.0 [facility] Comment on above: Performed By: #### L [id number] #### [facility] ([facility] [address] [place] [address] Erythrocyte distribution width (RBC) [Ratio] 14.9 % Normal 11.5-15.0 [facility] Comment on above: Performed By: #### L [id number] #### [facility] ([facility]) [address] [place] [address] ERYTHROCYTE MEAN CORPUSCULAR HEMOGLOBIN CONCENTRATION (G/DL) BY AUTOMATED 33.3 g/dL Normal 32.0-35.0 [facility] Comment on above: Performed By: #### L [id number] #### [facility] ([facility]) [address] [place] [address] Hematocrit (Bld) [Volume fraction] 40.5 % Normal 36.0-48.0 [facility] Comment on above: Performed By: #### L [id number] #### [facility] ([facility]) [address] [place] [address] Hemoglobin (Bld) [Mass/Vol] 13.5 g/dL Normal 12.0-15.0 [facility] Comment on above: Performed By: #### L [id number] #### [facility] ([facility]) [address] [place] [address] Immature granulocytes (Bld) [#/Vol] 0.04 10*3/uL Normal 0.00-0.20 [facility] Comment on above: Performed By: #### L [id number] #### [facility] ([facility]) [address] [place] [address] Immature granulocytes/100 WBC (Bld) 0.4 % Normal 0.0-1.0 [facility] Comment on above: Performed By: #### L [id number] #### [facility] ([facility]) [address] [place] [address] Lymphocytes (Bld) [#/Vol] 1.38 10*3/uL Normal 1.20-4.00 [facility] Comment on above: Performed By: #### L [id number] #### [facility] ([facility]) [address] [place] [address] Lymphocytes/100 WBC (Bld) 14.4 % Low 20.0-45.0 [facility] Comment on above: Performed By: #### L [id number] #### [facility] ([facility]) [address] [place] [address] MCH (RBC) [Entitic mass] 29.3 pg Normal 27.0-33.0 [facility] Comment on above: Performed By: #### L [id number] #### [facility] ([facility]) [address] [address] MCV (RBC) [Entitic vol] 87.9 fL Normal 82.0-98.0 [facility] Comment on above: Performed By: #### L [id number] #### [facility] ([facility]) [address] [place] [address] Monocytes (Bld) [#/Vol] 0.87 10*3/uL Normal 0.10-1.00 [facility] Comment on above: Performed By: #### L [id number] #### [facility] ([facility]) [address] [address] Monocytes/100 WBC (Bld) 9.1 % Normal 5.0-12.0 [facility] Comment on above: Performed By: #### L [id number] #### [facility] ([facility]) [address] [place] [address] Neutrophils (Bld) [#/Vol] 6.85 10*3/uL Normal 1.60-7.60 [facility] Comment on above: Performed By: #### L [id number] #### [facility] ([facility]) [address] [address] Neutrophils/100 WBC (Bld) 71.3 % Normal 40.0-72.0 [facility] Comment on above: Performed By: #### L [id number] #### [facility] [address] [place] [address] NRBC (PER 100 WBCS) BY AUTOMATED COUNT 0.0 % Normal 0 [facility] Comment on above: Performed By: #### L [id number] #### [facility] ([facility] [address] [place] [address] PLATELETS (10*3/UL) IN BLOOD AUTOMATED COUNT 460 10*3/uL High 150-400 [facility] Comment on above: Performed By: #### L [id number] #### [facility] ([facility]) [address] [place] [address] RBC (Bld) [#/Vol] 4.61 10*6/uL Normal 3.80-5.00 [facility] Comment on above: Performed By: #### L [id number] #### [facility] ([facility]) [address] [place] [address] WBC (Bld) [#/Vol] 9.60 10*3/uL Normal 4.00-10.60 [facility] Comment on above: Performed By: #### L [id number] #### [facility] ([facility]) [address] [place] [address] Consulton 11-28-2023 Consult [id number] Melanie Espinoza 1955 F Date Provider Department [place] 11/28/2023 ERNESTO KAPLAN MP ORTHO MPORTHO Family History Problem Relation Age of Onset Hypertension Mother Stroke Mother Heart attack Father Family Status - Relation Status Age at Mother Father Level of Service:88054 MT OFFICE/OUTPATIENT ESTABLISHED LOW MDM 20 MIN (GC) Reason for Visit and Comments: Pain [136] - PRE-OP L HIP CONVERSION TO L NICOLASA , PATIENT RESIDES AT [facility] HEMOGLOBIN A1Con 11-28-2023 Glucose [Mass/Vol] 108 mg/dL Normal [facility] Comment on above: Order Comment: NO VA RIANT Performed By: #### L [id number] #### [facility] ([facility] [address] [place] [address] HbA1c (Bld) [Mass fraction] 5.4 % Normal 4.0-6.0 [facility] Comment on above: Order Comment: NO VA RIANT Performed By: #### L [id number] #### [facility] ([facility]) [address] [place] [address] HPon 11-28-2023 Orthopedic Surgery Subjective Pain of the Left Hip (PRE-OP L HIP CONVERSION TO L NICOLASA , PATIENT RESIDES AT [facility] ) 11/28/2023 Patient presents today for her preoperative appointment regarding left hip conversion to total hip arthroplasty via anterior approach for 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 Per her primary care physician recommendations she underwent coronary angiogram. This showed mild three-vessel coronary disease and the recommendation for her integrated marketing specialist was to be on aspirin, statin, and beta-gilson therapy. However, there are no recommendations at this time regarding when aspirin can be stopped prior to surgery. She still localizes her pain in her left groin. She states her pain is 9 out of 10. Currently controlled with Tylenol. She otherwise denies any new injuries, complaints, numbness, tingling. Patient denies any allergies to adhesives, clinic lesions, latex. She does have an allergy to the macrolide family drugs. She denies any prior history of blood clots or DVT 07/04/23 Melanie Espinoza is a 68 y.o. [...] Anxiety Arthritis Chronic kidney disease Dysphagia Epilepsy (CMS/HCC) GERD (gastroesophageal reflux disease) Hyperlipidemia Hypertension Major depressive disorder Osteoarthritis Peripheral vascular disease (CMS/HCC) Rectal prolapse Objective General: Body mass index is 17.71 kg/m???. No acute distress, comfortable Left Lower [...] distributions Negative valgus and varus strain Imaging Radiographs of the left hip obtained in the clinic on 11/28/2023 show redemonstrated left hip degenerative joint disease with further femoral head collapse and prior closed duction percutaneous pinning femoral neck. X-ray of the left hip and pelvis [...] due to the severe arthritis and shortening. Discussed risk of anesthesia, infection, bleeding, injury to nerves and vessels, dislocation, leg length discrepancy, stiffness, persistence of pain, femur fractures, blood clots to the legs or the lungs, medical complications and possible revision surgery. Patient understood the recommendations and possible risks and elected to proceed with surgery. An informed consent was obtained. Per cardiology recommendations, patient is currently on aspirin, statin, and beta-gilson therapy. She otherwise received medical clearance for proceeding with surgery from her primary care physician. However, at this time we do not have a recommendation regarding stopping aspirin prior to surgery. We will contact her primary care physician in order to gain to provide a note (more content not included)... Normal [facility] Labon 11-28-2023 Lab [id number] Melanie Espinoza 1955 F Date Provider Department [place] 11/28/2023 2244-[facility] LAB RESOURCE MP DRAW Medical Pavi Family History Problem Relation Age of Onset Hypertension Mother Stroke Mother Heart attack Father Family Status - Relation Status Age at Mother Father Normal [facility] MRSA/MSSA DNA NASALon 2023 MRSA DNA Negative Normal Negative [facility] Comment on above: Order Comment: Testi ng methodology is an automated qualitative in vitro diagnostic test for the directdetection and differentiation of Staphylococcus aureus (SA) DNA and methicillin-resistant Staphylococcus aureus (MRSA) DNA from nasal swabs in patients at risk for nasal colonization. The test utilizes real-time polymerase chain reaction (PCR) for the amplification of MRSA/SA DNA and fluorogenic target-specific hybridization probes for the detection of the amplified DNA. A negative result does not preclude nasal colonization. Performed By: #### L [id number] ####[facility] (BEAKER)[address] [place] [address] MSSA DNA Negative Normal Negative [facility] Comment on above: Order Comment: Testi ng methodology is an automated qualitative in vitro diagnostic test for the directdetection and differentiation of Staphylococcus aureus (SA) DNA and methicillin-resistant Staphylococcus aureus (MRSA) DNA from nasal swabs in patients at risk for nasal colonization. The test utilizes real-time polymerase chain reaction (PCR) for the amplification of MRSA/SA DNA and fluorogenic target-specific hybridization probes for the detection of the amplified DNA. A negative result does not preclude nasal colonization. Performed By: #### L [id number] ####[facility] (BEAKER)[address] [place] [address] PROTIME-INRon 11-28-2023 INR IN PPP BY COAGULATION ASSAY 0.96 Normal 0.90-1.10 [facility] Comment on above: Result Comment: [facility] P RECOMMENDED INR FOR WARFARIN THERAPY CONDITION INR PROPHYLAXIS OF VENOUS THROMBOSIS 2-3 (HIGH-RISK SURGERY) TREATMENT OF VENOUS THROMBOSIS 2-3 TREATMENT OF PULMONARY EMBOLISM 2-3 PREVENTION OF SYSTEMIC EMBOLISM: 2-3 ACUTE MYOCARDIAL INFARCTION TISSUE HEART VALVES VALVULAR HEART DISEASE ATRIAL FIBRILLATION RECURRENT SYSTEMIC EMBOLISM MECHANICAL HEART VALVE 2.5-3.5 FROM: ORAL ANTICOAGULANTS. MECHANISM OF ACTION, CLINICAL EFFECTIVENESS, AND OPTIMAL THERAPEUTIC RANGE. CHEST 1995;108:231S-246S. Performed By: #### L [id number] ####[facility] ([facility])[address] [place] [address] PROTHROMBIN TIME (PT) IN PPP BY COAGULATION ASSAY 12.8 Seconds Normal 12.3-14.8 [facility] Comment on above: Performed By: #### L [id number] ####[facility] ([facility])[address] [facility] [place] [address] TYPE AND SCREENon 11-28-2023 AB SCREEN Negative Normal [facility] Comment on above: Order Comment: TYPE AND CROSS 2 UNITS Performed By: #### L [id number] #### [facility] ([facility]) [address] [place] [address] ABO group Nom (Bld) O Normal [facility] Comment on above: Order Comment: TYPE AND CROSS 2 UNITS Performed By: #### L [id number] #### [facility] ([facility]) [address] [address] RH TYPE IN BLOOD Positive Normal [facility] Comment on above: Order Comment: TYPE AND CROSS 2 UNITS Performed By: #### L [id number] #### [facility] ([facility]) [address] [place] [address] URINALYSIS WITH REFLEX CULTU REon 11-28-2023 BILIRUBIN, TOTAL PRESENCE IN URINE Negative Normal Negative [facility] Comment on above: Order Comment: Micro scopics not performed on urines with negative chemical reactions unless requested on original order. Performed By: #### L [id number] #### [facility] ([facility]) [address] [place] [address] Clarity (U) Clear Normal Clear [facility] Comment on above: Order Comment: Micro scopics not performed on urines with negative chemical reactions unless requested on original order. Performed By: #### L [id number] #### [facility] ([facility]) [address] [place] [address] Color (U) Straw Abnormal Yellow [facility] Comment on above: Order Comment: Micro scopics not performed on urines with negative chemical reactions unless requested on original order. Performed By: #### L [id number] #### [facility] ([facility]) [address] [place] [address] Glucose (U) [Mass/Vol] Negative Normal Negative [facility] Comment on above: Order Comment: Micro scopics not performed on urines with negative chemical reactions unless requested on original order. Performed By: #### L [id number] #### [facility] ([facility]) [address] [place] [address] HEMOGLOBIN PRESENCE IN URINE Negative Normal Negative [facility] Comment on above: Order Comment: Micro scopics not performed on urines with negative chemical reactions unless requested on original order. Performed By: #### L [id number] #### [facility] ([facility]) [address] [place] [address] Ketones Ql (U) Negative Normal Negative [facility] Comment on above: Order Comment: Micro scopics not performed on urines with negative chemical reactions unless requested on original order. Performed By: #### L [id number] #### [facility] ([facility]) [address] [place] [address] LEUKOCYTE ESTERASE PRESENCE IN URINE BY TEST STRIP Negative Normal Negative [facility] Comment on above: Order Comment: Micro scopics not performed on urines with negative chemical reactions unless requested on original order. Performed By: #### L [id number] #### [facility] ([facility]) [address] [place] [address] NITRITE PRESENCE IN URINE Negative Normal Negative [facility] Comment on above: Order Comment: Micro scopics not performed on urines with negative chemical reactions unless requested on original order. Performed By: #### L [id number] #### [facility] ([facility]) [address] [place] [address] pH (U) 6.0 [pH] Normal 5.0-8.0 [facility] Comment on above: Order Comment: Micro scopics not performed on urines with negative chemical reactions unless requested on original order. Performed By: #### L [id number] #### [facility] ([facility]) [address] [place] [address] Protein (U) [Mass/Vol] Negative Normal Negative [facility] Comment on above: Order Comment: Micro scopics not performed on urines with negative chemical reactions unless requested on original order. Performed By: #### L [id number] #### [facility] ([facility]) [address] [place] [address] Specific gravity (U) [Rel density] 1.006 Low 1.015-1.020 [facility] Comment on above: Order Comment: Micro scopics not performed on urines with negative chemical reactions unless requested on original order. Performed By: #### L [id number] #### [facility] ([facility]) [address] [place] [address] Lynne 11-12-2023 CNOV Office Visit ([facility]) MELANIE ESPINOZA ([id number]) 1955 F Date Time Provider Department 11/12/23 11:[address] [facility] During your visit today, we recorded the following information about you: Pulse Blood pressure Weight 72/minute 136/80 43.1 kg Tai Hinojosa MD 11/12/2023 11:37 AM Signed November 12, 2023 Tai Hinojosa MD [address] / [address] [address] Esteban Garza MD ([facility]) [address] [place] [address] Melanie Espinoza : 1955 Interval History: Melanie Espinoza is a 68 year old woman with an almost 6 year history of dyskinesias returning for follow up. The patient is seen alone. She has constant tremors. She finds relief mostly with lying down. She still takes Austedo and clonazepam. She is scheduled for hip surgery. Hopefully, this will help her ability to stand up. Allergies: ALLERGIES Allergen Reactions Erythromycin Unknown Current Medications: celecoxib (CELEBREX) 100 mg capsule Take 100 mg by mouth two times a day. clonazePAM (KLONOPIN) 0.5 mg tablet Take 0.5 mg by mouth three times a day. Take 3 tablets by mouth 3 times a day. mirtazapine (REMERON) 15 mg tablet Take 15 mg by mouth daily at bedtime. cyclobenzaprine (FLEXERIL) 10 mg tablet guaiFENesin-dextrometho rphan (ROBITUSSIN DM) 100-10 mg/5 mL syrup Take 10 mL by mouth every 6 hours as needed. levothyroxine (SYNTHROID) 75 mcg tablet traZODone (DESYREL) 100 mg tablet busPIRone (BUSPAR) 10 mg tablet Take 10 mg by mouth three times daily. gabapentin (NEURONTIN) 600 mg tablet Take 600 mg by mouth three times a day. deutetrabenazine (AUSTEDO) 12 mg tab Take 2 [...] 1 g by mouth three times daily. acetaminophen (TYLENOL) 500 mg tablet Take 500 mg by mouth every 8 hours as needed. ondansetron (ZOFRAN) 4 mg tablet Take by mouth every 8 hours as needed for nausea/vomiting. gabapentin (NEURONTIN) 300 mg capsule Take 1 capsule in the morning, one in early afternoon, and 2 in the evening primidone (MYSOLINE) 250 mg tablet Take 1 tablet by mouth twice daily. clonazePAM (KLONOPIN) 1 mg tablet Take 1.5 tablets by mouth three times daily for 90 days. [including bedtime] HYDROcodone-acetaminoph en (NORCO) 5-325 mg per tablet Take 1 tablet by mouth every 8 hours as needed for pain. (Patient not taking: Reported on 01/08/2023) busPIRone (BUSPAR) 15 mg tablet Take 15 mg by mouth three times daily. (Patient not taking: Reported on 01/08/2023) Ibuprofen 200 mg cap Take by mouth every 6 hours as needed. (Patient not taking: Reported on 01/08/2023) methocarbamol (ROBAXIN) 750 mg tablet Take 750 mg by mouth four times daily. (Patient not taking: Reported on 01/08/2023) sucralfate (CARAFATE) 1 gram tablet Take 1 g by mouth four times daily. (Patient not taking: Reported on 11/12/2023) busPIRone (BUSPAR) 5 mg tablet Take 1 [...] issues Physical Examination: General Description of Patient: uncomfortable, sitting in wheelchair - (more content not included)... [facility] --- Attestation signed by Jessica Wagoner MD at 11/04/2023 1:05 PM Jessica Wagoner MD, MPH, [facility], [facility], [facility] Interventional Cardiology Pager Email: [email or web address] Patient: Melanie Espinoza Procedure Information Date/Time: 11/04/23 1130 Procedure: Coronary angiography; PC Approved - pc approved Location: [facility] / [facility] (Cath) Providers: Jessica Wagoner MD Clinical information reviewed: Tobacco Allergies Meds Med Hx Surg Hx OB Status Fam Hx Physical Exam Airway Mallampati: II TM distance: >3 FB Neck ROM: full Cardiovascular Rhythm: regular Rate: normal Dental Pulmonary Breath sounds clear to auscultation Abdominal Abdomen: soft Bowel sounds: normal Anesthesia Plan ASA 3 other (Conscious ) Anesthetic plan and risks discussed with patient. Use of blood products discussed with patient who consented to blood products. Plan discussed with attending. Additional Equipment Requests Normal [facility] HPon 11-04-2023 --- Attestation signed by Jessica Wagoner MD at 11/04/2023 11:34 AM Jessica Wagoner MD, MPH, [facility], [facility], [facility] Interventional Cardiology Pager Email: [email or web address] History Of Present Illness Melanie Espinoza is a 68 y.o. female presenting with abnormal Armen MPI with TID 1.24 for CAG and +/- PCI. Past Medical History She has a past medical history of Anemia, Anxiety, Arthritis, Chronic kidney disease, Dysphagia, Epilepsy (CMS/HCC), GERD (gastroesophageal reflux disease), Hyperlipidemia, Hypertension, Major depressive disorder, Osteoarthritis, Peripheral vascular disease (CMS/HCC), and Rectal prolapse. Surgical History She has a past surgical history that includes Shoulder surgery and Rectal prolapse repair. Social History She reports that she has quit smoking. Her smoking use included cigarettes. She has never used smokeless tobacco. She reports that she does not drink alcohol. No history on file for drug use. Allergies Erythromycin, Azithromycin, Erythromycin base, and Clarithromycin Medications Medications Prior to Admission Medication Sig Dispense Refill Last Dose alendronate (Fosamax) 70 mg tablet Take 1 tablet by mouth 1 (one) time per week. Past Week aspirin 81 mg chewable tablet Chew 1 tablet (81 mg) in the morning. 30 tablet 11 11/04/2023 atorvastatin (Lipitor) 40 mg tablet Take 1 tablet by mouth in the evening. 11/03/2023 Austedo 12 mg tablet Take 12 mg by mouth in the morning and at bedtime. 11/03/2023 busPIRone (Buspar) 10 mg tablet Take 15 mg by mouth in the morning and at bedtime. 11/03/2023 calcium carbonate 600 mg calcium (1,500 mg) tablet Take 600 mg by mouth in the morning. 11/03/2023 celecoxib (CeleBREX) 100 mg capsule Take 100 mg by mouth in the morning and at bedtime. 11/03/2023 clonazePAM (KlonoPIN) 0.5 mg tablet Take 1-2 tablets by mouth at bedtime. 11/03/2023 cyclobenzaprine (Flexeril) 10 mg tablet Take 10 mg by mouth if needed in the morning, at noon, and at bedtime for muscle spasms. 11/03/2023 ferrous sulfate 325 (65 Fe) MG tablet Take 325 mg by mouth with breakfast. 11/03/2023 fluticasone (Flonase) 50 mcg/actuation nasal spray 2 sprays by nasal (alternating) route 1 (one) time each day. 11/03/2023 gabapentin (Neurontin) 300 mg capsule Take 300 mg by mouth in the morning and at bedtime. 11/03/2023 gabapentin (Neurontin) 600 mg tablet at bedtime. 11/03/2023 levothyroxine (Tirosint) 75 mcg capsule Take 75 mcg by mouth in the morning. 11/03/2023 loperamide (Imodium A-D) 2 mg tablet Take 2 mg by mouth every 6 (six) hours if needed for diarrhea. 11/03/2023 menthol (Biofreeze, menthol,) 4 % gel Apply 1 Application topically every 8 (eight) hours if needed. 11/03/2023 metoprolol succinate XL (Toprol-XL) 50 mg 24 hr tablet Take 1 tablet (50 mg) by mouth in the morning. Do not crush or chew. 30 tablet 11 11/03/2023 mirtazapine (Remeron) 15 mg tablet Take 15 mg by mouth at bedtime. 11/03/2023 ondansetron (Zofran) 4 mg tablet Take 4 mg by mouth every 12 (twelve) hours if needed for nausea or vomiting. 11/03/2023 pantoprazole (ProtoNix) 40 mg EC tablet Take 40 mg by mouth before breakfast. 11/03/2023 primidone (Mysoline) 50 mg tablet Take 50 mg by mouth in the morning and at bedtime. 11/03/2023 sodium chloride 1,000 mg tablet Take 1 g by mouth in the morning. 11/03/2023 traZODone (Desyrel) 100 mg tablet Take 100 mg by mouth at bedtime. 11/03/2023 Review of Systems -ve otherwise Physical Exam Last Recorded Vitals Blood pressure (!) 154/91, pulse 80, resp. rate 16, SpO2 98 %. Relevant Results TID 1.24 on armen MPI Assessment/Plan Active Problems: Preoperative clearance Abnormal cardiovascular stress test Atherosclerosis of [place] coronary artery of [place] heart without angina pectoris CAG +/- PCI. Discussed risks, benefits, and alternatives, she understands and willing to proceed. Batool Fairbanks MD PGY-7 Interventional [employer] [facility] NURSNOTEon 11-04-2023 NURSNOTE RN educated pt on d/ c instructions. RN encouraged pt to voice any questions or concerns. Pt verbalizes no questions or concerns at this time. Pt was wheeled off of unit with all of belongings. [facility] NURSNOTE Report given to Evelyn arias RN at [place] from Marian GENAO Any medications or safety alerts were reviewed. Any pending diagnostics and notifications were also reviewed, as well as any safety concerns or issues, abnormal labs, abnormal imagining, and abnormal assessment findings. Questions were answered. [facility] NURSNOTE Attempt x3 calls mad e to get a hold of nurse at [place] to give report. Message left answering machine and with supervisor cytogenetic laboratory phone number for nurse to call back at her convenience. [facility] Orders Onlyon 10-15-2023 Orders Only [id number] Melanie Espinoza 1955 F Date Provider Department Center 10/15/2023 LILY OTOOLE [facility] HeartVAS Family History Problem Relation Age of Onset Hypertension Mother Stroke Mother Heart attack Father Family Status - Relation Status Age at Mother Father Normal [facility] Abstracton 09-27-2023 Abstract [id number] Melanie Espinoza 1955 F Date Provider Department Center 09/27/2023 ERNESTO KAPLAN [facility] ORTH[facility] Family History Problem Relation Age of Onset Hypertension Mother Stroke Mother Heart attack Father Family Status - Relation Status Age at Mother Father [facility] 36on 09-18-2023 36 LMVM TO RETURN MY CA LL. IF NURSE CALLS PLEASE FORWARD TO MY LINE.THANKS//MAG [facility] 36 States patient needs more work up from her heart doctor, they would like to know if they need to push out the pre op appt? Normal [facility] Office Visiton 09-18-2023 Follow-up visit [id number] Melanie Espinoza 1955 Provider Department Center 09/18/2023 36565-OOVCCTLEONIE JOYA KARI [facility] Family History Problem Relation Age of Onset Hypertension Mother Stroke Mother Heart attack Father Family Status - Relation Status Age at Mother Father Level of Service:07182 MT OFFICE/OUTPATIENT NEW MODERATE MDM 45 MINUTES Normal [facility] Follow-Upon 07-04-2023 Follow-Up [id number] Melanie Espinoza 1955 Provider Department Center 07/04/2023 ERNESTO KAPLAN ORTHO MPORTHO Family History Family history unknown: Yes Level of Service:40462 MT OFFICE/OUTPATIENT ESTABLISHED MOD MDM 30 MIN () Reason for Visit and Comments: Pain [136] Normal [facility] CT HIP LEFT WO IV CONTRASTon 05-21-2023 [...] not completely assessed. Electronically signed: Scooby Kelly. [facility] CT PELVIS WO IV CONTRASTon 0 [...] Urinary bladder distention. Electronically signed: Scooby Kelly. [facility] CNOVon 05-14-2023 CNOV Office Visit ([facility]) MELANIE ESPINOZA ([id number]) 1955 F Date Time Provider Department 05/14/23 4:[address] [facility] During your visit today, we recorded the following information about you: Pulse Blood pressure Weight Height 81/minute 175/92 43.1 kg 1.6 m Tai Hinojosa MD 05/14/2023 4:40 PM Signed May 14, 2023 Tai Hinojosa MD [address] / [place] [id number] Esteban Garza MD ([facility]) [address] [place] [address] Melanie Espinoza : 1955 Interval History: Melanie Espinoza is a 67 year old woman with a 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 The patient is seen with a transporter driver. Her symptoms persist. Increasing the clonazepam did help the movements. The hip finally gave out and now needs a replacement. Allergies: ALLERGIES Allergen Reactions Erythromycin Unknown Current Medications: cyclobenzaprine (FLEXERIL) 10 mg tablet guaiFENesin-dextrometho rphan (ROBITUSSIN DM) 100-10 mg/5 mL syrup Take [...] times daily for 90 days. [including bedtime] HYDROcodone-acetaminoph en (NORCO) 5-325 mg per tablet Take 1 [...] facial m (more content not included)... Normal [facility] Follow-Upon 04-04-2023 Follow-Up [id number] Melanie Espinoza 1955 F Date Provider Department Center 04/04/2023 293-ERNESTO [address]ZA MP [facility] Family History Family history unknown: Yes Level of Service:77345 MT OFFICE/OUTPATIENT ESTABLISHED LOW MDM 20 MIN (GC) Reason for Visit and Comments: Pain [136] - L hip possible fracture, patient states she fell [facility] last night Normal [facility] Office Visiton 03-04-2023 Follow-up visit [id number] Melanie Espinoza 1955 F Date Provider Department Center 03/04/2023 499-HERVE STARKEY MP ORTHO MPORTHO Family History Family history unknown: Yes Level of Service:44505 MT OFFICE/OUTPATIENT ESTABLISHED LOW MDM 20-29 MIN Reason for Visit and Comments: Pain [136] Normal [facility] CNOVon 01-08-2023 CNOV Office Visit ([facility]) MELANIE ESPINOZA ([id number]) 1955 F Date Time Provider Department 01/08/23 2:[address] [facility] During your visit today, we recorded the following information about you: Pulse Blood pressure Weight Height 83/minute 150/72 44.5 kg 1.6 m Tai Hinojosa MD 01/08/2023 2:41 PM Signed January 08, 2023 Tai Hinojosa MD [address] / [place] [id number] Esteban Garza MD ([facility]) [facility] [place] [address] Melanie Espinoza : 1955 Interval History: Melanie [...] twice daily. cyclobenzaprine (FLEXERIL) 10 mg tablet guaiFENesin-dextrometho rphan (ROBITUSSIN DM) 100-10 mg/5 mL syrup Take 10 mL by mouth every 6 hours as needed. levothyroxine (SYNTHROID) 75 mcg tablet traZODone (DESYREL) 100 mg tablet HYDROcodone-acetaminoph en (NORCO) 5-325 mg per tablet Take 1 [...] no CP (more content not included)... Normal [facility] XR shoulder RT min 2V*on XR shoulder RT min 2V* [facility] Main [address] [address] XRay Report Signed Patient: Melanie Espinoza MR#: [id number] 6 : 1955 Acct:[id number] Age/Sex: 67 / F ADM Date: 06/18/22 Loc: SOXD Room: Type: REG CLI Attending Dr: Stevenson Corbin MD Copies [...] Taylor Jr., D.O.06/18/2022 4:21 PM Dictation Location: [place] [address] Transcribed By: [facility] 06/18/22 162 Dictated By: Tai Taylor Jr, DO 06/18/22 162 Signed By: 06/18/22 1621 [facility] XR SHOULDER RT 2V or >on [...] SIMON ANDRADE Date: 2022-06-04 10:57 Normal [facility] [place] CBC AUTO DIFFon 04-19-2022 BASO # 0.0 103/ul Normal 0.0-0.1 [facility] Comment on above: Performed By: #### C BC #### [facility] [place] [facility] [address] [place] [address] Dr. Miranda Claudio Basophils/100 WBC (Bld) 0.2 % Normal 0.2-2.0 [facility] [place] Comment on above: Performed By: #### C BC #### [facility] [place] [facility] [address] [place] [address] [address] Miranda Claudio EO # 0.0 103/ul Normal 0.0-0.7 [facility] Comment on above: Performed By: #### C BC #### [facility] [place] [facility] [address] [place] [address] Dr. Miranda Claudio Eosinophils/100 WBC (Bld) 0.4 % Critically low 0.9-7.0 [facility] [place] Comment on above: Performed By: #### C BC #### [facility] [place] [facility] [address] [place] [address] Dr. Miranda Claudio Erythrocyte distribution width (RBC) [Ratio] 13.7 % Normal 11.0-15.0 [facility] Comment on above: Performed By: #### C BC #### [facility] [place] [facility] [address] [place] [address] Dr. Miranda Claudio Hematocrit (Bld) [Volume fraction] 33.6 % Critically low 36.0-48.0 [facility] Comment on above: Performed By: #### C BC #### [facility] [place] [facility] [address] [place] [address] Dr. Miranda Claudio Hemoglobin (Bld) [Mass/Vol] 11.4 g/dL Critically low 12.0-16.0 [facility] Comment on above: Performed By: #### C BC #### [facility] [place] [facility] [address] [place] [address] Dr. Miranda Claudio IG # 0.02 10e3/ul Normal 0.00-0.03 [facility] Comment on above: Performed By: #### C BC #### [facility] [place] [facility] [address] [place] [address] Dr. Miranda Claudio IG % 0.4 % Normal 0.0-0.5 [facility] [place] Comment on above: Performed By: #### C BC #### [facility] [place] [facility] [address] [place] [address] Dr. Miranda Claudio LYMPH # 0.9 103/ul Critically low 1.2-3.8 [facility] Comment on above: Performed By: #### C BC #### [facility] [place] [facility] [address] [place] [address] Dr. Miranda Claudio Lymphocytes/100 WBC (Bld) 18.4 % Critically low 20.5-60.0 [facility] Comment on above: Performed By: #### C BC #### [facility] [place] [facility] [address] [place] [address] Dr. Miranda Claudio MANUAL DIFF REQ NO Normal [facility] Comment on above: Performed By: #### C BC #### [facility] [place] [facility] [address] [place] [address] Dr. Miranda Claudio MCH (RBC) [Entitic mass] 26.5 pg Critically low 26.7-34.0 [facility] Comment on above: Performed By: #### C BC #### [facility] [place] [facility] [address] [place] [address] Dr. Miranda Claudio MCHC (RBC) [Mass/Vol] 33.9 g/dL Normal 29.9-35.2 [facility] [place] Comment on above: Performed By: #### C BC #### [facility] [place] [facility] [address] [place] [address] Dr. Miranda Claudio MCV (RBC) [Entitic vol] 78.0 fL Critically low 81.0-99.0 [facility] Comment on above: Performed By: #### C BC #### [facility] [place] [facility] [address] [place] [address] Dr. Miranda Claudio MONO # 0.6 103/ul Normal 0.3-0.8 [facility] Comment on above: Performed By: #### C BC #### [facility] [place] [facility] [address] [place] [address] Dr. Miranda Claudio Monocytes/100 WBC (Bld) 11.7 % Normal 1.7-12.0 [facility] [place] Comment on above: Performed By: #### C BC #### [facility] [place] [facility] [address] [place] [address] Dr. Miranda Claudio NEUT # 3.3 103/ul Normal 1.4-6.5 [facility] [place] Comment on above: Performed By: #### C BC #### [facility] [place] [facility] [address] [place] [address] Dr. Miranda Claudio Neutrophils/100 WBC (Bld) 68.9 % Normal 43.0-75.0 [facility] [place] Comment on above: Performed By: #### C BC #### [facility] [place] [facility] [address] [place] [address] Dr. Miranda Claudio Platelet mean volume (Bld) [Entitic vol] 8.1 fL Critically low 9.5-13.5 [facility] Comment on above: Performed By: #### C BC #### [facility] [place] [facility] [address] [place] [address] Dr. Miranda Claudio PLT 394 103/ul Normal 150-450 [facility] Comment on above: Performed By: #### C BC #### [facility] [place] [facility] [address] [place] [address] Dr. Miranda Claudio RBC 4.31 106/ul Normal 4.20-5.40 [facility] Comment on above: Performed By: #### C BC #### [facility] [place] [facility] [address] [place] [address] Dr. Miranda Claudio WBC 4.8 103/ul Normal 4.0-11.0 [facility] Comment on above: Performed By: #### C BC #### [facility] [place] [facility] [address] [place] [address] Dr. Miranda Claudio PROF 14(COMP METB)on 023 Albumin [Mass/Vol] 2.7 g/dL Critically low 3.4-5.0 [facility] Comment on above: Performed By: #### C MP #### [facility] [place] [facility] [address] [place] [address] Dr. Miranda Claudio Albumin/Globulin [Mass ratio] 0.8 {ratio} Normal [facility] Comment on above: Performed By: #### C MP #### [facility] [place] [facility] [address] [place] [address] Dr. Miranda Claudio ALP [Catalytic activity/Vol] 64 U/L Normal 46-116 [facility] [place] Comment on above: Performed By: #### C MP #### [facility] [place] [facility] [address] [place] [address] Dr. Miranda Claudio ALT [Catalytic activity/Vol] 33 U/L Normal 14-59 [facility] Comment on above: Performed By: #### C MP #### [facility] [place] [facility] [address] [place] [address] Dr. Miranda Claudio Anion gap [Moles/Vol] 12.1 mmol/L Normal [facility] Comment on above: Performed By: #### C MP #### [facility] [place] [facility] [address] [place] [address] Dr. Miranda Claudio AST [Catalytic activity/Vol] 64 U/L Critically high 15-37 [facility] Comment on above: Performed By: #### C MP #### [facility] [place] [facility] [address] [place] [address] Dr. Miranda Claudio Bilirubin [Mass/Vol] 0.2 mg/dL Normal 0.2-1.0 [facility] Comment on above: Performed By: #### C MP #### [facility] [place] [facility] [address] [place] [address] Dr. Miranda Claudio Calcium [Mass/Vol] 7.9 mg/dL Critically low 8.5-10.1 Th [facility] Comment on above: Performed By: #### C MP #### [facility] [place] [facility] [address] [place] [address] Dr. Miranda Claudio Chloride [Moles/Vol] 98 mmol/L Normal 98-107 [facility] Comment on above: Performed By: #### C MP #### [facility] [place] [facility] [address] [place] [address] Dr. Miranda Claudio CO2 [Moles/Vol] 26.7 mmol/L Normal 21.0-32.0 [facility] Comment on above: Performed By: #### C MP #### [facility] [place] [facility] [address] [place] [address] Dr. Miranda Claudio Creatinine [Mass/Vol] 0.44 mg/dL Critically low 0.55-1.02 [facility] Comment on above: Performed By: #### C MP #### [facility] [place] [facility] [address] [place] [address] Dr. Miranda Claudio EGFR-AF CAMEROONIAN >60 Normal >=60 [facility] Comment on above: Performed By: #### C MP #### [facility] [place] [facility] [address] [place] [address] Dr. Miranda Claudio EGFR-NON AF CAMEROONIAN >60 Normal >=60 [facility] Comment on above: Performed By: #### C MP #### [facility] [place] [facility] [address] [place] [address] [address] Miranda Claudio Globulin (S) [Mass/Vol] 3.3 g/dL Normal [facility] Comment on above: Performed By: #### C MP #### [facility] [place] [facility] [address] [place] [address] [address] Miranda Claudio Glucose [Mass/Vol] 78 mg/dL Normal 74-106 [facility] Comment on above: Performed By: #### C MP #### [facility] [place] [facility] [address] [place] [address] [address] Miranda Claudio Potassium [Moles/Vol] 2.8 mmol/L Critically low 3.5-5.1 [facility] Comment on above: Performed By: #### C MP #### [facility] [place] [facility] [address] [place] [address] Dr. Miranda Claudio Protein [Mass/Vol] 6.0 g/dL Critically low 6.4-8.2 [facility] Comment on above: Performed By: #### C MP #### [facility] [place] [facility] [address] [place] [address] [address] Miranda Claudio Sodium [Moles/Vol] 134 mmol/L Critically low 136-145 [facility] Comment on above: Performed By: #### C MP #### [facility] [place] [facility] [address] [place] [address] Dr. Miranda Claudio Urea nitrogen [Mass/Vol] 4.0 mg/dL Critically low 7.0-18.0 [facility] Comment on above: Performed By: #### C MP #### [facility] [place] [facility] [address] [place] [address] [address] Miranda Claudio Urea nitrogen/Creatinine [Mass ratio] 9.1 mg/mg Normal [facility] Comment on above: Performed By: #### C MP #### [facility] [place] [facility] [address] [place] [address] Dr. Miranda Claudio XR CHEST 1 Von [...] CM RAMIREZ Date: 2022-04-19 07:08 Normal [facility] [place] CARDIAC EMMA ADMITon 022 CK [Catalytic activity/Vol] 412 U/L Critically high 26-192 [facility] Comment on above: Performed By: #### Oskar MERCADO CMP ####[facility] [place] [address] [place] [address]Dr. Miranda Claudio CK.MB [Mass/Vol] 19.37 ng/mL Critically high <=3.60 Th [facility] Comment on above: Performed By: #### Oskar MERCADO CMP ####[facility] [place] [address] [place] [address]Dr. Miranda Claudio HSTROP 5.9 pg/mL Normal 4.0-51.3 [facility] Comment on above: Result Comment: CUT- OFF POINTS HAVE BEEN ESTABLISHED BASED ON THE FOURTH UNIVERSAL DEFINITIONS OF MYOCARDIAL INFARCTION. THE UPPER REFERENCE LIMIT (URL) OF TROPONIN, DEFINED THE 99TH PERCENTILE OF cTnI DISTRIBUTION IN A REFERENCE POPULATION, HAS BEEN CONFIRMED THE DECISION THRESHOLD FOR ID DIAGNOSIS. Performed By: #### Oskar MERCADO, CMP ####[facility] [place] [address] [place] [address]Dr. Miranda Claudio MARKEL 82 ng/mL Normal 9-82 [facility] [place] Comment on above: Performed By: #### Oskar MERCADO CMP ####[facility] [place] [address] [place] [address]Dr. Miranda Claudio CBC AUTO DIFFon 03-23-2022 BASO # 0.1 103/ul Normal 0.0-0.1 [facility] Comment on above: Performed By: #### Oskar BC ####[facility] [place] [address] [place], [place] [address]Dr. Miranda Claudio Basophils/100 WBC (Bld) 0.5 % Normal 0.2-2.0 [facility] [place] Comment on above: Performed By: #### C BC ####[facility] [place] [address] [place] [address]Dr. Miranda Claudio EO # 0.5 103/ul Normal 0.0-0.7 [facility] [place] Comment on above: Performed By: #### C BC ####[facility] [place] [address] [place], [place] [address]Dr. Miranda Claudio Eosinophils/100 WBC (Bld) 4.1 % Normal 0.9-7.0 [facility] [place] Comment on above: Performed By: #### C BC ####[facility] [place] [address] [place], [place] [address]Dr. Miranda Claudio Erythrocyte distribution width (RBC) [Ratio] 13.9 % Normal 11.0-15.0 [facility] [place] Comment on above: Performed By: #### C BC ####[facility] [place] [address] [place], [place] [address]Dr. Miranda Claudio Hematocrit (Bld) [Volume fraction] 35.1 % Critically low 36.0-48.0 [facility] [place] Comment on above: Performed By: #### C BC ####[facility] [place] [address] [place], [place] [address]Dr. Miranda Claudio Hemoglobin (Bld) [Mass/Vol] 11.7 g/dL Critically low 12.0-16.0 [facility] [place] Comment on above: Performed By: #### C BC ####[facility] [place] [address] [place], [place] [address]Dr. Miranda Claudio IG # 0.05 10e3/ul Critically high 0.00-0.03 [facility] [place] Comment on above: Performed By: #### C BC ####[facility] [place] [address] [place], [place] [address]Dr. Miranda Claudio IG % 0.4 % Normal 0.0-0.5 [facility] [place] Comment on above: Performed By: #### C BC ####[facility] [place] [address] [place] [id number]. Miranda González LYMPH # 1.5 103/ul Normal 1.2-3.8 [facility] [place] Comment on above: Performed By: #### C BC ####[facility] [place] [address] [place] [id number]. Renettadeon Claudio Lymphocytes/100 WBC (Bld) 12.7 % Critically low 20.5-60.0 [facility] [place] Comment on above: Performed By: #### C BC ####[facility] [place] [address] [place] [address]Dr. Miranda Claudio MANUAL DIFF REQ NO Normal [facility] Comment on above: Performed By: #### C BC ####[facility] [place] [address] [place] [address]Dr. Renettadeon Claudio MCH (RBC) [Entitic mass] 26.1 pg Critically low 26.7-34.0 [facility] [place] Comment on above: Performed By: #### C BC ####[facility] [place] [address] [place], [place] [address]Dr. Renettadeon Claudio MCHC (RBC) [Mass/Vol] 33.3 g/dL Normal 29.9-35.2 [facility] [place] Comment on above: Performed By: #### C BC ####[facility] [place] [address] [place] [address]Dr. Miranda Claudio MCV (RBC) [Entitic vol] 78.3 fL Critically low 81.0-99.0 [facility] [place] Comment on above: Performed By: #### C BC ####[facility] [place] [address] [place] [address]Dr. Miranda Claudio MONO # 1.2 103/ul Critically high 0.3-0.8 [facility] Comment on above: Performed By: #### C BC ####[facility] [place] [address] [place] [address]Dr. Miranda Claudio Monocytes/100 WBC (Bld) 10.5 % Normal 1.7-12.0 [facility] [place] Comment on above: Performed By: #### C BC ####[facility] [place] [address] [place], [place] [address]Bh. Miranda Claudio NEUT # 8.3 103/ul Critically high 1.4-6.5 [facility] Comment on above: Performed By: #### C BC ####[facility] [place] [address] [place] [id number]. Miranda Claudio Neutrophils/100 WBC (Bld) 71.8 % Normal 43.0-75.0 [facility] [place] Comment on above: Performed By: #### C BC ####[facility] [place] [address] [place] [id number]. Miranda Claudio Platelet mean volume (Bld) [Entitic vol] 8.5 fL Critically low 9.5-13.5 [facility] [place] Comment on above: Performed By: #### C BC ####[facility] [place] [address] [place] [id number]. Miranda Claudio PLT 349 103/ul Normal 150-450 [facility] [place] Comment on above: Performed By: #### C BC ####[facility] [place] [address] [place], [place] [address]Mn. Miranda Claudio RBC 4.48 106/ul Normal 4.20-5.40 [facility] [place] Comment on above: Performed By: #### C BC ####[facility] [place] [address] [place] [id number]. Miranda Claudio WBC 11.6 103/ul Critically high 4.0-11.0 [facility] Comment on above: Performed By: #### C BC ####[facility] [place] [address] [place] [id number]. Miranda Claudio Covid-19 PCR ([facility]on SARS-CoV-2 (COVID-19) RNA LARY+probe Ql (Unsp spec) Not detected Normal NOT DETECTED [facility] [place] Comment on above: Result Comment: When diagnostic [...] for this test is supported by the Appeals Assistant of Health and Human Service's declaration [...] used). Performed By: #### C VDTB #### [facility] [place] [facility] [address] [place] [address] Dr. Miranda Claudio ER URINE PROFILEon 2 Bilirubin Ql (U) Negative Normal NEGATIVE [facility] Comment on above: Performed By: #### E RUR #### [facility] [place] [facility] [address] [place] [address] Dr. Miranda Claudio Clarity (U) CLEAR Normal CLEAR [facility] [place] Comment on above: Performed By: #### E RUR #### [facility] [place] [facility] [address] [place] [address] Dr. Miranda Claudio Color (U) LT. YELLOW Normal YELLOW [facility] Comment on above: Performed By: #### E RUR #### [facility] [place] [facility] [address] [place] [address] Dr. Miranda WICK A micrscopic examination will be performed if indicated. Normal [facility] [place] Comment on above: Performed By: #### E RUR #### [facility] [place] [facility] [address] [place] [address] Dr. Miranda Claudio Glucose Ql (U) Negative Normal NEGATIVE [facility] Comment on above: Performed By: #### E RUR #### [facility] [place] [facility] [address] [place] [address] Dr. Miranda Claudio Hemoglobin Ql (U) Negative Normal NEGATIVE [facility] Comment on above: Performed By: #### E RUR #### [facility] [place] [facility] [address] [place] [address] Dr. Miranda Claudio Ketones Ql (U) Negative Normal NEGATIVE [facility] Comment on above: Performed By: #### E RUR #### [facility] [place] [facility] [address] [place] [address] Dr. Miranda Claudio LEUKOCYTES Negative Normal NEGATIVE [facility] Comment on above: Performed By: #### E RUR #### [facility] [place] [facility] [address] [place] [address] Dr. Miranda Claudio Nitrite Ql (U) Negative Normal NEGATIVE [facility] Comment on above: Performed By: #### E RUR #### [facility] [place] [facility] [address] [place] [address] Dr. Miranda Claudio pH (U) 6.5 [pH] Normal 5-9 [facility] Comment on above: Performed By: #### E RUR #### [facility] [place] [facility] [address] [place] [address] Dr. Miranda Claudio SPEC GRAVITY <=1.005 Abnormal 1.005-<=1.025 [facility] Comment on above: Performed By: #### E RUR #### [facility] [place] [facility] [address] [place] [address] Dr. Miranda Claudio UA PROTEIN Negative Normal NEGATIVE/ TRACE [facility] [place] Comment on above: Performed By: #### E RUR #### [facility] [place] [facility] [address] [place] [address] Dr. Miranda Claudio UR MICRO IND NOT INDICATED Normal [facility] Comment on above: Performed By: #### E RUR #### [facility] [place] [facility] [address] [place] [address] Dr. Miranda Claudio Urobilinogen Qn (U) 0.2 {Muriel'U}/dL Normal 0.2 - 1. 0 [facility] Comment on above: Performed By: #### E RUR #### [facility] [place] [facility] [address] [place] [address] Dr. Miranda Claudio LACTATE/LACTIC ACIDon 2021 Lactate [Moles/Vol] 0.9 mmol/L Normal 0.4-1.9 [facility] Comment on above: Performed By: #### L ACT #### [facility] [place] [facility] [address] [address] [address] Miranda Claudio PROF 14(COMP METB)on 022 Albumin [Mass/Vol] 3.5 g/dL Normal 3.4-5.0 [facility] Comment on above: Performed By: #### C MADM, CMP #### [facility] [place] [facility] [address] [address] [address] Miranda Claudio Albumin/Globulin [Mass ratio] 1.0 {ratio} Normal [facility] Comment on above: Performed By: #### C JASWINDERM, CMP #### [facility] [place] [facility] [address] [address] [address] Miranda Claudio ALP [Catalytic activity/Vol] 73 U/L Normal 46-116 [facility] Comment on above: Performed By: #### C JASWINDERM, CMP #### [facility] [place] [facility] [address] [address] [address] Miranda Claudio ALT [Catalytic activity/Vol] 16 U/L Normal 14-59 [facility] Comment on above: Performed By: #### C JASWINDERM, CMP #### [facility] [place] [facility] [address] [address] [address] Miranda Claudio Anion gap [Moles/Vol] 14.4 mmol/L Normal [facility] Comment on above: Performed By: #### C JASWINDERM, CMP #### [facility] [place] [facility] [address] [address] [address] Miranda Claudio AST [Catalytic activity/Vol] 26 U/L Normal 15-37 [facility] Comment on above: Performed By: #### C MADM, CMP #### [facility] [facility] [place] [facility] [address] [address] [address] Miranda Claudio Bilirubin [Mass/Vol] 0.2 mg/dL Normal 0.2-1.0 [facility] Comment on above: Performed By: #### C MADM, CMP #### [facility] [place] [facility] [address] [address] [address] Miranda Claudio Calcium [Mass/Vol] 8.3 mg/dL Critically low 8.5-10.1 Th [facility] Comment on above: Performed By: #### C MADM, CMP #### [facility] [place] [facility] [address] [address] [address] Miranda Claudio Chloride [Moles/Vol] 93 mmol/L Critically low 98-107 [facility] Comment on above: Performed By: #### C MADM, CMP #### [facility] [place] [facility] [address] [address] [address] Miranda Claudio CO2 [Moles/Vol] 23.5 mmol/L Normal 21.0-32.0 [facility] Comment on above: Performed By: #### C MADM, CMP #### [facility] [place] [facility] [address] [address] [address] Miranda Claudio Creatinine [Mass/Vol] 0.54 mg/dL Critically low 0.55-1.02 [facility] Comment on above: Performed By: #### C MADM, CMP #### [facility] [place] [facility] [address] [address] [address] Miranda Claudio EGFR-AF CAMEROONIAN >60 Normal >=60 [facility] Comment on above: Performed By: #### C MADM, CMP #### [facility] [place] [facility] [address] [address] [address] Miranda Claudio EGFR-NON AF CAMEROONIAN >60 Normal >=60 [facility] Comment on above: Performed By: #### C MADM, CMP #### [facility] [place] [facility] [address] [address] [address] Miranda Claudio Globulin (S) [Mass/Vol] 3.6 g/dL Normal [facility] Comment on above: Performed By: #### C MADM, CMP #### [facility] [place] [facility] [address] [address] [address] Miranda Claudio Glucose [Mass/Vol] 91 mg/dL Normal 74-106 [facility] Comment on above: Performed By: #### C MADM, CMP #### [facility] [place] [facility] [address] [address] [address] Miranda Claudio Potassium [Moles/Vol] 3.9 mmol/L Normal 3.5-5.1 [facility] Comment on above: Performed By: #### C JASWINDERM, CMP #### [facility] [place] [facility] [address] [place], [place] [address] Dr. Miranda Claudio Protein [Mass/Vol] 7.1 g/dL Normal 6.4-8.2 [facility] Comment on above: Performed By: #### C JASWINDERM, CMP #### [facility] [place] [facility] [address] [place], [place] [address] Dr. Miranda Claudio Sodium [Moles/Vol] 127 mmol/L Critically low 136-145 Th [facility] Comment on above: Performed By: #### C JASWINDERM, CMP #### [facility] [place] [facility] [id number] Miranda Claudio Urea nitrogen [Mass/Vol] 8.0 mg/dL Normal 7.0-18.0 [facility] Comment on above: Performed By: #### C JASWINDERM, CMP #### [facility] [place] [facility] [address] [address] [address] Miranda Claudio Urea nitrogen/Creatinine [Mass ratio] 14.8 mg/mg Normal [facility] Comment on above: Performed By: #### C JESS, CMP #### [facility] [place] [facility] [id number] iMranda Claudio TYPE AND SCREENon 03-23-2022 TYPE AND SCREEN Negative Normal [facility] Comment on above: Performed By: #### T NS ####[facility] [place] [address] [place], [place] [address]PjDr. Miranda Claudio NM HEPATOBILIARY SCAN W EFon [...] MESHA CARRASCO Date: 2022-02-23 11:03 Normal [facility] [place] XR shoulder RT min 2V*on XR shoulder RT min 2V* [facility] Main [place] [address] [place] [address] XRay Report Signed Patient: Melanie Espinoza MR#: [id number] 6 : 1955 Acct:[id number] Age/Sex: 66 / F ADM Date: 01/29/22 Loc: [facility] Room: Type: [facility] Attending Dr: Stevenson Corbin MD [...] Ligia Carrasquillo M.D.01/29/2022 2:27 PM Dictation Location: [place] [address] Transcribed By: [facility] 01/29/22 142 Dictated By: Ligia Carrasquillo MD 01/29/22 1425 Signed By: 01/29/22 142 Normal [facility] CBC AUTO DIFFon 01-27-2022 BASO # 0.1 103/ul Normal 0.0-0.1 [facility] Comment on above: Performed By: #### C BC #### [facility] [place] [facility] [address] [address] [address] Miranda Claudio Basophils/100 WBC (Bld) 0.7 % Normal 0.2-2.0 [facility] Comment on above: Performed By: #### C BC #### [facility] [place] [facility] [address] [place] [address] Dr. Miranda Claudio EO # 0.4 103/ul Normal 0.0-0.7 [facility] Comment on above: Performed By: #### C BC #### [facility] [place] [facility] [address] [place] [address] Dr. Miranda Claudio Eosinophils/100 WBC (Bld) 4.0 % Normal 0.9-7.0 [facility] Comment on above: Performed By: #### C BC #### [facility] [place] [facility] [address] [place] [address] Dr. Miranda Claudio Erythrocyte distribution width (RBC) [Ratio] 14.2 % Normal 11.0-15.0 [facility] Comment on above: Performed By: #### C BC #### [facility] [place] [facility] [address] [place] [address] Dr. Miranda Claudio Hematocrit (Bld) [Volume fraction] 39.9 % Normal 36.0-48.0 [facility] Comment on above: Performed By: #### C BC #### [facility] [place] [facility] [address] [place] [address] Dr. Miranda Claudio Hemoglobin (Bld) [Mass/Vol] 13.0 g/dL Normal 12.0-16.0 [facility] Comment on above: Performed By: #### C BC #### [facility] [place] [facility] [address] [place] [address] Dr. Miranda Claudio IG # 0.03 10e3/ul Normal 0.00-0.03 [facility] Comment on above: Performed By: #### C BC #### [facility] [place] [facility] [address] [place] [address] Dr. Miranda Claudio IG % 0.3 % Normal 0.0-0.5 [facility] Comment on above: Performed By: #### C BC #### [facility] [place] [facility] [address] [place] [address] Dr. Miranda Claudio LYMPH # 2.2 103/ul Normal 1.2-3.8 [facility] Comment on above: Performed By: #### C BC #### [facility] [place] [facility] [address] [place] [address] Dr. Miranda Claudio Lymphocytes/100 WBC (Bld) 23.6 % Normal 20.5-60.0 [facility] Comment on above: Performed By: #### C BC #### [facility] [place] [facility] [address] [place] [address] Dr. Miranda Claudio MANUAL DIFF REQ NO Normal [facility] Comment on above: Performed By: #### C BC #### [facility] [place] [facility] [address] [place] [address] Dr. Miranda Claudio MCH (RBC) [Entitic mass] 27.1 pg Normal 26.7-34.0 [facility] Comment on above: Performed By: #### C BC #### [facility] [place] [facility] [address] [place] [address] Dr. Miranda Claudio MCHC (RBC) [Mass/Vol] 32.6 g/dL Normal 29.9-35.2 [facility] Comment on above: Performed By: #### C BC #### [facility] [place] [facility] [address] [place] [address] Dr. Miranda Claudio MCV (RBC) [Entitic vol] 83.1 fL Normal 81.0-99.0 [facility] Comment on above: Performed By: #### C BC #### [facility] [place] [facility] [address] [place] [address] Dr. Miranda Claudio MONO # 0.8 103/ul Normal 0.3-0.8 [facility] [place] Comment on above: Performed By: #### C BC #### [facility] [place] [facility] [address] [place] [address] Dr. Miranda Claudio Monocytes/100 WBC (Bld) 8.5 % Normal 1.7-12.0 [facility] [place] Comment on above: Performed By: #### C BC #### [facility] [place] [facility] [address] [place] [address] Dr. Miranda Claudio NEUT # 5.9 103/ul Normal 1.4-6.5 [facility] [place] Comment on above: Performed By: #### C BC #### [facility] [place] [facility] [address] [address] [address] Miranda Claudio Neutrophils/100 WBC (Bld) 62.9 % Normal 43.0-75.0 [facility] Comment on above: Performed By: #### C BC #### [facility] [place] [facility] [address] [address] [address] Miranda Claudio Platelet mean volume (Bld) [Entitic vol] 7.6 fL Critically low 9.5-13.5 [facility] Comment on above: Performed By: #### C BC #### [facility] [place] [facility] [address] [address] [address] Miranda Claudio PLT 405 103/ul Normal 150-450 [facility] [place] Comment on above: Performed By: #### C BC #### [facility] [place] [facility] [address] [place] [address] Dr. Miranda Claudio RBC 4.80 106/ul Normal 4.20-5.40 [facility] [place] Comment on above: Performed By: #### C BC #### [facility] [place] [facility] [address] [address] [address] Miranda Claudio WBC 9.4 103/ul Normal 4.0-11.0 [facility] Comment on above: Performed By: #### C BC #### [facility] [place] [facility] [address] [place] [address] Dr. Miranda Claudio ER URINE PROFILEon 2 Bilirubin Ql (U) Negative Normal NEGATIVE [facility] Comment on above: Performed By: #### U MICRO, ERUR ####[facility] [place] [address] [address]DrSofía Claudio Clarity (U) CLEAR Normal CLEAR [facility] [place] Comment on above: Performed By: #### U MICRO, ERUR ####[facility] [place] [address] [address]DrSofía Claudio Color (U) LT. YELLOW Normal YELLOW [facility] [place] Comment on above: Performed By: #### U MICRO, ERUR ####[facility] [place] [address] [address]Dr. Miranda GARDUNOD A micrscopic examination will be performed if indicated. Normal [facility] [place] Comment on above: Performed By: #### U MICRO, ERUR ####[facility] [place] [address] [address]Dr. Miranda Claudio Glucose Ql (U) Negative Normal NEGATIVE [facility] Comment on above: Performed By: #### U MICRO, ERUR ####[facility] [place] [address] [address]Dr. Miranda Claudio Hemoglobin Ql (U) TRACE-LYSED Abnormal NEGATIVE [facility] Comment on above: Performed By: #### U MICRO, ERUR ####[facility] [place] [address] [address]Dr. Miranda González Ketones Ql (U) Negative Normal NEGATIVE [facility] Comment on above: Performed By: #### U MICRO, ERUR ####[facility] [place] [address] [address]Dr. Miranda González LEUKOCYTES Negative Normal NEGATIVE [facility] Comment on above: Performed By: #### U MICRO, ERUR ####[facility] [place] [address] [address]Dr. Miranda Claudio Nitrite Ql (U) Negative Normal NEGATIVE [facility] Comment on above: Performed By: #### U MICRO, ERUR ####[facility] [place] [address] [address]Dr. Miranda Claudio pH (U) 7.0 [pH] Normal 5-9 [facility] Comment on above: Performed By: #### U MICRO, ERUR ####[facility] [place] [address] [address]Dr. Miranda Claudio SPEC GRAVITY <=1.005 Abnormal 1.005-<=1.025 [facility] [place] [facility] Comment on above: Performed By: #### U MICRO, ERUR ####[facility] [place] [address] [address]Dr. Miranda González UA PROTEIN Negative Normal NEGATIVE/ TRACE [facility] [place] Comment on above: Performed By: #### U MICRO, ERUR ####[facility] [place] [address] [id number]. Miranda Claudio UR MICRO IND INDICATED Normal [facility] Comment on above: Performed By: #### U MICRO, ERUR ####[facility] [place] [address] [id number] Claudio Urobilinogen Qn (U) 0.2 {Muriel'U}/dL Normal 0.2 - 1. 0 [facility] Comment on above: Performed By: #### U MICRO, ERUR ####[facility] [place] [address] [id number] Claudio PROF 14(COMP METB)on 022 Albumin [Mass/Vol] 3.5 g/dL Normal 3.4-5.0 [facility] Comment on above: Performed By: #### C MP #### [facility] [place] [facility] [address] [address] [address] Miranda Claudio Albumin/Globulin [Mass ratio] 1.0 {ratio} Normal [facility] Comment on above: Performed By: #### C MP #### [facility] [place] [facility] [address] [address] [address] Miranda Claudio ALP [Catalytic activity/Vol] 66 U/L Normal 46-116 [facility] Comment on above: Performed By: #### C MP #### [facility] [place] [facility] [address] [address] [address] Miranda Claudio ALT [Catalytic activity/Vol] 15 U/L Normal 14-59 [facility] Comment on above: Performed By: #### C MP #### [facility] [place] [facility] [address] [address] [address] Miranda Claudio Anion gap [Moles/Vol] 7.1 mmol/L Normal [facility] Comment on above: Performed By: #### C MP #### [facility] [place] [facility] [address] [address] [address] Miranda Claudio AST [Catalytic activity/Vol] 16 U/L Normal 15-37 [facility] Comment on above: Performed By: #### C MP #### [facility] [place] [facility] [address] [address] [address] Miranda Claudio Bilirubin [Mass/Vol] 0.1 mg/dL Critically low 0.2-1.0 [facility] Comment on above: Performed By: #### C MP #### [facility] [place] [facility] [address] [address] [address] Miranda Claudio Calcium [Mass/Vol] 9.1 mg/dL Normal 8.5-10.1 [facility] Comment on above: Performed By: #### C MP #### [facility] [place] [facility] [address] [address] [address] Miranda Claudio Chloride [Moles/Vol] 100 mmol/L Normal 98-107 [facility] Comment on above: Performed By: #### C MP #### [facility] [place] [facility] [address] [place] [address] Dr. Miranda Claudio CO2 [Moles/Vol] 30.7 mmol/L Normal 21.0-32.0 [facility] Comment on above: Performed By: #### C MP #### [facility] [place] [facility] [address] [place] [address] Dr. Miranda Claudio Creatinine [Mass/Vol] 0.64 mg/dL Normal 0.55-1.02 [facility] Comment on above: Performed By: #### C MP #### [facility] [place] [facility] [address] [place] [address] Dr. Miranda Claudio EGFR-AF CAMEROONIAN >60 Normal >=60 [facility] Comment on above: Performed By: #### C MP #### [facility] [place] [facility] [address] [address] [address] Miranda Claudio EGFR-NON AF CAMEROONIAN >60 Normal >=60 [facility] Comment on above: Performed By: #### C MP #### [facility] [place] [facility] [address] [place] [address] Dr. Miranda Claudio Globulin (S) [Mass/Vol] 3.6 g/dL Normal [facility] Comment on above: Performed By: #### C MP #### [facility] [place] [facility] [address] [address] [address] Miranda Claudio Glucose [Mass/Vol] 68 mg/dL Critically low 74-106 Th [facility] Comment on above: Performed By: #### C MP #### [facility] [place] [facility] [address] [address] [address] Miranda Claudio Potassium [Moles/Vol] 3.8 mmol/L Normal 3.5-5.1 [facility] Comment on above: Performed By: #### C MP #### [facility] [place] [facility] [address] [address] [address] Miranda Claudio Protein [Mass/Vol] 7.1 g/dL Normal 6.4-8.2 [facility] Comment on above: Performed By: #### C MP #### [facility] [place] [facility] [address] [address] [address] Miranda Claudio Sodium [Moles/Vol] 134 mmol/L Critically low 136-145 Th [facility] Comment on above: Performed By: #### C MP #### [facility] [place] [facility] [address] [address] [address] Miranda Claudio Urea nitrogen [Mass/Vol] 14.0 mg/dL Normal 7.0-18.0 [facility] Comment on above: Performed By: #### C MP #### [facility] [place] [facility] [address] [address] [address] Miranda Claudio Urea nitrogen/Creatinine [Mass ratio] 21.9 mg/mg Normal [facility] Comment on above: Performed By: #### C MP #### [facility] [place] [facility] [address] [address] [address] Miranda Claudio URINE MICROSCOPIC ONLYon BACTERIA NONE SEEN Normal NONE SEEN [facility] Comment on above: Performed By: #### U MICRO, ERUR ####[facility] [place] [address] [address]Dr. Miranda Claudio Bacteria identified Cx Nom (U) NOT INDICATED Normal [facility] Comment on above: Performed By: #### U MICRO, ERUR ####[facility] [place] [address] [place] [id number]. Miranda Claudio CAST NONE SEEN Normal NONE SEEN [facility] Comment on above: Performed By: #### U MICRO, ERUR ####[facility] [place] [address] [place] [address] [address]Dr. Miranda Claudio Crystals LM Nom (Urine sed) NONE SEEN Normal NONE SEEN [facility] [place] Comment on above: Performed By: #### U MICRO, ERUR ####[facility] [place] [address] [place] [id number]. Miranda Claudio Epithelial cells LM Ql (Urine sed) NONE SEEN Normal NONE SEEN /RARE [facility] [place] Comment on above: Performed By: #### U MICRO, ERUR ####[facility] [place] [address] [place] [address]Dr. Miranda Claudio MUCOUS SMALL Abnormal NONE SEEN [facility] [place] Comment on above: Performed By: #### U MICRO, ERUR ####[facility] [place] [address] [place] [address] [address]Dr. Miranda Claudio RBC 0-2 Normal 0-2 [facility] [place] Comment on above: Performed By: #### U MICRO, ERUR ####[facility] [place] [address] [place] [address] [address]Dr. Renettadeon Claudio WBC NONE SEEN Normal NONE SEEN [facility] [place] Comment on above: Performed By: #### U MICRO, ERUR ####[facility] [place] [address] [address]Dr. Miranda Claudio XR CHEST 1 Von 01-27-2022 [...] CM ROBLES Date: 2022-01-27 20:30 Normal [facility] [place] XR SHOULDER RT 2V or >on XR SHOULDER RT 2V or > IMAGES REVIEWED: XR SHOULDER RT 2V or > COMPARISON: 12/27/2021. CLINICAL INDICATION: Pain FINDINGS/IMPRESSION: 1. No evidence of acute osseous abnormality of the right shoulder. 2. 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 3. Old right rib fractures. 4. Osteopenia. Electronically authenticated by: SARAH MOMIN Date: 2022-01-27 20:42 Normal [facility] XR SCAPULA RTon 12-27-2021 XR SCAPULA [...] by: SANTIAGO HELMS Date: 2021-12-27 12:55 Normal [facility] XR shoulder RT min 2V*on XR shoulder RT min 2V* [facility] Main [place] [address] [place] [address] XRay Report Signed Patient: Melanie Espinoza MR#: [id number] 6 : 1955 Acct:[id number] Age/Sex: 66 / F ADM Date: 12/04/21 Loc: [facility] Room: Type: [facility] Attending Dr: Stevenson Corbin MD [...] Erick Carranza M.D.12/04/2021 2:33 PM Dictation Location: [place] [address] Transcribed By: [facility] 12/04/21 1433 Dictated By: Erick Carranza DO 12/04/21 1426 Signed By: 12/04/21 1433 [facility] XR shoulder RT min 2V*on XR shoulder RT min 2V* [facility] Main [address] [address] XRay Report Signed Patient: Melanie Espinoza MR#: [id number] 6 : 1955 Acct:[id number] Age/Sex: 66 / F ADM Date: 10/26/21 Loc: [facility] Room: Type: [facility] Attending Dr: Stevenson Corbin MD [...] Taylor Jr., D.O.10/26/2021 10:32 AM Dictation Location: [place] [address] Transcribed By: [facility] 10/26/21 103 Dictated By: Tai Taylor Jr, DO 10/26/21 1031 Signed By: 10/26/21 1032 [facility] XR shoulder RT min 2V*on XR shoulder RT min 2V* [facility] Main [address] [address] XRay Report Signed Patient: Melanie Espinoza MR#: [id number] 6 : 1955 Acct:[id number] Age/Sex: 66 / F ADM Date: 10/18/21 Loc: [place] Room: Type: [facility] Attending Dr: Stevenson Corbin MD Copies [...] Ligia Carrasquillo M.D.10/18/2021 11:42 AM Dictation Location: [facility]- Transcribed By: DARYA 10/18/21 1142 Dictated By: Ligia Carrasquillo MD 10/18/21 1139 Signed By: 10/18/21 1142 Normal [facility] SARS-CoV-2 (COVID-19) RNA LARY+probe Ql (Unsp spec) Negative Normal Negative [facility] Comment on above: Order Comment: Healt hcare Worker?: N Result Comment: Testing for SARS-CoV-2 by RT-PCR This test was developed and its performance characteristics determined by [employer] and validated at the [facility]. This test has not been FDA [...] is terminated or revoked sooner. PERFORMED BY: [place] [address] PATHOLOGIST PHP MYSQL DEVELOPER TAYA CRESPO M.D. Performed By: #### C OVID 19 [facility] #### [address] COVID-19 Positive/NegativeOr dered By: Stevenson Corbin on 10-13-2021 SARS-CoV-2 (COVID-19) N gene LARY+probe Ql (Resp) Negative Negative [facility] Comment on above: Testing for SARS-CoV -2 by RT-PCR This test was developed and its performance characteristics determined by [employer] ([employer]) and validated at the [facility]. This test has not been FDA [...] and in the presence of Dr. Manuel Lyster, DO. Please bring all medicines, vitamins, and [...] 2:31:58 PM (more content not included)... Normal [facility] PHQ-2 VITALSon 09-25-2021 Fall risk assessment a) No falls within the last year [facility] [address] DO Work Phone: Tobacco use status [facility] b) No [facility] [place] 250 DO Work Phone: PHQ-2 VITALS [facility] DO Work Phone: COVID-19 [facility] 09-18-2021 SARS-CoV-2 (COVID-19) RNA LARY+probe Ql (Unsp spec) Negative Normal Negative [facility] Comment on above: Order Comment: Healt hcare Worker?: N Result Comment: Testing for SARS-CoV-2 by RT-PCR This test was developed and its performance characteristics determined by [employer] ([employer]) and validated at the [facility]. This test has not been FDA [...] is terminated or revoked sooner. PERFORMED BY: [place] [address] PATHOLOGIST PHP MYSQL DEVELOPER TAYA CRESPO M.D. Performed By: #### C OVID 19 [facility] #### [address] COVID-19 Positive/NegativeOr dered By: Stevenson Corbin on 09-18-2021 SARS-CoV-2 (COVID-19) N gene LARY+probe Ql (Resp) Negative Negative [facility] Comment on above: Testing for SARS-CoV -2 by RT-PCR This test was developed and its performance characteristics determined by [employer] ([place]) and validated at the [facility]. This test has not been FDA [...] LSPINE WO CON EXAM: CT LSPINE WO C ON, CT TSPINE WO CON HISTORY: DORSALGIA, UNSPECIFIED [...] JEFE SAEED Date: 2021-08-22 02:25 Normal [facility] [place] HIP LEFT 1 OR 2 VWS WITH PEL VISon 01-26-2021 HIP LEFT 1 OR 2 VWS WITH PELVIS [facility] Department of Radiology [address] [place], [place] [id number] ===== Patient Name: MELANIE ESPINOZA : 1955 Sex: [...] LEFT 1 OR 2 VWS WITH PELVIS ===== HIP LEFT 1 OR 2 VWS WITH [...] spine and bilateral hip joints. Approved by:Oriana Arringtonn1 10:52 AM. I, Marisela Reveles,have reviewed the image(s) and agree with the findings in this report. Electronically signed: Marisela Reveles. Transcribed by: [email or web address], User Resident: ORIANA REILLY Electronically Signed by: MARISELA REVELES @ 01/27/2021 12:26 PM I personally read this/these film(s) with this resident Normal [facility] Comment on above: Order Comment: Evalu ate HIP LEFT 1 OR 2 VWS WITH PEL VISon 09-15-2020 HIP LEFT 1 OR 2 VWS WITH PELVIS [facility] Department of Radiology [address] [place] [address] ===== Patient Name: MELANIE ESPINOZA : 1955 Sex: F Age: Race: White Pt. Location: 84 Patient Status: O Ordered Date: 09/15/2020 12:40:00 PM Completed Date: 09/15/2020 12:40 PM Requesting Provider: HERVE STARKEY Attending Provider: DARÍO PORRAS Report Copy To: Signs & Symptoms: M25.552 Pain in left hip I10 History: Comments: evaluate Exam: HIP LEFT 1 OR 2 VWS WITH PELVIS ===== EXAMINATION: HIP LEFT 1 OR 2 VWS [...] Electronically signed: Jose Armando Kwon. Transcribed by: [email or web address], User Resident: Electronically Signed by: JOSE ARMANDO KWON @ 09/15/2020 08:28 PM Normal [facility] Comment on above: Order Comment: evalu ate RAD - Ultrasound Reporton RAD - Ultrasound Report [id number] D:127 Normal [facility] Ambulatory Clinical Summaryo n 08-30-2020 Ambulatory Clinical Summary {[id number] Normal [facility] Patient Educationon 08-31-19 Patient Education Urology [...] Follow these instructions at home: ? Take rqgh-iip-fnaurcz and prescription medicines only as told by [...] 01/27/2008 Document Revised: 04/12/2018 Document Reviewed: 04/12/2018 [employer] Patient Education ? 2019 [employer]. Aaron Yin [facility] Urology Office/Clinic Noteon 08-30-2020 Urology Office/Clinic [...] Urnls Dip Stick Auto w/o Microscopy POC 41870 I have reviewed the previous health record information and history for this patient from Dr. Go Follow-up With When Contact Information Donavan Bailey MD, Justin Massey, URO Only if needed [facility] [address], [place] [address]- Additional Instructions: Patient Education Hydronephrosis I, Marion [...] 80 mg= 1 (more content not included)... [facility] Comment on above: Result Comment: Elec tronically Signed By: Donavan Bailey MD, Justin Massey\.br\Date and Time Signed: 08/30/20 13:04 EDT\.br\Electronically Co-Signed By: Marion Gibson MA\.br\Date and Time Co-Signed: 08/30/20 12:36 EDT Reminderson 08-22-2020 Reminders - From: Edilma Godoy To: EU - Clinical; Sent: 08/09/2020 11:42:24 EDT Show up: 08/21/2020 11:42:00 EDT Subject: renal US Reminder/Recall scheduled 08/19/20 at [facility]. patient has f/u scheduled 08/30 for results results scanned in today [facility] Ambulatory Clinical Summaryo n 08-09-2020 Ambulatory Clinical Summary {[id number]}CD:[id number] Normal [facility] Formson 08-09-2020 Forms [id number] D:127 Normal [facility] Patient Educationon 08-10-19 21 Patient Education [...] Follow these instructions at home: ? Take ttcj-mwf-vgcmady and prescription medicines only as told by [...] 01/27/2008 Document Revised: 04/12/2018 Document Reviewed: 04/12/2018 [employer] Patient Education ? 2019 [employer] Normal [facility] Urology Office/Clinic Noteon 08-09-2020 Urology Office/Clinic Note Chief Complaint New patient here for left sided hydronephrosis HPI Staff New patient Melanie is a 65 y.o. female referred by [facility] for mild to [...] Urnls Dip Stick Auto w/o Microscopy POC 27261 US Renal Follow-up With When Contact Information Donavan Bailey MD, Justin Massey, URO [facility] [address], [place] [address]- Additional Instructions: after renal u/s Patient Education [...] (at bedtime) (more content not included)... Normal [facility] Comment on above: Result Comment: Elec tronically Signed By: Donavan Bailey MD, Justin Massey\.br\Date and Time Signed: 08/09/20 11:18 EDT\.br\Electronically Co-Signed By: Nadiya Freed MA\.br\Date and Time Co-Signed: 08/09/20 11:07 EDT RAD - CT Reporton 07-12-2020 RAD - CT Report [id number] :127 [facility] Consultation Noteon 07-02-19 Consultation Note [id number] D:127 Normal [facility] HIP LEFT 1 OR 2 VWS WITH PEL VISon 06-16-2020 HIP LEFT 1 OR 2 VWS WITH PELVIS [facility] Department of Radiology [address] [place] [id number] ===== Patient Name: MELANIE ESPINOZA : 1955 Sex: F Age: Race: White Pt. Location: Patient Status: D Ordered Date: 06/16/2020 1:25:00 PM Completed Date: 06/16/2020 01:25 PM Requesting Provider: HERVE STARKEY Attending Provider: HERVE STARKEY Report Copy To: Signs & Symptoms: M25.552 Pain in left hip I10 History: [place] Comments: Views (X-RAY, HIP): AP Hip, Frogleg Lateral Hip Exam: HIP LEFT 1 OR 2 VWS WITH PELVIS ===== HIP LEFT 1 OR 2 VWS WITH [...] complication Electronically signed: Willow Stapleton. Transcribed by: [email or web address], User Resident: Electronically Signed by: WILLOW STAPLETON @ 06/17/2020 08:01 AM Normal [facility] Comment on above: Order Comment: Views (X-RAY, HIP): AP Hip, Frogleg Lateral Hip HIP LEFT 1 OR 2 VWS WITH PEL VISon 2020 HIP LEFT 1 OR 2 VWS WITH PELVIS [facility] Department of Radiology [address] [place] [id number] ===== Patient Name: MELANIE ESPINOZA : 1955 Sex: F Age: Race: White Pt. Location: 84 Patient Status: O Ordered Date: 2020 1:25:00 PM Completed Date: 2020 01:30 PM Requesting Provider: HERVE STARKEY Attending Provider: HERVE STARKEY Report Copy To: Signs & Symptoms: M25.552 Pain in left hip I10 History: Hendley Comments: Exam: HIP LEFT 1 OR 2 VWS WITH PELVIS ===== HIP LEFT 1 OR 2 VWS WITH [...] impaction. Electronically signed: Deion Hernandez. Transcribed by: [email or web address], User Resident: Electronically Signed by: DEION HERNANDEZ @ 2020 04:11 PM Normal [facility] HIP LEFT 1 OR 2 VWS WITH PEL VISon 04-14-2020 HIP LEFT 1 OR 2 VWS WITH PELVIS [facility] Department of Radiology [address] [place] [id number] ===== Patient Name: MELANIE ESPINOZA : 1955 Sex: F Age: Race: White Pt. Location: Patient Status: O Ordered Date: 04/14/2020 9:20:00 AM Completed Date: 04/14/2020 09:27 AM Requesting Provider: HERVE STARKEY Attending Provider: HERVE STARKEY Report Copy To: Signs & Symptoms: M25.552 Pain in left hip I10 History: [place] Comments: Evaluate Exam: HIP LEFT 1 OR 2 VWS WITH PELVIS ===== HIP LEFT 1 OR 2 VWS WITH [...] fracture. Electronically signed: Antonio Bernal. Transcribed by: [email or web address], User Resident: Electronically Signed by: ANTONIO BERNAL @ 04/14/2020 10:04 AM Normal [facility] Comment on above: Order Comment: Evalu ate Coding Summaryon 01-13-2020 Coding Summary CODING DATE: 020 [facility] STATUS: Home PAYOR: Medicaid HMO [...] Nikhil Zamudio Date Saved: 01/13/2020 06:25 pm [facility] Coding Summary CODING DATE: [facility] STATUS: Home PAYOR: Medicaid HMO [...] Nikhil Zamudio Date Saved: 01/13/2020 06:24 pm [facility] Coding Summary CODING DATE: [facility] STATUS: Home PAYOR: Medicaid HMO [...] Nikhil Zamudio Date Saved: 01/13/2020 06:24 pm [facility] ED Clinical Summaryon [address] [facility] - Emergency Department [address] [place] [address] ED Clinical Summary PERSON INFORMATION Name: MELANIE ESPINOZA Age: 64 Years Sex: FEMALE : 1955 MRN: Acct#: Visit Reason: Hernia; ABD PAIN Arrival: 01/09/2020 15:42:54 Discharge: 01/09/2020 16:20:00 LOS: 000 00:38 Check In: 01/09/2020 15:42:54 Checkout:01/09/2020 16:20:00 Address: [place] [address] PCP: ESTEBAN GARZA PROVIDER INFORMATION Provider Role [...] Hernia Follow-Up: With: Address: When: Calvin Aguilar [address] [place] [address], [address] [place] [phone] [facility] (1) Within 2 to 4 days Comments: [...] hernia; Ventral hernia Patient Understands: Yes - Patient/family/caregive r verbalizes understanding of instructions given Comment: [facility] ED Note - Physicianon 2019 ED Note [...] Reviewed as documented in chart. Surgical history: Esophagogastroduodenosc opy ([id number]) on 01/17/2018 at 62 Years., Reviewed as [...] Impression and Plan Diagnosis Incarcerated ventral hernia (TUA90-KV K43.6, Discharge, Medical) Ventral hernia (FGH50-PJ K43.9, Discharge, Medical) Plan Condition: Improved, Stable. [...] on: 01/12/2020 15:09 EDT] Wade Hassan MD [facility] ED Note-Nursingon 01-09-2020 ED Note-Nursing Pt presents to the E D with a hernia. Pt states increased pain in that area. [facility] ED Patient Education Noteon 01-09-2020 ED Patient [...] increase pressure on your hernia. ? Take ktgd-luk-beysehw and prescription medicines only as told by [...] Reviewed: 10/21/2017 Elsevier Patient Education ? 2020 [employer] [address] [facility] ED Patient Summaryon 01-08- [address] [facility] - Emergency Department [address] [place], [place] [id number] PATIENT DISCHARGE INSTRUCTIONS Patient Information Name: MELANIE ESPINOZA Age: 64 Years Date of : 1955 Reason For Visit: Hernia; ABD PAIN Arrival Time: 01/09/2020 15:42:54 Primary Care Physician: ESTEBAN GARZA Attending Physician: Wade Hassan MD Comment: Visit Diagnosis: Diagnoses This Visit Hernia ([id number]) Incarcerated ventral hernia (K43.6) Ventral hernia (K43.9) Prescription Information: If you have been given a prescription for narcotics, seek immediate medical attention if you have any difficulty breathing or any sudden status changes such as confusion and sleepiness. If you or anyone you know is experiencing suicidal thoughts, mental health, alcohol and/or drug addiction problems; contact the [facility] 05/11 Crisis Hotline -text 4HOTT qx 220944. If you received any narcotics, sedation, or [...] legal documents With: Address: When: Calvin Aguilar [address] [place] [address], [place] [phone] Business (1) Within 2 to 4 days [...] and treatment you received today in the [facility] Emergency Department were for an urgent problem and are not intended as complete care. It is important for you to follow up with a doctor, nurse practitioner, or physician?s liaison inspection laboratory assistant for ongoing care. If your symptoms [...] so we can reach you if necessary. [facility] Emergency Department has provided you with a complete list of medications post discharge. Please inform your net lead developer/provider of your visit and for further instruction [...] increase pressure on your hernia. ? Take harf-alz-xmuicdq and prescription medicines only as told by [...] 03/18/2013 Document Revised: 05/14/2018 Document Reviewed: 10/21/2017 [email or web address] Patient Education ? 2019 [employer]nis. Viruses or Bacteria What?s got you sick? [...] for Disease Control and Prevention December 2013 [facility] Coding Summaryon 09-24-2019 Coding Summary CODING DATE: 020 [facility] STATUS: Home PAYOR: Medicaid HMO [...] Carine Ferraro Date Saved: 09/24/2019 03:29 pm [facility] .Thyroglobulin by SKYLAR LCon 0 09-23-2019 Thyroglobulin by SKYLAR LC 13.6 ng/mL 1.5-38.5 [facility] Comment on above: Result Comment: According to [...] is 0.1 ng/mL Thyroglobulin measured by Fina Odessa Immunometric Assay Performed At: [address] [id number] Bebo Jeter PhD Ph:[phone] Performed By: #### 2 [id number], [id number], [id number], [id number], [id number], [id number] ####[facility] (DEFAULT)[address] [place] [address] Provider Orderson 09-23-2019 Provider Orders [id number] TGTIFF Normal [facility] T3 Free LCon 09-23-2019 Triiodothyronine,Fr ee,Serum LC 2.0 pg/mL 2.0-4.4 [facility] Comment on above: Result Comment: Perf ormed At: [address] [id number] Bebo Jeter PhD Ph:[phone] Performed By: #### 2 [id number], [id number], [id number], [id number], [id number], [id number] #### [facility] (DEFAULT) [address] [place] [address] Thyroglobulin Reflex Profile LCon 09-23-2019 Thyroglobulin Antibody LC <1.0 0.0-0.9 [facility] Comment on above: Result Comment: Thyr oglobulin Antibody measured by Fina Odessa Methodology Performed At: [address] [id number] Bebo Jeter PhD Ph:[phone] Performed By: #### 2 [id number], [id number], [id number], [id number], [id number], [id number] ####[facility] (DEFAULT)[address] [place] [address] Thyroid Peroxidase (TPO) Ab LCon 09-23-2019 Thyroid Peroxidase (TPO) Ab LC <9 0-34 [facility] Comment on above: Result Comment: Perf ormed At: [address] [id number] Bebo Jeter PhD Ph:[phone] Performed By: #### 2 [id number], [id number], [id number], [id number], [id number], [id number] #### [facility] (DEFAULT) [address] [place] [address] Free T4on 09-22-2019 Free T4 [Mass/Vol] 0.90 ng/dL Normal 0.61-1.12 [facility] Comment on above: Result Comment: Spec imens that contain high levels of Biotin may cause false high results Performed By: #### 2 [id number], [id number], [id number], [id number], [id number], [id number] #### [facility] (DEFAULT) [address] [place] [address] TSHon 09-22-2019 TSH Qn 2.07 mcIU/mL Normal 0.45-5.33 [facility] Comment on above: Result Comment: Gene ral Population (males and non- females, aged 21-88) 0.45 - 5.33 Females, 1st Trimester 0.05 - 3.70 Females, 2nd Trimester 0.31 - 4.35 Females, 3rd Trimester 0.41 - 5.18 Performed By: #### 2 [id number], [id number], [id number], [id number], [id number], [id number] #### [facility] (DEFAULT) [address] [place] [address] Coding Summaryon 06-18-2019 Coding Summary CODING DATE: 020 [facility] STATUS: Home PAYOR: Medicaid HMO [...] Ferraro Date Saved: 06/18/2019 01:[address] [facility] US Thyroidon 06-17-2019 US Thyroid EXAM: US [...] Huntley MD 06/17/19 4:26 pm Technologist: KRISTINA [facility] Provider Orderson 06-16-2019 Provider Orders [id number] [facility] Coding Summaryon 05-29-2019 Coding Summary CODING DATE: 020 [facility] STATUS: Home PAYOR: Medicaid HMO [...] Deb Law Date Saved: 05/29/2019 12:32 pm [facility] Provider Orderson 05-28-2019 Provider Orders [id number] [facility] XR Chest 2 Viewson 0 XR Chest 2 Views EXAM: XR Chest 2 Vie ws HISTORY: SOB (R06.02) remote smoking history COMPARISON: 05/04/2016 TECHNIQUE: PA and lateral views of the chest were obtained. FINDINGS: Heart and mediastinal contours are unremarkable in appearance. No acute infiltrate or consolidations are seen. Mild degenerative changes in the dorsal spine. IMPRESSION: No acute process seen in the chest. Final Dictated by: Vincent Huntley MD Dictated DT/TM: 05/27/19 3:22 Signed (Electronic Signature): Vincent Huntlye MD 05/27/19 4:03 pm Technologist: Anatoliy SETH [facility] Vital Signs Date Time Vital Sign Value Performing Clinician Facility 11-12-2023 10:53-0400 Body mass index (BMI) [Ratio] 16.83 kg/m2 Tai Hinojosa MD Work Phone: [facility] 11-12-2023 10:53-0400 Body weight 43.09 kg Tai Hinojosa MD Work Phone: [facility] 11-12-2023 10:53-0400 Diastolic blood pressure 80 mm[Hg] Tai Hinojosa MD Work Phone: [facility] 11-12-2023 10:53-0400 Heart rate 72 /min Tai Hinojosa MD Work Phone: [facility] 11-12-2023 10:53-0400 SaO2% (BldA) [Mass fraction] 93 % Tai Hinojosa MD Work Phone: [facility] 11-12-2023 10:53-0400 Systolic blood pressure 136 mm[Hg] Tai Hinojosa MD Work Phone: [facility] 07-13-2023 20:20-0400 Body mass index (BMI) [Ratio] 16.65 kg/m2 Alexey Furlong DO Work Phone: [facility] 07-13-2023 20:20-0400 Body weight 42.64 kg Alexey Furlong DO Work Phone: [facility] 07-13-2023 20:20-0400 Diastolic blood pressure 62 mm[Hg] Alexey Furlong DO Work Phone: [facility] 07-13-2023 20:20-0400 Systolic blood pressure 122 mm[Hg] Alexey Furlong DO Work Phone: [facility] [employer] 06-12-2023 18:10-0500 Body mass index (BMI) [Ratio] 16.93 kg/m2 Alexey Furlong DO Work Phone: [facility] 06-12-2023 18:10-0500 Body temperature 97.9 [degF] Alexey Furlong DO Work Phone: [facility] 06-12-2023 18:10-0500 Body weight 43.36 kg Alexey Furlong DO Work Phone: [facility] [employer] 06-12-2023 18:10-0500 Diastolic blood pressure 84 mm[Hg] Alexey Furlong DO Work Phone: [facility] 06-12-2023 18:10-0500 Heart rate 96 /min Alexey Furlong DO Work Phone: [facility] 06-12-2023 18:10-0500 Respiratory rate 18 /min Alexey Furlong DO Work Phone: [facility] [employer] 06-12-2023 18:10-0500 SaO2% (BldA) [Mass fraction] 95 % Alexey Furlong DO Work Phone: [facility] [employer] 06-12-2023 18:10-0500 Systolic blood pressure 166 mm[Hg] Alexey Furlong DO Work Phone: [facility] [employer] 05-14-2023 12:12-0500 Body mass index (BMI) [Ratio] 16.97 kg/m2 Alexey Furlong DO Work Phone: [facility] [employer] 05-14-2023 12:12-0500 Body temperature 99.61 [degF] Alexey Furlong DO Work Phone: [facility] [employer] 05-14-2023 12:12-0500 Body weight 43.45 kg Alexey Furlong DO Work Phone: [facility] [employer] 05-14-2023 12:12-0500 Diastolic blood pressure 77 mm[Hg] Alexey Furlong DO Work Phone: [facility] [employer] 05-14-2023 12:12-0500 Heart rate 82 /min Alexey Furlong DO Work Phone: [facility] [employer] 05-14-2023 12:12-0500 Respiratory rate 18 /min Alexey Furlong DO Work Phone: [facility] [employer] 05-14-2023 12:12-0500 SaO2% (BldA) [Mass fraction] 95 % [facility]long DO [facility] 05-14-2023 12:12-0500 Systolic blood pressure 129 mm[Hg] Alexey Furlong DO [facility] 04-14-2023 22:23-0500 Body mass index (BMI) [Ratio] 17.47 kg/m2 Alexey Furlong DO [facility] 04-14-2023 22:23-0500 Body temperature 97.9 [degF] Alexey Furlong DO Work Phone: [facility] [employer] 04-14-2023 22:23-0500 Body weight 44.73 kg Alexey Furlong DO Work Phone: [facility] [employer] 04-14-2023 22:23-0500 Diastolic blood pressure 64 mm[Hg] Alexey Furlong DO [facility] 04-14-2023 22:23-0500 Systolic blood pressure 132 mm[Hg] Alexey Furlong DO [facility] 01-29-2022 12:15-0400 Body height 161.29 cm Stevenson Corbin Other [employer] Other 01-02-2022 08:47-0400 Body weight 49.9 kg Tai Hinojosa MD Work Phone: [facility] 01-02-2022 08:47-0400 Diastolic blood pressure 77 mm[Hg] Tai Hinojosa MD Work Phone: [facility] 01-02-2022 08:47-0400 Heart rate 68 /min Tai Hinojosa MD Work Phone: [facility] 01-02-2022 08:47-0400 SaO2% (BldA) [Mass fraction] 96 % Tai Hinojosa MD Work Phone: [facility] 01-02-2022 08:47-0400 Systolic blood pressure 128 mm[Hg] Tai Hinojosa MD Work Phone: [facility] 12-06-2021 15:00-0400 Body height 161.29 cm Sena Jabier Other [employer] Other 12-06-2021 15:00-0400 Body temperature 98 [degF] Sena Jabier Other [employer] Other 12-06-2021 15:00-0400 Diastolic blood pressure 85 mm[Hg] Sena Jabier Other [employer] Other 12-06-2021 15:00-0400 Respiratory rate 18 /min Sena Jabier Other [employer] Other 12-06-2021 15:00-0400 SaO2% (BldA) [Mass fraction] 96 % Sena Jabier Other [employer] Other 12-06-2021 15:00-0400 Systolic blood pressure 157 mm[Hg] Sena Jabier Other [employer] Other 10-18-2021 12:35-0400 Diastolic blood pressure 58 mm[Hg] MD Stevenson Corbin Work Phone: [facility] 10-18-2021 12:35-0400 Heart rate 64 /min MD Stevenson Corbin Work Phone: [facility] 10-18-2021 12:35-0400 Respiratory rate 16 /min MD Stevenson Corbin Work Phone: [facility] 10-18-2021 12:35-0400 SaO2% (BldA) [Mass fraction] 95 % MD Stevenson Corbin Work Phone: [facility] 10-18-2021 12:35-0400 Systolic blood pressure 146 mm[Hg] MD Stevenson Corbin Work Phone: [facility] 10-18-2021 12:19-0400 Body height 160.02 cm MD Stevenson Corbin Work Phone: [facility] 10-18-2021 12:19-0400 Body mass index (BMI) [Ratio] 18.1 kg/m2 MD Stevenson Corbin Work Phone: [facility] 10-18-2021 12:19-0400 Body weight 46.6 kg MD Stevenson Corbin Work Phone: [facility] 10-18-2021 11:35-0400 Inhaled oxygen flow rate 2 L/min MD Stevenson Corbin Work Phone: [facility] 10-18-2021 10:53-0400 Body temperature 97.1 [degF] MD Stevenson Corbin Work Phone: [facility] 09-25-2021 14:35-0400 Diastolic blood pressure 78 mm[Hg] Alexey Garcia Furlong Work Phone: [facility] [employer] 250 DO Work Phone: 09-25-2021 14:35-0400 Systolic blood pressure 162 mm[Hg] Alexey Garcia Furlong Work Phone: [facility] [employer] 250 DO Work Phone: 09-25-2021 14:32-0400 Body height 160.02 cm Alexey G Furlong Work Phone: [facility] [employer] 250 DO Work Phone: 09-25-2021 14:32-0400 Body mass index (BMI) [Ratio] 18.42 kg/m2 Alexey G Furlong Work Phone: [facility] [employer] [employer] 250 DO Work Phone: 09-25-2021 14:32-0400 Body surface area Derived from formula 1.46 m2 Alexey G Furlong Work Phone: [facility] [employer] 250 DO Work Phone: 09-25-2021 14:32-0400 Body weight 47.17 kg Alexey Jose Furlong Work Phone: [facility] [employer] 250 DO Work Phone: 09-25-2021 14:32-0400 Diastolic blood pressure 90 mm[Hg] Alexey G Furlong Work Phone: [facility] [employer] 250 DO Work Phone: 09-25-2021 14:32-0400 Heart rate 83 /min Alexey G Furlong Work Phone: [facility] [employer] 250 DO Work Phone: 09-25-2021 14:32-0400 Systolic blood pressure 168 mm[Hg] Alexey G Furlong Work Phone: [facility] [employer] 250 DO Work Phone: 09-13-2021 12:08-0400 Body height 160.02 cm MD Stevenson Corbin Work Phone: [facility] 09-13-2021 12:08-0400 Body mass index (BMI) [Ratio] 18.6 kg/m2 MD Stevenson Corbin Work Phone: [facility] 09-13-2021 12:08-0400 Body weight 47.8 kg MD Stevenson Corbin Work Phone: [facility] 05-30-2021 09:45-0500 Body height 161.29 cm Stevenson Olexa Other [employer] Other 05-30-2021 09:45-0500 Body mass index (BMI) [Ratio] 16.39 kg/m2 Stevenson Olexa Other [employer] Other 05-30-2021 09:45-0500 Body weight 42.64 kg Stevenson Olexa Other [employer] Other 03-22-2021 14:00-0500 Body height 161.29 cm Radha Bosch Other [employer] Other 03-22-2021 14:00-0500 Body mass index (BMI) [Ratio] 16.56 kg/m2 Radha Bosch Other [employer] Other 03-22-2021 14:00-0500 Body temperature 98.2 [degF] Radha Bosch Other [employer] Other 03-22-2021 14:00-0500 Body weight 43.09 kg Radha Bosch Other [employer] Other 03-22-2021 14:00-0500 Diastolic blood pressure 60 mm[Hg] Radha Bosch Other [employer] Other 03-22-2021 14:00-0500 Respiratory rate 18 /min Radha Bosch Other [employer] Other 03-22-2021 14:00-0500 SaO2% (BldA) [Mass fraction] 96 % Radha Bosch Other [employer] Other 03-22-2021 14:00-0500 Systolic blood pressure 140 mm[Hg] Radha Bosch Other [employer] Other Encounters Encounter Date Encounter Type Care Provider Facility Start: 12-07-2023 Evaluation and manag ement of inpatient [facility] Start: 12-06-2023 Evaluation and manag ement of inpatient [facility] Start: 12-06-2023 End: 12-10-2023 Evaluation and management of inpatient [facility] Start: 11-28-2023 Encounter for preprocedural laboratory examination [facility] Start: 11-28-2023 End: 11-28-2023 ambulatory [facility] Start: 11-28-2023 ambulatory [facility] Start: 11-12-2023 End: 11-12-2023 ambulatory TAI HINOJOSA Facility:[facility] Start: 11-12-2023 End: 11-12-2023 Patient encounter procedure Tai Hinojosa MD Work Phone: Neurology Comment on above: Lingual facial bucca l dyskinesia (Primary Dx); Dyskinesia, tardive Start: 11-04-2023 End: 11-04-2023 ambulatory [facility] Start: 11-04-2023 End: 11-04-2023 Encounter for other preprocedural examination [facility] Start: 09-18-2023 Encounter for other preprocedural examination [facility] Start: 09-18-2023 End: 09-18-2023 ambulatory [facility] Start: 08-26-2023 End: 08-27-2023 ambulatory [facility] Start: 08-26-2023 End: 08-26-2023 ambulatory BLANDON Jose [facility] Start: 08-26-2023 Encounter for preprocedural cardiovascular examination [facility] Start: 07-12-2023 ambulatory Alexey gtz DO Work Phone: [facility] Comment on above: Primary osteoarthrit is of left hip (Primary Dx); Primary hypertension Start: 07-04-2023 ambulatory [facility] Start: 06-28-2023 ambulatory Satya Liao RN [facility] Comment on above: MARVIN VINES RN ( Medication Adherence review per request of payer) Start: 06-12-2023 ambulatory Alexey gtz DO Work Phone: [facility] Comment on above: Primary osteoarthrit is of left hip (Primary Dx); Tardive dyskinesia; Primary hypertension Start: 05-21-2023 End: 05-21-2023 ambulatory [facility] Start: 05-21-2023 End: 05-21-2023 ambulatory [facility] Start: 05-14-2023 End: 05-14-2023 Continuing Care [...] Hyposmolality syndrome; Movement disorder Start: 04-04-2023 ambulatory [facility] Start: 03-04-2023 End: 03-04-2023 ambulatory HERVE A JAKY [facility] Start: 01-08-2023 End: 01-08-2023 ambulatory ESTEBAN GARZA Facility:[facility] Start: 06-18-2022 Office outpatient vi sit 15 minutes Stevenson Forddimitris [facility] Start: 06-18-2022 End: 06-18-2022 ambulatory Stevenson Forddimitris Facility:[facility] Start: 06-18-2022 End: 06-18-2022 ambulatory DO Alexey Polo Work Phone: [facility] Work Phone: Start: 06-18-2022 End: 06-18-2022 Patient encounter procedure DO Alexey Pedersonleeann Work Phone: [facility] Start: 06-04-2022 End: 06-04-2022 ambulatory LENA HAMEED . Facility:[facility] Start: 04-19-2022 End: 04-19-[address] EVA POOLE . Facility:[facility] Start: 03-23-2022 End: 03-23-[address] ERICK BERG . Facility:[facility] Start: 02-23-2022 End: 02-24-[address] ALEXEY POLO Facility:[facility] Start: 01-29-2022 Office outpatient vi sit 15 minutes Stevenson Corbin [facility] Start: 01-29-2022 End: 01-29-2022 ambulatory Stevenson Corbin [employer] Other Start: 01-27-2022 End: 01-28-[address] EMMA GO Facility:[facility] Start: 01-02-2022 End: 01-02-2022 Patient encounter procedure Tai Hinojosa MD Work Phone: Neurology Comment on above: Lingual facial bucca l dyskinesia (Primary Dx); Dyskinesia, tardive; Dyskinesia, orofacial; Excessive physiologic tremor Start: 12-27-2021 End: 12-27-[address] ALEXEY POLO Facility:[facility] Start: 12-06-2021 End: 12-06-2021 ambulatory Sena Eugene Other [employer] Other Start: 12-06-2021 Office outpatient vi sit 15 minutes Sena Eugene [facility] Start: 12-04-2021 Postop follow up vis it related to original px Stevenson Olexa [facility] Start: 12-04-2021 End: 12-04-2021 ambulatory Stevenson Olexa [employer] Other Start: 12-04-2021 End: 12-04-2021 Patient encounter procedure MD Stevenson Corbin Work Phone: [facility] Start: 11-01-2021 End: 11-01-2021 ambulatory Stevenson Olexa Other [employer] Other Start: 11-01-2021 Telephone encounter Stevenson Corbin [facility] Start: 10-26-2021 Postop follow up vis it related to original px Stevenson Olexa [facility] Start: 10-26-2021 End: 10-26-2021 ambulatory Stevenson Olexa [employer] Other Start: 10-26-2021 End: 10-26-2021 Patient encounter procedure MD Stevenson Corbin Work Phone: [facility] Start: 10-18-2021 End: 10-18-2021 ambulatory Stevenson Olexa Facility:[facility] Start: 10-18-2021 End: 10-18-2021 Admission to same day surgery center MD Stevenson Corbin Work Phone: [facility] [place] Start: 10-17-2021 End: 10-17-2021 ambulatory Stevenson Olexa Other [employer] Other Start: 10-17-2021 Telephone encounter Stevenson Corbin [facility] Start: 10-13-2021 End: 10-13-2021 ambulatory Stevenson Olexa Facility:[facility] Start: 10-13-2021 End: 10-13-2021 Patient encounter procedure MD Stevenson Corbin Work Phone: [facility] Start: 10-09-2021 End: 10-09-2021 Patient encounter procedure MD Stevenson Corbin Work Phone: [facility] Start: 09-25-2021 Office consultation new/estab patient 60 min Alexey Polo Work Phone: [facility] [address] DO Work Phone: Start: 09-20-2021 End: 09-20-2021 ambulatory Stevenson Corbin Facility:[facility] Start: 09-20-2021 End: 09-20-2021 Departed Referred MD Stevenson Corbin Work Phone: [facility] [place] Start: 09-18-2021 Telephone encounter Stevenson Corbin [facility] Start: 09-18-2021 End: 09-18-2021 ambulatory Stevenson Corbin [facility] [employer] Other Start: 09-18-2021 End: 09-18-2021 Patient encounter procedure MD Stevenson Corbin Work Phone: [facility] Start: 09-13-2021 End: 09-13-2021 ambulatory Stevenson Corbin Facility:[facility] Start: 08-22-2021 End: 08-22-[address] ALEXEY POLO Facility:[facility] Start: 07-12-2021 Telephone encounter Tai johnson MD Work Phone: Neurology Comment on above: Insurance Authorizat ion Start: 06-29-2021 End: 06-30-[address] ALEXEY POLO Facility:[facility] Start: 05-30-2021 End: 05-30-2021 ambulatory Stevenson Corbin Other [facility] [employer] Other Start: 05-30-2021 Office outpatient ne w 30 minutes Stevenson Corbin [facility] Start: 03-22-2021 End: 03-22-2021 ambulatory Radha Bosch Other [facility] [employer] Other Start: 03-22-2021 Office outpatient vi sit 15 minutes Radha SHIELDS [facility] Start: 06-16-2020 End: 06-17-2020 ambulatory HERVE STARKEY Facility:[facility] Patient encounter status Alexey Polo Work Phone: [facility] DO Work Phone: Procedures Date Procedure [...] Td Vaccines (3 - Td or Tdap) [employer] Start: 12-28-2030 Urine microalbumin profile DTaP,Tdap,Td Vaccine (3 - Td or Tdap) [facility] Start: 05-19-2025 Diabetes Screening Diabetes Screenin g [facility] Start: 06-12-2024 Adult BMI Screening Adult BMI Screen ing [facility] Start: 05-15-2024 End: 05-15-2024 Patient encounter procedure 05/15/2024 11:30 AM EST Office Visit Neurology [address] [place] [address] Tai Hinojosa MD [address] [place], [place] [id number] Return in about 6 months (around 05/14/2024). Neurology Comment on above: Return in about 6 mo nths (around 05/14/2024). Start: 05-14-2024 Adult BMI Screening Adult BMI Screen ing [facility] Start: 04-14-2024 Adult BMI Screening Adult BMI Screen ing [facility] Start: 03-12-2024 Adult BMI Screening Adult BMI Screen ing [facility] Start: 03-12-2024 Tobacco Screening Tobacco Screening [facility] Start: 12-26-2023 Pneumococcal Vaccine : 65+ (3 of 3 - PPSV23 or PCV20) Pneumococcal Vaccine: 65+ (3 of 3 - PPSV23 or PCV20) [facility] Start: 12-15-2023 Influenza vaccination Influenza Vacc ine (#1) [facility] Start: 04-15-2023 Advance Directive Discussion Advance Directive Discussion [facility] Start: 04-15-2023 Depression Assessment Depression Ass essment [facility] Start: 12-14-2022 Covid-19 Vaccine ( season) Covid-19 Vaccine ( season) [facility] Start: 12-14-2022 COVID-19 Vaccine ( season) COVID-19 Vaccine ( season) [facility] Start: 12-14-2022 Covid-19 Vaccine ( season) Covid-19 Vaccine ( season) [facility] Start: 12-14-2022 Influenza vaccination P [facility] Start: 12-14-2021 Influenza vaccination INFLUENZA (#1) [facility] Start: 12-04-2021 Plain X-ray of right shoulder XR shoulder RT min 2V* [facility] Start: 12-04-2021 End: 12-04-2021 Patient encounter procedure Departed Clinical [facility] Start: 10-18-2021 End: 10-18-2021 [facility] Work Phone: Start: 09-20-2021 Prosthetic total arthroplasty of right shoulder OR Shoulder Arthroplasty-Total (Right) [facility] Start: 08-08-2021 Adult depression screening assessment DEPRESSION SCREENING [facility] Start: 04-15-2021 ADVANCE DIRECTIVE DISCUSSION ADVANCE DIRECTIVE DISCUSSION [facility] Start: 2020 BONE DENSITY BONE DENSITY [facility] Start: 2020 Fall Risk Screening Fall Risk Screen ing [facility] Start: 2020 PNEUMOCOCCAL: 65+ (1 - PCV) PNEUMOCOCCAL: 65+ (1 - PCV) [facility] Start: 2020 Screening for osteoporosis Bone Density Screening [facility] Start: 2015 RSV Vaccine (1 - 1-d ose 60+ series) RSV Vaccine (1 - 1-dose 60+ series) [facility] Start: 2005 SHINGRIX VACCINE (1 of 2) SHINGRIX VACCINE (1 of 2) [facility] Start: 2000 COLOGUARD (FIT-DNA) COLOGUARD (FIT-D NA) [facility] Start: 2000 Colonoscopy COLONOSCOPY [facility] Start: 2000 COLORECTAL CANCER SCREENING COLORECTAL CANCER SCREENING [facility] Start: [address] COLONOGRAPHY [facility] Start: 2000 DIABETES SCREEN DIABETES SCREEN [facility] Start: 2000 FECAL OCCULT BLOOD FECAL OCCULT BLOO D [facility] Start: 2000 Lipid panel Lipid Screening [facility] Start: 2000 LIPID SCREEN LIPID SCREEN [facility] Start: 2000 Screening for malign ant neoplasm of colon [facility] Start: 2000 SIGMOIDOSCOPY SIGMOIDOSCOPY [facility] Start: 1995 Mammography MAMMOGRAM [facility] Start: 1995 Screening for malign ant neoplasm of breast Mammogram Screening [facility] Start: 1974 Urine microalbumin profile DTAP,TDAP,TD (1 - Tdap) [facility] Start: 1973 Adult BMI Follow Up Plan Adult BMI F ollow Up Plan [facility] Start: 1973 Anxiety Screening Anxiety Screening [facility] Start: 1973 Depression Screening Depression Scre ening [facility] Start: 1973 HEPATITIS C SCREENING HEPATITIS C [facility] Start: 1973 Hepatitis C screening Hepatitis C [facility] Start: 1967 Depression Screening Depression Scre ing [facility] Start: 1955 COVID-19 VACCINE (#1) COVID-19 VACCI NE (#1) [facility] Start: 1955 Medicare Annual Well ness Visit Medicare Annual Wellness Visit [facility] Immunizations Immunization Date Immunization Notes Care Provider [facility] 03-26-2021 Pfizer-BioNTech COVID-19 Vacc 30 MCG/0.3ML Intramuscular Suspension Alexey Polo Work Phone: [facility] 01-10-2021 Fluzone High-Dose Quadrivalent 0.7 ML Intramuscular Suspension Prefilled Syringe Alexey Polo Work Phone: [facility] 01-10-2021 influenza virus vaccine, unspecified formulation Alexey Polo DO Work Phone: [facility] 12-28-2020 diphtheria, tetanus toxoids and pertussis vaccine Alexey Polo Work Phone: [facility] 07-14-2020 Pfizer-BioNTech COVID-19 Vacc 30 MCG/0.3ML Intramuscular Suspension Alexey Bradfordng Work Phone: [facility] 06-28-2020 tetanus toxoid, redu anne diphtheria toxoid, and acellular pertussis vaccine, adsorbed Alexey Polo Work Phone: [facility] 06-23-2020 Pfizer-BioNTech COVID-19 Vacc 30 MCG/0.3ML Intramuscular Suspension Alexey Bradfordng Work Phone: [facility] 04-11-2020 zoster vaccine recombinant Satya Liao RN [facility] 12-19-2019 influenza, injectabl e, quadrivalent, preservative free Alexeyconcepción Pedersonlong Work Phone: [facility] 12-15-2019 influenza, seasonal, injectable Alexey Furlong DO Work Phone: [facility] 10-28-2019 zoster vaccine recombinant Alexey G Furlong Work Phone: [facility] 02-25-2019 zoster vaccine recombinant Alexey G Furlong Work Phone: [facility] 12-25-2018 influenza, injectabl e, quadrivalent, preservative free Alexey G Furlong Work Phone: [facility] 12-25-2018 pneumococcal conjuga te vaccine, 13 valent Alexey G Furlong Work Phone: [facility] 12-20-2017 influenza, injectabl e, quadrivalent, preservative free Alexey G Furlong Work Phone: [facility] 12-14-2016 influenza virus vaccine, unspecified formulation Alexey Furlong DO Work Phone: [facility] 12-14-2016 influenza, injectabl e, quadrivalent, preservative free Alexey G Furlong Work Phone: [facility] 11-20-2015 influenza, seasonal, injectable, preservative free Alexey G Furlong Work Phone: [facility] [employer] DO Work Phone: 11-20-2015 pneumococcal polysaccharide vaccine, 23 valent Alexey G Furlong Work Phone: [facility] [employer] [address] DO Work Phone: 11-20-2015 zoster vaccine, live Alexey G Furlong Work Phone: [facility] [employer] [address] DO Work Phone: 12-31-2014 influenza, seasonal, injectable, preservative free Alexey G Furlong Work Phone: [facility] NEGATED: Highlighted row has not occurred!05-19-2022 pneumococcal polysaccharide vaccine, 23 valent Alexey Polo DO Work Phone: [facility] Payers Date Payer Category Payer Medicare [id number] 2021 Self-pay [id number] 2020 Medicare [id number] 2013 Medicaid [id number] 1959 Medicaid [id number] 1959 Medicare [id number] 1955 Unknown [id number] 2.16.8 40.1.428139.3.579.2.647 1955 Unknown [id number] 2.16.84 0.1.429543.3.579.2.593 1955 Unknown [id number] 2.16.84 0.1.006798.3.579.2.593 1955 Unknown [id number] 2.16.84 0.1.099679.3.579.2.593 1955 Unknown [id number] 2.16.84 0.1.504149.3.579.2.593 1955 Unknown [id number] 2.16.84 0.1.737236.3.579.2.593 1955 Unknown [id number] 2.16.84 0.1.018367.3.579.2.593 1955 Unknown [id number] 2.16.84 0.1.577638.3.579.2.593 1955 Unknown [id number] 2.16.84 0.1.070762.3.579.2.593 1955 Unknown [id number] 2.16.8 40.1.373532.3.579.2.1286 1955 Unknown [id number] 2.16.8 40.1.760189.3.579.2.1286 1955 Unknown [id number] 2.16.8 40.1.658600.3.579.2.1286 1955 Unknown [id number] 2.16.8 40.1.353729.3.579.2.1286 Unknown Unknown [id number] 2.16.8 40.1.512819.3.579.2.531 Unknown [id number] 2.16.8 40.1.105067.3.579.2.531 Unknown [id number] 2.16.8 40.1.616131.3.579.2.531 Unknown [id number] 2.16.8 40.1.554794.3.579.2.531 Unknown [id number] 2.16.8 40.1.777378.3.579.2.531 Unknown [id number] 2.16.8 40.1.991063.3.579.2.531 Unknown [id number] 2.16.8 40.1.247620.3.579.2.531 Unknown [id number] 2.16.8 40.1.909064.3.579.2.531 Unknown [id number] 2.16.8 40.1.810664.3.579.2.531 Social History Date Type Detail Facility Start: 02-18-2023 End: 05-14-2023 Daily caffeine consumption Daily caffeine consumption [facility] Comment on above: 1-2 cups of coffee d aily. Occas iced tea. Diet coke ocassional; Quit in ; Start: 03-12-2023 End: 05-14-2023 Sex Assigned At [facility] Start: 10-18-2021 End: 01-08-2023 Tobacco smoking status HIIS Ex-smoker (finding) [facility] Start: 1955 Sex Assigned At Female F [facility] End: 07-21-2017 History of tobacco use Current smoker [facility] End: 07-21-2017 History of tobacco use Cigarette Smoker [facility] Start: 07-21-2018 End: 01-08-2023 Tobacco use and exposure Smokeless tobacco non-user [facility] Start: 08-10-2020 End: 11-12-2023 Alcohol intake Lifetime non-drinker (finding) [facility] Start: 07-21-2018 History SDOH Alcohol Frequency 1 [facility] Start: 1955 Sex Assigned At Not on file C [facility] Start: 12-23-2021 End: 01-02-2022 Exposure to SARS-CoV-2 (event) Not sure [facility] Start: 03-12-2023 Alcohol intake Current non-dr clock smith of alcohol (finding) [facility] Housing Instability Unknown [facility] Start: 03-23-2022 Tobacco Comment Quit in the S, STARTED AGE 18 [facility] History of tobacco use Passive smoker [facility] How often to you hav e a drink containing alcohol? Never [facility] Work Phone: Medical Equipment Procedure Code Equipment Code Equipment Origin al Text Equipment Identifier Dates Arthroplasty, shoulder, total Total reverse shoulder prosthesis ()[id number] FDA Start: 10-18-2021 Arthroplasty, shoulder, total Total reverse shoulder prosthesis ()[id number] [id number] FDA Start: 10-18-2021 Arthroplasty, shoulder, total Total reverse shoulder prosthesis ()[id number] [id number])[id number] 83 FDA Start: 10-18-2021 Arthroplasty, shoulder, total Total reverse shoulder prosthesis ()[id number] 17)[id number])21.007 57 FDA Start: 10-18-2021 Arthroplasty, shoulder, total Total reverse shoulder prosthesis ()[id number] 17)[id number])21.024 16 FDA Start: 10-18-2021 Arthroplasty, shoulder, total Total reverse shoulder prosthesis ()[id number] [id number] FDA Start: 10-18-2021 Arthroplasty, shoulder, total Total reverse shoulder prosthesis ()[id number] [id number] FDA Start: 10-18-2021 Arthroplasty, shoulder, total Total reverse shoulder prosthesis ()[id number] 17)[id number] FDA Start: 10-18-2021 Arthroplasty, shoulder, total Total reverse shoulder prosthesis ()[id number] 17)[id number] FDA Start: 10-18-2021 Arthroplasty, shoulder, total Total reverse shoulder prosthesis ()[id number] 17)[id number] FDA Start: 10-18-2021 Mesh Pco Vntrl P tch 4.6cm Rpl [id number] - Sna - [id number] Start: 01-29-2020 Goals Date Patient Goal [...] Evaluation of progress towards goal: return to [facility] Clinical Notes 03-22-2021 to 12-10-2023 Tai Hinojosa MD - 11/12/2023 11:19 AM Penny Polo, DO - 07/12/2023 11:59 PM Satya Wang RN - 06/28/2023 9:59 AM Penny Polo, DO - 06/12/2023 6:10 PM EST Note Date & Type Note Facility 12-10-2023 Note Physical Therapy Physical Therapy Treatment Patient Name: Melanie Espinoza : 1955 Today's Date: 12/10/2023 Time In: 1345 Time Out: 1359 Patient Active Problem List Diagnosis Avascular necrosis of bone of hip, left (CMS/HCC) Movement disorder Acquired hypothyroidism Acute alteration in mental status Anemia Depression Generalized anxiety disorder Generalized muscle weakness Hiatal hernia Hydronephrosis Hypocalcemia Hypoglycemia Hypokalemia Hypophosphatemia Chronic hyponatremia Leg swelling Primary osteoarthritis Multifactorial gait disorder Nausea and vomiting Osteoarthritis of left hip Pain of left hip joint Primary hypertension Rectal prolapse S/P reverse total shoulder arthroplasty, right SIADH (syndrome of inappropriate ADH production) ([facility]) Tardive dyskinesia Abnormal cardiovascular stress test Atherosclerosis of [place] coronary artery of [place] heart without angina pectoris 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 General Family/Caregiver Present: No Subjective: Pt supine in bed upon arrival, agreeable to PT. Performed bed mobility, transfers, and minimal ambulation this date. Up in recliner chair with chair alarm on, call light/tray nearby, and PT needs met piror to exit. RN/aide aware Vision - Basic Vision - Basic Assessment Current Vision: Wears glasses all the time Activity Tolerance Activity Tolerance Endurance: Stage II Stage II (METs 1.4-2.0) - Sittin-10 mins Activity Tolerance Comments: Pt able to tolerate all functional mobility this date without SOB noted. Mild fatigue noted Precautions Precautions LE Weight Bearing Status: Left, WBAT Medical Precautions: fall risk, bed/chair alarm, telemetry Post-Surgical Precautions: anterior NICOLASA precautions Pain Pain Assessment Pain Assessment: No/denies pain Pain Score: 0 - No pain Cognition Cognition Overall Cognitive Status: Within Functional Limits Following Commands: Follows all commands and directions without difficulty Communication: Intact General Assessment General Assessment Hearing: WFL Skin Integrity: dressing right hip Static Sitting Balance Static Sitting Balance Static Sitting-Balance Support: No upper extremity supported, Feet supported Static Sitting-Level of Assistance: Distant supervision Static Sitting-Comment/Number of Minutes: EOB Dynamic Sitting Balance Dynamic Sitting Balance Dynamic Sitting-Balance Support: No upper extremity supported, Feet supported Dynamic Sitting-Balance: Forward lean, Reaching for objects Dynamic Sitting Balance-Level of Assistance: Close supervision Dynamic Sitting-Comments: Reaching for RW Static Standing Balance Static Standing Balance Static Standing-Balance Support: With device (RW) Static Standing-Level of Assistance: Contact guard Dynamic Standing Balance Dynamic Standing Balance Dynamic Standing-Balance Support: With device (RW) Dynamic Standing Balance-Level of Assistance: Contact guard Treatment: Therapeutic Activity Therapeutic Activity Time Entry: 14 Therapeutic Activity 1: bed mobility: sup to sit Therapeutic Activity 2: transfers: STS bed, chair Therapeutic Activity 3: ambulation: bed to chair Ambulation Ambulation: Yes Ambulation 1 Surface 1: Level tile Device 1: Rolling walker Assistance 1: Contact guard Quality of Gait 1: Pt able to take few small steps from bed to chair with increased time/effort. Decreased kadie and stride length. Comments/Distance (ft) 1: 2-3 ft Stairs Stairs: No Bed Mobility Bed Mobility: Yes Bed Mobility 1 Bed Mobility From 1: Supine Bed Mobility Type 1: To Bed Mobility to 1: Short sit Level of Assistance 1: Minimum assistance Bed Mobility Comments 1: Eric/CAT OPERATOR to progress trunk Transfers Transfer: Yes Transfer 1 Transfer From 1: Bed, Sit Transfer Type 1: To Transfer to 1: Chair with arms, Sit Technique 1: Sit to stand, Stand to sit Transfer Device 1: rolling walker Transfer Level of Assistance 1: Contact guard Outcome Assessments 6 Clicks (Mobility) Help from another person turning from your back to your side while in a flat bed without using bedrails: A little Help from another person moving from lying on your back to sitting on the side of a flat bed without using bedrails: A little Help from another person moving to and from a bed to a chair (including a wheelchair): A little Help from another person standing up from a chair using your arms (e.g. wheelchair or bedside chair): A little Help from another person to walk in hosp (more content not included)... [facility] 12-10-2023 Note Patient has [facility] [place] home plan-no precert required. OTM notified. [facility] 12-10-2023 Note Attestation signed by Jasmina Espinosa MD at 12/12/2023 7:33 AM I saw and examined patient at bedside with . I agree with assessment and plan below. She has no complaints today, Na level is stable. Nephrology Progress Patient : Melanie Espinoza; 68 y.o. Location: 6109/6109-01 Attending: Ernesto Plaza MD Admit Date: 12/06/2023 Hospital Day: 4 Reason for Consult: Management of hyponatremia. History of Present Illness: Melanie Espinoza is a 68 y.o. female with past medical history of GERD, anemia, CAD, hypothyroidism, major depressive disorder, osteopenia, chronic hyponatremia. Patient is admitted under orthopedic surgery for elective hip arthroplasty due to avascular necrosis. Nephrology consulted for management of chronic hyponatremia. On review of chart patient has chronic hyponatremia for long time secondary to hypothyroidism. Patient is not on thiazide diuretics, she is taking sodium chloride 1 g tablet daily. Patient also has a history of hypertension for which she is on Toprol-XL 25 mg p.o. daily. Patient during our evaluation was sleeping she complained of feeling tired and fatigue. Most recent BMP showed sodium 127, potassium 3.8, CO2 23, BUN 17, creatinine 0.39. Review of Systems: Input/Output: I/O last 3 completed shifts: In: 2019 (40.8 mL/kg) [P.O.:1920; IV Piggyback:100] Out: 550 (11.1 mL/kg) [Urine:550 (0.3 mL/kg/hr)] Weight: 49.5 kg Vital Signs: Temperature: Temp: 36.5 ???C (97.7 ???F) TMax: Temp (24hrs), Av.8 ???C (98.3 ???F), Min:36.5 ???C (97.7 ???F), Max:37.3 ???C (99.1 ???F) Respirations: Resp: 18 Pulse: Heart Rate: 77 BP: BP: 120/50 BP Range: Systolic (24hrs), Av , Min:100 , Max:120 Diastolic (24hrs), Av, Min:48, Max:86 Wt Readings from Last 3 Encounters: 12/10/23 49.5 kg (109 lb 2 oz) 11/28/23 45.4 kg (100 lb) 09/18/23 39.9 kg (88 lb) Physical Examination: Physical Exam Vitals and nursing note reviewed. Constitutional: Appearance: Normal appearance. She is underweight. HENT: Head: Normocephalic and atraumatic. Cardiovascular: Rate and Rhythm: Normal rate. Heart sounds: No murmur heard. Pulmonary: Effort: Pulmonary effort is normal. No respiratory distress. Abdominal: General: There is no distension. Musculoskeletal: General: Normal range of motion. Cervical back: Neck supple. Right lower leg: No edema. Left lower leg: No edema. Skin: General: Skin is dry. Psychiatric: Mood and Affect: Mood normal. Labs: Chemistry: Lab Results Component Value Date NA 132 (L) 12/10/2023 NA 132 (L) 12/10/2023 K 3.3 (L) 12/10/2023 CL 101 12/10/2023 CO2 24 12/10/2023 CO2 27 03/07/2020 ANIONGAP 10 12/10/2023 BUN 6 (L) 12/10/2023 CREATININE 0.29 (L) 12/10/2023 EGFR 116.4 12/10/2023 GLU 89 03/07/2020 CALCIUM 7.3 (L) 12/10/2023 MG 1.8 05/18/2022 PHOS 3.5 03/03/2020 VITD25 19.5 (L) 03/02/2020 Hematology & Iron studies: Lab Results Component Value Date WBC 20.49 (H) 12/07/2023 HGB 12.1 12/07/2023 HCT 37.6 12/07/2023 MCV 88.7 12/07/2023 PLT 651 (H) 12/07/2023 Urine chemistry: Lab Results Component Value Date PROTUR Negative 11/28/2023 NAUR 13 12/08/2023 Urinalysis & Microscopy: Lab Results Component Value Date COLORU Straw (A) 11/28/2023 CLARITYU Clear 11/28/2023 SPECGRAVU 1.006 (L) 11/28/2023 BAILEY 6.0 11/28/2023 PROTUR Negative 11/28/2023 LEUKOCYTESU Negative 11/28/2023 NITRITEU Negative 11/28/2023 GLUCOSEU Negative 11/28/2023 KETONESU Negative 11/28/2023 BLOODU Negative 11/28/2023 Urine Eosinophils: No components found for: UEOS Serology & Other labs: BNP: No results found for: BNP SANDI: No results found for: SANDI SPEP:No results found for: PROT UPEP: No components found for: LABPE C3: No results found for: C3 C4: No results found for: C4 MPO ANCA: No components found for: MPO PR3 ANCA: No components found for: PR3 Anti-GBM: No components found for: GBMABIGG Hep BsAg: No results found for: HEPBSAG Hep C AB: No results found for: HEPCAB Outpatient Medications & Allergies: Medication Documentation Review Audit Reviewed by Angela Leigh RN (Registered Nurse) on 12/06/23 at 1440 Medication Order Taking? Sig Documenting Provider Last Dose Status alendronate (Fosamax) 70 mg tablet [id number] No Take 1 tablet by mouth 1 (one) time per week. Historical ProviderMD Past Week Active aspirin 81 mg chewable tablet [id number] No Chew 1 tablet (81 mg) in the morning. Leonie Joya MD Past Week Active atorvastatin (Lipitor) 40 mg tablet [id number] Yes Take 1 tablet by mouth in the evening. Historical ProviderMD 12/05/2023 Active atorvastatin (Lipitor) 40 mg tablet [id number] Take 1 tablet (40 mg) by mouth in the morning. Dionicio Gardner MD 12/04/23 2359 A (more content not included)... [facility] 12-10-2023 Note GIM Inpatient Progre ss Note Patient - Melanie Espinoza Age - 68 y.o. - 1955 Date of Admission - 12/06/2023 5:42 AM Interval history Patient was seen and examined at bedside this morning. Hemodynamically stable and afebrile. Saturating well on room air. Denied chest pain, SOB, cough, abdominal pain or change in bowel habits. Vitals height is 1.6 m (5' 3 ) and weight is 49.5 kg (109 lb 2 oz). Her oral temperature is 36.5 ???C (97.7 ???F). Her blood pressure is 120/50 and her pulse is 77. Her respiration is 18 and oxygen saturation is 100%. Temp: [36.5 ???C (97.7 ???F)-37.3 ???C (99.1 ???F)] 36.5 ???C (97.7 ???F) Heart Rate: [77-86] 77 Resp: [18] 18 BP: (100-120)/(48-86) 120/50 Weight: Admission weight: 41.5 kg (91 lb 7.9 oz) Wt Readings from Last 1 Encounters: 12/10/23 49.5 kg (109 lb 2 oz) Input/Output: Intake/Output Summary (Last 24 hours) at 12/10/2023 1036 Last data filed at 12/10/2023 1004 Gross per 24 hour Intake 1780 ml Output 550 ml Net 1230 ml Physical Examination: General: Well-appearing, in no acute distress Head: Normocephalic, atraumatic. HEENT: No scleral icterus. Oral mucosa is moist without erythema, lesions, or ulcerations. Pulm: Clear to auscultation. No audible wheezing, rales, or rhonchi. Breathing is non-labored. Cardiac: Regular rate, regular rhythm. Normal S1/S2. No appreciable murmurs, gallops, or rubs. GI: Abdomen is soft, non-distended, non-tender. Ext: No peripheral edema. Neuro: Alert and oriented x 3. Lab Results Results from last 7 days Lab Units 12/07/23 0549 WBC AUTO 10*3/uL 20.49* HEMOGLOBIN g/dL 12.1 HEMATOCRIT % 37.6 PLATELETS AUTO 10*3/uL 651* Results from last 7 days Lab Units 12/10/23 0524 12/09/23202512/09/23 0550 12/08/23 1933 12/08/23 0522 SODIUM mmol/L 132* 132* 129* 130* < > 127* POTASSIUM mmol/L 3.3* -- 3.3* -- 3.8 CHLORIDE mmol/L 101 -- 99 -- 93* CO2 mmol/L 24 -- 23 -- 23 BUN mg/dL 6* -- 10 -- 17 CREATININE mg/dL 0.29* -- 0.37* -- 0.39* GLUCOSE mg/dL 99 -- 104* -- 103* CALCIUM mg/dL 7.3* -- 7.6* -- 8.0* < > = values in this interval not displayed. No lab exists for component: TOTALPROTEI , LABBILIRUBIN , TOTALBILIRUB , BILIRUB , BILIRUBIND Lab Results Component Value Date HGBA1C 5.4 11/28/2023 No lab exists for component: TROPI , TROPONIN No lab exists for component: ABGPH , ABGPCO2 , ABGPO2 , ABGHCO3 , ABGBASEDEFIC , [id number] , ABGOXYGENSOU No lab exists for component: LACTICACID , PROCALCITON No lab exists for component: CHOLHDL No results found for: WBCU , UROBILINOGEN Radiology CT hip left wo IV contrast Result Date: 05/21/2023 Severe left hip osteoarthritis with secondary to prior fracture and deformity as described above. No acute osseous injury suggested on CT assessment. Pelvic fluid appears to relate to severe urinary bladder distention. This is not completely assessed. Electronically signed: Scooby Kelly. CT pelvis wo IV contrast Result Date: 05/21/2023 Severe left hip osteoarthritis with acetabular and femoral deformity consistent with previous avascular necrosis. Urinary bladder distention. Electronically signed: Scooby Kelly. No MRI head results found for the past 12 months XR chest 1 view Result Date: 12/07/2023 1. No focal airspace disease, pleural effusion, pneumothorax. 2. Normal cardiomediastinal silhouette. 3. Remote rib fractures. Hiatal hernia may be present. There may be there is slight distention of the esophagus or trachea, chest CT would better evaluate Electronically signed: Chris Rhodes MD. Medications Scheduled: acetaminophen, 1,000 mg, oral, q8h aspirin, 325 mg, oral, BID atorvastatin, 40 mg, oral, Daily busPIRone, 15 mg, oral, BID docusate sodium, 100 mg, oral, BID doxycycline, 100 mg, oral, BID ferrous sulfate, 325 mg, oral, Daily with breakfast gabapentin, 300 mg, oral, BID gabapentin, 600 mg, oral, Nightly levETIRAcetam, 500 mg, oral, BID levothyroxine, 75 mcg, oral, Daily metoprolol succinate XL, 25 mg, oral, Daily mirtazapine, 15 mg, oral, Nightly Oxygen Therapy, , inhalation, Continuous pantoprazole, 40 mg, oral, Daily before breakfast polyethylene glycol, 17 g, oral, Daily primidone, 50 mg, oral, BID sodium chloride, 1 g, oral, BID with meals tetrabenazine, 12.5 mg, oral, Daily traZODone, 100 mg, oral, Nightly Infusions: As Needed: PRN medications: clonazePAM, cyclobenzaprine, melatonin, ondansetron ODT OR ondansetron, oxyCODONE OR oxyCODONE ASSESSMENT: Left hip conversion to total hip arthroplasty secondary to 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 [facility] 12-10-2023 Note 12/10/23 0911 Post Acute Info Authorization started for SNF () [facility] When was authorization started? 12/10/23 What time was authorization started? 0911 Reference number for submission ([id number]) How are we submitting authorization Manual What insurance are we submitting through [facility] Submitted precert request for [facility], OTM to follow. [facility] 12-10-2023 Note Attestation signed by Ernesto Plaza MD at 12/15/2023 9:44 AM I didn't personally see or examine the patient on the date of the encounter, I personally discussed with the Resident Cm Lyon MD. I agree with the resident's documentation. Orthopaedic Surgery Orthopaedic Surgery Progress Note Date: 12/10/2023 Surgery: 12/06/2023 - LEFT HIP CONVERSION TO TOTAL HIP ARTHROPLASTY ANTERIOR APPROACH (L) SUBJECTIVE/24h events: NAEON. Pain well controlled. Na 132. Neurology looking into causes of hyponatremia given meds. She is hopeful for DC back to facility this PM. Has been ambulating well. Denies weakness, numbness, tingling. OBJECTIVE BP 120/50 (Patient Position: Lying) Pulse 77 Temp 36.5 ???C (97.7 ???F) (Oral) Resp 18 Ht 1.6 m (5' 3 ) Wt 49.5 kg (109 lb 2 oz) SpO2 100% BMI 19.33 kg/m??? General: A/O x3, resting comfortably in bed, cooperative MSK: LLE - dressing CDI - Compartments soft / compressible - SILT in superficial peroneal, deep peroneal, sural, saph nerve dist - Motor function intact in tibial, deep peroneal, superficial peroneal dist - Brisk capillary refill Labs: Lab Results Component Value Date WBC 20.49 (H) 12/07/2023 HGB 12.1 12/07/2023 HCT 37.6 12/07/2023 MCV 88.7 12/07/2023 PLT 651 (H) 12/07/2023 CRP 4.3 03/02/2020 Lab Results Component Value Date GLU 89 03/07/2020 CALCIUM 7.3 (L) 12/10/2023 NA 132 (L) 12/10/2023 NA 132 (L) 12/10/2023 K 3.3 (L) 12/10/2023 CO2 24 12/10/2023 CL 101 12/10/2023 BUN 6 (L) 12/10/2023 CREATININE 0.29 (L) 12/10/2023 Lab Results Component Value Date INR 0.96 11/28/2023 Results from last 7 days Lab Units 12/07/23 1236 12/06/23 0904 CULTURE -- No growth at 4 days ANAEROBIC CULTURE -- No anaerobes isolated at day 3 BLOOD CULTURE No growth at 2 days No growth at 2 days -- GRAM STAIN RESULT -- Few Polymorphonuclear leukocytes No organisms seen Imaging: X-rays demonstrating: appropriately placed acetabular cup with screws in maintained trajectory. Femoral stem without compication. Overall appropriately placed conversion L total hip prosthesis. ASSESSMENT: Melanie Espinoza is a 68 y.o. female with Left hip osteolysis. 4 Days Post-Op LEFT HIP CONVERSION TO TOTAL HIP ARTHROPLASTY ANTERIOR APPROACH (L) PLAN Weightbearing as tolerated LLE Abx: 24hrs Ancef, DC one week Doxy DVT ppx: ASA 325mg daily PT/OT Pain control: multimodal Vitamin D / Calcium supplementation Medicine for Tremors/electrolyte abnormalities/optimization. -Anticipating DC back to SNF today pending PT, Neuro, IMS recommendations. Cm Lyon MD Orthopaedic Surgery, PGY-4 Ortho Pager [phone] 12/10/23 7:51 AM [facility] 12-09-2023 Note Attestation signed by Jasmina Espinosa MD at 12/12/2023 7:27 AM I saw and examined patient at bedside with , I agree with assessment and plan below. Nephrology Progress Patient : Melanie Espinoza; 68 y.o. Location: 6109/6109-01 Attending: Ernesto Plaza MD Admit Date: 12/06/2023 Hospital Day: 3 Reason for Consult: Management of hyponatremia. History of Present Illness: Melanie Espinoza is a 68 y.o. female with past medical history of GERD, anemia, CAD, hypothyroidism, major depressive disorder, osteopenia, chronic hyponatremia. Patient is admitted under orthopedic surgery for elective hip arthroplasty due to avascular necrosis. Nephrology consulted for management of chronic hyponatremia. On review of chart patient has chronic hyponatremia for long time secondary to hypothyroidism. Patient is not on thiazide diuretics, she is taking sodium chloride 1 g tablet daily. Patient also has a history of hypertension for which she is on Toprol-XL 25 mg p.o. daily. Patient during our evaluation was sleeping she complained of feeling tired and fatigue. Most recent BMP showed sodium 127, potassium 3.8, CO2 23, BUN 17, creatinine 0.39. Review of Systems: Input/Output: I/O last 3 completed shifts: In: 1400 (27.5 mL/kg) [P.O.:1400] Out: - (0 mL/kg) Weight: 51 kg Vital Signs: Temperature: Temp: 37 ???C (98.6 ???F) TMax: Temp (24hrs), Av.4 ???C (99.4 ???F), Min:37 ???C (98.6 ???F), Max:37.8 ???C (100 ???F) Respirations: Resp: 17 Pulse: Heart Rate: 70 BP: BP: 112/59 BP Range: Systolic (24hrs), Av , Min:106 , Max:112 Diastolic (24hrs), Av, Min:57, Max:62 Wt Readings from Last 3 Encounters: 12/09/23 51 kg (112 lb 7 oz) 11/28/23 45.4 kg (100 lb) 09/18/23 39.9 kg (88 lb) Physical Examination: Physical Exam Vitals and nursing note reviewed. Constitutional: Appearance: Normal appearance. She is underweight. HENT: Head: Normocephalic and atraumatic. Cardiovascular: Rate and Rhythm: Normal rate. Heart sounds: No murmur heard. Pulmonary: Effort: Pulmonary effort is normal. No respiratory distress. Abdominal: General: There is no distension. Musculoskeletal: General: Normal range of motion. Cervical back: Neck supple. Right lower leg: No edema. Left lower leg: No edema. Skin: General: Skin is dry. Psychiatric: Mood and Affect: Mood normal. Labs: Chemistry: Lab Results Component Value Date NA 130 (L) 12/09/2023 K 3.3 (L) 12/09/2023 CL 99 12/09/2023 CO2 23 12/09/2023 CO2 27 03/07/2020 ANIONGAP 11 12/09/2023 BUN 10 12/09/2023 CREATININE 0.37 (L) 12/09/2023 EGFR 109.8 12/09/2023 GLU 89 03/07/2020 CALCIUM 7.6 (L) 12/09/2023 MG 1.8 05/18/2022 PHOS 3.5 03/03/2020 VITD25 19.5 (L) 03/02/2020 Hematology & Iron studies: Lab Results Component Value Date WBC 20.49 (H) 12/07/2023 HGB 12.1 12/07/2023 HCT 37.6 12/07/2023 MCV 88.7 12/07/2023 PLT 651 (H) 12/07/2023 Urine chemistry: Lab Results Component Value Date PROTUR Negative 11/28/2023 NAUR 13 12/08/2023 Urinalysis & Microscopy: Lab Results Component Value Date COLORU Straw (A) 11/28/2023 CLARITYU Clear 11/28/2023 SPECGRAVU 1.006 (L) 11/28/2023 BAILEY 6.0 11/28/2023 PROTUR Negative 11/28/2023 LEUKOCYTESU Negative 11/28/2023 NITRITEU Negative 11/28/2023 GLUCOSEU Negative 11/28/2023 KETONESU Negative 11/28/2023 BLOODU Negative 11/28/2023 Urine Eosinophils: No components found for: UEOS Serology & Other labs: BNP: No results found for: BNP SANDI: No results found for: SANDI SPEP:No results found for: PROT UPEP: No components found for: LABPE C3: No results found for: C3 C4: No results found for: C4 MPO ANCA: No components found for: MPO PR3 ANCA: No components found for: PR3 Anti-GBM: No components found for: GBMABIGG Hep BsAg: No results found for: HEPBSAG Hep C AB: No results found for: HEPCAB Outpatient Medications & Allergies: Medication Documentation Review Audit Reviewed by Angela Leigh RN (Registered Nurse) on 12/06/23 at 1440 Medication Order Taking? Sig Documenting Provider Last Dose Status alendronate (Fosamax) 70 mg tablet [id number] No Take 1 tablet by mouth 1 (one) time per week. Historical ProviderMD Past Week Active aspirin 81 mg chewable tablet [id number] No Chew 1 tablet (81 mg) in the morning. Leonie Joya MD Past Week Active atorvastatin (Lipitor) 40 mg tablet [id number] Yes Take 1 tablet by mouth in the evening. Historical ProviderMD 12/05/2023 Active atorvastatin (Lipitor) 40 mg tablet [id number] Take 1 tablet (40 mg) by mouth in the morning. Dionicio Gardner MD 12/04/23 2359 [place] 12 mg tablet [id number] Yes Take 12 mg by mouth in the morning and at bedtime. Historical ProviderMD 12/05/2023 Active busPIRone (more content not included)... [facility] 12-09-2023 Note Physical Therapy Physical Therapy Treatment Patient Name: Melanie Espinoza : 1955 Today's Date: 12/09/2023 Patient Active Problem List Diagnosis Avascular necrosis of bone of hip, left (CMS/HCC) Movement disorder Acquired hypothyroidism Acute alteration in mental status Anemia Depression Generalized anxiety disorder Generalized muscle weakness Hiatal hernia Hydronephrosis Hypocalcemia Hypoglycemia Hypokalemia Hypophosphatemia Chronic hyponatremia Leg swelling Primary osteoarthritis Multifactorial gait disorder Nausea and vomiting Osteoarthritis of left hip Pain of left hip joint Primary hypertension Rectal prolapse S/P reverse total shoulder arthroplasty, right SIADH (syndrome of inappropriate ADH production) ([facility]) Tardive dyskinesia Abnormal cardiovascular stress test Atherosclerosis of [place] coronary artery of [place] heart without angina pectoris 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 General Family/Caregiver Present: Yes Subjective: Pt. seen bedside for PT session this a.m. Upon entry, pt. in bed and currently denies pain but does state that pain increases with mobility. Pt. is pleasant and agreeable to activities as able. RN okays session including up to bedside side. Activity Tolerance Activity Tolerance Ambulation comments: Pt. ambulates short distance between EOB and bedside chair (~2') with RW and Min A. Endurance: Stage II Activity Tolerance Comments: Pt. limited by pain with mobility, generalized weakness and overall deconditioning. She did exhibit mild fatigue with mobility, but no SOB. Precautions Precautions LE Weight Bearing Status: Left, WBAT Medical Precautions: fall risk, bed/chair alarm, telemetry Post-Surgical Precautions: anterior NICOLASA precautions Pain Pain Assessment Pain Assessment: No/denies pain (does report pain increases with mobility, but does not rate) Cognition Cognition Overall Cognitive Status: Within Functional Limits Arousal/Alertness: Appropriate responses to stimuli Orientation Level: Oriented X4 Following Commands: Follows multistep commands with increased time Safety Judgment: Good awareness of safety precautions Awareness of Errors: Assistance required to identify errors made Deficits: Decreased awareness of deficits Attention Span: Appears intact Memory: Decreased recall of precautions Problem Solving: Assistance required to identify errors made Communication: Intact Cognition Comments: Pt. is cooperative and motivated to work with therapies. General Assessment General Assessment Skin Integrity: dressing right hip Static Sitting Balance Static Sitting Balance Static Sitting-Balance Support: Right upper extremity supported, Left upper extremity supported, Feet supported Static Sitting-Level of Assistance: Distant supervision Static Sitting-Comment/Number of Minutes: at EOB Dynamic Sitting Balance Dynamic Sitting Balance Dynamic Sitting-Balance Support: Right upper extremity supported, Left upper extremity supported, Feet supported Dynamic Sitting Balance-Level of Assistance: Close supervision Dynamic Sitting-Comments: to scoot to EOB Static Standing Balance Static Standing Balance Static Standing-Balance Support: Right upper extremity supported, Left upper extremity supported, With device (RW) Static Standing-Level of Assistance: Contact guard Static Standing-Comment/Number of Minutes: static stand at EOB Dynamic Standing Balance Dynamic Standing Balance Dynamic Standing-Balance Support: Right upper extremity supported, Left upper extremity supported, With device (RW) Dynamic Standing Balance-Level of Assistance: Minimum assistance Dynamic Standing-Comments: during ambulation Treatment: Therapeutic Exercise Therapeutic Exercise Activity 1: BLE (A/AAROM) ankle pumps, LAQs and marches. Pt. does require some assistance with LLE marches d/t weakness. Ambulation Ambulation: Yes Ambulation 1 Surface 1: Level tile Device 1: Rolling walker Assistance 1: Minimum assistance Quality of Gait 1: Slow, antalgic gait. Short, shuffling steps. Mild unstediness is noted, but no LOB. Comments/Distance (ft) 1: ~2' Stairs Stairs: No Bed Mobility Bed Mobility: Yes Bed Mobility 1 Bed Mobility From 1: Supine Bed Mobility Type 1: To Bed Mobility to 1: Short sit Level of Assistance 1: Minimum assistance (pt only requiring assistance to manage LLE to EOB) Bed Mobility Comments 1: HOB elevated, bedrail raised to assist Transfers Transfer: Yes Transfer 1 Transfer From 1: (more content not included)... [facility] 12-09-2023 Note Attestation signed by Gurpreet Man MD at 12/10/2023 8:22 PM GC: I saw this patient. I personally was physically present for the critical/denton portions that determines the level of service. I was directly involved in the management and treatment plan of the patient. I reviewed Quinn Pascual MD's note and agree with the documentation Reviewed and approved by GURPREET MAN on 12/10/23 at 8:22 PM. GI Inpatient Progress Note Patient - Melanie Esipnoza Age - 68 y.o. - 1955 N - [id number] Date of Admission - 12/06/2023 5:42 AM Interval history Patient was seen and examined at bedside this morning. Hemodynamically stable and afebrile. Saturating well on room air. Denied chest pain, SOB, cough, abdominal pain or change in bowel habits. Patient stated that she is feeling better today with her tremor resolved Vitals height is 1.6 m (5' 3 ) and weight is 51 kg (112 lb 7 oz). Her temperature is 37 ???C (98.6 ???F). Her blood pressure is 112/59 and her pulse is 70. Her respiration is 17 and oxygen saturation is 96%. Temp: [36.4 ???C (97.5 ???F)-37.8 ???C (100 ???F)] 37 ???C (98.6 ???F) Heart Rate: [70-88] 70 Resp: [16-17] 17 BP: (106-119)/(57-76) 112/59 Weight: Admission weight: 41.5 kg (91 lb 7.9 oz) Wt Readings from Last 1 Encounters: 12/09/23 51 kg (112 lb 7 oz) Input/Output: Intake/Output Summary (Last 24 hours) at 12/09/2023 0938 Last data filed at 12/09/2023 0514 Gross per 24 hour Intake 1200 ml Output -- Net 1200 ml Physical Examination: General: Well-appearing, in no acute distress Head: Normocephalic, atraumatic. HEENT: No scleral icterus. Oral mucosa is moist without erythema, lesions, or ulcerations. Pulm: Clear to auscultation. No audible wheezing, rales, or rhonchi. Breathing is non-labored. Cardiac: Regular rate, regular rhythm. Normal S1/S2. No appreciable murmurs, gallops, or rubs. GI: Abdomen is soft, non-distended, non-tender. Ext: No peripheral edema. Neuro: Alert and oriented x 3. Lab Results Results from last 7 days Lab Units 12/07/23 0549 WBC AUTO 10*3/uL 20.49* HEMOGLOBIN g/dL 12.1 HEMATOCRIT % 37.6 PLATELETS AUTO 10*3/uL 651* Results from last 7 days Lab Units 12/08/23 1933 12/08/23 0522 12/07/23 0549 SODIUM mmol/L 128* 127* 125* POTASSIUM mmol/L -- 3.8 4.2 CHLORIDE mmol/L -- 93* 90* CO2 mmol/L -- 23 26 BUN mg/dL -- 17 11 CREATININE mg/dL -- 0.39* 0.45* GLUCOSE mg/dL -- 103* 118* CALCIUM mg/dL -- 8.0* 8.6 No lab exists for component: TOTALPROTEI , LABBILIRUBIN , TOTALBILIRUB , BILIRUB , BILIRUBIND Lab Results Component Value Date HGBA1C 5.4 11/28/2023 No lab exists for component: TROPI , TROPONIN No lab exists for component: ABGPH , ABGPCO2 , ABGPO2 , ABGHCO3 , ABGBASEDEFIC , YEUQ5QCP , ABGOXYGENSOU No lab exists for component: LACTICACID , PROCALCITON No lab exists for component: CHOLHDL No results found for: WBCU , UROBILINOGEN Radiology CT hip left wo IV contrast Result Date: 05/21/2023 Severe left hip osteoarthritis with secondary to prior fracture and deformity as described above. No acute osseous injury suggested on CT assessment. Pelvic fluid appears to relate to severe urinary bladder distention. This is not completely assessed. Electronically signed: Scooby Kelly. CT pelvis wo IV contrast Result Date: 05/21/2023 Severe left hip osteoarthritis with acetabular and femoral deformity consistent with previous avascular necrosis. Urinary bladder distention. Electronically signed: Scooby Kelly. No MRI head results found for the past 12 months XR chest 1 view Result Date: 12/07/2023 1. No focal airspace disease, pleural effusion, pneumothorax. 2. Normal cardiomediastinal silhouette. 3. Remote rib fractures. Hiatal hernia may be present. There may be there is slight distention of the esophagus or trachea, chest CT would better evaluate Electronically signed: Chris Rhodes MD. XR hip left 2 or 3 views Result Date: 12/06/2023 *Status post left hip arthroplasty with no immediate hardware complications. Electronically signed: Good Mcginnis MD. Medications Scheduled: acetaminophen, 1,000 mg, oral, q8h aspirin, 325 mg, oral, BID atorvastatin, 40 mg, oral, Daily busPIRone, 15 mg, oral, BID docusate sodium, 100 mg, oral, BID doxycycline, 100 mg, oral, BID ferrous sulfate, 325 mg, oral, Daily with breakfast gabapentin, 300 mg, oral, BID gabapentin, 600 mg, oral, Nightly levothyroxine, 75 mcg, oral, Daily metoprolol succinate XL, 25 mg, oral, Daily mirtazapine, 15 mg, oral, Nightly Oxygen Therapy, , inhalation, Continuous pantoprazole, 40 mg, oral, Daily before breakfast polyethylene glycol, 17 g, oral, Daily primidone, 50 mg, oral, BID sodium chloride, 1 g, (more content not included)... [facility] 12-09-2023 Note Attestation signed by Ernesto Plaza MD at 12/09/2023 12:23 PM I personally saw and examined the patient, discussed with the resident Cm Lyon MD, agree with the resident's documentation. Orthopaedic Surgery Orthopaedic Surgery Progress Note Date: 12/09/2023 Surgery: 12/06/2023 - LEFT HIP CONVERSION TO TOTAL HIP ARTHROPLASTY ANTERIOR APPROACH (L) SUBJECTIVE/24h events: NAEON. Pain well controlled. Na 128 Cl unchecked this AM. NaCl tabs ordered. On 1500cc fluid restriction. Normal saline ordered recheck labs at noon. Pain well controlled. She is hopeful for DC back to facility this PM. Has not ambulated yet. Denies weakness, numbness, tingling. OBJECTIVE BP 110/62 Pulse 85 Temp 37.6 ???C (99.7 ???F) Resp 16 Ht 1.6 m (5' 3 ) Wt 51 kg (112 lb 7 oz) SpO2 97% BMI 19.92 kg/m??? General: A/O x3, resting comfortably in bed, cooperative MSK: LLE - dressing CDI - Compartments soft / compressible - SILT in superficial peroneal, deep peroneal, sural, saph nerve dist - Motor function intact in tibial, deep peroneal, superficial peroneal dist - Brisk capillary refill Labs: Lab Results Component Value Date WBC 20.49 (H) 12/07/2023 HGB 12.1 12/07/2023 HCT 37.6 12/07/2023 MCV 88.7 12/07/2023 PLT 651 (H) 12/07/2023 CRP 4.3 03/02/2020 Lab Results Component Value Date GLU 89 03/07/2020 CALCIUM 8.0 (L) 12/08/2023 NA 128 (L) 12/08/2023 K 3.8 12/08/2023 CO2 23 12/08/2023 CL 93 (L) 12/08/2023 BUN 17 12/08/2023 CREATININE 0.39 (L) 12/08/2023 Lab Results Component Value Date INR 0.96 11/28/2023 Results from last 7 days Lab Units 12/07/23 1236 12/06/23 0904 CULTURE -- No growth at 2 days BLOOD CULTURE No growth at 18-24 hours No growth at 18-24 hours -- GRAM STAIN RESULT -- Few Polymorphonuclear leukocytes No organisms seen Imaging: X-rays demonstrating: appropriately placed acetabular cup with screws in maintained trajectory. Femoral stem without compication. Overall appropriately placed conversion L total hip prosthesis. ASSESSMENT: Melanie Espinoza is a 68 y.o. female with Left hip osteolysis. 3 Days Post-Op LEFT HIP CONVERSION TO TOTAL HIP ARTHROPLASTY ANTERIOR APPROACH (L) PLAN Weightbearing as tolerated LLE Abx: 24hrs Ancef, DC one week Doxy DVT ppx: ASA 325mg daily PT/OT Pain control: multimodal Vitamin D / Calcium supplementation Medicine for Tremors/electrolyte abnormalities/optimization. -Anticipating DC back to SNF today pending PT, IMS recommendations. Cm Lyon MD Orthopaedic Surgery, PGY-4 Ortho Pager [phone] 12/09/23 6:17 AM [facility] 12-08-2023 Note Attestation signed by Brigitte Akhtar MD at 12/08/2023 3:17 PM GC: I saw this patient. I personally was physically present for the critical/denton portions that determines the level of service. I was directly involved in the management and treatment plan of the patient. I reviewed fellow Dr. Langston 's note and agree with the documentation Nephrology Consult Note Patient : Melanie Espinoza; 68 y.o. Location: 6109/6109-01 Attending: Ernesto Plaza MD Admit Date: 12/06/2023 Hospital Day: 2 Reason for Consult: Management of hyponatremia. History of Present Illness: Melanie Espinoza is a 68 y.o. female with past medical history of GERD, anemia, CAD, hypothyroidism, major depressive disorder, osteopenia, chronic hyponatremia. Patient is admitted under orthopedic surgery for elective hip arthroplasty due to avascular necrosis. Nephrology consulted for management of chronic hyponatremia. On review of chart patient has chronic hyponatremia for long time secondary to hypothyroidism. Patient is not on thiazide diuretics, she is taking sodium chloride 1 g tablet daily. Patient also has a history of hypertension for which she is on Toprol-XL 25 mg p.o. daily. Patient during our evaluation was sleeping she complained of feeling tired and fatigue. Most recent BMP showed sodium 127, potassium 3.8, CO2 23, BUN 17, creatinine 0.39. Review of Systems: Review of Systems Constitutional: Positive for fatigue. HENT: Negative. Eyes: Negative. Respiratory: Negative. Cardiovascular: Negative. Gastrointestinal: Negative. Genitourinary: Negative. Musculoskeletal: Negative. Hematological: Negative. Psychiatric/Behavioral: Negative. Input/Output: I/O last 3 completed shifts: In: 875 (17.7 mL/kg) [P.O.:700; I.V.:75 (1.5 mL/kg); IV Piggyback:100] Out: - (0 mL/kg) Weight: 49.5 kg Vital Signs: Temperature: Temp: 37.6 ???C (99.7 ???F) TMax: Temp (24hrs), Av.5 ???C (99.5 ???F), Min:37.4 ???C (99.3 ???F), Max:37.6 ???C (99.7 ???F) Respirations: Resp: 16 Pulse: Heart Rate: 88 BP: BP: 114/76 BP Range: Systolic (24hrs), Av , Min:110 , Max:135 Diastolic (24hrs), Av, Min:61, Max:76 Wt Readings from Last 3 Encounters: 12/08/23 49.5 kg (109 lb 2 oz) 11/28/23 45.4 kg (100 lb) 09/18/23 39.9 kg (88 lb) Physical Examination: Physical Exam Vitals and nursing note reviewed. Constitutional: Appearance: Normal appearance. She is underweight. HENT: Head: Normocephalic and atraumatic. Mouth/Throat: Mouth: Mucous membranes are dry. Cardiovascular: Rate and Rhythm: Normal rate. Heart sounds: No murmur heard. Pulmonary: Effort: Pulmonary effort is normal. No respiratory distress. Abdominal: General: There is no distension. Musculoskeletal: General: Normal range of motion. Cervical back: Neck supple. Right lower leg: No edema. Left lower leg: No edema. Skin: General: Skin is dry. Psychiatric: Mood and Affect: Mood normal. Labs: Chemistry: Lab Results Component Value Date NA 127 (L) 12/08/2023 K 3.8 12/08/2023 CL 93 (L) 12/08/2023 CO2 23 12/08/2023 CO2 27 03/07/2020 ANIONGAP 15 12/08/2023 BUN 17 12/08/2023 CREATININE 0.39 (L) 12/08/2023 EGFR 108.4 12/08/2023 GLU 89 03/07/2020 CALCIUM 8.0 (L) 12/08/2023 MG 1.8 05/18/2022 PHOS 3.5 03/03/2020 VITD25 19.5 (L) 03/02/2020 Hematology & Iron studies: Lab Results Component Value Date WBC 20.49 (H) 12/07/2023 HGB 12.1 12/07/2023 HCT 37.6 12/07/2023 MCV 88.7 12/07/2023 PLT 651 (H) 12/07/2023 Urine chemistry: Lab Results Component Value Date PROTUR Negative 11/28/2023 Urinalysis & Microscopy: Lab Results Component Value Date COLORU Straw (A) 11/28/2023 CLARITYU Clear 11/28/2023 SPECGRAVU 1.006 (L) 11/28/2023 BAILEY 6.0 11/28/2023 PROTUR Negative 11/28/2023 LEUKOCYTESU Negative 11/28/2023 NITRITEU Negative 11/28/2023 GLUCOSEU Negative 11/28/2023 KETONESU Negative 11/28/2023 BLOODU Negative 11/28/2023 Urine Eosinophils: No components found for: UEOS Serology & Other labs: BNP: No results found for: BNP SANDI: No results found for: SANDI SPEP:No results found for: PROT UPEP: No components found for: LABPE C3: No results found for: C3 C4: No results found for: C4 MPO ANCA: No components found for: MPO PR3 ANCA: No components found for: PR3 Anti-GBM: No components found for: GBMABIGG Hep BsAg: No results found for: HEPBSAG Hep C AB: No results found for: HEPCAB Outpatient Medications & Allergies: Medication Documentation Review Audit Reviewed by Angela Leigh RN (Registered Nurse) on 12/06/23 at 1440 Medication Order Taking? Sig Documenting Provider Last Dose Status alendronate (Fosamax) 70 mg tablet [id number] No Take 1 tablet by mouth 1 (one) time per week. His (more content not included)... [facility] 12-08-2023 Note INTERNAL MEDICINE Follow-up Patient Visit HPI: continues to complain of tremor. Following with fluid restriction. Physical Exam: Temp: [37.4 ???C (99.3 ???F)-37.6 ???C (99.7 ???F)] 37.6 ???C (99.7 ???F) Heart Rate: [88-104] 88 Resp: [16] 16 BP: (110-135)/(61-76) 114/76 Physical Exam Constitutional: General: She is not in acute distress. Appearance: She is not diaphoretic. Cardiovascular: Rate and Rhythm: Normal rate and regular rhythm. Pulses: Normal pulses. Heart sounds: Normal heart sounds. Pulmonary: Effort: Pulmonary effort is normal. Breath sounds: Normal breath sounds. Abdominal: General: Bowel sounds are normal. Palpations: Abdomen is soft. Tenderness: There is no abdominal tenderness. Musculoskeletal: Right lower leg: No edema. Left lower leg: No edema. Neurological: Mental Status: She is alert. Principal Problem: Traumatic arthritis of left hip Active Problems: Movement disorder Acquired hypothyroidism Chronic hyponatremia Primary hypertension GERD (gastroesophageal reflux disease) Slight increase in sodium since yesterday but not yet back to baseline. I have consulted nephrology for the chronic hyponatremia. I have also consulted neurology to review medications and help identify treatment and diagnosis for tremor. She takes many medications for tremor and these could be contributing to her hyponatremia. Gurpreet Man MD [facility] 12-08-2023 Note Attestation signed by Ernesto Plaza MD at 12/08/2023 9:04 AM I didn't personally see the patient on the date of the encounter, I personally discussed with the resident Cm Flores MD and agree with the documentation. Orthopaedic Surgery Orthopaedic Surgery Progress Note Date: 12/08/2023 Surgery: 12/06/2023 - LEFT HIP CONVERSION TO TOTAL HIP ARTHROPLASTY ANTERIOR APPROACH (L) SUBJECTIVE/24h events: NAEON. Pain well controlled. Na 127 Cl 93 this AM. NaCl tabs ordered. Normal saline ordered recheck labs at noon. Pain well controlled. She is hopeful for DC back to facility this PM. Has not ambulated yet. Denies weakness, numbness, tingling. OBJECTIVE BP 135/61 (BP Location: Right arm, Patient Position: Lying) Pulse 104 Temp 37.4 ???C (99.3 ???F) (Oral) Resp 16 Ht 1.6 m (5' 3 ) Wt 49.5 kg (109 lb 2 oz) SpO2 97% BMI 19.33 kg/m??? General: A/O x3, resting comfortably in bed, cooperative MSK: LLE - dressing CDI - Compartments soft / compressible - SILT in superficial peroneal, deep peroneal, sural, saph nerve dist - Motor function intact in tibial, deep peroneal, superficial peroneal dist - Brisk capillary refill Labs: Lab Results Component Value Date WBC 20.49 (H) 12/07/2023 HGB 12.1 12/07/2023 HCT 37.6 12/07/2023 MCV 88.7 12/07/2023 PLT 651 (H) 12/07/2023 CRP 4.3 03/02/2020 Lab Results Component Value Date GLU 89 03/07/2020 CALCIUM 8.0 (L) 12/08/2023 NA 127 (L) 12/08/2023 K 3.8 12/08/2023 CO2 23 12/08/2023 CL 93 (L) 12/08/2023 BUN 17 12/08/2023 CREATININE 0.39 (L) 12/08/2023 Lab Results Component Value Date INR 0.96 11/28/2023 Results from last 7 days Lab Units 12/06/23 0904 CULTURE No growth at 2 days GRAM STAIN RESULT Few Polymorphonuclear leukocytes No organisms seen Imaging: X-rays demonstrating: appropriately placed acetabular cup with screws in maintained trajectory. Femoral stem without compication. Overall appropriately placed conversion L total hip prosthesis. ASSESSMENT: Melanie Espinoza is a 68 y.o. female with Left hip osteolysis. 2 Days Post-Op LEFT HIP CONVERSION TO TOTAL HIP ARTHROPLASTY ANTERIOR APPROACH (L) PLAN Weightbearing as tolerated LLE Abx: 24hrs Ancef, DC one week Doxy DVT ppx: ASA 325mg daily PT/OT Pain control: multimodal Vitamin D / Calcium supplementation Medicine for Tremors/electrolyte abnormalities/optimization. -Anticipating DC back to SNF today pending PT IMS recommendations. Cm Lyon MD Orthopaedic Surgery, PGY-4 Ortho Pager [phone] 12/08/23 7:40 AM [facility] 12-08-2023 Note Attestation signed by Ernesto Plaza MD at 12/08/2023 10:03 AM I didn't personally see the patent on the day of the encounter, I Discussed with the resident Cm Flores MD and agree with the documentation. Orthopaedic Surgery Orthopaedic Surgery Progress Note Date: 12/08/2023 Surgery: 12/06/2023 - LEFT HIP CONVERSION TO TOTAL HIP ARTHROPLASTY ANTERIOR APPROACH (L) SUBJECTIVE/24h events: NAEON. Pain well controlled. Na 125 Cl 90 this AM. NaCl tabs ordered. Normal saline ordered recheck labs at noon. Pain well controlled. She is hopeful for DC back to facility this PM. Has not ambulated yet. Denies weakness, numbness, tingling. OBJECTIVE BP 135/61 (BP Location: Right arm, Patient Position: Lying) Pulse 104 Temp 37.4 ???C (99.3 ???F) (Oral) Resp 16 Ht 1.6 m (5' 3 ) Wt 49.5 kg (109 lb 2 oz) SpO2 97% BMI 19.33 kg/m??? General: A/O x3, resting comfortably in bed, cooperative MSK: LLE - dressing CDI - Compartments soft / compressible - SILT in superficial peroneal, deep peroneal, sural, saph nerve dist - Motor function intact in tibial, deep peroneal, superficial peroneal dist - Brisk capillary refill Labs: Lab Results Component Value Date WBC 20.49 (H) 12/07/2023 HGB 12.1 12/07/2023 HCT 37.6 12/07/2023 MCV 88.7 12/07/2023 PLT 651 (H) 12/07/2023 CRP 4.3 03/02/2020 Lab Results Component Value Date GLU 89 03/07/2020 CALCIUM 8.0 (L) 12/08/2023 NA 127 (L) 12/08/2023 K 3.8 12/08/2023 CO2 23 12/08/2023 CL 93 (L) 12/08/2023 BUN 17 12/08/2023 CREATININE 0.39 (L) 12/08/2023 Lab Results Component Value Date INR 0.96 11/28/2023 Results from last 7 days Lab Units 12/06/23 0904 CULTURE No growth at 2 days GRAM STAIN RESULT Few Polymorphonuclear leukocytes No organisms seen Imaging: X-rays demonstrating: appropriately placed acetabular cup with screws in maintained trajectory. Femoral stem without compication. Overall appropriately placed conversion L total hip prosthesis. ASSESSMENT: Melanie Espinoza is a 68 y.o. female with Left hip osteolysis. 2 Days Post-Op LEFT HIP CONVERSION TO TOTAL HIP ARTHROPLASTY ANTERIOR APPROACH (L) PLAN Weightbearing as tolerated LLE Abx: 24hrs Ancef, DC one week Doxy DVT ppx: ASA 325mg daily PT/OT Pain control: multimodal Vitamin D / Calcium supplementation Medicine for Tremors/electrolyte abnormalities/optimization. -Anticipating DC back to SNF today pending PT. 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 Reason Follow up;Placement;Information Patient Information Primary Caregiver Other (Comment) (LTC at [facility]) Activities of Daily Living Assistive Device Wheelchair;Walker Living Arrangement (Current/Prior to Hospitalization) skilled nursing/residential care;ECF Ambulation Minimum assistance Dressing Minimum assistance Feeding Independent Behavior Oriented Communication Talks;Understands speaking;Understands French Discharge Planning Support Systems Friends/neighbors;Other (Comment) (skilled nursing staff) Type of Residence [facility] facility;ECF Care Facility Name [facility] Will patient need Precert for Post Acute needs? Yes Patient's goal for discharge [facility] Does the patient need discharge transport arranged? Yes Screened by [facility]. Pt is a [facility] resident at [facility]. PT/OT recommend skilled therapy. Sent referral to [facility] to check on Medicaid bed hold and if they can accept back prior to skilled auth for therapy. [facility] 12-07-2023 Note Occupational Therapy Occupational Therapy Evaluation Patient Name: Melanie Espinoza : 1955 Today's Date: 12/07/2023 Discharge Recommendation: SNF 68 y/o F s/p L anterior NICOLASA on 12/06/23. Initiated session with pt supine in bed. Pt supine to sit, sit to stand, steps to chair, stand to sit, tolerated ROM and MMT, unsuccessful attempts to comfortably position pt in chair, sit to stand, steps to bed, stand to sit, and sit to supine. Concluded session with pt supine in bed with call light in reach. RN approved pt for OOB activity this date and pt agreeable.' Time In: 1035 Time Out: 1053 General Subjective: Pt pleasant and cooperative Family/Caregiver Present: No Patient Active Problem List Diagnosis Avascular necrosis of bone of hip, left (CMS/HCC) Movement disorder Acquired hypothyroidism Acute alteration in mental status Acute hyponatremia Acute metabolic encephalopathy Anemia Anxiety Closed fracture of neck of femur (CMS/HCC) COVID-19 Depression Generalized anxiety disorder Generalized muscle weakness Hiatal hernia Hydronephrosis Hypocalcemia Hypoglycemia Hypokalemia Hypophosphatemia Hyposmolality syndrome Leg swelling Primary osteoarthritis Multifactorial gait disorder Nausea and vomiting Osteoarthritis of left hip Pain of left hip joint Primary hypertension Rectal prolapse Rhabdomyolysis S/P reverse total shoulder arthroplasty, right Sepsis ([facility]) SIADH (syndrome of inappropriate ADH production) ([facility]) Tardive dyskinesia Preoperative clearance Abnormal cardiovascular stress test Atherosclerosis of [place] coronary artery of [place] heart without angina pectoris 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 chronic kidney disease stage V or end stage renal disease(404.12) ([facility]) GERD (gastroesophageal reflux disease) Traumatic arthritis of left hip Past Medical History: Diagnosis Date Anemia Anxiety Arthritis Chronic kidney disease Dysphagia Epilepsy ([facility]) GERD (gastroesophageal reflux disease) Hyperlipidemia Hypertension Major depressive disorder Osteoarthritis Peripheral vascular disease ([facility]) Rectal prolapse Past Surgical History: Procedure Laterality Date RECTAL PROLAPSE REPAIR SHOULDER SURGERY Right Precautions Precautions LE Weight Bearing Status: Left, WBAT Medical Precautions: bed alarm, chair alarm, fall risk, anterior NICOLASA Pain Pain Assessment Pain Assessment: No/denies pain Cognition Cognition Overall Cognitive Status: Within Functional Limits General Assessment General Assessment Hearing: WFL Tone: (tardive dyskinesia with generalized jerky movements) Home Living Home Living Type of Home: skilled nursing Home Adaptive Equipment: Walker rolling, Wheelchair-manual, Rollator Prior Level of Function Prior Function Level of Slope: Needs assistance with ADLs, Needs assistance with homemaking (mod A bathing and LB dressing) Prior Functional Mobility: Independent with wheelchair, Transfers only Receives Help From: NH/SNF staff Prior IADLs Static Sitting Balance Static Sitting Balance Static Sitting-Balance Support: Feet supported Static Sitting-Level of Assistance: Distant supervision Dynamic Sitting Balance Dynamic Sitting Balance Dynamic Sitting-Balance Support: Feet supported Dynamic Sitting-Balance: Forward lean Dynamic Sitting Balance-Level of Assistance: Close supervision Static Standing Balance Static Standing Balance Static Standing-Balance Support: Right upper extremity supported, Left upper extremity supported (A from PT/OT) Static Standing-Level of Assistance: Moderate assistance Dynamic Standing Balance Dynamic Standing Balance Dynamic Standing-Balance Support: Right upper extremity supported, Left upper extremity supported (A from PT/OT) Dynamic Standing Balance-Level of Assistance: Maximum assistance ADL ADL Eating Assistance: Stand by Eating Deficit: Beverage management Grooming Assistance: Stand by Bathing Assistance: Maximal UE Dressing Assistance: Minimal UE Dressing Deficit: (managing gown) LE Dressing Assistance: Total Toileting Assistance with Device: Total Bed Mobility Bed Mobility Bed Mobility: Yes Bed Mobility 1 Bed Mobility From 1: Supine Bed Mobility Type 1: To and from Bed Mobility to 1: Short sit Level of Assistance 1: Maximum assistance Transfers Transfers Transfer: Yes Transfer 1 Transfer From 1: Bed Transfer Type 1: To and from Transfer to 1: Chair with arms Technique 1: Sit to stand, Stand to sit Transfer Device 1: (A from PT/OT) Transfer Level of Assistance 1: Maximum assistance Objective General Assessments Activity Tolerance Endurance: Stage I Vision - Basic Assessment Current Vision: Wears glasses all the time Sensation Light Touch: (baseline n/t R fingers) Coordination Movements are Fluid (more content not included)... [facility] 12-07-2023 Note Physical Therapy Philomena roberts Patient Name: Melanie Espinoza Today's Date: 12/07/2023 Admit Date: 12/06/2023 Time In: 1035 Time Out: 1053 Total Time: 18 minutes Discharge Recommendation: therapy at SNF/her home ECF History of present illness Melanie Espinoza is a 68 y.o. female admitted to [facility] following right anterior approach NICOLASA due to AVN. 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 At baseline pt does not walk but she does report independent transfers to her . Pt is now WBAT with anterior hip precautions. Pt agreeable to therapy, she notes she has been to the chair and the used the bedside commode earlier today. Activity: per RN, ok to see patient and advance as tolerated. Patient agreeable to therapy. At end of session patient with call light in reach and resting comfortably in bed. Subjective: Melanie reports no sig pain issues this am, she notes that her dyskinesia is more prevalent today making movement more challenging PMH/PSH per chart Patient Active Problem List Diagnosis Avascular necrosis of bone of hip, left (CMS/HCC) Movement disorder Acquired hypothyroidism Acute alteration in mental status Acute hyponatremia Acute metabolic encephalopathy Anemia Anxiety Closed fracture of neck of femur (CMS/HCC) COVID-19 Depression Generalized anxiety disorder Generalized muscle weakness Hiatal hernia Hydronephrosis Hypocalcemia Hypoglycemia Hypokalemia Hypophosphatemia Hyposmolality syndrome Leg swelling Primary osteoarthritis Multifactorial gait disorder Nausea and vomiting Osteoarthritis of left hip Pain of left hip joint Primary hypertension Rectal prolapse Rhabdomyolysis S/P reverse total shoulder arthroplasty, right Sepsis ([facility]/HCC) SIADH (syndrome of inappropriate ADH production) ([facility]) Tardive dyskinesia Preoperative clearance Abnormal cardiovascular stress test Atherosclerosis of [place] coronary artery of [place] heart without angina pectoris 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 chronic kidney disease stage V or end stage renal disease(404.12) ([facility]) GERD (gastroesophageal reflux disease) Traumatic arthritis of left hip Past Medical History: Diagnosis Date Anemia Anxiety Arthritis Chronic kidney disease Dysphagia Epilepsy (CMS/HCC) GERD (gastroesophageal reflux disease) Hyperlipidemia Hypertension Major depressive disorder Osteoarthritis Peripheral vascular disease ([facility]) Rectal prolapse Past Surgical History: Procedure Laterality Date RECTAL PROLAPSE REPAIR SHOULDER SURGERY Right Prior level of function Pt notes she does not walk , notes she was transferring independently to and from , she notes she gets help with ADLS, she notes about 50% assistance Home set-up Pt lives at [facility] Support system ECF staff. Adaptive Equipment Per F staff Pain No expressions of pain during eval Orientation Pt oriented to current situation Precautions anterior hip precautions, fall risk. Objective assessment Bed mobility Supine to sit: patient able to perform with moderate assist. Patient requires assist with legs and torso . Sit to supine: patient able to perform with moderate assist x2. Patient requires assist with legs and positioning in the bed . Transfers Sit to stand: modAx1 Stand to sit: modAx1 Bed to chair: maxA stepping to chair with therapist assist Gait Pt is not ambulatory per her report Endurance fair. Balance Sitting balance fair= , sig amount of dyskinesia this date Standing balance poor ROM UE ROM: wfls. LE ROM: mild restriction into right DF, severe restriction into left DF. Hip rom deferred this date Strength Functional strength: see bed mobility and transfer comments above. LE strength: Isometric MMT deferred , pt is demonstrating sig LE weakness , difficulty with transfers and standing/gt Sensation intact. Skin Integrity Incision not observed Mobility 6-Click T-Score: 6 Clicks (Mobility) Help from another person turning from your back to your side while in a flat bed without using bedrails: A little Help from another person moving from lying on your back to sitting on the side of a flat bed without using bedrails: A lot Help from another person moving to and from a bed to a chair (including a wheelchair): A lot Help from another person standing up from a chair using your arms (e.g. wheelchair or bedside chair): A lot Help from another person to walk in hospital room: Total Help from another person climbing 3-5 steps with a railing: Total Mobility 6 Clicks T-Score: 11 Assessment Melanie Espinoza presents to [facility] with limited functional mobility secondary to recent left NICOLASA, anterior approach, per Dr Plaza. The patient demonstrates decreased strength, postural control/awareness, and gait/balance impairments (more content not included)... [facility] 12-07-2023 Note Attestation signed by Gurpreet Man MD at 12/07/2023 11:28 AM GC: I saw this patient. I personally personally the critical/[place] portions that determines the level of service. I was directly involved in the management and treatment plan of the patient. I reviewed Quinn Pascual MD's note and agree. Will stop carbamazepine and start fluid restriction. Avoid IV fluid correct sodium Reviewed and approved by GURPREET MAN on 12/07/23 at 11:28 AM. [facility] Inpatient Progress Note Patient - Melanie Espinoza Age - 68 [facility] 1955 [id number] Date of Admission - 12/06/2023 5:42 AM Interval history Patient was seen and examined at bedside this morning. Hemodynamically stable and afebrile. Saturating well on room air. Denied chest pain, SOB, cough, abdominal pain or change in bowel habits. Vitals height is 1.6 m (5' 3 ) and weight is 42.8 kg (94 lb 5.7 oz). Her oral temperature is 36.7 ???C (98.1 ???F). Her blood pressure is 114/93 (abnormal) and her pulse is 63. Her respiration is 16 and oxygen saturation is 96%. Temp: [36.3 ???C (97.3 ???F)-37.2 ???C (99 ???F)] 36.7 ???C (98.1 ???F) Heart Rate: [60-83] 63 Resp: [8-20] 16 BP: (111-156)/(61-93) 114/93 Weight: Admission weight: 41.5 kg (91 lb 7.9 oz) Wt Readings from Last 1 Encounters: 12/07/23 42.8 kg (94 lb 5.7 oz) Input/Output: Intake/Output Summary (Last 24 hours) at 12/07/2023 1021 Last data filed at 12/07/2023 1001 Gross per 24 hour Intake 1001.5 ml Output -- Net 1001.5 ml Physical Examination: General: Well-appearing, in no acute distress Head: Normocephalic, atraumatic. HEENT: No scleral icterus. Oral mucosa is moist without erythema, lesions, or ulcerations. Pulm: Clear to auscultation. No audible wheezing, rales, or rhonchi. Breathing is non-labored. Cardiac: Regular rate, regular rhythm. Normal S1/S2. No appreciable murmurs, gallops, or rubs. GI: Abdomen is soft, non-distended, non-tender. Ext: No peripheral edema. Neuro: Alert and oriented x 3. Lab Results Results from last 7 days Lab Units 12/07/23 0549 WBC AUTO 10*3/uL 20.49* HEMOGLOBIN g/dL 12.1 HEMATOCRIT % 37.6 PLATELETS AUTO 10*3/uL 651* Results from last 7 days Lab Units 12/07/23 0549 SODIUM mmol/L 125* POTASSIUM mmol/L 4.2 CHLORIDE mmol/L 90* CO2 mmol/L 26 BUN mg/dL 11 CREATININE mg/dL 0.45* GLUCOSE mg/dL 118* CALCIUM mg/dL 8.6 No lab exists for component: TOTALPROTEI , LABBILIRUBIN , TOTALBILIRUB , BILIRUB , BILIRUBIND Lab Results Component Value Date HGBA1C 5.4 11/28/2023 No lab exists for component: TROPI , TROPONIN No lab exists for component: ABGPH , ABGPCO2 , ABGPO2 , ABGHCO3 , ABGBASEDEFIC , [id number] , ABGOXYGENSOU No lab exists for component: LACTICACID , PROCALCITON No lab exists for component: CHOLHDL No results found for: WBCU , UROBILINOGEN Radiology CT hip left wo IV contrast Result Date: 05/21/2023 Severe left hip osteoarthritis with secondary to prior fracture and deformity as described above. No acute osseous injury suggested on CT assessment. Pelvic fluid appears to relate to severe urinary bladder distention. This is not completely assessed. Electronically signed: Scooby Kelly. CT pelvis wo IV contrast Result Date: 05/21/2023 Severe left hip osteoarthritis with acetabular and femoral deformity consistent with previous avascular necrosis. Urinary bladder distention. Electronically signed: Scooby Kelly. No MRI head results found for the past 12 months XR hip left 2 or 3 views Result Date: 12/06/2023 *Status post left hip arthroplasty with no immediate hardware complications. Electronically signed: Good Mcginnis MD. Medications Scheduled: acetaminophen, 1,000 mg, oral, q8h aspirin, 325 mg, oral, BID atorvastatin, 40 mg, oral, q PM atorvastatin, 40 mg, oral, Daily busPIRone, 15 mg, oral, BID docusate sodium, 100 mg, oral, BID ferrous sulfate, 325 mg, oral, Daily with breakfast gabapentin, 300 mg, oral, BID gabapentin, 600 mg, oral, Nightly levothyroxine, 75 mcg, oral, Daily metoprolol succinate XL, 25 mg, oral, Daily mirtazapine, 15 mg, oral, Nightly Oxygen Therapy, , inhalation, Continuous pantoprazole, 40 mg, oral, Daily before breakfast polyethylene glycol, 17 g, oral, Daily primidone, 50 mg, oral, BID sodium chloride, 1 g, oral, Daily tetrabenazine, 12.5 mg, oral, Daily traZODone, 100 mg, oral, Nightly Infusions: As Needed: PRN medications: cyclobenzaprine, HYDROmorphone, melatonin, naloxone OR naloxone OR naloxone, ondansetron ODT OR ondansetron, oxyCODONE OR oxyCODONE ASSESSMENT: Left hip conversion to total hip arthroplasty secondary to 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 [facility] 12-07-2023 Note 12/07/23 1012 Admission Assessment Questions Verify insurance with patient Yes Do you understand medical disease or what brought you into the hospital? Yes Who is your current PCP? Alexey Polo MD Can I schedule a follow up appointment for you at the time of discharge? Yes Do you understand why you are taking your current medications? Yes Are you taking your medications as prescribed? Yes Did patient provide teach back? Yes Pharmacy Bedside Delivery Status Interested Does the patient have a case reviewer assigned to them through their insurance? No Living Arrangement (Current/Prior to Hospitalization) skilled nursing/residential care ([facility]) Does the patient have history of HHC or SNF? Yes Assistive Device Walker;Wheelchair Patient's goal for discharge To return to [place] Was patient reminded that goal for discharge is 11am? Yes Does the patient have transportation at discharge? No Type of Residence skilled nursing/residential care Is PT/OT appropriate? Yes Is PT/OT ordered? Yes Is SW consult appropriate? No Is SW consult ordered? No Do you understand the benefits of MyChart? No Were you able to send link and activate MyChart? No [facility] 12-07-2023 Note Attestation signed by Ernesto Plaza MD at 12/08/2023 10:03 AM I didn't personally see the patent on the day of the encounter, I Discussed with the resident Cm Flores MD and agree with the documentation. Orthopaedic Surgery Orthopaedic Surgery Progress Note Date: 12/07/2023 Surgery: 12/06/2023 - LEFT HIP CONVERSION TO TOTAL HIP ARTHROPLASTY ANTERIOR APPROACH (L) SUBJECTIVE/24h events: NAEON. Pain well controlled. Na 125 Cl 90 this AM. NaCl tabs ordered. Normal saline ordered recheck labs at noon. Pain well controlled. She is hopeful for DC back to facility this PM. Has not ambulated yet. Denies weakness, numbness, tingling. OBJECTIVE BP (!) 114/93 (BP Location: Left arm, Patient Position: Lying) Pulse 63 Temp 36.7 ???C (98.1 ???F) (Oral) Resp 16 Ht 1.6 m (5' 3 ) Wt 42.8 kg (94 lb 5.7 oz) SpO2 96% BMI 16.71 kg/m??? General: A/O x3, resting comfortably in bed, cooperative MSK: LLE - dressing CDI - Compartments soft / compressible - SILT in superficial peroneal, deep peroneal, sural, saph nerve dist - Motor function intact in tibial, deep peroneal, superficial peroneal dist - Brisk capillary refill Labs: Lab Results Component Value Date WBC 20.49 (H) 12/07/2023 HGB 12.1 12/07/2023 HCT 37.6 12/07/2023 MCV 88.7 12/07/2023 PLT 651 (H) 12/07/2023 CRP 4.3 03/02/2020 Lab Results Component Value Date GLU 89 03/07/2020 CALCIUM 8.6 12/07/2023 NA 125 (L) 12/07/2023 K 4.2 12/07/2023 CO2 26 12/07/2023 CL 90 (L) 12/07/2023 BUN 11 12/07/2023 CREATININE 0.45 (L) 12/07/2023 Lab Results Component Value Date INR 0.96 11/28/2023 Results from last 7 days Lab Units 12/06/23 0904 CULTURE No growth at 18-24 hours GRAM STAIN RESULT Few Polymorphonuclear leukocytes No organisms seen Imaging: X-rays demonstrating: appropriately placed acetabular cup with screws in maintained trajectory. Femoral stem without compication. Overall appropriately placed conversion L total hip prosthesis. ASSESSMENT: Melanie Espinoza is a 68 y.o. female with Left hip osteolysis. 1 Day Post-Op LEFT HIP CONVERSION TO TOTAL HIP ARTHROPLASTY ANTERIOR APPROACH (L) PLAN Weightbearing as tolerated LLE Abx: 24hrs Ancef, DC one week Doxy DVT ppx: ASA 325mg daily PT/OT Pain control: multimodal Vitamin D / Calcium supplementation Medicine for Tremors/electrolyte abnormalities/optimization. -Anticipating DC back to SNF today pending PT. Cm Lyon MD Orthopaedic Surgery, PGY-4 Ortho Pager [phone] 12/07/23 8:04 AM [facility] 12-06-2023 Note Patient: Melanie Moon is Procedure Summary Date: 12/06/23 Room / Location: [facility] OPERATING ROOM 02 / [facility] Operating Room Anesthesia Start: 726 Anesthesia Stop: 1111 Procedure: LEFT HIP CONVERSION TO TOTAL HIP ARTHROPLASTY ANTERIOR APPROACH (Left: Hip) Diagnosis: AVN (avascular necrosis of bone) (CMS/HCC) Primary osteoarthritis of left hip (AVN (avascular necrosis of bone) (CMS/HCC) [M87.00]Primary osteoarthritis of left hip [M16.12]) Surgeons: Ernesto Plaza MD Responsible Provider: Jeffrey Summers MD Anesthesia Type: general ASA Status: 2 Anesthesia Type: general Vitals Value Taken Time BP 137/63 12/06/23 1105 Temp 37.2 ???C (99 ???F) 12/06/23 1105 Pulse 79 12/06/23 1114 Resp 13 12/06/23 1114 SpO2 94 % 12/06/23 1114 Vitals shown include unvalidated device data. Anesthesia Post Evaluation Patient location during evaluation: PACU Patient participation: complete - patient participated Level of consciousness: awake and alert Pain score: 4 Pain management: adequate Multimodal analgesia pain management approach Airway patency: patent Two or more strategies used to mitigate risk of obstructive sleep apnea Cardiovascular status: hemodynamically stable Respiratory status: acceptable, room air, spontaneous ventilation and nonlabored ventilation Hydration status: euvolemic Patient is hemodynamically stable and is able to be discharged from PACU per anesthesia protocol. No notable events documented. [facility] 12-06-2023 Note Patient: Melanie shields Procedure Summary Date: 12/06/23 Room / Location: [facility] OPERATING ROOM 02 / [facility] Operating Room Anesthesia Start: 726 Anesthesia Stop: Procedure: LEFT HIP CONVERSION TO TOTAL HIP ARTHROPLASTY ANTERIOR APPROACH (Left: Hip) Diagnosis: AVN (avascular necrosis of bone) (CMS/HCC) Primary osteoarthritis of left hip (AVN (avascular necrosis of bone) (CMS/HCC) [M87.00]Primary osteoarthritis of left hip [M16.12]) Surgeons: Ernesto Plaza MD Responsible Provider: Jeffrey Summers MD Anesthesia Type: general ASA Status: 2 Anesthesia Post Transport Note Transport to: PACU O2 Route: room air Patient Monitor: direct observation Transport: uneventful Patient condition is: stable [facility] 12-06-2023 Note Airway Date/Time: 12/06/2023 7:36 AM Urgency: elective General Information and Staff Patient location during procedure: OR Resident/HOSE MENDER/CAA: Calvin Cervantes MD Performed: other anesthesia staff and anesthesiologist Learner assisted: Amy Harris MS4 Indications and Patient Condition Indications for airway management: anesthesia Spontaneous Ventilation: absent Sedation level: deep Preoxygenated: yes Mask difficulty assessment: 1 - vent by mask Final Airway Details Final airway type: endotracheal airway Successful airway: ETT Cuffed: yes Successful intubation technique: video laryngoscopy Facilitating devices/methods: intubating stylet Endotracheal tube insertion site: oral Blade: Freedman Blade size: #3 ETT size (mm): 7.0 Cormack-Lehane Classification: grade I - full view of glottis Placement verified by: chest auscultation and capnometry Measured from: lips ETT to lips (cm): 21 Number of attempts at approach: 1 Number of other approaches attempted: 0 [facility] 11-29-2023 Note Patient is from a nu rsing home - plan is to return to the detention after surgery. [facility] 11-28-2023 Note Patient lives at [facility] and will discharge back there. I have put in a referral to Social work. [facility] 11-28-2023 Note Orthopedic Surgery Subjective Pain of the Left Hip (PRE-OP L HIP CONVERSION TO L NICOLASA , PATIENT RESIDES AT [facility] ) 11/28/23 Patient presents today for her preoperative appointment regarding left hip conversion to total hip arthroplasty via anterior approach for 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 Per her primary care physician recommendations she underwent coronary angiogram. This showed mild three-vessel coronary disease and the recommendation for her integrated marketing specialist was to be on aspirin, statin, and beta-gilson therapy. However, there are no recommendations at this time regarding when aspirin can be stopped prior to surgery. She still localizes her pain in her left groin. She states her pain is 9 out of 10. Currently controlled with Tylenol. She otherwise denies any new injuries, complaints, numbness, tingling. Patient denies any allergies to adhesives, clinic lesions, latex. She does have an allergy to the macrolide family drugs. She denies any prior history of blood clots or DVT 07/04/23 Melanie Espinoza is a 68 y.o. [...] Anxiety Arthritis Chronic kidney disease Dysphagia Epilepsy (CMS/HCC) GERD (gastroesophageal reflux disease) Hyperlipidemia Hypertension Major depressive disorder Osteoarthritis Peripheral vascular disease (CMS/HCC) Rectal prolapse Objective General: Body mass index is 17.71 kg/m???. No acute distress, comfortable Left Lower [...] distributions Negative valgus and varus strain Imaging Radiographs of the left hip obtained in the clinic on 11/28/2023 show redemonstrated left hip degenerative joint disease with further femoral head collapse and prior closed duction percutaneous pinning femoral neck. X-ray of the left hip and pelvis [...] due to the severe arthritis and shortening. Discussed risk of anesthesia, infection, bleeding, injury to nerves and vessels, dislocation, leg length discrepancy, stiffness, persistence of pain, femur fractures, blood clots to the legs or the lungs, medical complications and possible revision surgery. Patient understood the recommendations and possible risks and elected to proceed with surgery. An informed consent was obtained. Per cardiology recommendations, patient is currently on aspirin, statin, and beta-gilson therapy. She otherwise received medical clearance for proceeding with surgery from her primary care physician. However, at this time we do not have a recommendation regarding stopping aspirin prior to surgery. We will contact her primary care physician in order to gain to provide a note (more content not included)... [facility] 11-28-2023 Note Done [facility] 11-28-2023 Note Orthopedic Surgery Subjective Pain of the Left Hip (PRE-OP L HIP CONVERSION TO L NICOLASA , PATIENT RESIDES AT [facility] ) 11/28/2023 Patient presents today for her preoperative appointment regarding left hip conversion to total hip arthroplasty via anterior approach for 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 Per her primary care physician recommendations she underwent coronary angiogram. This showed mild three-vessel coronary disease and the recommendation for her integrated marketing specialist was to be on aspirin, statin, and beta-gilson therapy. However, there are no recommendations at this time regarding when aspirin can be stopped prior to surgery. She still localizes her pain in her left groin. She states her pain is 9 out of 10. Currently controlled with Tylenol. She otherwise denies any new injuries, complaints, numbness, tingling. Patient denies any allergies to adhesives, clinic lesions, latex. She does have an allergy to the macrolide family drugs. She denies any prior history of blood clots or DVT 07/04/23 Melanie Espinoza is a 68 y.o. [...] Anxiety Arthritis Chronic kidney disease Dysphagia Epilepsy ([facility]/HCC) GERD (gastroesophageal reflux disease) Hyperlipidemia Hypertension Major depressive disorder Osteoarthritis Peripheral vascular disease ([facility]) Rectal prolapse Objective General: Body mass index is 17.71 kg/m???. No acute distress, comfortable Left Lower [...] distributions Negative valgus and varus strain Imaging Radiographs of the left hip obtained in the clinic on 11/28/2023 show redemonstrated left hip degenerative joint disease with further femoral head collapse and prior closed duction percutaneous pinning femoral neck. X-ray of the left hip and pelvis [...] due to the severe arthritis and shortening. Discussed risk of anesthesia, infection, bleeding, injury to nerves and vessels, dislocation, leg length discrepancy, stiffness, persistence of pain, femur fractures, blood clots to the legs or the lungs, medical complications and possible revision surgery. Patient understood the recommendations and possible risks and elected to proceed with surgery. An informed consent was obtained. Per cardiology recommendations, patient is currently on aspirin, statin, and beta-gilson therapy. She otherwise received medical clearance for proceeding with surgery from her primary care physician. However, at this time we do not have a recommendation regarding stopping aspirin prior to surgery. We will contact her primary care physician in order to gain to provide a note (more content not included)... [facility] 11-12-2023 Note HNO ID: [id number] Author: TAI HINOJOSA MD Service: ? Author Type: Physician Type: Progress Notes Filed: 11/12/2023 11:37 Note Text: November 12, 2023 Tai Hinojosa MD [address] / [address] [address] Esteban Garza MD ([facility]) [address] [place] [address] Melanei Espinoza : 1955 Interval History: Melanie Espinoza is a 68 year old woman with an almost 6 year history of dyskinesias returning for follow up. The patient is seen alone. She has constant tremors. She finds relief mostly with lying down. She still takes [place] and clonazepam. She is scheduled for hip surgery. Hopefully, this will help her ability to stand up. Allergies: ALLERGIES Allergen Reactions Erythromycin Unknown Current Medications: celecoxib (CELEBREX) 100 mg capsule Take 100 mg by mouth two times a day. clonazePAM (KLONOPIN) 0.5 mg tablet Take 0.5 mg by mouth three times a day. Take 3 tablets by mouth 3 times a day. mirtazapine (REMERON) 15 mg tablet Take 15 mg by mouth daily at bedtime. cyclobenzaprine (FLEXERIL) 10 mg tablet guaiFENesin-dextromethorphan (ROBITUSSIN DM) 100-10 mg/5 mL syrup Take 10 mL by mouth every 6 hours as needed. levothyroxine (SYNTHROID) 75 mcg tablet traZODone (DESYREL) 100 mg tablet busPIRone (BUSPAR) 10 mg tablet Take 10 mg by mouth three times daily. gabapentin (NEURONTIN) 600 mg tablet Take 600 mg by mouth three times a day. deutetrabenazine (AUSTEDO) 12 mg tab Take 2 [...] 1 g by mouth three times daily. acetaminophen (TYLENOL) 500 mg tablet Take 500 mg by mouth every 8 hours as needed. ondansetron (ZOFRAN) 4 mg tablet Take by mouth every 8 hours as needed for nausea/vomiting. gabapentin (NEURONTIN) 300 mg capsule Take 1 capsule in the morning, one in early afternoon, and 2 in the evening primidone (MYSOLINE) 250 mg tablet Take 1 tablet by mouth twice daily. clonazePAM (KLONOPIN) 1 mg tablet Take 1.5 tablets by mouth three times daily for 90 days. [including bedtime] HYDROcodone-acetaminophen (NORCO) 5-325 mg per tablet Take 1 tablet by mouth every 8 hours as needed for pain. (Patient not taking: Reported on 01/08/2023) busPIRone (BUSPAR) 15 mg tablet Take 15 mg by mouth three times daily. (Patient not taking: Reported on 01/08/2023) Ibuprofen 200 mg cap Take by mouth every 6 hours as needed. (Patient not taking: Reported on 01/08/2023) methocarbamol (ROBAXIN) 750 mg tablet Take 750 mg by mouth four times daily. (Patient not taking: Reported on 01/08/2023) sucralfate (CARAFATE) 1 gram tablet Take 1 g by mouth four times daily. (Patient not taking: Reported on 11/12/2023) busPIRone (BUSPAR) 5 mg tablet Take 1 [...] issues Physical Examination: General Description of Patient: uncomfortable, sitting in wheelchair - constantly moving, leaning in all directions Blood pressure 136/80, pulse 72, weight 43.1 kg (95 lb), SpO2 93%. FOCUSED NEUROLOGIC EXAMINATION: Mental Status: Alert and Oriented to person, place, and date Cranial Nerves: audible voice volu (more content not included)... [facility] 11-12-2023 History of Present illness Narrative November 12, 2023 Tai Hinojosa MD [address] / [address] [address] Esteban Garza MD ([facility]) [facility] [place] [address] Melanie Espinoza : 1955 Interval History: Melanie Espinoza is a 68 year old woman with an almost 6 year history of dyskinesias returning for follow up. The patient is seen alone. She has constant tremors. She finds relief mostly with lying down. She still takes Austedo and clonazepam. She is scheduled for hip surgery. Hopefully, this will help her ability to stand up. Allergies: ALLERGIES Allergen Reactions Erythromycin Unknown Current Medications: celecoxib (CELEBREX) 100 mg capsule Take 100 mg by mouth two times a day. clonazePAM (KLONOPIN) 0.5 mg tablet Take 0.5 mg by mouth three times a day. Take 3 tablets by mouth 3 times a day. mirtazapine (REMERON) 15 mg tablet Take 15 mg by mouth daily at bedtime. cyclobenzaprine (FLEXERIL) 10 mg tablet guaiFENesin-dextromethorphan (ROBITUSSIN DM) 100-10 mg/5 mL syrup Take 10 mL by mouth every 6 hours as needed. levothyroxine (SYNTHROID) 75 mcg tablet traZODone (DESYREL) 100 mg tablet busPIRone (BUSPAR) 10 mg tablet Take 10 mg by mouth three times daily. gabapentin (NEURONTIN) 600 mg tablet Take 600 mg by mouth three times a day. deutetrabenazine (AUSTEDO) 12 mg tab Take 2 [...] 1 g by mouth three times daily. acetaminophen (TYLENOL) 500 mg tablet Take 500 mg by mouth every 8 hours as needed. ondansetron (ZOFRAN) 4 mg tablet Take by mouth every 8 hours as needed for nausea/vomiting. gabapentin (NEURONTIN) 300 mg capsule Take 1 capsule in the morning, one in early afternoon, and 2 in the evening primidone (MYSOLINE) 250 mg tablet Take 1 tablet by mouth twice daily. clonazePAM (KLONOPIN) 1 mg tablet Take 1.5 tablets by mouth three times daily for 90 days. [including bedtime] HYDROcodone-acetaminophen (NORCO) 5-325 mg per tablet Take 1 tablet by mouth every 8 hours as needed for pain. (Patient not taking: Reported on 01/08/2023) busPIRone (BUSPAR) 15 mg tablet Take 15 mg by mouth three times daily. (Patient not taking: Reported on 01/08/2023) Ibuprofen 200 mg cap Take by mouth every 6 hours as needed. (Patient not taking: Reported on 01/08/2023) methocarbamol (ROBAXIN) 750 mg tablet Take 750 mg by mouth four times daily. (Patient not taking: Reported on 01/08/2023) sucralfate (CARAFATE) 1 gram tablet Take 1 g by mouth four times daily. (Patient not taking: Reported on 11/12/2023) busPIRone (BUSPAR) 5 mg tablet Take 1 [...] issues Physical Examination: General Description of Patient: uncomfortable, sitting in wheelchair - constantly moving, leaning in all directions Blood pressure 136/80, pulse 72, weight 43.1 kg (95 lb), SpO2 93%. FOCUSED NEUROLOGIC EXAMINATION: Mental Status: Alert and Oriented to person, place, and date Cranial Nerves: audible voice volume; constant involuntary lip pursing movements Motor: no true resting tremor; slight postural tremulousness but she IS holding very stiffly Coordination: no tremor, just difficulty with coordination Gait: in wheelchair Assessment: Ms. Espinoza is a 68 year old woman with choreiform dyskinetic movements of uncertain etiology, present for almost 6 years. She responds partly to VMAT-2 inhibitors and muscle relaxants. We can try adding third line options like carbamazepine. She can go ahead with her hip surgery. Plan: 1) continue clonazepam 2) continue Austedo 3) continue Flexeril 4) add Tegretol 200 mg - take this bid for 1 week and then increase tid (Eventually this whole dose could be duplicated) Follow Up: Ms. Espinoza will follow up in 6-12 months for an office visit. Diagnostic differential, prognosis, and treatment plan discussed with the patient. Level of service: Est level 3 (20-29 min). Time spent 26 min on the day of service, which included [id number] patient care, completing clinical documentation, obtaining and/or reviewing separately obtained history, performing a medically appropriate examination, counseling and educating the patient/family/caregiver, and ordering medications, tests, or procedures. Thank you for including me in the care of this interesting patient. Tai Hinojosa MD Staff Neurologist [facility] Cc: documented in this encounter [facility] 11-04-2023 Note Cardiovascular Labor atory Report FINAL IMPRESSIONS: Mild three-vessel coronary artery disease Normal global left ventricular systolic function by noninvasive imaging Moderate systemic hypertension RECOMMENDATIONS: The patient is at acceptable risk to proceed with surgery with no further cardiovascular testing needed at this time; recommend strict heart rate and blood pressure control and avoidance of major fluid shifts Aggressive cardiovascular risk factor modification Optimal medical therapy for coronary artery disease should include aspirin, moderate intensity statin therapy, and a beta-gilson Follow-up with Dr. Leonie Joya in 2 to 3 months PROCEDURES: Ultrasound-guided access to the left radial artery, bilateral selective coronary angiography via a left radial approach METHODS: After risks, benefits, and alternatives were explained, written informed consent was obtained. The patient was prepped and draped in usual sterile fashion over the left wrist. Local infiltration anesthesia was achieved of the left wrist. Using a micropuncture kit, access to the left radial artery was obtained. A 6 Vietnamese glide sheath was inserted without difficulty. Bilateral selective coronary angiography was performed using JR 4.0 and JL 4.0 catheters. After reviewing the images, it was elected to conclude the procedure. The catheters were removed. The radial sheath was removed with application of a TR band per protocol to achieve optimal hemostasis. FINDINGS: Hemodynamics: AO 145/85 [105] LEFT VENTRICULOGRAPHY: This was not performed. Ejection fraction is 70% by noninvasive stress test. CORONARY ARTERIES: Left main coronary artery: This arises from the superior portion of the left coronary cusp and bifurcates into the left anterior descending and left circumflex coronary arteries. It is free of significant stenosis Left anterior descending coronary artery: This shows calcific plaque and sequential 30 to 40% stenoses in the midportion of the vessel. Left circumflex coronary artery: This shows plaque disease with no high-grade stenoses. Right coronary artery: This is a dominant vessel arising from right coronary cusp and giving rise to the posterior descending and posterolateral branches. It shows a 30% proximal stenosis. The posterior descending branch shows sequential 30% stenoses. INDICATIONS: Abnormal stress test, preoperative evaluation [facility] 09-18-2023 Note [facility] Note Reason for cardiology consult: preop clearance for left hip surgery Chief Complaint: Left hip pain HPI: Melanie Espinoza is a 68 y.o. female without prior cardiac history but she has history of hypertension, hyperlipidemia, former smoker for about 10 years but she quit in the , history of movement disorder, chronic kidney disease, hypothyroidism. The patient requires left hip surgery and as preop evaluation [facility] did not show definite perfusion defect but it showed transit ischemic dilatation which could indicate severe three-vessel coronary artery disease. The patient had indication of moderate coronary artery calcification on prior chest CTA in 2020 The patient is wheelchair bound. She does a little movement only. She denies any chest discomfort at rest or with exertion. She denies any shortness of breath. She denies orthopnea or paroxysmal nocturnal dyspnea or dizziness or palpitations or legs edema. Patient states that her blood pressure at the detention go sometimes up to 200s and sometimes it send normal in the 130s. She used to smoke half pack per day for about 10 years however she quit in the . Regarding family history her father secondary to ID at age 74 and her mother secondary to stroke in her 70s. Cardiology ROS: GENERAL: Denies fever, chills, night sweats, weight loss. HEENT: Denies changes in vision, photophobia, changes in hearing, epistaxis, oral bleeding. CARDIOVASCULAR: Denies chest pain, exertional dyspnea, orthopnea/PND, lower extremity edema, palpitations, lightheadedness/dizziness. RESPIRATORY: Denies SOB, coughing, wheezing GI: Denies abdominal pain, nausea/vomiting, heartburn, melena/hematochezia. RENAL: Denies dysuria, hematuria, flank pain. MSK: Patient has significant muscle weakness due to movement disorder NEUROLOGIC: Denies LOC, umbness, headaches. SKIN: Denies abnormal rashes or bleeding. PSYCH: Denies significant anxiety, depression, sleep disturbances. Past Medical History She has a past medical history of Anemia, Anxiety, Arthritis, Chronic kidney disease, Dysphagia, Epilepsy (CMS/HCC), GERD (gastroesophageal reflux disease), Hyperlipidemia, Hypertension, Major depressive disorder, Osteoarthritis, Peripheral vascular disease (CMS/[facility]), and Rectal prolapse. Surgical History She has a past surgical history that includes Shoulder surgery and Rectal prolapse repair. Social History She reports that she has never smoked. She has never used smokeless tobacco. She reports that she does not drink alcohol. No history on file for drug use. Family History Family History Family history unknown: Yes Allergies Erythromycin, Azithromycin, Erythromycin base, and Clarithromycin Medications Current Outpatient Medications: alendronate (Fosamax) 70 mg tablet, Take 1 tablet by mouth 1 (one) time per week., Disp: , Rfl: amLODIPine (Norvasc) 10 mg tablet, Take 1 tablet by mouth in the morning., Disp: , Rfl: atorvastatin (Lipitor) 40 mg tablet, Take 1 tablet by mouth in the evening., Disp: , Rfl: Austedo 12 mg tablet, , Disp: , Rfl: busPIRone (Buspar) 10 mg tablet, take 1 and 1/2 tablet by mouth every morning and take 1 and 1/2 t... (REFER TO PRESCRIPTION NOTES)., Disp: , Rfl: calcium carbonate 600 mg calcium (1,500 mg) tablet, Take 600 mg by mouth., Disp: , Rfl: clonazePAM (KlonoPIN) 0.5 mg tablet, Take 1-2 tablets by mouth at bedtime., Disp: , Rfl: cyclobenzaprine (Flexeril) 10 mg tablet, Take 10 mg by mouth if needed in the morning, at noon, and at bedtime., Disp: , Rfl: ferrous sulfate 325 (65 Fe) MG tablet, Take 325 mg by mouth., Disp: , Rfl: fluticasone (Flonase) 50 mcg/actuation nasal spray, 2 sprays by nasal (alternating) route 1 (one) time each day., Disp: , Rfl: gabapentin (Neurontin) 300 mg capsule, take 1 capsule by mouth every morning then take 1 capsule by mout... (REFER TO PRESCRIPTION NOTES)., Disp: , Rfl: gabapentin (Neurontin) 600 mg tablet, , Disp: , Rfl: levothyroxine (Synthroid, Levoxyl) 100 mcg tablet, Take 1 tablet by mouth in the morning., Disp: , Rfl: loperamide (Imodium A-D) 2 mg tablet, Take 2 mg by mouth every 6 (six) hours if needed., Disp: , Rfl: menthol (Biofreeze, menthol,) 4 % gel, Apply 1 Application topically every 8 (eight) hours if needed., Disp: , Rfl: ondansetron (Zofran) 4 mg tablet, , Disp: , Rfl: pantoprazole (ProtoNix) 40 mg EC tablet, Take 1 tablet by mouth in the morning and at bedtime., Disp: , Rfl: primidone (Mysoline) 250 mg tablet, Take 1 tablet by mouth in the morning and at bedtime., Disp: , Rfl: sodium chloride 1,000 mg tablet, Take 1 tablet by mouth in the morning., Disp: , Rfl: sodium chloride 1,000 mg tablet, Take 1 g by mouth in the morning., Disp: , Rfl: sucralfate (Carafate) 1 gram tablet, , Disp: , Rfl: traZODone (Desyrel) 100 mg tablet, Take 1 ta (more content not included)... [facility] 09-18-2023 Note New patient here to establish care. She needs cleared for hip surgery with Dr. Plaza at [facility], scheduled for 10/11/2023. She had stress test last week. She denies all cardiac symptoms, such as chest pain, SOB, palpitations, lightheadedness/syncope. Review of Systems Musculoskeletal: Positive for arthritis, back pain, joint pain and muscle weakness. Neurological: Positive for tremors. All other systems reviewed and are negative. [facility] 08-13-2023 Note CALLED AND SPOKE ILYA NEVAREZ RN IN R/T PATIENTS MEDICAL CLEARANCE FOR UPCOMING SURGERY ON 08/25 AND PER RN PATIENT IS NOT CLEARED, PCP HAS ORDERED CARDIAC WORKUP D/T ABNORMAL EKG. PATIENT NEEDS SURGERY RESCHEDULED TO END OF SEPTEMBER. SURGERY RESCHEDULED TO 10/10 AND PRE-OP KARIE;T ON 09/25 [facility] 07-12-2023 History of Present illness Narrative Patient Name: Melanie Espinoza Date of : 1955 Date of Service: 07/12/2023 Facility: [facility] Type of Visit: Subsequent Visit Subjective Melanie Espinoza is a 68 y.o. female seen today at [facility] facility for regular visit. No new problems reported by staff or patient. Her hip surgery was moved up to August which she is happy about. She is ambulating in a wheelchair. She has pain but it is adequately controlled. Allergies: Erythromycin and Clarithromycin Code Status: [facility] BP 122/62 Wt 42.6 kg (94 lb) [...] Alexey Polo DO documented in this encounter [employer] 07-04-2023 Note Orthopedic Surgery Subjective Pain of [...] Anxiety Arthritis Chronic kidney disease Dysphagia Epilepsy ([facility]) GERD (gastroesophageal reflux disease) Hyperlipidemia Hypertension Major depressive disorder Osteoarthritis Peripheral vascular disease ([facility]) Rectal prolapse Objective General: Body [...] of the aforementioned history prepared by the advance practice provider, and I personally performed the [...] none Ernesto Plaza MD 07/04/23 2:18 PM [facility] 06-28-2023 Note HNO ID: [id number] Author: SATYA LIAO RN Service: ? Author Type: Registered Nurse Type: Progress Notes Filed: 06/28/2023 10:15 Note Text: MARVIN MOHINDER RN Reason for review or outreach: Medication Adherence review per request of payer Medication Adherence Review Details: Cholesterol FYI / ACTION REQUEST: Patient identified by name and date of Summary/Findings of review: Patient is seeing Non-[facility] PCP at [facility] Patient Attributed To: QAE Payer: [employer] Action Taken: Data submitted to Payer Other Contact made with patient: No, Chart review only. Signature: Satya Liao RN [facility] 06-28-2023 History of Present illness Narrative MARVIN VINES RN Reason for review or outreach: Medication Adherence review per request of payer Medication Adherence Review Details: Cholesterol FYI / ACTION REQUEST: Patient identified by name and date of Summary/Findings of review: Patient is seeing Non-[facility] PCP at [facility] Patient Attributed To: E Payer: [employer] [place] Action Taken: Data submitted to Payer Other Contact made with patient: No, Chart review only. Signature: Satya Liao RN documented in this encounter [facility] 06-28-2023 Note Patient Outreach (PANFILO TNAV) MELANIE ESPINOZA ([id number]) 1955 F Date Time Provider Department 06/28/23 SATYA LIAO During your visit today, we recorded the following information about you: Satya Liao RN 06/28/2023 10:15 AM Signed ACAnatoliy MOHINDER RN Reason for review or outreach: Medication Adherence review per request of payer Medication Adherence Review Details: Cholesterol FYI / ACTION REQUEST: Patient identified by name and date of Summary/Findings of review: Patient is seeing Non-[facility] PCP at [facility] Patient Attributed To: BISMARK Payer: [facility] Action Taken: Data submitted to Payer Other Contact made with patient: No, Chart review only. Signature: Satya Liao RN Allergies As of Date: 06/28/2023 Noted Allergy Reaction ERYTHROMYCIN 05/14/2023 16 - Unknown Date Reviewed: 05/14/2023 Reviewed by: Kaylen French MA - Fully Assessed Reason for Visit: ACM MOHINDER RN [[id number]] Cmt: Medication Adherence review per request of [...] Encounter Status:Closed by SATYA LIAO on 06/28/23 [facility] 06-12-2023 History of Present illness Narrative Patient Name: Melanie Espinoza Date of : 1955 Date of Service: 06/12/2023 Facility: [facility] Type of Visit: Subsequent Visit Subjective Melanie Espinoza is a 68 y.o. female seen today at [facility] facility for monthly visit. Resident fell 2 weeks. She was found on floor next to her bed and the side rail was down. She somehow got her siderail down and ended up on the floor. She did not have any injuries. She was supposed to see ortho tomorrow about getting her hip replaced but our transporter driver is sick and it has to be rescheduled. She is now ambulating with a wheelchair at all times and calling for assistance to transfer. She is using clonazepam with benefit. She doesn't have any side effects.I did receive a letter about it and they were only going to give a temporary supply due to quantity limits. Allergies: Erythromycin and Clarithromycin Code Status: [facility] BP 166/84 Pulse 96 Temp 36.6 C [...] Alexey Polo DO documented in this encounter [employer] 05-14-2023 Note HNO ID: [id number] Author: TAI HINOJOSA MD Service: ? Author Type: Physician Type: Progress Notes Filed: 05/14/2023 16:40 Note Text: May 14, 2023 Tai Hinojosa MD [address] / [address] [address] Esteban Garza MD ([facility]) [facility] [place] [address] Melanie Espinoza : 1955 Interval History: Melanie Espinoza is a 67 year old woman with a 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 The patient is seen with a transporter driver. Her symptoms persist. Increasing the clonazepam [...] to Austedo a (more content not included)... [facility] 05-14-2023 History of Present illness Narrative Patient Name: Melanie Espinoza Date of : 1955 Date of Service: 05/14/2023 Facility: [facility] Type of Visit: Subsequent Visit Subjective Melanie Espinoza is a 67 y.o. female seen today at [facility] facility for monthly visit. Melanie returned from [...] and has an appointment in May in [place] for possible hip replacement. Her right shoulder aches . She has an appointment with her neurologist this afternoon. She has no new problems. Allergies: Erythromycin and Clarithromycin Code Status: [facility] BP 129/77 Pulse 82 Temp 37.6 C [...] Alexey Polo DO documented in this encounter [facility] [employer] 04-11-2023 History of Present illness Narrative Patient Name: Melanie Espinoza Date of : 1955 Date of Service: 04/11/2023 Facility: [facility] Type of Visit: Subsequent Visit Subjective Melanie Espinoza is a 67 y.o. female seen today at [facility] facility for monthly visit. Melanie is having a lot of hip pain and has an appointment for ortho coming up to discuss hip replacement. had a fall recently and had to be sent to the ER. There were no fractures. She is back and has no new problems. Allergies: Erythromycin and Clarithromycin Code Status: [facility] BP 132/64 Temp 36.6 C (97.9 F) [...] Alexey Polo DO documented in this encounter [facility] [employer] 04-04-2023 Note Orthopedic Surgery Subjective Pain of [...] Torres MD Orthopaedic Surgery 04/04/23 12:44 PM [facility] 03-04-2023 Note HPI *Left hip Reported by patient. Location: left Quality: increasing Severity: moderate to severe pain Context: walker Aggravating Factors: cannot identify Associated Symptoms: no redness; no warmth; no ecchymosis; no drainage; no swelling; no fever; no chills; no calf pain Previous Surgery: surgical procedure: Prior Imaging: x ray ORIF left hip fx [id number] ORIF LT HIP ROS Patient reports no [...] hip OA/AVN Plan Refer to Dr Plaza [facility] 01-08-2023 Note HNO ID: [id number] Author: Tai Hinojosa MD Service: ? Author Type: Physician Type: Progress Notes Filed: 01/08/2023 2:41 PM Note Text: January 08, 2023 Tai Hinojosa MD [address] / [address] [address] Esteban Garza MD ([facility]) [facility] [place] [address] Melanie Espinoza : 1955 Interval History: Melanie [...] pulse 83, h (more content not included)... [facility] 06-18-2022 Evaluation note Encounter Date Diagnosis Assessment [...] arthroplasty of right shoulder (ICD-10 - Z96.611) [employer] Other 10-17-2022 Evaluation note* Encounter Date Diagnosis [...] exercises, these were demonstrated. Call with questions/concerns. [employer] Other 09-20-2022 Instructions* Patient Instructions* Tai Hinojosa MD - 01/02/2022 9:43 AM EDT 1) Double the dose of Austedo to 12 mg twice a day for 1 month, then increase further to 18 mg 2) continue clonazepam and methocarbamol 3) continue primidone for the action tremor [facility] History of Present illness Narrative* Tai Hinojosa MD - 01/02/2022 9:25 AM EDT January 02, 2022 Tai Hinojosa MD [address] / [address] [address] Esteban Garza MD ([facility]) [facility] [place] [address] Melanie Espinoza : 1955 Interval History: Melanie [...] on the day of service, which included [id number] patient care, completing clinical documentation, obtaining and/or reviewing separately obtained history, performing a medically appropriate examination, counseling and educating the patient/family/caregiver, and ordering medications, tests, or procedures. Thank you for including me in the care of this interesting patient. Tai Hinojosa MD Staff Neurologist [facility] Cc[facility]* Encounter Date Diagnosis Assessment Notes [...] PCP for LFTs and lipid profile monitoring. [employer] Other 08-22-2022 Evaluation note* Encounter Date Diagnosis [...] arthroplasty of right shoulder (ICD-10 - Z96.611) [employer] Other 07-14-2022 Evaluation note* Encounter Date Diagnosis [...] on her own. Call with questions/concerns . [employer] Other 07-05-2022 Evaluation note* Encounter Date Diagnosis Assessment Notes Treatment Notes Treatment Clinical Notes Oct, History of reverse total replacement of right shoulder joint (ICD-10 - Z98.890) [facility] Other 06-06-2022 Evaluation note* Encounter Date Diagnosis Assessment Notes Treatment Notes Treatment Clinical Notes Sep, Status post reverse total arthroplasty of right shoulder (ICD-10 - Z96.611) [facility] Other 03-30-2022 Miscellaneous Notes* Telephone Encounter - Mary Shoby Ma - 07/12/2021 1:25 PM EDT After [...] 07/12/2021 12:53 PM EDT Donita calling from [facility] States the pt received a letter from insurance company that medication Austedo 6 mg was denied. Will need prior authorization. Can you please assist with PA. [place] requesting that once PA approved to fax to them at [phone]. Thanks. * Telephone Encounter - Kailey Andrews - 07/12/2021 11:08 AM EDT Patient called and would like to know if the doctor can reach out to the insurance company to do a prior auth for Austedo 6mg to receive medication.Please advise Thank you, Kailey [facility] NotePROCEDURE: XR SHOULDER RT 2V or > [...] Electronically authenticated by: CM RAMIREZ Date: 2021-06-29 14:37[facility]02[facility] Evaluation note* Encounter Date Diagnosis Assessment [...] pain of right shoulder (ICD-10 - M25.511) [facility] Other 12-08-2021 Evaluation note* Encounter Date Diagnosis [...] stated that she has an appointment with heat treat worker to check her thyroid. She follow-up with her family doctor as well. [facility] Other Evaluation noteNo InformationNortUniversal Health Services [employer] Other Evaluation noteNo assessment information available 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 documented in this encounter [facility]* Diagnosis Iron deficiency anemia, unspecified iron deficiency anemia type- Primary S/P reverse total shoulder arthroplasty, right Multifactorial gait disorder Abnormality of gait Osteoarthritis of left hip, unspecified osteoarthritis type documented in this encounter [facility]* Diagnosis Primary osteoarthritis of left hip- Primary Tardive dyskinesia Subacute 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 Primary hypertension Unspecified essential hypertension documented in this encounter [facility]* Diagnosis Primary osteoarthritis of left hip- Primary Primary hypertension Unspecified essential hypertension documented in this encounter [facility]* Diagnosis Lingual facial buccal dyskinesia- Primary Orofacial dyskinesia Dyskinesia, tardive Subacute 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 documented in this encounter [facility] general Narrative - Reported* Type Description Date Medical History hypothyroidism Medical History anxiety and depression 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 Surgical History tubal revision 1984 Surgical History HIP FRACTURE 02/2020 Surgical History COLONSCOPY 2020 Surgical History RECTAL PROLAPSE 12/2020 Hospitalization History SEE ABOVE Hospitalization History RECTAL PROLAPSE 12/2020 [facility] Other History general Narrative - Reported* Type Description Date Medical History hypothyroidism Medical History anxiety and depression 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 Surgical History tubal revision 1984 Surgical History HIP FRACTURE 02/2020 Surgical History COLONSCOPY 2020 Surgical History RECTAL PROLAPSE 12/2020 Surgical History right reverse total shoulder 20 22 Hospitalization History SEE ABOVE Hospitalization History RECTAL PROLAPSE 12/2020 [facility] Other InstructionsNot on filedocumented in this encounter [facility] SystemInstructionsNot on filedocumented in this encounter [facility] SystemInstructionsNot on filedocumented in this encounter [facility] SystemInstructionsNot on filedocumented in this encounter [facility] Summary Purpose Family History No Family History [...] PM DNR Comfort Care Arrest (DNR -CCA) [place] 01/07/2021 4:37 PM 01/08/2021 7:11 PM Full Code 12/23/2020 7:31 AM 12/26/2020 12:12 PM Chief Complaint and Reason for Visit Chief Complaint Shoulder pain Shoulder pain Shoulder pain Shoulder pain Shoulder pain Z96.611 M75.101 Additional Source Comments INFORMATION SOURCE (unrecogn ized section and content) DATE CREATED AUTHOR 01/14/2020 [facility] DATE CREATED AUTHOR AUTHOR'S ORGANIZ ATION 02/23/2021 [facility] DATE CREATED AUTHOR AUTHOR'S ORGANIZ ATION 04/12/2021 [facility] DATE CREATED AUTHOR AUTHOR'S ORGANIZ ATION 09/26/2021 [facility] DATE CREATED AUTHOR AUTHOR'S ORGANIZ ATION 06/06/2022 [facility] DATE CREATED AUTHOR AUTHOR'S ORGANIZ ATION 08/09/2022 [facility] DATE CREATED AUTHOR AUTHOR'S ORGANIZ ATION 09/11/2023 [facility] DATE CREATED AUTHOR AUTHOR'S ORGANIZ ATION 11/14/2023 [facility] DATE CREATED AUTHOR AUTHOR'S ORGANIZ ATION 12/15/2023 [facility] REASON FOR VISIT (unrecogniz ed section [...] Alexey Polo DO Primary Care Provider Active Loading Checker Relationship Specialty Start Date End Date Esteban Garza [address] [place] [address] PCP - General Family Practice 07/21/18 Loading Checker Relationship Specialty Start Date End Date Esteban Garza [address] [place] [address] PCP - General Family Medicine 07/21/18 Loading Checker Relationship Specialty Start Date End Date Alexey Polo DO [address] [place] [address] [place] [address] PCP - General Family Medicine 03/27/22 Loading Checker Relationship Specialty Start Date End Date Alexey Polo DO [address] [place] [address] [place] [address] PCP - General Family Medicine 03/27/22 Loading Checker Relationship Specialty Start Date End Date Esteban Garza [address] [place] [address] PCP - General Family Medicine 07/21/18 Loading Checker Relationship Specialty Start Date End Date Alexey Polo DO [address] [place] [address] [place] [address] PCP - General Family Medicine 03/27/22 Loading Checker Relationship Specialty Start Date End Date Esteban Garza [address] [place] [address] PCP - General Family Medicine 07/21/18 Source Comments (unrecognize d section and content) In the event this informatio n is protected by the Federal Confidentiality of Alcohol and Drug Abuse Patient Records regulations: The Federal rules restrict any use of the information to criminally investigate or prosecute any alcohol or drug abuse patient.[facility] the event this information is protected by the Federal Confidentiality of Alcohol and Drug Abuse Patient Records regulations: The Federal rules restrict any use of the information to criminally investigate or prosecute any alcohol or drug abuse patient.[facility] General[facility] the event this information is protected by the Federal Confidentiality of Alcohol and Drug Abuse Patient Records regulations: The Federal rules restrict any use of the information to criminally investigate or prosecute any alcohol or drug abuse patient.[facility] General[facility] the event this information is protected by the Federal Confidentiality of Alcohol and Drug Abuse Patient Records regulations: The Federal rules restrict any use of the information to criminally investigate or prosecute any alcohol or drug abuse patient.[facility] Goals (unrecognized section and content) Goals may [...] BE BASED ON THE PRIMARY CLINICAL RECORDS. [facility] provides no warranty or guarantee of the accuracy or completeness of information in this document.
--- NOTE | 2023-12-24 01:02 | XR_ITS ---
The [address] [address] Patient Name: PATTY ROSE MRN: [id number] date: 1955 Sex: F Assigned Patient Location: ER Current Patient Location: Accession/Order Number: [id number] Exam Date: 12/24/2023 01:25 Report Date: 12/24/2023 06:49 At the request of: EVA MARKER Procedure: XR chest 1V EXAMINATION: XR chest 1V HISTORY: hx covid , sob COMPARISON: XR chest 05/11/2023 FINDINGS: LUNGS: 2 small patchy opacities within lateral right lung base. Left lung is clear. VASCULATURE: No increased pulmonary vasculature. PLEURA: No pneumothorax, effusion, or pleural thickening. CARDIAC: No cardiomegaly or cardiac silhouette abnormality. MEDIASTINUM: No visible mass or adenopathy. BONES: Old healed rib fractures bilaterally. Stable, but abnormal orientation of the glenoid prosthetic component of the right shoulder and fractured screw; unchanged. OTHER: Negative. XR/XR chest 1V IMPRESSION: 1. Mild right basilar infiltrates; new since prior study. Electronically authenticated by: MESHA CARRASCO Date: 12/24/2023 06:49
--- NOTE | 2023-12-24 01:02 | ECG_ITS ---
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
--- NOTE | 2023-12-24 01:04 | ED_ITS ---
HPI - Recheck/Abnormal Lab/Rx General Chief Complaint: Recheck/Abnormal Lab/Rx Stated Complaint: WEAKNESS COVID + Time Seen by Provider: 12/24/23 00:52 Source: patient Mode of arrival: ambulance Limitations: no limitations History of Present Illness HPI narrative: This 68-year-old female is transferred from the [facility] where she currently resides for evaluation of a low sodium. The patient had routine blood work drawn on December 22. It was not evaluated until midnight on December 23 when the provider called the facility and requested that the patient be transferred to the hospital. The patient states she is annoyed because she was sleeping in her bed. She was diagnosed with COVID yesterday. She states the nurses woke her up and told her she was going to the hospital. He denies any n ausea or vomiting. She has had some diarrhea recently. She denies any chest pain or shortness of breath. She is hungry. She denies any abdominal pain. She has no lower extremity pain or swelling. She states she feels somewhat cold after being outside. She was seen in this emergency department in October after she had a seizure or seizure-like activity and she returned to baseline after being in the emergency department and was discharged back to the [facility] the [facility]. I reviewed her labs and workup from that emergency department visit. She was hyperthyroid at that time. She had a normal CT scan and labs with a sodium in the 130s. She is not on any diuretics according to her medical records. Related Data Home Medications ?Medication ?Instructions ?Recorded ?Confirmed amlodipine 10 mg tablet 10 mg PO Q24H 04/03/23 12/24/23 atorvastatin 40 mg tablet 40 mg PO Q24H 04/03/23 12/24/23 buspirone 10 mg tablet 10 mg PO Q12H 04/03/23 12/24/23 calcium carbonate 600 mg-vitamin 1 tab PO BID 04/03/23 12/24/23 D3 10 mcg (400 unit) tablet (Calcium with Vitamin D) clonazepam 0.5 mg tablet 0.5 mg PO Q8H 04/03/23 12/24/23 cyclobenzaprine 10 mg tablet 10 mg PO Q8H 04/03/23 12/24/23 deutetrabenazine 12 mg tablet 12 mg PO Q12H 04/03/23 12/24/23 (Austedo) dextromethorphan-guaifenesin 10 10 ml PO Q6H 04/03/23 05/11/23 mg-100 mg/5 mL oral syrup fluticasone propionate 50 1 spray intranasal Q24H 04/03/23 12/24/23 mcg/actuation nasal spray,suspension gabapentin 300 mg capsule 300 mg PO Q12H 04/03/23 12/24/23 gabapentin 600 mg tablet 600 mg PO Q24H 04/03/23 12/24/23 loperamide 2 mg capsule 2 mg PO Q6H PRN loose stool 04/03/23 05/11/23 (Anti-Diarrheal (loperamide)) pantoprazole 40 mg tablet,delayed 40 mg PO DAILY 04/03/23 12/24/23 release (Protonix) polyethylene glycol 3350 17 17 g PO DAILY 04/03/23 05/11/23 gram/dose oral powder (Miralax) primidone 50 mg tablet 250 mg PO Q24H 04/03/23 12/24/23 sucralfate 1 gram tablet 1 g PO Q6H 04/03/23 05/11/23 trazodone 100 mg tablet 100 mg PO Q24H 04/03/23 12/24/23 alendronate 70 mg tablet 70 mg PO .weekly 12/24/23 12/24/23 aspirin 325 mg capsule 325 mg PO BID 12/24/23 12/24/23 carbamazepine 200 mg tablet 200 mg PO Q8H 12/24/23 12/24/23 metoprolol succinate 50 mg 50 mg PO DAILY 12/24/23 12/24/23 tablet,extended release 24 hr mirtazapine 15 mg tablet 15 mg PO .hs 12/24/23 12/24/23 sodium chloride 1 gram tablet 1,000 mg PO DAILY 12/24/23 12/24/23 Previous Rx's ?Medication ?Instructions ?Recorded ferrous sulfate 325 mg (65 mg 325 mg PO BID 30 days #60 tabs 05/12/23 iron) tablet levothyroxine 100 mcg tablet 100 mcg PO ACB 30 days #30 tabs 05/12/23 Allergies Allergy/AdvReac Type Severity Reaction Status Date / Time erythromycin base AdvReac Mild Hives Verified 12/24/23 00:52 Review of Systems ROS Status of ROS 10 or more systems reviewed and unremark able except as noted in history and below PFSH PFSH Medical History (Updated 12/24/23 @ 02:09 by Cleo Garg MD) Anxiety ?F41.9 - Anxiety disorder, unspecified (ICD-10) Hyperlipidemia ?E78.5 - Hyperlipidemia, unspecified (ICD-10) Chronic hyponatremia ?E87.1 - Hypo-osmolality and hyponatremia (ICD-10) Rectal prolapse ?K62.3 - Rectal prolapse (ICD-10) Tremors of nervous system ?R25.1 - Tremor, unspecified (ICD-10) Tardive dyskinesia ?G24.01 - Drug induced subacute dyskinesia (ICD-10) Hypertension ?I10 - Essential (primary) hypertension (ICD-10) Surgical History H/O tubal ligation ?Z98.51 - Tubal ligation status (ICD-10) Family History Father Family history of cancer Family history of myocardial infarction Family history of hypertension Sister Family history of cancer Mother Family history of stroke Family history of hypertension Social History Within the past year, how often did you have a drink containing alcohol: never Score interpretation: A score less than 3 is consistent with normal alcohol consumption. Smoking status: Former smoker Non-prescribed substance use: denies use Highest level of school completed/degree received: high school graduate Exam Narrative Exam Narrative: Vital signs and Nursing Notes reviewed: Patient is afebrile with a normal pulse, normal blood pressure, she is not hypoxic with pulse ox of 96% on room air General: Awake, alert, oriented, no acute distress, lying comfortably on the stretcher HEENT: Normocephalic atraumatic, mucous membranes are moist and pink, eyes are clear, normal conjunctiva, vision is grossly intact Neck: Supple, no meningeal signs, no JVD Chest: Lungs are clear to auscultation with good air entry, there is no wheezing rhonchi or rales appreciated no accessory muscle use, patient is speaking in complete sentences-no chest wall tenderness to palpation CVS: Regular rate and rhythm S1-S2, no murmurs rubs or gallops, pulses are brisk and equal bilaterally ABD: Soft, nondistended, nontender, no rebound guarding or rigidity, bowel sounds are normal, no pulsatile masses appreciated Extremities: Moving all extremities, no lower extremity tenderness or swelling noted, negative Homans' sign, pulses are brisk and equal bilaterally Skin: Normal in appearance without rash,pallor, petechiae or purpura Neuro: No focal deficits, speech is clear, 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, vision is intact, upper and lower extremity strength and sensation is intact Constitutional Vital Signs, click to edit/add: Last Vital Signs Temp 98.0 F 12/24/23 00:52 Pulse 60 12/24/23 00:52 Resp 15 12/24/23 00:52 BP 116/46 L 12/24/23 02:08 Pulse Ox 97 12/24/23 01:12 O2 Del Method Room Air 12/24/23 01:12 Course Vital Signs Vital signs: Vital Signs Temperature 98.0 F 12/24/23 00:52 Pulse Rate 60 12/24/23 00:52 Respiratory Rate 15 12/24/23 00:52 Blood Pressure 116/70 12/24/23 00:52 Pulse Oximetry 96 12/24/23 00:52 Oxygen Delivery Method Room Air 12/24/23 00:52 Temperature 98.0 F 12/24/23 00:52 Pulse Rate 60 12/24/23 00:52 Respiratory Rate 15 12/24/23 00:52 Blood Pressure 116/46 L 12/24/23 02:08 Pulse Oximetry 97 12/24/23 01:12 Oxygen Delivery Method Room Air 12/24/23 01:12 MDM - Recheck/Abnormal Lab/Rx MDM Narrative Medical decision making narrative: This 68-year-old female was transferred from the [facility] where she currently resides for evaluation of hyponatremia. The patient was recently diagnosed with COVID-19. She had routine blood work drawn yesterday and apparently her sodium was 121. The patient was aggravated upon arrival stating that they woke her up from sleep to send her to the emergency department in the middle of the night. She is not having any symptoms. She generally does not feel well with COVID but otherwise is not having any generalized weakness, focal weakness, headache, chest pain shortness of breath nausea or vomiting. She has had some mild diarrhea. An EKG done upon arrival was a sinus bradycardia 58 bpm with normal intervals and no acute changes. An IV was placed and she was given IV fluids. She was hungry upon arrival and was given cupcakes and salty snacks as well as IV fluids. Routine labs are reviewed. Her sodium this morning is 131, chloride is mildly low at 96, glucose is mildly low at 68. She has a normal white count and hemoglobin. X-ray of the chest is negative for acute findings. She will be returned to the extended care facility with copies of her labs. She is otherwise stable for discharge. While awaiting transfer back to the extended care facility she will be given gentle normal saline hydration. Medical Records Attestation: I reviewed the patient's medical records. Lab Data Attestation: I reviewed the patient's lab results. Labs: Lab Results 12/24/23 Range/Units 00:57 WBC 4.5 (4.0-11.0) 10^3/uL RBC 3.83 L (4.20-5.40) 10^6/uL Hgb 11.2 L (12.0-16.0) g/dL Hct 34.3 L (36.0-48.0) % MCV 89.6 (81.0-99.0) fL MCH 29.2 (26.7-34.0) pg MCHC 32.7 (29.9-35.2) g/dL RDW 16.1 H (11.0-15.0) % Plt Count 521 H (150-450) 10^3/uL MPV 7.9 L (9.5-13.5) fL Neut % (Auto) 48.0 (43.0-75.0) % Lymph % (Auto) 28.4 (20.5-60.0) % [place] % (Auto) 18.8 H (1.7-12.0) % Eos % (Auto) 3.5 (0.9-7.0) % Baso % (Auto) 0.9 (0.2-2.0) % Neut # (Auto) 2.2 (1.4-6.5) 10^3/uL Lymph # (Auto) 1.3 (1.2-3.8) 10^3/uL [place] # (Auto) 0.9 H (0.3-0.8) 10^3/uL Eos # (Auto) 0.2 (0.0-0.7) 10^3/uL Baso # (Auto) 0.0 (0.0-0.1) 10^3/uL Abs Immat Gran (auto) 0.02 (0.00-0.03) 10^3/uL Imm/Tot Granulo (auto) 0.4 (0.0-0.5) % Sodium 131 L (136-145) mmol/L Potassium 4.1 (3.5-5.1) mmol/L Chloride 96 L (98-107) mmol/L Carbon Dioxide 28.7 (21.0-32.0) mmol/L Anion Gap 10.4 BUN 12.0 (7.0-18.0) mg/dL Creatinine 0.53 L (0.55-1.02) mg/dL Est GFR ( Amer) >60 (>=60) Est GFR (Non-Af Amer) >60 (>=60) BUN/Creatinine Ratio 22.6 Glucose 68 L (74-106) mg/dL Calcium 8.1 L (8.5-10.1) mg/dL Total Bilirubin 0.1 L (0.2-1.0) mg/dL AST 32 (15-37) U/L ALT 20 (14-59) U/L Alkaline Phosphatase 138 H (46-116) U/L NT-Pro-B Natriuret Pep 108.0 (<=900.0) pg/mL Total Protein 6.1 L (6.4-8.2) g/dL Albumin 2.5 L (3.4-5.0) g/dL Globulin 3.6 g/dL Albumin/Globulin Ratio 0.7 ECG Data Attestation: I personally reviewed and interpreted this ECG as follows: (Sinus bradycardia 58 bpm, MO interval 130 ms QRS duration 186 ms QT 444 ms QTc 440 ms, no acute ST segment elevation or T wave inversion axis is normal) Discharge Plan Discharge Chief Complaint: Recheck/Abnormal Lab/Rx Clinical Impression: COVID-19, Hyponatremia Patient Disposition: Home, Self-Care Time of Disposition Decision: 02:09 Condition: Good Prescriptions / Home Meds: No Action levothyroxine 100 mcg Tablet 100 mcg PO ACB 30 Days Qty: 30 0RF ferrous sulfate 325 mg (65 mg iron) Tablet 325 mg PO BID 30 Days Qty: 60 0RF aspirin 325 mg capsule 325 mg PO BID carbamazepine 200 mg tablet 200 mg PO Q8H alendronate 70 mg tablet 70 mg PO .weekly metoprolol succinate 50 mg tablet extended release 24 hr 50 mg PO DAILY mirtazapine 15 mg tablet 15 mg PO .hs sodium chloride 1 gram tablet 1,000 mg PO DAILY amlodipine 10 mg tablet 10 mg PO Q24H atorvastatin 40 mg tablet 40 mg PO Q24H Austedo 12 mg tablet 12 mg PO Q12H buspirone 10 mg tablet 10 mg PO Q12H clonazepam 0.5 mg tablet 0.5 mg PO Q8H cyclobenzaprine 10 mg tablet 10 mg PO Q8H fluticasone propionate 50 mcg/actuation spray,suspension 1 spray INTRANASAL Q24H gabapentin 300 mg capsule 300 mg PO Q12H gabapentin 600 mg tablet 600 mg PO Q24H primidone 50 mg tablet 250 mg PO Q24H sucralfate 1 gram tablet 1 g PO Q6H trazodone 100 mg tablet 100 mg PO Q24H pantoprazole [Protonix] 40 mg tablet,delayed release (DR/EC) 40 mg PO DAILY polyethylene glycol 3350 [Miralax] 17 gram/dose powder 17 g PO DAILY loperamide [Anti-Diarrheal (loperamide)] 2 mg capsule 2 mg PO Q6H PRN (Reason: loose stool) dextromethorphan-guaifenesin 10-100 mg/5 mL syrup 10 ml PO Q6H calcium carbonate-vitamin D3 [Calcium with Vitamin D] 600 mg-10 mcg (400 unit) tablet 1 tab PO BID Print Language: Japanese Instructions: Hyponatremia (ED), Droplet Precautions (ED), COVID-19 and Chronic Health Conditions (ED) Referrals: JOHN POLO [Primary Care Provider] - 1 week
[2023-12-24 01:12] VITALS: O2SAT 97
[2023-12-24 01:15] LABS: Basophils Percent Auto 0.9 % (0.2-2.0); Eosinophils Absolute Auto 0.2 10^3/uL (0.0-0.7); Eosinophils Percent Auto 3.5 % (0.9-7.0); Hematocrit 34.3 % (36.0-48.0); Hemoglobin 11.2 g/dL (12.0-16.0); Immature Granulocytes Abs Auto 0.02 10^3/uL (0.00-0.03); Immature Granulocytes Pct Auto 0.4 % (0.0-0.5); Lymphocytes Absolute Auto 1.3 10^3/uL (1.2-3.8); Lymphocytes Percent Auto 28.4 % (20.5-60.0); Mean Corpuscular HGB Conc 32.7 g/dL (29.9-35.2); Mean Corpuscular Hemoglobin 29.2 pg (26.7-34.0); Mean Corpuscular Volume 89.6 fL (81.0-99.0); Mean Platelet Volume 7.9 fL (9.5-13.5); Monocytes Absolute Auto 0.9 10^3/uL (0.3-0.8); Monocytes Percent Auto 18.8 % (1.7-12.0); Neutrophils Absolute Auto 2.2 10^3/uL (1.4-6.5); Platelet Count 521 10^3/uL (150-450); Red Blood Count 3.83 10^6/uL (4.20-5.40); Red Cell Distribution Width 16.1 % (11.0-15.0); White Blood Count 4.5 10^3/uL (4.0-11.0)
[2023-12-24] MEDS: 0.9 % SODIUM CHLORIDE 1,000 ML 125 ML IV (01:21)
[2023-12-24] MEDS: ACETAMINOPHEN 325 MG TABLET 650 MG PO (01:21)
[2023-12-24] MEDS: 0.9 % SODIUM CHLORIDE 500 ML IV (01:21)
[2023-12-24 01:29] LABS: Alanine Aminotransferase 20 U/L (14-59); Albumin Globulin Ratio 0.7; Albumin Level 2.5 g/dL (3.4-5.0); Alkaline Phosphatase 138 U/L (46-116); Anion Gap 10.4; Aspartate Amino Transferase 32 U/L (15-37); BUN Creatinine Ratio 22.6; Bilirubin Total 0.1 mg/dL (0.2-1.0); Calcium 8.1 mg/dL (8.5-10.1); Carbon Dioxide 28.7 mmol/L (21.0-32.0); Chloride 96 mmol/L (98-107); Estimated GFR (African America >60 (>=60); Estimated GFR (Non-African Ame >60 (>=60); Globulin 3.6 g/dL; Glucose 68 mg/dL (74-106); Potassium 4.1 mmol/L (3.5-5.1); Sodium 131 mmol/L (136-145); Total Protein 6.1 g/dL (6.4-8.2)
[2023-12-24 02:08] VITALS: BP 116/46
--- NOTE | 2023-12-24 02:31 | PC.NURSE ---
Report called to [facility] and staff provided update on patient. [facility] to transport pt back to facility with ETA of [id number]. facility aware. Pt remains in room with no needs at this time.
== END 2023-12-24 04:55 | disposition home or self-care (01) ==
PROVIDERS: Emergency Provider Emergency Medicine; PCP Family Medicine
DX: E87.1 Hypo-osmolality and hyponatremia (principal); U07.1 COVID-19; R19.7 Diarrhea, unspecified; Z87.891 Personal history of nicotine dependence
CPT/HCPCS: 36415; 71045; 80053; 83880; 85025; 93005; 99285

== ENCOUNTER 2024-05-06 20:01 | Outpatient (OUT) | payer MEDICARE, MEDICAID, SELFPAY ==
--- OUTSIDE RECORDS SUMMARY | 2024-05-06 20:16 | XMS_ITS | CCD ---
Author Organization [facility] Care Team Providers Care Clinical Data Associate Name Role Phone HERVE STARKEY Admitting Unavailable ESTEBAN GARZA Referring Unavailable ESTEBAN GARZA Primary Care Unavailable HERVE STARKEY Attending Unavailable Alexey Polo Unavailable Radha Bosch Unavailable Stevenson Corbin Unavailable Sena Eugene Unavailable MD Stevenson Corbni Attending Provider [phone] DO Alexey Polo Primary Care Provider Esteban Garza Primary Care Provider [phone] Esteban Garza Primary Care Provider [phone] CHRIST, DR ALEXEY Garcia Primary Care Unavailable ZARI ., LENA Attending Unavailable ZARI ., LENA Admitting Unavailable [...] Unavailable PAY ., DR MILES Consulting Unavailable CHRIST, DR ALEXEY Garcia Primary Care Unavailable MARKER [...] ALEXEY Garcia Primary Care Unavailable SIMON ANDRADE Unavailable FURLONG, DR ALEXEY Garcia Primary Care Unavailable SOFI DISLA Attending Unavailable SOFI DISLA Admitting Unavailable SOFI DISLA Consulting Unavailable JEFE SAEED Unavailable Juan Luisng, DO [place] Primary Care Provider [phone] MD Stevenson Corbin Attending Provider Furlong DOAlexey Primary Care Provider Esteban Garza Primary Care Provider JUAN LUISNG, ALEXEY Garcia Referring Unavailable FURLONG, ALEXEY Garcia Primary Care Unavailable FURLONG, ALEXEY Garcia Referring Unavailable FURLONG, ALEXEY Garcia Primary Care Unavailable FURLONG, ALEXEY Garcia Referring Unavailable FURLONG, ALEXEY Garcia Primary Care Unavailable FURLONG, ALEXEY Garcia Referring Unavailable FURLONG, ALEXEY Garcia Primary Care Unavailable Esteban Garza Primary Care Provider [phone] ESTEBAN GARZA Primary Care Unavailable TAI HINOJOSA Attending Unavailable ESTEBAN GARZA Primary Care Unavailable TAI HINOJOSA Attending Unavailable TAI HINOJOSA Attending Unavailable ESTEBAN AGRZA Primary Care Unavailable LEONIE JOYA Attending Unavailable MELA, ERNESTO Referring Unavailable MELA, ERNESTO Referring Unavailable MELA, ERNESTO Referring Unavailable MELA, ERNESTO Referring Unavailable MELA, ERNESTO Attending Unavailable MELA, ERNESTO Admitting Unavailable MELA, ERNESTO Attending Unavailable HERVE STARKEY Referring Unavailable MELA, ERNESTO Referring Unavailable TOAN, SAMKATHIE Attending Unavailable MELA, ERNESTO Referring Unavailable JAKYHERVE Crooks Attending Unavailable MELA, ERNESTO Attending Unavailable MELA, ERNESTO Attending Unavailable MELA, ERNESTO Attending Unavailable MELA, ERNESTO Attending Unavailable EL[facility]HAWY, EHAB Admitting Unavailable EL[place]HAWY, EHAB Attending Unavailable [place], EHAB Referring Unavailable MELA, ERNESTO Referring Unavailable Furlong, DO Alexey Primary Care Provider MD Stevenson Corbin Attending Provider DO Nickolas Hawthorne Attending Provider [phone] Bgleeann DO Alexey Primary Care Provider [phone] Stevenson Corbin MD Attending Provider Nickolas Hawthorne DO Attending Provider [phone] Nickolas Hawthorne Admitting Unavailable Furlong, Alexey Primary Care Unavailable Marine, Nickolas A Attending Unavailable Nickolas Hawthorne A Attending Unavailable Furlong, Alexey Primary Care Unavailable Nickolas Hawthorne Admitting Unavailable Stevenson Corbin Admitting Unavailable Stevenson Corbin Attending Unavailable Furlong, Alexey Primary Care Unavailable Nickolas Hawthorne A Attending Unavailable Furlong, Alexey Primary Care Unavailable Marine, Nickolas A Admitting Unavailable Marine, Nickolas A Attending Unavailable Marine, Nickolas A Admitting Unavailable Furlong, Alexey Primary Care Unavailable Marine, Nickolas A Admitting Unavailable Furlong, Alexey Primary Care Unavailable Breezy Hawthornein A Attending Unavailable Esteban Garza MD Primary Care Provider [phone] Allergies Allergy Classification Reported Allergen(s) Allergy Type Date of Onset Reaction(s) Facility (12 sources) Azithromycin; Translations: [AZITHROMYCIN] Drug Allergy 03-01-20 20 Unknow [facility] Repository Comment on above: Listed as an allergy on her PCP notes (20 sources) Erythromycin; Translations: [erythromycin] Drug Allergy 07-24-19 17 Nausea And Vomiting, Unknown, GI intolerance, Other [facility] (16 sources) erythromycin base; Translations: [Erythromycin Base] Allergy to substance 11-29-19 21 Unknown [facility] (18 sources) Clarithromycin; Translations: [CLARITHROMYCIN] Drug Allergy 02-04-20 21 Nausea And Vomiting [facility] (1 source) Azithromycin Drug Allergy 02-12-20 [facility] Repository (3 sources) Acetaminophen / HYDROcodone Drug Allergy 03-24-20 24 GI intolerance [facility] (3 sources) Azithromycin Drug Allergy 09-14-19 Unknown [facility] (3 sources) Clarithromycin Propensity to adverse reactions 02-04-20 21 Nausea And Vomiting, GI intolerance [facility] Medications Current Medications Medication Drug Class(es) Dates Sig (Normalized) Sig (Original) acetaminophen 500 mg oral tablet (20 sources) Start: 02-11-2024 take 1 tablet by mouth every six hours as needed for pain Acetaminophen 500 mg tablet Active 500 MG PO Q6H as needed for Pain February 10, 2024 11:00pm DO NOT RECONCILE UNTIL DOS 02/12/24 TO BE USED POST OP Start: 10-09-2021 take 2 tablets by mo uth three times daily as needed for pain Acetaminophen (Tylenol Extra Strength) 500 mg Tablet Active 1000 MG PO Three times daily as needed for pain October 08, 2021 11:00pm take 1 tablet by courtney th every eight hours as needed acetaminophen (TYLENOL EXTRA STRENGTH) 500 mg tablet Take 1 tablet (500 mg total) by mouth every 8 (eight) hours as needed. Active take 1 tablet by courtney th [...] every 8 hours as needed for pain. amantadine hydrochloride 100 mg oral tablet (8 sources) Influenza A M2 Protein Inhibitor Start: 12-27-19 take 1 tablet by mouth twice daily Amantadine Hcl 100 mg tablet Active 100 MG PO Twice daily January 28, 2024 11:00pm amLODIPine 10 mg oral tablet (20 sources) Dihydropyridine Calcium Channel Gilson Start: 11-22-19 take 1 tablet by mouth once daily Amlodipine 10 mg tablet Active 10 MG PO Daily January 28, 2024 11:00pm FreeTextSi tablet Orally Once a day; Note: Source Status: Taking; Provider: Hiro Kam Start: 09-13-2021 End: 01-29-2024 take 2 tablets by mouth once daily Amlodipine 5 mg tablet Discontinued 10 MG PO Daily September 12, 2021 11:00pm January 29, 2024 12:49pm Start: 09-13-2021 End: 01-29-2024 take 10 mg by mouth once daily Amlodipine Discontinued 10 MG PO Daily September 13, 2021 12:00am January 29, 2024 1:49pm Start: 07-27-2020 take 1 tablet by courtney [...] Take 500 mg by mouth once daily. aspirin 81 mg delayed release oral tablet (5 sources) Platelet Aggregation Inhibitor, Nonsteroidal Anti-inflammatory Drug Start: 01-29-20 24 Aspirin (Adult Low Dose Aspirin) 81 mg tablet,delayed release (DR/EC) Active 81 MG PO Daily January 28, 2024 11:00pm atorvastatin 40 mg oral tablet (20 sources) HMG-CoA Reductase Inhibitor Start: 01-09-20 21 take 1 tablet by mouth once daily atorvastatin (LIPITOR) 40 mg tablet Take 1 tablet (40 mg total) by mouth nightly. 30 tablet 01/08/2021 Active Comment on above: Take 40 mg by mouth once daily. Calcium + D3 600-800 MG-UNIT (10 sources) take 600-800 tablets by mouth once daily take 600-800 tablets by mouth on ce daily Calcium + D3 600-800 MG-UNIT 2 tablet with a meal Orally Once a day Active calcium carbonate 1500 mg oral tablet (6 sources) take 1 tablet by mouth in the morning calcium carbonate 1500 (600 Ca) MG tablet Take 600 mg by mouth in the morning. Active Comment on above: Take 600 mg by mouth . calcium carbonate 1500 mg / cholecalciferol 200 unt oral tablet (20 sources) Vitamin D Start: 2 take 2 tablets by mouth once daily Calcium Carbonate-Vitamin D3 600 mg-5 mcg (200 unit) Tablet Active 2 TAB PO Daily September 12, 2021 11:00pm calcium carbonat e-vitamin D3 (CALCIUM 600 WITH VITAMIN D3) 600 mg(1,500mg) - 400 unit tablet,chewable Chew 2 tablets and swallow daily. Active camphor 0.002 mg/mg / menthol 0.035 mg/mg topical gel (5 sources) Start: 01-29-2024 Camphor-Menthol (Freeze It Relief) 0.2-3.5 % gel Active 1 APPLIC TOPICAL 2-4 TIMES PER DAY as needed for pain January 28, 2024 11:00pm rub in gently and completely carBAMazepine 200 mg oral tablet (9 sources) Mood Stabilizer Start: 11-12-2023 End: 02-10-2024 take 1 tablet by mouth three times daily Carbamazepine 200 mg tablet Active 200 MG PO Three times daily January 28, 2024 11:00pm celecoxib 100 mg oral capsule (4 sources) Nonsteroidal Anti-inflammatory Drug take 1 capsule by mouth in the morning celecoxib (CeleBREX) 100 MG capsule Take 100 mg by mouth in the morning and 100 mg in the evening. Active cephalexin 500 mg oral capsule (3 [...] a day for 30 day(s) Active clonazePAM 0.5 mg oral tablet (20 sources) Benzodiazepine Start: 01-29-2024 take 1 tablet by mouth three times daily Clonazepam 0.5 mg tablet Active 0.5 MG PO Three times daily January 28, 2024 11:00pm 0.5-1.0 tid Start: 01-08-2023 take 1.5 tablets by mouth [...] tablet by mouth three times a day 12/08/2020 Active Start: 07-05-2020 End: 09-13-2021 take 1 tablet by mouth twice daily as needed for anxiety Clonazepam 1 mg Tablet Discontinued 1 MG PO Twice daily as needed for Anxiety July 04, 2020 11:00pm September 13, 2021 11:00am Start: 06-28-2020 End: 07-05-2020 take 1 tablet by mouth three times daily Clonazepam 1 mg Tablet Discontinued 1 MG PO Three times daily June 27, 2020 11:00pm July 05, 2020 9:25am Comment on above: Take 1 tablet by courtney th three times daily for 90 days. [including bedtime] Take 1 mg by mouth t wice daily as needed. Take 1.5 tablets by mouth three times daily for 90 days. [including bedtime] cyclobenzaprine hydrochloride 10 mg oral tablet (20 sources) Muscle Relaxant Start: 023 take 1 tablet by mouth three times daily as needed for muscle spasms cyclobenzaprine (FLEXERIL) 10 mg tablet Take 1 tablet (10 mg total) by mouth 3 (three) times a day as needed for muscle spasms. 12/23/2022 Active deutetrabenazine 12 mg oral tablet (20 sources) Start: take 2 tablets by mouth in the morning, then take 2 tablets by mouth at bedtime, then take 2 tablets by mouth twice daily deutetrabenazine 12 mg tablet Take 2 tablets by mouth in the morning and 2 tablets before bedtime. 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 02/26/2022 Active Start: 02-02-2022 End: 05-03-2022 take [...] 0 01/02/2022 02/01/2022 Active Start: 05-17-2021 End: 01-29-2024 take 1 tablet by mouth twice daily Deutetrabenazine (Austedo) 6 mg tablet Discontinued 6 MG PO Twice daily September 12, 2021 11:00pm January 29, 2024 1:08pm Comment on above: Take 1 tablet (6 [...] mg/ml / guaiFENesin 20 mg/ml oral solution (18 sources) Uncompetitive A-keterf-J-aspartate Receptor Antagonist, Sigma-1 Agonist take 10 mL by mouth every six hours as needed for cough dextromethorphan-guaiFENesin (ROBITUSSIN-DM) 10-100 mg/5 mL liquid Take 10 mL by mouth every 6 (six) hours as needed for cough. Give 10 milliliter by mouth every 6 hours as needed for cough Active Comment on above: Take 10 mL by mouth every 6 hours as needed. docusate sodium 100 mg oral capsule (3 sources) [facility] t: 10 2 take 1 capsule by mouth twice daily as needed for constipation Docusate Sodium (Colace) 100 mg capsule Active 100 MG PO Twice daily as needed for Constipation 01 02February 10, 2024 11:00pm ferrous sulfate 325 mg oral tablet (20 sources) [facility] t: 06 0 1- 20 22 take 1 tablet by mouth every week Ferrous Sulfate 325 mg (65 mg iron) Tablet Active 325 MG PO 3 Times a [...] fluticasone propionate (FLONASE) 50 mcg/actuation nasal spray 03/19/2022 Active Start: 09-21-2021 Fluticasone Pr opionate 50 MCG/ACT Nasal Suspension As directed. Quantity: 0 Refills: 0 Ordered: 21-Sep-2021 DO Start : 21-Sep-2021 Active Start: 09-13-2021 Fluticasone Pr opionate 50 mcg/actuation [place],Suspension Active 1 SPRAY INTRANASAL Daily September 12, [...] AFTERNOON AND 2 CAPS IN THE EVENING 09/21/2020 Active Start: 06-29-2020 take 2 capsules by m outh at bedtime Gabapentin 300 mg capsule Active 600 MG PO Bedtime June 28, 2020 11:00pm Start: 06-29-2020 take 600 mg by mouth at bedtim e Gabapentin Active 600 MG PO Bedtime June 29, 2020 12:00am Start: 06-28-2020 End: 07-05-2020 Gabapentin 300 mg Capsule Discontinued 300 MG PO Twice daily June [...] mg by mouth three times a day. levothyroxine sodium 0.075 mg oral tablet (20 sources) l-Thyroxine Start: 11-26-19 20 take 1 tablet by mouth once daily before breakfast levothyroxine (SYNTHROID, LEVOTHROID) 75 MCG tablet Take 1 tablet (75 mcg total) by mouth every morning before breakfast. Take on empty stomach 11/26/2019 Active take 1 tablet by courtney every twenty-four hours Levothyroxine Sodium 75 MCG 1 tablet Orally Once a day for 30 day(s) Active take 1 tablet by mouth once jose manuel y levothyroxine (SYNTHROID) 100 mcg tablet Take 100 mcg by mouth once daily. 0 Active take 1 capsule by mo [facility] once daily before breakfast levothyroxine 75 mcg cap Take 75 mcg by mouth daily before breakfast. 0 Active Comment on above: Take 100 mcg by mout h once daily. Take 75 mcg by mouth daily before breakfast. 24 hr metoprolol succinate 50 mg extended release oral tablet (5 sources) beta-Adrenergic Gilson Start: 02-24-2024 take 1 tablet by mouth every twenty-four hours Metoprolol Succinate 50 mg tablet extended release 24 hr Active MG PO February 24, 2024 12:00am take 1 tablet by mouth in the mo rning metoprolol tartrate (Lopressor) 50 MG tablet Take 1 tablet by mouth in the morning and 1 tablet before bedtime. Active mirtazapine 15 mg oral tablet (4 sources) take 1 tablet by mouth at bedtime mirtazapine (Remeron) 15 MG tablet Take 15 mg by mouth at bedtime Active nitroglycerin 0.4 mg sublingual tablet (3 sources) Nitrate Vasodilator Start: 05-11-19 nitroglycerin (Nitrostat) 0.[address] 1 tablet under the tongue every 5 (five) minutes if needed for chest pain (x 3 doses) 05/11/2023 Active ondansetron 4 mg oral tablet (20 sources) Serotonin-3 Receptor Antagonist Start: 02-12-20 take 1 tablet by mouth once daily as needed for nausea and vomiting Ondansetron Hcl 4 mg tablet Active 4 MG PO Daily as needed for nausea and vomiting February 11, 2024 11:00pm Start: 01-23-2024 take 4 mg by mouth e very six hours Ondansetron Hcl Active 4 MG PO Every 6 hours January 23, 2024 12:00am Start: 10-09-2021 End: 02-12-2024 take 1 tablet by mouth every four hours Ondansetron Hcl (Zofran) 4 mg Tablet Discontinued 4 MG PO Every 4 hours October 08, 2021 11:00pm February 12, 2024 12:20pm take 1 tablet by courtney th every eight hours as needed for nausea and vomiting ondansetron (ZOFRAN) 4 mg tablet Take 1 tablet (4 mg total) by mouth every 8 (eight) hours as needed for nausea or vomiting. Active Comment on above: Take by mouth every 8 hours as needed for nausea/vomiting. oxyCODONE hydrochloride 5 mg oral tablet (6 sources) Opioid Agonist Start: End: take 1 tablet by mouth every six hours as needed for pain Oxycodone 5 mg tablet Active 5 MG PO Q6H as needed for Pain 28 7 February 13, 2024 pantoprazole 40 mg delayed release oral tablet (20 sources) Proton Pump Inhibitor Start: take 1 tablet by mouth before mealtime pantoprazole (ProtoNix) 40 MG EC tablet Take 1 tablet by mouth in the morning. Take before meals. 01/23/2024 Active Start: 06-28-2020 take 40 mg by mouth twice daily Pantoprazole Active 40 MG PO Twice daily June 28, 2020 12:00am Comment on above: Take 40 mg by mouth twice daily. Take 40 mg by mouth once daily. polyethylene glycol 3350 35734 mg powder for oral solution (19 sources) Osmotic Laxative Start: 02-11-2024 Polyethylene Glycol 3350 (Miralax) 17 gram powder in packet Active 17 GM PO daily 14 February 10, 2024 11:00pm 1 packet mixed with 8 ounces of fluid. Start: 09-13-2021 End: 01-29-2024 Polyethylene Glycol 3350 (Mi ralax) 17 gram/dose Powder Discontinued 17 GM PO Daily as needed for Constipation September 12, 2021 11:00pm January 29, 2024 12:57pm Comment on above: Take by mouth once d aily. Dissolve dose in 4 - 8 ounces of liquid and take as directed. primidone 250 mg oral tablet (20 sources) Anti-epileptic Agent Start: 06-28-2020 take 1 tablet by mouth twice daily Primidone 250 mg Tablet Active 250 MG PO Twice daily June 27, 2020 11:00pm take 1 tablet by mouth in the mo rning primidone (Mysoline) 50 MG tablet Take 50 mg by mouth in the morning and 50 mg in the evening. Active take 250 mg by mouth once daily PRIMIDONE ORAL Take 250 mg by mouth Daily at 0630. seizures Active Comment on above: Take 1 tablet by courtney th twice daily. sodium chloride 1000 mg oral tablet (20 sources) Start: 10-09-2021 take 1 tablet by mouth once daily Sodium Chloride 1,000 mg Tablet,Soluble Active 1000 MG PO Daily October 08, 2021 11:00pm Start: 12-26-2020 take 1 tablet by courtney th once daily sodium chloride 1 gram tablet Take 1 tablet (1 g total) by mouth daily. 30 tablet 12/26/2020 Active take 1 tablet by courtney th three times daily sodium chloride 1 g tab Take 1 g by mouth three times daily. 0 Active Sodium Chloride 1 GM as directed Orally Active Comment on above: Take 1 g by mouth th ree times daily. sucralfate 1000 mg oral tablet (20 sources) Aluminum Complex Start: 09-13-2021 End: 01-29-2024 sucralfate (CARAFATE) 1 gram tablet 02/17/2022 Active take 1 tablet by mouth every six hours Sucralfate 1 GM 1 tablet on an empty stomach Orally FOUR TIMES A DAY Active Comment on above: Take 1 g by mouth fo ur times daily. tetrabenazine 25 mg oral tablet (3 sources) Vesicular Monoamine Transporter 2 Inhibitor Start: 12-27-19 24 take 1 tablet by mouth in the morning tetrabenazine (Xenazine) 25 MG tablet Take 25 mg by mouth in the morning and 25 mg in the evening. 12/27/2023 Active traZODone hydrochloride 100 mg oral tablet (20 sources) Serotonin Reuptake Inhibitor Start: 12-30-19 traZODone (DESYREL) 100 mg tablet Start: 10-09-2021 Trazodone 150 mg tablet Active 200 MG PO Bedtime October 08, 2021 11:00pm Start: 10-09-2021 take 200 mg by mouth at bedtim e Trazodone Active 200 MG PO Bedtime October 09, 2021 12:00am Start: 10-09-2021 take 150 mg by mouth at bedtim e Trazodone Active 150 MG PO Bedtime October 09, 2021 12:00am Start: 06-28-2020 End: 09-13-2021 take 150 mg by mouth once daily at bedtime Trazodone Discontinued 150 MG PO Daily at bedtime June 28, 2020 12:00am September 13, 2021 12:02pm Comment on above: Take 150 mg by [...] every 4 hrs for 5 days KALEE: [id number] Oct, Not-Taking alendronic acid 70 mg oral tablet (20 sources) Bisphosphonate Start: 05-07-2018 End: 09-13-2021 take 1 tablet by mouth every week Alendronate 70 mg Tablet Discontinued 70 MG PO every week June [...] mouth and stay upright for 30 min. busPIRone hydrochloride 10 mg oral tablet (20 sources) Start: 09-15-2021 take 2 tablets by mouth once daily busPIRone HCl - 15 MG Oral Tablet TAKE 2 TABLET Daily Quantity: 0 Refills: 0 Ordered: 15-Sep-2021 DO Start : 15-Sep-2021 Active Start: 09-13-2021 take 1 tablet by courtney th twice daily Buspirone 10 mg tablet Active 10 MG PO Twice daily September 13, 2021 11:00am Start: 09-13-2021 take 10 mg by mouth once daily at bedtime Buspirone Active 10 MG PO Daily at bedtime September 13, 2021 12:00pm Start: 09-13-2021 End: 01-23-2024 take 1 tablet by mouth twice daily Buspirone 15 mg tablet Discontinued 15 MG PO Twice daily September 12, 2021 11:00pm January 23, 2024 8:46am Start: 07-05-2020 End: 11-12-2023 take 1 tablet by mouth three times daily Buspirone 10 mg tablet Discontinued 10 MG PO Three times daily July 04, 2020 11:00pm September 13, 2021 11:00am Start: 06-29-2020 End: 07-05-2020 take 10 mg by mouth at bedtime Buspirone Discontinued 10 MG PO Bedtime June 29, 2020 12:00am July 05, 2020 10:25am Start: 06-29-2020 End: 07-05-2020 take 10 mg by mouth at bedtime Buspirone Discontinued 10 MG PO Bedtime June 29, 2020 12:00am July 05, 2020 10:25am Start: 06-28-2020 End: 07-05-2020 Buspirone 10 mg Tablet Disco ntinued 15 MG PO BID@June 27, 2020 11:00pm July 05, 2020 9:25am 1.5 tabs in AM, 1.5 tabs in afternoon, 1 tab in evening Start: 06-28-2020 End: 07-05-2020 Buspirone Discontinued 15 MG PO BID@June 28, 2020 12:00am July 05, 2020 10:25am 1.5 tabs in AM, 1.5 tabs in afternoon, 1 tab in evening Start: 10-17-2018 take 1 tablet by courtney th three times daily busPIRone (BUSPAR) 5 mg tablet Indications: Anxiety Take 1 tablet by mouth three times daily. 90 tablet 2 10/17/2018 Active busPIRone (Buspa r) 10 MG tablet Take 15 mg by mouth in the morning and 15 mg in the evening. Active take 1 tablet by courtney th [...] 0 Refills: 0 Ordered: 25-Sep-2021 DO Active doxycycline hyclate 100 mg oral tablet (6 sources) Tetracycline-class Drug Start: 4 End: 4 take 1 tablet by mouth twice daily Doxycycline Hyclate 100 mg Tablet Discontinued 100 MG PO Twice daily 0 February 12, 2024 11:00pm February 24, 2024 9:33am Start: 02-11-2024 End: 02-12-2024 take 1 capsule by mouth twice daily Doxycycline Hyclate 100 mg capsule Discontinued 100 MG PO Twice daily 14 February 10, 2024 11:00pm February 12, 2024 12:20pm escitalopram 10 mg oral tablet (20 sources) Serotonin Reuptake Inhibitor Start: 07-05-2020 End: 09-13-2021 take 1 tablet by mouth once daily Escitalopram Oxalate (Lexapro) 10 mg tablet Discontinued 10 MG PO Daily July 04, 2020 11:00pm September 13, 2021 11:01am Start: 07-16-2018 End: 07-05-2020 take 1 tablet by mouth once daily Escitalopram Oxalate 20 mg Tablet Discontinued 20 MG PO Daily June 27, 2020 11:00pm July 05, 2020 9:25am Comment on above: Take 20 mg by mouth once daily. furosemide 20 mg oral tablet (10 sources) Loop Diuretic Start: 1 End: 2 take 1 tablet by mouth once daily Furosemide 20 mg Tablet Discontinued 20 MG PO Daily at 0800 30 30 July 04, 2020 11:00pm September 13, 2021 11:01am ibuprofen 200 mg oral tablet (17 sources) Nonsteroidal Anti-inflammatory Drug Start: End: take 3 tablets by mouth every eight hours as needed for pain Ibuprofen 200 mg Tablet Discontinued 600 MG PO Q8H as needed for Pain September 12, 2021 11:00pm January 29, 2024 12:56pm Start: 09-13-2021 End: 01-29-2024 take 600 mg by mouth every eight hours Ibuprofen Discontinued 600 MG PO Q8H September 13, 2021 12:00am January 29, 2024 1:56pm Ibuprofen 200 mg cap Take by mouth every 6 hours as needed. 0 Active take 3 capsules by m outh every eight hours Ibuprofen 200 MG 3 capsule with food or milk as needed Orally Three times a day Active take 3 tablets by mo uth once daily as needed Ibuprofen 200 MG Oral Tablet TAKE 3 TABLET Daily PRN Quantity: 0 Refills: 0 Ordered: 25-Sep-2021 DO Active Comment on above: Take by mouth every 6 hours as needed. loperamide hydrochloride 2 mg oral capsule (20 sources) Opioid Agonist Start: 09-13-2021 End: 01-29-2024 Loperamide (Imodium A-D) 2 mg Capsule Discontinued 1 - 2 MG PO Q6H as needed for Diarrhea September 12, 2021 11:00pm January 29, 2024 12:56pm take 1 tablet by courtney every six hours as needed for diarrhea loperamide (IMODIUM A-D) 2 mg tablet Hood e 1 tablet (2 mg total) by mouth every 6 (six) hours as needed for diarrhea. Give one tablet by mouth every 6 hours as needed for loose stool Active take 1 capsule by mo uth [...] mouth f our times daily as needed. Magnesium (14 sources) Start: 06-28-2020 End: 09-13-2021 take 1 tablet by mouth once daily at bedtime Magnesium 250 mg Tablet Discontinued 250 MG PO Daily at bedtime [...] above: Take 250 mg by mouth . meloxicam 15 mg oral tablet (3 sources) Nonsteroidal Anti-inflammatory Drug Start: 4 End: 4 take 1 tablet by mouth once daily Meloxicam 15 mg tablet Discontinued 15 MG PO daily 14 February 10, 2024 11:00pm February 12, 2024 12:20pm menthol 0.04 mg/mg topical gel (20 sources) Start: 2 End: 2 Menthol (Biofreeze (Menthol)) 4 % Gel Discontinued 1 APPLIC TOPICAL Q8H September 13, 2021 12:00am October 18, 2021 7:26am menthol (BIOFREE ZE, MENTHOL,) 4 % topical gel Apply to affected area three times daily as needed. 0 Active Comment on above: Apply to affected ar ea three times daily as needed. methocarbamol 750 mg oral tablet (20 sources) Muscle Relaxant Start: 1 End: 4 take 1 tablet by mouth three times daily Methocarbamol 750 mg Tablet Discontinued 750 MG PO Three times daily June 27, 2020 11:00pm January 29, 2024 12:57pm End: 11-12-2023 take 1 tablet by mouth four times daily methocarbamol (ROBAXIN) 750 mg tablet Take 750 mg by mouth four times daily. 0 11/12/2023 Discontinued (Discontinued by another Health Care Provider) Comment on above: Take 750 mg by mouth four times daily. pravastatin sodium 40 mg oral tablet (17 sources) HMG-CoA Reductase Inhibitor Start: 06-29-19 21 End: 09-14-19 take 1 tablet by mouth once daily at bedtime Pravastatin 40 mg Tablet Discontinued 40 MG PO Daily at bedtime June 27, 2020 11:00pm September 13, 2021 11:01am Comment on above: Take 40 mg by mouth once daily. Triamcinolone (8 sources) Corticosteroid Start: 05-30-19 Kenalog -40 mg May, 40 mg valbenazine 80 mg oral capsule (13 sources) Start: 06-29-19 End: 09-14-19 take 1 capsule by mouth once daily Valbenazine (Ingrezza) 80 mg Capsule Discontinued 80 MG PO Daily June 27, 2020 11:00pm September 13, 2021 11:01am Problems Active Problems Problem Classification Problem Date Documented Da te Episodic/Chronic Administrative/social admission (1 source) Lives in a snf; Translations: [Person living in residential institution] Episodic Anxiety disorders (20 sources) Anxiety state; Translations: [Anxiety state, unspecified] Onset: 03-23-2022 07-05-2020 Chronic Comment on above: Problem List clean-u p per request of Phys. EHR Cmte Chronic kidney disease (17 sources) Chronic kidney disease; Translations: [Chronic kidney disease, unspecified] Resolved: 09-14-2022 09-14-2022 Chronic Complication of device; implant or graft (18 sources) Mechanical complication associated with orthopedic device; Translations: [Other mechanical complication of other internal orthopedic devices, implants and grafts, initial encounter] Onset: 01-29-2024 01-23-2024 Episodic Coronary atherosclerosis and other heart disease (2 sources) Atherosclerotic heart disease of [place] coronary artery without angina pectoris; Translations: [Atherosclerotic heart disease of [place] coronary artery without angina pectoris] Onset: 09-18-2023 Chronic Deficiency and other anemia (1 source) Iron deficiency anemia; Translations: [Iron deficiency anemia, unspecified] 05-14-2023 Episodic Disorders of lipid metabolism (20 sources) Hyperlipidemia; Translations: [Other and unspecified hyperlipidemia] Onset: 12-06-2021 Resolved: 12-06-2021 Chronic E Codes: Fall (4 sources) Unspecified fall, initial encounter; Translations: [Other fall on same level, initial encounter] Onset: 07-03-2021 Episodic Esophageal disorders (17 sources) Gastro-esophageal reflux disease without esophagitis; Translations: [Gastroesophageal reflux disease] Onset: 06-05-2022 10-19-2022 Chronic Essential hypertension (20 sources) Benign essential hypertension; Translations: [Benign essential hypertension] Onset: 03-22-2021 Resolved: 12-06-2021 Chronic Fracture of lower limb (7 sources) Closed fracture of distal fibula ; Translations: [Other fracture of upper and lower end of left fibula, subsequent encounter for closed fracture with routine healing] 01-22-2024 Episodic Gastrointestinal hemorrhage (4 sources) Hemorrhage of anus and rectum; Translations: [HEMORRHAGE OF ANUS AND RECTUM] Onset: 03-23-2022 Episodic Hypertension with complications and secondary hypertension (2 sources) Hypertensive heart and chronic kidney disease without heart failure, with stage 5 chronic kidney disease, or end stage renal disease; Translations: [Hypertensive heart and chronic kidney disease without heart failure, with stage 5 chronic kidney disease, or end stage renal disease] Onset: 09-18-2023 Chronic Joint disorders and dislocations; trauma-related (2 sources) Traumatic arthropathy, left hip; Translations: [Traumatic arthropathy, left hip] Onset: 12-06-2023 Chronic Malaise and fatigue (1 source) Weakness; Translations: [WEAKNESS] Onset: 04-23-2022 Episodic Menopausal disorders (1 source) Hormone replacement therapy; Translations: [HORMONE REPLACEMENT THERAPY] Onset: 06-05-2022 Episodic Mood disorders (20 sources) Depressive disorder; Translations: [Depressive disorder, not elsewhere classified] Onset: 07-04-2023 07-04-2020 Chronic Comment on above: Problem List clean-u p per request of Phys. EHR Cmte Osteoarthritis (20 sources) Arthritis; Translations: [Arthritis] Onset: 05-30-2021 Resolved: 12-04-2021 Chronic Other aftercare (20 sources) Patient encounter status; Translations: [Aftercare following joint replacement surgery] Onset: 12-20-2023 01-19-2024 Chronic Other aftercare (1 source) Other shelter (current) drug therapy; Translations: [OTH CARE HOME CURRENT DRUG THERAPY] Onset: 06-05-2022 Episodic Other bone disease and musculoskeletal deformities (2 sources) Idiopathic aseptic necrosis of unspecified bone; Translations: [Idiopathic aseptic necrosis of unspecified bone] Onset: 12-06-2023 Chronic Other bone disease and musculoskeletal deformities (2 sources) Idiopathic aseptic necrosis of left femur; Translations: [Idiopathic aseptic necrosis of left femur] Onset: 04-09-2023 Chronic Other bone disease and musculoskeletal deformities (12 sources) Avascular necrosis of bone of hip; Translations: [Idiopathic aseptic necrosis of left femur] Onset: 04-09-2023 09-05-2023 Chronic Other connective tissue disease (20 sources) History of reverse prosthetic total arthroplasty of right shoulder; Translations: [Presence of right artificial shoulder joint] Onset: 05-14-2023 05-14-2023 Chronic Other connective tissue disease (16 sources) Presence of right artificial shoulder joint; Translations: [Shoulder joint replacement] Onset: 09-18-2021 Resolved: 12-04-2021 Chronic Other connective tissue disease (2 sources) Presence of left artificial hip joint; Translations: [Presence of left artificial hip joint] Onset: 12-29-2023 Chronic Other connective tissue disease (3 sources) History of operative procedure on shoulder; Translations: [Presence of unspecified artificial shoulder joint] 02-13-2024 Chronic Other connective tissue disease (6 sources) Presence of unspecified artificial shoulder joint; Translations: [Shoulder joint replacement] Onset: 02-12-2024 02-13-2024 Chronic Other connective tissue disease (14 sources) Unspecified rotator cuff tear or rupture of right shoulder, not specified as traumatic; Translations: [Tear of right rotator cuff, unspecified tear extent, unspecified whether traumatic] Onset: 05-30-2021 Resolved: 12-04-2021 Episodic Other diseases of kidney and ureters (10 sources) Hydronephrosis; Translations: [Unspecified hydronephrosis] 06-30-2020 Episodic Comment on above: Problem List clean-u p per request of Phys. 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 Other hereditary and degenerative nervous system conditions (1 source) Restless legs syndrome; Translations: [RESTLESS LEGS SYNDROME] Onset: 06-05-2022 Chronic Other hereditary and degenerative nervous system conditions (20 sources) Movement disorder; Translations: [Extrapyramidal and movement disorder, unspecified] Onset: 03-23-2022 04-14-2023 Chronic Other hereditary and degenerative nervous system conditions (19 sources) Tardive dyskinesia; Translations: [Drug induced subacute dyskinesia] Episodic Other lower respiratory disease (4 sources) Apnea; Translations: [Apnea, not elsewhere classified] Onset: 04-06-2024 04-06-2024 Episodic Other nervous system disorders (10 sources) Metabolic encephalopathy; Translations: [Metabolic encephalopathy] 06-30-2020 Chronic Comment on above: Problem List clean-u p per request of Phys. EHR Cmte Other nervous system disorders (1 source) Other chronic pain; Translations: [OTHER CHRONIC PAIN] Onset: 08-23-2021 Chronic Other nervous system disorders (10 sources) Abnormal movement; Translations: [Unspecified abnormal involuntary movements] 06-30-2020 Episodic Comment on above: Problem List clean-u p per request of Phys. EHR Cmte Other nervous system disorders (1 source) Enhanced physiological tremor; Translations: [Tremor, unspecified] Episodic Other non-traumatic joint disorders (13 sources) Pain in right shoulder; Translations: [Right shoulder pain] Onset: 05-30-2021 Resolved: 05-30-2021 Episodic Other nutritional; endocrine; and metabolic disorders (20 sources) Hypophosphatemia; Translations: [Other disorders of phosphorus metabolism] Onset: 07-04-2023 06-30-2020 Chronic Comment on above: Problem List clean-u p per request of Phys. EHR Cmte Other nutritional; endocrine; and metabolic disorders (20 sources) Hypocalcemia; Translations: [Hypocalcemia] Onset: 07-04-2023 06-30-2020 Chronic Comment on above: Problem List clean-u p per request of Phys. EHR Cmte Other nutritional; endocrine; and metabolic disorders (1 source) Body mass index less than 20; Translations: [Body Mass Index less than 19, adult] Episodic Residual codes; unclassified (1 source) Finding related to sleep; Translations: [Sleep apnea, unspecified] 04-17-2024 Chronic Residual codes; unclassified (10 sources) Altered mental status; Translations: [Altered mental status, unspecified] 06-30-2020 Episodic Comment on above: Problem List clean-u p per request of Phys. EHR Cmte Residual codes; unclassified (2 sources) Pain, unspecified; Translations: [Pain, unspecified] Onset: 12-06-2023 Episodic Septicemia (except in labor) (10 sources) Sepsis; Translations: [Sepsis, unspecified organism] 06-30-2020 Episodic Comment on above: Problem List clean-u p per request of Phys. EHR Cmte Superficial injury; contusion (1 source) Contusion of right shoulder, initial encounter; Translations: [CONTUSION RIGHT SHOULDER INITIAL] Onset: 06-05-2022 Episodic Thyroid disorders (20 sources) Hypothyroidism; Translations: [Unspecified acquired hypothyroidism] Onset: 03-23-2022 03-23-2022 Chronic Unclassified (1 source) CONTACT W/AND (SUSP) EXPOS COVID-19; Translations: [CONTACT W/AND (SUSP) EXPOS COVID-19] Onset: 03-27-2022 Unclassified (2 sources) LOW BACK PAIN, UNSPECIFIED; Translations: [LOW BACK PAIN, UNSPECIFIED] Onset: 08-23-2021 Viral infection (4 sources) COVID-19; Translations: [COVID-19] Onset: 04-19-2022 Past or Other Problems Problem Classification Problem Date Documented Date Episodic/Chronic Abdominal hernia (16 sources) Hiatal hernia; Translations: [Diaphragmatic hernia without obstruction or gangrene] Onset: 03-12-2023 03-12-2023 Episodic Anal and rectal conditions (17 sources) Rectal prolapse; Translations: [Rectal prolapse] Onset: 02-04-2021 05-18-2022 Episodic Deficiency and other anemia (1 source) Anemia, unspecified Onset: 03-22-2021 Resolved: 03-22-2021 Episodic Deficiency and other anemia (16 sources) Anemia; Translations: [Anemia, unspecified] Onset: 03-23-2022 03-23-2022 Episodic Fluid and electrolyte disorders (20 sources) Hypo-osmolality and hyponatremia; Translations: [Acute hyponatremia] Onset: 12-23-2020 Resolved: 12-06-2021 Episodic Comment on above: Problem List clean-u p per request of Phys. EHR Cmte Fracture of neck of femur (hip) (18 sources) Closed fracture of neck of femur; Translations: [Fracture of unspecified part of neck of unspecified femur, initial encounter for closed fracture] Onset: 06-16-2020 02-03-2021 Episodic Nausea and vomiting (20 sources) Nausea; Translations: [Nausea with vomiting, unspecified] Onset: 02-23-2022 Episodic Other connective tissue disease (20 sources) Rhabdomyolysis; Translations: [Rhabdomyolysis] Onset: 07-04-2023 06-30-2020 Episodic Comment on above: Problem List clean-u p per request of Phys. EHR Cmte Other connective tissue disease (16 sources) Swelling of lower limb; Translations: [Other specified soft tissue disorders] Onset: 12-22-2020 12-22-2020 Episodic Other connective tissue disease (16 sources) Muscle weakness; Translations: [Muscle weakness (generalized)] Onset: 03-23-2022 03-23-2022 Episodic Other diseases of kidney and ureters (2 sources) Unspecified hydronephrosis Onset: 03-22-2021 Resolved: 12-06-2021 Episodic Other hereditary and degenerative nervous system conditions (3 sources) Drug induced subacute dyskinesia; Translations: [DRUG INDUCED SUBACUTE DYSKINESIA] Onset: 06-05-2022 Episodic Other nervous system disorders (20 sources) Multifactorial gait problem; Translations: [Other abnormalities of gait and mobility] Onset: 03-23-2022 03-23-2022 Episodic Other non-traumatic joint disorders (16 sources) Pain of left hip joint; Translations: [Pain in left hip] Onset: 06-16-2020 02-03-2021 Episodic Other non-traumatic joint disorders (2 sources) Pain in left hip; Translations: [Pain in left hip] Onset: 03-04-2023 Episodic Other nutritional; endocrine; and metabolic disorders (1 source) Abnormal weight loss Onset: 03-22-2021 Resolved: 03-22-2021 Episodic Other screening for suspected conditions (not mental disorders or infectious disease) (20 sources) Electrocardiogram abnormal; Translations: [Nonspecific abnormal electrocardiogram [ECG] [EKG]] Onset: 08-07-2023 Episodic Pneumonia (except that caused by tuberculosis or sexually transmitted disease) (16 sources) Pneumonia; Translations: [Pneumonia, unspecified organism] Resolved: [...] Translations: [LOW BACK PAIN, UNSPECIFIED] Onset: 08-22-2021 Viral infection (20 sources) Disease caused by 2019-nCoV; Translations: [COVID-19] Onset: 07-04-2023 06-30-2020 Episodic Comment on above: Problem List clean-u p per request of Phys. EHR Cmte Results Test Name Value Interpretation Reference Range Facility XR shoulder RT min 2V*on XR shoulder RT min 2V* [facility] [address] [place] [address] XRay Report Signed Patient: Melanie Espinoza MR#: [id number] 6 : 1955 Acct:[id number] Age/Sex: 68 / F ADM Date: 03/31/24 Loc: [facility] [place]: Type: [facility] Attending Dr: Nickolas Hawthorne DO Copies to: Nickolas Hawthorne DO Ordering Provider: Nickolas Hawthorne DO Date of Service: 03/31/24 XR/XR shoulder RT min 2V*: Z96.619 - Presence of unspecified artificial shoulder joint RIGHT SHOULDER - 3 views CLINICAL HISTORY: Follow-up shoulder replacement COMPARISON: 02/24/2024 AP, Y and Grashey views were obtained. A shoulder prosthesis is present and as visualized, there is no significant change from prior. A portion of a screw is again noted at the glenoid where there is a depression centrally as well as hypertrophy. There is mild hypertrophy at the acromioclavicular joint. There is narrowing of the acromiohumeral interval. No acute fractures or dislocation are noted. Old right rib fractures are present. No soft tissue abnormalities are seen. XR/XR shoulder RT min 2V* IMPRESSION: STABLE APPEARANCE OF THE RIGHT SHOULDER. Impression dictated by: Ligia Carrasquillo M.D.03/31/2024 3:19 PM Dictation Location: [place] [address] Transcribed By: [facility] 03/31/24 1519 Dictated By: Ligia Carrasquillo MD 03/31/24 1517 Signed By: 03/31/24 151 Normal [facility] X-ray reportOrdered By: Emma Bettencourt on 02-24-2024 Study report [facility] [address] [place] [address] XRay Report Signed Patient: Melanie Espinoza MR#: [id number] : 1955 Acct:[id number] Age/Sex: 68 / F ADM Date: 4 Loc: [facility] [place]: Type: [facility] Attending Dr: Nickolas Hawthorne DO Copies to: Nickolas Hawthorne DO~ Ordering Provider: Nickolas Hawthorne DO Date of Service: 02/24/24 XR/XR shoulder RT min 2V*: Z96.619 - Presence of unspecified artificial shoulder joint XR shoulder RT min 2V* 02/24/2024 7:46 AM SIGNS AND SYMPTOMS: Status post reverse total shoulder arthroplasty, follow-up PROTOCOL: Frontal, Grashey, scapular Y views of the right shoulder COMPARISON: 01/23/2024 FINDINGS: There is evidence of previous reverse right shoulder arthroplasty hardware status post revision with removal of the glenoid and humeral components. Proximal humerus. Hypertrophic changes are noted in the acromioclavicular joint. The visualized right hemithorax is grossly intact. 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 No new hardware complications. Impression dictated by: Emma Bettencourt M.D.02/24/2024 4:59 PM Dictation Location: [facility] Transcribed By: DARYA 02/24/241658 Dictated By: Emma Bettencourt II, MD 02/24/241656 Signed By: 02/24/241658 [facility] Work Phone: XR shoulder RT min 2V*on XR shoulder RT min 2V* [facility] [address] [place] [address] XRay Report Signed Patient: Melanie Espinoza MR#: [id number] 6 : 1955 Acct:[id number] Age/Sex: 68 / F ADM Date: 02/24/24 Loc: [facility] [place]: Type: [facility] Attending Dr: Nickolas Hawthorne DO Copies to: Nickolas Hawthorne DO Ordering Provider: Nickolas Hawthorne DO Date of Service: 02/24/24 XR/XR shoulder RT min 2V*: Z96.619 - Presence of unspecified artificial shoulder joint XR shoulder RT min 2V* 02/24/2024 7:46 AM SIGNS AND SYMPTOMS: Status post reverse total shoulder arthroplasty, follow-up PROTOCOL: Frontal, Grashey, scapular Y views of the right shoulder COMPARISON: 01/23/2024 FINDINGS: There is evidence of previous reverse right shoulder arthroplasty hardware status post revision with removal of the glenoid and humeral components. Proximal humerus. Hypertrophic changes are noted in the acromioclavicular joint. The visualized right hemithorax is grossly intact. 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 No new hardware complications. Impression dictated by: Emma Bettencourt M.D.02/24/2024 4:59 PM Dictation Location: [facility] Transcribed By: DARYA 02/24/241658 Dictated By: Emma Bettencourt II, MD 02/24/241656 Signed By: 02/24/241658 Normal [facility] Aerobic Cultureon 02-12-2024 Aerobic Culture Comment right shoulder Synovial Fluid Result Tab Codes Rare Normal Skin Chloé 2 Days Growth present in Thio broth only Comment right shoulder Synovial Fluid Anaerobic Culture Results No Anaerobes Isolated 3 Days Comment right shoulder Synovial Fluid Gram Stain Result No Bacteria Seen PERFORMED BY: [place] [id number] PATHOLOGIST [employer] TAYA CRESPO M.D. Normal [facility] Comment on above: Performed By: #### G S, SYNCT, AERC ####[address] Aerobic cultureOrdered By: Jonh Hawthorne on 02-12-2024 Bacteria identified Aer cx Nom (Unsp spec) Aerobic culture [facility] Anaerobic cultureOrdered By: Nickolas Hawthorne on 02-12-2024 Bacteria identified Anaer cx Nom (Unsp spec) Anaerobic culture [facility] Automated basophil %Ordered By: Nickolas Hawthorne on 02-12-2024 Basophils/100 WBC (Bld) 0.9 % Normal . [facility] Comment on above: Performed By: #### E SR, CBC, DDIMER, CRP #### [address] Automated basophil countOrde red By: Nickolas Hawthorne on 02-12-2024 Basophils (Bld) [#/Vol] 0.1 10*3/uL Normal 0.0-0.2 [facility] Comment on above: Performed By: #### E SR, CBC, DDIMER, CRP #### [address] Automated blood monocyte cou ntOrdered By: Nickolas Hawthorne on 02-12-2024 Monocytes (Bld) [#/Vol] 0.6 10*3/uL Normal 0.0-0.8 [facility] Comment on above: Performed By: #### E SR, CBC, DDIMER, CRP #### [address] Automated eosinophil %Ordere d By: Nickolas Hawthorne on 02-12-2024 Eosinophils/100 WBC (Bld) 2.1 % Normal . [facility] Comment on above: Performed By: #### E SR, CBC, DDIMER, CRP #### [facility] [address] Automated eosinophil countOr dered By: Nickolas Hawthorne on 02-12-2024 Eosinophils (Bld) [#/Vol] 0.1 10*3/uL Normal 0.0-0.45 [facility] Comment on above: Performed By: #### E SR, CBC, DDIMER, CRP #### [address] Automated monocyte %Ordered By: Nickolas Hawthorne on 02-12-2024 Monocytes/100 WBC (Bld) 8.7 % Normal . [facility] Comment on above: Performed By: #### E SR, CBC, DDIMER, CRP #### [address] Automated neutrophil %Ordere d By: Nickolas Hawthorne on 02-12-2024 Neutrophils/100 WBC (Bld) 73.7 % Normal . [facility] Comment on above: Performed By: #### E SR, CBC, DDIMER, CRP #### [address] Basic Metabolic Panelon 01-15 Creatinine Clr Calc Pharmacy 44.31 Normal [facility] Comment on above: Result Comment: PERF ORMED BY: [place] [id number] PATHOLOGIST [employer] TAYA CRESPO M.D. Performed By: #### B MP ####[address] GFR/1.73 sq M.predicted MDRD (S/P/Bld) [Vol rate/Area] mL/min/{1.73_m2} Normal [facility] Comment on above: Performed By: #### B MP ####[address] Basophils Auto (Bld) [#/Vol] Ordered By: Nickolas Hawthorne on 02-12-2024 Basophils (Bld) [#/Vol] Automated basoph il count 0.0-0.2 [facility] Basophils/100 WBC Auto (Bld) Ordered By: Nickolas Hawthorne on 02-12-2024 Basophils/100 WBC (Bld) Automated basophil % . [facility] C reactive protein [Mass/vol ume] in Serum or PlasmaOrdered By: Nickolas Hawthorne on 02-12-2024 CRP [Mass/Vol] 0.6 mg/dL High 0.0-0.5 [facility] CRP [Mass/Vol] C reactive protein [Mass/volume] in Serum or Plasma High 0.0-0.5 [facility] C-Reactive Proteinon 024 C-Reactive Protein 0.6 mg/dL High 0.0-0.5 [facility] Comment on above: Result Comment: PERF ORMED BY: [facility] [address] [place] [address] PATHOLOGIST [employer] TAYA CRESPO M.D. Performed By: #### E SR, CBC, DDIMER, CRP #### [facility] [address] Calcium [Mass/volume] in Ser um or PlasmaOrdered By: Giancarlo Rojas on 02-12-2024 Calcium [Mass/Vol] 9.0 mg/dL Normal 8.6-10.3 [facility] Comment on above: Performed By: #### B MP ####[place] [id number] [place] [id number] [facility] Calcium [Mass/Vol] Calcium [Mass/volume ] in Serum or Plasma 8.6-10.3 [facility] Carbon dioxide, total [Moles /volume] in Serum or PlasmaOrdered By: Giancarlo Rojas on 02-12-2024 CO2 [Moles/Vol] 27.2 mmol/L Normal 21.0-31.0 [facility] Comment on above: Performed By: #### B MP ####[facility] [id number] [place] [id number] [facility] CO2 [Moles/Vol] Carbon dioxide, tota l [Moles/volume] in Serum or Plasma 21.0-31.0 [facility] Cell Count Diff,Synovial Flu idon 02-12-2024 Appearance, Synovial Fluid Turbid Critically abnormal Clear [facility] Comment on above: Order Comment: Synov ial Fluid Source: right shoulder Synovial Fluid Site: right shoulder Performed By: #### G S, SYNCT, AERC ####[facility] [place] [address] [facility] Color, Synovial Fluid RED Normal [facility] Comment on above: Order Comment: Synov ial Fluid Source: right shoulder Synovial Fluid Site: right shoulder Performed By: #### G S, SYNCT, AERC ####[place] [id number] [place] [address] [facility] Color, Synovial Supernatant Red Normal [facility] Comment on above: Order Comment: Synov ial Fluid Source: right shoulder Synovial Fluid Site: right shoulder Result Comment: The reference interval and other method performance specifications have not been established for this body fluid. The test result must be integrated into the clinical context for interpretation. Performed By: #### G S, SYNCT, AERC ####[id number] [place] [address] [facility] Comments, Synovial Normal [facility] Comment on above: Order Comment: Synov ial Fluid Source: right shoulder Synovial Fluid Site: right shoulder Result Comment: Body fluid is partially clotted and/or cell clumps or debris are present. Fluid cell count and differential results may not be reliable. Clinical correlation is recommended. PERFORMED BY: [facility] [address] [place] [id number] PATHOLOGIST [employer] MILL OPERATOR TAYA CRESPO M.D. Performed By: #### G S, SYNCT, AERC ####[id number] [place] [address] [facility] Eosinophils,Synovial Fluid 0 % Normal 0-2 [facility] Comment on above: Order Comment: Synov ial Fluid Source: right shoulder Synovial Fluid Site: right shoulder Performed By: #### G S, SYNCT, AERC ####[id number] [place] [address] [facility] Lymphocytes, Synovial Fluid 65 % Normal 0-74 [facility] Comment on above: Order Comment: Synov ial Fluid Source: right shoulder Synovial Fluid Site: right shoulder Performed By: #### G S, SYNCT, AERC ####[id number] [place] [id number] [facility] Monocyte/Histiocyte,Syn ov.Fld. 23 % Normal 0-69 [facility] Comment on above: Order Comment: Synov ial Fluid Source: right shoulder Synovial Fluid Site: right shoulder Performed By: #### G S, SYNCT, AERC ####[place] [id number] [facility] Neutrophils, Synovial Fluid 12 % Normal 0-24 [facility] Comment on above: Order Comment: Synov ial Fluid Source: right shoulder Synovial Fluid Site: right shoulder Performed By: #### G Bina, SYNCT, AERC ####[address] RBC, Synovial Fluid [id number] /uL High 0-0 [facility] Comment on above: Order Comment: Synov ial Fluid Source: right shoulder Synovial Fluid Site: right shoulder Result Comment: Body fluid is partially clotted and/or cell clumps or debris are present. Fluid cell count and differential results may not be reliable. Clinical correlation is recommended. Performed By: #### G S, SYNCT, AERC ####[address] [place], Synovial Fluid [address] High 0-150 [facility] Comment on above: Order Comment: Synov ial Fluid Source: right shoulder Synovial Fluid Site: right shoulder Result Comment: Body fluid is partially clotted and/or cell clumps or debris are present. Fluid cell count and differential results may not be reliable. Clinical correlation is recommended. The reference interval and other method performance specifications have not been established for this body fluid. The test result must be integrated into the clinical context for interpretation. Performed By: #### G S, SYNCT, AERC ####[address] Cells Counted Total [#] in B maurice fluidOrdered By: Nickolas Hawthorne on 02-12-2024 Cells Counted Total (Body fld) [#] 32767 mm^3 High 0-150 [facility] Comment on above: Body fluid is partia lly clotted and/or cell clumps or debris are present. Fluid cell count and differential results may not be reliable. Clinical correlation is recommended.The reference interval and other method performance specifications have not been established for this body fluid. The test result must be integrated into the clinical context for interpretation. Cells Counted Total (Body fld) [#] Cells Counted Total [#] in Body fluid High 0-150 [facility] Comment on above: Body fluid is partia lly clotted and/or cell clumps or debris are present. Fluid cell count and differential results may not be reliable. Clinical correlation is recommended.The reference interval and other method performance specifications have not been established for this body fluid. The test result must be integrated into the clinical context for interpretation. Chloride [Moles/volume] in S mirna or PlasmaOrdered By: Giancarlo Rojas on 02-12-2024 Chloride [Moles/Vol] 99 mmol/L Normal [address] [place] [address] Comment on above: Performed By: #### B MP ####[facility] [address] Chloride [Moles/Vol] Chloride [Moles/volume] in Serum or Plasma [address] [place] [address] Complete Blood Count Auto Di ffon 02-12-2024 Mean Corpuscular HGB Conc 33.0 g/dL Normal 32.0-35.0 [facility] Comment on above: Performed By: #### E SR, CBC, DDIMER, CRP #### [facility] [address] NRBC% 0.1 /100{WBC} Normal 0-0.5 [facility] Comment on above: Performed By: #### E SR, CBC, DDIMER, CRP #### [facility] [address] Creatinine [Mass/volume] in Serum or PlasmaOrdered By: Giancarlo Rojas on 02-12-2024 Creatinine [Mass/Vol] 0.40 mg/dL Low 0.60-1.20 [facility] Comment on above: Performed By: #### B MP ####[facility] [address]oa[address] Creatinine [Mass/Vol] Creatinine [Mass/volume] in Serum or Plasma Low 0.60-1.20 [facility] D-Dimer High Sensitivityon 1 D-Dimer High Sensitivity 647 ng/mL High 0-243 [facility] Comment on above: Result Comment: The reference range for D-dimer is <243 ng/mL D-dimer units. D-dimer results must be used in conjunction with a clinical pretest probability (PTP) assessment model for deep vein thrombosis (DVT) and pulmonary embolism (PE). Results <230 ng/mL d-dimer units can be used as a negative predictor in patients with low or moderate probability for DVT/PE. Results above the exclusion threshold of 230 ng/ml D-dimer units for DVT/PE may indicate the need for further diagnostic testing. D-Dimer can be increased in hospitalized patients due to co-morbid conditions. A hematocrit value greater than 55% may lead to inaccurate results in coagulation testing. Patients having hematocrit values >55% require a special collection tube for coagulation studies. Please contact the laboratory at [phone] for redraw instructions. PERFORMED BY: [place] [id number] PATHOLOGIST [employer] MILL OPERATOR TAAY CRESPO M.D. Performed By: #### E SR, CBC, DDIMER, CRP #### [facility] [address] [place] [address] Determination of appearance of body fluidOrdered By: Nickolas Hawthorne on 02-12-2024 Appearance (Body fld) Turbid Abnormal Clear [facility] Appearance (Body fld) Determination of appearance of body fluid Abnormal Clear [facility] Eosinophils Auto (Bld) [#/Vo l]Ordered By: Nickolas Hawthorne on 02-12-2024 Eosinophils (Bld) [#/Vol] Automated eosinophil count 0.0-0.45 [facility] Eosinophils/100 WBC Auto (Bl d)Ordered By: Nickolas Hawthorne on 02-12-2024 Eosinophils/100 WBC (Bld) Automated eosinophil % . [facility] Erythrocyte Sedimentation Ra camila 02-12-2024 ESR (Bld) [Velocity] 13 mm/h Normal 0-29 [facility] Comment on above: Result Comment: PERF ORMED BY: [place] [id number] PATHOLOGIST [employer] MILL OPERATOR TAYA CRESPO M.D. Performed By: #### E SR, CBC, DDIMER, CRP #### [address] Erythrocyte distribution wid th Auto (RBC) [Ratio]Ordered By: Nickolas Hawthorne on 02-12-2024 Erythrocyte distribution width (RBC) [Ratio] Erythrocyte distribution width [Ratio] by Automated count 11.9-15.3 [facility] Erythrocyte distribution wid th [Ratio] by Automated countOrdered By: Nickolas Hawthorne on 02-12-2024 Erythrocyte distribution width (RBC) [Ratio] 14.5 % Normal 11.-15.3 [facility] Comment on above: Performed By: #### E SR, CBC, DDIMER, CRP #### [facility] [address] [place] [address] Erythrocyte sedimentation ra te by Photometric methodOrdered By: Nickolas Hawthorne on 02-12-2024 ESR Photometric method (Bld) [Velocity] 13 mm/hr 0-29 [facility] ESR Photometric method (Bld) [Velocity] Erythrocyte sedimentation rate by Photometric method 0-29 [facility] Erythrocytes [#/volume] in B lood by Automated countOrdered By: Nickolas Hawthorne on 02-12-2024 RBC (Bld) [#/Vol] 4.77 10*6/uL Normal 3.60-5.00 [facility] Comment on above: Performed By: #### E SR, CBC, DDIMER, CRP #### [facility] [address] [place] [address] Evaluation of color of body fluidOrdered By: Nickolas Hawthorne on 02-12-2024 Color (Body fld) Red [facility] Color (Body fld) Evaluation of color of body fluid [facility] Fibrin D-dimer [Presence] in Platelet poor plasma by Latex agglutinationOrdered By: Nickolas Hawthorne on 02-12-2024 Fibrin D-dimer LA Ql (PPP) 647 ng/mL High 0-243 [facility] Comment on above: The reference range for D-dimer is <243 ng/mL D-dimer units.D-dimer results must be used in conjunction with a clinicalpretest probability (PTP) assessment model for deep veinthrombosis (DVT) and pulmonary embolism (PE). Results <230ng/mL d-dimer units can be used as a negative predictor inpatients with low or moderate probability for DVT/PE.Results above the exclusion threshold of 230 ng/ml D-dimerunits for DVT/PE may indicate the need for furtherdiagnostic testing.D-Dimer can be increased in hospitalized patients due toco-morbid conditions.A hematocrit value greater than 55% may lead to inaccurate results in coagulation testing. Patients having hematocrit values >55% require a special collection tube for coagulation studies. Please contact the laboratory at [phone] for redraw instructions. Fibrin D-dimer LA Ql (PPP) Fibrin D-dimer [Presence] in Platelet poor plasma by Latex agglutination High 0-243 [facility] Comment on above: The reference range for D-dimer is <243 ng/mL D-dimer units.D-dimer results must be used in conjunction with a clinicalpretest probability (PTP) assessment model for deep veinthrombosis (DVT) and pulmonary embolism (PE). Results <230ng/mL d-dimer units can be used as a negative predictor inpatients with low or moderate probability for DVT/PE.Results above the exclusion threshold of 230 ng/ml D-dimerunits for DVT/PE may indicate the need for furtherdiagnostic testing.D-Dimer can be increased in hospitalized patients due toco-morbid conditions.A hematocrit value greater than 55% may lead to inaccurate results in coagulation testing. Patients having hematocrit values >55% require a special collection tube for coagulation studies. Please contact the laboratory at [phone] for redraw instructions. Glucose [Mass/volume] in Ser um or PlasmaOrdered By: Giancarlo Rojas on 02-12-2024 Glucose [Mass/Vol] 92 mg/dL Normal 70-100 [facility] Comment on above: ADA recommended refe rence rangeRandom Glucose Reference Range is dependent on time and content of last meal. Glucose of more than 200 mg/dL in a nonstressed, ambulatory subject supports the diagnosis of Diabetes Mellitus. Result Comment: [place] Glucose Reference Range is dependent on time and content of last meal. Glucose of more than 200 mg/dL in a nonstressed, ambulatory subject supports the diagnosis of Diabetes Mellitus. ADA recommended reference range Performed By: #### B MP ####[id number] [facility] Glucose [Mass/Vol] Glucose [Mass/volume ] in Serum or Plasma 70-100 [facility] Comment on above: ADA recommended refe rence rangeRandom Glucose Reference Range is dependent on time and content of last meal. Glucose of more than 200 mg/dL in a nonstressed, ambulatory subject supports the diagnosis of Diabetes Mellitus. Gram Stainon 02-12-2024 Microscopic observation Gram stain Nom (Unsp spec) Comment right shoulder Synovial Fluid Gram Stain Result No Bacteria Seen PERFORMED BY: [facility] [address] [facility] [place] [address] PATHOLOGIST [employer] MILL OPERATOR TAYA CRESPO M.D. Normal [facility] Comment on above: Performed By: #### G S, SYNCT, AERC ####[facility] [place] [id number] [facility] Gram stain for investigation of transfusion reactionOrdered By: Nickolas Hawthorne on 02-12-2024 Microscopic observation Gram stain Nom (Unsp spec) No Anaerobes Isolated 1 Day [facility] Gram stain microscopyOrdered By: Nickolas Hawthorne on 02-12-2024 Microscopic observation Gram stain Nom (Unsp spec) Gram stain microscopy [facility] Hematocrit Auto (Bld) [Volum e fraction]Ordered By: Nickolas Hawthorne on 02-12-2024 Hematocrit (Bld) [Volume fraction] Hematocrit [Volume Fraction] of Blood by Automated count 34.0-46.4 [facility] Hematocrit [Volume Fraction] of Blood by Automated countOrdered By: Nickolas Hawthorne on 02-12-2024 Hematocrit (Bld) [Volume fraction] 41.5 % Normal 34.0-46.4 [facility] Comment on above: Performed By: #### E SR, CBC, DDIMER, CRP #### [facility] [address] [place] [id number] [facility] Hemoglobin [Mass/volume] in BloodOrdered By: Nickolas Hawthorne on 02-12-2024 Hemoglobin (Bld) [Mass/Vol] 13.7 g/dL Normal 11.8-15.4 [facility] Comment on above: Performed By: #### E SR, CBC, DDIMER, CRP #### [facility] [address] [id number] [facility] Hemoglobin (Bld) [Mass/Vol] Hemoglobin [Mass/volume] in Blood 11.8-15.4 [facility] Emery 02-12-2024 L Specimen: [id number] Received: 02/12/24 Status: ESTEFANI Christianson Num: [id number] Spec Type: Surgical Subm Dr: Nickolas Hawthorne DO Tissues: A Synovium-Biopsy or tissue (DEEP SYNOVIAL #1) B Synovium-Biopsy or tissue (DEEP SYNOVIAL #2) C Synovium-Biopsy or tissue (DEEP SYNOVIAL #3) Procedures: HE/3, Gross/Micro L4/3, FS HE/6 Age/ Patient Sex Location Account Attending Physician Melanie Espinoza 68/F [place] [id number] Nickolas Hawthorne DO SPEC NUM: [id number] RECD: 02/12/24 STATUS: ESTEFANI CHRISTIANSON NUM: [id number] AVERY: 02/12/24- SUBM DR: Nickolas Hawthorne DO ENTERED: 02/12/[address] [facility] [address]: SPEC TYPE: Surgical DEPT: S ENTERED BY: [id number] RECV BY: [id number] ORDERED: HE/3, Gross/Micro L4/3, FS HE/6 ORDERED: HE/3, Gross/Micro L4/3, FS HE/6 Pathological Diagnosis A, #1 deep synovial tissue biopsy: -Hypertrophic tenosynovial soft tissue with severe foreign body type histiocytic granulomas in the thickened synovial membranous portion, including patchy mildly to moderately to focally markedly superimposed dark pigmentations, otherwise without obvious or any significant acute inflammation B, #2 deep synovial tissue biopsy: -Hypertrophic tenosynovial soft tissue with severe foreign body type histiocytic granulomas in the entirely submitted section without obvious acute inflammation C, #3 deep synovial tissue biopsy: -Hypertrophic tenosynovial soft tissue with at least small focal foreign body type histiocytic granulomas at one fragment surface, in addition to the mild but patchy hyalinize d sclerotic degenerations of the synovial villi at the fragment surfaces, otherwise also without any obvious acute inflammation -------- Specimen: [id number] Received: 02/12/24 Status: ESTEFANI Jennifer Num: [id number] Spec Type: Surgical Subm Dr: Nickolas Hawthorne DO Tissues: A Synovium-Biopsy or tissue (DEEP SYNOVIAL #1) B Synovium-Biopsy or tissue (DEEP SYNOVIAL #2) C Synovium-Biopsy or tissue (DEEP SYNOVIAL #3) Procedures: HE/3, Gross/Micro L4/3, FS HE/6 -------- Patient: Melanie Espinoza [id number] (Continued) -------- Specimen: [id number] Received: 02/12/24 (Continued) Signed (signature on file) Kane Claudio MD 02/17/24 1746 -------- Specimen: [id number] Received: 02/12/24 Status: ESTEFANI Christianson Num: [id number] Spec Type: Surgical Subm Dr: Nickolas Hawthorne, DO Tissues: A Synovium-Biopsy or tissue (DEEP SYNOVIAL #1) B Synovium-Biopsy or tissue (DEEP SYNOVIAL #2) C Synovium-Biopsy or tissue (DEEP SYNOVIAL #3) Procedures: HE/3, Gross/Micro L4/3, FS HE/6 -------- Patient: Melanie Espinoza [id number] (Continued) -------- Specimen: [id number] Received: 02/12/24 (Continued) Clinical Information Rt shoulder pain, history of reverse Rt shoulder Gross Description A. Received fresh for frozen section labeled deep synovial #1 is an ovoid portion of mclaughlin-jj to pink, fibromembranous tissue, 1.5 x 0.8 x 0.2 cm. The specimen is entirely submitted for frozen section as A1. (1, ns, [id number] A) JG B. Received fresh for frozen section labeled deep synovial #2 is an ovoid sheet of mclaughlin- jj to pink, fibromembranous tissue, 0.9 x 0.8 x 0.3 cm. The specimen is entirely submitted for frozen section as B1. (1, ns, [id number] B) C. Received fresh for frozen section labeled deep synovial #3 is an ovoid sheet of jj- pink to yellow fibromembranous tissue, 1.3 x 0.9 x 0.3 cm. The specimen is entirely submitted for frozen section as C1. (1, ns, [id number] C) Intraoperative Diagnosis A, -Rare neutrophils seen B, -Rare neutrophils seen C, -Rare neutrophils seen Reported by Dr. Dill on 02-12-24 Microscopic Description Microscopic examinations are performed supporting the above interpretation CPT Codes 50261t9 56523x7 -------- -------- Specimen: [id number] Received: 02/12/24 Status: ESTEFANI Christianson Num: [id number] Spec Type: Surgical Subm Dr: Nickolas Hawthorne, DO Tissues: A Synovium-Biopsy or tissue (DEEP SYNOVIAL #1) B Synovium-Biopsy or tissue (DEEP SYNOVIAL #2) C Synovium-Biopsy or tissue (DEEP SYNOVIAL #3) Procedures: HE/3, Gross/Micro L4/3, FS HE/6 -------- (more content not included)... Normal [facility] Leukocytes [#/volume] correc andrew for nucleated erythrocytes in Blood by Automated counOrdered By: Nickolas Hawthorne on 02-12-2024 WBC corrected for nucl RBC Auto (Bld) [#/Vol] 6.5 10*3/uL 3.8-11.6 [facility] WBC corrected for nucl RBC Auto (Bld) [#/Vol] Leukocytes [#/volume] corrected for nucleated erythrocytes in Blood by Automated coun 3.8-11.6 [facility] Leukocytes [#/volume] in Blo od by Automated countOrdered By: Nickolas Hawthorne on 02-12-2024 WBC (Bld) [#/Vol] 6.5 10*3/uL Normal 3.8-11.6 [facility] Comment on above: Performed By: #### E SR, CBC, DDIMER, CRP #### [facility] [address] [place] [address] Lymphocytes Auto (Bld) [#/Vo l]Ordered By: Nickolas Hawthorne on 02-12-2024 Lymphocytes (Bld) [#/Vol] Lymphocytes [#/volume] in Blood by Automated count Low 1.00-4.8 [facility] Lymphocytes [#/volume] in Bl ood by Automated countOrdered By: Nickolas Hawthorne on 02-12-2024 Lymphocytes (Bld) [#/Vol] 0.9 10*3/uL Low 1.00-4.8 [facility] Comment on above: Performed By: #### E SR, CBC, DDIMER, CRP #### [facility] [address] [place] [address] Lymphocytes/100 WBC Auto (Bl d)Ordered By: Nickolas Hawthorne on 02-12-2024 Lymphocytes/100 WBC (Bld) Lymphocytes/100 leukocytes in Blood by Automated count . [facility] Lymphocytes/100 leukocytes i n Blood by Automated countOrdered By: Nickolas Hawthorne on 02-12-2024 Lymphocytes/100 WBC (Bld) 14.6 % Normal . [facility] Comment on above: Performed By: #### E SR, CBC, DDIMER, CRP #### [facility] [address] MCH Auto (RBC) [Entitic mass ]Ordered By: Nickolas Hawthorne on 02-12-2024 MCH (RBC) [Entitic mass] MCH [Entitic mass] by Automated count 24.7-34.3 [facility] MCH [Entitic mass] by Automa andrew countOrdered By: Nickolas Hawthorne on 02-12-2024 MCH (RBC) [Entitic mass] 28.7 pg Normal 24.7-34.3 [facility] Comment on above: Performed By: #### E SR, CBC, DDIMER, CRP #### [facility] [address] MCHC Auto (RBC) [Mass/Vol]Or dered By: Nickolas Hawthorne on 02-12-2024 MCHC (RBC) [Mass/Vol] 33.0 g/dL 32.0-35.0 [facility] MCHC (RBC) [Mass/Vol] MCHC [Mass/volume] by Automated count 32.0-35.0 [facility] MCV Auto (RBC) [Entitic vol] Ordered By: Nickolas Hawthorne on 02-12-2024 MCV (RBC) [Entitic vol] MCV [Entitic vol ume] by Automated count 80-100 [facility] MCV [Entitic volume] by Auto mated countOrdered By: Nickolas Hawthorne on 02-12-2024 MCV (RBC) [Entitic vol] 86.9 fL Normal 80-100 [facility] Comment on above: Performed By: #### E SR, CBC, DDIMER, CRP #### [facility] [address] Manual body fluid eosinophil s/100 leukocytesOrdered By: Nickolas Hawthorne on 02-12-2024 Eosinophils/100 WBC Manual cnt (Body fld) 0 % 0-2 [facility] Eosinophils/100 WBC Manual cnt (Body fld) Manual body fluid eosinophils/100 leukocytes 0-2 [facility] Manual body fluid erythrocyt es count (number/volume)Ordered By: Nickolas Hawthorne on 02-12-2024 RBC Manual cnt (Body fld) [#/Vol] 059287 /uL High 0-0 [facility] Comment on above: Body fluid is partia lly clotted and/or cell clumps or debris are present. Fluid cell count and differential results may not be reliable. Clinical correlation is recommended. RBC Manual cnt (Body fld) [#/Vol] Manual body fluid erythrocytes count (number/volume) High 0-0 [facility] Comment on above: Body fluid is partia lly clotted and/or cell clumps or debris are present. Fluid cell count and differential results may not be reliable. Clinical correlation is recommended. Manual body fluid lymphocyte s/100 leukocytesOrdered By: Nickolas Hawthorne on 02-12-2024 Lymphocytes/100 WBC Manual cnt (Body fld) 65 % 0-74 [facility] Lymphocytes/100 WBC Manual cnt (Body fld) Manual body fluid lymphocytes/100 leukocytes 0-74 [facility] Monocytes Auto (Bld) [#/Vol] Ordered By: Nickolas Hawthorne on 02-12-2024 Monocytes (Bld) [#/Vol] Automated blood monocyte count 0.0-0.8 [facility] Monocytes/100 WBC Auto (Bld) Ordered By: Nickolas Hawthorne on 02-12-2024 Monocytes/100 WBC (Bld) Automated monocyte % . [facility] Neutrophils Auto (Bld) [#/Vo l]Ordered By: Nickolas Hawthorne on 02-12-2024 Neutrophils (Bld) [#/Vol] Neutrophils [#/volume] in Blood by Automated count 1.8-7.7 [facility] Neutrophils [#/volume] in Bl ood by Automated countOrdered By: Nickolas Hawthorne on 02-12-2024 Neutrophils (Bld) [#/Vol] 4.8 10*3/uL Normal 1.8-7.7 [facility] Comment on above: Performed By: #### E SR, CBC, DDIMER, CRP #### [facility] [address] [place] [address] [facility] Neutrophils/100 WBC Auto (Bl d)Ordered By: Nickolas Hawthorne on 02-12-2024 Neutrophils/100 WBC (Bld) Automated neutrophil % . [facility] Neutrophils/100 WBC Manual c nt (Body fld)Ordered By: Nickolas Hawthorne on 02-12-2024 Neutrophils/100 WBC (Body fld) 12 % 0-24 [facility] Neutrophils/100 WBC (Body fld) Manual body fluid neutrophils/100 leukocytes 0-24 [facility] No Panel InformationOrdered By: Nickolas Hawthorne on 02-12-2024 Synovial Fluid Comment See comment [facility] Comment on above: Body fluid is partia lly clotted and/or cell clumps or debris are present. Fluid cell count and differential results may not be reliable. Clinical correlation is recommended. Synovial Fluid Supernatant Color Red [facility] Comment on above: The reference interv al and other method performance specifications have not been established for this body fluid. The test result must be integrated into the clinical context for interpretation. No Panel InformationOrdered By: Giancarlo Rojas on 02-12-2024 Estimated GFR (CKD-EPI) > 60.0 mL/Min [facility] Creatinine Clearance (Chem 44.31 [facility] Nucleated erythrocytes [Pres ence] in Blood by Automated countOrdered By: Nickolas Hawthorne on 02-12-2024 Nucleated RBC Auto Ql (Bld) 0.1 /100{WBC} 0-0.5 [facility] Nucleated RBC Auto Ql (Bld) Nucleated erythrocytes [Presence] in Blood by Automated count 0-0.5 [facility] Platelet mean volume Auto (B ld) [Entitic vol]Ordered By: Nickolas Hawthorne on 02-12-2024 Platelet mean volume (Bld) [Entitic vol] Platelet mean volume [Entitic volume] in Blood by Automated count 6.3-10.7 [facility] Platelet mean volume [Entiti c volume] in Blood by Automated countOrdered By: Nickolas Hawthorne on 02-12-2024 Platelet mean volume (Bld) [Entitic vol] 6.4 fL Normal 6.3-10.7 [facility] Comment on above: Performed By: #### E SR, CBC, DDIMER, CRP #### [facility] [address] Platelets Auto (Bld) [#/Vol] Ordered By: Nickolas Hawthorne on 02-12-2024 Platelets (Bld) [#/Vol] Platelets [#/vol ume] in Blood by Automated count 150-450 [facility] Platelets [#/volume] in Bloo d by Automated countOrdered By: Nickolas Hawthorne on 02-12-2024 Platelets (Bld) [#/Vol] 411 10*3/uL Normal 150-450 [facility] Comment on above: Performed By: #### E SR, CBC, DDIMER, CRP #### [facility] [address] Potassium [Moles/volume] in Serum or PlasmaOrdered By: Giancarlo Rojas on 02-12-2024 Potassium [Moles/Vol] 4.3 mmol/L Normal 3.5-5.1 [facility] Comment on above: Performed By: #### B MP ####[facility] Potassium [Moles/Vol] Potassium [Moles/volume] in Serum or Plasma 3.5-5.1 [facility] RBC Auto (Bld) [#/Vol]Ordere d By: Nickolas Hawthorne on 02-12-2024 RBC (Bld) [#/Vol] Erythrocytes [#/volume] in Blood by Automated count 3.60-5.00 [facility] Serum or plasma anion gap de terminationOrdered By: Giancarlo Rojas on 02-12-2024 Anion gap [Moles/Vol] 10.1 mmol/L Normal 6.0-15.0 [facility] Comment on above: Performed By: #### B MP ####[facility] Anion gap [Moles/Vol] Serum or plasma an ion gap determination 6.0-15.0 [facility] Sodium [Moles/volume] in Ser um or PlasmaOrdered By: Giancarlo Rojas on 02-12-2024 Sodium [Moles/Vol] 132 mmol/L Low 136-145 [facility] Comment on above: Performed By: #### B MP ####[place] [id number] [place] [id number] [facility] Sodium [Moles/Vol] Sodium [Moles/volume ] in Serum or Plasma Low 136-145 [facility] Synovial fluid differential cell countOrdered By: Nickolas Hawthorne on 02-12-2024 Differential panel (Syn fld) 23 % 0-69 [facility] Differential panel (Syn fld) Synovial fluid differential cell count 0-69 [facility] Type and Screenon 02-12-2024 ABO and Rh group Nom (Bld) Blood group O Rh(D) positive Normal [facility] Comment on above: Result Comment: PERF ORMED BY: [place] [id number] PATHOLOGIST [employer] TAYA CRESPO M.D. Urea nitrogen [Mass/volume] in Serum or PlasmaOrdered By: Giancarlo Rojas on 02-12-2024 Urea nitrogen [Mass/Vol] 12 mg/dL Normal 11-06 [facility] Comment on above: Performed By: #### B MP ####[place] [id number] [place] [id number] [facility] Urea nitrogen [Mass/Vol] Urea nitrogen [Mass/volume] in Serum or Plasma 11-06 [facility] WBC Auto (Bld) [#/Vol]Ordere d By: Nickolas Hawthorne on 02-12-2024 WBC (Bld) [#/Vol] Leukocytes [#/volume ] in Blood by Automated count 3.8-11.6 [facility] XR shoulder LT 1Von 02-12-20 24 XR shoulder LT 1V [facility] [address] [place] [address] [place] [address] XRay Report Signed Patient: Melanie Espinoza MR#: [id number] 6 : 1955 Acct:[id number] Age/Sex: 68 / F ADM Date: 02/12/24 Loc: [place] Room: Type: [facility] Attending Dr: Nickolas Hawthorne DO Copies to: Nickolas Hawthorne DO Ordering Provider: Nickolas Hawthorne DO Date of Service: 02/12/24 XR/XR shoulder LT 1V: Post op shoulder replacement Single view RIGHT shoulder plain film HISTORY: RIGHT shoulder arthroplasty COMPARISON: 01/23/24 SOFT TISSUE FINDINGS: Postsurgical changes POSTOP CHANGES: Fragmented screw present within the glenoid. Erosive changes of the glenoid present. Humeral component present. Glenoid component present. XR/XR shoulder LT 1V IMPRESSION: RIGHT shoulder arthroplasty. Erosive changes of the glenoid. Fracture screening glenoid. Overlying glenoid and humeral Impression dictated by: Erick Carranza M.D.02/12/2024 7:16 PM Dictation Location: [place] [address] Transcribed By: DARYA 02/12/241915 Dictated By: Erick Carranza DO 02/12/241909 Signed By: 02/12/241915 Normal [facility] Alanine aminotransferase [En zymatic activity/volume] in Serum or PlasmaOrdered By: Nickolas Hawthorne on 01-29-2024 ALT [Catalytic activity/Vol] 12 U/L Normal [facility] Comment on above: Performed By: #### C MP wRFX A1C, CBC #### [address] ALT [Catalytic activity/Vol] Alanine aminotransferase [Enzymatic activity/volume] in Serum or Plasma [facility] Albumin [Mass/volume] in Ser um or Plasma by Bromocresol green (BCG) dye binding methoOrdered By: Nickolas Hawthorne on 01-29-2024 Albumin BCG dye [Mass/Vol] 4.0 g/dL 3.5-5.7 [facility] Albumin BCG dye [Mass/Vol] Albumin [Mass/volume] in Serum or Plasma by Bromocresol green (BCG) dye binding metho 3.5-5.7 [facility] Alkaline phosphatase [Enzyma tic activity/volume] in Serum or PlasmaOrdered By: Nickolas Hawthorne on 01-29-2024 ALP [Catalytic activity/Vol] 89 U/L Normal 34-104 [facility] Comment on above: Result Comment: PERF ORMED BY: [facility] [address] [place] [address] PATHOLOGIST [employer] TAYA CRESPO M.D. Performed By: #### C MP wRFX A1C, CBC #### [address] ALP [Catalytic activity/Vol] Alkaline phosphatase [Enzymatic activity/volume] in Serum or Plasma 34-104 [facility] Appearance of UrineOrdered B y: Nickolas Hawthorne on 01-29-2024 Appearance (U) Urine appearance Clear [facility] Aspartate aminotransferase [ Enzymatic activity/volume] in Serum or PlasmaOrdered By: Nickolas Hawthorne on 01-29-2024 AST [Catalytic activity/Vol] 18 U/L Normal [facility] Comment on above: Performed By: #### C MP wRFX A1C, CBC #### [address] AST [Catalytic activity/Vol] Aspartate aminotransferase [Enzymatic activity/volume] in Serum or Plasma [facility] Automated basophil %Ordered By: Nickolas Hawthorne on 01-29-2024 Basophils/100 WBC (Bld) 0.7 % Normal . [facility] Comment on above: Performed By: #### C MP wRFX A1C, CBC #### [address] Automated basophil countOrde red By: Nickolas Hawthorne on 01-29-2024 Basophils (Bld) [#/Vol] 0.1 10*3/uL Normal 0.0-0.2 [facility] Comment on above: Result Comment: PERF ORMED BY: [address] [address] PATHOLOGIST [employer] TAYA CRESPO M.D. Performed By: #### C MP wRFX A1C, CBC #### [facility] [address] [place] [address] Automated blood monocyte cou ntOrdered By: Nickolas Hawthorne on 01-29-2024 Monocytes (Bld) [#/Vol] 0.7 10*3/uL Normal 0.0-0.8 [facility] Comment on above: Performed By: #### C MP wRFX A1C, CBC #### [facility] [address] [place] [address] Automated eosinophil %Ordere d By: Nickolas Hawthorne on 01-29-2024 Eosinophils/100 WBC (Bld) 2.0 % Normal . [facility] Comment on above: Performed By: #### C MP wRFX A1C, CBC #### [facility] [address] Automated eosinophil countOr dered By: Nickolas Hawthorne on 01-29-2024 Eosinophils (Bld) [#/Vol] 0.2 10*3/uL Normal 0.0-0.45 [facility] Comment on above: Performed By: #### C MP wRFX A1C, CBC #### [address] Automated monocyte %Ordered By: Ncikolas Hawthorne on 01-29-2024 Monocytes/100 WBC (Bld) 6.3 % Normal . [facility] Comment on above: Performed By: #### C MP wRFX A1C, CBC #### [address] Automated neutrophil %Ordere d By: Nickolas Hawthorne on 01-29-2024 Neutrophils/100 WBC (Bld) 81.1 % Normal . [facility] Comment on above: Performed By: #### C MP wRFX A1C, CBC #### [address] Basophils Auto (Bld) [#/Vol] Ordered By: Nickolas Hawthorne on 01-29-2024 Basophils (Bld) [#/Vol] Automated basoph il count 0.0-0.2 [facility] Basophils/100 WBC Auto (Bld) Ordered By: Nickolas Hawthorne on 01-29-2024 Basophils/100 WBC (Bld) Automated basophil % . [facility] Bilirubin Test strip Ql (U)O rdered By: Nickolas Hawthorne on 01-29-2024 Bilirubin Ql (U) Negative Negative [facility] Bilirubin Ql (U) Bilirubin.total [Presence] in Urine by Test strip Negative [facility] Bilirubin.total [Mass/volume ] in Serum or PlasmaOrdered By: Nickolas Hawthorne on 01-29-2024 Bilirubin [Mass/Vol] 0.2 mg/dL Low 0.3-1.0 [facility] Comment on above: Performed By: #### C MP wRFX A1C, CBC #### [facility] [address] Bilirubin [Mass/Vol] Bilirubin.total [Mass/volume] in Serum or Plasma Low 0.3-1.0 [facility] CMP with reflex to A1Con Albumin [Mass/Vol] 4.0 g/dL Normal 3.5-5.7 [facility] Comment on above: Performed By: #### C MP wRFX A1C, CBC #### [facility] [address] [place] [address] GFR/1.73 sq M.predicted MDRD (S/P/Bld) [Vol rate/Area] mL/min/{1.73_m2} Normal [facility] Comment on above: Performed By: #### C MP wRFX A1C, CBC #### [facility] [address] [place] [address] CT shoulder RT wo conon 01-13 CT shoulder RT wo con [facility] [place] [address] [place] [address] CT Scan Report Signed Patient: Melanie Espinoza MR#: [id number] 6 : 1955 Acct:[id number] Age/Sex: 68 / F ADM Date: 01/29/24 Loc: [facility]: [facility] Att[facility] Dr: Nickolas Hawthorne DO Copies to: Nickolas Hawthorne DO Ordering Provider: Nickolas Hawthorne DO Date of Service: 01/29/24 CT/CT shoulder RT wo con: Shantell protocol for pre operative CT shoulder RT wo con 01/29/2024 2:08 PM SIGNS AND SYMPTOMS: Malvinniginny protocol for pre operative TECHNIQUE: Multidetector CT axial slices of the right shoulder without IV contrast. Multiplanar and 3-D reformats were performed and viewed on a separate workstation and reviewed to further define anatomy and possible pathology. CT was performed with one or more of the following dose reduction techniques: Automated exposure control, adjustment of the mA and/or kV according to patient size, or use of iterative reconstruction technique. COMPARISON: 01/23/2024 FINDINGS: There is lucency surrounding the stem of the glenoid component of right shoulder reverse total arthroplasty. There is cranial orientation of the articular surface. This is consistent with hardware failure/hardware loosening. The humeral component is intact. There are healed or healing right fourth and fifth rib fractures. The visualized right hemithorax is grossly intact with degenerative changes are the visualized in the thoracic spine. There is a hiatal hernia with gastric fundus in the lower mediastinum Atherosclerotic changes are noted in the aortic arch. Nonspecific areas of groundglass attenuation are noted throughout the right lung. This may be infectious or inflammatory. CT/CT shoulder RT wo con IMPRESSION: There is lucency surrounding the stem of the glenoid component of right shoulder reverse total arthroplasty. There is cranial orientation of the articular surface. This is consistent with hardware failure/hardware loosening. Nonspecific areas of groundglass attenuation are noted throughout the right lung. This may be infectious or inflammatory. Impression dictated by: Emma Bettencourt M.D.01/29/2024 4:32 PM Dictation Location: [place] [address] Transcribed By: [facility] 01/29/24 1632 Dictated By: Emma Bettencourt II, MD 01/29/24 1629 Signed By: 01/29/24 1632 Normal [facility] Calcium [Mass/volume] in Ser um or PlasmaOrdered By: Nickolas Hawthorne on 01-29-2024 Calcium [Mass/Vol] 9.1 mg/dL Normal 8.6-10.3 [facility] Comment on above: Performed By: #### C MP wRFX A1C, CBC #### [facility] [address] Calcium [Mass/Vol] Calcium [Mass/volume ] in Serum or Plasma 8.6-10.3 [facility] Carbon dioxide, total [Moles /volume] in Serum or PlasmaOrdered By: Nickolas Hawthorne on 01-29-2024 CO2 [Moles/Vol] 27.1 mmol/L Normal 21.0-31.0 [facility] Comment on above: Performed By: #### C MP wRFX A1C, CBC #### [facility] [address] CO2 [Moles/Vol] Carbon dioxide, tota l [Moles/volume] in Serum or Plasma 21.0-31.0 [facility] Chloride [Moles/volume] in S mirna or PlasmaOrdered By: Nickolas Hawthorne on 01-29-2024 Chloride [Moles/Vol] 95 mmol/L Low 98-107 [facility] Comment on above: Performed By: #### C MP wRFX A1C, CBC #### [facility] [address] [place] [address] [place] Chloride [Moles/Vol] Chloride [Moles/volume] in Serum or Plasma Low 98-107 [facility] Color Auto (U)Ordered By: Mat Hawthorne on 01-29-2024 Color (U) Color of Urine by Auto Yellow [facility] Color of Urine by AutoOrdere d By: Nickolas Hawthorne on 01-29-2024 Color (U) Colorless Normal Yellow [facility] Comment on above: Order Comment: Name Collection Type:: Clean-Voided Midstream Performed By: #### C UMRSA, UA #### [address] Complete Blood Count Auto Di ffon 01-29-2024 Mean Corpuscular HGB Conc 33.3 g/dL Normal 32.0-35.0 [facility] Comment on above: Performed By: #### C MP wRFX A1C, CBC #### [facility] [address] [place] [address] [place] NRBC% 0.1 /100{WBC} Normal 0-0.5 [facility] Comment on above: Performed By: #### C MP wRFX A1C, CBC #### [facility] [address] [place] [address] [place] Creatinine [Mass/volume] in Serum or PlasmaOrdered By: Nickolas Hawthorne on 01-29-2024 Creatinine [Mass/Vol] 0.40 mg/dL Low 0.60-1.20 [facility] Comment on above: Performed By: #### C MP wRFX A1C, CBC #### [address] Creatinine [Mass/Vol] Creatinine [Mass/volume] in Serum or Plasma Low 0.60-1.20 [facility] ECG 12 lead ECGon 01-29-2024 ECG 12 lead ECG [facility] [place] [address] [place] [address] Electrocardiograph Report Signed Patient: Melanie Espinoza MR#: [id number] 6 : 1955 Acct:[id number] Age/Sex: 68 / F ADM Date: 01/29/24 Loc: Room: Type: [facility] Attending Dr: Nickolas Hawthorne DO Ordering Provider: Nickolas Hawthorne DO Date of Service: 01/29/24 ECG/ECG 12 lead ECG: RIGHT SHOULDER REVISION HEMIARTHROPLASTY Copies to: Test Reason : Blood Pressure : */* mmHG Vent. Rate : 63 BPM Atrial Rate : 63 BPM P-R Int : 120 ms QRS Dur : 88 ms QT Int : 418 ms P-R-T Axes : 28 28 30 degrees QTcB Int : 427 ms Sinus rhythm Otherwise normal ECG When compared with ECG of 23-Dec-2014 13:47, No significant change was found Confirmed by [facility] ([id number]) on 01/30/2024 4:29:01 PM Referred By: Electronically Signed By: LEI WAY MD FAC Transcribed By: MUS Signed By Lei Way MD, FACC 01/30/24 0127 Normal [facility] Eosinophils Auto (Bld) [#/Vo l]Ordered By: Nickolas Hawthorne on 01-29-2024 Eosinophils (Bld) [#/Vol] Automated eosinophil count 0.0-0.45 [facility] Eosinophils/100 WBC Auto (Bl d)Ordered By: Nickolas Hawthorne on 01-29-2024 Eosinophils/100 WBC (Bld) Automated eosinophil % . [facility] Erythrocyte distribution wid th Auto (RBC) [Ratio]Ordered By: Nickolas Hawthorne on 01-29-2024 Erythrocyte distribution width (RBC) [Ratio] Erythrocyte distribution width [Ratio] by Automated count 11.9-15.3 [facility] Erythrocyte distribution wid th [Ratio] by Automated countOrdered By: Nickolas Hawthorne on 01-29-2024 Erythrocyte distribution width (RBC) [Ratio] 14.8 % Normal 11.9-15.3 [facility] Comment on above: Performed By: #### C MP wRFX A1C, CBC #### [facility] [address] [place] [address] Erythrocytes [#/volume] in B lood by Automated countOrdered By: Nickolas Hawthorne on 01-29-2024 RBC (Bld) [#/Vol] 4.40 10*6/uL Normal 3.60-5.00 [facility] Comment on above: Performed By: #### C MP wRFX A1C, CBC #### [facility] [address] [place] [address] Globulin Calc (S) [Mass/Vol] Ordered By: Nickolas Hawthorne on 01-29-2024 Globulin (S) [Mass/Vol] Serum globulin measurement by calculation (mass/volume) [facility] Glucose [Mass/volume] in Ser um or PlasmaOrdered By: Nickolas Hawthorne on 01-29-2024 Glucose [Mass/Vol] 96 mg/dL Normal 70-100 [facility] Comment on above: Performed By: #### C MP wRFX A1C, CBC #### [facility] [address] [place] [address] Glucose [Mass/Vol] Glucose [Mass/volume ] in Serum or Plasma 70-100 [facility] Glucose [Mass/volume] in Uri ne by Test stripOrdered By: Nickolas Hawthorne on 01-29-2024 Glucose Test strip (U) [Mass/Vol] Normal mg/dL Normal [facility] Glucose Test strip (U) [Mass/Vol] Glucose [Mass/volume] in Urine by Test strip Normal [facility] Hematocrit Auto (Bld) [Volum e fraction]Ordered By: Nickolas Hawthorne on 01-29-2024 Hematocrit (Bld) [Volume fraction] Hematocrit [Volume Fraction] of Blood by Automated count 34.0-46.4 [facility] Hematocrit [Volume Fraction] of Blood by Automated countOrdered By: Nickolas Hawthorne on 01-29-2024 Hematocrit (Bld) [Volume fraction] 38.3 % Normal 34.0-46.4 [facility] Comment on above: Performed By: #### C MP wRFX A1C, CBC #### [facility] [address] Hemoglobin Test strip Ql (U) Ordered By: Nikcolas Hawthorne on 01-29-2024 Hemoglobin Ql (U) Negative Negative [facility] Hemoglobin Ql (U) Hemoglobin [Presence ] in Urine by Test strip Negative [facility] Hemoglobin [Mass/volume] in BloodOrdered By: Nickolas Hawthorne on 01-29-2024 Hemoglobin (Bld) [Mass/Vol] 12.8 g/dL Normal 11.8-15.4 [facility] Comment on above: Performed By: #### C MP wRFX A1C, CBC #### [address] Hemoglobin (Bld) [Mass/Vol] Hemoglobin [Mass/volume] in Blood 11.8-15.4 [facility] Ketones Test strip Ql (U)Ord ered By: Nickolas Hawthorne on 01-29-2024 Ketones Ql (U) Ketones [Presence] i n Urine by Test strip Negative [facility] Ketones [Presence] in Urine by Test stripOrdered By: Nickolas Hawthorne on 01-29-2024 Ketones Ql (U) Negative Normal Negative [facility] Comment on above: Order Comment: Name Collection Type:: Clean-Voided Midstream Performed By: #### C UMRSA, UA #### [facility] [address] [place] [address] Leukocyte esterase [Presence ] in Urine by Test stripOrdered By: Nickolas Hawthorne on 01-29-2024 Leukocyte esterase Test strip Ql (U) Negative Normal Negative [facility] Comment on above: Order Comment: Name Collection Type:: Clean-Voided Midstream Performed By: #### C UMRSA, UA #### [facility] [address] Leukocyte esterase Test strip Ql (U) Leukocyte esterase [Presence] in Urine by Test strip Negative [facility] Leukocytes [#/volume] correc andrew for nucleated erythrocytes in Blood by Automated counOrdered By: Nickolas Hawthorne on 01-29-2024 WBC corrected for nucl RBC Auto (Bld) [#/Vol] 11.0 10*3/uL 3.8-11.6 [facility] WBC corrected for nucl RBC Auto (Bld) [#/Vol] Leukocytes [#/volume] corrected for nucleated erythrocytes in Blood by Automated coun 3.8-11.6 [facility] Leukocytes [#/volume] in Blo od by Automated countOrdered By: Nickolas Hawthorne on 01-29-2024 WBC (Bld) [#/Vol] 11.0 10*3/uL Normal 3.8-11.6 [facility] Comment on above: Performed By: #### C MP wRFX A1C, CBC #### [facility] [address] Lymphocytes Auto (Bld) [#/Vo l]Ordered By: Nickolas Hawthorne on 01-29-2024 Lymphocytes (Bld) [#/Vol] Lymphocytes [#/volume] in Blood by Automated count 1.00-4.8 [facility] Lymphocytes [#/volume] in Bl ood by Automated countOrdered By: Nickolas Hawthorne on 01-29-2024 Lymphocytes (Bld) [#/Vol] 1.1 10*3/uL Normal 1.00-4.8 [facility] Comment on above: Performed By: #### C MP wRFX A1C, CBC #### [facility] [address] Lymphocytes/100 WBC Auto (Bl d)Ordered By: Nickolas Hawthorne on 01-29-2024 Lymphocytes/100 WBC (Bld) Lymphocytes/100 leukocytes in Blood by Automated count . [facility] Lymphocytes/100 leukocytes i n Blood by Automated countOrdered By: Nickolas Hawthorne on 01-29-2024 Lymphocytes/100 WBC (Bld) 9.9 % Normal . [facility] Comment on above: Performed By: #### C MP wRFX A1C, CBC #### [facility] [address] MCH Auto (RBC) [Entitic mass ]Ordered By: Nickolas Hawthorne on 01-29-2024 MCH (RBC) [Entitic mass] MCH [Entitic mass] by Automated count 24.7-34.3 [facility] MCH [Entitic mass] by Automa andrew countOrdered By: Nickolas Hawthorne on 01-29-2024 MCH (RBC) [Entitic mass] 29.0 pg Normal 24.7-34.3 [facility] Comment on above: Performed By: #### C MP wRFX A1C, CBC #### [address] MCHC Auto (RBC) [Mass/Vol]Or dered By: Nickolas Hawthorne on 01-29-2024 MCHC (RBC) [Mass/Vol] 33.3 g/dL 32.0-35.0 [facility] MCHC (RBC) [Mass/Vol] MCHC [Mass/volume] by Automated count 32.0-35.0 [facility] MCV Auto (RBC) [Entitic vol] Ordered By: Nickolas Hawthorne on 01-29-2024 MCV (RBC) [Entitic vol] MCV [Entitic vol ume] by Automated count 80-100 [facility] MCV [Entitic volume] by Auto mated countOrdered By: Nickolas Hawthorne on 01-29-2024 MCV (RBC) [Entitic vol] 87.0 fL Normal 80-100 [facility] Comment on above: Performed By: #### C MP wRFX A1C, CBC #### [address] MRSA Cultureon 01-29-2024 MRSA Culture No MRSA Isolated 2 Days PERFORMED BY: [place] [id number] PATHOLOGIST [employer] TAYA CRESPO M.D. Normal [facility] Comment on above: Performed By: #### C UMRSA, UA #### [facility] [facility] [address] Monocytes Auto (Bld) [#/Vol] Ordered By: Nickolas Hawthorne on 01-29-2024 Monocytes (Bld) [#/Vol] Automated blood monocyte count 0.0-0.8 [facility] Monocytes/100 WBC Auto (Bld) Ordered By: Nickolas Hawthorne on 01-29-2024 Monocytes/100 WBC (Bld) Automated monocyte % . [facility] Neutrophils Auto (Bld) [#/Vo l]Ordered By: Nickolas Hawthorne on 01-29-2024 Neutrophils (Bld) [#/Vol] Neutrophils [#/volume] in Blood by Automated count High 1.8-7.7 [facility] Neutrophils [#/volume] in Bl ood by Automated countOrdered By: Nickolas Hawthorne on 01-29-2024 Neutrophils (Bld) [#/Vol] 8.9 10*3/uL High 1.8-7.7 [facility] Comment on above: Performed By: #### C MP wRFX A1C, CBC #### [facility] [address] Neutrophils/100 WBC Auto (Bl d)Ordered By: Nickolas Hawthorne on 01-29-2024 Neutrophils/100 WBC (Bld) Automated neutrophil % . [facility] Nitrite Test strip Ql (U)Ord ered By: Nickolas Hawthorne on 01-29-2024 Nitrite Ql (U) Negative Negative [facility] Nitrite Ql (U) Nitrite [Presence] i n Urine by Test strip Negative [facility] No Panel InformationOrdered By: Nickolas Hawthorne on 01-29-2024 Estimated GFR (CKD-EPI) > 60.0 mL/Min [facility] Pharmacy Creatinine Clearance (Chem N/A [facility] Nucleated erythrocytes [Pres ence] in Blood by Automated countOrdered By: Nickolas Hawthorne on 01-29-2024 Nucleated RBC Auto Ql (Bld) 0.1 /100{WBC} 0-0.5 [facility] Nucleated RBC Auto Ql (Bld) Nucleated erythrocytes [Presence] in Blood by Automated count 0-0.5 [facility] Platelet mean volume Auto (B ld) [Entitic vol]Ordered By: Nickolas Hawthorne on 01-29-2024 Platelet mean volume (Bld) [Entitic vol] Platelet mean volume [Entitic volume] in Blood by Automated count 6.3-10.7 [facility] Platelet mean volume [Entiti c volume] in Blood by Automated countOrdered By: Nickolas Hawthorne on 01-29-2024 Platelet mean volume (Bld) [Entitic vol] 6.3 fL Normal 6.3-10.7 [facility] Comment on above: Performed By: #### C MP wRFX A1C, CBC #### [facility] [address] [place] [address] [place] Platelets Auto (Bld) [#/Vol] Ordered By: Nickolas Hawthorne on 01-29-2024 Platelets (Bld) [#/Vol] Platelets [#/vol ume] in Blood by Automated count 150-450 [facility] Platelets [#/volume] in Bloo d by Automated countOrdered By: Nickolas Hawthorne on 01-29-2024 Platelets (Bld) [#/Vol] 396 10*3/uL Normal 150-450 [facility] Comment on above: Performed By: #### C MP wRFX A1C, CBC #### [facility] [address] [place] [address] [place] Potassium [Moles/volume] in Serum or PlasmaOrdered By: Nickolas Hawthorne on 01-29-2024 Potassium [Moles/Vol] 4.8 mmol/L Normal 3.5-5.1 [facility] Comment on above: Performed By: #### C MP wRFX A1C, CBC #### [facility] [address] [place] [address] [place] Potassium [Moles/Vol] Potassium [Moles/volume] in Serum or Plasma 3.5-5.1 [facility] Protein Test strip (U) [Mass /Vol]Ordered By: Nickolas Hawthorne on 01-29-2024 Protein (U) [Mass/Vol] Negative Negative [facility] Protein (U) [Mass/Vol] Protein [Mass/vol ume] in Urine by Test strip Negative [facility] Protein [Mass/volume] in Ser um or PlasmaOrdered By: Nickolas Hawthorne on 01-29-2024 Protein [Mass/Vol] 6.6 g/dL Normal 6.4-8.9 [facility] Comment on above: Performed By: #### C MP wRFX A1C, CBC #### [facility] [address] Protein [Mass/Vol] Protein [Mass/volume ] in Serum or Plasma 6.4-8.9 [facility] RBC Auto (Bld) [#/Vol]Ordere d By: Nickolas Hawthorne on 01-29-2024 RBC (Bld) [#/Vol] Erythrocytes [#/volume] in Blood by Automated count 3.60-5.00 [facility] Serum globulin measurement b y calculation (mass/volume)Ordered By: Nickolas Hawthorne on 01-29-2024 Globulin (S) [Mass/Vol] 2.6 g/dL Normal [facility] Comment on above: Performed By: #### C MP wRFX A1C, CBC #### [facility] [address] Serum or plasma albumin/glob ulin mass ratioOrdered By: Nickolas Hawthorne on 01-29-2024 Albumin/Globulin [Mass ratio] 1.5 {ratio} Normal [facility] Comment on above: Performed By: #### C MP wRFX A1C, CBC #### [facility] [address] Albumin/Globulin [Mass ratio] Serum or plasma albumin/globulin mass ratio [facility] Serum or plasma anion gap de terminationOrdered By: Nickolas Hawthorne on 01-29-2024 Anion gap [Moles/Vol] 10.7 mmol/L Normal 6.0-15.0 [facility] Comment on above: Performed By: #### C MP wRFX A1C, CBC #### [facility] [address] Anion gap [Moles/Vol] Serum or plasma an ion gap determination 6.0-15.0 [facility] Sodium [Moles/volume] in Ser um or PlasmaOrdered By: Nickolas Hawthorne on 01-29-2024 Sodium [Moles/Vol] 128 mmol/L Low 136-145 [facility] Comment on above: Performed By: #### C MP wRFX A1C, CBC #### [facility] [address] [place] [id number] [place] Sodium [Moles/Vol] Sodium [Moles/volume ] in Serum or Plasma Low 136-145 [facility] Specific gravity Test strip (U) [Rel density]Ordered By: Nickolas Hawthorne on 01-29-2024 Specific gravity (U) [Rel density] 1.011 1.001-1.030 [facility] Specific gravity (U) [Rel density] Specific gravity of Urine by Test strip 1.001-1.030 [facility] Urea nitrogen [Mass/volume] in Serum or PlasmaOrdered By: Nickolas Hawthorne on 01-29-2024 Urea nitrogen [Mass/Vol] 15 mg/dL Normal 11-06 [facility] Comment on above: Performed By: #### C MP wRFX A1C, CBC #### [facility] [address] [place] [address] [place] Urea nitrogen [Mass/Vol] Urea nitrogen [Mass/volume] in Serum or Plasma 11-06 [facility] Urinalysison 01-29-2024 Bilirubin,Urine Negative Normal Negative [facility] Comment on above: Order Comment: Name Collection Type:: Clean-Voided Midstream Performed By: #### C UMRSA, UA #### [facility] [address] [place] [address] [place] Glucose Ql (U) Normal Normal Normal [facility] Comment on above: Order Comment: Name Collection Type:: Clean-Voided Midstream Performed By: #### C UMRSA, UA #### [facility] [address] [place] [id number] [place] Nitrite,Urine Negative Normal Negative [facility] Comment on above: Order Comment: Name Collection Type:: Clean-Voided Midstream Performed By: #### C UMRSA, UA #### [address] Occult Blood,Urine Negative Normal Negative [facility] Comment on above: Order Comment: Name Collection Type:: Clean-Voided Midstream Result Comment: PERF ORMED BY: [place] [id number] PATHOLOGIST [employer] OPERATOR TAYA CRESPO M.D. Performed By: #### C UMRSA, UA #### [address] Protein,Urine Negative Normal Negative [facility] Comment on above: Order Comment: Name Collection Type:: Clean-Voided Midstream Performed By: #### C UMRSA, UA #### [address] Specificy [place],Urine 1.011 Normal 1.001-1.030 [facility] Comment on above: Order Comment: Name Collection Type:: Clean-Voided Midstream Performed By: #### C UMRSA, UA #### [address] Urobilinogen,Urine Normal Normal Normal [facility] Comment on above: Order Comment: Name Collection Type:: Clean-Voided Midstream Performed By: #### C UMRSA, UA #### [address] Urine appearanceOrdered By: Nickolas Hawthorne on 01-29-2024 Appearance (U) Clear Normal Clear [facility] Comment on above: Order Comment: Name Collection Type:: Clean-Voided Midstream Performed By: #### C UMRSA, UA #### [address] Urobilinogen Test strip (U) [Mass/Vol]Ordered By: Nickolsa Hawthorne on 01-29-2024 Urobilinogen (U) [Mass/Vol] Normal mg/dL Normal [facility] Urobilinogen (U) [Mass/Vol] Urobilinogen [Mass/volume] in Urine by Test strip Normal [facility] WBC Auto (Bld) [#/Vol]Ordere d By: Nickolas Hawthorne on 01-29-2024 WBC (Bld) [#/Vol] Leukocytes [#/volume ] in Blood by Automated count 3.8-11.6 [facility] Wound methicillin resistant Staphylococcus aureus (MRSA) cultureOrdered By: Nickolas Hawthorne on 01-29-2024 MRSA isol Org specific cx Ql (Unsp spec) Wound methicillin resistant Staphylococcus aureus (MRSA) culture [facility] MRSA isol Org specific cx Ql (Unsp spec) No MRSA Isolated 2 Days [facility] pH Test strip (U)Ordered By: Nickolas Hawthorne on 01-29-2024 pH (U) pH of Urine by Test strip 5.0-9.0 [facility] pH of Urine by Test stripOrd ered By: Nickolas Hawthorne on 01-29-2024 pH (U) 7.0 [pH] Normal 5.0-9.0 [facility] Comment on above: Order Comment: Name Collection Type:: Clean-Voided Midstream Performed By: #### C BERNABE, UA #### [facility] [address] [place] [address] [place] XR shoulder RT min 2V*on XR shoulder RT min 2V* [facility] [address] [place] [address] XRay Report Signed Patient: Melanie Espinoza MR#: [id number] 6 : 1955 Acct:[id number] Age/Sex: 68 / F ADM Date: 01/23/24 [place] [facility] [place]: [facility] Attending Dr: Stevenson Corbin MD Copies to: Stevesnon Corbin MD Ordering Provider: Stevenson Corbin MD Date of Service: 01/23/24 XR/XR shoulder RT min 2V*: M25.511 - Pain in right shoulder 3 views right shoulder plain film HISTORY: Status post right reverse total shoulder arthroplasty COMPARISON: 06/18/2022 ACUTE FINDINGS: None DEGENERATIVE CHANGE: Unremarkable SOFT TISSUE FINDINGS: Unremarkable JOINT EFFUSION: None POSTOP CHANGES: 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 Surrounding osteolysis of the stent. Fracture fixation screw. Superior migration of the humerus and humeral component. 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, fixation screw fracture and superior migration Impression dictated by: Erick Carranza M.D.01/23/2024 2:49 PM Dictation Location: [place] [address] Transcribed By: [facility] 01/23/24 144 Dictated By: Erick Carranza DO 01/23/24 1439 Signed By: 01/23/24 144 [facility] Office Visiton 01-17-2024 Follow-up visit [id number] Melanie Espinoza 1955 Date Provider Department Center 01/17/2024 LEONIE [place]ES KARI [facility] Family History Problem Relation Age of Onset Hypertension Mother Stroke Mother Heart attack Father Family Status - Relation Status Age at Mother Father Level of Service:91094 [place] OFFICE/OUTPATIENT ESTABLISHED LOW MDM 20 MIN Reason for Visit and Comments: Hyperlipidemia [182] Hypertension [558295] - Pt is here for a three month follow up. [facility] Office Visiton 01-16-2024 Follow-up visit [id number] Melanie Espinoza 1955 Provider Department Center 01/16/2024 ERNESTO KAPLAN MP [facility] Family History Problem Relation Age of Onset Hypertension Mother Stroke Mother Heart attack Father Family Status - Relation Status Age at Mother Father Level of Service:05976 [place] POSTOP FOLLOW UP VISIT RELATED TO ORIGINAL PX (GC) Reason for Visit and Comments: Post-op [483] - L NICOLASA post op Normal [facility] Telemedicineon 12-26-2023 Telemedicine [id number] Melanie Espinoza 1955 Provider Department Center 12/26/2023 ERNESTO KAPLAN MP Family History Problem Relation Age of Onset Hypertension Mother Stroke Mother Heart attack Father Family Status - Relation Status Age at Mother Father Level of Service:76852 [place] POSTOP FOLLOW UP VISIT RELATED TO ORIGINAL PX Reason for Visit and Comments: Pain [136] - TELEMED PHONE CONVO 1ST POST OP Post-op [483] - TELEMED PHONE CONVO 1ST POST OP Normal [facility] 3612-23-2023 36 CALLED FACILITY TO MOVE UP 1ST POST OP KARIE'T TO AM ON MONDAY 12/25 AND PER RN, PATIENT FELL TWICE OVER WEEKEND, WAS NOT TAKEN TO ER NOR XRAYS DONE AND PATIENT WAS JUST DIAGNOSED WITH COVID TODAY. PLEASE ADVISE. THANKS [facility] 36on 12-12-2023 36 I spoke to the [...] 950. They had no questions or concerns. [facility] 3012-10-2023 30 Daily Case Managemen t Update Multidisciplinary rounds have been completed. Barriers to Discharge: Pending clinical course and improvement in clinical condition. POD 3 Left hip Arthroplasty. Neurology looking into causes of hyponatremia given meds (Na 132 today). Neurology discontinued Carbamazepine pt/ot=SNF. Discharge plan is [facility] when medically ready Diet: Dietary Orders (From admission, onward) Start Ordered 12/10/23 0749 Special Kitchen Request Once Comments: 3 powerade any flavor please and thank you :) 12/10/23 0748 12/09/23 1837 Special Kitchen Request Once Comments: chicken quesadilla and yeung pie please 12/09/23 1836 12/09/23 1836 Special Kitchen Request Once 12/09/23 1836 12/09/23 1333 Special Kitchen Request Once Comments: entree salad with grilled chicken, tomato, boiled egg, red peppers, ranch dressing and yeung pie. 12/09/23 1332 12/09/23 1037 Special Kitchen [...] OT Six Click Score: 13 PT Recommendations: half-way facility placement OT Recommendations: half-way facility placement New Consults: Consult Orders (From [...] muscular skeletal surgical procedure 12/06/23 1347 Normal [facility] 30 The patient is Moderately Stable - [...] include pain medications, neurology consult, back to SNF. Problem: Pain - Adult Goal: Verbalizes/displays adequate comfort level or baseline comfort level Outcome: Not Progressing Problem: Chronic Conditions and Co-morbidities Goal: Patient's chronic conditions and co-morbidity symptoms are monitored and maintained or improved Outcome: Not Progressing Normal [facility] BASIC METABOLIC PANELon 08-2 Anion gap [Moles/Vol] 10 mmol/L Normal 7- [facility] Comment on above: Performed By: #### L [id number] #### [facility] ([facility]) [address] [place] [address] Calcium [Mass/Vol] 7.3 mg/dL Low 8.6-10.3 [facility] Comment on above: Performed By: #### L [id number] #### [facility] ([facility] [address] [place] [address] Chloride [Moles/Vol] 101 mmol/L Normal 98-107 [facility] Comment on above: Performed By: #### L [id number] #### [facility] [address] [place] [address] CO2 [Moles/Vol] 24 mmol/L Normal 21-31 [facility] Comment on above: Performed By: #### L [id number] #### [facility] ([facility]) [address] [place] [address] Creatinine [Mass/Vol] 0.29 mg/dL Low 0.60-1.20 [facility] Comment on above: Performed By: #### L [id number] #### [facility] ([facility]) [address] [place] [address] GLOMERULAR FILTRATION RATE ML/MIN/1.73 SQ M.PREDICTED 116.4 mL/min/1.73m*2 Normal >60.0 [facility] Comment on above: Result Comment: [facility]???s estimated glomerular filtration rate (eGFR) will no [...] individuals. Performed By: #### L [id number] #### [facility] [address] [place] [address] Glucose [Mass/Vol] 99 mg/dL Normal 70-100 [facility] Comment on above: Performed By: #### L [id number] #### [facility] [address] [place] [address] Potassium [Moles/Vol] 3.3 mmol/L Low 3.5-5.1 [facility] Comment on above: Performed By: #### L [id number] #### [facility] ([facility]) [address] [place] [address] Urea nitrogen [Mass/Vol] 6 mg/dL Low 7-25 [facility] Comment on above: Performed By: #### L [id number] #### [facility] ([facility]) [address] [place] [address] UREA NITROGEN/CREATININE (MASS RATIO) IN SER/PLAS 20.7 Normal [facility] Comment on above: Performed By: #### L [id number] #### [facility] ([facility]) [address] [place] [address] CONSULTon 12-10-2023 CONSULT 15:15-SW requested 4:20pm transportation to [facility]. 16:20-Discharge order placed. AVS uploaded to [place]. Transport set up with [place] at 4:25PM. Transport form and packet completed and left beside the chart. Facility and floor RN aware of transport time. Phone number for report left with packet. [phone] completed. No further OTM needs at this time. Normal [facility] DSon 12-10-2023 DS - Attestation signed by Ernesto Kan MD at 01/06/2024 7:10 AM I did not personally see the patient on the day of the encounter,I discussed with the resident Cm Lyon MD and agree with the documentation. Admission Admitted 12/06/2023 for AVN (avascular necrosis of bone) (* Discharge Diagnosis Traumatic arthritis of left hip Discharge Disposition Long-Term Facility (03) Discharge Medications Your medication list START taking these medications Instructions Last Dose Given Next Dose Due aspirin 325 mg tablet Replaces: aspirin 81 mg chewable tablet Take 1 tablet (325 mg) by mouth two times daily. doxycycline 100 mg capsule Commonly known as: Vibramycin Take 1 capsule (100 mg) by mouth two times daily for 7 days. Take with at least 8 ounces (large glass) of water, do not lie down for 30 minutes after oxyCODONE-acetaminoph en 5-325 mg tablet Commonly known as: Percocet Take 1 tablet by mouth every 6 (six) hours if needed for severe pain (8-10 pain score) for up to 7 days. polyethylene glycol 17 gram packet Commonly known as: Glycolax Start taking on: December 11, 2023 Take 17 g by mouth in the morning for 7 days. Do not start before December 11, 2023. CHANGE how you take these medications Instructions Last Dose Given Next Dose Due atorvastatin 40 mg tablet Commonly known as: Lipitor What changed: Another medication with the same name was removed. Continue taking this medication, and follow the directions you see here. CONTINUE taking these medications Instructions Last Dose Given Next Dose Due alendronate 70 mg tablet Commonly known as: Fosamax Austedo 12 mg tablet Generic drug: deutetrabenazine Biofreeze (menthol) 4 % gel Generic drug: menthol busPIRone 10 mg tablet Commonly known as: Buspar calcium carbonate 600 mg calcium (1,500 mg) tablet carBAMazepine 200 mg tablet Commonly known as: TEGretol celecoxib 100 mg capsule Commonly known as: CeleBREX clonazePAM 0.5 mg tablet Commonly known as: KlonoPIN cyclobenzaprine 10 mg tablet Commonly known as: Flexeril ferrous sulfate 325 (65 Fe) MG tablet fluticasone 50 mcg/actuation nasal spray Commonly known as: Flonase gabapentin 300 mg capsule Commonly known as: Neurontin gabapentin 600 mg tablet Commonly known as: Neurontin levothyroxine 75 mcg capsule Commonly known as: Tirosint loperamide 2 mg tablet Commonly known as: Imodium A-D metoprolol succinate XL 25 mg 24 hr tablet Commonly known as: Toprol-XL Take 1 tablet (25 mg) by mouth in the morning. Do not crush or chew. mirtazapine 15 mg tablet Commonly known as: Remeron ondansetron 4 mg tablet Commonly known as: Zofran pantoprazole 40 mg EC tablet Commonly known as: ProtoNix primidone 50 mg tablet Commonly known as: Mysoline sodium chloride 1,000 mg tablet traZODone 100 mg tablet Commonly known as: Desyrel STOP taking these medications aspirin 81 mg chewable tablet Replaced by: aspirin 325 mg tablet Where to Get Your Medications These medications were sent to [facility] [place], [place] - [address] [place] [address] [place] [address] [facility] [place] [address], [facility] [address] aspirin 325 mg tablet doxycycline 100 mg capsule oxyCODONE-acetaminoph en 5-325 mg tablet polyethylene glycol 17 gram packet Activity Do not drive or drink alcohol while taking narcotic pain medications. No tub baths, swimming, or submerging your incision. Keep clean and dry until your follow-up visit Diet Continue on the same type of diet and foods as you were eating before your admission. Drink plenty of water. Allergies Erythromycin, Azithromycin, Erythromycin base, and Clarithromycin Hospital Course Surgery: 12/06/2023 - LEFT HIP CONVERSION TO TOTAL HIP ARTHROPLASTY ANTERIOR APPROACH (L) Consults to nephrology, IMS Discharged 12/09 [facility] Pertinent Physical Exam At Time of Discharge Physical Exam Lab Results Labs Reviewed BASIC METABOLIC PANEL - Abnormal Result Value Sodium 125 (*) Potassium 4.2 Chloride 90 (*) CO2 26 BUN 11 Creatinine 0.45 (*) Glucose 118 (*) Calcium 8.6 Anion Gap 13 eGFR 104.7 BUN/Creatinine Ratio 24.4 CBC - Abnormal Auto WBC 20.49 (*) RBC 4.24 Hemoglobin 12.1 Hematocrit 37.6 MCV 88.7 MCH 28.5 MCHC 32.2 RDW 14.0 Platelets 651 (*) BASIC METABOLIC PANEL - Abnormal Sodium 127 (*) Potassium 3.8 Chloride 93 (*) CO2 23 BUN 17 Creatinine 0.39 (*) Glucose 103 (*) Calcium 8.0 (*) Anion Gap 15 eGFR 108.4 BUN/Creatinine Ratio 43.6 SODIUM - Abnormal Sodium 128 (*) BASIC METABOLIC PANEL - Abnormal Sodium 130 (*) Potassium 3.3 (*) Chloride 99 CO2 23 BUN 10 Creatinine 0.37 (*) Glucose 104 (*) Calcium 7.6 (*) Anion G (more content not included)... Normal [facility] NURSNOTEon 12-10-2023 NURSNOTE Report given to ms hilliard from [facility] in [place] @ [phone]. Notified ms hilliard that transport unable to take with them patient's wheelchair d/t it becoming a hazard in case of accident as no securement device for wheelchairs inside their mobile. Normal [facility] SODIUMon 12-10-2023 Sodium [Moles/Vol] 132 mmol/L Low 136-145 [facility] Comment on above: Performed By: #### L [id number] #### [facility] ([facility]) [address] [place] [address] 30on 12-09-2023 30 Daily Case Managemen t Update Multidisciplinary rounds have been completed. Barriers to Discharge: Pending clinical course and improvement in clinical condition. Neurology consult to determine if the drugs that she is receiving for dyskinesia/tremor are contributing to the hyponatremia. Neurology discontinued Carbamazepine and started on Keppra. Discharge plan is [facility] when medically ready. Diet: Dietary Orders (From admission, onward) Start Ordered 12/09/23 1333 Special Kitchen Request Once Comments: entree salad with grilled chicken, tomato, boiled egg, red peppers, ranch dressing and yeung pie. 12/09/23 1332 12/09/23 1037 Special Kitchen Request Once Comments: brown sugar oatmeal, cinnamon raisin toast, morris[place] please 12/09/23 1036 12/08/23 1717 Special Kitchen Request Once Comments: chicken quesadilla and yeung pie please 12/08/23 1716 12/08/23 1634 Special Kitchen Request Once Comments: 4 powerades of any flavor please 12/08/23 1633 12/07/23 1009 Regular Diet 240ml/tray Diet effective now Question Answer Comment Room Service? Yes Fluid restriction total / 24h: 240ml/tray 12/07/23 1009 Physician Expected Discharge Date: Discharge Delays: PT Six Click Score: 15 OT Six Click Score: 13 PT Recommendations: half-way facility placement OT Recommendations: half-way facility placement New Consults: Consult Orders (From [...] muscular skeletal surgical procedure 12/06/23 1347 Normal [facility] BASIC METABOLIC PANELon 08-2 Anion gap [Moles/Vol] 11 mmol/L Normal 7-20 [facility] Comment on above: Performed By: #### L [id number] #### [facility] ([facility]) [address] [place] [address] Calcium [Mass/Vol] 7.6 mg/dL Low 8.6-10.3 [facility] Comment on above: Performed By: #### L [id number] #### [facility] ([facility]) [address] [place] [address] Chloride [Moles/Vol] 99 mmol/L Normal 98-107 [facility] Comment on above: Performed By: #### L [id number] #### [facility] ([facility]) [address] [place] [address] CO2 [Moles/Vol] 23 mmol/L Normal 21-31 [facility] Comment on above: Performed By: #### L [id number] #### [facility] ([facility]) [address] [place] [address] Creatinine [Mass/Vol] 0.37 mg/dL Low 0.60-1.20 [facility] Comment on above: Performed By: #### L [id number] #### [facility] ([facility]) [address] [place] [address] GLOMERULAR FILTRATION RATE ML/MIN/1.73 SQ M.PREDICTED 109.8 mL/min/1.73m*2 Normal >60.0 [facility] Comment on above: Result Comment: The [facility]???s estimated glomerular filtration rate (eGFR) will no [...] of individuals. Performed By: #### L [id number] #### [facility] ([facility]) [address] [place] [address] Glucose [Mass/Vol] 104 mg/dL High 70-100 [facility] Comment on above: Performed By: #### L [id number] #### [facility] ([facility]) [address] [place] [address] Potassium [Moles/Vol] 3.3 mmol/L Low 3.5-5.1 [facility] Comment on above: Performed By: #### L [id number] #### [facility] ([facility]) [address] [place] [address] Sodium [Moles/Vol] 130 mmol/L Low 136-145 [facility] Comment on above: Performed By: #### L [id number] #### [facility] ([facility]) [address] [place] [address] Urea nitrogen [Mass/Vol] 10 mg/dL Normal 7-25 [facility] Comment on above: Performed By: #### L [id number] #### [facility] ([facility]) [address] [place] [address] UREA NITROGEN/CREATININE (MASS RATIO) IN SER/PLAS 27.0 Normal [facility] Comment on above: Performed By: #### L [id number] #### [facility] ([facility]) [address] [place] [address] CONSULTon 12-09-2023 CONSULT Consults History Of Present Illness This is a 68-year-old woman who was admitted to the hospital for hip surgery. She was noted to be hyponatremic and neurology was consulted to determine if the drugs that she is receiving for dyskinesia/tremor are contributing to the hyponatremia. Patient is followed at the [facility] where she has been diagnosed with tardive [...] disease, Closed fracture of neck of femur ([facility]) (06/16/2020), COVID-19 (07/04/2023), Dysphagia, Epilepsy ([facility]), GERD (gastroesophageal reflux disease), Hyperlipidemia, Hypertension, Major depressive disorder, Osteoarthritis, Peripheral vascular disease ([facility]), Rectal prolapse, Rhabdomyolysis (07/04/2023), Sepsis ([facility]) (07/04/2023), Tardive dyskinesia, and Tremor. [...] and tremor and is followed at the [facility]. Medications that she is on include deutetrabenazine, clonazepam and primidone. She is also on carbamazepine although the indications for this medicine are not clear. Of all the neurological medicatio (more content not included)... Normal [facility] CORTISOLon 12-09-2023 CORTISOL (UG/DL) IN SER/PLAS 21.8 ug/dL Normal - [facility] Comment on above: Performed By: #### L [id number] ####[facility] ([facility])[address] [place] [address] OSMOLALITYon 12-09-2023 OSMOLALITY MEASURED 274 mOsm/kg Low 275-295 [facility] Comment on above: Result Comment: Test Performed by [facility] [address] [place] [address] - Released 12/09/2023 18:46 Performed By: #### L [id number] ####[facility] [id number] [place] [address] SODIUMon 12-09-2023 Sodium [Moles/Vol] 129 mmol/L Low 136-145 [facility] Comment on above: Performed By: #### L [id number] #### [facility] ([facility]) [address] [place] [address] 30on 12-08-2023 30 The patient is Moderately Stable - Low risk of patient condition declining or worsening The patient's goals for the shift include comfort The clinical goals for the shift include safety Normal [facility] BASIC METABOLIC PANELon 11-14 Anion gap [Moles/Vol] 15 mmol/L Normal 7-20 [facility] Comment on above: Performed By: #### L [id number] #### [facility] ([facility]) [address] [place] [address] Calcium [Mass/Vol] 8.0 mg/dL Low 8.6-10.3 [facility] Comment on above: Performed By: #### L [id number] #### [facility] ([facility]) [address] [place] [address] Chloride [Moles/Vol] 93 mmol/L Low 98-107 [facility] Comment on above: Performed By: #### L [id number] #### [facility] ([facility]) [address] [place] [address] CO2 [Moles/Vol] 23 mmol/L Normal 21-31 [facility] Comment on above: Performed By: #### L [id number] #### [facility] ([facility]) [address] [place] [address] Creatinine [Mass/Vol] 0.39 mg/dL Low 0.60-1.20 [facility] Comment on above: Performed By: #### L [id number] #### [facility] ([facility]) [address] [place] [address] GLOMERULAR FILTRATION RATE ML/MIN/1.73 SQ M.PREDICTED 108.4 mL/min/1.73m*2 Normal >60.0 [facility] Comment on above: Result Comment: The [facility]???s estimated glomerular filtration rate (eGFR) will no [...] individuals. Performed By: #### L [id number] #### [facility] ([facility]) [address] [place] [address] Glucose [Mass/Vol] 103 mg/dL High 70-100 [facility] Comment on above: Performed By: #### L [id number] #### [facility] ([facility]) [address] [place] [address] Potassium [Moles/Vol] 3.8 mmol/L Normal 3.5-5.1 [facility] Comment on above: Performed By: #### L [id number] #### [facility] ([facility]) [address] [address] Sodium [Moles/Vol] 127 mmol/L Low 136-145 [facility] Comment on above: Performed By: #### L [id number] #### [facility] ([facility]) [address] [place] [address] Urea nitrogen [Mass/Vol] 17 mg/dL Normal 7-25 [facility] Comment on above: Performed By: #### L [id number] #### [facility] ([facility]) [address] [place] [address] UREA NITROGEN/CREATININE (MASS RATIO) IN SER/PLAS 43.6 Normal [facility] Comment on above: Performed By: #### L [id number] #### [facility] ([facility]) [address] [place] [address] OSMOLALITY, URINEon 12-08-19 24 OSMOLALITY, URINE 546 mOsm/kg Normal 80-1300 [facility] Comment on above: Result Comment: Test Performed by [facility] [address] [place] [address] - Released 12/09/2023 14:01 Performed By: #### L [id number] #### [facility] [address] [place] [address] SODIUMon 12-08-2023 Sodium [Moles/Vol] 128 mmol/L Low 136-145 [facility] Comment on above: Performed By: #### L [id number] #### [facility] ([facility]) [address] [place] [address] SODIUM, URINE, RANDOMon 11-14 Sodium (U) [Moles/Vol] 13 mmol/L Normal [facility] Comment on above: Performed By: #### L [id number] ####[facility] ([facility])[address] [place] [address] TSH3 REFLEX TO FT4on 024 THYROTROPIN (MIU/L) IN SER/PLAS BY DETECTION LIMIT <= 0.05 MIU/L 1.56 mIU/L Normal 0.34-5.60 [facility] Comment on above: Performed By: #### L [id number] ####[facility] ([facility])[address] [place] [address] BASIC METABOLIC PANELon 11-14 Anion gap [Moles/Vol] 13 mmol/L Normal 7-20 [facility] Comment on above: Performed By: #### L [id number] #### [facility] ([facility]) [address] [place] [address] Calcium [Mass/Vol] 8.6 mg/dL Normal 8.6-10.3 [facility] Comment on above: Performed By: #### L [id number] #### [facility] ([facility]) [address] [place] [address] Chloride [Moles/Vol] 90 mmol/L Low 98-107 [facility] Comment on above: Performed By: #### L [id number] #### [facility] ([facility]) [address] [place] [address] CO2 [Moles/Vol] 26 mmol/L Normal 21-31 [facility] Comment on above: Performed By: #### L [id number] #### [facility] ([facility]) [address] [place] [address] Creatinine [Mass/Vol] 0.45 mg/dL Low 0.60-1.20 [facility] Comment on above: Performed By: #### L [id number] #### [facility] ([facility]) [address] [place] [address] GLOMERULAR FILTRATION RATE ML/MIN/1.73 SQ M.PREDICTED 104.7 mL/min/1.73m*2 Normal >60.0 [facility] Comment on above: Result Comment: The [facility]???s estimated glomerular filtration rate (eGFR) will no [...] individuals. Performed By: #### L [id number] #### [facility] ([facility]) [address] [place] [address] Glucose [Mass/Vol] 118 mg/dL High 70-100 [facility] Comment on above: Performed By: #### L [id number] #### [facility] [address] [place] [address] Potassium [Moles/Vol] 4.2 mmol/L Normal 3.5-5.1 [facility] Comment on above: Performed By: #### L [id number] #### [facility] ([facility]) [address] [place] [address] Sodium [Moles/Vol] 125 mmol/L Low 136-145 [facility] Comment on above: Performed By: #### L [id number] #### [facility] [address] [place] [address] Urea nitrogen [Mass/Vol] 11 mg/dL Normal 7-25 [facility] Comment on above: Performed By: #### L [id number] #### [facility] ([facility]) [address] [place] [address] UREA NITROGEN/CREATININE (MASS RATIO) IN SER/PLAS 24.4 Normal [facility] Comment on above: Performed By: #### L [id number] #### [facility] [address] [place] [address] BLOOD CULTUREon 12-07-2023 Bacteria identified Cx Nom (Bld) No growth at 5 days Normal [facility] Comment on above: Performed By: #### L [id number] ####[facility] ([facility])[address] [place] [address] Order Comment: From a different site than #1. CBCon 12-07-2023 Erythrocyte distribution width (RBC) [Ratio] 14.0 % Normal 11.5-15.0 [facility] Comment on above: Performed By: #### L [id number] #### [facility] [address] [place] [address] ERYTHROCYTE MEAN CORPUSCULAR HEMOGLOBIN CONCENTRATION (G/DL) BY AUTOMATED 32.2 g/dL Normal 32.0-35.0 [facility] Comment on above: Performed By: #### L [id number] #### [facility] ([facility]) [address] [place] [address] Hematocrit (Bld) [Volume fraction] 37.6 % Normal 36.0-48.0 [facility] Comment on above: Performed By: #### L [id number] #### [facility] ([facility]) [address] [place] [address] Hemoglobin (Bld) [Mass/Vol] 12.1 g/dL Normal 12.0-15.0 [facility] Comment on above: Performed By: #### L [id number] #### [facility] ([facility]) [address] [place] [address] MCH (RBC) [Entitic mass] 28.5 pg Normal 27.0-33.0 [facility] Comment on above: Performed By: #### L [id number] #### [facility] ([facility]) [address] [place] [address] MCV (RBC) [Entitic vol] 88.7 fL Normal 82.0-98.0 [facility] Comment on above: Performed By: #### L [id number] #### [facility] ([facility]) [address] [place] [address] PLATELETS (10*3/UL) IN BLOOD AUTOMATED COUNT 651 10*3/uL High 150-400 [facility] Comment on above: Performed By: #### L [id number] #### [facility] ([facility]) [address] [place] [address] RBC (Bld) [#/Vol] 4.24 10*6/uL Normal 3.80-5.00 [facility] Comment on above: Performed By: #### L [id number] #### [facility] [address] [place] [address] WBC (Bld) [#/Vol] 20.49 10*3/uL High 4.00-10.60 [facility] Comment on above: Performed By: #### L [id number] #### [facility] ([facility]) [address] [place] [address] PROCALCITONIN TESTon 024 PROCALCITONIN IN BLOOD 0.07 ng/mL Normal 0.00-0.10 [facility] Comment on above: Result Comment: Susp ected [...] and initial PCT<0.5ng/mL Performed By: #### L [id number] #### [facility] ([facility]) [address] [place] [address] ANESon 12-06-2023 ANES - Attestation signed by Jeffrey Summers MD at [...] NOT MOVE FROM 7:30am*, REP NOTIFIED 11/24 [facility] Location: [facility] OPERATING ROOM 02 / [facility] Operating Room Surgeons: Ernesto Kan MD Relevant Problems Cardio (+) Atherosclerosis of [place] coronary artery of [place] heart without angina pectoris (+) Primary hypertension [...] the morning a (more content not included)... [facility] CONSULTon 12-06-2023 CONSULT - Attestation signed by Gurpreet Man MD at [...] Espinoza Age - 68 y.o. - 1955 N - [id number] [facility] # - [id number] Date of Admission - 12/06/2023 5:42 AM [...] BILIRUB , ESTEFANÍA (more content not included)... [facility] HPon 12-06-2023 HP H&P reviewed. The [...] plan all questions answered and consents signed. [facility] OPNOTEon 12-06-2023 OPNOTE LEFT HIP CONVERSION TO TOTAL HIP ARTHROPLASTY ANTERIOR APPROACH (L) Operative Note Date: 12/06/2023 Location: [facility] OR Name: Melanie Espinoza, : 1955, Diagnosis Pre-op Diagnosis * AVN (avascular necrosis of bone) (CMS/HCC) [M87.00] * Primary osteoarthritis of left hip [M16.12] Post-op Diagnosis * AVN (avascular necrosis of bone) (CMS/HCC) [M87.00] * Primary osteoarthritis of left hip [M16.12] Procedures * LEFT HIP CONVERSION TO TOTAL HIP ARTHROPLASTY ANTERIOR APPROACH Surgeons Primary: Ernesto Kan MD Resident - Assisting: Olga Mcdermott DO; Cm Lyon MD Procedure Summary Anesthesia: General ASA: II Estimated Blood Loss: 200 mL Drains: [REMOVED] Urethral Catheter Non-latex 16 Fr. (Removed) Specimens ID Source Type Tests Collected By Collected At Frozen? Priority Lab ID 1 Hip Tissue TISSUE CULTURE AND ANAEROBIC CULTURE Ernesto Kan MD 12/06/23 0904 Routine [id number], [id number] Description: #1. LEFT HIP TISSUE Implants Type Name Action Serial No. [employer], PLA[place] Used, Not Implanted Total Joint G7 ACETABULAR SYSTEM SHELL Implanted Screw SCREW,BONE,6.6C06[employer] -TAP - [id number] Implanted Screw SCREW,BONE,SELF-TAP,6 .5X35MM - [id number] Implanted Screw SCREW,BONE,SELF-TAP,6 .5X30MM - [id number] Implanted Screw SCREW,BONE,SELF-TAP,6 .5X20MM - [id number] Implanted Total Joint LINER,G7,E1,40,F - [id number] Implanted Total Joint STEM,REDUCE,DISTAL,ST ND,9.0 - [id number] Implanted Total Joint HEAD,BIOLOX-D MOD,40MM - [id number] Implanted Total Joint SLEEVE,BIOLOX OPTION TYPE 1,-6 - [id number] Implanted Staff: Product Support Engineer: Nikia Reddy RN Scrub Person: Cordelia Brand CST Brand Specialist: Bethel Robles CSA Indications: Melanie Espinoza is an 68 y.o. female who is having surgery for AVN (avascular necrosis of bone) ([facility]) [M87.00]Primary osteoarthritis of left hip [...] advanced degenerative joint disease Left hip with [id number] arthritis of the Left hip with femoral [...] of the screws and the cannulated screw bull driver was inserted and the screws were [...] to th (more content not included)... Normal [facility] POCT GLUCOSE METER UNSOLICIT ED RESULTSon 12-06-2023 Glucose [Mass/Vol] 93 mg/dL Normal 70-105 [facility] Comment on above: Order Comment: Waive d Testing in the ED is performed under the ED CLIA certificate #[id number]. Result Comment: sheryl velez Performed By: #### L [id number] #### [facility] ([facility]) [address] [place] [address] TISSUE CULTUREon 12-06-2023 Bacteria identified Cx Nom (Unsp spec) No growth at 5 days Normal [facility] Comment on above: Order Comment: Pre-o p diagnosis:AVN (avascular necrosis of bone) (CMS/HCC) [M87.00]Primary osteoarthritis of left hip [M16.12] Performed By: #### L [id number] ####[facility] ([facility])[address] [place] [address] GRAM STAIN RESULT Normal [facility] Comment on above: Order Comment: Pre-o p diagnosis:AVN (avascular necrosis of bone) (CMS/HCC) [M87.00]Primary osteoarthritis of left hip [M16.12] Result Comment: Few Polymorphonuclear leukocytes No organisms seen Performed By: #### L [id number] ####[facility] ([facility])[address] [place] [address] 36on 11-28-2023 36 Spoke with the nurse caring for Ms Espinoza at [place]. Informed her that Dr Kan would like a letter from PCP stating she can stop Aspirin 1 week prior to surgery. The nurse stated she will message Dr Polo and fax over the order to [phone]. Updated DEBRA Olivier and Dr Kan with this information. Normal [facility] APTTon 11-28-2023 ACTIVATED PARTIAL THROMBOPLASTIN TIME IN PPP BY COAGULATION ASSAY 27.9 Seconds Normal 25.0-35.0 [facility] Comment on above: Result Comment: Clin ical significance of the APTT is questionable in the presence of heparin. Performed By: #### L [id number] ####[facility] ([facility] [place] [address] BASIC METABOLIC PANELon 11-13 Anion gap [Moles/Vol] 11 mmol/L Normal 7-20 [facility] Comment on above: Performed By: #### L [id number] #### [facility] ([facility]) [address] [place] [address] Calcium [Mass/Vol] 8.9 mg/dL Normal 8.6-10.3 [facility] Comment on above: Performed By: #### L [id number] #### [facility] ([facility]) [address] [place] [address] Chloride [Moles/Vol] 95 mmol/L Low 98-107 [facility] Comment on above: Performed By: #### L [id number] #### [facility] [address] [place] [address] CO2 [Moles/Vol] 27 mmol/L Normal 21-31 [facility] Comment on above: Performed By: #### L [id number] #### [facility] ([facility]) [address] [place] [address] Creatinine [Mass/Vol] 0.43 mg/dL Low 0.60-1.20 [facility] Comment on above: Performed By: #### L [id number] #### [facility] ([facility]) [address] [place] [address] GLOMERULAR FILTRATION RATE ML/MIN/1.73 SQ M.PREDICTED 105.9 mL/min/1.73m*2 Normal >60.0 [facility] Comment on above: Result Comment: [facility]???s estimated glomerular filtration rate (eGFR) will no [...] individuals. Performed By: #### L [id number] #### [facility] [address] [place] [address] Glucose [Mass/Vol] 91 mg/dL Normal 70-100 [facility] Comment on above: Performed By: #### L [id number] #### [facility] [address] [place] [address] Potassium [Moles/Vol] 3.9 mmol/L Normal 3.5-5.1 [facility] Comment on above: Performed By: #### L [id number] #### [facility] ([facility]) [address] [place] [address] Sodium [Moles/Vol] 129 mmol/L Low 136-145 [facility] Comment on above: Performed By: #### L [id number] #### [facility] ([facility]) [address] [place] [address] Urea nitrogen [Mass/Vol] 9 mg/dL Normal 7-25 [facility] Comment on above: Performed By: #### L [id number] #### [facility] ([facility]) [address] [place] [address] UREA NITROGEN/CREATININE (MASS RATIO) IN SER/PLAS 20.9 Normal [facility] Comment on above: Performed By: #### L [id number] #### [facility] ([facility]) [address] [place] [address] CBC WITH AUTO DIFFERENTIALon 11-28-2023 Basophils (Bld) [#/Vol] 0.06 10*3/uL Normal 0.00-0.20 [facility] Comment on above: Performed By: #### L [id number] #### [facility] ([facility]) [address] [place] [address] Basophils/100 WBC (Bld) 0.6 % Normal 0.0-1.0 [facility] Comment on above: Performed By: #### L [id number] #### [facility] [address] [place] [address] Eosinophils (Bld) [#/Vol] 0.40 10*3/uL Normal 0.00-0.50 [facility] Comment on above: Performed By: #### L [id number] #### [facility] ([facility] [address] [place] [address] Eosinophils/100 WBC (Bld) 4.2 % Normal 0.0-6.0 [facility] Comment on above: Performed By: #### L [id number] #### [facility] ([facility]) [address] [address] Erythrocyte distribution width (RBC) [Ratio] 14.9 % Normal 11.5-15.0 [facility] Comment on above: Performed By: #### L [id number] #### [facility] ([facility]) [address] [address] ERYTHROCYTE MEAN CORPUSCULAR HEMOGLOBIN CONCENTRATION (G/DL) BY AUTOMATED 33.3 g/dL Normal 32.0-35.0 [facility] Comment on above: Performed By: #### L [id number] #### [facility] ([facility]) [address] [place] [address] Hematocrit (Bld) [Volume fraction] 40.5 % Normal 36.0-48.0 [facility] Comment on above: Performed By: #### L [id number] #### [facility] ([facility]) [address] [place] [address] Hemoglobin (Bld) [Mass/Vol] 13.5 g/dL Normal 12.0-15.0 [facility] Comment on above: Performed By: #### L [id number] #### [facility] ([facility]) [address] [place] [address] Immature granulocytes (Bld) [#/Vol] 0.04 10*3/uL Normal 0.00-0.20 [facility] Comment on above: Performed By: #### L [id number] #### [facility] ([facility]) [address] [place] [address] Immature granulocytes/100 WBC (Bld) 0.4 % Normal 0.0-1.0 [facility] Comment on above: Performed By: #### L [id number] #### [facility] [address] [place] [address] Lymphocytes (Bld) [#/Vol] 1.38 10*3/uL Normal 1.20-4.00 [facility] Comment on above: Performed By: #### L [id number] #### [facility] ([facility]) [address] [place] [address] Lymphocytes/100 WBC (Bld) 14.4 % Low 20.0-45.0 [facility] Comment on above: Performed By: #### L [id number] #### [facility] ([facility]) [address] [place] [address] MCH (RBC) [Entitic mass] 29.3 pg Normal 27.0-33.0 [facility] Comment on above: Performed By: #### L [id number] #### [facility] ([facility]) [address] [place] [address] MCV (RBC) [Entitic vol] 87.9 fL Normal 82.0-98.0 [facility] Comment on above: Performed By: #### L [id number] #### [facility] ([facility]) [address] [place] [address] Monocytes (Bld) [#/Vol] 0.87 10*3/uL Normal 0.10-1.00 [facility] Comment on above: Performed By: #### L [id number] #### [facility] ([facility]) [address] [place] [address] Monocytes/100 WBC (Bld) 9.1 % Normal 5.0-12.0 U [facility] Comment on above: Performed By: #### L [id number] #### [facility] ([facility]) [address] [place] [address] Neutrophils (Bld) [#/Vol] 6.85 10*3/uL Normal 1.60-7.60 [facility] Comment on above: Performed By: #### L [id number] #### [facility] ([facility]) [address] [place] [address] Neutrophils/100 WBC (Bld) 71.3 % Normal 40.0-72.0 [facility] Comment on above: Performed By: #### L [id number] #### [facility] ([facility]) [address] [place] [address] NRBC (PER 100 WBCS) BY AUTOMATED COUNT 0.0 % Normal 0 [facility] Comment on above: Performed By: #### L [id number] #### [facility] ([facility]) [address] [place] [address] PLATELETS (10*3/UL) IN BLOOD AUTOMATED COUNT 460 10*3/uL High 150-400 [facility] Comment on above: Performed By: #### L [id number] #### [facility] ([facility]) [address] [place] [address] RBC (Bld) [#/Vol] 4.61 10*6/uL Normal 3.80-5.00 [facility] Comment on above: Performed By: #### L [id number] #### [facility] ([facility]) [address] [place] [address] WBC (Bld) [#/Vol] 9.60 10*3/uL Normal 4.00-10.60 [facility] Comment on above: Performed By: #### L [id number] #### [facility] ([facility]) [address] [place] [address] Consulton 11-28-2023 Consult [id number] Melanie Espinoza 1955 F Date Provider Department [place] 11/28/2023 Akilah-ERNESTO KAN MP ORTHO MPORTHO Family History Problem Relation Age of Onset Hypertension Mother Stroke Mother Heart attack Father Family Status - Relation Status Age at Mother Father Level of Service:92851 [place] OFFICE/OUTPATIENT ESTABLISHED LOW MDM 20 MIN (GC) Reason for Visit and Comments: Pain [136] - PRE-OP L HIP CONVERSION TO L NICOLASA , PATIENT RESIDES AT [facility] HEMOGLOBIN A1Con 11-28-2023 Glucose [Mass/Vol] 108 mg/dL Normal [facility] Comment on above: Order Comment: NO VA RIANT Performed By: #### L [id number] #### [facility] ([facility]) [address] [place] [address] HbA1c (Bld) [Mass fraction] 5.4 % Normal 4.0-6.0 [facility] Comment on above: Order Comment: NO VA RIANT Performed By: #### L [id number] #### [facility] (JOSUE) [address] [place] [address] HPon 11-28-2023 Orthopedic Surgery Subjective Pain of the Left Hip (PRE-OP L HIP CONVERSION TO L NICOLASA , PATIENT RESIDES AT 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 Per her primary care physician recommendations she underwent coronary angiogram. This showed mild three-vessel coronary disease and the recommendation for her test cell technician was to be on aspirin, statin, and [...] a note (more content not included)... Normal [facility] Labon 11-28-2023 Lab [id number] Melanie Espinoza 1955 F Date Provider Department [place] 11/28/2023 2244-[facility] MP LAB RESOURCE MP DRAW Medical Pavi Family History Problem Relation Age of Onset Hypertension Mother Stroke Mother Heart attack Father Family Status - Relation Status Age at Mother Father Normal [facility] MRSA/MSSA DNA NASALon 2023 MRSA DNA Negative Normal Negative [facility] Comment on above: Order Comment: Testi ng [...] preclude nasal colonization. Performed By: #### L [id number] ####[facility] ([facility]ER)[address] [place] [address] MSSA DNA Negative Normal Negative [facility] Comment on above: Order Comment: Testi ng [...] preclude nasal colonization. Performed By: #### L [id number] ####[facility] ([facility]ER)[address] [place] [address] PROTIME-INRon 11-28-2023 INR IN PPP BY COAGULATION ASSAY 0.96 Normal 0.90-1.10 [facility] Comment on above: Result Comment: ACCC P RECOMMENDED INR FOR WARFARIN THERAPY CONDITION [...] CHEST 1995;108:231S-246S. Performed By: #### L [id number] ####[facility] [facility])[address] [place] [address] PROTHROMBIN TIME (PT) IN PPP BY COAGULATION ASSAY 12.8 Seconds Normal 12.3-14.8 [facility] Comment on above: Performed By: #### L [id number] ####[facility])[address] [place] [address] TYPE AND SCREENon 11-28-2023 AB SCREEN Negative Normal [facility] Comment on above: Order Comment: TYPE AND CROSS 2 UNITS Performed By: #### L [id number] #### [facility] ([facility]) [address] [place] [address] ABO group Nom (Bld) O Normal [facility] Comment on above: Order Comment: TYPE AND CROSS 2 UNITS Performed By: #### L [id number] #### [facility] ([facility]) [address] [place] [address] RH TYPE IN BLOOD Positive Normal [facility] Comment on above: Order Comment: TYPE AND CROSS 2 UNITS Performed By: #### L [id number] #### [facility] ([facility]) [address] [place] [address] URINALYSIS WITH REFLEX CULTU REon 11-28-2023 BILIRUBIN, TOTAL PRESENCE IN URINE Negative Normal Negative [facility] Comment on above: Order Comment: Micro scopics not performed on urines with negative chemical reactions unless requested on original order. Performed By: #### L [id number] #### [facility] ([facility]) [address] [place] [address] Clarity (U) Clear Normal Clear [facility] Comment on above: Order Comment: Micro scopics not performed on urines with negative chemical reactions unless requested on original order. Performed By: #### L [id number] #### [facility] ([facility]) [address] [place] [address] Color (U) Straw Abnormal Yellow [facility] Comment on above: Order Comment: Micro scopics not performed on urines with negative chemical reactions unless requested on original order. Performed By: #### L [id number] #### [facility] ([facility]) [address] [place] [address] Glucose (U) [Mass/Vol] Negative Normal [facility] Comment on above: Order Comment: Micro scopics not performed on urines with negative chemical reactions unless requested on original order. Performed By: #### L [id number] #### [facility] ([facility] [address] [place] [address] HEMOGLOBIN PRESENCE IN URINE Negative Normal Negative [facility] Comment on above: Order Comment: Micro scopics not performed on urines with negative chemical reactions unless requested on original order. Performed By: #### L [id number] #### [facility] ([facility]AKER) [address] [place] [address] Ketones Ql (U) Negative Normal Negative [facility] Comment on above: Order Comment: Micro scopics not performed on urines with negative chemical reactions unless requested on original order. Performed By: #### L [id number] #### [facility] ([facility]AKER) [address] [place] [address] LEUKOCYTE ESTERASE PRESENCE IN URINE BY TEST STRIP Negative Normal Negative [facility] Comment on above: Order Comment: Micro scopics not performed on urines with negative chemical reactions unless requested on original order. Performed By: #### L [id number] #### [facility] ([facility]) [address] [place] [address] NITRITE PRESENCE IN URINE Negative Normal Negative [facility] Comment on above: Order Comment: Micro scopics not performed on urines with negative chemical reactions unless requested on original order. Performed By: #### L [id number] #### [facility] ([facility]) [address] [place] [address] pH (U) 6.0 [pH] Normal 5.0-8.0 [facility] Comment on above: Order Comment: Micro scopics not performed on urines with negative chemical reactions unless requested on original order. Performed By: #### L [id number] #### [facility] ([facility]) [address] [place] [address] Protein (U) [Mass/Vol] Negative Normal Negative [facility] Comment on above: Order Comment: Micro scopics not performed on urines with negative chemical reactions unless requested on original order. Performed By: #### L [id number] #### [facility] ([facility]) [address] [place] [address] Specific gravity (U) [Rel density] 1.006 Low 1.015-1.020 [facility] Comment on above: Order Comment: Micro scopics not performed on urines with negative chemical reactions unless requested on original order. Performed By: #### L [id number] #### [facility] ([facility]) [address] [place] [address] CNOVon 11-12-2023 CNOV Office Visit ([facility]) MELANIE ESPINOZA ([id number]) 1955 F Date Time Provider Department 7/30/24 11:00 AM TAI HINOJOSA [facility] During your visit today, we recorded the following information about you: Pulse Blood pressure Weight 72/minute 136/80 43.1 kg Tai Hinojosa MD 11/12/2023 11:37 AM Signed November 12, 2023 Tai Hinojosa MD [address] / [address] [address] Esteban Garza MD ([facility]) [address] [place] [address] Melanie Espinoza : 1955 Interval History: Melanie [...] at bedtime. cyclobenzaprine (FLEXERIL) 10 mg tablet guaiFENesin-dextromet horphan [...] wheelchair - (more content not included)... Normal [facility] 11-04-2023 ANES - Attestation signed by Jessica Wagoner MD at 11/04/2023 1:05 PM Jessica Wagoner MD, MPH, [facility], [facility], [facility] Interventional Cardiology Pager Email: [email or web address] Patient: Melanie M Alexis Procedure Information Date/Time: 11/04/23 1130 Procedure: Coronary angiography; PC Approved - pc approved Location: [facility] SPEECH LANGUAGE THERAPIST 3 / [facility] (Cath) Providers: Jessica Wagoner [...] discussed with attending. Additional Equipment Requests Normal [facility] HPon 11-04-2023 - Attestation signed by Jessica Wagoner MD at 11/04/2023 11:34 AM Jessica Wagoner MD, MPH, [facility], [facility], [facility] Interventional Cardiology Pager Email: [email or web address] History Of Present Illness Melanie Espinoza is [...] clearance Abnormal cardiovascular stress test Atherosclerosis of [place] coronary artery of [place] heart without angina pectoris CAG +/- PCI. Discussed risks, benefits, and alternatives, she understands and willing to proceed. Batool Fairbanks MD PGY-7 Interventional Store Hand [facility] NURSNOTEon 11-04-2023 CANDACE RN educated pt on d/ c instructions. RN encouraged pt to voice any questions or concerns. Pt verbalizes no questions or concerns at this time. Pt was wheeled off of unit with all of belongings. [facility] NURSNOTE Report given to CHADWICK Trevino at [facility] from Mairan GENAO Any medications or safety alerts were reviewed. Any pending diagnostics and notifications were also reviewed, as well as any safety concerns or issues, abnormal labs, abnormal imagining, and abnormal assessment findings. Questions were answered. Normal [facility] NURSNOTE Attempt x3 calls mad e to get a hold of nurse at [place] to give report. Message left answering machine and with foundry laborer coreroom phone number for nurse to call back at her convenience. [facility] Orders Onlyon 10-15-2023 Orders Only [id number] Melanie Espinoza 1955 Provider Department Center 10/15/2023 LILY OTOOLE [facility] V[facility] HeartVAS Family History Problem Relation Age of Onset Hypertension Mother Stroke Mother Heart attack Father Family Status - Relation Status Age at Mother Father [facility] Abstracton 09-27-2023 Abstract [id number] Melanie Espinoza 1955 Provider Department Center 09/27/2023 ERNESTO KAPLAN [facility] Family History Problem Relation Age of Onset Hypertension Mother Stroke Mother Heart attack Father Family Status - Relation Status Age at Mother Father [facility] 36on 09-18-2023 36 LMVM TO RETURN MY CALL. IF NURSE CALLS PLEASE FORWARD TO MY LINE.THANKS//MAG [facility] 36 States patient needs more work up from her heart doctor, they would like to know if they need to push out the pre op appt? [facility] Office Visiton 09-18-2023 Follow-up visit [id number] Melanie Espinoza 1955 Provider Department Center 09/18/2023 24556-SNQLYSLEONIE JOYA KARI [facility] Family History Problem Relation Age of Onset Hypertension Mother Stroke Mother Heart attack Father Family Status - Relation Status Age at Mother Father Level of Service:96086 [place] OFFICE/OUTPATIENT NEW MODERATE MDM [address] [facility] Follow-Upon 07-04-2023 Follow-Up [id number] Melanie Espinoza 1955 Provider Department Center 07/04/2023 ERNESTO KAPLAN ORTHO MPORTHO Family History Family history unknown: Yes Level of Service:79173 [place] OFFICE/OUTPATIENT ESTABLISHED MOD MDM 30 MIN () Reason for Visit and Comments: Pain [136] [facility] CT HIP LEFT WO IV CONTRASTon [...] not completely assessed. Electronically signed: Scooby Kelly. [facility] CT PELVIS WO IV CONTRASTon 0 [...] Electronically signed: Scooby Kelly. [facility] CNOVon 05-14-2023 CNOV Office Visit ([facility]) MELANIE ESPINOZA ([id number]) 1955 F Date Time Provider Department 05/14/23 4:00 PM TAI HINOJOSA [facility] During your visit today, we recorded the following information about you: Pulse Blood pressure Weight Height 81/minute 175/92 43.1 kg 1.6 m Tai Hinojosa MD 05/14/2023 4:40 PM Signed May 14, 2023 Tai Hinojosa MD [address] / [address] [address] Esteban Garza MD ([facility]) [address] [place] [address] Melanie Espinoza : 1955 Interval History: Melanie Espinoza is a 67 year old woman with a 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 The patient is seen with a bull driver. Her symptoms persist. Increasing the clonazepam [...] facial m (more content not included)... Normal [facility] Follow-Upon 04-04-2023 Follow-Up [id number] Melanie Espinoza 1955 F Date Provider Department Center 04/04/2023 293-ERNESTO KAN MP ORTHO MPORTHO Family History Family history unknown: Yes Level of Service:75205 [place] OFFICE/OUTPATIENT ESTABLISHED LOW MDM 20 MIN (GC) Reason for Visit and Comments: Pain [136] - L hip possible fracture, patient states she fell at [facility] last night Normal [facility] Office Visiton 03-04-2023 Follow-up visit [id number] Melanie Espinoza 1955 F Date Provider Department Center 03/04/2023 499-HERVE STARKEY MP ORTHO MPORTHO Family History Family history unknown: Yes Level of Service:71037 [place] OFFICE/OUTPATIENT ESTABLISHED LOW MDM 20-29 MIN Reason for Visit and Comments: Pain [136] Normal [facility] CNOVon 01-08-2023 CNOV Office Visit ([facility]) MELANIE ESPINOZA ([id number]) 1955 F Date Time Provider Department 01/08/23 2:00 PM TAI HINOJOSA [facility] During your visit today, we recorded the following information about you: Pulse Blood pressure Weight Height 83/minute 150/72 44.5 kg 1.6 m Tai Hinojosa MD 01/08/2023 2:41 PM Signed January 08, 2023 Tai Hinojosa MD [address] / [place] [address] Esteban Garza MD ([facility]) [address] [place] [address] Melanie Espinoza : 1955 Interval History: Melanie [...] no CP (more content not included)... Normal [facility] XR SHOULDER RT 2V or [...] SIMON ANDRADE Date: 2022-06-04 10:57 Normal [facility] CBC AUTO DIFFon 04-19-2022 BASO # 0.0 103/ul Normal 0.0-0.1 [facility] Comment on above: Performed By: #### C BC #### [facility] [address] [address] [address] Miranda Claudio Basophils/100 WBC (Bld) 0.2 % Normal 0.2-2.0 [facility] Comment on above: Performed By: #### C BC #### [facility] [address] [place] [address] Dr. Miranda Claudio EO # 0.0 103/ul Normal 0.0-0.7 [facility] Comment on above: Performed By: #### C BC #### [facility] [address] [address] [address] Miranda Claudio Eosinophils/100 WBC (Bld) 0.4 % Critically low 0.9-7.0 [facility] Comment on above: Performed By: #### C BC #### [facility] [address] [place] [address] Dr. Miranda Claudio Erythrocyte distribution width (RBC) [Ratio] 13.7 % Normal 11.0-15.0 [facility] Comment on above: Performed By: #### C BC #### [facility] [address] [place] [address] Dr. Miranda Claudio Hematocrit (Bld) [Volume fraction] 33.6 % Critically low 36.0-48.0 [facility] Comment on above: Performed By: #### C BC #### [facility] [address] [place] [address] Dr. Miranda Claudio Hemoglobin (Bld) [Mass/Vol] 11.4 g/dL Critically low 12.0-16.0 [facility] Comment on above: Performed By: #### C BC #### [facility] [address] [place] [address] Dr. Miranda Claudio IG # 0.02 10e3/ul Normal 0.00-0.03 [facility] Comment on above: Performed By: #### C BC #### [facility] [address] [place] [address] Dr. Miranda Claudio IG % 0.4 % Normal 0.0-0.5 [facility] Comment on above: Performed By: #### C BC #### [facility] [address] [place] [address] Dr. Miranda Claudio LYMPH # 0.9 103/ul Critically low 1.2-3.8 [facility] Comment on above: Performed By: #### C BC #### [facility] [address] [place] [address] Dr. Miranda Claudio Lymphocytes/100 WBC (Bld) 18.4 % Critically low 20.5-60.0 [facility] Comment on above: Performed By: #### C BC #### [facility] [address] [place] [address] Dr. Miranda Claudio MANUAL DIFF REQ NO Normal [facility] Comment on above: Performed By: #### C BC #### [facility] [address] [place] [address] Dr. Miranda Claudio MCH (RBC) [Entitic mass] 26.5 pg Critically low 26.7-34.0 [facility] Comment on above: Performed By: #### C BC #### [facility] [address] [place] [address] Dr. Miranda Claudio MCHC (RBC) [Mass/Vol] 33.9 g/dL Normal 29.9-35.2 [facility] Comment on above: Performed By: #### C BC #### [facility] [address] [place] [address] Dr. Miranda Claudio MCV (RBC) [Entitic vol] 78.0 fL Critically low 81.0-99. 0 [facility] Comment on above: Performed By: #### C BC #### [facility] [address] [place] [address] Dr. Miranda Claudio MONO # 0.6 103/ul Normal 0.3-0.8 [facility] Comment on above: Performed By: #### C BC #### [facility] [address] [place] [address] Dr. Miranda Claudio Monocytes/100 WBC (Bld) 11.7 % Normal 1.7-12.0 [facility] Comment on above: Performed By: #### C BC #### [facility] [address] [place] [address] Dr. Miranda Claudio NEUT # 3.3 103/ul Normal 1.4-6.5 [facility] Comment on above: Performed By: #### C BC #### [facility] [address] [place] [address] Dr. Miranda Claudio Neutrophils/100 WBC (Bld) 68.9 % Normal 43.0-75.0 [facility] Comment on above: Performed By: #### C BC #### [facility] [address] [place] [address] Dr. Miranda Claudio Platelet mean volume (Bld) [Entitic vol] 8.1 fL Critically low 9.5-13.5 [facility] Comment on above: Performed By: #### C BC #### [facility] [address] [place] [address] Dr. Miranda Claudio PLT 394 103/ul Normal 150-450 [facility] Comment on above: Performed By: #### C BC #### [facility] [address] [place] [address] Dr. Miranda Claudio RBC 4.31 106/ul Normal 4.20-5.40 [facility] Comment on above: Performed By: #### C BC #### [facility] [address] [place] [address] Dr. Miranda Claudio WBC 4.8 103/ul Normal 4.0-11.0 [facility] Comment on above: Performed By: #### C BC #### [facility] [address] [place] [address] Dr. Miranda Claudio PROF 14(COMP METB)on 023 Albumin [Mass/Vol] 2.7 g/dL Critically low 3.4-5.0 [facility] Comment on above: Performed By: #### C MP #### [facility] [address] [place] [address] Dr. Miranda Claudio Albumin/Globulin [Mass ratio] 0.8 {ratio} Normal [facility] Comment on above: Performed By: #### C MP #### [facility] [address] [place] [address] Dr. Miranda Claudio ALP [Catalytic activity/Vol] 64 U/L Normal 46-116 [facility] Comment on above: Performed By: #### C MP #### [facility] [address] [place] [address] Dr. Miranda Claudio ALT [Catalytic activity/Vol] 33 U/L Normal 14-59 [facility] Comment on above: Performed By: #### C MP #### [facility] [address] [place] [address] Dr. Miranda Claudio Anion gap [Moles/Vol] 12.1 mmol/L Normal [facility] Comment on above: Performed By: #### C MP #### [facility] [address] [place] [address] Dr. Miranda Claudio AST [Catalytic activity/Vol] 64 U/L Critically high 15-37 [facility] Comment on above: Performed By: #### C MP #### [facility] [address] [place] [address] Dr. Miranda Claudio Bilirubin [Mass/Vol] 0.2 mg/dL Normal 0.2-1.0 [facility] Comment on above: Performed By: #### C MP #### [facility] [address] [place] [address] Dr. Miranda Claudio Calcium [Mass/Vol] 7.9 mg/dL Critically low 8.5-10.1 [facility] Comment on above: Performed By: #### C MP #### [facility] [address] [place] [address] Dr. Miranda Claudio Chloride [Moles/Vol] 98 mmol/L Normal 98-107 [facility] Comment on above: Performed By: #### C MP #### [facility] [address] [address] [address] Miranda Claudio CO2 [Moles/Vol] 26.7 mmol/L Normal 21.0-32.0 [facility] Comment on above: Performed By: #### C MP #### [facility] [address] [address] [address] Miranda Claudio Creatinine [Mass/Vol] 0.44 mg/dL Critically low 0.55-1.02 [facility] Comment on above: Performed By: #### C MP #### [facility] [address] [address] [address] Miranda Claudio EGFR-AF MONEGASQUE >60 Normal >=60 [facility] Comment on above: Performed By: #### C MP #### [facility] [address] [address] [address] Miranda Claudio EGFR-NON AF MONEGASQUE >60 Normal >=60 [facility] Comment on above: Performed By: #### C MP #### [facility] [address] [address] [address] Miranda Claudio Globulin (S) [Mass/Vol] 3.3 g/dL Normal [facility] Comment on above: Performed By: #### C MP #### [facility] [address] [address] [address] Miranda Claudio Glucose [Mass/Vol] 78 mg/dL Normal 74-106 [facility] Comment on above: Performed By: #### C MP #### [facility] [address] [address] [address] Miranda Claudio Potassium [Moles/Vol] 2.8 mmol/L Critically low 3.5-5.1 [facility] Comment on above: Performed By: #### C MP #### [facility] [address] [address] [address] Miranda Claudio Protein [Mass/Vol] 6.0 g/dL Critically low 6.4-8.2 [facility] Comment on above: Performed By: #### C MP #### [facility] [address] [place], [place] [address] Dr. Miranda Claudio Sodium [Moles/Vol] 134 mmol/L Critically low 136-145 [facility] Comment on above: Performed By: #### C MP #### [facility] [address] [place], [place] [address] Dr. Miranda Claudio Urea nitrogen [Mass/Vol] 4.0 mg/dL Critically low 7.0-18.0 [facility] Comment on above: Performed By: #### C MP #### [facility] [address] [place], [place] [address] Dr. Miranda Claudio Urea nitrogen/Creatinine [Mass ratio] 9.1 mg/mg Normal [facility] Comment on above: Performed By: #### C MP #### [facility] [id number] Miranda Claudio XR CHEST 1 Von [...] CM RAMIREZ Date: 2022-04-19 07:08 Normal [facility] CARDIAC EMMA ADMITon 022 CK [Catalytic activity/Vol] 412 U/L Critically high 26-192 [facility] Comment on above: Performed By: #### C MADM, CMP ####[facility] [address] [id number]. Miranda Claudio CK.MB [Mass/Vol] 19.37 ng/mL Critically high <=3.60 [facility] Comment on above: Performed By: #### C MADM, CMP ####[facility] [address] [id number]. Miranda Claudio HSTROP 5.9 pg/mL Normal 4.0-51.3 [facility] Comment on above: Result Comment: CUT- OFF POINTS HAVE BEEN ESTABLISHED BASED ON THE FOURTH UNIVERSAL DEFINITIONS OF MYOCARDIAL INFARCTION. THE UPPER REFERENCE LIMIT (URL) OF TROPONIN, DEFINED THE 99TH PERCENTILE OF cTnI DISTRIBUTION IN A REFERENCE POPULATION, HAS BEEN CONFIRMED THE DECISION THRESHOLD FOR [place] DIAGNOSIS. Performed By: #### C JESS, CMP ####[facility] [address] [address]DrSofía Claudio MARKEL 82 ng/mL Normal 9-82 [facility] Comment on above: Performed By: #### C JESS, CMP ####[facility] [address] [address]Dr. Miranda Claudio CBC AUTO DIFFon 03-23-2022 BASO # 0.1 103/ul Normal 0.0-0.1 [facility] Comment on above: Performed By: #### C BC ####[facility] [address] [place], [place] [address]DrSofía Claudio Basophils/100 WBC (Bld) 0.5 % Normal 0.2-2.0 [facility] Comment on above: Performed By: #### C BC ####[facility] [address] [place], [place] [address]DrSofía Claudio EO # 0.5 103/ul Normal 0.0-0.7 [facility] Comment on above: Performed By: #### C BC ####[facility] [address] [place], [place] [address]DrSofía Claudio Eosinophils/100 WBC (Bld) 4.1 % Normal 0.9-7.0 [facility] Comment on above: Performed By: #### C BC ####[facility] [address] [place], [place] [address]DrSofía Claudio Erythrocyte distribution width (RBC) [Ratio] 13.9 % Normal 11.0-15.0 [facility] Comment on above: Performed By: #### C BC ####[facility] [address] [place], [place] [address]DrSofía Claudio Hematocrit (Bld) [Volume fraction] 35.1 % Critically low 36.0-48.0 [facility] Comment on above: Performed By: #### C BC ####[facility] [address] [address]DrSofía Claudio Hemoglobin (Bld) [Mass/Vol] 11.7 g/dL Critically low 12.0-16.0 [facility] Comment on above: Performed By: #### C BC ####[facility] [address] [place], [place] [address]DrSofía Claudio IG # 0.05 10e3/ul Critically high 0.00-0.03 [facility] Comment on above: Performed By: #### C BC ####[facility] [address] [place], [place] [address]DrSofía Claudio IG % 0.4 % Normal 0.0-0.5 [facility] Comment on above: Performed By: #### C BC ####[facility] [address] [place], [place] [address]DrSofía Claudio LYMPH # 1.5 103/ul Normal 1.2-3.8 [facility] Comment on above: Performed By: #### C BC ####[facility] [address] [place], [place] [address]DrSofía Claudio Lymphocytes/100 WBC (Bld) 12.7 % Critically low 20.5-60.0 [facility] Comment on above: Performed By: #### C BC ####[facility] [address] [place], [place] [address]DrSofía Claudio MANUAL DIFF REQ NO Normal [facility] [place] [facility] Comment on above: Performed By: #### C BC ####[facility] [address] [place], [place] [address]DrSofía Claudio MCH (RBC) [Entitic mass] 26.1 pg Critically low 26.7-34.0 [facility] Comment on above: Performed By: #### C BC ####[facility] [address] [place], [place] [address]DrSofía Claudio MCHC (RBC) [Mass/Vol] 33.3 g/dL Normal 29.9-35.2 [facility] Comment on above: Performed By: #### C BC ####[facility] [address] [address]Dr. Renettadeon Claudio MCV (RBC) [Entitic vol] 78.3 fL Critically low 81.0-99. 0 [facility] Comment on above: Performed By: #### C BC ####[facility] [address] [place], [place] [address]Dr. Miranda Claudio MONO # 1.2 103/ul Critically high 0.3-0.8 [facility] [place] [facility] Comment on above: Performed By: #### C BC ####[facility] [address] [place], [place] [address]Dr. Miranda Claudio Monocytes/100 WBC (Bld) 10.5 % Normal 1.7-12.0 [facility] Comment on above: Performed By: #### C BC ####[facility] [address] [place], [place] [address]Dr. Renettadeon González NEUT # 8.3 103/ul Critically high 1.4-6.5 [facility] [place] [facility] Comment on above: Performed By: #### C BC ####[facility] [address] [place], [place] [address]Dr. Miranda Claudio Neutrophils/100 WBC (Bld) 71.8 % Normal 43.0-75.0 [facility] Comment on above: Performed By: #### C BC ####[facility] [address] [place], [place] [address]Dr. Miranda Claudio Platelet mean volume (Bld) [Entitic vol] 8.5 fL Critically low 9.5-13.5 [facility] Comment on above: Performed By: #### C BC ####[facility] [address] [place], [place] [address]Dr. Miranda Claudio PLT 349 103/ul Normal 150-450 [facility] Comment on above: Performed By: #### C BC ####[facility] [address] [place], [place] [address]DrSofía Claudio RBC 4.48 106/ul Normal 4.20-5.40 [facility] Comment on above: Performed By: #### C BC ####[facility] [address] [place], [place] [address]YuSofía Claudio WBC 11.6 103/ul Critically high 4.0-11.0 [facility] Comment on above: Performed By: #### C BC ####[facility] [address] [id number]. Miranda Claudio Covid-19 PCR (CVDTBH)on SARS-CoV-2 (COVID-19) RNA LARY+probe Ql (Unsp spec) Not detected Normal NOT DETECTED [facility] Comment on above: Result Comment: When [...] for this test is supported by the [place] of Health and Human Service's declaration that [...] used). Performed By: #### C VDTBH #### [facility] [address] [address] [address] Miranda Claudio ER URINE PROFILEon 2 Bilirubin Ql (U) Negative Normal NEGATIVE [facility] Comment on above: Performed By: #### E RUR #### [facility] [address] [address] [address] Miranda Claudio Clarity (U) CLEAR Normal CLEAR [facility] Comment on above: Performed By: #### E RUR #### [facility] [address] [place] [address] Dr. Miranda Claudio Color (U) LT. YELLOW Normal YELLOW [facility] Comment on above: Performed By: #### E RUR #### [facility] [address] [place] [address] Dr. Miranda WICK A micrscopic examination will be performed if indicated. Normal [facility] Comment on above: Performed By: #### E RUR #### [facility] [address] [place] [address] Dr. Miranda Claudio Glucose Ql (U) Negative Normal NEGATIVE [facility] Comment on above: Performed By: #### E RUR #### [facility] [address] [place] [address] Dr. Miranda Claudio Hemoglobin Ql (U) Negative Normal NEGATIVE [facility] Comment on above: Performed By: #### E RUR #### [facility] [address] [place] [address] Dr. Miranda Claudoi Ketones Ql (U) Negative Normal NEGATIVE [facility] Comment on above: Performed By: #### E RUR #### [facility] [address] [place] [address] Dr. Miranda Claudio LEUKOCYTES Negative Normal NEGATIVE [facility] Comment on above: Performed By: #### E RUR #### [facility] [address] [place] [address] Dr. Miranda Claudio Nitrite Ql (U) Negative Normal NEGATIVE [facility] Comment on above: Performed By: #### E RUR #### [facility] [address] [place] [address] Dr. Miranda Claudio pH (U) 6.5 [pH] Normal 5-9 [facility] Comment on above: Performed By: #### E RUR #### [facility] [address] [place] [address] Dr. Miranda Claudio SPEC GRAVITY <=1.005 Abnormal 1.005-<=1.02 5 [facility] Comment on above: Performed By: #### E RUR #### [facility] [address] [place] [address] Dr. Miranda Claudio UA PROTEIN Negative Normal NEGATIVE/ TRACE [facility] Comment on above: Performed By: #### E RUR #### [facility] [address] [place] [address] Dr. Miranda Claudio UR MICRO IND NOT INDICATED Normal [facility] Comment on above: Performed By: #### E RUR #### [facility] [address] [place] [address] Dr. Miranda Claudio Urobilinogen Qn (U) 0.2 {Muriel'U}/dL Normal 0.2 - 1. 0 [facility] Comment on above: Performed By: #### E RUR #### [facility] [address] [place] [address] Dr. Miranda Claudio LACTATE/LACTIC ACIDon 2021 Lactate [Moles/Vol] 0.9 mmol/L Normal 0.4-1.9 [facility] Comment on above: Performed By: #### L ACT #### [facility] [address] [place] [address] Dr. Miranda Claudio PROF 14(COMP METB)on 022 Albumin [Mass/Vol] 3.5 g/dL Normal 3.4-5.0 [facility] Comment on above: Performed By: #### C JESS, CMP #### [facility] [address] [place] [address] Dr. Miranda Claudio Albumin/Globulin [Mass ratio] 1.0 {ratio} Normal [facility] Comment on above: Performed By: #### C JASWINDERM, CMP #### [facility] [address] [place] [address] Dr. Miranda Claudio ALP [Catalytic activity/Vol] 73 U/L Normal 46-116 [facility] Comment on above: Performed By: #### C JESS, CMP #### [facility] [address] [place] [address] Dr. Miranda Claudio ALT [Catalytic activity/Vol] 16 U/L Normal 14-59 [facility] Comment on above: Performed By: #### C MADM, CMP #### [facility] [address] [address] [address] Miranda Claudio Anion gap [Moles/Vol] 14.4 mmol/L Normal [facility] Comment on above: Performed By: #### C MADM, CMP #### [facility] [address] [address] [address] Miranda Claudio AST [Catalytic activity/Vol] 26 U/L Normal 15-37 [facility] Comment on above: Performed By: #### C MADM, CMP #### [facility] [address] [address] [address] Miranda Claudio Bilirubin [Mass/Vol] 0.2 mg/dL Normal 0.2-1.0 [facility] Comment on above: Performed By: #### C MADM, CMP #### [facility] [address] [place] [address] Dr. Miranda Claudio Calcium [Mass/Vol] 8.3 mg/dL Critically low 8.5-10.1 [facility] Comment on above: Performed By: #### C JASWINDERM, CMP #### [facility] [address] [address] [address] Miranda Claudio Chloride [Moles/Vol] 93 mmol/L Critically low 98-107 [facility] Comment on above: Performed By: #### C JASWINDERM, CMP #### [facility] [address] [address] [address] Miranda Claudio CO2 [Moles/Vol] 23.5 mmol/L Normal 21.0-32.0 [facility] Comment on above: Performed By: #### C JASWINDERM, CMP #### [facility] [address] [address] [address] Miranda Claudio Creatinine [Mass/Vol] 0.54 mg/dL Critically low 0.55-1.02 [facility] Comment on above: Performed By: #### C MADM, CMP #### [facility] [address] [place] [address] Dr. Miranda Claudio EGFR-AF MONEGASQUE >60 Normal >=60 [facility] Comment on above: Performed By: #### C MADM, CMP #### [facility] [address] [address] [address] Miranda Claudio EGFR-NON AF MONEGASQUE >60 Normal >=60 [facility] Comment on above: Performed By: #### C MADM, CMP #### [facility] [address] [address] [address] Miranda Claudio Globulin (S) [Mass/Vol] 3.6 g/dL Normal T [facility] Comment on above: Performed By: #### C MADM, CMP #### [facility] [address] [address] [address] Miranda Claudio Glucose [Mass/Vol] 91 mg/dL Normal 74-106 [facility] Comment on above: Performed By: #### C MADM, CMP #### [facility] [address] [place] [address] Dr. Miranda Claudio Potassium [Moles/Vol] 3.9 mmol/L Normal 3.5-5.1 [facility] Comment on above: Performed By: #### C MADM, CMP #### [facility] [address] [address] [address] Miranda Claudio Protein [Mass/Vol] 7.1 g/dL Normal 6.4-8.2 [facility] Comment on above: Performed By: #### C MADM, CMP #### [facility] [address] [address] [address] Miranda Claudio Sodium [Moles/Vol] 127 mmol/L Critically low 136-145 [facility] Comment on above: Performed By: #### C MADM, CMP #### [facility] [address] [address] [address] Miranda Claudio Urea nitrogen [Mass/Vol] 8.0 mg/dL Normal 7.0-18.0 [facility] Comment on above: Performed By: #### C MADM, CMP #### [facility] [address] [address] [address] Miranda Claudio Urea nitrogen/Creatinine [Mass ratio] 14.8 mg/mg Normal [facility] Comment on above: Performed By: #### C MADM, CMP #### [facility] [address] [address] [address] Miranda Claudio TYPE AND SCREENon 03-23-2022 TYPE AND SCREEN Negative Normal [facility] Comment on above: Performed By: #### T NS ####[facility] [address] [place], [place] [address]Dr. Miranda Claudio NM HEPATOBILIARY SCAN W EFon [...] by: MESHA CARRASCO Date: 2022-02-23 11:03 Normal [facility] CBC AUTO DIFFon 01-27-2022 BASO # 0.1 103/ul Normal 0.0-0.1 [facility] Comment on above: Performed By: #### C BC #### [facility] [address] [address] [address] Miranda Claudio Basophils/100 WBC (Bld) 0.7 % Normal 0.2-2.0 [facility] Comment on above: Performed By: #### C BC #### [facility] [address] [address] [address] Miranda Claudio EO # 0.4 103/ul Normal 0.0-0.7 [facility] Comment on above: Performed By: #### C BC #### [facility] [address] [address] [address] Miranda Claudio Eosinophils/100 WBC (Bld) 4.0 % Normal 0.9-7.0 [facility] Comment on above: Performed By: #### C BC #### [facility] [address] [place] [address] Dr. Miranda Claudio Erythrocyte distribution width (RBC) [Ratio] 14.2 % Normal 11.0-15.0 [facility] Comment on above: Performed By: #### C BC #### [facility] [address] [place] [address] Dr. Miranda Claudio Hematocrit (Bld) [Volume fraction] 39.9 % Normal 36.0-48.0 [facility] Comment on above: Performed By: #### C BC #### [facility] [address] [place] [address] Dr. Miranda Claudio Hemoglobin (Bld) [Mass/Vol] 13.0 g/dL Normal 12.0-16.0 [facility] Comment on above: Performed By: #### C BC #### [facility] [address] [place] [address] Dr. Miranda Claudio IG # 0.03 10e3/ul Normal 0.00-0.03 [facility] Comment on above: Performed By: #### C BC #### [facility] [address] [place] [address] Dr. Miranda Claudio IG % 0.3 % Normal 0.0-0.5 [facility] Comment on above: Performed By: #### C BC #### [facility] [address] [place] [address] Dr. Miranda Claudio LYMPH # 2.2 103/ul Normal 1.2-3.8 [facility] Comment on above: Performed By: #### C BC #### [facility] [address] [place] [address] Dr. Miranda Claudio Lymphocytes/100 WBC (Bld) 23.6 % Normal 20.5-60.0 [facility] Comment on above: Performed By: #### C BC #### [facility] [address] [place] [address] Dr. Miranda Claudio MANUAL DIFF REQ NO Normal [facility] Comment on above: Performed By: #### C BC #### [facility] [address] [place] [address] Dr. Miranda Claudio MCH (RBC) [Entitic mass] 27.1 pg Normal 26.7-34.0 [facility] Comment on above: Performed By: #### C BC #### [facility] [address] [place] [address] Dr. Miranda Claudio MCHC (RBC) [Mass/Vol] 32.6 g/dL Normal 29.9-35.2 [facility] Comment on above: Performed By: #### C BC #### [facility] [address] [place] [address] Dr. Miranad Claudio MCV (RBC) [Entitic vol] 83.1 fL Normal 81.0-99.0 [facility] Comment on above: Performed By: #### C BC #### [facility] [address] [place] [address] Dr. Miranda Claudio MONO # 0.8 103/ul Normal 0.3-0.8 [facility] Comment on above: Performed By: #### C BC #### [facility] [address] [place] [address] Dr. Miranda Claudio Monocytes/100 WBC (Bld) 8.5 % Normal 1.7-12.0 [facility] Comment on above: Performed By: #### C BC #### [facility] [address] [place] [address] Dr. Miranda Claudio NEUT # 5.9 103/ul Normal 1.4-6.5 [facility] Comment on above: Performed By: #### C BC #### [facility] [address] [place] [address] Dr. Miranda Claudio Neutrophils/100 WBC (Bld) 62.9 % Normal 43.0-75.0 [facility] Comment on above: Performed By: #### C BC #### [facility] [address] [place] [address] Dr. Miranda Claudio Platelet mean volume (Bld) [Entitic vol] 7.6 fL Critically low 9.5-13.5 [facility] Comment on above: Performed By: #### C BC #### [facility] [address] [address] [address] Miranda Claudio PLT 405 103/ul Normal 150-450 [facility] Comment on above: Performed By: #### C BC #### [facility] [address] [address] [address] Miranda Claudio RBC 4.80 106/ul Normal 4.20-5.40 [facility] Comment on above: Performed By: #### C BC #### [facility] [address] [address] [address] Miranda Claudio WBC 9.4 103/ul Normal 4.0-11.0 [facility] Comment on above: Performed By: #### C BC #### [facility] [address] [address] [address] Miranda Claudio ER URINE PROFILEon 2 Bilirubin Ql (U) Negative Normal NEGATIVE [facility] Comment on above: Performed By: #### U MICRO, ERUR ####[facility] [address] [place], [place] [address]Dr. Miranda Claudio Clarity (U) CLEAR Normal CLEAR [facility] Comment on above: Performed By: #### U MICRO, ERUR ####[facility] [address] [address]Dr. Miranda Claudio Color (U) LT. YELLOW Normal YELLOW [facility] Comment on above: Performed By: #### U MICRO, ERUR ####[facility] [address] [address]DrSofía Claudio ERUAHD A micrscopic examination will be performed if indicated. Normal [facility] Comment on above: Performed By: #### U MICRO, ERUR ####[facility] [address] [address]DrSofía lCaudio Glucose Ql (U) Negative Normal NEGATIVE [facility] Comment on above: Performed By: #### U MICRO, ERUR ####[facility] [address] [address]Dr. Miranda Claudio Hemoglobin Ql (U) TRACE-LYSED Abnormal NEGATIVE [facility] Comment on above: Performed By: #### U MICRO, ERUR ####[facility] [address] [address]Dr. Miranda Claudio Ketones Ql (U) Negative Normal NEGATIVE [facility] Comment on above: Performed By: #### U MICRO, ERUR ####[facility] [address] [place], [place] [address]Dr. Miranda Claudio LEUKOCYTES Negative Normal NEGATIVE [facility] Comment on above: Performed By: #### U MICRO, ERUR ####[facility] [address] [place], [place] [address]Dr. Miranda Claudoi Nitrite Ql (U) Negative Normal NEGATIVE [facility] Comment on above: Performed By: #### U MICRO, ERUR ####[facility] [address] [place], [place] [address]Dr. Miranda Claudio pH (U) 7.0 [pH] Normal 5-9 [facility] Comment on above: Performed By: #### U MICRO, ERUR ####[facility] [address] [place], [place] [address]Dr. Miranda Claudio SPEC GRAVITY <=1.005 Abnormal 1.005-<=1.02 5 [facility] Comment on above: Performed By: #### U MICRO, ERUR ####[facility] [address] [place], [place] [address]Dr. Miranda Claudio UA PROTEIN Negative Normal NEGATIVE/ TRACE [facility] Comment on above: Performed By: #### U MICRO, ERUR ####[facility] [address] [place], [place] [address]Dr. Miranda Claudio UR MICRO IND INDICATED Normal [facility] Comment on above: Performed By: #### U MICRO, ERUR ####[facility] [address] [place], [place] [address]Dr. Miranda Claudio Urobilinogen Qn (U) 0.2 {Muriel'U}/dL Normal 0.2 - 1. 0 [facility] Comment on above: Performed By: #### U MICRO, ERUR ####[facility] [address] [place], [place] [address]Dr. Miranda Claudio PROF 14(COMP METB)on 01-27- 022 Albumin [Mass/Vol] 3.5 g/dL Normal 3.4-5.0 [facility] Comment on above: Performed By: #### C MP #### [facility] [address] [address] [address] Miranda Claudio Albumin/Globulin [Mass ratio] 1.0 {ratio} Normal [facility] Comment on above: Performed By: #### C MP #### [facility] [address] [address] [address] Miranda Claudio ALP [Catalytic activity/Vol] 66 U/L Normal 46-116 [facility] Comment on above: Performed By: #### C MP #### [facility] [address] [address] [address] Miranda Claudio ALT [Catalytic activity/Vol] 15 U/L Normal 14-59 [facility] Comment on above: Performed By: #### C MP #### [facility] [address] [address] [address] Miranda Claudio Anion gap [Moles/Vol] 7.1 mmol/L Normal [facility] Comment on above: Performed By: #### C MP #### [facility] [address] [address] [address] Miranda Claudio AST [Catalytic activity/Vol] 16 U/L Normal 15-37 [facility] Comment on above: Performed By: #### C MP #### [facility] [address] [address] [address] Miranda Claudio Bilirubin [Mass/Vol] 0.1 mg/dL Critically low 0.2-1.0 [facility] Comment on above: Performed By: #### C MP #### [facility] [address] [address] [address] Miranda Claudio Calcium [Mass/Vol] 9.1 mg/dL Normal 8.5-10.[address] [facility] Comment on above: Performed By: #### C MP #### [facility] [address] [address] [address] Miranda Claudio Chloride [Moles/Vol] 100 mmol/L Normal 98-107 [facility] Comment on above: Performed By: #### C MP #### [facility] [address] [address] [address] Miranda Claudio CO2 [Moles/Vol] 30.7 mmol/L Normal 21.0-32.0 [facility] Comment on above: Performed By: #### C MP #### [facility] [address] [address] [address] Miranda Claudio Creatinine [Mass/Vol] 0.64 mg/dL Normal 0.55-1.02 [facility] Comment on above: Performed By: #### C MP #### [facility] [address] [place] [address] Dr. Miranda Claudio EGFR-AF MONEGASQUE >60 Normal >=60 [facility] Comment on above: Performed By: #### C MP #### [facility] [address] [address] [address] Miranda Claudio EGFR-NON AF MONEGASQUE >60 Normal >=60 [facility] Comment on above: Performed By: #### C MP #### [facility] [address] [address] [address] Miranda Claudio Globulin (S) [Mass/Vol] 3.6 g/dL Normal T [facility] Comment on above: Performed By: #### C MP #### [facility] [address] [address] [address] Miranda Claudio Glucose [Mass/Vol] 68 mg/dL Critically low 74-106 [facility] Comment on above: Performed By: #### C MP #### [facility] [address] [place] [address] Dr. Miranda Claudio Potassium [Moles/Vol] 3.8 mmol/L Normal 3.5-5.1 [facility] Comment on above: Performed By: #### C MP #### [facility] [address] [id number] Miranda Claudio Protein [Mass/Vol] 7.1 g/dL Normal 6.4-8.[address] [facility] Comment on above: Performed By: #### C MP #### [facility] [address] [address] [address] Miranda Claudio Sodium [Moles/Vol] 134 mmol/L Critically low 136-145 [facility] Comment on above: Performed By: #### C MP #### [facility] [address] [address] [address] Miranda Claudio Urea nitrogen [Mass/Vol] 14.0 mg/dL Normal 7.0-18.0 [facility] Comment on above: Performed By: #### C MP #### [facility] [address] [address] [address] Miranda Claudio Urea nitrogen/Creatinine [Mass ratio] 21.9 mg/mg Normal [facility] Comment on above: Performed By: #### C MP #### [facility] [address] [address] [address] Miranda Claudio URINE MICROSCOPIC ONLYon BACTERIA NONE SEEN Normal NONE SEEN [facility] Comment on above: Performed By: #### U MICRO, ERUR ####[facility] [address] [address]DrSofía Claudio Bacteria identified Cx Nom (U) NOT INDICATED Normal [facility] Comment on above: Performed By: #### U MICRO, ERUR ####[facility] [address] [address]DrSofía Claudio CAST NONE SEEN Normal NONE SEEN [facility] Comment on above: Performed By: #### U MICRO, ERUR ####[facility] [address] [address]DrSofía Claudio Crystals LM Nom (Urine sed) NONE SEEN Normal NONE SEEN [facility] Comment on above: Performed By: #### U MICRO, ERUR ####[facility] [address] [address]DrSofía Claudio Epithelial cells LM Ql (Urine sed) NONE SEEN Normal NONE SEEN /RARE [facility] Comment on above: Performed By: #### U MICRO, ERUR ####[facility] [address] [address]Dr. Miranda Claudio MUCOUS SMALL Abnormal NONE SEEN [facility] Comment on above: Performed By: #### U MICRO, ERUR ####[facility] [address] [address]Dr. Miranda Claudio RBC 0-2 Normal 0-2 [facility] Comment on above: Performed By: #### U MICRO, ERUR ####[facility] [address] [place], [place] [address]Jj. Miranda Claudio WBC NONE SEEN Normal NONE SEEN [facility] Comment on above: Performed By: #### U MICRO, ERUR ####[facility] [address] [address]Dr. Miranda Claudio XR CHEST 1 Von 01-27-2022 [...] CM ROBLES Date: 2022-01-27 20:30 Normal [facility] XR SHOULDER RT 2V or >on [...] MOMIN Date: 2022-01-27 20:42 Normal [facility] XR SCAPULA RTon 12-27-2021 XR SCAPULA RT [...] Soft Tissues: Unremarkable. Electronically authenticated by: SANTIAGO KIM Date: 2021-12-27 12:55 Normal [facility] COVID-19 Positive/NegativeOr dered By: Stevenson Corbin on 10-13-2021 SARS-CoV-2 (COVID-19) N gene LARY+probe Ql (Resp) Negative Negative [facility] Comment on above: Testing for SARS-CoV -2 by RT-PCR This test was developed and its performance characteristics determined by [employer] and validated at the [facility]. This test has not been FDA cleared [...] By signing my name below, I, Nela Ghislaine DENTON ,Scribe, attest that this documentation has been [...] 2:31:58 PM (more content not included)... Normal [facility] PHQ-2 VITALSon 09-25-2021 Fall risk assessment a) No falls within the last year [facility] [employer] [place] [address] DO Work Phone: Tobacco use status CPHS b) No [facility] [employer] [place] [address] DO Work Phone: PHQ-2 VITALS Yes [facility] [place] [facility] Work Phone: COVID-19 Positive/NegativeOr dered By: Stevenson Corbin on 09-18-2021 SARS-CoV-2 (COVID-19) N gene LARY+probe Ql (Resp) Negative Negative [facility] Comment on above: Testing for SARS-CoV -2 by RT-PCR This test was developed and its performance characteristics determined by [employer] and validated at the [facility]. This test has not been FDA cleared [...] JEFE SAEED Date: 2021-08-22 02:25 Normal [facility] HIP LEFT 1 OR 2 VWS WITH PEL VISon 01-26-2021 HIP LEFT 1 OR 2 VWS WITH PELVIS [facility] Department of Radiology [address] [place] [id number] Patient Name: MELANIE ESPINOZA : 1955 [...] report. Electronically signed: Marisela Reveles. Transcribed by: [email or web address], User Resident: ORIANA REILLY Electronically Signed by: MARISELA REVELES @ 01/27/2021 12:26 PM I personally read this/these film(s) with this resident Normal [facility] Comment on above: Order Comment: Evalu ate HIP LEFT 1 OR 2 VWS WITH PEL VISon 09-15-2020 HIP LEFT 1 OR 2 VWS WITH PELVIS [facility] Department of Radiology [address] [place] [id number] Patient Name: MELANIE ESPINOZA : 1955 [...] Electronically signed: Jose Armando Kwon. Transcribed by: [email or web address], User Resident: Electronically Signed by: JOSE ARMANDO KWON @ 09/15/2020 08:28 PM Normal [facility] Comment on above: Order Comment: evalu ate RAD - Ultrasound Reporton RAD - Ultrasound Report [id number] .00CD:127 Normal [facility] Ambulatory Clinical Summaryo n 08-30-2020 Ambulatory Clinical Summary {[id number]}CD:[id number] Normal [facility] Patient Educationon 08-31-19 Patient Education Urology [...] Follow these instructions at home: ? Take rdvt-sfc-xejcqok and prescription medicines only as told by [...] 01/27/2008 Document Revised: 04/12/2018 Document Reviewed: 04/12/2018 [employer] Patient Education ? 2019 [employer]. [facility] Urology Office/Clinic Noteon 08-30-2020 Urology [...] Urnls Dip Stick Auto w/o Microscopy POC 66787 I have reviewed the previous health record information and history for this patient from Dr. Go Follow-up With When Contact Information Donavan Bailey MD, Justin Massey, URO Only if needed [facility] [address], [place] [address]- Additional Instructions: Patient Education Hydronephrosis I, Marion [...] mg= 1 (more content not included)... Normal [facility] Comment on above: Result Comment: Elec tronically Signed By: Donavan Bailey MD, Justin Massey\.br\Date and Time Signed: 08/30/20 13:04 EDT\.br\Electronically Co-Signed By: Marion Gibson MA\.br\Date and Time Co-Signed: 08/30/20 12:36 EDT Reminderson 08-22-2020 Reminders - From: Edilma Godoy To: [facility] - Clinical; Sent: 08/09/2020 11:42:24 EDT Show up: 08/21/2020 11:42:00 EDT Subject: renal US Reminder/Recall scheduled 08/19/20 at [facility]. patient has f/u scheduled 08/30 for results results scanned in today Normal [facility] Ambulatory Clinical Summaryo n 08-09-2020 Ambulatory Clinical Summary {[id number]}CD:[id number] Normal [facility] Formson 08-09-2020 Forms [id number] .00CD:127 Normal [facility] Patient Educationon 08-10-19 21 Patient Education [...] Follow these instructions at home: ? Take pedm-yqw-cyzhkck and prescription medicines only as told by [...] 01/27/2008 Document Revised: 04/12/2018 Document Reviewed: 04/12/2018 [employer] Patient Education ? 2019 [employer] Box. Normal [facility] Urology Office/Clinic Noteon 08-09-2020 Urology Office/Clinic Note Chief Complaint New patient here for left sided hydronephrosis HPI Staff New patient Melanie is a 65 y.o. female referred by [facility] ER for mild to [...] Urnls Dip Stick Auto w/o Microscopy POC 26909 US Renal Follow-up With When Contact Information Donavan Bailey MD, Justin Massey, URO [facility] [address] [place] [address]- Additional Instructions: after renal u/s Patient Education Hydronephrosis I, Nadiya Freed personally scribed for Dr. Go on 08/09/2020 11:07:27. . Documentation recorded by the Nadiya elise, accurately reflects the services(s) I performed and [...] (at bedtime) (more content not included)... Normal [facility] Comment on above: Result Comment: Elec tronically Signed By: Donavan Bailey MD, Justin Massey\.br\Date and Time Signed: 08/09/20 11:18 EDT\.br\Electronically Co-Signed By: Nadiya Freed MA\.br\Date and Time Co-Signed: 08/09/20 11:07 EDT RAD - CT Reporton 07-12-2020 RAD - CT Report [id number]. 00CD:127 Normal [facility] Consultation Noteon 07-02-19 Consultation Note [id number] .00CD:127 Normal [facility] HIP LEFT 1 OR 2 VWS WITH PEL VISon 06-16-2020 HIP LEFT 1 OR 2 VWS WITH PELVIS [facility] Department of Radiology [address] [place] [id number] Patient Name: MELANIE ESPINOZA : 1955 [...] complication Electronically signed: Willow Stapleton. Transcribed by: [email or web address], User Resident: Electronically Signed by: WILLOW STAPLETON @ 06/17/2020 08:01 AM Normal [facility] Comment on above: Order Comment: Views (X-RAY, HIP): AP Hip, Frogleg Lateral Hip HIP LEFT 1 OR 2 VWS WITH PEL VISon 2020 HIP LEFT 1 OR 2 VWS WITH PELVIS [facility] Department of Radiology [address] [place] [address] Patient Name: MELANIE ESPINOZA : [...] impaction. Electronically signed: Deion Hernandez. Transcribed by: [email or web address], User Resident: Electronically Signed by: DEION HERNANDEZ @ 2020 04:11 PM Normal [facility] HIP LEFT 1 OR 2 VWS WITH PEL VISon 04-14-2020 HIP LEFT 1 OR 2 VWS WITH PELVIS [facility] Department of Radiology [address] [place] [address] Patient Name: MELANIE ESPINOZA : 1955 Sex: F Age: Race: White Pt. Location: Patient Status: O Ordered Date: 04/14/2020 9:20:00 AM Completed Date: 04/14/2020 09:27 AM Requesting Provider: HERVE STARKEY Attending Provider: HERVE STARKEY Report Copy To: Signs & Symptoms: M25.552 Pain in left hip I10 History: [facility] Comments: Evaluate Exam: HIP LEFT 1 OR [...] fracture. Electronically signed: Antonio Bernal. Transcribed by: [email or web address], User Resident: Electronically Signed by: ANTONIO BERNAL @ 04/14/2020 10:04 AM Normal [facility] Comment on above: Order Comment: Evalu ate Coding Summaryon 01-13-2020 Coding Summary CODING DATE: 01/13/2020 [facility] STATUS: Home PAYOR: Medicaid HMO ADMIT DX: [...] Nikhil Zamudio Date Saved: 01/13/2020 06:25 pm [facility] Coding Summary CODING DATE: 01/13/2020 [facility] STATUS: Home PAYOR: Medicaid HMO ADMIT DX: [...] Nikhil Zamudio Date Saved: 01/13/2020 06:24 pm [facility] Coding Summary CODING DATE: 01/13/2020 [facility] STATUS: Home PAYOR: Medicaid HMO ADMIT DX: [...] Zamudio' Date Saved: 01/13/2020 06:24 pm Normal [facility] ED Clinical Summaryon 2019 ED Clinical Summary [facility] - Emergency Department [address] [place] [address] [id number] ED Clinical Summary PERSON INFORMATION Name: MELANIE ESPINOZA Age: 64 Years Sex: FEMALE : 1955 MRN: Acct#: Visit Reason: Hernia; ABD PAIN Arrival: 01/09/2020 15:42:54 Discharge: 01/09/2020 16:20:00 LOS: 000 00:38 Check In: 01/09/2020 15:42:54 Checkout:01/09/2020 16:20:00 Address: [facility] [address] PCP: ESTEBAN GARZA PROVIDER INFORMATION Provider Role [...] Hernia Follow-Up: With: Address: When: Calvin Aguilar [address] [place] [address], [place], [place] [phone] Business (1) Within 2 to 4 days [...] kimberly verbalizes understanding of instructions given Comment: [facility] ED Note - Physicianon 2019 [...] documented in chart. Surgical history: Esophagogastroduodeno scopy ([id number]) on 01/17/2018 at 62 Years., Reviewed as [...] Impression and Plan Diagnosis Incarcerated ventral hernia (TUN61-AP K43.6, Discharge, Medical) Ventral hernia (ZBY11-NZ K43.9, Discharge, Medical) Plan Condition: Improved, Stable. [...] on: 01/12/2020 15:09 EDT] Wade Hassan MD [facility] ED Note-Nursingon 01-09-2020 ED Note-Nursing Pt presents to the E D with a hernia. Pt states increased pain in that area. [facility] ED Patient Education Noteon 01-09-2020 [...] increase pressure on your hernia. ? Take teim-hhe-dowpvua and prescription medicines only as told by [...] 03/18/2013 Document Revised: 05/14/2018 Document Reviewed: 10/21/2017 [employer] Patient Education ? 2019 The Box. [facility] ED Patient Summaryon 020 ED Patient Summary [facility] - Emergency Department [address] [place] [address] PATIENT DISCHARGE INSTRUCTIONS Patient Information Name: MELANIE ESPINOZA Age: 64 Years Date of : 1955 Reason For Visit: Hernia; ABD PAIN Arrival Time: 01/09/2020 15:42:54 Primary Care Physician: ESTEBAN GARZA Attending Physician: Wade Hassan MD Comment: Visit Diagnosis: Diagnoses This Visit Hernia ([id number]) Incarcerated ventral hernia (K43.6) Ventral hernia (K43.9) Prescription Information: If you have been given a prescription for narcotics, seek immediate medical attention if you have any difficulty breathing or any sudden status changes such as confusion and sleepiness. If you or anyone you know is experiencing suicidal thoughts, mental health, alcohol and/or drug addiction problems; contact the [facility] 05/11 Crisis Hotline -Text 4HCET vh 648774. If you received any narcotics, sedation, or [...] legal documents With: Address: When: Calvin Aguilar [address] [place] [address], [address] [place] [phone] Business (1) Within 2 to 4 days [...] and treatment you received today in the [facility] Emergency Department were for an urgent problem and are not intended as complete care. It is important for you to follow up with a doctor, nurse practitioner, or physician?s vet assistant for ongoing care. If your symptoms [...] medications post discharge. Please inform your primary care nurse practitioner/provider of your visit and for further instruction [...] increase pressure on your hernia. ? Take avks-mgg-ifjxqwk and prescription medicines only as told by [...] 03/18/2013 Document Revised: 05/14/2018 Document Reviewed: 10/21/2017 [employer] Patient Education ? 2019 The Box. Viruses or Bacteria What?s got you sick? [...] for Disease Control and Prevention December 2013 Normal [facility] Coding Summaryon 09-24-2019 Coding Summary CODING DATE: 09/24/2019 [facility] STATUS: Home PAYOR: Medicaid HMO ADMIT DX: [...] Carine Ferraro Date Saved: 09/24/2019 03:29 pm [facility] .Thyroglobulin by SKYLAR LCon 0 09-23-2019 Thyroglobulin by SKYLAR LC 13.6 ng/mL 1.5-38.5 [facility] Comment on above: Result Comment: According [...] by Fina Harmony Immunometric Assay Performed At: [facility] [address] [place], [place] [id number] Bebo Jeter PhD Ph:[phone] Performed By: #### 2 [id number], [id number], [id number], [id number], [id number], [id number] ####[facility] (DEFAULT)[address] [place] [address] Provider Orderson 09-23-2019 Provider Orders [id number] .[id number] [facility] T3 Free LCon 09-23-2019 Triiodothyronine,Free,S mirna LC 2.0 pg/mL 2.0-4.4 [facility] Comment on above: Result Comment: Perf ormed At: [facility] [address] [place] [id number] Bebo Jeter PhD Ph:[phone] Performed By: #### 2 [id number], [id number], [id number], [id number], [id number], [id number] #### [facility] (DEFAULT) [address] [place] [address] Thyroglobulin Reflex Profile LCon 09-23-2019 Thyroglobulin Antibody LC <1.0 0.0-0.9 [facility] Comment on above: Result Comment: Thyr oglobulin Antibody measured by [employer] Performed At: [address] [id number] Bebo Jeter PhD Ph:[phone] Performed By: #### 2 [id number], [id number], [id number], [id number], [id number], [id number] ####[facility] (DEFAULT)[address] [place] [address] Thyroid Peroxidase (TPO) Ab on 09-23-2019 Thyroid Peroxidase (TPO) Ab LC <9 0-34 [facility] Comment on above: Result Comment: Perf ormed At: [address] [id number] Bebo Jeter PhD Ph:[phone] Performed By: #### 2 [id number], [id number], [id number], [id number], [id number], [id number] #### [facility] (DEFAULT) [address] [place] [address] Free T4on 09-22-2019 Free T4 [Mass/Vol] 0.90 ng/dL Normal 0.61-1.[address] [facility] Comment on above: Result Comment: Spec imens that contain high levels of Biotin may cause false high results Performed By: #### 2 [id number], [id number], [id number], [id number], [id number], [id number] #### [facility] (DEFAULT) [address] [place] [address] TSHon 09-22-2019 TSH Qn 2.07 mcIU/mL Normal 0.45-5.33 [facility] Comment on above: Result Comment: Gene ral Population (males and non- females, aged 21-88) 0.45 - 5.33 Females, 1st Trimester 0.05 - 3.70 Females, 2nd Trimester 0.31 - 4.35 Females, 3rd Trimester 0.41 - 5.18 Performed By: #### 2 [id number], [id number], [id number], [id number], [id number], [id number] #### [facility] (DEFAULT) [address] [id number] Coding Summaryon 06-18-2019 Coding Summary CODING DATE: 06/18/2019 FINAL [facility] STATUS: Home PAYOR: Medicaid HMO ADMIT [...] Carine Ferraro Date Saved: 06/18/2019 01:32 pm [facility] US Thyroidon 06-17-2019 US Thyroid EXAM: US [...] Huntley MD 06/17/19 4:26 pm Technologist: KRISTINA [facility] Provider Orderson 06-16-2019 Provider Orders [id number] .[id number] [facility] Coding Summaryon 05-29-2019 Coding Summary CODING DATE: 05/29/2019 [facility] STATUS: Home PAYOR: Medicaid HMO ADMIT DX: [...] Deb Law Date Saved: 05/29/2019 12:32 pm [facility] Provider Orderson 05-28-2019 Provider Orders [id number] .[id number] [facility] XR Chest 2 Viewson 0 [...] MD 05/27/19 4:03 pm Technologist: Anatoliy SETH [facility] Vital Signs Date Time Vital Sign Value Performing Clinician Facility 05-06-2024 11:25-0500 Body height 157.5 cm Dionicio Trevizo MD Work Phone: [facility] 05-06-2024 11:25-0500 Heart rate 69 /min Dionicio Trevizo MD Work Phone: [facility] 05-06-2024 11:25-0500 Respiratory rate 16 /min Dionicio Trevizo MD Work Phone: [facility] 04-17-2024 15:57-0500 Diastolic blood pressure 104 mm[Hg] Alexey Polo DO Work Phone: [facility] 04-17-2024 15:57-0500 Heart rate 75 /min [facility]long DO [facility] 04-17-2024 15:57-0500 Systolic blood pressure 143 mm[Hg] Alexey Furlong DO Work Phone: [facility] 04-01-2024 18:28-0500 Body mass index (BMI) [Ratio] 16.37 kg/m2 Alexey Furlong DO Work Phone: [facility] 04-01-2024 18:28-0500 Body temperature 98.2 [degF] Alexey Furlong DO Work Phone: [facility] [facility] 04-01-2024 18:28-0500 Body weight 41.91 kg Alexey Furlong DO Work Phone: [facility] 04-01-2024 18:28-0500 Diastolic blood pressure 85 mm[Hg] Alex[facility]long DO [facility] 04-01-2024 18:28-0500 Heart rate 82 /min Alexey Furlong DO Work Phone: [facility] 04-01-2024 18:28-0500 Respiratory rate 18 /min Alexey Furlong DO [facility] 04-01-2024 18:28-0500 SaO2% (BldA) [Mass fraction] 95 % Alexey Furlong DO Work Phone: [facility] 04-01-2024 18:28-0500 Systolic blood pressure 159 mm[Hg] Alexey Furlong DO Work Phone: [facility] 03-17-2024 18:41-0500 Body temperature 97.81 [degF] Alexey Furlong DO Work Phone: [facility] 03-17-2024 18:41-0500 Diastolic blood pressure 67 mm[Hg] Alexey Furlong DO Work Phone: [facility] 03-17-2024 18:41-0500 Heart rate 64 /min Alexey Furlong DO Work Phone: [facility] 03-17-2024 18:41-0500 Respiratory rate 18 /min Alexey Furlong DO Work Phone: [facility] 03-17-2024 18:41-0500 SaO2% (BldA) [Mass fraction] 96 % Alexey Furlong DO Work Phone: [facility] 03-17-2024 18:41-0500 Systolic blood pressure 121 mm[Hg] Alexey Furlong DO Work Phone: [facility] 03-10-2024 13:47-0500 Body mass index (BMI) [Ratio] 16.05 kg/m2 Alexey Furlong DO Work Phone: [facility] 03-10-2024 13:47-0500 Body temperature 98.01 [degF] Alexey Furlong DO Work Phone: [facility] 03-10-2024 13:47-0500 Body weight 41.1 kg Alexey Furlong DO Work Phone: [facility] 03-10-2024 13:47-0500 Diastolic blood pressure 86 mm[Hg] Alexey Furlong DO Work Phone: [facility] 03-10-2024 13:47-0500 Heart rate 76 /min Alexey Furlong DO Work Phone: [facility] 03-10-2024 13:47-0500 Respiratory rate 17 /min Alexey Furlong DO Work Phone: [facility] 03-10-2024 13:47-0500 SaO2% (BldA) [Mass fraction] 96 % Alexey Furlong DO Work Phone: [facility] 03-10-2024 13:47-0500 Systolic blood pressure 138 mm[Hg] Alexey Furlong DO Work Phone: [facility] 03-08-2024 19:11-0500 Body temperature 97.7 [degF] Alexey Furlong DO Work Phone: [facility] 03-08-2024 19:11-0500 Diastolic blood pressure 74 mm[Hg] Alexey Furlong DO Work Phone: [facility] 03-08-2024 19:11-0500 Heart rate 64 /min Alexey Furlong DO Work Phone: [facility] 03-08-2024 19:11-0500 Systolic blood pressure 128 mm[Hg] Alexey Furlong DO Work Phone: [facility] 02-25-2024 12:57-0500 Body temperature 97 [degF] Alexey Furlong DO Work Phone: [facility] 02-25-2024 12:57-0500 Diastolic blood pressure 90 mm[Hg] Alexey Furlong DO Work Phone: [facility] 02-25-2024 12:57-0500 Heart rate 71 /min Alexey Furlong DO Work Phone: [facility] 02-25-2024 12:57-0500 Respiratory rate 18 /min Alexey Furlong DO Work Phone: [facility] 02-25-2024 12:57-0500 SaO2% (BldA) [Mass fraction] 95 % Alexey Furlong DO Work Phone: [facility] 02-25-2024 12:57-0500 Systolic blood pressure 133 mm[Hg] Alexey Furlong DO Work Phone: [facility] 02-13-2024 13:49-0400 Body height 160.02 cm DO Alexey Furlong Work Phone: [facility] 02-13-2024 11:54-0400 Body temperature 99.1 [degF] DO Alexey Furlong Work Phone: [facility] 02-13-2024 11:54-0400 Diastolic blood pressure 63 mm[Hg] DO Alexey Furlong Work Phone: [facility] 02-13-2024 11:54-0400 Heart rate 96 /min DO Alexey Furlong Work Phone: [facility] 02-13-2024 11:54-0400 Respiratory rate 16 /min DO Alexey Furlong Work Phone: [facility] 02-13-2024 11:54-0400 SaO2% (BldA) [Mass fraction] 95 % DO Alexey Furlong Work Phone: [facility] 02-13-2024 11:54-0400 Systolic blood pressure 169 mm[Hg] DO Alexey Furlong Work Phone: [facility] 02-12-2024 18:25-0400 Inhaled oxygen flow rate 8 L/min DO Alexey Furlong Work Phone: [facility] 02-12-2024 12:30-0400 Body weight 41.7 kg DO Alexey Furlong Work Phone: [facility] 02-04-2024 13:38-0400 Body mass index (BMI) [Ratio] 16.12 kg/m2 Alexey Furlong DO Work Phone: [employer] [facility] 02-04-2024 13:38-0400 Body temperature 97.81 [degF] Alexey Furlong DO Work Phone: [facility] 02-04-2024 13:38-0400 Body weight 41.28 kg Alexey Furlong DO Work Phone: [facility] 02-04-2024 13:38-0400 Diastolic blood pressure 65 mm[Hg] Alexey Furlong DO Work Phone: [facility] 02-04-2024 13:38-0400 Heart rate 58 /min Alexey Furlong DO Work Phone: [facility] 02-04-2024 13:38-0400 Respiratory rate 17 /min Alexey Furlong DO Work Phone: [facility] 02-04-2024 13:38-0400 SaO2% (BldA) [Mass fraction] 95 % Alexey Furlong DO Work Phone: [facility] 02-04-2024 13:38-0400 Systolic blood pressure 120 mm[Hg] Alexey Furlong DO Work Phone: [facility] 01-28-2024 17:36-0400 Diastolic blood pressure 63 mm[Hg] Alexey Furlong DO Work Phone: [facility] 01-28-2024 17:36-0400 Heart rate 78 /min Alexey Furlong DO Work Phone: [facility] 01-28-2024 17:36-0400 Systolic blood pressure 119 mm[Hg] Alexey Furlong DO Work Phone: [facility] 01-22-2024 15:03-0400 Body mass index (BMI) [Ratio] 15.69 kg/m2 Alexey Furlong DO Work Phone: [facility] 01-22-2024 15:03-0400 Body temperature 98.01 [degF] Alexey Furlong DO Work Phone: [facility] 01-22-2024 15:03-0400 Body weight 40.19 kg Alexey Furlong DO Work Phone: [facility] 01-22-2024 15:03-0400 Diastolic blood pressure 73 mm[Hg] Alexey Furlong DO Work Phone: [facility] 01-22-2024 15:03-0400 Heart rate 61 /min Alexey Furlong DO Work Phone: [facility] 01-22-2024 15:03-0400 Respiratory rate 17 /min Alexey Furlong DO Work Phone: [facility] 01-22-2024 15:03-0400 SaO2% (BldA) [Mass fraction] 95 % Alexey Furlong DO Work Phone: [facility] 01-22-2024 15:03-0400 Systolic blood pressure 123 mm[Hg] Alexey Furlong DO Work Phone: [facility] 01-17-2024 21:38-0400 Body temperature 97.9 [degF] Alexey Furlong DO Work Phone: [facility] 01-17-2024 21:38-0400 Diastolic blood pressure 77 mm[Hg] Alexey Furlong DO Work Phone: [facility] 01-17-2024 21:38-0400 Heart rate 65 /min Alexey Furlong DO Work Phone: [facility] 01-17-2024 21:38-0400 Respiratory rate 18 /min Alexey Furlong DO Work Phone: [facility] 01-17-2024 21:38-0400 SaO2% (BldA) [Mass fraction] 96 % Alexey Furlong DO Work Phone: [facility] 01-17-2024 21:38-0400 Systolic blood pressure 122 mm[Hg] Alexey Furlong DO Work Phone: [facility] 01-07-2024 22:50-0400 Body temperature 97.81 [degF] Alexey Furlong DO Work Phone: [facility] 01-07-2024 22:50-0400 Diastolic blood pressure 68 mm[Hg] Alexey [facility]long DO [facility] 01-07-2024 22:50-0400 Heart rate 58 /min Alexey Bradfordng DO [facility] Phone: [facility] 01-07-2024 22:50-0400 Respiratory rate 18 /min Alexey Bradfordng DO Work Phone: [facility] 01-07-2024 22:50-0400 SaO2% (BldA) [Mass fraction] 96 % Alexey Bradfordng DO Work Phone: [facility] 01-07-2024 22:50-0400 Systolic blood pressure 109 mm[Hg] Alexey Bradfordng DO Work Phone: [facility] 11-12-2023 10:53-0400 Body mass index (BMI) [Ratio] 16.83 kg/m2 Tai Hinojosa MD Work Phone: [facility] 11-12-2023 10:53-0400 Body weight 43.09 kg Tai Hinojosa MD Work Phone: [facility] 11-12-2023 10:53-0400 Diastolic blood pressure 80 mm[Hg] Tai Hinojosa MD Work Phone: [facility] 11-12-2023 10:53-0400 Heart rate 72 /min Tai Hinojosa MD Work Phone: [facility] 11-12-2023 10:53-0400 SaO2% (BldA) [Mass fraction] 93 % Tai Hinojosa MD Work Phone: [facility] 11-12-2023 10:53-0400 Systolic blood pressure 136 mm[Hg] Tai Hinojosa MD Work Phone: [facility] 07-13-2023 20:20-0400 Body mass index (BMI) [Ratio] 16.65 kg/m2 Alexey Bradfordng DO Work Phone: [facility] 07-13-2023 20:20-0400 Body weight 42.64 kg Alexey Furlong DO Work Phone: [facility] 07-13-2023 20:20-0400 Diastolic blood pressure 62 mm[Hg] Alexey Furlong DO Work Phone: [facility] 07-13-2023 20:20-0400 Systolic blood pressure 122 mm[Hg] Alexey Furlong DO Work Phone: [facility] 06-12-2023 18:10-0500 Body mass index (BMI) [Ratio] 16.93 kg/m2 Alexey Furlong DO Work Phone: [facility] 06-12-2023 18:10-0500 Body temperature 97.9 [degF] Alexey Furlong DO Work Phone: [facility] 06-12-2023 18:10-0500 Body weight 43.36 kg Alexey Furlong DO Work Phone: [facility] 06-12-2023 18:10-0500 Diastolic blood pressure 84 mm[Hg] Alexey Furlong DO Work Phone: [facility] 06-12-2023 18:10-0500 Heart rate 96 /min Alexey Furlong DO Work Phone: [facility] 06-12-2023 18:10-0500 Respiratory rate 18 /min Alexey Furlong DO Work Phone: [facility] 06-12-2023 18:10-0500 SaO2% (BldA) [Mass fraction] 95 % Alexey Furlong DO Work Phone: [facility] 06-12-2023 18:10-0500 Systolic blood pressure 166 mm[Hg] Alexey Furlong DO Work Phone: [facility] 05-14-2023 12:12-0500 Body mass index (BMI) [Ratio] 16.97 kg/m2 Alexey Furlong DO Work Phone: [facility] 05-14-2023 12:12-0500 Body temperature 99.61 [degF] Alexey Furlong DO Work Phone: [facility] 05-14-2023 12:12-0500 Body weight 43.45 kg Alexey Furlong DO Work Phone: [facility] 05-14-2023 12:12-0500 Diastolic blood pressure 77 mm[Hg] Alexey Furlong DO Work Phone: [facility] 05-14-2023 12:12-0500 Heart rate 82 /min Alexey Furlong DO Work Phone: [facility] 05-14-2023 12:12-0500 Respiratory rate 18 /min Alexey Furlong DO Work Phone: [facility] 05-14-2023 12:12-0500 SaO2% (BldA) [Mass fraction] 95 % Alexey Furlong DO Work Phone: [facility] 05-14-2023 12:12-0500 Systolic blood pressure 129 mm[Hg] Alexey Furlong DO Work Phone: [facility] 04-14-2023 22:23-0500 Body mass index (BMI) [Ratio] 17.47 kg/m2 Alexey Furlong DO Work Phone: [facility] 04-14-2023 22:23-0500 Body temperature 97.9 [degF] Alexey Furlong DO Work Phone: [facility] 04-14-2023 22:23-0500 Body weight 44.73 kg Alexey Furlong DO Work Phone: [facility] 04-14-2023 22:23-0500 Diastolic blood pressure 64 mm[Hg] Alexey Furlong DO Work Phone: [facility] 12-31-2023 22:23-0500 Systolic blood pressure 132 mm[Hg] Alexey Polo DO Work Phone: [employer] [facility] 01-29-2022 12:15-0400 Body height 161.29 cm Stevenson Corbin Other [facility] [employer] Other 01-02-2022 08:47-0400 Body weight 49.9 kg Tai Hinojosa MD Work Phone: [facility] 01-02-2022 08:47-0400 Diastolic blood pressure 77 mm[Hg] Tai Hinojosa MD Work Phone: [facility] 01-02-2022 08:47-0400 Heart rate 68 /min Tai Hinojosa MD Work Phone: [facility] 01-02-2022 08:47-0400 SaO2% (BldA) [Mass fraction] 96 % Tai Hinojosa MD Work Phone: [facility] 01-02-2022 08:47-0400 Systolic blood pressure 128 mm[Hg] Tai Hinojosa MD Work Phone: [facility] 12-06-2021 15:00-0400 Body height 161.29 cm Sena Jabier Other [employer] Other 12-06-2021 15:00-0400 Body temperature 98 [degF] Sena Jabier Other [employer] Other 12-06-2021 15:00-0400 Diastolic blood pressure 85 mm[Hg] Sena Jabier Other [employer] Other 12-06-2021 15:00-0400 Respiratory rate 18 /min Sena Jabier Other [employer] Other 12-06-2021 15:00-0400 SaO2% (BldA) [Mass fraction] 96 % Sena Jabier Other [facility] [employer] Other 12-06-2021 15:00-0400 Systolic blood pressure 157 mm[Hg] Sena Jabier Other [facility] [employer] Other 10-18-2021 12:35-0400 Diastolic blood pressure 58 mm[Hg] MD Stevenson Corbin Work Phone: [facility] 10-18-2021 12:35-0400 Heart rate 64 /min MD Stevenson Corbin Work Phone: [facility] 10-18-2021 12:35-0400 Respiratory rate 16 /min MD Stevenson Corbin Work Phone: [facility] 10-18-2021 12:35-0400 SaO2% (BldA) [Mass fraction] 95 % MD Stevenson Corbin Work Phone: [facility] 10-18-2021 12:35-0400 Systolic blood pressure 146 mm[Hg] MD Stevenson Corbin Work Phone: [facility] 10-18-2021 12:19-0400 Body height 160.02 cm MD Stevenson Corbin Work Phone: [facility] 10-18-2021 12:19-0400 Body mass index (BMI) [Ratio] 18.1 kg/m2 MD Stevenson Corbin Work Phone: [facility] 10-18-2021 12:19-0400 Body weight 46.6 kg MD Stevenson Corbin Work Phone: [facility] 10-18-2021 11:35-0400 Inhaled oxygen flow rate 2 L/min MD Stevenson Corbin Work Phone: [facility] 10-18-2021 10:53-0400 Body temperature 97.1 [degF] MD Stevenson Corbin Work Phone: [facility] 09-25-2021 14:35-0400 Diastolic blood pressure 78 mm[Hg] Alexey G Furlong Work Phone: [facility] DO Work Phone: 09-25-2021 14:35-0400 Systolic blood pressure 162 mm[Hg] Alexey G Furlong Work Phone: [facility] DO Work Phone: 09-25-2021 14:32-0400 Body height 160.02 cm Alexey G Furlong Work Phone: [facility] DO Work Phone: 09-25-2021 14:32-0400 Body mass index (BMI) [Ratio] 18.42 kg/m2 Alexey G Furlong Work Phone: [facility] DO Work Phone: 09-25-2021 14:32-0400 Body surface area Derived from formula 1.46 m2 Alexey G Furlong Work Phone: [facility] DO Work Phone: 09-25-2021 14:32-0400 Body weight 47.17 kg Alexey G Furlong Work Phone: [facility] DO Work Phone: 09-25-2021 14:32-0400 Diastolic blood pressure 90 mm[Hg] Alexey G Furlong Work Phone: [facility] DO Work Phone: 09-25-2021 14:32-0400 Heart rate 83 /min Alexey G Furlong Work Phone: [facility] DO Work Phone: 09-25-2021 14:32-0400 Systolic blood pressure 168 mm[Hg] Alexey G Furlong Work Phone: [facility] DO Work Phone: 09-13-2021 12:08-0400 Body height 160.02 cm MD Stevenson Corbin Work Phone: [facility] 09-13-2021 12:08-0400 Body mass index (BMI) [Ratio] 18.6 kg/m2 MD Stevenson Corbin Work Phone: [facility] 09-13-2021 12:08-0400 Body weight 47.8 kg MD Stevenson Corbin Work Phone: [facility] 05-30-2021 09:45-0500 Body height 161.29 cm Stevenson Corbin Other [facility] [employer] Other 05-30-2021 09:45-0500 Body mass index (BMI) [Ratio] 16.39 kg/m2 Stevenson Fordxa Other [facility] [employer] Other 05-30-2021 09:45-0500 Body weight 42.64 kg Stevenson Olexa Other [facility] [employer] Other 03-22-2021 14:00-0500 Body height 161.29 cm Radha Bosch Other [facility] [employer] Other 03-22-2021 14:00-0500 Body mass index (BMI) [Ratio] 16.56 kg/m2 Radha Bosch Other [facility] [employer] Other 03-22-2021 14:00-0500 Body temperature 98.2 [degF] Radha Bosch Other [employer] Other 03-22-2021 14:00-0500 Body weight 43.09 kg Radha Bosch Other [facility] [employer] Other 03-22-2021 14:00-0500 Diastolic blood pressure 60 mm[Hg] Radha Bosch Other [employer] Other 03-22-2021 14:00-0500 Respiratory rate 18 /min Radha Bosch Other [employer] Other 03-22-2021 14:00-0500 SaO2% (BldA) [Mass fraction] 96 % Radha Bosch Other [employer] Other 03-22-2021 14:00-0500 Systolic blood pressure 140 mm[Hg] Radha Bosch Other [employer] Other Encounters Encounter Date Encounter Type Care Provider Facility Start: 05-06-2024 End: 05-06-2024 [employer] Dionicio Trevizo MD Work Phone: [facility] Start: 05-06-2024 End: 05-06-2024 [employer] Dionicio Trevizo MD Work Phone: [facility] Start: 05-06-2024 End: 05-06-2024 Office outpatient visit 25 minutes Dionicio Trevizo MD Work Phone: [facility] Comment on above: Acquired hypothyroid ism ([facility]) (Primary Dx); Movement disorder Start: 04-17-2024 End: 04-17-2024 Continuing Care Alexey Polo DO Work Phone: [facility] Comment on above: Primary hypertension (Primary Dx); SIADH (syndrome of inappropriate ADH production) ([facility]); Sleep disorder breathing Start: 04-01-2024 End: 04-06-2024 Continuing Care Alexey Polo DO Work Phone: [facility] Comment on above: Aftercare following right shoulder joint replacement surgery (Primary Dx); Witnessed apneic spells; Movement disorder Start: 03-31-2024 End: 03-31-2024 ambulatory Nickolas [employer]ice [employer] Facility:[facility] Start: 03-17-2024 End: 04-06-2024 Continuing Care Alexey Polo DO Work Phone: [facility] Comment on above: Aftercare following right shoulder joint replacement surgery (Primary Dx); Multifactorial gait disorder; Movement disorder Start: 03-15-2024 End: 03-15-2024 ambulatory Alexey Polo DO Work Phone: [facility] Start: 03-10-2024 End: 03-15-2024 Admission to same day surgery center Alexey Polo DO Work Phone: [facility] Comment on above: Localized osteoarthr itis of right shoulder (Primary Dx); Aftercare following right shoulder joint replacement surgery; S/P reverse total shoulder arthroplasty, right; Primary hypertension Start: 03-10-2024 End: 03-15-2024 ambulatory Alexey Polo DO Work Phone: [facility] Start: 02-25-2024 End: 02-25-2024 Admission to same day surgery center Alexey Polo DO Work Phone: [facility] Comment on above: Aftercare following right shoulder joint replacement surgery (Primary Dx); Localized osteoarthritis of right shoulder; SIADH (syndrome of inappropriate ADH production) ([facility]); Primary hypertension Start: 02-25-2024 End: 02-25-2024 ambulatory Alexey Polo DO Work Phone: [facility] Start: 02-24-2024 End: 02-24-2024 ambulatory Alexey Polo DO Work Phone: [facility] Work Phone: Start: 02-24-2024 End: 02-24-2024 Patient encounter procedure Alexey Polo DO Work Phone: [facility] Work Phone: Start: 02-24-2024 End: 02-24-2024 Patient encounter procedure Alexey Furlong DO Work Phone: [facility] Start: 02-24-2024 End: 02-24-2024 ambulatory Alexey Furlong DO Work Phone: [facility] Work Phone: Start: 02-21-2024 End: 03-08-2024 ambulatory Alexey G Furlong DO Work Phone: [facility] Comment on above: Localized osteoarthr itis of right shoulder (Primary Dx); S/P reverse total shoulder arthroplasty, right Start: 02-12-2024 Non-patient / Non-visit DO Den nis Furlong Work Phone: [facility] Work Phone: Start: 02-12-2024 End: 02-13-2024 Admission to same day surgery center DO Alexey Furlong Work Phone: [facility] [place] Start: 02-12-2024 End: 02-13-2024 ambulatory DO Alexey Furlong Work Phone: [facility] Work Phone: Start: 02-04-2024 End: 02-04-2024 ambulatory Alexey G Furlong DO Work Phone: [facility] Comment on above: SIADH (syndrome of i nappropriate ADH production) ([facility]) (Primary Dx); Localized osteoarthritis of right shoulder; Primary hypertension Start: 01-29-2024 End: 01-29-2024 Patient encounter procedure DO Alexey Furlong Work Phone: [facility] [place] Work Phone: Start: 01-29-2024 End: 01-29-2024 ambulatory DO Alexey Furlong Work Phone: [facility] Work Phone: Start: 01-29-2024 End: 01-29-2024 Patient encounter procedure DO Alexey Bglong Work Phone: [facility] Work Phone: Start: 01-29-2024 End: 01-29-2024 ambulatory DO Alexey Furlong Work Phone: [facility] Work Phone: Start: 01-29-2024 Encounter for preprocedural laboratory examination Nickolas [facility] Start: 01-28-2024 End: 01-28-2024 Continuing Care Alexey Bradfordng DO Work Phone: [facility] Comment on above: Aftercare following left hip joint replacement surgery (Primary Dx); Multifactorial gait disorder; S/P reverse total shoulder arthroplasty, right; Movement disorder; SIADH (syndrome of inappropriate ADH production) ([facility]) Start: 01-23-2024 End: 01-23-2024 ambulatory DO Alexey Bglong Work Phone: [facility] Work Phone: Start: 01-23-2024 End: 01-23-2024 Patient encounter procedure DO Alexeyconcepción Pedersonlong Work Phone: [facility] Work Phone: Start: 01-22-2024 End: 01-22-2024 Continuing Care Alexey G Furlong DO Work Phone: [facility] Comment on above: Aftercare following left hip joint replacement surgery (Primary Dx); Multifactorial gait disorder; Primary osteoarthritis of left hip; Primary hypertension Start: 01-17-2024 End: 01-20-2024 ambulatory [facility] Comment on above: Primary osteoarthrit is of left hip (Primary Dx); Aftercare following left hip joint replacement surgery; Primary hypertension; SIADH (syndrome of inappropriate ADH production) ([facility] Multifactorial gait disorder Start: 01-16-2024 End: 01-16-2024 ambulatory [facility] [facility] Start: 01-07-2024 End: 01-19-2024 Continuing Care Alexey Polo DO Work Phone: [facility] Comment on above: Aftercare following left hip joint replacement surgery (Primary Dx); Multifactorial gait disorder; Hypo-osmolality and hyponatremia; Hypocalcemia; Hypokalemia; SIADH (syndrome of inappropriate ADH production) [place] Start: 12-26-2023 ambulatory [facility] Start: 12-24-2023 Non-patient / Non-visit DO Jose Polo Work Phone: [facility] Work Phone: Start: 12-07-2023 Evaluation and manag ement of inpatient [facility] Start: 12-06-2023 Evaluation and manag ement of inpatient [facility] Start: 12-06-2023 End: 12-10-2023 Evaluation and management of inpatient [facility] Start: 11-28-2023 Encounter for preprocedural laboratory examination [facility] Start: 11-28-2023 End: 11-28-2023 ambulatory [facility] Start: 11-28-2023 ambulatory [facility] Start: 11-12-2023 End: 11-12-2023 ambulatory TAI HINOJOSA Facility:[facility] Start: 11-12-2023 End: 11-12-2023 Patient encounter procedure Tai Hinojosa MD Work Phone: Neurology Comment on above: Lingual facial bucca l dyskinesia (Primary Dx); Dyskinesia, tardive Start: 11-04-2023 End: 11-04-2023 ambulatory [facility] Start: 11-04-2023 End: 11-04-2023 Encounter for other preprocedural examination [facility] Start: 09-18-2023 Encounter for other preprocedural examination [facility] Start: 09-18-2023 End: 09-18-2023 ambulatory [facility] Start: 08-26-2023 End: 08-27-2023 ambulatory ALEXEY Garcia [facility] Start: 08-26-2023 End: 08-26-2023 ambulatory ALEXEY Garcia [facility] Start: 08-26-2023 Encounter for preprocedural cardiovascular examination [facility] Start: 07-12-2023 ambulatory Alexey gtz DO Work Phone: [facility] Comment on above: Primary osteoarthrit is of left hip (Primary Dx); Primary hypertension Start: 07-04-2023 ambulatory [facility] Start: 06-28-2023 ambulatory Satya Liao RN [facility] Comment on above: MARVIN VINES RN ( Medication Adherence review per request of payer) Start: 06-12-2023 ambulatory Alexey gtz DO Work Phone: [facility] Comment on above: Primary osteoarthrit is of left hip (Primary Dx); Tardive dyskinesia; Primary hypertension Start: 05-21-2023 End: 05-21-2023 ambulatory [facility] Start: 05-21-2023 End: 05-21-2023 ambulatory [facility] Start: 05-14-2023 End: 05-14-2023 Continuing Care Alexey Polo DO Work Phone: [facility] Comment on above: Iron deficiency anem ia, unspecified iron deficiency anemia type (Primary Dx); S/P reverse total shoulder arthroplasty, right; Multifactorial gait disorder; Osteoarthritis of left hip, unspecified osteoarthritis type Start: 04-11-2023 Continuing Care Alexey gtz DO Work Phone: [facility] Comment on above: Primary osteoarthrit is of left hip (Primary Dx); Hyposmolality syndrome; Movement disorder Start: 04-04-2023 ambulatory ERNESTO KAN [facility] Start: 03-04-2023 End: 03-04-2023 ambulatory HERVE STARKEY [facility] Start: 01-08-2023 End: 01-08-2023 ambulatory ESTEBAN GARZA Facility:[facility] Start: 06-18-2022 Office outpatient vi sit 15 minutes Stevenson Corbin [facility] Start: 06-18-2022 End: 06-18-2022 ambulatory DO Alexey Polo Work Phone: [facility] Work Phone: Start: 06-18-2022 End: 06-18-2022 Patient encounter procedure DO Alexeyconcepción Pedersonleeann Work Phone: [facility] [facility] Start: 06-04-2022 End: 06-04-2022 ambulatory LENA HAMEED . Facility:[facility] Start: 04-19-2022 End: 04-19-[address] EVA POOLE . Facility:[facility] Start: 03-23-2022 End: 03-23-[address] ERICK BERG . Facility:[facility] Start: 02-23-2022 End: 02-24-[address] ALEXEY POLO Facility:[facility] Start: 01-29-2022 End: 01-29-2022 ambulatory Stevenson Corbin Other [employer] Other Start: 01-29-2022 Office outpatient vi sit 15 minutes Stevenson Corbin [facility] Start: 01-27-2022 End: 01-28-[address] EMMA GO Facility:[facility] Start: 01-02-2022 End: 01-02-2022 Patient encounter procedure Tai Hinojosa MD Work Phone: Neurology Comment on above: Lingual facial bucca l dyskinesia (Primary Dx); Dyskinesia, tardive; Dyskinesia, orofacial; Excessive physiologic tremor Start: 12-27-2021 End: 12-27-[address] ALEXEY POLO Facility: Start: 12-06-2021 End: 12-06-2021 ambulatory Sena Jabier Other [employer] Other Start: 12-06-2021 Office outpatient vi sit 15 minutes Sena Jabier [facility] Start: 12-04-2021 End: 12-04-2021 ambulatory Stevenson Olexa Other [employer] Other Start: 12-04-2021 Postop follow up vis it related to original px Stevenson Olexa [facility] Start: 12-04-2021 End: 12-04-2021 Patient encounter procedure MD Stevenson Corbin Work Phone: [facility] Start: 11-01-2021 End: 11-01-2021 ambulatory Stevenson Olexa Other [employer] Other Start: 11-01-2021 Telephone encounter Stevenson Olexa [facility] Start: 10-26-2021 End: 10-26-2021 ambulatory Stevenson Olexa Other [employer] Other Start: 10-26-2021 Postop follow up vis it related to original px Stevenson Olexa [facility] Start: 10-26-2021 End: 10-26-2021 Patient encounter procedure MD Stevenson Corbin Work Phone: [facility] Start: 10-18-2021 End: 10-18-2021 Admission to same day surgery center MD Stevenson Corbin Work Phone: [facility] [place] Start: 10-17-2021 End: 10-17-2021 ambulatory Stevenson Corbin Other [employer] Other Start: 10-17-2021 Telephone encounter Stevenson Corbin [facility] Start: 10-13-2021 End: 10-13-2021 Patient encounter procedure MD Stevenson Corbin Work Phone: [facility] Start: 10-09-2021 End: 10-09-2021 Patient encounter procedure MD Stevenson Corbin Work Phone: [facility] Start: 09-25-2021 Office consultation new/estab patient 60 min Alexey Polo Work Phone: [facility] [facility] DO Work Phone: Start: 09-20-2021 End: 09-20-2021 Departed Referred MD Stevenson Corbin Work Phone: [facility] [place] Start: 09-18-2021 End: 09-18-2021 ambulatory Stevenson Corbin Other [employer] Other Start: 09-18-2021 Telephone encounter Stevenson Corbin [facility] Start: 09-18-2021 End: 09-18-2021 Patient encounter procedure MD Stevenson Corbin Work Phone: [facility] Start: 08-22-2021 End: 08-22-[address] ALEXEY POLO Facility:[facility] Start: 07-12-2021 Telephone encounter Tai johnson MD Work Phone: Neurology Comment on above: Insurance Authorizat ion Start: 06-29-2021 End: 06-30-[address] ALEXEY POLO Facility:[facility] Start: 05-30-2021 End: 05-30-2021 ambulatory Stevenson Corbin Other [employer] Other Start: 05-30-2021 Office outpatient ne w 30 minutes Stevenson Corbin [facility] Start: 03-22-2021 End: 03-22-2021 ambulatory Radha Bosch Other [facility] [employer] Other Start: 03-22-2021 Office outpatient vi sit 15 minutes Radha Bosch [facility] Start: 06-16-2020 End: 06-17-2020 ambulatory HERVE JAKY Facility:[facility] Patient encounter status Alexey Bradfordng Work Phone: -[facility] [facility] DO Work Phone: Procedures Date Procedure Procedure Detail Performing Clinician Start: 02-24-2024 Plain X-ray of right shoulder Alexey Furlong DO Work Phone: Start: 02-12-2024 Plain X-ray of left shoulder DO Alexey Furlong Work Phone: Start: 02-12-2024 Aerobic microbial culture Alexey Furlong DO Work Phone: Start: 02-12-2024 Anaerobic microbial culture Alexey Furlong DO Work Phone: Start: 02-12-2024 Gram stain microscopy D uyen Pedersonlong DO Work Phone: Start: 02-12-2024 Investigation of transfusion reaction DO Alexey Furlong Work Phone: Start: 02-12-2024 OR Total Shoulder Re verse & Anatomic (Right) DO Alexey Furlong Work Phone: Start: 02-12-2024 Antibody screen Nickolas leonard Comment on above: Result Comment: PERF ORMED BY: [facility] [address] [place] [address] PATHOLOGIST [employer] OPERATOR TAYA CRESPO M.D. Start: 01-29-2024 CT of right shoulder DO Alexey Furlong Work Phone: Start: 01-29-2024 Methicillin resistan t Staphylococcus aureus culture DO Alexey CarFinlong Work Phone: Start: 01-23-2024 Plain X-ray of right shoulder DO Alexey Polo Work Phone: Start: 06-18-2022 Plain X-ray of right shoulder [...] Td Vaccines (3 - Td or Tdap) [facility] Start: 12-28-2030 Urine microalbumin profile DTaP,Tdap,Td Vaccine (3 - Td or Tdap) [facility] Start: 05-19-2025 Diabetes Screening Diabetes Screening [facility] Start: 04-01-2025 Adult BMI Screening Adult BMI Screening [facility] Start: 03-10-2025 Adult BMI Screening Adult BMI Screening [facility] Start: 02-03-2025 Adult BMI Screening Adult BMI Screening [facility] Start: 01-21-2025 Adult BMI Screening Adult BMI Screening [facility] Start: 01-11-2025 Adult BMI Screening Adult BMI Screening [facility] Start: 09-26-2024 Tobacco Screening Tobacco Screening [facility] Start: 06-12-2024 Adult BMI Screening Adult BMI Screening [facility] Start: 05-15-2024 End: 05-15-2024 Patient encounter procedure 05/15/2024 11:30 AM EST Office Visit Neurology [address] [place] [address] Tai Hinojosa MD [address] [place], [place] [id number] Return in about 6 months (around 05/14/2024). Neurology Comment on above: Return in about 6 months (around 05/14/19). Start: 05-14-2024 Adult BMI Screening Adult BMI Screening [facility] Start: 05-06-2024 End: 05-06-2025 Thyrotropin [Units/volume] in Serum or Plasma TSH Lab Routine Acquired hypothyroidism (CMS/HCC) Expected: 05/06/2024 (Approximate), Expires: 05/06/2025 [facility] Comment on above: Expected: 05/06/2024 (Approximate), Expi res: 05/06/2025 Start: 05-06-2024 End: 05-06-2025 Thyroxine (T4) free [Mass/volume] in Serum or Plasma T4, free Lab Routine Acquired hypothyroidism (CMS/HCC) Expected: 05/06/2024 (Approximate), Expires: 05/06/2025 [facility] Comment on above: Expected: 05/06/2024 (Approximate), Expi res: 05/06/2025 Start: 05-06-2024 End: 05-06-2025 Triiodothyronine (T3) Free [Mass/volume] in Serum or Plasma T3, free Lab Routine Acquired hypothyroidism (CMS/HCC) Expected: 05/06/2024 (Approximate), Expires: 05/06/2025 [facility] Work Phone: Comment on above: Expected: 05/06/2024 (Approximate), Expi res: 05/06/2025 Start: 05-06-2024 End: 05-06-2024 Patient encounter procedure 05/06/2024 11:10 AM EST Office Visit [facility] [address] [place] [address] Dionicio Trevizo MD [address] [place] [address] Arrived [facility] Comment on above: Arrived Start: 04-14-2024 Adult BMI Screening Adult BMI Screening [facility] Start: 03-12-2024 Adult BMI Screening Adult BMI Screening [facility] Start: 03-12-2024 Tobacco Screening Tobacco Screening [facility] Start: 02-24-2024 Plain X-ray of right shoulder XR shoulder RT min 2V* [facility] Start: 02-24-2024 XR Shoulder - right Views [facility] Start: 02-13-2024 [facility] Start: 02-13-2024 Administration of prophylactic treatment [facility] Start: 02-12-2024 Hospital admission [facility] Start: 02-12-2024 Microbial culture, body fluid [facility] Start: 01-29-2024 MRSA Culture MRSA Culture [facility] Start: 01-23-2024 Plain X-ray of right shoulder XR shoulder RT min 2V* [facility] Start: 01-23-2024 XR Shoulder - right Views [facility] Start: 12-26-2023 Pneumococcal Vaccine: 65+ (3 of 3 - PPSV23 or PCV20) Pneumococcal Vaccine: 65+ (3 of 3 - PPSV23 or PCV20) [facility] Start: 12-26-2023 Pneumococcal Vaccine: 65+ Years (3 of 3 - PPSV23 or PCV20) Pneumococcal Vaccine: 65+ Years (3 of 3 - PPSV23 or PCV20) [facility] Start: 12-15-2023 COVID-19 Vaccine ( season) COVID-19 Vaccine ( season) [facility] Start: 12-15-2023 COVID-19 Vaccine ( season) COVID-19 Vaccine ( season) [facility] Start: 12-15-[address] [facility] Start: 04-15-2023 Advance Directive Discussion Advance Directive Discussion [facility] Start: 04-15-2023 Depression Assessment Depression Assessment [facility] Start: 12-14-2022 Covid-19 Vaccine ( season) Covid-19 Vaccine ( season) [facility] Start: 12-14-2022 COVID-19 Vaccine ( season) COVID-19 Vaccine ( season) [facility] Start: 12-14-2022 Covid-19 Vaccine ( season) Covid-19 Vaccine ( season) [facility] Start: 12-14-2022 Influenza vaccination [facility] Start: 12-14-2021 Influenza vaccination INFLUENZA (#1) [facility] Start: 12-04-2021 Plain X-ray of right shoulder XR shoulder RT min 2V* [facility] Start: 12-04-2021 End: 12-04-2021 Patient encounter procedure Departed Clinical [facility] Start: 10-18-2021 End: 10-18-2021 [facility] Work Phone: Start: 09-20-2021 Prosthetic total arthroplasty of right shoulder OR Shoulder Arthroplasty-Total (Right) [facility] Start: 08-08-2021 Adult depression screening assessment DEPRESSION SCREENING [facility] Start: 04-15-2021 ADVANCE DIRECTIVE DISCUSSION ADVANCE DIRECTIVE DISCUSSION [facility] Start: 2020 BONE DENSITY BONE DENSITY [facility] Start: 2020 Fall Risk Screening Fall Risk Screening [facility] Start: 2020 PNEUMOCOCCAL: 65+ (1 - PCV) PNEUMOCOCCAL: 65+ (1 - PCV) [facility] Start: 2020 Screening for osteoporosis Bone Density Screening [facility] Start: 2015 RSV Vaccine (1 - 1-dose 60+ series) RSV Vaccine (1 - 1-dose 60+ series) [facility] Start: 2005 SHINGRIX VACCINE (1 of 2) SHINGRIX VACCINE (1 of 2) [facility] Start: 2000 COLOGUARD (FIT-DNA) COLOGUARD (FIT-DNA) [facility] Start: [address] [facility] Start: 2000 COLORECTAL CANCER SCREENING COLORECTAL CANCER SCREENING [facility] Start: [address] [facility] Start: 2000 DIABETES SCREEN DIABETES SCREEN [facility] Start: 2000 FECAL OCCULT BLOOD FECAL OCCULT BLOOD [facility] Start: 2000 Lipid panel Lipid Screening [facility] Start: 2000 [address] SCREEN LIPID SCREEN [facility] Start: 2000 Screening for malignant neoplasm of colon [facility] Start: [address] [facility] Start: [address] [facility] Start: 1995 Screening for malignant neoplasm of breast [facility] Start: 1974 Urine microalbumin profile DTAP,TDAP,TD (1 - Tdap) [facility] Start: 1973 Adult BMI Follow Up Plan Adult BMI Follow Up Plan [facility] Start: 1973 Anxiety Screening Anxiety Screening [facility] Start: 1973 Depression Screening Depression Screening [facility] Start: 1973 HEPATITIS C SCREENING HEPATITIS C SCREENING [facility] Start: 1973 Hepatitis C screening Hepatitis C Screening [facility] Start: 1967 Depression Screening Depression Screening [facility] Start: 1955 COVID-19 VACCINE (#1) COVID-19 VACCINE (#1) [facility] Start: 1955 Medicare Annual Wellness (AWV) Medicare Annual Wellness (AWV) [facility] Start: 1955 Medicare Annual Wellness Visit Medicare Annual Wellness Visit [facility] Start: 1955 Screening for malignant neoplasm of colon [facility] CT Shoulder - right WO contrast [facility] Methicillin resistan t Staphylococcus aureus [Presence] in Unspecified specimen by Organism specific culture [facility] Patient Education Know your Meds [facility] Work Phone: [facility] Immunizations Immunization Date Immunization Notes Care Provider Venkat askew 09-27-2022 Covid-19, Mrna, Lnp- s, Bivalent, Pf, 30mcg/0.3 ml Alexey Polo DO Work Phone: [facility] 11-29-2021 COVID-19, mRNA, LNP- S, PF, 100mcg/0.5mL Dose Alexey Polo DO Work Phone: [facility] 03-26-2021 Pfizer-BioNTech COVID-19 Vacc 30 MCG/0.3ML Intramuscular Suspension Alexey Polo Work Phone: [facility] 01-10-2021 Fluzone High-Dose Quadrivalent 0.7 ML Intramuscular Suspension Prefilled Syringe Alexey Polo Work Phone: [facility] 01-10-2021 influenza virus vaccine, unspecified formulation Alexey Polo DO Work Phone: [facility] 12-28-2020 diphtheria, tetanus toxoids and pertussis vaccine Alexey Polo Work Phone: [facility] 07-14-2020 Pfizer-BioNTech COVID-19 Vacc 30 MCG/0.3ML Intramuscular Suspension Alexey Polo Work Phone: [facility] 06-28-2020 tetanus toxoid, redu anne diphtheria toxoid, and acellular pertussis vaccine, adsorbed Alexey Polo Work Phone: [facility] 06-23-2020 Pfizer-BioNTech COVID-19 Vacc 30 MCG/0.3ML Intramuscular Suspension Alexey Polo Work Phone: [facility] 04-11-2020 zoster vaccine recombinant Satya Liao RN [facility] 12-19-2019 influenza, injectabl e, quadrivalent, preservative free Alexey Polo Work Phone: [facility] 12-15-2019 influenza, seasonal, injectable Alexey Polo DO Work Phone: [facility] 10-28-2019 zoster vaccine recombinant Alexey Polo Work Phone: [facility] 02-25-2019 zoster vaccine recombinant Alexey Polo Work Phone: [facility] 12-25-2018 influenza, injectabl e, quadrivalent, preservative free Alexey G Furlong Work Phone: [facility] 12-25-2018 pneumococcal conjuga te vaccine, 13 valent Alexey G Furlong Work Phone: [facility] 12-20-2017 influenza, injectabl e, quadrivalent, preservative free Alexey G Furlong Work Phone: [facility] 12-14-2016 influenza virus vaccine, unspecified formulation Laexey Furlong DO Work Phone: [facility] 12-14-2016 influenza, injectabl e, quadrivalent, preservative free Alexey G Furlong Work Phone: [facility] 11-20-2015 influenza, seasonal, injectable, preservative free Alexey G Furlong Work Phone: [facility] DO Work Phone: 11-20-2015 pneumococcal polysaccharide vaccine, 23 valent Alexey G Furlong Work Phone: [facility] DO Work Phone: 11-20-2015 zoster vaccine, live Alexey G Furlong Work Phone: [facility] DO Work Phone: 12-31-2014 influenza, seasonal, injectable, preservative free Alexey G Furlong Work Phone: [facility] NEGATED: Highlighted row has not occurred!05-19-2022 pneumococcal polysaccharide vaccine, 23 valent Alexey Furlong DO Work Phone: [facility] Payers Date Payer Category Payer Self-pay [id number] 2023 Medicare [place] [address] [id number] 2022 Medicare [id number] 2020 Medicare [id number] 2013 Medicaid [id number] 1959 Medicaid [id number] 1959 Medicare [id number] 1955 Unknown [id number] 47 1955 Unknown [id number] 2.16.840.1.190736.3.579.2.5 1955 Unknown [id number] 2.16.840.1.707247.3.579.2.5 1955 Unknown [id number] 2.16.840.1.237829.3.579.2.5 93 1955 Unknown [id number] 2.16.840.1.930391.3.579.2.5 93 1955 Unknown [id number] 2.16.840.1.085256.3.579.2.5 93 1955 Unknown [id number] 2.16.840.1.007148.3.579.2.5 93 1955 Unknown [id number] 2.16.840.1.401972.3.579.2.5 93 1955 Unknown [id number] 2.16.840.1.124006.3.579.2.5 93 1955 Unknown [id number] 2.16.840.1.838507.3.579.2.1 286 1955 Unknown [id number] 2.16.840.1.886805.3.579.2.1 286 1955 Unknown [id number] 2.16.840.1.628242.3.579.2.1 286 1955 Unknown [id number] 2.16.840.1.548108.3.579.2.1 286 Unknown Unknown [id number] 2.16.840.1.551938.3.579.2.5 31 Unknown [id number] 2.16.840.1.958034.3.579.2.5 31 Unknown [id number] 2.16.840.1.729384.3.579.2.5 31 Unknown [id number] 2.16.840.1.177157.3.579.2.5 31 Unknown [id number] 2.16.840.1.053661.3.579.2.5 31 Unknown [id number] 2.16.840.1.043449.3.579.2.5 31 Social History Date Type Detail Facility Start: 2020 End: 02-18-2023 Daily caffeine consumption Daily caffeine consumption [facility] Comment on above: 1-2 cups of coffee d aily. Occas iced tea. Diet coke ocassional; Quit in ; Start: 2020 End: 03-12-2023 Sex Assigned At [facility] Start: 10-18-2021 End: 02-18-2023 Tobacco smoking status NDIS Ex-smoker (finding) [facility] Start: 1955 [facility]igned At [facility] Start: 04-15-1971 End: 07-21-2017 History of tobacco use Current smoker [facility] Start: 04-15-1971 End: 07-21-2017 History of tobacco use Cigarette Smoker [facility] Start: 07-21-2018 End: 02-18-2023 Tobacco use and exposure Smokeless tobacco non-user [facility] Start: 08-10-2020 End: 11-12-2023 Alcohol intake Lifetime non-drinker (finding) [facility] Start: 07-21-2018 History SDOH Alcohol Frequency 1 [facility] Start: 1955 Sex Assigned At Not on file [facility] Start: 12-23-2021 End: 01-02-2022 Exposure to SARS-CoV-2 (event) Not sure [facility] Start: 03-12-2023 End: 09-27-2023 Alcohol intake Current non-drinker of alcohol (finding) [facility] Housing Instability Unknown [facility] Start: 03-23-2022 Tobacco Comment Quit in the S, STARTED AGE 18 [facility] History of tobacco use Passive smoker [facility] How often to you hav e a drink containing alcohol? Never [facility] Work Phone: Start: 11-18-2014 End: 02-25-2024 Sex Female (finding) [facility] Medical Equipment Procedure Code Equipment Code Equipment Origin al Text Equipment Identifier Dates Arthroplasty, shoulder, total Total reverse shoulder prosthesis [id number] FDA Start: 10-18-2021 Arthroplasty, shoulder, total Total reverse shoulder prosthesis [id number] FDA Start: 10-18-2021 Arthroplasty, shoulder, total Total reverse shoulder prosthesis [id number] FDA Start: 10-18-2021 Arthroplasty, shoulder, total Total reverse shoulder prosthesis [id number] FDA Start: 10-18-2021 Arthroplasty, shoulder, total Total reverse shoulder prosthesis [id number] FDA Start: 10-18-2021 Arthroplasty, shoulder, total Total reverse shoulder prosthesis [id number] FDA Start: 10-18-2021 Arthroplasty, shoulder, total Total reverse shoulder prosthesis [id number] FDA Start: 10-18-2021 Arthroplasty, shoulder, total Total reverse shoulder prosthesis [id number] FDA Start: 10-18-2021 Arthroplasty, shoulder, total Total reverse shoulder prosthesis [id number] FDA Start: 10-18-2021 Arthroplasty, shoulder, total Total reverse shoulder prosthesis [id number] FDA Start: 10-18-2021 Mesh Pco Vntrl P tch 4.6cm Rpl [id number] - Sna - [id number] Start: 01-29-2020 Total reverse shoulder prosthesis [id number] FDA Start: 02-12-2024 Total reverse shoulder prosthesis [id number] [id number] FDA Start: 02-12-2024 Total reverse shoulder prosthesis [id number] FDA Start: 02-12-2024 Goals Date Patient Goal Desired Activity /State Personal health goal Comment on above: Formatting of this n ote might be different from the original. Evaluation of progress towards goal: will DC from ED to SNF upon arrangements Personal health goal Comment on above: Formatting of this n ote might be different from the original. Evaluation of progress towards goal: return to [facility] Functional Status Date Assessment Result Facility 02-13-2024 Functional status Patient Not at Baseline [facility] Work Phone: Mental Status Date Assessment Result Facility 02-13-2024 Cognitive function Cognitive Sta tus Patient Not at Baseline [facility] Work Phone: Clinical Notes 03-22-2021 to 05-06-2024 Dionicio Trevizo MD - 05/06/2024 11:10 AM Carito Polo, DO - 04/17/2024 3:57 PM Carito Polo, DO - 04/01/2024 11:59 PM Carito Polo, DO - 03/17/2024 11:59 PM EST Note Date & Type Note Facility 05-06-2024 History of Present illness Narrative Melanie Espinoza is a 68 y.o. female Dionicio Trevizo MD presents with chief complaint of Thyroid Problem and Follow-up HPI: Interim History: 04/2024 Follow-up visit of 05/06/2024 for hypothyroidism. on levothyroxine mcg daily, lives in [place]. Interim History: 10/2023 Follow-up visit of 10/23/2023 for hypothyroidism. on levothyroxine 100 mcg daily by ER team on PCP ?, lives in [place]. lab on 09/2023 TSH 1.85, FT4 0.93, T3 0.65 (0.8-1.8) Interim History: 09/2022. Follow-up visit of 09/28/2022 for hypothyroidism. on levothyroxine 75 mcg daily, lives in [place]. Interim History: 09/2021. Follow-up visit of 10/06/2021 for hypothyroidism. on levothyroxine 75 mcg daily, lives in [place] , no new lab Interim History: 04/2021. Follow-up visit of 04/24/2020 for hypothyroidism. T3 0.75 (0.6-1.8) free T4 0.86(0.78- 1.48), and TSH 1.356. on levothyroxine 75 mcg daily, now live in [place] Interim History: 04/2020. Follow-up visit of for hypothyroidism. free T3 at 2.77 (2.77-5.27) free T4 at 0.94(0.78-2.19),, and TSH 4.7. on levothyroxine, had recent hip fx Interim History: 09/2019. Follow-up visit of 09/29/2019 for hypothyroidism. TG antibody less than 1, TPO less than 9, free T3 at 2 (2-4.7) free T4 at 0.9, and TSH 2.07. At last visit, we cut her dose back from 100 to 75 and she feels much better after we cut the dose and she thinks her hepatitis is back to normal. Ultrasound shows right lobe 5 x 1.6 x 2.2 cm and left lobe 5.1 x 1.3 x 1.9 cm with no nodules and she is doing okay. HPI: 06/04 New patient sent from [facility] for hypothyroidism and weight loss. She is on levothyroxine 100 since almost long time and also she has movement disorder. She is always moving in the room. She cannot stand, unstable and unsteady. She is following with neurologist in [facility] for that. Lab done on June 08; TSH is overcorrected at1.35, free T4 normal 0.89 (0.78-219), and free T3 at 2.57 (2.77-5.27) SUBJECTIVE: MEDICATIONS: Current Outpatient Medications Medication Instructions alendronate (FOSAMAX) 70 mg, Weekly amantadine (SYMMETREL) 100 mg, 2 times daily amLODIPine (Norvasc) 10 MG tablet 1 tablet, Daily atorvastatin (Lipitor) 40 MG tablet 1 tablet, Every evening busPIRone (BUSPAR) 15 mg, 2 times daily calcium carbonate 600 mg, Daily RT carBAMazepine (TEGRETOL) 200 mg, 3 times daily celecoxib (CELEBREX) 100 mg, 2 times daily clonazePAM (KlonoPIN) 0.5 MG tablet 1-2 tablets, Nightly ferrous sulfate 325 mg, Daily with breakfast gabapentin (Neurontin) 300 MG capsule 1 capsule, 2 times daily levothyroxine (Synthroid) 75 MCG tablet 1 tablet, Daily before breakfast metoprolol tartrate (Lopressor) 50 MG tablet 1 tablet, 2 times daily mirtazapine (REMERON) 15 mg, Nightly nitroglycerin (Nitrostat) 0.4 MG SL tablet 1 tablet, Every 5 min PRN pantoprazole (ProtoNix) 40 MG EC tablet 1 tablet, Daily before breakfast pravastatin (Pravachol) 40 MG tablet 1 tablet, Nightly primidone (MYSOLINE) 50 mg, 2 times daily sodium chloride 1 g, Daily RT tetrabenazine (XENAZINE) 25 mg, 2 times daily valbenazine tosylate (Ingrezza) 80 MG capsule 1 capsule, Daily ALLERGIES: Allergies Allergen Reactions Erythromycin GI intolerance, Other and Unknown Azithromycin Unknown Other reaction(s): Unknow Erythromycin Base Unknown Other reaction(s): Unknown Reaction Hydrocodone-Acetaminophen GI intolerance Clarithromycin Nausea And Vomiting and GI intolerance Past Medical History: Diagnosis Date Anxiety Partha's disease (CMS/HCC) Hypothyroidism (CMS/HCC) Movement disorder Tremor Weight loss Past Surgical History: Procedure Laterality Date CT ANGIOGRAM HEART CORONARY 12/23/2020 CT ANGIOGRAM TAVR 12/23/2020 REVIEW OF SYMPTOMS: 14 POINT OF SYSTEM REVIEWED AND NEGATIVE OBJECTIVE: Visit Vitals Pulse 69 Resp 16 Ht 5' 2 BMI 17.56 kg/m BSA 1.38 m Physical Exam Constitutional: Appearance: Normal appearance. She is normal weight. HENT: Head: Normocephalic and atraumatic. Right Ear: External ear normal. Nose: Nose normal. Mouth/Throat: Pharynx: Oropharynx is clear. Eyes: Extraocular Movements: Extraocular movements intact. Pupils: Pupils are equal, round, and reactive to light. Cardiovascular: Rate and Rhythm: Normal rate and regular rhythm. Pulmonary: Effort: Pulmonary effort is normal. Abdominal: General: Abdomen is flat. Palpations: Abdomen is soft. Musculoskeletal: General: Normal range of motion. Skin: General: Skin is warm. Neurological: General: No focal deficit present. Mental Status: She is alert. Psychiatric: Mood and Affect: Mood normal. Behavior: Behavior normal. On wheelchair, thin had movement disorders ASSESSMENT AND PLAN: Assessment/Plan Diagnoses and all orders for this visit: Acquired hypothyroidism (CMS/HCC) - T3, free; Future - T4, free; Future - TSH; Future We will continue with levothyroxine 75 mcg daily we will check lab and adjust. Movement disorder To follow with her neurologist No follow-ups on file. documented in this encounter [facility] 04-17-2024 History of Present illness Narrative Patient Name: Melanie Espinoza Date of : 1955 Date of Service: 04/17/2024 Facility: [facility] Type of Visit: Subsequent Visit Subjective Melanie Espinoza is a 68 y.o. female seen today at assisted facility for monthly visit and per pt request. Melanie asked to see me about her sleep. She takes the trazodone and it only helps for an hour or 2 and then she is awake for the rest of the night. She will get up for breakfast and then take a nap. She is getting set up for a sleep study but doesn't have a date yet. Allergies: Erythromycin and Clarithromycin Code Status: [facility] BP (!) 143/104 Pulse 75 Physical Exam Vitals reviewed. Constitutional: General: She is not in acute distress. Appearance: She is underweight. She is not ill-appearing. Comments: Patient was seen in her room in bed HENT: Head: Normocephalic. Cardiovascular: Rate and Rhythm: Normal rate and regular rhythm. Pulses: Normal pulses. Heart sounds: Normal heart sounds. No murmur heard. Pulmonary: Effort: Pulmonary effort is normal. No respiratory distress. Breath sounds: No wheezing, rhonchi or rales. Abdominal: General: Bowel sounds are normal. Palpations: Abdomen is soft. Tenderness: There is no abdominal tenderness. Musculoskeletal: Right shoulder: Decreased range of motion. Skin: General: Skin is warm and dry. Neurological: General: No focal deficit present. Mental Status: She is alert and oriented to person, place, and time. Motor: Tremor present. Gait: Gait abnormal (ambulating in unit in wheelchair). Psychiatric: Mood and Affect: Mood normal. Thought Content: Thought content normal. Judgment: Judgment normal. Summary / Assessment / Plan 1. Primary hypertension 2. SIADH (syndrome of inappropriate ADH production) ([facility]) 3. Sleep disorder breathing She is on trazodone 200mg and has been for >1 year. Would not recommend to increase it at this time. I would wait and see what the sleep study shows first. Encouraged her to not take a nap. Continue other orders as dir. All medications reviewed and are medically necessary. ELECTRONICALLY SIGNED BY: Alexey Polo DO documented in this encounter [employer] 04-01-2024 History of Present illness Narrative Patient Name: Melanie Espinoza Date of : 1955 Date of Service: 04/01/2024 Facility: [facility] Type of Visit: Skilled Visit Subjective Melanie Espinoza is a 68 y.o. female seen today at assisted facility for therapy visit. Melanie is participating in therapy. She is upset because she was told by the night nurse that she stopped breathing 2 times. It is not clear how long she stopped breathing for. The [employer] nurse practitioner also sees her. We will relay the message to to get a sleep study set up. We maybe able to get by with a sleep study here in house. Otherwise she is doing okay. Pain is adequately controlled. Allergies: Erythromycin and Clarithromycin Code Status: [facility] BP 159/85 Pulse 82 Temp 36.8 C (98.2 F) Resp 18 Wt 41.9 kg (92 lb 6.4 oz) SpO2 95% BMI 16.37 kg/m Physical Exam Vitals reviewed. Constitutional: General: She is not in acute distress. Appearance: She is underweight. She is not ill-appearing. Comments: Patient was seen in her room in bed HENT: Head: Normocephalic. Cardiovascular: Rate and Rhythm: Normal rate and regular rhythm. Pulses: Normal pulses. Heart sounds: Normal heart sounds. No murmur heard. Pulmonary: Effort: Pulmonary effort is normal. No respiratory distress. Breath sounds: No wheezing, rhonchi or rales. Abdominal: General: Bowel sounds are normal. Palpations: Abdomen is soft. Tenderness: There is no abdominal tenderness. Musculoskeletal: Right shoulder: Decreased range of motion. Skin: General: Skin is warm and dry. Neurological: General: No focal deficit present. Mental Status: She is alert and oriented to person, place, and time. Motor: Tremor present. Psychiatric: Mood and Affect: Mood normal. Thought Content: Thought content normal. Judgment: Judgment normal. Summary / Assessment / Plan 1. Aftercare following right shoulder joint replacement surgery 2. Witnessed apneic spells 3. Movement disorder Nurse will notify the [employer] nurse practitioner about setting up a sleep study. They may prefer to do one here in-house depending on what [employer] covers. Continue therapy to reach maximum improvement. Continue other orders as directed. All medications reviewed and are medically necessary. ELECTRONICALLY SIGNED BY: Alexey Polo DO [facility] History of Present illness Narrative Patient Name: Melanie Espinoza Date of : 1955 Date of Service: 03/17/2024 Facility: [facility] Type of Visit: Skilled Visit Subjective Melanie Espinoza is a 68 y.o. female seen today at assisted facility for therapy visit. Melanie is in therapy following her right shoulder replacement. She is nonweightbearing to her right shoulder. They are doing [id number] with pendulum exercises. They are working on donning and doffing her sling. No new medical problems reported. Allergies: Erythromycin and Clarithromycin Code Status: [facility] BP 121/67 Pulse 64 Temp 36.6 C (97.8 F) Resp 18 SpO2 96% Physical Exam Vitals reviewed. Constitutional: General: She is not in acute distress. Appearance: She is underweight. Comments: Patient was seen in her room in bed HENT: Head: Normocephalic. Cardiovascular: Rate and Rhythm: Normal rate and regular rhythm. Pulses: Normal pulses. Heart sounds: Normal heart sounds. No murmur heard. Pulmonary: Effort: Pulmonary effort is normal. No respiratory distress. Breath sounds: No wheezing, rhonchi or rales. Abdominal: General: Bowel sounds are normal. Palpations: Abdomen is soft. Tenderness: There is no abdominal tenderness. Musculoskeletal: Right shoulder: Decreased range of motion. Comments: Right arm in sling Neurological: General: No focal deficit present. Mental Status: She is alert and oriented to person, place, and time. Motor: Tremor present. Psychiatric: Mood and Affect: Mood normal. Thought Content: Thought content normal. Judgment: Judgment normal. Summary / Assessment / Plan 1. Aftercare following right shoulder joint replacement surgery 2. Multifactorial gait disorder 3. Movement disorder Continue therapy to reach maximum improvement. Medically stable. All medications reviewed and are medically necessary. ELECTRONICALLY SIGNED BY: Alexey Polo DO documented in this encounter [facility] 03-15-2024 History of Present illness Narrative Opened in error documented in this encounter [facility] 03-10-2024 History of Present illness Narrative Patient Name: Melanie Espinoza Date of : 1955 Date of Service: 03/10/2024 Facility: [facility] Type of Visit: Skilled Visit Subjective Melanie Espinoza is a 68 y.o. female seen today at assisted facility for therapy visit. Melanie is in therapy following her right shoulder revision. She is participating in therapy and improving her ROM. She has no new medical problems to report. Allergies: Erythromycin and Clarithromycin Code Status: [facility] BP 138/86 Pulse 76 Temp 36.7 C (98 F) Resp 17 Wt 41.1 kg (90 lb 9.6 oz) SpO2 96% BMI 16.05 kg/m Physical Exam Vitals reviewed. Exam conducted with a spray cementer present (Jose Peace MS III). Constitutional: General: She is not in acute distress. Comments: Patient was seen in her room in bed HENT: Head: Normocephalic. Cardiovascular: Rate and Rhythm: Normal rate and regular rhythm. Pulses: Normal pulses. Heart sounds: Normal heart sounds. No murmur heard. Pulmonary: Effort: Pulmonary effort is normal. No respiratory distress. Breath sounds: No wheezing, rhonchi or rales. Abdominal: General: Bowel sounds are normal. Palpations: Abdomen is soft. Tenderness: There is no abdominal tenderness. Musculoskeletal: Right shoulder: Decreased range of motion. Cervical back: Neck supple. Comments: Right arm in sling Neurological: General: No focal deficit present. Mental Status: She is alert and oriented to person, place, and time. Motor: Tremor present. Psychiatric: Mood and Affect: Mood normal. Thought Content: Thought content normal. Judgment: Judgment normal. Summary / Assessment / Plan 1. Localized osteoarthritis of right shoulder 2. Aftercare following right shoulder joint replacement surgery 3. S/P reverse total shoulder arthroplasty, right 4. Primary hypertension Medically stable. Continue therapy to reach maximum improvement. All medications reviewed and are medically necessary. ELECTRONICALLY SIGNED BY: Alexey Polo DO documented in this encounter [facility] 02-25-2024 History of Present illness Narrative Patient Name: Melanie Espinoza Date of : 1955 Date of Service: 02/25/2024 Facility: [facility] Type of Visit: Skilled Visit Subjective Melanie Espinoza is a 68 y.o. female seen today at assisted facility for therapy visit. Melanie is in therapy following surgery for her revision of her right shoulder reverse arthroplasty. She saw the surgeon yesterday and remove the brace and put on a sling. She is happy about that. Pain is adequately controlled. She is participating in therapy. She has no new concerns. Allergies: Erythromycin and Clarithromycin Code Status: [facility] BP 133/90 Pulse 71 Temp 36.1 C (97 F) Resp 18 SpO2 95% Physical Exam Vitals reviewed. Exam conducted with a spray cementer present (Jose Barragan MS III). Constitutional: General: She is not in acute distress. Comments: Patient was seen in her room in bed eating lunch HENT: Head: Normocephalic. Cardiovascular: Rate and Rhythm: Normal rate and regular rhythm. Pulses: Normal pulses. Heart sounds: Normal heart sounds. No murmur heard. Pulmonary: Effort: Pulmonary effort is normal. No respiratory distress. Breath sounds: No wheezing, rhonchi or rales. Abdominal: General: Bowel sounds are normal. Palpations: Abdomen is soft. Tenderness: There is no abdominal tenderness. Musculoskeletal: Right shoulder: Decreased range of motion. Cervical back: Neck supple. Comments: Right arm in sling Neurological: General: No focal deficit present. Mental Status: She is alert and oriented to person, place, and time. Motor: Tremor present. Psychiatric: Mood and Affect: Mood normal. Thought Content: Thought content normal. Judgment: Judgment normal. Summary / Assessment / Plan 1. Aftercare following right shoulder joint replacement surgery 2. Localized osteoarthritis of right shoulder 3. SIADH (syndrome of inappropriate ADH production) ([facility]) 4. Primary hypertension Medically stable. Continue therapy. She is slowly improving. All medications reviewed and are medically necessary. ELECTRONICALLY SIGNED BY: Alexey Polo DO documented in this encounter [facility] 02-21-2024 History of Present illness Narrative Patient Name: Melanie Espinoza Date of : 1955 Date of Service: 02/21/2024 Facility: [facility] Type of Visit: Skilled Visit Subjective Melanie Espinoza is a 68 y.o. female seen today at assisted facility for therapy visit. No new problems reported by staff or patient. She is in therapy for recent right shoulder revision. She is non-weight bearing for her right shoulder. They are doing ROM exercises. Allergies: Erythromycin and Clarithromycin Code Status: [facility] BP 128/74 Pulse 64 Temp 36.5 C (97.7 F) Physical Exam Vitals reviewed. Constitutional: General: She is not in acute distress. Comments: Patient was seen in her room HENT: Head: Normocephalic. Cardiovascular: Rate and Rhythm: Normal rate and regular rhythm. Pulses: Normal pulses. Heart sounds: Normal heart sounds. No murmur heard. Pulmonary: Effort: Pulmonary effort is normal. No respiratory distress. Breath sounds: No wheezing, rhonchi or rales. Abdominal: General: Bowel sounds are normal. Palpations: Abdomen is soft. Tenderness: There is no abdominal tenderness. Musculoskeletal: Right shoulder: Tenderness present. Decreased range of motion. Cervical back: Neck supple. Comments: Right arm in a sling Neurological: General: No focal deficit present. Mental Status: She is alert and oriented to person, place, and time. Motor: Tremor present. Psychiatric: Mood and Affect: Mood normal. Thought Content: Thought content normal. Judgment: Judgment normal. Summary / Assessment / Plan 1. Localized osteoarthritis of right shoulder 2. S/P reverse total shoulder arthroplasty, right Medically stable. Continue current regimen. All medications reviewed and are medically necessary. ELECTRONICALLY SIGNED BY: Alexey Polo DO documented in this encounter [employer] 02-13-2024 Progress note Note Date/Time February 13, 2024 8:15am [facility] [address] [place] [address] Orthopedic Progress Note Signed Patient: Melanie Espinoza MR#: [id number] : 1955 Acct:[id number] Age/Sex: 68 / F Adm Date: 4 Loc: 4N Room: [address] [place] [address] Type: REG SDC Attending Dr: Nickolas Hawthorne DO Copies to: ~ Date of Service: 02/13/2024 Subjective Subjective Interval History: Jeevan is doing well this morning. Pain is well-controlled. No issues overnight. Denies any fevers, chills, chest pain, shortness of breath. Exam Physical Exam Vital Signs: Temp Pulse Resp BP Pulse Ox O2 Del Method O2 Flow Rate 97.5 F L 61 22 127/67 94 L Room Air 8 02/12/24 18:25 02/12/24 18:50 02/12/24 18:50 02/12/24 18:50 02/12/24 20:09 02/13/24 00:00 02/12/24 18:25 Per surgical incision covered with dressing clean dry and intact. Tolerates arcs of motion of her shoulder with mild pain. Painless range of motion of the elbow. AIN, PIN, radial, median, ulnar nerves intact. Sensation intact to light touch C5-T1. Radial artery palpable. Objective Labs Labs: Laboratory Results - last 24 hr 02/12/24 02/12/24 12:48 16:44 Corrected WBC 6.5 Uncorrected WBC Count 6.5 RBC 4.77 Hgb 13.7 Hct 41.5 MCV 86.9 MCH 28.7 MCHC 33.0 RDW 14.5 Plt Count 411 MPV 6.4 Neut % (Auto) 73.7 Lymph % (Auto) 14.6 [place] % (Auto) 8.7 Eos % (Auto) 2.1 Baso % (Auto) 0.9 Nucleat RBC Rel Count 0.1 Neut # (Auto) 4.8 Lymph # (Auto) 0.9 L [place] # (Auto) 0.6 Eos # (Auto) 0.1 Baso # (Auto) 0.1 ESR 13 D-Dimer Quant (PE/DVT) 647 H PHA Creatinine Clear 44.31 Sodium 132 L Potassium 4.3 Chloride 99 Carbon Dioxide 27.2 Anion Gap 10.1 BUN 12 Creatinine 0.40 L Est GFR (CKD-EPI) > 60.0 Glucose 92 Calcium 9.0 C-Reactive Prot, Quant 0.6 H Synovial Color Red Synovial Appearance Turbid A Synov Supernatant Color Red Synovial RBC 535706 H Synovial Tot Nuc Cell 92326 H Synovial Neutrophils 12 Synovial Eosinophils 0 Synov Monos/Histiocyte 23 Synovial Lymphocytes % 65 Synovial Fluid Comment Blood Type O Positive Antibody Screen Negative Assessment / Plan Assessment and plan (1) History of revision of total shoulder arthroplasty: Code(s): Z96.619 - Presence of unspecified artificial shoulder joint Plan Melanie is status post right revision shoulder arthroplasty with conversion of hemiarthroplasty removal probably implants on 02/12/2024. Procedure went well with no indications of infection. Patient is low demand and I believe she will do very well with this procedure. -Nonweightbearing right upper extremity. -PT/OT evaluation and treat for elbow range of motion and pendulums -Multimodal pain regiment -Encourage incentive spirometer -24 hours of perioperative antibiotics. Doxycycline 100 mg twice daily for 7 days for further fracture prevention -Okay to DC back to her facility today -Patient to follow-up in 2 weeks outpatient for repeat x-ray and reevaluation Documented By: Nickolas Hawthorne DO 02/13/24 0809 Signed By: <Electronically signed by Nickolas Hawthorne DO> 02/13/2415 [facility] Work Phone: [phone]) 197-217510-22-2024 History of Present illness Narrative* Alexey Polo DO - 02/04/2024 1:38 PM EDT Patient Name: Melanie Espinoza Date of : 1955 Date of Service: 02/04/2024 Facility: [facility] Type of Visit: Skilled Visit Subjective Melanie Espinoza is a 68 y.o. female seen today at assisted facility for therapy visit. Melanie is in therapy and has improved. They are going to discharge her on Saturday. She is going to have her shoulder revision surgery next week. She did have preoperative labs done. She is on fluid restriction for SIADH. Allergies: Erythromycin and Clarithromycin Code Status: [facility] BP 120/65 Pulse 58 Temp 36.6 C (97.8 F) Resp 17 Wt 41.3 kg (91 lb) SpO2 95% BMI 16.12 kg/m Physical Exam Vitals reviewed. Constitutional: General: She is not in acute distress. Comments: Patient was seen in her room in bed eating lunch HENT: Head: Normocephalic. Cardiovascular: Rate and Rhythm: Normal rate and regular rhythm. Pulses: Normal pulses. Heart sounds: Normal heart sounds. No murmur heard. Pulmonary: Effort: Pulmonary effort is normal. No respiratory distress. Breath sounds: No wheezing, rhonchi or rales. Abdominal: General: Bowel sounds are normal. Palpations: Abdomen is soft. Tenderness: There is no abdominal tenderness. Musculoskeletal: Right shoulder: Tenderness present. Decreased range of motion. Cervical back: Neck supple. Neurological: General: No focal deficit present. Mental Status: She is alert and oriented to person, place, and time. Motor: Tremor present. Psychiatric: Mood and Affect: Mood normal. Thought Content: Thought content normal. Judgment: Judgment normal. Na+-128; Cl- 95-both low Rest of BMP and CBC were normal Summary / Assessment / Plan 1. SIADH (syndrome of inappropriate ADH production) (CMS-HCC) 2. Localized osteoarthritis of right shoulder 3. Primary hypertension Sodium is a little bit better but still low. Recommend that she follow the fluid restriction as shehas been known to not follow that order. She is medically cleared for surgery next week. She is a low cardiac risk. She just had a cardiac catheterization which showed mild disease. ELECTRONICALLY SIGNED BY: Alexey Polo DO documented in this encounterMary [facility]10-15-[facility]24 History of Present illness Narrative* Alexey Polo DO - 01/28/2024 5:36 PM EDT Patient Name: Melanie Espinoza Date of : 1955 Date of Service: 01/28/2024 Facility: [facility] Type of Visit: Skilled Visit Subjective Melanie Espinoza is a 68 y.o. female seen today at assisted facility for therapy visit. Melanie is participating in therapy. She saw her traffic monitor specialist who is going to do a right shoulder revision. This is planned for February 11. She will be getting pre-surgical testing. She has no new problems. Allergies: Erythromycin and Clarithromycin Code Status: [facility] BP 119/63 Pulse 78 Physical Exam Vitals reviewed. Constitutional: General: She is not in acute distress. Comments: Patient was seen in her room in HENT: Head: Normocephalic. Cardiovascular: Rate and Rhythm: Normal rate and regular rhythm. Pulses: Normal pulses. Heart sounds: Normal heart sounds. No murmur heard. Pulmonary: Effort: Pulmonary effort is normal. No respiratory distress. Breath sounds: No wheezing, rhonchi or rales. Abdominal: General: Bowel sounds are normal. Palpations: Abdomen is soft. Tenderness: There is no abdominal tenderness. Musculoskeletal: Cervical back: Neck supple. Neurological: General: No focal deficit present. Mental Status: She is alert and oriented to person, place, and time. Motor: Tremor present. Gait: Gait abnormal ([place] self around unit in wheelchair). Psychiatric: Mood and Affect: Mood normal. Thought Content: Thought content normal. Judgment: Judgment normal. Summary / Assessment / Plan 1. Aftercare following left hip joint replacement surgery 2. Multifactorial gait disorder 3. S/P reverse total shoulder arthroplasty, right 4. Movement disorder 5. SIADH (syndrome of inappropriate ADH production) ([facility]) Continue therapy to reach maximum improvement. Get preop testing done and then we will make a determination for medical clearance. Follow up with traffic monitor specialist as directed. All medications reviewed and are medically necessary. ELECTRONICALLY SIGNED BY: Alexey Polo DO documented in this encounterMary [facility]an Hospital10-10-2024 Evaluation note* Diagnosis Onset Date Resolution Status Admit Date History of reverse total replacement of right shoulder joint acute January 22 9:23am Other mechanical complicatio n of other internal orthopedic devices, implant acute January 22 9:23am History of revision of total shoulder arthroplasty acute February 112023 11:55am History of reverse total replacement of right shoulder joint acute February 23, 024 9:13am History of revision of total shoulder arthroplasty acute February 132023 9:13am Other mechanical complicatio n of other internal orthopedic devices, implant acute February 24, 2024 9:13am [facility] Work Phone: 1(178) 249-211710-09-2024 History of Present illness Narrative* Alexey Polo DO - 01/22/2024 3:03 PM EDT Patient Name: Melanie Espinoza Date of : 1955 Date of Service: 01/22/2024 Facility: [facility] Type of Visit: Skilled Visit Subjective Melanie Espinoza is a 68 y.o. female seen today at [facility] for therapy visit. Melanie is participating in therapy. She is ambulating with a walker with SBA. She has no new problems. Pain is adequately controlled with tylenol. Allergies: Erythromycin and Clarithromycin Code Status: [facility] BP 123/73 Pulse 61 Temp 36.7 C (98 F) Resp 17 Wt 40.2 kg (88 lb 9.6 oz) SpO2 95% BMI 15.69 kg/m Physical Exam Vitals reviewed. Constitutional: General: She is not in acute distress. Comments: Patient was seen in her room in HENT: Head: Normocephalic. Cardiovascular: Rate and Rhythm: Normal rate and regular rhythm. Pulses: Normal pulses. Heart sounds: Normal heart sounds. No murmur heard. Pulmonary: Effort: Pulmonary effort is normal. No respiratory distress. Breath sounds: No wheezing, rhonchi or rales. Abdominal: General: Bowel sounds are normal. Palpations: Abdomen is soft. Tenderness: There is no abdominal tenderness. Musculoskeletal: Cervical back: Neck supple. Neurological: General: No focal deficit present. Mental Status: She is alert and oriented to person, place, and time. Motor: Tremor present. Gait: Gait abnormal. Psychiatric: Mood and Affect: Mood normal. Thought Content: Thought content normal. Judgment: Judgment normal. Summary / Assessment / Plan 1. Aftercare following left hip joint replacement surgery 2. Multifactorial gait disorder 3. Primary osteoarthritis of left hip 4. Primary hypertension Medically stable. Continue therapy to reach maximum improvement. All medications reviewed and are medically necessary. ELECTRONICALLY SIGNED BY: Alexey Polo DO documented in this encounterSpringfield HospitalConvio10-04-2024 History of Present illness Narrative* Alexey Polo DO - 01/17/2024 11:59 PM EDT Patient Name: Melanie Espinoaz Date of : 1955 Date of Service: 01/17/2024 Facility: [facility] Type of Visit: Skilled Visit Subjective Melanie Espinoza is a 68 y.o. female seen today at assisted [facility] for therapy visit. Melanie is in therapy. She saw ortho who told her her hip is healing well. She doesn't have any pain.She also saw test cell technician who changed a few things . She has no new problems to report. Allergies: Erythromycin and Clarithromycin Code Status: [facility] BP 122/77 Pulse 65 Temp 36.6 C (97.9 F) Resp 18 SpO2 96% Physical Exam Vitals reviewed. Constitutional: General: She is not in acute distress. Comments: Patient was seen in her room HENT: Head: Normocephalic. Cardiovascular: Rate and Rhythm: Normal rate and regular rhythm. Pulses: Normal pulses. Heart sounds: Normal heart sounds. No murmur heard. Pulmonary: Effort: Pulmonary effort is normal. No respiratory distress. Breath sounds: No wheezing, rhonchi or rales. Abdominal: General: Bowel sounds are normal. Palpations: Abdomen is soft. Tenderness: There is no abdominal tenderness. Musculoskeletal: Cervical back: Neck supple. Neurological: General: No focal deficit present. Mental Status: She is alert and oriented to person, place, and time. Motor: Tremor present. Gait: Gait abnormal. Psychiatric: Mood and Affect: Mood normal. Thought Content: Thought content normal. Judgment: Judgment normal. Summary / Assessment / Plan 1. Primary osteoarthritis of left hip 2. Aftercare following left hip joint replacement surgery 3. Primary hypertension 4. SIADH (syndrome of inappropriate ADH production) (CMS-HCC) 5. Multifactorial gait disorder Melanie is improving. Continue therapy to reach maximum improvement. Continue current regimen. All medications reviewed and are medically necessary. ELECTRONICALLY SIGNED BY: Alexey Polo DO documented in this encounterMary [facility]an [facility]10-04-[facility] Reason for cardiology visit: Follow-up HPI: 01/17/2024 09/18/2023 Melanie Espinoza is a 68 y.o. female without prior cardiac history but she has history of hypertension, hyperlipidemia, former smoker for about 10 years but she quit in the , history of movement disorder, chronic kidney disease, hypothyroidism. The patient requires left hip surgery and as preop evaluation she underwent Lexiscan nuclear stress test at [facility] which did not show definite perfusion defect [...] states that her blood pressure at the snf go sometimes up to 200s and sometimes it send normal in the 130s. She used to smoke half pack per day for about 10 years however she quit in the . Regarding family history her father secondary to [place] at age 74 and her mother secondary [...] disease, Closed fracture of neck of femur ([facility]) (06/16/2020), COVID-19 (07/04/2023), Dysphagia, Epilepsy ([facility]), GERD (gastroesophageal reflux disease), Hyperlipidemia, Hypertension, Major depressive disorder, Osteoarthritis, Peripheral vascular disease ([facility]), Rectal prolapse, Rhabdomyolysis (07/04/2023), Sepsis ([facility]) (07/04/2023), Tardive dyskinesia, and Tremor. Surgical History She has a past surgical history that includes Shoulder surgery (Right) and Rectal prolapse repair. Social History She reports that she has quit smoking. Her smoking use included cigarettes. She has never used smokeless tobacco. She reports that she does not drink alcohol. No history on file for drug use. Family History Family History Problem Relation Name Age of Onset Hypertension Mother Stroke Mother Heart attack Father Allergies Erythromycin, Azithromycin, Erythromycin base, and Clarithromycin Medications Current Outpatient Medications: amLODIPine (Norvasc) 10 mg tablet, , Disp: , Rfl: atorvastatin (Lipitor) 40 mg tablet, Take 1 tablet by mouth in the evening., Disp: , Rfl: busPIRone (Buspar) 10 mg tablet, Take 15 mg by mouth in the morning and at bedtime., Disp: , Rfl: calcium carbonate 600 mg calcium (1,500 mg) tablet, Take 600 mg by mouth in the morning., Disp: , Rfl: carBAMazepine (TEGretol) 200 mg tablet, Take 200 mg by mouth three times daily., Disp: , Rfl: clonazePAM (KlonoPIN) 0.5 mg tablet, Take 1-2 tablets by mouth at bedtime., Disp: , Rfl: cyclobenzaprine (Flexeril) 10 mg tablet, Take 10 mg by mouth if needed in the morning, at noon, and at bedtime for muscle spasms., Disp: , Rfl: ferrous sulfate 325 (65 Fe) MG tablet, Take 325 mg by mouth with breakfast., Disp: , Rfl: fluticasone (Flonase) 50 mcg/actuation nasal spray, 2 sprays by nasal (alternating) route 1 (one) time each day., Disp: , Rfl: gabapentin (Neurontin) 300 mg capsule, Take 300 mg by mouth in the morning and at bedtime., Disp: , Rfl: gabapentin (Neurontin) 600 mg tablet, at bedtime., Disp: , Rfl: levothyroxine (Tirosint) 75 mcg capsule, Take 75 mcg by mouth in the morning., Disp: , Rfl: loperamide (Imodium A-D) 2 mg tablet, Take 2 mg by mouth every 6 (six) hours if needed for diarrhea., Disp: , Rfl: menthol (Biofreeze, menthol,) 4 % gel, Apply 1 Application topically every 8 (eight) hours if needed., Disp: , Rfl: metoprolol succinate XL (Toprol-XL) 25 mg 24 hr tablet, Take 1 tablet (25 mg) by mouth in the morning. Do not crush or chew., Disp: 30 tablet, Rfl: 0 mirtazapine (Remeron) 15 mg tablet, Take 15 mg by mouth at bedtime., Disp: , Rfl: nitroglycerin (Nitrostat) 0.4 mg SL tablet, , Disp: , Rfl: pantoprazole (ProtoNix) 40 mg EC tablet, Take 40 mg by mouth before breakfast., Disp: , Rfl: primidone (Mys (more content not included)...[facility] 01-16-2024 Note Attestation signed by Ernesto Kan MD at 01/18/2024 8:37 PM I didn't personally see the patient on the day of the encounter I discussed with the resident Janeth Gonzales MD and agree with the documentation. Orthopedic Surgery Subjective Chief complaint: Chief Complaint Patient presents with Left Hip - Post-op L NICOLASA post op 01/16/2024 Melanie is a 68-year-old female returns to clinic today status post left hip conversion to left anterior NICOLASA (DOS 12/06/2023), now 6 weeks postop. She has been doing well postoperatively. She states her left hip pain is well-controlled. Denies fever, chills, shortness of breath, chest pain, numbness, and tingling. She lives in the facility and has been working with physical therapy there. She is ambulating with a walker. Denies any recent falls. She has been taking aspirin 325 mg twice daily as prescribed for DVT prophylaxis. She has no new concerns today and feels that she is doing much better than prior to surgery. 12/26/2023 @ 3:10 PM LENGTH OF THE VISIT 20 ,MINS This is a telemedicine visit Melanie Espinoza is a 68 y.o. year old female s/p Left hip conversion into Left NICOLASA DOS 12/06/2023 she is almost 3 weeks post op. Patient is in a facility , I personally spoke with the patient and her nurse in the room as well, patient is overall doing well she stated that she fell 3 times one of them when she was truying to pick something from the floor. She has an X ray done and the results of the report was sent to us but no images, with no obvious fracture or dislocations, patient stated that she is overall doing well , with no fever or chills, no chest pain , no SOB or irregular heart beats , she stated that pain is controlled with pain medications and stated that she doesn't have any drainage from the incision, she is on DVT prophlyaxis and pain control and her nurse stated that she is walking fairly with a walker and no obvious deformity. Discussed with the patient and her nurse , remove dressing, patient can shower, continue WBAT with a walker and emphasized the anterior hip precautions, continue DVT prophylaxis and pain control and follow up in clinic in 2 weeks for new X rays , all questions answered , instructed to present to clinic KOBE in case of pedal swelling, increasing pain or any drainage from the incision. Patient History Past Surgical History: Procedure Laterality Date RECTAL PROLAPSE REPAIR SHOULDER SURGERY Right Past Medical History: Diagnosis Date Anemia Anxiety Arthritis Chronic kidney disease Closed fracture of neck of femur ([facility]) 06/16/2020 COVID-19 07/04/2023 Dysphagia Epilepsy ([facility]) GERD (gastroesophageal reflux disease) Hyperlipidemia Hypertension Major depressive disorder Osteoarthritis Peripheral vascular disease ([facility]) Rectal prolapse Rhabdomyolysis 07/04/2023 Sepsis ([facility]) 07/04/2023 Tardive dyskinesia Tremor Objective Left Hip: Inspection- Incision healing well. No erythema, swelling, or ecchymosis. Non-tender to palpation throughout hip and thigh No pain with gentle circumduction of hip Able to actively flex hip to 120 degrees without discomfort Calf soft and non-tender. No significant swelling of lower leg. Strength: Hip Flexion 5/5 Knee Flexion 5/5 Knee Extension 5/5 Dorsiflexion 5/5 Plantarflexion 5/5 Sensation: intact over superficial peroneal, deep peroneal and tibial nerve distributions Gait: In wheelchair Imaging personally reviewed: X-rays of the left hip obtained today demonstrate intact left total hip components in good alignment. No evidence of loosening or fracture. Assessment/Plan Melanie Espinoza is a 68 y.o. year old female status post left hip conversion in to left NICOLASA Status post total hip replacement, left [Z96.642] -Clinical and imaging findings were reviewed with patient. She is doing quite well 6 weeks out from left hip conversion to NICOLASA and has no new concerns today. -Continue working with physical therapy at her living facility, using assistive devices as needed -Continue following anterior hip precautions -May discontinue aspirin 325 mg twice daily -Follow-up in clinic in 6 months. If she experiences any problems, including increased pain or drainage from the incision, we encouraged her to return to clinic sooner. Janeth Gonzales MD Orthopaedic Surgery Resident, PGY-4 01/16/24 By using the attestations below, the signing clinician agrees that I have read and verify that the documentation has been personally reviewed by me and ensure that the documentation accurately reflects the encounter. Office Visit Attestation GC: I personally saw this patient on the day of the encounter, performed the denton portion(s) of the service and participated in the management and confirm the (more content not included)...[facility]09-24-2024 History of Present illness Narrative* Alexey Polo DO - 01/07/2024 11:59 PM EDT Patient Name: Melanie Espinoza Date of : 1955 Date of Service: 01/07/2024 Facility: [facility] Type of Visit: Skilled Visit Subjective Melanie Espinoza is a 68 y.o. female seen today at assisted facility for therapy visit. Melanie is in therapy under part B. She had a recent left hip replacement. She has no new problems toreport. Pain is controlled. Allergies: Erythromycin and Clarithromycin Code Status: [facility] BP 109/68 Pulse 58 Temp 36.6 C (97.8 F) Resp 18 SpO2 96% Physical Exam Vitals reviewed. Constitutional: General: She is not in acute distress. Comments: Patient was seen in her room HENT: Head: Normocephalic. Cardiovascular: Rate and Rhythm: Normal rate and regular rhythm. Pulses: Normal pulses. Heart sounds: Normal heart sounds. No murmur heard. Pulmonary: Effort: Pulmonary effort is normal. No respiratory distress. Breath sounds: No wheezing, rhonchi or rales. Musculoskeletal: Cervical back: Neck supple. Neurological: General: No focal deficit present. Mental Status: She is alert and oriented to person, place, and time. Motor: Tremor present. Gait: Gait abnormal. Psychiatric: Mood and Affect: Mood normal. Thought Content: Thought content normal. Judgment: Judgment normal. Summary / Assessment / Plan 1. Aftercare following left hip joint replacement surgery 2. Multifactorial gait disorder 3. Hypo-osmolality and hyponatremia 4. Hypocalcemia 5. Hypokalemia 6. SIADH (syndrome of inappropriate ADH production) ([facility]) Na+ is still down. Encouraged fluid restriction. Ca+ improved. K+ normal. Continue current regimen. Continue therapy to reach MMI. All medications reviewed and are medically necessary. ELECTRONICALLY SIGNED BY: Alexey Polo DO documented in this encounterMary [facility]09-12-2024 NoteOrthopedic Surgery Subjective Chief complaint: Chief Complaint Patient presents with Left Hip - Pain, Post-op TELEMED PHONE CONVO 1ST POST OP 12/26/2023 @ 3:10 PM LENGTH OF THE VISIT 20 ,MINS This is a telemedicine visit Melanie Espinoza is a 68 y.o. year old female s/p Left hip conversion into Left NICOLASA DOS 12/06/2023 she is almost 3 weeks post op. Patient is in a facility , I personally spoke with the patient and her nurse in the room as well, patient is overall doing well she stated that she fell 3 times one of them when she was truying to pick something from the floor. She has an X ray done and the results of the report was sent to us but no images, with no obvious fracture or dislocations, patient stated that she is overall doing well , with no fever or chills, no chest pain , no SOB or irregular heart beats , she stated that pain is controlled with pain medications and stated that she doesn't have any drainage from the incision, she is on DVT prophlyaxis and pain control and her nurse stated that she is walking fairly with a walker and no obvious deformity. Discussed with the patient and her nurse , remove dressing, patient can shower, continue WBAT with a walker and emphasized the anterior hip precautions, continue DVT prophylaxis and pain control and follow up in clinic in 2 weeks for new X rays , all questions answered , instructed to present to clinic KOBE in case of pedal swelling, increasing pain or any drainage from the incision. Patient History Past Surgical History: Procedure Laterality Date RECTAL PROLAPSE REPAIR SHOULDER SURGERY Right Past Medical History: Diagnosis Date Anemia Anxiety Arthritis Chronic kidney disease Closed fracture of neck of femur ([facility]) 06/16/2020 COVID-19 07/04/2023 Dysphagia Epilepsy ([facility]) GERD (gastroesophageal reflux disease) Hyperlipidemia Hypertension Major depressive disorder Osteoarthritis Peripheral vascular disease ([facility]) Rectal prolapse Rhabdomyolysis 07/04/2023 Sepsis ([facility]) 07/04/2023 Tardive dyskinesia Tremor Objective Imaging personally reviewed: None Assessment/Plan Melanie Espinoza is a 68 y.o. year old female status post left hip conversion in to left NICOLASA No primary diagnosis found. [facility] Physical Therapy Physical Therapy Treatment Patient Name: Melanie Espinoza : 1955 Today's Date: 12/10/2023 Time In: 1345 Time Out: 1359 Patient Active Problem List Diagnosis Avascular necrosis of bone of hip, left ([facility]) Movement disorder Acquired hypothyroidism Acute alteration in mental status Anemia Depression Generalized anxiety disorder Generalized muscle weakness Hiatal hernia Hydronephrosis Hypocalcemia Hypoglycemia Hypokalemia Hypophosphatemia Chronic hyponatremia Leg swelling Primary osteoarthritis Multifactorial gait disorder Nausea and vomiting Osteoarthritis of left hip Pain of left hip joint Primary hypertension Rectal prolapse S/P reverse total shoulder arthroplasty, right SIADH (syndrome of inappropriate ADH production) ([facility]) Tardive dyskinesia Abnormal cardiovascular stress test Atherosclerosis of [place] coronary artery of [place] heart without angina pectoris 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 [facility]08-27-2024 NotePatient has [facility]-no precert required. OTM notified.[facility] 12-10-2023 Note Attestation signed by Jasmina Espinosa MD at 12/12/2023 7:33 AM I saw and examined patient at bedside with . I agree with assessment and plan below. She has no complaints today, Na level is stable. Nephrology Progress Patient : Melanie Espinoza; 68 y.o. Location: 6109/6109-01 Attending: Ernesto Kan MD Admit Date: 12/06/2023 Hospital Day: 4 [...] Input/Output: I/O last 3 completed shifts: In: 2020 (40.8 mL/kg) [P.O.:1920; IV Piggyback:100] Out: 550 [...] Dose Status alendronate (Fosamax) 70 mg tablet [id number] No Take 1 tablet by mouth 1 (one) time per week. Historical ProviderMD Past Week Active aspirin 81 mg chewable tablet [id number] No Chew 1 tablet (81 mg) in the morning. Leonie Joya MD Past Week Active atorvastatin (Lipitor) 40 mg tablet [id number] Yes Take 1 tablet by mouth in the evening. Historical ProviderMD 12/05/2023 Active atorvastatin (Lipitor) 40 mg tablet [id number] Take 1 tablet (40 mg) by mouth in the morning. Dionicio Gardner MD 12/04/23 2359 A (more content not included)...[facility]08-27-2024 NoteGIM Inpatient Progress Note Patient - Melanie Espinoza [...] , ABGPO2 , ABGHCO3 , ABGBASEDEFIC , [id number] , ABGOXYGENSOU No lab exists for component: [...] reactive PLAN: Fluid restriction (more content not included)...[facility]08-27-2024 NoteOccupational Therapy Occupational Therapy Treatment Note Patient Name: Melanie Espinoza Patient Date of : 1955 Today's Date: 12/10/23 Time in: 0950 Time Out: 1038 Total Time: 48 Past Medical History and Past Surgical History Patient Active Problem List Diagnosis Avascular necrosis of bone of hip, left ([facility]) Movement disorder Acquired hypothyroidism Acute alteration in mental status Anemia Depression Generalized anxiety disorder Generalized muscle weakness Hiatal hernia Hydronephrosis Hypocalcemia Hypoglycemia Hypokalemia Hypophosphatemia Chronic hyponatremia Leg swelling Primary osteoarthritis Multifactorial gait disorder Nausea and vomiting Osteoarthritis of left hip Pain of left hip joint Primary hypertension Rectal prolapse S/P reverse total shoulder arthroplasty, right SIADH (syndrome of inappropriate ADH production) ([facility]) Tardive dyskinesia Abnormal cardiovascular stress test Atherosclerosis of [place] coronary artery of [place] heart without angina pectoris 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 chronic kidney disease stage V or end stage renal disease(404.12) ([facility]) GERD (gastroesophageal reflux disease) Traumatic arthritis of left hip Past Medical History: Diagnosis Date Anemia Anxiety Arthritis Chronic kidney disease Closed fracture of neck of femur ([facility]) 06/16/2020 COVID-19 07/04/2023 Dysphagia Epilepsy ([facility]) GERD (gastroesophageal reflux disease) Hyperlipidemia Hypertension Major depressive disorder Osteoarthritis Peripheral vascular disease ([facility]) Rectal prolapse Rhabdomyolysis 07/04/2023 Sepsis ([facility]) 07/04/2023 Tardive dyskinesia Tremor Past Surgical History: Procedure Laterality Date RECTAL PROLAPSE REPAIR SHOULDER SURGERY Right OT Received On 12/10/2023 Subjective When we are done, Id like to get back into bed. Objective 1 Pt was returned to bed at EOS with alarm on, [place] on and heel floating. Objective 2 Once pt was returned to bed automotive service writer noted what appeared to be an equinovarus deformity and notified OT and PT to further assess. This deformity was not noted during wt bearing activities. OT Discharge Recommendation Long-Term Facility OT Equipment Recommendations TBD General Pain 7 Pain Location L hip (nursing notified for pain medication) Pain Comments Precautions: Anterior NICOLASA, IV, telemetry, bed alarm UE WB status bilateral, WBAT LE WB status bilateral, WBAT Cognition Orientation Oriented x4 Attention Span intact Memory intact Sequencing intact Problem Solving intact Other General Assessment Vision wears glasses all the time Hearing Intact Communication Intact Skin: No issues noted Edema: No issues noted Balance: Sitting Static Balance: Balance support RUE support, LUE support, Unilateral UE Support, No UE Support, Feet Supported Level of Assist: Supervision/set -up Comments: While sitting EOB Standing Static Balance: Balance support R UE support, L UE support, Unilateral UE support, Rolling Walker Level of Assist: Minimal assist Comments: Hands on for safety when standing for tello care/brief change with use of walker. Activities of Daily Living UB dressing: Level of Assistance: Supervision/set -up Where Assessed: From chair, No equipment used Comments: LB dressing: Level of Assistance: Minimal assist Where Assessed: From chair, Standing , dust mop maker Comments: Pt sat to remove brief and thread brief with use of dust mop maker and stood with walker for pulling over hips. UB bathing: Level of Assistance: Supervision/set -up Where Assessed: from chair, None Comments: LB Bathing Level of Assistance: Minimal assist Where Assessed: Standing, Rolling Walker Comments: With use of walker and hands on to stabilize. Bed Mobility: For sit to supine with HOB flat, no rails Rolling Right: Minimal Assist Comments: Assist required with L LE Sit to Supine: Minimal Assist Comments: Assist required with L LE. Pt was able to control own trunk. Transfers: Sit to Stand: Minimal Assist , Rolling Walker Comments: Stand to Sit: SBA/Supervision, None Comments: With cues for hand placement. 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 Prognosis: Fair Evaluation/Treatment Tolerance: Patient tolerated treatment well Medical Staff Made Aware: Yes Strengths: Ability to acquire knowledge, Capable of completing ADLs semi/independent, Insight into problems, Living arrangement secure (more content not included)...[facility]08-27-2024 Note 12/10/23 0911 Post Acute Info Authorization started for SNF (03) [facility] name [facility] When was authorization started? 12/10/23 What time was authorization started? 0911 Reference number for submission ([id number]) How are we submitting authorization Manual What insurance are we submitting through [employer] Submitted precert request for [facility] SNF, OTM to follow. [facility]08-27-2024 Note Attestation signed by Ernesto Kan MD at 12/15/2023 9:44 AM I didn't [...] Lyon MD Orthopaedic Surgery, PGY-4 Ortho Pager [phone] 12/10/23 7:51 [facility]08-26-2024 Note Attestation signed by Jasmina Espinosa MD at 12/12/2023 7:27 AM I saw and examined patient at bedside with , I agree with assessment and plan below. Nephrology Progress Patient : Melanie Espinoza; 68 y.o. Location: 6109/6109-01 Attending: Ernesto Kan MD Admit Date: 12/06/2023 Hospital Day: 3 [...] Dose Status alendronate (Fosamax) 70 mg tablet [id number] No Take 1 tablet by mouth 1 (one) time per week. Historical ProviderMD Past Week Active aspirin 81 mg chewable tablet [id number] No Chew 1 tablet (81 mg) in the morning. Leonie Joya MD Past Week Active atorvastatin (Lipitor) 40 mg tablet [id number] Yes Take 1 tablet by mouth in the evening. Kasi Mcclain MD 12/05/2023 Active atorvastatin (Lipitor) 40 mg tablet [id number] Take 1 tablet (40 mg) by mouth in the morning. Dionicio Gardner MD 12/04/23 3509 Austedo 12 mg tablet [id number] Yes Take 12 mg by mouth in the morning and at bedtime. 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 1955 [id number] Date of Admission - 12/06/2023 5:42 AM [...] , ABGPO2 , ABGHCO3 , ABGBASEDEFIC , AGQR3URH , ABGOXYGENSOU No lab exists for component: [...] sodium chloride, 1 g, (more content not included)...[facility]08-26-2024 Note Attestation signed by Ernesto Kan MD at 12/09/2023 12:23 PM I personally [...] Lyon MD Orthopaedic Surgery, PGY-4 Ortho Pager [phone] 12/09/23 6:17 [facility]08-25-2024 Note Attestation signed by Brigitte Akhtar MD [...] Espinoza; 68 y.o. Location: 6109/6109-01 Attending: Ernesto Kan MD Admit Date: 12/06/2023 Hospital Day: 2 [...] Dose Status alendronate (Fosamax) 70 mg tablet [id number] No Take 1 tablet by mouth 1 (one) time per week. His (more content not included)...[facility]08-25-2024 NoteINTERNAL MEDICINE Follow-up Patient Visit HPI: continues to [...] be contributing to her hyponatremia. 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 supervisor Referral Reason Follow up;Placement;Information Patient Information Primary Caregiver Other (Comment) (LTC at [facility]) Activities of Daily Living Assistive Device Wheelchair;Walker Living Arrangement (Current/Prior to Hospitalization) long term/residential care;ECF Ambulation Minimum assistance Dressing Minimum assistance Feeding Independent Behavior Oriented Communication Talks;Understands speaking;Understands Thai Discharge Planning Support Systems Friends/neighbors;Other (Comment) (long term staff) Type of Residence half-way facility;ECF Care Facility Name [facility] Will patient need Precert for Post Acute needs? Yes Patient's goal for discharge [facility] Does the patient need discharge transport arranged? Yes Screened by [facility]. 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 PT/OT recommend skilled therapy. Sent referral to [facility] to check on Medicaid bed hold and if they can accept back prior to skilled auth for therapy.[facility]08-24-2024 NoteOccupational Therapy Occupational Therapy Evaluation Patient Name: Melanie [...] Avascular necrosis of bone of hip, left ([facility]) Movement disorder Acquired hypothyroidism Acute alteration in mental status Acute hyponatremia Acute metabolic encephalopathy Anemia Anxiety Closed fracture of neck of femur ([facility]) COVID-19 Depression Generalized anxiety disorder Generalized muscle weakness Hiatal hernia Hydronephrosis Hypocalcemia Hypoglycemia Hypokalemia Hypophosphatemia Hyposmolality syndrome Leg swelling Primary osteoarthritis Multifactorial gait disorder Nausea and vomiting Osteoarthritis of left hip Pain of left hip joint Primary hypertension Rectal prolapse Rhabdomyolysis S/P reverse total shoulder arthroplasty, right Sepsis (CMS/HCC) SIADH (syndrome of inappropriate ADH production) ([facility]) Tardive dyskinesia Preoperative clearance Abnormal cardiovascular stress test Atherosclerosis of [place] coronary artery of [place] heart without angina pectoris 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 chronic kidney disease stage V or end stage renal disease(404.12) (CMS/HCC) GERD (gastroesophageal reflux disease) Traumatic arthritis of left hip Past Medical History: Diagnosis Date Anemia Anxiety Arthritis Chronic kidney disease Dysphagia Epilepsy (CMS/HCC) GERD (gastroesophageal reflux disease) Hyperlipidemia Hypertension Major depressive disorder Osteoarthritis Peripheral vascular disease (CMS/HCC) Rectal prolapse Past Surgical History: Procedure Laterality [...] Home Living Home Living Type of Home: long term Home Adaptive Equipment: Walker rolling, Wheelchair-manual, Rollator Prior Level of Function Prior Function Level of Reynolds: Needs assistance with ADLs, Needs assistance with [...] Coordination Movements are Fluid (more content not included)...[facility]08-24-2024 NotePhysical Therapy Evaluation Patient Name: Melanie Espinoza Today's Date: 12/07/2023 Admit Date: 12/06/2023 Time In: 1035 Time Out: 1053 Total Time: 18 minutes Discharge Recommendation: therapy at SNF/her home ECF History of present illness Melanie Espinoza is a 68 y.o. female admitted to [facility] following right anterior approach NICOLASA due to AVN. Pt is a shelter resident at a ,pt has sig mobility deficits associated with her tardive dyskinesia. At baseline pt does not walk but she does report independent transfers to her WC. Pt is now WBAT with anterior hip [...] Avascular necrosis of bone of hip, left ([facility]) Movement disorder Acquired hypothyroidism Acute alteration in mental status Acute hyponatremia Acute metabolic encephalopathy Anemia Anxiety Closed fracture of neck of femur ([facility]) COVID-19 Depression Generalized anxiety disorder Generalized muscle weakness Hiatal hernia Hydronephrosis Hypocalcemia Hypoglycemia Hypokalemia Hypophosphatemia Hyposmolality syndrome Leg swelling Primary osteoarthritis Multifactorial gait disorder Nausea and vomiting Osteoarthritis of left hip Pain of left hip joint Primary hypertension Rectal prolapse Rhabdomyolysis S/P reverse total shoulder arthroplasty, right Sepsis ([facility]) SIADH (syndrome of inappropriate ADH production) ([facility]) Tardive dyskinesia Preoperative clearance Abnormal cardiovascular stress test Atherosclerosis of [place] coronary artery of [place] heart without angina pectoris 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 chronic kidney disease stage V or end stage renal disease(404.12) ([facility]) GERD (gastroesophageal reflux disease) Traumatic arthritis of left hip Past Medical History: Diagnosis Date Anemia Anxiety Arthritis Chronic kidney disease Dysphagia Epilepsy ([facility]) GERD (gastroesophageal reflux disease) Hyperlipidemia Hypertension Major depressive disorder Osteoarthritis Peripheral vascular disease ([facility]) Rectal prolapse Past Surgical History: Procedure Laterality Date RECTAL PROLAPSE REPAIR SHOULDER SURGERY Right Prior level of function Pt notes she does not walk , notes she was transferring independently to and from , she notes she gets help with ADLS, she notes about 50% assistance Home set-up Pt lives at [facility] Support system ECF staff. Adaptive Equipment Per ECF staff Pain No expressions of pain during [...] T-Score: 11 Assessment Melanie Espinoza presents to [facility] with limited functional mobility secondary to recent left NICOLASA, anterior approach, per Dr Kan. The patient demonstrates decreased strength, postural control/awareness, and gait/balance impairments (more content not included)...[facility]08-24-2024 Note Attestation signed by Gurpreet Man MD [...] Espinoza Age - 68 y.[facility]. [facility] 1955 [id number] Date of Admission - 12/06/2023 5:42 AM [...] , ABGPO2 , ABGHCO3 , ABGBASEDEFIC , HVSY2BLZ , ABGOXYGENSOU No lab exists for component: [...] of SIADH Hyponatremia, w (more content not included)...[facility]08-24-2024 Note12/07/23 1012 Admission Assessment Questions Verify insurance with patient Yes Do you understand medical disease or what brought you into the hospital? Yes Who is your current PCP? Aelxey Polo MD Can I schedule a follow up appointment for you at the time of discharge? Yes Do you understand why you are taking your current medications? Yes Are you taking your medications as prescribed? Yes Did patient provide teach back? Yes Pharmacy Bedside Delivery Status Interested Does the patient have a case making machine operator assigned to them through their insurance? No Living Arrangement (Current/Prior to Hospitalization) long term/residential care ([facility]) Does the patient have history of HHC or SNF? Yes Assistive Device Walker;Wheelchair Patient's goal for discharge To return to [place] Was patient reminded that goal for discharge is 11am? Yes Does the patient have transportation at discharge? No Type of Residence long term/residential care Is PT/OT appropriate? Yes Is PT/OT ordered? Yes Is SW consult appropriate? No Is SW consult ordered? No Do you understand the benefits of MyChart? No Were you able to send link and activate [email or web address]? [facility]08-24-2024 Note Attestation signed by Ernesto Kan MD at 12/08/2023 10:03 AM I didn't [...] Lyon MD Orthopaedic Surgery, PGY-4 Ortho Pager [phone] 12/07/23 8:04 [facility]08-23-2024 NotePatient: Melanie Espinoza Procedure Summary Date: 12/06/23 Room / Location: [facility] OPERATING ROOM 02 / [facility] Operating Room Anesthesia Start: 726 Anesthesia Stop: 1111 Procedure: LEFT HIP CONVERSION TO TOTAL HIP ARTHROPLASTY ANTERIOR APPROACH (Left: Hip) Diagnosis: AVN (avascular necrosis of bone) (CMS/HCC) Primary osteoarthritis of left hip (AVN (avascular necrosis of bone) (CMS/HCC) [M87.00]Primary osteoarthritis of left hip [M16.12]) Surgeons: Ernesto Kan MD Responsible Provider: Jeffrey Summers MD Anesthesia Type: general ASA Status: 2 Anesthesia Type: general Vitals Value Taken Time BP 137/63 12/06/23 1105 Temp 37.2 ???C (99 ???F) 12/06/23 1105 Pulse 79 12/06/23 1114 Resp 13 12/06/23 1114 SpO2 94 % 12/06/231113 Vitals shown include unvalidated device data. Anesthesia [...] PACU per anesthesia protocol. No notable events documented.[facility]08-23-2024 Note Patient: Melanie Espinoza Procedure Summary Date: 12/06/23 Room / Location: [facility] OPERATING ROOM 02 / [facility] Operating Room Anesthesia Start: 726 Anesthesia Stop: Procedure: LEFT HIP CONVERSION TO TOTAL HIP ARTHROPLASTY ANTERIOR APPROACH (Left: Hip) Diagnosis: AVN (avascular necrosis of bone) (CMS/HCC) Primary osteoarthritis of left hip (AVN (avascular necrosis of bone) (CMS/HCC) [M87.00]Primary osteoarthritis of left hip [M16.12]) Surgeons: Ernesto Kan MD Responsible Provider: Jeffrey Summers MD Anesthesia Type: general ASA Status: 2 Anesthesia Post Transport Note Transport to: PACU O2 Route: room air Patient Monitor: direct observation Transport: uneventful Patient condition is[facility]24 Note Airway Date/Time: 12/06/2023 7:36 AM Urgency: elective General Information and Staff Patient location during procedure: OR Resident/HOMOEOPATH/CAA: Calvin Cervantes MD Performed: other anesthesia staff [...] approach: 1 Number of other approaches attempted: 0[facility] 11-29-2023 NotePatient is from a snf - plan is to return to the snf after surgery.[facility]08-15-2024 NotePatient lives at [facility] and will discharge back there. I have put in a referral to Social work.[facility]08-15-2024 NoteDoneUnUC Health08-15-2024 NoteOrthopedic Surgery Subjective Pain of the Left Hip (PRE-OP L HIP CONVERSION TO L NICOLASA , PATIENT RESIDES AT 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 Per her primary care physician recommendations she underwent coronary angiogram. This showed mild three-vessel coronary disease and the recommendation for her test cell technician was to be on aspirin, statin, and [...] Major depressive disorder Osteoarthritis Peripheral vascular disease ([facility]) Rectal prolapse Objective General: Body [...] to provide a note (more content not included)...[facility]08-15-2024 Note Orthopedic Surgery Subjective Pain of the Left Hip (PRE-OP L HIP CONVERSION TO L NICOLASA , PATIENT RESIDES AT 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 Per her primary care physician recommendations she underwent coronary angiogram. This showed mild three-vessel coronary disease and the recommendation for her test cell technician was to be on aspirin, statin, and [...] Anxiety Arthritis Chronic kidney disease Dysphagia Epilepsy ([facility]) GERD (gastroesophageal reflux disease) Hyperlipidemia Hypertension Major depressive disorder Osteoarthritis Peripheral vascular disease ([facility]) Rectal prolapse Objective General: Body [...] to provide a note (more content not included)...[facility]07-30-2024 NoteHNO ID: [id number] Author: TAI HINOJOSA MD Service: ? Author Type: Physician Type: Progress Notes Filed: 11/12/2023 11:37 Note Text: November 12, 2023 Tai Hinojosa MD [address] / [address] [address] Esteban Garza MD ([facility]) [address] [place] [address] Melanie Espinoza : 1955 Interval History: Melanie [...] Nerves: audible voice volu (more content not included)...[facility]07-30-2024 History of Present illness Narrative* Tai Hinojosa MD - 11/12/2023 11:19 AM EDT November 12, 2023 Tai Hinojosa MD [address] / [address] [address] Esteban Garza MD ([facility]) [facility] [address] [place] [id number] Melanie Espinoza : 1955 Interval History: Melanie [...] times a day. Take 3 tablets by mouth3 times a day. mirtazapine (REMERON) 15 mg tablet Take 15 mg by mouth daily at bedtime. cyclobenzaprine (FLEXERIL) 10 mg tablet guaiFENesin-dextromethorphan (ROBITUSSIN DM) 100-10 mg/5 mL syrup Take 10 mL by mouth every 6 hoursas needed. levothyroxine (SYNTHROID) 75 mcg tablet traZODone [...] on the day of service, which included ztaf-cp-adyh patient care, completing clinical documentation, obtaining and/or reviewing separately obtained history, performing a medically appropriate examination, counseling and educating the patient/family/caregiver, and ordering medications, tests, or procedures. Thank you for including me in the care of this interesting patient. Tai Hinojosa MD Staff Neurologist [facility] Cc: documented in [facility]St. [facility] NoteCardiovascular Laboratory Report FINAL IMPRESSIONS: Mild three-vessel coronary artery [...] left radial artery was obtained. A 6 Kyr[place] glide sheath was inserted without difficulty. Bilateral [...] 30% stenoses. INDICATIONS: Abnormal stress test, preoperative evaluationC[facility]06-05-2024 NoteBelle[facility] Note Reason for cardiology [...] Lexiscan nuclear stress test at [facility] which did not show definite perfusion defect [...] states that her blood pressure at the snf go sometimes up to 200s and sometimes it send normal in the 130s. She used to smoke half pack per day for about 10 years however she quit in the . Regarding family history her father secondary to [place] at age 74 and her mother secondary [...] Take 1 ta (more content not included)... [facility]06-05-2024 NoteNew patient here to establish care. She needs cleared for hip surgery with Dr. Kan at [facility], scheduled for 10/11/2023. She had stress test last week. She denies all cardiac symptoms, such as chest pain, SOB, palpitations, lightheadedness/syncope. Review of Systems Musculoskeletal: Positive for arthritis, back pain, joint pain and muscle weakness. Neurological: Positive for tremors. All other systems reviewed and are negative.[facility] 08-13-2023 NoteCALLED AND SPOKE WITH RUSSEL NEVAREZ RN IN R/T PATIENTS MEDICAL CLEARANCE FOR UPCOMING SURGERY ON 08/25 AND PER RN PATIENT IS NOT CLEARED, PCP HAS ORDERED CARDIAC WORKUP D/T ABNORMAL EKG. PATIENT NEEDS SURGERY RESCHEDULED TO END OF SEPTEMBER. SURGERY RESCHEDULED TO 10/10 AND PRE-OP KARIE;T ON 09/25[facility]03-29-2024 History of Present illness Narrative* Alexey Polo DO - 07/12/2023 11:59 PM EDT Patient Name: Melanie Espinoza Date of : 1955 Date of Service: 07/12/2023 Facility: [facility] Type of Visit: Subsequent Visit Subjective Melanie Espinoza is a 68 y.o. female seen today at assisted facility for regular visit. No new problems reported by staff or patient. Her hip surgery was moved up to August which she is happy about. She is ambulating in a wheelchair. She has pain but it is adequately controlled. Allergies: Erythromycin and Clarithromycin Code Status: [facility] BP 122/62 Wt 42.6 kg (94 lb) [...] BY: Alexey Polo DO documented in this encounterMary [facility]24 NoteOrthopedic Surgery Subjective Pain of the Left Hip [...] Major depressive disorder Osteoarthritis Peripheral vascular disease (CMS/[facility]) Rectal prolapse Objective General: Body [...] additional personal documentation from me. I, Ernesto Kan, personally performed the face to face evaluation on this patient. I discussed with the patient and confirmed the accuracy and completeness of the aforementioned history prepared by the jeannette practice provider, and I personally performed the [...] ensure accurate documentation. Additional Comments: none Ernesto Kan MD 07/04/23 2:18 [facility]24 NoteHNO ID: [id number] Author: SATYA LIAO RN Service: ? Author Type: Registered Nurse Type: Progress Notes Filed: 06/28/2023 10:15 Note Text: ACM MOHINDER RN Reason for review or outreach: Medication Adherence review per request of payer Medication Adherence Review Details: Cholesterol FYI / ACTION REQUEST: Patient identified by name and date of Summary/Findings of review: Patient is seeing Non-[facility] PCP at [facility] Family Medicine Patient Attributed To: QAE Payer: [facility] Action Taken: Data submitted to Payer Other Contact made with patient: No, Chart review only. Signature: Satya Liao RNLima [facility]03-[facility]24 History of Present illness Narrative* Satya Liao RN - 06/28/2023 9:59 AM EDT MARVIN VINES RN Reason for review or outreach: Medication Adherence review per request of payer Medication Adherence Review Details: Cholesterol FYI / ACTION REQUEST: Patient identified by name and date of Summary/Findings of review: Patient is seeing Non-[facility] PCP at [facility] Patient Attributed To: QAE Payer: [facility] Action Taken: Data submitted to Payer Other Contact made with patient: No, Chart review only. Signature: Satya Liao RN documented in this encounterSt. Charles Hospital03-15-2024 NotePatient Outreach (NETNAV) MELANIE ESPINOZA ([id number]) 1955 F Date Time Provider Department 06/28/23 SATYA LIAO During your visit today, we recorded the following information about you: Satya Liao RN 06/28/2023 10:15 AM Signed MARVIN VINES RN Reason for review or outreach: Medication Adherence review per request of payer Medication Adherence Review Details: Cholesterol I / ACTION REQUEST: Patient identified by name and date of Summary/Findings of review: Patient is seeing Non-CCF PCP at [facility] Patient Attributed To: QAE Payer: [employer] [place] Action Taken: Data submitted to Payer Other Contact made with patient: No, Chart review only. Signature: Satya Liao RN Allergies As of Date: 06/28/2023 Noted Allergy Reaction ERYTHROMYCIN 05/14/2023 16 - Unknown Date Reviewed: 05/14/2023 Reviewed by: Kaylen French MA - Fully Assessed Reason for Visit: MARVIN VINES RN [[id number]] Cmt: Medication Adherence review per [...] (None) Encounter Status:Closed by SATYA LIAO on 06/28/23[facility] 06-12-[facility] History of Present illness Narrative* Alexey Polo, DO - 06/12/2023 6:10 PM EST Patient Name: Melanie Espinoza Date of : 1955 Date of Service: 06/12/2023 Facility: [facility] Type of Visit: Subsequent Visit Subjective Melanie Espinoza is a 68 y.o. female seen today at assisted facility for monthly visit. Resident fell 2 weeks. She was found on floor next to her bed and the side rail was down. She somehow got her siderail down and ended up on the floor. She did not have any injuries. She was supposed to see ortho tomorrow about getting her hip replaced but our bull driver is sick and it has to be rescheduled. She is now ambulating with a wheelchair at all times and calling for assistance to transfer. She is using clonazepam with benefit. She doesn't have any side effects.I did receive a letter about it and they were only going to give a temporary supply due to quantity limits. Allergies: Erythromycin and Clarithromycin Code Status: [facility] BP 166/84 Pulse 96 Temp 36.6 C [...] BY: Alexey Polo DO documented in this encounterSpringfield HospitalConvio01-30-2024 NoteHNO ID: [id number] Author: TAI HINOJOSA MD Service: ? Author Type: Physician Type: Progress Notes Filed: 05/14/2023 16:40 Note Text: May 14, 2023 Tai Hinojosa MD [place] [id number] [facility] / [address] [address] Esteban Garza MD ([facility]) [address] [place] [place] [address] Melanie Espinoza : 1955 Interval History: Melanie Espinoza is a 67 year old woman with a 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 The patient is seen with a bull driver. Her symptoms persist. Increasing the clonazepam [...] to Austedo a (more content not included)... [facility]01-30-2024 History of Present illness Narrative* Alexey Polo, - 05/14/2023 12:12 PM EST Patient Name: Melanie Espinoza Date of : 1955 Date of Service: 05/14/2023 Facility: [facility] Type of Visit: Subsequent Visit Subjective Melanie Espinoza is a 67 y.o. female seen today at assisted facility for monthly visit. Melanie returned from the hospital where she was treated for anemia. Her HBG was 6. She received 2 units PRBCs. She is feeling better. She has no known source of bleeding. They didn't tell her where she was bleeding from like stomach or GI tract.she has a known iron deficiency anemia. She doesn't eatmuch red meat. She was placed on iron supplement. She was also found to have a broken screw from her right shoulder replacement. She is going to see her ortho about that and has an appointment in May in [place] for possible hip replacement. Her right shoulder aches . She has an appointment with her neurologist this afternoon. She has no new problems. Allergies: Erythromycin and Clarithromycin Code Status: [facility] BP 129/77 Pulse 82 Temp 37.6 C (99.6 F) Resp 18 Wt 43.5 kg (95 lb 12.8 oz) SpO2 95% BMI16.97 kg/m Physical Exam Vitals reviewed. Constitutional: General: [...] BY: Alexey Polo DO documented in this encounterMary Rutan Hospital12-28-2023 History of Present illness Narrative* Alexey Polo DO - 04/11/2023 11:59 PM EST Patient Name: Melanie Espinoza Date of : 1955 Date of Service: 04/11/2023 Facility: [facility] Type of Visit: Subsequent Visit Subjective Melanie Espinoza is a 67 y.o. female seen today at assisted facility for monthly visit. Melanie is having a lot of hip pain and has an appointment for ortho coming up to discuss hip replacement. had a fall recently and had to be sent to the ER. There were no fractures. She is back and hasno new problems. Allergies: Erythromycin and Clarithromycin Code Status: [facility] BP 132/64 Temp 36.6 C (97.9 F) [...] BY: Alexey Polo DO documented in this encounterPremier Health Upper Valley Medical CenterRed Carrots Studio [facility] [id number] NoteOrthopedic Surgery Subjective Pain of the Left Hip [...] to clinic 3 weeks with the dean Torrse MD Orthopaedic Surgery 04/04/23 12:44 PMC[facility]11-20-2023 NoteHPI *Left hip Reported by patient. Location: left Quality: increasing Severity: moderate to severe pain Context: walker Aggravating Factors: cannot identify Associated Symptoms: no redness; no warmth; no ecchymosis; no drainage; no swelling; no fever; no chills; no calf pain Previous Surgery: surgical procedure: Prior Imaging: x ray ORIF left hip fx [id number] ORIF LT HIP ROS Patient reports no [...] left hip OA/AVN Plan [facility]-26-2023 NoteHNO ID: [id number] Author: Tai Hinojosa MD Service: ? Author Type: Physician Type: Progress Notes Filed: 01/08/2023 2:41 PM Note Text: January 08, 2023 Tai Hinojosa MD [address] / [place] [id number] Esteban Garza MD ([facility]) [address] [place] [address] Melanie Espinoza : 1955 Interval History: Melanie [...] 150/72, pulse 83, h (more content not included)...[facility]03-06-2023 Evaluation note* Encounter Date Diagnosis Assessment Notes Treatment Notes Treatment Clinical Notes Jun, Tear of right rotator cuff, unspecified tear extent, unspecified whether traumatic (ICD-10 - M75.101) Jun, Arthritis of right glenohumeral joint (ICD-10 - M19.011) Xrays were reivewed with patient in detail. Patient is progressing well from surgery. We discussed the importance of continuing motion and strength exercise. Jun, Status post reverse total arthroplasty of right shoulder (ICD-10 - Z96.611) [employer] Other 10-17-2022 Evaluation note* Encounter Date Diagnosis [...] exercises, these were demonstrated. Call with questions/concerns. [employer] Other 09-20-2022 Instructions* Patient Instructions* Tai Hinojosa MD - 01/02/2022 9:43 AM EDT 1) Double the dose of Austedo to 12 mg twice a day for 1 month, then increase further to 18 mg 2) continue clonazepam and methocarbamol 3) continue primidone for the action tremor documented in this encounterSt. [facility] Hospital09-20-2022 History of Present illness Narrative* Tai Hinojosa MD - 01/02/2022 9:25 AM EDT January 02, 2022 Tai Hinojosa MD [address] / [address] [address] Esteban Garza MD ([facility]) [address] [place] [address] Melanie Espinoza : 1955 Interval History: Melanie [...] on the day of service, which included [id number]-wedi patient care, completing clinical documentation, obtaining and/or reviewing separately obtained history, performing a medically appropriate examination, counseling and educating the patient/family/caregiver, and ordering medications, tests, or procedures. Thank you for including me in the care of this interesting patient. Tai Hinojosa MD Staff Neurologist [facility] Cc: documented in this encounterSt. 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 Her sodium is within normal limit. Continue fluid restriction. Nov, HTN (hypertension) (ICD-10 - I10) Blood pressure is high today but usually well controlled at the snf. Continue current medications. Nov, Hydronephrosis (ICD-10 - N13.30) She reported that she was seen by neurologist and had extensive work-up done. She was advised intervention needed. Nov, Dyslipidemia (ICD-10 - E78.5) Continue statins. Continue follow with PCP for LFTs and lipid profile monitoring. [employer] Other 08-22-2022 Evaluation note* Encounter Date Diagnosis [...] arthroplasty of right shoulder (ICD-10 - Z96.611) [employer] Other 07-14-2022 Evaluation note* Encounter Date Diagnosis [...] on her own. Call with questions/concerns . [employer] Other 07-05-2022 Evaluation note* Encounter Date Diagnosis Assessment Notes Treatment Notes Treatment Clinical Notes Oct, History of reverse total replacement of right shoulder joint (ICD-10 - Z98.890) [employer] Other 06-06-2022 Evaluation note* Encounter Date Diagnosis Assessment Notes Treatment Notes Treatment Clinical Notes Sep, Status post reverse total arthroplasty of right shoulder (ICD-10 - Z96.611) [employer] Other 03-30-2022 Miscellaneous Notes* Telephone Encounter - [...] 07/12/2021 12:53 PM EDT Donita calling from [facility] States the pt received a letter from insurance company that medication Austedo 6 mg was denied. Will need prior authorization. Can you please assist with PA. [place] requesting that once PA approved to fax to them at [phone]. Thanks. * Telephone Encounter - Kailey Andrews - 07/12/2021 11:08 AM EDT Patient called and would like to know if the doctor can reach out to the insurance company to do a prior auth for Austedo 6mg to receive medication.Please advise Thank you, Kailey documented in this encounterSt. Charles Hospital03-17-2022 NotePROCEDURE: XR SHOULDER RT 2V or [...] authenticated by: CM RAMIREZ Date: 2021-06-29 14:37[facility]02-15-20[facility] Evaluation note* Encounter Date Diagnosis Assessment Notes [...] pain of right shoulder (ICD-10 - M25.511) [employer] Other 12-08-2021 Evaluation note* Encounter Date Diagnosis [...] stated that she has an appointment with criminalist technician to check her thyroid. She follow-up with her family doctor as well. 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 documented in this encounter [facility]* Diagnosis Iron deficiency anemia, unspecified iron deficiency anemia type- Primary S/P reverse total shoulder arthroplasty, right Multifactorial gait disorder Abnormality of gait Osteoarthritis of left hip, unspecified osteoarthritis type documented in this encounter [facility]* Diagnosis Primary osteoarthritis of left hip- Primary Tardive dyskinesia Subacute 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 Primary hypertension Unspecified essential hypertension documented in this encounter [facility] note* Diagnosis Primary osteoarthritis of left hip- Primary Primary hypertension Unspecified essential hypertension documented in this encounter [facility] note* Diagnosis 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* Diagnosis Aftercare following left hip joint replacement surgery- Primary Multifactorial gait disorder Abnormality of gait Hypo-osmolality and hyponatremia Hypocalcemia Hypokalemia Hypopotassemia SIADH (syndrome of inappropriate ADH production) ([facility]) Other disorders of neurohypophysis documented [facility] encounter [facility] Diagnosis Primary osteoarthritis of left hip- Primary Aftercare following left hip joint replacement surgery Primary hypertension Unspecified essential hypertension SIADH (syndrome of inappropriate ADH production) ([facility] Other disorders of neurohypophysis Multifactorial gait disorder Abnormality of gait [facility]* Diagnosis Aftercare following left hip joint replacement surgery- Primary Multifactorial gait disorder Abnormality of gait Primary osteoarthritis of left hip Primary hypertension Unspecified essential hypertension 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 SIADH (syndrome of inappropriate ADH production) ([facility] Other disorders of neurohypophysis documented in this encounter [facility]* Diagnosis SIADH (syndrome of inappropriate ADH production) ([facility] Primary Other disorders of neurohypophysis Localized osteoarthritis of right shoulder Primary hypertension Unspecified essential hypertension [facility]* Diagnosis Onset Date Resolution Status History of reverse total rep lacement of right shoulder joint acute [id number] acute History of revision of total shoulder arthroplasty [facility] Work Phone: Evaluation note* Diagnosis Aftercare following right shoulder joint replacement surgery- Primary Localized osteoarthritis of right shoulder SIADH (syndrome of inappropriate ADH production) ([facility] Other disorders of neurohypophysis Primary hypertension Unspecified essential hypertension [facility]* Diagnosis Localized osteoarthritis of right shoulder- Primary S/P reverse total shoulder arthroplasty, right documented in this encounter [facility]* Diagnosis Localized osteoarthritis of right shoulder- Primary Aftercare following right shoulder joint replacement surgery S/P reverse total shoulder arthroplasty, right Primary hypertension Unspecified essential hypertension documented in this encounter [facility]* Diagnosis Aftercare following right shoulder joint replacement surgery- Primary Multifactorial gait disorder Abnormality of gait Movement 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 documented in this encounter [facility]* Diagnosis Aftercare following right shoulder joint replacement surgery- Primary Witnessed apneic spells Movement 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 documented in this encounter [facility]* Diagnosis Primary hypertension- Primary Unspecified essential hypertension SIADH (syndrome of inappropriate ADH production) ([facility]) Other disorders of neurohypophysis Sleep disorder breathing Other sleep disturbances documented in this encounter [facility]* Diagnosis Acquired hypothyroidism (CMS/HCC)- Primary Unspecified hypothyroidism Movement 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 documented in this encounter [facility] HealthcareHistory general Narrative - Reported* Type Description Date Medical History hypothyroidism Medical History anxiety and depression 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 Surgical History tubal revision 1984 Surgical History HIP FRACTURE 02/2020 Surgical History COLONSCOPY 2020 Surgical History RECTAL PROLAPSE 12/2020 Hospitalization History SEE ABOVE Hospitalization History RECTAL PROLAPSE 12/2020 [employer] Other History general Narrative - Reported* Type Description Date Medical History hypothyroidism Medical History anxiety and depression 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 Surgical History tubal revision 1984 Surgical History HIP FRACTURE 02/2020 Surgical History COLONSCOPY 2020 Surgical History RECTAL PROLAPSE 12/2020 Surgical History right reverse total shoulder 20 22 Hospitalization History SEE ABOVE Hospitalization History RECTAL PROLAPSE 12/2020 [employer] Other InstructionsNot on filedocumented in this encounter [facility]ructionsNot on filedocumented in this encounter [facility] SystemInstructionsNot on filedocumented in this encounter [facility] SystemInstructionsNot on filedocumented in this encounter [facility] SystemInstructionsNot on filedocumented in this encounter [facility] SystemInstructionsNot on filedocumented in this encounter [facility] SystemInstructionsNot on filedocumented in this encounter [facility] SystemInstructionsNot on filedocumented in this encounter [facility] SystemInstructionsNot on filedocumented in this encounter [facility] Summary Purpose Family History Unknown Family Member [...] Heart disease Unknown sister Malignant neoplasm Unknown Relationship Condition Age at Onset Recorded Date/T jeferson mother Cerebrovascular disease Unknown Chronic obstructive pulmonary disease Unk nown Hypertension Unknown father Coronary artery disease Unknown Lymphoma Unknown brother Heart disease Unknown sister Malignant neoplasm Unknown father Unknown Heart disease Unknown Malignant neoplasm Unknown Myocardial infarction Unknown grandparent Unknown grandparent Malignant neoplasm Unknown Unknown mother Unknown History of stroke Unknown Relationship Condition Age at Onset Recorded Date/T jeferson mother Cerebrovascular disease Unknown Chronic obstructive pulmonary disease Unk nown Hypertension Unknown Unknown History of stroke Unknown father Coronary artery disease Unknown Lymphoma Unknown Myocardial infarction Unknown Malignant neoplasm Unknown brother Heart disease Unknown father Heart disease Unknown grandparent Unknown sister Unknown Advance Directives Advance Directive Response Recorded [...] PM DNR Comfort Care Arrest (DNR -CCA) [place] 01/07/2021 4:37 PM 01/08/2021 7:11 PM Full Code 12/23/2020 7:31 AM 12/26/2020 12:12 PM Date Activated Date Inactivated Comments 05/18/2022 5:36 PM 05/19/2022 9:18 PM Date Activated Date Inactivated Comments 02/04/2021 10:29 AM 02/06/2021 4:12 PM Date Activated Date Inactivated Comments 01/07/2021 4:37 PM 01/08/2021 7:11 PM Date Activated Date Inactivated Comments 12/23/2020 7:31 AM 12/26/2020 12:12 PM Chief Complaint and Reason for Visit Chief Complaint Shoulder pain Shoulder pain Shoulder pain Shoulder pain Shoulder pain Z96.611 M75.101 Chief Complaint OP SP RT SHOULDER PA IN CONCERN M25.511 - Pain in right shoulder Reason for Visit 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 [id number] Chief Complaint OP SP RT SHOULDER PA IN CONCERN M25.511 Z96.611 Shoulder pain T84.498A Reason for Visit 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 [id number] Chief Complaint OP SP RT SHOULDER PA IN CONCERN M25.511 Z96.611 Shoulder pain T84.498A Shoulder pain Shoulder pain Reason for Visit 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 [id number] History of revision of total shoulder arthroplasty Chief Complaint Admit Date OP SP RT SHOULDER PAIN CONCERN January 132023 9:23am M25.511 Z96.611 January 23, 2024 9 :25am Shoulder pain January 29, 2024 1 2:57pm T84.498A January 29, 2024 2 :08pm Shoulder pain February 12, 2024 1 1:55am Shoulder pain February 12, 2024 6 :19pm Z96.619 - Presence of unspecified artifi cial shoul February 24, 2024 7:46am 10-14 days post op February 24, 2024 9:13am Reason for Visit Admit Date History of reverse total rep lacement of right shoulder joint January 23, 2024 9:23am Other mechanical complicatio n of other internal orthopedic devices, implant January 23, 2024 9:23am History of revision of total shoulder ar throplasty February 12, 2024 11:55am History of reverse total rep lacement of right shoulder joint February 24, 2024 9:13am History of revision of total shoulder ar throplasty February 24, 2024 9:13am Other mechanical complicatio n of other internal orthopedic devices, implant February 24, 2024 9:13am Additional Source Comments INFORMATION SOURCE (unrecogn ized section and content) DATE CREATED AUTHOR 01/14/2020 [facility] DATE CREATED AUTHOR AUTHOR'S ORGANIZ ATION 02/23/2021 [facility] DATE CREATED AUTHOR AUTHOR'S ORGANIZ ATION 04/12/2021 [facility] DATE CREATED AUTHOR AUTHOR'S ORGANIZ ATION 09/26/2021 [facility] DATE CREATED AUTHOR AUTHOR'S ORGANIZ ATION 06/06/2022 [facility] DATE CREATED AUTHOR AUTHOR'S ORGANIZ ATION 09/11/2023 [facility] DATE CREATED AUTHOR AUTHOR'S ORGANIZ ATION 11/14/2023 [facility] DATE CREATED AUTHOR AUTHOR'S ORGANIZ ATION 01/20/2024 [facility] DATE CREATED AUTHOR AUTHOR'S ORGANIZ ATION 04/07/2024 [facility] REASON FOR VISIT (unrecogniz ed section and content) Reason Comments Insurance Authorization Reason Comments Follow Up Reason Onset Date Comments ACM MOHINDER RN 06/28/2023 Medication Ad herence review per request of payer Reason Comments Thyroid Problem Follow-up Care Teams (unrecognized sec tion and content) Team Status: Active Member Role Status Dates Alexey Polo DO Primary Care Provider Active Team Status: Active Member Role Status Dates Alexey Polo DO Primary Care Provider Active Start: December 24, 2023 Giorgio Fuller DO Attending Provider Active Sta rt: December 24, 2023 Team Status: Inactive Member Role Status Dates Alexey Polo DO Primary Care Provider Active Start: January 23, 2024 End: January 23, 2024 Stevenson Corbin MD Active Start: Jan End: January 23, 2024 Nickolas Hawthorne DO Attending Provider Active St art: January 23, 2024 End: January 23, 2024 Team Status: Active Member Role Status Dates Alexey Polo DO Primary Care Provider Active Start: January 23, 2024 Stevenson Corbin MD Attending Provider Active Star t: January 23, 2024 Team Status: Inactive Member Role Status Dates Alexey Polo DO Primary Care Provider Active Stevenson Corbin MD Attending Provider Active Team Status: Inactive Member Role Status Dates Stevenson Corbin MD Attending Provider Active Alexey Polo DO Primary Care Provider Active Clinical Data Associate Relationship Specialty Start Date End Date Esteb[place] [address] PCP - General Family Practice 07/21/18 Clinical Data Associate Relationship Specialty Start Date End Date Naderer, Esteban A [address] [place] [address] PCP - General Family Medicine 07/21/18 Clinical Data Associate Relationship Specialty Start Date End Date ChristAlexey [address] [place] [address] PCP - General Family Medicine 03/27/22 Clinical Data Associate Relationship Specialty Start Date End Date Alexey Polo Jose [address] [place] [address] PCP - General Family Medicine 03/27/22 Clinical Data Associate Relationship Specialty Start Date End Date Esteban Garza [address] [place] [address] PCP - General Family Medicine 07/21/18 Clinical Data Associate Relationship Specialty Start Date End Date Jose Poloconcepción Garcia [address] [place] [address] PCP - General Family Medicine 03/27/22 Clinical Data Associate Relationship Specialty Start Date End Date Esteban Garza [address] [place] [address] PCP - General Family Medicine 07/21/18 Clinical Data Associate Relationship Specialty Start Date End Date Alexey Polo Jose [address] [place] [address] PCP - General Family Medicine 03/27/22 Clinical Data Associate Relationship Specialty Start Date End Date Alexey Polo DO [address] [place] [address] PCP - [facility] Medicine 03/27/22 Clinical Data Associate Relationship Specialty Start Date End Date Alexey Polo DO [address], [place] [address] PCP - [facility] 03/27/22 Team Status: Inactive Member Role Status Dates Alexey Polo DO Primary Care Provider Active Start: January 23, 2024 End: January 23, 2024 Stevenson Corbin MD Attending Provider Active Star t: January 23, 2024 End: January 23, 2024 Team Status: Inactive Member Role Status Dates Alexey Polo DO Primary Care Provider Active Start: January 29, 2024 End: January 29, 2024 Nickolas Hawthorne , Attending Provider Active St art: January 29, 2024 End: January 29, 2024 Team Status: Active Member Role Status Dates Alexey Polo DO Primary Care Provider Active Start: January 29, 2024 Nickolas Hawthorne DO Attending Provider Active St art: January 29, 2024 Clinical Data Associate Relationship Specialty Start Date End Date Alexey Polo DO [address], [place] [address] PCP - [facility] 03/27/22 Team Status: Inactive Member Role Status Dates Alexey Polo DO Primary Care Provider Active Start: February 12, 2024 End: February 13, 2024 Nickolas Hawthorne DO Attending Provider Active St art: February 12, 2024 End: February 13, 2024 Team Status: Active Member Role Status Dates Alexey Polo DO Primary Care Provider Active Start: February 12, 2024 Nickolas Hawthorne DO Attending Provider, Other Provider Active Start: February 12, 2024 Team Status: Active Member Role Status Dates Alexey Polo DO Primary Care Provider Active Start: February 24, 2024 Nickolas Hawthorne DO Attending Provider Active St art: February 24, 2024 Team Status: Inactive Member Role Status Dates Alexey Polo Primary Care Provider Active Start: February 24, 2024 End: February 24, 2024 Nickolas Hawthorne DO Attending Provider Active St art: February 24, 2024 End: February 24, 2024 Clinical Data Associate Relationship Specialty Start Date End Date Alexey Polo DO [address] [place] [address] PCP - General Family Medicine 03/27/22 Clinical Data Associate Relationship Specialty Start Date End Date Alexey Polo DO [address], [place] [address] PCP - General Family Medicine 03/27/22 Clinical Data Associate Relationship Specialty Start Date End Date Esteban Garza MD [address] [place] [id number] PCP - General Family Medicine 03/24/24 Clinical Data Associate Relationship Specialty Start Date End Date Esteban Garza MD [address] [place] [id number] PCP - General Family Medicine 03/24/24 Source Comments (unrecognize d section and content) In the event this informatio n is protected by the Federal Confidentiality of Alcohol and Drug Abuse Patient Records regulations: The Federal rules restrict any use of the information to criminally investigate or prosecute any alcohol or drug abuse patient.[facility] the event this information is protected by the Federal Confidentiality of Alcohol and Drug Abuse Patient Records regulations: The Federal rules restrict any use of the information to criminally investigate or prosecute any alcohol or drug abuse patient.[facility] the event this information is protected by the Federal Confidentiality of Alcohol and Drug Abuse Patient Records regulations: The Federal rules restrict any use of the information to criminally investigate or prosecute any alcohol or drug abuse patient.[facility] the event this information is protected by the Federal Confidentiality of Alcohol and Drug Abuse Patient Records regulations: The Federal rules restrict any use of the information to criminally investigate or prosecute any alcohol or drug abuse patient.[facility] Goals (unrecognized section and content) Goals [...] BE BASED ON THE PRIMARY CLINICAL RECORDS. [facility] [employer] [facility]. provides no warranty or guarantee of the accuracy or completeness of information in this document.
== END 2024-05-06 20:02 | disposition home or self-care (01) ==
LOC: SLEEP 20:14
PROVIDERS: PCP Family Medicine; Visit Provider Family Medicine
DX: G47.33 Obstructive sleep apnea (adult) (pediatric) (principal)
CPT/HCPCS: 95810

== ENCOUNTER 2024-12-01 20:53 | Emergency (ER) | payer MEDICARE, MEDICAID, SELFPAY ==
[2024-12-01 20:57] VITALS: BP 137/76; PULSE 54; TEMP 36.7; O2SAT 94; BMI 17.6
--- NOTE | 2024-12-01 21:00 | XR_ITS ---
[facility] [place] [id number] Patient Name: APTTY ROSE MRN: [id number] date: 1955 Sex: F Assigned Patient Location: ER Current Patient Location: ED.MAIN Accession/Order Number: [id number] Exam Date: 12/01/2024 22:01 Report Date: 12/01/2024 22:03 At the request of: HALLIE CRAWLEY MD Procedure: XR knee RT 3V 3 views right knee plain film COMPARISON: 09/07/2020 HISTORY: Right knee pain. Limited range of motion. ACUTE FINDINGS: No acute findings DEGENERATIVE CHANGE: Extensive patellofemoral degeneration. Moderate medial lateral degenerative changes. SOFT TISSUE FINDINGS: Unremarkable JOINT EFFUSION: Moderate POSTOP CHANGES: None BONE MINERALIZATION: Decreased XR/XR knee RT 3V IMPRESSION: Extensive degenerative changes with moderate joint effusion. Moderate progression Impression dictated by: Erick Carranza M.D. 12/01/2024 10:03 PM Dictation Location: [place] [address] Electronically authenticated by: [id number] Y Date: 12/01/2024 22:03
--- NOTE | 2024-12-01 21:01 | ED.GENADUL1 ---
HPI HPI - General Adult General Chief complaint: Extremity Problem, Nontraumatic Stated complaint: WEAKNESS Time Seen by Provider: 12/01/24 20:59 History of Present Illness HPI narrative: 69-year-old female presented to the emergency department for a chief complaint of pain to her right knee. She states she rolled over in bed and felt a popping sensation in it. She has had problems with this knee previously. The pain is moderate to severe and she was transported here by paramedics with her knee splinted. This happened just before coming into the emergency department. Related Data Home Medications ?Medication ?Instructions ?Recorded ?Confirmed amlodipine 10 mg tablet 10 mg PO Q24H 04/03/23 12/24/23 atorvastatin 40 mg tablet 40 mg PO Q24H 04/03/23 12/24/23 buspirone 10 mg tablet 10 mg PO Q12H 04/03/23 12/24/23 calcium 600 mg (as 1 tab PO BID 04/03/23 12/24/23 carbonate)-vitamin D3 10 mcg (400 unit) tablet (Calcium with Vitamin D) clonazepam 0.5 mg tablet 0.5 mg PO Q8H 04/03/23 12/24/23 cyclobenzaprine 10 mg tablet 10 mg PO Q8H 04/03/23 12/24/23 deutetrabenazine 12 mg tablet 12 mg PO Q12H 04/03/23 12/24/23 (Austedo) dextromethorphan-guaifenesin 10 10 ml PO Q6H 04/03/23 05/11/23 mg-100 mg/5 mL oral syrup fluticasone propionate 50 1 spray intranasal Q24H 04/03/23 12/24/23 mcg/actuation nasal spray,suspension gabapentin 300 mg capsule 300 mg PO Q12H 04/03/23 12/24/23 gabapentin 600 mg tablet 600 mg PO Q24H 04/03/23 12/24/23 loperamide 2 mg capsule 2 mg PO Q6H PRN loose stool 04/03/23 05/11/23 (Anti-Diarrheal (loperamide)) pantoprazole 40 mg tablet,delayed 40 mg PO DAILY 04/03/23 12/24/23 release (Protonix) polyethylene glycol 3350 17 17 g PO DAILY 04/03/23 05/11/23 gram/dose oral powder (Miralax) primidone 50 mg tablet 250 mg PO Q24H 04/03/23 12/24/23 sucralfate 1 gram tablet 1 g PO Q6H 04/03/23 05/11/23 trazodone 100 mg tablet 100 mg PO Q24H 04/03/23 12/24/23 alendronate 70 mg tablet 70 mg PO .weekly 12/24/23 12/24/23 aspirin 325 mg capsule 325 mg PO BID 12/24/23 12/24/23 carbamazepine 200 mg tablet 200 mg PO Q8H 12/24/23 12/24/23 metoprolol succinate 50 mg 50 mg PO DAILY 12/24/23 12/24/23 tablet,extended release 24 hr mirtazapine 15 mg tablet 15 mg PO .hs 12/24/23 12/24/23 sodium chloride 1 gram tablet 1,000 mg PO DAILY 12/24/23 12/24/23 Previous Rx's ?Medication ?Instructions ?Recorded ferrous sulfate 325 mg (65 mg 325 mg PO BID 30 days #60 tabs 05/12/23 iron) tablet levothyroxine 100 mcg tablet 100 mcg PO ACB 30 days #30 tabs 05/12/23 acetaminophen 300 mg-codeine 30 mg 1 tab PO Q6H PRN pain 5 days #20 12/01/24 tablet tabs Allergies Allergy/AdvReac Type Severity Reaction Status Date / Time erythromycin base AdvReac Mild Hives Verified 12/01/24 20:57 Opioid HPI Opioid Management Most Recent Opioid Data: Last Pain Scale 20 Today, 21:01 Ur Phencyclidine Scrn, (NEGATIVE) Negative 10/24/23, 07:09 Review of Systems ROS Narrative A ten point review of systems is negative except as noted above. [facility] Medical History (Updated 12/01/24 @ 22:13 by Jose Alberto Deshpande MD) Anxiety ?F41.9 - Anxiety disorder, unspecified (ICD-10) Hyperlipidemia ?E78.5 - Hyperlipidemia, unspecified (ICD-10) Chronic hyponatremia ?E87.1 - Hypo-osmolality and hyponatremia (ICD-10) Rectal prolapse ?K62.3 - Rectal prolapse (ICD-10) Tremors of nervous system ?R25.1 - Tremor, unspecified (ICD-10) Tardive dyskinesia ?G24.01 - Drug induced subacute dyskinesia (ICD-10) Hypertension ?I10 - Essential (primary) hypertension (ICD-10) Surgical History H/O tubal ligation ?Z98.51 - Tubal ligation status (ICD-10) Family History Father Family history of cancer Family history of myocardial infarction Family history of hypertension Sister Family history of cancer Mother Family history of stroke Family history of hypertension Social History Within the past year, how often did you have a drink containing alcohol: never Score interpretation: A score less than 3 is consistent with normal alcohol consumption. Smoking status: Former smoker Non-prescribed substance use: denies use Highest level of school completed/degree received: high school graduate Little interest or pleasure in doing things: not at all Feeling down, depressed, or hopeless: not at all Exam Narrative Exam Narrative: Nurses note and vital signs reviewed and patient is not hypoxic. General: The patient appears in no apparent distress. Right leg is splinted. Skin: Warm, dry, no pallor noted. There is no rash noted. Head: Normocephalic, atraumatic Eye: Normal conjunctiva, no drainage Ears, Nose, Mouth, and Throat: oral mucosa is moist. Nares patent. Cardiovascular: Regular Rate and Rhythm Respiratory: Patient is in no distress, no accessory muscle use, lungs are clear to auscultation, no wheezing, rales or rhonchi Back: non-tender GI: Soft and nontender Musculoskeletal: The right knee skin is intact. There is no erythema or bruising. She has what appears to be chronic changes from arthritis. The ankle and hip are nontender. Neurological: Awake and alert Psychiatric: Cooperative Constitutional Vital Signs, click to edit/add: Last Vital Signs Temp 98.0 F 12/01/24 20:57 Pulse 54 L 12/01/24 20:57 Resp 19 12/01/24 20:57 BP 137/76 12/01/24 20:57 Pulse Ox 94 L 12/01/24 20:57 O2 Del Method Room Air 12/01/24 20:57 Course Vital Signs Vital signs: Vital Signs Temperature 98.0 F 12/01/24 20:57 Pulse Rate 54 L 12/01/24 20:57 Respiratory Rate 19 12/01/24 20:57 Blood Pressure 137/76 12/01/24 20:57 Pulse Oximetry 94 L 12/01/24 20:57 Oxygen Delivery Method Room Air 12/01/24 20:57 Temperature 98.0 F 12/01/24 20:57 Pulse Rate 54 L 12/01/24 20:57 Respiratory Rate 19 12/01/24 20:57 Blood Pressure 137/76 12/01/24 20:57 Pulse Oximetry 94 L 12/01/24 20:57 Oxygen Delivery Method Room Air 12/01/24 20:57 Medical Decision Making MDM Narrative Medical decision making narrative: X-ray shows degenerative changes and effusion. I do not suspect that this is an acute effusion. Aneesh wrap applied, application checked by me and found to be appropriate, she is neurovascular intact. She is referred to orthopedics and was prescribed Tylenol 3. Treatment diagnosis and follow-up were discussed with the patient. Differential Diagnosis Differential Diagnosis: Knee sprain, arthritis Imaging Data Knee x-ray: Radiologist's impression: ITS Impressions Knee X-Ray 12/01/24 21:00 IMPRESSION: Extensive degenerative changes with moderate joint effusion. Moderate progression Impression dictated by: Erick Carranza M.D. 12/01/2024 10:03 PM Dictation Location: [employer] Electronically authenticated by: [id number] Y Date: 12/01/2024 22:03 Discharge Plan Discharge Chief Complaint: Extremity Problem, Nontraumatic Clinical Impression: Knee pain, right Patient Disposition: Home, Self-Care Time of Disposition Decision: 22:13 Condition: Good Mode of Transportation: Private Vehicle Prescriptions / Home Meds: New acetaminophen-codeine 300-30 mg tablet 1 tab PO Q6H PRN (Reason: pain) 5 Days Qty: 20 0RF No Action levothyroxine 100 mcg Tablet 100 mcg PO ACB 30 Days Qty: 30 0RF ferrous sulfate 325 mg (65 mg iron) Tablet 325 mg PO BID 30 Days Qty: 60 0RF aspirin 325 mg capsule 325 mg PO BID carbamazepine 200 mg tablet 200 mg PO Q8H alendronate 70 mg tablet 70 mg PO .weekly metoprolol succinate 50 mg tablet extended release 24 hr 50 mg PO DAILY mirtazapine 15 mg tablet 15 mg PO .hs sodium chloride 1 gram tablet 1,000 mg PO DAILY amlodipine 10 mg tablet 10 mg PO Q24H atorvastatin 40 mg tablet 40 mg PO Q24H [place] 12 mg tablet 12 mg PO Q12H buspirone 10 mg tablet 10 mg PO Q12H clonazepam 0.5 mg tablet 0.5 mg PO Q8H cyclobenzaprine 10 mg tablet 10 mg PO Q8H fluticasone propionate 50 mcg/actuation spray,suspension 1 spray INTRANASAL Q24H gabapentin 300 mg capsule 300 mg PO Q12H gabapentin 600 mg tablet 600 mg PO Q24H primidone 50 mg tablet 250 mg PO Q24H sucralfate 1 gram tablet 1 g PO Q6H trazodone 100 mg tablet 100 mg PO Q24H pantoprazole [Protonix] 40 mg tablet,delayed release (DR/EC) 40 mg PO DAILY polyethylene glycol 3350 [Miralax] 17 gram/dose powder 17 g PO DAILY loperamide [Anti-Diarrheal (loperamide)] 2 mg capsule 2 mg PO Q6H PRN (Reason: loose stool) dextromethorphan-guaifenesin 10-100 mg/5 mL syrup 10 ml PO Q6H calcium carbonate-vitamin D3 [Calcium with Vitamin D] 600 mg-10 mcg (400 unit) tablet 1 tab PO BID Print Language: Latvian Instructions: Knee Pain (ED) Referrals: JOHN POLO [Primary Care Provider, Family Practice] - 1 week Thomas Turner DO [Physician, Orthopedics]
--- OUTSIDE RECORDS SUMMARY | 2024-12-01 21:39 | XMS_ITS | Encounter Summary ---
Author Organization [facility] Sys [facility] Address [id number] [address] [place] [address] Care Team Providers Care Collar Padder Blindstitch Name Role Phone Alexey Connor DO Primary Care Provider [phone] Encounter Details Date Type Department Care Team (Late st Contact Info) Description 01/29/2024 Orders Only [facility] Internal Medicine - Family Medicine [address] [place] [address] Alexey Connor DO [address], [facility] [place], [place] [id number] Social History Tobacco Use Types Packs/Day Years Used Date Smoking Tobacco: Former Cigarettes 0.5 20 1 972 - 1992 Smokeless Tobacco: Never Comments:Quit in the 90'S, S TARTED AGE 18 Alcohol Use Standard Drinks/Week Comments No 0 (1 standard drink = 0.6 oz pur e alcohol) Childcare Answer Date Recorded Childcare Unknown 09/24/2018 Employment Answer Date Recorded Employment Unknown 09/24/2018 Hunger Screening Answer Date Recorded Within the past 12 months we worried whether our food would run out before we got money to buy more. Never True 12/28/2022 Food Insecurity - Inability Not on file 12/14 Purpose - Life Answer Date Recorded Purpose and direction in life Unknown Comments No Sex and Gender Information Value Date Recorded Sex Assigned at Not on file Legal Sex Female 11:45 AM EDT Gender Identity Not on file Sexual Orientation Not on file documented as of this encounter Plan of Treatment Not on file documented as of this encounter Goals Goal Patient Goal Type Associated Problems Recent Progress Patient-Stated? Author go to [place] for therapy General Yes Ronit Sorensen LSW Note: Evaluation of progress towards goal: will DC from ED to SNF upon arrangements Long-Term Goals General Yes Amparo Nix LSW Note: Evaluation of progress towards goal: return to [facility] documented as of this encounter Procedures Procedure Name Priority Date/Time Associated Diagnosis Comments POCT URINALYSIS AUTO, W/O MICROSCOPY Routine 01/29/2024 3:24 PM EDT documented in this encounter Results * POCT Urinalysis Auto, W/O Microscopy (01/29/2024 3:24 PM EDT) us Alexey Connor DO POINT OF CARE TEST ORDERABLE S Final Result Performing Organization Address City/State/[facility] Co de Phone Number MANUALLY TRANSCRIBED RESULTS documented in this encounter Visit Diagnoses Not on filedocumented in this encounter Care Teams Collar Padder Blindstitch Relationship Specialty Start Date End Date Alexey Connor DO [address], [facility] [place] [place] [address] PCP - General Family Medicine 03/27/22 documented as of this encounter
--- OUTSIDE RECORDS SUMMARY | 2024-12-01 21:39 | XMS_ITS | Encounter Summary ---
Author Organization [facility] Address [address] [place] [address] Phone Care Team Providers Care Belt Loop Machine Operator Name Role Phone Alexey Connor DO Primary Care Provider Encounter Details Date Type Department Care Team (Late st Contact Info) Description 07/05/2020 Orders Only [facility] [address] [place] [address] Conversion, Onbase Social History Tobacco Use Types Packs/Day Years Used Date Smoking Tobacco: Never Assessed Comments Unknown Sex and Gender Information Value Date Recorded Sex Assigned at Not on file Legal Sex Female 8:26 PM EST Gender Identity Not on file Sexual Orientation Not on file documented as of this encounter Plan of Treatment Scheduled Orders Name Type Priority Associated Diagnoses Orde r Schedule OUTSIDE LAB SCAN Lab Ordered: 07/05/2020 OUTSIDE LAB SCAN Lab Ordered: 07/05/2020 documented as of this encounter Visit Diagnoses Not on filedocumented in this encounter Care Teams Belt Loop Machine Operator Relationship Specialty Start Date End Date Alexey Connor DO PCP - General 04/15/99 documented as of this encounter
--- OUTSIDE RECORDS SUMMARY | 2024-12-01 21:39 | XMS_ITS | Encounter Summary ---
Author Organization [facility] Sy tem Address [id number] [address] [place] [address] Care Team Providers Care District Or District Office Director Name Role Phone Alexey Connor Primary Care Provider + [phone] Encounter Details Date Type Department Care Team (Late st Contact Info) Description 09/11/2023 [facility] [address] [place] [address] External, Scanning Provider Social History Tobacco Use Types Packs/Day Years [...] Problems Recent Progress Patient-Stated? Author go to [place] for therapy General Yes Ronit Sorensen LSW Note: Evaluation of progress towards goal: will DC from ED to SNF upon arrangements Long-Term Goals General Yes Amparo Nix LSW Note: Evaluation of progress towards goal: return to [facility] documented as of this encounter Procedures Procedure Name Priority Date/Time Associated Diagnosis Comments NUC STRESS EXERCISE Routine 09/10/2023 3:44 PM EDT NUC STRESS EXERCISE Routine 09/10/2023 3:38 PM EDT documented in this encounter Visit Diagnoses Not on filedocumented in this encounter Care Teams District Or District Office Director Relationship Specialty Start Date End Date Alexey Connor DO [address] [facility], [place] [address] PCP - General Family Medicine 03/27/22 documented as of this encounter
--- OUTSIDE RECORDS SUMMARY | 2024-12-01 21:39 | XMS_ITS | Encounter Summary ---
Author Organization [facility] Sys tem Address [id number] [address] [place] [address] Care Team Providers Care Epic Willow Specialist Name Role Phone Alexey Connor DO Primary Care Provider [phone] Encounter Details Date Type Department Care Team (Late st Contact Info) Description 01/31/2024 Orders Only [facility] Internal Medicine - Family Medicine [address] [place] [address] Alexey Connor DO [address], [facility] [place], [place] [id number] Social History Tobacco Use Types Packs/Day Years [...] Problems Recent Progress Patient-Stated? Author go to [place] for therapy General Yes Ronit Sorensen LSW Note: Evaluation of progress towards goal: will DC from ED to SNF upon arrangements Long-Term Goals General Yes Amparo Nix LSW Note: Evaluation of progress towards goal: return to [facility] documented as of this encounter Visit Diagnoses Not on filedocumented in this encounter Care Teams Epic Willow Specialist Relationship Specialty Start Date End Date Alexey Connor DO [address], [facility] [address] PCP - General Family Medicine 03/27/22 documented as of this encounter
--- OUTSIDE RECORDS SUMMARY | 2024-12-01 21:39 | XMS_ITS | Clinical Summary ---
Author Organization [facility] Address [address] [place] [address] Care Team Providers Care Anode Builder Name Role Phone Alexey Connor DO Primary Care Provider [phone] Allergies Active Allergy Reactions Criticality Noted Date Comments Azithromycin 09/13/2021 Other reaction(s): Unknow Clarithromycin Nausea And Vomiting Low 02/03/2021 Erythromycin Other,Unknown Medium 07/23/2016 Erythromycin Base 10/09/2021 Other reaction(s): Unknown Reaction Medications atorvastatin (Lipitor) 40 mg tablet Take 1 tablet by mouth in the evening. Active busPIRone (Buspar) 10 mg tablet Take 15 mg by mouth in the morning and at bedtime. Active calcium carbonate 600 mg calcium (1,500 mg) tablet Take 600 mg by mouth in the morning. Active clonazePAM (KlonoPIN) 0.5 mg tablet Take 1-2 tablets by mouth at bedtime. Active cyclobenzaprine (Flexeril) 10 mg tablet Take 10 mg by mouth if needed in the morning, at noon, and at bedtime for muscle spasms. 3 Active fluticasone (Flonase) 50 mcg/actuation nasal spray 2 sprays by nasal (alternating) route 1 (one) time each day. 2 Active gabapentin (Neurontin) 300 mg capsule Take 300 mg by mouth in the morning and at bedtime. 1 Active gabapentin (Neurontin) 600 mg tablet at bedtime. 3 Active levothyroxine (Tirosint) 75 mcg capsule Take 75 mcg by mouth in the morning. Active pantoprazole (ProtoNix) 40 mg EC tablet Take 40 mg by mouth before breakfast. Active primidone (Mysoline) 50 mg tablet Take 50 mg by mouth in the morning and at bedtime. Active sodium chloride 1,000 mg tablet Take 1 g by mouth in the morning. Active traZODone (Desyrel) 100 mg tablet Take 100 mg by mouth at bedtime. 3 Active ferrous sulfate 325 (65 Fe) MG tablet Take 325 mg by mouth with breakfast. 2 Active loperamide (Imodium A-D) 2 mg tablet Take 2 mg by mouth every 6 (six) hours if needed for diarrhea. Active menthol (Biofreeze, menthol,) 4 % gel Apply 1 Application topically every 8 (eight) hours if needed. Active mirtazapine (Remeron) 15 mg tablet Take 15 mg by mouth at bedtime. Active metoprolol succinate XL (Toprol-XL) 25 mg 24 hr tabletIndicatio ns:Atherosclero sis of y[place] dehe coronary artery of yocha dehe heart without angina pectoris Take 1 tablet (25 mg) by mouth in the morning. Do not crush or chew. 30 tablet 4 Active Additional Information Patient taking differently:25 mg oral Daily,Do not crush or chew. Given with 50mg for a total of 75 mg, Reported on 08/07/2024 carBAMazepine (TEGretol) 200 mg tablet Take 200 mg by mouth three times daily. Active amLODIPine (Norvasc) 10 mg tablet 4 Active nitroglycerin (Nitrostat) 0.4 mg SL tablet 4 Active aspirin 81 mg EC tablet Take 81 mg by mouth in the morning. Active deutetrabenazin e 30 mg tablet extended release 24 hr Take 30 mg by mouth in the morning. Active alendronate (Fosamax) 70 mg/75 mL solution Take 70 mg by mouth every 7 (seven) days. Take in the morning with a full glass of water, on an empty stomach, and do not take anything else by mouth or lie down for the next 30 min. 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 chronic kidney disease stage V or end stage renal disease(404.12) 09/18/2023 Abnormal EKG 08/07/2023 Acute alteration in mental status 07/04/2023 07/04/2023 Depression 07/04/2023 07/04/2023 Hydronephrosis 07/04/2023 07/04/2023 Hypocalcemia 07/04/2023 07/04/2023 Hypokalemia 07/04/2023 07/04/2023 Hypophosphatemia 07/04/2023 07/04/2023 Disease characterized by destruction of skeletal muscle 07/04/2023 07/04/2023 Tardive dyskinesia 07/04/2023 07/04/2023 Osteoarthritis of left hip 05/14/202307/03 S/P reverse total shoulder arthroplasty, right 0 05/14/2023 07/04/2023 Avascular necrosis of bone of hip, left 04/09/20 Hiatal hernia 03/12/2023 07/04/2023 Primary osteoarthritis 10/19/2022 Hypoglycemia 09/14/2022 07/04/2023 SIADH (syndrome of inappropriate ADH production) 09/14/2022 07/04/2023 Nausea and vomiting 05/12/2022 07/04/2023 Movement disorder 03/23/2022 07/04/2023 Acquired hypothyroidism 03/23/2022 07/04/19 24 Anemia 03/23/2022 07/04/2023 Generalized anxiety disorder 03/23/2022 Generalized muscle weakness 03/23/2022 03/2 04/2023 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 Primary hypertension 03/23/2022 07/04/2023 Rectal prolapse 02/04/2021 07/04/2023 Chronic hyponatremia 12/23/2020 07/04/2023 Leg swelling 12/22/2020 07/04/2023 Pain of left hip joint 06/16/2020 Resolved Problems Problem Noted Date Diagnosed Date Resolved Date Abnormal stress test 09/18/2023 025 COVID-19 07/04/2023 07/04/2023 12/08/2023 Sepsis 07/04/2023 07/04/2023 12/08/2023 Closed fracture of neck of femur 06/16/2020 07/04/19 24 12/08/2023 Family History Medical History Relation Name Comments Heart attack Father Hypertension Mother Stroke Mother Relation Name Status Comments Father Mother Social History Tobacco Use Types Packs/Day Years Used Date Smoking Tobacco: Former Cigarettes Smokeless Tobacco: Never Alcohol Use Standard Drinks/Week Comments Never 0 (1 standard drink = 0.6 oz pur e alcohol) [facility] Utilities Answer Date Recorded In the past 12 months has th e electric, gas, oil, or water company threatened to shut off services in your home? No 01/16/2024 Humiliation, Afraid, Rape, and Kick questionnair e Answer Date Recorded Within the last year, have y ou been afraid of your partner or ex-partner? No 06/25/2024 Emotionally Abused Not on file 06/25/2024 Physically Abused Not on file 06/25/2024 Sexually Abused Not on file 06/25/2024 Overall Financial Resource Strain (CARDIA) Answe r Date Recorded How hard is it for you to pa y for the very basics like food, housing, medical care, and heating? Not very hard 01/16/2024 PHQ-2 Answer Date Recorded Patient Health Questionnaire-2 Score 0 06/25/2024 Transportation Answer Date Recorded In the past 12 months, has l ack of transportation kept you from medical appointments or from getting medications? No 01/16/2024 Lack of Transportation (Non-Medical) Not on file 01/16/2024 Housing Stability Vital Sign Answer Pan e Recorded Unable to Pay for Housing in the Last Year Not o n file 01/16/2024 Number of Places Lived in the Last Year Not on f ile 01/16/2024 In the last 12 months, was t here a time when you did not have a steady place to sleep or slept in a long term (including now)? No 01/16/2024 Hunger Vital Sign Answer Date Recorded Within the past 12 months, y ou worried that your food would run out before you got the money to buy more. Never true 01/16/20 24 Ran Out of Food in the Last Year Not on file 01/16/2024 Comments No Sex and Gender Information Value Date Recorded Sex Assigned at Not on file Legal Sex Female 12:32 AM EDT Gender Identity Not on file Sexual Orientation Not on file Last Filed Vital Signs Vital Sign Reading Time Taken Comments Blood Pressure 118/62 08/07/2024 3:18 PM EDT Pulse 78 08/07/2024 3:18 PM EDT Temperature 36.5 C (97.7 F) 12/10/2023 6:15 AM EDT Respiratory Rate 18 12/10/2023 6:15 AM EDT Oxygen Saturation 96% 08/07/2024 3:18 PM EDT Inhaled Oxygen Concentration - - Weight 44.9 kg (99 lb) 08/07/2024 3:18 PM EDT Height 160 cm (5' 3 ) 08/07/2024 3:18 PM EDT Body Mass Index 17.54 08/07/2024 3:18 PM EDT Plan of Treatment Health Maintenance Due Date Last Done Comments CT Colonography 1955 Colonoscopy 1955 Colorectal Cancer Screening 1955 FIT-DNA 1955 FIT 1955 FOBT 1955 Medicare Annual Wellness (AWV) 1955 Sigmoidoscopy 1955 Mammogram 1995 COVID-19 Vaccine ( season) 2023 09/27/2022, 11/29/2021, 03/26/2021, Additional history exists Pneumococcal Vaccine: 50+ Years (3 of 3 - PCV20 or PCV21) 12/26/2023 12/25/2018, 11/20/2015 Influenza Vaccine (#1) 2024 , 12/19/2019, 12/15/2019, Additional history exists Depression Screening 06/25/2025 06/25/2024 Fall Risk Screening 06/25/2025 06/25/2024 Adult Tetanus 06/28/2030 06/28/2020 Zoster Vaccines Completed 04/11/2020, 10/13, 02/25/2019, Additional history exists HIB Vaccines Aged Out No longer eligi ble based on patient's age to complete this topic HPV Vaccines Aged Out No longer eligi ble based on patient's age to complete this topic IPV Vaccines Aged Out No longer eligi ble based on patient's age to complete this topic Meningococcal B Vaccine Aged Out No l onger eligible based on patient's age to complete this topic Meningococcal Vaccine Aged Out No marin alex eligible based on patient's age to complete this topic Rotavirus Vaccines Aged Out No longer eligible based on patient's age to complete this topic Medical Devices Implanted Type Area Obgyn Nurse Device Identifier Shelf Expiration Date Model / Serial / Lot Screw,Bone,6. [id number]-Gbt - [id number] Implanted:Qty : 1 on 12/06/2023 by Ernesto Kan MD at [facility] Screw Left: Hip MILDRED [id number] 07/01/2032 [id number] / / [id number] Screw,Bone,Se lf-Tap,6.5x35 mm - [id number] Implanted:Qty : 1 on 12/06/2023 by Ernesto Kan MD at [facility] Screw Left: Hip [employer]DRED [id number] 07/03/2033 [id number] / / [id number] Screw,Bone,Se lf-Tap,6.5x30 mm - [id number] Implanted:Qty : 1 on 12/06/2023 by Ernesto Kan MD at [facility] Screw Left: Hip MILDRED [id number] 07/25/2033 [id number] / / [id number] Screw,Bone,Se lf-Tap,6.5x20 mm - [id number] Implanted:Qty : 1 on 12/06/2023 by Ernesto Kan MD at [facility] Screw Left: Hip MILDRED [id number] 05/16/2033 [id number] / / [id number] Acetabular System Shell Implanted:Qty : 1 on 12/06/2023 by Ernesto Kan MD at [facility] Total Joint Left: Hip [employer] [id number] 08/10/2033 [id number] / / [id number] Liner,G7,E1,4 0,F - [id number] Implanted:Qty : 1 on 12/06/2023 by Ernesto Kan MD at [facility] Total Joint Left: Hip [employer] [id number] 12/04/2026 [id number] / / [id number] Stem,Reduce,D istal,Stnd,9. 0 - [id number] Implanted:Qty : 1 on 12/06/2023 by Ernesto Kan MD at [facility] Total Joint Left: Hip [employer] [id number] 09/22/2032 [id number] / / [id number] Head,Biolox-D Mod,40mm - [id number] Implanted:Qty : 1 on 12/06/2023 by Ernesto Kan MD at [facility] Total Joint Left: Hip [employer] [id number] 09/18/2033 [id number] / / [id number] Sleeve,Biolox Option Type 1,-6 - [id number] Implanted:Qty : 1 on 12/06/2023 by Ernesto Kan MD at [facility] Total Joint Left: Hip [employer] [id number] 03/11/2033 [id number] / / [id number] Insurance [employer] MEDICARE MEDICAID [place] Advance Directives * Full Code (Latest Code Status on File) Date Activated Date Inactivated Comments 12/10/2023 1:02 PM 12/10/2023 7:42 PM * Full Code Date Activated Date Inactivated Comments 12/06/2023 1:47 PM 12/10/2023 1:02 PM Care Teams Anode Builder Relationship Specialty Start Date End Date Alexey Connor DO PCP - General Family Medicine 04/04/23
--- OUTSIDE RECORDS SUMMARY | 2024-12-01 21:39 | XMS_ITS | Encounter Summary ---
Author Organization [facility] Address [id number] [address] [place] [address] Care Team Providers Care Security Intelligence Analyst Name Role Phone Alexey Connor Primary Care Provider [phone] Encounter Details Date Type Department Care Team (Late st Contact Info) Description 03/30/2022 Orders Only [facility] - Family Medicine [address] [place] [address] External, Scanning Provider Social History Tobacco Use Types Packs/Day Years Used Date Smoking Tobacco: Former Cigarettes Smokeless Tobacco: Never Comments:Quit in the 90'S, S TARTED AGE 18 Alcohol Use Standard Drinks/Week Comments No 0 (1 standard drink = 0.6 oz pur e alcohol) Childcare Answer Date Recorded Childcare Unknown 09/24/2018 Employment Answer Date Recorded Employment Unknown 09/24/2018 Purpose - Life Answer Date Recorded Purpose and direction in life Unknown Comments No Sex and Gender Information Value Date Recorded Sex Assigned at Not on file Legal Sex Female 11:45 AM EDT Gender Identity Not on file Sexual Orientation Not on file COVID-19 Exposure Response Date Recorded In the last month, have you been in contact with someone who was confirmed or suspected to have Coronavirus / COVID-19? No / Unsure 03/27/2022 4:30 PM EST documented as of this encounter Plan of Treatment Not on file documented as of this encounter Goals Goal Patient Goal Type Associated Problems Recent Progress Patient-Stated? Author go to [place] for therapy General Yes Ronit Sorensen LSW Note: Evaluation of progress towards goal: will DC from ED to SNF upon arrangements Long-Term Goals General Yes Amparo Nix LSW Note: Evaluation of progress towards goal: return to [facility] documented as of this encounter Procedures Procedure Name Priority Date/Time Associated Diagnosis Comments MULTIPLE LABS Routine 03/28/2022 documented in this encounter Results * Multiple labs (03/28/2022) 03/28/2022 us Scanning Provider External [place] [facility] Final Result MANUALLY TRANSCRIBED RESULTS documented in this encounter Visit Diagnoses Not on filedocumented in this encounter Additional Health Concerns Infection Onset Date Last Indicated Resolved Time COVID-19 Rule-Out 04/08/2022 04/08/2022 04/08/2022 11:12 PM EST documented as of this encounter Care Teams Security Intelligence Analyst Relationship Specialty Start Date End Date Alexey Connor DO [address] [place] [address] PCP - General Family Medicine 03/27/22 documented as of this encounter
--- OUTSIDE RECORDS SUMMARY | 2024-12-01 21:39 | XMS_ITS | Encounter Summary ---
Author Organization [facility] Address [id number] [address] [place] [address] Care Team Providers Care Trophy Assembler Name Role Phone Alexey Connor Primary Care Provider + [phone] Encounter Details Date Type Department Care Team (Late st Contact Info) Description 05/20/2023 Orders Only [facility] - Family Medicine [address] [place] [address] External, Scanning Provider Social History Tobacco Use [...] Problems Recent Progress Patient-Stated? Author go to [place] for therapy General Yes Ronit Sorensen LSW Note: Evaluation of progress towards goal: will DC from ED to SNF upon arrangements Long-Term Goals General Yes Amparo Nix LSW Note: Evaluation of progress towards goal: return to [facility] documented as of this encounter Visit Diagnoses Not on filedocumented in this encounter Care Teams Trophy Assembler Relationship Specialty Start Date End Date Alexey Connor DO [address] [facility], [place] [address] PCP - General Family Medicine 03/27/22 documented as of this encounter
--- OUTSIDE RECORDS SUMMARY | 2024-12-01 21:39 | XMS_ITS | Encounter Summary ---
Author Organization [facility] Address [id number] [address] [place] [address] Care Team Providers Care Pamphlet Distributor Name Role Phone Alexey Connor Primary Care Provider + [phone] Encounter Details Date Type Department Care Team (Late st Contact Info) Description 05/13/2023 Orders Only [facility] - Family Medicine [address] [place] [address] External, Scanning Provider Social History Tobacco Use [...] Problems Recent Progress Patient-Stated? Author go to [place] for therapy General Yes Ronit Sorensen LSW Note: Evaluation of progress towards goal: will DC from ED to SNF upon arrangements Long-Term Goals General Yes Amparo Nix LSW Note: Evaluation of progress towards goal: return to [facility] documented as of this encounter Visit Diagnoses Not on filedocumented in this encounter Care Teams Pamphlet Distributor Relationship Specialty Start Date End Date Alexey Connor DO [address] [facility], [place] [address] PCP - General Family Medicine 03/27/22 documented as of this encounter
--- OUTSIDE RECORDS SUMMARY | 2024-12-01 21:39 | XMS_ITS | Clinical Summary ---
Author Organization [facility] Address [id number] [address] [place] [address] Care Team Providers Care Igniter Assembler Name Role Phone Alexey Connor Primary Care Provider Allergies Active Allergy Reactions Criticality Noted Date Comments Clarithromycin Nausea And Vomiting Low 02/03/2021 Erythromycin Nausea And Vomiting Medium 07/23/2016 Medications levothyroxine (SYNTHROID, LEVOTHROID) 75 MCG tablet Take 1 tablet (75 mcg total) by mouth every morning before breakfast. Take on empty stomach 0 Active busPIRone (BUSPAR) 10 mg tablet Take 1 tablet (10 mg total) by mouth in the morning and at bedtime. Give 1 tablet by mouth two times a day Active gabapentin (NEURONTIN) 300 mg capsule take 1 capsule by mouth IN THE MORNING, 1 CAP IN THE EARLY AFTERNOON AND 2 CAPS IN THE EVENING 1 Active pantoprazole (PROTONIX) 40 mg EC tablet Take 1 tablet (40 mg total) by mouth in the morning and 1 tablet (40 mg total) before bedtime. Active amLODIPine (NORVASC) 5 mg tablet Take 2 tablets (10 mg total) by mouth in the morning. Active sodium chloride 1 gram tablet Take 1 tablet (1 g total) by mouth daily. 30 tablet 1 Active atorvastatin (LIPITOR) 40 mg tablet Take 1 tablet (40 mg total) by mouth nightly. 30 tablet 1 Active clonazePAM (KlonoPIN) 1 mg tablet clonazepam 1 mg tablet take 1 tablet by mouth three times a day 1 Active calcium carbonate-vitam in D3 (CALCIUM 600 WITH VITAMIN D3) 600 mg(1,500mg) -400 unit tablet,chewable Chew 2 tablets and swallow daily. Active deutetrabenazin e 12 mg tablet Take 2 tablets by mouth in the morning and 2 tablets before bedtime. 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 2 Active sucralfate (CARAFATE) 1 gram tablet 2 Active acetaminophen (TYLENOL EXTRA STRENGTH) 500 mg tablet Take 1 tablet (500 mg total) by mouth every 8 (eight) hours as needed. Active alendronate (FOSAMAX) 70 mg tablet Take 1 tablet (70 mg total) by mouth Once a week. Active fluticasone propionate (FLONASE) 50 mcg/actuation nasal spray 2 Active PRIMIDONE ORAL Take 250 mg by mouth Daily at 0630. seizures Active traZODone (DESYREL) 150 mg tablet Take 150 mg by mouth nightly. Active ondansetron (ZOFRAN) 4 mg tablet Take 1 tablet (4 mg total) by mouth every 8 (eight) hours as needed for nausea or vomiting. Active cyclobenzaprine (FLEXERIL) 10 mg tablet Take 1 tablet (10 mg total) by mouth 3 (three) times a day as needed for muscle spasms. 3 Active menthol (BIOFREEZE, MENTHOL,) 4 % gel Apply 1 Application topically every 8 (eight) hours as needed. Apply to right shoulder topically every 8 hours as needed for shoulder pain Active dextromethorpha n-guaiFENesin (ROBITUSSIN-DM) 10-100 mg/5 mL liquid Take 10 mL by mouth every 6 (six) hours as needed for cough. Give 10 milliliter by mouth every 6 hours as needed for cough Active loperamide (IMODIUM A-D) 2 mg tablet Take 1 tablet (2 mg total) by mouth every 6 (six) hours as needed for diarrhea. Give one tablet by mouth every 6 hours as needed for loose stool Active Active Problems Problem Noted Date Diagnosed Date Witnessed apneic spells 04/06/2024 Aftercare following right sh oulder joint replacement surgery 02/25/2024 Aftercare following left hip joint replacement s urgery 12/20/2023 Abnormal stress test 09/18/2023 Abnormal EKG 08/07/2023 Hypophosphatemia 07/04/2023 Hypokalemia 07/04/2023 Hypocalcemia 07/04/2023 Disease characterized by destruction of skeletal muscle 07/04/2023 Depression 07/04/2023 Anxiety 07/04/2023 S/P reverse total shoulder arthroplasty, right 0 05/14/2023 Osteoarthritis of left hip 05/14/2023 Avascular necrosis of bone of hip, left 04/09/20 Hiatal hernia 03/12/2023 Primary osteoarthritis 10/19/2022 SIADH (syndrome of inappropriate ADH production) 09/14/2022 Hypoglycemia 09/14/2022 Nausea and vomiting 05/12/2022 Localized osteoarthritis of right shoulder 04/30 Movement disorder 03/23/2022 Anemia 03/23/2022 Acquired hypothyroidism 03/23/2022 Generalized anxiety disorder 03/23/2022 Primary hypertension 03/23/2022 Generalized muscle weakness 03/23/2022 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 Rectal prolapse 02/04/2021 Hypo-osmolality and hyponatremia 12/23/2020 Leg swelling 12/22/2020 Closed fracture of neck of femur 06/16/2020 Pain of left hip joint 06/16/2020 Tardive dyskinesia Acid reflux Hyperlipidemia Resolved Problems Problem Noted Date Diagnosed Date Resolved Date COVID-19 07/04/2023 10/26/2024 Pneumonia 08/17/2022 Chronic kidney disease 09/14 Overview (09/14/2022): patient denies Encounters Date Type Department Care Team Description 10/30/2024 Continuing Care [facility] - Family Medicine [address] [place] [address] Alexey Connor DO Closed fracture of tuft of distal phalanx of left ring finger (Primary Dx); Closed fracture of tuft of distal phalanx of left middle finger; Movement disorder; Tardive dyskinesia 10/09/2024 Continuing Care [facility] - [facility] [address] [place] [address] Alexey Connor, Primary hypertension (Primary Dx); Anxiety; Tardive dyskinesia; Movement disorder 10/09/2024 Continuing Care [facility] [address] [place] [address] Alexey Connor, Movement disorder (Primary Dx); Anxiety; Tardive dyskinesia; SIADH (syndrome of inappropriate ADH production) 09/11/2024 Continuing Care [facility] [address] [place] [address] Alexey Connor, Tardive dyskinesia (Primary Dx); Movement disorder; Primary hypertension from Last 3 Months Immunizations Immunization Administration Dates Next Due COVID-19, mRNA, LNP-S, PF, 100mcg/0.5mL Dose 11/29/2021 COVID-19, mRNA, LNP-S, PF, 3 0mcg/0.3mL Dose 03/26/2021,07/14/2020,06/23/2020 Covid-19, Mrna, Lnp-s, Bival ent, Pf, 30mcg/0.3 ml 09/27/2022 DTP 12/28/2020 Influenza (IM) Preservative Free 11/20/2015,12/14 Influenza, High-dose, Quadrivalent 01/10/2021 Influenza, Im Trivalent Preservative 12/15/2019 Influenza, Injectable, quadr ivalent (PF) 12/19/2019,12/25/2018,12/20/2017,12/14 Influenza, Unspecified 12/14/2016 Pneumococcal Conjugate 13-Valent 12/25/2018 Pneumococcal Polysaccharide 05/19/2022(), 016 Tdap 06/28/2020 Zoster Live 11/20/2015 Zoster Vaccine Recombinant 04/11/2020,10/28/2019 ,02/25/2019 Family History Medical History Relation Name Comments Esophagitis Father stricture speci fically Stroke Father Cancer Maternal Grandmother Colon cancer Maternal Grandmother Emphysema Mother Hyperlipidemia Mother Hypertension Mother Stroke Mother Relation Name Status Comments Father Maternal Grandmother Mother Social History Tobacco Use Types Packs/Day Years Used Date Smoking Tobacco: Former Cigarettes 0.5 20 1 972 - 1992 Smokeless Tobacco: Never Tobacco Cessation:Counseling Given: Not Answered Comments:Quit in the 90'S, STARTED AGE 18 Alcohol Use Standard Drinks/Week Comments [...] Sign Reading Time Taken Comments Blood Pressure 110/64 10/30/2024 11:06 AM EDT Pulse 59 10/30/2024 11:06 AM EDT Temperature 36.7 C (98.1 F) 10/30/2024 11:06 AM EDT Respiratory Rate 20 10/30/2024 11:06 AM EDT Oxygen Saturation 97% 10/30/2024 11:06 AM EDT Inhaled Oxygen Concentration - - Weight 45.5 kg (100 lb 3.2 oz) 10/30/2024 11:06 AM EDT Height 160 cm (5' 3 ) 08/26/2023 10:[address] ated Body Mass Index 17.75 08/26/2023 10:10 AM EDT Plan of Treatment Health Maintenance Due Date Last Done Comments Depression Screening 1967 Fall Risk Screening 2020 COVID-19 Vaccine (2023-2 5 season) 2023 09/27/2022, 11/29/2021, 03/26/2021, Additional history exists Tobacco Screening 09/26/2024 09/27/2023 Influenza Vaccine 12/14/2024 01/10/2021, , 12/15/2019, Additional history exists Adult BMI Screening 10/30/2025 10/30/2024 Colonoscopy 11/15/2030 11/15/2020, 11/15/2020 DTaP,Tdap and Td Vaccines (3 - Td or Tdap) 12/28/2030 12/28/2020, 06/28/2020 Zoster (Shingles) Vaccine Completed 2019, 10/28/2019, 02/25/2019, Additional history exists Goals Goal Patient Goal Type Associated Problems Recent Progress Patient-Stated? Author go to [place] for therapy General Yes Ronit Sorensen LSW Note: Evaluation of progress towards goal: will DC from ED to SNF upon arrangements Long-Term Goals General Yes Amparo Nix LSW Note: Evaluation of progress towards goal: return to [facility] Medical Devices Implanted Type Area Permastone Installer Device Identifier Shelf Expiration Date Model / Serial / Lot Mesh Pco Vntrl Ptch 4.6cm Rpl [id number] - Sna - [id number] Implanted:Qty: 1 on 01/29/2020 by Tai Del Rosario MD at [facility] Mesh N/A: Abdomen [employer] [place] 06/12/2024 [id number] / NA / [id number] Procedures Procedure Name Priority Date/Time Associated Diagnosis Comments PROVATION COLONOSCOPY Routine 11/15/2020 1:30 PM EDT from Last 3 Months or Most Recently Relevant to Health Maintenance Results * Colonoscopy Report (11/15/2020 1:30 PM EDT) Narrative SYSTEMGENERATED, DOCUMENTATION - 11/15/2020 1:30 PM EDT This order has been auto-finalized for image and report archival in PACs. *For full report details, please reach out to your physician. Effective 08/30/20 this image will be visible to you in MyChart.* Reilly Montoya MD IMG OR IMG ORDERABLES Final Res ult from Last 3 Months or Most Recently Relevant to Health Maintenance Insurance [place]ICAID [place] [employer] MEDICARE Advance Directives * Full Code (Latest Code Status on File) Date Activated Date Inactivated Comments 05/18/2022 5:36 PM 05/19/2022 9:18 PM * Full Code Date Activated Date Inactivated Comments 02/04/2021 10:29 AM 02/06/2021 4:12 PM * DNR Comfort Care Arrest (DNR-CCA) [place] Date Activated Date Inactivated Comments 01/07/2021 4:37 PM 01/08/2021 7:11 PM * Full Code Date Activated Date Inactivated Comments 12/23/2020 7:31 AM 12/26/2020 12:12 PM Care Teams Igniter Assembler Relationship Specialty Start Date End Date Alexey Connor DO [address], [place] [address] PCP - General Family Medicine 03/27/22
--- OUTSIDE RECORDS SUMMARY | 2024-12-01 21:39 | XMS_ITS | Encounter Summary ---
Author Organization [facility] Address [id number] [address] [place] [address] Care Team Providers Care Electronic Gaming Device Supervisor Name Role Phone Alexey Connor Primary Care Provider + [phone] Encounter Details Date Type Department Care Team (Late st Contact Info) Description 12/25/2023 Orders Only [facility] - Family Medicine [address] [place] [address] Ref Prov, [place] [address] Social History Tobacco Use Types Packs/Day Years [...] Problems Recent Progress Patient-Stated? Author go to [place] for therapy General Yes Ronit Sorensen LSW Note: Evaluation of progress towards goal: will DC from ED to SNF upon arrangements Long-Term Goals General Yes Amparo Nix LSW Note: Evaluation of progress towards goal: return to [facility] documented as of this encounter Procedures Procedure Name Priority Date/Time Associated Diagnosis Comments XR HIP LT 1 VIEW W OR WO PELVIS Routine 12/24/2023 2:48 PM EDT XR CHEST 1 VW Routine 12/24/2023 2:26 PM EDT ECG 12-LEAD Routine 12/24/2023 2:25 PM EDT documented in this encounter Results * X-ray hip left 1 view with or without pelvis (12/24/2023 2:48 PM EDT) Anatomical Region Laterality Modality Lower Extremities, MSK, Hip Left Comp uted Radiography us Not In System Ref Prov IMG DIAGNOSTIC IMAGING OR DERABLES Final Result * X-ray chest 1 view (12/24/2023 2:26 PM EDT) Anatomical Region Laterality Modality Body, Chest N/A Computed Radiogr aphy us Not In System Ref Prov IMG DIAGNOSTIC IMAGING OR DERABLES Final Result * ECG 12 lead (12/24/2023 2:25 PM EDT) us Not In System Ref Prov ECG ORDERABLES Final Res ult MANUALLY TRANSCRIBED RESULTS documented in this encounter Visit Diagnoses Not on filedocumented in this encounter Care Teams Electronic Gaming Device Supervisor Relationship Specialty Start Date End Date Alexey Connor DO [address], [place] [address] PCP - General Family Medicine 03/27/22 documented as of this encounter
--- OUTSIDE RECORDS SUMMARY | 2024-12-01 21:39 | XMS_ITS | Encounter Summary ---
Author Organization [id number] [facility] tem Address [id number] [address] [place] [address] Care Team Providers Care Composite Bond Technician Name Role Phone SuzetteAlexey gtz Primary Care Provider + [phone] Encounter Details Date Type Department Care Team (Late st Contact Info) Description 09/04/2023 [facility] [address] [place] [address] Janina Blue CMA Social History Tobacco Use Types Packs/Day Years [...] on file documented as of this encounter Miscellaneous Notes * Telephone Encounter - Janina Blue CMA - 09/04/2023 3:29 PM EDT Marian from [facility] called stated pt needs a referral for a different cardiogist bc ours is out of network for this pt can you do that? documented in this encounter Plan of Treatment Not on file documented as of this encounter Goals Goal Patient Goal Type Associated Problems Recent Progress Patient-Stated? Author go to [place] for therapy General Yes Ronit Sorensen LSW Note: Evaluation of progress towards goal: will DC from ED to SNF upon arrangements Long-Term Goals General Yes Amparo Nix LSW Note: Evaluation of progress towards goal: return to [facility] documented as of this encounter Visit Diagnoses Not on filedocumented in this encounter Care Teams Composite Bond Technician Relationship Specialty Start Date End Date Alexey Connor DO [address], [place] [address] PCP - General Family Medicine 03/27/22 documented as of this encounter
--- OUTSIDE RECORDS SUMMARY | 2024-12-01 21:39 | XMS_ITS | Encounter Summary ---
Author Organization [employer] Address [id number] [address] [place] [address] Care Team Providers Care Storeroom Attendant Name Role Phone Alexey Connor DO Primary Care Provider + [phone] Reason for Referral * Consultation (Routine) - Closed Specialty Diagnoses / Procedures Referred By Contac t Referred To Contact Cardiology Diagnoses Abnormal stress test Alexey Connor DO [address], [place] [address] Phone: tel: fax: Efren Jordan MD [address] [place] [address] Phone: tel: fax: Referral ID Status Reason Start Date Expiration Date V isits Requested Visits Authorized [id number] Closed Specialty Services Required 09/04/2023 09/03/2024 1 1 Encounter Details Date Type Department Care Team (Late st Contact Info) Description 09/04/2023 Orders Only [facility] - Family Medicine [address] [place] [address] Alexey Connor DO [address], [place] [address] Abnormal stress test (Primary Dx) Social History Tobacco Use Types Packs/Day Years [...] of this encounter Plan of Treatment Scheduled Referrals Name Type Priority Associated Diagnoses Order Schedule [facility] [place], [place] Outpatient Referral Routine Abnormal stress test 1 Occurrences starting 09/04/2023 until 09/03/2024 documented as of this encounter Goals Goal Patient Goal Type Associated Problems Recent Progress Patient-Stated? Author go to [place] for therapy General Yes Ronit Sorensen LSW Note: Evaluation of progress towards goal: will DC from ED to SNF upon arrangements Long-Term Goals General Yes Amparo Nix LSW Note: Evaluation of progress towards goal: return to [facility] documented as of this encounter Visit Diagnoses Diagnosis Abnormal stress test- Primary Other nonspecific abnormal cardiovascular system function study documented in this encounter Care Teams Storeroom Attendant Relationship Specialty Start Date End Date Alexey Connor DO [address], [facility] [address] PCP - General Family Medicine 03/27/22 documented as of this encounter
--- OUTSIDE RECORDS SUMMARY | 2024-12-01 21:39 | XMS_ITS | Encounter Summary ---
Author Organization [facility] Address [address] [place] [address] Phone Care Team Providers Care Mainspring Torque Tester Name Role Phone Alexey Connor DO Primary Care Provider Encounter Details Date Type Department Care Team (Late st Contact Info) Description 07/03/2020 Orders Only [facility] [address] [place] [address] Conversion, Onbase Social History Tobacco Use Types [...] r Schedule OUTSIDE LAB SCAN Lab Ordered: 07/03/2020 documented as of this encounter Visit Diagnoses Not on filedocumented in this encounter Care Teams Mainspring Torque Tester Relationship Specialty Start Date End Date Alexey Connor DO PCP - General 04/15/99 documented as of this encounter
--- OUTSIDE RECORDS SUMMARY | 2024-12-01 21:39 | XMS_ITS | Encounter Summary ---
Author Organization [facility] Address [address] [place] [address] Phone Care Team Providers Care Technician Support Engineer Name Role Phone Alexey Connor DO Primary Care Provider Encounter Details Date Type Department Care Team (Late st Contact Info) Description 06/29/2020 Orders Only [facility] [address] [place] [address] Conversion, Onbase Social History Tobacco Use Types [...] r Schedule OUTSIDE LAB SCAN Lab Ordered: 06/29/2020 documented as of this encounter Visit Diagnoses Not on filedocumented in this encounter Care Teams Technician Support Engineer Relationship Specialty Start Date End Date Alexey Connor DO PCP - General 04/15/99 documented as of this encounter
--- OUTSIDE RECORDS SUMMARY | 2024-12-01 21:39 | XMS_ITS | Encounter Summary ---
Author Organization [facility] Address [id number] [address] [place] [address] Care Team Providers Care Patient Financial Rep Name Role Phone Alexey Connor Primary Care Provider + [phone] Encounter Details Date Type Department Care Team (Late st Contact Info) Description 10/25/2023 Orders Only [facility] - Family Medicine [address] [place] [address] Ref Prov, [place] [address] Social History Tobacco Use Types Packs/Day Years [...] Problems Recent Progress Patient-Stated? Author go to [place] for therapy General Yes Ronit Sorensen LSW Note: Evaluation of progress towards goal: will DC from ED to SNF upon arrangements Long-Term Goals General Yes Amparo Nix LSW Note: Evaluation of progress towards goal: return to [facility] documented as of this encounter Procedures Procedure Name Priority Date/Time Associated Diagnosis Comments CT CERVICAL SPINE WO CONT Routine 10/24/2023 12:00 PM EDT ECG 12-LEAD Routine 10/24/2023 11:58 AM EDT documented in this encounter Results * CT cervical spine without contrast (10/24/2023 12:00 PM EDT) Anatomical Region Laterality Modality MSK, Neuro, Spine, C-spine, Spine Covera N/A Computed Tomography us Not In System Ref Prov IMG CT ORDERABLES Final R esult * ECG 12 lead (10/24/2023 11:58 AM EDT) us Not In System Ref Prov ECG ORDERABLES Final Res ult MANUALLY TRANSCRIBED RESULTS documented in this encounter Visit Diagnoses Not on filedocumented in this encounter Care Teams Patient Financial Rep Relationship Specialty Start Date End Date Alexey Connor DO [address] [place] [address] PCP - General Family Medicine 03/27/22 documented as of this encounter
--- OUTSIDE RECORDS SUMMARY | 2024-12-01 21:39 | XMS_ITS | Encounter Summary ---
Author Organization [employer] [facility] tem Address [id number] [address] [place] [address] Care Team Providers Care Shale Miner Blasting Name Role Phone Alexey Connor Primary Care Provider + [phone] Encounter Details Date Type Department Care Team (Late st Contact Info) Description 05/31/2023 [facility] [address] [place] [address] Mirza, Janina, BODY SHOP MANAGER Social History Tobacco Use Types Packs/Day Years [...] Problems Recent Progress Patient-Stated? Author go to [place] for therapy General Yes Ronit Sorensne LSW Note: Evaluation of progress towards goal: will DC from ED to SNF upon arrangements Long-Term Goals General Yes Amparo Nix LSW Note: Evaluation of progress towards goal: return to [facility] documented as of this encounter Visit Diagnoses Not on filedocumented in this encounter Care Teams Shale Miner Blasting Relationship Specialty Start Date End Date Alexey Connor DO [address] [facility], [place] [address] PCP - General Family Medicine 03/27/22 documented as of this encounter
--- OUTSIDE RECORDS SUMMARY | 2024-12-01 21:40 | XMS_ITS | Clinical Summary ---
Author Organization [facility] Healthcare Address [address] [place] [address] Care Team Providers Care Color Paste Mixing Supervisor Name Role Phone Esteban Slater MD Primary Care Provider [phone] Allergies Active Allergy Reactions Criticality Noted Date Comments Azithromycin Unknown 09/13/2021 Other reaction(s): Unknow Clarithromycin Nausea And Vomiting,GI intolerance Low 02/03/2021 Erythromycin GI intolerance,Other,Unk nown Medium 07/23/2016 Erythromycin Base Unknown 10/09/2021 Other reaction(s): Unknown Reaction Hydrocodone-Acetaminophe n GI intolerance 03/24/2024 Medications alendronate (Fosamax) 70 MG tablet Take 70 mg by mouth once a week Active amantadine (Symmetrel) 100 MG tablet Take 100 mg by mouth in the morning and 100 mg in the evening. 4 Active amLODIPine (Norvasc) 10 MG tablet Take 1 tablet by mouth Daily 4 Active atorvastatin (Lipitor) 40 MG tablet Take 1 tablet by mouth in the evening Active busPIRone (Buspar) 10 MG tablet Take 15 mg by mouth in the morning and 15 mg in the evening. Active calcium carbonate 1500 (600 Ca) MG tablet Take 600 mg by mouth in the morning. Active carBAMazepine (TEGretol) 200 MG tablet Take 200 mg by mouth in the morning and 200 mg at noon and 200 mg in the evening. Active celecoxib (CeleBREX) 100 MG capsule Take 100 mg by mouth in the morning and 100 mg in the evening. Active clonazePAM (KlonoPIN) 0.5 MG tablet Take 1-2 tablets by mouth at bedtime Active gabapentin (Neurontin) 300 MG capsule Take 1 capsule by mouth in the morning and 1 capsule before bedtime. Active levothyroxine (Synthroid) 75 MCG tablet Take 1 tablet by mouth in the morning. Take before meals. Active mirtazapine (Remeron) 15 MG tablet Take 15 mg by mouth at bedtime Active nitroglycerin (Nitrostat) 0.[address] 1 tablet under the tongue every 5 (five) minutes if needed for chest pain (x 3 doses) 4 Active pantoprazole (ProtoNix) 40 MG EC tablet Take 1 tablet by mouth in the morning. Take before meals. 4 Active pravastatin (Pravachol) 40 MG tablet Take 1 tablet by mouth at bedtime Active primidone (Mysoline) 50 MG tablet Take 50 mg by mouth in the morning and 50 mg in the evening. Active sodium chloride 1 g tablet Take 1 g by mouth in the morning. Active tetrabenazine (Xenazine) 25 MG tablet Take 25 mg by mouth in the morning and 25 mg in the evening. 4 Active ferrous sulfate 325 (65 Fe) MG tablet Take 325 mg by mouth in the morning. Take with meals. Active metoprolol tartrate (Lopressor) 50 MG tablet Take 1 tablet by mouth in the morning and 1 tablet before bedtime. Active valbenazine tosylate (Ingrezza) 80 MG capsule Take 1 capsule by mouth Daily Active aspirin 81 MG EC tablet Take 81 mg by mouth Daily Active Deutetrabenazin e ER (Austedo XR) 30 MG tablet sustained-relea se 24 hour Take 30 mg by mouth Daily Active fluticasone (Flonase) 50 MCG/ACT nasal spray Administer 1 spray into each nostril Daily Shake gently. Before first use, prime pump. After use, clean tip and replace cap. Active gabapentin (Neurontin) 600 MG tablet Take 600 mg by mouth at bedtime Active Encounters Date Type Department Care Team Description 11/04/2024 11:30 AM EDT Office Visit [facility] [address] [place] [address] Dionicio Trevizo MD Acquired hypothyroidism (Primary Dx); Movement disorder 11/04/2024 Bamboo flowsheet [facility] [address] [place] [address] Dionicio Trevizo MD from Last 3 Months Immunizations Immunization Administration Dates Next Due DTP 12/28/2020 Influenza, High-dose Seasona l, Quadrivalent, Preservative Free 01/10/2021 Influenza, injectable, quadr ivalent, preservative free 12/19/2019,12/25/2018,12/20/2017,12/14 Influenza, seasonal, injectable 12/15/2019 Influenza, seasonal, injecta ble, preservative free 11/20/2015,12/31/2014 Pneumococcal Conjugate PCV 13 12/25/2018 Pneumococcal Polysaccharide PPSV23 11/20/2015 Tdap 06/28/2020 Zoster, Recombinant 04/11/2020,10/28/2019,2018 Zoster, live 11/20/2015 Family History Medical History Relation Name Comments Heart disease Father Emphysema Mother Hypertension Mother Stroke Mother Relation Name Status Comments Father Mother Social History Tobacco Use Types Packs/Day Years Used Date Smoking Tobacco: Never Assessed Comments Unknown Sex and Gender Information Value Date Recorded Sex Assigned at Not on file Legal Sex Female 6:36 PM EDT Gender Identity Not on file Sexual Orientation Not on file Last Filed Vital Signs Vital Sign Reading Time Taken Comments Blood Pressure 128/74 04/11/2020 12:00 PM EST Pulse 62 11/04/2024 11:35 AM EDT Temperature - - Respiratory Rate 16 11/04/2024 11:35 AM EDT Oxygen Saturation 97% 11/04/2024 11:35 AM EDT Inhaled Oxygen Concentration - - Weight 45.4 kg (100 lb) 11/04/2024 11:35 AM EDT Height 160 cm (5' 3 ) 11/04/2024 11:35 AM EDT Body Mass Index 17.71 11/04/2024 11:35 AM EDT Plan of Treatment Upcoming Encounters Date Type Department Care Team (Late st Contact Info) Description 05/05/2025 11:30 AM EST Office Visit [facility] [address] [place] [address] Dionicio Trevizo MD [address] [place] [address] Health Maintenance Due Date Last Done Comments CT Colonography 1955 FIT-DNA 1955 FIT 1955 FOBT 1955 Medicare Annual Wellness (AWV) 1955 Sigmoidoscopy 1955 Mammogram 1995 Pneumococcal Vaccine: 65+ Ye ars (3 of 3 - PCV20 or PCV21) 12/26/2023 12/25/2018, 11/20/2015 Influenza Vaccine (#1) 2024 , 12/19/2019, 12/15/2019, Additional history exists Colonoscopy 11/15/2030 11/15/2020 Colorectal Cancer Screening 11/15/2030 Insurance [place] [address] MEDICAID [place] Care Teams Color Paste Mixing Supervisor Relationship Specialty Start Date End Date Esteban Slater MD [address] [place] [address] PCP - General Family Medicine 03/24/24
--- OUTSIDE RECORDS SUMMARY | 2024-12-01 21:40 | XMS_ITS | Encounter Summary ---
Author Organization [facility] Address [address] [place] [address] Care Team Providers Care Tariff Expert Name Role Phone Esteban Slater MD Primary Care Provider [phone] Source Comments In the event this information is protected by the Federal Confidentiality of Alcohol and Drug AbusePatient Records regulations: The Federal rules restrict any use of the information to criminally investigate or prosecute any alcohol or drug abuse patient.[facility] Encounter Details Date Type Department Care Team (Late st Contact Info) Description 06/08/2020 Get Medical Advice Neurology [address] [place], [place] [id number] Tai Hinojosa MD [address] [place] [address] RE: Non-Urgent Medical Question Social History Tobacco Use Types Packs/Day Years Used Date Smoking Tobacco: Former Cigarettes Q uit: 07/21/2017 Smokeless Tobacco: Never Alcohol Use Standard Drinks/Week Comments Never 0 (1 standard drink = 0.6 oz pur e alcohol) AUDIT-C Answer Date Recorded Q1: How often do you have a drink containing alc ohol? Never 07/21/2018 Average Number of Drinks Not on file 019 Frequency of Binge Drinking Not on file 11/2018 PHQ-2 Answer Date Recorded PHQ-2 score 1 02/09/2020 Area Deprivation Index Answer Date Kwame rded National Score (1-100), lower number is lower ri sk Not on file 03/20/2020 State Score (1-10), lower number is lower risk N ot on file 03/20/2020 Data from: https://www.neighborhoodatlas.medicine.[facility]/. Last address used for calculation Not on file 03/20/2020 Comments Unknown Sex and Gender Information Value Date Recorded Sex Assigned at Not on file Legal Sex Female 9:36 AM EST Gender Identity Not on file Sexual Orientation Not on file documented as of this encounter Miscellaneous Notes * Telephone Encounter - Mary Gibbs) - 06/08/2020 2:08 PM EST I called the patient to let her know that the day of her VV I or someone else will call earlier in the day to go over the instructions for the VV. Mary Gibbs Ma documented in this encounter Plan of Treatment Not on file documented as of this encounter Visit Diagnoses Not on filedocumented in this encounter Care Teams Tariff Expert Relationship Specialty Start Date End Date Esteban Slater MD [address] [place] [address] PCP - General Family Medicine 07/21/18 documented as of this encounter
--- OUTSIDE RECORDS SUMMARY | 2024-12-01 21:40 | XMS_ITS | Encounter Summary ---
Author Organization [facility] Address [address] [place] [address] Care Team Providers Care Department Coordinator Name Role Phone Esteban Slater MD Primary Care Provider [phone] Source Comments In the event this information is protected by the Federal Confidentiality of Alcohol and Drug AbusePatient Records regulations: The Federal rules restrict any use of the information to criminally investigate or prosecute any alcohol or drug abuse patient.[facility] Encounter Details Date Type Department Care Team (Late st Contact Info) Description 02/21/2020 Get Medical Advice Neurological Restorationist [address] [place], [place] [id number] Tai Hinojosa MD [address] [place] [address] RE: Non-Urgent Medical Question Social History Tobacco [...] Answer Date Recorded PHQ-2 score 1 02/09/2020 Comments Unknown Sex and Gender Information Value Date Recorded Sex Assigned at Not on file Legal Sex Female 9:36 AM EST Gender Identity Not on file Sexual Orientation Not on file documented as of this encounter Plan of Treatment Not on file documented as of this encounter Visit Diagnoses Diagnosis 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
--- OUTSIDE RECORDS SUMMARY | 2024-12-01 21:40 | XMS_ITS | Encounter Summary ---
Author Organization [facility] Address [id number] [address] [place] [address] Care Team Providers Care Counselor Nurses' Association Name Role Phone Alexey Connor Primary Care Provider [phone] Encounter Details Date Type Department Care Team (Late st Contact Info) Description 02/28/2022 Orders Only [facility] Internal Medicine - Family Medicine [address] [place] [address] External, Scanning Provider Social History Tobacco Use [...] Problems Recent Progress Patient-Stated? Author go to [place] for therapy General Yes Ronit Sorensen LSW Note: Evaluation of progress towards goal: will DC from ED to SNF upon arrangements Long-Term Goals General Yes Amparo Nix LSW Note: Evaluation of progress towards goal: return to [facility] documented as of this encounter Procedures Procedure Name Priority Date/Time Associated Diagnosis Comments NM HEPATOBILIARY SYS IMAGING W PHARMACOLOGIC AGENT Routine 02/23/2022 documented in this encounter Results * NM hepatobiliary system imaging with pharmacologic agent (02/23/2022) Anatomical Region Laterality Modality Nuc Med N/A Nuclear Medicine 02/23/2022 us Scanning Provider External IMG NM ORDERABLES Fin al Result documented in this encounter Visit Diagnoses Not on filedocumented in this encounter Additional Health Concerns Infection Onset Date Last Indicated Resolved Time COVID-19 Rule-Out 04/08/2022 04/08/2022 04/08/2022 11:12 PM EST documented as of this encounter Care Teams Counselor Nurses' Association Relationship Specialty Start Date End Date Alexey Connor DO [address] [place] [address] PCP - General Family Medicine 03/27/22 documented as of this encounter
--- OUTSIDE RECORDS SUMMARY | 2024-12-01 21:40 | XMS_ITS | Encounter Summary ---
Author Organization [facility] Address [id number] [address] [place] [address] Care Team Providers Care Marine Cargo Specialist Name Role Phone Alexey Connor Primary Care Provider [phone] Encounter Details Date Type Department Care Team (Late st Contact Info) Description 09/13/2022 [facility] Medicine [address] [place] [address] Samanta Roche, MIX HOUSE OPERATOR Hyponatremia Social History Tobacco Use Types Packs/Day Years [...] Problems Recent Progress Patient-Stated? Author go to [place] for therapy General Yes Ronit Sorensen LSW Note: Evaluation of progress towards goal: will DC from ED to SNF upon arrangements Long-Term Goals General Yes Amparo Nix, SLD INCLUSION TEACHER Note: Evaluation of progress towards goal: return to [facility] documented as of this encounter Procedures Procedure Name Priority Date/Time Associated Diagnosis Comments BASIC METABOLIC PANEL Routine 09/13/2022 Hyponatremia documented in this encounter Results * (ABNORMAL) Basic Metabolic Panel (09/13/2022) External Blood Urea Nitrogen Bun 11 9 - 23 MANUALLY TRANSCRIBED RESULTS External Calcium Ca 8.5(A) 8.7 - 10.4 MANUALLY TRANSCRIBED RESULTS External Chloride 102 98 - 107 MANUALLY TRANSCRIBED RESULTS External Co2 / Carbon Dioxide 26 20 - 31 MANUALLY TRANSCRIBED RESULTS External Creatinine 0.50 0.50 - 0.80 MANUALLY TRANSCRIBED RESULTS External Gfr Amer 149 MANUALLY TRANSCRIBED RESULTS External Gfr Non Amer 123 MANUALLY TRANSCRIBED RESULTS External Glucose Fasting Or Random (Fbs) 61(A) 76 - 106 MANUALLY TRANSCRIBED RESULTS External Potassium K 4.3 3.5 - 5.1 MANUALLY TRANSCRIBED RESULTS External Sodium Na 137 136 - 145 MANUALLY TRANSCRIBED RESULTS Blood 09/13/2022 us Edilma Yin HOSPITAL SECURITY OFFICER-LABOR SPECIALIST LAB BLOOD ORDERABLES Final Result MANUALLY TRANSCRIBED RESULTS documented in this encounter Visit Diagnoses Diagnosis Hyponatremia Hyposmolality and/or hyponatremia documented in this encounter Care Teams Marine Cargo Specialist Relationship Specialty Start Date End Date Alexey Connor DO [address] [place] [address] PCP - General Family Medicine 03/27/22 documented as of this encounter
--- OUTSIDE RECORDS SUMMARY | 2024-12-01 21:40 | XMS_ITS | Encounter Summary ---
Author Organization [facility] Address [address] [place] [address] Care Team Providers Care Salon Customer Experience Specialist Name Role Phone Esteban Slater MD Primary Care Provider [phone] Source Comments In the event this information is protected by the Federal Confidentiality of Alcohol and Drug AbusePatient Records regulations: The Federal rules restrict any use of the information to criminally investigate or prosecute any alcohol or drug abuse patient.[facility] Encounter Details Date Type Department Care Team (Late st Contact Info) Description 05/27/2020 Get Medical Advice Neurology [address] [place], [place] [phone] Tai Hinojosa MD [address] [place] [address] RE: Non-Urgent Medical Question Social History Tobacco [...] on file 03/20/2020 Data from: https://www.neighborhoodatlas.medicine.[facility]/. Last address used for calculation Not on file 03/20/2020 Comments Unknown Sex and Gender Information Value Date Recorded Sex Assigned at Not on file Legal Sex Female 9:36 AM EST Gender Identity Not on file Sexual Orientation Not on file documented as of this encounter Miscellaneous Notes * Telephone Encounter - Mary Gibbs) - 05/30/2020 10:23 AM EST Called [facility] and am waiting on a call back. The agent I spoke with said she needed to reach out to the patients plan to see if they need a new PA filled out or if they could just send the appeal. Mary Gibbs Ma documented in this encounter Plan of Treatment Not on file documented as of this encounter Visit Diagnoses Not on filedocumented in this encounter Care Teams Salon Customer Experience Specialist Relationship Specialty Start Date End Date Esteban Slater MD [address] [place] [address] PCP - General Family Medicine 07/21/18 documented as of this encounter
--- OUTSIDE RECORDS SUMMARY | 2024-12-01 21:40 | XMS_ITS | Encounter Summary ---
Author Organization [facility] Address [facility] [place] [address] Care Team Providers Care Auto Parts Delivery Driver Name Role Phone Esteban Slater MD Primary Care Provider [phone] Source Comments In the event this information is protected by the Federal Confidentiality of Alcohol and Drug AbusePatient Records regulations: The Federal rules restrict any use of the information to criminally investigate or prosecute any alcohol or drug abuse patient.[facility] Encounter Details Date Type Department Care Team (Late st Contact Info) Description 02/11/2020 Patient Msg Neurological [facility] [address] [place], [place] [phone] Tai Hinojosa MD [address] [place] [address] today's visit Social History Tobacco Use Types Packs/Day Years [...] on filedocumented in this encounter Care Teams Auto Parts Delivery Driver Relationship Specialty Start Date End Date Esteban Slater MD [address] [place] [address] PCP - General Family Medicine 07/21/18 documented as of this encounter
--- OUTSIDE RECORDS SUMMARY | 2024-12-01 21:40 | XMS_ITS | Encounter Summary ---
Author Organization [facility] Address [address] [place] [address] Care Team Providers Care Process Validation Engineer Name Role Phone Esteban Slater MD Primary Care Provider [phone] Source Comments In the event this information is protected by the Federal Confidentiality of Alcohol and Drug AbusePatient Records regulations: The Federal rules restrict any use of the information to criminally investigate or prosecute any alcohol or drug abuse patient.[facility] Encounter Details Date Type Department Care Team (Late st Contact Info) Description 05/24/2020 Get Medical Advice Neurology [address] [place], [place] [id number] Tai Hinojosa MD [address] [place] [address] RE: Non-Urgent Medical Question Social History Tobacco [...] N ot on file 03/20/2020 Data from: https://www.neighborhoodatlas.medicine.[facility]/. Last address used for calculation Not [...] on filedocumented in this encounter Care Teams Process Validation Engineer Relationship Specialty Start Date End Date Esteban Slater MD [address] [place] [address] PCP - General Family Medicine 07/21/18 documented as of this encounter
--- OUTSIDE RECORDS SUMMARY | 2024-12-01 21:40 | XMS_ITS | Encounter Summary ---
Author Organization [facility] Address [address] [place] [address] Care Team Providers Care Patient Services Rep Name Role Phone Esteban Slater MD Primary Care Provider [phone] Source Comments In the event this information is protected by the Federal Confidentiality of Alcohol and Drug AbusePatient Records regulations: The Federal rules restrict any use of the information to criminally investigate or prosecute any alcohol or drug abuse patient.[facility] Encounter Details Date Type Department Care Team (Late st Contact Info) Description 06/13/2020 Get Medical Advice Neurology [address] [place], [place] [phone] Tai Hinojosa MD [address] [place] [address] RE: Non-Urgent Medical Question Social History Tobacco [...] N ot on file 03/20/2020 Data from: https://www.neighborhoodatlas.medicine.[facility]/. Last address used for calculation Not on [...] filedocumented in this encounter Care Teams Patient Services Rep Relationship Specialty Start Date End Date Esteban Slater MD [address] [place] [address] PCP - General Family Medicine 07/21/18 documented as of this encounter
--- OUTSIDE RECORDS SUMMARY | 2024-12-01 21:40 | XMS_ITS | Encounter Summary ---
Author Organization [facility] Address [address] [place] [address] Care Team Providers Care Communications Supervisor Name Role Phone Esteban Slater MD Primary Care Provider [phone] Source Comments In the event this information is protected by the Federal Confidentiality of Alcohol and Drug AbusePatient Records regulations: The Federal rules restrict any use of the information to criminally investigate or prosecute any alcohol or drug abuse patient.[facility] Encounter Details Date Type Department Care Team (Late st Contact Info) Description 08/04/2018 Patient Msg Urology [address] [place] [address] Provider, Jacquelyn Primidone Social History Tobacco Use Types Packs/Day Years [...] of Binge Drinking Not on file 11/2018 Comments Unknown Sex and Gender Information Value Date Recorded Sex Assigned at Not on file Legal Sex Female 9:36 AM EST Gender Identity Not on file Sexual Orientation Not on file documented as of this encounter Plan of Treatment Not on file documented as of this encounter Visit Diagnoses Not on filedocumented in this encounter Care Teams Communications Supervisor Relationship Specialty Start Date End Date Esteban Slater MD [address] [place] [address] PCP - General Family Medicine 07/21/18 documented as of this encounter
--- OUTSIDE RECORDS SUMMARY | 2024-12-01 21:40 | XMS_ITS | Clinical Summary ---
Author Organization [facility] Address [address] [place] [address] Care Team Providers Care Heel Reducer Name Role Phone Esteban Slater MD Primary Care Provider Allergies Active Allergy Reactions Criticality Noted Date Comments Erythromycin Unknown 05/14/2023 Medications escitalopram oxalate (LEXAPRO) 20 mg tablet Take 20 mg by mouth once daily. 0 9 Active alendronate (FOSAMAX) 70 mg tablet once each week. 0 9 Active pravastatin (PRAVACHOL) 40 mg tablet Take 40 mg by mouth once daily. Active Magnesium 250 mg tab Take 250 mg by mouth. Active ascorbic acid, vitamin C, (VITAMIN C WITH NOVA HIPS) 500 mg tablet Take 500 mg by mouth once daily. Active Ferrous Sulfate 325 mg (65 mg iron) cpER Take by mouth. Acti ve pantoprazole DR (PROTONIX) 40 mg tablet Take 40 mg by mouth twice daily. Active busPIRone (BUSPAR) 5 mg tabletIndication s:Anxiety Take 1 tablet by mouth three times daily. 90 tablet 2 9 Active Additional Information Patient taking differently: 10 mgORAL 3 TIMES DAILY, Reason: Dosage Adjustment, Reported on 12/18/2018 primidone (MYSOLINE) 250 mg tabletIndication s:Action tremor Take 1 tablet by mouth twice daily. 60 tablet 5 1 Active gabapentin (NEURONTIN) 300 mg capsule Take 1 capsule in the morning, one in early afternoon, and 2 in the evening 120 capsule 2 1 Active amLODIPine (NORVASC) 5 mg tablet Take by mouth once daily. Active atorvastatin (LIPITOR) 40 mg tablet Take 40 mg by mouth once daily. Active menthol (BIOFREEZE, MENTHOL,) 4 % topical gel Apply to affected area three times daily as needed. Active busPIRone (BUSPAR) 15 mg tablet Take 15 mg by mouth three times daily. Active calcium carbonate (CALTRATE) 600 mg calcium (1,500 mg) tab Take 600 mg by mouth. Active ferrous sulfate 325 mg (65 mg iron) tablet Take 325 mg by mouth daily with breakfast. Active Fluticasone Propionate 50 mcg/actuation diskus inhaler Inhale 1 Puff as instructed twice daily. Active alendronate (FOSAMAX) 70 mg tablet Take 70 mg by mouth one time a week. In AM with cup of water on empty stomach. Nothing else by mouth and stay upright for 30 min. Active Ibuprofen 200 mg cap Take by mouth every 6 hours as needed. Active loperamide (IMODIUM) 2 mg cap(s) Take 2 mg by mouth four times daily as needed. Active polyethylene glycol 3350 17 gram/dose powder Take by mouth once daily. Dissolve dose in 4 - 8 ounces of liquid and take as directed. Active pantoprazole DR (PROTONIX) 40 mg tablet Take 40 mg by mouth once daily. Active sodium chloride 1 g tab Take 1 g by mouth three times daily. Active sucralfate (CARAFATE) 1 gram tablet Take 1 g by mouth four times daily. Active acetaminophen (TYLENOL) 500 mg tablet Take 500 mg by mouth every 8 hours as needed. Active ondansetron (ZOFRAN) 4 mg tablet Take by mouth every 8 hours as needed for nausea/vomiting . Active HYDROcodone-acet aminophen (NORCO) 5-325 mg per tablet Take 1 tablet by mouth every 8 hours as needed for pain. Active gabapentin (NEURONTIN) 600 mg tablet Take 600 mg by mouth three times a day. Active deutetrabenazine (AUSTEDO) 12 mg tabIndications:D yskinesia, tardive,Lingual facial buccal dyskinesia,Dyski nesia, orofacial Take 2 tablets (24 mg) by mouth twice daily with meals. 120 tablet 5 3 Active cyclobenzaprine (FLEXERIL) 10 mg tablet 3 Active guaiFENesin-dext romethorphan (ROBITUSSIN DM) 100-10 mg/5 mL syrup Take 10 mL by mouth every 6 hours as needed. Active levothyroxine (SYNTHROID) 75 mcg tablet 3 Active traZODone (DESYREL) 100 mg tablet 3 Active clonazePAM (KLONOPIN) 1 mg tabletIndication s:Lingual facial buccal dyskinesia,Akath isia,Excessive physiologic tremor Take 1.5 tablets by mouth three times daily for 90 days. [including bedtime] 135 tablet 2 3 Active celecoxib (CELEBREX) 100 mg capsule Take 100 mg by mouth two times a day. Active clonazePAM (KLONOPIN) 0.5 mg tablet Take 0.5 mg by mouth three times a day. Take 3 tablets by mouth 3 times a day. Active mirtazapine (REMERON) 15 mg tablet Take 15 mg by mouth daily at bedtime. Active carBAMazepine (TEGRETOL) 200 mg tabletIndication s:Lingual facial buccal dyskinesia,Dyski nesia, tardive Take 1 tablet by mouth three times a day. [Start with this only twice a day for 1-2 weeks, then go to 3 doses per day 90 tablet 2 4 Active tetrabenazine (XENAZINE) 25 mg tabletIndication s:Dyskinesia, tardive Take 1 tablet by mouth two times a day. 60 tablet 2 4 Active amantadine HCl (SYMMETREL) 100 mg tabletIndication s:Dyskinesia, tardive Take 1 tablet by mouth two times a day. 60 tablet 2 4 Active Immunizations Immunization Administration Dates Next Due COVID-19 original vaccine, a ge 12+ yr, monovalent (Deposco - [facility]) 03/26/2021,07/14/2020,06/23/2020 diphtheria tetanus pertussis (DTP) vaccine 12/28/2020 influenza (HD-IIV4) vaccine, age 65+ yr, high dose, quadrivalent, PF (FLUZONE HIGH-DOSE) 01/10/2021 influenza (IIV3) vaccine, tr ivalent (AFLURIA, FLULAVAL, FLUVIRIN, FLUZONE) 12/15/2019 influenza (IIV3) vaccine, tr ivalent, PF (AFLURIA, FLUARIX, FLULAVAL, FLUVIRIN, FLUZONE) 11/20/2015,12/31/2014 influenza (IIV4) vaccine, ag e 6 mo - 64 yr, quadrivalent, PF (AFLURIA, FLUARIX, FLULAVAL, FLUZONE) 12/19/2019,12/25/2018,12/20/2017,12/14 pneumococcal conjugate (PCV1 3) vaccine, 13 valent (PREVNAR 13) 12/25/2018 pneumococcal polysaccharide (PPV23) vaccine, 23 valent (PNEUMOVAX 23) 11/20/2015 tetanus diphtheria pertussis (Tdap) vaccine, age 7+ yr (ADACEL, BOOSTRIX) 06/28/2020 zoster (RZV) vaccine, recomb inant (SHINGRIX) 04/11/2020,10/28/2019,02/25/2019 zoster (ZVL) vaccine, live (ZOSTAVAX) 11/20/2015 Family History Medical History Relation Comments Heart Father of [place] Leukemia Father actually lymphom a Cancer Maternal Grandmother brain Heart Mother Stroke Mother Relation Status Comments Father Maternal Grandmother Mother Social History Tobacco Use Types Packs/Day Years Used Date Smoking Tobacco: Former Cigarettes Q uit: 07/21/2017 Passive Smoke Exposure: Past Smokeless Tobacco: Never Tobacco Cessation:Counseling Given: Not Answered Alcohol Use Standard Drinks/Week Comments Never 0 (1 standard drink = 0.6 oz pur e alcohol) AUDIT-C Answer Date Recorded Q1: How often do you have a drink containing alc ohol? Never 07/21/2018 Average Number of Drinks Not on file 019 Frequency of Binge Drinking Not on file 11/2018 PHQ-2 Answer Date Recorded PHQ-2 score 0 08/08/2020 Area Deprivation Index Answer Date Kwame rded National Score (1-100), lower number is lower ri sk 89 05/14/2023 State Score (1-10), lower number is lower risk 8 05/14/2023 Data from: https://www.neighborhoodatlas.medicine.[facility].edu/. Last address used for calculation [address] [facility] 05/14/2023 Comments No Sex and Gender Information Value Date Recorded Sex Assigned at Not on file Legal Sex Female 9:36 AM EST Gender Identity Not on file Sexual Orientation Not on file Last Filed Vital Signs Vital Sign Reading Time Taken Comments Blood Pressure 136/80 11/12/2023 10:53 AM EDT Pulse 72 11/12/2023 10:53 AM EDT Temperature - - Respiratory Rate 18 08/21/2018 9:37 AM EDT Oxygen Saturation 93% 11/12/2023 10:53 AM EDT Inhaled Oxygen Concentration - - Weight 43.1 kg (95 lb) 11/12/2023 10:53 AM EDT Height 160 cm (5' 3 ) 05/14/2023 3:58 PM EST Body Mass Index 16.83 05/14/2023 3:58 PM EST Plan of Treatment Health Maintenance Due Date Last Done Comments Anxiety Screening 1973 Depression Screening 1973 Hepatitis C Screening [address] Colonography 2000 Cologuard (FIT-DNA) 2000 Colonoscopy 2000 Colorectal Cancer Screening 2000 Fecal Occult Blood 2000 Lipid Screening 2000 Sigmoidoscopy 2000 Bone Density Screening 2020 Pneumococcal Vaccine: 50+ (3 of 3 - PCV20 or PCV21) 12/26/2023 12/25/2018, 11/20/2015 Advance Directive Discussion 04/15/2024 Medicare Advantage Annual We llness Visit 04/15/2024 Influenza Vaccine (#1) 2024 , 12/19/2019, 12/15/2019, Additional history exists Diabetes Screening 05/19/2025 05/19/2022, 1 06/09/2021, 04/04/2022, Additional history exists RSV Vaccine (1 - 1-dose 75+ series) 2030 DTaP,Tdap,Td Vaccine (3 - Td or Tdap) 12/28/2030 12/28/2020, 06/28/2020 Shingrix Vaccine Completed 04/11/2020, , 02/25/2019, Additional history exists Insurance [facility] MEDICARE ADVANTAGE PPO Care Teams Heel Reducer Relationship Specialty Start Date End Date Esteban Slater MD [address] [place] [address] PCP - General Family Medicine 07/21/18
--- OUTSIDE RECORDS SUMMARY | 2024-12-01 21:40 | XMS_ITS | Encounter Summary ---
Author Organization [facility] Address [id number] [address] [place] [address] Care Team Providers Care Genetics Nurse Name Role Phone Alexey Connor Primary Care Provider [phone] Encounter Details Date Type Department Care Team (Late st Contact Info) Description 02/12/2024 Orders Only [facility] Internal Medicine - Family Medicine [address] [place] [address] Ref Prov, [place] [address] Social History Tobacco Use Types Packs/Day Years [...] Problems Recent Progress Patient-Stated? Author go to [place] for therapy General Yes Ronit Sorensen LSW Note: Evaluation of progress towards goal: will DC from ED to SNF upon arrangements Long-Term Goals General Yes Amparo Nix LSW Note: Evaluation of progress towards goal: return to [facility] documented as of this encounter Procedures Procedure Name Priority Date/Time Associated Diagnosis Comments BASIC METABOLIC PANEL Routine 02/12/2024 2:28 PM EDT documented in this encounter Results * Basic Metabolic Panel (02/12/2024 2:28 PM EDT) us Not In System Ref Prov LAB BLOOD ORDERABLES Catia l Result MANUALLY TRANSCRIBED RESULTS documented in this encounter Visit Diagnoses Not on filedocumented in this encounter Care Teams Genetics Nurse Relationship Specialty Start Date End Date Alexey Connor DO [address] [place] [address] PCP - General Family Medicine 03/27/22 documented as of this encounter
--- OUTSIDE RECORDS SUMMARY | 2024-12-01 21:40 | XMS_ITS | Encounter Summary ---
Author Organization [facility] Address [id number] [address] [place] [address] Care Team Providers Care Donor Center Technician Name Role Phone Alexey Connor DO Primary Care Provider [phone] Encounter Details Date Type Department Care Team (Late st Contact Info) Description 05/29/2024 Orders Only [facility] Internal Medicine - Family Medicine [address] [place] [address] Alexey Connor DO [address], [facility] [place], [place] [id number] Social History Tobacco Use Types Packs/Day Years [...] Problems Recent Progress Patient-Stated? Author go to [place] for therapy General Yes Ronit Sorensen LSW Note: Evaluation of progress towards goal: will DC from ED to SNF upon arrangements Long-Term Goals General Yes Amparo Nix LSW Note: Evaluation of progress towards goal: return to [facility] documented as of this encounter Visit Diagnoses Not on filedocumented in this encounter Care Teams Donor Center Technician Relationship Specialty Start Date End Date Alexey Connor DO [address], [facility] [place] [place] [address] PCP - General Family Medicine 03/27/22 documented as of this encounter
--- OUTSIDE RECORDS SUMMARY | 2024-12-01 21:40 | XMS_ITS | Encounter Summary ---
Author Organization [facility] Address [address] [place] [address] Care Team Providers Care Metalworker Name Role Phone Esteban Slater MD Primary Care Provider [phone] Source Comments In the event this information is protected by the Federal Confidentiality of Alcohol and Drug AbusePatient Records regulations: The Federal rules restrict any use of the information to criminally investigate or prosecute any alcohol or drug abuse patient.[facility] Encounter Details Date Type Department Care Team (Late st Contact Info) Description 2020 [place] [address] Provider, [facility] Medicare Coverage of Physical Exams Social History Tobacco Use Types Packs/Day Years [...] N ot on file 03/20/2020 Data from: https://www.neighborhoodatlas.medicine.[facility].edu/. Last address used for calculation Not on [...] on filedocumented in this encounter Care Teams Metalworker Relationship Specialty Start Date End Date Esteban Slater MD [address] [place] [address] PCP - General Family Medicine 07/21/18 documented as of this encounter
--- OUTSIDE RECORDS SUMMARY | 2024-12-01 21:40 | XMS_ITS | Encounter Summary ---
Author Organization [facility] Address [facility]-[id number] [address] [place] [address] Care Team Providers Care Juice Scaleman Name Role Phone Alexey Connor DO Primary Care Provider [phone] Encounter Details Date Type Department Care Team (Late st Contact Info) Description 02/03/2024 Orders Only [facility] - Family Medicine [address] [place] [address] Alexey Connor DO [address], [facility] [place], [place] [id number] Social History Tobacco Use Types Packs/Day Years [...] Problems Recent Progress Patient-Stated? Author go to [place] for therapy General Yes Ronit Sorensen LSW Note: Evaluation of progress towards goal: will DC from ED to SNF upon arrangements Long-Term Goals General Yes Amparo Nix LSW Note: Evaluation of progress towards goal: return to [facility] documented as of this encounter Visit Diagnoses Not on filedocumented in this encounter Care Teams Juice Scaleman Relationship Specialty Start Date End Date Alexey Connor DO [address], [facility] [place] [address] PCP - General Family Medicine 03/27/22 documented as of this encounter
--- OUTSIDE RECORDS SUMMARY | 2024-12-01 21:40 | XMS_ITS | Encounter Summary ---
Author Organization [facility] Address [address] [place] [address] Care Team Providers Care Switch Technician Name Role Phone Esteban Slater MD Primary Care Provider Source Comments In the event this information is protected by the Federal Confidentiality of Alcohol and Drug AbusePatient Records regulations: The Federal rules restrict any use of the information to criminally investigate or prosecute any alcohol or drug abuse patient.[facility] Encounter Details Date Type Department Care Team (Late st Contact Info) Description 02/14/2020 Get Medical Advice Neurological Shinto [address] [place], [place] [id number] Tai Hinojosa MD [address] [place] [address] RE: Non-Urgent Medical Question Social [...] on filedocumented in this encounter Care Teams Switch Technician Relationship Specialty Start Date End Date Esteban Slater MD [address] [place] [address] PCP - General Family Medicine 07/21/18 documented as of this encounter
--- OUTSIDE RECORDS SUMMARY | 2024-12-01 21:40 | XMS_ITS | Encounter Summary ---
Author Organization [facility] Address [address] [place] [address] Care Team Providers Care Chief Inspector Name Role Phone Esteban Slater MD Primary Care Provider [phone] Source Comments In the event this information is protected by the Federal Confidentiality of Alcohol and Drug AbusePatient Records regulations: The Federal rules restrict any use of the information to criminally investigate or prosecute any alcohol or drug abuse patient.[facility] Encounter Details Date Type Department Care Team (Late st Contact Info) Description 05/27/2020 Get Medical Advice Neurology [address] [place], [place] [id number] Tai Hinojosa MD [address] [place] [address] RE: Non-Urgent Medical Question Social History Tobacco [...] N ot on file 03/20/2020 Data from: https://www.neighborhoodatlas.medicine.[facility]/. Last address used for calculation Not on [...] on filedocumented in this encounter Care Teams Chief Inspector Relationship Specialty Start Date End Date Esteban Slater MD [address] [place] [address] PCP - General Family Medicine 07/21/18 documented as of this encounter
--- OUTSIDE RECORDS SUMMARY | 2024-12-01 21:40 | XMS_ITS | Encounter Summary ---
Author Organization [facility] Address [facility]-[id number] [address] [place] [address] Care Team Providers Care Director Community Health Nursing Name Role Phone Alexey Connor Primary Care Provider [phone] Encounter Details Date Type Department Care Team (Late st Contact Info) Description 06/09/2024 Orders Only [facility] - Family Medicine [address] [place] [address] Ref Prov, [place] [address] Social History Tobacco Use Types Packs/Day Years [...] Problems Recent Progress Patient-Stated? Author go to [place] for therapy General Yes Ronit Sorensen LSW Note: Evaluation of progress towards goal: will DC from ED to SNF upon arrangements Long-Term Goals General Yes Amparo Nix LSW Note: Evaluation of progress towards goal: return to [facility] documented as of this encounter Procedures Procedure Name Priority Date/Time Associated Diagnosis Comments SPLIT NIGHT SLEEP STUDY Routine 05/06/2024 11:41 AM EST documented in this encounter Results * Split Night Sleep Study (05/06/2024 11:41 AM EST) us Not In System Ref Prov SLEEP CENTER ORDERABLES F inal Result MANUALLY TRANSCRIBED RESULTS documented in this encounter Visit Diagnoses Not on filedocumented in this encounter Care Teams Director Community Health Nursing Relationship Specialty Start Date End Date Alexey Connor DO [address] [place] [address] PCP - General Family Medicine 03/27/22 documented as of this encounter
--- OUTSIDE RECORDS SUMMARY | 2024-12-01 21:40 | XMS_ITS | Encounter Summary ---
Author Organization [facility] Address [address] [place] [address] Care Team Providers Care Exchange Operator Name Role Phone Esteban Slater MD Primary Care Provider [phone] Source Comments In the event this information is protected by the Federal Confidentiality of Alcohol and Drug AbusePatient Records regulations: The Federal rules restrict any use of the information to criminally investigate or prosecute any alcohol or drug abuse patient.[facility] Encounter Details Date Type Department Care Team (Late st Contact Info) Description 05/27/2020 Get Medical Advice Neurology [address] [place], [place] [id number] Tai Hinojosa MD [address] [place] [address] RE: Non-Urgent Medical Question Social History Tobacco [...] N ot on file 03/20/2020 Data from: https://www.neighborhoodatlas.medicine.[facility]/. Last address used for calculation Not on file 03/20/2020 Comments Unknown Sex and Gender Information Value Date Recorded Sex Assigned at Not on file Legal Sex Female 9:36 AM EST Gender Identity Not on file Sexual Orientation Not on file documented as of this encounter Miscellaneous Notes * Telephone Encounter - Ana Donato Ma - 05/27/2020 1:[address] Hinojosa: Please see patient message regarding medication refills. Thank you documented in this encounter Plan of Treatment Not on file documented as of this encounter Visit Diagnoses Not on filedocumented in this encounter Care Teams Exchange Operator Relationship Specialty Start Date End Date Esteban Slater MD [address] [place] [address] PCP - General Family Medicine 07/21/18 documented as of this encounter
--- OUTSIDE RECORDS SUMMARY | 2024-12-01 21:40 | XMS_ITS | Encounter Summary ---
Author Organization [facility] Address [address] [place] [address] Care Team Providers Care Wood Strip Block Floor Installer Name Role Phone Esteban Slater MD Primary Care Provider [phone] Source Comments In the event this information is protected by the Federal Confidentiality of Alcohol and Drug AbusePatient Records regulations: The Federal rules restrict any use of the information to criminally investigate or prosecute any alcohol or drug abuse patient.[facility] Encounter Details Date Type Department Care Team (Late st Contact Info) Description 10/20/2019 Patient Msg Neurology [address] [place] [address] Tai Hinojosa MD [address] [place] [address] RE:phone call Social History Tobacco Use Types Packs/Day Years [...] on filedocumented in this encounter Care Teams Wood Strip Block Floor Installer Relationship Specialty Start Date End Date Esteban Slater MD [address] [place] [address] PCP - General Family Medicine 07/21/18 documented as of this encounter
--- OUTSIDE RECORDS SUMMARY | 2024-12-01 21:40 | XMS_ITS | Encounter Summary ---
Author Organization [facility] Address [address] [place] [address] Care Team Providers Care Sheet Metal Production Worker Name Role Phone Esteban Slater MD Primary Care Provider [phone] Source Comments In the event this information is protected by the Federal Confidentiality of Alcohol and Drug AbusePatient Records regulations: The Federal rules restrict any use of the information to criminally investigate or prosecute any alcohol or drug abuse patient.[facility] Encounter Details Date Type Department Care Team (Late st Contact Info) Description 01/26/2019 Patient Msg [facility] [address] [place] [address] Provider, [facility] Izabel Caregiver Access Social History Tobacco Use Types Packs/Day Years [...] on filedocumented in this encounter Care Teams Sheet Metal Production Worker Relationship Specialty Start Date End Date Esteban Slater MD [address] [place] [address] PCP - General Family Medicine 07/21/18 documented as of this encounter
--- OUTSIDE RECORDS SUMMARY | 2024-12-01 21:40 | XMS_ITS | Encounter Summary ---
Author Organization [facility] Address [facility]-[id number] [address] [place] [address] Care Team Providers Care Security Project Manager Name Role Phone Alexey Connor Primary Care Provider [phone] Encounter Details Date Type Department Care Team (Late st Contact Info) Description 12/25/2021 Orders Only [facility] - Family Medicine [address] [place] [address] External, Scanning Provider Social History Tobacco Use [...] Problems Recent Progress Patient-Stated? Author go to [place] for therapy General Yes Ronit Sorensen LSW Note: Evaluation of progress towards goal: will DC from ED to SNF upon arrangements Long-Term Goals General Yes Amparo Nix LSW Note: Evaluation of progress towards goal: return to [facility] documented as of this encounter Procedures Procedure Name Priority Date/Time Associated Diagnosis Comments XR SHOULDER RT MIN 2 VWS Routine 12/21/2021 documented in this encounter Results * X-ray shoulder right minimum 2 views (12/21/2021) Anatomical Region Laterality Modality MSK, Upper Extremities, Shoulder Right Computed Radiography us Scanning Provider External IMG DIAGNOSTIC IMAGIN G ORDERABLES Final Result documented in this encounter Visit Diagnoses Not on filedocumented in this encounter Additional Health Concerns Infection Onset Date Last Indicated Resolved Time COVID-19 Rule-Out 04/08/2022 04/08/2022 04/08/2022 11:12 PM EST documented as of this encounter Care Teams Security Project Manager Relationship Specialty Start Date End Date Alexey Connor DO [address] [facility], [place] [address] PCP - General Family Medicine 03/27/22 documented as of this encounter
--- OUTSIDE RECORDS SUMMARY | 2024-12-01 21:40 | XMS_ITS | Encounter Summary ---
Author Organization [facility] Address [address] [place] [address] Care Team Providers Care Strategic Consultant Name Role Phone Esteban Slater MD Primary Care Provider [phone] Source Comments In the event this information is protected by the Federal Confidentiality of Alcohol and Drug AbusePatient Records regulations: The Federal rules restrict any use of the information to criminally investigate or prosecute any alcohol or drug abuse patient.[facility] Encounter Details Date Type Department Care Team (Late st Contact Info) Description 12/17/2023 Patient Msg [address] [place] [address] [place] [address] Provider, Ccf CNR Virtual Shared Medical Appointment [facility] - December 2023 Social History Tobacco Use Types Packs/Day Years Used Date Smoking Tobacco: Former Cigarettes Q uit: 07/21/2017 Passive Smoke Exposure: Past Smokeless Tobacco: Never Alcohol Use Standard Drinks/Week [...] is lower risk 8 05/14/2023 Data from: https://www.neighborhoodatlas.medicine.[facility].edu/. Last address used for calculation [address] [facility] 05/14/2023 Comments No Sex and Gender Information Value Date Recorded Sex Assigned at Not on file Legal Sex Female 9:36 AM EST Gender Identity Not on file Sexual Orientation Not on file documented as of this encounter Plan of Treatment Not on file documented as of this encounter Visit Diagnoses Not on filedocumented in this encounter Care Teams Strategic Consultant Relationship Specialty Start Date End Date Esteban Slater MD [address] [place] [address] PCP - General Family Medicine 07/21/18 documented as of this encounter
--- OUTSIDE RECORDS SUMMARY | 2024-12-01 21:40 | XMS_ITS | Encounter Summary ---
Author Organization [facility] Address [address] [place] [address] Care Team Providers Care Can Technician Name Role Phone Esteban Slater MD Primary Care Provider [phone] Source Comments In the event this information is protected by the Federal Confidentiality of Alcohol and Drug AbusePatient Records regulations: The Federal rules restrict any use of the information to criminally investigate or prosecute any alcohol or drug abuse patient.[facility] Encounter Details Date Type Department Care Team (Late st Contact Info) Description 11/25/2020 Get Medical Advice Neurology [address] [place], [place] [id number] Tai Hinojosa MD [address] [place] [address] RE: Non-Urgent Medical Question Social History Tobacco [...] N ot on file 03/20/2020 Data from: https://www.neighborhoodatlas.medicine.[facility]/. Last address used for calculation Not on file 03/20/2020 Comments Unknown Sex and Gender Information Value Date Recorded Sex Assigned at Not on file Legal Sex Female 9:36 AM EST Gender Identity Not on file Sexual Orientation Not on file documented as of this encounter Miscellaneous Notes * Telephone Encounter - Mary Gibbs) - 11/25/2020 8:10 AM EDT Being handled in Refill Rx. Mary Gibbs Ma documented in this encounter Plan of Treatment Not on file documented as of this encounter Visit Diagnoses Not on filedocumented in this encounter Care Teams Can Technician Relationship Specialty Start Date End Date Esteban Slater MD [address] [place] [address] PCP - General Family Medicine 07/21/18 documented as of this encounter
--- OUTSIDE RECORDS SUMMARY | 2024-12-01 21:40 | XMS_ITS | Encounter Summary ---
Author Organization [facility] Address [address] [place] [address] Care Team Providers Care Sleeve Turner Name Role Phone Esteban Slater MD Primary Care Provider [phone] Source Comments In the event this information is protected by the Federal Confidentiality of Alcohol and Drug AbusePatient Records regulations: The Federal rules restrict any use of the information to criminally investigate or prosecute any alcohol or drug abuse patient.[facility] Encounter Details Date Type Department Care Team (Late st Contact Info) Description 05/23/2020 Get Medical Advice Neurology [address] [place], [place] [id number] Tai Hinojosa MD [address] [place] [address] RE: Non-Urgent Medical Question Social History Tobacco [...] N ot on file 03/20/2020 Data from: https://www.neighborhoodatlas.medicine.[facility]/. Last address used for calculation [...] on filedocumented in this encounter Care Teams Sleeve Turner Relationship Specialty Start Date End Date Esteban Slater MD [address] [place] [address] PCP - General Family Medicine 07/21/18 documented as of this encounter
--- OUTSIDE RECORDS SUMMARY | 2024-12-01 21:40 | XMS_ITS | Encounter Summary ---
Author Organization [facility] Address [address] [place] [address] Care Team Providers Care Fermenter Helper Name Role Phone Esteban Slater MD Primary Care Provider [phone] Source Comments In the event this information is protected by the Federal Confidentiality of Alcohol and Drug AbusePatient Records regulations: The Federal rules restrict any use of the information to criminally investigate or prosecute any alcohol or drug abuse patient.[facility] Encounter Details Date Type Department Care Team (Late st Contact Info) Description 05/30/2020 Get Medical Advice Neurology [address] [place], [place] [id number] Tai Hinojosa MD [address] [place] [address] Non-Urgent Medical Question Social History Tobacco Use [...] N ot on file 03/20/2020 Data from: https://www.neighborhoodatlas.medicine.[facility]/. Last address used for calculation Not on file 03/20/2020 Comments Unknown Sex and Gender Information Value Date Recorded Sex Assigned at Not on file Legal Sex Female 9:36 AM EST Gender Identity Not on file Sexual Orientation Not on file documented as of this encounter Miscellaneous Notes * Telephone Encounter - Tai Hinojosa - 06/02/2020 3:33 AM EST Timing... * Telephone Encounter - Mary Gibbs) - 05/31/2020 11:10 AM EST Called the patient and let her know that [facility] is not sure why they contacted her about only covering it one time. The medication has been approved and that when she goes to fill her medication there shouldn't be a problem. Mary Gibbs Ma documented in this encounter Plan of Treatment Not on file documented as of this encounter Visit Diagnoses Not on filedocumented in this encounter Care Teams Fermenter Helper Relationship Specialty Start Date End Date Esteban Slater MD [address] [place] [address] PCP - General Family Medicine 07/21/18 documented as of this encounter
--- OUTSIDE RECORDS SUMMARY | 2024-12-01 21:40 | XMS_ITS | Encounter Summary ---
Author Organization [facility] Address [address] [place] [address] Care Team Providers Care Trimming Department Blocker Name Role Phone Esteban Slater MD Primary Care Provider [phone] Source Comments In the event this information is protected by the Federal Confidentiality of Alcohol and Drug AbusePatient Records regulations: The Federal rules restrict any use of the information to criminally investigate or prosecute any alcohol or drug abuse patient.[facility] Encounter Details Date Type Department Care Team (Late st Contact Info) Description 12/16/2019 Get Medical Advice Neurological Orthodoxy [address] [place], [place] [id number] Tai Hinojosa MD [address] [place] [address] RE: Non-Urgent Medical Question Social [...] have Coronavirus / COVID-19? No / Unsure 12/17/2019 3:16 PM EDT documented as of this encounter Plan of Treatment Not on file documented as of this encounter Visit Diagnoses Not on filedocumented in this encounter Care Teams Trimming Department Blocker Relationship Specialty Start Date End Date Esteban Slater MD [address] [place] [address] PCP - General Family Medicine 07/21/18 documented as of this encounter
--- OUTSIDE RECORDS SUMMARY | 2024-12-01 21:40 | XMS_ITS | Encounter Summary ---
Author Organization [facility] Address [address] [place] [address] Care Team Providers Care Development Representative Name Role Phone Esteban Slater MD Primary Care Provider [phone] Source Comments In the event this information is protected by the Federal Confidentiality of Alcohol and Drug AbusePatient Records regulations: The Federal rules restrict any use of the information to criminally investigate or prosecute any alcohol or drug abuse patient.[facility] Encounter Details Date Type Department Care Team (Late st Contact Info) Description 05/27/2020 Get Medical Advice Neurology [address] [place], [place] [phone] Tai Hinojosa MD [address] [place] [address] RE: Non-Urgent Medical Question Social History Tobacco [...] N ot on file 03/20/2020 Data from: https://www.neighborhoodatlas.medicine.[facility]/. Last address used for calculation Not [...] on filedocumented in this encounter Care Teams Development Representative Relationship Specialty Start Date End Date Esteban Slater MD [address] [place] [address] PCP - General Family Medicine 07/21/18 documented as of this encounter
--- OUTSIDE RECORDS SUMMARY | 2024-12-01 21:40 | XMS_ITS | Encounter Summary ---
Author Organization [facility] Address [address] [place] [address] Care Team Providers Care Electrical Tester Name Role Phone Esteban Slater MD Primary Care Provider [phone] Source Comments In the event this information is protected by the Federal Confidentiality of Alcohol and Drug AbusePatient Records regulations: The Federal rules restrict any use of the information to criminally investigate or prosecute any alcohol or drug abuse patient.[facility] Encounter Details Date Type Department Care Team (Late st Contact Info) Description 12/16/2019 Get Medical Advice Neurological Pentecostalism [address] [place], [place] [id number] Tai Hinojosa MD [address] [place] [address] RE: Non-Urgent Medical Question Social [...] on filedocumented in this encounter Care Teams Electrical Tester Relationship Specialty Start Date End Date Esteban Slater MD [address] [place] [address] PCP - General Family Medicine 07/21/18 documented as of this encounter
--- OUTSIDE RECORDS SUMMARY | 2024-12-01 21:40 | XMS_ITS | Encounter Summary ---
Author Organization [facility] Address [address] [place] [address] Care Team Providers Care Forming Operator Name Role Phone Esteban Slater MD Primary Care Provider [phone] Source Comments In the event this information is protected by the Federal Confidentiality of Alcohol and Drug AbusePatient Records regulations: The Federal rules restrict any use of the information to criminally investigate or prosecute any alcohol or drug abuse patient.[facility] Encounter Details Date Type Department Care Team (Late st Contact Info) Description 06/13/2020 Get Medical Advice Neurology [address] [place], [place] [id number] Tai Hinojosa MD [address] [place] [address] Non-Urgent Medical Question Social History Tobacco Use [...] N ot on file 03/20/2020 Data from: https://www.neighborhoodatlas.medicine.[facility]/. Last address used for calculation [...] on filedocumented in this encounter Care Teams Forming Operator Relationship Specialty Start Date End Date Esteban Slater MD [address] [place] [address] PCP - General Family Medicine 07/21/18 documented as of this encounter
--- OUTSIDE RECORDS SUMMARY | 2024-12-01 21:40 | XMS_ITS | Encounter Summary ---
Author Organization [facility] Address [id number] [address] [place] [address] Care Team Providers Care Admission Specialist Name Role Phone Alexey Connor Primary Care Provider [phone] Encounter Details Date Type Department Care Team (Late st Contact Info) Description 02/13/2024 Orders Only [facility] Internal Medicine - Family Medicine [address] [place] [address] Ref Prov, [place] [address] Social History Tobacco Use Types Packs/Day Years [...] Problems Recent Progress Patient-Stated? Author go to [place] for therapy General Yes Ronit Sorensen LSW Note: Evaluation of progress towards goal: will DC from ED to SNF upon arrangements Long-Term Goals General Yes Amparo Nix LSW Note: Evaluation of progress towards goal: return to [facility] documented as of this encounter Procedures Procedure Name Priority Date/Time Associated Diagnosis Comments AEROBIC CULTURE, WOUND Routine 02/12/2024 4:03 PM EDT MULTIPLE LABS Routine 02/12/2024 2:55 PM EDT CBC W AUTO DIFF BLD Routine 02/12/2024 8:59 AM EDT documented in this encounter Results * AEROBIC CULTURE, WOUND (02/12/2024 4:03 PM EDT) us Not In System Ref Prov LAB BLOOD ORDERABLES Catia l Result Performing Organization Address [facility] de Phone Number MANUALLY TRANSCRIBED RESULTS * Multiple labs (02/12/2024 2:55 PM EDT) us Not In System Ref Prov MD IMAGING Final Res ult Performing Organization Address [facility] de Phone Number MANUALLY TRANSCRIBED RESULTS * CBC W Auto Diff Bld (02/12/2024 8:59 AM EDT) us Not In System Ref Prov LAB BLOOD ORDERABLES Catia l Result Performing Organization Address [facility] de Phone Number MANUALLY TRANSCRIBED RESULTS documented in this encounter Visit Diagnoses Not on filedocumented in this encounter Care Teams Admission Specialist Relationship Specialty Start Date End Date Alexey Connor DO [address] [place] [address] PCP - General Family Medicine 03/27/22 documented as of this encounter
--- OUTSIDE RECORDS SUMMARY | 2024-12-01 21:40 | XMS_ITS | Encounter Summary ---
Author Organization [facility] Address [address] [place] [address] Care Team Providers Care Film Writer Name Role Phone Esteban Slater MD Primary Care Provider [phone] Source Comments In the event this information is protected by the Federal Confidentiality of Alcohol and Drug AbusePatient Records regulations: The Federal rules restrict any use of the information to criminally investigate or prosecute any alcohol or drug abuse patient.[facility] Encounter Details Date Type Department Care Team (Late st Contact Info) Description 06/06/2020 Get Medical Advice Neurology [address] [place], [place] [phone] Tai Hinojosa MD [address] [place] [address] RE: Non-Urgent Medical Question Social History Tobacco [...] N ot on file 03/20/2020 Data from: https://www.neighborhoodatlas.medicine.[facility]/. Last address used for calculation Not [...] on filedocumented in this encounter Care Teams Film Writer Relationship Specialty Start Date End Date Esteban Slater MD [address] [place] [address] PCP - General Family Medicine 07/21/18 documented as of this encounter
--- OUTSIDE RECORDS SUMMARY | 2024-12-01 21:40 | XMS_ITS | Encounter Summary ---
Author Organization [facility] Address [address] [place] [address] Care Team Providers Care Gas Pit Worker Name Role Phone Esteban Slater MD Primary Care Provider [phone] Source Comments In the event this information is protected by the Federal Confidentiality of Alcohol and Drug AbusePatient Records regulations: The Federal rules restrict any use of the information to criminally investigate or prosecute any alcohol or drug abuse patient.[facility] Encounter Details Date Type Department Care Team (Late st Contact Info) Description 08/29/2020 Get Medical Advice Neurology [address] [place], [place] [phone] Tai Hinojosa MD [address] [place] [address] Non-Urgent Medical Question Social History Tobacco Use [...] N ot on file 03/20/2020 Data from: https://www.neighborhoodatlas.medicine.[facility]/. Last address used for calculation Not on file 03/20/2020 Comments Unknown Sex and Gender Information Value Date Recorded Sex Assigned at Not on file Legal Sex Female 9:36 AM EST Gender Identity Not on file Sexual Orientation Not on file documented as of this encounter Miscellaneous Notes * Telephone Encounter - Mary Gibbs) - 08/29/2020 9:30 AM EDT I called the patient and she just needed the address for her next appointment with Dr Hinojosa. Mary Gibbs Ma documented in this encounter Plan of Treatment Not on file documented as of this encounter Visit Diagnoses Not on filedocumented in this encounter Care Teams Gas Pit Worker Relationship Specialty Start Date End Date Esteban Slater MD [address] [place] [address] PCP - General Family Medicine 07/21/18 documented as of this encounter
--- OUTSIDE RECORDS SUMMARY | 2024-12-01 21:40 | XMS_ITS | Encounter Summary ---
Author Organization [facility] Address [id number] [address] [place] [address] Care Team Providers Care Pan Tank Worker Name Role Phone Alexey Connor Primary Care Provider [phone] Encounter Details Date Type Department Care Team (Late st Contact Info) Description 02/17/2024 Orders Only [facility] Internal Medicine - Family Medicine [address] [place] [address] Ref Prov, [place] [address] Social History Tobacco Use Types Packs/Day Years [...] Problems Recent Progress Patient-Stated? Author go to [place] for therapy General Yes Ronit Sorensen LSW Note: Evaluation of progress towards goal: will DC from ED to SNF upon arrangements Long-Term Goals General Yes Amparo Nix LSW Note: Evaluation of progress towards goal: return to [facility] documented as of this encounter Procedures Procedure Name Priority Date/Time Associated Diagnosis Comments AEROBIC CULTURE, WOUND Routine 02/12/2024 2:22 PM EDT documented in this encounter Results * AEROBIC CULTURE, WOUND (02/12/2024 2:22 PM EDT) us Not In System Ref Prov LAB BLOOD ORDERABLES Catia l Result MANUALLY TRANSCRIBED RESULTS documented in this encounter Visit Diagnoses Not on filedocumented in this encounter Care Teams Pan Tank Worker Relationship Specialty Start Date End Date Alexey Connor DO [address], [place] [address] PCP - General Family Medicine 03/27/22 documented as of this encounter
--- OUTSIDE RECORDS SUMMARY | 2024-12-01 21:40 | XMS_ITS | Encounter Summary ---
Author Organization [facility] Address [id number] [address] [place] [address] Care Team Providers Care Business Employment Specialist Name Role Phone Alexey Connor Primary Care Provider [phone] Encounter Details Date Type Department Care Team (Late st Contact Info) Description 10/23/2022 Orders Only [facility] - Family Medicine [address] [place] [address] External, Scanning Provider Social History Tobacco Use [...] Problems Recent Progress Patient-Stated? Author go to [place] for therapy General Yes Ronit Sorensen LSW Note: Evaluation of progress towards goal: will DC from ED to SNF upon arrangements Long-Term Goals General Yes Amparo Nix LSW Note: Evaluation of progress towards goal: return to [facility] documented as of this encounter Procedures Procedure Name Priority Date/Time Associated Diagnosis Comments XR FOREARM LT 2 VWS Routine 10/23/2022 documented in this encounter Results * X-ray forearm left 2 views (10/23/2022) Anatomical Region Laterality Modality Upper Extremities, MSK, Forearm Left Computed Radiography us Scanning Provider External IMG DIAGNOSTIC IMAGIN G ORDERABLES Final Result documented in this encounter Visit Diagnoses Not on filedocumented in this encounter Care Teams Business Employment Specialist Relationship Specialty Start Date End Date Alexey Connor DO [address] [facility], [place] [address] PCP - General Family Medicine 03/27/22 documented as of this encounter
--- OUTSIDE RECORDS SUMMARY | 2024-12-01 21:40 | XMS_ITS | Encounter Summary ---
Author Organization [facility] Address [address] [place] [address] Care Team Providers Care Tip Puncher Name Role Phone Esteban Slater MD Primary Care Provider [phone] Source Comments In the event this information is protected by the Federal Confidentiality of Alcohol and Drug AbusePatient Records regulations: The Federal rules restrict any use of the information to criminally investigate or prosecute any alcohol or drug abuse patient.[facility] Encounter Details Date Type Department Care Team (Late st Contact Info) Description 03/26/2020 Patient Msg Endocrinology [address] [place], [place] [id number] Provider, Ccf Message from Office of Tai Hinojosa MD - Future Appointment Social History Tobacco Use Types Packs/Day Years [...] N ot on file 03/20/2020 Data from: https://www.neighborhoodatlas.medicine.[facility].edu/. Last address used for calculation Not on [...] on filedocumented in this encounter Care Teams Tip Puncher Relationship Specialty Start Date End Date Esteban Slater MD [address] [place] [address] PCP - General Family Medicine 07/21/18 documented as of this encounter
--- OUTSIDE RECORDS SUMMARY | 2024-12-01 21:40 | XMS_ITS | Encounter Summary ---
Author Organization [facility] Address [address] [place] [address] Care Team Providers Care Content Publisher Name Role Phone Esteban Slater MD Primary Care Provider [phone] Source Comments In the event this information is protected by the Federal Confidentiality of Alcohol and Drug AbusePatient Records regulations: The Federal rules restrict any use of the information to criminally investigate or prosecute any alcohol or drug abuse patient.[facility] Encounter Details Date Type Department Care Team (Late st Contact Info) Description 06/06/2020 Get Medical Advice Neurology [address] [place], [place] [phone] Tai Hinojosa MD [address] [place] [address] Non-Urgent Medical Question Social History Tobacco Use [...] N ot on file 03/20/2020 Data from: https://www.neighborhoodatlas.medicine.[facility]/. Last address used for calculation Not [...] on filedocumented in this encounter Care Teams Content Publisher Relationship Specialty Start Date End Date Esteban Slater MD [address] [place] [address] PCP - General Family Medicine 07/21/18 documented as of this encounter
--- OUTSIDE RECORDS SUMMARY | 2024-12-01 21:40 | XMS_ITS | Encounter Summary ---
Author Organization [facility] Address [address] [place] [address] Care Team Providers Care Shaft Headman Name Role Phone Esteban Slater MD Primary Care Provider [phone] Source Comments In the event this information is protected by the Federal Confidentiality of Alcohol and Drug AbusePatient Records regulations: The Federal rules restrict any use of the information to criminally investigate or prosecute any alcohol or drug abuse patient.[facility] Encounter Details Date Type Department Care Team (Late st Contact Info) Description 10/26/2019 Get Medical Advice Neurological Sikhism [address] [place], [place] [id number] Tai Hinojosa MD [address] [place] [address] RE: Non-Urgent Medical Question Social [...] on filedocumented in this encounter Care Teams Shaft Headman Relationship Specialty Start Date End Date Esteban Slater MD [address] [place] [address] PCP - General Family Medicine 07/21/18 documented as of this encounter
--- OUTSIDE RECORDS SUMMARY | 2024-12-01 21:42 | XMS_ITS | CCD ---
Author Organization [facility] ion [facility] Care Team Providers Care Dissolver Operator Name Role Phone HERVE STARKEY Admitting Unavailable ESTEBAN GARZA Referring Unavailable ESTEBAN GARZA Primary Care Unavailable HERVE STARKEY Attending Unavailable Alexey Polo Unavailable Radha Bosch Unavailable Stevenson Corbin Unavailable Sena Eugene Unavailable MD Stevenson Corbin Attending Provider [phone] DO Alexey Polo Primary Care Provider Esteban Garza Primary Care Provider Esteban Garza Primary Care Provider CHRIST, DR ALEXEY Garcia Primary Care Unavailable ZARI Gore, LENA Attending Unavailable ZARI ., LENA Admitting [...] Garcia Attending Unavailable CHRIST, DR ALEXEY Garcia Admobed Unavailable CHRIST, DR ALEXEY Garcia Primary Care [...] SOFI Admitting Unavailable NIGHAT, SOFI Consulting Unavailable JEFE SAEED Consulting Unavailable Furlong, DO Alexey Primary Care Provider MD Stevenson Corbin Attending Provider [phone] Esteban Garza Primary Care Provider FURSAMANTHANG, ALEXEY Garcia Referring Unavailable FURLONG, ALEXEY Garcia Primary Care Unavailable FURLONG, LAEXEY Garcia Referring Unavailable FURLONG, ALEXEY Garcia Primary Care Unavailable FURLONG, ALEXEY G Referring Unavailable FURLONG, ALEXEY G Primary Care Unavailable FURLONG, ALEXEY G Referring Unavailable FURLONG, ALEXEY G Primary Care Unavailable Esteban Garza Primary Care Provider [phone] DO Alexey Polo Primary Care Provider [phone] MD Stevenson Corbin Attending Provider DO Nickolas Hawthorne Attending Provider [phone] Alexey Polo DO Primary Care Provider Stevenson Corbin MD Attending Provider Nickolas Hawthorne DO Attending Provider Alexey Polo DO Primary Care Provider Esteban Garza MD Primary Care Provider [phone] Alexey Polo DO Primary Care Provider [phone] Nickolas Hawthorne DO Attending Provider Alexey Polo DO Primary Care Provider [phone] Nickolas Hawthorne DO Attending Provider Furlong DO, Alexey G Primary Care Provider [phone] LEONIE JOYA Attending Unavailable MELA, ERNESTO Referring Unavailable MELA, ERNESTO Referring Unavailable MELA, ERNESTO Referring Unavailable MELA, ERNESTO Referring Unavailable TOAN, SAMAR Attending Unavailable MELA, ERNESTO Attending Unavailable ELTAHAWY, EHAB Referring Unavailable MELA, ERNESTO Attending Unavailable MELA, ERNESTO Referring Unavailable MELA, ERNESTO Referring Unavailable MELA, ERNESTO Attending Unavailable MELA, ERNESTO Attending Unavailable ELTAHAWY, EHAB Admitting Unavailable ELTAHAWY, EHAB Attending Unavailable MELA, ERNESTO Admitting Unavailable MELA, ERNESTO Attending Unavailable TOAN, MAYCOAR Attending Unavailable Esteban Garza MD Primary Care Provider ESTEBAN GARZA Primary Care Unavailable TAI HINOJOSA Attending Unavailable Marine, Nickolas A Attending Unavailable Marine, Nickolas A Admitting Unavailable Furlong, Alexey Primary Care Unavailable Marine, Nickolas A Attending Unavailable Marine, Nickolas A Admitting Unavailable Furlong, Alexey Primary Care Unavailable Marine, Nickolas A Attending Unavailable Marine, Nickolas A Admitting Unavailable Furlong, Alexey Primary Care Unavailable Furlong, Alexey Primary Care Unavailable Marine, Nickolas A Admitting Unavailable Marine, Nickolas A Attending Unavailable Furlong, Alexey Primary Care Unavailable Marine, Nickolas A Admitting Unavailable Marine, Nickolas A Attending Unavailable Olexa, Stevenson Admitting Unavailable Olexa, Stevenson Attending Unavailable Furlong, Alexey Primary Care Unavailable Furlong, Alexey Primary Care Unavailable Marine, Nickolas A Admitting Unavailable Marine, Nickolas A Attending Unavailable Furlong, Alexey Primary Care Unavailable Marine, Nickolas A Attending Unavailable Marine, Nickolas A Admitting Unavailable BRIGIDO, AHMAD F Attending Unavailable BRIGIDO, AHMAD F Referring Unavailable BRIGIDO, AHMAD F Attending Unavailable Allergies Allergy Classification Reported Allergen(s) Allergy Type Date of Onset Reaction(s) Facility (18 sources) Azithromycin; Translations: [AZITHROMYCIN] Drug Allergy 0 Unknow [facility] Repository Comment on above: Listed as an allergy on her PCP notes (20 sources) Erythromycin; Translations: [erythromycin] Drug Allergy 7 Unknown, Nausea And Vomiting, GI intolerance, Other [facility] (20 sources) erythromycin base; Translations: [Erythromycin Base] Allergy to substance 1 Unknown [facility] (17 sources) Clarithromycin; Translations: [CLARITHROMYCIN] Drug Allergy 1 Nausea And Vomiting, GI intolerance [facility] (6 sources) Acetaminophen / HYDROcodone Drug Allergy 4 GI intolerance [facility] (6 sources) Azithromycin Drug Allergy 2 Unknown [facility] (1 source) Azithromycin Drug Allergy 5 [facility] Repository Medications Current Medications Medication Drug Class(es) Dates Sig (Normalized) Sig (Original) acetaminophen 325 mg / HYDROcodone bitartrate 5 mg oral tablet (4 sources) Opioid Agonist take 1 tablet by courtney th every eight hours as needed HYDROcodone-acetami nophen (NORCO) 5-325 mg per tablet Take 1 tablet by mouth every 8 hours as needed for pain. Active take 1 tablet by courtney th every six hours HYDROcodone-Acetaminophen 5-325 MG 1 tab let as needed Orally every 6 hrs Active Comment on above: Take 1 tablet by courtney th every 8 hours as needed for pain. alendronic acid 70 mg oral tablet (20 sources) Bisphosphonate Start: 05-07-2018 End: 06-01-2024 alendronate (FOSAMAX) 70 mg tablet once each [...] mouth and stay upright for 30 min. amantadine hydrochloride 100 mg oral tablet (18 sources) Influenza A M2 Protein Inhibitor Start: 12-27-19 24 take 1 tablet by mouth in the morning amantadine (Symmetrel) 100 MG tablet Take 100 mg by mouth in the morning and 100 mg in the evening. 12/27/2023 Active amLODIPine 10 mg oral tablet (20 sources) Dihydropyridine Calcium Channel Gilson Start: 11-22-19 24 take 1 tablet by mouth once daily amLODIPine (Norvasc) 10 MG tablet Take 1 tablet by mouth Daily 11/22/2023 Active Start: 09-13-2021 End: 01-29-2024 take 2 tablets by mouth once daily Amlodipine 5 mg tablet Discontinued 10 MG PO Daily September 13, 2021 12:00am January 29, 2024 1:49pm Start: 09-13-2021 End: 01-29-2024 take 10 mg by mouth once daily Amlodipine Discontinued 10 MG PO Daily September 13, 2021 12:00am January 29, 2024 1:49pm Start: 07-27-2020 take 1 tablet by courtney th every twenty-four hours amLODIPine Besylate 10 MG 1 tablet Orally Once a day Jul, Active amLODIPine (NORV ASC) 5 mg tablet Take by mouth once daily. Active Comment on above: Take by mouth once d aily. ascorbic acid 500 mg oral tablet (5 sources) Vitamin C take 1 tablet by mouth once daily ascorbic acid, vitamin C, (VITAMIN C WITH NOVA HIPS) 500 mg tablet Take 500 mg by mouth once daily. Active Comment on above: Take 500 mg by mouth once daily. aspirin 81 mg delayed release oral tablet (13 sources) Platelet Aggregation Inhibitor, Nonsteroidal Anti-inflammatory Drug Start: 01-29-20 24 Aspirin (Adult Low Dose Aspirin) 81 mg tablet,delayed release (DR/EC) Active 81 MG PO Daily January 29, 2024 12:00am atorvastatin 40 mg oral tablet (20 sources) [...] Active calcium carbonate 1500 mg oral tablet (10 sources) take 1 tablet by mouth in [...] Tablet Active 2 TAB PO Daily September 13, 2021 12:00am calcium carbonat e-vitamin D3 (CALCIUM 600 WITH VITAMIN D3) 600 mg(1,500mg) - 400 unit tablet,chewable Chew 2 tablets and swallow daily. Active camphor 0.002 mg/mg / menthol 0.035 mg/mg topical gel (11 sources) Start: 01-29-2024 Camphor-Menthol (Freeze It Relief) 0.2-3.5 % gel Active 1 APPLIC TOPICAL 2-4 TIMES PER DAY as needed for pain January 29, 2024 12:00am rub in gently and completely carBAMazepine 200 mg oral tablet (19 sources) Mood Stabilizer Start: 11-12-2023 End: 02-10-2024 carBAMazepine (TEGRETOL) 200 mg tablet Indications: Lingual facial buccal dyskinesia , Dyskinesia, tardive Take 1 tablet by mouth three times a day. [Start with this only twice a day for 1-2 weeks, then go to 3 doses per day 90 tablet 2 11/12/2023 Active celecoxib 100 mg oral capsule (8 sources) Nonsteroidal Anti-inflammatory Drug take 1 capsule [...] 0.5 MG PO Three times daily January 29, 2024 12:00am 0.5-1.0 tid Start: 01-08-2023 take 1.5 tablets [...] Twice daily as needed for Anxiety July 05, 2020 12:00am September 13, 2021 12:00pm Start: 06-28-2020 End: 07-05-2020 take 1 tablet by mouth three times daily Clonazepam 1 mg Tablet Discontinued 1 MG PO Three times daily June 28, 2020 12:00am July 05, 2020 10:25am Comment on above: Take 1 tablet by courtney th three times daily for 90 days. [including bedtime] Take 1 mg by mouth t wice daily as needed. Take 1.5 tablets by mouth three times daily for 90 days. [including bedtime] cyclobenzaprine hydrochloride 10 mg oral tablet (20 sources) Muscle Relaxant Start: 023 End: take 1 tablet by mouth three times [...] Discontinued 6 MG PO Twice daily September 13, 2021 12:00am January 29, 2024 2:08pm Comment on above: Take 1 tablet (6 [...] with food Orally Once a day Active Deutetrabenazine ER (Austedo XR) 30 MG tablet sustained-release 24 hour (2 sources) take 1 tablet by mouth once daily, then take 1 tablet by mouth every twenty-four hours Deutetrabenazine ER (Austedo XR) 30 MG tablet sustained-release 24 hour Take 30 mg by mouth Daily Active dextromethorphan hydrobromide 2 mg/ml / guaiFENesin 20 mg/ml oral solution (12 sources) Uncompetitive J-aheiop-Y-aspartat e Receptor Antagonist, Sigma-1 Agonist take 10 mL by mouth every six hours as needed for cough dextromethorphan-guaiF ENesin (ROBITUSSIN-DM) 10-100 mg/5 mL liquid Take 10 mL by mouth every 6 (six) hours as needed for cough. Give 10 milliliter by mouth every 6 hours as needed for cough Active Comment on above: Take 10 mL by mouth every 6 hours as needed. ferrous sulfate 325 mg oral tablet (20 sources) Start : 09-13 take 1 tablet by mouth every week Ferrous Sulfate 325 mg (65 mg iron) Tablet Active 325 MG PO 3 Times a week September 13, 2021 12:00am takes every mon, wed, fri take 1 tablet by courtney th once daily at breakfast ferrous sulfate 325 mg (65 mg iron) tabl et Take 325 mg by mouth daily with breakfast. Active Ferrous Sulfate 325 mg (65 mg iron) cpER Take by mouth. Active Ferrous Sulfate 325 mg (65 mg [...] Start: 09-13-2021 Fluticasone Pr opionate 50 mcg/actuation Lawrence,Suspension Active 1 SPRAY INTRANASAL Daily September 13, 2021 12:00am take 1 puff(s) by in halation twice daily Fluticasone Propionate 50 mcg/actuation diskus inhaler Inhale 1 Puff as instructed twice daily. Active take 1 spray(s) nasa l route [...] IN THE EVENING 09/21/2020 Active Start: 06-29-2020 End: 06-01-2024 take 2 capsules by mouth at bedtime Gabapentin 300 mg capsule Discontinued 600 MG PO Bedtime June 29, 2020 12:00am June 01, 2024 12:55pm Start: 06-29-2020 take 600 mg by mouth at bedtim e Gabapentin Active 600 MG PO Bedtime June 29, 2020 12:00am Start: 06-28-2020 End: 07-05-2020 Gabapentin 300 mg Capsule Discontinued 300 MG PO Twice daily June 28, 2020 12:00am July 05, 2020 10:25am 1 (300MG) in AM, 1 (300 MG) in afternoon, 2 (600 MG) at bedtime take 1 tablet by courtney th at bedtime gabapentin (Neurontin) 600 MG tablet Take 600 mg by mouth at bedtime Active Comment on above: Take 1 capsule in th e morning, one in early afternoon, and 2 in the evening Take 600 mg by mouth three times a day. guaiFENesin 20 mg/ml oral solution (6 sources) Start: 06-01-19 take 200 mg by mouth every four hours as needed Guaifenesin 100 mg/5 mL liquid Active 200 MG PO Every 4 hours as needed June 01, 2024 1:00am levothyroxine sodium 0.075 mg oral tablet (20 sources) l-Thyroxine Start: 11-26-19 take 1 tablet by mouth once daily [...] oral capsule (20 sources) Opioid Agonist Start: 06-01-2024 take 1 capsule by mouth every six hours as needed Loperamide (Imodium A-D) 2 mg capsule Active 2 MG PO Every 6 hours as needed June 01, 2024 1:00am Start: 09-13-2021 End: 01-29-2024 Loperamide (Imodium A-D) 2 m g Capsule Discontinued 1 - 2 MG PO Q6H as needed for Diarrhea September 13, 2021 12:00am January 29, 2024 1:56pm take 1 tablet by courtney th every six hours as needed for diarrhea loperamide (IMODIUM A-D) 2 mg tablet Take 1 tablet (2 mg total) by mouth every 6 (six) hours as needed for diarrhea. Give one tablet by mouth every 6 hours as needed for loose stool Active take 1 capsule by mo uth every six hours as needed loperamide (IMODIUM) 2 mg cap(s) Take 2 mg by mouth four times daily as needed. Active take 1 tablet by courtney th every six hours Imodium A-D 2 MG 1 tablet as needed Orally Four times a day Active Comment on above: Take 2 mg by mouth f our times daily as needed. menthol 0.04 mg/mg topical gel (20 sources) Start: 06-01-2024 Menthol (Biofreeze (Menthol)) 4 % gel Active 1 APPLIC TOPICAL 2-4 TIMES PER DAY as needed June 01, 2024 1:00am Start: 09-13-2021 End: 10-18-2021 Menthol (Biofreeze (Menthol) ) 4 % Gel Discontinued 1 APPLIC TOPICAL Q8H as needed for shoulder pain September 13, 2021 12:00am October 18, 2021 7:26am menthol (BIOFREE ZE, MENTHOL,) 4 % topical gel Apply to affected area three times daily as needed. Active Comment on above: Apply to affected ar ea three times daily as needed. 24 hr metoprolol succinate 50 mg extended release oral tablet (14 sources) beta-Adrenergic Gilson Start: 02-24-2024 take 1 tablet by mouth every twenty-four hours Metoprolol Succinate 50 mg tablet extended release 24 hr Active MG PO February 24, 2024 1:00am take 1 tablet by mouth in the mo rning metoprolol tartrate (Lopressor) 50 MG tablet Take 1 tablet by mouth in the morning and 1 tablet before bedtime. Active mirtazapine 15 mg oral tablet (14 sources) Start: 06-01-2024 take 1 tablet by mouth once daily Mirtazapine 15 mg tablet Active 15 MG PO Daily June 01, 2024 1:00am nitroglycerin 0.4 mg sublingual tablet (6 sources) Nitrate Vasodilator Start: 05-11-2023 nitroglycerin (Nitrostat) 0.[address] 1 tablet under the tongue every 5 (five) minutes if needed for chest pain (x 3 doses) 05/11/2023 Active ondansetron 4 mg oral tablet (20 sources) Serotonin-3 Receptor Antagonist Start: 02-12-2024 take 1 tablet by mouth once daily as needed for nausea and vomiting Ondansetron Hcl 4 mg tablet Active 4 MG PO Daily as needed for nausea and vomiting February 12, 2024 12:00am Start: 01-23-2024 take 4 mg by mouth e very six hours Ondansetron Hcl Active 4 MG PO Every 6 hours January 23, 2024 12:00am Start: 10-09-2021 End: 02-12-2024 take 1 tablet by mouth every four hours Ondansetron Hcl (Zofran) 4 mg Tablet Discontinued 4 MG PO Every 4 hours October 09, 2021 12:00am February 12, 2024 1:20pm take 1 tablet by courtney th every eight hours as needed for nausea and vomiting ondansetron (ZOFRAN) 4 mg tablet Take 1 tablet (4 mg total) by mouth every 8 (eight) hours as needed for nausea or vomiting. Active Comment on above: Take by mouth every 8 hours as needed for nausea/vomiting. pantoprazole 40 mg oral granules (20 sources) Proton Pump Inhibitor Start: 06-01-19 take 40 mg by mouth once daily Pantoprazole (Protonix) [address] for susp in packet Active 40 MG PO Daily June 01, 2024 1:00am Start: 01-23-2024 End: 06-01-2024 take 1 tablet by mouth before mealtime pantoprazole (ProtoNix) 40 MG EC tablet Take 1 tablet by mouth in the morning. Take before meals. 01/23/2024 Active Start: 06-28-2020 take 40 mg by mouth twice jose manuel y Pantoprazole Active 40 MG PO Twice daily June 28, 2020 12:00am Comment on above: Take 40 mg by mouth twice daily. Take 40 mg by mouth once daily. polyethylene glycol 3350 73448 mg powder for oral solution (20 sources) Osmotic Laxative Start: 02-11-2024 End: 06-01-2024 Polyethylene Glycol 3350 (Miralax) 17 gram/dose powder Active 17 GM PO Daily June 01, 2024 1:00am Start: 09-13-2021 End: 01-29-2024 Polyethylene Glycol 3350 (Mi ralax) 17 gram/dose Powder Discontinued 17 GM PO Daily as needed for Constipation September 13, 2021 12:00am January 29, 2024 1:57pm Comment on above: Take by mouth once d aily. Dissolve dose in 4 - 8 ounces of liquid and take as directed. primidone 50 mg oral tablet (20 sources) Anti-epileptic Agent Start: 06-01-2024 take 1 tablet by mouth once daily at bedtime Primidone 50 mg tablet Active 50 MG PO Daily at bedtime June 01, 2024 1:00am Start: 06-28-2020 End: 06-01-2024 take 1 tablet by mouth twice daily Primidone 250 mg Tablet Discontinued 250 MG PO Twice daily June 28, 2020 12:00am June 01, 2024 12:55pm take 250 mg by mouth once daily PRIMIDONE ORAL Take 250 mg by mouth Daily at 0630. seizures Active Comment on above: Take 1 tablet by courtney twice daily. Sodium Chloride (20 sources) Start: 06-01-2024 Sodium Chlorid e 1 gram tablet Active 1000 MG PO 1 to 4 times daily as needed June 01, 2024 1:00am Start: 06-01-2024 Sodium Chlorid e 1 gram tablet Active 1000 MG PO 1 to 4 times daily as needed June 01, 2024 12:00am Start: 10-09-2021 End: 06-01-2024 take 1 tablet by mouth once daily Sodium Chloride 1,000 mg Tablet,Soluble Discontinued 1000 MG PO Daily October 09, 2021 12:00am June 01, 2024 12:55pm Start: 12-26-2020 take 1 tablet by courtney once daily sodium chloride 1 gram tablet Take 1 tablet (1 g total) by mouth daily. 30 tablet 12/26/2020 Active take 1 tablet by courtney th three times daily sodium chloride 1 g tab Take 1 g by mouth three times daily. Active take 1 tablet by courtney th [...] times daily. tetrabenazine 25 mg oral tablet (13 sources) Vesicular Monoamine Transporter 2 Inhibitor Start: 12-27-19 take 1 tablet by mouth in the morning tetrabenazine (Xenazine) 25 MG tablet Take 25 mg by mouth in the morning and 25 mg in the evening. 12/27/2023 Active Start: 12-27-2023 take 1 tablet by courtney twice daily tetrabenazine (XENAZINE) 25 mg tablet Indications: Dyskinesia, tardive Take 1 tablet by mouth two times a day. 60 tablet 2 12/27/2023 Active traZODone hydrochloride 100 mg oral tablet (20 sources) Serotonin Reuptake Inhibitor Start: 12-29-2022 traZODone (DESYREL) 100 mg tablet 12/29/2022 Active Start: 10-09-2021 Trazodone 150 mg tablet Active 200 MG PO Bedtime October 09, 2021 12:00am Start: 10-09-2021 take 200 mg by mouth at bedtim e Trazodone Active 200 MG PO Bedtime October 09, 2021 12:00am Start: 10-09-2021 take 150 mg by mouth at bedtim e Trazodone Active 150 MG PO Bedtime October 09, 2021 12:00am Start: 06-28-2020 End: 09-13-2021 take 1 tablet by mouth once daily at bedtime Trazodone 150 mg Tablet Discontinued 150 MG PO Daily at bedtime June 28, 2020 12:00am September 13, 2021 12:02pm Comment on above: Take 150 mg by mouth daily at bedtime. Completed/Discontinued Medications Medication Drug Class(es) Dates Sig (Normalized) Sig (Original) acetaminophen 500 mg oral tablet (20 sources) Start: 02-11-2024 End: 06-01-2024 take 1 tablet by mouth every six hours as needed for pain Acetaminophen 500 mg tablet Discontinued 500 MG PO Q6H as needed for Pain February 11, 2024 12:00am June 01, 2024 12:55pm DO NOT RECONCILE UNTIL DOS 02/12/24 TO BE USED POST OP Start: 10-09-2021 take 2 tablets by mo uth three times daily as needed for pain Acetaminophen (Tylenol Extra Strength) 500 mg Tablet Active 1000 MG PO Three times daily as needed for pain October 09, 2021 12:00am take 1 tablet by courtney th every [...] hours as needed. acetaminophen 325 mg / oxyCODONE hydrochloride 5 mg oral tablet (9 sources) Opioid Agonist Start: 09-18-2021 take 1 tablet by mouth every four hours as needed for pain Percocet 5-325 MG 1 tablet as needed for pain Orally up to every 4 hrs for 5 days KALEE: [id number] Oct, Not-Taking busPIRone hydrochloride 10 mg oral [...] MG PO Twice daily September 13, 2021 12:00pm Start: 09-13-2021 take 10 mg by mouth once daily at bedtime Buspirone Active 10 MG PO Daily at bedtime September 13, 2021 12:00pm Start: 09-13-2021 End: 01-23-2024 take 1 tablet by mouth twice daily Buspirone 15 mg tablet Discontinued 15 MG PO Twice daily September 13, 2021 12:00am January 23, 2024 9:46am Start: 07-05-2020 End: 11-12-2023 take 1 tablet by mouth three times daily Buspirone 10 mg tablet Discontinued 10 MG PO Three times daily July 05, 2020 12:00am September 13, 2021 12:00pm Start: 06-29-2020 End: 07-05-2020 take 1 tablet by mouth at bedtime Buspirone 10 mg tablet Discontinued 10 MG PO Bedtime June 29, 2020 12:00am July 05, 2020 10:25am Start: 06-29-2020 End: 07-05-2020 take 10 mg by mouth at bedtime Buspirone Discontinued 10 MG PO Bedtime June 29, 2020 12:00am July 05, 2020 10:25am Start: 06-28-2020 End: 07-05-2020 Buspirone 10 mg Tablet Disco ntinued 15 MG PO BID@June 28, 2020 12:00am [...] mg by mouth three times daily. Active Comment on above: Take 1 tablet by courtney th three times daily. Take 15 mg by mouth three times daily. Take 10 mg by mouth three times daily. Calcium (1 source) Phosphate Binder, Calcium Calcium 600 + D TABS TAKE 2 TABLET Daily Quantity: 0 Refills: 0 Ordered: 25-Sep-2021 DO Active docusate sodium 100 mg oral capsule (9 sources) Start: 02-11-20 End: 06-01-19 take 1 capsule by mouth twice daily as needed for constipation Docusate Sodium (Colace) 100 mg capsule Discontinued 100 MG PO Twice daily as needed for Constipation 20 February 11, 2024 12:00am June 01, 2024 12:55pm doxycycline hyclate 100 mg oral tablet (18 sources) Tetracycline-clas s Drug Start: 02-13-20 End: 02-24-20 take 1 tablet by mouth twice daily Doxycycline Hyclate 100 mg Tablet Discontinued 100 MG PO Twice daily 0 February 13, 2024 12:00am February 24, 2024 10:33am Start: 02-11-2024 End: 02-12-2024 take 1 capsule by mouth twice daily Doxycycline Hyclate 100 mg capsule Discontinued 100 MG PO Twice daily 14 February 11, 2024 12:00am February 12, 2024 1:20pm escitalopram 10 mg oral tablet (20 sources) Serotonin Reuptake Inhibitor Start: 07-05-2020 End: 09-13-2021 take 1 tablet by mouth once daily Escitalopram Oxalate (Lexapro) 10 mg tablet Discontinued 10 MG PO Daily July 05, 2020 12:00am September 13, 2021 12:01pm Start: 07-16-2018 End: 07-05-2020 take 1 tablet by mouth once daily escitalopram oxalate (LEXAPRO) 20 mg tablet Take 20 mg by mouth once daily. 0 07/16/2018 Active Comment on above: Take 20 mg by mouth once daily. furosemide 20 mg oral tablet (16 sources) Loop Diuretic Start: 1 End: 2 take 1 tablet by mouth once daily Furosemide 20 mg Tablet Discontinued 20 MG PO Daily at 0800 30 July 05, 2020 12:00am September 13, 2021 12:01pm ibuprofen 200 mg oral tablet (20 sources) Nonsteroidal Anti-inflammatory Drug Start: 2 End: 4 take 3 tablets by mouth every eight hours as needed for pain Ibuprofen 200 mg Tablet Discontinued 600 MG PO Q8H as needed for Pain September 13, 2021 12:00am January 29, 2024 1:56pm Start: 09-13-2021 End: 01-29-2024 take 600 mg by mouth every eight hours Ibuprofen Discontinued 600 MG PO Q8H September 13, 2021 12:00am January 29, 2024 1:56pm Ibuprofen 200 mg cap Take by mouth every 6 hours as needed. Active take 3 capsules by m outh [...] by mouth every 6 hours as needed. Magnesium (20 sources) Start: 06-28-2020 End: 09-13-2021 take 1 tablet by mouth once daily at bedtime Magnesium 250 mg Tablet Discontinued 250 MG PO Daily at bedtime June 28, 2020 12:00am September 13, 2021 12:01pm Start: 06-28-2020 End: 09-13-2021 take 1 tablet [...] tab Take 250 mg by mouth. Active Magnesium 250 mg tab Take 250 mg by mouth. 0 Active Comment on above: Take 250 mg by mouth . meloxicam 15 mg oral tablet (9 sources) Nonsteroidal Anti-inflammatory Drug Start: 02-11-20 End: 02-12-20 take 1 tablet by mouth once daily Meloxicam 15 mg tablet Discontinued 15 MG PO daily February 11, 2024 12:00am February 12, 2024 1:20pm methocarbamol 750 mg oral tablet (20 sources) Muscle Relaxant Start: 06-29-19 End: 01-29-20 take 1 tablet by mouth three times daily Methocarbamol 750 mg Tablet Discontinued 750 MG PO Three times daily June 28, 2020 12:00am January 29, 2024 1:57pm End: 11-12-2023 take 1 tablet by mouth four times daily methocarbamol (ROBAXIN) 750 mg tablet Take 750 mg by mouth four times daily. 0 11/12/2023 Discontinued (Discontinued by another Health Care Provider) Comment on above: Take 750 mg by mouth four times daily. oxyCODONE hydrochloride 5 mg oral tablet (18 sources) Opioid Agonist Start: 02-11-20 End: 06-01-19 take 1 tablet by mouth every six hours as needed for pain Oxycodone 5 mg tablet Discontinued 5 MG PO Q6H as needed for Pain 28 7 February 13, 2024 June 01, 2024 12:55pm pravastatin sodium 40 mg oral tablet (20 sources) HMG-CoA Reductase Inhibitor Start: 06-29-19 End: 09-14-19 take 1 tablet by mouth once daily at bedtime Pravastatin 40 mg Tablet Discontinued 40 MG PO Daily at bedtime June 28, 2020 12:00am September 13, 2021 12:01pm Comment on above: Take 40 mg by mouth once daily. Triamcinolone (8 sources) Corticosteroid Start: 05-30-19 Kenalog -40 mg May, 40 mg valbenazine 80 mg oral capsule (20 sources) Start: 06-29-19 End: 09-14-19 take 1 capsule by mouth once daily Valbenazine (Ingrezza) 80 mg Capsule Discontinued 80 MG PO Daily June 28, 2020 12:00am September 13, 2021 12:01pm Problems Active Problems Problem Classification Problem Date Documented Da te Episodic/Chronic Administrative/social admission (1 source) Lives in a [place]; Translations: [Person living in residential institution] Episodic Anxiety disorders (20 sources) Anxiety state; Translations: [Anxiety state, unspecified] Onset: 03-23-2022 07-05-2020 Chronic Comment on above: Problem List clean-u p per request of Phys. EHR Cmte Chronic kidney disease (10 sources) Chronic kidney disease; Translations: [Chronic kidney disease, unspecified] Resolved: 09-14-2022 09-14-2022 Chronic Coronary atherosclerosis and other heart disease (2 sources) Atherosclerotic heart disease of [place] coronary artery without angina pectoris; Translations: [Atherosclerotic heart disease of [place] coronary artery without angina pectoris] Onset: 09-18-2023 Chronic Deficiency and other anemia (2 sources) Iron deficiency anemia; Translations: [Iron deficiency anemia, unspecified] 06-02-2024 Episodic Disorders of lipid metabolism (20 sources) Hyperlipidemia; Translations: [Other and unspecified hyperlipidemia] Onset: 12-06-2021 Resolved: 12-06-2021 Chronic E Codes: Fall (4 sources) Unspecified fall, initial encounter; Translations: [Other fall on same level, initial encounter] Onset: 07-03-2021 Episodic Esophageal disorders (10 sources) Gastro-esophageal reflux disease without esophagitis; Translations: [Gastroesophageal reflux disease] Onset: 06-05-2022 10-19-2022 Chronic Essential hypertension (20 sources) Benign essential hypertension; Translations: [Benign essential hypertension] Onset: 03-22-2021 Resolved: 12-06-2021 Chronic Fracture of lower limb (13 sources) Closed fracture of distal fibula ; Translations: [Other fracture of upper and lower end of left fibula, subsequent encounter for closed fracture with routine healing] 01-22-2024 Episodic Fracture of upper limb (2 sources) Closed fracture of distal phalanx of ring finger of left hand; Translations: [Displaced fracture of distal phalanx of left ring finger, initial encounter for closed fracture] 11-02-2024 Episodic Gastrointestinal hemorrhage (4 sources) Hemorrhage of [...] Onset: 05-30-2021 Resolved: 12-04-2021 Chronic Other aftercare (19 sources) Patient encounter status; Translations: [Aftercare following joint replacement surgery] Onset: 12-20-2023 04-06-2024 Chronic Other aftercare (1 source) Other alf (current) drug therapy; Translations: [OTH SINGER BACK TENDER CURRENT DRUG THERAPY] Onset: 06-05-2022 Episodic Other bone disease and musculoskeletal deformities (9 sources) Avascular necrosis of bone of hip; Translations: [Idiopathic aseptic necrosis of left femur] Onset: 04-09-2023 09-05-2023 Chronic Other bone disease and musculoskeletal deformities (2 sources) Idiopathic aseptic necrosis of unspecified bone; Translations: [Idiopathic aseptic necrosis of unspecified bone] Onset: 12-06-2023 Chronic Other bone disease and musculoskeletal deformities (2 sources) Idiopathic aseptic necrosis of left femur; Translations: [Idiopathic aseptic necrosis of left femur] Onset: 04-09-2023 Chronic Other connective tissue disease (20 sources) History of reverse prosthetic total arthroplasty of right shoulder; Translations: [Presence of right artificial shoulder joint] Onset: 05-14-2023 01-22-2024 Chronic Other connective tissue disease (20 sources) Presence of right artificial shoulder joint; Translations: [Shoulder joint replacement] Onset: 09-18-2021 Resolved: 12-04-2021 Chronic Other connective tissue disease (9 sources) History of operative procedure on shoulder; Translations: [Presence of unspecified artificial shoulder joint] 02-13-2024 Chronic Other connective tissue disease (15 sources) Presence of unspecified artificial shoulder joint; Translations: [Shoulder joint replacement] Onset: 02-12-2024 02-13-2024 Chronic Other connective tissue disease (2 sources) Presence of left artificial hip joint; Translations: [Presence of left artificial hip joint] Onset: 12-29-2023 Chronic Other connective tissue disease (14 sources) Unspecified rotator cuff tear or rupture of right shoulder, not specified as traumatic; Translations: [Tear of right rotator cuff, unspecified tear extent, unspecified whether traumatic] Onset: 05-30-2021 Resolved: 12-04-2021 Episodic Other diseases of kidney and ureters (16 sources) Hydronephrosis; Translations: [Unspecified hydronephrosis] 06-30-2020 Episodic Comment on above: Problem List clean-u p per request of Phys. 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 Other hereditary and degenerative nervous system conditions (1 source) Restless legs syndrome; Translations: [RESTLESS LEGS SYNDROME] Onset: 06-05-2022 Chronic Other hereditary and degenerative nervous system conditions (18 sources) Movement disorder; Translations: [Extrapyramidal and movement disorder, unspecified] Onset: 03-23-2022 04-06-2024 Chronic Other hereditary and degenerative nervous system conditions (18 sources) Tardive dyskinesia; Translations: [Drug induced subacute dyskinesia] Episodic Other nervous system disorders (16 sources) Metabolic encephalopathy; Translations: [Metabolic encephalopathy] 06-30-2020 Chronic Comment on above: Problem List clean-u p per request of Phys. EHR Cmte Other nervous system disorders (1 source) Other chronic pain; Translations: [OTHER CHRONIC PAIN] Onset: 08-23-2021 Chronic Other nervous system disorders (16 sources) Abnormal movement; Translations: [Unspecified abnormal involuntary movements] 06-30-2020 Episodic Comment on above: Problem List clean-u p per request of Phys. EHR Cmte Other nervous system disorders (1 source) Enhanced physiological tremor; Translations: [Tremor, unspecified] Episodic Other non-traumatic joint disorders (14 sources) Pain in right knee; Translations: [Right knee pain] Onset: 07-02-2024 03-31-2024 Episodic Other nutritional; endocrine; and metabolic disorders [...] apnea, unspecified] 04-17-2024 Chronic Residual codes; unclassified (16 sources) Altered mental status; Translations: [Altered mental status, unspecified] 06-30-2020 Episodic Comment on above: Problem List clean-u p per request of Phys. EHR Cmte Septicemia (except in labor) (16 sources) Sepsis; Translations: [Sepsis, unspecified organism] 06-30-2020 [...] Problem Date Documented Date Episodic/Chronic Abdominal hernia (9 sources) Hiatal hernia; Translations: [Diaphragmatic hernia without obstruction or gangrene] Onset: 03-12-2023 03-12-2023 Episodic Anal and rectal conditions (10 sources) Rectal prolapse; Translations: [Rectal prolapse] Onset: 02-04-2021 05-18-2022 Episodic Complication of device; implant or graft (20 sources) Mechanical complication associated with orthopedic device; Translations: [Other mechanical complication of other internal orthopedic devices, implants and grafts, initial encounter] Onset: 01-29-2024 01-23-2024 Episodic Deficiency and other anemia (1 source) Anemia, unspecified Onset: 03-22-2021 Resolved: 03-22-2021 Episodic Deficiency and other anemia (9 sources) Anemia; Translations: [Anemia, unspecified] Onset: 03-23-2022 03-23-2022 Episodic Fluid and electrolyte disorders (20 sources) Hypo-osmolality and hyponatremia; Translations: [Acute hyponatremia] Onset: 12-23-2020 Resolved: 12-06-2021 Episodic Comment on above: Problem List clean-u p per request of Phys. EHR Cmte Fracture of neck of femur (hip) (11 sources) Closed fracture of neck of femur; Translations: [Fracture of unspecified part of neck of unspecified femur, initial encounter for closed fracture] Onset: 06-16-2020 02-03-2021 Episodic Nausea and vomiting (13 sources) Nausea; Translations: [Nausea with vomiting, unspecified] Onset: 02-23-2022 Episodic Other connective tissue disease (20 sources) Rhabdomyolysis; Translations: [Rhabdomyolysis] Onset: 07-04-2023 06-30-2020 Episodic Comment on above: Problem List clean-u p per request of Phys. EHR Cmte Other connective tissue disease (9 sources) Swelling of lower limb; Translations: [Other specified soft tissue disorders] Onset: 12-22-2020 12-22-2020 Episodic Other connective tissue disease (9 sources) Muscle weakness; Translations: [Muscle weakness (generalized)] Onset: 03-23-2022 03-23-2022 Episodic Other diseases of kidney and ureters (2 sources) Unspecified hydronephrosis Onset: 03-22-2021 Resolved: 12-06-2021 Episodic Other hereditary and degenerative nervous system conditions (3 sources) Drug induced subacute dyskinesia; Translations: [DRUG INDUCED SUBACUTE DYSKINESIA] Onset: 06-05-2022 Episodic Other lower respiratory disease (10 sources) Apnea; Translations: [Apnea, not elsewhere classified] Onset: 04-06-2024 04-06-2024 Episodic Other nervous system disorders (9 sources) Multifactorial gait problem; Translations: [Other abnormalities of gait and mobility] Onset: 03-23-2022 03-23-2022 Episodic Other non-traumatic joint disorders (19 sources) Pain in right shoulder; Translations: [Right shoulder pain] Onset: 05-30-2021 Resolved: 05-30-2021 Episodic Other non-traumatic joint disorders (9 sources) Pain of left hip joint; Translations: [Pain in left hip] Onset: 06-16-2020 02-03-2021 Episodic Other nutritional; endocrine; and metabolic disorders (1 source) Abnormal weight loss Onset: 03-22-2021 Resolved: 03-22-2021 Episodic Other screening for suspected conditions (not mental disorders or infectious disease) (20 sources) Electrocardiogram abnormal; Translations: [Nonspecific abnormal electrocardiogram [ECG] [EKG]] Onset: 08-07-2023 08-07-2023 Episodic Pneumonia (except that caused by tuberculosis or sexually transmitted disease) (9 sources) Pneumonia; Translations: [Pneumonia, unspecified organism] Resolved: 08-17-2022 08-17-2022 Episodic Residual codes; unclassified (1 source) Other specified postprocedural states Onset: 10-17-2021 Resolved: 10-17-2021 Episodic Residual codes; unclassified (2 sources) Pain, unspecified; Translations: [Pain, unspecified] Onset: 12-06-2023 Episodic Screening and history of mental health [...] caused by 2019-nCoV; Translations: [COVID-19] Onset: 07-04-2023 Resolved: 10-26-2024 06-30-2020 Episodic Comment on above: Problem List clean-u p per request of Phys. EHR Cmte Results Test Name Value Interpretation Reference Range Facility X-ray reportOrdered By: Giovanni Taylor on 08-10-2024 Study report [facility] [place] [address] XRay Report Signed Patient: Melanie Espinoza MR#: [id number] : 1955 Acct:[id number] Age/Sex: 69 / F ADM Date: 5 [place] [facility]: Type: [facility] Attending Dr: Nickolas Hawthorne DO Copies to: Nickolas Hawthorne DO~ Ordering Provider: Nickolas Hawthorne DO Date of Service: 08/10/24 XR/XR shoulder RT min 2V*: Z96.619 - Presence of unspecified artificial shoulder joint RIGHT SHOULDER - - 3 views CLINICAL HISTORY: Status post revision total shoulder arthroplasty COMPARISON: Right shoulder 03/31/2024 FINDINGS: Arthroplasty configuration is grossly similar to the prior study. There is associated lucency involving the glenoid. No acute fracture is seen. XR/XR shoulder RT min 2V* IMPRESSION: NO SIGNIFICANT CHANGE IN PROSTHESIS FINDINGS. Impression dictated by: Tai Taylor Jr., D.OSofía 08/10/2024 9:36 PM Dictation Location: [place] [address] Transcribed By: [facility] 08/10/242135 Dictated By: Tai Taylor Jr, DO 08/10/242133 Signed By: 08/10/242135 [facility] XR shoulder RT min 2V*on XR shoulder RT min 2V* [facility] [place] [address] XRay Report Signed Patient: Melanie Espinoza MR#: [id number] 6 : 1955 Acct:[id number] Age/Sex: 69 / F ADM Date: 08/10/24 Loc: [facility] Room: Type: REG CLI Attending Dr: Nickolas Hawthorne DO Copies to: Nickolas Hawthorne DO Ordering Provider: Nickolas Hawthorne DO Date of Service: 08/10/24 XR/XR shoulder RT min 2V*: Z96.619 - Presence of unspecified artificial shoulder joint RIGHT SHOULDER - - 3 views CLINICAL HISTORY: Status post revision total shoulder arthroplasty COMPARISON: Right shoulder 03/31/2024 FINDINGS: Arthroplasty configuration is grossly similar to the prior study. There is associated lucency involving the glenoid. No acute fracture is seen. XR/XR shoulder RT min 2V* IMPRESSION: NO SIGNIFICANT CHANGE IN PROSTHESIS FINDINGS. Impression dictated by: Tai Taylor Jr., D.O. 08/10/2024 9:36 PM Dictation Location: [facility] Transcribed By: [facility] 08/10/242135 Dictated By: Tai Taylor Jr, DO 08/10/242133 Signed By: 08/10/242135 Normal The Counts Include [facility] Office Visiton 08-07-2024 Follow-up visit [id number] Melanie Espinoza 1955 F Date Provider Department Center 08/07/2024 [id number] JOYA [facility] Family History Problem Relation Age of Onset Hypertension Mother Stroke Mother Heart attack Father Family Status - Relation Status Age at Mother Father Level of Service:13701 MT OFFICE/OUTPATIENT ESTABLISHED LOW MDM 20 MIN Reason for Visit and Comments: Hyperlipidemia [182] Hypertension [180337] Coronary Artery Disease [187] Follow-up [782363] Normal [facility] X-ray reportOrdered By: Giovanni Taylor on 07-02-2024 Study report [facility] [address] [place] [address] XRay Report Signed Patient: Melanie Espinoza MR#: [id number] : 1955 Acct:[id number] Age/Sex: 69 / F ADM Date: 5 Loc: [facility] Room: Type: REG CLI Attending Dr: Nickolas Hawthorne DO Copies to: Nickolas Hawthorne DO~ Ordering Provider: Nickolas Hawthorne DO Date of Service: 07/02/24 XR/XR knee RT 4V*: M25.561 - Pain in right knee ([id number]) XR/XR knee LT 2V: M25.561 - Pain in right knee BILATERAL KNEE - 2 views each CLINICAL HISTORY: Generalized right knee pain with instability. COMPARISON: None FINDINGS: Right knee demonstrates moderate degenerative changes with patellofemoral joint space narrowing. No acute bony process is seen. There is lateral subluxation of the patella relative to the condylar notch. Left knee demonstrates mild degenerative changes with lateral weightbearing joint space narrowing. No acute bony process is seen. XR/XR knee LT 2V IMPRESSION: MODERATE DEGENERATIVE CHANGES OF THE RIGHT KNEE WITHOUT ACUTE BONY PROCESS. MILD DEGENERATIVE CHANGES OF THE LEFT KNEE WITHOUT ACUTE BONY PROCESS. Impression dictated by: Tai Taylor Jr., DSofíaOSofía07/02/2024 3:55 PM Dictation Location: [place] [address] Transcribed By: [facility] 07/02/24 1555 Dictated By: Tai Taylor Jr, DO 07/02/24 1554 Signed By: 07/02/24 1555 [facility] XR knee RT 4V*on 07-02-2024 XR knee RT 4V* [facility] [address] [place] [address] XRay Report Signed Patient: Melanie Espinoza MR#: [id number] 6 : 1955 Acct:[id number] Age/Sex: 69 / F ADM Date: 07/02/24 [place] [facility] [place]: Type: [place] [facility] Attending Dr: Nickolas Hawthorne DO Copies to: Nickolas Hawthorne DO Ordering Provider: Nickolas Hawthorne DO Date of Service: 07/02/24 XR/XR knee RT 4V*: M25.561 - Pain in right knee ([id number]) XR/XR knee LT 2V: M25.561 - Pain in right knee BILATERAL KNEE - 2 views each CLINICAL HISTORY: Generalized right knee pain with instability. COMPARISON: None FINDINGS: Right knee demonstrates moderate degenerative changes with patellofemoral joint space narrowing. No acute bony process is seen. There is lateral subluxation of the patella relative to the condylar notch. Left knee demonstrates mild degenerative changes with lateral weightbearing joint space narrowing. No acute bony process is seen. XR/XR knee LT 2V IMPRESSION: MODERATE DEGENERATIVE CHANGES OF THE RIGHT KNEE WITHOUT ACUTE BONY PROCESS. MILD DEGENERATIVE CHANGES OF THE LEFT KNEE WITHOUT ACUTE BONY PROCESS. Impression dictated by: Tai Taylor Jr., D.OSofía07/02/2024 3:55 PM Dictation Location: [facility] Transcribed By: [facility] 07/02/241554 Dictated By: Tai Taylor Jr, DO 07/02/241553 Signed By: 07/02/241554 Normal The Counts Include [facility] Follow-Upon 06-25-2024 Follow-Up [id number] Melanie Espinoza 1955 F Date Provider Department Center 06/25/2024 Akilah-ERNESTO KAN [facility] Family History Problem Relation Age of Onset Hypertension Mother Stroke Mother Heart attack Father Family Status - Relation Status Age at Mother Father Level of Service:48607 MT OFFICE/OUTPATIENT ESTABLISHED LOW MDM 20 MIN (GC) Reason for Visit and Comments: Pain [136] Normal [facility] XR shoulder RT min 2V*on XR shoulder RT min 2V* [facility] [address] [place] [address] XRay Report Signed Patient: Melanie Espinoza MR#: [id number] 6 : 1955 Acct:[id number] Age/Sex: 68 / F ADM Date: 03/31/24 [place] [facility] [place]: Type: [facility] Attending Dr: Nickolas Hawthorne DO Copies to: [...] Ligia Carrasquillo M.D.03/31/2024 3:19 PM Dictation Location: [place] [address] Transcribed By: [facility] 03/31/24 151 Dictated By: Ligia Carrasquillo MD 03/31/241516 Signed By: 03/31/24 151 Normal The Counts Include [facility] X-ray reportOrdered By: Emam Bettencourt on 02-24-2024 Study report [facility] [address] [place] [address] XRay Report Signed Patient: Melanie Espinoza MR#: [id number] : 1955 Acct:[id number] Age/Sex: 68 / F ADM Date: 4 [place] [facility] [place]: Type: [facility] Attending Dr: Nickolas Hawthorne DO Copies to: [...] Bettencourt II, MD 02/24/241656 Signed By: 02/24/241658 [facility] Work Phone: XR shoulder RT min 2V*on XR shoulder RT min 2V* [facility] [address] [place] [address] XRay Report Signed Patient: Melanie Espinoza MR#: [id number] 6 : 1955 Acct:[id number] Age/Sex: 68 / F ADM Date: 02/24/24 [place] [facility] [place]: Type: [facility] Attending Dr: Nickolas Hawthorne DO Copies to: [...] 02/24/241658 Dictated By: Emma Bettencourt II, MD 11/11/24 1657 Signed By: 02/24/24 1659 Normal The Counts Include [facility] Aerobic Cultureon 02-12-2024 Aerobic Culture Comment right shoulder Synovial Fluid Result Tab Codes Rare Normal Skin Chloé 2 Days Growth present in Thio broth only Comment right shoulder Synovial Fluid Anaerobic Culture Results No Anaerobes Isolated 3 Days Comment right shoulder Synovial Fluid Gram Stain Result No Bacteria Seen PERFORMED BY: [place] [address] PATHOLOGIST PRINTING BINDERY ASSISTANT TAYA CRESPO M.D. Normal The Counts Include [facility] Comment on above: Performed By: #### C UMRSA, UA #### [address] Aerobic cultureOrdered By: Jonh Hawthorne on 02-12-2024 Bacteria identified Aer cx Nom (Unsp spec) Aerobic culture [facility] Anaerobic cultureOrdered By: Nickolas Hawthorne on 02-12-2024 Bacteria identified Anaer cx Nom (Unsp spec) Anaerobic culture [facility] Automated basophil %Ordered By: Nickolas Hawthorne on 02-12-2024 Basophils/100 WBC (Bld) 0.9 % Normal . [facility] Comment on above: Performed By: #### E SR, CBC, DDIMER, CRP #### [facility] [address] [place] [address] Automated basophil countOrde red By: Nickolas Hawthorne on 02-12-2024 Basophils (Bld) [#/Vol] 0.1 10*3/uL Normal 0.0-0.2 [facility] Comment on above: Performed By: #### E SR, CBC, DDIMER, CRP #### [address] Automated blood monocyte cou ntOrdered By: Nickolas Hawthorne on 02-12-2024 Monocytes (Bld) [#/Vol] 0.6 10*3/uL Normal 0.0-0.8 [facility] Comment on above: Performed By: #### E SR, CBC, DDIMER, CRP #### [address] Automated eosinophil %Ordere d By: Nickolas Hawthorne on 02-12-2024 Eosinophils/100 WBC (Bld) 2.1 % Normal . [facility] Comment on above: Performed By: #### E SR, CBC, DDIMER, CRP #### [address] Automated eosinophil countOr dered By: Nickolas Hawthorne on 02-12-2024 Eosinophils (Bld) [#/Vol] 0.1 10*3/uL Normal 0.0-0.45 [facility] Comment on above: Performed By: #### E SR, CBC, DDIMER, CRP #### [address] Automated monocyte %Ordered By: Nickolas Hawthorne on 02-12-2024 Monocytes/100 WBC (Bld) 8.7 % Normal . [facility] Comment on above: Performed By: #### E SR, CBC, DDIMER, CRP #### [address] Automated neutrophil %Ordere d By: Nickolas Hawthorne on 02-12-2024 Neutrophils/100 WBC (Bld) 73.7 % Normal . [facility] Comment on above: Performed By: #### E SR, CBC, DDIMER, CRP #### [address] Basic Metabolic Panelon 103 [facility] 44.31 Normal The Counts Include [facility] Comment on above: Result Comment: PERF ORMED BY: [place] [address] PATHOLOGIST PRINTING BINDERY ASSISTANT TAYA CRESPO M.D. Performed By: #### B MP #### [address] GFR/1.73 sq M.predicted MDRD (S/P/Bld) [Vol rate/Area] mL/min/{1.73_m2} Normal The Counts Include [facility] Comment on above: Performed By: #### B MP #### [address] Basophils Auto (Bld) [#/Vol] Ordered By: Nickolas Hawthorne on 02-12-2024 Basophils (Bld) [#/Vol] Automated basoph il count 0.0-0.2 [facility] Basophils/100 WBC Auto (Bld) Ordered By: Nickolas Hawthorne on 02-12-2024 Basophils/100 WBC (Bld) Automated basophil % . [facility] C reactive protein [Mass/vol ume] in Serum or PlasmaOrdered By: Nickolas Hawthorne on 02-12-2024 CRP [Mass/Vol] 0.6 mg/dL High 0.0-0.5 [facility] CRP [Mass/Vol] C reactive protein [Mass/volume] in Serum or Plasma High 0.0-0.5 [facility] C-Reactive Proteinon 024 C-Reactive Protein 0.6 mg/dL High 0.0-0.5 The Counts Include [facility] Comment on above: Result Comment: PERF ORMED BY: [facility] [address] [place] [address] PATHOLOGIST PRINTING BINDERY ASSISTANT TAYA CRESPO M.D. Performed By: #### E SR, CBC, DDIMER, CRP #### [facility] [address] [place] [address] [place] Calcium [Mass/volume] in Ser um or PlasmaOrdered By: Giancarlo Rojas on 02-12-2024 Calcium [Mass/Vol] 9.0 mg/dL Normal 8.6-10.3 [facility] Comment on above: Performed By: #### B MP #### [facility] [address] [place] [address] [place] Calcium [Mass/Vol] Calcium [Mass/volume ] in Serum or Plasma 8.6-10.3 [facility] Carbon dioxide, total [Moles /volume] in Serum or PlasmaOrdered By: Giancarlo Rojas on 02-12-2024 CO2 [Moles/Vol] 27.2 mmol/L Normal 21.0-31.0 [facility] Comment on above: Performed By: #### B MP #### [facility] [address] [place] [address] [place] CO2 [Moles/Vol] Carbon dioxide, tota l [Moles/volume] in Serum or Plasma 21.0-31.0 [facility] Cell Count Diff,Synovial Flu idon 02-12-2024 Appearance, Synovial Fluid Turbid Critically abnormal Clear The Counts Include [facility] Comment on above: Order Comment: Synov ial Fluid Source: right shoulder Synovial Fluid Site: right shoulder Performed By: #### C UMRSA, UA #### [facility] [address] [place] [address] [place] Color, Synovial Fluid RED Normal [facility]-Str Th e Counts Include [facility] Comment on above: Order Comment: Synov ial Fluid Source: right shoulder Synovial Fluid Site: right shoulder Performed By: #### C UMRSA, UA #### [facility] [address] [place] [address] [place] Color, Synovial Supernatant Red Normal The Counts Include [facility] Comment on above: Order Comment: Synov ial Fluid Source: right shoulder Synovial Fluid Site: right shoulder Result Comment: The reference interval and other method performance specifications have not been established for this body fluid. The test result must be integrated into the clinical context for interpretation. Performed By: #### C UMRSA, UA #### [address] Comments, Synovial Normal The Counts Include [facility] Comment on above: Order Comment: Synov ial Fluid Source: right shoulder Synovial Fluid Site: right shoulder Result Comment: Body fluid is partially clotted and/or cell clumps or debris are present. Fluid cell count and differential results may not be reliable. Clinical correlation is recommended. PERFORMED BY: [place] [address] PATHOLOGIST PRINTING BINDERY ASSISTANT TAYA CRESPO M.D. Performed By: #### C UMRSA, UA #### [facility] [address] [place] [address] [place] Eosinophils,Synovial Fluid 0 % Normal 0-2 The Counts Include [facility] Comment on above: Order Comment: Synov ial Fluid Source: right shoulder Synovial Fluid Site: right shoulder Performed By: #### C UMRSA, UA #### [facility] [address] [place] [address] [place] Lymphocytes, Synovial Fluid 65 % Normal 0-74 The Counts Include [address] [facility] Comment on above: Order Comment: Synov ial Fluid Source: right shoulder Synovial Fluid Site: right shoulder Performed By: #### C LIU KIDD #### [facility] [address] Monocyte/Histiocyte,Syn ov.Fld. 23 % Normal 0-69 The Counts Include [address] [facility] Comment on above: Order Comment: Synov ial Fluid Source: right shoulder Synovial Fluid Site: right shoulder Performed By: #### C LIU KIDD #### [facility] [address] Neutrophils, Synovial Fluid 12 % Normal 0-24 The Counts Include [address] [facility] Comment on above: Order Comment: Synov ial Fluid Source: right shoulder Synovial Fluid Site: right shoulder Performed By: #### C LIU KIDD #### [address] RBC, Synovial Fluid 462828 /uL High 0-0 The Counts Include [address] [facility] Comment on above: Order Comment: Synov ial Fluid Source: right shoulder Synovial Fluid Site: right shoulder Result Comment: Body fluid is partially clotted and/or cell clumps or debris are present. Fluid cell count and differential results may not be reliable. Clinical correlation is recommended. Performed By: #### C LIU KIDD #### [address] TNC, Synovial Fluid [address] High 0-150 The Counts Include [address] [facility] Comment on above: Order [...] clinical context for interpretation. Performed By: #### C LIU KIDD #### [address] Cells Counted Total [#] in B maurice fluidOrdered By: Nickolas Hawthorne on 02-12-2024 Cells Counted Total (Body fld) [#] 19194 mm^3 High 0-150 [facility] Comment on above: Body fluid is [...] Total [#] in Body fluid High 0-150 [facility] Comment on above: Body fluid is [...] on 02-12-2024 Chloride [Moles/Vol] 99 mmol/L Normal [address] [place] [address] Comment on above: Performed By: #### B MP #### [address] Chloride [Moles/Vol] Chloride [Moles/volume] in Serum or Plasma [address] [place] [address] Complete Blood Count Auto Di ffon 02-12-2024 Mean Corpuscular HGB Conc 33.0 g/dL Normal 32.0-35.0 The Counts Include [address] [facility] Comment on above: Performed By: #### E SR, CBC, DDIMER, CRP #### [facility] [address] [place] [address] NRBC% 0.1 /100{WBC} Normal 0-0.5 The Counts Include [address] [facility] Comment on above: Performed By: #### E SR, CBC, DDIMER, CRP #### [facility] [address] Creatinine [Mass/volume] in Serum or PlasmaOrdered By: Giancarlo Rojas on 02-12-2024 Creatinine [Mass/Vol] 0.40 mg/dL Low 0.60-1.20 [facility] Comment on above: Performed By: #### B MP #### [place] [id number] [facility] Creatinine [Mass/Vol] Creatinine [Mass/volume] in Serum or Plasma Low 0.60-1.20 [facility] D-Dimer High Sensitivityon 1 D-Dimer High Sensitivity 647 ng/mL High 0-243 The Counts Include [address] [facility] Comment on above: Result [...] coagulation studies. Please contact the laboratory at [phone] for redraw instructions. PERFORMED BY: [place] [address] PATHOLOGIST PRINTING BINDERY ASSISTANT TAYA CRESPO M.D. Performed By: #### E SR, CBC, DDIMER, CRP #### [place] [id number] [facility] Determination of appearance of body fluidOrdered By: Nickolas Hawthorne on 02-12-2024 Appearance (Body fld) Turbid Abnormal Clear [facility] Appearance (Body fld) Determination of appearance of body fluid Abnormal Clear [facility] Eosinophils Auto (Bld) [#/Vo l]Ordered By: Nickolas Hawthorne on 02-12-2024 Eosinophils (Bld) [#/Vol] Automated eosinophil count 0.0-0.45 [facility] Eosinophils/100 WBC Auto (Bl d)Ordered By: Nickolas Hawthorne on 02-12-2024 Eosinophils/100 WBC (Bld) Automated eosinophil % . [facility] Erythrocyte Sedimentation Ra camila 02-12-2024 ESR (Bld) [Velocity] 13 mm/h Normal 0-29 The Counts Include [address] [facility] Comment on above: Result Comment: PERF ORMED BY: [place] [address] PATHOLOGIST PRINTING BINDERY ASSISTANT TAYA CRESPO M.D. Performed By: #### E SR, CBC, DDIMER, CRP #### [address] Erythrocyte distribution wid th Auto (RBC) [Ratio]Ordered By: Nickolas Hawthorne on 02-12-2024 Erythrocyte distribution width (RBC) [Ratio] Erythrocyte distribution width [Ratio] by Automated count 11.9-15.3 [facility] Erythrocyte distribution wid th [Ratio] by Automated countOrdered By: Nickolas Hawthorne on 02-12-2024 Erythrocyte distribution width (RBC) [Ratio] 14.5 % Normal 11.9-15.3 [facility] Comment on above: Performed By: #### E SR, CBC, DDIMER, CRP #### [address] Erythrocyte sedimentation ra te by Photometric methodOrdered By: Nickolas Hawthorne on 02-12-2024 ESR Photometric method (Bld) [Velocity] 13 mm/hr 0-29 [facility] ESR Photometric method (Bld) [Velocity] Erythrocyte sedimentation rate by Photometric method 0-29 [facility] Erythrocytes [#/volume] in B lood by Automated countOrdered By: Nickolas Hawthorne on 02-12-2024 RBC (Bld) [#/Vol] 4.77 10*6/uL Normal 3.60-5.00 [facility] Comment on above: Performed By: #### E SR, CBC, DDIMER, CRP #### [address] Evaluation of color of body fluidOrdered By: Nickolas Hawthorne on 02-12-2024 Color (Body fld) Red [facility] Color (Body fld) Evaluation of color of body fluid [facility] Fibrin D-dimer [Presence] in Platelet poor plasma by Latex agglutinationOrdered By: Nickolas Hawthorne on 02-12-2024 Fibrin D-dimer LA Ql (PPP) 647 ng/mL High 0-243 [facility] Comment on above: The reference range for [...] coagulation studies. Please contact the laboratory at [phone] for redraw instructions. Fibrin D-dimer LA Ql (PPP) Fibrin D-dimer [Presence] in Platelet poor plasma by Latex agglutination High 0-243 [facility] Comment on above: The reference range for [...] coagulation studies. Please contact the laboratory at [phone] for redraw instructions. Glucose [Mass/volume] in Ser um or PlasmaOrdered By: Giancarlo Rojas on 02-12-2024 Glucose [Mass/Vol] 92 mg/dL Normal 70-100 [facility] Comment on above: ADA recommended refe rence rangeRandom Glucose Reference Range is dependent on time and content of last meal. Glucose of more than 200 mg/dL in a nonstressed, ambulatory subject supports the diagnosis of Diabetes Mellitus. Result Comment: [place] om Glucose Reference Range is dependent on time and content of last meal. Glucose of more than 200 mg/dL in a nonstressed, ambulatory subject supports the diagnosis of Diabetes Mellitus. ADA recommended reference range Performed By: #### B MP #### [facility] [address] Glucose [Mass/Vol] Glucose [Mass/volume ] in Serum or Plasma 70-100 [facility] Comment on above: ADA recommended refe rence rangeRandom Glucose Reference Range is dependent on time and content of last meal. Glucose of more than 200 mg/dL in a nonstressed, ambulatory subject supports the diagnosis of Diabetes Mellitus. Gram Stainon 02-12-2024 Microscopic observation Gram stain Nom (Unsp spec) Comment right shoulder Synovial Fluid Gram Stain Result No Bacteria Seen PERFORMED BY: [place] [address] PATHOLOGIST PRINTING BINDERY ASSISTANT TAYA CRESPO M.D. Normal The Counts Include [address] [facility] Comment on above: Performed By: #### C UMRSA, UA #### [facility] [address] Gram stain for investigation of transfusion reactionOrdered By: Nickolas Hawthorne on 02-12-2024 Microscopic observation Gram stain Nom (Unsp spec) No Anaerobes Isolated 1 Day [facility] Gram stain microscopyOrdered By: Nickolas Hawthorne on 02-12-2024 Microscopic observation Gram stain Nom (Unsp spec) Gram stain microscopy [facility] Hematocrit Auto (Bld) [Volum e fraction]Ordered By: Nickolas Hawthorne on 02-12-2024 Hematocrit (Bld) [Volume fraction] Hematocrit [Volume Fraction] of Blood by Automated count 34.0-46.4 [facility] Hematocrit [Volume Fraction] of Blood by Automated countOrdered By: Nickolas Hawthorne on 02-12-2024 Hematocrit (Bld) [Volume fraction] 41.5 % Normal 34.0-46.4 [facility] Comment on above: Performed By: #### E SR, CBC, DDIMER, CRP #### [facility] [address] [place] [id number] [facility] Hemoglobin [Mass/volume] in BloodOrdered By: Nickolas Hawthorne on 02-12-2024 Hemoglobin (Bld) [Mass/Vol] 13.7 g/dL Normal 11.8-15.4 [facility] Comment on above: Performed By: #### E SR, CBC, DDIMER, CRP #### [facility] [address] [place] [id number] [facility] Hemoglobin (Bld) [Mass/Vol] Hemoglobin [Mass/volume] in Blood 11.8-15.4 [facility] Emery 02-12-2024 L Specimen: [id number] Received: 02/12/24 Status: ESTEFANI Christianson Num: [id number] Spec Type: Surgical Subm Dr: Nickolas Hawthorne DO Tissues: A Synovium-Biopsy or tissue (DEEP SYNOVIAL #1) B Synovium-Biopsy or tissue (DEEP SYNOVIAL #2) C Synovium-Biopsy or tissue (DEEP SYNOVIAL #3) Procedures: HE/3, Gross/Micro L4/3, FS HE/6 Age/ Patient Sex Location Account Attending Physician Melanie Espinoza 68/F [place] [id number] Nickolas Hawthorne DO SPEC NUM: [id number] RECD: 02/12/24 STATUS: ESTEFANI CHRISTIANSON NUM: [id number] AVERY: 02/12/24 DR: Nickolas Hawthorne DO ENTERED: 02/12/[address] [facility] [address]: SPEC TYPE: Surgical DEPT: S ENTERED BY: [id number] RECV BY: [id number] ORDERED: HE/3, Gross/Micro L4/3, FS HE/6 ORDERED: [...] without any obvious acute inflammation -------- Specimen: [id number] Received: 02/12/24 Status: ESTEFANI Christianson Num: [id number] Spec Type: Surgical Subm Dr: Nickolas Hawthorne DO Tissues: A Synovium-Biopsy or tissue (DEEP SYNOVIAL #1) B Synovium-Biopsy or tissue (DEEP SYNOVIAL #2) C Synovium-Biopsy or tissue (DEEP SYNOVIAL #3) Procedures: HE/3, Gross/Micro L4/3, FS HE/6 -------- Patient: Melanie Espinoza [id number] (Continued) -------- Specimen: [id number] Received: 02/12/24 (Continued) Signed (signature on file) Kane Claudio MD 02/17/24 1746 -------- Specimen: [id number] Received: 02/12/24 Status: ESTEFANI Christianson Num: [id number] Spec Type: Surgical Subm Dr: Nickolas Hawthorne, DO Tissues: A Synovium-Biopsy or tissue (DEEP SYNOVIAL #1) B Synovium-Biopsy or tissue (DEEP SYNOVIAL #2) C Synovium-Biopsy or tissue (DEEP SYNOVIAL #3) Procedures: HE/3, Gross/Micro L4/3, FS HE/6 -------- Patient: Melanie Espinoza [id number] (Continued) -------- Specimen: [id number] Received: 02/12/24 (Continued) Clinical Information Rt shoulder pain, history of reverse Rt shoulder Gross Description A. Received fresh for frozen section labeled deep synovial #1 is an ovoid portion of mclaughlin-jj to pink, fibromembranous tissue, 1.5 x 0.8 x 0.2 cm. The specimen is entirely submitted for frozen section as A1. (1, ns, [id number] A) JG B. Received fresh for frozen section labeled deep synovial #2 is an ovoid sheet of mclaughlin- jj to pink, fibromembranous tissue, 0.9 x 0.8 x 0.3 cm. The specimen is entirely submitted for frozen section as B1. (1, ns, [id number] B) G C. Received fresh for frozen section labeled deep synovial #3 is an ovoid sheet of jj- pink to yellow fibromembranous tissue, 1.3 x 0.9 x 0.3 cm. The specimen is entirely submitted for frozen section as C1. (1, ns, [id number] C) Intraoperative Diagnosis A, -Rare neutrophils seen B, -Rare neutrophils seen C, -Rare neutrophils seen Reported by Dr. Dill on 02-12-24 Microscopic Description Microscopic examinations are performed supporting the above interpretation [facility] Codes [id number] -------- -------- Specimen: [id number] Received: 02/12/24 Status: ESTEFANI Christianson Num: [id number] Spec Type: Surgical Subm Dr: Nickolas Hawthorne, DO Tissues: A Synovium-Biopsy or tissue (DEEP SYNOVIAL #1) B Synovium-Biopsy or tissue (DEEP SYNOVIAL #2) C Synovium-Biopsy or tissue (DEEP SYNOVIAL #3) Procedures: HE/3, Gross/Micro L4/3, FS HE/6 -------- (more content not included)... Normal The Counts Include [address] [facility] Leukocytes [#/volume] correc andrew for nucleated erythrocytes in Blood by Automated counOrdered By: Nickolas Hawthorne on 02-12-2024 WBC corrected for nucl RBC Auto (Bld) [#/Vol] 6.5 10*3/uL 3.8-11.6 [facility] WBC corrected for nucl RBC Auto (Bld) [#/Vol] Leukocytes [#/volume] corrected for nucleated erythrocytes in Blood by Automated coun 3.8-11.6 [facility] Leukocytes [#/volume] in Blo od by Automated countOrdered By: Nickolas Hawthorne on 02-12-2024 WBC (Bld) [#/Vol] 6.5 10*3/uL Normal 3.8-11.6 [facility] Comment on above: Performed By: #### E SR, CBC, DDIMER, CRP #### [facility] [address] [place] [address] Lymphocytes Auto (Bld) [#/Vo l]Ordered By: Nickolas Hawthorne on 02-12-2024 Lymphocytes (Bld) [#/Vol] Lymphocytes [#/volume] in Blood by Automated count Low 1.00-4.8 [facility] Lymphocytes [#/volume] in Bl ood by Automated countOrdered By: Nickolas Hawthorne on 02-12-2024 Lymphocytes (Bld) [#/Vol] 0.9 10*3/uL Low 1.00-4.8 [facility] Comment on above: Performed By: #### E SR, CBC, DDIMER, CRP #### [facility] [address] [place] [address] Lymphocytes/100 WBC Auto (Bl d)Ordered By: Nickolas Hawthorne on 02-12-2024 Lymphocytes/100 WBC (Bld) Lymphocytes/100 leukocytes in Blood by Automated count . [facility] Lymphocytes/100 leukocytes i n Blood by Automated countOrdered By: Nickolas Hawthorne on 02-12-2024 Lymphocytes/100 WBC (Bld) 14.6 % Normal . [facility] Comment on above: Performed By: #### E SR, CBC, DDIMER, CRP #### [facility] [address] MCH Auto (RBC) [Entitic mass ]Ordered By: Nickolas Hawthorne on 02-12-2024 MCH (RBC) [Entitic mass] MCH [Entitic mass] by Automated count 24.7-34.3 [facility] MCH [Entitic mass] by Automa andrew countOrdered By: Nickolas Hawthorne on 02-12-2024 MCH (RBC) [Entitic mass] 28.7 pg Normal 24.7-34.3 [facility] Comment on above: Performed By: #### E SR, CBC, DDIMER, CRP #### [facility] [address] MCHC Auto (RBC) [Mass/Vol]Or dered By: Nickolas Hawthorne on 02-12-2024 MCHC (RBC) [Mass/Vol] 33.0 g/dL 32.0-35.0 [facility] MCHC (RBC) [Mass/Vol] MCHC [Mass/volume] by Automated count 32.0-35.0 [facility] MCV Auto (RBC) [Entitic vol] Ordered By: Nickolas Hawthorne on 02-12-2024 MCV (RBC) [Entitic vol] MCV [Entitic vol ume] by Automated count 80-100 [facility] MCV [Entitic volume] by Auto mated countOrdered By: Nickolas Hawthorne on 02-12-2024 MCV (RBC) [Entitic vol] 86.9 fL Normal 80-100 [facility] Comment on above: Performed By: #### E SR, CBC, DDIMER, CRP #### [facility] [address] Manual body fluid eosinophil s/100 leukocytesOrdered By: Nickolas Hawthorne on 02-12-2024 Eosinophils/100 WBC Manual cnt (Body fld) 0 % 0-2 [facility] Eosinophils/100 WBC Manual cnt (Body fld) Manual body fluid eosinophils/100 leukocytes 0-2 [facility] Manual body fluid erythrocyt es count (number/volume)Ordered By: Nickolas Hawthorne on 02-12-2024 RBC Manual cnt (Body fld) [#/Vol] 711920 /uL High 0-0 [facility] Comment on above: Body fluid is partia lly clotted and/or cell clumps or debris are present. Fluid cell count and differential results may not be reliable. Clinical correlation is recommended. RBC Manual cnt (Body fld) [#/Vol] Manual body fluid erythrocytes count (number/volume) High 0-0 [facility] Comment on above: Body fluid is partia lly clotted and/or cell clumps or debris are present. Fluid cell count and differential results may not be reliable. Clinical correlation is recommended. Manual body fluid lymphocyte s/100 leukocytesOrdered By: Nickolas Hawthorne on 02-12-2024 Lymphocytes/100 WBC Manual cnt (Body fld) 65 % 0-74 [facility] Lymphocytes/100 WBC Manual cnt (Body fld) Manual body fluid lymphocytes/100 leukocytes 0-74 [facility] Monocytes Auto (Bld) [#/Vol] Ordered By: Nickolas Hawthorne on 02-12-2024 Monocytes (Bld) [#/Vol] Automated blood monocyte count 0.0-0.8 [facility] Monocytes/100 WBC Auto (Bld) Ordered By: Nickolas Hawthorne on 02-12-2024 Monocytes/100 WBC (Bld) Automated monocyte % . [facility] Neutrophils Auto (Bld) [#/Vo l]Ordered By: Nickolas Hawthorne on 02-12-2024 Neutrophils (Bld) [#/Vol] Neutrophils [#/volume] in Blood by Automated count 1.8-7.7 [facility] Neutrophils [#/volume] in Bl ood by Automated countOrdered By: Nickolas Hawthorne on 02-12-2024 Neutrophils (Bld) [#/Vol] 4.8 10*3/uL Normal 1.8-7.7 [facility] Comment on above: Performed By: #### E SR, CBC, DDIMER, CRP #### [facility] [address] [place] [id number] [facility] Neutrophils/100 WBC Auto (Bl d)Ordered By: Nickolas Hawthorne on 02-12-2024 Neutrophils/100 WBC (Bld) Automated neutrophil % . [facility] Neutrophils/100 WBC Manual c nt (Body fld)Ordered By: Nickolas Hawthorne on 02-12-2024 Neutrophils/100 WBC (Body fld) 12 % 0-24 [facility] Neutrophils/100 WBC (Body fld) Manual body fluid neutrophils/100 leukocytes 0-24 [facility] No Panel InformationOrdered By: Nickolas Hawthorne on 02-12-2024 Synovial Fluid Comment See comment F [facility] Comment on above: Body fluid is partia lly clotted and/or cell clumps or debris are present. Fluid cell count and differential results may not be reliable. Clinical correlation is recommended. Synovial Fluid Supernatant Color Red [facility] Comment on above: The reference interv al and other method performance specifications have not been established for this body fluid. The test result must be integrated into the clinical context for interpretation. No Panel InformationOrdered By: Giancarlo Rojas on 02-12-2024 Estimated GFR (CKD-EPI) > 60.0 mL/Min [facility] Creatinine Clearance (Chem 44.31 [facility] Nucleated erythrocytes [Pres ence] in Blood by Automated countOrdered By: Nickolas Hawthorne on 02-12-2024 Nucleated RBC Auto Ql (Bld) 0.1 /100{WBC} 0-0.5 [facility] Nucleated RBC Auto Ql (Bld) Nucleated erythrocytes [Presence] in Blood by Automated count 0-0.5 [facility] Platelet mean volume Auto (B ld) [Entitic vol]Ordered By: Nickolas Hawthorne on 02-12-2024 Platelet mean volume (Bld) [Entitic vol] Platelet mean volume [Entitic volume] in Blood by Automated count 6.3-10.7 [facility] Platelet mean volume [Entiti c volume] in Blood by Automated countOrdered By: Nickolas Hawthorne on 02-12-2024 Platelet mean volume (Bld) [Entitic vol] 6.4 fL Normal 6.3-10.7 [facility] Comment on above: Performed By: #### E SR, CBC, DDIMER, CRP #### [facility] [address] [place] [address] [place] Platelets Auto (Bld) [#/Vol] Ordered By: Nickolas Hawthorne on 02-12-2024 Platelets (Bld) [#/Vol] Platelets [#/vol ume] in Blood by Automated count 150-450 [facility] Platelets [#/volume] in Bloo d by Automated countOrdered By: Nickolas Hawthorne on 02-12-2024 Platelets (Bld) [#/Vol] 411 10*3/uL Normal 150-450 [facility] Comment on above: Performed By: #### E SR, CBC, DDIMER, CRP #### [facility] [address] Potassium [Moles/volume] in Serum or PlasmaOrdered By: Giancarlo Rojas on 02-12-2024 Potassium [Moles/Vol] 4.3 mmol/L Normal 3.5-5.1 [facility] Comment on above: Performed By: #### B MP #### [facility] [address] Potassium [Moles/Vol] Potassium [Moles/volume] in Serum or Plasma 3.5-5.1 [facility] RBC Auto (Bld) [#/Vol]Ordere d By: Nickolas Hawthorne on 02-12-2024 RBC (Bld) [#/Vol] Erythrocytes [#/volume] in Blood by Automated count 3.60-5.00 [facility] Serum or plasma anion gap de terminationOrdered By: Giancarlo Rojas on 02-12-2024 Anion gap [Moles/Vol] 10.1 mmol/L Normal 6.0-15.0 [facility] Comment on above: Performed By: #### B MP #### [address] Anion gap [Moles/Vol] Serum or plasma an ion gap determination 6.0-15.0 [facility] Sodium [Moles/volume] in Ser um or PlasmaOrdered By: Giancarlo Rojas on 02-12-2024 Sodium [Moles/Vol] 132 mmol/L Low 136-145 [facility] Comment on above: Performed By: #### B MP #### [facility] [address] [place] [id number] [place] Sodium [Moles/Vol] Sodium [Moles/volume ] in Serum or Plasma Low 136-145 [facility] Synovial fluid differential cell countOrdered By: Nickolas Hawthorne on 02-12-2024 Differential panel (Syn fld) 23 % 0- [facility] Differential panel (Syn fld) Synovial fluid differential cell count 0-69 [facility] Type and Screenon 02-12-2024 ABO and Rh group Nom (Bld) Blood group O Rh(D) positive Normal The Counts Include 234 Beds At [facility] Comment on above: Result Comment: PERF ORMED BY: [place] [address] PATHOLOGIST PRINTING BINDERY ASSISTANT TAYA CRESPO M.D. Urea nitrogen [Mass/volume] in Serum or PlasmaOrdered By: Giancarlo Rojas on 02-12-2024 Urea nitrogen [Mass/Vol] 12 mg/dL Normal 11-06 [facility] Comment on above: Performed By: #### B MP #### [facility] [address] [place] [address] [place] Urea nitrogen [Mass/Vol] Urea nitrogen [Mass/volume] in Serum or Plasma 11-06 [facility] WBC Auto (Bld) [#/Vol]Ordere d By: Nickolas Hawthorne on 02-12-2024 WBC (Bld) [#/Vol] Leukocytes [#/volume ] in Blood by Automated count 3.8-11.6 [facility] XR shoulder LT 1Von 02-12-20 24 XR shoulder LT 1V [facility] [place] [address] XRay Report Signed Patient: Melanie Espinoza MR#: [id number] 6 : 1955 Acct:[id number] Age/Sex: 68 / F ADM Date: 02/12/24 Loc: [place] Room: Type: [facility] Attending Dr: Nickolas Hawthorne DO Copies to: [...] Erick Carranza M.D.02/12/2024 7:16 PM Dictation Location: [place] [id number] Transcribed By: [facility] 02/12/241915 Dictated By: Erick Carranza DO 02/12/241909 Signed By: 02/12/241915 Normal The Counts Include 234 Beds At [facility] Alanine aminotransferase [En zymatic activity/volume] in Serum or PlasmaOrdered By: Nickolas Hawthorne on 01-29-2024 ALT [Catalytic activity/Vol] 12 U/L Normal [facility] Comment on above: Performed By: #### C MP wRFX A1C, CBC #### [address] ALT [Catalytic activity/Vol] Alanine aminotransferase [Enzymatic activity/volume] in Serum or Plasma [facility] Albumin [Mass/volume] in Ser um or Plasma by Bromocresol green (BCG) dye binding methoOrdered By: Nickolas Hawthorne on 01-29-2024 Albumin BCG dye [Mass/Vol] 4.0 g/dL 3.5-5.7 [facility] Albumin BCG dye [Mass/Vol] Albumin [Mass/volume] in Serum or Plasma by Bromocresol green (BCG) dye binding metho 3.5-5.7 [facility] Alkaline phosphatase [Enzyma tic activity/volume] in Serum or PlasmaOrdered By: Nickolas Hawthorne on 01-29-2024 ALP [Catalytic activity/Vol] 89 U/L Normal 34-104 [facility] Comment on above: Result Comment: PERF ORMED BY: [place] [address] PATHOLOGIST PRINTING BINDERY ASSISTANT TAYA CRESPO M.D. Performed By: #### C MP wRFX A1C, CBC #### [address] ALP [Catalytic activity/Vol] Alkaline phosphatase [Enzymatic activity/volume] in Serum or Plasma 34-104 [facility] Appearance of UrineOrdered B y: Nickolas Hawthorne on 01-29-2024 Appearance (U) Urine appearance Clear [facility] Aspartate aminotransferase [ Enzymatic activity/volume] in Serum or PlasmaOrdered By: Nickolas Hawthorne on 01-29-2024 AST [Catalytic activity/Vol] 18 U/L Normal [facility] Comment on above: Performed By: #### C MP wRFX A1C, CBC #### [place] [id number] [facility] AST [Catalytic activity/Vol] Aspartate aminotransferase [Enzymatic activity/volume] in Serum or Plasma [facility] Automated basophil %Ordered By: Nickolas Hawthorne on 01-29-2024 Basophils/100 WBC (Bld) 0.7 % Normal . [facility] Comment on above: Performed By: #### C MP wRFX A1C, CBC #### [address] Automated basophil countOrde red By: Nickolas Hawthorne on 01-29-2024 Basophils (Bld) [#/Vol] 0.1 10*3/uL Normal 0.0-0.2 [facility] Comment on above: Result Comment: PERF ORMED BY: [place] [address] PATHOLOGIST PRINTING BINDERY ASSISTANT TAYA CRESPO M.D. Performed By: #### C MP wRFX A1C, CBC #### [address] Automated blood monocyte cou ntOrdered By: Nickolas Hawthorne on 01-29-2024 Monocytes (Bld) [#/Vol] 0.7 10*3/uL Normal 0.0-0.8 [facility] Comment on above: Performed By: #### C MP wRFX A1C, CBC #### [facility] [address] [place] [address] Automated eosinophil %Ordere d By: Nickolas Hawthorne on 01-29-2024 Eosinophils/100 WBC (Bld) 2.0 % Normal . [facility] Comment on above: Performed By: #### C MP wRFX A1C, CBC #### [facility] [address] Automated eosinophil countOr dered By: Nickolas Hawthorne on 01-29-2024 Eosinophils (Bld) [#/Vol] 0.2 10*3/uL Normal 0.0-0.45 [facility] Comment on above: Performed By: #### C MP wRFX A1C, CBC #### [facility] [address] [place] [address] Automated monocyte %Ordered By: Nickolas Hawthorne on 01-29-2024 Monocytes/100 WBC (Bld) 6.3 % Normal . [facility] Comment on above: Performed By: #### C MP wRFX A1C, CBC #### [facility] [address] [place] [address] Automated neutrophil %Ordere d By: Nickolas Hawthorne on 01-29-2024 Neutrophils/100 WBC (Bld) 81.1 % Normal . [facility] Comment on above: Performed By: #### C MP wRFX A1C, CBC #### [facility] [address] [place] [address] Basophils Auto (Bld) [#/Vol] Ordered By: Nickolas Hawthorne on 01-29-2024 Basophils (Bld) [#/Vol] Automated basoph il count 0.0-0.2 [facility] Basophils/100 WBC Auto (Bld) Ordered By: Nickolas Hawthorne on 01-29-2024 Basophils/100 WBC (Bld) Automated basophil % . [facility] Bilirubin Test strip Ql (U)O rdered By: Nickolas Hawthorne on 01-29-2024 Bilirubin Ql (U) Negative Negative [facility] Bilirubin Ql (U) Bilirubin.total [Presence] in Urine by Test strip Negative [facility] Bilirubin.total [Mass/volume ] in Serum or PlasmaOrdered By: Nickolas Hawthorne on 01-29-2024 Bilirubin [Mass/Vol] 0.2 mg/dL Low 0.3-1.[address] [facility] Comment on above: Performed By: #### C MP wRFX A1C, CBC #### [facility] [address] Bilirubin [Mass/Vol] Bilirubin.total [Mass/volume] in Serum or Plasma Low 0.3-1.0 [facility] CMP with reflex to A1Con Albumin [Mass/Vol] 4.0 g/dL Normal 3.5-5.7 The Counts Include 234 Beds [facility] Comment on above: Performed By: #### C MP wRFX A1C, CBC #### [facility] [address] GFR/1.73 sq M.predicted MDRD (S/P/Bld) [Vol rate/Area] mL/min/{1.73_m2} Normal The Counts Include 234 Beds [facility] Comment on above: Performed By: #### C MP wRFX A1C, CBC #### [facility] [address] [place] [address] CT shoulder RT wo conon 01-13 CT shoulder RT wo con [facility] [place] [address] CT Scan Report Signed Patient: Melanie Espinoza MR#: [id number] 6 : 1955 Acct:[id number] Age/Sex: 68 / F ADM Date: 01/29/24 Loc: [place] Room: Type: [facility] Attending Dr: Nickolas Hawthorne DO Copies to: Nickolas Hawthorne DO Ordering Provider: Nickolas Hawthorne DO Date of Service: 01/29/24 CT/CT shoulder RT wo con: Shantell protocol for pre operative CT shoulder RT wo con 01/29/2024 2:08 PM SIGNS AND SYMPTOMS: Shantell protocol for pre operative TECHNIQUE: Multidetector CT [...] Emma Bettencourt M.D.01/29/2024 4:32 PM Dictation Location: [place] [address] Transcribed By: [facility] 01/29/24 1632 Dictated By: Emma Bettencourt II, MD 01/29/24 1629 Signed By: 01/29/24 1632 Normal The Counts Include 234 Beds [facility] Calcium [Mass/volume] in Ser um or PlasmaOrdered By: Nickolas Hawthorne on 01-29-2024 Calcium [Mass/Vol] 9.1 mg/dL Normal 8.6-10.3 [facility] Comment on above: Performed By: #### C MP wRFX A1C, CBC #### [address] Calcium [Mass/Vol] Calcium [Mass/volume ] in Serum or Plasma 8.6-10.3 [facility] Carbon dioxide, total [Moles /volume] in Serum or PlasmaOrdered By: Nickolas Hawthorne on 01-29-2024 CO2 [Moles/Vol] 27.1 mmol/L Normal 21.0-31.0 [facility] Comment on above: Performed By: #### C MP wRFX A1C, CBC #### [facility] [address] CO2 [Moles/Vol] Carbon dioxide, tota l [Moles/volume] in Serum or Plasma 21.0-31.0 [facility] Chloride [Moles/volume] in S mirna or PlasmaOrdered By: Nickolas Hawthorne on 01-29-2024 Chloride [Moles/Vol] 95 mmol/L Low 98-[address] [facility] Comment on above: Performed By: #### C MP wRFX A1C, CBC #### [address] Chloride [Moles/Vol] Chloride [Moles/volume] in Serum or Plasma Low 98-107 [facility] Color Auto (U)Ordered By: Mat Hawthorne on 01-29-2024 Color (U) Color of Urine by Auto Yellow [facility] Color of Urine by AutoOrdere d By: Nickolas Hawthorne on 01-29-2024 Color (U) Colorless Normal [facility] Comment on above: Order Comment: Name Collection Type:: Clean-Voided Midstream Performed By: #### C UMRSA, UA #### [address] Complete Blood Count Auto Di ffon 01-29-2024 Mean Corpuscular HGB Conc 33.3 g/dL Normal 32.0-35.0 The Counts Include 234 Beds [facility] Comment on above: Performed By: #### C MP wRFX A1C, CBC #### [facility] [address] [place] [address] [place] NRBC% 0.1 /100{WBC} Normal 0-0.5 The Counts Include 234 Beds [facility] Comment on above: Performed By: #### C MP wRFX A1C, CBC #### [place] [address] [place] Creatinine [Mass/volume] in Serum or PlasmaOrdered By: Nickolas Hawthorne on 01-29-2024 Creatinine [Mass/Vol] 0.40 mg/dL Low 0.60-1.20 [facility] Comment on above: Performed By: #### C MP wRFX A1C, CBC #### [address] Creatinine [Mass/Vol] Creatinine [Mass/volume] in Serum or Plasma Low 0.60-1.20 [facility] ECG 12 lead ECGon 01-29-2024 ECG 12 lead ECG [facility] [place] [address] [place] [address] Electrocardiograph Report Signed Patient: Melanie Espinoza MR#: [id number] 6 : 1955 Acct:[id number] Age/Sex: 68 / F ADM Date: 01/29/24 Loc: Room: Type: [facility] Attending Dr: Nickolas Hawthorne DO Ordering Provider: [...] change was found Confirmed by SEAMUS JAMES [facility], LEI ([id number]) on 01/30/2024 4:29:01 PM Referred By: Electronically Signed By: LEI WAY MD [facility] Transcribed By: MUS Signed By Lei Way MD, FACC 01/30/24 3864 Normal The Counts Include 234 Beds [facility] Eosinophils Auto (Bld) [#/Vo l]Ordered By: Nickolas Hawthorne on 01-29-2024 Eosinophils (Bld) [#/Vol] Automated eosinophil count 0.0-0.45 [facility] Eosinophils/100 WBC Auto (Bl d)Ordered By: Nickolas Hawthorne on 01-29-2024 Eosinophils/100 WBC (Bld) Automated eosinophil % . [facility] Erythrocyte distribution wid th Auto (RBC) [Ratio]Ordered By: Nickolas Hawthorne on 01-29-2024 Erythrocyte distribution width (RBC) [Ratio] Erythrocyte distribution width [Ratio] by Automated count 11.9-15.3 [facility] Erythrocyte distribution wid th [Ratio] by Automated countOrdered By: Nickolas Hawthorne on 01-29-2024 Erythrocyte distribution width (RBC) [Ratio] 14.8 % Normal 11.9-15.3 [facility] Comment on above: Performed By: #### C MP wRFX A1C, CBC #### [facility] [address] [place] [address] Erythrocytes [#/volume] in B lood by Automated countOrdered By: Nickolas Hawthorne on 01-29-2024 RBC (Bld) [#/Vol] 4.40 10*6/uL Normal 3.60-5.00 [facility] Comment on above: Performed By: #### C MP wRFX A1C, CBC #### [facility] [address] [place] [address] Globulin Calc (S) [Mass/Vol] Ordered By: Nickolas Hawthorne on 01-29-2024 Globulin (S) [Mass/Vol] Serum globulin measurement by calculation (mass/volume) [facility] Glucose [Mass/volume] in Ser um or PlasmaOrdered By: Nickolas Hawthorne on 01-29-2024 Glucose [Mass/Vol] 96 mg/dL Normal 70-100 [facility] Comment on above: Performed By: #### C MP wRFX A1C, CBC #### [facility] [address] [place] [address] Glucose [Mass/Vol] Glucose [Mass/volume ] in Serum or Plasma 70-100 [facility] Glucose [Mass/volume] in Uri ne by Test stripOrdered By: Nickolas Hawthorne on 01-29-2024 Glucose Test strip (U) [Mass/Vol] Normal mg/dL Normal [facility] Glucose Test strip (U) [Mass/Vol] Glucose [Mass/volume] in Urine by Test strip Normal [facility] Hematocrit Auto (Bld) [Volum e fraction]Ordered By: Nickolas Hawthorne on 01-29-2024 Hematocrit (Bld) [Volume fraction] Hematocrit [Volume Fraction] of Blood by Automated count 34.0-46.4 [facility] Hematocrit [Volume Fraction] of Blood by Automated countOrdered By: Nickolas Hawthorne on 01-29-2024 Hematocrit (Bld) [Volume fraction] 38.3 % Normal 34.0-46.4 [facility] Comment on above: Performed By: #### C MP wRFX A1C, CBC #### [facility] [address] Hemoglobin Test strip Ql (U) Ordered By: Nickolas Hawthorne on 01-29-2024 Hemoglobin Ql (U) Negative Negative [facility] Hemoglobin Ql (U) Hemoglobin [Presence ] in Urine by Test strip Negative [facility] Hemoglobin [Mass/volume] in BloodOrdered By: Nickolas Hawthorne on 01-29-2024 Hemoglobin (Bld) [Mass/Vol] 12.8 g/dL Normal 11.8-15.4 [facility] Comment on above: Performed By: #### C MP wRFX A1C, CBC #### [address] Hemoglobin (Bld) [Mass/Vol] Hemoglobin [Mass/volume] in Blood 11.8-15.4 [facility] Ketones Test strip Ql (U)Ord ered By: Nickolas Hawthorne on 01-29-2024 Ketones Ql (U) Ketones [Presence] i n Urine by Test strip Negative [facility] Ketones [Presence] in Urine by Test stripOrdered By: Nickolas Hawthorne on 01-29-2024 Ketones Ql (U) Negative Normal Negative [facility] Comment on above: Order Comment: Name Collection Type:: Clean-Voided Midstream Performed By: #### C UMRSA, UA #### [facility] [address] [place] [address] Leukocyte esterase [Presence ] in Urine by Test stripOrdered By: Nickolas Hawthorne on 01-29-2024 Leukocyte esterase Test strip Ql (U) Negative Normal Negative [facility] Comment on above: Order Comment: Name Collection Type:: Clean-Voided Midstream Performed By: #### C UMRSA, UA #### [facility] [address] Leukocyte esterase Test strip Ql (U) Leukocyte esterase [Presence] in Urine by Test strip Negative [facility] Leukocytes [#/volume] correc andrew for nucleated erythrocytes in Blood by Automated counOrdered By: Nickolas Hawthorne on 01-29-2024 WBC corrected for nucl RBC Auto (Bld) [#/Vol] 11.0 10*3/uL 3.8-11.6 [facility] WBC corrected for nucl RBC Auto (Bld) [#/Vol] Leukocytes [#/volume] corrected for nucleated erythrocytes in Blood by Automated coun 3.8-11.6 [facility] Leukocytes [#/volume] in Blo od by Automated countOrdered By: Nickolas Hawthorne on 01-29-2024 WBC (Bld) [#/Vol] 11.0 10*3/uL Normal 3.8-11.6 [facility] Comment on above: Performed By: #### C MP wRFX A1C, CBC #### [facility] [address] Lymphocytes Auto (Bld) [#/Vo l]Ordered By: Nickolas Hawthorne on 01-29-2024 Lymphocytes (Bld) [#/Vol] Lymphocytes [#/volume] in Blood by Automated count 1.00-4.8 [facility] Lymphocytes [#/volume] in Bl ood by Automated countOrdered By: Nickolas Hawthorne on 01-29-2024 Lymphocytes (Bld) [#/Vol] 1.1 10*3/uL Normal 1.00-4.8 [facility] Comment on above: Performed By: #### C MP wRFX A1C, CBC #### [facility] [address] [place] [address] [place] Lymphocytes/100 WBC Auto (Bl d)Ordered By: Nickolas Hawthorne on 01-29-2024 Lymphocytes/100 WBC (Bld) Lymphocytes/100 leukocytes in Blood by Automated count . [facility] Lymphocytes/100 leukocytes i n Blood by Automated countOrdered By: Nickolas Hawthorne on 01-29-2024 Lymphocytes/100 WBC (Bld) 9.9 % Normal . [facility] Comment on above: Performed By: #### C MP wRFX A1C, CBC #### [facility] [address] MCH Auto (RBC) [Entitic mass ]Ordered By: Nickolas Hawthorne on 01-29-2024 MCH (RBC) [Entitic mass] MCH [Entitic mass] by Automated count 24.7-34.3 [facility] MCH [Entitic mass] by Automa andrew countOrdered By: Nickolas Hawthorne on 01-29-2024 MCH (RBC) [Entitic mass] 29.0 pg Normal 24.7-34.3 [facility] Comment on above: Performed By: #### C MP wRFX A1C, CBC #### [facility] [address] MCHC Auto (RBC) [Mass/Vol]Or dered By: Nickolas Hawthorne on 01-29-2024 MCHC (RBC) [Mass/Vol] 33.3 g/dL 32.0-35.0 [facility] MCHC (RBC) [Mass/Vol] MCHC [Mass/volume] by Automated count 32.0-35.0 [facility] MCV Auto (RBC) [Entitic vol] Ordered By: Nickolas Hawthorne on 01-29-2024 MCV (RBC) [Entitic vol] MCV [Entitic vol ume] by Automated count 80-100 [facility] MCV [Entitic volume] by Auto mated countOrdered By: Nickolas Hawthorne on 01-29-2024 MCV (RBC) [Entitic vol] 87.0 fL Normal 80-100 [facility] Comment on above: Performed By: #### C MP wRFX A1C, CBC #### [facility] [address] [place] [address] MRSA Cultureon 01-29-2024 MRSA Culture No MRSA Isolated 2 Days PERFORMED BY: [place] [address] PATHOLOGIST PRINTING BINDERY ASSISTANT TAYA CRESPO M.D. Normal The Counts Include 234 Beds [facility] Comment on above: Performed By: #### C UMRSA, UA #### [facility] [address] [place] [id number] [facility] Monocytes Auto (Bld) [#/Vol] Ordered By: Nickolas Hawthorne on 01-29-2024 Monocytes (Bld) [#/Vol] Automated blood monocyte count 0.0-0.8 [facility] Monocytes/100 WBC Auto (Bld) Ordered By: Nickolas Hawthorne on 01-29-2024 Monocytes/100 WBC (Bld) Automated monocyte % . [facility] Neutrophils Auto (Bld) [#/Vo l]Ordered By: Nickolas Hawthorne on 01-29-2024 Neutrophils (Bld) [#/Vol] Neutrophils [#/volume] in Blood by Automated count High 1.8-7.7 [facility] Neutrophils [#/volume] in Bl ood by Automated countOrdered By: Nickolas Hawthorne on 01-29-2024 Neutrophils (Bld) [#/Vol] 8.9 10*3/uL High 1.8-7.7 [facility] Comment on above: Performed By: #### C MP wRFX A1C, CBC #### [facility] [address] Neutrophils/100 WBC Auto (Bl d)Ordered By: Nickolas Hawthorne on 01-29-2024 Neutrophils/100 WBC (Bld) Automated neutrophil % . [facility] Nitrite Test strip Ql (U)Ord ered By: Nickolas Hawthorne on 01-29-2024 Nitrite Ql (U) Negative Negative [facility] Nitrite Ql (U) Nitrite [Presence] i n Urine by Test strip Negative [facility] No Panel InformationOrdered By: Nickolas Hawthorne on 01-29-2024 Estimated GFR (CKD-EPI) > 60.0 mL/Min [facility] Creatinine Clearance (Chem N/A [facility] Nucleated erythrocytes [Pres ence] in Blood by Automated countOrdered By: Nickolas Hawthorne on 01-29-2024 Nucleated RBC Auto Ql (Bld) 0.1 /100{WBC} 0-0.5 [facility] Nucleated RBC Auto Ql (Bld) Nucleated erythrocytes [Presence] in Blood by Automated count 0-0.5 [facility] Platelet mean volume Auto (B ld) [Entitic vol]Ordered By: Nickolas Hawthorne on 01-29-2024 Platelet mean volume (Bld) [Entitic vol] Platelet mean volume [Entitic volume] in Blood by Automated count 6.3-10.7 [facility] Platelet mean volume [Entiti c volume] in Blood by Automated countOrdered By: Nickolas Hawthorne on 01-29-2024 Platelet mean volume (Bld) [Entitic vol] 6.3 fL Normal 6.3-10.7 [facility] Comment on above: Performed By: #### C MP wRFX A1C, CBC #### [facility] [address] [place] [address] [place] Platelets Auto (Bld) [#/Vol] Ordered By: Nickolas Hawthorne on 01-29-2024 Platelets (Bld) [#/Vol] Platelets [#/vol ume] in Blood by Automated count 150-450 [facility] Platelets [#/volume] in Bloo d by Automated countOrdered By: Nickolas Hawthorne on 01-29-2024 Platelets (Bld) [#/Vol] 396 10*3/uL Normal 150-450 [facility] Comment on above: Performed By: #### C MP wRFX A1C, CBC #### [facility] [address] [place] [address] [place] Potassium [Moles/volume] in Serum or PlasmaOrdered By: Nickolas Hawthorne on 01-29-2024 Potassium [Moles/Vol] 4.8 mmol/L Normal 3.5-5.1 [facility] Comment on above: Performed By: #### C MP wRFX A1C, CBC #### [facility] [address] [place] [address] [place] Potassium [Moles/Vol] Potassium [Moles/volume] in Serum or Plasma 3.5-5.1 [facility] Protein Test strip (U) [Mass /Vol]Ordered By: Nickolas Hawthorne on 01-29-2024 Protein (U) [Mass/Vol] Negative Negative [facility] Protein (U) [Mass/Vol] Protein [Mass/vol ume] in Urine by Test strip Negative [facility] Protein [Mass/volume] in Ser um or PlasmaOrdered By: Nickolas Hawthorne on 01-29-2024 Protein [Mass/Vol] 6.6 g/dL Normal 6.4-8.9 [facility] Comment on above: Performed By: #### C MP wRFX A1C, CBC #### [facility] [address] Protein [Mass/Vol] Protein [Mass/volume ] in Serum or Plasma 6.4-8.9 [facility] RBC Auto (Bld) [#/Vol]Ordere d By: Nickolas Hawthorne on 01-29-2024 RBC (Bld) [#/Vol] Erythrocytes [#/volume] in Blood by Automated count 3.60-5.00 [facility] Serum globulin measurement b y calculation (mass/volume)Ordered By: Nickolas Hawthorne on 01-29-2024 Globulin (S) [Mass/Vol] 2.6 g/dL Normal [facility] Comment on above: Performed By: #### C MP wRFX A1C, CBC #### [facility] [address] Serum or plasma albumin/glob ulin mass ratioOrdered By: Nickolas Hawthorne on 01-29-2024 Albumin/Globulin [Mass ratio] 1.5 {ratio} Normal [facility] Comment on above: Performed By: #### C MP wRFX A1C, CBC #### [facility] [address] Albumin/Globulin [Mass ratio] Serum or plasma albumin/globulin mass ratio [facility] Serum or plasma anion gap de terminationOrdered By: Nickolas Hawthorne on 01-29-2024 Anion gap [Moles/Vol] 10.7 mmol/L Normal 6.0-15.0 [facility] Comment on above: Performed By: #### C MP wRFX A1C, CBC #### [facility] [address] [place] [id number] [facility] Anion gap [Moles/Vol] Serum or plasma an ion gap determination 6.0-15.0 [facility] Sodium [Moles/volume] in Ser um or PlasmaOrdered By: Nickolas Marine on 01-29-2024 Sodium [Moles/Vol] 128 mmol/L Low 136-145 [facility] Comment on above: Performed By: #### C MP wRFX A1C, CBC #### [facility] [address] Sodium [Moles/Vol] Sodium [Moles/volume ] in Serum or Plasma Low 136-145 [facility] Specific gravity Test strip (U) [Rel density]Ordered By: Nickolas Hawthorne on 01-29-2024 Specific gravity (U) [Rel density] 1.011 1.001-1.030 [facility] Specific gravity (U) [Rel density] Specific gravity of Urine by Test strip 1.001-1.030 [facility] Urea nitrogen [Mass/volume] in Serum or PlasmaOrdered By: Nickolas Hawthorne on 01-29-2024 Urea nitrogen [Mass/Vol] 15 mg/dL Normal 11-06 [facility] Comment on above: Performed By: #### C MP wRFX A1C, CBC #### [facility] [address] [place] [address] [place] Urea nitrogen [Mass/Vol] Urea nitrogen [Mass/volume] in Serum or Plasma 11-06 [facility] Urinalysison 01-29-2024 Bilirubin,Urine Negative Normal Negative The Counts Include 234 Beds At [facility] Comment on above: Order Comment: Name Collection Type:: Clean-Voided Midstream Performed By: #### C UMRSA, UA #### [facility] [address] Glucose Ql (U) Normal Normal Normal The Counts Include 234 Beds At [facility] Comment on above: Order Comment: Name Collection Type:: Clean-Voided Midstream Performed By: #### C UMRSA, UA #### [facility] [address] [place] [address] [place] Nitrite,Urine Negative Normal Negative The Counts Include 234 Beds At [facility] Comment on above: Order Comment: Name Collection Type:: Clean-Voided Midstream Performed By: #### C UMRSA, UA #### [facility] [address] [place] [address] Occult Blood,Urine Negative Normal Negative The Counts Include 234 Beds At [facility] Comment on above: Order Comment: Name Collection Type:: Clean-Voided Midstream Result Comment: PERF ORMED BY: [place] [address] PATHOLOGIST PRINTING BINDERY ASSISTANT TAYA CRESPO M.D. Performed By: #### C UMRSA, UA #### [address] Protein,Urine Negative Normal Negative The Counts Include 234 Beds At [facility] Comment on above: Order Comment: Name Collection Type:: Clean-Voided Midstream Performed By: #### C UMRSA, UA #### [address] Specificy [place],Urine 1.011 Normal 1.001-1.030 The Counts Include 234 Beds At [facility] Comment on above: Order Comment: Name Collection Type:: Clean-Voided Midstream Performed By: #### C UMRSA, UA #### [address] Urobilinogen,Urine Normal Normal Normal The Counts Include 234 Beds At [facility] Comment on above: Order Comment: Name Collection Type:: Clean-Voided Midstream Performed By: #### C UMRSA, UA #### [address] Urine appearanceOrdered By: Nickolas Hawthorne on 01-29-2024 Appearance (U) Clear Normal Clear [facility] Comment on above: Order Comment: Name Collection Type:: Clean-Voided Midstream Performed By: #### C UMRSA, UA #### [address] Urobilinogen Test strip (U) [Mass/Vol]Ordered By: Nickolas Hawthorne on 01-29-2024 Urobilinogen (U) [Mass/Vol] Normal mg/dL Normal [facility] Urobilinogen (U) [Mass/Vol] Urobilinogen [Mass/volume] in Urine by Test strip Normal [facility] WBC Auto (Bld) [#/Vol]Ordere d By: Nickolas Hawthorne on 01-29-2024 WBC (Bld) [#/Vol] Leukocytes [#/volume ] in Blood by Automated count 3.8-11.6 [facility] Wound methicillin resistant Staphylococcus aureus (MRSA) cultureOrdered By: Nickolas Hawthorne on 01-29-2024 MRSA isol Org specific cx Ql (Unsp spec) Wound methicillin resistant Staphylococcus aureus (MRSA) culture [facility] MRSA isol Org specific cx Ql (Unsp spec) No MRSA Isolated 2 Days [facility] pH Test strip (U)Ordered By: Nickolas Hawthorne on 01-29-2024 pH (U) pH of Urine by Test strip 5.0-9.0 [facility] pH of Urine by Test stripOrd ered By: Nickolas Hawthorne on 01-29-2024 pH (U) 7.0 [pH] Normal 5.0-9.0 [facility] Comment on above: Order Comment: Name Collection Type:: Clean-Voided Midstream Performed By: #### C BERNABE, UA #### [facility] [address] XR shoulder RT min 2V*on XR shoulder RT min 2V* [facility] [address] [place] [address] XRay Report Signed Patient: Melanie Espinoza MR#: [id number] 6 : 1955 Acct:[id number] Age/Sex: 68 / F ADM Date: 01/23/24 [place] [facility] [place] Type: [facility] Attending Dr: Stevenson Corbin MD [...] Erick Carranza M.D.01/23/2024 2:49 PM Dictation Location: [place] [address] Transcribed By: [facility] 01/23/24 1449 Dictated By: Erick Carranza DO 01/23/24 1439 Signed By: 01/23/24 144 [facility] Office Visiton 01-17-2024 Follow-up visit [id number] Melanie Espinoza 1955 F Date Provider Department Center 01/17/2024 [id number]-YMFCJMLEONIE JOYA KARI [facility] Family History Problem Relation Age of Onset Hypertension Mother Stroke Mother Heart attack Father Family Status - Relation Status Age at Mother Father Level of Service:92251 MT OFFICE/OUTPATIENT ESTABLISHED LOW MDM 20 MIN Reason for Visit and Comments: Hyperlipidemia [182] Hypertension [040164] - Pt is here for a three month follow up. [facility] Office Visiton 01-16-2024 Follow-up visit [id number] Melanie Espinoza 1955 Date Provider Department Center 01/16/2024 293ERNESTO RANDOLPH MP [facility] Family History Problem Relation Age of Onset Hypertension Mother Stroke Mother Heart attack Father Family Status - Relation Status Age at Mother Father Level of Service:17740 MT POSTOP FOLLOW UP VISIT RELATED TO ORIGINAL PX (GC) Reason for Visit and Comments: Post-op [483] - L NICOLASA post op Normal [facility] Telemedicineon 12-26-2023 Telemedicine [id number] Melanie Espinoza 1955 Provider Department Center 12/26/2023 293ERNESTO RANDOLPH MP ORTHO [facility] Family History Problem Relation Age of Onset Hypertension Mother Stroke Mother Heart attack Father Family Status - Relation Status Age at Mother Father Level of Service:03567 MT POSTOP FOLLOW UP VISIT RELATED TO ORIGINAL PX Reason for Visit and Comments: Pain [136] - TELEMED PHONE CONVO 1ST POST OP Post-op [483] - TELEMED PHONE CONVO 1ST POST OP Normal [facility] Ekta 12-25-2023 CNPN Telephone (NEUWIL) MELANIE ESPINOZA ([id number]) 1955 F Date Time Provider Department 12/25/23 TAI HINOJOSA During your visit today, we recorded the following information about you: Esperanza Larios 12/25/2023 4:36 PM Signed Destiney calling to ask since pt insurance changed is there a alternative to Austedo that the pt can be giving. Please call her at [phone] Radha Tilley 12/26/2023 10:29 AM Signed [facility] at [facility] calling again, says patient is out of medication... requesting alternative medication Arnold Hall, [place] 12/26/2023 10:40 AM Signed Spoke to Destiney at [facility]. Pt using inpatient pharmacy and her insurance changed, states Austedo is $7800/month, and Pt cannot afford, has not had medication in 3 days. Pharmacist recommended alternatives below, Destiney states Pt can afford either option, looking for whatever would be the best alternative. -Amantadine 100mg BID ($18/month) -Tetrabenazine 25mg BID ($1300/month) Please fax new script to [phone] Forwarded to Provider to review. Elise Burks 12/26/2023 3:22 PM Signed [facility] is calling back to see if you fax rx to them. caller would like a call back either way today if rx was faxed or not Caller can be reached at [phone] Tai Hinojosa MD 12/27/2023 2:06 PM Signed Ok I am ordering BOTH of these. Amantadine may cause forgetfulness and hallucinations TBZ is usually a 3x/day med, but I am only ordering is bid bc that's they priced. Lynnette Ortiz, [place] 12/27/2023 2:13 PM Signed Rx's faxed Spoke with academic support director at [facility]. Destiney is not in today Will relay the message from me Martin Ortiz RN ext [phone] Allergies As of Date: 12/25/2023 Noted Allergy Reaction ERYTHROMYCIN 05/14/2023 16 - Unknown Date Reviewed: 11/12/2023 Reviewed by: Mary Gibbs MA - Fully Assessed Reason for Visit: Medication Problem [65] Primary Visit Diagnosis:Dyskinesia, tardive [G24.01] Order(s):tetrabenazin e (XENAZINE) 25 mg tabletTake 1 tablet by mouth two times a day.Disp: 60 tabletRfl: 2 amantadine HCl (SYMMETREL) 100 mg tabletTake 1 tablet by mouth two times a day.Disp: 60 tabletRfl: 2 Prescriptions as of 08/12/2024 - tetrabenazine (XENAZINE) 25 mg tablet Take 1 tablet by mouth two times a day. - amantadine HCl (SYMMETREL) 100 mg tablet Take 1 tablet by mouth two times a day. - celecoxib (CELEBREX) 100 mg capsule Take 100 mg by mouth two times a day. - clonazePAM (KLONOPIN) 0.5 mg tablet Take 0.5 mg by mouth three times a day. Take 3 tablets by mouth 3 times a day. - mirtazapine (REMERON) 15 mg tablet Take 15 mg by mouth daily at bedtime. - carBAMazepine (TEGRETOL) 200 mg tablet Take 1 tablet by mouth three times a day. [Start with this only twice a day for 1-2 weeks, then go to 3 doses per day - cyclobenzaprine (FLEXERIL) 10 mg tablet - guaiFENesin-dextromet horphan (ROBITUSSIN DM) 100-10 mg/5 mL syrup Take 10 mL by mouth every 6 hours as needed. - levothyroxine (SYNTHROID) 75 mcg tablet - traZODone (DESYREL) 100 mg tablet - clonazePAM (KLONOPIN) 1 mg tablet Take 1.5 tablets by mouth three times daily for 90 days. [including bedtime] - HYDROcodone-acetamino phen (NORCO) 5-325 mg per tablet Take 1 tablet by mouth every 8 hours as needed for pain. - gabapentin (NEURONTIN) 600 mg tablet Take [...] mouth four times daily as needed. - polyethylene glycol 3350 17 gram/dose powder [...] needed. - ondansetron (ZOFRAN) 4 mg tablet (more content not included)... Normal [facility] 3612-23-2023 36 CALLED FACILITY TO MOVE UP 1ST POST OP KARIE'T TO AM ON MONDAY 12/25 AND PER RN, PATIENT FELL TWICE OVER WEEKEND, WAS NOT TAKEN TO ER NOR XRAYS DONE AND PATIENT WAS JUST DIAGNOSED WITH COVID TODAY. PLEASE ADVISE. THANKS [facility] 12-12-2023 36 I spoke to the nurse [...] They had no questions or concerns. Normal [facility] 30on 12-10-2023 30 Daily Case Managemen t Update Multidisciplinary rounds have been completed. Barriers to Discharge: Pending clinical course and improvement in clinical condition. POD 3 Left hip Arthroplasty. Neurology looking into causes of hyponatremia given meds (Na 132 today). Neurology discontinued Carbamazepine pt/ot=SNF. Discharge plan is [facility] when medically ready Diet: Dietary Orders (From [...] OT Six Click Score: 13 PT Recommendations: penitentiary facility placement OT Recommendations: penitentiary facility placement New Consults: Consult Orders (From [...] muscular skeletal surgical procedure 12/06/23 1347 Normal [facility] 30 The patient is Moderately Stable - [...] maintained or improved Outcome: Not Progressing Normal [facility] BASIC METABOLIC PANELon 08-2 Anion gap [Moles/Vol] 10 mmol/L Normal 7-20 [facility] Comment on above: Performed By: #### L [id number] #### [facility] ([facility]AKER) [address] [place] [address] Calcium [Mass/Vol] 7.3 mg/dL Low 8.6-10.3 [facility] Comment on above: Performed By: #### L [id number] #### [facility] ([facility]) [address] [place] [address] Chloride [Moles/Vol] 101 mmol/L Normal 98-107 [facility] Comment on above: Performed By: #### L [id number] #### [facility] ([facility]) [address] [place] [id number] CO2 [Moles/Vol] 24 mmol/L Normal 21-31 [facility] Comment on above: Performed By: #### L [id number] #### [facility] ([facility]) [address] [place] [id number] Creatinine [Mass/Vol] 0.29 mg/dL Low 0.60-1.20 [facility] Comment on above: Performed By: #### L [id number] #### [facility] ([facility]) [address] [place] [id number] GLOMERULAR FILTRATION RATE ML/MIN/1.73 SQ M.PREDICTED 116.4 mL/min/1.73m*2 Normal >60.0 [facility] Comment on above: Result Comment: The [facility]???s estimated glomerular filtration rate (eGFR) will no [...] individuals. Performed By: #### L [id number] #### [facility] ([facility]) [address] [place] [id number] Glucose [Mass/Vol] 99 mg/dL Normal 70-100 [facility] Comment on above: Performed By: #### L [id number] #### [facility] ([facility]) [address] [place] [id number] Potassium [Moles/Vol] 3.3 mmol/L Low 3.5-5.1 [facility] Comment on above: Performed By: #### L [id number] #### [facility] ([facility]) [address] [place] [id number] Urea nitrogen [Mass/Vol] 6 mg/dL Low 7-25 [facility] Comment on above: Performed By: #### L [id number] #### [facility] ([facility]AKER) [address] [place] [address] UREA NITROGEN/CREATININE (MASS RATIO) IN SER/PLAS 20.7 Normal [facility] Comment on above: Performed By: #### L [id number] #### [facility] ([facility]) [address] [place] [id number] CONSULTon 12-10-2023 CONSULT 15:15-SW requested 4:20pm transportation to [facility]. 16:20-Discharge order placed. [facility]S [facility] to [facility] Transport set up with [facility] at 4:25PM. Transport form and packet completed and left beside the chart. Facility and floor RN aware of transport time. Phone number for report left with packet. 3805 completed. No further OTM needs at this time. Normal [facility] DSon 12-10-2023 DS - Attestation signed by Ernesto Kan MD at 01/06/2024 7:10 AM I did not personally see the patient on the day of the encounter,I discussed with the resident Cm Lyon MD and agree with the documentation. Admission Admitted 12/06/2023 for AVN (avascular necrosis of bone) (* Discharge Diagnosis Traumatic arthritis of left hip Discharge Disposition [facility] Facility (03) Discharge Medications Your medication list [...] Medications These medications were sent to [facility] - [place], [place] - [address], [facility] [address] aspirin 325 mg tablet doxycycline 100 mg [...] (L) Consults to nephrology, IMS Discharged 12/09 [facility] Pertinent Physical Exam At Time of [...] Anion G (more content not included)... Normal [facility] NURSNOTEon 12-10-2023 NURSNOTE Report given to ms hilliard from [facility] in [place] @ [phone]. Notified ms hilliard that transport unable to take with them patient's wheelchair d/t it becoming a hazard in case of accident as no securement device for wheelchairs inside their mobile. Normal [facility] SODIUMon 12-10-2023 Sodium [Moles/Vol] 132 mmol/L Low 136-145 [facility] Comment on above: Performed By: #### L [id number] #### [facility] ([facility]ER) [address] [place] [address] 30on 12-09-2023 30 Daily Case Managemen t Update Multidisciplinary rounds have been completed. Barriers to Discharge: Pending clinical course and improvement in clinical condition. Neurology consult to determine if the drugs that she is receiving for dyskinesia/tremor are contributing to the hyponatremia. Neurology discontinued Carbamazepine and started on Keppra. Discharge plan is [facility] when medically ready. Diet: Dietary Orders (From [...] OT Six Click Score: 13 PT Recommendations: penitentiary facility placement OT Recommendations: penitentiary facility placement New Consults: Consult Orders (From [...] muscular skeletal surgical procedure 12/06/23 1347 Normal [facility] BASIC METABOLIC PANELon 11-14 Anion gap [Moles/Vol] 11 mmol/L Normal 7-20 [facility] Comment on above: Performed By: #### L [id number] #### [facility] ([facility]) [address] [place] [address] Calcium [Mass/Vol] 7.6 mg/dL Low 8.6-10.3 [facility] Comment on above: Performed By: #### L [id number] #### [facility] ([facility]) [address] [facility] [place] [address] Chloride [Moles/Vol] 99 mmol/L Normal 98-107 [facility] Comment on above: Performed By: #### L [id number] #### [facility] ([facility]) [address] [facility] [place] [address] CO2 [Moles/Vol] 23 mmol/L Normal 21-31 [facility] Comment on above: Performed By: #### L [id number] #### [facility] ([facility]) [address] [place] [address] Creatinine [Mass/Vol] 0.37 mg/dL Low 0.60-1.20 [facility] Comment on above: Performed By: #### L [id number] #### [facility] ([facility]) [address] [place] [id number] GLOMERULAR FILTRATION RATE ML/MIN/1.73 SQ M.PREDICTED 109.8 mL/min/1.73m*2 Normal >60.0 [facility] Comment on above: Result Comment: The [facility]???s estimated glomerular filtration rate (eGFR) will no [...] individuals. Performed By: #### L [id number] #### [facility] ([facility]) [address] [facility] [place] [address] Glucose [Mass/Vol] 104 mg/dL High 70-100 [facility] Comment on above: Performed By: #### L [id number] #### [facility] ([facility]) [address] [place] [address] Potassium [Moles/Vol] 3.3 mmol/L Low 3.5-5.1 [facility] Comment on above: Performed By: #### L [id number] #### [facility] ([facility]) [address] [place] [address] Sodium [Moles/Vol] 130 mmol/L Low 136-145 [facility] Comment on above: Performed By: #### L [id number] #### [facility] ([facility]) [address] [facility] [place] [address] Urea nitrogen [Mass/Vol] 10 mg/dL Normal 7-25 [facility] Comment on above: Performed By: #### L [id number] #### [facility] ([facility]) [address] [place] [address] UREA NITROGEN/CREATININE (MASS RATIO) IN SER/PLAS 27.0 Normal [facility] Comment on above: Performed By: #### L [id number] #### [facility] ([facility]) [address] [place] [address] CONSULTon 12-09-2023 CONSULT Consults History Of Present Illness This is a 68-year-old woman who was admitted to the hospital for hip surgery. She was noted to be hyponatremic and neurology was consulted to determine if the drugs that she is receiving for dyskinesia/tremor are contributing to the hyponatremia. Patient is followed at the [facility] where she has been diagnosed with tardive [...] disease, Closed fracture of neck of femur ([facility]) (06/16/2020), COVID-19 (07/04/2023), Dysphagia, Epilepsy ([facility]), GERD (gastroesophageal reflux disease), Hyperlipidemia, Hypertension, Major depressive disorder, Osteoarthritis, Peripheral vascular disease ([facility]), Rectal prolapse, Rhabdomyolysis (07/04/2023), Sepsis ([facility]) (07/04/2023), Tardive dyskinesia, and Tremor. Surgical History [...] and tremor and is followed at the [facility]. Medications that she is on include deutetrabenazine, clonazepam and primidone. She is also on carbamazepine although the indications for this medicine are not clear. Of all the neurological medicatio (more content not included)... Normal [facility] CORTISOLon 12-09-2023 CORTISOL (UG/DL) IN SER/PLAS 21.8 ug/dL Normal 6-23 [facility] Comment on above: Performed By: #### L [id number] ####[facility] (BEAKER)[address] [place] [address] OSMOLALITYon 12-09-2023 OSMOLALITY MEASURED 274 mOsm/kg Low 275-295 [facility] Comment on above: Result Comment: Test Performed by [facility] [address] [place] [address] - Released 12/09/2023 18:46 Performed By: #### L [id number] #### [facility] ([facility]) [address] [place] [address] SODIUMon 12-09-2023 Sodium [Moles/Vol] 129 mmol/L Low 136-145 [facility] Comment on above: Performed By: #### L [id number] #### [facility] ([facility]) [address] [place] [address] 30on 12-08-2023 30 The patient is Moderately Stable - Low risk of patient condition declining or worsening The patient's goals for the shift include comfort The clinical goals for the shift include safety Normal [facility] BASIC METABOLIC PANELon 11-14 Anion gap [Moles/Vol] 15 mmol/L Normal 7-20 [facility] Comment on above: Performed By: #### L [id number] #### [facility] ([facility]) [address] [place] [address] Calcium [Mass/Vol] 8.0 mg/dL Low 8.6-10.3 [facility] Comment on above: Performed By: #### L [id number] #### [facility] ([facility]) [address] [place] [address] Chloride [Moles/Vol] 93 mmol/L Low 98-107 [facility] Comment on above: Performed By: #### L [id number] #### [facility] ([facility]) [address] [place] [address] CO2 [Moles/Vol] 23 mmol/L Normal 21-31 [facility] Comment on above: Performed By: #### L [id number] #### [facility] ([facility]) [address] [place] [address] Creatinine [Mass/Vol] 0.39 mg/dL Low 0.60-1.20 [facility] Comment on above: Performed By: #### L [id number] #### [facility] ([facility]) [address] [place] [address] GLOMERULAR FILTRATION RATE ML/MIN/1.73 SQ M.PREDICTED 108.4 mL/min/1.73m*2 Normal >60.0 [facility] Comment on above: Result Comment: The [facility]???s estimated glomerular filtration rate (eGFR) will no [...] individuals. Performed By: #### L [id number] #### [facility] ([facility]) [address] [place] [address] Glucose [Mass/Vol] 103 mg/dL High 70-100 [facility] Comment on above: Performed By: #### L [id number] #### [facility] ([facility]) [address] [place] [address] Potassium [Moles/Vol] 3.8 mmol/L Normal 3.5-5.1 [facility] Comment on above: Performed By: #### L [id number] #### [facility] ([facility]) [address] [place] [address] Sodium [Moles/Vol] 127 mmol/L Low 136-145 [facility] Comment on above: Performed By: #### L [id number] #### [facility] ([facility]) [address] [place] [address] Urea nitrogen [Mass/Vol] 17 mg/dL Normal 7-25 [facility] Comment on above: Performed By: #### L [id number] #### [facility] ([facility]) [address] [place] [address] UREA NITROGEN/CREATININE (MASS RATIO) IN SER/PLAS 43.6 Normal [facility] Comment on above: Performed By: #### L [id number] #### [facility] (BEAKER) [address] [place] [address] OSMOLALITY, URINEon 12-08-19 24 OSMOLALITY, URINE 546 mOsm/kg Normal 80-1300 [facility] Comment on above: Result Comment: Test Performed by [facility] [address] [place] [address] - Released 12/09/2023 14:01 Performed By: #### L [id number] #### [facility] [address] [facility] [facility] [place] [address] SODIUMon 12-08-2023 Sodium [Moles/Vol] 128 mmol/L Low 136-145 [facility] Comment on above: Performed By: #### L [id number] #### [facility] ([facility] [address] [place] [address] SODIUM, URINE, RANDOMon 11-14 Sodium (U) [Moles/Vol] 13 mmol/L Normal Un [facility] Comment on above: Performed By: #### L [id number] ####[facility] ([facility])[address] [place] [address] TSH3 REFLEX TO FT4on 024 THYROTROPIN (MIU/L) IN SER/PLAS BY DETECTION LIMIT <= 0.05 MIU/L 1.56 mIU/L Normal 0.34-5.60 [facility] Comment on above: Performed By: #### L [id number] ####[facility] (BEAKER)[address] [place] [address] BASIC METABOLIC PANELon 11-14 Anion gap [Moles/Vol] 13 mmol/L Normal 7-20 [facility] Comment on above: Performed By: #### L [id number] #### [facility] (BEAKER) [address] [place] [address] Calcium [Mass/Vol] 8.6 mg/dL Normal 8.6-10.3 [facility] Comment on above: Performed By: #### L [id number] #### [facility] ([facility]ER) [address] [place] [address] Chloride [Moles/Vol] 90 mmol/L Low 98-107 [facility] Comment on above: Performed By: #### L [id number] #### [facility] (BEAKER) [address] [place] [address] CO2 [Moles/Vol] 26 mmol/L Normal 21-31 [facility] Comment on above: Performed By: #### L [id number] #### [facility] ([facility]) [address] [place] [id number] Creatinine [Mass/Vol] 0.45 mg/dL Low 0.60-1.20 [facility] Comment on above: Performed By: #### L [id number] #### [facility] ([facility]) [address] [place] [address] GLOMERULAR FILTRATION RATE ML/MIN/1.73 SQ M.PREDICTED 104.7 mL/min/1.73m*2 Normal >60.0 [facility] Comment on above: Result Comment: The [facility]???s estimated glomerular filtration rate (eGFR) will no [...] individuals. Performed By: #### L [id number] #### [facility] ([facility]) [address] [place] [address] Glucose [Mass/Vol] 118 mg/dL High 70-100 [facility] Comment on above: Performed By: #### L [id number] #### [facility] ([facility]) [address] [place] [address] Potassium [Moles/Vol] 4.2 mmol/L Normal 3.5-5.1 [facility] Comment on above: Performed By: #### L [id number] #### [facility] ([facility]) [address] [place] [id number] Sodium [Moles/Vol] 125 mmol/L Low 136-145 [facility] Comment on above: Performed By: #### L [id number] #### [facility] ([facility]) [address] [place] [id number] Urea nitrogen [Mass/Vol] 11 mg/dL Normal 7-25 [facility] Comment on above: Performed By: #### L [id number] #### [facility] ([facility]) [address] [place] [address] UREA NITROGEN/CREATININE (MASS RATIO) IN SER/PLAS 24.4 Normal [facility] Comment on above: Performed By: #### L [id number] #### [facility] ([facility]) [address] [place] [id number] BLOOD CULTUREon 12-07-2023 Bacteria identified Cx Nom (Bld) No growth at 5 days Normal [facility] Comment on above: Performed By: #### L [id number] ####[facility] ([facility])[address] [place] [id number] Order Comment: From a different site than #1. CBCon 12-07-2023 Erythrocyte distribution width (RBC) [Ratio] 14.0 % Normal 11.5-15.0 [facility] Comment on above: Performed By: #### L [id number] #### [facility] ([facility]) [address] [place] [address] ERYTHROCYTE MEAN CORPUSCULAR HEMOGLOBIN CONCENTRATION (G/DL) BY AUTOMATED 32.2 g/dL Normal 32.0-35.0 [facility] Comment on above: Performed By: #### L [id number] #### [facility] ([facility]) [address] [place] [address] Hematocrit (Bld) [Volume fraction] 37.6 % Normal 36.0-48.0 [facility] Comment on above: Performed By: #### L [id number] #### [facility] ([facility]) [address] [place] [id number] Hemoglobin (Bld) [Mass/Vol] 12.1 g/dL Normal 12.0-15.0 [facility] Comment on above: Performed By: #### L [id number] #### [facility] ([facility]) [address] [place] [id number] MCH (RBC) [Entitic mass] 28.5 pg Normal 27.0-33.0 [facility] Comment on above: Performed By: #### L [id number] #### [facility] ([facility]) [address] [place] [id number] MCV (RBC) [Entitic vol] 88.7 fL Normal 82.0-98.0 [facility] Comment on above: Performed By: #### L [id number] #### [facility] ([facility]) [address] [place] [id number] PLATELETS (10*3/UL) IN BLOOD AUTOMATED COUNT 651 10*3/uL High 150-400 [facility] Comment on above: Performed By: #### L [id number] #### [facility] ([facility]) [address] [place] [address] RBC (Bld) [#/Vol] 4.24 10*6/uL Normal 3.80-5.00 [facility] Comment on above: Performed By: #### L [id number] #### [facility] ([facility]) [address] [place] [id number] WBC (Bld) [#/Vol] 20.49 10*3/uL High 4.00-10.60 [facility] Comment on above: Performed By: #### L [id number] #### [facility] ([facility]) [address] [place] [id number] PROCALCITONIN TESTon 024 PROCALCITONIN IN BLOOD 0.07 ng/mL Normal 0.00-0.10 [facility] Comment on above: Result Comment: [...] and initial PCT<0.5ng/mL Performed By: #### L [id number] ####[facility] (BEAKER)[address] [place] [address] [facility] 12-06-2023 [facility] - Attestation signed by Jeffrey Summers MD at 12/06/2023 6:31 PM I reviewed and agree with the above note. I spoke to and evaluated the patient myself and they are willing to proceed as planned. Jeffrey Summers MD Patient: Melanie Espinoza Procedure Information Date/Time: 12/06/23 0730 Procedure: LEFT HIP CONVERSION TO TOTAL HIP ARTHROPLASTY ANTERIOR APPROACH (Left: Hip) - C-ARM, X3 SCREWS IN, BIOMET, *PT FROM ECF, DO NOT MOVE FROM 7:30am*, REP NOTIFIED 11/24 [place] Location: [facility] OPERATING ROOM 02 / [facility] Operating Room Surgeons: Ernesto Kan MD Relevant Problems Cardio (+) Atherosclerosis of [place] coronary artery of [place] heart without angina pectoris (+) Primary hypertension [...] the morning a (more content not included)... [facility] CONSULTon 12-06-2023 CONSULT - Attestation signed by [...] BILIRUB , ESTEFANÍA (more content not included)... [facility] HPon 12-06-2023 HP H&P reviewed. The patient [...] plan all questions answered and consents signed. [facility] OPNOTEon 12-06-2023 OPNOTE LEFT HIP CONVERSION TO TOTAL HIP ARTHROPLASTY ANTERIOR APPROACH (L) Operative Note Date: 12/06/2023 Location: [facility] OR Name: Melanie EspinozaDOB: 1955, Diagnosis [...] CULTURE Ernesto Kan MD 12/06/23 0904 Routine [id number], [id number] Description: #1. LEFT HIP TISSUE Implants Type Name Action Serial No. [employer], PLA[place] Used, Not Implanted Total Joint G7 ACETABULAR SYSTEM SHELL Implanted Screw SCREW,BONE,6.7G70SELF -TAP - [id number] Implanted Screw SCREW,BONE,SELF-TAP,6 .5X35MM - [id number] Implanted Screw SCREW,BONE,SELF-TAP,6 .5X30MM - [id number] Implanted Screw SCREW,BONE,SELF-TAP,6 .5X20MM - [id number] Implanted Total Joint LINER,G7,E1,40,F - [id number] Implanted Total Joint STEM,REDUCE,DISTAL,ST ND,9.0 - [id number] Implanted Total Joint HEAD,BIOLOX-D MOD,40MM - [id number] Implanted Total Joint SLEEVE,BIOLOX OPTION TYPE 1,-6 - [id number] Implanted Staff: Offal Separator: iNkia Reddy RN Scrub Person: Cordelia Brand CST Coroner Transport Technician: Bethel Robles CSA Indications: Melanie Espinoza is an 68 y.o. female who is having surgery for AVN (avascular necrosis of bone) ([facility]) [M87.00]Primary osteoarthritis of left hip [M16.12]. who [...] advanced degenerative joint disease Left hip with ogog-xo-fafu arthritis of the Left hip with femoral [...] of the screws and the cannulated screw driver merchandiser was inserted and the screws were removed. [...] to th (more content not included)... Normal [facility] POCT GLUCOSE METER UNSOLICIT ED RESULTSon 12-06-2023 Glucose [Mass/Vol] 93 mg/dL Normal 70-105 [facility] Comment on above: Order Comment: Waive d Testing in the ED is performed under the ED CLIA certificate #[id number]. Result Comment: [email or web address] Performed By: #### L [id number] #### [facility] (BEAKER) [address] [place] [address] TISSUE CULTUREon 12-06-2023 Bacteria identified Cx Nom (Unsp spec) No growth at 5 days Normal [facility] Comment on above: Order Comment: Pre-o p diagnosis:AVN (avascular necrosis of bone) (CMS/HCC) [M87.00]Primary osteoarthritis of left hip [M16.12] Performed By: #### L [id number] ####[facility] ([facility])[address] [place] [address] GRAM STAIN RESULT Normal [facility] Comment on above: Order Comment: Pre-o p diagnosis:AVN (avascular necrosis of bone) ([facility]) [M87.00]Primary osteoarthritis of left hip [M16.12] Result Comment: Few Polymorphonuclear leukocytes No organisms seen Performed By: #### L [id number] ####[facility] ([facility])[address] [place] [id number] 36on 11-28-2023 36 [facility]. Informed her that Dr Kan would like a letter from PCP stating she can stop Aspirin 1 week prior to surgery. The nurse stated she will message Dr Polo and fax over the order to [phone]. Updated DEBRA Olivier and Dr Kan with this information. Normal [facility] APTTon 11-28-2023 ACTIVATED PARTIAL THROMBOPLASTIN TIME IN PPP BY COAGULATION ASSAY 27.9 Seconds Normal 25.0-35.0 [facility] Comment on above: Result Comment: Clin ical significance of the APTT is questionable in the presence of heparin. Performed By: #### L [id number] #### [facility] ([facility]) [address] [place] [address] BASIC METABOLIC PANELon 11-13 Anion gap [Moles/Vol] 11 mmol/L Normal 7-20 [facility] Comment on above: Performed By: #### L [id number] #### [facility] ([facility]) [address] [place] [address] Calcium [Mass/Vol] 8.9 mg/dL Normal 8.6-10.3 [facility] Comment on above: Performed By: #### L [id number] #### [facility] ([facility]) [address] [place] [address] Chloride [Moles/Vol] 95 mmol/L Low 98-107 [facility] Comment on above: Performed By: #### L [id number] #### [facility] ([facility]) [address] [place] [id number] CO2 [Moles/Vol] 27 mmol/L Normal 21-31 [facility] Comment on above: Performed By: #### L [id number] #### [facility] ([facility]) [address] [place] [address] Creatinine [Mass/Vol] 0.43 mg/dL Low 0.60-1.20 [facility] Comment on above: Performed By: #### L [id number] #### [facility] ([facility]) [address] [place] [address] GLOMERULAR FILTRATION RATE ML/MIN/1.73 SQ M.PREDICTED 105.9 mL/min/1.73m*2 Normal >60.0 [facility] Comment on above: Result Comment: The [facility]???s estimated glomerular filtration rate (eGFR) will no [...] individuals. Performed By: #### L [id number] #### [facility] ([facility]) [address] [place] [address] Glucose [Mass/Vol] 91 mg/dL Normal 70-100 [facility] Comment on above: Performed By: #### L [id number] #### [facility] ([facility]) [address] [place] [address] Potassium [Moles/Vol] 3.9 mmol/L Normal 3.5-5.1 [facility] Comment on above: Performed By: #### L [id number] #### [facility] ([facility]) [address] [place] [address] Sodium [Moles/Vol] 129 mmol/L Low 136-145 [facility] Comment on above: Performed By: #### L [id number] #### [facility] ([facility] [address] [place] [address] Urea nitrogen [Mass/Vol] 9 mg/dL Normal 7-25 [facility] Comment on above: Performed By: #### L [id number] #### [facility] ([facility]) [address] [place] [address] UREA NITROGEN/CREATININE (MASS RATIO) IN SER/PLAS 20.9 Normal [facility] Comment on above: Performed By: #### L [id number] #### [facility] ([facility]) [address] [place] [address] CBC WITH AUTO DIFFERENTIALon 11-28-2023 Basophils (Bld) [#/Vol] 0.06 10*3/uL Normal 0.00-0.20 [facility] Comment on above: Performed By: #### L [id number] #### [facility] ([facility]) [address] [place] [address] Basophils/100 WBC (Bld) 0.6 % Normal 0.0-1.0 [facility] Comment on above: Performed By: #### L [id number] #### [facility] ([facility]) [address] [place] [address] Eosinophils (Bld) [#/Vol] 0.40 10*3/uL Normal 0.00-0.50 [facility] Comment on above: Performed By: #### L [id number] #### [facility] ([facility]) [address] [place] [address] Eosinophils/100 WBC (Bld) 4.2 % Normal 0.0-6.0 [facility] Comment on above: Performed By: #### L [id number] #### [facility] ([facility]) [address] [place] [address] Erythrocyte distribution width (RBC) [Ratio] 14.9 % Normal 11.5-15.0 [facility] Comment on above: Performed By: #### L [id number] #### [facility] ([facility] [address] [place] [address] ERYTHROCYTE MEAN CORPUSCULAR HEMOGLOBIN CONCENTRATION (G/DL) BY AUTOMATED 33.3 g/dL Normal 32.0-35.0 [facility] Comment on above: Performed By: #### L [id number] #### [facility] ([facility]) [address] [place] [address] Hematocrit (Bld) [Volume fraction] 40.5 % Normal 36.0-48.0 [facility] Comment on above: Performed By: #### L [id number] #### [facility] ([facility]) [address] [place] [address] Hemoglobin (Bld) [Mass/Vol] 13.5 g/dL Normal 12.0-15.0 [facility] Comment on above: Performed By: #### L [id number] #### [facility] ([facility]) [address] [place] [address] Immature granulocytes (Bld) [#/Vol] 0.04 10*3/uL Normal 0.00-0.20 [facility] Comment on above: Performed By: #### L [id number] #### [facility] ([facility]) [address] [place] [address] Immature granulocytes/100 WBC (Bld) 0.4 % Normal 0.0-1.0 [facility] Comment on above: Performed By: #### L [id number] #### [facility] ([facility]) [address] [place] [address] Lymphocytes (Bld) [#/Vol] 1.38 10*3/uL Normal 1.20-4.00 [facility] Comment on above: Performed By: #### L [id number] #### [facility] ([facility] [address] [place] [address] Lymphocytes/100 WBC (Bld) 14.4 % Low 20.0-45.0 [facility] Comment on above: Performed By: #### L [id number] #### [facility] (BEAKER) [address] [place] [address] MCH (RBC) [Entitic mass] 29.3 pg Normal 27.0-33.0 [facility] Comment on above: Performed By: #### L [id number] #### [facility] ([facility]) [address] [place] [address] MCV (RBC) [Entitic vol] 87.9 fL Normal 82.0-98.0 [facility] Comment on above: Performed By: #### L [id number] #### [facility] ([facility]) [address] [place] [address] Monocytes (Bld) [#/Vol] 0.87 10*3/uL Normal 0.10-1.00 [facility] Comment on above: Performed By: #### L [id number] #### [facility] ([facility]) [address] [place] [address] Monocytes/100 WBC (Bld) 9.1 % Normal 5.0-12.0 [facility] Comment on above: Performed By: #### L [id number] #### [facility] ([facility]) [address] [place] [address] Neutrophils (Bld) [#/Vol] 6.85 10*3/uL Normal 1.60-7.60 [facility] Comment on above: Performed By: #### L [id number] #### [facility] ([facility] [address] [place] [address] Neutrophils/100 WBC (Bld) 71.3 % Normal 40.0-72.0 [facility] Comment on above: Performed By: #### L [id number] #### [facility] ([facility]) [address] [place] [address] NRBC (PER 100 WBCS) BY AUTOMATED COUNT 0.0 % Normal 0 [facility] Comment on above: Performed By: #### L [id number] #### [facility] (BEAKER) [address] [place] [address] PLATELETS (10*3/UL) IN BLOOD AUTOMATED COUNT 460 10*3/uL High 150-400 [facility] Comment on above: Performed By: #### L [id number] #### [facility] ([facility]) [address] [place] [address] RBC (Bld) [#/Vol] 4.61 10*6/uL Normal 3.80-5.00 [facility] Comment on above: Performed By: #### L [id number] #### [facility] ([facility]) [address] [address] WBC (Bld) [#/Vol] 9.60 10*3/uL Normal 4.00-10.60 [facility] Comment on above: Performed By: #### L [id number] #### [facility] ([facility]) [address] [place] [id number] Consulton 11-28-2023 Consult [id number] Melanie Espinoza 1955 F Date Provider Department [place] 11/28/2023 ERNESTO KAPLAN MP ORTHO MPORTHO Family History Problem Relation Age of Onset Hypertension Mother Stroke Mother Heart attack Father Family Status - Relation Status Age at Mother Father Level of Service:49203 MT OFFICE/OUTPATIENT ESTABLISHED LOW MDM 20 MIN (GC) Reason for Visit and Comments: Pain [136] - PRE-OP L HIP CONVERSION TO L NICOLASA , PATIENT RESIDES AT [facility] HEMOGLOBIN A1Con 11-28-2023 Glucose [Mass/Vol] 108 mg/dL Normal [facility] Comment on above: Order Comment: NO VA RIANT Performed By: #### L [id number] ####[facility] ([facility] [place] [id number] HbA1c (Bld) [Mass fraction] 5.4 % Normal 4.0-6.0 [facility] Comment on above: Order Comment: NO VA RIANT Performed By: #### L [id number] ####[facility] ([facility] [place] [id number] HPon 11-28-2023 HP Orthopedic Surgery Subjective Pain of the Left Hip (PRE-OP L HIP CONVERSION TO L NICOLASA , PATIENT RESIDES AT [facility] ) 11/28/2023 Patient presents today for her preoperative appointment regarding left hip conversion to total hip arthroplasty via anterior approach for 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 Per her primary care physician recommendations she underwent coronary angiogram. This showed mild three-vessel coronary disease and the recommendation for her office copy selector was to be on aspirin, statin, and [...] a note (more content not included)... Normal [facility] Lab 11-28-2023 [facility] [id number] Melanie Espinoza 1955 F Date Provider Department Center 11/28/2023 2244-[facility] MP LAB RESOURCE MP DRAW [facility] Family History Problem Relation Age of Onset Hypertension Mother Stroke Mother Heart attack Father Family Status - Relation Status Age at Mother Father Normal [facility] MRSA/MSSA DNA NASALon 2023 MRSA DNA Negative Normal Negative [facility] Comment on above: Order Comment: Testi ng [...] preclude nasal colonization. Performed By: #### L [id number] ####[facility] (BEAKER)[address] [place] [address] MSSA DNA Negative Normal Negative [facility] Comment on above: Order Comment: Testi ng [...] preclude nasal colonization. Performed By: #### L [id number] ####[facility] (BEAKER)[address] [place] [address] PROTIME-INRon 11-28-2023 INR IN PPP BY COAGULATION ASSAY 0.96 Normal 0.90-1.10 [facility] Comment on above: Result Comment: ACCC P [...] CHEST 1995;[id number]. Performed By: #### L [id number] #### [facility] (AIM) [address] [place] [address] PROTHROMBIN TIME (PT) IN PPP BY COAGULATION ASSAY 12.8 Seconds Normal 12.3-14.8 [facility] Comment on above: Performed By: #### L [id number] #### [facility] (AIM) [address] [place] [address] TYPE AND SCREENon 11-28-2023 AB SCREEN Negative Normal [facility] Comment on above: Order Comment: TYPE AND CROSS 2 UNITS Performed By: #### L [id number] ####[facility], ABO group Nom (Bld) O Normal [facility] Comment on above: Order Comment: TYPE AND CROSS 2 UNITS Performed By: #### L [id number] ####[facility], RH TYPE IN BLOOD Positive Normal [facility] Comment on above: Order Comment: TYPE AND CROSS 2 UNITS Performed By: #### L [id number] ####[facility], URINALYSIS WITH REFLEX CULTU REon 11-28-2023 BILIRUBIN, TOTAL PRESENCE IN URINE Negative Normal Negative [facility] Comment on above: Order Comment: Micro scopics not performed on urines with negative chemical reactions unless requested on original order. Performed By: #### L [id number] #### [facility] ([facility] [address] [place] [address] Clarity (U) Clear Normal Clear [facility] Comment on above: Order Comment: Micro scopics not performed on urines with negative chemical reactions unless requested on original order. Performed By: #### L [id number] #### [facility] (BEAKER) [address] [place] [address] Color (U) Straw Abnormal Yellow [facility] Comment on above: Order Comment: Micro scopics not performed on urines with negative chemical reactions unless requested on original order. Performed By: #### L [id number] #### [facility] ([facility]) [address] [place] [address] Glucose (U) [Mass/Vol] Negative Normal Negative Un [facility] Comment on above: Order Comment: Micro scopics not performed on urines with negative chemical reactions unless requested on original order. Performed By: #### L [id number] #### [facility] ([facility]) [address] [place] [address] HEMOGLOBIN PRESENCE IN URINE Negative Normal Negative [facility] Comment on above: Order Comment: Micro scopics not performed on urines with negative chemical reactions unless requested on original order. Performed By: #### L [id number] #### [facility] ([facility]) [address] [place] [address] Ketones Ql (U) Negative Normal Negative [facility] Comment on above: Order Comment: Micro scopics not performed on urines with negative chemical reactions unless requested on original order. Performed By: #### L [id number] #### [facility] ([facility]) [address] [place] [address] LEUKOCYTE ESTERASE PRESENCE IN URINE BY TEST STRIP Negative Normal Negative [facility] Comment on above: Order Comment: Micro scopics not performed on urines with negative chemical reactions unless requested on original order. Performed By: #### L [id number] #### [facility] ([facility]) [address] [place] [address] NITRITE PRESENCE IN URINE Negative Normal Negative [facility] Comment on above: Order Comment: Micro scopics not performed on urines with negative chemical reactions unless requested on original order. Performed By: #### L [id number] #### [facility] (BEAKER) [address] [place] [address] pH (U) 6.0 [pH] Normal 5.0-8.0 [facility] Comment on above: Order Comment: Micro scopics not performed on urines with negative chemical reactions unless requested on original order. Performed By: #### L [id number] #### [facility] (BEAKER) [address] [place] [address] Protein (U) [Mass/Vol] Negative Normal [facility] above: Order Comment: Micro scopics not performed on urines with negative chemical reactions unless requested on original order. Performed By: #### L [id number] #### [facility] (BEAKER) [address] [place] [address] Specific gravity (U) [Rel density] 1.006 Low 1.015-1.020 [facility] Comment on above: Order Comment: Micro scopics not performed on urines with negative chemical reactions unless requested on original order. Performed By: #### L [id number] #### [facility] (BEAKER) [address] [place] [address] CNOVon 11-12-2023 CNOV Office Visit ([facility]) MELANIE ESPINOZA ([id number]) 1955 F Date Time Provider Department 11/12/23 11:00 AM TAI HINOJOSA NF During your visit today, we recorded the following information about you: Pulse Blood pressure Weight 72/minute 136/80 43.1 kg Tai Hinojosa MD 11/12/2023 11:37 AM Signed November 12, 2023 Tai Hinojosa MD [address] / [address] [address] Esteban Garza MD ([facility]) [address] [place] [address] Melanie Espinoza : 1955 Interval History: Melanie [...] wheelchair - (more content not included)... Normal [facility] 11-04-2023 ANES - Attestation signed by Jessica Wagoner MD at 11/04/2023 1:05 PM Jessica Wagoner MD, MPH, [facility], [facility], [facility] Interventional Cardiology Pager Email: [email or web address] Patient: Melanie Espinoza Procedure Information Date/Time: 11/04/23 1133 Procedure: Coronary angiography; PC Approved - pc approved Location: [facility] TRUST OFFICER 3 / [facility] (Cath) Providers: Jessica Wagoner [...] discussed with attending. Additional Equipment Requests Normal [facility] HPon 11-04-2023 HP - Attestation signed by Jessica Wagoner MD at 11/04/2023 11:34 AM Jessica Wagoner MD, MPH, [facility], [facility], [facility] Interventional Cardiology Pager Email: [email or web address] History Of Present Illness Melanie Espinoza [...] clearance Abnormal cardiovascular stress test Atherosclerosis of [place] coronary artery of [place] heart without angina pectoris CAG +/- PCI. Discussed risks, benefits, and alternatives, she understands and willing to proceed. Batool Fairbanks MD PGY-7 Interventional Technical Designer [facility] NURSNOTEon 11-04-2023 NURSNOTE RN educated pt on d/ c instructions. RN encouraged pt to voice any questions or concerns. Pt verbalizes no questions or concerns at this time. Pt was wheeled off of unit with all of belongings. [facility] NURSNOTE Report given to CHADWICK Trevnio [facility] from [facility] GENAO Any medications or safety alerts were reviewed. Any pending diagnostics and notifications were also reviewed, as well as any safety concerns or issues, abnormal labs, abnormal imagining, and abnormal assessment findings. Questions were answered. [facility] NURSNOTE Attempt x3 calls mad e to get a hold of nurse at [facility] to give report. Message left answering machine and with earthmoving labourer phone number for nurse to call back at her convenience. [facility] Orders Onlyon 10-15-2023 Orders Only [id number] Melanie Espinoza 1955 F Date Provider Department Center 10/15/2023 LILY OTOOLE [facility] Family History Problem Relation Age of Onset Hypertension Mother Stroke Mother Heart attack Father Family Status - Relation Status Age at Mother Father [facility] Abstracton 09-27-2023 Abstract [id number] Melanie Espinoza 1955 Provider Department Center 09/27/2023 Akilah-ASAD KAND [facility] [place] [place] [facility] Family History Problem Relation Age of Onset Hypertension Mother Stroke Mother Heart attack Father Family Status - Relation Status Age at Mother Father [facility] 36on 09-18-2023 36 LMVM TO RETURN MY CALL. IF NURSE CALLS PLEASE FORWARD TO MY LINE.THANKS//MAG [facility] 36 States patient needs more work up from her heart doctor, they would like to know if they need to push out the pre op appt? [facility] Office Visiton 09-18-2023 Follow-up visit [id number] Melanie Espinoza 1955 Provider Department Center 09/18/2023 [id number] JOYA [facility] Family History Problem Relation Age of Onset Hypertension Mother Stroke Mother Heart attack Father Family Status - Relation Status Age at Mother Father Level of Service:75344 MT OFFICE/OUTPATIENT NEW MODERATE MDM 45 MINUTES [facility] XR SHOULDER RT 2V or [...] by: SIMON ANDRADE Date: 2022-06-04 10:57 Normal [facility] CBC AUTO DIFFon 04-19-2022 BASO # 0.0 103/ul Normal 0.0-0.1 [facility] Comment on above: Performed By: #### C BC #### [facility] [address] [address] [address] Miranda Claudio Basophils/100 WBC (Bld) 0.2 % Normal 0.2-2.0 [facility] Comment on above: Performed By: #### C BC #### [facility] [address] [address] [address] Miranda Claudio EO # 0.0 103/ul Normal 0.0-0.7 [facility] Comment on above: Performed By: #### C BC #### [facility] [address] [place] [address] Dr. Miranda Claudio Eosinophils/100 WBC (Bld) 0.4 % Critically low 0.9-7.0 [facility] Comment on above: Performed By: #### C BC #### [facility] [address] [place] [address] Dr. Miranda Claudio Erythrocyte distribution width (RBC) [Ratio] 13.7 % Normal 11.0-15.0 [facility] Comment on above: Performed By: #### C BC #### [facility] [address] [place] [address] Dr. Miranda Claudio Hematocrit (Bld) [Volume fraction] 33.6 % Critically low 36.0-48.0 [facility] Comment on above: Performed By: #### C BC #### [facility] [address] [place] [address] Dr. Miranda Claudio Hemoglobin (Bld) [Mass/Vol] 11.4 g/dL Critically low 12.0-16.0 [facility] Comment on above: Performed By: #### C BC #### [facility] [address] [place] [address] Dr. Miranda Claudio IG # 0.02 10e3/ul Normal 0.00-0.03 [facility] Comment on above: Performed By: #### C BC #### [facility] [address] [place] [address] Dr. Miranda Claudio IG % 0.4 % Normal 0.0-0.5 [facility] Comment on above: Performed By: #### C BC #### [facility] [address] [place] [address] Dr. Miranda Claudio LYMPH # 0.9 103/ul Critically low 1.2-3.8 [facility] Comment on above: Performed By: #### C BC #### [facility] [address] [place] [address] Dr. Miranda Claudio Lymphocytes/100 WBC (Bld) 18.4 % Critically low 20.5-60.0 [facility] Comment on above: Performed By: #### C BC #### [facility] [address] [place] [address] Dr. Miranda Claudio MANUAL DIFF REQ NO Normal [facility] Comment on above: Performed By: #### C BC #### [facility] [address] [place] [address] Dr. Miranda Claudio MCH (RBC) [Entitic mass] 26.5 pg Critically low 26.7-34.0 [facility] Comment on above: Performed By: #### C BC #### [facility] [address] [place] [address] Dr. Miranda Claudio MCHC (RBC) [Mass/Vol] 33.9 g/dL Normal 29.9-35.2 [facility] Comment on above: Performed By: #### C BC #### [facility] [address] [place] [address] Dr. Miranda Claudio MCV (RBC) [Entitic vol] 78.0 fL Critically low 81.0-99. 0 [facility] Comment on above: Performed By: #### C BC #### [facility] [address] [place] [address] Dr. Miranda Claudio MONO # 0.6 103/ul Normal 0.3-0.8 [facility] Comment on above: Performed By: #### C BC #### [facility] [address] [place] [address] Dr. Miranda Claudio Monocytes/100 WBC (Bld) 11.7 % Normal 1.7-12.0 [facility] Comment on above: Performed By: #### C BC #### [facility] [address] [place] [address] Dr. Miranda Claudio NEUT # 3.3 103/ul Normal 1.4-6.5 [facility] Comment on above: Performed By: #### C BC #### [facility] [address] [place] [address] Dr. Miranda Claudio Neutrophils/100 WBC (Bld) 68.9 % Normal 43.0-75.0 [facility] Comment on above: Performed By: #### C BC #### [facility] [address] [place] [address] Dr. Miranda Claudio Platelet mean volume (Bld) [Entitic vol] 8.1 fL Critically low 9.5-13.5 [facility] Comment on above: Performed By: #### C BC #### [facility] [address] [place] [address] Dr. Miranda Claudio PLT 394 103/ul Normal 150-450 [facility] Comment on above: Performed By: #### C BC #### [facility] [address] [place] [address] Dr. Miranda Claudio RBC 4.31 106/ul Normal 4.20-5.40 [facility] Comment on above: Performed By: #### C BC #### [facility] [address] [place] [address] Dr. Miranda Claudio WBC 4.8 103/ul Normal 4.0-11.0 [facility] Comment on above: Performed By: #### C BC #### [facility] [address] [place] [address] Dr. Miranda Claudio PROF 14(COMP METB)on 023 Albumin [Mass/Vol] 2.7 g/dL Critically low 3.4-5.0 [facility] Comment on above: Performed By: #### C MP #### [facility] [address] [place] [address] Dr. Miranda Claudio Albumin/Globulin [Mass ratio] 0.8 {ratio} Normal [facility] Comment on above: Performed By: #### C MP #### [facility] [address] [place] [address] Dr. Miranda Claudio ALP [Catalytic activity/Vol] 64 U/L Normal 46-116 [facility] Comment on above: Performed By: #### C MP #### [facility] [address] [place] [address] Dr. Miranda Claudio ALT [Catalytic activity/Vol] 33 U/L Normal 14-59 [facility] Comment on above: Performed By: #### C MP #### [facility] [address] [address] [address] Miranda Claudio Anion gap [Moles/Vol] 12.1 mmol/L Normal [facility] Comment on above: Performed By: #### C MP #### [facility] [address] [address] [address] Miranda Claudio AST [Catalytic activity/Vol] 64 U/L Critically high 15-37 [facility] Comment on above: Performed By: #### C MP #### [facility] [address] [address] [address] Miranda Claudio Bilirubin [Mass/Vol] 0.2 mg/dL Normal 0.2-1.0 [facility] Comment on above: Performed By: #### C MP #### [facility] [address] [address] [address] Miranda Claudio Calcium [Mass/Vol] 7.9 mg/dL Critically low 8.5-10.1 [facility] Comment on above: Performed By: #### C MP #### [facility] [address] [address] [address] Miranda Claudio Chloride [Moles/Vol] 98 mmol/L Normal 98-107 [facility] Comment on above: Performed By: #### C MP #### [facility] [address] [address] [address] Miranda Claudio CO2 [Moles/Vol] 26.7 mmol/L Normal 21.0-32.0 [facility] Comment on above: Performed By: #### C MP #### [facility] [address] [address] [address] Miranda Claudio Creatinine [Mass/Vol] 0.44 mg/dL Critically low 0.55-1.02 [facility] Comment on above: Performed By: #### C MP #### [facility] [address] [address] [address] Miranda Claudio EGFR-AF [place]LANDER >60 Normal >=60 [facility] Comment on above: Performed By: #### C MP #### [facility] [address] [address] [address] Miranda Claudio EGFR-NON AF [place]ER >60 Normal >=60 [facility] Comment on above: Performed By: #### C MP #### [facility] [address] [address] [address] Miranda Claudio Globulin (S) [Mass/Vol] 3.3 g/dL Normal [facility] Comment on above: Performed By: #### C MP #### [facility] [address] [address] [address] Miranda Claudio Glucose [Mass/Vol] 78 mg/dL Normal 74-106 [facility] Comment on above: Performed By: #### C MP #### [facility] [address] [address] [address] Miranda Claudio Potassium [Moles/Vol] 2.8 mmol/L Critically low 3.5-5.1 [facility] Comment on above: Performed By: #### C MP #### [facility] [address] [address] [address] Miranda Claudio Protein [Mass/Vol] 6.0 g/dL Critically low 6.4-8.2 [facility] Comment on above: Performed By: #### C MP #### [facility] [address] [address] [address] Miranda Claudio Sodium [Moles/Vol] 134 mmol/L Critically low 136-145 [facility] Comment on above: Performed By: #### C MP #### [facility] [address] [address] [address] Miranda Claudio Urea nitrogen [Mass/Vol] 4.0 mg/dL Critically low 7.0-18.0 [facility] Comment on above: Performed By: #### C MP #### [facility] [address] [address] [address] Miranda Claudio Urea nitrogen/Creatinine [Mass ratio] 9.1 mg/mg Normal [facility] Comment on above: Performed By: #### C MP #### [facility] [id number] Miranda Claudio XR CHEST 1 Von [...] CM RAMIREZ Date: 2022-04-19 07:08 Normal [facility] CARDIAC EMMA ADMITon 022 CK [Catalytic activity/Vol] 412 U/L Critically high 26-192 [facility] Comment on above: Performed By: #### Oskar MERCADO CMP ####[facility] [address] [address]Dr. Miranda Claudio CK.MB [Mass/Vol] 19.37 ng/mL Critically high <=3.60 [facility] Comment on above: Performed By: #### Oskar MERCADO CMP ####[facility] [address] [address]Dr. Miranda Claudio HSTROP 5.9 pg/mL Normal 4.0-51.3 [facility] Comment on above: Result Comment: CUT- OFF POINTS HAVE BEEN ESTABLISHED BASED ON THE FOURTH UNIVERSAL DEFINITIONS OF MYOCARDIAL INFARCTION. THE UPPER REFERENCE LIMIT (URL) OF TROPONIN, DEFINED THE 99TH PERCENTILE OF cTnI DISTRIBUTION IN A REFERENCE POPULATION, HAS BEEN CONFIRMED THE DECISION THRESHOLD FOR ID DIAGNOSIS. Performed By: #### Oskar MERCADO CMP ####[facility] [address] [id number] Miranda Claudio MARKEL 82 ng/mL Normal 9-82 [facility] Comment on above: Performed By: #### Oskar MERCADO, CMP ####[facility] [address] [id number][address] Miranda Claudio CBC AUTO DIFFon 03-23-2022 BASO # 0.1 103/ul Normal 0.0-0.1 [facility] Comment on above: Performed By: #### C BC ####[facility] [address] [address]Dr. Miranda Claudio Basophils/100 WBC (Bld) 0.5 % Normal 0.2-2.0 [facility] Comment on above: Performed By: #### C BC ####[facility] [address] [address]Dr. Renettadeon González EO # 0.5 103/ul Normal 0.0-0.7 [facility] Comment on above: Performed By: #### C BC ####[facility] [address] [place], [place] [address]Dr. Miranda González Eosinophils/100 WBC (Bld) 4.1 % Normal 0.9-7.0 [facility] Comment on above: Performed By: #### C BC ####[facility] [address] [place], [place] [address]Dr. Miranda Claudio Erythrocyte distribution width (RBC) [Ratio] 13.9 % Normal 11.0-15.0 [facility] Comment on above: Performed By: #### C BC ####[facility] [address] [place], [place] [address]Dr. Miranda Claudio Hematocrit (Bld) [Volume fraction] 35.1 % Critically low 36.0-48.0 [facility] Comment on above: Performed By: #### C BC ####[facility] [address] [place], [place] [address]Dr. Miranda Claudio Hemoglobin (Bld) [Mass/Vol] 11.7 g/dL Critically low 12.0-16.0 [facility] Comment on above: Performed By: #### C BC ####[facility] [address] [place], [place] [address]Dr. Miranda Claudio IG # 0.05 10e3/ul Critically high 0.00-0.03 [facility] Comment on above: Performed By: #### C BC ####[facility] [address] [address]Dr. Renettadeon Claudio IG % 0.4 % Normal 0.0-0.5 [facility] Comment on above: Performed By: #### C BC ####[facility] [address] [address]Dr. Miranda González LYMPH # 1.5 103/ul Normal 1.2-3.8 [facility] Comment on above: Performed By: #### C BC ####[facility] [address] [address]Dr. Miranda González Lymphocytes/100 WBC (Bld) 12.7 % Critically low 20.5-60.0 [facility] Comment on above: Performed By: #### C BC ####[facility] [address] [place], [place] [address]Dr. Renettadeon Claudio MANUAL DIFF REQ NO Normal [facility] Comment on above: Performed By: #### C BC ####[facility] [address] [address]Dr. Miranda González MCH (RBC) [Entitic mass] 26.1 pg Critically low 26.7-34.0 [facility] Comment on above: Performed By: #### C BC ####[facility] [address] [place], [place] [address]Dr. Miranda Claudio MCHC (RBC) [Mass/Vol] 33.3 g/dL Normal 29.9-35.2 [facility] Comment on above: Performed By: #### C BC ####[facility] [address] [place], [place] [address]DrSofía Miranda González MCV (RBC) [Entitic vol] 78.3 fL Critically low 81.0-99. 0 [facility] Comment on above: Performed By: #### C BC ####[facility] [address] [place], [place] [address]DrSofía Claudio MONO # 1.2 103/ul Critically high 0.3-0.8 [facility] Comment on above: Performed By: #### C BC ####[facility] [address] [place], [place] [address]Dr. Miranda Claudio Monocytes/100 WBC (Bld) 10.5 % Normal 1.7-12.0 [facility] Comment on above: Performed By: #### C BC ####[facility] [address] [id number][address] Miranda Claudio NEUT # 8.3 103/ul Critically high 1.4-6.5 [facility] Comment on above: Performed By: #### C BC ####[facility] [address] [address]Dr. Miranda Claudio Neutrophils/100 WBC (Bld) 71.8 % Normal 43.0-75.0 [facility] Comment on above: Performed By: #### C BC ####[facility] [address] [address]Dr. Miranda Claudio Platelet mean volume (Bld) [Entitic vol] 8.5 fL Critically low 9.5-13.5 [facility] Comment on above: Performed By: #### C BC ####[facility] [address] [address]Dr. Miranda Claudio PLT 349 103/ul Normal 150-450 [facility] Comment on above: Performed By: #### C BC ####[facility] [address] [address]Dr. Miranda Claudio RBC 4.48 106/ul Normal 4.20-5.40 [facility] Comment on above: Performed By: #### C BC ####[facility] [address] [address]Dr. Miranda Claudio WBC 11.6 103/ul Critically high 4.0-11.0 [facility] Comment on above: Performed By: #### C BC ####[facility] [address] [place], [place] [address]Dr. Miranda Claudio Covid-19 PCR (CVDJOSIAH B. [facility])on SARS-CoV-2 (COVID-19) RNA LARY+probe Ql (Unsp spec) Not detected Normal NOT DETECTED [facility] Comment on above: Result Comment: When [...] for this test is supported by the [place] of Health and Human Service's declaration that [...] longer be used). Performed By: #### [facility] #### [facility] [address] [place] [address] Dr. Miranda Claudio ER URINE PROFILEon 2 Bilirubin Ql (U) Negative Normal NEGATIVE [facility] Comment on above: Performed By: #### E RUR #### [facility] [address] [place] [address] Dr. Miranda Claudio Clarity (U) CLEAR Normal CLEAR [facility] Comment on above: Performed By: #### E RUR #### [facility] [address] [place] [address] Dr. Miranda Claudio Color (U) LT. YELLOW Normal YELLOW [facility] Comment on above: Performed By: #### E RUR #### [facility] [address] [place] [address] Dr. Miranda Claudio ERUAHD A micrscopic examination will be performed if indicated. Normal [facility] Comment on above: Performed By: #### E RUR #### [facility] [address] [place] [address] Dr. Miranda Claudio Glucose Ql (U) Negative Normal NEGATIVE [facility] Comment on above: Performed By: #### E RUR #### [facility] [address] [place] [address] Dr. Miranda Claudio Hemoglobin Ql (U) Negative Normal NEGATIVE [facility] Comment on above: Performed By: #### E RUR #### [facility] [address] [place] [address] Dr. Miranda Claudio Ketones Ql (U) Negative Normal NEGATIVE [facility] Comment on above: Performed By: #### E RUR #### [facility] [address] [place] [address] Dr. Miranda Claudio LEUKOCYTES Negative Normal NEGATIVE [facility] Comment on above: Performed By: #### E RUR #### [facility] [address] [place] [address] Dr. Miranda Claudio Nitrite Ql (U) Negative Normal NEGATIVE [facility] Comment on above: Performed By: #### E RUR #### [facility] [address] [place] [address] Dr. Miranda Claudio pH (U) 6.5 [pH] Normal 5-9 [facility] Comment on above: Performed By: #### E RUR #### [facility] [address] [place] [address] Dr. Miranda Claudio SPEC GRAVITY <=1.005 Abnormal 1.005-<=1.02 5 [facility] Comment on above: Performed By: #### E RUR #### [facility] [address] [place] [address] Dr. Miranda Claudio UA PROTEIN Negative Normal NEGATIVE/ TRACE [facility] Comment on above: Performed By: #### E RUR #### [facility] [address] [place] [address] Dr. Miranda Claudio UR MICRO IND NOT INDICATED Normal [facility] Comment on above: Performed By: #### E RUR #### [facility] [address] [place] [address] Dr. Miranda Claudio Urobilinogen Qn (U) 0.2 {Muriel'U}/dL Normal 0.2 - 1. 0 [facility] Comment on above: Performed By: #### E RUR #### [facility] [address] [place] [address] Dr. Miranda Claudio LACTATE/LACTIC ACIDon 2021 Lactate [Moles/Vol] 0.9 mmol/L Normal 0.4-1.9 [facility] Comment on above: Performed By: #### L ACT #### [facility] [address] [place] [address] Dr. Miranda Claudio PROF 14(COMP METB)on 022 Albumin [Mass/Vol] 3.5 g/dL Normal 3.4-5.0 [facility] Comment on above: Performed By: #### C JASWINDERM, CMP #### [facility] [address] [place] [address] Dr. Miranda Claudio Albumin/Globulin [Mass ratio] 1.0 {ratio} Normal [facility] Comment on above: Performed By: #### C JESS, CMP #### [facility] [address] [place] [address] Dr. Miranda Claudio ALP [Catalytic activity/Vol] 73 U/L Normal 46-116 [facility] Comment on above: Performed By: #### C JASWINDERM, CMP #### [facility] [address] [address] [address] Miranda Claudio ALT [Catalytic activity/Vol] 16 U/L Normal 14-59 [facility] Comment on above: Performed By: #### C JESS, CMP #### [facility] [address] [place] [address] Dr. Miranda Claudio Anion gap [Moles/Vol] 14.4 mmol/L Normal [facility] Comment on above: Performed By: #### C JASWINDERM, CMP #### [facility] [address] [place] [address] Dr. Miranda Claudio AST [Catalytic activity/Vol] 26 U/L Normal 15-37 [facility] Comment on above: Performed By: #### C JASWINDERM, CMP #### [facility] [address] [place] [address] Dr. Miranda Claudio Bilirubin [Mass/Vol] 0.2 mg/dL Normal 0.2-1.0 [facility] Comment on above: Performed By: #### C JASWINDERM, CMP #### [facility] [address] [address] [address] Miranda Claudio Calcium [Mass/Vol] 8.3 mg/dL Critically low 8.5-10.1 [facility] Comment on above: Performed By: #### C MADM, CMP #### [facility] [address] [address] [address] Miranda Claudio Chloride [Moles/Vol] 93 mmol/L Critically low 98-107 [facility] Comment on above: Performed By: #### C MADM, CMP #### [facility] [address] [address] [address] Miranda Claudio CO2 [Moles/Vol] 23.5 mmol/L Normal 21.0-32.0 [facility] Comment on above: Performed By: #### C MADM, CMP #### [facility] [address] [address] [address] Miranda Claudio Creatinine [Mass/Vol] 0.54 mg/dL Critically low 0.55-1.02 [facility] Comment on above: Performed By: #### C MADM, CMP #### [facility] [address] [address] [address] Miranda Claudio EGFR-AF [place]LANDER >60 Normal >=60 [facility] Comment on above: Performed By: #### C MADM, CMP #### [facility] [address] [address] [address] Miranda Claudio EGFR-NON AF [place] >60 Normal >=60 [facility] Comment on above: Performed By: #### C MADM, CMP #### [facility] [address] [address] [address] Miranda Claudio Globulin (S) [Mass/Vol] 3.6 g/dL Normal [facility] Comment on above: Performed By: #### C MADM, CMP #### [facility] [address] [address] [address] Miranda Claudio Glucose [Mass/Vol] 91 mg/dL Normal 74-106 [facility] Comment on above: Performed By: #### C MADM, CMP #### [facility] [address] [address] [address] Miranda Claudio Potassium [Moles/Vol] 3.9 mmol/L Normal 3.5-5.1 [facility] Comment on above: Performed By: #### C JASWINDERM, CMP #### [facility] [address] [address] [address] Miranda Claudio Protein [Mass/Vol] 7.1 g/dL Normal 6.4-8.2 [facility] Comment on above: Performed By: #### C JASWINDERM, CMP #### [facility] [address] [address] [address] Miranda Claudio Sodium [Moles/Vol] 127 mmol/L Critically low 136-145 [facility] Comment on above: Performed By: #### C JASWINDERM, CMP #### [facility] [address] [address] [address] Miranda Claudio Urea nitrogen [Mass/Vol] 8.0 mg/dL Normal 7.0-18.0 [facility] Comment on above: Performed By: #### C JESS, CMP #### [facility] [address] [address] [address] Miranda Claudio Urea nitrogen/Creatinine [Mass ratio] 14.8 mg/mg Normal [facility] Comment on above: Performed By: #### C JESS, CMP #### [facility] [address] [address] [address] Miranda Claudio TYPE AND SCREENon 03-23-2022 TYPE AND SCREEN Negative Normal [facility] Comment on above: Performed By: #### T NS ####[facility] [address] [address]Dr. Miranda Claudio NM HEPATOBILIARY SCAN W EFon [...] by: MESHA CARRASCO Date: 2022-02-23 11:03 Normal [facility] CBC AUTO DIFFon 01-27-2022 BASO # 0.1 103/ul Normal 0.0-0.1 [facility] Comment on above: Performed By: #### C BC #### [facility] [address] [place] [address] Dr. Miranda Claudio Basophils/100 WBC (Bld) 0.7 % Normal 0.2-2.0 [facility] Comment on above: Performed By: #### C BC #### [facility] [address] [place] [address] Dr. Miranda Claudio EO # 0.4 103/ul Normal 0.0-0.7 [facility] Comment on above: Performed By: #### C BC #### [facility] [address] [place] [address] Dr. Miranda Claudio Eosinophils/100 WBC (Bld) 4.0 % Normal 0.9-7.0 [facility] Comment on above: Performed By: #### C BC #### [facility] [address] [address] [address] Miranda Claudio Erythrocyte distribution width (RBC) [Ratio] 14.2 % Normal 11.0-15.0 [facility] Comment on above: Performed By: #### C BC #### [facility] [address] [place] [address] Dr. Miranda Claudio Hematocrit (Bld) [Volume fraction] 39.9 % Normal 36.0-48.0 [facility] Comment on above: Performed By: #### C BC #### [facility] [address] [place] [address] Dr. Miranda Claudio Hemoglobin (Bld) [Mass/Vol] 13.0 g/dL Normal 12.0-16.0 [facility] Comment on above: Performed By: #### C BC #### [facility] [address] [place] [address] Dr. Miranda Claudio IG # 0.03 10e3/ul Normal 0.00-0.03 [facility] Comment on above: Performed By: #### C BC #### [facility] [address] [place] [address] Dr. Miranda Claudio IG % 0.3 % Normal 0.0-0.5 [facility] Comment on above: Performed By: #### C BC #### [facility] [address] [place] [address] Dr. Miranda Claudio LYMPH # 2.2 103/ul Normal 1.2-3.8 [facility] Comment on above: Performed By: #### C BC #### [facility] [address] [place] [address] Dr. Miranda Claudio Lymphocytes/100 WBC (Bld) 23.6 % Normal 20.5-60.0 [facility] Comment on above: Performed By: #### C BC #### [facility] [address] [place] [address] Dr. Miranda Claudio MANUAL DIFF REQ NO Normal [facility] Comment on above: Performed By: #### C BC #### [facility] [address] [place] [address] Dr. Miranda Claudio MCH (RBC) [Entitic mass] 27.1 pg Normal 26.7-34.0 [facility] Comment on above: Performed By: #### C BC #### [facility] [address] [place] [address] Dr. Miranda Claudio MCHC (RBC) [Mass/Vol] 32.6 g/dL Normal 29.9-35.2 [facility] Comment on above: Performed By: #### C BC #### [facility] [address] [place] [address] Dr. Miranda Claudio MCV (RBC) [Entitic vol] 83.1 fL Normal 81.0-99.0 [facility] Comment on above: Performed By: #### C BC #### [facility] [address] [place] [address] Dr. Miranda Claudio MONO # 0.8 103/ul Normal 0.3-0.8 [facility] Comment on above: Performed By: #### C BC #### [facility] [address] [place] [address] Dr. Miranda Claudio Monocytes/100 WBC (Bld) 8.5 % Normal 1.7-12.0 [facility] Comment on above: Performed By: #### C BC #### [facility] [address] [place] [address] Dr. Miranda Claudio NEUT # 5.9 103/ul Normal 1.4-6.5 [facility] Comment on above: Performed By: #### C BC #### [facility] [address] [place] [address] Dr. Miranda Claudio Neutrophils/100 WBC (Bld) 62.9 % Normal 43.0-75.0 [facility] Comment on above: Performed By: #### C BC #### [facility] [address] [place] [address] Dr. Miranda Claudio Platelet mean volume (Bld) [Entitic vol] 7.6 fL Critically low 9.5-13.5 [facility] Comment on above: Performed By: #### C BC #### [facility] [address] [place] [address] Dr. Miranda Claudio PLT 405 103/ul Normal 150-450 [facility] Comment on above: Performed By: #### C BC #### [facility] [address] [place] [address] Dr. Miranda Claudio RBC 4.80 106/ul Normal 4.20-5.40 [facility] Comment on above: Performed By: #### C BC #### [facility] [address] [place] [address] Dr. Miranda Claudio WBC 9.4 103/ul Normal 4.0-11.0 [facility] Comment on above: Performed By: #### C BC #### [facility] [address] [address] [address] Miranda Claudio ER URINE PROFILEon 2 Bilirubin Ql (U) Negative Normal NEGATIVE [facility] Comment on above: Performed By: #### U MICRO, ERUR ####[facility] [address] [address]Dr. Miranda Claudio Clarity (U) CLEAR Normal CLEAR [facility] Comment on above: Performed By: #### U MICRO, ERUR ####[facility] [address] [address]Dr. Miranda Claudio Color (U) LT. YELLOW Normal YELLOW [facility] Comment on above: Performed By: #### U MICRO, ERUR ####[facility] [address] [address]Dr. Miranda GARDUNOAHD A micrscopic examination will be performed if indicated. Normal [facility] Comment on above: Performed By: #### U MICRO, ERUR ####[facility] [address] [address]Dr. Miranda Claudio Glucose Ql (U) Negative Normal NEGATIVE [facility] Comment on above: Performed By: #### U MICRO, ERUR ####[facility] [address] [address]Dr. Miranda Claudio Hemoglobin Ql (U) TRACE-LYSED Abnormal NEGATIVE [facility] Comment on above: Performed By: #### U MICRO, ERUR ####[facility] [address] [address]Dr. Miranda Claudio Ketones Ql (U) Negative Normal NEGATIVE [facility] Comment on above: Performed By: #### U MICRO, ERUR ####[facility] [address] [place], [place] [address]Dr. Miranda Claudio LEUKOCYTES Negative Normal NEGATIVE [facility] Comment on above: Performed By: #### U MICRO, ERUR ####[facility] [address] [place], [place] [address]Dr. Miranda Claudio Nitrite Ql (U) Negative Normal NEGATIVE [facility] Comment on above: Performed By: #### U MICRO, ERUR ####[facility] [address] [address]Dr. Miranda Claudio pH (U) 7.0 [pH] Normal 5-9 [facility] Comment on above: Performed By: #### U MICRO, ERUR ####[facility] [address] [address]Dr. Miranda Claudio SPEC GRAVITY <=1.005 Abnormal 1.005-<=1.02 5 [facility] Comment on above: Performed By: #### U MICRO, ERUR ####[facility] [address] [place], [place] [address]Dr. Miranda Claudio UA PROTEIN Negative Normal NEGATIVE/ TRACE [facility] Comment on above: Performed By: #### U MICRO, ERUR ####[facility] [address] [place], [place] [address]Dr. Miranda Claudio UR MICRO IND INDICATED Normal [facility] Comment on above: Performed By: #### U MICRO, ERUR ####[facility] [address] [place], [place] [address]Dr. Miranda Claudio Urobilinogen Qn (U) 0.2 {Muriel'U}/dL Normal 0.2 - 1. 0 [facility] Comment on above: Performed By: #### U MICRO, ERUR ####[facility] [address] [place], [place] [address]Dr. Miarnda Claudio PROF 14(COMP METB)on 022 Albumin [Mass/Vol] 3.5 g/dL Normal 3.4-5.0 [facility] Comment on above: Performed By: #### C MP #### [facility] [address] [place] [address] Dr. Miranda Claudio Albumin/Globulin [Mass ratio] 1.0 {ratio} Normal [facility] Comment on above: Performed By: #### C MP #### [facility] [address] [address] [address] Miranda Claudio ALP [Catalytic activity/Vol] 66 U/L Normal 46-116 [facility] Comment on above: Performed By: #### C MP #### [facility] [address] [address] [address] Miranda Claudio ALT [Catalytic activity/Vol] 15 U/L Normal 14-59 [facility] Comment on above: Performed By: #### C MP #### [facility] [address] [address] [address] Miranda Claudio Anion gap [Moles/Vol] 7.1 mmol/L Normal [facility] Comment on above: Performed By: #### C MP #### [facility] [address] [address] [address] Miranda Claudio AST [Catalytic activity/Vol] 16 U/L Normal 15-37 [facility] Comment on above: Performed By: #### C MP #### [facility] [address] [address] [address] Miranda Claudio Bilirubin [Mass/Vol] 0.1 mg/dL Critically low 0.2-1.0 [facility] Comment on above: Performed By: #### C MP #### [facility] [address] [address] [address] Miranda Claudio Calcium [Mass/Vol] 9.1 mg/dL Normal 8.5-10.1 [facility] Comment on above: Performed By: #### C MP #### [facility] [address] [address] [address] Miranda Claudio Chloride [Moles/Vol] 100 mmol/L Normal 98-107 [facility] Comment on above: Performed By: #### C MP #### [facility] [address] [address] [address] Miranda Claudio CO2 [Moles/Vol] 30.7 mmol/L Normal 21.0-32.0 [facility] Comment on above: Performed By: #### C MP #### [facility] [address] [address] [address] Miranda Claudio Creatinine [Mass/Vol] 0.64 mg/dL Normal 0.55-1.02 [facility] Comment on above: Performed By: #### C MP #### [facility] [address] [address] [address] Miranda Claudio EGFR-AF [place]LANDER >60 Normal >=60 [facility] Comment on above: Performed By: #### C MP #### [facility] [address] [address] [address] Miranda Claudio EGFR-NON AF [place]ER >60 Normal >=60 [facility] Comment on above: Performed By: #### C MP #### [facility] [address] [address] [address] Miranda Claudio Globulin (S) [Mass/Vol] 3.6 g/dL Normal [facility] Comment on above: Performed By: #### C MP #### [facility] [address] [address] [address] Miranda Claudio Glucose [Mass/Vol] 68 mg/dL Critically low 74-106 [facility] Comment on above: Performed By: #### C MP #### [facility] [address] [address] [address] Miranda Claudio Potassium [Moles/Vol] 3.8 mmol/L Normal 3.5-5.1 [facility] Comment on above: Performed By: #### C MP #### [facility] [address] [address] [address] Miranda Claudio Protein [Mass/Vol] 7.1 g/dL Normal 6.4-8.2 [facility] Comment on above: Performed By: #### C MP #### [facility] [address] [address] [address] Miranda Claudio Sodium [Moles/Vol] 134 mmol/L Critically low 136-145 [facility] Comment on above: Performed By: #### C MP #### [facility] [address] [address] [address] Miranda Claudio Urea nitrogen [Mass/Vol] 14.0 mg/dL Normal 7.0-18.0 [facility] Comment on above: Performed By: #### C MP #### [facility] [address] [address] [address] Miranda Claudio Urea nitrogen/Creatinine [Mass ratio] 21.9 mg/mg Normal [facility] Comment on above: Performed By: #### C MP #### [facility] [address] [address] [address] Miranda Claudio URINE MICROSCOPIC ONLYon BACTERIA NONE SEEN Normal NONE SEEN [facility] Comment on above: Performed By: #### U MICRO, ERUR ####[facility] [address] [address]Dr. Miranda Claudio Bacteria identified Cx Nom (U) NOT INDICATED Normal [facility] Comment on above: Performed By: #### U MICRO, ERUR ####[facility] [address] [address]Dr. Miranda Claudio CAST NONE SEEN Normal NONE SEEN [facility] Comment on above: Performed By: #### U MICRO, ERUR ####[facility] [address] [address]Dr. Miranda Claudio Crystals LM Nom (Urine sed) NONE SEEN Normal NONE SEEN [facility] Comment on above: Performed By: #### U MICRO, ERUR ####[facility] [address] [place], [place] [address]Dr. Miranda Claudio Epithelial cells LM Ql (Urine sed) NONE SEEN Normal NONE SEEN /RARE [facility] Comment on above: Performed By: #### U MICRO, ERUR ####[facility] [address] [place], [place] [address]Dr. Miranda Claudio MUCOUS SMALL Abnormal NONE SEEN [facility] Comment on above: Performed By: #### U MICRO, ERUR ####[facility] [address] [place], [place] [address]Dr. Miranda Claudio RBC 0-2 Normal 0-2 [facility] Comment on above: Performed By: #### U MICRO, ERUR ####[facility] [address] [address]Dr. Miranda Claudio WBC NONE SEEN Normal NONE SEEN [facility] Comment on above: Performed By: #### U MICRO, ERUR ####[facility] [address] [place], [place] [address]GzSofía Claudio XR CHEST 1 Von 01-27-2022 XR [...] CM ROBLES Date: 2022-01-27 20:30 Normal [facility] XR SHOULDER RT 2V or >on XR SHOULDER RT 2V or > IMAGES REVIEWED: XR SHOULDER RT 2V or > COMPARISON: 12/27/2021. CLINICAL INDICATION: Pain FINDINGS/IMPRESSION: 1. No evidence of acute osseous abnormality of the right shoulder. 2. 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 3. Old right rib fractures. 4. Osteopenia. Electronically authenticated by: SARAH MOMIN Date: 2022-01-27 20:42 Normal [facility] XR SCAPULA RTon 12-27-2021 XR [...] by: SANTIAGO HELMS Date: 2021-12-27 12:55 Normal [facility] COVID-19 Positive/NegativeOr dered By: Stevenson Corbin on 10-13-2021 SARS-CoV-2 (COVID-19) N gene LARY+probe Ql (Resp) Negative Negative [facility] Comment on above: Testing for SARS-CoV -2 by RT-PCR This test was developed and its performance characteristics determined by [employer] ([place]) and validated at the [facility]. This test has not been FDA [...] a cardiac stand point. Chief Complaint MELANIE ESIPNOZA is being seen for a consultation for [...] 2:31:58 PM (more content not included)... [facility] PHQ-2 VITALSon 09-25-2021 Fall risk assessment a) No falls within the last year [facility] [employer] [address] DO Work Phone: Tobacco use status [facility] b) No M [facility] [employer] [address] DO Work Phone: PHQ-2 VITALS Yes [facility] [employer] [address] DO Work Phone: COVID-19 Positive/NegativeOr dered By: Stevenson Corbin on 09-18-2021 SARS-CoV-2 (COVID-19) N gene LARY+probe Ql (Resp) Negative Negative [facility] Comment on above: Testing for SARS-CoV -2 by RT-PCR This test was developed and its performance characteristics determined by [employer] ([employer] and validated at the [facility]. This test has not been FDA [...] JEFE SAEED Date: 2021-08-22 02:25 Normal [facility] HIP LEFT 1 OR 2 VWS WITH PEL VISon 01-26-2021 HIP LEFT 1 OR 2 VWS WITH PELVIS [facility] Department of Radiology [address] [place] [id number] Patient Name: MELANIE ESPINOZA : 1955 Sex: F Age: Race: White Pt. Location: 84 Patient Status: D Ordered Date: 01/26/2021 1:55:00 [...] report. Electronically signed: Marisela Reveles. Transcribed by: [email or web address], User Resident: ORIANA REILLY Electronically Signed by: MARISELA Candice REVELES @ 01/27/2021 12:26 PM I personally read this/these film(s) with this resident Normal The [facility] Comment on above: Order Comment: Evalu ate HIP LEFT 1 OR 2 VWS WITH PEL VISon 09-15-2020 HIP LEFT 1 OR 2 VWS WITH PELVIS [facility] Department of Radiology [address] [place] [id number] Patient Name: MELANIE ESPINOZA : 1955 [...] Electronically signed: Jose Armando Kwon. Transcribed by: [email or web address], User Resident: Electronically Signed by: JOSE ARMANDO KWON @ 09/15/2020 08:28 PM Normal [facility] Comment on above: Order Comment: evalu ate RAD - Ultrasound Reporton RAD - Ultrasound Report [id number]:[id number] Normal [facility] Ambulatory Clinical Summaryo n 08-30-2020 Ambulatory Clinical Summary {[id number] Normal [facility] Patient Educationon 08-31-19 21 Patient Education Urology Hydronephrosis Hydronephrosis is [...] Follow these instructions at home: ? Take ptvt-uqa-yetcsho and prescription medicines only as told by [...] 01/27/2008 Document Revised: 04/12/2018 Document Reviewed: 04/12/2018 [employer] Patient Education ? 2019 [employer]. [facility] Urology Office/Clinic Noteon 08-30-2020 Urology Office/Clinic [...] Urnls Dip Stick Auto w/o Microscopy POC 99927 I have reviewed the previous health record information and history for this patient from Dr. Go Follow-up With When Contact Information Donavan Bailey MD, Justin Massey, URO Only if needed [facility] [address], [place] [id number]- Additional Instructions: Patient Education Hydronephrosis I, Marion [...] mg= 1 (more content not included)... [facility] Comment on above: Result Comment: Elec tronically Signed By: Donavan Bailey MD, Justin Massey\.br\Date and Time Signed: 08/30/20 13:04 EDT\.br\Electronically Co-Signed By: Marion Gibson MA\.br\Date and Time Co-Signed: 08/30/20 12:36 EDT Reminderson 08-22-2020 Reminders - From: Edilma Godoy To: EU - Clinical; Sent: 08/09/2020 11:42:24 EDT Show up: 08/21/2020 11:42:00 EDT Subject: renal US Reminder/Recall scheduled 08/19/20 at [facility]. patient has f/u scheduled 08/30 for results results scanned in today [facility] Ambulatory Clinical Summaryo n 08-09-2020 Ambulatory Clinical Summary {[id number] [facility] Formson 08-09-2020 Forms [id number] .00CD:127 [facility] Patient Educationon 08-10-19 Patient Education Urology Hydronephrosis Hydronephrosis is the [...] Follow these instructions at home: ? Take tppe-dix-dmtwqgp and prescription medicines only as told by [...] 01/27/2008 Document Revised: 04/12/2018 Document Reviewed: 04/12/2018 Elsevier Patient Education ? 2019 [employer]. [facility] Urology Office/Clinic Noteon 08-09-2020 Urology Office/Clinic Note Chief Complaint New patient here for left sided hydronephrosis HPI Staff New patient Melanie is a 65 y.o. female referred by [facility] for mild [...] Urnls Dip Stick Auto w/o Microscopy POC 14585 US Renal Follow-up With When Contact Information Donavan Bailey MD, Justin Massey, URO [facility] [address] [place] [id number]- Additional Instructions: after renal u/s Patient Education [...] day (at bedtime) (more content not included)... [facility] Comment on above: Result Comment: Elec tronically Signed By: Donavan Bailey MD, Justin Massey\.br\Date and Time Signed: 08/09/20 11:18 EDT\.br\Electronically Co-Signed By: Nadiya Freed MA\.br\Date and Time Co-Signed: 08/09/20 11:07 EDT RAD - CT Reporton 07-12-2020 RAD - CT Report [id number]. 00CD:127 [facility] Consultation Noteon 07-02-19 Consultation Note [id number] .00CD:127 [facility] HIP LEFT 1 OR 2 VWS WITH PEL VISon 06-16-2020 HIP LEFT 1 OR 2 VWS WITH PELVIS [facility] Department of Radiology [address] [place] [id number] Patient Name: MELANIE ESPINOZA : 1955 [...] complication Electronically signed: Willow Stapleton. Transcribed by: [email or web address], User Resident: Electronically Signed by: WILLOW STAPLETON @ 06/17/2020 08:01 AM Normal [facility] Comment on above: Order Comment: Views (X-RAY, HIP): AP Hip, Frogleg Lateral Hip HIP LEFT 1 OR 2 VWS WITH PEL VISon 2020 HIP LEFT 1 OR 2 VWS WITH PELVIS [facility] Department of Radiology [address] [place] [phone] Patient Name: MELANIE ESPINOZA : 1955 Sex: F Age: Race: White Pt. Location: 84 Patient Status: O Ordered Date: 2020 1:25:00 PM Completed Date: 2020 01:30 PM Requesting Provider: HERVE STARKEY Attending Provider: HERVE STARKEY Report Copy To: Signs & Symptoms: M25.552 Pain in left hip I10 History: [place] Comments: Exam: HIP LEFT 1 OR 2 [...] impaction. Electronically signed: Deion Hernandez. Transcribed by: [email or web address], User Resident: Electronically Signed by: DEION HERNANDEZ @ 2020 04:11 PM Normal [facility] HIP LEFT 1 OR 2 VWS WITH PEL VISon 04-14-2020 HIP LEFT 1 OR 2 VWS WITH PELVIS [facility] Department of Radiology [address] [place] [phone] Patient Name: MELANIE ESPINOZA : 1955 [...] fracture. Electronically signed: Antonio Bernal. Transcribed by: [email or web address], User Resident: Electronically Signed by: ANTONIO BERNAL @ 04/14/2020 10:04 AM Normal [facility] Comment on above: Order Comment: Evalu ate Coding Summaryon 01-13-2020 Coding Summary CODING DATE: 01/13/2020 [facility] STATUS: Home PAYOR: Medicaid HMO [...] Nikhil Zamudio Date Saved: 01/13/2020 06:25 pm [facility] Coding Summary CODING DATE: 01/13/2020 [facility] STATUS: Home PAYOR: Medicaid HMO [...] Nikhil Zamudio Date Saved: 01/13/2020 06:24 pm [facility] Coding Summary CODING DATE: 01/13/2020 [facility] STATUS: Home PAYOR: Medicaid HMO [...] Nikhil Zamudio Date Saved: 01/13/2020 06:24 pm [facility] ED Clinical Summaryon 2019 ED Clinical Summary [facility] - Emergency Department [address] [place] [id number] ED Clinical Summary PERSON INFORMATION Name: MELANIE ESPINOZA Age: 64 Years Sex: FEMALE : 1955 MRN: Acct#: Visit Reason: Hernia; ABD PAIN Arrival: 01/09/2020 15:42:54 Discharge: 01/09/2020 16:20:00 LOS: 000 00:38 Check In: 01/09/2020 15:42:54 Checkout:01/09/2020 16:20:00 Address: [place] [id number] PCP: ESTEBAN GARZA PROVIDER INFORMATION Provider Role [...] Hernia Follow-Up: With: Address: When: Calvin Aguilar [address] [place] [address], [address] [place] [id number] [facility] () Within 2 to 4 days Comments: Reviewed [...] kimberly verbalizes understanding of instructions given Comment: [facility] ED Note - Physicianon 2019 ED [...] documented in chart. Surgical history: Esophagogastroduodeno scopy ([id number]) on 01/17/2018 at 62 Years., Reviewed as documented in chart. Family history: No family history items have been selected or recorded., Reviewed as documented in chart. Social history: Social & Psychosocial Habits Tobacco 04/15/2017 Smoking tobacco use: 5-9 cigarettes (between 1 Comment: Smokes 04/16 PDD - 04/15/2017 13:04 - Marlyn Espinoza [...] Impression and Plan Diagnosis Incarcerated ventral hernia ([id number]-OL K43.6, Discharge, Medical) Ventral hernia (MCX07-SC K43.9, Discharge, Medical) Plan Condition: Improved, Stable. [...] on: 01/12/2020 15:09 EDT] Wade Hassan MD [facility] ED Note-Nursingon 01-09-2020 ED Note-Nursing Pt presents to the E D with a hernia. Pt states increased pain in that area. [facility] ED Patient Education Noteon 01-09-2020 ED [...] increase pressure on your hernia. ? Take oyqh-eqd-fmigech and prescription medicines only as told by [...] Document Reviewed: 10/21/2017 Elsevier Patient Education ? 2019 [employer]. Normal [facility] ED Patient Summaryon 020 ED Patient Summary [facility] - Emergency Department [address] [place] [id number] PATIENT DISCHARGE INSTRUCTIONS Patient Information Name: MELANIE ESPINOZA Age: 64 Years Date of : 1955 Reason For Visit: Hernia; ABD PAIN Arrival Time: 01/09/2020 15:42:54 Primary Care Physician: ESTEBAN GARZA Attending Physician: Wade Hassan MD Comment: Visit Diagnosis: Diagnoses This Visit Hernia ([id number]) Incarcerated ventral hernia (K43.6) Ventral hernia (K43.9) Prescription Information: If you have been given a prescription for narcotics, seek immediate medical attention if you have any difficulty breathing or any sudden status changes such as confusion and sleepiness. If you or anyone you know is experiencing suicidal thoughts, mental health, alcohol and/or drug addiction problems; contact the [facility] 05/11 Crisis Hotline -Text 4HIVT xp 441293. If you received any narcotics, sedation, or [...] legal documents With: Address: When: Calvin Aguilar [address] [place] [address], [place] [address] Business (1) Within 2 to [...] you received today in the [facility] Department were for an urgent problem and are not intended as complete care. It is important for you to follow up with a doctor, nurse practitioner, or physician?s speech therapy assistant for ongoing care. If your symptoms [...] so we can reach you if necessary. [facility] Emergency Department has provided you with a complete list of medications post discharge. Please inform your colorman/provider of your visit and for further instruction [...] increase pressure on your hernia. ? Take jnsn-fgc-ilblxgj and prescription medicines only as told by [...] 03/18/2013 Document Revised: 05/14/2018 Document Reviewed: 10/21/2017 [employer] Patient Education ? 2019 [employer]. Viruses or Bacteria What?s got you sick? [...] for Disease Control and Prevention December 2013 [facility] Coding Summaryon 09-24-2019 Coding Summary CODING DATE: 09/24/2019 [facility] STATUS: Home PAYOR: Medicaid HMO [...] Carine Ferraro Date Saved: 09/24/2019 03:29 pm [facility] .Thyroglobulin by SKYLAR LCon 0 09-23-2019 Thyroglobulin by SKYLAR LC 13.6 ng/mL 1.5-38.[address] [facility] Comment on above: Result Comment: According [...] is 0.1 ng/mL Thyroglobulin measured by Fina [place] Immunometric Assay Performed At: [place] [id number] [place], [place] [id number] Bebo Jeter PhD Ph:[phone] Performed By: #### 2 [id number], [id number], [id number], [id number], [id number], [id number] ####[facility] (DEFAULT)[address] [place] [address] Provider Orderson 09-23-2019 Provider Orders [id number] .[id number] Normal [facility] T3 Free LCon 09-23-2019 Triiodothyronine,Free,S mirna LC 2.0 pg/mL 2.0-4.4 [facility] Comment on above: Result Comment: Perf ormed At: [place] [id number] [place], [place] [id number] Bebo Jeter PhD Ph:[phone] Performed By: #### 2 [id number], [id number], [id number], [id number], [id number], [id number] #### [facility] (DEFAULT) [address] [place] [address] Thyroglobulin Reflex Profile LCon 09-23-2019 Thyroglobulin Antibody LC <1.0 0.0-0.9 [facility] Comment on above: Result Comment: Thyr oglobulin Antibody measured by Fina [place] Methodology Performed At: [facility] [address] [place], [place] [id number] Bebo Jeter PhD Ph:[phone] Performed By: #### 2 [id number], [id number], [id number], [id number], [id number], [id number] ####[facility] (DEFAULT)[address] [place] [address] Thyroid Peroxidase (TPO) Ab LCon 09-23-2019 Thyroid Peroxidase (TPO) Ab LC <9 0-34 [facility] Comment on above: Result Comment: Perf ormed At: [facility] [address] [id number] Bebo Jeter PhD Ph:[phone] Performed By: #### 2 [id number], [id number], [id number], [id number], [id number], [id number] #### [facility] (DEFAULT) [address] [place] [address] Free T4on 09-22-2019 Free T4 [Mass/Vol] 0.90 ng/dL Normal 0.61-1.12 [facility] Comment on above: Result Comment: Spec imens that contain high levels of Biotin may cause false high results Performed By: #### 2 [id number], [id number], [id number], [id number], [id number], [id number] #### [facility] (DEFAULT) [address] [place] [address] TSHon 09-22-2019 TSH Qn 2.07 mcIU/mL Normal 0.45-5.33 [facility] Comment on above: Result Comment: Gene ral Population (males and non- females, aged 21-88) 0.45 - 5.33 Females, 1st Trimester 0.05 - 3.70 Females, 2nd Trimester 0.31 - 4.35 Females, 3rd Trimester 0.41 - 5.18 Performed By: #### 2 [id number], [id number], [id number], [id number], [id number], [id number] #### [facility] (DEFAULT) [address] [place] [address] Coding Summaryon 06-18-2019 Coding Summary CODING DATE: 06/18/2019 FINAL [facility] STATUS: Home PAYOR: Medicaid HMO ADMIT [...] Carine Ferraro Date Saved: 06/18/2019 01:32 pm [facility] US Thyroidon 06-17-2019 US Thyroid EXAM: [...] Huntley MD 06/17/19 4:26 pm Technologist: KRISTINA [facility] Provider Orderson 06-16-2019 Provider Orders [id number] [id number] 05-29-2019 Coding Summary CODING DATE: 05/29/2019 [facility] STATUS: Home PAYOR: Medicaid HMO [...] Deb Law Date Saved: 05/29/2019 12:32 pm [facility] Provider Orderson 05-28-2019 Provider Orders [id number] .[id number]R Chest 2 Viewson 0 XR [...] MD 05/27/19 4:03 pm Technologist: Anatoliy SETH [facility] Vital Signs Date Time Vital Sign Value Performing Clinician Facility 11-04-2024 11:35-0400 Body height 160 cm Dionicio Trevizo MD Work Phone: [facility] 11-04-2024 11:35-0400 Body mass index (BMI) [Ratio] 17.71 kg/m2 Dionicio Trevizo MD Work Phone: [facility] 11-04-2024 11:35-0400 Body weight 45.36 kg Dionicio Trevizo MD Work Phone: [facility] 11-04-2024 11:35-0400 Heart rate 62 /min Dionicio Trevizo MD Work Phone: [facility] 11-04-2024 11:35-0400 Respiratory rate 16 /min Dionicio Trevizo MD Work Phone: [facility] 11-04-2024 11:35-0400 SaO2% (BldA) [Mass fraction] 97 % Dionicio Trevizo MD Work Phone: [facility] 10-30-2024 11:06-0400 Body mass index (BMI) [Ratio] 17.75 kg/m2 Alexeyconcepción Pedersonleeann Work Phone: [facility] 10-30-2024 11:06-0400 Body temperature 98.1 [degF] Alexeyconcepción Pedersonleeann [employer] Work Phone: [facility] 10-30-2024 11:06-0400 Body weight 45.45 kg Alexey Furlong DO Work Phone: [facility] 10-30-2024 11:06-0400 Diastolic blood pressure 64 mm[Hg] Alexey Furlong DO Work Phone: [facility] 10-30-2024 11:06-0400 Heart rate 59 /min Alexey Furlong DO Work Phone: [facility] 10-30-2024 11:06-0400 Respiratory rate 20 /min Alexey Furlong DO Work Phone: [facility] 10-30-2024 11:06-0400 SaO2% (BldA) [Mass fraction] 97 % Alexey Furlong DO Work Phone: [facility] 10-30-2024 11:06-0400 Systolic blood pressure 110 mm[Hg] Alexey Furlong DO Work Phone: [facility] 10-09-2024 13:22-0400 Body mass index (BMI) [Ratio] 17.86 kg/m2 Alexey Furlong DO Work Phone: [facility] 10-09-2024 13:22-0400 Body temperature 97.81 [degF] Alexey Furlong DO Work Phone: [facility] 10-09-2024 13:22-0400 Body weight 45.72 kg Alexey Furlong DO Work Phone: [facility] 10-09-2024 13:22-0400 Diastolic blood pressure 60 mm[Hg] Alexey Furlong DO Work Phone: [facility] 10-09-2024 13:22-0400 Heart rate 54 /min Alexey Furlong DO Work Phone: [facility] 10-09-2024 13:22-0400 Respiratory rate 20 /min Alexey Furlong DO Work Phone: [facility] 10-09-2024 13:22-0400 SaO2% (BldA) [Mass fraction] 97 % Alexey Furlong DO Work Phone: [facility] 10-09-2024 13:22-0400 Systolic blood pressure 107 mm[Hg] Alexey Furlong DO Work Phone: [facility] 10-09-2024 09:31-0400 Body mass index (BMI) [Ratio] 17.86 kg/m2 Alexey Furlong DO Work Phone: [facility] 10-09-2024 09:31-0400 Body temperature 97.81 [degF] Alexey Furlong DO Work Phone: [facility] 10-09-2024 09:31-0400 Body weight 45.72 kg Alexey Furlong DO Work Phone: [facility] 10-09-2024 09:31-0400 Diastolic blood pressure 60 mm[Hg] Alexey Furlong DO Work Phone: [facility] 10-09-2024 09:31-0400 Heart rate 54 /min Alexey Furlong DO Work Phone: [facility] 10-09-2024 09:31-0400 Respiratory rate 20 /min Alexey Furlong DO Work Phone: [facility] 10-09-2024 09:31-0400 SaO2% (BldA) [Mass fraction] 97 % Alexey Furlong DO Work Phone: [facility] 10-09-2024 09:31-0400 Systolic blood pressure 107 mm[Hg] Alexey Furlong DO Work Phone: [facility] 09-11-2024 20:01-0400 Body mass index (BMI) [Ratio] 17.82 kg/m2 Alexey Furlong DO Work Phone: [facility] 09-11-2024 20:01-0400 Body temperature 98.1 [degF] Alexey Furlong DO Work Phone: [facility] 09-11-2024 20:01-0400 Body weight 45.63 kg Alexey Furlong DO Work Phone: [facility] [employer] [facility] 09-11-2024 20:01-0400 Diastolic blood pressure 68 mm[Hg] Alexey Furlong DO Work Phone: [facility] 09-11-2024 20:01-0400 Heart rate 72 /min Alexey Furlong DO Work Phone: [facility] 09-11-2024 20:01-0400 Respiratory rate 17 /min Alexey Furlong DO Work Phone: [facility] 09-11-2024 20:01-0400 SaO2% (BldA) [Mass fraction] 97 % Alexey Furlong DO Work Phone: [facility] 09-11-2024 20:01-0400 Systolic blood pressure 130 mm[Hg] Alexey Furlong DO Work Phone: [facility] 08-05-2024 16:40-0400 Body mass index (BMI) [Ratio] 17.93 kg/m2 Alexey Furlong DO Work Phone: [facility] 08-05-2024 16:40-0400 Body temperature 97.9 [degF] Alexey Furlong DO Work Phone: [facility] 08-05-2024 16:40-0400 Body weight 45.9 kg Alexey Furlong DO Work Phone: [facility] 08-05-2024 16:40-0400 Diastolic blood pressure 66 mm[Hg] Alexey Furlong DO Work Phone: [facility] 08-05-2024 16:40-0400 Heart rate 90 /min Alexey Furlong DO Work Phone: [facility] 08-05-2024 16:40-0400 Respiratory rate 18 /min Alexey Furlong DO Work Phone: [facility] 08-05-2024 16:40-0400 SaO2% (BldA) [Mass fraction] 96 % Alexey Furlong DO Work Phone: [facility] 08-05-2024 16:40-0400 Systolic blood pressure 118 mm[Hg] Alexey Furlong DO Work Phone: [facility] 07-02-2024 18:11-0400 Body mass index (BMI) [Ratio] 18.32 kg/m2 Alexey Furlong DO Work Phone: [facility] 07-02-2024 18:11-0400 Body temperature 97.2 [degF] Alexey Furlong DO Work Phone: [facility] 07-02-2024 18:11-0400 Body weight 46.9 kg Alexey Furlong DO Work Phone: [facility] [employer] 07-02-2024 18:11-0400 Diastolic blood pressure 87 mm[Hg] Alexey Furlong DO Work Phone: [facility] 07-02-2024 18:11-0400 Heart rate 68 /min Alexey Furlong DO Work Phone: [facility] 07-02-2024 18:11-0400 Respiratory rate 18 /min Alexey Furlong DO Work Phone: [facility] 07-02-2024 18:11-0400 SaO2% (BldA) [Mass fraction] 96 % Alexey Furlong DO Work Phone: [facility] 07-02-2024 18:11-0400 Systolic blood pressure 140 mm[Hg] Alexey Furlong DO Work Phone: [facility] 05-27-2024 18:54-0500 Body temperature 96.4 [degF] Alexey Furlong DO Work Phone: [facility] 05-27-2024 18:54-0500 Diastolic blood pressure 86 mm[Hg] Alexey Furlong DO Work Phone: [facility] 05-27-2024 18:54-0500 Heart rate 71 /min Alexey Furlong DO Work Phone: [facility] 05-27-2024 18:54-0500 Systolic blood pressure 127 mm[Hg] Alexey Furlong DO Work Phone: [facility] 05-06-2024 11:25-0500 Body height 157.5 cm Dionicio Trevizo MD Work Phone: [facility] 05-06-2024 11:25-0500 Heart rate 69 /min Dionicio Trevizo MD Work Phone: [facility] 05-06-2024 11:25-0500 Respiratory rate 16 /min Dionicio Trevizo MD Work Phone: [facility] 04-17-2024 15:57-0500 Diastolic blood pressure 104 mm[Hg] Alexey Furlong DO Work Phone: [facility] 04-17-2024 15:57-0500 Heart rate 75 /min Alexey Furlong DO Work Phone: [facility] 04-17-2024 15:57-0500 Systolic blood pressure 143 mm[Hg] Alexey Furlong DO Work Phone: [facility] 04-01-2024 18:28-0500 Body mass index (BMI) [Ratio] 16.37 kg/m2 Alexey Furlong DO Work Phone: [facility] 04-01-2024 18:28-0500 Body temperature 98.2 [degF] Alexey Furlong DO Work Phone: [facility] 04-01-2024 18:28-0500 Body weight 41.91 kg Alexey Furlong DO Work Phone: [facility] 04-01-2024 18:28-0500 Diastolic blood pressure 85 mm[Hg] Alexey Furlong DO Work Phone: [facility] 04-01-2024 18:28-0500 Heart rate 82 /min Alexey Furlong DO Work Phone: [facility] 04-01-2024 18:28-0500 Respiratory rate 18 /min Alexey Furlong DO Work Phone: [facility] 04-01-2024 18:28-0500 SaO2% (BldA) [Mass fraction] 95 % Alexey Furlong DO Work Phone: [facility] 04-01-2024 18:28-0500 Systolic blood pressure 159 mm[Hg] Alexey Furlong DO Work Phone: [facility] 02-13-2024 13:49-0400 Body height 160.02 cm DO Alexey Furlong Work Phone: [facility] 02-13-2024 11:54-0400 Body temperature 99.1 [degF] DO Alexey Furlong Work Phone: [facility] 02-13-2024 11:54-0400 Diastolic blood pressure 63 mm[Hg] DO Alexey Furlong Work Phone: [facility] 02-13-2024 11:54-0400 Heart rate 96 /min DO Alexey Furlong Work Phone: [facility] 02-13-2024 11:54-0400 Respiratory rate 16 /min DO Alexey Furlong Work Phone: [facility] 02-13-2024 11:54-0400 SaO2% (BldA) [Mass fraction] 95 % DO Alexey Furlong Work Phone: [facility] 02-13-2024 11:54-0400 Systolic blood pressure 169 mm[Hg] DO Alexey Bglong Work Phone: [facility] 02-12-2024 18:25-0400 Inhaled oxygen flow rate 8 L/min DO Alexey Bglong Work Phone: [facility] 02-12-2024 12:30-0400 Body weight 41.7 kg DO Alexeyconcepción Pedersonlong Work Phone: [facility] 11-12-2023 10:53-0400 Body mass index (BMI) [Ratio] 16.83 kg/m2 Tai Hinojosa MD Work Phone: [facility] 11-12-2023 10:53-0400 Body weight 43.09 kg Tai Hinojosa MD Work Phone: [facility] 11-12-2023 10:53-0400 Diastolic blood pressure 80 mm[Hg] Tai Hinojosa MD Work Phone: [facility] 11-12-2023 10:53-0400 Heart rate 72 /min Tai Hinojosa MD Work Phone: [facility] 11-12-2023 10:53-0400 SaO2% (BldA) [Mass fraction] 93 % Tai Hinojosa MD Work Phone: [facility] 11-12-2023 10:53-0400 Systolic blood pressure 136 mm[Hg] Tai Hinojosa MD Work Phone: [facility] 01-29-2022 12:15-0400 Body height 161.29 cm Stevenson Corbin Other [employer] Other 01-02-2022 08:47-0400 Body weight 49.9 kg Tai Hinojosa MD Work Phone: [facility] 01-02-2022 08:47-0400 Diastolic blood pressure 77 mm[Hg] Tai Hinojosa MD Work Phone: [facility] 01-02-2022 08:47-0400 Heart rate 68 /min Tai Hinojosa MD Work Phone: [facility] 01-02-2022 08:47-0400 SaO2% (BldA) [Mass fraction] 96 % Tai Hinojosa MD Work Phone: [facility] 01-02-2022 08:47-0400 Systolic blood pressure 128 mm[Hg] Tai Hinojosa MD Work Phone: [facility] 12-06-2021 15:00-0400 Body height 161.29 cm Sena Jabier Other [employer] Other 12-06-2021 15:00-0400 Body temperature 98 [degF] Sena Jabier Other [employer] Other 12-06-2021 15:00-0400 Diastolic blood pressure 85 mm[Hg] Sena Jabier Other [employer] Other 12-06-2021 15:00-0400 Respiratory rate 18 /min Sena Jabier Other [employer] Other 12-06-2021 15:00-0400 SaO2% (BldA) [Mass fraction] 96 % Sena Jabier Other [employer] Other 12-06-2021 15:00-0400 Systolic blood pressure 157 mm[Hg] Sena Jabier Other [employer] Other 10-18-2021 12:35-0400 Diastolic blood pressure 58 mm[Hg] MD Stevenson Corbin Work Phone: [facility] 10-18-2021 12:35-0400 Heart rate 64 /min MD Stevenson Corbin Work Phone: [facility] 10-18-2021 12:35-0400 Respiratory rate 16 /min MD Stevenson Corbin Work Phone: [facility] 10-18-2021 12:35-0400 SaO2% (BldA) [Mass fraction] 95 % MD Stevenson Corbin Work Phone: [facility] 10-18-2021 12:35-0400 Systolic blood pressure 146 mm[Hg] MD Stevenson Corbin Work Phone: [facility] 10-18-2021 12:19-0400 Body height 160.02 cm MD Stevenson Corbin Work Phone: [facility] 10-18-2021 12:19-0400 Body mass index (BMI) [Ratio] 18.1 kg/m2 MD Stevenson Corbin Work Phone: [facility] 10-18-2021 12:19-0400 Body weight 46.6 kg MD Stevenson Corbin Work Phone: [facility] 10-18-2021 11:35-0400 Inhaled oxygen flow rate 2 L/min MD Stevenson Corbin Work Phone: [facility] 10-18-2021 10:53-0400 Body temperature 97.1 [degF] MD Stevenson Corbin Work Phone: [facility] 09-25-2021 14:35-0400 Diastolic blood pressure 78 mm[Hg] Alexey G Furlong Work Phone: [facility] [employer] [address] DO Work Phone: 09-25-2021 14:35-0400 Systolic blood pressure 162 mm[Hg] Alexey G Furlong Work Phone: [facility] [employer] 250 DO Work Phone: 09-25-2021 14:32-0400 Body height 160.02 cm Alexey G Furlong Work Phone: [facility] [facility] DO Work Phone: 09-25-2021 14:32-0400 Body mass index (BMI) [Ratio] 18.42 kg/m2 Alexey Pedersonlong Work Phone: [facility] 250 DO Work Phone: 09-25-2021 14:32-0400 Body surface area Derived from formula 1.46 m2 Alexey Garcia Furlong Work Phone: [facility] [address] DO Work Phone: 09-25-2021 14:32-0400 Body weight 47.17 kg Alexey Pedersonlong Work Phone: [facility] [address] DO Work Phone: 09-25-2021 14:32-0400 Diastolic blood pressure 90 mm[Hg] Alexey Pedersonlong Work Phone: [facility] [address] DO Work Phone: 09-25-2021 14:32-0400 Heart rate 83 /min Alexey Pedersonlong Work Phone: [facility] [address] DO Work Phone: 09-25-2021 14:32-0400 Systolic blood pressure 168 mm[Hg] Alexey Garcia Furlong Work Phone: [facility] [facility] DO Work Phone: 09-13-2021 12:08-0400 Body height 160.02 cm MD Stevenson Corbin Work Phone: [facility] 09-13-2021 12:08-0400 Body mass index (BMI) [Ratio] 18.6 kg/m2 MD Stevenson Corbin Work Phone: [facility] 09-13-2021 12:08-0400 Body weight 47.8 kg MD Stevenson Corbin Work Phone: [facility] 05-30-2021 09:45-0500 Body height 161.29 cm Stevenson Olexa Other [employer] Other 05-30-2021 09:45-0500 Body mass index (BMI) [Ratio] 16.39 kg/m2 Stevenson Olexa Other [employer] Other 05-30-2021 09:45-0500 Body weight 42.64 kg Stevenson Olexa Other [employer] Other 03-22-2021 14:00-0500 Body height 161.29 cm Radha Pegueromarybel Other [employer] Other 03-22-2021 14:00-0500 Body mass index (BMI) [Ratio] 16.56 kg/m2 Radha Pegueromarybel Other [employer] Other 03-22-2021 14:00-0500 Body temperature 98.2 [degF] Radha Hiro Other [employer] Other 03-22-2021 14:00-0500 Body weight 43.09 kg Radha Pegueromarybel Other [employer] Other 03-22-2021 14:00-0500 Diastolic blood pressure 60 mm[Hg] Radha Pegueromarybel Other [employer] Other 03-22-2021 14:00-0500 Respiratory rate 18 /min Radha Hiro Other [employer] Other 03-22-2021 14:00-0500 SaO2% (BldA) [Mass fraction] 96 % Radha Pegueromarybel Other [employer] Other 03-22-2021 14:00-0500 Systolic blood pressure 140 mm[Hg] Radha Bosch Other [facility] [employer] Other Encounters Encounter Date Encounter Type Care Provider Facility Start: 11-04-2024 End: 11-04-2024 AppJetheet Dionicio Trevizo MD Work Phone: [facility] Start: 11-04-2024 End: 11-04-2024 [employer] flowsheet Dionicio Trevizo MD Work Phone: [facility] Start: 11-04-2024 End: 11-04-2024 Office outpatient visit 25 minutes Dionicio Trevizo MD Work Phone: [facility] Comment on above: Acquired hypothyroid ism (Primary Dx); Movement disorder Start: 11-04-2024 End: 11-04-2024 ambulatory DIONICIO TREVIZO Not Available Start: 10-30-2024 End: 11-02-2024 Continuing Care Alexeyconcepción Pedersonleeann DO Work Phone: [facility] Comment on above: Closed fracture of t uft of distal phalanx of left ring finger (Primary Dx); Closed fracture of tuft of distal phalanx of left middle finger; Movement disorder; Tardive dyskinesia Start: 10-09-2024 End: 11-01-2024 Continuing Care Alexey Garcia Bgleeann DO Work Phone: [facility] Comment on above: Movement disorder (P rimary Dx); Anxiety; Tardive dyskinesia; SIADH (syndrome of inappropriate ADH production) Primary hypertension (Primary Dx); Anxiety; Tardive dyskinesia; Movement disorder Start: 09-11-2024 End: 09-13-2024 Continuing Care Alexey Jose Pedersonsamanthatresa DO Work Phone: [facility] Comment on above: Tardive dyskinesia ( Primary Dx); Movement disorder; Primary hypertension Start: 08-10-2024 End: 08-10-2024 ambulatory Alexey Furlong DO Work Phone: [facility] Work Phone: Start: 08-10-2024 End: 08-10-2024 Patient encounter procedure Alexey Furlong DO Work Phone: [facility] [address] [facility] Work Phone: Start: 08-10-2024 End: 08-10-2024 Patient encounter procedure Alexey Furlong DO Work Phone: [facility] [place] [facility] Start: 08-10-2024 End: 08-10-2024 ambulatory Alexey Furlong DO Work Phone: [facility] Work Phone: Start: 08-07-2024 End: 08-07-2024 ambulatory [facility] Start: 08-05-2024 End: 08-05-2024 ambulatory Alexey G Furlong DO Work Phone: [facility] Comment on above: Tardive dyskinesia ( Primary Dx); Primary hypertension; S/P reverse total shoulder arthroplasty, right Start: 07-21-2024 End: 07-21-2024 ambulatory Alexey Furlong DO Work Phone: [facility] Work Phone: Start: 07-21-2024 End: 07-21-2024 Patient encounter procedure Alexey Furlong DO Work Phone: [facility] [address] [facility] Work Phone: Start: 07-02-2024 End: 07-02-2024 ambulatory Alexey Furlong DO Work Phone: [facility] Work Phone: Comment on above: Primary hypertension (Primary Dx); Tardive dyskinesia; Primary osteoarthritis of right knee; Iron deficiency anemia, unspecified iron deficiency anemia type; Hyperlipidemia, unspecified hyperlipidemia type; Hypokalemia; SIADH (syndrome of inappropriate ADH production) ([facility] Start: 07-02-2024 End: 07-02-2024 Patient encounter procedure Alexey Furlong DO Work Phone: [facility] [address] [facility] Physician [facility] Work Phone: Start: 07-02-2024 End: 07-02-2024 Patient encounter procedure Alexey Furlong DO Work Phone: [facility] Start: 07-02-2024 End: 07-02-2024 ambulatory Alexey Furlong DO Work Phone: [facility] Work Phone: Start: 06-25-2024 End: 06-25-2024 ambulatory [facility] Start: 06-01-2024 End: 06-01-2024 ambulatory Alexey Furlong DO Work Phone: [facility] Work Phone: Start: 06-01-2024 End: 06-01-2024 Patient encounter procedure Alexey Bglong DO Work Phone: [facility] [address] Phys[facility] Work Phone: Start: 05-27-2024 End: 06-02-2024 ambulatory Alexey G Furlong DO Work Phone: [facility] Comment on above: SIADH (syndrome of i nappropriate ADH production) ([facility]) (Primary Dx); Hyperlipidemia, unspecified hyperlipidemia type; Iron deficiency anemia, unspecified iron deficiency anemia type; Hypo-osmolality and hyponatremia; Hypocalcemia; Hypokalemia Start: 05-06-2024 End: 05-06-2024 Geoffrey Trevizo MD Work Phone: [facility] Start: 05-06-2024 End: 05-06-2024 Geoffrey flowsdelicia Trevizo MD Work Phone: [facility] Start: 05-06-2024 End: 05-06-2024 Office outpatient visit 25 minutes Dionicio Trevizo MD Work Phone: [facility] Comment on above: Acquired hypothyroid ism ([facility]) (Primary Dx); Movement disorder Start: 05-06-2024 End: 05-06-2024 ambulatory DIONICIO TREVIZO Not Available Start: 04-17-2024 End: 04-17-2024 Continuing Care Alexey Garcia Furlong DO Work Phone: [facility] Comment on above: Primary hypertension (Primary Dx); SIADH (syndrome of inappropriate ADH production) ([facility]); Sleep disorder breathing Start: 04-01-2024 End: 04-06-2024 Continuing Care Alexey Garcia Furlong DO Work Phone: [facility] Comment on above: Aftercare following right shoulder joint replacement surgery (Primary Dx); Witnessed apneic spells; Movement disorder Start: 03-31-2024 End: 03-31-2024 Patient encounter procedure Alexey Furlong DO Work Phone: [facility] [address] [facility] Work Phone: Start: 03-31-2024 End: 03-31-2024 ambulatory Nickolas Hawthorne Facility:[facility] Start: 02-24-2024 End: 02-24-2024 ambulatory Alexey Furlong DO Work Phone: [facility] Work Phone: Start: 02-24-2024 End: 02-24-2024 Patient encounter procedure Alexey Furlong DO Work Phone: [facility] [address] [facility] Phys[facility] Work Phone: Start: 02-24-2024 End: 02-24-2024 Patient encounter procedure Alexey Furlong DO Work Phone: [facility] Start: 02-24-2024 End: 02-24-2024 ambulatory Alexey Furlong DO Work Phone: [facility] Work Phone: Start: 02-12-2024 Non-patient / Non-visit DO Den nis Furlong Work Phone: [facility] [address] [facility] Work Phone: Start: 02-12-2024 End: 02-13-2024 Admission to same day surgery center DO Alexey Furlong Work Phone: [facility] Start: 02-12-2024 End: 02-13-2024 ambulatory DO Alexey Furlong Work Phone: [facility] Work Phone: Start: 01-29-2024 End: 01-29-2024 Patient encounter procedure DO Alexey Furlong Work Phone: [facility] Work Phone: Start: 01-29-2024 End: 01-29-2024 ambulatory DO Alexey Furlong Work Phone: [facility] Work Phone: Start: 01-29-2024 End: 01-29-2024 Patient encounter procedure DO Alexey Furlong Work Phone: [facility] Work Phone: Start: 01-29-2024 End: 01-29-2024 ambulatory DO Alexey Furlong Work Phone: [facility] Work Phone: Start: 01-29-2024 Encounter for preprocedural laboratory examination Nickolas Hawthorne [facility] Start: 01-23-2024 End: 01-23-2024 ambulatory DO Alexey Furlong Work Phone: [facility] Work Phone: Start: 01-23-2024 End: 01-23-2024 Patient encounter procedure DO Alexey Pedersonlong Work Phone: [facility] Work Phone: Start: 01-17-2024 End: 01-17-2024 ambulatory [facility] Start: 01-16-2024 End: 01-16-2024 ambulatory [facility] Start: 12-26-2023 ambulatory [facility] Start: 12-25-2023 End: 08-12-2024 Telephone encounter Tai Hinojosa MD Work Phone: Neurology Comment on above: Medication Problem Start: 12-24-2023 Non-patient / Non-visit DO Jose Pedersonlong Work Phone: [facility] Work Phone: Start: 12-07-2023 Evaluation and manag ement of inpatient [facility] Start: 12-06-2023 Evaluation and manag ement of inpatient [facility] Start: 12-06-2023 End: 12-10-2023 Evaluation and management of inpatient [facility] Start: 11-28-2023 Encounter for preprocedural laboratory examination [facility] Start: 11-28-2023 End: 11-28-2023 ambulatory [facility] Start: 11-28-2023 ambulatory [facility] Start: 11-12-2023 End: 11-12-2023 ambulatory ESTEBAN GARZA Facility:[facility] Start: 11-12-2023 End: 11-12-2023 Patient encounter procedure Tai Hinojosa MD Work Phone: Neurology Comment on above: Lingual facial bucca l dyskinesia (Primary Dx); Dyskinesia, tardive Start: 11-04-2023 End: 11-04-2023 ambulatory [facility] Start: 11-04-2023 End: 11-04-2023 Encounter for other preprocedural examination [facility] Start: 09-18-2023 Encounter for other preprocedural examination [facility] Start: 09-18-2023 End: 09-18-2023 ambulatory [facility] Start: 08-26-2023 End: 08-27-2023 [facility] Start: 08-26-2023 End: 08-26-2023 ambulatory ALEXEY Garcia [facility] Start: 08-26-2023 Encounter for preprocedural cardiovascular examination [facility] Start: 06-28-2023 ambulatory No Stearns RN [facility] Comment on above: MARVIN VINES RN ( Medication Adherence review per request of payer) Start: 06-18-2022 Office outpatient vi sit 15 minutes Stevenson Corbin [facility] Start: 06-18-2022 End: 06-18-2022 ambulatory DO Alexey Bgleeann Work Phone: [facility] Work Phone: Start: 06-18-2022 End: 06-18-2022 Patient encounter procedure DO Alexey Bradfordng Work Phone: [facility] Start: 06-04-2022 End: 06-04-2022 ambulatory LENA HAMEED . Facility:[facility] Start: 04-19-2022 End: 04-19-[address] EVA POOLE . Facility:[facility] Start: 03-23-2022 End: 03-23-[address] ERICK BERG . Facility:[facility] Start: 02-23-2022 End: 02-24-[address] ALEXEY POLO Facility:[facility] Start: 01-29-2022 End: 01-29-2022 ambulatory Stevenson Corbin Other [employer] Other Start: 01-29-2022 Office outpatient vi sit 15 minutes Stevenson Olexa [facility] Start: 01-27-2022 End: 01-28-[address] EMMA GO Facility:[facility] Start: 01-02-2022 End: 01-02-2022 Patient encounter procedure Tai Hinojosa MD Work Phone: Neurology Comment on above: Lingual facial bucca l dyskinesia (Primary Dx); Dyskinesia, tardive; Dyskinesia, orofacial; Excessive physiologic tremor Start: 12-27-2021 End: 12-27-[address] ALEXEY POLO Facility:[facility] Start: 12-06-2021 End: 12-06-2021 ambulatory Sena Jabier Other [employer] Other Start: 12-06-2021 Office outpatient vi sit 15 minutes Sena Jabier [facility] Start: 12-04-2021 End: 12-04-2021 ambulatory Tsevenson Olexa Other [employer] Other Start: 12-04-2021 Postop follow up vis it related to original px Stevenson Olexa [facility] Start: 12-04-2021 End: 12-04-2021 Patient encounter procedure MD Stevenson Corbin Work Phone: [facility] Start: 11-01-2021 End: 11-01-2021 ambulatory Stevenson Olexa Other [employer] Other Start: 11-01-2021 Telephone encounter Stevenson Olexa [facility] Start: 10-26-2021 End: 10-26-2021 ambulatory Stevenson Olexa Other [employer] Other Start: 10-26-2021 Postop follow up vis it related to original px Stevenson Olexa [facility] Start: 10-26-2021 End: 10-26-2021 Patient encounter procedure MD Stevenson Corbin Work Phone: [facility] Start: 10-18-2021 End: 10-18-2021 Admission to same day surgery center MD Stevenson Corbin Work Phone: [facility] Start: 10-17-2021 End: 10-17-2021 ambulatory Stevenson Corbin Other [facility] [employer] Other Start: 10-17-2021 Telephone encounter Stevenson Corbin [facility] Start: 10-13-2021 End: 10-13-2021 Patient encounter procedure MD Stevenson Corbin Work Phone: [facility] Start: 10-09-2021 End: 10-09-2021 Patient encounter procedure MD Stevenson Corbin Work Phone: [facility] Start: 09-25-2021 Office consultation new/estab patient 60 min Alexey Polo Work Phone: [facility] 250 DO Work Phone: Start: 09-20-2021 End: 09-20-2021 Departed Referred MD Stevenson Corbin Work Phone: [facility] Start: 09-18-2021 End: 09-18-2021 ambulatory Stevenson Corbin Other [facility] [employer] Other Start: 09-18-2021 Telephone encounter Stevenson Corbin [facility] Start: 09-18-2021 End: 09-18-2021 Patient encounter procedure MD Stevenson Corbin Work Phone: [facility] Start: 08-22-2021 End: 08-22-[address] ALEXEY POLO Facility: Start: 07-12-2021 Telephone encounter Tai johnson MD Work Phone: Neurology Comment on above: Insurance Authorizat ion Start: 06-29-2021 End: 06-30-[address] ALEXEY POLO Facility: Start: 05-30-2021 End: 05-30-2021 ambulatory Stevenson Corbin Other [facility] [employer] Other Start: 05-30-2021 Office outpatient ne w 30 minutes Stevenson Corbin [facility] Start: 03-22-2021 End: 03-22-2021 ambulatory Radha Bosch Other [facility] [employer] Other Start: 03-22-2021 Office outpatient vi sit 15 minutes Radha Bosch [facility] Start: 06-16-2020 End: 06-17-2020 ambulatory HERVE JAKY Facility:[facility] Patient encounter status Alexey Garcia Bgsamanthatresa Work Phone: -[facility] [facility] DO Work Phone: Procedures Date Procedure Procedure Detail Performing Clinician Start: 08-10-2024 Plain X-ray of right shoulder Alexey Furlong DO Work Phone: Start: 07-02-2024 X-ray of left knee, two views Alexey Furlong DO Work Phone: Start: 07-02-2024 X-ray of right knee, four views Alexey Furlong DO Work Phone: Start: 03-31-2024 Plain X-ray of right shoulder Alexey Furlong DO Work Phone: Start: 02-24-2024 Plain X-ray of right shoulder Alexey Furlong DO Work Phone: Start: 02-12-2024 Plain X-ray of left shoulder DO Alexey Furlong Work Phone: Start: 02-12-2024 Aerobic microbial culture Alexey Furlong DO Work Phone: Start: 02-12-2024 Anaerobic microbial culture Alexey Furlong DO Work Phone: Start: 02-12-2024 Gram stain microscopy D uyen Furlong DO Work Phone: Start: 02-12-2024 Investigation of transfusion reaction DO Alexeyconcepción Pedersonlong Work Phone: Start: 02-12-2024 OR Total Shoulder Re verse & Anatomic (Right) DO Alexey Bglong Work Phone: Start: 02-12-2024 Antibody screen Nickolas Eddy elkinsалександр Comment on above: Result Comment: PERF ORMED BY: [facility] [address] [place] [address] PATHOLOGIST PRINTING BINDERY ASSISTANT TAYA CRESPO M.D. Start: 01-29-2024 CT of right shoulder DO Alexey Pedersonlong Work Phone: Start: 01-29-2024 Methicillin resistan t Staphylococcus aureus culture DO Alexey Pedersonlong Work Phone: Start: 01-23-2024 Plain X-ray of right shoulder DO Alexey Pedersonlong Work Phone: Start: 06-18-2022 Plain X-ray of right shoulder DO Alexey Pedersonlong Work Phone: Start: 12-04-2021 Plain X-ray of right shoulder MD Stevenson Corbin Work Phone: Start: 10-26-2021 Plain X-ray of right shoulder MD Stevenson Corbin Work Phone: Start: 10-18-2021 Plain X-ray of right shoulder MD Stevenson Corbin Work Phone: Start: 10-18-2021 Prosthetic total arthroplasty of right shoulder MD Stevenson Corbin Work Phone: Start: 11-15-2020 Colonoscopy Alexey Fur long DO Work Phone: Start: 08-08-2020 Adult depression scr eening assessment Tai Hinojosa MD Work Phone: Operation on rectum Alexey G Furlong Work Phone: Total colonoscopy Alexey G F urlong Work Phone: Plan of Treatment Date Care Activity Detail Author Start: 12-28-2030 DTaP,Tdap and Td Vaccines (3 - Td or Tdap) DTaP,Tdap and Td Vaccines (3 - Td or Tdap) [facility] Start: 12-28-2030 Urine microalbumin profile DTaP,Tdap,Td Vaccine (3 - Td or Tdap) [facility] Start: 11-15-2030 Screening for malignant neoplasm of colon [facility] Start: 2030 RSV Vaccine (1 - 1-dose 75+ series) RSV Vaccine (1 - 1-dose 75+ series) [facility] Start: 10-09-2025 Adult BMI Screening Adult BMI Screening [facility] Start: 09-11-2025 Adult BMI Screening Adult BMI Screening [facility] Start: 08-05-2025 Adult BMI Screening Adult BMI Screening [facility] Start: 07-02-2025 Adult BMI Screening Adult BMI Screening [facility] Start: 05-19-2025 Diabetes Screening Diabetes Screening [facility] Start: 05-05-2025 End: 05-05-2025 Patient encounter procedure 05/05/2025 11:30 AM EST Office Visit [facility] [address] [place] [address] Dionicio Trevizo MD [address] [place] [address] [facility] Start: 04-01-2025 Adult BMI Screening Adult BMI Screening [facility] Start: 03-10-2025 Adult BMI Screening Adult BMI Screening [facility] Start: 12-14-2024 Influenza vaccination [facility] Start: 11-11-2024 End: 11-11-2024 Patient encounter procedure 11/11/2024 2:15 PM EDT Office Visit Neurology [address] [place] [address] Tai Hinojosa MD [address] [place] [address] Follow-up Neurology Comment on above: Follow-up Start: 11-04-2024 End: 11-04-2025 Thyrotropin [Units/volume] in Serum or Plasma TSH Lab Routine Acquired hypothyroidism Expected: 11/04/2024 (Approximate), Expires: 11/04/2025 [facility] Comment on above: Expected: 11/04/2024 (Approximate), Expi res: 11/04/2025 Start: 11-04-2024 End: 11-04-2025 Thyroxine (T4) free [Mass/volume] in Serum or Plasma T4, free Lab Routine Acquired hypothyroidism Expected: 11/04/2024 (Approximate), Expires: 11/04/2025 [facility] Comment on above: Expected: 11/04/2024 (Approximate), Expi res: 11/04/2025 Start: 11-04-2024 End: 11-04-2025 Triiodothyronine (T3) Free [Mass/volume] in Serum or Plasma T3, free Lab Routine Acquired hypothyroidism Expected: 11/04/2024 (Approximate), Expires: 11/04/2025 [facility] Work Phone: Comment on above: Expected: 11/04/2024 (Approximate), Expi res: 11/04/2025 Start: 11-04-2024 End: 11-04-2024 Patient encounter procedure 11/04/2024 11:30 AM EDT Office Visit [facility] [address] [place] [id number] Dionicio Trevizo MD [address] [place] [id number] Arrived [facility] Comment on above: Arrived Start: 09-26-2024 Tobacco Screening Tobacco Screening [facility] Start: 08-10-2024 Plain X-ray of right shoulder XR shoulder RT min 2V* [facility] Start: 08-10-2024 XR Shoulder - right Views [facility] Start: 07-02-2024 X-ray of left knee, two views XR knee LT 2V [facility] Start: 07-02-2024 X-ray of right knee, four views XR knee RT 4V* [facility] Start: 07-02-2024 XR Knee - left 2 Views [facility] Start: 07-02-2024 XR Knee - right 4 Views [facility] Start: 05-15-2024 End: 05-15-2024 Patient encounter procedure 05/15/2024 11:30 AM EST Office Visit Neurology [address] [place] [address] Tai Hinojosa MD [address] [place] [address] [phone] Return in about 6 months (around 05/14/2024). Neurology Comment on above: Return in about 6 months (around 05/14/19 25). Start: 05-06-2024 End: 05-06-2025 Thyrotropin [Units/volume] in Serum or Plasma TSH Lab Routine Acquired hypothyroidism (CMS/HCC) Expected: 05/06/2024 (Approximate), Expires: 05/06/2025 [facility] Comment on above: Expected: 05/06/2024 (Approximate), Expi res: 05/06/2025 Start: 05-06-2024 End: 05-06-2025 Thyroxine (T4) free [Mass/volume] in Serum or Plasma T4, free Lab Routine Acquired hypothyroidism (CMS/HCC) Expected: 05/06/2024 (Approximate), Expires: 05/06/2025 [facility] Comment on above: Expected: 05/06/2024 (Approximate), Expi res: 05/06/2025 Start: 05-06-2024 End: 05-06-2025 Triiodothyronine (T3) Free [Mass/volume] in Serum or Plasma T3, free Lab Routine Acquired hypothyroidism (CMS/HCC) Expected: 05/06/2024 (Approximate), Expires: 05/06/2025 [facility] Work Phone: Comment on above: Expected: 05/06/2024 (Approximate), Expi res: 05/06/2025 Start: 05-06-2024 End: 05-06-2024 Patient encounter procedure 05/06/2024 11:10 AM EST Office Visit [facility] [address] [place] [id number] Dionicio Trevizo MD [address] [place] [address] Arrived [facility] Comment on above: Arrived Start: 04-15-2024 Advance Directive Discussion Advance Directive Discussion [facility] Start: 02-24-2024 Plain X-ray of right shoulder XR shoulder RT min 2V* [facility] Start: 02-24-2024 XR Shoulder - right Views [facility] Start: 02-13-2024 [facility] Start: 02-13-2024 Administration of prophylactic treatment [facility] Start: 02-12-2024 Hospital admission [facility] Start: 02-12-2024 Microbial culture, body fluid [facility] Start: 01-29-2024 MRSA Culture MRSA Culture [facility] Start: 01-23-2024 Plain X-ray of right shoulder XR shoulder RT min 2V* [facility] Start: 01-23-2024 XR Shoulder - right Views [facility] Start: 12-26-2023 Pneumococcal Vaccine: 50+ (3 of 3 - PCV20 or PCV21) Pneumococcal Vaccine: 50+ (3 of 3 - PCV20 or PCV21) [facility] Start: 12-26-2023 Pneumococcal Vaccine: 65+ (3 of 3 - PPSV23 or PCV20) Pneumococcal Vaccine: 65+ (3 of 3 - PPSV23 or PCV20) [facility] Start: 12-26-2023 Pneumococcal Vaccine: 65+ Years (3 of 3 - PCV20 or PCV21) Pneumococcal Vaccine: 65+ Years (3 of 3 - PCV20 or PCV21) [facility] Start: 12-26-2023 Pneumococcal Vaccine: 65+ Years (3 of 3 - PPSV23 or PCV20) Pneumococcal Vaccine: 65+ Years (3 of 3 - PPSV23 or PCV20) [facility] Start: 12-15-2023 COVID-19 Vaccine ( season) COVID-19 Vaccine ( season) [facility] Start: 12-15-2023 Influenza vaccination [facility] Start: 04-15-2023 Advance Directive Discussion Advance Directive Discussion [facility] Start: 04-15-2023 Depression Assessment Depression Assessment [facility] Start: 12-14-2022 Covid-19 Vaccine ( season) Covid-19 Vaccine () [facility] Start: 12-14-2022 Covid-19 Vaccine ( season) Covid-19 Vaccine () [facility] Start: 12-14-2022 Influenza vaccination Influenza Vaccine (#[facility]) [facility] Start: 12-14-2021 Influenza vaccination INFLUENZA (#1) [facility] Start: 12-04-2021 Plain X-ray of right shoulder XR shoulder RT min 2V* [facility] Start: 12-04-2021 End: 12-04-2021 Patient encounter procedure Departed Clinical [facility] Start: 10-18-2021 End: 10-18-2021 [facility] Work Phone: Start: 09-20-2021 Prosthetic total arthroplasty of right shoulder OR Shoulder Arthroplasty-Total (Right) [facility] Start: 08-08-2021 Adult depression screening assessment DEPRESSION SCREENING [facility] Start: 04-15-2021 ADVANCE DIRECTIVE DISCUSSION ADVANCE DIRECTIVE DISCUSSION [facility] Start: 2020 BONE DENSITY BONE DENSITY [facility] Start: 2020 Fall Risk Screening Fall Risk Screening [facility] Start: 2020 PNEUMOCOCCAL: 65+ (1 - PCV) PNEUMOCOCCAL: 65+ (1 - PCV) [facility] Start: 2020 Screening for osteoporosis Bone Density Screening [facility] Start: 2015 RSV Vaccine (1 - 1-dose 60+ series) RSV Vaccine (1 - 1-dose 60+ series) [facility] Start: 2005 SHINGRIX VACCINE (1 of 2) SHINGRIX VACCINE (1 of 2) [facility] Start: 2000 COLOGUARD (FIT-DNA) COLOGUARD (FIT-DNA) [facility] Start: 2000 Colonoscopy COLONOSCOPY [facility] Start: 2000 COLORECTAL CANCER SCREENING COLORECTAL CANCER SCREENING [facility] Start: [address] COLONOGRAPHY [facility] Start: 2000 DIABETES SCREEN DIABETES SCREEN [facility] Start: 2000 FECAL OCCULT BLOOD FECAL OCCULT BLOOD [facility] Start: 2000 Lipid panel Lipid Screening [facility] Start: 2000 LIPID SCREEN LIPID SCREEN [facility] Start: 2000 Screening for malignant neoplasm of colon [facility] Start: 2000 SIGMOIDOSCOPY SIGMOIDOSCOPY [facility] Start: 1995 Mammography MAMMOGRAM [facility] Start: 1995 Screening for malignant neoplasm of breast [facility] Start: 1974 Urine microalbumin profile DTAP,TDAP,TD (1 - Tdap) [facility] Start: 1973 Adult BMI Follow Up Plan Adult BMI Follow Up Plan [facility] Start: 1973 Anxiety Screening Anxiety Screening [facility] Start: 1973 Depression Screening Depression Screening [facility] Start: 1973 HEPATITIS C SCREENING HEPATITIS C SCREENING [facility] Start: 1973 Hepatitis C screening Hepatitis C Screening [facility] Start: 1967 Depression Screening Depression Screening [facility] Start: 1955 COVID-19 VACCINE (#1) COVID-19 VACCINE (#1) [facility] Start: 1955 Medicare Annual Wellness (AWV) Medicare Annual Wellness (AWV) [facility] Start: 1955 Screening for malignant neoplasm of colon [facility] CT Shoulder - right WO contrast [facility] Methicillin resistan t Staphylococcus aureus [Presence] in Unspecified specimen by Organism specific culture [facility] Patient Education Know your Meds [place] Work Phone: [facility] Immunizations Immunization Date Immunization Notes Care Provider Venkat askew 09-27-2022 Covid-19, Mrna, Lnp- s, Bivalent, Pf, 30mcg/0.3 ml Alexey Furlong DO Work Phone: [facility] 11-29-2021 COVID-19, mRNA, LNP- S, PF, 100mcg/0.5mL Dose Alexey Furlong DO Work Phone: [facility] [employer] 03-26-2021 Pfizer-BioNTech COVID-19 Vacc 30 MCG/0.3ML Intramuscular Suspension Alexey Polo Work Phone: [facility] 01-10-2021 Fluzone High-Dose Quadrivalent 0.7 ML Intramuscular Suspension Prefilled Syringe Alexey Polo Work Phone: [facility] 01-10-2021 influenza virus vaccine, unspecified formulation No Stearns RN [facility] 12-28-2020 diphtheria, tetanus toxoids and pertussis vaccine Alexey Polo Work Phone: [facility] 07-14-2020 Pfizer-BioNTech COVID-19 Vacc 30 MCG/0.3ML Intramuscular Suspension Alexey Polo Work Phone: [facility] 06-28-2020 tetanus toxoid, redu anne diphtheria toxoid, and acellular pertussis vaccine, adsorbed Alexey Polo Work Phone: [facility] 06-23-2020 Pfizer-AboutOur[employer]NTech COVID-19 Vacc 30 MCG/0.3ML Intramuscular Suspension Alexey Polo Work Phone: [facility] 04-11-2020 zoster vaccine recombinant oN Stearns RN [facility] 12-19-2019 influenza, injectabl e, quadrivalent, preservative free Alexey Polo Work Phone: [facility] 12-15-2019 influenza, seasonal, injectable No Stearns RN [facility] 10-28-2019 zoster vaccine recombinant Alexey Polo Work Phone: [facility] 02-25-2019 zoster vaccine recombinant Alexey Polo Work Phone: [facility] 12-25-2018 influenza, injectabl e, quadrivalent, preservative free Alexey Polo Work Phone: [facility] 12-25-2018 pneumococcal conjuga te vaccine, 13 valent Alexey Polo Work Phone: [facility] 12-20-2017 influenza, injectabl e, quadrivalent, preservative free Alexey G Furlong Work Phone: [facility] 12-14-2016 influenza virus vaccine, unspecified formulation Alexey Furlong DO Work Phone: [facility] 12-14-2016 influenza, injectabl e, quadrivalent, preservative free Alexey G Furlong Work Phone: [facility] 11-20-2015 influenza, seasonal, injectable, preservative free Alexey G Furlong Work Phone: [facility] 11-20-2015 pneumococcal polysaccharide vaccine, 23 valent Alexey G Furlong Work Phone: [facility] 11-20-2015 zoster vaccine, live Alexey G Furlong Work Phone: [facility] 12-31-2014 influenza, seasonal, injectable, preservative free Alexey G Furlong Work Phone: [facility] NEGATED: Highlighted row has not occurred!05-19-2022 pneumococcal polysaccharide vaccine, 23 valent Alexey Furlong DO Work Phone: [facility] Payers Date Payer Category Payer Self-pay [id number] 2023 Medicare HMO [employer] [id number] 2022 Medicare (Managed Care) [id number] 2022 Medicare [id number] 2020 Medicare [id number]. [id number] 2013 Medicaid [id number]. [id number] 1959 Medicaid [id number] 1959 Medicare [id number] 1955 Unknown [id number] 2.16.840.1.864182.3.579. 2.647 1955 Unknown [id number] 2.16.840.1.209958.3.579. 2.593 1955 Unknown [id number] 2.16.840.1.024525.3.579. 2.593 1955 Unknown [id number] 2.16.840.1.787357.3.579. 2.593 1955 Unknown [id number] 2.16.840.1.561116.3.579. 2.593 1955 Unknown [id number] 2.16.840.1.985712.3.579. 2.593 1955 Unknown [id number] 2.16.840.1.175807.3.579. 2.593 1955 Unknown [id number] 2.16.840.1.535442.3.579. 2.593 1955 Unknown [id number] 2.16.840.1.908100.3.579. 2.593 1955 Unknown [id number] 2.16.840.1.214296.3.579. 2.1286 1955 Unknown [id number] 2.16.840.1.306150.3.579. 2.1286 1955 Unknown [id number] 2.16.840.1.250423.3.579. 2.1286 1955 Unknown [id number] 2.16.840.1.190178.3.579. 2.1286 1955 Unknown [id number] 2.16.840.1.199139.3.579. 2.1259 1955 Unknown [id number] 2.16.840.1.219078.3.579. 2.1259 Unknown Unknown [id number] 2.16.840.1.139012.3.579. 2.531 Unknown [id number] 2.16.840.1.350965.3.579. 2.531 Unknown [id number] 2.16.840.1.391489.3.579. 2.531 Unknown [id number] 2.16.840.1.910695.3.579. 2.531 Unknown [id number] 2.16.840.1.772509.3.579. 2.531 Unknown [id number] 2.16.840.1.937207.3.579. 2.531 Unknown [id number] 2.16.840.1.782914.3.579. 2.531 Unknown [id number] 2.16.840.1.612015.3.579. 2.531 Social History Date Type Detail Facility Start: 07-21-2018 End: 2020 Daily caffeine consumption Daily caffeine consumption [facility] Work Phone: Comment on above: 1-2 cups of coffee d aily. Occas iced tea. Diet coke ocassional; Quit in ; Start: 07-21-2018 End: 2020 Sex Assigned At [facility] Work Phone: Start: 10-18-2021 End: 02-18-2023 Tobacco smoking status NHIS Ex-smoker (finding) [facility] Start: 1955 Sex Assigned At Female F [facility] Start: 04-15-1971 End: 07-21-2017 History of tobacco use Current smoker [facility] Start: 04-15-1971 End: 07-21-2017 History of tobacco use Cigarette Smoker [facility] Start: 07-21-2018 End: 02-18-2023 Tobacco use and exposure Smokeless tobacco non-user [facility] Start: 08-10-2020 End: 11-12-2023 Alcohol intake Lifetime non-drinker (finding) [facility] Start: 07-21-2018 History SDOH Alcohol Frequency 1 [facility] Start: 1955 Sex Assigned At Not on file [facility] Start: 12-23-2021 End: 01-02-2022 Exposure to SARS-CoV-2 (event) Not sure [facility] History of tobacco use Passive smoker [facility] How often to you hav e a drink containing alcohol? Never [facility] Work Phone: Average Number of Drinks Not on file [facility] Start: 11-18-2014 End: 02-24-2024 Sex Female (finding) [facility] Start: 09-27-2023 Alcoholic beverage intake Current non-drinker of alcohol (finding) [facility] Start: 03-23-2022 Tobacco Comment Quit in the 'S, STARTED AGE 18 [employer] [facility] consumption unknown [facility] Medical Equipment Procedure Code Equipment Code Equipment Origin al Text Equipment Identifier Dates Arthroplasty, shoulder, total Total reverse shoulder prosthesis [id number] [id number])21.020 99 FDA Start: 10-18-2021 Arthroplasty, shoulder, total Total reverse shoulder prosthesis ()[id number] [id number] FDA Start: 10-18-2021 Arthroplasty, shoulder, total Total reverse shoulder prosthesis ()[id number] [id number])21.024 83 FDA Start: 10-18-2021 Arthroplasty, shoulder, total Total reverse shoulder prosthesis ()[id number]( 17)[id number])21.007 57 FDA Start: 10-18-2021 Arthroplasty, shoulder, total Total reverse shoulder prosthesis ()[id number]( 17)[id number](10)21.024 16 FDA Start: 10-18-2021 Arthroplasty, shoulder, total Total reverse shoulder prosthesis ()[id number] [id number] FDA Start: 10-18-2021 Arthroplasty, shoulder, total Total reverse shoulder prosthesis [id number] [id number] FDA Start: 10-18-2021 Arthroplasty, shoulder, total Total reverse shoulder prosthesis ()[id number] [id number] FDA Start: 10-18-2021 Arthroplasty, shoulder, total Total reverse shoulder prosthesis ([id number] [id number] FDA Start: 10-18-2021 Arthroplasty, shoulder, total Total reverse shoulder prosthesis ([id number]( 17)[id number] FDA Start: 10-18-2021 Total reverse shoulder prosthesis [id number] [id number] FDA Start: 02-12-2024 Total reverse shoulder prosthesis ([id number]( [id number])22.040 47 FDA Start: 02-12-2024 Total reverse shoulder prosthesis ([id number]( 17)[id number])23.020 74 FDA Start: 02-12-2024 Mesh Pco Vntrl P tch 4.6cm Rpl [id number] - Sna - [id number] Start: 01-29-2020 Goals Date Patient Goal [...] Evaluation of progress towards goal: return to [facility] Functional Status Date Assessment Result Facility 02-13-2024 Functional status Patient Not at Baseline [facility] Work Phone: Mental Status Date Assessment Result Facility 02-13-2024 Cognitive function Cognitive Sta tus Patient Not at Baseline [facility] Work Phone: Clinical Notes 03-22-2021 to 11-04-2024 Dionicio Trevizo MD - 11/04/2024 11:30 AM EDDuy Jose Pedersonsamanthatresa, DO - 10/30/2024 11:59 PM EDDuy Jose Pedersonsamanthatresa, DO - 10/09/2024 11:59 PM EDDuy Polo, DO - 10/09/2024 11:59 PM EDT Note Date & Type Note Facility 11-04-2024 History of Present illness Narrative Melanie Espinoza is a 69 y.o. female No ref. provider found presents with chief complaint of Thyroid Problem and Follow-up HPI: Interim History: 10/2024 Follow-up visit of 11/04/2024 for hypothyroidism. on levothyroxine mcg daily, lives in [place]. TSH 3.6, free T4 0.84 ( 0.6-1.6), free T3 2.1 ( 1.58-3.91) Interim History: 04/2024 Follow-up visit of 05/06/2024 for hypothyroidism. on levothyroxine mcg daily, lives in [place]. Interim History: 10/2023 Follow-up visit of 10/23/2023 for hypothyroidism. on levothyroxine 100 mcg daily by ER team on PCP ?, lives in [place]. lab on 09/2023 TSH 1.85, FT4 0.93, T3 0.65 (0.8-1.8) Interim History: 09/2022. Follow-up visit of 09/28/2022 for hypothyroidism. on levothyroxine 75 mcg daily, lives in [place]. Interim History: 09/2021. Follow-up visit of 10/06/2021 for hypothyroidism. on levothyroxine 75 mcg daily, lives in [place] , no new lab Interim History: 04/2021. Follow-up visit of 04/24/2020 for hypothyroidism. T3 0.75 (0.6-1.8) free T4 0.86(0.78- 1.48), and TSH 1.356. on levothyroxine 75 mcg daily, now live in [place] Interim History: 04/2020. Follow-up visit of 01/18/201 for hypothyroidism. free T3 at 2.77 (2.77-5.27) [...] unsteady. She is following with neurologist in [facility] for that. Lab done on June 08; TSH is overcorrected at1.35, free T4 normal 0.89 (0.78-219), and free T3 at 2.57 (2.77-5.27) SUBJECTIVE: MEDICATIONS: Current Outpatient Medications Medication Instructions alendronate (FOSAMAX) 70 mg, Weekly amantadine (SYMMETREL) 100 mg, 2 times daily amLODIPine (Norvasc) 10 MG tablet 1 tablet, Daily aspirin 81 mg, Daily atorvastatin (Lipitor) 40 MG tablet 1 tablet, Every evening Austedo XR 30 mg, Oral, Daily busPIRone (BUSPAR) 15 mg, 2 times daily calcium carbonate 600 mg, Daily RT carBAMazepine (TEGRETOL) 200 mg, 3 times daily celecoxib (CELEBREX) 100 mg, 2 times daily clonazePAM (KlonoPIN) 0.5 MG tablet 1-2 tablets, Nightly ferrous sulfate 325 mg, Daily with breakfast fluticasone (Flonase) 50 MCG/ACT nasal spray 1 spray, Each Nostril, Daily, Shake gently. Before first use, prime pump. After use, clean tip and replace cap. gabapentin (Neurontin) 300 MG capsule 1 capsule, 2 times daily gabapentin (NEURONTIN) 600 mg, Oral, Nightly levothyroxine (Synthroid) 75 MCG tablet 1 tablet, [...] Medical History: Diagnosis Date Anxiety Partha's disease Hypothyroidism Movement disorder Tremor Weight loss Past Surgical History: Procedure Laterality Date CT ANGIOGRAM HEART CORONARY 12/23/2020 CT ANGIOGRAM TAVR 12/23/2020 REVIEW OF SYMPTOMS: 14 POINT OF SYSTEM REVIEWED AND NEGATIVE OBJECTIVE: Visit Vitals Pulse 62 Resp 16 Ht 5' 3 Wt 100 lb SpO2 97% BMI 17.71 kg/m BSA 1.42 m Physical Exam Constitutional: Appearance: Normal appearance. [...] all orders for this visit: Acquired hypothyroidism - T3, free; Future - T4, free; Future - TSH; Future We will continue with levothyroxine 75 mcg daily. Movement disorder To follow with her neurologist Follow up in about 6 months (around 05/07/2025). documented in this encounter [facility] 10-30-2024 History of Present illness Narrative Patient Name: Melanie Espinoza Date of : 1955 Date of Service: 10/30/2024 Facility: [facility] Type of Visit: Acute Visit Subjective Melanie Espinoza is a 69 y.o. female [facility] for problem and monthly visit. Melanie was wheeling herself in the hallway and uses the door frames to pull herself along and had her hand in a doorframe and the door was closed on the 3rd and 4th digits of her left hand. An x-ray showed zack fractures. There was no nailbed injury or open areas. A splint was placed. It is painful and she is taking tylenol and it is effective for her. Allergies: Erythromycin and Clarithromycin Code Status: [facility] BP 110/64 Pulse 59 Temp 36.7 C (98.1 F) Resp 20 Wt 45.5 kg (100 lb 3.2 oz) SpO2 97% BMI 17.75 kg/m Physical Exam Vitals reviewed. HENT: Head: Normocephalic. Cardiovascular: Rate and Rhythm: Normal rate and regular rhythm. Pulses: Normal pulses. Heart sounds: Normal heart sounds. No murmur heard. Pulmonary: Effort: Pulmonary effort is normal. No respiratory distress. Breath sounds: Normal breath sounds. No wheezing or rhonchi. Musculoskeletal: Left hand: Swelling, tenderness and bony tenderness present. No deformity or lacerations. Decreased range of motion. Comments: 3rd and 4th distal phalanxes Skin: Comments: No subungual hematoma or laceration Neurological: General: No focal deficit present. Mental Status: She is alert and oriented to person, place, and time. Psychiatric: Attention and Perception: Attention normal. Mood and Affect: Mood and affect normal. Speech: Speech normal. Behavior: Behavior normal. Thought Content: Thought content normal. Cognition and Memory: Cognition normal. Judgment: Judgment normal. Assessment/Plan Summary / Assessment / Plan 1. Closed fracture of tuft of distal phalanx of left ring finger 2. Closed fracture of tuft of distal phalanx of left middle finger 3. Movement disorder 4. Tardive dyskinesia She has Zack fractures of 3rd and 4th digits. Discussed splinting and checking xrays here or sending to ortho for consult. She would like to stay here and monitor with x-rays and avoid surgery if possible. Continue other orders as dir. All medicatioins reviewed and are medically necessary. ELECTRONICALLY SIGNED BY: Alexey Polo DO documented in this encounter [facility] 10-09-2024 History of Present illness Narrative Patient Name: Melanie Espinoza Date of : 1955 Date of Service: 10/09/2024 Facility: [facility] Type of Visit: Subsequent Visit Subjective Melanie Espinoza is a 69 y.o. female seen today at [facility] facility for monthly visit. No new problems reported by staff or patient. Psych nurse is managing her psychiatric issues and they are going to cut back on her anxiety medication and increase her Austedo. Allergies: Erythromycin and Clarithromycin Code Status: [facility] BP 107/60 Pulse 54 Temp 36.6 C (97.8 F) Resp 20 Wt 45.7 kg (100 lb 12.8 oz) SpO2 97% BMI 17.86 kg/m Physical Exam Vitals reviewed. Constitutional: General: She is not in acute distress. Appearance: She is underweight. She is not ill-appearing. Comments: Patient in bed. Movements seem to be less HENT: Head: Normocephalic. Cardiovascular: Rate and Rhythm: Normal rate and regular rhythm. Pulses: Normal pulses. Heart sounds: Normal heart sounds. No murmur heard. Pulmonary: Effort: Pulmonary effort is normal. No respiratory distress. Breath sounds: No wheezing, rhonchi or rales. Musculoskeletal: Cervical back: Neck supple. Right lower leg: No edema. Left lower leg: No edema. Neurological: General: No focal deficit present. Mental Status: She is alert and oriented to person, place, and time. Gait: Gait abnormal. Comments: involuntary movements fairly well controlled today Psychiatric: Mood and Affect: Mood normal. Thought Content: Thought content normal. Judgment: Judgment normal. Summary / Assessment / Plan 1. Movement disorder 2. Anxiety 3. Tardive dyskinesia 4. SIADH (syndrome of inappropriate ADH production) Psych is going to decrease her anxiety medication and increase her Austedo. All medications reviewed and are medically necessary. ELECTRONICALLY SIGNED BY: Alexey Polo DO documented in this encounter [facility] 10-09-2024 History of Present illness Narrative Patient Name: Melanie Espinoza Date of : 1955 Date of Service: 10/09/2024 Facility: [facility] [place] Type of Visit: Subsequent Visit Subjective Melanie Espinoza is a 69 y.o. female seen today at [facility] facility for monthly visit. Patient reports that the psych nurse is cutting back on anxiety meds and increase Austedo. She has no new problems to report. Allergies: Erythromycin and Clarithromycin Code Status: [facility] BP 107/60 Pulse 54 Temp 36.6 C (97.8 F) Resp 20 Wt 45.7 kg (100 lb 12.8 oz) SpO2 97% BMI 17.86 kg/m Physical Exam Vitals reviewed. Constitutional: General: She is not in acute distress. Appearance: She is underweight. She is not ill-appearing. Comments: Patient in bed. Movements seem to be less HENT: Head: Normocephalic. Cardiovascular: Rate and Rhythm: Normal rate and regular rhythm. Pulses: Normal pulses. Heart sounds: Normal heart sounds. No murmur heard. Pulmonary: Effort: Pulmonary effort is normal. No respiratory distress. Breath sounds: No wheezing, rhonchi or rales. Musculoskeletal: Cervical back: Neck supple. Right lower leg: No edema. Left lower leg: No edema. Neurological: General: No focal deficit present. Mental Status: She is alert and oriented to person, place, and time. Gait: Gait abnormal. Comments: involuntary movements fairly well controlled today Psychiatric: Mood and Affect: Mood normal. Thought Content: Thought content normal. Judgment: Judgment normal. Summary / Assessment / Plan 1. Primary hypertension 2. Anxiety 3. Tardive dyskinesia 4. Movement disorder We'll see how she does with decreasing anxiety medication as it is also for her movement disorder but Austedo may offset that. Appreciate psych management. All medications reviewed and are medically necessary. ELECTRONICALLY SIGNED BY: Alexey Polo DO documented in this encounter [facility] 09-11-2024 History of Present illness Narrative Patient Name: Melanie Espinoza Date of : 1955 Date of Service: 09/11/2024 Facility: [facility] [place] Type of Visit: Subsequent Visit Subjective Melanie Espinoza is a 69 y.o. female seen today at [facility] facility for regular visit. No new problems reported by staff or patient. She cut back on caffeine and her movement disorder is better. She is also back on Austedo. Allergies: Erythromycin and Clarithromycin Code Status: [facility] BP 130/68 Pulse 72 Temp 36.7 C (98.1 F) Resp 17 Wt 45.6 kg (100 lb 9.6 oz) SpO2 97% BMI 17.82 kg/m Physical Exam Vitals reviewed. Exam conducted with a forepart reducer present (Moi Espinoza MS 3). Constitutional: General: She is not in acute distress. Appearance: She is underweight. She is not ill-appearing. Comments: Patient in bed. Movements seem to be less HENT: Head: Normocephalic. Cardiovascular: Rate and Rhythm: Normal rate and regular rhythm. Pulses: Normal pulses. Heart sounds: Normal heart sounds. No murmur heard. Pulmonary: Effort: Pulmonary effort is normal. No respiratory distress. Breath sounds: No wheezing, rhonchi or rales. Musculoskeletal: Cervical back: Neck supple. Right lower leg: No edema. Left lower leg: No edema. Neurological: General: No focal deficit present. Mental Status: She is alert and oriented to person, place, and time. Gait: Gait abnormal. Psychiatric: Mood and Affect: Mood normal. Thought Content: Thought content normal. Judgment: Judgment normal. Summary / Assessment / Plan 1. Tardive dyskinesia 2. Movement disorder 3. Primary hypertension She was congratulated on cutting back on caffeine. I suspect Austedo may be helping too. Continue other orders as directed. All medications reviewed and are medically necessary. ELECTRONICALLY SIGNED BY: Alexey Polo DO documented [facility] Note Reason for cardiology visit: Follow-up coronary artery disease, hypertension, and hyperlipidemia HPI: 08/09/2024 Patient is here today for follow-up visit. She underwent left hip surgery and doing well. She underwent 2 right shoulder surgeries and her shoulder still not doing well. Other than that the patient denies any chest pain or shortness of breath at rest or with the little activities she does. She denies orthopnea or paroxysmal nocturnal dyspnea or dizziness or palpitations or legs edema 09/18/2023 Melanie Espinoza is a 69 y.o. female without prior cardiac history but she has history of hypertension, hyperlipidemia, former smoker for about 10 years but she quit in the , history of movement disorder, chronic kidney disease, hypothyroidism. The patient requires left hip surgery and as preop evaluation she underwent Lexiscan nuclear stress test at [facility] which did not show definite perfusion [...] states that her blood pressure at the [place] [facility] go sometimes up to 200s and sometimes it send normal in the 130s. She used to smoke half pack per day for about 10 years however she quit in the . Regarding family history her father secondary to ID at age 74 and her mother secondary to stroke in her 70s. ROS: All systems were reviewed and they were negative except for the positive findings noted above in the history Past Medical History She has a past medical history of Anemia, Anxiety, Arthritis, Chronic kidney disease, Closed fracture of neck of femur (CMS/HCC) (06/16/2020), COVID-19 (07/04/2023), Dysphagia, Epilepsy (CMS/HCC), GERD (gastroesophageal reflux disease), Hyperlipidemia, Hypertension, Major depressive disorder, Osteoarthritis, Peripheral vascular disease, Rectal prolapse, Rhabdomyolysis (07/04/2023), Sepsis (CMS/HCC) (07/04/2023), Tardive dyskinesia, and Tremor. Surgical History She has a past surgical history that includes Shoulder surgery (Right) and Rectal prolapse repair. Social History She reports that she has quit smoking. Her smoking use included cigarettes. She has never used smokeless tobacco. She reports that she does not drink alcohol and does not use drugs. Family History Family History Problem Relation Name Age of Onset Hypertension Mother Stroke Mother Heart attack Father Allergies Erythromycin, Azithromycin, Erythromycin base, and Clarithromycin Medications Current Outpatient Medications: alendronate (Fosamax) 70 mg/75 mL solution, Take 70 mg by mouth every 7 (seven) days. Take in the morning with a full glass of water, on an empty stomach, and do not take anything else by mouth or lie down for the next 30 min., Disp: , Rfl: amLODIPine (Norvasc) 10 mg tablet, , Disp: , Rfl: aspirin 81 mg EC tablet, Take 81 mg by mouth in the morning., Disp: [...] bedtime for muscle spasms., Disp: , Rfl: deutetrabenazine 30 mg tablet extended release 24 hr, Take 30 mg by mouth in the morning., Disp: , Rfl: ferrous sulfate 325 (65 [...] the morning. Do not crush or chew. (Patient ta (more content not included)... [facility] 08-05-2024 History of Present illness Narrative Patient Name: Melanie Espinoza Date of : 1955 Date of Service: 08/05/2024 Facility: [facility] [place] Type of Visit: Subsequent Visit Subjective Melanie Espinoza is a 69 y.o. female seen today at [facility] facility for regular visit. No new problems reported by staff or patient. Her movements seem to be improved with starting Austedo XR. She has an appointment coming up with the office copy selector in a couple weeks. Allergies: Erythromycin and Clarithromycin Code Status: [facility] BP 118/66 Pulse 90 Temp 36.6 C (97.9 F) Resp 18 Wt 45.9 kg (101 lb 3.2 oz) SpO2 96% BMI 17.93 kg/m Physical Exam Vitals reviewed. Exam conducted with a forepart reducer present (Julio Cesar Tim MS 3). Constitutional: General: She is sleeping. She is not in acute distress. Appearance: She is underweight. She is not ill-appearing. Comments: In bed sleeping HENT: Head: Normocephalic. Cardiovascular: Rate and Rhythm: Normal rate and regular rhythm. Pulses: Normal pulses. Heart sounds: Normal heart sounds. No murmur heard. Pulmonary: Effort: Pulmonary effort is normal. No respiratory distress. Breath sounds: No wheezing, rhonchi or rales. Musculoskeletal: Right shoulder: Decreased range of motion. Cervical back: Neck supple. Right lower leg: No edema. Left lower leg: No edema. Neurological: General: No focal deficit present. Mental Status: She is oriented to person, place, and time and easily aroused. Psychiatric: Mood and Affect: Mood normal. Thought Content: Thought content normal. Judgment: Judgment normal. Summary / Assessment / Plan 1. Tardive dyskinesia 2. Primary hypertension 3. S/P reverse total shoulder arthroplasty, right So far the Austedo XR seems to be making a significant improvement in her TD. Medically stable. Continue current regimen. All medications reviewed and are medically necessary. ELECTRONICALLY SIGNED BY: Alexey Polo DO documented in this encounter [employer] 07-02-2024 History of Present illness Narrative Patient Name: Melanie Espinoza Date of : 1955 Date of Service: 07/02/2024 Facility: [facility] [place] Type of Visit: Subsequent Visit Subjective Melanie Espinoza is a 69 y.o. female seen today at [facility] for regular visit. Melanie had labs done recently for my review. She has an appointment with her orthopedist and is hoping to get a cortisone injection in her right knee for arthritis. She was recently started back on the Austedo titration pack. She did have a sleep study and does have sleep apnea. She has a CPAP. She has no new problems to report. Allergies: Erythromycin and Clarithromycin Code Status: [facility] Physical Exam Vitals reviewed. Constitutional: General: She is not in acute distress. Appearance: She is underweight. She is not ill-appearing. HENT: Head: Normocephalic. Cardiovascular: Rate and Rhythm: Normal rate and regular rhythm. Pulses: Normal pulses. Heart sounds: Normal heart sounds. No murmur heard. Pulmonary: Effort: Pulmonary effort is normal. No respiratory distress. Breath sounds: No wheezing, rhonchi or rales. Musculoskeletal: Right shoulder: Decreased range of motion. Cervical back: Neck supple. Right lower leg: No edema. Left lower leg: No edema. Neurological: General: No focal deficit present. Mental Status: She is alert and oriented to person, place, and time. Gait: Gait abnormal (ambulating in unit in wheelchair). Psychiatric: Mood and Affect: Mood normal. Thought Content: Thought content normal. Judgment: Judgment normal. Labs: Na+ 131-L H/H 13.7/41.2-wnl Lipids at goal Assessment/Plan Summary / Assessment / Plan 1. Primary hypertension 2. Tardive dyskinesia 3. Primary osteoarthritis of right knee 4. Iron deficiency anemia, unspecified iron deficiency anemia type 5. Hyperlipidemia, unspecified hyperlipidemia type 6. Hypokalemia 7. SIADH (syndrome of inappropriate ADH production) ([facility]) F/U with ortho. May need right TKA. Decrease Fe+ 325mg supplement to once a day as she is no longer anemic. Stay on fluid restriction since Na+ is still low. Lipids at goal-continue atorvastatin 40mg. Continue austedo. All medications reviewed and are medically necessary. ELECTRONICALLY SIGNED BY: Alexey Polo DO documented in this encounter [facility] 06-25-2024 Note Orthopedic Surgery Subjective Chief complaint: Chief Complaint Patient presents with Left Hip - Pain 06/25/2024 Melanie is a 69-year-old female returns to clinic today status post left hip conversion to left anterior NICOLASA (date of surgery 11/16/2023). She reports that she is doing well and denies hip pain today. She presents in a wheelchair today but reports ambulating with the assistance of a walker at her facility. She reports working with therapy at her facility. She denies any recent falls. She denies numbness/tingling in the left lower extremity. Denies fevers, chills, chest pain, shortness of breath. 01/16/2024 Melanie is a 68-year-old female returns [...] a telemedicine visit Melanie Espinoza is a 69 y.o. year old female s/p Left hip [...] pain or any drainage from the incision. History Past Surgical History: Procedure Laterality Date RECTAL PROLAPSE REPAIR SHOULDER SURGERY Right Past Medical History: Diagnosis Date Anemia Anxiety Arthritis Chronic kidney disease Closed fracture of neck of femur ([facility]) 06/16/2020 COVID-19 07/04/2023 Dysphagia Epilepsy ([facility]) GERD (gastroesophageal reflux disease) Hyperlipidemia Hypertension Major depressive disorder Osteoarthritis Peripheral vascular disease Rectal prolapse Rhabdomyolysis 07/04/2023 Sepsis ([facility]) 07/04/2023 Tardive dyskinesia Tremor Objective Left Hip: [...] alignment. No evidence of loosening or fracture. Imaging personally reviewed and interpreted by attending physician. Findings discussed with patient. Assessment/Plan Melanie Espinoza is a 69 y.o. year old female status post left hip conversion in to left NICOLASA (DOS: 11/16/23). -Clinical and imaging findings were reviewed with patient. She is doing quite well 6 weeks out from left hip conversion to NICOLASA and has no new concerns today. -Continue working with physical therapy at her living facility, using assistive devices as needed -Continue following anterior hip precautions -Follow-up as needed. If she experiences any problems, including increased pain or drainage from the incision, we encouraged her to return to clinic sooner. Yung Savage MD Orthopaedic Surgery, Resident 06/25/24 3:14 PM By using the attestations below, the signing clinician agrees that I have read and verify that the documentation has been personally reviewed by me and ensure that the documentation accurately reflects the encounter. Office Visit Attestation GC: I personally saw this patient on (more content not included)... [facility] 06-01-2024 Evaluation note Diagnosis Onset Date Resolution History of reverse total replacement of right shoulder joint acute June 012024 11:40am History of revision of total shoulder arthroplasty acute June 01 025 11:40am Other mechanical complication of other internal orthopedic devices, implant acute June 01, 2024 11:40am Right knee pain acute June 01, 2024 11:40am [facility] Work Phone: 1(582) 431-520702-17-2025 Evaluation note* Diagnosis Onset Date Resolution Status Admit Date History of reverse total replacement of right shoulder joint acute June 01, 025 11:40am History of revision of total shoulder arthroplasty acute May 162024 11:40am Other mechanical complicatio n of other internal orthopedic devices, implant acute June 01, 2024 11:40am Right knee pain acute June 01, 2024 11:40am Arthritis of right knee acute M arch 2024 1:32pm [facility] Work Phone: 1(369) 366-490002-17-2025 Evaluation note* Diagnosis Onset Date Resolution Status Admit Date History of reverse total replacement of right shoulder joint acute June 01 11:40am History of revision of total shoulder arthroplasty acute May 162024 11:40am Other mechanical complicatio n of other internal orthopedic devices, implant acute June 01, 2024 11:40am Right knee pain acute June 01, 2024 11:40am Arthritis of right knee acute M arch 2024 1:32pm Arthritis of right knee acute A pril 2024 8:30am [facility] Work Phone: 1(252) 107-699502-17-2025 Evaluation note* Diagnosis Onset Date Resolution Status Admit Date History of reverse total replacement of right shoulder joint acute June 01 11:40am History of revision of total shoulder arthroplasty acute May 162024 11:40am Other mechanical complicatio n of other internal orthopedic devices, implant acute June 01, 2024 11:40am Right knee pain acute June 01, 2024 11:40am Arthritis of right knee acute M arch 2024 1:32pm Arthritis of right knee acute A pril 2024 8:30am History of reverse total replacement of right shoulder joint acute August 10, 2024 11:19am History of revision of total shoulder arthroplasty acute July 11:19am Other mechanical complicatio n of other internal orthopedic devices, implant acute August 10 11:19am [facility] Work Phone: 1(794) 794-405402-12-2025 History of Present illness Narrative* Alexey Polo, DO - 05/27/2024 11:59 PM EST Patient Name: Melanie Espinoza Date of : 1955 Date of Service: 05/27/2024 Facility: [facility] [place] Type of Visit: Acute Visit Subjective Melanie Espinoza is a 69 y.o. female seen today at [facility] facility for therapy visit. Melanie asked see me because of her fluid restriction. She would like to have it raised. Staff reports that she frequently sneaks fluids various ways. She denies new problems. She has follow up with ortho for her reverse shoulder replacement. Allergies: Erythromycin and Clarithromycin Code Status: [facility] BP 127/86 Pulse 71 Temp (!) 35.8 C (96.4 F) Physical Exam Vitals reviewed. Exam conducted with a forepart reducer present (Cole Amador MS 3). Constitutional: General: She is not in acute [...] edema. Left lower leg: No edema. Neurological: General: No focal deficit present. Mental Status: She is alert and oriented to person, place, and time. Motor: Tremor present. Gait: Gait abnormal (ambulating in unit in wheelchair). Psychiatric: Mood and Affect: Mood normal. Thought Content: Thought content normal. Judgment: Judgment normal. Summary / Assessment / Plan 1. SIADH (syndrome of inappropriate ADH production) (CMS-HCC) 2. Hyperlipidemia, unspecified hyperlipidemia type 3. Iron deficiency anemia, unspecified iron deficiency anemia type 4. Hypo-osmolality and hyponatremia 5. Hypocalcemia 6. Hypokalemia I am going to check her CBC, BMP and lipid panel. We maybe able to raise her fluid limit based on the labs. Otherwise medically stable. Continue current regimen. All medications reviewed and are medically necessary. ELECTRONICALLY SIGNED BY: Alexey Polo DO [facility] History of Present illness Narrative* Dionicio Trevizo MD - 05/06/2024 11:10 AM EST Melanie Espinoza is a 68 y.o. female Dionicio Trevizo MD presents with chief complaint of Thyroid Problem and Follow-up HPI: Interim History: 04/2024 Follow-up visit of 05/06/2024 for hypothyroidism. on levothyroxine mcg daily, lives in [place]. Interim History: 10/2023 Follow-up visit of 10/23/2023 for hypothyroidism. on levothyroxine 100 mcg daily by ER team on PCP ?, lives in [place]. lab on 09/2023 TSH 1.85, FT4 0.93, T3 0.65 (0.8-1.8) Interim History: 09/2022. Follow-up visit of 09/28/2022 for hypothyroidism. on levothyroxine 75 mcg daily, lives in [place]. Interim History: 09/2021. Follow-up visit of 10/06/2021 for hypothyroidism. on levothyroxine 75 mcg daily, lives in [place] , no new lab Interim History: 04/2021. Follow-up visit of 04/24/2020 for hypothyroidism. T3 0.75 (0.6-1.8) free T4 0.86(0.78- 1.48), and TSH 1.356. on levothyroxine 75 mcg daily, now live in [place] Interim History: 04/2020. Follow-up visit of for hypothyroidism. free T3 at 2.77 (2.77-5.27) free T4 at 0.94(0.78-2.19),, and TSH 4.7. on levothyroxine, had recent hip fx Interim History: 09/2019. Follow-up visit of 09/29/2019 for hypothyroidism. TG antibody less than 1, TPO less than 9, free T3at 2 (2-4.7) free T4 at 0.9, and [...] unsteady. She is following with neurologist in [facility] for that. Lab done on June 08; [...] all orders for this visit: Acquired hypothyroidism ([facility]) - T3, free; Future - T4, free; Future - TSH; Future We will continue with levothyroxine 75 mcg daily we will check lab and adjust. Movement disorder To follow with her neurologist No follow-ups on file. documented in this encounterL[facility]eland [facility] [id number] History of Present illness Narrative* Alexey G Christ, DO - 04/17/2024 3:57 PM EST Patient Name: Melanie Espinoza Date of : 1955 Date of Service: 04/17/2024 Facility: [facility] Type of Visit: Subsequent Visit Subjective Melanie Espinoza is a 68 y.o. female seen today at [facility] facility for monthly visit and per pt [...] yet. Allergies: Erythromycin and Clarithromycin Code Status: [facility] BP (!) 143/104 Pulse 75 Physical Exam [...] 2. SIADH (syndrome of inappropriate ADH production) (CMS-HCC) 3. Sleep disorder breathing She is on trazodone 200mg and has been for >1 year. Would not recommend to increase it at this time. I would wait and see what the sleep study shows first. Encouraged her to not take a nap. Continue other orders as dir. All medications reviewed and are medically necessary. ELECTRONICALLY SIGNED BY: Alexey Polo DO documented in this encounterFire[facility] History of Present illness Narrative* Alexey Polo DO - 04/01/2024 11:59 PM EST Patient Name: Melanie Espinoza Date of : 1955 Date of Service: 04/01/2024 Facility: [facility] Type of Visit: Skilled Visit Subjective Melanie Espinoza is a 68 y.o. female seen today at [facility] facility for therapy visit. Melanie is participating [...] controlled. Allergies: Erythromycin and Clarithromycin Code Status: [facility] BP 159/85 Pulse 82 Temp 36.8 C [...] up a sleep study. They may prefer todo one here in-house depending on what [employer] covers. Continue therapy to reach maximum improvement. Continue other orders as directed. All medications reviewed and are medically necessary. ELECTRONICALLY SIGNED BY: Alexey Polo DO documented in this encounterDayton Children[facility] HospitalBoston [id number] Evaluation note* Diagnosis Onset Date Resolution Status Admit Date History of reverse total replacement of right shoulder joint acute March 31, 2 024 11:51am History of revision of total shoulder arthroplasty acute March 152023 11:51am Other mechanical complicatio n of other internal orthopedic devices, implant acute March 31, 2024 11:51am Right knee pain acute March 31, 2024 11:51am History of reverse total replacement of right shoulder joint acute June 01, 11:40am History of revision of total shoulder arthroplasty acute May 162024 11:40am Other mechanical complicatio n of other internal orthopedic devices, implant acute June 01, 2024 11:40am Right knee pain acute June 01, 2024 11:40am [facility] Work Phone: 1(245) 458-602110-31-2024 Progress note Author Nickolas Hawthorne [facility] February 13, 2024 8:15am Note Date/Time February 13, 2024 8 :15am [facility] [address] [place], [place] [id number] Orthopedic Progress Note Signed Patient: Melanie Espinoza MR#: [id number] : 1955 Acct:[id number] Age/Sex: 68 / F Adm Date: 4 Loc: 4N Room: [address] [place] [address] Type: REG SDC Attending Dr: Nickolas Hawthorne [...] % (Auto) 73.7 Lymph % (Auto) 14.6 Mccreary % (Auto) 8.7 Eos % (Auto) 2.1 Baso % (Auto) 0.9 Nucleat RBC Rel Count 0.1 Neut # (Auto) 4.8 Lymph # (Auto) 0.9 L Mccreary # (Auto) 0.6 Eos # (Auto) 0.1 [...] A Synov Supernatant Color Red Synovial RBC 094616 H Synovial Tot Nuc Cell 19864 H Synovial Neutrophils 12 Synovial Eosinophils 0 [...] By: <Electronically signed by Nickolas Hawthorne DO> 02/13/24 0815 [facility] Work Phone: 1(961) 892-973310-10-2024 Evaluation note* Diagnosis Onset Date Resolution Status Admit Date History of reverse total replacement of right shoulder joint acute January 22 9:23am Other mechanical complicatio n of other internal orthopedic devices, implant acute January 22 024 9:23am History of revision of total shoulder arthroplasty acute February 112023 11:55am History of reverse total replacement of right shoulder joint acute February 23, 024 9:13am History of revision of total shoulder arthroplasty acute February 132023 9:13am Other mechanical complicatio n of other internal orthopedic devices, implant acute February 24, 2024 9:13am [facility] Work Phone: 1(790) 482-341610-04-2024 [facility] Reason for [...] she underwent Lexiscan nuclear stress test at [facility] which did not show definite perfusion [...] states that [place] go sometimes up to 200s and sometimes [...] disease, Closed fracture of neck of femur ([facility]) (06/16/2020), COVID-19 (07/04/2023), Dysphagia, Epilepsy ([facility]), GERD (gastroesophageal reflux disease), Hyperlipidemia, Hypertension, Major depressive disorder, Osteoarthritis, Peripheral vascular disease ([facility]), Rectal prolapse, Rhabdomyolysis (07/04/2023), Sepsis ([facility]) (07/04/2023), Tardive dyskinesia, and Tremor. Surgical History [...] , Rfl: primidone (Mys (more content not included)...[facility] 01-16-2024 Note Attestation signed by Ernesto Kan [...] disease Closed fracture of neck of femur ([facility]) 06/16/2020 COVID-19 07/04/2023 Dysphagia Epilepsy ([facility]) GERD (gastroesophageal reflux disease) Hyperlipidemia Hypertension Major depressive disorder Osteoarthritis Peripheral vascular disease ([facility]) Rectal prolapse Rhabdomyolysis 07/04/2023 Sepsis ([facility]) 07/04/2023 Tardive dyskinesia Tremor Objective Left Hip: [...] management and confirm the (more content not included)...[facility]09-13-2024 Telephone encounter Note* Telephone Encounter - Lynnette Ortiz RN - 12/27/2023 2:12 PM EDT Rx's faxed Spoke with academic support director at [facility]. Destiney is not in today Will relay the message from me Martin Ortiz RN ext [phone] [facility]09-13-2024 Miscellaneous Notes* Telephone Encounter - Lynnette Ortiz RN - 12/27/2023 2:12 PM EDT Rx's faxed Spoke with academic support director at [facility]. Azara is not in today Will relay the message from me Martin Ortiz RN ext [phone] * Telephone Encounter - Tai Hinojosa MD - 12/27/2023 2:06 PM EDT Ok I am ordering BOTH of these. Amantadine may cause forgetfulness and hallucinations TBZ is usually a 3x/day med, but I am only ordering is bid bc that's they priced. * Telephone Encounter - Elise Burks - 12/26/2023 3:18 PM EDT [facility] is calling back to see if you fax rx to them. caller would like a call back either way today if rx was faxed or not Caller can be reached at [phone] * Telephone Encounter - Arnold Hall RN - 12/26/2023 10:36 AM EDT Spoke to Destiney at [facility]. Pt using inpatient pharmacy and her insurance changed, states [employer] is $7800/month, and Pt cannotafford, has not had medication in 3 days. Pharmacist recommended alternatives below, Destiney states Pt can afford either option, looking for whatever would be the best alternative. -Amantadine 100mg BID ($18/month) -Tetrabenazine 25mg BID ($1300/month) Please fax new script to [phone] Forwarded to Provider to review. * Telephone Encounter - Radha Tilley - 12/26/2023 10:27 AM EDT [facility], says patient is out of medication... requesting alternative medication * Telephone Encounter - Esperanza Larios - 12/25/2023 4:33 PM EDT [facility] calling to ask since pt insurance changed is there a alternative to Austedo that the pt canbe giving. Please call her at [phone] documented in this encounterL[facility]09-13-2024 Telephone encounter Note * Telephone Encounter - Tai Hinojosa MD - 12/27/2023 2:06 PM EDT Ok I am ordering BOTH of these. Amantadine may cause forgetfulness and hallucinations TBZ is usually a 3x/day med, but I am only ordering is bid bc that's they priced. [facility]09-12-2024 Telephone encounter Note* Telephone Encounter - Elise Burks - 12/26/2023 3:18 PM EDT [facility] is calling back to see if you fax rx to them. caller would like a call back either way today if rx was faxed or not Caller can be reached at [phone] [facility]09-12-2024 NoteOrthopedic Surgery Subjective Chief complaint: Chief Complaint [...] disease Closed fracture of neck of femur ([facility]) 06/16/2020 COVID-19 07/04/2023 Dysphagia Epilepsy ([facility]) GERD (gastroesophageal reflux disease) Hyperlipidemia Hypertension Major depressive disorder Osteoarthritis Peripheral vascular disease ([facility]) Rectal prolapse Rhabdomyolysis 07/04/2023 Sepsis ([facility]) 07/04/2023 Tardive dyskinesia Tremor Objective Imaging personally reviewed: None Assessment/Plan Melanie Espinoza is a 68 y.o. year old female status post left hip conversion in to left NICOLASA No primary diagnosis found. [facility] Telephone encounter Note* Telephone Encounter - Arnold Hall RN - 12/26/2023 10:36 AM EDT Spoke to Destiney at [facility]. Pt using inpatient pharmacy and her insurance changed, states [employer] is $7800/month, and Pt cannotafford, has not had medication in 3 days. Pharmacist recommended alternatives below, Destiney states Pt can afford either option, looking for whatever would be the best alternative. -Amantadine 100mg BID ($18/month) -Tetrabenazine 25mg BID ($1300/month) Please fax new script to [phone] Forwarded to Provider to review. [facility]09-12-2024 Telephone encounter Note* Telephone Encounter - Radha Tilley - 12/26/2023 10:27 AM EDT [facility] at [facility] calling again, says patient is out of medication... requesting alternative medication [facility]09-11-2024 Telephone encounter Note* Telephone Encounter - Esperanza Larios - 12/25/2023 4:33 PM EDT [facility] calling to ask since pt insurance changed is there a alternative to Austedo that the pt canbe giving. Please call her at [phone] [facility]08-27-2024 NotePhysical Therapy Physical Therapy Treatment Patient Name: Melanie Espinoza : 1955 Today's Date: 12/10/2023 Time In: 1345 Time Out: 1359 Patient Active Problem List Diagnosis Avascular necrosis of bone of hip, left ([facility]) Movement disorder Acquired hypothyroidism Acute alteration in mental status Anemia Depression Generalized anxiety disorder Generalized muscle weakness Hiatal hernia Hydronephrosis Hypocalcemia Hypoglycemia Hypokalemia Hypophosphatemia Chronic hyponatremia Leg swelling Primary osteoarthritis Multifactorial gait disorder Nausea and vomiting Osteoarthritis of left hip Pain of left hip joint Primary hypertension Rectal prolapse S/P reverse total shoulder arthroplasty, right SIADH (syndrome of inappropriate ADH production) ([facility]) Tardive dyskinesia Abnormal cardiovascular stress test Atherosclerosis of [place] coronary artery of [place]-apache heart without angina pectoris 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 [facility]08-27-2024 NotePatient has [facility] [place] [facility] [place] [facility]-no precert required. OTM notified.[facility] 12-10-2023 Note Attestation signed by Jasmina Espinosa [...] Dose Status alendronate (Fosamax) 70 mg tablet [id number] No Take 1 tablet by mouth 1 (one) time per week. Kasi Mcclain MD Past Week Active aspirin 81 mg chewable tablet [id number] No Chew 1 tablet (81 mg) in the morning. Leonie Joya MD Past Week Active atorvastatin (Lipitor) 40 mg tablet [id number] Yes Take 1 tablet by mouth in the evening. Kasi Mcclain MD 12/05/2023 Active atorvastatin (Lipitor) 40 mg tablet [id number] Take 1 tablet (40 mg) by mouth in the morning. Dionicio Gardner MD 12/04/23 2359 A (more content not included)...[facility]08-27-2024 NoteGIM Inpatient Progress Note Patient - Melanie [...] Lab Units 12/10/23 0524 12/09/23202512/09/23 0550 12/08/23 19312/08/23 0522 SODIUM mmol/L 132* 132* 129* 130* [...] , ABGPO2 , ABGHCO3 , ABGBASEDEFIC , HHZC9IRT , ABGOXYGENSOU No lab exists for component: [...] reactive PLAN: Fluid restriction (more content not included)...[facility]08-27-2024 NoteOccupational Therapy Occupational Therapy Treatment Note Patient [...] right SIADH (syndrome of inappropriate ADH production) (CMS/HCC) Tardive dyskinesia Abnormal cardiovascular stress test Atherosclerosis of [place] coronary artery of [place]apache heart without angina pectoris 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 chronic kidney disease stage V or end stage renal disease(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.12) ([facility]) GERD (gastroesophageal reflux disease) Traumatic arthritis of left hip Past Medical History: Diagnosis Date Anemia Anxiety Arthritis Chronic kidney disease Closed fracture of neck of femur ([facility]) 06/16/2020 COVID-19 07/04/2023 Dysphagia Epilepsy ([facility]) GERD (gastroesophageal reflux disease) Hyperlipidemia Hypertension Major depressive disorder Osteoarthritis Peripheral vascular disease ([facility]) Rectal prolapse Rhabdomyolysis 07/04/2023 Sepsis ([facility]) 07/04/2023 Tardive dyskinesia Tremor Past Surgical History: Procedure Laterality Date RECTAL PROLAPSE REPAIR SHOULDER SURGERY Right OT Received On 12/10/2023 Subjective When we are done, Id like to get back into bed. Objective 1 Pt was returned to bed at [facility] with alarm on, Gaymar on and heel floating. Objective 2 Once pt was returned to bed ad copy writer noted what appeared to be an equinovarus deformity and notified OT and PT to further assess. This deformity was not noted during wt bearing activities. OT Discharge Recommendation Fdc Facility OT Equipment Recommendations TBD General Pain [...] assist Where Assessed: From chair, Standing , riprap placer Comments: Pt sat to remove brief and thread brief with use of riprap placer and stood with walker for pulling over [...] endurance, Decreased functional mobility, Decreased IADLs OT Assessment/TEACHER ADVISOR Summary: Pt is progressing toward goals but would benefit from continued therapy to increase balance, safety and endurance during functional mobility and independence with ADL's to return to PLOF. Prognosis: Fair Evaluation/Treatment Tolerance: Patient tolerated treatment well Medical Staff Made Aware: Yes Strengths: Ability to acquire knowledge, Capable of completing ADLs semi/independent, Insight into problems, Living arrangement secure (more content not included)...[facility]08-27-2024 Note 12/10/23 0911 Post Acute Info Authorization started for SNF () [facility] name [facility] When was authorization started? 12/10/23 What time was authorization started? 0911 Reference number for submission ([id number]) How are we submitting authorization Manual What insurance are we submitting through [employer] [facility]ert [facility], OTM to follow. [facility]08-27-2024 Note Attestation signed by Ernesto Kan MD [...] Lyon MD Orthopaedic Surgery, PGY-4 Ortho Pager [phone] 12/10/23 7:[address] [facility]08-26-2024 Note Attestation signed by Jasmina [...] Dose Status alendronate (Fosamax) 70 mg tablet [id number] No Take 1 tablet by mouth 1 (one) time per week. Historical ProviderMD Past Week Active aspirin 81 mg chewable tablet [id number] No Chew 1 tablet (81 mg) in the morning. Leonie Joya MD Past Week Active atorvastatin (Lipitor) 40 mg tablet [id number] Yes Take 1 tablet by mouth in the evening. Historical ProviderMD 12/05/2023 Active atorvastatin (Lipitor) 40 mg tablet [id number] Take 1 tablet (40 mg) by mouth in the morning. Dionicio Gardner MD 12/04/23 2359 Austedo 12 mg tablet [id number] Yes Take 12 mg by mouth in the morning and at bedtime. 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 - 1955 [facility] # - [id number] Date of Admission - 12/06/2023 5:42 AM [...] , ABGPO2 , ABGHCO3 , ABGBASEDEFIC , [id number] , ABGOXYGENSOU No lab exists for component: [...] sodium chloride, 1 g, (more content not included)...[facility]08-26-2024 Note Attestation signed by Ernesto Kan MD [...] placed conversion L total hip prosthesis. ASSESSMENT: Melnaie Espinoza is a 68 y.o. female with [...] Lyon MD Orthopaedic Surgery, PGY-4 Ortho Pager [phone] 12/09/23 6:[address] [facility]08-25-2024 Note Attestation signed by Brigitte [...] Dose Status alendronate (Fosamax) 70 mg tablet [id number] No Take 1 tablet by mouth 1 (one) time per week. His (more content not included)...[place] [address]-25-2024 NoteINTERNAL MEDICINE Follow-up Patient Visit HPI: continues [...] be contributing to her hyponatremia. Gurpreet Man MDUnLicking [facility] Hospital08-25-2024 Note Attestation signed by Ernesto Kan MD [...] Lyon MD Orthopaedic Surgery, PGY-4 Ortho Pager [phone] 12/08/23 7:[address] [facility]08-25-2024 Note Attestation signed by Ernesto [...] Lyon MD Orthopaedic Surgery, PGY-4 Ortho Pager [phone] 12/08/23 7:[address] 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 Will patient need Precert for Post Acute needs? Yes Patient's goal for discharge [facility] Does the patient need discharge transport arranged? Yes Screened by [facility]. 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. PT/OT recommend skilled therapy. Sent referral to [facility] to check on Medicaid bed hold and if they can accept back prior to skilled auth for therapy.[facility]08-24-2024 NoteOccupational Therapy Occupational Therapy Evaluation Patient Name: [...] S/P reverse total shoulder arthroplasty, right Sepsis ([facility]) SIADH (syndrome of inappropriate ADH production) ([facility]) Tardive dyskinesia Preoperative clearance Abnormal cardiovascular stress test Atherosclerosis of [place] coronary artery of [place]-apache heart without angina pectoris 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 chronic kidney disease stage V or end stage renal disease(404.12) ([facility]) GERD (gastroesophageal reflux disease) Traumatic arthritis of left hip Past Medical History: Diagnosis Date Anemia Anxiety Arthritis Chronic kidney disease Dysphagia Epilepsy ([facility]) GERD (gastroesophageal reflux disease) Hyperlipidemia Hypertension Major depressive disorder Osteoarthritis Peripheral vascular disease ([facility]) Rectal prolapse Past Surgical History: Procedure Laterality [...] Home Living Home Living Type of Home: alf Home Adaptive Equipment: Walker rolling, Wheelchair-manual, Rollator Prior Level of Function Prior Function Level of [place]: Needs assistance with ADLs, Needs assistance with [...] Coordination Movements are Fluid (more content not included)...[facility]08-24-2024 NotePhysical Therapy Evaluation Patient Name: Melanie Espinoza Today's Date: 12/07/2023 Admit Date: 12/06/2023 Time In: 1035 Time Out: 1053 Total Time: 18 minutes Discharge Recommendation: therapy at SNF/her home ECF History of present illness Melanie Espinoza is a 68 y.o. female admitted to [facility] following right anterior approach NICOLASA due to AVN. 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 chronic kidney disease stage V or end stage renal disease(404.12) ([facility]) GERD (gastroesophageal reflux disease) Traumatic arthritis of left hip Past Medical History: Diagnosis Date Anemia Anxiety Arthritis Chronic kidney disease Dysphagia Epilepsy ([facility]) GERD (gastroesophageal reflux disease) Hyperlipidemia Hypertension Major depressive disorder Osteoarthritis Peripheral vascular disease ([facility]) Rectal prolapse Past Surgical History: Procedure Laterality Date RECTAL PROLAPSE REPAIR SHOULDER SURGERY Right Prior level of function Pt notes she does not walk , notes she was transferring independently to and from , she notes she gets help with ADLS, she notes about 50% assistance Home set-up Pt lives at [facility] Support system ECF staff. Adaptive Equipment Per [...] T-Score: 11 Assessment Melanie Espinoza presents to [facility] with limited functional mobility secondary to recent left NICOLASA, anterior approach, per Dr Kan. The patient demonstrates decreased strength, postural control/awareness, and gait/balance impairments (more content not included)...[facility]08-24-2024 Note Attestation signed by Gurpreet Man MD [...] GURPREET MAN on 12/07/23 at 11:28 AM. GI Inpatient Progress Note Patient - Melanie Espinoza Age - 68 y.o. - 1955 [facility] # - [id number] Date of Admission - 12/06/2023 5:42 AM [...] , ABGPO2 , ABGHCO3 , ABGBASEDEFIC , [id number] , ABGOXYGENSOU No lab exists for component: [...] of SIADH Hyponatremia, w (more content not included)...[facility]08-24-2024 Note12/07/23 1012 Admission Assessment Questions Verify insurance [...] Status Interested Does the patient have a trimming caser assigned to them through their insurance? No Living Arrangement (Current/Prior to Hospitalization) alf/residential care ([facility]) Does the patient have history of HHC or SNF? Yes Assistive Device Walker;Wheelchair Patient's [facility] Was patient reminded that goal for discharge is 11am? Yes Does the patient have transportation at discharge? No Type of Residence alf/residential care Is PT/OT appropriate? Yes Is PT/OT ordered? Yes Is SW consult appropriate? No Is SW consult ordered? No Do you understand the benefits of MyChart? No Were you able to send link and activate MyChart? NoUnLicking [facility]08-24-2024 Note Attestation signed by Ernesto [...] Lyon MD Orthopaedic Surgery, PGY-4 Ortho Pager [phone] 12/07/23 8:[address] [facility]08-23-2024 NotePatient: Melanie Espinoza Procedure Summary Date: 12/06/23 Room / Location: [facility] OPERATING ROOM 02 / [facility] Operating Room Anesthesia Start: 726 Anesthesia Stop: [...] PACU per anesthesia protocol. No notable events documented.[facility]08-23-2024 Note Patient: Melanie Espinoza Procedure Summary Date: 12/06/23 Room / Location: [facility] OPERATING ROOM 02 / [facility] Operating Room Anesthesia Start: 726 Anesthesia Stop: [...] direct observation Transport: uneventful Patient condition is: stableUnLicking [facility]08-23-2024 Note Airway Date/Time: 12/06/2023 7:36 AM Urgency: elective General Information and Staff Patient location during procedure: OR Resident/DRILL RUNNER HELPER/CAA: Calvin Cervantes MD Performed: other anesthesia staff [...] approach: 1 Number of other approaches attempted: 0UnLicking [facility] 11-29-2023 [place].[facility]08-15-[address] [facility] and will discharge back there. 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 Per her primary care physician recommendations she underwent coronary angiogram. 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 Per her primary care physician recommendations she underwent coronary angiogram. This showed mild three-vessel coronary disease and the recommendation for her office copy selector was to be on aspirin, statin, and [...] to provide a note (more content not included)...[facility]07-30-2024 NoteHNO ID: [id number] Author: TAI HINOJOSA MD Service: ? Author Type: Physician Type: Progress Notes Filed: 11/12/2023 11:37 Note Text: November 12, 2023 Tai Hinojosa MD [address] / [address] [address] Esteban Garza MD ([facility]) [facility] [place] [address] Melanie Espinoza : 1955 Interval History: Melanie [...] Nerves: audible voice volu (more content not included)...[facility]07-30-2024 History of Present illness Narrative* Tai Hinojosa MD - 11/12/2023 11:19 AM EDT November 12, 2023 Tai Hinojosa MD [address] / [address] [address] Esteban Garza MD ([facility]) [address] [place] [address] Melanie Espinoza : 1955 Interval History: Melanie [...] on the day of service, which included [id number] patient care, completing clinical documentation, obtaining and/or reviewing separately obtained history, performing a medically appropriate examination, counseling and educating the patient/family/caregiver, and ordering medications, tests, or procedures. Thank you for including me in the care of this interesting patient. Tai Hinojosa MD Staff Neurologist [facility] Cc: documented in this encounterLake[facility]07-22-2024 NoteCardiovascular Laboratory Report FINAL IMPRESSIONS: Mild three-vessel [...] left radial artery was obtained. A 6 Irish glide sheath was inserted without difficulty. Bilateral [...] 30% stenoses. INDICATIONS: Abnormal stress test, [facility] Reason for [...] [facility] which did not show definite perfusion defect [...] states that [place] [facility] [place] [facility] go sometimes up to 200s and sometimes [...] Take 1 ta (more content not included)... [facility]06-05-2024 NoteNew patient here to establish care. She needs cleared for hip surgery with Dr. Kan at [facility], scheduled for 10/11/2023. She had stress test last week. She denies all cardiac symptoms, such as chest pain, SOB, palpitations, lightheadedness/syncope. Review of Systems Musculoskeletal: Positive for arthritis, back pain, joint pain and muscle weakness. Neurological: Positive for tremors. All other systems reviewed and are negative.[facility] 08-13-2023 NoteCALLED AND SPOKE WITH [facility] HERBETSEYGE RN IN R/T PATIENTS MEDICAL CLEARANCE FOR UPCOMING SURGERY ON 08/25 AND PER RN PATIENT IS NOT CLEARED, PCP HAS ORDERED CARDIAC WORKUP D/T ABNORMAL EKG. PATIENT NEEDS SURGERY RESCHEDULED TO END September. SURGERY RESCHEDULED TO 10/10 AND [facility]OP KARIE[facility] of Present illness Narrative* No Stearns RN - 06/28/2023 9:59 AM EDT ACM MOHINDER RN Reason for review or outreach: Medication Adherence review per request of payer Medication Adherence Review Details: Cholesterol FYI / ACTION REQUEST: Patient identified by name and date of Summary/Findings of review: Patient is seeing Non-[facility] PCP at [facility] Family Medicine Patient Attributed To: E Payer: [facility] Action Taken: Data submitted to Payer Other Contact made with patient: No, Chart review only. Signature: No Stearns RN documented in this encounterLakehealth [facility]03-06-2023 Evaluation note* Encounter Date Diagnosis Assessment Notes [...] arthroplasty of right shoulder (ICD-10 - Z96.611) [employer] Other 10-17-2022 Evaluation note* Encounter Date Diagnosis [...] exercises, these were demonstrated. Call with questions/concerns. [employer] Other 09-20-2022 Instructions* Patient Instructions* Tai Hinojosa MD - 01/02/2022 9:43 AM EDT 1) Double the dose of Austedo to 12 mg twice a day for 1 month, then increase further to 18 mg 2) continue clonazepam and methocarbamol 3) continue primidone for the action tremor documented in this encounterLakehealth [facility] Center09-20-2022 History of Present illness Narrative* Tai Hinojosa MD - 01/02/2022 9:25 AM EDT January 02, 2022 Tai Hinojosa MD [address] / [address] [address] Esteban Garza MD ([facility]) [address] [place] [address] Melanie Espinoza : 1955 Interval History: Melanie [...] on the day of service, which included [id number] patient care, completing clinical documentation, obtaining and/or reviewing separately obtained history, performing a medically appropriate examination, counseling and educating the patient/family/caregiver, and ordering medications, tests, or procedures. Thank you for including me in the care of this interesting patient. Tai Hinojosa MD Staff Neurologist [facility] Cc: documented in this encounterLakehealth [facility] Center08-24-2022 Evaluation note* Encounter Date Diagnosis [...] PCP for LFTs and lipid profile monitoring. [facility] [employer] Other 08-22-2022 Evaluation note* Encounter Date Diagnosis [...] arthroplasty of right shoulder (ICD-10 - Z96.611) [employer] Other 07-14-2022 Evaluation note* Encounter Date Diagnosis [...] on her own. Call with questions/concerns . [employer] Other 07-05-2022 Evaluation note* Encounter Date Diagnosis Assessment Notes Treatment Notes Treatment Clinical Notes Oct, History of reverse total replacement of right shoulder joint (ICD-10 - Z98.890) [employer] Other 06-06-2022 Evaluation note* Encounter Date Diagnosis Assessment Notes Treatment Notes Treatment Clinical Notes Sep, Status post reverse total arthroplasty of right shoulder (ICD-10 - Z96.611) [employer] Other 03-30-2022 Miscellaneous Notes* Telephone Encounter - [...] 07/12/2021 12:53 PM EDT Donita calling from [facility] States the pt received a letter from insurance company that medication Austedo 6 mg was denied. Will need prior authorization. Can you please assist with PA. Veteran requesting that once PA approved to fax to them at [phone]. Thanks. * Telephone Encounter - Kailey Andrews - 07/12/2021 11:08 AM EDT Patient called and would like to know if the doctor can reach out to the insurance company to do a prior auth for Austedo 6mg to receive medication.Please advise Thank you, Kailey documented in this encounterLakehealth [facility] Center03-17-2022 NotePROCEDURE: XR SHOULDER RT 2V [...] Electronically authenticated by: CM RAMIREZ Date: 2021-06-29 14:37[facility]02-15-2022 Evaluation note* Encounter Date Diagnosis Assessment [...] pain of right shoulder (ICD-10 - M25.511) [employer] Other 12-08-2021 Evaluation note* Encounter Date Diagnosis [...] stated that she has an appointment with hat and cap drying room attendant to check her thyroid. She follow-up with her family doctor as well. [employer] Other Evaluation noteNo InformationNort [employer] Other Evaluation noteNo assessment information available [facility] Work Phone: Evaluation note* Diagnosis Lingual facial buccal dyskinesia- Primary Orofacial dyskinesia Dyskinesia, tardive Subacute 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 Dyskinesia, orofacial Excessive physiologic tremor Essential and other specified forms of tremor documented in this encounter [facility] [place] [facility]* Diagnosis Lingual facial buccal dyskinesia- Primary Orofacial dyskinesia Dyskinesia, tardive Subacute 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 documented in this encounter [facility] [place] [facility]* Diagnosis Onset Date Resolution Status History of reverse total rep lacement of right shoulder joint acute [id number] acute [facility] Work Phone: Evaluation note* Diagnosis Onset Date Resolution Status History of reverse total rep lacement of right shoulder joint acute [id number] acute History of revision of total shoulder arthroplasty acute [facility] Work Phone: Evaluation note* Diagnosis Aftercare following right shoulder joint replacement surgery- Primary Witnessed apneic spells Movement 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 [facility] Diagnosis Primary hypertension- Primary Unspecified essential hypertension SIADH (syndrome of inappropriate ADH production) ([facility]) Other disorders of neurohypophysis Sleep disorder breathing Other sleep disturbances [facility] this [facility]* Diagnosis Acquired hypothyroidism (CMS/HCC)- Primary Unspecified hypothyroidism Movement 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 [facility] Diagnosis SIADH (syndrome of inappropriate ADH production) (CMS-HCC)- Primary Other disorders of neurohypophysis Hyperlipidemia, unspecified hyperlipidemia type Iron deficiency anemia, unspecified iron deficiency anemia type Hypo-osmolality and hyponatremia Hypocalcemia Hypokalemia Hypopotassemia documented [facility] this [facility]* Diagnosis Primary hypertension- Primary Unspecified essential hypertension Tardive dyskinesia Subacute 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 Primary osteoarthritis of right knee Iron deficiency anemia, unspecified iron deficiency anemia type Hyperlipidemia, unspecified hyperlipidemia type Hypokalemia Hypopotassemia SIADH (syndrome of inappropriate ADH production) Other disorders of neurohypophysis [facility]* Diagnosis Tardive dyskinesia- Primary Subacute 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 Primary hypertension Unspecified essential hypertension S/P reverse total shoulder arthroplasty, right [facility] encounter [facility]* Diagnosis Dyskinesia, tardive- Primary Subacute 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 documented in this encounter [facility]* Diagnosis Tardive dyskinesia- Primary Subacute 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 Movement 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 Primary hypertension Unspecified essential hypertension [facility] encounter [facility]* Diagnosis Movement disorder- Primary 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 Anxiety Anxiety state, unspecified Tardive dyskinesia Subacute 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 SIADH (syndrome of inappropriate ADH production) Other disorders of neurohypophysis documented [facility] encounter [facility]* Diagnosis Primary hypertension- Primary Unspecified essential hypertension Anxiety Anxiety state, unspecified Tardive dyskinesia Subacute 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 Movement 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 documented [facility] encounter [facility]* Diagnosis Closed fracture of tuft of distal phalanx of left ring finger- Primary Closed fracture of tuft of distal phalanx of left middle finger Movement 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 Tardive dyskinesia Subacute 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 documented [facility] this encounter [facility]* Diagnosis Acquired hypothyroidism- Primary Unspecified hypothyroidism Movement 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 Other History general Narrative - Reported* Type Description Date Medical History hypothyroidism Medical History anxiety and depression 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 Surgical History tubal revision 1984 Surgical History HIP FRACTURE 02/2020 Surgical History COLONSCOPY 2020 Surgical History RECTAL PROLAPSE 12/2020 Surgical History right reverse total shoulder 20 22 Hospitalization History SEE ABOVE Hospitalization History RECTAL PROLAPSE 12/2020 [employer] Other InstructionsNot on filedocumented in this encounter [facility]Not on filedocumented in this encounter [facility]ructionsNot on filedocumented in this encounter [facility]ructionsNot on filedocumented in this encounter [facility] Summary Purpose Family History No Family [...] Unknown grandparent Unknown sister Unknown Advance Directives No Advanced Directives Records Found Advance Directive Response Recorded Date/ Time Advance Directives No May 8:49am Advance Directive Response Recorded Date/ Time Advance Directives No May 7:49am Date Activated Date Inactivated Comments 05/18/2022 5:36 [...] t otal replacement of right shoulder joint [id number] Chief Complaint OP SP RT SHOULDER PA IN CONCERN M25.511 Z96.611 Shoulder pain T84.498A Reason for Visit 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 [id number] Chief Complaint OP SP RT SHOULDER PA IN CONCERN M25.511 Z96.611 Shoulder pain T84.498A Shoulder pain Shoulder pain Reason for Visit 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 [id number] History of revision of total shoulder arthroplasty [...] orthopedic devices, implant February 24, 2024 9:13am Chief Complaint Admit Date Z96.619 - Presence of unspecified artifi cial shoul March 31, 2024 10:56am 6 WEEKS March 31, 2024 11:51am 9 WEEKS June 01, 2024 11:40am Reason for Visit Admit Date History of reverse total rep lacement of right shoulder joint March 31, 2024 11:51am History of revision of total shoulder ar throplasty March 31, 2024 11:51am Other mechanical complicatio n of other internal orthopedic devices, implant March 31, 2024 11:51am Right knee pain March 31, 2024 11:51am History of reverse total rep lacement of right shoulder joint June 01, 2024 11:40am History of revision of total shoulder ar throplasty June 01, 2024 11:40am Other mechanical complicatio n of other internal orthopedic devices, implant June 01, 2024 11:40am Right knee pain June 01, 2024 11:40am Chief Complaint Admit Date 9 WEEKS June 01, 2024 11:40am M25.561 - Pain in right knee July 02, 2024 10:57am OP SP RT KNEE PAIN NX July 02, 2024 1 :32pm Reason for Visit Admit Date History of reverse total rep lacement of right shoulder joint June 01, 2024 11:40am History of revision of total shoulder ar throplasty June 01, 2024 11:40am Other mechanical complicatio n of other internal orthopedic devices, implant June 01, 2024 11:40am Right knee pain June 01, 2024 11:40am Reason for Visit Admit Date History of reverse total rep lacement of right shoulder joint June 01, 2024 11:40am History of revision of total shoulder ar throplasty June 01, 2024 11:40am Other mechanical complicatio n of other internal orthopedic devices, implant June 01, 2024 11:40am Right knee pain June 01, 2024 11:40am Arthritis of right knee July 02, 2024 1:32pm Chief Complaint Admit Date 9 WEEKS June 01, 2024 11:40am M25.561 - Pain in right knee July 02, 2024 10:57am OP SP RT KNEE PAIN NX July 02, 2024 1 :32pm RT KNEE DUROLANE INJ July 21, 2024 8:3 0am Reason for Visit Admit Date History of reverse total rep lacement of right shoulder joint June 01, 2024 11:40am History of revision of total shoulder ar throplasty June 01, 2024 11:40am Other mechanical complicatio n of other internal orthopedic devices, implant June 01, 2024 11:40am Right knee pain June 01, 2024 11:40am Arthritis of right knee July 02, 2024 1:32pm Arthritis of right knee July 21, 2024 8:30am Chief Complaint Admit Date 9 WEEKS June 01, 2024 11:40am M25.561 - Pain in right knee July 02, 2024 10:57am OP SP RT KNEE PAIN NX July 02, 2024 1 :32pm RT KNEE DUROLANE INJ July 21, 2024 8:3 0am Z96.619 - Presence of unspecified artifi cial shoul August 10, 2024 8:47am 10 WEEKS August 10, 2024 11: 19am Reason for Visit Admit Date History of reverse total rep lacement of right shoulder joint June 01, 2024 11:40am History of revision of total shoulder ar throplasty June 01, 2024 11:40am Other mechanical complicatio n of other internal orthopedic devices, implant June 01, 2024 11:40am Right knee pain June 01, 2024 11:40am Arthritis of right knee July 02, 2024 1:32pm Arthritis of right knee July 21, 2024 8:30am History of reverse total rep lacement of right shoulder joint August 10, 2024 11:19am History of revision of total shoulder ar throplasty August 10, 2024 11:19am Other mechanical complicatio n of other internal orthopedic devices, implant August 10, 2024 11:19am Additional Source Comments INFORMATION SOURCE (unrecogn ized section and content) DATE CREATED AUTHOR 01/14/2020 [facility] DATE CREATED AUTHOR AUTHOR'S ORGANIZ ATION 02/23/2021 [facility] DATE CREATED AUTHOR AUTHOR'S ORGANIZ ATION 04/12/[address] [facility] DATE CREATED AUTHOR AUTHOR'S ORGANIZ ATION 09/26/2021 [facility] DATE CREATED AUTHOR AUTHOR'S ORGANIZ ATION 06/06/2022 [facility] DATE CREATED AUTHOR AUTHOR'S ORGANIZ ATION 09/11/2023 [facility] DATE CREATED AUTHOR AUTHOR'S ORGANIZ ATION 08/09/2024 [facility] DATE CREATED AUTHOR AUTHOR'S ORGANIZ ATION 08/13/2024 [facility] DATE CREATED AUTHOR AUTHOR'S ORGANIZ ATION 08/21/2024 [facility] DATE CREATED AUTHOR AUTHOR'S ORGANIZ ATION 11/05/2024 [facility] EPIC REASON FOR VISIT (unrecogniz ed section and content) Reason Comments Insurance Authorization Reason Comments Follow Up Reason Onset Date Comments ACM MOHINDER RN 06/28/2023 Medication Ad herence review per request of payer Reason Comments Thyroid Problem Follow-up Reason Comments Medication Problem Care Teams (unrecognized sec tion and content) Team Status: Active Member Role Status Dates Alexey Polo DO Primary Care Provider Active Team Status: Inactive Member Role Status Dates Alexey Polo DO Primary Care Provider Active Start: March 31, 2024 End: March 31, 2024 Nickolas Hawthorne DO Attending Provider Active St art: March 31, 2024 End: March 31, 2024 Team Status: Inactive Member Role Status Dates Alexey Polo DO Primary Care Provider Active Start: June 01, 2024 End: June 01, 2024 Nickolas Hawthorne DO Attending Provider Active St art: June 01, 2024 End: June 01, 2024 Team Status: Active Member Role Status [...] Alexey Polo DO Primary Care Provider Active Dissolver Operator Relationship Specialty Start Date End Date Esteban Garza [address] [place] [address] PCP - General Family Practice 07/21/18 Dissolver Operator Relationship Specialty Start Date End Date Esteban Garza [address] [place] [address] PCP - General Family Medicine 07/21/18 Dissolver Operator Relationship Specialty Start Date End Date Esteban Garza [address] [place] [address] PCP - General Family Medicine 07/21/18 Dissolver Operator Relationship Specialty Start Date End Date Esteban Garza [address] [place] [address] PCP - General Family Medicine 07/21/18 Team Status: Inactive Member Role Status Dates Alexey Polo DO Primary Care Provider Active Start: January 23, 2024 End: January 23, 2024 Stevenson Corbin MD Attending Provider Active Star t: January 23, 2024 End: January 23, 2024 Team Status: Inactive Member Role Status Dates Alexey Polo DO Primary Care Provider Active Start: January 29, 2024 End: January 29, 2024 Nickolas Hawthorne DO Attending Provider Active St art: January 29, 2024 End: January 29, 2024 Team Status: Active Member Role Status Dates Alexey Polo DO Primary Care Provider Active Start: January 29, 2024 Nickolas Hawthorne DO Attending Provider Active St art: January 29, 2024 Team Status: Inactive Member Role Status [...] February 24, 2024 End: February 24, 2024 Dissolver Operator Relationship Specialty Start Date End Date Alexey Polo DO [address] [place] [address] PCP - [facility] Family Medicine 03/27/22 Dissolver Operator Relationship Specialty Start Date End Date Esteban Garza MD [address] [place] [id number] PCP - [facility] Medicine 03/24/24 Dissolver Operator Relationship Specialty Start Date End Date Esteban Garza MD [address] [place] [id number] PCP - General Family Medicine 03/24/24 Dissolver Operator Relationship Specialty Start Date End Date Alexey Polo DO [address] [place] [address] PCP - General Family Medicine 03/27/22 Team Status: Active Member Role Status Dates Alexey Polo DO Primary Care Provider Active Start: July 02, 2024 Nickolas Hawthorne DO Attending Provider Active St art: July 02, 2024 Team Status: Inactive Member Role Status Dates Alexey Polo DO Primary Care Provider Active Start: July 02, 2024 End: July 02, 2024 Nickolas Hawthorne DO Attending Provider Active St art: July 02, 2024 End: July 02, 2024 Dissolver Operator Relationship Specialty Start Date End Date Alexey Polo DO [address], [place] [address] PCP - General Family Medicine 03/27/22 Team Status: Inactive Member Role Status Dates Alexey Polo DO Primary Care Provider Active Start: July 21, 2024 End: July 21, 2024 Nickolas Hawthorne , Attending Provider Active St art: July 21, 2024 End: July 21, 2024 Team Status: Active Member Role Status Dates Alexey Polo DO Primary Care Provider Active Start: August 10, 2024 Nickolas Hawthorne , Attending Provider Active St art: August 10, 2024 Team Status: Inactive Member Role Status Dates Alexey Polo DO Primary Care Provider Active Start: August 10, 2024 End: August 10, 2024 Nickolas Hawthorne , Attending Provider Active St art: August 10, 2024 End: August 10, 2024 Dissolver Operator Relationship Specialty Start Date End Date Esteban Garza MD [address] [place] [address] PCP - General Family Medicine 07/21/18 Dissolver Operator Relationship Specialty Start Date End Date Alexey Polo DO [address], [place] [address] PCP - General Family Medicine 03/27/22 Dissolver Operator Relationship Specialty Start Date End Date Alexey Polo DO [address], [place] [address] PCP - General Family Medicine 03/27/22 Dissolver Operator Relationship Specialty Start Date End Date Esteban Garza MD [address] [place] [address] PCP - General Family Medicine 03/24/24 Dissolver Operator Relationship Specialty Start Date End Date Esteban Garza MD [address] [place] [address] PCP - General Family Medicine 03/24/24 Source Comments (unrecognize d section and content) In the event this informatio n is protected by the Federal Confidentiality of Alcohol and Drug Abuse Patient Records regulations: The Federal rules restrict any use of the information to criminally investigate or prosecute any alcohol or drug abuse patient.[facility] Center[facility] the event this information is protected by the Federal Confidentiality of Alcohol and Drug Abuse Patient Records regulations: The Federal rules restrict any use of the information to criminally investigate or prosecute any alcohol or drug abuse patient.[facility] CenterIn the event this information is protected by the Federal Confidentiality of Alcohol and Drug Abuse Patient Records regulations: The Federal rules restrict any use of the information to criminally investigate or prosecute any alcohol or drug abuse patient.[facility] CenterIn the event this information is protected by the Federal Confidentiality of Alcohol and Drug Abuse Patient Records regulations: The Federal rules restrict any use of the information to criminally investigate or prosecute any alcohol or drug abuse patient.[facility] CenterIn the event this information is protected by the Federal Confidentiality of Alcohol and Drug Abuse Patient Records regulations: The Federal rules restrict any use of the information to criminally investigate or prosecute any alcohol or drug abuse patient.[facility] Goals (unrecognized section and content) [...] PRIMARY CLINICAL RECORDS. [facility] [employer] [facility]. provides no warranty or guarantee of the accuracy or completeness of information in this document.
[2024-12-02 01:09] VITALS: O2SAT 96
== END 2024-12-02 01:11 | disposition home or self-care (01) ==
PROVIDERS: Emergency Provider Emergency Medicine; PCP Family Medicine
DX: M25.561 Pain in right knee (principal); M17.11 Unilateral primary osteoarthritis, right knee
CPT/HCPCS: 73562; 99283

== ENCOUNTER 2025-01-25 12:28 | Outpatient (REF) | payer MEDICARE, MEDICAID, SELFPAY ==
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
--- OUTSIDE RECORDS SUMMARY | 2025-01-25 12:33 | XMS_ITS | Clinical Summary ---
Author Organization [facility] Address [address] [place] [address] Care Team Providers Care Nurse Advisor Name Role Phone Esteban Slater MD Primary Care Provider [phone] Allergies Active Allergy Reactions Criticality Noted Date [...] original vaccine, a ge 12+ yr, monovalent ([employer] [facility]) 03/26/2021,07/14/2020,06/23/2020 diphtheria tetanus pertussis (DTP) vaccine [...] Medical History Relation Comments Heart Father of [place] Leukemia Father actually lymphom a Cancer Maternal [...] is lower risk 8 05/14/2023 Data from: https://www.neighborhoodatlas.medicine.[facility].edu/. Last address used for calculation [address] [facility] 05/14/2023 Comments No Sex and Gender [...] Directive Discussion 04/15/2024 Medicare Advantage Annual [facility] Visit 04/15/2024 Covid-19 Vaccine (6 2024-2 6 season) 2024 09/27/2022, 11/29/2021, 03/26/2021, Additional history exists Influenza Vaccine (#1) 2024 , 12/19/2019, 12/15/2019, Additional history exists Diabetes Screening 05/19/2025 05/19/2022, 1 06/09/2021, 04/04/2022, Additional history exists RSV Vaccine (1 - 1-dose 75+ series) 2030 DTaP,Tdap,Td Vaccine (3 - Td or Tdap) 12/28/2030 12/28/2020, 06/28/2020 Shingrix Vaccine Completed 04/11/2020, , 02/25/2019, Additional history exists Insurance [facility] MEDICARE ADVANTAGE PPO Care Teams Nurse Advisor Relationship Specialty Start Date End Date Esteban Slater MD [address] [place] [address] PCP - General Family Medicine 07/21/18
--- OUTSIDE RECORDS SUMMARY | 2025-01-25 12:33 | XMS_ITS | Encounter Summary ---
Author Organization [facility] Address [id number] [address] [place] [address] Care Team Providers Care Grinder Set Up Operator Jig Name Role Phone Alexey Connor Primary Care Provider [phone] Encounter Details Date Type Department Care Team (Late st Contact Info) Description 12/25/2021 Orders Only [facility] - Family Medicine [address] [place] [address] External, Scanning Provider Social History Tobacco Use [...] Problems Recent Progress Patient-Stated? Author go to [place] for therapy General Yes Ronit Sorensen LSW Note: Evaluation of progress towards goal: will DC from ED to SNF upon arrangements Long-Term Goals General Yes Amparo Nix LSW Note: Evaluation of progress towards goal: return to [facility] documented as of this encounter Procedures [...] documented as of this encounter Care Teams Grinder Set Up Operator Jig Relationship Specialty Start Date End Date Alexey Connor DO [address] [facility], [place] [address] PCP - General Family Medicine 03/27/22 documented as of this encounter
--- OUTSIDE RECORDS SUMMARY | 2025-01-25 12:33 | XMS_ITS | Encounter Summary ---
Author Organization [facility] Address [address] [place] [address] Phone Care Team Providers Care Display Fabricator Name Role Phone Alexey Connor DO Primary Care Provider Encounter Details Date Type Department Care Team (Late st Contact Info) Description 07/03/2020 Orders Only [facility] [address] [place] [address] Conversion, Onbase Social History Tobacco Use Types [...] on filedocumented in this encounter Care Teams Display Fabricator Relationship Specialty Start Date End Date Alexey Connor DO PCP - General 04/15/99 documented as of this encounter
--- OUTSIDE RECORDS SUMMARY | 2025-01-25 12:33 | XMS_ITS | Encounter Summary ---
Author Organization [facility] Address [address] [place] [address] Care Team Providers Care Heating Worker Name Role Phone Esteban Slater MD Primary Care Provider [phone] Source Comments In the event this information is protected by the Federal Confidentiality of Alcohol and Drug AbusePatient Records regulations: The Federal rules restrict any use of the information to criminally investigate or prosecute any alcohol or drug abuse patient.[facility] Encounter Details Date Type Department Care Team (Late st Contact Info) Description 08/29/2020 Get Medical Advice Neurology [address] [place], [place] [id number] Tai Hinojosa MD [address] [place] [address] Non-Urgent Medical Question Social History Tobacco Use [...] N ot on file 03/20/2020 Data from: https://www.neighborhoodatlas.medicine.[facility]/. Last address used for calculation [...] on filedocumented in this encounter Care Teams Heating Worker Relationship Specialty Start Date End Date Esteban Slater MD [address] [place] [address] PCP - General Family Medicine 07/21/18 documented as of this encounter
--- OUTSIDE RECORDS SUMMARY | 2025-01-25 12:33 | XMS_ITS | Encounter Summary ---
Author Organization [facility] tem Address [id number] [address] [place] [address] Care Team Providers Care Inspector Assemblies And Installations Name Role Phone Alexey Connor Primary Care Provider [phone] Encounter Details Date Type Department Care Team (Late st Contact Info) Description 09/13/2022 [facility] [address] [place] [address] Samanta Roche, WINDSHIELD INSTALLER Hyponatremia Social History Tobacco Use Types Packs/Day [...] Problems Recent Progress Patient-Stated? Author go to [place] for therapy General Yes Ronit Sorensen LSW Note: Evaluation of progress towards goal: will DC from ED to SNF upon arrangements Long-Term Goals General Yes Amparo Nix, CAE ENGINEER Note: Evaluation of progress towards goal: return to [facility] documented as of this encounter Procedures [...] TRANSCRIBED RESULTS Blood 09/13/2022 us Edilma Yin TREE AND SHRUB TECHNICIAN-SENIOR BUSINESS CONSULTANT LAB BLOOD ORDERABLES Final Result MANUALLY TRANSCRIBED RESULTS documented in this encounter Visit Diagnoses Diagnosis Hyponatremia Hyposmolality and/or hyponatremia documented in this encounter Care Teams Inspector Assemblies And Installations Relationship Specialty Start Date End Date Alexey Connor DO [address] [place] [address] PCP - General Family Medicine 03/27/22 documented as of this encounter
--- OUTSIDE RECORDS SUMMARY | 2025-01-25 12:33 | XMS_ITS | Clinical Summary ---
Author Organization [employer] tem Address [id number] [address] 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 Rectal prolapse 02/04/2021 Hypo-osmolality and hyponatremia 12/23/2020 Leg swelling 12/22/2020 Closed fracture of neck of femur 06/16/2020 Pain of left hip joint 06/16/2020 Tardive dyskinesia Acid reflux Hyperlipidemia Resolved Problems Problem Noted Date Diagnosed Date Resolved Date COVID-19 07/04/2023 10/26/2024 Anemia 03/23/2022 12/07/2024 Pneumonia 08/17/2022 Chronic kidney disease 09/14 Overview (09/14/2022): patient denies Encounters Date Type Department Care Team Description 01/05/2025 Continuing Care [facility] - Family Medicine [address] [place] [address] Alexey Connor DO Right knee pain, unspecified chronicity (Primary Dx); Hypo-osmolality and hyponatremia; SIADH (syndrome of inappropriate ADH production); Primary hypertension; Movement disorder; Multifactorial gait disorder; Hyperlipidemia, unspecified hyperlipidemia type 12/04/2024 Continuing Care [facility] - Family Medicine [address] [place] [address] Alexey Connor DO Primary hypertension (Primary Dx); SIADH (syndrome of inappropriate ADH production); Acquired hypothyroidism; Hypoglycemia; Tardive dyskinesia; Iron deficiency anemia, unspecified iron deficiency anemia type; Multifactorial gait disorder 10/30/2024 Continuing Care [facility] - Family [facility] [address] [place] [address] Alexey Connor, Closed fracture of tuft of distal phalanx of left ring finger (Primary Dx); Closed fracture of tuft of distal phalanx of left middle finger; Movement disorder; Tardive dyskinesia from Last 3 Months Immunizations Immunization Administration [...] Sign Reading Time Taken Comments Blood Pressure 102/56 01/05/2025 10:58 PM EDT Pulse 61 01/05/2025 10:58 PM EDT Temperature 36.6 C (97.8 F) 01/05/2025 10:58 PM EDT Respiratory Rate 18 01/05/2025 10:58 PM EDT Oxygen Saturation 94% 01/05/2025 10:58 PM EDT Inhaled Oxygen Concentration - - Weight 44.2 kg (97 lb 6.4 oz) 01/05/2025 10:58 P M EDT Height 160 cm (5' 3 ) 08/26/2023 10:[address] ated Body Mass Index 17.25 08/26/2023 10:10 AM EDT Plan of Treatment Health Maintenance Due Date Last Done Comments Depression Screening 1967 Fall Risk Screening 2020 Tobacco Screening 09/26/2024 09/27/2023 COVID-19 Vaccine (2024-05 6 season) 2024 09/27/2022, 11/29/2021, 03/26/2021, Additional history exists Influenza Vaccine 12/14/2024 01/10/2021, , 12/15/2019, Additional history exists Adult BMI Screening 01/05/2026 01/05/2025 Colonoscopy 11/15/2030 11/15/2020, 11/15/2020 DTaP,Tdap and Td Vaccines (3 - Td or Tdap) 12/28/2030 12/28/2020, 06/28/2020 Zoster (Shingles) Vaccine Completed 2019, 10/28/2019, 02/25/2019, Additional history exists Goals Goal Patient Goal Type Associated Problems Recent Progress Patient-Stated? Author go to [place] for therapy General Yes Ronit Sorensen LSW Note: Evaluation of progress towards goal: will DC from ED to SNF upon arrangements Long-Term Goals General Yes Amparo Nix LSW Note: Evaluation of progress towards goal: return to [facility] Medical Devices Implanted Type Area Agribusiness Professor Device Identifier Shelf Expiration Date Model / Serial / Lot Mesh Pco Vntrl Ptch 4.6cm Rpl [id number] - Sna - [id number] Implanted:Qty: 1 on 01/29/2020 by Tai Del Rosario MD at [facility] Mesh N/A: Abdomen ClearFlow [facility] 06/12/2024 [id number] / NA / [id number] Procedures Procedure Name Priority Date/Time Associated Diagnosis [...] will be visible to you in MyChart.* us Reilly Montoya MD IMG OR IMG ORDERABLES Final Res ult from Last 3 Months or Most Recently Relevant to Health Maintenance Insurance MEDICAID [place] [employer] MEDICARE Advance Directives * Full Code (Latest Code Status on File) Date Activated Date Inactivated Comments 05/18/2022 5:36 PM 05/19/2022 9:18 PM * Full Code Date Activated Date Inactivated Comments 02/04/2021 10:29 AM 02/06/2021 4:12 PM * DNR Comfort Care Arrest (DNR-CCA) [place] Date Activated Date Inactivated Comments 01/07/2021 4:37 PM 01/08/2021 7:11 PM * Full Code Date Activated Date Inactivated Comments 12/23/2020 7:31 AM 12/26/2020 12:12 PM Care Teams Environmental Resource Specialist Relationship Specialty Start Date End Date Alexey Connor DO [address] [place] [address] PCP - General Family Medicine 03/27/22
--- OUTSIDE RECORDS SUMMARY | 2025-01-25 12:33 | XMS_ITS | Encounter Summary ---
Author Organization [facility] Address [address] [place] [address] Care Team Providers Care Pathology Collector Name Role Phone Esteban Slater MD Primary Care Provider [phone] Source Comments In the event this information is protected by the Federal Confidentiality of Alcohol and Drug AbusePatient Records regulations: The Federal rules restrict any use of the information to criminally investigate or prosecute any alcohol or drug abuse patient.[facility] Encounter Details Date Type Department Care Team (Late st Contact Info) Description 11/25/2020 Get Medical Advice Neurology [address] [place], [place] [phone] Tai Hinojosa MD [address] [place] [address] RE: Non-Urgent Medical Question Social History Tobacco [...] N ot on file 03/20/2020 Data from: https://www.neighborhoodatlas.medicine.[facility]/. Last address used for calculation Not [...] on filedocumented in this encounter Care Teams Pathology Collector Relationship Specialty Start Date End Date Esteban Slater MD [address] [place] [address] PCP - General Family Medicine 07/21/18 documented as of this encounter
--- OUTSIDE RECORDS SUMMARY | 2025-01-25 12:33 | XMS_ITS | Encounter Summary ---
Author Organization [facility] [facility] tem Address [id number] [address] [place] [address] Care Team Providers Care Thread Tool Grinder Set Up Operator Name Role Phone Alexey Connor Primary Care Provider [phone] Encounter Details Date Type Department Care Team (Late st Contact Info) Description 05/31/2023 [facility] [address] [place] [address] Mirza, Janina, SERVOMECHANISM ASSEMBLER Social History Tobacco Use Types Packs/Day Years [...] Problems Recent Progress Patient-Stated? Author go to [place] for therapy General Yes Ronit Sorensen LSW Note: Evaluation of progress towards goal: will DC from ED to SNF upon arrangements Long-Term Goals General Yes Amparo Nix LSW Note: Evaluation of progress towards goal: return to [facility] documented as of this encounter Visit Diagnoses Not on filedocumented in this encounter Care Teams Thread Tool Grinder Set Up Operator Relationship Specialty Start Date End Date Alexey Connor DO [address] [facility], [place] [address] PCP - General Family Medicine 03/27/22 documented as of this encounter
--- OUTSIDE RECORDS SUMMARY | 2025-01-25 12:33 | XMS_ITS | Encounter Summary ---
Author Organization [facility] tem Address [id number] [address] [place] [address] Care Team Providers Care Administrator Of Home Health Name Role Phone Alexey Connor Primary Care Provider [phone] Encounter Details Date Type Department Care Team (Late st Contact Info) Description 10/23/2022 [facility] [address] [place] [address] External, Scanning Provider Social History Tobacco Use [...] Problems Recent Progress Patient-Stated? Author go to [place] for therapy General Yes Ronit Sorensen LSW Note: Evaluation of progress towards goal: will DC from ED to SNF upon arrangements Long-Term Goals General Yes Amparo Nix LSW Note: Evaluation of progress towards goal: return to [facility] documented as of this encounter Procedures [...] on filedocumented in this encounter Care Teams Administrator Of Home Health Relationship Specialty Start Date End Date Alexey Connor DO [address] [facility], [place] [address] PCP - General Family Medicine 03/27/22 documented as of this encounter
--- OUTSIDE RECORDS SUMMARY | 2025-01-25 12:33 | XMS_ITS | Encounter Summary ---
Author Organization [facility] Address [address] [place] [address] Care Team Providers Care Vp Rheumatology Name Role Phone Esteban Slater MD Primary Care Provider [phone] Source Comments In the event this information is protected by the Federal Confidentiality of Alcohol and Drug AbusePatient Records regulations: The Federal rules restrict any use of the information to criminally investigate or prosecute any alcohol or drug abuse patient.[facility] Encounter Details Date Type Department Care Team (Late st Contact Info) Description 12/17/2023 Patient Msg [address] [place] [address] [place] [address] Provider, Ccf CNR Virtual Shared Medical Appointment [facility] - December 2023 Social History Tobacco Use [...] is lower risk 8 05/14/2023 Data from: https://www.neighborhoodatlas.medicine.[facility].edu/. Last address used for calculation [address] [facility] 05/14/2023 Comments No Sex and Gender Information Value Date Recorded Sex Assigned at Not on file Legal Sex Female 9:36 AM EST Gender Identity Not on file Sexual Orientation Not on file documented as of this encounter Plan of Treatment Not on file documented as of this encounter Visit Diagnoses Not on filedocumented in this encounter Care Teams Vp Rheumatology Relationship Specialty Start Date End Date Esteban Slater MD [address] [place] [address] PCP - General Family Medicine 07/21/18 documented as of this encounter
--- OUTSIDE RECORDS SUMMARY | 2025-01-25 12:33 | XMS_ITS | Encounter Summary ---
Author Organization [facility] Address [id number] [address] [place] [address] Care Team Providers Care Dairy Equipment Mechanic Name Role Phone Alexey Connor Primary Care Provider [phone] Encounter Details Date Type Department Care Team (Late st Contact Info) Description 02/13/2024 Orders Only [facility] Internal [facility] - Family Medicine [address] [place] [address] Ref Prov, [place] [address] Social History Tobacco Use Types Packs/Day Years [...] Problems Recent Progress Patient-Stated? Author go to [place] for therapy General Yes Ronit Sorensen LSW Note: Evaluation of progress towards goal: will DC from ED to SNF upon arrangements Long-Term Goals General Yes Amparo Nix LSW Note: Evaluation of progress towards goal: return to [facility] documented as of this encounter Procedures [...] ORDERABLES Catia l Result Performing Organization Address [facility] de Phone Number MANUALLY TRANSCRIBED RESULTS * Multiple labs (02/12/2024 2:55 PM EDT) us Not In System Ref Prov [place] IMAGING Final Res ult Performing Organization Address [facility] de Phone Number MANUALLY TRANSCRIBED RESULTS * CBC W Auto Diff Bld (02/12/2024 8:59 AM EDT) us Not In System Ref Prov LAB BLOOD ORDERABLES Catia l Result Performing Organization Address [facility] de Phone Number MANUALLY TRANSCRIBED RESULTS documented in this encounter Visit Diagnoses Not on filedocumented in this encounter Care Teams Dairy Equipment Mechanic Relationship Specialty Start Date End Date Alexey Connor DO [address] [place] [address] PCP - General Family Medicine 03/27/22 documented as of this encounter
--- OUTSIDE RECORDS SUMMARY | 2025-01-25 12:33 | XMS_ITS | Encounter Summary ---
Author Organization [employer] tem Address [id number] [address] [place] [address] Care Team Providers Care Sales And Marketing Engineer Name Role Phone Alexey Connor DO Primary Care Provider + [phone] Reason for Referral * Consultation (Routine) - Closed Specialty Diagnoses / Procedures Referred By Contac t Referred To Contact Cardiology Diagnoses Abnormal stress test Alexey Connor DO [address], [place] [address] Phone: tel: fax: Efren Jordan MD [address] [place] [phone] Phone: tel: fax: Referral ID Status Reason Start Date Expiration Date V isits Requested Visits Authorized [id number] Closed Specialty Services Required 09/04/2023 09/03/2024 1 1 Encounter Details Date Type Department Care Team (Late st Contact Info) Description 09/04/2023 Orders Only [facility] Internal Medicine - Family Medicine [address] [place] [address] Alexey Connor DO [address], [place] [address] Abnormal stress test (Primary Dx) Social History [...] Diagnoses Order Schedule [facility] - [place], [place] Outpatient Referral Routine Abnormal stress test 1 Occurrences starting 09/04/2023 until 09/03/2024 documented as of this encounter Goals Goal Patient Goal Type Associated Problems Recent Progress Patient-Stated? Author go to [place] for therapy General Yes Ronit Sorensen LSW Note: Evaluation of progress towards goal: will DC from ED to SNF upon arrangements Long-Term Goals General Yes Amparo Nix LSW Note: Evaluation of progress towards goal: return to [facility] documented as of this encounter Visit Diagnoses Diagnosis Abnormal stress test- Primary Other nonspecific abnormal cardiovascular system function study documented in this encounter Care Teams Sales And Marketing Engineer Relationship Specialty Start Date End Date Alexey Connor DO [address], [facility] [place] [address] PCP - General Family Medicine 03/27/22 documented as of this encounter
--- OUTSIDE RECORDS SUMMARY | 2025-01-25 12:33 | XMS_ITS | Encounter Summary ---
Author Organization [employer] tem Address [id number] [address] [place] [address] Care Team Providers Care Lumber Sorter Name Role Phone SuzetteAlexey gtz Primary Care Provider + [phone] Encounter Details Date Type Department Care Team (Late st Contact Info) Description 09/04/2023 [facility]phone [facility] Medicine [address] [place] [address] Janina Blue CMA Social History Tobacco Use [...] Problems Recent Progress Patient-Stated? Author go to [place] for therapy General Yes Ronit Sorensen LSW Note: Evaluation of progress towards goal: will DC from ED to SNF upon arrangements Long-Term Goals General Yes Amparo Nix LSW Note: Evaluation of progress towards goal: return to [facility] documented as of this encounter Visit Diagnoses Not on filedocumented in this encounter Care Teams Lumber Sorter Relationship Specialty Start Date End Date Alexey Connor DO [address], [facility] [address] PCP - General Family Medicine 03/27/22 documented as of this encounter
--- OUTSIDE RECORDS SUMMARY | 2025-01-25 12:33 | XMS_ITS | Encounter Summary ---
Author Organization [facility] tem Address [id number] [address] [place] [address] Care Team Providers Care Dye Maker Name Role Phone Alexey Connor Primary Care Provider + [phone] Encounter Details Date Type Department Care Team (Late st Contact Info) Description 05/13/2023 Orders Only [facility] Internal Medicine - Family Medicine [address] [place] [address] External, Scanning Provider Social History Tobacco Use [...] Problems Recent Progress Patient-Stated? Author go to [place] for therapy General Yes Ronit Sorensen LSW Note: Evaluation of progress towards goal: will DC from ED to SNF upon arrangements Long-Term Goals General Yes Amparo Nix LSW Note: Evaluation of progress towards goal: return to [facility] documented as of this encounter Visit Diagnoses Not on filedocumented in this encounter Care Teams Dye Maker Relationship Specialty Start Date End Date Alexey Connor DO [address] [facility], [place] [address] PCP - General Family Medicine 03/27/22 documented as of this encounter
--- OUTSIDE RECORDS SUMMARY | 2025-01-25 12:33 | XMS_ITS | Encounter Summary ---
Author Organization [facility] tem Address [id number] [address] [place] [address] Care Team Providers Care Clinical Biostatistician Name Role Phone Alexey Connor Primary Care Provider [phone] Encounter Details Date Type Department Care Team (Late st Contact Info) Description 06/09/2024 Orders Only [facility] Internal Medicine - Family Medicine [address] [place] [address] Ref Prov, [place] [address] Social History Tobacco Use Types Packs/Day Years [...] Problems Recent Progress Patient-Stated? Author go to [place] for therapy General Yes Ronit Sorensen LSW Note: Evaluation of progress towards goal: will DC from ED to SNF upon arrangements Long-Term Goals General Yes Amparo Nix LSW Note: Evaluation of progress towards goal: return to [facility] documented as of this encounter [...] on filedocumented in this encounter Care Teams Clinical Biostatistician Relationship Specialty Start Date End Date Alexey Connor DO [address], [place] [address] PCP - General Family Medicine 03/27/22 documented as of this encounter
--- OUTSIDE RECORDS SUMMARY | 2025-01-25 12:33 | XMS_ITS | Encounter Summary ---
Author Organization [facility] tem Address [id number] [address] [place] [address] Care Team Providers Care It Systems Manager Name Role Phone Alexey Connor Primary Care Provider [phone] Encounter Details Date Type Department Care Team (Late st Contact Info) Description 03/30/2022 Orders Only [facility] Internal Medicine - Family Medicine [address] [place] [address] External, Scanning Provider Social History Tobacco Use [...] Recent Progress Patient-Stated? Author go to [place] for therapy General Yes Ronit Sorensen LSW Note: Evaluation of progress towards goal: will DC from ED to SNF upon arrangements Long-Term Goals General Yes Amparo Nix LSW Note: Evaluation of progress towards goal: return to [facility] documented as of this encounter Procedures Procedure Name Priority Date/Time Associated Diagnosis Comments MULTIPLE LABS Routine 03/28/2022 documented in this encounter Results * Multiple labs (03/28/2022) 03/28/2022 us Scanning Provider External OK IMAGING Final Result MANUALLY TRANSCRIBED RESULTS documented in this encounter Visit Diagnoses Not on filedocumented in this encounter Additional Health Concerns Infection Onset Date Last Indicated Resolved Time COVID-19 Rule-Out 04/08/2022 04/08/2022 04/08/2022 11:12 PM EST documented as of this encounter Care Teams It Systems Manager Relationship Specialty Start Date End Date Alexey Connor DO [address] [place] [address] PCP - General Family Medicine 03/27/22 documented as of this encounter
--- OUTSIDE RECORDS SUMMARY | 2025-01-25 12:33 | XMS_ITS | Encounter Summary ---
Author Organization [facility] Address [address] [place] [address] Phone Care Team Providers Care Customer Support Coordinator Name Role Phone Alexey Connor DO Primary Care Provider Encounter Details Date Type Department Care Team (Late st Contact Info) Description 07/05/2020 Orders Only [facility] [address] [place] [address] Conversion, Onbase Social History Tobacco Use Types [...] on filedocumented in this encounter Care Teams Customer Support Coordinator Relationship Specialty Start Date End Date Alexey Connor DO PCP - General 04/15/99 documented as of this encounter
--- OUTSIDE RECORDS SUMMARY | 2025-01-25 12:33 | XMS_ITS | Encounter Summary ---
Author Organization [facility] Sy tem Address [facility] [id number] [address] [place] [address] Care Team Providers Care Campus Safety Officer Name Role Phone Alexey Connor Primary Care Provider + [phone] Encounter Details Date Type Department Care Team (Late st Contact Info) Description 05/20/2023 Orders Only [facility] Internal Medicine - Family Medicine [address] [place] [address] External, Scanning Provider Social History Tobacco Use [...] Problems Recent Progress Patient-Stated? Author go to [place] for therapy General Yes Ronit Sorensen LSW Note: Evaluation of progress towards goal: will DC from ED to SNF upon arrangements Long-Term Goals General Yes Amparo Nix LSW Note: Evaluation of progress towards goal: return to [facility] documented as of this encounter Visit Diagnoses Not on filedocumented in this encounter Care Teams Campus Safety Officer Relationship Specialty Start Date End Date Alexey Connor DO [address] [facility], [place] [address] PCP - General Family Medicine 03/27/22 documented as of this encounter
--- OUTSIDE RECORDS SUMMARY | 2025-01-25 12:33 | XMS_ITS | Encounter Summary ---
Author Organization [facility] tem Address [facility] [place][id number] [address] [place] [address] Care Team Providers Care Social Media Marketer Name Role Phone Alexey Connor Primary Care Provider [phone] Encounter Details Date Type Department Care Team (Late st Contact Info) Description 10/25/2023 Orders Only [facility] Internal Medicine - Family Medicine [address] [place] [address] Ref Prov, [place] [address] Social History Tobacco Use Types Packs/Day Years [...] Recent Progress Patient-Stated? Author go to [place] for therapy General Yes Ronit Sorensen LSW Note: Evaluation of progress towards goal: will DC from ED to SNF upon arrangements Long-Term Goals General Yes Amparo Nix LSW Note: Evaluation of progress towards goal: return to [facility] documented as of this encounter Procedures [...] on filedocumented in this encounter Care Teams Social Media Marketer Relationship Specialty Start Date End Date Alexey Connor DO [address] [place] [address] PCP - General Family Medicine 03/27/22 documented as of this encounter
--- OUTSIDE RECORDS SUMMARY | 2025-01-25 12:33 | XMS_ITS | Encounter Summary ---
Author Organization [facility] Address [address] [place] [address] Care Team Providers Care Field Artillery Cannoneer Name Role Phone Esteban Slater MD Primary Care Provider [phone] Source Comments In the event this information is protected by the Federal Confidentiality of Alcohol and Drug AbusePatient Records regulations: The Federal rules restrict any use of the information to criminally investigate or prosecute any alcohol or drug abuse patient.[facility] Encounter Details Date Type Department Care Team (Late st Contact Info) Description 08/04/2018 Patient Msg Urology [address] [place] [address] Provider, Jacquelyn Primidone Social History [...] on filedocumented in this encounter Care Teams Field Artillery Cannoneer Relationship Specialty Start Date End Date Esteban Slater MD [address] [place] [address] PCP - General Family Medicine 07/21/18 documented as of this encounter
--- OUTSIDE RECORDS SUMMARY | 2025-01-25 12:33 | XMS_ITS | Encounter Summary ---
Author Organization [facility] tem Address [id number] [address] [place] [address] Care Team Providers Care Smooth Plater Name Role Phone Alexey Connor Primary Care Provider [phone] Encounter Details Date Type Department Care Team (Late st Contact Info) Description 02/28/2022 Orders Only [facility] Internal Medicine - Family Medicine [address] [place] [address] External, Scanning Provider Social History Tobacco Use [...] Problems Recent Progress Patient-Stated? Author go to [place] for therapy General Yes Ronit Sorensen LSW Note: Evaluation of progress towards goal: will DC from ED to SNF upon arrangements Long-Term Goals General Yes Amparo Nix LSW Note: Evaluation of progress towards goal: return to [facility] documented as of this encounter Procedures [...] documented as of this encounter Care Teams Smooth Plater Relationship Specialty Start Date End Date Alexey Connor DO [address], [place] [address] PCP - General Family Medicine 03/27/22 documented as of this encounter
--- OUTSIDE RECORDS SUMMARY | 2025-01-25 12:33 | XMS_ITS | Clinical Summary ---
Author Organization [facility] Address [address] [place] [address] Care Team Providers Care Framing Carpenter Name Role Phone Alexey Connor DO Primary Care Provider [phone] Allergies Active Allergy Reactions Criticality Noted Date Comments Azithromycin 09/13/2021 Other reaction(s): Unknow Clarithromycin Nausea And Vomiting Low 02/03/2021 Erythromycin Other,Unknown Medium 07/23/2016 Erythromycin Base 10/09/2021 Other reaction(s): Unknown Reaction Hydrocodone-Acetaminophe n GI intolerance 03/24/2024 Medications atorvastatin (Lipitor) 40 mg tablet Take [...] mg 24 hr tabletIndicatio ns:Atherosclero sis of [place] coronary artery of [place] heart without angina pectoris Take 1 tablet (25 mg) by mouth in the morning. Do not crush or chew. 30 tablet 4 Active Additional Information Patient taking differently:25 mg oral Daily,Do not crush or chew. Given with 50mg for a total of 75 mg, Reported on 01/22/2025 carBAMazepine (TEGretol) 200 mg tablet Take 200 [...] down for the next 30 min. Active SUMAtriptan (Imitrex) 25 mg tablet Take 25 mg by mouth 1 (one) time if needed. 5 Active Active Problems Problem Noted Date Diagnosed Date Generalized muscle ache 01/22/2025 Witnessed apneic spells 04/06/2024 Status post total hip replacement, left 12/29/19 Aftercare following joint replacement surgery Hyperlipidemia 12/13/2023 GERD (gastroesophageal reflux disease) Traumatic arthritis of left hip 12/06/2023 Coronary artery disease invo lving [place] coronary artery of [place] heart without angina pectoris 09/18/2023 Benign hypertensive [...] disorder 03/23/2022 07/04/2023 Acquired hypothyroidism 03/23/2022 07/04/19 Anemia 03/23/2022 07/04/2023 Generalized anxiety disorder 03/23/2022 Generalized muscle weakness 03/23/2022 03/2 04/2023 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 Primary hypertension 03/23/2022 07/04/2023 Rectal prolapse 02/04/2021 07/04/2023 Chronic hyponatremia 12/23/2020 07/04/2023 Hypo-osmolality and hyponatremia 12/23/2020 Leg swelling 12/22/2020 07/04/2023 Pain of left hip joint 06/16/2020 Resolved Problems Problem Noted Date Diagnosed Date Resolved Date Abnormal stress test 09/18/2023 025 COVID-19 07/04/2023 07/04/2023 12/08/2023 Sepsis 07/04/2023 07/04/2023 12/08/2023 Closed fracture of neck of femur 06/16/2020 07/04/1912/08/2023 Encounters Date Type Department Care Team Description 01/22/2025 12:20 PM EDT Office Visit [facility] [address] [facility] [place] [address] Marline Sandoval MD Generalized muscle ache (Primary Dx); Coronary artery disease involving [place] coronary artery of [place] heart without angina pectoris; Primary hypertension; Pure hypercholesterolemia 12/31/2024 Telephone [facility] [address] [place] [facility] [place] [address] Aleida Wu MA 12/30/2024 Orders Only [facility] [address] [place] [facility] [place] [address] Aleida Wu MA Hyperlipidemia, unspecified hyperlipidemia type (Primary Dx) from Last 3 Months Family History Medical History Relation Name Comments Heart attack Father Hypertension Mother Stroke Mother Relation Name Status Comments Father Mother Social History Tobacco Use Types Packs/Day Years Used Date Smoking Tobacco: Former Cigarettes Smokeless Tobacco: Never Alcohol Use Standard Drinks/Week Comments Never 0 (1 standard drink = 0.6 oz pur e alcohol) [facility] Utilities Answer Date Recorded In the past 12 months has e electric, gas, oil, or water company [...] place to sleep or slept in a halfway (including now)? No 01/16/2024 Hunger Vital Sign [...] Heterosexual or Straight 04/2024 2:06 PM EDT Last Filed Vital Signs Vital Sign Reading Time Taken Comments Blood Pressure 114/62 01/22/2025 12:41 PM EDT Pulse 73 01/22/2025 12:41 PM EDT Temperature 36.5 C (97.7 F) 12/10/2023 6:15 AM EDT Respiratory Rate 18 12/10/2023 6:15 AM EDT Oxygen Saturation 94% 01/22/2025 12:41 PM EDT Inhaled Oxygen Concentration - - Weight 44.9 kg (99 lb) 08/07/2024 3:18 PM EDT Height 160 cm (5' 3 ) 01/22/2025 12:41 PM EDT Body Mass Index 17.54 08/07/2024 3:18 PM EDT Plan of Treatment Health Maintenance Due Date Last Done Comments CT Colonography 1955 Colonoscopy 1955 Colorectal Cancer Screening 1955 FIT-DNA 1955 FIT 1955 FOBT 1955 Medicare Annual Wellness (AWV) 1955 Sigmoidoscopy 1955 Mammogram 1995 Pneumococcal Vaccine: 50+ Years (3 of 3 - PCV20 or PCV21) 12/26/2023 12/25/2018, 11/20/2015 COVID-19 Vaccine ( season) 2024 09/27/2022, 11/29/2021, 03/26/2021, Additional history [...] this topic Medical Devices Implanted Type Area Diesel Mechanic Farm Device Identifier Shelf Expiration Date Model / Serial / Lot Screw,Bone,6. [id number] - [id number] Implanted:Qty : 1 on 12/06/2023 by Ernesto Kan MD at [facility] Screw Left: Hip [employer] [id number] 07/01/2032 [id number] / / [id number] Screw,Bone,Se lf-Tap,6.5x35 mm - [id number] Implanted:Qty : 1 on 12/06/2023 by Ernesto Kan MD at [facility] Screw Left: Hip [employer] [id number] 07/03/2033 6250-065-35 / / [id number] Screw,Bone,Se lf-Tap,6.5x30 mm - [id number] Implanted:Qty : 1 on 12/06/2023 by Ernesto Kan MD at [facility] Screw Left: Hip [employer] [id number] 07/25/2033 [id number] / / [id number] Screw,Bone,Se lf-Tap,6.5x20 mm - [id number] Implanted:Qty : 1 on 12/06/2023 by Ernesto Kan MD at [facility] Screw Left: Hip [employer] [id number] 05/16/2033 [id number] / / [id number] Acetabular System Shell Implanted:Qty : 1 on 12/06/2023 by Ernesto Kan MD at [facility] Total Joint Left: Hip [employer] [id number] 08/10/2033 [id number] / / [id number] Liner,G7,E1,4 0,F - [id number] Implanted:Qty : 1 on 12/06/2023 by Ernesto Kan MD at [facility] Total Joint Left: Hip [employer] [id number] 12/04/2026 [id number] / / [id number] Stem,Reduce,D istal,Stnd,9. 0 - [id number] Implanted:Qty : 1 on 12/06/2023 by Ernesto Kan MD at [facility] Total Joint Left: Hip [employer] [id number] 09/22/2032 [id number] / / [id number] Head,Biolox-D Mod,40mm - [id number] Implanted:Qty : 1 on 12/06/2023 by Ernesto Kan MD at [facility] Total Joint Left: Hip [employer] [id number] 09/18/2033 [id number] / / [id number] Sleeve,Biolox Option Type 1,-6 - [id number] Implanted:Qty : 1 on 12/06/2023 by Ernesto Kan MD at [facility] Total Joint Left: Hip [employer] [id number] 03/11/2033 [id number] / / [id number] Insurance [id number] [employer] MEDICARE MEDICAID [place] Advance Directives * Full Code (Latest Code Status on File) Date Activated Date Inactivated Comments 12/10/2023 1:02 PM 12/10/2023 7:42 PM * Full Code Date Activated Date Inactivated Comments 12/06/2023 1:47 PM 12/10/2023 1:02 PM Care Teams Framing Carpenter Relationship Specialty Start Date End Date Alexey Connor DO PCP - General Family Medicine 04/04/23
--- OUTSIDE RECORDS SUMMARY | 2025-01-25 12:33 | XMS_ITS | Encounter Summary ---
Author Organization [facility] [employer] Formerly [facility] tem Address [facility] [place]-[id number] [address] [place] [address] Care Team Providers Care Medical Fee Clerk Name Role Phone Alexey Connor DO Primary Care Provider [phone] Encounter Details Date Type Department Care Team (Late st Contact Info) Description 01/05/2025 Continuing Care [facility] Internal Medicine - Family Medicine [address] [place] [address] Alexey Connor DO [address], [facility] [address] Right knee pain, unspecified chronicity (Primary Dx); Hypo-osmolality and hyponatremia; SIADH (syndrome of inappropriate ADH production); Primary hypertension; Movement disorder; Multifactorial gait disorder; Hyperlipidemia, unspecified hyperlipidemia type Social History Tobacco Use Types Packs/Day Years [...] on file documented as of this encounter Last Filed [...] oz) 01/05/2025 10:58 P M EDT Height - - Body Mass Index 17.25 08/26/2023 10:10 AM EDT documented in this encounter Progress Notes * Alexey Connor, - 01/05/2025 11:59 PM EDT Patient Name: Melanie Espinoza Date of : 1955 Date of Service: 01/05/2025 [place] [facility] [place] of Visit: Subsequent Visit Subjective Melanie Espinoza is a 69 y.o. female seen today at [facility]-way facility for problem and monthly visit. Melanie was having right knee pain and so I was contacted about it and we started Biofreeze. She reports that it is doing much better with Biofreeze. It has really helped . She had labs done a few days ago by the gel coater and they looked pretty good. She has a follow up appointment with them. She continues to use clonazepam with benefit. Her movement disorder seems to be better with Austedo. She denies any other new concerns today. Staff reports that she never follows her fluid restriction. She he is aware that she should be restricting her fluid intake. Staff reports that it is her right to drink however much she wants. Allergies: Erythromycin and Clarithromycin Code Status: [facility] BP 102/56 Pulse 61 Temp 36.6 ??C (97.8 ??F) Resp 18 Wt 44.2 kg (97 lb 6.4 oz) SpO2 94% BMI 17.25 kg/m?? Physical Exam Vitals reviewed. HENT: Head: Normocephalic. Cardiovascular: Rate and Rhythm: Normal rate and regular rhythm. Pulses: Normal pulses. Heart sounds: Normal heart sounds. No murmur heard. Pulmonary: Effort: Pulmonary effort is normal. No respiratory distress. Breath sounds: Normal breath sounds. No wheezing, rhonchi or rales. Musculoskeletal: Right knee: Crepitus present. No swelling, deformity, effusion, erythema, ecchymosis or lacerations. Decreased range of motion. Tenderness present. Right lower leg: No edema. Left lower leg: No edema. Neurological: General: No focal deficit present. Mental Status: She is alert and oriented to person, place, and time. Gait: Gait abnormal (ambulating in wheelchair in unit). Psychiatric: Attention and Perception: Attention normal. Mood and Affect: Mood and affect normal. Speech: Speech normal. Behavior: Behavior normal. Thought Content: Thought content normal. Cognition and Memory: Cognition normal. Judgment: Judgment normal. Labs: T. Chol 164 HDL 58 Trig 64 LDL 94 AST 13 Summary / Assessment / Plan 1. Right knee pain, unspecified chronicity 2. Hypo-osmolality and hyponatremia 3. SIADH (syndrome of inappropriate ADH production) 4. Primary hypertension 5. Movement disorder 6. Multifactorial gait disorder 7. Hyperlipidemia, unspecified hyperlipidemia type Risks of noncompliance with fluid restriction discussed. Can cause more hyponatremia which can leadto seizures and possibly . The patient made aware. Continue Biofreeze for knee. She is deriving benefit. Follow up with specialists as directed. ELECTRONICALLY SIGNED BY: Alexey Connor DO documented in this encounter Plan of Treatment Not on file documented as of this encounter Goals Goal Patient Goal Type Associated Problems Recent Progress Patient-Stated? Author go to [place] for therapy General Yes Ronit Sorensen LSW Note: Evaluation of progress towards goal: will DC from ED to SNF upon arrangements Long-Term Goals General Yes Amparo Nix LSW Note: Evaluation of progress towards goal: return to [facility] documented as of this encounter Visit Diagnoses Diagnosis Right knee pain, unspecified chronicity- Primary Hypo-osmolality and hyponatremia SIADH (syndrome of inappropriate ADH production) Other disorders of neurohypophysis Primary hypertension Unspecified essential hypertension Movement 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 Abnormality of gait Hyperlipidemia, unspecified hyperlipidemia type documented in this encounter Care Teams Medical Fee Clerk Relationship Specialty Start Date End Date Alexey Connor DO [address], [facility] [address] PCP - General Family Medicine 03/27/22 documented as of this encounter
--- OUTSIDE RECORDS SUMMARY | 2025-01-25 12:33 | XMS_ITS | Encounter Summary ---
Author Organization [facility] Sys tem Address [facility] [id number] [address] [place] [address] Care Team Providers Care Conservation Biology Professor Name Role Phone Alexey Connor DO Primary Care Provider [phone] Encounter Details Date Type Department Care Team (Late st Contact Info) Description 05/29/2024 Orders Only [facility] Internal Medicine - Family Medicine [address] [place] [address] Alexey Connor DO [address], [facility] [place], [place] [id number] Social History Tobacco Use Types Packs/Day Years [...] Problems Recent Progress Patient-Stated? Author go to [place] for therapy General Yes Ronit Sorensen LSW Note: Evaluation of progress towards goal: will DC from ED to SNF upon arrangements Long-Term Goals General Yes Amparo Nix LSW Note: Evaluation of progress towards goal: return to [facility] documented as of this encounter Visit Diagnoses Not on filedocumented in this encounter Care Teams Conservation Biology Professor Relationship Specialty Start Date End Date Alexey Connor DO [address], [facility] [place] [address] PCP - General Family Medicine 03/27/22 documented as of this encounter
--- OUTSIDE RECORDS SUMMARY | 2025-01-25 12:33 | XMS_ITS | Encounter Summary ---
Author Organization [facility] Sys tem Address [facility] [place]-[id number] [address] [place] [address] Care Team Providers Care Band Presser Name Role Phone Alexey Connor DO Primary Care Provider [phone] Encounter Details Date Type Department Care Team (Late st Contact Info) Description 02/03/2024 Orders Only [facility] Internal Medicine - Family Medicine [address] [place] [address] Alexey Connor DO [address], [facility] [place], [place] [id number] Social History Tobacco Use Types Packs/Day Years [...] Recent Progress Patient-Stated? Author go to [place] for therapy General Yes Ronit Sorensen LSW Note: Evaluation of progress towards goal: will DC from ED to SNF upon arrangements Long-Term Goals General Yes Amparo Nix LSW Note: Evaluation of progress towards goal: return to [facility] documented as of this encounter Visit Diagnoses Not on filedocumented in this encounter Care Teams Band Presser Relationship Specialty Start Date End Date Alexey Connor DO [address], [facility] [place] [address] PCP - General Family Medicine 03/27/22 documented as of this encounter
--- OUTSIDE RECORDS SUMMARY | 2025-01-25 12:33 | XMS_ITS | Encounter Summary ---
Author Organization [facility] Sys tem Address [facility]-[id number] [address] [place] [address] Care Team Providers Care Block Cuber Name Role Phone Alexey Connor Primary Care Provider [phone] Encounter Details Date Type Department Care Team (Late st Contact Info) Description 02/17/2024 Orders Only [facility] Internal Medicine - Family Medicine [address] [place] [address] Ref Prov, [place] [address] Social History Tobacco Use Types Packs/Day Years [...] Problems Recent Progress Patient-Stated? Author go to [place] for therapy General Yes Ronit Sorensen LSW Note: Evaluation of progress towards goal: will DC from ED to SNF upon arrangements Long-Term Goals General Yes Amparo Nix LSW Note: Evaluation of progress towards goal: return to [facility] documented as of this encounter Procedures [...] on filedocumented in this encounter Care Teams Block Cuber Relationship Specialty Start Date End Date Alexey Connor DO [address], [place] [address] PCP - General Family Medicine 03/27/22 documented as of this encounter
--- OUTSIDE RECORDS SUMMARY | 2025-01-25 12:33 | XMS_ITS | Encounter Summary ---
Author Organization [facility] Sys tem Address [id number] [address] [place] [address] Care Team Providers Care Patent Prosecution Paralegal Name Role Phone Alexey Connor DO Primary Care Provider [phone] Encounter Details Date Type Department Care Team (Late st Contact Info) Description 01/29/2024 Orders Only [facility] Internal Medicine - Family Medicine [address] [place] [address] Alexey Connor DO [address], [facility] [place], [place] [id number] Social History Tobacco Use Types Packs/Day Years [...] Problems Recent Progress Patient-Stated? Author go to [place] for therapy General Yes Ronit Sorensen LSW Note: Evaluation of progress towards goal: will DC from ED to SNF upon arrangements Long-Term Goals General Yes Amparo Nix LSW Note: Evaluation of progress towards goal: return to [facility] documented as of this encounter Procedures Procedure Name Priority Date/Time Associated Diagnosis Comments POCT URINALYSIS AUTO, W/O MICROSCOPY Routine 01/29/2024 3:24 PM EDT documented in this encounter Results * POCT Urinalysis Auto, W/O Microscopy (01/29/2024 3:24 PM EDT) us Alexey Connor DO POINT OF CARE TEST ORDERABLE S Final Result Performing Organization Address City/State/[facility] Co de Phone Number MANUALLY TRANSCRIBED RESULTS documented in this encounter Visit Diagnoses Not on filedocumented in this encounter Care Teams Patent Prosecution Paralegal Relationship Specialty Start Date End Date Alexey Connor DO [address], [facility] [place] [address] PCP - General Family Medicine 03/27/22 documented as of this encounter
--- OUTSIDE RECORDS SUMMARY | 2025-01-25 12:33 | XMS_ITS | Encounter Summary ---
Author Organization [facility] Sys tem Address [facility] [place] [place]-[id number] [address] [place] [address] Care Team Providers Care Medication Nurse Name Role Phone Alexey Connor Primary Care Provider [phone] Encounter Details Date Type Department Care Team (Late st Contact Info) Description 02/12/2024 Orders Only [facility] Internal Medicine - Family Medicine [address] [place] [address] Ref Prov, [place] [address] Social History Tobacco Use Types Packs/Day Years [...] Problems Recent Progress Patient-Stated? Author go to [place] for therapy General Yes Ronit Sorensen LSW Note: Evaluation of progress towards goal: will DC from ED to SNF upon arrangements Long-Term Goals General Yes Amparo Nix LSW Note: Evaluation of progress towards goal: return to [facility] documented as of this encounter Procedures [...] on filedocumented in this encounter Care Teams Medication Nurse Relationship Specialty Start Date End Date Alexey Connor DO [address], [place] [address] PCP - General Family Medicine 03/27/22 documented as of this encounter
--- OUTSIDE RECORDS SUMMARY | 2025-01-25 12:33 | XMS_ITS | Encounter Summary ---
Author Organization [facility] Sy tem Address [facility]-[id number] [address] [place] [address] Care Team Providers Care Gallery Or Museum Attendant Name Role Phone Alexey Connor Primary Care Provider [phone] Encounter Details Date Type Department Care Team (Late st Contact Info) Description 09/11/2023 [facility] - Family Medicine [address] [place] [address] External, Scanning Provider Social History Tobacco Use Types Packs/Day Years Used Date Smoking Tobacco: Former Cigarettes 0.5 20 1 972 - 1991 Smokeless Tobacco: Never Comments:Quit in the 90'S, [...] Problems Recent Progress Patient-Stated? Author go to [place] for therapy General Yes Ronit Sorensen LSW [...] on filedocumented in this encounter Care Teams Gallery Or Museum Attendant Relationship Specialty Start Date End Date Alexey Connor DO [address] [facility], [place] [address] PCP - General Family Medicine 03/27/22 documented as of this encounter
--- OUTSIDE RECORDS SUMMARY | 2025-01-25 12:33 | XMS_ITS | Encounter Summary ---
Author Organization [facility] Address [address] [place] [address] Phone Care Team Providers Care Otolaryngologist Name Role Phone Alexey Connor DO Primary Care Provider Encounter Details Date Type Department Care Team (Late st Contact Info) Description 06/29/2020 Orders Only [facility] [address] [place] [address] Conversion, Onbase Social History Tobacco Use Types [...] on filedocumented in this encounter Care Teams Otolaryngologist Relationship Specialty Start Date End Date Alexey Connor DO PCP - General 04/15/99 documented as of this encounter
--- OUTSIDE RECORDS SUMMARY | 2025-01-25 12:33 | XMS_ITS | Encounter Summary ---
Author Organization [facility] Sys tem Address [facility]-[id number] [address] [place] [address] Care Team Providers Care Custom Feed Mill Operator Helper Name Role Phone Alexey Connor DO Primary Care Provider [phone] Encounter Details Date Type Department Care Team (Late st Contact Info) Description 01/31/2024 Orders Only [facility] Internal Medicine - Family Medicine [address] [place] [address] Alexey Connor DO [address], [facility] [place], [place] [address] Social History Tobacco Use Types Packs/Day Years [...] Problems Recent Progress Patient-Stated? Author go to [place] for therapy General Yes Ronit Sorensen LSW Note: Evaluation of progress towards goal: will DC from ED to SNF upon arrangements Long-Term Goals General Yes Amparo Nix LSW Note: Evaluation of progress towards goal: return to [facility] documented as of this encounter Visit Diagnoses Not on filedocumented in this encounter Care Teams Custom Feed Mill Operator Helper Relationship Specialty Start Date End Date Alexey Connor DO [address], [facility] [place] [address] PCP - General Family Medicine 03/27/22 documented as of this encounter
--- OUTSIDE RECORDS SUMMARY | 2025-01-25 12:33 | XMS_ITS | Encounter Summary ---
Author Organization [facility] Address [address] [place] [address] Care Team Providers Care Underwriting Consultant Name Role Phone Esteban Slater MD Primary Care Provider [phone] Source Comments In the event this information is protected by the Federal Confidentiality of Alcohol and Drug AbusePatient Records regulations: The Federal rules restrict any use of the information to criminally investigate or prosecute any alcohol or drug abuse patient.[facility] Encounter Details Date Type Department Care Team (Late st Contact Info) Description 01/26/2019 Patient Msg [facility] [address] [place] [address] Provider, [facility] [place] Caregiver Access Social History Tobacco [...] on filedocumented in this encounter Care Teams Underwriting Consultant Relationship Specialty Start Date End Date Esteban Slater MD [address] [place] [address] PCP - General Family Medicine 07/21/18 documented as of this encounter
--- OUTSIDE RECORDS SUMMARY | 2025-01-25 12:33 | XMS_ITS | Encounter Summary ---
Author Organization [facility] Sys tem Address [facility]-[id number] [address] [place] [address] Care Team Providers Care Personnel Placement Specialist Name Role Phone Alexey Connor Primary Care Provider [phone] Encounter Details Date Type Department Care Team (Late st Contact Info) Description 12/25/2023 Orders Only [facility] Internal Medicine - Family Medicine [address] [place] [address] Ref Prov, [place] [address] Social History Tobacco Use Types Packs/Day Years [...] Problems Recent Progress Patient-Stated? Author go to [place] for therapy General Yes Ronit Sorensen LSW Note: Evaluation of progress towards goal: will DC from ED to SNF upon arrangements Long-Term Goals General Yes Amparo Nix LSW Note: Evaluation of progress towards goal: return to [facility] documented as of this encounter Procedures Procedure [...] on filedocumented in this encounter Care Teams Personnel Placement Specialist Relationship Specialty Start Date End Date Alexey Connor DO [address], [place] [address] PCP - General Family Medicine 03/27/22 documented as of this encounter
--- OUTSIDE RECORDS SUMMARY | 2025-01-25 12:34 | XMS_ITS | Encounter Summary ---
Author Organization [facility] Address [facility] [place] [address] Care Team Providers Care Portrait Studio Photographer Name Role Phone Esteban Slater MD Primary Care Provider [phone] Source Comments In the event this information is protected by the Federal Confidentiality of Alcohol and Drug AbusePatient Records regulations: The Federal rules restrict any use of the information to criminally investigate or prosecute any alcohol or drug abuse patient.[facility] Encounter Details Date Type Department Care Team (Late st Contact Info) Description 02/11/2020 Patient Msg Neurological Gnostic[facility] [address] [place], [place] [id number] Tai Hinojosa MD [address] [place] [address] today's visit Social History Tobacco [...] on filedocumented in this encounter Care Teams Portrait Studio Photographer Relationship Specialty Start Date End Date Esteban Slater MD [address] [place] [address] PCP - General Family Medicine 07/21/18 documented as of this encounter
--- OUTSIDE RECORDS SUMMARY | 2025-01-25 12:34 | XMS_ITS | Clinical Summary ---
Author Organization [facility] Address [address] [place] [address] Care Team Providers Care Printing And Stamping Supervisor Name Role Phone Esteban Slater MD Primary Care Provider [phone] Allergies Active Allergy Reactions Criticality Noted Date [...] AM EDT Office Visit [facility] [address] [place] [address] Dionicio Trevizo MD Acquired hypothyroidism (Primary Dx); Movement disorder 11/04/2024 Bamboo flowsheet [facility] [place] [facility] [address] [place] [address] Dionicio Trevizo MD from Last 3 Months [...] [facility] [address] [place] [address] Dionicio Trevizo MD [address] [place] [address] Health Maintenance Due Date Last Done Comments CT Colonography 1955 FIT-DNA 1955 FIT 1955 FOBT 1955 Sigmoidoscopy 1955 Mammogram 1995 Pneumococcal Vaccine: 65+ Ye ars (3 of 3 - PCV20 or PCV21) 12/26/2023 12/25/2018, 11/20/2015 Influenza Vaccine (#1) 2024 , 12/19/2019, 12/15/2019, Additional history exists Colonoscopy 11/15/2030 11/15/2020 Colorectal Cancer Screening 11/15/2030 Insurance [employer] MED[employer]ARE MEDICAID [place] Care Teams Printing And Stamping Supervisor Relationship Specialty Start Date End Date Esteban Slater MD PCP - General Family Medicine 03/24/24
--- OUTSIDE RECORDS SUMMARY | 2025-01-25 12:34 | XMS_ITS | Encounter Summary ---
Author Organization [facility] Address [address] [place] [address] Care Team Providers Care Pharmacy Assistant Name Role Phone Esteban Slater MD Primary Care Provider [phone] Source Comments In the event this information is protected by the Federal Confidentiality of Alcohol and Drug AbusePatient Records regulations: The Federal rules restrict any use of the information to criminally investigate or prosecute any alcohol or drug abuse patient.[facility] Encounter Details Date Type Department Care Team (Late st Contact Info) Description 02/21/2020 Get Medical Advice Neurological [facility] [address] [place], [place] [address] Tai Hinojosa MD [address] [place] [address] RE: Non-Urgent Medical Question Social [...] tremor documented in this encounter Care Teams Pharmacy Assistant Relationship Specialty Start Date End Date Esteban Slater MD [address] [place] [address] PCP - General Family Medicine 07/21/18 documented as of this encounter
--- OUTSIDE RECORDS SUMMARY | 2025-01-25 12:34 | XMS_ITS | Encounter Summary ---
Author Organization [facility] Address [address] [place] [address] Care Team Providers Care Drink Box Mechanic Name Role Phone Esteban Slater MD Primary Care Provider [phone] Source Comments In the event this information is protected by the Federal Confidentiality of Alcohol and Drug AbusePatient Records regulations: The Federal rules restrict any use of the information to criminally investigate or prosecute any alcohol or drug abuse patient.[facility] Encounter Details Date Type Department Care Team (Late st Contact Info) Description 10/20/2019 Patient Msg Neurology [address] [place] [address] Tai Hinojosa MD [address] [place] [address] RE:phone call Social History Tobacco Use Types [...] on filedocumented in this encounter Care Teams Drink Box Mechanic Relationship Specialty Start Date End Date Esteban Slater MD [address] [place] [address] PCP - General Family Medicine 07/21/18 documented as of this encounter
--- OUTSIDE RECORDS SUMMARY | 2025-01-25 12:34 | XMS_ITS | Encounter Summary ---
Author Organization [facility] Address [address] [place] [address] Care Team Providers Care Personnel And Payroll Technician Name Role Phone Esteban Slater MD Primary Care Provider Source Comments In the event this information is protected by the Federal Confidentiality of Alcohol and Drug AbusePatient Records regulations: The Federal rules restrict any use of the information to criminally investigate or prosecute any alcohol or drug abuse patient.[facility] Encounter Details Date Type Department Care Team (Late st Contact Info) Description 05/27/2020 Get Medical Advice Neurology [address] [place], [place] [id number] Tai Hinojosa MD [address] [place] [address] RE: Non-Urgent Medical Question Social History Tobacco [...] N ot on file 03/20/2020 Data from: https://[email or web address]/. Last address used for calculation Not on [...] filedocumented in this encounter Care Teams Personnel And Payroll Technician Relationship Specialty Start Date End Date Esteban Slater MD [address] [place] [address] PCP - General Family Medicine 07/21/18 documented as of this encounter
--- OUTSIDE RECORDS SUMMARY | 2025-01-25 12:34 | XMS_ITS | Encounter Summary ---
Author Organization [facility] Address [address] [place] [address] Care Team Providers Care Health Program Analyst Name Role Phone Esteban Slater MD Primary Care Provider [phone] Source Comments In the event this information is protected by the Federal Confidentiality of Alcohol and Drug AbusePatient Records regulations: The Federal rules restrict any use of the information to criminally investigate or prosecute any alcohol or drug abuse patient.[facility] Encounter Details Date Type Department Care Team (Late st Contact Info) Description 05/23/2020 Get Medical Advice Neurology [address] [place], [place] [id number] Tai Hinojosa MD [address] [place] [address] RE: Non-Urgent Medical Question Social History Tobacco [...] N ot on file 03/20/2020 Data from: https://www.neighborhoodatlas.medicine.[facility]/. Last address [...] on filedocumented in this encounter Care Teams Health Program Analyst Relationship Specialty Start Date End Date Esteban Slater MD [address] [place] [address] PCP - General Family Medicine 07/21/18 documented as of this encounter
--- OUTSIDE RECORDS SUMMARY | 2025-01-25 12:34 | XMS_ITS | Encounter Summary ---
Author Organization [facility] Address [address] [place] [address] Care Team Providers Care Liberal Arts Teacher Name Role Phone Esteban Slater MD Primary Care Provider [phone] Source Comments In the event this information is protected by the Federal Confidentiality of Alcohol and Drug AbusePatient Records regulations: The Federal rules restrict any use of the information to criminally investigate or prosecute any alcohol or drug abuse patient.[facility] Encounter Details Date Type Department Care Team (Late st Contact Info) Description 05/24/2020 Get Medical Advice Neurology [address] [place], [place] [id number] Tai Hinojosa MD [address] [place] [address] RE: Non-Urgent Medical Question Social History Tobacco [...] on file 03/20/2020 Data from: https://www.neighborhoodatlas.medicine.[facility]/. Last address used for calculation [...] on filedocumented in this encounter Care Teams Liberal Arts Teacher Relationship Specialty Start Date End Date Esteban Slater MD [address] [place] [address] PCP - General Family Medicine 07/21/18 documented as of this encounter
--- OUTSIDE RECORDS SUMMARY | 2025-01-25 12:34 | XMS_ITS | Encounter Summary ---
Author Organization [facility] Address [address] [place] [address] Care Team Providers Care Machine Shop Worker Name Role Phone Esteban Slater MD Primary Care Provider [phone] Source Comments In the event this information is protected by the Federal Confidentiality of Alcohol and Drug AbusePatient Records regulations: The Federal rules restrict any use of the information to criminally investigate or prosecute any alcohol or drug abuse patient.[facility] Encounter Details Date Type Department Care Team (Late st Contact Info) Description 05/27/2020 Get Medical Advice Neurology [address] [place], [place] [id number] Tai Hinojosa MD [address] [place] [address] RE: Non-Urgent Medical Question Social History Tobacco [...] N ot on file 03/20/2020 Data from: https://www.neighborhoodatlas.medicine.[facility]/. Last address used for calculation [...] on filedocumented in this encounter Care Teams Machine Shop Worker Relationship Specialty Start Date End Date Esteban Slater MD [address] [place] [address] PCP - General Family Medicine 07/21/18 documented as of this encounter
--- OUTSIDE RECORDS SUMMARY | 2025-01-25 12:34 | XMS_ITS | Encounter Summary ---
Author Organization [facility] Address [address] [place] [address] Care Team Providers Care China Decorator Name Role Phone Esteban Slater MD Primary Care Provider Source Comments In the event this information is protected by the Federal Confidentiality of Alcohol and Drug AbusePatient Records regulations: The Federal rules restrict any use of the information to criminally investigate or prosecute any alcohol or drug abuse patient.[facility] Encounter Details Date Type Department Care Team (Late st Contact Info) Description 05/30/2020 Get Medical Advice Neurology [address] [place], [place] [id number] Tai Hinojosa MD [address] [place] [address] Non-Urgent Medical Question Social History Tobacco Use [...] N ot on file 03/20/2020 Data from: https://www.neighborhoodatlas.medicine.[facility]/. Last address used for [...] the patient and let her know that [facility] not [facility] why [facility] contacted her about only covering it one time. The medication has been approved and that when she goes to fill her medication there shouldn't be a problem. Mary Gibbs Ma documented in this encounter Plan of Treatment Not on file documented as of this encounter Visit Diagnoses Not on filedocumented in this encounter Care Teams China Decorator Relationship Specialty Start Date End Date Esteban Slater MD [address] [place] [address] PCP - General Family Medicine 07/21/18 documented as of this encounter
--- OUTSIDE RECORDS SUMMARY | 2025-01-25 12:34 | XMS_ITS | Encounter Summary ---
Author Organization [facility] Address [address] [place] [address] Care Team Providers Care Email Engineer Name Role Phone Esteban Slater MD Primary Care Provider [phone] Source Comments In the event this information is protected by the Federal Confidentiality of Alcohol and Drug AbusePatient Records regulations: The Federal rules restrict any use of the information to criminally investigate or prosecute any alcohol or drug abuse patient.[facility] Encounter Details Date Type Department Care Team (Late st Contact Info) Description 05/27/2020 Get Medical Advice Neurology [address] [place], [place] [id number] Tai Hinojosa MD [address] [place] [address] RE: Non-Urgent Medical Question Social History Tobacco [...] N ot on file 03/20/2020 Data from: https://www.neighborhoodatlas.medicine.[facility]/. Last address used for calculation Not on [...] on filedocumented in this encounter Care Teams Email Engineer Relationship Specialty Start Date End Date Esteban Slater MD [address] [place] [address] PCP - General Family Medicine 07/21/18 documented as of this encounter
--- OUTSIDE RECORDS SUMMARY | 2025-01-25 12:34 | XMS_ITS | Encounter Summary ---
Author Organization [facility] Address [address] [place] [address] Care Team Providers Care Commercial Green Building Architect Name Role Phone Esteban Slater MD Primary Care Provider [phone] Source Comments In the event this information is protected by the Federal Confidentiality of Alcohol and Drug AbusePatient Records regulations: The Federal rules restrict any use of the information to criminally investigate or prosecute any alcohol or drug abuse patient.[facility] Encounter Details Date Type Department Care Team (Late st Contact Info) Description 05/27/2020 Get Medical Advice Neurology [address] [place], [place] [phone] Tai Hinojosa MD [address] [place] [address] RE: Non-Urgent Medical Question Social History Tobacco [...] N ot on file 03/20/2020 Data from: https://www.neighborhoodatlas.medicine.[facility]/. Last address used for calculation Not on file 03/20/2020 Comments Unknown Sex and Gender Information Value Date Recorded Sex Assigned at Not on file Legal Sex Female 9:36 AM EST Gender Identity Not on file Sexual Orientation Not on file documented as of this encounter Miscellaneous Notes * Telephone Encounter - Mary Gibbs) - 05/30/2020 10:23 AM EST Called [facility] and am waiting on a call [...] on filedocumented in this encounter Care Teams Commercial Green Building Architect Relationship Specialty Start Date End Date Esteban Slater MD [address] [place] [address] PCP - General Family Medicine 07/21/18 documented as of this encounter
--- OUTSIDE RECORDS SUMMARY | 2025-01-25 12:34 | XMS_ITS | Encounter Summary ---
Author Organization [facility] Address [address] [place] [address] Care Team Providers Care Patient Financial Coordinator Name Role Phone Esteban Slater MD Primary Care Provider [phone] Source Comments In the event this information is protected by the Federal Confidentiality of Alcohol and Drug AbusePatient Records regulations: The Federal rules restrict any use of the information to criminally investigate or prosecute any alcohol or drug abuse patient.[facility] Encounter Details Date Type Department Care Team (Late st Contact Info) Description 06/08/2020 Get Medical Advice Neurology [address] [place], [place] [phone] Tai Hinojosa MD [address] [place] [address] RE: Non-Urgent Medical Question Social History Tobacco [...] N ot on file 03/20/2020 Data from: https://www.neighborhoodatlas.medicine.[facility]/. Last address used [...] in this encounter Care Teams Patient Financial Coordinator Relationship Specialty Start Date End Date Esteban Slater MD [address] [place] [address] PCP - General Family Medicine 07/21/18 documented as of this encounter
--- OUTSIDE RECORDS SUMMARY | 2025-01-25 12:34 | XMS_ITS | Encounter Summary ---
Author Organization [facility] Address [address] [place] [address] Care Team Providers Care Cabin Service Agent Name Role Phone Esteban Slater MD Primary Care Provider [phone] Source Comments In the event this information is protected by the Federal Confidentiality of Alcohol and Drug AbusePatient Records regulations: The Federal rules restrict any use of the information to criminally investigate or prosecute any alcohol or drug abuse patient.[facility] Encounter Details Date Type Department Care Team (Late st Contact Info) Description 2020 [place] [address] Provider, [facility] Medicare Coverage of Physical Exams Social History [...] N ot on file 03/20/2020 Data from: https://www.neighborhoodatlas.medicine.[facility].edu/. Last address used for calculation Not [...] on filedocumented in this encounter Care Teams Cabin Service Agent Relationship Specialty Start Date End Date Esteban Slater MD [address] [place] [address] PCP - General Family Medicine 07/21/18 documented as of this encounter
--- OUTSIDE RECORDS SUMMARY | 2025-01-25 12:34 | XMS_ITS | Encounter Summary ---
Author Organization [facility] Address [address] [place] [address] Care Team Providers Care Dianetic Counselor Name Role Phone Esteban Slater MD Primary Care Provider [phone] Source Comments In the event this information is protected by the Federal Confidentiality of Alcohol and Drug AbusePatient Records regulations: The Federal rules restrict any use of the information to criminally investigate or prosecute any alcohol or drug abuse patient.[facility] Encounter Details Date Type Department Care Team (Late st Contact Info) Description 03/26/2020 Patient Msg Endocrinology [address] [place], [place] [id number] Provider, [facility] Message from Office of Tai [...] N ot on file 03/20/2020 Data from: https://www.neighborhoodatlas.medicine.[facility].edu/. Last address used for calculation Not on [...] on filedocumented in this encounter Care Teams Dianetic Counselor Relationship Specialty Start Date End Date Esteban Slater MD [address] [place] [address] PCP - General Family Medicine 07/21/18 documented as of this encounter
--- OUTSIDE RECORDS SUMMARY | 2025-01-25 12:34 | XMS_ITS | Encounter Summary ---
Author Organization [facility] Address [address] [place] [address] Care Team Providers Care Wharf Worker Name Role Phone Esteban Slater MD Primary Care Provider [phone] Source Comments In the event this information is protected by the Federal Confidentiality of Alcohol and Drug AbusePatient Records regulations: The Federal rules restrict any use of the information to criminally investigate or prosecute any alcohol or drug abuse patient.[facility] Encounter Details Date Type Department Care Team (Late st Contact Info) Description 06/13/2020 Get Medical Advice Neurology [address] [place], [place] [phone] Tai Hinojosa MD [address] [place] [address] RE: Non-Urgent Medical Question Social History Tobacco [...] ot on file 03/20/2020 Data from: https://www.neighborhoodatlas.medicine.[facility]/. Last address used for calculation Not [...] on filedocumented in this encounter Care Teams Wharf Worker Relationship Specialty Start Date End Date Esteban Slater MD [address] [place] [address] PCP - General Family Medicine 07/21/18 documented as of this encounter
--- OUTSIDE RECORDS SUMMARY | 2025-01-25 12:34 | XMS_ITS | Encounter Summary ---
Author Organization [facility] Address [address] [place] [address] Care Team Providers Care Technical Communicator Name Role Phone Esteban Slater MD Primary Care Provider [phone] Source Comments In the event this information is protected by the Federal Confidentiality of Alcohol and Drug AbusePatient Records regulations: The Federal rules restrict any use of the information to criminally investigate or prosecute any alcohol or drug abuse patient.[facility] Encounter Details Date Type Department Care Team (Late st Contact Info) Description 06/13/2020 Get Medical Advice Neurology [address] [place], [place] [phone] Tai Hinojosa MD [address] [place] [address] Non-Urgent Medical Question Social History Tobacco Use [...] on file 03/20/2020 Data from: https://www.neighborhoodatlas.medicine.[facility]/. Last address used for calculation Not on [...] on filedocumented in this encounter Care Teams Technical Communicator Relationship Specialty Start Date End Date Esteban Slater MD [address] [place] [address] PCP - General Family Medicine 07/21/18 documented as of this encounter
--- OUTSIDE RECORDS SUMMARY | 2025-01-25 12:34 | XMS_ITS | Encounter Summary ---
Author Organization [facility] Address [facility] [place] [address] Care Team Providers Care Women'S Garment Fitter Name Role Phone Esteban Slater MD Primary Care Provider [phone] Source Comments In the event this information is protected by the Federal Confidentiality of Alcohol and Drug AbusePatient Records regulations: The Federal rules restrict any use of the information to criminally investigate or prosecute any alcohol or drug abuse patient.[facility] Encounter Details Date Type Department Care Team (Late st Contact Info) Description 12/16/2019 Get Medical Advice Neurological Jainism [address] [place], [place] [phone] Tai Hinojosa MD [address] [place] [address] RE: Non-Urgent Medical Question Social [...] on filedocumented in this encounter Care Teams Women'S Garment Fitter Relationship Specialty Start Date End Date Esteban Slater MD [address] [place] [address] PCP - General Family Medicine 07/21/18 documented as of this encounter
--- OUTSIDE RECORDS SUMMARY | 2025-01-25 12:34 | XMS_ITS | Encounter Summary ---
Author Organization [facility] Address [address] [place] [address] Care Team Providers Care Repossessor Name Role Phone Esteban Slater MD Primary Care Provider [phone] Source Comments In the event this information is protected by the Federal Confidentiality of Alcohol and Drug AbusePatient Records regulations: The Federal rules restrict any use of the information to criminally investigate or prosecute any alcohol or drug abuse patient.[facility] Encounter Details Date Type Department Care Team (Late st Contact Info) Description 06/06/2020 Get Medical Advice Neurology [address] [place], [place] [phone] Tai Hinojosa MD [address] [place] [address] Non-Urgent Medical Question Social History Tobacco Use [...] N ot on file 03/20/2020 Data from: https://www.neighborhoodatlas.medicine.[facility]/. Last address used [...] on filedocumented in this encounter Care Teams Repossessor Relationship Specialty Start Date End Date Esteban Slater MD [address] [place] [address] PCP - General Family Medicine 07/21/18 documented as of this encounter
--- OUTSIDE RECORDS SUMMARY | 2025-01-25 12:34 | XMS_ITS | Encounter Summary ---
Author Organization [facility] Address [facility] [place] [address] Care Team Providers Care Senior Applications Architect Name Role Phone Esteban Slater MD Primary Care Provider [phone] Source Comments In the event this information is protected by the Federal Confidentiality of Alcohol and Drug AbusePatient Records regulations: The Federal rules restrict any use of the information to criminally investigate or prosecute any alcohol or drug abuse patient.[facility] Encounter Details Date Type Department Care Team (Late st Contact Info) Description 12/16/2019 Get Medical Advice Neurological Religion [address] [place], [place] [phone] Tai Hinojosa MD [address] [place] [address] RE: Non-Urgent Medical Question Social [...] on filedocumented in this encounter Care Teams Senior Applications Architect Relationship Specialty Start Date End Date Esteban Slater MD [address] [place] [address] PCP - General Family Medicine 07/21/18 documented as of this encounter
--- OUTSIDE RECORDS SUMMARY | 2025-01-25 12:34 | XMS_ITS | Encounter Summary ---
Author Organization [facility] Address [facility] [place] [address] Care Team Providers Care Medical Operations Supervisor Name Role Phone Esteban Slater MD Primary Care Provider [phone] Source Comments In the event this information is protected by the Federal Confidentiality of Alcohol and Drug AbusePatient Records regulations: The Federal rules restrict any use of the information to criminally investigate or prosecute any alcohol or drug abuse patient.[facility] Encounter Details Date Type Department Care Team (Late st Contact Info) Description 10/26/2019 Get Medical Advice Neurological Pentecostalism [address] [place], [place] [phone] Tai Hinojosa MD [address] [place] [address] RE: Non-Urgent Medical Question Social [...] on filedocumented in this encounter Care Teams Medical Operations Supervisor Relationship Specialty Start Date End Date Esteban Slater MD [address] [place] [address] PCP - General Family Medicine 07/21/18 documented as of this encounter
--- OUTSIDE RECORDS SUMMARY | 2025-01-25 12:34 | XMS_ITS | Encounter Summary ---
Author Organization [facility] Address [address] [place] [address] Care Team Providers Care Vp Director Of Creative Strategy Name Role Phone Esteban Slater MD Primary Care Provider [phone] Source Comments In the event this information is protected by the Federal Confidentiality of Alcohol and Drug AbusePatient Records regulations: The Federal rules restrict any use of the information to criminally investigate or prosecute any alcohol or drug abuse patient.[facility] Encounter Details Date Type Department Care Team (Late st Contact Info) Description 06/06/2020 Get Medical Advice Neurology [address] [place], [place] [phone] Tai Hinojosa MD [address] [place] [address] RE: Non-Urgent Medical Question Social History Tobacco [...] on file 03/20/2020 Data from: https://www.neighborhoodatlas.medicine.[facility]/. Last address used for calculation Not [...] filedocumented in this encounter Care Teams Vp Director Of Creative Strategy Relationship Specialty Start Date End Date Esteban Slater MD [address] [place] [address] PCP - General Family Medicine 07/21/18 documented as of this encounter
--- OUTSIDE RECORDS SUMMARY | 2025-01-25 12:34 | XMS_ITS | Encounter Summary ---
Author Organization [facility] Address [address] [place] [address] Care Team Providers Care Slip Laster Name Role Phone Esteban Slater MD Primary Care Provider [phone] Source Comments In the event this information is protected by the Federal Confidentiality of Alcohol and Drug AbusePatient Records regulations: The Federal rules restrict any use of the information to criminally investigate or prosecute any alcohol or drug abuse patient.[facility] Encounter Details Date Type Department Care Team (Late st Contact Info) Description 02/14/2020 Get Medical Advice Neurological Bahai [address] [place], [place] [id number] Tai Hinojosa MD [address] [place] [address] RE: Non-Urgent Medical Question Social [...] on filedocumented in this encounter Care Teams Slip Laster Relationship Specialty Start Date End Date Esteban Slater MD [address] [place] [address] PCP - General Family Medicine 07/21/18 documented as of this encounter
--- OUTSIDE RECORDS SUMMARY | 2025-01-25 12:35 | XMS_ITS | CCD ---
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 Name Role Phone HERVE STARKEY Admitting Unavailable ESTEBAN GARZA Referring Unavailable ESTEBAN GARZA Primary Care Unavailable HERVE STARKEY Attending Unavailable Alexey Polo Unavailable Radha Bosch Unavailable Stevenson Corbin Unavailable Sena Eugene Unavailable MD Stevenson Corbin Attending Provider DO Alexey Polo Primary Care Provider Esteban Garza A Primary Care Provider Esteban Garza A Primary Care Provider CHRIST, DR ALEXEY Garcia Primary Care Unavailable ELNA PALMER Attending Unavailable ZARI Gore, LENA Admitting [...] SOFI Admitting Unavailable NIGHAT, SOFI Consulting Unavailable DERDAMIR, JEFE Consulting Unavailable Furlong, DO Alexey Primary Care Provider MD Stevenson Corbin Attending Provider Esteban Garza Primary Care Provider [phone] FURSAMANTHANG, ALEXEY Garcia Referring Unavailable FURLONG, ALEXEY Garcia Primary Care Unavailable FURLONG, ALEXEY G Referring Unavailable FURLONG, AELXEY G Primary Care Unavailable FURLONG, ALEXEY G Referring Unavailable FURLONG, ALEXEY G Primary Care Unavailable FURLONG, ALEXEY G Referring Unavailable FURLONG, ALEXEY G Primary Care Unavailable Esteban Garza Primary Care Provider DO Alexey Polo Primary Care Provider [phone] MD Stevenson Corbin Attending Provider [phone] DO Nickolas Hawthorne Attending Provider Alexey Polo DO Primary Care Provider Stevenson Corbin MD Attending Provider Nickolas Hawthorne DO Attending Provider [phone] Alexey Polo DO Primary Care Provider Esteban Garza MD Primary Care Provider [phone] Alexey Polo DO Primary Care Provider Nickolas Hawthorne DO Attending Provider Alexey Polo DO Primary Care Provider Nickolas Hawthorne DO Attending Provider [phone] Bgleeann Alexey CACERES G Primary Care Provider Esteban Garza MD Primary Care Provider [phone] ESTEBAN GARZA Primary Care Unavailable TAI HINOJOSA [...] Attending Unavailable Marine, Nickolas A Admitting Unavailable DIONICIO TREVIZO F Attending Unavailable BRIGIDO, AHMAD F Referring Unavailable BRIGIDODIONICIO KRAMER F Attending Unavailable Furlong DO, Alexey Primary Care Provider Nickolas Hawthorne DO Attending Provider [phone] LEONIE JOYA Attending Unavailable LEONIE JOYA Attending Unavailable TELLY PLAZA Referring Unavailable TELLY PLAZA Attending Unavailable Allergies Allergy Classification Reported Allergen(s) Allergy Type Date of Onset Reaction(s) Facility (19 sources) Azithromycin; Translations: [AZITHROMYCIN] Drug Allergy 0 Unknow [facility] Repository Comment on above: Listed as an allergy on her PCP notes (20 sources) Erythromycin; Translations: [erythromycin] Drug Allergy 7 Unknown, Nausea And Vomiting, GI intolerance, Other [facility] (20 sources) erythromycin base; Translations: [Erythromycin Base] Allergy to substance 1 Unknown [facility] (19 sources) Clarithromycin; Translations: [CLARITHROMYCIN] Drug Allergy 1 Nausea And Vomiting, GI intolerance [facility] Repository (7 sources) Acetaminophen / HYDROcodone; Translations: [HYDROCODONE-ACET AMINOPHEN] Drug Allergy 4 GI intolerance [facility] (6 sources) Azithromycin Drug Allergy 2 Unknown [facility] (1 source) Azithromycin Drug Allergy 5 [facility] Repository Medications Current Medications Medication Drug [...] pain. amantadine hydrochloride 100 mg oral tablet (19 sources) Influenza A M2 Protein Inhibitor Start: 12-27-19 24 take 1 tablet by mouth twice daily Amantadine Hcl 100 mg tablet Active 100 MG PO Twice daily January 29, 2024 12:00am Complies with drug therapy amLODIPine 10 mg oral tablet (20 sources) Dihydropyridine Calcium Channel Michael Start: 11-22-19 24 take 1 tablet by mouth once daily Amlodipine 10 mg tablet Active 10 MG PO Daily January 29, 2024 12:00am FreeTextSi tablet Orally Once a day; Note: Source Status: Taking; Provider: Hiro Kam Complies with drug therapy Start: 09-13-2021 End: 01-29-2024 take 2 tablets [...] aspirin 81 mg delayed release oral tablet (14 sources) Platelet Aggregation Inhibitor, Nonsteroidal Anti-inflammatory Drug Start: 01-29-20 24 Aspirin (Adult Low Dose Aspirin) 81 mg tablet,delayed release (DR/EC) Active 81 MG PO Daily January 29, 2024 12:00am Complies with drug therapy atorvastatin 40 mg oral tablet (20 sources) [...] TAB PO Daily September 13, 2021 12:00am Complies with drug therapy calcium carbonat e-vitamin D3 (CALCIUM 600 WITH VITAMIN D3) 600 mg(1,500mg) - 400 unit tablet,chewable Chew 2 tablets and swallow daily. Active camphor 0.002 mg/mg / menthol 0.035 mg/mg topical gel (12 sources) Start: 01-29-2024 Camphor-Menthol (Freeze It Relief) 0.2-3.5 % gel Active 1 APPLIC TOPICAL 2-4 TIMES PER DAY as needed for pain January 29, 2024 12:00am rub in gently and completely Complies with drug therapy carBAMazepine 200 mg oral tablet (20 sources) Mood Stabilizer Start: 11-12-2023 End: 02-10-2024 take 1 tablet by mouth three times daily Carbamazepine 200 mg tablet Active 200 MG PO Three times daily January 29, 2024 12:00am Complies with drug therapy celecoxib 100 mg oral capsule (8 sources) [...] daily January 29, 2024 12:00am 0.5-1.0 tid Complies with drug therapy Start: 01-08-2023 take 1.5 tablets by mouth [...] (20 sources) Muscle Relaxant Start: 023 End: 025 take 1 tablet by mouth three times daily as needed for muscle spasms cyclobenzaprine (FLEXERIL) 10 mg tablet Take 1 tablet (10 mg total) by mouth 3 (three) times a day as needed for muscle spasms. 12/23/2022 Active deutetrabenazine 12 mg oral tablet (20 sources) Start: 022 take 2 tablets by [...] mg/ml / guaiFENesin 20 mg/ml oral solution (14 sources) Uncompetitive J-dtprqd-L-aspartat e Receptor Antagonist, Sigma-1 Agonist take 10 [...] 2021 12:00am takes every mon, wed, fri Complies with drug therapy take 1 tablet by courtney th once [...] Start: 09-13-2021 Fluticasone Pr opionate 50 mcg/actuation [place],Suspension Active 1 SPRAY INTRANASAL Daily September 13, 2021 12:00am Complies with drug therapy take 1 puff(s) by in halation twice [...] a day. guaiFENesin 20 mg/ml oral solution (7 sources) Start: 06-01-19 take 200 mg by mouth every four hours as needed Guaifenesin 100 mg/5 mL liquid Active 200 MG PO Every 4 hours as needed June 01, 2024 1:00am Complies with drug therapy levothyroxine sodium 0.075 mg oral tablet (20 [...] hours as needed June 01, 2024 1:00am Complies with drug therapy Start: 09-13-2021 End: 01-29-2024 Loperamide (Imodium A-D) [...] DAY as needed June 01, 2024 1:00am Complies with drug therapy Start: 09-13-2021 End: 10-18-2021 Menthol (Biofreeze (Menthol) [...] succinate 50 mg extended release oral tablet (15 sources) beta-Adrenergic Michael Start: 02-24-2024 take 1 tablet by mouth every twenty-four hours Metoprolol Succinate 50 mg tablet extended release 24 hr Active MG PO February 24, 2024 1:00am Complies with drug therapy take 1 tablet by mouth in the mo rning metoprolol tartrate (Lopressor) 50 MG tablet Take 1 tablet by mouth in the morning and 1 tablet before bedtime. Active mirtazapine 15 mg oral tablet (15 sources) Start: 06-01-2024 take 1 tablet by mouth once daily Mirtazapine 15 mg tablet Active 15 MG PO Daily June 01, 2024 1:00am Complies with drug therapy nitroglycerin 0.4 mg sublingual tablet (6 sources) [...] nausea and vomiting February 12, 2024 12:00am Complies with drug therapy Start: 01-23-2024 take 4 mg by mouth [...] MG PO Daily June 01, 2024 1:00am Complies with drug therapy Start: 01-23-2024 End: 06-01-2024 take 1 tablet by mouth once daily Pantoprazole (Protonix) 40 mg tablet,delayed release (DR/EC) Discontinued 40 MG PO Daily January 23, 2024 12:00am June 01, 2024 12:55pm Start: 06-28-2020 take 40 mg by mouth twice daily Pantoprazole Active 40 MG PO Twice daily June 28, 2020 12:00am Comment on above: Take 40 mg by mouth twice daily. Take 40 mg by mouth once daily. polyethylene glycol 3350 16424 mg powder for oral solution (20 sources) Osmotic Laxative Start: 02-11-2024 End: 06-01-2024 Polyethylene Glycol 3350 (Miralax) 17 gram/dose powder Active 17 GM PO Daily June 01, 2024 1:00am Complies with drug therapy Start: 09-13-2021 End: 01-29-2024 Polyethylene Glycol 3350 [...] Daily at bedtime June 01, 2024 1:00am Complies with drug therapy Start: 06-28-2020 End: 06-01-2024 take 1 tablet [...] daily as needed June 01, 2024 1:00am Complies with drug therapy Start: 06-01-2024 Sodium Chlorid e 1 gram [...] times daily. tetrabenazine 25 mg oral tablet (14 sources) Vesicular Monoamine Transporter 2 Inhibitor Start: 12-27-19 take 1 tablet by mouth once daily Tetrabenazine 25 mg tablet Active 25 MG PO Daily June 01, 2024 1:00am Complies with drug therapy Start: 12-27-2023 take 1 tablet by courtney th twice daily tetrabenazine (XENAZINE) 25 mg tablet Indications: Dyskinesia, tardive Take 1 tablet by mouth two times a day. 60 tablet 2 12/27/2023 Active traZODone hydrochloride 100 mg oral tablet (20 sources) Serotonin Reuptake Inhibitor Start: 12-29-2022 traZODone (DESYREL) 100 mg tablet 12/29/2022 Active Start: 10-09-2021 Trazodone 150 mg tablet Active 200 MG PO Bedtime October 09, 2021 12:00am Complies with drug therapy Start: 10-09-2021 take 200 mg by mouth [...] oral tablet (20 sources) Start: 02-11-2024 End: 02-17-2025 take 1 tablet by mouth every six [...] needed for pain October 09, 2021 12:00am Complies with drug therapy take 1 tablet by courtney th every eight hours as needed acetaminophen (TYLENOL EXTRA STRENGTH) 500 mg tablet Take 1 tablet (500 mg total) by mouth every 8 (eight) hours as needed. Active take 1 tablet by courtney every four hours as needed Acetaminophen 325 [...] every 4 hrs for 5 days KALEE: [id number] Oct, Not-Taking alendronic acid 70 mg oral tablet (20 sources) Bisphosphonate Start: 05-07-19 End: 06-01-19 25 take 1 tablet by mouth every week Alendronate 70 mg Tablet Discontinued 70 MG PO every week June 28, 2020 12:00am September 13, 2021 12:00pm take 1 tablet by mouth once jose [...] PO Twice daily September 13, 2021 12:00pm Complies with drug therapy Start: 09-13-2021 take 10 mg by mouth [...] Active docusate sodium 100 mg oral capsule (10 sources) Start: 02-11-20 End: 06-01-19 take 1 capsule by mouth twice daily as needed for constipation Docusate Sodium (Colace) 100 mg capsule Discontinued 100 MG PO Twice daily as needed for Constipation 20 February 11, 2024 12:00am June 01, 2024 12:55pm doxycycline hyclate 100 mg oral tablet (20 sources) Tetracycline-clas s Drug Start: 02-13-20 End: [...] Tablet Discontinued 20 MG PO Daily June 28, 2020 12:00am July 05, 2020 10:25am Comment on above: Take 20 mg by mouth once daily. furosemide 20 mg oral tablet (17 sources) Loop Diuretic Start: End: 2 take 1 tablet by mouth once daily Furosemide 20 mg Tablet Discontinued 20 MG PO Daily at 0800 30 30 July 05, 2020 12:00am September 13, [...] mouth . meloxicam 15 mg oral tablet (10 sources) Nonsteroidal Anti-inflammatory Drug Start: 02-11-20 End: 02-12-20 take 1 tablet by mouth once daily Meloxicam 15 mg tablet Discontinued 15 MG PO daily 14 February 11, 2024 12:00am February [...] daily. oxyCODONE hydrochloride 5 mg oral tablet (20 sources) Opioid Agonist Start: 02-11-20 End: 06-01-19 take 1 tablet by mouth every six hours as needed for pain Oxycodone 5 mg tablet Discontinued 5 MG PO Q6H as needed for Pain 7 February 13, 2024 June 01, 2024 [...] Administrative/social admission (1 source) Lives in a alf; Translations: [Person living in residential institution] Episodic Anxiety disorders (20 sources) Anxiety state; Translations: [Anxiety state, unspecified] Onset: 03-23-2022 07-05-2020 Chronic Comment on above: Problem List clean-u p per request of Phys. 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] Onset: 01-18-2024 Chronic Deficiency and other anemia (3 sources) Iron deficiency anemia; Translations: [Iron deficiency anemia, unspecified] 06-02-2024 Episodic Disorders of lipid metabolism (20 sources) Hyperlipidemia; Translations: [Other and unspecified hyperlipidemia] Onset: 12-06-2021 Resolved: 12-06-2021 Chronic E Codes: Fall (4 sources) Unspecified fall, initial encounter; Translations: [Other fall on same level, initial encounter] Onset: 07-03-2021 Episodic Esophageal disorders (12 sources) Gastro-esophageal reflux disease without esophagitis; Translations: [Gastroesophageal reflux disease] Onset: 06-05-2022 10-19-2022 Chronic Essential hypertension (20 sources) Benign essential hypertension; Translations: [Benign essential hypertension] Onset: 03-22-2021 Resolved: 12-06-2021 Chronic Fluid and electrolyte disorders (20 sources) Hypo-osmolality and hyponatremia; Translations: [Acute hyponatremia] Onset: 12-23-2020 Resolved: 12-06-2021 Episodic Comment on above: Problem List clean-u p per request of Phys. 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; Translations: [OTH GAMING DEALER CURRENT DRUG THERAPY] Onset: 06-05-2022 Episodic Other bone disease and musculoskeletal deformities (11 sources) Avascular necrosis of bone of hip; [...] Resolved: 12-04-2021 Chronic Other connective tissue disease (10 sources) History of operative procedure on shoulder; [...] Episodic Other connective tissue disease (2 sources) Myalgia, unspecified site; Translations: [Myalgia, unspecified site] Onset: 01-22-2025 Episodic Other diseases of kidney and ureters (17 sources) Hydronephrosis; Translations: [Unspecified hydronephrosis] 06-30-2020 Episodic Comment on above: Problem List clean-u p per request of Phys. EHR Cmte Other endocrine disorders (17 sources) Syndrome of inappropriate vasopressin secretion; Translations: [Syndrome of inappropriate secretion of antidiuretic hormone] Onset: 09-14-2022 09-14-2022 Chronic Other endocrine disorders (12 sources) Hypoglycemia; Translations: [Hypoglycemia, unspecified] Onset: 09-14-2022 [...] and degenerative nervous system conditions (20 sources) Tardive dyskinesia; Translations: [Drug induced subacute dyskinesia] Episodic Other hereditary and degenerative nervous system conditions (1 source) Drug induced subacute dyskinesia; Translations: [DRUG INDUCED SUBACUTE DYSKINESIA] Onset: 06-05-2022 Episodic Other nervous system disorders (17 sources) Metabolic encephalopathy; Translations: [Metabolic encephalopathy] 06-30-2020 Chronic Comment on above: Problem List clean-u p per request of Phys. EHR Cmte Other nervous system disorders (1 source) Other chronic pain; Translations: [OTHER CHRONIC PAIN] Onset: 08-23-2021 Chronic Other nervous system disorders (17 sources) Abnormal movement; Translations: [Unspecified abnormal involuntary movements] 06-30-2020 Episodic Comment on above: Problem List clean-u p per request of Phys. EHR Cmte Other nervous system disorders (1 source) Enhanced physiological tremor; Translations: [Tremor, unspecified] Episodic Other nervous system disorders (13 sources) Multifactorial gait problem; Translations: [Other abnormalities of gait and mobility] Onset: 03-23-2022 03-23-2022 Episodic Other non-traumatic joint disorders (20 sources) Pain in right shoulder; Translations: [Right shoulder pain] Onset: 05-30-2021 Resolved: 05-30-2021 Episodic Other non-traumatic joint disorders (16 sources) Pain in right knee; Translations: [Right [...] apnea, unspecified] 04-17-2024 Chronic Residual codes; unclassified (17 sources) Altered mental status; Translations: [Altered mental status, unspecified] 06-30-2020 Episodic Comment on above: Problem List clean-u p per request of Phys. EHR Cmte Septicemia (except in labor) (17 sources) Sepsis; Translations: [Sepsis, unspecified organism] 06-30-2020 [...] Problem Date Documented Date Episodic/Chronic Abdominal hernia (11 sources) Hiatal hernia; Translations: [Diaphragmatic hernia without obstruction or gangrene] Onset: 03-12-2023 03-12-2023 Episodic Anal and rectal conditions (12 sources) Rectal prolapse; Translations: [Rectal prolapse] Onset: 02-04-2021 05-18-2022 Episodic Deficiency and other anemia (1 source) Anemia, unspecified Onset: 03-22-2021 Resolved: 03-22-2021 Episodic Deficiency and other anemia (11 sources) Anemia; Translations: [Anemia, unspecified] Onset: 03-23-2022 Resolved: 12-07-2024 03-23-2022 Episodic Fracture of neck of femur (hip) (11 sources) Closed fracture of neck of femur; Translations: [Fracture of unspecified part of neck of unspecified femur, initial encounter for closed fracture] Onset: 06-16-2020 02-03-2021 Episodic Nausea and vomiting (15 sources) Nausea; Translations: [Nausea with vomiting, unspecified] Onset: 02-23-2022 Episodic Other connective tissue disease (20 sources) Rhabdomyolysis; Translations: [Rhabdomyolysis] Onset: 07-04-2023 06-30-2020 Episodic Comment on above: Problem List clean-u p per request of Phys. EHR Cmte Other connective tissue disease (11 sources) Swelling of lower limb; Translations: [Other specified soft tissue disorders] Onset: 12-22-2020 12-22-2020 Episodic Other connective tissue disease (11 sources) Muscle weakness; Translations: [Muscle weakness (generalized)] Onset: 03-23-2022 03-23-2022 Episodic Other diseases of kidney and ureters (2 sources) Unspecified hydronephrosis Onset: 03-22-2021 Resolved: 12-06-2021 Episodic Other lower respiratory disease (12 sources) Apnea; Translations: [Apnea, not elsewhere classified] Onset: 04-06-2024 04-06-2024 Episodic Other non-traumatic joint disorders (11 sources) Pain of left hip joint; Translations: [...] caused by tuberculosis or sexually transmitted disease) (11 sources) Pneumonia; Translations: [Pneumonia, unspecified organism] Resolved: [...] Value Interpretation Reference Range Facility Office Visiton 01-22-2025 Follow-up visit [id number] Melanie Espinoza 1955 F Date Provider Department Center 01/22/2025 [id number]-SJGRKULEONIE JOYA THERESE [facility] Family History Problem Relation Age of Onset Hypertension Mother Stroke Mother Heart attack Father Family Status - Relation Status Age at Mother Father Level of Service:30420 [place] OFFICE/OUTPATIENT ESTABLISHED LOW MDM 20 MIN Reason for Visit and Comments: Follow-up [627795] - Patient is here today for a 6 month follow up Hypertension [007774] Coronary Artery Disease [187] Hyperlipidemia [182] [facility] 01-08-2025 29 Addended by: ALEIDA NUÑEZ on: 01/08/2025 04:04 PM Modules accepted: Orders [facility] 01-08-2025 36 brandyn Jyoa MD to Evi Orellana MA 01/03/25 5:25 PM LDL is 93 higher than last time, our goal is 70 or below, verify that she is receiving atorvastatin 40 mg daily if so increase it to 60 mg daily and recheck fasting lipids and AST ALT in 2 to 3 months Spoke to nurse Toshia, advised her of Dr. Hall recommendations to increase atorvastatin to 60mg and repeat labs in 2 to 3 months. Order faxed to [facility]. [facility] 01-01-2025 36 She had CMP and LIPIDS drawn in Nov 2024 as well. Then she just had them again today. FYI. They're scanned in. Doesn't look like they jesica ALT. [facility] 12-31-2024 36 MD Aleida Harris MA those labs are from July, Lipids look very good, continue current management, recheck fasting lipids and AST ALT now Spoke to Yamilka nelson at [facility]. Advised nurse of lab results and Dr. Joya's recommendation. Order for repeat labs faxed to [facility]. [facility] Telephoneon 12-31-2024 Telephone [phone] Melanie Espinoza 1955 F Date Provider Department Center 12/31/2024 [id number]-FKRMJRUQYWALEIDA NUÑEZ [facility] Family History Problem Relation Age of Onset Hypertension Mother Stroke Mother Heart attack Father Family Status - Relation Status Age at Mother Father Normal [facility] X-ray reportOrdered By: Giovanni Taylor on 08-10-2024 Study report [facility] [address] [place] [address] XRay Report Signed Patient: Melanie Espinoza MR#: [id number] : 1955 Acct:[id number] Age/Sex: 69 / F ADM Date: 5 Loc: [facility] Room: Type: [facility] Attending Dr: Nickolas Hawthorne DO Copies to: [...] Jr., D.O. 08/10/2024 9:36 PM Dictation Location: [facility] Transcribed By: [facility] 08/10/242135 Dictated By: Tai Taylor Jr, DO 08/10/242133 Signed By: 08/10/242135 [facility] XR shoulder RT min 2V*on XR shoulder RT min 2V* [facility] [place] [address] XRay Report Signed Patient: Melanie Espinoza MR#: [id number] 6 : 1955 Acct:[id number] Age/Sex: 69 / F ADM Date: 08/10/24 [...] Jr., D.O. 08/10/2024 9:36 PM Dictation Location: [facility] Transcribed By: [facility] 08/10/242135 Dictated By: Tai Taylor Jr, DO 08/10/242133 Signed By: 08/10/242135 Normal [facility] Office Visiton 08-07-2024 Follow-up visit [id number] Melanie Espinoza 1955 F Date Provider Department Center 08/07/2024 [id number]-LJHLUZLEONIE JOYA KARI [facility] Family History Problem Relation Age of Onset Hypertension Mother Stroke Mother Heart attack Father Family Status - Relation Status Age at Mother Father Level of Service:64750 [place] OFFICE/OUTPATIENT ESTABLISHED LOW MDM 20 MIN Reason for Visit and Comments: Hyperlipidemia [182] Hypertension [135475] Coronary Artery Disease [187] Follow-up [566081] Normal [facility] X-ray reportOrdered By: Giovanni Taylor on 07-02-2024 Study report [facility] [address] [place] [address] XRay Report Signed Patient: Melanie Espinoza MR#: [id number] : 1955 Acct:[id number] Age/Sex: 69 / F ADM Date: 5 Loc: [facility] Room: Type: REG CLI Attending Dr: Nickolas Hawthorne DO Copies to: Nickolas Hawthorne DO~ Ordering Provider: Nickolas Hawthorne DO Date of Service: 07/02/24 XR/XR knee RT 4V*: M25.561 - Pain in right knee ([id number]) XR/XR knee LT 2V: M25.561 - Pain [...] Taylor Jr., D.OSofía07/02/2024 3:55 PM Dictation Location: [place] [address] Transcribed By: [facility] 07/02/24 1555 Dictated By: Tai Taylor Jr, DO 07/02/24 1554 Signed By: 07/02/24 1555 [facility] XR knee RT 4V*on 07-02-2024 XR knee RT 4V* [facility] [address] [place] [address] XRay Report Signed Patient: Melanie Espinoza MR#: [id number] 6 : 1955 Acct:[id number] Age/Sex: 69 / F ADM Date: 07/02/24 Loc: [facility] Room: Type: [facility] Attending Dr: Nickolas Hawthorne DO Copies to: Nickolas Hawthorne DO Ordering Provider: Nickolas Hawthorne DO Date of Service: 07/02/24 XR/XR knee RT 4V*: M25.561 - Pain in right knee ([id number]) XR/XR knee LT 2V: M25.561 - Pain [...] Taylor Jr., D.OSofía07/02/2024 3:55 PM Dictation Location: [facility]- Transcribed By: [facility] 07/02/241554 Dictated By: Tai Taylor Jr DO 07/02/241553 Signed By: 07/02/241554 Normal [facility] Follow-Upon 06-25-2024 Follow-Up [id number] Melanie Espinoza 1955 F Date Provider Department Center 06/25/2024 [address] [facility] ORTHO MPORTHO Family History Problem Relation Age of Onset Hypertension Mother Stroke Mother Heart attack Father Family Status - Relation Status Age at Mother Father Level of Service:11129 [place] OFFICE/OUTPATIENT ESTABLISHED LOW MDM 20 MIN (GC) Reason for Visit and Comments: Pain [136] Normal [facility] XR shoulder RT min 2V*on XR shoulder RT min 2V* [facility] [address] [place] [address] XRay Report Signed Patient: Melanie Espinoza MR#: [id number] 6 : 1955 Acct:[id number] Age/Sex: 68 / F ADM Date: 03/31/24 Loc: [facility] Room: Type: [facility] Attending Dr: Nickolas Hawthorne DO Copies to: [...] Ligia Carrasquillo M.D.03/31/2024 3:19 PM Dictation Location: [place] [address] Transcribed By: [facility] 03/31/24 151 Dictated By: Ligia Carrasquillo MD 03/31/241516 Signed By: 03/31/241518 Normal [facility] X-ray reportOrdered By: Emma Bettencourt on 02-24-2024 Study report [facility] [address] [place] [address] XRay Report Signed Patient: Melanie Espinoza MR#: [id number] : 1955 Acct:[id number] Age/Sex: 68 / F ADM Date: 4 Loc: [facility] Room: Type: [facility] Attending Dr: Nickolas Hawthorne DO Copies to: [...] Bettencourt II, MD 02/24/241656 Signed By: 02/24/241658 [facility] Work Phone: XR shoulder RT min 2V*on XR shoulder RT min 2V* [facility] [address] [place] [address] XRay Report Signed Patient: Melanie Espinoza MR#: [id number] 6 : 1955 Acct:[id number] Age/Sex: 68 / F ADM Date: 02/24/24 Loc: [facility] Room: Type: [facility] Attending Dr: Nickolas Hawthorne DO Copies to: [...] Emma Bettencourt M.D.02/24/2024 4:59 PM Dictation Location: RADIO--24 Transcribed By: DARYA 02/24/241658 Dictated By: Emma Bettencourt II, MD 02/24/241656 Signed By: 02/24/241658 Normal [facility] Aerobic Cultureon 02-12-2024 Aerobic Culture Comment right shoulder Synovial Fluid Result Tab Codes Rare Normal Skin Chloé 2 Days Growth present in Thio broth only Comment right shoulder Synovial Fluid Anaerobic Culture Results No Anaerobes Isolated 3 Days Comment right shoulder Synovial Fluid Gram Stain Result No Bacteria Seen PERFORMED BY: [place] [address] PATHOLOGIST SENIOR INFORMATION SECURITY ANALYST TAYA CRESPO M.D. Normal [facility] Comment on above: Performed By: #### C UMRSA, UA #### [address] Aerobic cultureOrdered By: Jonh Hawthorne on 02-12-2024 Bacteria identified Aer cx Nom (Unsp spec) Aerobic culture [facility] Anaerobic cultureOrdered By: Nickolas Hawthorne on 02-12-2024 Bacteria identified Anaer cx Nom (Unsp spec) Anaerobic culture [facility] Automated basophil %Ordered By: Nickolas Hawthorne on 02-12-2024 Basophils/100 WBC (Bld) 0.9 % Normal . [facility] Comment on above: Performed By: #### E SR, CBC, DDIMER, CRP #### [address] Automated basophil countOrde red By: Nickolas Hawthorne on 02-12-2024 Basophils (Bld) [#/Vol] 0.1 10*3/uL Normal 0.0-0.2 [facility] Comment on above: Performed By: #### E SR, CBC, DDIMER, CRP #### [address] Automated blood monocyte cou ntOrdered By: Nickolas Hawthorne on 02-12-2024 Monocytes (Bld) [#/Vol] 0.6 10*3/uL Normal 0.0-0.8 [facility] Comment on above: Performed By: #### E SR, CBC, DDIMER, CRP #### [address] Automated eosinophil %Ordere d By: Nickolas Hawthorne on 02-12-2024 Eosinophils/100 WBC (Bld) 2.1 % Normal . [facility] Comment on above: Performed By: #### E SR, CBC, DDIMER, CRP #### [address] Automated eosinophil countOr dered By: Nickolas Hawthorne on 02-12-2024 Eosinophils (Bld) [#/Vol] 0.1 10*3/uL Normal 0.0-0.45 [facility] Comment on above: Performed By: #### E SR, CBC, DDIMER, CRP #### [address] Automated monocyte %Ordered By: Nickolas Hawthorne on 02-12-2024 Monocytes/100 WBC (Bld) 8.7 % Normal . [facility] Comment on above: Performed By: #### E SR, CBC, DDIMER, CRP #### [address] Automated neutrophil %Ordere d By: Nickolas Hawthorne on 02-12-2024 Neutrophils/100 WBC (Bld) 73.7 % Normal . [facility] Comment on above: Performed By: #### E SR, CBC, DDIMER, CRP #### [address] Basic Metabolic Panelon 10 Creatinine Clr Calc Pharmacy 44.31 Normal [facility] Comment on above: Result Comment: PERF ORMED BY: [place] [address] PATHOLOGIST SENIOR INFORMATION SECURITY ANALYST TAYA CRESPO M.D. Performed By: #### B MP #### [address] GFR/1.73 sq M.predicted MDRD (S/P/Bld) [Vol rate/Area] mL/min/{1.73_m2} Normal [facility] Comment on above: Performed By: #### B MP #### [address] Basophils Auto (Bld) [#/Vol] Ordered By: Nickolas Hawthorne on 02-12-2024 Basophils (Bld) [#/Vol] Automated basoph il count 0.0-0.2 [facility] Basophils/100 WBC Auto (Bld) Ordered By: Nickolas Hawthorne on 02-12-2024 Basophils/100 WBC (Bld) Automated basophil % . [facility] C reactive protein [Mass/vol ume] in Serum or PlasmaOrdered By: Nickolas Hawthorne on 02-12-2024 CRP [Mass/Vol] 0.6 mg/dL High 0.0-0.5 [facility] CRP [Mass/Vol] C reactive protein [Mass/volume] in Serum or Plasma High 0.0-0.5 [facility] C-Reactive Proteinon 024 C-Reactive Protein 0.6 mg/dL High 0.0-0.5 [facility] Comment on above: Result Comment: PERF ORMED BY: [address] [place] [address] PATHOLOGIST SENIOR INFORMATION SECURITY ANALYST TAYA CRESPO M.D. Performed By: #### E SR, CBC, DDIMER, CRP #### [facility] [address] [place] [address] [place] Calcium [Mass/volume] in Ser um or PlasmaOrdered By: Giancarlo Rojas on 02-12-2024 Calcium [Mass/Vol] 9.0 mg/dL Normal 8.6-10.3 [facility] Comment on above: Performed By: #### B MP #### [facility] [address] [place] [address] [place] Calcium [Mass/Vol] Calcium [Mass/volume] in Serum or Plasma 8.6-10.3 [facility] Carbon dioxide, total [Moles /volume] in Serum or PlasmaOrdered By: Giancarlo Rojas on 02-12-2024 CO2 [Moles/Vol] 27.2 mmol/L Normal 21.0-31.0 [facility] Comment on above: Performed By: #### B MP #### [facility] [address] [place] [id number] [place] CO2 [Moles/Vol] Carbon dioxide, total [Moles/volume] in Serum or Plasma 21.0-31.0 [facility] Cell Count Diff,Synovial Flu idon 02-12-2024 Appearance, Synovial Fluid Turbid Critically abnormal Clear [facility] Comment on above: Order Comment: Synov ial Fluid Source: right shoulder Synovial Fluid Site: right shoulder Performed By: #### C UMRSA, UA #### [facility] [address] Color, Synovial Fluid RED Normal [facility] Comment on above: Order Comment: Synov ial Fluid Source: right shoulder Synovial Fluid Site: right shoulder Performed By: #### C UMRSA, UA #### [facility] [address] [place] [address] [place] Color, Synovial Supernatant Red Normal [facility] Comment on above: Order Comment: Synov ial Fluid Source: right shoulder Synovial Fluid Site: right shoulder Result Comment: The reference interval and other method performance specifications have not been established for this body fluid. The test result must be integrated into the clinical context for interpretation. Performed By: #### C UMRSA, UA #### [facility] [address] Comments, Synovial Normal [facility] Comment on above: Order Comment: Synov ial Fluid Source: right shoulder Synovial Fluid Site: right shoulder Result Comment: Body fluid is partially clotted and/or cell clumps or debris are present. Fluid cell count and differential results may not be reliable. Clinical correlation is recommended. PERFORMED BY: [place] [address] PATHOLOGIST SENIOR INFORMATION SECURITY ANALYST TAYA CREPSO M.D. Performed By: #### C UMRSA, UA #### [facility] [address] [place] [address] [place] Eosinophils,Synovial Fluid 0 % Normal 0-2 [facility] Comment on above: Order Comment: Synov ial Fluid Source: right shoulder Synovial Fluid Site: right shoulder Performed By: #### C UMRSA, UA #### [facility] [address] [place] [id number] [place] Lymphocytes, Synovial Fluid 65 % Normal 0-74 [facility] Comment on above: Order Comment: Synov ial Fluid Source: right shoulder Synovial Fluid Site: right shoulder Performed By: #### C DYLANA, UA #### [facility] [address] Monocyte/Histiocyte,Syn ov.Fld. 23 % Normal 0-69 [facility] Comment on above: Order Comment: Synov ial Fluid Source: right shoulder Synovial Fluid Site: right shoulder Performed By: #### C DYLANA, UA #### [facility] [address] Neutrophils, Synovial Fluid 12 % Normal 0-24 [facility] Comment on above: Order Comment: Synov ial Fluid Source: right shoulder Synovial Fluid Site: right shoulder Performed By: #### C BERNABE, UA #### [facility] [address] [place] [id number] [facility] RBC, Synovial Fluid 062275 /uL High 0-0 [facility] Comment on above: Order Comment: Synov ial Fluid Source: right shoulder Synovial Fluid Site: right shoulder Result Comment: Body fluid is partially clotted and/or cell clumps or debris are present. Fluid cell count and differential results may not be reliable. Clinical correlation is recommended. Performed By: #### C DYLANA, UA #### [address] TNC, Synovial Fluid [address] High 0-150 [facility] Comment on above: Order [...] context for interpretation. Performed By: #### C UMAURYA, UA #### [facility] [address] Cells Counted Total [#] in B maurice fluidOrdered By: Nickolas Hawthorne on 02-12-2024 Cells Counted Total (Body fld) [#] 98926 mm^3 High 0-150 [facility] Comment on above: Body fluid is [...] Total [#] in Body fluid High 0-150 [facility] Comment on above: Body fluid is [...] on 02-12-2024 Chloride [Moles/Vol] 99 mmol/L Normal 98-107 [facility] Comment on above: Performed By: #### B MP #### [address] Chloride [Moles/Vol] Chloride [Moles/volume] in Serum or Plasma 98-107 [facility] Complete Blood Count Auto Di ffon 02-12-2024 Mean Corpuscular HGB Conc 33.0 g/dL Normal 32.0-35.0 [facility] Comment on above: Performed By: #### E SR, CBC, DDIMER, CRP #### [address] NRBC% 0.1 /100{WBC} Normal 0-0.5 [facility] Comment on above: Performed By: #### E SR, CBC, DDIMER, CRP #### [facility] [address] Creatinine [Mass/volume] in Serum or PlasmaOrdered By: Giancarlo Rojas on 02-12-2024 Creatinine [Mass/Vol] 0.40 mg/dL Low 0.60-1.20 [facility] Comment on above: Performed By: #### B MP #### [place] [address] [place] Creatinine [Mass/Vol] Creatinine [Mass/volume] in Serum or Plasma Low 0.60-1.20 [facility] D-Dimer High Sensitivityon 1 D-Dimer High Sensitivity 647 ng/mL High 0-243 [facility] Comment on above: Result Comment: [...] coagulation studies. Please contact the laboratory at [phone] for redraw instructions. PERFORMED BY: [place] [address] PATHOLOGIST SENIOR INFORMATION SECURITY ANALYST TAYA CRESPO M.D. Performed By: #### E SR, CBC, DDIMER, CRP #### [address] Determination of appearance of body fluidOrdered By: Nickolas Hawthorne on 02-12-2024 Appearance (Body fld) Turbid Abnormal Clear [facility] Appearance (Body fld) Determination of appearance of body fluid Abnormal Clear [facility] Eosinophils Auto (Bld) [#/Vo l]Ordered By: Nickolas Hawthorne on 02-12-2024 Eosinophils (Bld) [#/Vol] Automated eosinophil count 0.0-0.45 [facility] Eosinophils/100 WBC Auto (Bl d)Ordered By: Nickolas Hawthorne on 02-12-2024 Eosinophils/100 WBC (Bld) Automated eosinophil % . [facility] Erythrocyte Sedimentation Ra camila 02-12-2024 ESR (Bld) [Velocity] 13 mm/h Normal 0-29 [facility] Comment on above: Result Comment: PERF ORMED BY: [place] [address] PATHOLOGIST SENIOR INFORMATION SECURITY ANALYST TAYA CRESPO M.D. Performed By: #### E SR, CBC, DDIMER, CRP #### [address] Erythrocyte distribution wid th Auto (RBC) [Ratio]Ordered By: Nickolas Hawthorne on 02-12-2024 Erythrocyte distribution width (RBC) [Ratio] Erythrocyte distribution width [Ratio] by Automated count 11.9-15.3 [facility] Erythrocyte distribution wid th [Ratio] by Automated countOrdered By: Nickolas Hawthorne on 02-12-2024 Erythrocyte distribution width (RBC) [Ratio] 14.5 % Normal 11.-15.3 [facility] Comment on above: Performed By: #### E SR, CBC, DDIMER, CRP #### [facility] [address] [place] [address] Erythrocyte sedimentation ra te by Photometric methodOrdered By: Nickolas Hawthorne on 02-12-2024 ESR Photometric method (Bld) [Velocity] 13 mm/hr [facility] ESR Photometric method (Bld) [Velocity] Erythrocyte sedimentation rate by Photometric method [facility] Erythrocytes [#/volume] in B lood by Automated countOrdered By: Nickolas Hawthorne on 02-12-2024 RBC (Bld) [#/Vol] 4.77 10*6/uL Normal 3.60-5.00 [facility] Comment on above: Performed By: #### E SR, CBC, DDIMER, CRP #### [facility] [address] [place] [address] Evaluation of color of body fluidOrdered By: Nickolas Hawthorne on 02-12-2024 Color (Body fld) Red [facility] Color (Body fld) Evaluation of color of body fluid [facility] Fibrin D-dimer [Presence] in Platelet poor plasma by Latex agglutinationOrdered By: Nickolas Hawthorne on 02-12-2024 Fibrin D-dimer LA Ql (PPP) 647 ng/mL High 0-243 [facility] Comment on above: The reference range [...] coagulation studies. Please contact the laboratory at [phone] for redraw instructions. Fibrin D-dimer LA Ql (PPP) Fibrin D-dimer [Presence] in Platelet poor plasma by Latex agglutination High 0-243 [facility] Comment on above: The reference range [...] coagulation studies. Please contact the laboratory at [phone] for redraw instructions. Glucose [Mass/volume] in Ser um or PlasmaOrdered By: Giancarlo Rojas on 02-12-2024 Glucose [Mass/Vol] 92 mg/dL Normal 70-100 [facility] Comment on above: ADA recommended refe rence rangeRandom Glucose Reference Range is dependent on time and content of last meal. Glucose of more than 200 mg/dL in a nonstressed, ambulatory subject supports the diagnosis of Diabetes Mellitus. Result Comment: [place] om Glucose Reference Range is dependent on time and content of last meal. Glucose of more than 200 mg/dL in a nonstressed, ambulatory subject supports the diagnosis of Diabetes Mellitus. ADA recommended reference range Performed By: #### B MP #### [address] Glucose [Mass/Vol] Glucose [Mass/volume] in Serum or Plasma 70-100 [facility] Comment on above: ADA recommended refe rence rangeRandom Glucose Reference Range is dependent on time and content of last meal. Glucose of more than 200 mg/dL in a nonstressed, ambulatory subject supports the diagnosis of Diabetes Mellitus. Gram Stainon 02-12-2024 Microscopic observation Gram stain Nom (Unsp spec) Comment right shoulder Synovial Fluid Gram Stain Result No Bacteria Seen PERFORMED BY: [place] [address] PATHOLOGIST SENIOR INFORMATION SECURITY ANALYST TAYA CRESPO M.D. Normal [facility] Comment on above: Performed By: #### C UMRSA, UA #### [address] Gram stain for investigation of transfusion reactionOrdered By: Nickolas Hawthorne on 02-12-2024 Microscopic observation Gram stain Nom (Unsp spec) No Anaerobes Isolated 1 Day [facility] Gram stain microscopyOrdered By: Nickolas Hawthorne on 02-12-2024 Microscopic observation Gram stain Nom (Unsp spec) Gram stain microscopy [facility] Hematocrit Auto (Bld) [Volum e fraction]Ordered By: Nickolas Hawthorne on 02-12-2024 Hematocrit (Bld) [Volume fraction] Hematocrit [Volume Fraction] of Blood by Automated count 34.0-46.4 [facility] Hematocrit [Volume Fraction] of Blood by Automated countOrdered By: Nickolas Hawthorne on 02-12-2024 Hematocrit (Bld) [Volume fraction] 41.5 % Normal 34.0-46.4 [facility] Comment on above: Performed By: #### E SR, CBC, DDIMER, CRP #### [address] Hemoglobin [Mass/volume] in BloodOrdered By: Nickolas Hawthorne on 02-12-2024 Hemoglobin (Bld) [Mass/Vol] 13.7 g/dL Normal 11.8-15.4 [facility] Comment on above: Performed By: #### E SR, CBC, DDIMER, CRP #### [facility] [address] Hemoglobin (Bld) [Mass/Vol] Hemoglobin [Mass/volume] in Blood 11.8-15.4 [facility] Emery 02-12-2024 L Specimen: [id number] Received: 02/12/24 Status: ESTEFANI Christianson Num: [id number] Spec Type: Surgical Subm Dr: Nickolas Hawthorne DO Tissues: A Synovium-Biopsy or tissue (DEEP SYNOVIAL #1) B Synovium-Biopsy or tissue (DEEP SYNOVIAL #2) C Synovium-Biopsy or tissue (DEEP SYNOVIAL #3) Procedures: HE/3, Gross/Micro L4/3, FS HE/6 Age/ Patient Sex Location Account Attending Physician Melanie Espinoza 68/F [place] [id number] Nickolas Hawthorne DO SPEC NUM: [id number] RECD: 02/12/24 STATUS: ESTEFANI CHRISTIANSON NUM: [id number] AVERY: 02/12/24- SUBM DR: Nickolas Hawthorne DO ENTERED: 02/12/24 [facility] DR: SPEC TYPE: Surgical DEPT: S ENTERED BY: [id number] RECV BY: [id number] ORDERED: HE/3, Gross/Micro L4/3, FS HE/6 ORDERED: [...] otherwise also without any obvious acute inflammation Specimen: [id number] Received: 02/12/24 Status: ESTEFANI Christianson Num: [id number] Spec Type: Surgical Subm Dr: Nickolas Hawthorne DO Tissues: A Synovium-Biopsy or tissue (DEEP SYNOVIAL #1) B Synovium-Biopsy or tissue (DEEP SYNOVIAL #2) C Synovium-Biopsy or tissue (DEEP SYNOVIAL #3) Procedures: HE/3, Gross/Micro L4/3, FS HE/6 Patient: Melanie Espinoza [id number] (Continued) Specimen: [id number] Received: 02/12/24 (Continued) Signed (signature on file) Kane Claudio MD 02/17/24 3236 Specimen: [id number] Received: 02/12/24 Status: ESTEFANI Christianson Num: [id number] Spec Type: Surgical Subm Dr: Nickolas Hawthorne DO Tissues: A Synovium-Biopsy or tissue (DEEP SYNOVIAL #1) B Synovium-Biopsy or tissue (DEEP SYNOVIAL #2) C Synovium-Biopsy or tissue (DEEP SYNOVIAL #3) Procedures: HE/3, Gross/Micro L4/3, FS HE/6 Patient: Melanie Espinoza [id number] (Continued) Specimen: [id number] Received: 02/12/24 (Continued) Clinical Information Rt shoulder pain, history of reverse Rt shoulder Gross Description A. Received fresh for frozen section labeled deep synovial #1 is an ovoid portion of mclaughlin-jj to pink, fibromembranous tissue, 1.5 x 0.8 x 0.2 cm. The specimen is entirely submitted for frozen section as A1. (1, ns, [id number] A) ANAHY Kam. Received fresh for frozen section labeled deep synovial #2 is an ovoid sheet of mclaughlin- jj to pink, fibromembranous tissue, 0.9 x 0.8 x 0.3 cm. The specimen is entirely submitted for frozen section as B1. (1, ns, [id number] B) C. Received fresh for frozen section labeled deep synovial #3 is an ovoid sheet of jj- pink to yellow fibromembranous tissue, 1.3 x 0.9 x 0.3 cm. The specimen is entirely submitted for frozen section as C1. (1, ns, [id number] C) Intraoperative Diagnosis A, -Rare neutrophils seen B, -Rare neutrophils seen C, -Rare neutrophils seen Reported by Dr. Dill on 02-12-24 Microscopic Description Microscopic examinations are performed supporting the above interpretation CPT Codes 11842i9 95509c1 Specimen: [id number] Received: 02/12/24 Status: ESTEFANI Christianson Num: [id number] Spec Type: Surgical Subm Dr: Nickolas Hawthorne, DO Tissues: A Synovium-Biopsy or tissue (DEEP SYNOVIAL #1) B Synovium-Biopsy or tissue (DEEP SYNOVIAL #2) C Synovium-Biopsy or tissue (DEEP SYNOVIAL #3) Procedures: HE/3, Gross/Micro L4/3, FS HE/6 (more content not included)... Normal [facility] Leukocytes [#/volume] correc andrew for nucleated erythrocytes in Blood by Automated counOrdered By: Nickolas Hawthorne on 02-12-2024 WBC corrected for nucl RBC Auto (Bld) [#/Vol] 6.5 10*3/uL 3.8-11.6 [facility] WBC corrected for nucl RBC Auto (Bld) [#/Vol] Leukocytes [#/volume] corrected for nucleated erythrocytes in Blood by Automated coun 3.8-11.6 [facility] Leukocytes [#/volume] in Blo od by Automated countOrdered By: Nickolas Hawthorne on 02-12-2024 WBC (Bld) [#/Vol] 6.5 10*3/uL Normal 3.8-11.6 [facility] Comment on above: Performed By: #### E SR, CBC, DDIMER, CRP #### [facility] [address] [place] [address] Lymphocytes Auto (Bld) [#/Vo l]Ordered By: Nickolas Hawthorne on 02-12-2024 Lymphocytes (Bld) [#/Vol] Lymphocytes [#/volume] in Blood by Automated count Low 1.00-4.8 [facility] Lymphocytes [#/volume] in Bl ood by Automated countOrdered By: Nickolas Hawthorne on 02-12-2024 Lymphocytes (Bld) [#/Vol] 0.9 10*3/uL Low 1.00-4.8 [facility] Comment on above: Performed By: #### E SR, CBC, DDIMER, CRP #### [facility] [address] [place] [address] Lymphocytes/100 WBC Auto (Bl d)Ordered By: Nickolas Hawthorne on 02-12-2024 Lymphocytes/100 WBC (Bld) Lymphocytes/100 leukocytes in Blood by Automated count . [facility] Lymphocytes/100 leukocytes i n Blood by Automated countOrdered By: Nickolas Hawthorne on 02-12-2024 Lymphocytes/100 WBC (Bld) 14.6 % Normal . [facility] Comment on above: Performed By: #### E SR, CBC, DDIMER, CRP #### [facility] [address] [facility] Auto (RBC) [Entitic mass ]Ordered By: Nickolas Hawthorne on 02-12-2024 MCH (RBC) [Entitic mass] MCH [Entitic mass] by Automated count 24.7-34.3 [facility] MCH [Entitic mass] by Automa andrew countOrdered By: Nickolas Hawthorne on 02-12-2024 MCH (RBC) [Entitic mass] 28.7 pg Normal 24.7-34.3 [facility] Comment on above: Performed By: #### E SR, CBC, DDIMER, CRP #### [address] MCHC Auto (RBC) [Mass/Vol]Or dered By: Nickolas Hawthorne on 02-12-2024 MCHC (RBC) [Mass/Vol] 33.0 g/dL 32.0-35.0 [facility] MCHC (RBC) [Mass/Vol] MCHC [Mass/volume] by Automated count 32.0-35.0 [facility] MCV Auto (RBC) [Entitic vol] Ordered By: Nickolas Hawthorne on 02-12-2024 MCV (RBC) [Entitic vol] MCV [Entitic vol ume] by Automated count 80-100 [facility] MCV [Entitic volume] by Auto mated countOrdered By: Nickolas Hawthorne on 02-12-2024 MCV (RBC) [Entitic vol] 86.9 fL Normal 80-100 [facility] Comment on above: Performed By: #### E SR, CBC, DDIMER, CRP #### [facility] [address] Manual body fluid eosinophil s/100 leukocytesOrdered By: Nickolas Hawthorne on 02-12-2024 Eosinophils/100 WBC Manual cnt (Body fld) 0 % 0-2 [facility] Eosinophils/100 WBC Manual cnt (Body fld) Manual body fluid eosinophils/100 leukocytes 0-2 [facility] Manual body fluid erythrocyt es count (number/volume)Ordered By: Nickolas Hawthorne on 02-12-2024 RBC Manual cnt (Body fld) [#/Vol] 671370 /uL High 0-0 [facility] Comment on above: Body fluid is partia lly clotted and/or cell clumps or debris are present. Fluid cell count and differential results may not be reliable. Clinical correlation is recommended. RBC Manual cnt (Body fld) [#/Vol] Manual body fluid erythrocytes count (number/volume) High 0-0 [facility] Comment on above: Body fluid is partia lly clotted and/or cell clumps or debris are present. Fluid cell count and differential results may not be reliable. Clinical correlation is recommended. Manual body fluid lymphocyte s/100 leukocytesOrdered By: Nickolas Hawthorne on 02-12-2024 Lymphocytes/100 WBC Manual cnt (Body fld) 65 % 0-74 [facility] Lymphocytes/100 WBC Manual cnt (Body fld) Manual body fluid lymphocytes/100 leukocytes 0-74 [facility] Monocytes Auto (Bld) [#/Vol] Ordered By: Nickolas Hawthorne on 02-12-2024 Monocytes (Bld) [#/Vol] Automated blood monocyte count 0.0-0.8 [facility] Monocytes/100 WBC Auto (Bld) Ordered By: Nickolas Hawthorne on 02-12-2024 Monocytes/100 WBC (Bld) Automated monocyte % . [facility] Neutrophils Auto (Bld) [#/Vo l]Ordered By: Nickolas Hawthorne on 02-12-2024 Neutrophils (Bld) [#/Vol] Neutrophils [#/volume] in Blood by Automated count 1.8-7.7 [facility] Neutrophils [#/volume] in Bl ood by Automated countOrdered By: Nickolas Hawthorne on 02-12-2024 Neutrophils (Bld) [#/Vol] 4.8 10*3/uL Normal 1.8-7.7 [facility] Comment on above: Performed By: #### E SR, CBC, DDIMER, CRP #### [address] Neutrophils/100 WBC Auto (Bl d)Ordered By: Nickolas Hawthorne on 02-12-2024 Neutrophils/100 WBC (Bld) Automated neutrophil % . [facility] Neutrophils/100 WBC Manual c nt (Body fld)Ordered By: Nickolas Hawthorne on 02-12-2024 Neutrophils/100 WBC (Body fld) 12 % 0-24 [facility] Neutrophils/100 WBC (Body fld) Manual body fluid neutrophils/100 leukocytes 0-24 [facility] No Panel InformationOrdered By: Nickolas Hawthorne on 02-12-2024 Synovial Fluid Comment See comment [facility] Comment on above: Body fluid is partia lly clotted and/or cell clumps or debris are present. Fluid cell count and differential results may not be reliable. Clinical correlation is recommended. Synovial Fluid Supernatant Color Red [facility] Comment on above: The reference interv al and other method performance specifications have not been established for this body fluid. The test result must be integrated into the clinical context for interpretation. No Panel InformationOrdered By: Giancarlo Rojas on 02-12-2024 Estimated GFR (CKD-EPI) > 60.0 mL/Min [facility] Creatinine Clearance (Chem 44.31 [facility] Nucleated erythrocytes [Pres ence] in Blood by Automated countOrdered By: Nickolas Hawthorne on 02-12-2024 Nucleated RBC Auto Ql (Bld) 0.1 /100{WBC} 0-0.5 [facility] Nucleated RBC Auto Ql (Bld) Nucleated erythrocytes [Presence] in Blood by Automated count 0-0.5 [facility] Platelet mean volume Auto (B ld) [Entitic vol]Ordered By: Nickolas Hawthorne on 02-12-2024 Platelet mean volume (Bld) [Entitic vol] Platelet mean volume [Entitic volume] in Blood by Automated count 6.3-10.7 [facility] Platelet mean volume [Entiti c volume] in Blood by Automated countOrdered By: Nickolas Hawthorne on 02-12-2024 Platelet mean volume (Bld) [Entitic vol] 6.4 fL Normal 6.3-10.7 [facility] Comment on above: Performed By: #### E SR, CBC, DDIMER, CRP #### [facility] [address] [place] [address] [place] Platelets Auto (Bld) [#/Vol] Ordered By: Nickolas Hawthorne on 02-12-2024 Platelets (Bld) [#/Vol] Platelets [#/vol ume] in Blood by Automated count 150-450 [facility] Platelets [#/volume] in Bloo d by Automated countOrdered By: Nickolas Hawthorne on 02-12-2024 Platelets (Bld) [#/Vol] 411 10*3/uL Normal 150-450 [facility] Comment on above: Performed By: #### E SR, CBC, DDIMER, CRP #### [address] Potassium [Moles/volume] in Serum or PlasmaOrdered By: Giancarlo Rojas on 02-12-2024 Potassium [Moles/Vol] 4.3 mmol/L Normal 3.5-5.1 [facility] Comment on above: Performed By: #### B MP #### [facility] [address] [place] [address] Potassium [Moles/Vol] Potassium [Moles/volume] in Serum or Plasma 3.5-5.1 [facility] RBC Auto (Bld) [#/Vol]Ordere d By: Nickolas Hawthorne on 02-12-2024 RBC (Bld) [#/Vol] Erythrocytes [#/volume] in Blood by Automated count 3.60-5.00 [facility] Serum or plasma anion gap de terminationOrdered By: Giancarlo Rojas on 02-12-2024 Anion gap [Moles/Vol] 10.1 mmol/L Normal 6.0-15.0 [facility] Comment on above: Performed By: #### B MP #### [place] [address] [place] Anion gap [Moles/Vol] Serum or plasma anion gap determination 6.0-15.0 [facility] Sodium [Moles/volume] in Ser um or PlasmaOrdered By: Giancarlo Rojas on 02-12-2024 Sodium [Moles/Vol] 132 mmol/L Low 136-145 [facility] Comment on above: Performed By: #### B MP #### [facility] [address] [place] [id number] [place] Sodium [Moles/Vol] Sodium [Moles/volume] in Serum or Plasma Low 136-145 [facility] Synovial fluid differential cell countOrdered By: Nickolas Hawthorne on 02-12-2024 Differential panel (Syn fld) 23 % 0-69 [facility] Differential panel (Syn fld) Synovial fluid differential cell count 0-69 [facility] Type and Screenon 02-12-2024 ABO and Rh group Nom (Bld) Blood group O Rh(D) positive Normal [facility] Comment on above: Result Comment: PERF ORMED BY: [place] [address] PATHOLOGIST SENIOR INFORMATION SECURITY ANALYST TAYA CRESPO M.D. Urea nitrogen [Mass/volume] in Serum or PlasmaOrdered By: Giancarlo Rojas on 02-12-2024 Urea nitrogen [Mass/Vol] 12 mg/dL Normal 11-06 [facility] Comment on above: Performed By: #### B MP #### [facility] [address] [place] [id number] [place] Urea nitrogen [Mass/Vol] Urea nitrogen [Mass/volume] in Serum or Plasma 11-06 [facility] WBC Auto (Bld) [#/Vol]Ordere d By: Nickolas Hawthorne on 02-12-2024 WBC (Bld) [#/Vol] Leukocytes [#/volume] in Blood by Automated count 3.8-11.6 [facility] XR shoulder LT 1Von 02-12-20 24 XR shoulder LT 1V [facility] Main [place] [address] [place] [id number] XRay Report Signed Patient: Melanie Espinoza MR#: [id number] 6 : 1955 Acct:[id number] Age/Sex: 68 / F ADM Date: 02/12/24 Loc: IN Room: Type: [facility] Attending Dr: Nickolas Hawthorne DO Copies [...] Erick Carranza M.D.02/12/2024 7:16 PM Dictation Location: [place] [address] Transcribed By: [facility] 02/12/241915 Dictated By: Erick Carranza DO 02/12/241909 Signed By: 02/12/241915 Normal [facility] Alanine aminotransferase [En zymatic activity/volume] in Serum or PlasmaOrdered By: Nickolas Hawthorne on 01-29-2024 ALT [Catalytic activity/Vol] 12 U/L Normal [facility] Comment on above: Performed By: #### C MP wRFX A1C, CBC #### [address] ALT [Catalytic activity/Vol] Alanine aminotransferase [Enzymatic activity/volume] in Serum or Plasma [facility] Albumin [Mass/volume] in Ser um or Plasma by Bromocresol green (BCG) dye binding methoOrdered By: Nickolas Hawthorne on 01-29-2024 Albumin BCG dye [Mass/Vol] 4.0 g/dL 3.5-5.7 [facility] Albumin BCG dye [Mass/Vol] Albumin [Mass/volume] in Serum or Plasma by Bromocresol green (BCG) dye binding metho 3.5-5.7 [facility] Alkaline phosphatase [Enzyma tic activity/volume] in Serum or PlasmaOrdered By: Nickolas Hawthorne on 01-29-2024 ALP [Catalytic activity/Vol] 89 U/L Normal 34-104 [facility] Comment on above: Result Comment: PERF ORMED BY: [facility] [address] [place] [id number] PATHOLOGIST SENIOR INFORMATION SECURITY ANALYST TAYA CRESPO M.D. Performed By: #### C MP wRFX A1C, CBC #### [facility] [address] [place] [address] ALP [Catalytic activity/Vol] Alkaline phosphatase [Enzymatic activity/volume] in Serum or Plasma 34-104 [facility] Appearance of UrineOrdered B y: Nickolas Hawthorne on 01-29-2024 Appearance (U) Urine appearance Clear [facility] Aspartate aminotransferase [ Enzymatic activity/volume] in Serum or PlasmaOrdered By: Nickolas Hawthorne on 01-29-2024 AST [Catalytic activity/Vol] 18 U/L Normal 1339 [facility] Comment on above: Performed By: #### C MP wRFX A1C, CBC #### [address] AST [Catalytic activity/Vol] Aspartate aminotransferase [Enzymatic activity/volume] in Serum or Plasma 13 [facility] Automated basophil %Ordered By: Nickolas Hawthorne on 01-29-2024 Basophils/100 WBC (Bld) 0.7 % Normal . [facility] Comment on above: Performed By: #### C MP wRFX A1C, CBC #### [facility] [address] [place] [address] Automated basophil countOrde red By: Nickolas Hawthorne on 01-29-2024 Basophils (Bld) [#/Vol] 0.1 10*3/uL Normal 0.0-0.2 [facility] Comment on above: Result Comment: PERF ORMED BY: [place] [address] PATHOLOGIST SENIOR INFORMATION SECURITY ANALYST TAYA CRESPO M.D. Performed By: #### C MP wRFX A1C, CBC #### [facility] [address] [place] [address] Automated blood monocyte cou ntOrdered By: Nickolas Hawthorne on 01-29-2024 Monocytes (Bld) [#/Vol] 0.7 10*3/uL Normal 0.0-0.8 [facility] Comment on above: Performed By: #### C MP wRFX A1C, CBC #### [facility] [address] Automated eosinophil %Ordere d By: Nickolas Hawthorne on 01-29-2024 Eosinophils/100 WBC (Bld) 2.0 % Normal . [facility] Comment on above: Performed By: #### C MP wRFX A1C, CBC #### [facility] [address] Automated eosinophil countOr dered By: Nickolas Hawthorne on 01-29-2024 Eosinophils (Bld) [#/Vol] 0.2 10*3/uL Normal 0.0-0.45 [facility] Comment on above: Performed By: #### C MP wRFX A1C, CBC #### [facility] [address] Automated monocyte %Ordered By: Nickolas Hawthorne on 01-29-2024 Monocytes/100 WBC (Bld) 6.3 % Normal . [facility] Comment on above: Performed By: #### C MP wRFX A1C, CBC #### [address] Automated neutrophil %Ordere d By: Nickolas Hawthorne on 01-29-2024 Neutrophils/100 WBC (Bld) 81.1 % Normal . [facility] Comment on above: Performed By: #### C MP wRFX A1C, CBC #### [facility] [address] [place] [address] Basophils Auto (Bld) [#/Vol] Ordered By: Nickolas Hawthorne on 01-29-2024 Basophils (Bld) [#/Vol] Automated basoph il count 0.0-0.2 [facility] Basophils/100 WBC Auto (Bld) Ordered By: Nickolas Hawthorne on 01-29-2024 Basophils/100 WBC (Bld) Automated basophil % . [facility] Bilirubin Test strip Ql (U)O rdered By: Nickolas Hawthorne on 01-29-2024 Bilirubin Ql (U) Negative Negative [facility] Bilirubin Ql (U) Bilirubin.total [Presence] in Urine by Test strip Negative [facility] Bilirubin.total [Mass/volume ] in Serum or PlasmaOrdered By: Nickolas Hawthorne on 01-29-2024 Bilirubin [Mass/Vol] 0.2 mg/dL Low 0.3-1.0 [facility] Comment on above: Performed By: #### C MP wRFX A1C, CBC #### [facility] [address] Bilirubin [Mass/Vol] Bilirubin.total [Mass/volume] in Serum or Plasma Low 0.3-1.0 [facility] CMP with reflex to A1Con Albumin [Mass/Vol] 4.0 g/dL Normal 3.5-5.7 [facility] Comment on above: Performed By: #### C MP wRFX A1C, CBC #### [facility] [address] GFR/1.73 sq M.predicted MDRD (S/P/Bld) [Vol rate/Area] mL/min/{1.73_m2} Normal [facility] Comment on above: Performed By: #### C MP wRFX A1C, CBC #### [facility] [address] shoulder RT wo conon 01-13 CT shoulder RT wo con [facility] [place] [address] [place] [address] CT Scan Report Signed Patient: Melanie Espinoza MR#: [id number] 6 : 1955 Acct:[id number] Age/Sex: 68 / F ADM Date: 01/29/24 Loc: CT Room: Type: [facility] Attending Dr: Nickolas Hawthorne DO Copies to: [...] Emma Bettencourt M.D.01/29/2024 4:32 PM Dictation Location: [place] [address] Transcribed By: [facility] 01/29/24 1632 Dictated By: Emma Bettencourt II, MD 01/29/24 1629 Signed By: 01/29/24 1632 Normal [facility] Calcium [Mass/volume] in Ser um or PlasmaOrdered By: Nickolas Hawthorne on 01-29-2024 Calcium [Mass/Vol] 9.1 mg/dL Normal 8.6-10.3 [facility] Comment on above: Performed By: #### C MP wRFX A1C, CBC #### [address] Calcium [Mass/Vol] Calcium [Mass/volume] in Serum or Plasma 8.6-10.3 [facility] Carbon dioxide, total [Moles /volume] in Serum or PlasmaOrdered By: Nickolas Hawthorne on 01-29-2024 CO2 [Moles/Vol] 27.1 mmol/L Normal 21.0-31.0 [facility] Comment on above: Performed By: #### C MP wRFX A1C, CBC #### [facility] [address] CO2 [Moles/Vol] Carbon dioxide, total [Moles/volume] in Serum or Plasma 21.0-31.0 [facility] Chloride [Moles/volume] in S mirna or PlasmaOrdered By: Nickolas Hawthorne on 01-29-2024 Chloride [Moles/Vol] 95 mmol/L Low 98-107 [facility] Comment on above: Performed By: #### C MP wRFX A1C, CBC #### [facility] [address] Chloride [Moles/Vol] Chloride [Moles/volume] in Serum or Plasma Low 98-107 [facility] Color Auto (U)Ordered By: Mat Hawthorne on 01-29-2024 Color (U) Color of Urine by Auto Yellow [facility] Color of Urine by AutoOrdere d By: Nickolas Hawthorne on 01-29-2024 Color (U) Colorless Normal [facility] Comment on above: Order Comment: Name Collection Type:: Clean-Voided Midstream Performed By: #### C UMRSA, UA #### [address] Complete Blood Count Auto Di ffon 01-29-2024 Mean Corpuscular HGB Conc 33.3 g/dL Normal 32.0-35.0 [facility] Comment on above: Performed By: #### C MP wRFX A1C, CBC #### [facility] [address] [place] [address] [place] NRBC% 0.1 /100{WBC} Normal 0-0.5 [facility] Comment on above: Performed By: #### C MP wRFX A1C, CBC #### [facility] [address] [place] [address] [place] Creatinine [Mass/volume] in Serum or PlasmaOrdered By: Nickolas Hawthorne on 01-29-2024 Creatinine [Mass/Vol] 0.40 mg/dL Low 0.60-1.20 [facility] Comment on above: Performed By: #### C MP wRFX A1C, CBC #### [address] Creatinine [Mass/Vol] Creatinine [Mass/volume] in Serum or Plasma Low 0.60-1.20 [facility] ECG 12 lead ECGon 01-29-2024 ECG 12 lead ECG [facility] [place] [address] [place] [address] Electrocardiograph Report Signed Patient: Melanie Espinoza MR#: [id number] 6 : 1955 Acct:[id number] Age/Sex: 68 / F ADM Date: 01/29/24 Loc: PS Room: Type: [facility] Attending Dr: Nickolas Hawthorne DO Ordering Provider: [...] change was found Confirmed by [facility] ([id number][facility] on 01/30/2024 4:29:01 PM Referred By: Electronically Signed By: LEI WAY MD [facility] Transcribed By: MUS Signed By Lei Way MD, FACC 01/30/24 3116 Normal [facility] Eosinophils Auto (Bld) [#/Vo l]Ordered By: Nickolas Hawthorne on 01-29-2024 Eosinophils (Bld) [#/Vol] Automated eosinophil count 0.0-0.45 [facility] Eosinophils/100 WBC Auto (Bl d)Ordered By: Nickolas Hawthorne on 01-29-2024 Eosinophils/100 WBC (Bld) Automated eosinophil % . [facility] Erythrocyte distribution wid th Auto (RBC) [Ratio]Ordered By: Nickolas Hawthorne on 01-29-2024 Erythrocyte distribution width (RBC) [Ratio] Erythrocyte distribution width [Ratio] by Automated count 11.9-15.3 [facility] Erythrocyte distribution wid th [Ratio] by Automated countOrdered By: Nickolas Hawthorne on 01-29-2024 Erythrocyte distribution width (RBC) [Ratio] 14.8 % Normal 11.9-15.3 [facility] Comment on above: Performed By: #### C MP wRFX A1C, CBC #### [facility] [address] Erythrocytes [#/volume] in B lood by Automated countOrdered By: Nickolas Hawthorne on 01-29-2024 RBC (Bld) [#/Vol] 4.40 10*6/uL Normal 3.60-5.00 [facility] Comment on above: Performed By: #### C MP wRFX A1C, CBC #### [facility] [address] Globulin Calc (S) [Mass/Vol] Ordered By: Nickolas Hawthorne on 01-29-2024 Globulin (S) [Mass/Vol] Serum globulin measurement by calculation (mass/volume) [facility] Glucose [Mass/volume] in Ser um or PlasmaOrdered By: Nickolas Hawthorne on 01-29-2024 Glucose [Mass/Vol] 96 mg/dL Normal 70-100 [facility] Comment on above: Performed By: #### C MP wRFX A1C, CBC #### [facility] [address] [place] [address] Glucose [Mass/Vol] Glucose [Mass/volume] in Serum or Plasma 70-100 [facility] Glucose [Mass/volume] in Uri ne by Test stripOrdered By: Nickolas Hawthorne on 01-29-2024 Glucose Test strip (U) [Mass/Vol] Normal mg/dL Normal [facility] Glucose Test strip (U) [Mass/Vol] Glucose [Mass/volume] in Urine by Test strip Normal [facility] Hematocrit Auto (Bld) [Volum e fraction]Ordered By: Nickolas Hawthorne on 01-29-2024 Hematocrit (Bld) [Volume fraction] Hematocrit [Volume Fraction] of Blood by Automated count 34.0-46.4 [facility] Hematocrit [Volume Fraction] of Blood by Automated countOrdered By: Nickolas Hawthorne on 01-29-2024 Hematocrit (Bld) [Volume fraction] 38.3 % Normal 34.0-46.4 [facility] Comment on above: Performed By: #### C MP wRFX A1C, CBC #### [facility] [address] Hemoglobin Test strip Ql (U) Ordered By: Nickolas Hawthorne on 01-29-2024 Hemoglobin Ql (U) Negative Negative [facility] Hemoglobin Ql (U) Hemoglobin [Presence] in Urine by Test strip Negative [facility] Hemoglobin [Mass/volume] in BloodOrdered By: Nickolas Hawthorne on 01-29-2024 Hemoglobin (Bld) [Mass/Vol] 12.8 g/dL Normal 11.8-15.4 [facility] Comment on above: Performed By: #### C MP wRFX A1C, CBC #### [facility] [address] Hemoglobin (Bld) [Mass/Vol] Hemoglobin [Mass/volume] in Blood 11.8-15.4 [facility] Ketones Test strip Ql (U)Ord ered By: Nickolas Hawthorne on 01-29-2024 Ketones Ql (U) Ketones [Presence] in Urine by Test strip Negative [facility] Ketones [Presence] in Urine by Test stripOrdered By: Nickolas Hawthorne on 01-29-2024 Ketones Ql (U) Negative Normal Negative [facility] Comment on above: Order Comment: Name Collection Type:: Clean-Voided Midstream Performed By: #### C UMRSA, UA #### [facility] [address] [place] [address] [place] Leukocyte esterase [Presence ] in Urine by Test stripOrdered By: Nickolas Hawthorne on 01-29-2024 Leukocyte esterase Test strip Ql (U) Negative Normal Negative [facility] Comment on above: Order Comment: Name Collection Type:: Clean-Voided Midstream Performed By: #### C UMRSA, UA #### [facility] [address] Leukocyte esterase Test strip Ql (U) Leukocyte esterase [Presence] in Urine by Test strip Negative [facility] Leukocytes [#/volume] correc andrew for nucleated erythrocytes in Blood by Automated counOrdered By: Nickolas Hawthorne on 01-29-2024 WBC corrected for nucl RBC Auto (Bld) [#/Vol] 11.0 10*3/uL 3.8-11.6 [facility] WBC corrected for nucl RBC Auto (Bld) [#/Vol] Leukocytes [#/volume] corrected for nucleated erythrocytes in Blood by Automated coun 3.8-11.6 [facility] Leukocytes [#/volume] in Blo od by Automated countOrdered By: Nickolas Hawthorne on 01-29-2024 WBC (Bld) [#/Vol] 11.0 10*3/uL Normal 3.8-11.6 [facility] Comment on above: Performed By: #### C MP wRFX A1C, CBC #### [facility] [address] Lymphocytes Auto (Bld) [#/Vo l]Ordered By: Nickolas Hawthorne on 01-29-2024 Lymphocytes (Bld) [#/Vol] Lymphocytes [#/volume] in Blood by Automated count 1.00-4.8 [facility] Lymphocytes [#/volume] in Bl ood by Automated countOrdered By: Nickolas Hawthorne on 01-29-2024 Lymphocytes (Bld) [#/Vol] 1.1 10*3/uL Normal 1.00-4.8 [facility] Comment on above: Performed By: #### C MP wRFX A1C, CBC #### [facility] [address] [place] [address] [place] Lymphocytes/100 WBC Auto (Bl d)Ordered By: Nickolas Hawthorne on 01-29-2024 Lymphocytes/100 WBC (Bld) Lymphocytes/100 leukocytes in Blood by Automated count . [facility] Lymphocytes/100 leukocytes i n Blood by Automated countOrdered By: Nickolas Hawthorne on 01-29-2024 Lymphocytes/100 WBC (Bld) 9.9 % Normal . [facility] Comment on above: Performed By: #### C MP wRFX A1C, CBC #### [facility] [address] MCH Auto (RBC) [Entitic mass ]Ordered By: Nickolas Hawthorne on 01-29-2024 MCH (RBC) [Entitic mass] MCH [Entitic mass] by Automated count 24.7-34.3 [facility] MCH [Entitic mass] by Automa andrew countOrdered By: Nickolas Hawthorne on 01-29-2024 MCH (RBC) [Entitic mass] 29.0 pg Normal 24.7-34.3 [facility] Comment on above: Performed By: #### C MP wRFX A1C, CBC #### [facility] [address] MCHC Auto (RBC) [Mass/Vol]Or dered By: Nickolas Hawthorne on 01-29-2024 MCHC (RBC) [Mass/Vol] 33.3 g/dL 32.0-35.0 [facility] MCHC (RBC) [Mass/Vol] MCHC [Mass/volume] by Automated count 32.0-35.0 [facility] MCV Auto (RBC) [Entitic vol] Ordered By: Nickolas Hawthorne on 01-29-2024 MCV (RBC) [Entitic vol] MCV [Entitic vol ume] by Automated count 80-100 [facility] MCV [Entitic volume] by Auto mated countOrdered By: Nickolas Hawthorne on 01-29-2024 MCV (RBC) [Entitic vol] 87.0 fL Normal 80-100 [facility] Comment on above: Performed By: #### C MP wRFX A1C, CBC #### [address] MRSA Cultureon 01-29-2024 MRSA Culture No MRSA Isolated 2 Days PERFORMED BY: [place] [address] PATHOLOGIST SENIOR INFORMATION SECURITY ANALYST TAYA CRESPO M.D. Normal [facility] Comment on above: Performed By: #### C UMRSA, UA #### [address] [place] [address] [place] Monocytes Auto (Bld) [#/Vol] Ordered By: Nickolas Hawthorne on 01-29-2024 Monocytes (Bld) [#/Vol] Automated blood monocyte count 0.0-0.8 [facility] Monocytes/100 WBC Auto (Bld) Ordered By: Nickolas Hawthorne on 01-29-2024 Monocytes/100 WBC (Bld) Automated monocyte % . [facility] Neutrophils Auto (Bld) [#/Vo l]Ordered By: Nickolas Hawthorne on 01-29-2024 Neutrophils (Bld) [#/Vol] Neutrophils [#/volume] in Blood by Automated count High 1.8-7.7 [facility] Neutrophils [#/volume] in Bl ood by Automated countOrdered By: Nickolas Hawthorne on 01-29-2024 Neutrophils (Bld) [#/Vol] 8.9 10*3/uL High 1.8-7.7 [facility] Comment on above: Performed By: #### C MP wRFX A1C, CBC #### [facility] [address] [id number] [facility] Neutrophils/100 WBC Auto (Bl d)Ordered By: Nickolas Hawthorne on 01-29-2024 Neutrophils/100 WBC (Bld) Automated neutrophil % . [facility] Nitrite Test strip Ql (U)Ord ered By: Nickolas Hawthorne on 01-29-2024 Nitrite Ql (U) Negative Negative [facility] Nitrite Ql (U) Nitrite [Presence] in Urine by Test strip Negative [facility] No Panel InformationOrdered By: Nickolas Hawthorne on 01-29-2024 Estimated GFR (CKD-EPI) > 60.0 mL/Min [facility] Creatinine Clearance (Chem N/A [facility] Nucleated erythrocytes [Pres ence] in Blood by Automated countOrdered By: Nickolas Hawthorne on 01-29-2024 Nucleated RBC Auto Ql (Bld) 0.1 /100{WBC} 0-0.5 [facility] Nucleated RBC Auto Ql (Bld) Nucleated erythrocytes [Presence] in Blood by Automated count 0-0.5 [facility] Platelet mean volume Auto (B ld) [Entitic vol]Ordered By: Nickolas Hawthorne on 01-29-2024 Platelet mean volume (Bld) [Entitic vol] Platelet mean volume [Entitic volume] in Blood by Automated count 6.3-10.7 [facility] Platelet mean volume [Entiti c volume] in Blood by Automated countOrdered By: Nickolas Hawthorne on 01-29-2024 Platelet mean volume (Bld) [Entitic vol] 6.3 fL Normal 6.3-10.7 [facility] Comment on above: Performed By: #### C MP wRFX A1C, CBC #### [facility] [address] Platelets Auto (Bld) [#/Vol] Ordered By: Nickolas Hawthorne on 01-29-2024 Platelets (Bld) [#/Vol] Platelets [#/vol ume] in Blood by Automated count 150-450 [facility] Platelets [#/volume] in Bloo d by Automated countOrdered By: Nickolas Hawthorne on 01-29-2024 Platelets (Bld) [#/Vol] 396 10*3/uL Normal 150-450 [facility] Comment on above: Performed By: #### C MP wRFX A1C, CBC #### [facility] [address] [place] [address] [place] Potassium [Moles/volume] in Serum or PlasmaOrdered By: Nickolas Hawthorne on 01-29-2024 Potassium [Moles/Vol] 4.8 mmol/L Normal 3.5-5.1 [facility] Comment on above: Performed By: #### C MP wRFX A1C, CBC #### [place] [address] [place] Potassium [Moles/Vol] Potassium [Moles/volume] in Serum or Plasma 3.5-5.1 [facility] Protein Test strip (U) [Mass /Vol]Ordered By: Nickolas Hawthorne on 01-29-2024 Protein (U) [Mass/Vol] Negative Negative [facility] Protein (U) [Mass/Vol] Protein [Mass/volume] in Urine by Test strip Negative [facility] Protein [Mass/volume] in Ser um or PlasmaOrdered By: Nickolas Hawthorne on 01-29-2024 Protein [Mass/Vol] 6.6 g/dL Normal 6.4-8.9 [facility] Comment on above: Performed By: #### C MP wRFX A1C, CBC #### [address] Protein [Mass/Vol] Protein [Mass/volume] in Serum or Plasma 6.4-8.9 [facility] RBC Auto (Bld) [#/Vol]Ordere d By: Nickolas Hawthorne on 01-29-2024 RBC (Bld) [#/Vol] Erythrocytes [#/volume] in Blood by Automated count 3.60-5.00 [facility] Serum globulin measurement b y calculation (mass/volume)Ordered By: Nickolas Hawthorne on 01-29-2024 Globulin (S) [Mass/Vol] 2.6 g/dL Normal [facility] Comment on above: Performed By: #### C MP wRFX A1C, CBC #### [address] Serum or plasma albumin/glob ulin mass ratioOrdered By: Nickolas Hawthorne on 01-29-2024 Albumin/Globulin [Mass ratio] 1.5 {ratio} Normal [facility] Comment on above: Performed By: #### C MP wRFX A1C, CBC #### [facility] [address] [place] [address] Albumin/Globulin [Mass ratio] Serum or plasma albumin/globulin mass ratio [facility] Serum or plasma anion gap de terminationOrdered By: Nickolas Hawthorne on 01-29-2024 Anion gap [Moles/Vol] 10.7 mmol/L Normal 6.0-15.0 [facility] Comment on above: Performed By: #### C MP wRFX A1C, CBC #### [facility] [address] [place] [address] Anion gap [Moles/Vol] Serum or plasma anion gap determination 6.0-15.0 [facility] Sodium [Moles/volume] in Ser um or PlasmaOrdered By: Nickolas Hawthorne on 01-29-2024 Sodium [Moles/Vol] 128 mmol/L Low 136-145 [facility] Comment on above: Performed By: #### C MP wRFX A1C, CBC #### [facility] [address] [place] [id number] [place] Sodium [Moles/Vol] Sodium [Moles/volume] in Serum or Plasma Low 136-145 [facility] Specific gravity Test strip (U) [Rel density]Ordered By: Nickolas Hawthorne on 01-29-2024 Specific gravity (U) [Rel density] 1.011 1.001-1.030 [facility] Specific gravity (U) [Rel density] Specific gravity of Urine by Test strip 1.001-1.030 [facility] Urea nitrogen [Mass/volume] in Serum or PlasmaOrdered By: Nickolas Hawthorne on 01-29-2024 Urea nitrogen [Mass/Vol] 15 mg/dL Normal 11-06 [facility] Comment on above: Performed By: #### C MP wRFX A1C, CBC #### [place] [address] [place] Urea nitrogen [Mass/Vol] Urea nitrogen [Mass/volume] in Serum or Plasma 11-06 [facility] Urinalysison 01-29-2024 Bilirubin,Urine Negative Normal Negative [facility] Comment on above: Order Comment: Name Collection Type:: Clean-Voided Midstream Performed By: #### C UMRSA, UA #### [place] [address] [place] Glucose Ql (U) Normal Normal Normal [facility] Comment on above: Order Comment: Name Collection Type:: Clean-Voided Midstream Performed By: #### C UMRSA, UA #### [facility] [address] [place] [id number] [place] Nitrite,Urine Negative Normal Negative [facility] Comment on above: Order Comment: Name Collection Type:: Clean-Voided Midstream Performed By: #### C UMRSA, UA #### [facility] [address] [place] [id number] [place] Occult Blood,Urine Negative Normal Negative [facility] Comment on above: Order Comment: Name Collection Type:: Clean-Voided Midstream Result Comment: PERF ORMED BY: [place] [address] PATHOLOGIST SENIOR INFORMATION SECURITY ANALYST TAYA CRESPO M.D. Performed By: #### C UMRSA, UA #### [address] Protein,Urine Negative Normal Negative [facility] Comment on above: Order Comment: Name Collection Type:: Clean-Voided Midstream Performed By: #### C UMRSA, UA #### [address] Specificy [place],Urine 1.011 Normal 1.001-1.030 [facility] Comment on above: Order Comment: Name Collection Type:: Clean-Voided Midstream Performed By: #### C UMRSA, UA #### [address] Urobilinogen,Urine Normal Normal Normal [facility] Comment on above: Order Comment: Name Collection Type:: Clean-Voided Midstream Performed By: #### C UMRSA, UA #### [address] Urine appearanceOrdered By: Nickolas Hawthorne on 01-29-2024 Appearance (U) Clear Normal Clear [facility] Comment on above: Order Comment: Name Collection Type:: Clean-Voided Midstream Performed By: #### C UMRSA, UA #### [address] Urobilinogen Test strip (U) [Mass/Vol]Ordered By: Nickolas Hawthorne on 01-29-2024 Urobilinogen (U) [Mass/Vol] Normal mg/dL Normal [facility] Urobilinogen (U) [Mass/Vol] Urobilinogen [Mass/volume] in Urine by Test strip Normal [facility] WBC Auto (Bld) [#/Vol]Ordere d By: Nickolas Hawthorne on 01-29-2024 WBC (Bld) [#/Vol] Leukocytes [#/volume] in Blood by Automated count 3.8-11.6 [facility] Wound methicillin resistant Staphylococcus aureus (MRSA) cultureOrdered By: Nickolas Hawthorne on 01-29-2024 MRSA isol Org specific cx Ql (Unsp spec) Wound methicillin resistant Staphylococcus aureus (MRSA) culture [facility] MRSA isol Org specific cx Ql (Unsp spec) No MRSA Isolated 2 Days [facility] pH Test strip (U)Ordered By: Nickolas Hawthorne on 01-29-2024 pH (U) pH of Urine by Test strip 5.0-9.0 [facility] pH of Urine by Test stripOrd ered By: Nickolas Hawthorne on 01-29-2024 pH (U) 7.0 [pH] Normal 5.0-9.0 [facility] Comment on above: Order Comment: Name Collection Type:: Clean-Voided Midstream Performed By: #### C BERNABE, UA #### [facility] [address] XR shoulder RT min 2V*on XR shoulder RT min 2V* [facility] [address] [place] [address] XRay Report Signed Patient: Melanie Espinoza MR#: [id number] 6 : 1955 Acct:[id number] Age/Sex: 68 / F ADM Date: 01/23/24 Loc: [facility] Room: Type: [facility] Attending Dr: Stevenson Corbin MD Copies to: [...] Erick Carranza M.D.01/23/2024 2:49 PM Dictation Location: [facility] Transcribed By: DARYA 01/23/24 1449 Dictated By: Erick Carranza DO 01/23/24 1439 Signed By: 01/23/24 1449 Normal [facility] 12-25-2023 CNPN Telephone (NEUWIL) MELANIE ESPINOZA ([id number]) 1955 F Date Time Provider Department 12/25/23 TAI HINOJOSA During your visit today, we recorded the following information about you: Esperanza Larios 12/25/2023 4:36 PM Signed Destiney calling to ask since pt insurance changed is there a alternative to Austedo that the pt can be giving. Please call her at [phone] Radha Tilley 12/26/2023 10:29 AM Signed Destiney at [facility] calling again, says patient is out of medication... requesting alternative medication Arnold Hall, RN 12/26/2023 10:40 AM Signed Spoke to Destiney at [facility]. Pt using inpatient pharmacy and her insurance changed, states Austedo is $7800/month, and Pt cannot afford, has not had medication in 3 days. Pharmacist recommended alternatives below, Destiney states Pt can afford either option, looking for whatever would be the best alternative. -Amantadine 100mg BID ($18/month) -Tetrabenazine 25mg BID ($1300/month) Please fax new script to [phone] Forwarded to Provider to review. Elise Burks 12/26/2023 3:22 PM Rima Cabello is calling back to see if you fax rx to them. caller would like a call back either way today if rx was faxed or not Caller can be reached at [phone] Tai Hinojosa MD 12/27/2023 2:06 PM Signed Ok I am ordering BOTH of these. Amantadine may cause forgetfulness and hallucinations TBZ is usually a 3x/day med, but I am only ordering is bid bc that's they priced. Lynnette Ortiz RN 12/27/2023 2:13 PM Signed Rx's faxed Spoke with membership secretary at [facility]. Destiney is not in today Will relay the message from me Martin Ortiz RN ext [phone] Allergies As of Date: 12/25/2023 Noted Allergy Reaction ERYTHROMYCIN 05/14/2023 16 - Unknown Date Reviewed: 11/12/2023 Reviewed by: Mary Gibbs MA - Fully Assessed Reason for Visit: Medication Problem [65] Primary Visit Diagnosis:Dyskinesia , tardive [G24.01] Order(s):tetrabenazi ne (XENAZINE) 25 mg tabletTake 1 tablet by [...] - cyclobenzaprine (FLEXERIL) 10 mg tablet - guaiFENesin-dextrome thorphan (ROBITUSSIN DM) 100-10 mg/5 mL syrup Take 10 mL by mouth every 6 hours as needed. - levothyroxine (SYNTHROID) 75 mcg tablet - traZODone (DESYREL) 100 mg tablet - clonazePAM (KLONOPIN) 1 mg tablet Take 1.5 tablets by mouth three times daily for 90 days. [including bedtime] - HYDROcodone-acetamin ophen (NORCO) 5-325 mg per tablet Take 1 [...] mg tablet (more content not included)... Normal [facility] CNOVon 11-12-2023 CNOV Office Visit ([facility]) MELANIE ESPINOZA ([id number]) 1955 F Date Time Provider Department 11/12/23 11:00 AM TAI HINOJOSA [facility] During your visit today, we recorded the following information about you: Pulse Blood pressure Weight 72/minute 136/80 43.1 kg Tai Hinojosa MD 11/12/2023 11:37 AM Signed November 12, 2023 Tai Hinojosa MD [address] / [address] [address] Esteban Garza MD ([facility]) [address] [place] [address] Melanie Espinoza : 1955 Interval History: Melanie [...] at bedtime. cyclobenzaprine (FLEXERIL) 10 mg tablet guaiFENesin-dextrome thorphan (ROBITUSSIN DM) 100-10 mg/5 mL syrup Take [...] times daily for 90 days. [including bedtime] HYDROcodone-acetamin ophen (NORCO) 5-325 mg per tablet Take 1 [...] wheelchair - (more content not included)... Normal [facility] XR SHOULDER RT 2V or >on [...] SIMON ANDRADE Date: 2022-06-04 10:57 Normal [facility] CBC AUTO DIFFon 04-19-2022 BASO # 0.0 103/ul Normal 0.0-0.1 [facility] Comment on above: Performed By: #### C BC #### [facility] [address] [address] [address] Miranda Claudio Basophils/100 WBC (Bld) 0.2 % Normal 0.2-2.0 [facility] Comment on above: Performed By: #### C BC #### [facility] [address] [address] [address] Miranda Claudio EO # 0.0 103/ul Normal 0.0-0.7 [facility] Comment on above: Performed By: #### C BC #### [facility] [address] [address] [address] Miranda Claudio Eosinophils/100 WBC (Bld) 0.4 % Critically low 0.9-7.0 [facility] Comment on above: Performed By: #### C BC #### [facility] [address] [address] [address] Miranda Claudio Erythrocyte distribution width (RBC) [Ratio] 13.7 % Normal 11.0-15.0 [facility] Comment on above: Performed By: #### C BC #### [facility] [address] [place] [address] Dr. Miranda Claudio Hematocrit (Bld) [Volume fraction] 33.6 % Critically low 36.0-48.0 [facility] Comment on above: Performed By: #### C BC #### [facility] [address] [address] [address] Miranda Claudio Hemoglobin (Bld) [Mass/Vol] 11.4 g/dL Critically low 12.0-16.0 [facility] Comment on above: Performed By: #### C BC #### [facility] [address] [address] [address] Miranda Claudio IG # 0.02 10e3/ul Normal 0.00-0.03 [facility] Comment on above: Performed By: #### C BC #### [facility] [address] [address] [address] Miranda Claudio IG % 0.4 % Normal 0.0-0.5 [facility] Comment on above: Performed By: #### C BC #### [facility] [address] [place] [address] Dr. Miranda Claudio LYMPH # 0.9 103/ul Critically low 1.2-3.8 [facility] Comment on above: Performed By: #### C BC #### [facility] [address] [place] [address] Dr. Miranda Claudio Lymphocytes/100 WBC (Bld) 18.4 % Critically low 20.5-60.0 [facility] Comment on above: Performed By: #### C BC #### [facility] [address] [place] [address] Dr. Miranda Claudio MANUAL DIFF REQ NO Normal [facility] Comment on above: Performed By: #### C BC #### [facility] [address] [place] [address] Dr. Miranda Claudio MCH (RBC) [Entitic mass] 26.5 pg Critically low 26.7-34.0 [facility] Comment on above: Performed By: #### C BC #### [facility] [address] [place] [address] Dr. Miranda Claudio MCHC (RBC) [Mass/Vol] 33.9 g/dL Normal 29.9-35.2 [facility] Comment on above: Performed By: #### C BC #### [facility] [address] [place] [address] Dr. Miranda Claudio MCV (RBC) [Entitic vol] 78.0 fL Critically low 81.0-99. 0 [facility] Comment on above: Performed By: #### C BC #### [facility] [address] [place] [address] Dr. Miranda Claudio MONO # 0.6 103/ul Normal 0.3-0.8 [facility] Comment on above: Performed By: #### C BC #### [facility] [address] [address] [address] Miranda Claudio Monocytes/100 WBC (Bld) 11.7 % Normal 1.7-12.0 [facility] Comment on above: Performed By: #### C BC #### [facility] [address] [place] [address] Dr. Miranda Claudio NEUT # 3.3 103/ul Normal 1.4-6.5 [facility] Comment on above: Performed By: #### C BC #### [facility] [address] [place] [address] Dr. Miranda Claudio Neutrophils/100 WBC (Bld) 68.9 % Normal 43.0-75.0 [facility] Comment on above: Performed By: #### C BC #### [facility] [address] [place] [address] Dr. Miranda Claudio Platelet mean volume (Bld) [Entitic vol] 8.1 fL Critically low 9.5-13.5 [facility] Comment on above: Performed By: #### C BC #### [facility] [address] [place] [address] Dr. Miranda Claudio PLT 394 103/ul Normal 150-450 [facility] Comment on above: Performed By: #### C BC #### [facility] [address] [place] [address] Dr. Miranda Claudio RBC 4.31 106/ul Normal 4.20-5.40 [facility] Comment on above: Performed By: #### C BC #### [facility] [address] [place] [address] Dr. Miranda Claudio WBC 4.8 103/ul Normal 4.0-11.0 [facility] Comment on above: Performed By: #### C BC #### [facility] [address] [place] [address] Dr. Miranda Claudio PROF 14(COMP METB)on 023 Albumin [Mass/Vol] 2.7 g/dL Critically low 3.4-5.0 [facility] Comment on above: Performed By: #### C MP #### [facility] [address] [place] [address] Dr. Miranda Claudio Albumin/Globulin [Mass ratio] 0.8 {ratio} Normal [facility] Comment on above: Performed By: #### C MP #### [facility] [address] [place] [address] Dr. Miranda Claudio ALP [Catalytic activity/Vol] 64 U/L Normal 46-116 [facility] Comment on above: Performed By: #### C MP #### [facility] [address] [place] [address] Dr. Miranda Claudio ALT [Catalytic activity/Vol] 33 U/L Normal 14-59 [facility] Comment on above: Performed By: #### C MP #### [facility] [address] [place] [address] Dr. Miranda Claudio Anion gap [Moles/Vol] 12.1 mmol/L Normal [facility] Comment on above: Performed By: #### C MP #### [facility] [address] [place] [address] Dr. Miranda Claudio AST [Catalytic activity/Vol] 64 U/L Critically high 15-37 [facility] Comment on above: Performed By: #### C MP #### [facility] [address] [place] [address] Dr. Miranda Claudio Bilirubin [Mass/Vol] 0.2 mg/dL Normal 0.2-1.0 [facility] Comment on above: Performed By: #### C MP #### [facility] [address] [place] [address] Dr. Miranda Claudio Calcium [Mass/Vol] 7.9 mg/dL Critically low 8.5-10.1 [facility] Comment on above: Performed By: #### C MP #### [facility] [address] [place] [address] Dr. Miranda Claudio Chloride [Moles/Vol] 98 mmol/L Normal 98-107 [facility] [facility] Comment on above: Performed By: #### C MP #### [facility] [address] [place] [address] Dr. Miranda Claudio CO2 [Moles/Vol] 26.7 mmol/L Normal 21.0-32.0 [facility] Comment on above: Performed By: #### C MP #### [facility] [address] [place] [address] Dr. Miranda Claudio Creatinine [Mass/Vol] 0.44 mg/dL Critically low 0.55-1.02 [facility] Comment on above: Performed By: #### C MP #### [facility] [address] [address] [address] Miranda Claudio EGFR-AF KAZAKH >60 Normal >=60 [facility] Comment on above: Performed By: #### C MP #### [facility] [address] [place] [address] Dr. Miranda Claudio EGFR-NON AF KAZAKH >60 Normal >=60 [facility] Comment on above: Performed By: #### C MP #### [facility] [address] [place] [address] Dr. Miranda Claudio Globulin (S) [Mass/Vol] 3.3 g/dL Normal T [facility] Comment on above: Performed By: #### C MP #### [facility] [address] [place] [address] Dr. Miranda Claudio Glucose [Mass/Vol] 78 mg/dL Normal 74-106 [facility] Comment on above: Performed By: #### C MP #### [facility] [address] [place] [address] Dr. Miranda Claudio Potassium [Moles/Vol] 2.8 mmol/L Critically low 3.5-5.1 [facility] Comment on above: Performed By: #### C MP #### [facility] [address] [place] [address] Dr. Miranda Claudio Protein [Mass/Vol] 6.0 g/dL Critically low 6.4-8.2 [facility] Comment on above: Performed By: #### C MP #### [facility] [address] [place] [address] Dr. Miranda Claudio Sodium [Moles/Vol] 134 mmol/L Critically low 136-145 [facility] Comment on above: Performed By: #### C MP #### [facility] [address] [place], [place] [address] Dr. Miranda Claudio Urea nitrogen [Mass/Vol] 4.0 mg/dL Critically low 7.0-18.0 [facility] Comment on above: Performed By: #### C MP #### [facility] [id number] Miranda Claudio Urea nitrogen/Creatinine [Mass ratio] 9.1 mg/mg Normal [facility] Comment on above: Performed By: #### C MP #### [facility] [address] [place], [place] [address] Dr. Miranda Claudio XR CHEST 1 Von 04-19-2022 XR CHEST 1 V EXAMINATION: XR CHEST 1 V HISTORY: COUGH COMPARISON: 01/27/2022 TECHNIQUE: [...] IMPRESSION: No acute disease. Electronically authenticated by: MC RAMIREZ Date: 2022-04-19 07:08 Normal [facility] CARDIAC EMMA ADMITon 022 CK [Catalytic activity/Vol] 412 U/L Critically high 26-192 [facility] Comment on above: Performed By: #### C JESS, CMP ####[facility] [address] [place], [place] [address]Dr. Miranda Claudio CK.MB [Mass/Vol] 19.37 ng/mL Critically high <=3.60 [facility] Comment on above: Performed By: #### C JASWINDERM, CMP ####[facility] [address] [place], [place] [address]OfDr. Miranda Claudio HSTROP 5.9 pg/mL Normal 4.0-51.3 [facility] Comment on above: Result Comment: CUT- OFF POINTS HAVE BEEN ESTABLISHED BASED ON THE FOURTH UNIVERSAL DEFINITIONS OF MYOCARDIAL INFARCTION. THE UPPER REFERENCE LIMIT (URL) OF TROPONIN, DEFINED THE 99TH PERCENTILE OF cTnI DISTRIBUTION IN A REFERENCE POPULATION, HAS BEEN CONFIRMED THE DECISION THRESHOLD FOR CT DIAGNOSIS. Performed By: #### C JESS, CMP ####[facility] [address] [address]Dr. Miranda Claudio MARKEL 82 ng/mL Normal 9-82 [facility] Comment on above: Performed By: #### C JSES, CMP ####[facility] [address] [place], [place] [address]Dr. Miranda González CBC AUTO DIFFon 03-23-2022 BASO # 0.1 103/ul Normal 0.0-0.1 [facility] Comment on above: Performed By: #### C BC ####[facility] [address] [place], [place] [address]Dr. Miranda Claudio Basophils/100 WBC (Bld) 0.5 % Normal 0.2-2.0 [facility] Comment on above: Performed By: #### C BC ####[facility] [address] [place], [place] [address]Dr. Miranda González EO # 0.5 103/ul Normal 0.0-0.7 [facility] Comment on above: Performed By: #### C BC ####[facility] [address] [place], [place] [address]Dr. Miranda González Eosinophils/100 WBC (Bld) 4.1 % Normal 0.9-7.0 [facility] Comment on above: Performed By: #### C BC ####[facility] [address] [place], [place] [address]Dr. Renettadeon Claudio Erythrocyte distribution width (RBC) [Ratio] 13.9 % Normal 11.0-15.0 [facility] Comment on above: Performed By: #### C BC ####[facility] [address] [place], [place] [address]Dr. Renettadeon Claudio Hematocrit (Bld) [Volume fraction] 35.1 % Critically low 36.0-48.0 [facility] Comment on above: Performed By: #### C BC ####[facility] [address] [id number]. Miranda Claudio Hemoglobin (Bld) [Mass/Vol] 11.7 g/dL Critically low 12.0-16.0 [facility] Comment on above: Performed By: #### C BC ####[facility] [address] [address]Dr. Miranda Claudio IG # 0.05 10e3/ul Critically high 0.00-0.03 [facility] Comment on above: Performed By: #### C BC ####[facility] [address] [address]Dr. Miranda Claudio IG % 0.4 % Normal 0.0-0.5 [facility] Comment on above: Performed By: #### C BC ####[facility] [address] [address]Dr. Miranda González LYMPH # 1.5 103/ul Normal 1.2-3.8 [facility] Comment on above: Performed By: #### C BC ####[facility] [address] [address]Dr. Miranda Claudio Lymphocytes/100 WBC (Bld) 12.7 % Critically low 20.5-60.0 [facility] Comment on above: Performed By: #### C BC ####[facility] [address] [address]Dr. Miranda González MANUAL DIFF REQ NO Normal [facility] Comment on above: Performed By: #### C BC ####[facility] [address] [address]Dr. Miranda Claudio MCH (RBC) [Entitic mass] 26.1 pg Critically low 26.7-34.0 [facility] Comment on above: Performed By: #### C BC ####[facility] [address] [address]Dr. Miranda Claudio MCHC (RBC) [Mass/Vol] 33.3 g/dL Normal 29.9-35.2 [facility] Comment on above: Performed By: #### C BC ####[facility] [address] [address]Dr. Miranda Claudio MCV (RBC) [Entitic vol] 78.3 fL Critically low 81.0-99. 0 [facility] Comment on above: Performed By: #### C BC ####[facility] [address] [address]Dr. Miranda Claudio MONO # 1.2 103/ul Critically high 0.3-0.8 [facility] Comment on above: Performed By: #### C BC ####[facility] [address] [address]Dr. Mrianda Claudio Monocytes/100 WBC (Bld) 10.5 % Normal 1.7-12.0 [facility] Comment on above: Performed By: #### C BC ####[facility] [address] [place], [place] [address]Dr. Miranda Claudio NEUT # 8.3 103/ul Critically high 1.4-6.5 [facility] Comment on above: Performed By: #### C BC ####[facility] [address] [address]Dr. Miranda Claudio Neutrophils/100 WBC (Bld) 71.8 % Normal 43.0-75.0 [facility] Comment on above: Performed By: #### C BC ####[facility] [address] [place], [place] [address]Dr. Miranda Claudio Platelet mean volume (Bld) [Entitic vol] 8.5 fL Critically low 9.5-13.5 [facility] Comment on above: Performed By: #### C BC ####[facility] [address] [id number]. Miranda Claudio PLT 349 103/ul Normal 150-450 [facility] Comment on above: Performed By: #### C BC ####[facility] [address] [address]Dr. Miranda Claudio RBC 4.48 106/ul Normal 4.20-5.40 [facility] Comment on above: Performed By: #### C BC ####[facility] [address] [place], [place] [address]AgSofía Claudio WBC 11.6 103/ul Critically high 4.0-11.0 [facility] Comment on above: Performed By: #### C BC ####[facility] [address] [place], [place] [address]Wr. Miranda Claudio Cov[facility]19 [facility]on SARS-CoV-2 (COVID-19) RNA LARY+probe Ql (Unsp spec) Not detected Normal NOT DETECTED [facility] Comment on above: Result Comment: When [...] for this test is supported by the Applied Psychology Professor of Health and Human Service's declaration that [...] used). Performed By: #### C VDTB #### [facility] [address] [address] [address] Miranda Claudio ER URINE PROFILEon 2 Bilirubin Ql (U) Negative Normal NEGATIVE [facility] Comment on above: Performed By: #### E RUR #### [facility] [address] [address] [address] Miranda Claudio Clarity (U) CLEAR Normal CLEAR [facility] Comment on above: Performed By: #### E RUR #### [facility] [address] [place] [address] Dr. Miranda Claudio Color (U) LT. YELLOW Normal YELLOW [facility] Comment on above: Performed By: #### E RUR #### [facility] [address] [address] [address] Miranda WICK A micrscopic examination will be performed if indicated. Normal [facility] Comment on above: Performed By: #### E RUR #### [facility] [address] [address] [address] Miranda Claudio Glucose Ql (U) Negative Normal NEGATIVE [facility] Comment on above: Performed By: #### E RUR #### [facility] [address] [place] [address] Dr. Miranda Claudio Hemoglobin Ql (U) Negative Normal NEGATIVE [facility] Comment on above: Performed By: #### E RUR #### [facility] [address] [place] [address] Dr. Miranda Claudio Ketones Ql (U) Negative Normal NEGATIVE [facility] Comment on above: Performed By: #### E RUR #### [facility] [address] [place] [address] Dr. Miranda Claudio LEUKOCYTES Negative Normal NEGATIVE [facility] Comment on above: Performed By: #### E RUR #### [facility] [address] [place] [address] Dr. Miranda Claudio Nitrite Ql (U) Negative Normal NEGATIVE [facility] Comment on above: Performed By: #### E RUR #### [facility] [address] [place] [address] Dr. Miranda Claudio pH (U) 6.5 [pH] Normal 5-9 [facility] Comment on above: Performed By: #### E RUR #### [facility] [address] [place] [address] Dr. Miranda Claudio SPEC GRAVITY <=1.005 Abnormal 1.005-<=1.02 5 [facility] Comment on above: Performed By: #### E RUR #### [facility] [address] [place] [address] Dr. Miranda Claudio UA PROTEIN Negative Normal NEGATIVE/ TRACE [facility] Comment on above: Performed By: #### E RUR #### [facility] [address] [place] [address] Dr. Miranda Claudio UR MICRO IND NOT INDICATED Normal [facility] Comment on above: Performed By: #### E RUR #### [facility] [address] [place] [address] Dr. Miranda Claudio Urobilinogen Qn (U) 0.2 {Muriel'U}/dL Normal 0.2 - 1. 0 [facility] Comment on above: Performed By: #### E RUR #### [facility] [address] [place] [address] Dr. Miranda Claudio LACTATE/LACTIC ACIDon 2021 Lactate [Moles/Vol] 0.9 mmol/L Normal 0.4-1.9 [facility] Comment on above: Performed By: #### L ACT #### [facility] [address] [place] [address] Dr. Miranda Claudio PROF 14(COMP METB)on 022 Albumin [Mass/Vol] 3.5 g/dL Normal 3.4-5.0 [facility] Comment on above: Performed By: #### C JESS, CMP #### [facility] [address] [place] [address] Dr. Miranda Claudio Albumin/Globulin [Mass ratio] 1.0 {ratio} Normal [facility] Comment on above: Performed By: #### C JASWINDERM, CMP #### [facility] [address] [place] [address] Dr. Miranda Claudio ALP [Catalytic activity/Vol] 73 U/L Normal 46-116 [facility] Comment on above: Performed By: #### C MADM, CMP #### [facility] [address] [place] [address] Dr. Miranda Claudio ALT [Catalytic activity/Vol] 16 U/L Normal 14-59 [facility] Comment on above: Performed By: #### C MADM, CMP #### [facility] [address] [place] [address] Dr. Miranda Claudio Anion gap [Moles/Vol] 14.4 mmol/L Normal [facility] Comment on above: Performed By: #### C MADM, CMP #### [facility] [address] [address] [address] Miranda Claudio AST [Catalytic activity/Vol] 26 U/L Normal 15-37 [facility] Comment on above: Performed By: #### C MADM, CMP #### [facility] [address] [place] [address] Dr. Miranda Claudio Bilirubin [Mass/Vol] 0.2 mg/dL Normal 0.2-1.0 [facility] Comment on above: Performed By: #### C MADM, CMP #### [facility] [address] [address] [address] Miranda Claudio Calcium [Mass/Vol] 8.3 mg/dL Critically low 8.5-10.1 [facility] Comment on above: Performed By: #### C MADM, CMP #### [facility] [address] [place] [address] Dr. Miranda Claudio Chloride [Moles/Vol] 93 mmol/L Critically low 98-107 [facility] Comment on above: Performed By: #### C MADM, CMP #### [facility] [address] [place] [address] Dr. Miranda Claudio CO2 [Moles/Vol] 23.5 mmol/L Normal 21.0-32.0 [facility] Comment on above: Performed By: #### C MADM, CMP #### [facility] [address] [place] [address] Dr. Miranda Claudio Creatinine [Mass/Vol] 0.54 mg/dL Critically low 0.55-1.02 [facility] Comment on above: Performed By: #### C MADM, CMP #### [facility] [address] [place] [address] Dr. Miranda Claudio EGFR-AF KAZAKH >60 Normal >=60 [facility] Comment on above: Performed By: #### C MADM, CMP #### [facility] [address] [place] [address] Dr. Miranda Claudio EGFR-NON AF KAZAKH >60 Normal >=60 [facility] Comment on above: Performed By: #### C JASWINDERM, CMP #### [facility] [address] [address] [address] Miranda Claudio Globulin (S) [Mass/Vol] 3.6 g/dL Normal T [facility] Comment on above: Performed By: #### C MADM, CMP #### [facility] [address] [address] [address] Miranda Claudio Glucose [Mass/Vol] 91 mg/dL Normal 74-106 [facility] Comment on above: Performed By: #### C JASWINDERM, CMP #### [facility] [address] [place] [address] Dr. Miranda Claudio Potassium [Moles/Vol] 3.9 mmol/L Normal 3.5-5.1 [facility] Comment on above: Performed By: #### C JASWINDERM, CMP #### [facility] [address] [place] [address] Dr. Miranda Claudio Protein [Mass/Vol] 7.1 g/dL Normal 6.4-8.2 [facility] Comment on above: Performed By: #### C JASWINDERM, CMP #### [facility] [address] [place] [address] Dr. Miranda Claudio Sodium [Moles/Vol] 127 mmol/L Critically low 136-145 [facility] Comment on above: Performed By: #### C JASWINDERM, CMP #### [facility] [address] [place] [address] Dr. Miranda Claudio Urea nitrogen [Mass/Vol] 8.0 mg/dL Normal 7.0-18.0 [facility] Comment on above: Performed By: #### C JASWINDERM, CMP #### [facility] [address] [place] [address] Dr. Miranda Claudio Urea nitrogen/Creatinine [Mass ratio] 14.8 mg/mg Normal [facility] Comment on above: Performed By: #### C JASWINDERM, CMP #### [facility] [address] [place] [address] Dr. Miranda Claudio TYPE AND SCREENon 03-23-2022 TYPE AND SCREEN Negative Normal [facility] Comment on above: Performed By: #### T NS ####[facility] [address] [address]Dr. Miranda Claudio NM HEPATOBILIARY SCAN W EFon [...] by: MESHA CARRASCO Date: 2022-02-23 11:03 Normal [facility] CBC AUTO DIFFon 01-27-2022 BASO # 0.1 103/ul Normal 0.0-0.1 [facility] Comment on above: Performed By: #### C BC #### [facility] [address] [address] [address] Miranda Claudio Basophils/100 WBC (Bld) 0.7 % Normal 0.2-2.0 [facility] Comment on above: Performed By: #### C BC #### [facility] [address] [address] [address] Miranda Claudio EO # 0.4 103/ul Normal 0.0-0.7 [facility] Comment on above: Performed By: #### C BC #### [facility] [address] [address] [address] Miranda Claudio Eosinophils/100 WBC (Bld) 4.0 % Normal 0.9-7.0 [facility] Comment on above: Performed By: #### C BC #### [facility] [address] [place] [address] Dr. Miranda Claudio Erythrocyte distribution width (RBC) [Ratio] 14.2 % Normal 11.0-15.0 [facility] Comment on above: Performed By: #### C BC #### [facility] [address] [place] [address] Dr. Miranda Claudio Hematocrit (Bld) [Volume fraction] 39.9 % Normal 36.0-48.0 [facility] Comment on above: Performed By: #### C BC #### [facility] [address] [place] [address] Dr. Miranda Claudio Hemoglobin (Bld) [Mass/Vol] 13.0 g/dL Normal 12.0-16.0 [facility] Comment on above: Performed By: #### C BC #### [facility] [address] [place] [address] Dr. Miranda Claudio IG # 0.03 10e3/ul Normal 0.00-0.03 [facility] Comment on above: Performed By: #### C BC #### [facility] [address] [place] [address] Dr. Miranda Claudio IG % 0.3 % Normal 0.0-0.5 [facility] Comment on above: Performed By: #### C BC #### [facility] [address] [place] [address] Dr. Miranda Claudio LYMPH # 2.2 103/ul Normal 1.2-3.8 [facility] Comment on above: Performed By: #### C BC #### [facility] [address] [place] [address] Dr. Miranda Claudio Lymphocytes/100 WBC (Bld) 23.6 % Normal 20.5-60.0 [facility] Comment on above: Performed By: #### C BC #### [facility] [address] [place] [address] Dr. Miranda Claudio MANUAL DIFF REQ NO Normal [facility] Comment on above: Performed By: #### C BC #### [facility] [address] [place] [address] Dr. Miranda Claudio MCH (RBC) [Entitic mass] 27.1 pg Normal 26.7-34.0 [facility] Comment on above: Performed By: #### C BC #### [facility] [address] [place] [address] Dr. Miranda Claudio MCHC (RBC) [Mass/Vol] 32.6 g/dL Normal 29.9-35.2 [facility] Comment on above: Performed By: #### C BC #### [facility] [address] [place] [address] Dr. Miranda Claudio MCV (RBC) [Entitic vol] 83.1 fL Normal 81.0-99.0 [facility] Comment on above: Performed By: #### C BC #### [facility] [address] [place] [address] Dr. Miranda Claudio MONO # 0.8 103/ul Normal 0.3-0.8 [facility] Comment on above: Performed By: #### C BC #### [facility] [address] [place] [address] Dr. Miranda Claudio Monocytes/100 WBC (Bld) 8.5 % Normal 1.7-12.0 [facility] Comment on above: Performed By: #### C BC #### [facility] [address] [place] [address] Dr. Miranda Claudio NEUT # 5.9 103/ul Normal 1.4-6.5 [facility] Comment on above: Performed By: #### C BC #### [facility] [address] [place] [address] Dr. Miarnda Claudio Neutrophils/100 WBC (Bld) 62.9 % Normal 43.0-75.0 [facility] Comment on above: Performed By: #### C BC #### [facility] [address] [place] [address] Dr. Miranda Claudio Platelet mean volume (Bld) [Entitic vol] 7.6 fL Critically low 9.5-13.5 [facility] Comment on above: Performed By: #### C BC #### [facility] [address] [place] [address] Dr. Miranda Claudio PLT 405 103/ul Normal 150-450 [facility] Comment on above: Performed By: #### C BC #### [facility] [address] [place] [address] Dr. Miranda Claudio RBC 4.80 106/ul Normal 4.20-5.40 [facility] Comment on above: Performed By: #### C BC #### [facility] [address] [address] [address] Miranda Claudio WBC 9.4 103/ul Normal 4.0-11.0 [facility] Comment on above: Performed By: #### C BC #### [facility] [address] [place] [address] Dr. Miranda Claudio ER URINE PROFILEon 2 Bilirubin Ql (U) Negative Normal NEGATIVE [facility] Comment on above: Performed By: #### U MICRO, ERUR ####[facility] [address] [place], [place] [address]Dr. Miranda Claudio Clarity (U) CLEAR Normal CLEAR [facility] Comment on above: Performed By: #### U MICRO, ERUR ####[facility] [address] [place], [place] [address]Dr. Miranda Claudio Color (U) LT. YELLOW Normal YELLOW [facility] Comment on above: Performed By: #### U MICRO, ERUR ####[facility] [address] [place], [place] [address]Dr. Miranda OLIVEROSD A micrscopic examination will be performed if indicated. Normal [facility] Comment on above: Performed By: #### U MICRO, ERUR ####[facility] [address] [address]Dr. Miranda Claudio Glucose Ql (U) Negative Normal NEGATIVE [facility] Comment on above: Performed By: #### U MICRO, ERUR ####[facility] [address] [address]Dr. Miranda Claudio Hemoglobin Ql (U) TRACE-LYSED Abnormal NEGATIVE [facility] Comment on above: Performed By: #### U MICRO, ERUR ####[facility] [address] [address]Dr. Miranda Claudio Ketones Ql (U) Negative Normal NEGATIVE [facility] Comment on above: Performed By: #### U MICRO, ERUR ####[facility] [address] [address]Dr. Miranda Claudio LEUKOCYTES Negative Normal NEGATIVE [facility] Comment on above: Performed By: #### U MICRO, ERUR ####[facility] [address] [address]Dr. Miranda Claudio Nitrite Ql (U) Negative Normal NEGATIVE [facility] Comment on above: Performed By: #### U MICRO, ERUR ####[facility] [address] [place], [place] [address]Dr. Miranda Claudio pH (U) 7.0 [pH] Normal 5-9 [facility] Comment on above: Performed By: #### U MICRO, ERUR ####[facility] [address] [place], [place] [address]Dr. Miranda Claudio SPEC GRAVITY <=1.005 Abnormal 1.005-<=1.02 5 [facility] Comment on above: Performed By: #### U MICRO, ERUR ####[facility] [facility] [address] [place], [place] [address]Dr. Miranda Claudio UA PROTEIN Negative Normal NEGATIVE/ TRACE [facility] Comment on above: Performed By: #### U MICRO, ERUR ####[facility] [address] [place], [place] [address]Dr. Miranda Claudio UR MICRO IND INDICATED Normal [facility] Comment on above: Performed By: #### U MICRO, ERUR ####[facility] [address] [place], [place] [address]Dr. Miranda Claudio Urobilinogen Qn (U) 0.2 {Muriel'U}/dL Normal 0.2 - 1. 0 [facility] Comment on above: Performed By: #### U MICRO, ERUR ####[facility] [address] [place], [place] [address]DrSofía Claudio PROF 14(COMP METB)on 01-27- 022 Albumin [Mass/Vol] 3.5 g/dL Normal 3.4-5.0 [facility] Comment on above: Performed By: #### C MP #### [facility] [address] [place] [address] Dr. Miranda Claudio Albumin/Globulin [Mass ratio] 1.0 {ratio} Normal [facility] Comment on above: Performed By: #### C MP #### [facility] [address] [place] [address] Dr. Miranda Claudio ALP [Catalytic activity/Vol] 66 U/L Normal 46-116 [facility] Comment on above: Performed By: #### C MP #### [facility] [address] [place] [address] Dr. Miranda Claudio ALT [Catalytic activity/Vol] 15 U/L Normal 14-59 [facility] Comment on above: Performed By: #### C MP #### [facility] [address] [place] [address] Dr. Miranda Claudio Anion gap [Moles/Vol] 7.1 mmol/L Normal [facility] Comment on above: Performed By: #### C MP #### [facility] [address] [place] [address] Dr. Miranda Claudio AST [Catalytic activity/Vol] 16 U/L Normal 15-37 [facility] Comment on above: Performed By: #### C MP #### [facility] [address] [place] [address] Dr. Miranda Claudio Bilirubin [Mass/Vol] 0.1 mg/dL Critically low 0.2-1.0 [facility] Comment on above: Performed By: #### C MP #### [facility] [address] [place] [address] Dr. Miranda Claudio Calcium [Mass/Vol] 9.1 mg/dL Normal 8.5-10.1 [facility] Comment on above: Performed By: #### C MP #### [facility] [address] [place] [address] Dr. Miranda Claudio Chloride [Moles/Vol] 100 mmol/L Normal 98-107 [facility] Comment on above: Performed By: #### C MP #### [facility] [address] [address] [address] Miranda Claudio CO2 [Moles/Vol] 30.7 mmol/L Normal 21.0-32.0 [facility] Comment on above: Performed By: #### C MP #### [facility] [address] [place] [address] Dr. Miranda Claudio Creatinine [Mass/Vol] 0.64 mg/dL Normal 0.55-1.02 [facility] Comment on above: Performed By: #### C MP #### [facility] [address] [place] [address] Dr. Miranda Claudio EGFR-AF KAZAKH >60 Normal >=60 [facility] Comment on above: Performed By: #### C MP #### [facility] [address] [place] [address] Dr. Miranda Claudio EGFR-NON AF KAZAKH >60 Normal >=60 [facility] Comment on above: Performed By: #### C MP #### [facility] [address] [address] [address] Miranda Claudio Globulin (S) [Mass/Vol] 3.6 g/dL Normal T [facility] Comment on above: Performed By: #### C MP #### [facility] [address] [place] [address] Dr. Miranda Claudio Glucose [Mass/Vol] 68 mg/dL Critically low 74-106 Th [facility] Comment on above: Performed By: #### C MP #### [facility] [address] [place] [address] Dr. Miranda Claudio Potassium [Moles/Vol] 3.8 mmol/L Normal 3.5-5.1 [facility] Comment on above: Performed By: #### C MP #### [facility] [address] [address] [address] Miranda Claudio Protein [Mass/Vol] 7.1 g/dL Normal 6.4-8.2 [facility] Comment on above: Performed By: #### C MP #### [facility] [address] [address] [address] Miranda Claudio Sodium [Moles/Vol] 134 mmol/L Critically low 136-145 [facility] Comment on above: Performed By: #### C MP #### [facility] [address] [address] [address] Miranda Claudio Urea nitrogen [Mass/Vol] 14.0 mg/dL Normal 7.0-18.0 [facility] Comment on above: Performed By: #### C MP #### [facility] [address] [address] [address] Miranda Claudio Urea nitrogen/Creatinine [Mass ratio] 21.9 mg/mg Normal [facility] Comment on above: Performed By: #### C MP #### [facility] [address] [address] [address] Miranda Claudio URINE MICROSCOPIC ONLYon BACTERIA NONE SEEN Normal NONE SEEN [facility] Comment on above: Performed By: #### U MICRO, ERUR ####[facility] [address] [address]Dr. Miranda Claudio Bacteria identified Cx Nom (U) NOT INDICATED Normal [facility] Comment on above: Performed By: #### U MICRO, ERUR ####[facility] [address] [address]Dr. Miranda Claudio CAST NONE SEEN Normal NONE SEEN [facility] Comment on above: Performed By: #### U MICRO, ERUR ####[facility] [address] [address]Dr. Miranda Claudio Crystals LM Nom (Urine sed) NONE SEEN Normal NONE SEEN [facility] Comment on above: Performed By: #### U MICRO, ERUR ####[facility] [address] [address]Dr. Miranda Claudio Epithelial cells LM Ql (Urine sed) NONE SEEN Normal NONE SEEN /RARE [facility] Comment on above: Performed By: #### U MICRO, ERUR ####[facility] [address] [place], [place] [address]Dr. Miranda Claudio MUCOUS SMALL Abnormal NONE SEEN [facility] Comment on above: Performed By: #### U MICRO, ERUR ####[facility] [address] [place], [place] [address]Ry. Miranda Claudio RBC 0-2 Normal 0-2 [facility] Comment on above: Performed By: #### U MICRO, ERUR ####[facility] [address] [place], [place] [address]Gt. Miranda Claudio WBC NONE SEEN Normal NONE SEEN [facility] Comment on above: Performed By: #### U MICRO, ERUR ####[facility] [address] [place], [place] [address]Az. Miranda Claudio XR CHEST 1 Von 01-27-2022 [...] by: CM ROBLES Date: 2022-01-27 20:30 Normal [facility] XR SHOULDER RT 2V or >on XR SHOULDER RT 2V or > IMAGES REVIEWED: XR SHOULDER RT 2V or > COMPARISON: 12/27/2021. CLINICAL INDICATION: Pain FINDINGS/IMPRESSION: 1. No evidence of acute osseous abnormality of the right shoulder. 2. 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 3. Old right rib fractures. 4. Osteopenia. Electronically authenticated by: SARAH MOMIN Date: 2022-01-27 20:42 Normal [facility] XR SCAPULA RTon 12-27-2021 XR SCAPULA [...] SANTIAGO KIM Date: 2021-12-27 12:55 Normal [facility] COVID-19 Positive/NegativeOr dered By: Stevenson Corbin on 10-13-2021 SARS-CoV-2 (COVID-19) N gene LARY+probe Ql (Resp) Negative Negative [facility] Comment on above: Testing for SARS-CoV -2 by RT-PCR This test was developed and its performance characteristics determined by [employer] and validated at the [facility]. This test has not been FDA [...] By signing my name below, I, Nela Juarezfred DENTON ,Scribe, attest that this documentation has [...] 2:31:58 PM (more content not included)... Normal [facility] PHQ-2 VITALSon 09-25-2021 Fall risk assessment a) No falls within the last year [facility] [address] DO Work Phone: Tobacco use status [facility] b) No M [facility] [address] DO Work Phone: PHQ-2 VITALS Yes -[facility] [place] [facility] DO Work Phone: COVID-19 Positive/NegativeOr dered By: Stevenosn Corbin on 09-18-2021 SARS-CoV-2 (COVID-19) N gene LARY+probe Ql (Resp) Negative Negative [facility] Comment on above: Testing for SARS-CoV -2 by RT-PCR This test was developed and its performance characteristics determined by [employer] and validated at the [facility]. This test has not been FDA [...] JEFE SAEED Date: 2021-08-22 02:25 Normal [facility] HIP LEFT 1 OR 2 VWS WITH PEL VISon 01-26-2021 HIP LEFT 1 OR 2 VWS WITH PELVIS [facility] Department of Radiology [address] [place] [id number] Patient Name: MELANIE ESPINOZA : 1955 Sex: F Age: Race: White Pt. Location: Patient Status: D Ordered Date: 01/26/2021 1:55:00 PM Completed Date: 01/26/2021 02:00 PM Requesting Provider: HEVRE STARKEY Attending Provider: HERVE STARKEY Report Copy To: Signs & Symptoms: S72.002A Fracture of unsp part of neck of left femur, init I10 History: [place] Comments: Evaluate Exam: HIP LEFT 1 OR [...] report. Electronically signed: Marisela Reveles. Transcribed by: [email or web address], User Resident: ORIANA REILLY Electronically Signed by: MARISELA REVELES @ 01/27/2021 12:26 PM I personally read this/these film(s) with this resident Normal [facility] Comment on above: Order Comment: Evalu ate HIP LEFT 1 OR 2 VWS WITH PEL VISon 09-15-2020 HIP LEFT 1 OR 2 VWS WITH PELVIS [facility] Department of Radiology [address] [place] [phone] Patient Name: MELANIE ESPINOZA : 1955 [...] Electronically signed: Jose Armando Kwon. Transcribed by: [email or web address], User Resident: Electronically Signed by: JOSE ARMANDO KWON @ 09/15/2020 08:28 PM Normal [facility] Comment on above: Order Comment: evalu ate RAD - Ultrasound Reporton RAD - Ultrasound Report [id number] #1.00CD:127 Normal [facility] Ambulatory Clinical Summaryo n 08-30-2020 Ambulatory Clinical Summary {[id number]}CD:[id number] Normal [facility] Patient Educationon 08-31-19 Patient Education Urology [...] Follow these instructions at home: ? Take vidm-jmm-dqnqwlu and prescription medicines only as told by [...] 01/27/2008 Document Revised: 04/12/2018 Document Reviewed: 04/12/2018 [employer] Patient Education ? 2019 [employer]. [facility] Urology Office/Clinic Noteon 08-30-2020 Urology Office/Clinic [...] Urnls Dip Stick Auto w/o Microscopy POC 71948 I have reviewed the previous health record information and history for this patient from Dr. Go Follow-up With When Contact Information Donavan Bailey MD, Justin Massey, URO Only if needed [facility] [address], [place] [address]- Additional Instructions: Patient Education Hydronephrosis I, Marion [...] mg= 1 (more content not included)... Normal [facility] Comment on above: Result Comment: Elec tronically Signed By: Donavan Bailey MD, Justin Massey\.br\Date and Time Signed: 08/30/20 13:04 EDT\.br\Electronically Co-Signed By: Marion Gibson MA\.br\Date and Time Co-Signed: 08/30/20 12:36 EDT Reminderson 08-22-2020 Reminders - From: Edilma Godoy To: EU - Clinical; Sent: 08/09/2020 11:42:24 EDT Show up: 08/21/2020 11:42:00 EDT Subject: renal US Reminder/Recall scheduled 08/19/20 at [facility]. patient has f/u scheduled 08/30 for results results scanned in today Normal [facility] Ambulatory Clinical Summaryo n 08-09-2020 Ambulatory Clinical Summary {[id number]}CD:[id number] Normal [facility] Formson 08-09-2020 Forms [id number] #1.00CD:127 Normal [facility] Patient Educationon 08-10-19 Patient Education Urology [...] Follow these instructions at home: ? Take mjec-dhl-qdbkskn and prescription medicines only as told by [...] 01/27/2008 Document Revised: 04/12/2018 Document Reviewed: 04/12/2018 [employer] Patient Education ? 2019 [employer]. Normal [facility] Urology Office/Clinic Noteon 08-09-2020 Urology Office/Clinic Note Chief Complaint New patient here for left sided hydronephrosis HPI Staff New patient Melanie is a 65 y.o. female referred by [facility] for mild to moderate left hydronephrosis. [...] Urnls Dip Stick Auto w/o Microscopy POC 38546 US Renal Follow-up With When Contact Information Donavan Bailey MD, Justin Massey, URO [facility] [address] [place] [address]- Additional Instructions: after renal u/s Patient Education [...] (at bedtime) (more content not included)... Normal [facility] Comment on above: Result Comment: Elec tronically Signed By: Donavan Bailey MD, Justin Massey\.br\Date and Time Signed: 08/09/20 11:18 EDT\.br\Electronically Co-Signed By: Nadiya Freed MA\.br\Date and Time Co-Signed: 08/09/20 11:07 EDT RAD - CT Reporton 07-12-2020 RAD - CT Report [id number]# 1.00CD:127 Normal [facility] Consultation Noteon 07-02-19 Consultation Note [id number] #1.00CD:127 Normal [facility] HIP LEFT 1 OR 2 VWS WITH PEL VISon 06-16-2020 HIP LEFT 1 OR 2 VWS WITH PELVIS [facility] Department of Radiology [address] [place] [phone] Patient Name: MELANIE ESPINOZA : 1955 Sex: F Age: Race: White Pt. Location: 84 Patient Status: D Ordered Date: 06/16/2020 1:25:00 PM Completed Date: 06/16/2020 01:25 PM Requesting Provider: HERVE STARKEY Attending Provider: HERVE STARKEY Report Copy To: Signs & Symptoms: M25.552 Pain in left hip I10 History: [place] Comments: Views (X-RAY, HIP): AP Hip, Frogleg [...] complication Electronically signed: Willow Stapleton. Transcribed by: [email or web address], User Resident: Electronically Signed by: WILLOW STAPLETON @ 06/17/2020 08:01 AM Normal [facility] Comment on above: Order Comment: Views (X-RAY, HIP): AP Hip, Frogleg Lateral Hip HIP LEFT 1 OR 2 VWS WITH PEL VISon 2020 HIP LEFT 1 OR 2 VWS WITH PELVIS [facility] Department of Radiology [address] [place] [phone] Patient Name: MELANIE ESPINOZA : 1955 Sex: F Age: Race: White Pt. Location: 84 Patient Status: O Ordered Date: 2020 1:25:00 PM Completed Date: 2020 01:30 PM Requesting Provider: HERVE STARKEY Attending Provider: HERVE SATRKEY Report Copy To: Signs & Symptoms: M25.552 Pain in left hip I10 History: [place] Comments: Exam: HIP LEFT 1 OR 2 [...] impaction. Electronically signed: Deion Hernandez. Transcribed by: [email or web address], User Resident: Electronically Signed by: DEION HERNANDEZ @ 2020 04:11 PM Normal [facility] HIP LEFT 1 OR 2 VWS WITH PEL VISon 04-14-2020 HIP LEFT 1 OR 2 VWS WITH PELVIS [facility] Department of Radiology [address] [place] [phone] Patient Name: MELANIE ESPINOZA : 1955 Sex: F Age: Race: White Pt. Location: Patient Status: O Ordered Date: 04/14/2020 9:20:00 AM Completed Date: 04/14/2020 09:27 AM Requesting Provider: HERVE STARKEY Attending Provider: HERVE STARKEY Report Copy To: Signs & Symptoms: M25.552 Pain in left hip I10 History: [place] Comments: Evaluate Exam: HIP LEFT 1 OR [...] fracture. Electronically signed: Antonio Bernal. Transcribed by: [email or web address], User Resident: Electronically Signed by: ANTONIO BERNAL @ 04/14/2020 10:04 AM Normal [facility] Comment on above: Order Comment: Evalu ate Coding Summaryon 01-13-2020 Coding Summary CODING DATE: 01/13/2020 [facility] STATUS: Home PAYOR: Medicaid HMO ADMIT [...] Nikhil Zamudio Date Saved: 01/13/2020 06:25 pm [facility] Coding Summary CODING DATE: 01/13/2020 [facility] STATUS: Home PAYOR: Medicaid HMO ADMIT [...] Nikhil Zamudio Date Saved: 01/13/2020 06:24 pm [facility] Coding Summary CODING DATE: 01/13/2020 [facility] STATUS: Home PAYOR: Medicaid HMO ADMIT [...] Nikhil Zamudio Date Saved: 01/13/2020 06:24 pm [facility] ED Clinical Summaryon 2019 ED Clinical Summary [facility] - Emergency Department [address] [place] [address] ED Clinical Summary PERSON INFORMATION Name: MELANIE ESPINOZA Age: 64 Years Sex: FEMALE : 1955 MRN: Acct#: Visit Reason: Hernia; ABD PAIN Arrival: 01/09/2020 15:42:54 Discharge: 01/09/2020 16:20:00 LOS: 000 00:38 Check In: 01/09/2020 15:42:54 Checkout:01/09/2020 16:20:00 Address: [address] [place] [address] [facility] [address] PCP: ESTEBAN GARZA PROVIDER INFORMATION Provider Role [...] Hernia Follow-Up: With: Address: When: Calvin Aguilar [address] [place] [address] [facility] (1) Within 2 to 4 days Comments: [...] hernia; Ventral hernia Patient Understands: Yes - Patient/family/careg iver verbalizes understanding of instructions given Comment: [facility] ED Note - Physicianon 2019 ED Note - Physician Patient: MELANIE ESPINOZA Age: 64 years Sex: FEMALE : [...] Reviewed as documented in chart. Surgical history: Esophagogastroduoden oscopy ([id number]) on 01/17/2018 at 62 Years., Reviewed as [...] Impression and Plan Diagnosis Incarcerated ventral hernia ([id number]-TW K43.6, Discharge, Medical) Ventral hernia ([id number]-ZY K43.9, Discharge, Medical) Plan Condition: Improved, Stable. [...] on: 01/12/2020 15:09 EDT] Wade Hassan MD [facility] ED Note-Nursingon 01-09-2020 ED Note-Nursing Pt presents to the ED with a hernia. Pt states increased pain in that area. [facility] ED Patient Education Noteon 01-09-2020 ED [...] increase pressure on your hernia. ? Take faee-cdj-hupsolp and prescription medicines only as told by [...] 03/18/2013 Document Revised: 05/14/2018 Document Reviewed: 10/21/2017 [employer] Patient Education ? 2019 [employer]. Normal [facility] ED Patient Summaryon 020 ED Patient Summary [facility] - Emergency Department [address] [place] [address] PATIENT DISCHARGE INSTRUCTIONS Patient Information Name: MELANIE ESPINOZA Age: 64 Years Date of : 1955 Reason For Visit: Hernia; ABD PAIN Arrival Time: 01/09/2020 15:42:54 Primary Care Physician: ESTEBAN GARZA Attending Physician: Wade Hassan MD Comment: Visit Diagnosis: Diagnoses This Visit Hernia ([id number]) Incarcerated ventral hernia (K43.6) Ventral hernia (K43.9) Prescription Information: If you have been given a prescription for narcotics, seek immediate medical attention if you have any difficulty breathing or any sudden status changes such as confusion and sleepiness. If you or anyone you know is experiencing suicidal thoughts, mental health, alcohol and/or drug addiction problems; contact the [facility] 05/11 Crisis Hotline -Text 4HRRF ji 910597. If you received any narcotics, sedation, or [...] legal documents With: Address: When: Calvin Aguilar [address] [facility], [place] [address] Business (1) Within 2 to 4 days [...] and treatment you received today in the [facility] Emergency Department were for an urgent problem and are not intended as complete care. It is important for you to follow up with a doctor, nurse practitioner, or physician?s leasing assistant for ongoing care. If your symptoms [...] so we can reach you if necessary. [facility] Emergency Department has provided you with a complete list of medications post discharge. Please inform your seat installer/provider of your visit and for further instruction [...] increase pressure on your hernia. ? Take ciav-hdt-djgdmqc and prescription medicines only as told by [...] 03/18/2013 Document Revised: 05/14/2018 Document Reviewed: 10/21/2017 [employer] Patient Education ? 2019 [employer]. Viruses or Bacteria What?s got you sick? [...] for Disease Control and Prevention December 2013 [facility] Coding Summaryon 09-24-2019 Coding Summary CODING DATE: 09/24/2019 [facility] STATUS: Home PAYOR: Medicaid HMO ADMIT [...] Carine Ferraro Date Saved: 09/24/2019 03:29 pm [facility] .Thyroglobulin by SKYLAR LCon 0 09-23-2019 Thyroglobulin by SKYLAR LC 13.6 ng/mL 1.5-38.5 [facility] Comment on above: Result Comment: According [...] is 0.1 ng/mL Thyroglobulin measured by [employer] [place] Immunometric Assay Performed At: [id number] [place], [place] [id number] Bebo Jeter PhD Ph:[phone] Performed By: #### 2 [id number], [id number], [id number], [id number], [id number], [id number] ####[facility] (DEFAULT)[address] [place] [address] Provider Orderson 09-23-2019 Provider Orders [id number] #1.00OTGTIFF [facility] T3 Free LCon 09-23-2019 Triiodothyronine,Free,S mirna LC 2.0 pg/mL 2.0-4.4 [facility] Comment on above: Result Comment: Perf ormed At: [facility] [id number] Bebo Jeter PhD Ph:[phone] Performed By: #### 2 [id number], [id number], [id number], [id number], [id number], [id number] #### [facility] (DEFAULT) [address] [place] [address] Thyroglobulin Reflex Profile LCon 09-23-2019 Thyroglobulin Antibody LC <1.0 0.0-0.9 [facility] Comment on above: Result Comment: Thyr oglobulin Antibody measured by [employer] Performed At: [facility] [address] [place], [place] [id number] Bebo Jeter PhD Ph:[phone] Performed By: #### 2 [id number], [id number], [id number], [id number], [id number], [id number] ####[facility] (DEFAULT)[address] [place] [address] Thyroid Peroxidase (TPO) Ab LCon 09-23-2019 Thyroid Peroxidase (TPO) Ab LC <9 0-34 [facility] Comment on above: Result Comment: Perf ormed At: [facility] [address] [place], [place] [id number] Bebo Jeter PhD Ph:[phone] Performed By: #### 2 [id number], [id number], [id number], [id number], [id number], [id number] #### [facility] (DEFAULT) [address] [place] [address] Free T4on 09-22-2019 Free T4 [Mass/Vol] 0.90 ng/dL Normal 0.61-1.12 [facility] Comment on above: Result Comment: Spec imens that contain high levels of Biotin may cause false high results Performed By: #### 2 697707, [id number], [id number], [id number], [id number], [id number] #### [facility] (DEFAULT) [address] [place] [address] TSHon 09-22-2019 TSH Qn 2.07 mcIU/mL Normal 0.45-5.33 [facility] Comment on above: Result Comment: Gene ral Population (males and non- females, aged 21-88) 0.45 - 5.33 Females, 1st Trimester 0.05 - 3.70 Females, 2nd Trimester 0.31 - 4.35 Females, 3rd Trimester 0.41 - 5.18 Performed By: #### 2 730559, [id number], [id number], [id number], [id number], [id number] #### [facility] (DEFAULT) [address] [place] [address] Coding Summaryon 06-18-2019 Coding Summary CODING DATE: 06/18/2019 [facility] STATUS: Home PAYOR: Medicaid HMO ADMIT [...] Carine Ferraro Date Saved: 06/18/2019 01:32 pm [facility] US Thyroidon 06-17-2019 US Thyroid EXAM: [...] Huntley MD 06/17/19 4:26 pm Technologist: KRISTINA [facility] Provider Orderson 06-16-2019 Provider Orders [id number] #1.00OTGTIFF [facility] Coding Summaryon 05-29-2019 Coding Summary CODING DATE: 05/29/2019 [facility] STATUS: Home PAYOR: Medicaid HMO ADMIT [...] Deb Law Date Saved: 05/29/2019 12:32 pm [facility] Provider Orderson 05-28-2019 Provider Orders [id number] #[id number] [facility] XR Chest 2 Viewson 0 XR [...] MD 05/27/19 4:03 pm Technologist: Anatoliy SETH [facility] Vital Signs Date Time Vital Sign Value Performing Clinician Facility 01-05-2025 22:58-0400 Body mass index (BMI) [Ratio] 17.25 kg/m2 [employer] [facility] 01-05-2025 22:58-0400 Body temperature 97.81 [degF] [employer] [facility] 01-05-2025 22:58-0400 Body weight 44.18 kg [employer] [facility] 01-05-2025 22:58-0400 Diastolic blood pressure 56 mm[Hg] [employer] [facility] 01-05-2025 22:58-0400 Heart rate 61 /min Alexey Furlong DO Work Phone: [facility] [employer] 01-05-2025 22:58-0400 Respiratory rate 18 /min Alexey Furlong DO Work Phone: [facility] [employer] 01-05-2025 22:58-0400 SaO2% (BldA) [Mass fraction] 94 % Alexey Furlong DO Work Phone: [facility] [employer] 01-05-2025 22:58-0400 Systolic blood pressure 102 mm[Hg] Alexey Furlong DO Work Phone: [facility] [employer] 12-04-2024 22:44-0400 Body mass index (BMI) [Ratio] 17.11 kg/m2 Alexey Furlong DO Work Phone: [facility] [employer] 12-04-2024 22:44-0400 Body temperature 97.9 [degF] Alexey Furlong DO Work Phone: [facility] [employer] 12-04-2024 22:44-0400 Body weight 43.82 kg Alexey Furlong DO Work Phone: [facility] [employer] 12-04-2024 22:44-0400 Diastolic blood pressure 64 mm[Hg] Alexey Furlong DO Work Phone: [facility] [employer] 12-04-2024 22:44-0400 Heart rate 62 /min Alexey Furlong DO Work Phone: [facility] [employer] 12-04-2024 22:44-0400 Respiratory rate 18 /min Alexey Furlong DO Work Phone: [facility] [employer] 12-04-2024 22:44-0400 SaO2% (BldA) [Mass fraction] 94 % Alexey Furlong DO Work Phone: [facility] [employer] [facility] 12-04-2024 22:44-0400 Systolic blood pressure 104 mm[Hg] Alexey Furlong DO Work Phone: [facility] 11-04-2024 11:35-0400 Body height 160 cm Dionicio Trevizo MD Work Phone: [facility] 11-04-2024 11:35-0400 Body mass index (BMI) [Ratio] 17.71 kg/m2 Dionicio Trevizo MD Work Phone: [facility] 11-04-2024 11:35-0400 Body weight 45.36 kg Dionicio Trevizo MD Work Phone: [facility] 11-04-2024 11:35-0400 Heart rate 62 /min Dionicio Trevizo MD Work Phone: [facility] 11-04-2024 11:35-0400 Respiratory rate 16 /min Dionicio Trevizo MD Work Phone: [facility] 11-04-2024 11:35-0400 SaO2% (BldA) [Mass fraction] 97 % Dionicio Trevizo MD Work Phone: [facility] 10-30-2024 11:06-0400 Body mass index (BMI) [Ratio] 17.75 kg/m2 Alexey Furlong DO Work Phone: [facility] 10-30-2024 11:06-0400 Body temperature 98.1 [degF] Alexey Furlong DO Work Phone: [facility] 10-30-2024 11:06-0400 Body weight 45.45 kg Alexey Furlong DO Work Phone: [facility] 10-30-2024 11:06-0400 Diastolic blood pressure 64 mm[Hg] Alexey Furlong DO Work Phone: [facility] 10-30-2024 11:06-0400 Heart rate 59 /min Alexey Furlong DO Work Phone: [facility] 10-30-2024 11:06-0400 Respiratory rate 20 /min Alexey Furlong DO Work Phone: [facility] 10-30-2024 11:06-0400 SaO2% (BldA) [Mass fraction] 97 % Alexey Furlong DO Work Phone: [facility] 10-30-2024 11:06-0400 Systolic blood pressure 110 mm[Hg] Alexey Furlong DO Work Phone: [facility] 10-09-2024 13:22-0400 Body mass index (BMI) [Ratio] 17.86 kg/m2 Alexey Furlong DO Work Phone: [facility] 10-09-2024 13:22-0400 Body temperature 97.81 [degF] Alexey Furlong DO Work Phone: [facility] 10-09-2024 13:22-0400 Body weight 45.72 kg Alexey Furlong DO Work Phone: [facility] 10-09-2024 13:22-0400 Diastolic blood pressure 60 mm[Hg] Alexey Furlong DO Work Phone: [facility] 10-09-2024 13:22-0400 Heart rate 54 /min Alexey Furlong DO Work Phone: [facility] 10-09-2024 13:22-0400 Respiratory rate 20 /min Alexey Furlong DO Work Phone: [facility] 10-09-2024 13:22-0400 SaO2% (BldA) [Mass fraction] 97 % Alexey Furlong DO Work Phone: [facility] 10-09-2024 13:22-0400 Systolic blood pressure 107 mm[Hg] Alexey Furlong DO Work Phone: [facility] 10-09-2024 09:31-0400 Body mass index (BMI) [Ratio] 17.86 kg/m2 Alexey Furlong DO Work Phone: [facility] 10-09-2024 09:31-0400 Body temperature 97.81 [degF] Alexey Furlong DO Work Phone: [facility] [employer] [facility] 10-09-2024 09:31-0400 Body weight 45.72 kg Alexey Furlong DO Work Phone: [facility] [employer] [facility] 10-09-2024 09:31-0400 Diastolic blood pressure 60 mm[Hg] Alexey Furlong DO Work Phone: [facility] [employer] [facility] 10-09-2024 09:31-0400 Heart rate 54 /min Alexey Furlong DO Work Phone: [facility] [employer] [facility] 10-09-2024 09:31-0400 Respiratory rate 20 /min Alexey Furlong DO Work Phone: [facility] [employer] [facility] 10-09-2024 09:31-0400 SaO2% (BldA) [Mass fraction] 97 % Alexey Furlong DO Work Phone: [facility] [employer] [facility] 10-09-2024 09:31-0400 Systolic blood pressure 107 mm[Hg] Alexey Furlong DO Work Phone: [facility] 09-11-2024 20:01-0400 Body mass index (BMI) [Ratio] 17.82 kg/m2 Alexey Furlong DO Work Phone: [facility] [employer] [facility] 09-11-2024 20:01-0400 Body temperature 98.1 [degF] Alexey Furlong DO Work Phone: [facility] [employer] [facility] 09-11-2024 20:01-0400 Body weight 45.63 kg Alexey Furlong DO Work Phone: [facility] 09-11-2024 20:01-0400 Diastolic blood pressure 68 mm[Hg] Alexey Furlong DO Work Phone: [facility] [employer] [facility] 09-11-2024 20:01-0400 Heart rate 72 /min Alexey Furlong DO Work Phone: [facility] 09-11-2024 20:01-0400 Respiratory rate 17 /min Alexey Furlong DO Work Phone: [facility] 09-11-2024 20:01-0400 SaO2% (BldA) [Mass fraction] 97 % Alexey Furlong DO Work Phone: [facility] [employer] [facility] 09-11-2024 20:01-0400 Systolic blood pressure 130 mm[Hg] Alexey Furlong DO Work Phone: [facility] 08-05-2024 16:40-0400 Body mass index (BMI) [Ratio] 17.93 kg/m2 Alexey Furlong DO Work Phone: [facility] 08-05-2024 16:40-0400 Body temperature 97.9 [degF] Alexey Furlong DO Work Phone: [facility] 08-05-2024 16:40-0400 Body weight 45.9 kg Alexey Furlong DO Work Phone: [facility] [employer] [facility] 08-05-2024 16:40-0400 Diastolic blood pressure 66 mm[Hg] Alexey Furlong DO Work Phone: [facility] 08-05-2024 16:40-0400 Heart rate 90 /min Alexey Furlong DO Work Phone: [facility] 08-05-2024 16:40-0400 Respiratory rate 18 /min Alexey Furlong DO Work Phone: [facility] 08-05-2024 16:40-0400 SaO2% (BldA) [Mass fraction] 96 % Alexey Furlong DO Work Phone: [facility] 08-05-2024 16:40-0400 Systolic blood pressure 118 mm[Hg] Alexey Furlong DO Work Phone: [facility] 07-02-2024 18:11-0400 Body mass index (BMI) [Ratio] 18.32 kg/m2 Alexey Furlong DO Work Phone: [facility] [employer] 07-02-2024 18:11-0400 Body temperature 97.2 [degF] Alexey Furlong DO Work Phone: [facility] [employer] 07-02-2024 18:11-0400 Body weight 46.9 kg Alexey Furlong DO Work Phone: [facility] [employer] 07-02-2024 18:11-0400 Diastolic blood pressure 87 mm[Hg] Alexey Furlong DO Work Phone: [facility] [employer] 07-02-2024 18:11-0400 Heart rate 68 /min Alexey Furlong DO Work Phone: [facility] [employer] [facility] 07-02-2024 18:11-0400 Respiratory rate 18 /min Alexey Furlong DO Work Phone: [facility] [employer] 07-02-2024 18:11-0400 SaO2% (BldA) [Mass fraction] 96 % Alexey Furlong DO Work Phone: [facility] [employer] [facility] 07-02-2024 18:11-0400 Systolic blood pressure 140 mm[Hg] Alexey Furlong DO Work Phone: [facility] [employer] [facility] 05-27-2024 18:54-0500 Body temperature 96.4 [degF] Alexey Furlong DO Work Phone: [facility] [employer] [facility] 05-27-2024 18:54-0500 Diastolic blood pressure 86 mm[Hg] Alexey Furlong DO Work Phone: [facility] [employer] 05-27-2024 18:54-0500 Heart rate 71 /min Alexey Furlong DO Work Phone: [facility] [employer] [facility] 05-27-2024 18:54-0500 Systolic blood pressure 127 mm[Hg] Alexey Furlong DO Work Phone: [facility] 05-06-2024 11:25-0500 Body height 157.5 cm Dionicio Trevizo MD Work Phone: [facility] 05-06-2024 11:25-0500 Heart rate 69 /min Dionicio Trevizo MD Work Phone: [facility] 05-06-2024 11:25-0500 Respiratory rate 16 /min Dionicio Trevizo MD Work Phone: [facility] 04-17-2024 15:57-0500 Diastolic blood pressure 104 mm[Hg] Alexey Furlong DO Work Phone: [facility] [employer] [facility] 04-17-2024 15:57-0500 Heart rate 75 /min Alexey Furlong DO Work Phone: [facility] [employer] [facility] 04-17-2024 15:57-0500 Systolic blood pressure 143 mm[Hg] Alexey Furlong DO Work Phone: [facility] 04-01-2024 18:28-0500 Body mass index (BMI) [Ratio] 16.37 kg/m2 Alexey Furlong DO Work Phone: [facility] 04-01-2024 18:28-0500 Body temperature 98.2 [degF] Alexey Furlong DO Work Phone: [facility] [employer] [facility] 04-01-2024 18:28-0500 Body weight 41.91 kg Alexey Furlong DO Work Phone: [facility] [employer] [facility] 04-01-2024 18:28-0500 Diastolic blood pressure 85 mm[Hg] Alexey Furlong DO Work Phone: [facility] [employer] [facility] 04-01-2024 18:28-0500 Heart rate 82 /min Alexey Furlong DO Work Phone: [facility] [employer] [facility] 04-01-2024 18:28-0500 Respiratory rate 18 /min Alexey Furlong DO Work Phone: [facility] 04-01-2024 18:28-0500 SaO2% (BldA) [Mass fraction] 95 % Alexey Furlong DO Work Phone: [facility] 04-01-2024 18:28-0500 Systolic blood pressure 159 mm[Hg] Alexey Furlong DO Work Phone: [facility] 02-13-2024 13:49-0400 Body height 160.02 cm DO Alexey Furlong Work Phone: [facility] 02-13-2024 11:54-0400 Body temperature 99.1 [degF] DO Alexey Furlong Work Phone: [facility] 02-13-2024 11:54-0400 Diastolic blood pressure 63 mm[Hg] DO Alexey Furlong Work Phone: [facility] 02-13-2024 11:54-0400 Heart rate 96 /min DO Alexey Furlong Work Phone: [facility] 02-13-2024 11:54-0400 Respiratory rate 16 /min DO Alexey Furlong Work Phone: [facility] 02-13-2024 11:54-0400 SaO2% (BldA) [Mass fraction] 95 % DO Alexey Furlong Work Phone: [facility] 02-13-2024 11:54-0400 Systolic blood pressure 169 mm[Hg] DO Alexey Furlong Work Phone: [facility] 02-12-2024 18:25-0400 Inhaled oxygen flow rate 8 L/min DO Alexey Furlong Work Phone: [facility] 02-12-2024 12:30-0400 Body weight 41.7 kg DO Alexey Furlong Work Phone: [facility] 11-12-2023 10:53-0400 Body mass index (BMI) [Ratio] 16.83 kg/m2 Tai Hinojosa MD Work Phone: [facility] 11-12-2023 10:53-0400 Body weight 43.09 kg Tai Hinojosa MD Work Phone: [facility] 11-12-2023 10:53-0400 Diastolic blood pressure 80 mm[Hg] Tai Hinojosa MD Work Phone: [facility] 11-12-2023 10:53-0400 Heart rate 72 /min Tai Hinojosa MD Work Phone: [facility] 11-12-2023 10:53-0400 SaO2% (BldA) [Mass fraction] 93 % Tai Hinojosa MD Work Phone: [facility] 11-12-2023 10:53-0400 Systolic blood pressure 136 mm[Hg] Tai Hinojosa MD Work Phone: [facility] 01-29-2022 12:15-0400 Body height 161.29 cm Stevenson Corbin Other [employer] Other 01-02-2022 08:47-0400 Body weight 49.9 kg Tai Hinojosa MD Work Phone: [facility] 01-02-2022 08:47-0400 Diastolic blood pressure 77 mm[Hg] aTi Hinojosa MD Work Phone: [facility] 01-02-2022 08:47-0400 Heart rate 68 /min Tai Hinojosa MD Work Phone: [facility] 01-02-2022 08:47-0400 SaO2% (BldA) [Mass fraction] 96 % Tai Hinojosa MD Work Phone: [facility] 01-02-2022 08:47-0400 Systolic blood pressure 128 mm[Hg] Tai Hinojosa MD Work Phone: [facility] 12-06-2021 15:00-0400 Body height 161.29 cm Sena Eugene Other [employer] Other 12-06-2021 15:00-0400 Body temperature 98 [degF] Sena Jabier Other [employer] Other 12-06-2021 15:00-0400 Diastolic blood pressure 85 mm[Hg] Sena Jabier Other [employer] Other 12-06-2021 15:00-0400 Respiratory rate 18 /min Sena Jabier Other [employer] Other 12-06-2021 15:00-0400 SaO2% (BldA) [Mass fraction] 96 % Sena Jabier Other [employer] Other 12-06-2021 15:00-0400 Systolic blood pressure 157 mm[Hg] Sena Jabier Other [employer] Other 10-18-2021 12:35-0400 Diastolic blood pressure 58 mm[Hg] MD Stevenson Corbin Work Phone: [facility] 10-18-2021 12:35-0400 Heart rate 64 /min MD Stevenson Corbin Work Phone: [facility] 10-18-2021 12:35-0400 Respiratory rate 16 /min MD Stevenson Corbin Work Phone: [facility] 10-18-2021 12:35-0400 SaO2% (BldA) [Mass fraction] 95 % MD Stevenson Corbin Work Phone: [facility] 10-18-2021 12:35-0400 Systolic blood pressure 146 mm[Hg] MD Stevenson Corbin Work Phone: [facility] 10-18-2021 12:19-0400 Body height 160.02 cm MD Stevenson Corbin Work Phone: [facility] 10-18-2021 12:19-0400 Body mass index (BMI) [Ratio] 18.1 kg/m2 MD Stevenson Corbin Work Phone: [facility] 10-18-2021 12:19-0400 Body weight 46.6 kg MD Stevenson Corbin Work Phone: [facility] 10-18-2021 11:35-0400 Inhaled oxygen flow rate 2 L/min MD Stevenson Corbin Work Phone: [facility] 10-18-2021 10:53-0400 Body temperature 97.1 [degF] MD Stevenson Corbin Work Phone: [facility] 09-25-2021 14:35-0400 Diastolic blood pressure 78 mm[Hg] Alexey G Furlong Work Phone: [facility] [employer] DO Work Phone: 09-25-2021 14:35-0400 Systolic blood pressure 162 mm[Hg] Alexey G Furlong Work Phone: [facility] [employer] 250 DO Work Phone: 09-25-2021 14:32-0400 Body height 160.02 cm Alexey G Furlong Work Phone: [facility] [employer] 250 DO Work Phone: 09-25-2021 14:32-0400 Body mass index (BMI) [Ratio] 18.42 kg/m2 Alexey G Furlong Work Phone: [facility] [employer] [employer] DO Work Phone: 09-25-2021 14:32-0400 Body surface area Derived from formula 1.46 m2 Alexey G Furlong Work Phone: [facility] [employer] DO Work Phone: 09-25-2021 14:32-0400 Body weight 47.17 kg Alexey G Furlong Work Phone: [facility] 250 DO Work Phone: 09-25-2021 14:32-0400 Diastolic blood pressure 90 mm[Hg] Alexey Pedersonlong Work Phone: [facility] 250 DO Work Phone: 09-25-2021 14:32-0400 Heart rate 83 /min Alexey Pedersonlong Work Phone: [facility] 250 DO Work Phone: 09-25-2021 14:32-0400 Systolic blood pressure 168 mm[Hg] Alexey Pedersonlong Work Phone: [facility] [employer] [employer] DO Work Phone: 09-13-2021 12:08-0400 Body height 160.02 cm MD Stevenson Corbin Work Phone: [facility] 09-13-2021 12:08-0400 Body mass index (BMI) [Ratio] 18.6 kg/m2 MD Stevenson Corbin Work Phone: [facility] 09-13-2021 12:08-0400 Body weight 47.8 kg MD Stevenson Corbin Work Phone: [facility] 05-30-2021 09:45-0500 Body height 161.29 cm Stevenson Corbin Other [facility] [email or web address] Other 05-30-2021 09:45-0500 Body mass index (BMI) [Ratio] 16.39 kg/m2 Stevenson Olexa Other [employer] Other 05-30-2021 09:45-0500 Body weight 42.64 kg Stevenson Corbin Other [employer] Other 03-22-2021 14:00-0500 Body height 161.29 cm Radha Bosch Other [employer] Other 03-22-2021 14:00-0500 Body mass index (BMI) [Ratio] 16.56 kg/m2 Radha Bosch Other [employer] Other 03-22-2021 14:00-0500 Body temperature 98.2 [degF] Radha Bosch Other [employer] Other 03-22-2021 14:00-0500 Body weight 43.09 kg Radha Bosch Other [employer] Other 03-22-2021 14:00-0500 Diastolic blood pressure 60 mm[Hg] Radha Bosch Other [employer] Other 03-22-2021 14:00-0500 Respiratory rate 18 /min Radha Boshc Other [employer] Other 03-22-2021 14:00-0500 SaO2% (BldA) [Mass fraction] 96 % Radha Bosch Other [employer] Other 03-22-2021 14:00-0500 Systolic blood pressure 140 mm[Hg] Radha Bosch Other [employer] Other Encounters Encounter Date Encounter Type Care Provider Facility Start: 01-22-2025 End: 01-22-2025 ambulatory [facility] Start: 01-05-2025 End: 01-10-2025 Continuing Care Alexey Polo DO Work Phone: [facility] Comment on above: Right knee pain, uns pecified chronicity (Primary Dx); Hypo-osmolality and hyponatremia; SIADH (syndrome of inappropriate ADH production); Primary hypertension; Movement disorder; Multifactorial gait disorder; Hyperlipidemia, unspecified hyperlipidemia type Start: 12-24-2024 End: 12-24-2024 ambulatory Alexey Polo DO Work Phone: [facility] Work Phone: Start: 12-24-2024 End: 12-24-2024 Patient encounter procedure Nickolas Hawthorne DO -[facility] [place] Work Phone: Start: 12-04-2024 End: 12-07-2024 Continuing Care Alexey Polo DO Work Phone: [facility] Comment on above: Primary hypertension (Primary Dx); SIADH (syndrome of inappropriate ADH production); Acquired hypothyroidism; Hypoglycemia; Tardive dyskinesia; Iron deficiency anemia, unspecified iron deficiency anemia type; Multifactorial gait disorder Start: 11-04-2024 End: 11-04-2024 [employer] flowsheet Dionicio Trevizo MD Work Phone: [facility] Start: 11-04-2024 End: 11-04-2024 [employer] Dionicio Trevizo MD Work Phone: [facility] Start: 11-04-2024 End: 11-04-2024 Office outpatient visit 25 minutes Dionicio Trevizo MD Work Phone: [facility] Comment on above: Acquired hypothyroid ism (Primary Dx); Movement disorder Start: 11-04-2024 End: 11-04-2024 ambulatory DIONICIO TREVIZO Not Available Start: 10-30-2024 End: 11-02-2024 Continuing Care Alexey Polo DO Work Phone: [facility] Comment on above: Closed fracture of t uft of distal phalanx of left ring finger (Primary Dx); Closed fracture of tuft of distal phalanx of left middle finger; Movement disorder; Tardive dyskinesia Start: 10-09-2024 End: 11-01-2024 Continuing Care Alexey G Furlong DO Work Phone: [facility] Comment on above: Movement disorder (P rimary Dx); Anxiety; Tardive dyskinesia; SIADH (syndrome of inappropriate ADH production) Primary hypertension (Primary Dx); Anxiety; Tardive dyskinesia; Movement disorder Start: 09-11-2024 End: 09-13-2024 Continuing Care Alexeyconcepción Pedersonlong DO Work Phone: [facility] Comment on above: Tardive dyskinesia ( Primary Dx); Movement disorder; Primary hypertension Start: 08-10-2024 End: 08-10-2024 ambulatory Alexey Furlong DO Work Phone: [facility] Work Phone: Start: 08-10-2024 End: 08-10-2024 Patient encounter procedure [facility]ey Furlong DO [facility] Work Phone: Start: 08-10-2024 End: 08-10-2024 Patient encounter procedure Alexey Furlong DO Work Phone: [facility] Start: 08-10-2024 End: 08-10-2024 ambulatory Alexey Furlong DO Work Phone: [facility] Work Phone: Start: 08-07-2024 End: 08-07-2024 ambulatory [facility] Start: 08-05-2024 End: 08-05-2024 ambulatory Alexey G Furlong DO Work Phone: [facility] Comment on above: Tardive dyskinesia ( Primary Dx); Primary hypertension; S/P reverse total shoulder arthroplasty, right Start: 07-21-2024 End: 07-21-2024 ambulatory Alexey Furlong DO Work Phone: [facility] Work Phone: Start: 07-21-2024 End: 07-21-2024 Patient encounter procedure Alexey Furlong DO Work Phone: [facility] Work Phone: Start: 07-02-2024 End: 07-02-2024 ambulatory Alexey Furlong DO Work Phone: [facility] Work Phone: Comment on above: Primary hypertension (Primary Dx); Tardive dyskinesia; Primary osteoarthritis of right knee; Iron deficiency anemia, unspecified iron deficiency anemia type; Hyperlipidemia, unspecified hyperlipidemia type; Hypokalemia; SIADH (syndrome of inappropriate ADH production) ([facility]) Start: 07-02-2024 End: 07-02-2024 Patient encounter procedure Alexey Furlong DO Work Phone: [facility] Work Phone: Start: 07-02-2024 End: 07-02-2024 Patient encounter procedure Alexey Furlong DO Work Phone: [facility] Start: 07-02-2024 End: 07-02-2024 ambulatory Alexey Furlong DO Work Phone: [facility] Work Phone: Start: 06-25-2024 End: 06-25-2024 ambulatory TELLY [facility] Start: 06-01-2024 End: 06-01-2024 ambulatory Alexey Furlong DO Work Phone: [facility] Work Phone: Start: 06-01-2024 End: 06-01-2024 Patient encounter procedure Alexey Furlong DO Work Phone: [facility] Work Phone: Start: 05-27-2024 End: 06-02-2024 ambulatory Alexey G Furlong DO Work Phone: [facility] Medicine - Family Medicine Comment on above: SIADH (syndrome of i nappropriate ADH production) ([facility]) (Primary Dx); Hyperlipidemia, unspecified hyperlipidemia type; Iron deficiency anemia, unspecified iron deficiency anemia type; Hypo-osmolality and hyponatremia; Hypocalcemia; Hypokalemia Start: 05-06-2024 End: 05-06-2024 Bamboo flowsheet Dionicio Trevizo MD Work Phone: [facility] Start: 05-06-2024 End: 05-06-2024 Bamboo flowsheet Dionicio Trevizo MD Work Phone: [facility] Start: 05-06-2024 End: 05-06-2024 Office outpatient visit 25 minutes Dionicio Trevizo MD Work Phone: [facility] Comment on above: Acquired hypothyroid ism ([facility]) (Primary Dx); Movement disorder Start: 05-06-2024 End: 05-06-2024 ambulatory DIONICIO TREVIZO Not Available Start: 04-17-2024 End: 04-17-2024 Continuing Care Alexeyconcepción Pedersonsamanthatresa DO Work Phone: [facility] Comment on above: Primary hypertension (Primary Dx); SIADH (syndrome of inappropriate ADH production) ([facility]); Sleep disorder breathing Start: 04-01-2024 End: 04-06-2024 Continuing Care Alexey Garcia Bgsamanthatresa DO Work Phone: [facility] Comment on above: Aftercare following right shoulder joint replacement surgery (Primary Dx); Witnessed apneic spells; Movement disorder Start: 03-31-2024 End: 03-31-2024 Patient encounter procedure Alexey Pedersonleeann DO Work Phone: [facility] Work Phone: Start: 03-31-2024 End: 03-31-2024 ambulatory Nickolas Hawthorne Facility:[facility] Start: 02-24-2024 End: 02-24-2024 ambulatory Alexey Furlong DO Work Phone: [facility] Work Phone: Start: 02-24-2024 End: 02-24-2024 Patient encounter procedure Alexey Furlong DO Work Phone: [facility] [place] [facility] Work Phone: Start: 02-24-2024 End: 02-24-2024 Patient encounter procedure Alexey Furlong DO Work Phone: [facility] [place] [facility] Start: 02-24-2024 End: 02-24-2024 ambulatory Alexey Furlong DO Work Phone: [facility] Work Phone: Start: 02-12-2024 Non-patient / Non-visit DO Den nis Furlong Work Phone: [facility] [place] [facility] Work Phone: Start: 02-12-2024 End: 02-13-2024 Admission to same day surgery center DO Alexey Furlong Work Phone: [facility] [place] Start: 02-12-2024 End: 02-13-2024 ambulatory DO Alexey Furlong Work Phone: [facility] Work Phone: Start: 01-29-2024 End: 01-29-2024 Patient encounter procedure DO Alexey Furlong Work Phone: [facility]-CT Scan [facility] [place] Work Phone: Start: 01-29-2024 End: 01-29-2024 ambulatory DO Alexey Furlong Work Phone: [facility] Work Phone: Start: 01-29-2024 End: 01-29-2024 Patient encounter procedure DO Alexey Furlong Work Phone: [facility] Work Phone: Start: 01-29-2024 End: 01-29-2024 ambulatory DO Alexey Pedersonlong Work Phone: [facility] Work Phone: Start: 01-29-2024 Encounter for preprocedural laboratory examination Nickolas Hawthorne [facility] Start: 01-23-2024 End: 01-23-2024 ambulatory DO Alexey Pedersonlong Work Phone: [facility] Work Phone: Start: 01-23-2024 End: 01-23-2024 Patient encounter procedure DO Alexey Pedersonlong Work Phone: [facility] Work Phone: Start: 12-25-2023 End: 08-12-2024 Telephone encounter Tai Hinojosa MD Work Phone: Neurology Comment on above: Medication Problem Start: 12-24-2023 Non-patient / Non-visit DO Jose Pedersonlong Work Phone: [facility] Work Phone: Start: 11-12-2023 End: 11-12-2023 ambulatory ESTEBAN GARZA Facility:[facility] Start: 11-12-2023 End: 11-12-2023 Patient encounter procedure Tai Hinojosa MD Work Phone: Neurology Comment on above: Lingual facial bucca l dyskinesia (Primary Dx); Dyskinesia, tardive Start: 08-26-2023 End: 08-27-[address] [facility] Start: 08-26-2023 End: 08-26-[address] [facility] Start: 08-26-2023 Encounter for preprocedural cardiovascular examination [facility] Start: 06-28-2023 ambulatory No Stearns RN [facility] Comment on above: ACM MOHINDER RN ( Medication Adherence review per request of payer) Start: 06-18-2022 Office outpatient vi sit 15 minutes Stevenson Corbin [facility] [place] [facility] Start: 06-18-2022 End: 06-18-2022 ambulatory DO Alexey Polo Work Phone: [facility] Work Phone: Start: 06-18-2022 End: 06-18-2022 Patient encounter procedure DO Alexey Pedersonleeann Work Phone: [facility] [place] [facility] Start: 06-04-2022 End: 06-04-2022 ambulatory LENA HAMEED . Facility:[facility] Start: 04-19-2022 End: 04-19-[address] EVA POOLE . Facility:[facility] Start: 03-23-2022 End: 03-23-[address] ERICK BERG . Facility:[facility] Start: 02-23-2022 End: 02-24-[address] ALEXEY POLO Facility:[facility] Start: 01-29-2022 End: 01-29-2022 ambulatory Stevenson Corbin Other [facility] Other Start: 01-29-2022 Office outpatient vi sit 15 minutes Stevenson Corbin [facility] [place] [facility] Start: 01-27-2022 End: 01-28-[address] EMMA GO Facility:[facility] Start: 01-02-2022 End: 01-02-2022 Patient encounter procedure Tai Hinojosa MD Work Phone: Neurology Comment on above: Lingual facial bucca l dyskinesia (Primary Dx); Dyskinesia, tardive; Dyskinesia, orofacial; Excessive physiologic tremor Start: 12-27-2021 End: 12-27-[address] ALEXEY POLO Facility:[facility] Start: 12-06-2021 End: 12-06-2021 ambulatory Sena Jabier Other [facility] Other Start: 12-06-2021 Office outpatient vi sit 15 minutes Sena Jabier [facility] Nephrology Start: 12-04-2021 End: 12-04-2021 ambulatory Stevenson Olexa Other [facility] Other Start: 12-04-2021 Postop follow up vis it related to original px Stevenson Olexa [facility] [place] [facility] Start: 12-04-2021 End: 12-04-2021 Patient encounter procedure MD Stevenson Corbin Work Phone: [facility] [place] [facility] Start: 11-01-2021 End: 11-01-2021 ambulatory Stevenson Olexa Other [facility] Other Start: 11-01-2021 Telephone encounter Stevenson Corbin [facility] Start: 10-26-2021 End: 10-26-2021 ambulatory Stevenson Olexa Other [facility] Other Start: 10-26-2021 Postop follow up vis it related to original px Stevenson Olexa [facility] [place] [facility] Start: 10-26-2021 End: 10-26-2021 Patient encounter procedure MD Stevenson Corbin Work Phone: [facility] [place] [facility] Start: 10-18-2021 End: 10-18-2021 Admission to same day surgery center MD Stevenson Corbin Work Phone: [facility] [place] Start: 10-17-2021 End: 10-17-2021 ambulatory Stevenson Olexa Other [facility] Other Start: 10-17-2021 Telephone encounter Stevenson Corbin [facility] [place] [facility] Start: 10-13-2021 End: 10-13-2021 Patient encounter procedure MD Stevenson Corbin Work Phone: [facility] Start: 10-09-2021 End: 10-09-2021 Patient encounter procedure MD Stevenson Corbin Work Phone: [facility] Start: 09-25-2021 Office consultation new/estab patient 60 min Alexey Polo Work Phone: [facility] 250 DO Work Phone: Start: 09-20-2021 End: 09-20-2021 Departed Referred MD Stevenson Corbin Work Phone: [facility] [place] Start: 09-18-2021 End: 09-18-2021 ambulatory Stevenson Corbin Other [facility] Other Start: 09-18-2021 Telephone encounter Stevenson Corbin [facility] [place] [facility] Start: 09-18-2021 End: 09-18-2021 Patient encounter procedure MD Stevenson Corbin Work Phone: [facility] Start: 08-22-2021 End: 08-22-[address] ALEXEY POLO Facility:[facility] Start: 07-12-2021 Telephone encounter Tai johnson MD Work Phone: Neurology Comment on above: Insurance Authorizat ion Start: 06-29-2021 End: 06-30-[address] ALEXEY POLO Facility:[facility] Start: 05-30-2021 End: 05-30-2021 ambulatory Stevenson Corbin Other [employer] Other Start: 05-30-2021 Office outpatient ne w 30 minutes Stevenson Corbin [facility] [place] [facility] Start: 03-22-2021 End: 03-22-2021 ambulatory Radha Bosch Other [facility] [employer] Other Start: 03-22-2021 Office outpatient vi sit 15 minutes Radha Bosch [facility] Start: 06-16-2020 End: 06-17-2020 ambulatory HERVE STARKEY Facility:[facility] Patient encounter status Alexey Polo Work Phone: [facility] 250 DO Work Phone: Procedures Date Procedure Procedure Detail Performing Clinician Start: 08-10-2024 Plain X-ray of right shoulder Alexey Furlong DO Work Phone: Start: 07-02-2024 X-ray of left knee, two views Laexey Furlong DO Work Phone: Start: 07-02-2024 X-ray [...] on above: Result Comment: PERF ORMED BY: [facility] [address] [place] [address] PATHOLOGIST SENIOR INFORMATION SECURITY ANALYST TAYA CRESPO M.D. Start: 01-29-2024 CT of right shoulder DO Alexey Furlong Work Phone: Start: 01-29-2024 Methicillin resistan t Staphylococcus aureus culture DO Alexey Nova Ratiolong Work Phone: Start: 01-23-2024 Plain X-ray of right shoulder DO Laexey Furlong Work Phone: Start: 06-18-2022 Plain X-ray of right shoulder DO Alexey Bradfordng Work Phone: Start: 12-04-2021 Plain X-ray of right shoulder MD Stevenson Corbin Work Phone: Start: 10-26-2021 Plain X-ray of right shoulder MD Stevenson Corbin Work Phone: Start: 10-18-2021 Plain X-ray of right shoulder MD Stevenson Corbin Work Phone: Start: 10-18-2021 Prosthetic total arthroplasty of right shoulder MD Stevenson Corbin Work Phone: Start: 11-15-2020 Colonoscopy Aleexy bradshaw DO Work Phone: Start: 08-08-2020 Adult depression scr eening assessment Tai Hinojosa MD Work Phone: Operation on rectum Alexey Polo Work Phone: Total colonoscopy Alexey choudhury Work Phone: Plan of Treatment Date Care Activity Detail Author Start: 12-28-2030 DTaP,Tdap and Td Vaccines (3 - Td or Tdap) DTaP,Tdap and Td Vaccines (3 - Td or Tdap) [facility] Start: 12-28-2030 Urine microalbumin profile DTaP,Tdap,Td Vaccine (3 - Td or Tdap) [facility] Start: 11-15-2030 Screening for malignant neoplasm of colon [facility] [employer] Start: 2030 RSV Vaccine (1 - 1-dose 75+ series) RSV Vaccine (1 - 1-dose 75+ series) [facility] Start: 12-04-2025 Adult BMI Screening Adult BMI Screening [facility] Start: 10-30-2025 Adult BMI Screening Adult BMI Screening [facility] Start: 10-09-2025 Adult BMI Screening Adult BMI Screening [facility] Start: 09-11-2025 Adult BMI Screening Adult BMI Screening [facility] Start: 08-05-2025 Adult BMI Screening Adult BMI Screening [facility] Start: 07-02-2025 Adult BMI Screening Adult BMI Screening [facility] Start: 05-19-2025 Diabetes Screening Diabetes Screening [facility] Start: 05-05-2025 End: 05-05-2025 Patient encounter procedure 05/05/2025 11:30 AM EST Office Visit [facility] [address] [place] [phone] Dionicio Trevizo MD [address] [place] [address] [facility] Start: 04-01-2025 Adult BMI Screening Adult BMI Screening [facility] Start: 03-10-2025 Adult BMI Screening Adult BMI Screening [facility] Start: 12-14-2024 COVID-19 Vaccine ( season) COVID-19 Vaccine ( season) [facility] Start: 12-14-2024 Influenza vaccination [facility] Start: 11-11-2024 End: 11-11-2024 Patient encounter procedure 11/11/2024 2:15 PM EDT Office Visit Neurology [address] [place], [place] [id number] Tai Hinojosa MD [facility] [place], [place] [id number] Follow-up Neurology Comment on above: Follow-up Start: 11-04-2024 End: 11-04-2025 Thyrotropin [Units/volume] in Serum or Plasma TSH Lab Routine Acquired hypothyroidism Expected: 11/04/2024 (Approximate), Expires: 11/04/2025 [facility] Comment on above: Expected: 11/04/2024 (Approximate), Expi res: 11/04/2025 Start: 11-04-2024 End: 11-04-2025 Thyroxine (T4) free [Mass/volume] in Serum or Plasma T4, free Lab Routine Acquired hypothyroidism Expected: 11/04/2024 (Approximate), Expires: 11/04/2025 [facility] Comment on above: Expected: 11/04/2024 (Approximate), Expi res: 11/04/2025 Start: 11-04-2024 End: 11-04-2025 Triiodothyronine (T3) Free [Mass/volume] in Serum or Plasma T3, free Lab Routine Acquired hypothyroidism Expected: 11/04/2024 (Approximate), Expires: 11/04/2025 [facility] Work Phone: Comment on above: Expected: 11/04/2024 (Approximate), Expi res: 11/04/2025 Start: 11-04-2024 End: 11-04-2024 Patient encounter procedure 11/04/2024 11:30 AM EDT Office Visit [facility] [address] [place] [id number] Dionicio Trevizo MD [address] [place] [address] Arrived [facility] Comment on above: Arrived Start: 09-26-2024 Tobacco Screening Tobacco Screening [facility] Start: 08-10-2024 Plain X-ray of right shoulder XR shoulder RT min 2V* [facility] Start: 08-10-2024 XR Shoulder - right Views [facility] Start: 07-02-2024 X-ray of left knee, two views XR knee LT 2V [facility] Start: 07-02-2024 X-ray of right knee, four views XR knee RT 4V* [facility] Start: 07-02-2024 XR Knee - left 2 Views [facility] Start: 07-02-2024 XR Knee - right 4 Views [facility] Start: 05-15-2024 End: 05-15-2024 Patient encounter procedure 05/15/2024 11:30 AM EST Office Visit Neurology [address] [place] [address] Tai Hinojosa MD [address] [place] [address] Return in about 6 months (around 05/14/2024). Neurology Comment on above: Return in about 6 months (around 05/14/19 25). Start: 05-06-2024 End: 05-06-2025 Thyrotropin [Units/volume] in Serum or Plasma TSH Lab Routine Acquired hypothyroidism (CMS/HCC) Expected: 05/06/2024 (Approximate), Expires: 05/06/2025 [facility] Comment on above: Expected: 05/06/2024 (Approximate), Expi res: 05/06/2025 Start: 05-06-2024 End: 05-06-2025 Thyroxine (T4) free [Mass/volume] in Serum or Plasma T4, free Lab Routine Acquired hypothyroidism (CMS/HCC) Expected: 05/06/2024 (Approximate), Expires: 05/06/2025 [facility] Comment on above: Expected: 05/06/2024 (Approximate), Expi res: 05/06/2025 Start: 05-06-2024 End: 05-06-2025 Triiodothyronine (T3) Free [Mass/volume] in Serum or Plasma T3, free Lab Routine Acquired hypothyroidism (CMS/HCC) Expected: 05/06/2024 (Approximate), Expires: 05/06/2025 [facility] Work Phone: Comment on above: Expected: 05/06/2024 (Approximate), Expi res: 05/06/2025 Start: 05-06-2024 End: 05-06-2024 Patient encounter procedure 05/06/2024 11:10 AM EST [facility] [address] [place] [phone] Dionicio Trevizo MD [address] [place] [address] Arrived [facility] Comment on above: Arrived Start: 04-15-2024 Advance Directive Discussion Advance Directive Discussion [facility] Start: 02-24-2024 Plain X-ray of right shoulder XR shoulder RT min 2V* [facility] Start: 02-24-2024 XR Shoulder - right Views [facility] Start: 02-13-2024 [facility] Start: 02-13-2024 Administration of prophylactic treatment [facility] Start: 02-12-2024 Hospital admission [facility] Start: 02-12-2024 Microbial culture, body fluid [facility] Start: 01-29-2024 MRSA Culture MRSA Culture [facility] Start: 01-23-2024 Plain X-ray of right shoulder XR shoulder RT min 2V* [facility] Start: 01-23-2024 XR Shoulder - right Views [facility] Start: 12-26-2023 Pneumococcal Vaccine: 50+ (3 of 3 - PCV20 or PCV21) Pneumococcal Vaccine: 50+ (3 of 3 - PCV20 or PCV21) [facility] Start: 12-26-2023 Pneumococcal Vaccine: 65+ (3 of 3 - PPSV23 or PCV20) Pneumococcal Vaccine: 65+ (3 of 3 - PPSV23 or PCV20) [facility] Start: 12-26-2023 Pneumococcal Vaccine: 65+ Years (3 of 3 - PCV20 or PCV21) Pneumococcal Vaccine: 65+ Years (3 of 3 - PCV20 or PCV21) [facility] Start: 12-26-2023 Pneumococcal Vaccine: 65+ Years (3 of 3 - PPSV23 or PCV20) Pneumococcal Vaccine: 65+ Years (3 of 3 - PPSV23 or PCV20) [facility] Start: 12-15-2023 COVID-19 Vaccine ( season) COVID-19 Vaccine ( season) [facility] Start: 12-15-2023 Influenza vaccination [facility] Start: 04-15-2023 Advance Directive Discussion Advance Directive Discussion [facility] Start: 04-15-2023 Depression Assessment Depression Assessment [facility] Start: 12-14-2022 Covid-19 Vaccine ( season) Covid-19 Vaccine ( season) [facility] Start: 12-14-2022 Covid-19 Vaccine ( season) Covid-19 Vaccine ( season) [facility] Start: 12-14-2022 Influenza vaccination Influenza Vaccine (#1) [facility] Start: 12-14-2021 Influenza vaccination INFLUENZA (#1) [facility] Start: 12-04-2021 Plain X-ray of right shoulder XR shoulder RT min 2V* [facility] Start: 12-04-2021 End: 12-04-2021 Patient encounter procedure Departed Clinical [facility] [place] Start: 10-18-2021 End: 10-18-2021 [facility] Work Phone: Start: 09-20-2021 Prosthetic total arthroplasty of right shoulder OR Shoulder Arthroplasty-Total (Right) [facility] Start: 08-08-2021 Adult depression screening assessment DEPRESSION SCREENING [facility] Start: 04-15-2021 ADVANCE DIRECTIVE DISCUSSION ADVANCE DIRECTIVE DISCUSSION [facility] Start: 2020 BONE DENSITY BONE DENSITY [facility] Start: 2020 Fall Risk Screening Fall Risk Screening [facility] Start: 2020 PNEUMOCOCCAL: 65+ (1 - PCV) PNEUMOCOCCAL: 65+ (1 - PCV) [facility] Start: 2020 Screening for osteoporosis Bone Density Screening [facility] Start: 2015 RSV Vaccine (1 - 1-dose 60+ series) RSV Vaccine (1 - 1-dose 60+ series) [facility] Start: 2005 SHINGRIX VACCINE (1 of 2) SHINGRIX VACCINE (1 of 2) [facility] Start: 2000 COLOGUARD (FIT-DNA) COLOGUARD (FIT-DNA) [facility] Start: 2000 Colonoscopy COLONOSCOPY [facility] Start: 2000 COLORECTAL CANCER SCREENING COLORECTAL CANCER SCREENING [facility] Start: [address] COLONOGRAPHY [facility] Start: 2000 DIABETES SCREEN DIABETES SCREEN [facility] Start: 2000 FECAL OCCULT BLOOD FECAL OCCULT BLOOD [facility] Start: 2000 Lipid panel Lipid Screening [facility] Start: 2000 LIPID SCREEN LIPID SCREEN [facility] Start: 2000 Screening for malignant neoplasm of colon [facility] Start: 2000 SIGMOIDOSCOPY SIGMOIDOSCOPY [facility] Start: 1995 Mammography MAMMOGRAM [facility] Start: 1995 Screening for malignant neoplasm of breast [facility] Start: 1974 Urine microalbumin profile DTAP,TDAP,TD (1 - Tdap) [facility] Start: 1973 Adult BMI Follow Up Plan Adult BMI Follow Up Plan [facility] Start: 1973 Anxiety Screening Anxiety Screening [facility] Start: 1973 Depression Screening Depression Screening [facility] Start: 1973 HEPATITIS C SCREENING HEPATITIS C SCREENING [facility] Start: 1973 Hepatitis C screening Hepatitis C Screening [facility] Start: 1967 Depression Screening Depression Screening [facility] Start: 1955 COVID-19 VACCINE (#1) COVID-19 VACCINE (#1) [facility] Start: 1955 Medicare Annual Wellness (AWV) Medicare Annual Wellness (AWV) [facility] Start: 1955 Screening for malignant neoplasm of colon [facility] CT Shoulder - right WO contrast [facility] Methicillin resistan t Staphylococcus aureus [Presence] in Unspecified specimen by Organism specific culture [facility] Patient Education Know your Meds [facility] Work Phone: [facility] Immun[facility] Immunization Date Immunization Notes Care Provider Venkat tipton 09-27-2022 Covid-19, Mrna, Lnp- s, Bivalent, Pf, 30mcg/0.3 ml [facility] Work Phone: [facility] 11-29-2021 COVID-19, mRNA, LNP- S, PF, 100mcg/0.5mL Dose [facility] Work Phone: [facility] 03-26-2021 Pfizer-BioNTech COVID-19 Vacc 30 MCG/0.3ML Intramuscular Suspension [facility] Work Phone: [facility] 01-10-2021 Fluzone High-Dose Quadrivalent 0.7 ML Intramuscular Suspension Prefilled Syringe [facility] Work Phone: [facility] 01-10-2021 influenza virus vaccine, unspecified formulation No Stearns RN [facility] 12-28-2020 diphtheria, tetanus toxoids and pertussis vaccine Alexeyconcepción Pedersonlong Work Phone: [facility] 07-14-2020 Pfizer-BioNTech COVID-19 Vacc 30 MCG/0.3ML Intramuscular Suspension Alexey G Bglong Work Phone: [facility] 06-28-2020 tetanus toxoid, redu anne diphtheria toxoid, and acellular pertussis vaccine, adsorbed Alxeey G Bglong Work Phone: [facility] 06-23-2020 Pfizer[employer] COVID-19 Vacc 30 MCG/0.3ML Intramuscular Suspension Alexey G Bglong Work Phone: [facility] 04-11-2020 zoster vaccine recombinant No Stearns RN [facility] 12-19-2019 influenza, injectabl e, quadrivalent, preservative free Alexey G Furlong Work Phone: [facility] 12-15-2019 influenza, seasonal, injectable No Stearns RN [facility] 10-28-2019 zoster vaccine recombinant Alexey G Furlong [...] Center 12-14-2016 influenza virus vaccine, unspecified formulation Alexeyconcepción Pedersonlong DO Work Phone: [facility] 12-14-2016 influenza, injectabl e, quadrivalent, preservative free Alexey G Furlong Work Phone: [facility] 11-20-2015 influenza, seasonal, injectable, preservative free Alexey G Furlong Work Phone: [facility] 11-20-2015 pneumococcal polysaccharide vaccine, 23 valent Alexey Pedersonlong Work Phone: [facility] 11-20-2015 zoster vaccine, live Alexey Pedersonlong Work Phone: [facility] 12-31-2014 influenza, seasonal, injectable, preservative free Alexey Bradfordng Work Phone: [facility] NEGATED: Highlighted row has not occurred!05-19-2022 pneumococcal polysaccharide vaccine, 23 valent Alexey Polo DO Work Phone: [employer] Payers Date Payer Category Payer Self-pay [id number] 2023 Medicare HMO [employer]ARE [id number] 2022 Medicare (Managed Care) [id number] 2022 Medicare [id number] 2020 Medicare [id number] 1.13.159. [id number] 2013 Medicaid [id number]. 1.13.159. [id number] 1959 Medicaid [id number] 1959 Medicare [id number] 1955 Unknown [id number] 2.16.840.1.761518.3.579. 2.647 1955 Unknown [id number] 2.16.840.1.367318.3.579. 2.593 1955 Unknown [id number] 2.16.840.1.648757.3.579. 2.593 1955 Unknown [id number] 2.16.840.1.727661.3.579. 2.593 1955 Unknown [id number] 2.16.840.1.689554.3.579. 2.593 1955 Unknown [id number] 2.16.840.1.750238.3.579. 2.593 1955 Unknown [id number] 2.16.840.1.130181.3.579. 2.593 1955 Unknown [id number] 2.16.840.1.739641.3.579. 2.593 1955 Unknown [id number] 2.16.840.1.244574.3.579. 2.593 1955 Unknown [id number] 2.16.840.1.526348.3.579. 2.1286 1955 Unknown [id number] 2.16.840.1.980969.3.579. 2.1286 1955 Unknown [id number] 2.16.840.1.102558.3.579. 2.1286 1955 Unknown [id number] 2.16.840.1.604081.3.579. 2.1286 1955 Unknown [id number] 2.16.840.1.636198.3.579. 2.1259 1955 Unknown [id number] 2.16.840.1.784226.3.579. 2.1259 Unknown Unknown [id number] 2.16.840.1.058781.3.579. 2.531 Unknown [id number] 2.16.840.1.691372.3.579. 2.531 Unknown [id number] 2.16.840.1.592127.3.579. 2.531 Unknown [id number] 2.16.840.1.909979.3.579. 2.531 Unknown [id number] 2.16.840.1.461478.3.579. 2.531 Unknown [id number] 2.16.840.1.357944.3.579. 2.531 Unknown [id number] 2.16.840.1.954216.3.579. 2.531 Unknown [id number] 2.16.840.1.959153.3.579. 2.531 Social History Date Type Detail Facility Start: 07-21-2018 End: 2020 Daily caffeine consumption Daily caffeine consumption [facility] Work Phone: Comment on above: 1-2 cups of coffee d aily. Occas iced tea. Diet coke ocassional; Quit in ; Start: 07-21-2018 End: 2020 Sex Assigned At [facility] Work Phone: Start: 10-18-2021 End: 02-18-2023 Tobacco smoking status NHIS Ex-smoker (finding) [facility] Start: 1955 Sex Assigned At Female F [facility] Start: 04-15-1971 End: 07-21-2017 History of tobacco use Current smoker [facility] Start: 04-15-1971 End: 07-21-2017 History of tobacco use Cigarette Smoker [facility] Start: 07-21-2018 End: 02-18-2023 Tobacco use and exposure Smokeless tobacco non-user [facility] Start: 08-10-2020 End: 11-12-2023 Alcohol intake Lifetime non-drinker (finding) [facility] Start: 07-21-2018 History SDOH Alcohol Frequency 1 [facility] Start: 1955 Sex Assigned At Not on file C [facility] Start: 12-23-2021 End: 01-02-2022 Exposure to SARS-CoV-2 (event) Not sure [facility] History of tobacco use Passive smoker [facility] How often to you hav e a drink containing alcohol? Never [facility] Work Phone: Average Number of Drinks Not on file [facility] Start: 11-18-2014 End: 02-24-2024 Sex Female (finding) [facility] Start: 09-27-2023 Alcoholic beverage intake Current non-drinker of alcohol (finding) [facility] Start: 03-23-2022 Tobacco Comment Quit in the , STARTED AGE 18 [employer] [facility] Medical Equipment Procedure Code Equipment Code Equipment Origin al Text Equipment Identifier Dates Arthroplasty, shoulder, total Total reverse shoulder prosthesis ()[id number] [id number])21.020 99 FDA Start: 10-18-2021 Arthroplasty, shoulder, total Total reverse shoulder prosthesis ()[id number] 17)[id number])[id number] FDA Start: 10-18-2021 Arthroplasty, shoulder, total Total reverse shoulder prosthesis ()[id number]( 17)[id number](10)21.024 83 FDA Start: 10-18-2021 Arthroplasty, shoulder, total Total reverse shoulder prosthesis ()[id number]( 17)[id number](10)21.007 57 FDA Start: 10-18-2021 Arthroplasty, shoulder, total Total reverse shoulder prosthesis ()[id number]( 17)[id number](10)21.024 16 FDA Start: 10-18-2021 Arthroplasty, shoulder, total Total reverse shoulder prosthesis [id number]( 17)[id number] FDA Start: 10-18-2021 Arthroplasty, shoulder, total Total reverse shoulder prosthesis ()[id number]( 17)[id number](10)[id number] FDA Start: 10-18-2021 Arthroplasty, shoulder, total Total reverse shoulder prosthesis ([id number]( 17)[id number](10)[id number] FDA Start: 10-18-2021 Arthroplasty, shoulder, total Total reverse shoulder prosthesis ()[id number]( 17)[id number](10)[id number] FDA Start: 10-18-2021 Arthroplasty, shoulder, total Total reverse shoulder prosthesis ([id number]( 17)[id number](10)[id number] FDA Start: 10-18-2021 Total reverse shoulder prosthesis ([id number]( 17)[id number]([id number] 76 FDA Start: 02-12-2024 Total reverse shoulder prosthesis (01)[id number]( 17)[id number](10)22.040 47 FDA Start: 02-12-2024 Total reverse shoulder prosthesis ([id number]( 17)[id number](10)23.020 74 FDA Start: 02-12-2024 Mesh Pco Vntrl P tch 4.6cm Rpl [id number] - Sna - [id number] Start: 01-29-2020 Goals Date Patient Goal [...] progress towards goal: return to [facility] Functional Status Date Assessment Result Facility 02-13-2024 Functional status Patient Not at [facility] Work Phone: Mental Status Date Assessment Result Facility 02-13-2024 Cognitive function Cognitive Sta tus Patient Not at [facility] Work Phone: Clinical Notes 03-22-2021 to 01-22-2025 Alexey Polo DO - 01/05/2025 11:59 PM EDDuy Polo, - 12/04/2024 11:59 PM Moreno Trevizo MD - 11/04/2024 11:30 AM Penny Polo DO - 10/30/2024 11:59 PM EDT Note Date & Type Note Facility 01-22-2025 Note [facility] Note Reason for cardiology [...] she underwent Lexiscan nuclear stress test at [facility] which did not show definite perfusion [...] states that her blood pressure at the alf go sometimes up to 200s and sometimes it send normal in the 130s. She used to smoke half pack per day for about 10 years however she quit in the . Regarding family history her father secondary to CT at age 74 and her mother secondary to stroke in her 70s. ROS: All systems were reviewed and they were negative except for the positive findings noted above in the history Past Medical History She has a past medical history of Anemia, Anxiety, Arthritis, Chronic kidney disease, Closed fracture of neck of femur (CMS/HCC) (06/16/2020), COVID-19 (07/04/2023), Dysphagia, Epilepsy (CMS/[facility]), GERD (gastroesophageal reflux disease), Hyperlipidemia, [...] Take 2 mg by mouth every 6 (si (more content not included)... [facility] 01-05-2025 History of Present illness Narrative Patient Name: Melanie Espinoza Date of : 1955 Date of Service: 01/05/2025 [place] [facility] [place] of Visit: Subsequent Visit Subjective Melanie Espinoza is a 69 y.o. female seen today at assisted facility for problem and monthly visit. Melanie was having right knee pain and so I was contacted about it and we started Biofreeze. She reports that it is doing much better with Biofreeze. It has really helped . She had labs done a few days ago by the health center manager and they looked pretty good. She has [...] wants. Allergies: Erythromycin and Clarithromycin Code Status: [facility] BP 102/56 Pulse 61 Temp 36.6 C (97.8 F) Resp 18 Wt 44.2 kg (97 lb 6.4 oz) SpO2 94% BMI 17.25 kg/m Physical Exam Vitals reviewed. HENT: Head: [...] discussed. Can cause more hyponatremia which can lead to seizures and possibly . The patient made aware. Continue Biofreeze for knee. She is deriving benefit. Follow up with specialists as directed. ELECTRONICALLY SIGNED BY: Alexey Polo DO documented in this encounter [facility] [employer] 12-04-2024 History of Present illness Narrative Patient Name: Melanie Espinoza Date of : 1955 Date of Service: 12/04/2024 [place] [facility] [place] of Visit: Subsequent Visit Subjective Melanie Espinoza is a 69 y.o. female seen today at assisted facility for monthly visit. Melanie fell recently but didn't get hurt. She was trying to get up to go to the bathroom. She feels her movements are better. Her hand is better. Allergies: Erythromycin and Clarithromycin Code Status: [facility] BP 104/64 Pulse 62 Temp 36.6 C (97.9 F) Resp 18 Wt 43.8 kg (96 lb 9.6 oz) SpO2 94% BMI 17.11 kg/m Physical Exam Vitals reviewed. HENT: Head: Normocephalic. Cardiovascular: Rate and Rhythm: Normal rate and regular rhythm. Pulses: Normal pulses. Heart sounds: Normal heart sounds. No murmur heard. Pulmonary: Effort: Pulmonary effort is normal. No respiratory distress. Breath sounds: Normal breath sounds. No wheezing or rhonchi. Neurological: General: No focal deficit present. Mental Status: She is alert and oriented to person, place, and time. Comments: She had no abnormal movements during visit Psychiatric: Attention and Perception: Attention normal. Mood and Affect: Mood and affect normal. Speech: Speech normal. Behavior: Behavior normal. Thought Content: Thought content normal. Cognition and Memory: Cognition normal. Judgment: Judgment normal. Lab: Na+ 134-L Total prot. 5.9-L Lipids at goal CBC, TSH and T4 are normal Assessment/Plan Summary / Assessment / Plan 1. Primary hypertension 2. SIADH (syndrome of inappropriate ADH production) 3. Acquired hypothyroidism 4. Hypoglycemia 5. Tardive dyskinesia 6. Iron deficiency anemia, unspecified iron deficiency anemia type 7. Multifactorial gait disorder Her blood pressure is at goal. Her lipids and thyroid are at goal. Her anemia has resolved. Her movement disorder is improved. SIADH is stable. Continue current regimen. All medications reviewed and are medically necessary. ELECTRONICALLY SIGNED BY: Alexey Polo DO documented in this encounter [facility] 11-04-2024 History of Present illness Narrative Melanie Espinoza is a 69 y.o. female No ref. provider found presents with chief complaint of Thyroid Problem and Follow-up HPI: Interim History: 10/2024 Follow-up visit of 11/04/2024 for hypothyroidism. on levothyroxine mcg daily, [place] TSH 3.6, free T4 0.84 ( 0.6-1.6), free T3 2.1 ( 1.58-3.91) Interim History: 04/2024 Follow-up visit of 05/06/2024 for hypothyroidism. on levothyroxine mcg daily, [place] Interim History: 10/2023 Follow-up visit of 10/23/2023 for hypothyroidism. on levothyroxine 100 mcg daily by ER team on PCP ?, [place] lab on 09/2023 TSH 1.85, FT4 0.93, T3 0.65 (0.8-1.8) Interim History: 09/2022. Follow-up visit of 09/28/2022 for hypothyroidism. on levothyroxine 75 mcg daily, [place] Interim History: 09/2021. Follow-up visit of 10/06/2021 for hypothyroidism. on levothyroxine 75 mcg daily, [place] , no new lab Interim History: 04/2021. Follow-up visit of 04/24/2020 for hypothyroidism. T3 0.75 (0.6-1.8) free T4 0.86(0.78- 1.48), and TSH 1.356. on levothyroxine 75 mcg daily, [place] live [place] Interim History: 04/2020. Follow-up visit of for [...] unsteady. She is following with neurologist in [facility] for that. Lab done on [...] months (around 05/07/2025). documented in this encounter [facility] 10-30-2024 History of Present illness Narrative Patient Name: Melanie Espinoza Date of : 1955 Date of Service: 10/30/2024 [place] [facility] [place] of Visit: Acute Visit Subjective Melanie Espinoza is a 69 y.o. female seen today at assisted facility for problem and monthly visit. Melanie [...] her. Allergies: Erythromycin and Clarithromycin Code Status: [facility] BP 110/64 Pulse 59 Temp 36.7 C [...] documented in this encounter [facility] [employer] 10-09-2024 History of Present illness Narrative Patient Name: Melanie Espinoza Date of : 1955 Date of Service: 10/09/2024 [place] [facility] [place] of Visit: Subsequent Visit Subjective Melanie Espinoza is a 69 y.o. female seen today at assisted facility for monthly visit. No new problems reported by staff or patient. Psych nurse is managing her psychiatric issues and they are going to cut back on her anxiety medication and increase her Austedo. Allergies: Erythromycin and Clarithromycin Code Status: [facility] BP 107/60 Pulse 54 Temp 36.6 C [...] Alexey Polo DO documented in this encounter [facility] 10-09-2024 History of Present illness Narrative Patient Name: Melanie Espinoza Date of : 1955 Date of Service: 10/09/2024 [place] [facility] [place] of Visit: Subsequent Visit Subjective Melanie Espinoza is a 69 y.o. female seen today at assisted facility for monthly visit. Patient reports that the psych nurse is cutting back on anxiety meds and increase Austedo. She has no new problems to report. Allergies: Erythromycin and Clarithromycin Code Status: [facility] BP 107/60 Pulse 54 Temp 36.6 C [...] documented in this encounter [facility] [employer] 09-11-2024 History of Present illness Narrative Patient Name: Melanie Espinoza Date of : 1955 Date of Service: 09/11/2024 [place] [facility] [place] of Visit: Subsequent Visit Subjective Melanie Espinoza is a 69 y.o. female seen today at assisted facility for regular visit. No new problems reported by staff or patient. She cut back on caffeine and her movement disorder is better. She is also back on Austedo. Allergies: Erythromycin and Clarithromycin Code Status: [facility] BP 130/68 Pulse 72 Temp 36.7 C (98.1 F) Resp 17 Wt 45.6 kg (100 lb 9.6 oz) SpO2 97% BMI 17.82 kg/m Physical Exam Vitals reviewed. Exam conducted with a frame stylist present (Moi Espinoza MS 3). Constitutional: General: [...] Alexey Polo DO [facility] 08-07-2024 Note [facility] Note [...] she underwent Lexiscan nuclear stress test at [facility] which did not show definite perfusion [...] states that her blood pressure at the alf go sometimes up to 200s and sometimes it send normal in the 130s. She used to smoke half pack per day for about 10 years however she quit in the . Regarding family history her father secondary to CT at age 74 and her mother secondary to stroke in her 70s. ROS: All systems were reviewed and they were negative except for the positive findings noted above in the history Past Medical History She has a past medical history of Anemia, Anxiety, Arthritis, Chronic kidney disease, Closed fracture of neck of femur ([facility]) (06/16/2020), COVID-19 (07/04/2023), Dysphagia, Epilepsy ([facility]), GERD (gastroesophageal reflux disease), Hyperlipidemia, Hypertension, Major depressive disorder, Osteoarthritis, Peripheral vascular disease, Rectal prolapse, Rhabdomyolysis (07/04/2023), Sepsis ([facility]) (07/04/2023), Tardive dyskinesia, and Tremor. [...] chew. (Patient ta (more content not included)... [facility] 08-05-2024 History of Present illness Narrative Patient Name: Melanie Espinoza Date of : 1955 Date of Service: 08/05/2024 [place] [facility] [place] of Visit: Subsequent Visit Subjective Melanie Espinoza is a 69 y.o. female seen today at assisted facility for regular visit. No new problems reported by staff or patient. Her movements seem to be improved with starting Austedo XR. She has an appointment coming up with the health center manager in a couple weeks. Allergies: Erythromycin and Clarithromycin Code Status: [facility] BP 118/66 Pulse 90 Temp 36.6 C (97.9 F) Resp 18 Wt 45.9 kg (101 lb 3.2 oz) SpO2 96% BMI 17.93 kg/m Physical Exam Vitals reviewed. Exam conducted with a frame stylist present (Julio Cesar Tim MS 3). Constitutional: [...] Alexey Polo DO [facility] History of Present illness Narrative Patient Name: Melanie Espinoza Date of : 1955 Date of Service: 07/02/2024 [place] [facility] [place] of Visit: Subsequent Visit Subjective Melanie Espinoza is a 69 y.o. female seen today at assisted facility for regular visit. Melanie had labs done [...] report. Allergies: Erythromycin and Clarithromycin Code Status: [facility] Physical Exam Vitals reviewed. Constitutional: General: She [...] 7. SIADH (syndrome of inappropriate ADH production) ([facility]) F/U with ortho. May need right TKA. Decrease Fe+ 325mg supplement to once a day as she is no longer anemic. Stay on fluid restriction since Na+ is still low. Lipids at goal-continue atorvastatin 40mg. Continue austedo. All medications reviewed and are medically necessary. ELECTRONICALLY SIGNED BY: Alexey Polo DO documented in this encounter [facility] [employer] [facility] 06-25-2024 Note Orthopedic Surgery Subjective Chief complaint: [...] disease Closed fracture of neck of femur ([facility]) 06/16/2020 COVID-19 07/04/2023 Dysphagia Epilepsy ([facility]) GERD (gastroesophageal reflux disease) Hyperlipidemia Hypertension Major depressive disorder Osteoarthritis Peripheral vascular disease Rectal prolapse Rhabdomyolysis 07/04/2023 Sepsis ([facility]) 07/04/2023 Tardive dyskinesia Tremor Objective [...] this patient on (more content not included)... [facility] 06-01-2024 Evaluation note Diagnosis Onset Date Resolution History of reverse total replacement of right shoulder joint acute June 012024 11:40am History of revision of total shoulder arthroplasty acute June 01, 2 025 11:40am Other mechanical complication of other internal orthopedic devices, implant acute June 01, 2024 11:40am Right knee pain acute June 01, 2024 11:40am [facility] Work Phone: 1(116) 146-701702-17-2025 Evaluation note* Diagnosis Onset Date Resolution Status [...] right knee acute M arch 2024 1:32pm [facility] Work Phone: 1(862) 115-506102-17-2025 Evaluation note* Diagnosis Onset Date Resolution Status [...] right knee acute A pril 2024 8:30am [facility] Work Phone: 1(471) 245-139302-17-2025 Evaluation note* Diagnosis Onset Date Resolution Status [...] orthopedic devices, implant acute August 10 11:19am [facility] Work Phone: 1(559) 486-143802-12-2025 History of Present illness Narrative* Alexey Polo, DO - 05/27/2024 11:59 PM EST Patient Name: Melanie Espinoza Date of : 1955 Date of Service: 05/27/2024 [place] [facility] [place] of Visit: Acute Visit Subjective Melanie Espinoza is a 69 y.o. female seen today at assisted facility for therapy visit. Melanie asked see me because of her fluid restriction. She would like to have it raised. Staff reports that she frequently sneaks fluids various ways. She denies new problems. She has follow up with ortho for her reverse shoulder replacement. Allergies: Erythromycin and Clarithromycin Code Status: [facility] BP 127/86 Pulse 71 Temp (!) 35.8 C (96.4 F) Physical Exam Vitals reviewed. Exam conducted with a frame stylist present (Cole Aamdor MS 3). Constitutional: General: She is not [...] BY: Alexey Polo DO [facility] History of Present illness Narrative* Dionicio Trevizo MD - 05/06/2024 11:10 AM EST Melanie Espinoza is a 68 y.o. female Dionicio Trevizo MD presents with chief complaint of Thyroid Problem and Follow-up HPI: Interim History: 04/2024 Follow-up visit of 05/06/2024 for hypothyroidism. on levothyroxine mcg daily, [place] Interim History: 10/2023 Follow-up visit of 10/23/2023 for hypothyroidism. on levothyroxine 100 mcg daily by ER team on PCP ?, [place] lab on 09/2023 TSH 1.85, FT4 0.93, T3 0.65 (0.8-1.8) Interim History: 09/2022. Follow-up visit of 09/28/2022 for hypothyroidism. on levothyroxine 75 mcg daily, [place] Interim History: 09/2021. Follow-up visit of 10/06/2021 for hypothyroidism. on levothyroxine 75 mcg daily, [place] , no new lab Interim History: 04/2021. Follow-up visit of 04/24/2020 for hypothyroidism. T3 0.75 (0.6-1.8) free T4 0.86(0.78- 1.48), and TSH 1.356. on levothyroxine 75 mcg daily, [place] Interim History: 04/2020. Follow-up visit of for [...] unsteady. She is following with neurologist in [facility] for that. Lab done on [...] No follow-ups on file. [id number] History of Present illness Narrative* Alexey Polo, - 04/17/2024 3:57 PM EST Patient Name: Melanie Espinoza Date of : 1955 Date of Service: 04/17/2024 Facility: [facility] Type of Visit: Subsequent Visit Subjective Melanie [...] yet. Allergies: Erythromycin and Clarithromycin Code Status: [facility] BP (!) 143/104 Pulse 75 Physical Exam [...] BY: Alexey Polo DO [facility] History of Present illness Narrative* Alexey Polo, DO - 04/01/2024 11:59 PM EST Patient Name: Melanie Espinoza Date of : 1955 Date of Service: 04/01/2024 Facility: [facility] Type of Visit: Skilled Visit Subjective Melanie [...] controlled. Allergies: Erythromycin and Clarithromycin Code Status: [facility] BP 159/85 Pulse 82 Temp 36.8 C [...] BY: Alexey Polo DO [facility] Evaluation note* Diagnosis Onset Date Resolution Status Admit Date History of reverse total replacement of right shoulder joint acute March 31, 024 11:51am History of revision of total [...] knee pain acute June 01, 2024 11:40am [facility] Work Phone: 1(475) 532-583210-31-2024 Progress note Author Nickolas Hawthorne [facility] February 13, 2024 8:15am Note Date/Time February 13, 2024 8 :15am [facility] [address] [place], [place] [id number] Orthopedic Progress Note Signed Patient: Melanie Espinoza MR#: [id number] : 1955 Acct:[id number] Age/Sex: 68 / F Adm Date: 4 Loc: 4N Room: [address] [place] [address] [place]: [facility]: Nickolas Hawthorne DO Copies to: [...] % (Auto) 73.7 Lymph % (Auto) 14.6 [place] % (Auto) 8.7 Eos % (Auto) 2.1 Baso % (Auto) 0.9 Nucleat RBC Rel Count 0.1 Neut # (Auto) 4.8 Lymph # (Auto) 0.9 L [place] # (Auto) 0.6 Eos # (Auto) 0.1 [...] A Synov Supernatant Color Red Synovial RBC [id number] H Synovial Tot Nuc Cell [id number] H Synovial Neutrophils 12 Synovial Eosinophils 0 [...] signed by Nickolas Hawthorne DO> 02/13/24 0815 [facility] Work Phone: 1(943) 313-283010-10-2024 Evaluation note* Diagnosis Onset Date Resolution Status Admit Date History of reverse total replacement of right shoulder joint acute January 22 9:23am Other mechanical complicatio n of other internal orthopedic devices, implant acute January 22, 024 9:23am History of revision of total shoulder arthroplasty acute February 112023 11:55am History of reverse total replacement of right shoulder joint acute February 23, 2 024 9:13am History of revision of total shoulder arthroplasty acute February 132023 9:13am Other mechanical complicatio n of other internal orthopedic devices, implant acute February 24, 2024 9:13am [facility] Work Phone: 1(425) 564-454309-13-2024 Telephone encounter Note* Telephone Encounter - Lynnette Ortiz RN - 12/27/2023 2:12 PM EDT Rx's faxed Spoke with membership secretary at [facility]. Azara is not in today Will relay the message from me Martin Ortiz RN ext [phone] [facility]09-13-2024 Miscellaneous Notes* Telephone Encounter - Lynnette Ortiz RN - 12/27/2023 2:12 PM EDT Rx's faxed Spoke with membership secretary at [facility]. Azara is not in today Will relay [...] or not Caller can be reached at [phone] * Telephone Encounter - Arnold Hall RN - 12/26/2023 10:36 AM EDT Spoke to Gonzalolencho at [facility]. Pt using inpatient pharmacy and her insurance changed, states Austedo is $7800/month, and Pt cannotafford, has not had medication in 3 days. Pharmacist recommended alternatives below, Destiney states Pt can afford either option, looking for whatever would be the best alternative. -Amantadine 100mg BID ($18/month) -Tetrabenazine 25mg BID ($1300/month) Please fax new script to [phone] Forwarded to Provider to review. * Telephone Encounter - Radha Tilley - 12/26/2023 10:27 AM EDT Destiney at [facility] calling again, says patient is out of medication... requesting alternative medication * Telephone Encounter - Esperanza Larios - 12/25/2023 4:33 PM EDT [facility] calling to ask since pt insurance changed is there a alternative to Austedo that the pt canbe giving. Please call her at [phone] documented in this encounterAd[facility] Telephone encounter Note * Telephone Encounter - Tai Hinojosa MD - 12/27/2023 2:06 PM EDT Ok I am ordering BOTH of these. Amantadine may cause forgetfulness and hallucinations TBZ is usually a 3x/day med, but I am only ordering is bid bc that's they priced. [facility]09-12-2024 Telephone encounter Note* Telephone Encounter - Elise Burks - 12/26/2023 3:18 PM EDT [facility] is calling back to see if you fax rx to them. caller would like a call back either way today if rx was faxed or not Caller can be reached at [phone] [facility]09-12-2024 Telephone encounter Note* Telephone Encounter - Arnold Hall RN - 12/26/2023 10:36 AM EDT Spoke to Destiney at [facility]. Pt using inpatient pharmacy and her insurance changed, states Austedo is $7800/month, and Pt cannotafford, has not had medication in 3 days. Pharmacist recommended alternatives below, Destiney states Pt can afford either option, looking for whatever would be the best alternative. -Amantadine 100mg BID ($18/month) -Tetrabenazine 25mg BID ($1300/month) Please fax new script to [phone] Forwarded to Provider to review. [facility]09-12-2024 Telephone encounter Note* Telephone Encounter - Radha Tilley - 12/26/2023 10:27 AM EDT Destiney at [facility] calling again, says patient is out of medication... requesting alternative medication [facility]09-11-2024 Telephone encounter Note* Telephone Encounter - Esperanza Larios - 12/25/2023 4:33 PM EDT [facility] calling to ask since pt insurance changed is there a alternative to Austedo that the pt canbe giving. Please call her at [phone] [facility]07-30-2024 NoteHNO ID: [id number] Author: TAI HINOJOSA MD Service: ? Author Type: Physician Type: Progress Notes Filed: 11/12/2023 11:37 Note Text: November 12, 2023 Tai Hinojosa MD [address] / [address] [address] Esteban Garza MD ([facility]) [address] [place] [address] Melanie Espinoza : 1955 Interval History: Melanie [...] Nerves: audible voice volu (more content not included)...[place] [address]-30-2024 History of Present illness Narrative* Tai Hinojosa MD - 11/12/2023 11:19 AM EDT November 12, 2023 Tai Hinojosa MD [address] / [address] [address] Esteban Garza MD ([facility]) [address] [place] [address] Melanie Espinoza : 1955 Interval History: Melanie [...] discussed with the patient. Level of service: [facility] level 3 (20-29 min). Time spent 26 min on the day of service, which included [id number] patient care, completing clinical documentation, obtaining and/or reviewing separately obtained history, performing a medically appropriate examination, counseling and educating the patient/family/caregiver, and ordering medications, tests, or procedures. Thank you for including me in the care of this interesting patient. Tai Hinojosa MD Staff Neurologist [facility] Cc: documented in this encounterAdams County [facility]03-15-2024 History of Present illness Narrative* No Stearns RN - 06/28/2023 9:59 AM EDT ACM MOHINDER RN Reason for review or outreach: Medication Adherence review per request of payer Medication Adherence Review Details: Cholesterol FYI / ACTION REQUEST: Patient identified by name and date of Summary/Findings of review: Patient is seeing Non-[facility] PCP at [facility] Patient Attributed To: [facility] Payer: [facility] Action Taken: Data submitted to Payer Other Contact made with patient: No, Chart review only. Signature: No Stearns RN documented in this encounterAdams County [facility] Center03-06-2023 Evaluation note* Encounter Date Diagnosis [...] arthroplasty of right shoulder (ICD-10 - Z96.611) [facility] Other 10-17-2022 Evaluation note* Encounter Date Diagnosis [...] exercises, these were demonstrated. Call with questions/concerns. [facility] Other 09-20-2022 Instructions* Patient Instructions* Tai Hinojosa MD - 01/02/2022 9:43 AM EDT 1) Double the dose of Austedo to 12 mg twice a day for 1 month, then increase further to 18 mg 2) continue clonazepam and methocarbamol 3) continue primidone for the action tremor documented in this encounterAdams County [facility] Center09-20-2022 History of Present illness Narrative* Tai Hinojosa MD - 01/02/2022 9:25 AM EDT January 02, 2022 Tai Hinojosa MD [address] / [place] [id number] Esteban Garza MD ([facility]) [address] [place] [address] Melanie Espinoza : 1955 Interval History: Melanie [...] on the day of service, which included [id number] patient care, completing clinical documentation, obtaining and/or reviewing separately obtained history, performing a medically appropriate examination, counseling and educating the patient/family/caregiver, and ordering medications, tests, or procedures. Thank you for including me in the care of this interesting patient. 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 Her sodium is within normal limit. Continue fluid restriction. Nov, HTN (hypertension) (ICD-10 - I10) Blood pressure is high today but usually well controlled at the alf. Continue current medications. Nov, Hydronephrosis (ICD-10 - N13.30) She reported that she was seen by neurologist and had extensive work-up done. She was advised intervention needed. Nov, Dyslipidemia (ICD-10 - E78.5) Continue statins. Continue follow with PCP for LFTs and lipid profile monitoring. [facility] Other 08-22-2022 Evaluation note* Encounter Date Diagnosis [...] arthroplasty of right shoulder (ICD-10 - Z96.611) [facility] Other 07-14-2022 Evaluation note* Encounter Date Diagnosis [...] on her own. Call with questions/concerns . [facility] Other 07-05-2022 Evaluation note* Encounter Date Diagnosis Assessment Notes Treatment Notes Treatment Clinical Notes Oct, History of reverse total replacement of right shoulder joint (ICD-10 - Z98.890) [facility] Other 06-06-2022 Evaluation note* Encounter Date Diagnosis Assessment Notes Treatment Notes Treatment Clinical Notes Sep, Status post reverse total arthroplasty of right shoulder (ICD-10 - Z96.611) [facility] Other 03-30-2022 Miscellaneous Notes* Telephone Encounter - Mary Gibbs Ma - 07/12/2021 1:25 PM EDT After receiving the first message from the patient [facility]. [...] 07/12/2021 12:53 PM EDT Donita calling from [facility] States the pt received a letter from insurance [employer] that medication Austedo 6 mg was denied. Will need prior authorization. Can you please assist with PA. [facility] requesting that once PA approved to fax to them at [phone]. Thanks. * Telephone Encounter - Kailey Andrews - 07/12/2021 11:08 AM EDT Patient called and would like to know if the doctor can reach out to the insurance company to do a prior auth for Austedo 6mg to receive medication.Please advise Thank you, Kailey documented in this encounterAdams County [facility] Center03-17-2022 NotePROCEDURE: XR SHOULDER RT [...] Electronically authenticated by: CM RAMIREZ Date: 2021-06-29 14:37[facility]02-15-2022 Evaluation note* Encounter Date Diagnosis Assessment [...] pain of right shoulder (ICD-10 - M25.511) [facility] Other 12-08-2021 Evaluation note* Encounter Date Diagnosis [...] stated that she has an appointment with nuclear security officer to check her thyroid. She follow-up with her family doctor as well. 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 Dyskinesia, tardive Subacute 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 Dyskinesia, orofacial Excessive physiologic tremor Essential and other specified forms of tremor documented in this encounter [facility]* Diagnosis Lingual facial buccal dyskinesia- Primary Orofacial dyskinesia Dyskinesia, tardive Subacute 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 documented in this encounter [facility]* Diagnosis Onset Date Resolution Status History of reverse total rep lacement of right shoulder joint acute [id number] acute [facility] Work Phone: Evaluation note* Diagnosis Onset Date Resolution Status History of reverse total rep lacement of right shoulder joint acute [id number] acute History of revision of total shoulder arthroplasty [facility] Work Phone: Evaluation note* Diagnosis Aftercare following right shoulder joint replacement surgery- Primary Witnessed apneic spells Movement 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 documented in this encounter [facility]* Diagnosis Primary hypertension- Primary Unspecified essential hypertension SIADH (syndrome of inappropriate ADH production) ([facility]) Other disorders of neurohypophysis Sleep disorder breathing Other sleep disturbances documented in this encounter [facility]* Diagnosis Acquired hypothyroidism ([facility])- Primary Unspecified hypothyroidism Movement 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 [facility] SIADH (syndrome of inappropriate ADH production) ([facility])- Primary Other disorders of neurohypophysis Hyperlipidemia, unspecified hyperlipidemia type Iron deficiency anemia, unspecified iron deficiency anemia type Hypo-osmolality and hyponatremia Hypocalcemia Hypokalemia Hypopotassemia documented in this encounter [facility]* Diagnosis Primary hypertension- Primary Unspecified essential hypertension Tardive dyskinesia Subacute 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 Primary osteoarthritis of right knee Iron deficiency anemia, unspecified iron deficiency anemia type Hyperlipidemia, unspecified hyperlipidemia type Hypokalemia Hypopotassemia SIADH (syndrome of inappropriate ADH production) Other disorders of neurohypophysis documented in this encounter [facility]* Diagnosis Tardive dyskinesia- Primary Subacute 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 Primary hypertension Unspecified essential hypertension S/P reverse total shoulder arthroplasty, right documented in this encounter [facility]Evaluation note* Diagnosis Dyskinesia, tardive- Primary Subacute 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 documented in this encounter [facility]* Diagnosis Tardive dyskinesia- Primary Subacute 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 Movement 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 Primary hypertension Unspecified essential hypertension [facility] Diagnosis Movement disorder- Primary 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 Anxiety Anxiety state, unspecified Tardive dyskinesia Subacute 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 SIADH (syndrome of inappropriate ADH production) Other disorders of neurohypophysis documented in this encounter [facility]* Diagnosis Primary hypertension- Primary Unspecified essential hypertension Anxiety Anxiety state, unspecified Tardive dyskinesia Subacute 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 Movement 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 documented in this encounter [facility]* Diagnosis Closed fracture of tuft of distal phalanx of left ring finger- Primary Closed fracture of tuft of distal phalanx of left middle finger Movement 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 Tardive dyskinesia Subacute 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 documented in this encounter [facility]Evaluation note* Diagnosis Acquired hypothyroidism- Primary Unspecified hypothyroidism Movement 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 documented in this encounter [facility]* Diagnosis Primary hypertension- Primary Unspecified essential hypertension SIADH (syndrome of inappropriate ADH production) Other disorders of neurohypophysis Acquired hypothyroidism Unspecified hypothyroidism Hypoglycemia Hypoglycemia, unspecified Tardive dyskinesia Subacute 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 Iron deficiency anemia, unspecified iron deficiency anemia type Multifactorial gait disorder Abnormality of gait documented in this encounter [facility]Evaluation note* Diagnosis Onset Date Resolution Status Admit Date Arthritis of right knee acute [facility] 2024 11:21am [facility] Work Phone: Evaluation note* Diagnosis Right knee pain, unspecified chronicity- Primary Hypo-osmolality and hyponatremia SIADH (syndrome of inappropriate ADH production) Other disorders of neurohypophysis Primary hypertension Unspecified essential hypertension Movement 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 Abnormality of gait Hyperlipidemia, unspecified hyperlipidemia type documented in this encounter [facility] SystemHistory general Narrative - Reported* Type Description Date Medical History hypothyroidism Medical History anxiety and depression 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 Surgical History tubal revision 1984 Surgical History HIP FRACTURE 02/2020 Surgical History COLONSCOPY 2020 Surgical History RECTAL PROLAPSE 12/2020 Hospitalization History SEE ABOVE Hospitalization History RECTAL PROLAPSE 12/2020 [facility] Other History general Narrative - Reported* Type Description Date Medical History hypothyroidism Medical History anxiety and depression 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 Surgical History tubal revision 1984 Surgical History HIP FRACTURE 02/2020 Surgical History COLONSCOPY 2020 Surgical History RECTAL PROLAPSE 12/2020 Surgical History right reverse total shoulder 20 22 Hospitalization History SEE ABOVE Hospitalization History RECTAL PROLAPSE 12/2020 [facility] Other InstructionsNot on filedocumented in this encounter [facility]Not on filedocumented in this encounter [facility] SystemInstructionsNot on filedocumented in this encounter [facility] SystemInstructionsNot on filedocumented in this encounter [facility] SystemReason for referral (narrative)No reason for referral information availableBluffton Hospital Work Phone: Summary Purpose Family History No Family History [...] t otal replacement of right shoulder joint [id number] Chief Complaint OP SP RT SHOULDER PA IN CONCERN M25.511 Z96.611 Shoulder pain T84.498A Reason for Visit 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 [id number] Chief Complaint OP SP RT SHOULDER PA IN CONCERN M25.511 Z96.611 Shoulder pain T84.498A Shoulder pain Shoulder pain Reason for Visit 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 [id number] History of revision of total shoulder arthroplasty [...] orthopedic devices, implant August 10, 2024 11:19am Chief Complaint Admit Date TBH-OP SP RT KNEE PAIN WX TBH December 24, 2024 11:21am Reason for Visit Admit Date Arthritis of right knee December 24, 2024 11:21am Additional Source Comments INFORMATION SOURCE (unrecogn ized section and content) DATE CREATED AUTHOR 01/14/2020 [facility] DATE CREATED AUTHOR AUTHOR'S ORGANIZ ATION 02/23/2021 [facility] DATE CREATED AUTHOR AUTHOR'S ORGANIZ ATION 04/12/2021 [facility] DATE CREATED AUTHOR AUTHOR'S ORGANIZ ATION 09/26/2021 [facility] DATE CREATED AUTHOR AUTHOR'S ORGANIZ ATION 06/06/2022 [facility] DATE CREATED AUTHOR AUTHOR'S ORGANIZ ATION 09/11/2023 [facility] DATE CREATED AUTHOR AUTHOR'S ORGANIZ ATION 08/13/2024 [facility] DATE CREATED AUTHOR AUTHOR'S ORGANIZ ATION 08/21/2024 [facility] DATE CREATED AUTHOR AUTHOR'S ORGANIZ ATION 11/05/2024 [facility] DATE CREATED AUTHOR AUTHOR'S ORGANIZ ATION 01/24/2025 [facility] REASON FOR VISIT (unrecogniz ed section and [...] Alexey Polo DO Primary Care Provider Active Refrigeration Mechanic Relationship Specialty Start Date End Date Esteban Garza [address] [place] [place] [address] PCP - General Family Practice 07/21/18 Refrigeration Mechanic Relationship Specialty Start Date End Date Esteban Garza [address] [place] [address] PCP - General Family Medicine 07/21/18 Refrigeration Mechanic Relationship Specialty Start Date End Date Esteban Garza [address] [employer] [address] PCP - General Family Medicine 07/21/18 Refrigeration Mechanic Relationship Specialty Start Date End Date Esteban Garza [address] [employer] [place] [address] PCP - General Family Medicine 07/21/18 Team [...] February 24, 2024 End: February 24, 2024 Refrigeration Mechanic Relationship Specialty Start Date End Date Alexey Polo DO [address] [place] [address] PCP - General Family Medicine 03/27/22 Refrigeration Mechanic Relationship Specialty Start Date End Date Esteban Garza MD [address] [place] [address] PCP - General Family Medicine 03/24/24 Refrigeration Mechanic Relationship Specialty Start Date End Date Esteban Garza MD [address] [place] [address] PCP - General Family Medicine 03/24/24 Refrigeration Mechanic Relationship Specialty Start Date End Date Alexey Polo DO [address] [place] [address] [place] [address] PCP - General Family Medicine 03/27/22 Team [...] July 02, 2024 End: July 02, 2024 Refrigeration Mechanic Relationship Specialty Start Date End Date Alexey Polo DO [address] [place] [address] PCP - General [facility] Medicine 03/27/22 Team Status: Inactive Member Role Status Dates Alexey Polo DO Primary Care Provider Active Start: July 21, 2024 End: July 21, 2024 Nickolas Hawthorne , DO Attending Provider Active St art: July 21, 2024 End: July 21, 2024 Team Status: Active Member Role Status Dates Alexey Polo DO Primary Care Provider Active Start: August 10, 2024 Nickolas Hawthorne DO Attending Provider Active St art: August 10, 2024 Team Status: Inactive Member Role Status Dates Alexey Polo DO Primary Care Provider Active Start: August 10, 2024 End: August 10, 2024 Nickolas Hawthorne , DO Attending Provider Active St art: August 10, 2024 End: August 10, 2024 Refrigeration Mechanic Relationship Specialty Start Date End Date Esteban Garza MD [address] [place] [address] PCP - [facility] Medicine 07/21/18 Refrigeration Mechanic Relationship Specialty Start Date End Date Alexey Polo DO [address] [place] [address] PCP - General Family Medicine 03/27/22 Refrigeration Mechanic Relationship Specialty Start Date End Date Alexey Polo DO [address] [place] [address] PCP - General Family Medicine 03/27/22 Refrigeration Mechanic Relationship Specialty Start Date End Date Esteban Garza MD [address] [place] [address] PCP - General Family Medicine 03/24/24 Refrigeration Mechanic Relationship Specialty Start Date End Date Esteban Garza MD [address] [place] [address] PCP - General Family Medicine 03/24/24 Team Status: Inactive Member Role Status Dates Alexey Polo DO Primary Care Provider Active Start: December 24, 2024 End: December 24, 2024 Nickolas Hawthorne DO Attending Provider Active St art: December 24, 2024 End: December 24, 2024 Source Comments (unrecognize d section and content) In the event this informatio n is protected by the Federal Confidentiality of Alcohol and Drug Abuse Patient Records regulations: The Federal rules restrict any use of the information to criminally investigate or prosecute any alcohol or drug abuse patient.[facility] CenterIn the event this information is protected by the Federal Confidentiality of Alcohol and Drug Abuse Patient Records regulations: The Federal rules restrict any use of the information to criminally investigate or prosecute any alcohol or drug abuse patient.[facility] CenterIn the event this information is protected by the Federal Confidentiality of Alcohol and Drug Abuse Patient Records regulations: The Federal rules restrict any use of the information to criminally investigate or prosecute any alcohol or drug abuse patient.[facility] CenterIn the event this information is protected by the Federal Confidentiality of Alcohol and Drug Abuse Patient Records regulations: The Federal rules restrict any use of the information to criminally investigate or prosecute any alcohol or drug abuse patient.[facility] CenterIn the event this information is protected by the Federal Confidentiality of Alcohol and Drug Abuse Patient Records regulations: The Federal rules restrict any use of the information to criminally investigate or prosecute any alcohol or drug abuse patient.[facility] Goals (unrecognized section and [...] BE BASED ON THE PRIMARY CLINICAL RECORDS. [facility]. provides no warranty or guarantee of the accuracy or completeness of information in this document.
[2025-01-25 13:05] LABS: Hematocrit 37.7 % (36.0-48.0); Hemoglobin 13.1 g/dL (12.0-16.0); Immature Granulocytes Abs Auto 0.05 10^3/uL (0.00-0.03); Immature Granulocytes Pct Auto 0.4 % (0.0-0.5); Lymphocytes Absolute Auto 0.8 10^3/uL (1.2-3.8); Mean Corpuscular HGB Conc 34.7 g/dL (29.9-35.2); Mean Corpuscular Hemoglobin 29.2 pg (26.7-34.0); Mean Corpuscular Volume 84.2 fL (81.0-99.0); Platelet Count 442 10^3/uL (150-450); Red Blood Count 4.48 10^6/uL (4.20-5.40); White Blood Count 12.1 10^3/uL (4.0-11.0)
[2025-01-25 13:55] LABS: Glucose Urine UA NEGATIVE (NEGATIVE)
[2025-01-25 13:56] LABS: Alanine Aminotransferase 23 U/L (14-59); Albumin Globulin Ratio 1.0; Albumin Level 3.1 g/dL (3.4-5.0); Alkaline Phosphatase 147 U/L (46-116); Anion Gap 16.2; Aspartate Amino Transferase 46 U/L (15-37); Blood Urea Nitrogen 9.0 mg/dL (7.0-18.0); Calcium 8.8 mg/dL (8.5-10.1); Carbon Dioxide 25.4 mmol/L (21.0-32.0); Chloride 92 mmol/L (98-107); Estimated GFR (African America >60 (>=60 mL/min/1.73m^2); Estimated GFR (Non-African Ame >60 (>=60 mL/min/1.73m^2); Globulin 3.0 g/dL; Glucose 91 mg/dL (74-106); Potassium 3.6 mmol/L (3.5-5.1); Sodium 130 mmol/L (136-145); Total Protein 6.1 g/dL (6.4-8.2)
== END 2025-01-25 12:29 | disposition home or self-care (01) ==
LOC: LAB 12:28
PROVIDERS: PCP Family Medicine; Visit Provider Family Medicine
DX: R30.0 Dysuria (principal); R41.82 Altered mental status, unspecified; R50.9 Fever, unspecified
CPT/HCPCS: 36415; 80053; 81003; 85025

== ENCOUNTER 2025-01-29 14:22 | Emergency (ER) | payer MEDICARE, MEDICAID, SELFPAY ==
--- OUTSIDE RECORDS SUMMARY | 2025-01-22 12:20 | XMS_ITS | Encounter Summary ---
Author Organization [facility] Address [address] [place] [address] Care Team Providers Care Relay Operator Name Role Phone Alexey Connor DO Primary Care Provider [phone] Reason for Visit * Reason Comments Follow-up Patient is here toda y for a 6 month follow up Hypertension Coronary Artery Disease Hyperlipidemia Encounter Details Date Type Department Care Team (Latest Contact Info) Description 01/22/2025 12:20 PM EDT Office Visit [facility] [address] [place] [address] Marline Sandoval MD [address] [place] [address] Generalized muscle ache (Primary Dx); Coronary artery disease involving hoopa coronary artery of hoopa heart without angina pectoris; Primary hypertension; Pure hypercholesterolemia Social History Tobacco Use Types Packs/Day Years Used Date Smoking Tobacco: Former Cigarettes Smokeless Tobacco: Never Alcohol Use Standard Drinks/Week Comments Never 0 (1 standard drink = 0.6 oz pur e alcohol) [facility] Utilities Answer Date Recorded In the past 12 months has e electric, gas, oil, or water [employer] threatened to shut off services in your [...] place to sleep or slept in a jail (including now)? No 01/16/2024 Hunger Vital Sign [...] from the original note were not included. [facility] Note Reason for cardiology [...] [facility] which did not show definite perfusion defect [...] states that her blood pressure at the skilled nursing go sometimes up to 200s and sometimes itsend normal in the 130s. She used to smoke half pack per day for about 10 years however she quit in the . Regarding family history her father secondary to DC at age 74 and her mother secondary tostroke in her 70s. ROS: All systems were reviewed and they were negative except for the positive findings noted above in the history Past Medical History She has a past medical history of Anemia, Anxiety, Arthritis, Chronic kidney disease, Closed fracture of neck of femur ([facility]) (06/16/2020), COVID-19 (07/04/2023), Dysphagia, Epilepsy ([facility]), GERD (gastroesophageal reflux disease), Hyperlipidemia, Hypertension, Major depressive disorder, Osteoa rthritis, Peripheral vascular disease, Rectal prolapse, Rhabdomyolysis (07/04/2023), Sepsis ([facility]) (07/04/2023), Tardive dyskinesia, and Tremor. Surgical [...] leads Lexiscan Nuclear stress test 08/26/2023 at [facility] Baseline ECG indicates sinus rhythm and non-specific [...] risk. Clinical correlation recommended. Echo 12/23/2020 at [facility] Left Ventricle: There is moderate increased [...] for about 3 weeks and let the skilled nursing update us after that if her muscular pain has improved, if so we will consider other statin probably small dose of Crestor Continue low salt low fat diet Follow-up in 6 months Marline Sandoval MD,FACC documented in this encounter Plan of Treatment Not on file documented as of this encounter Visit Diagnoses Diagnosis Generalized muscle ache- Primary Coronary artery disease involving hoopa coronary artery of hoopa heart without angina pectoris Primary hypertension Unspecified essential hypertension Pure hypercholesterolemia documented in this encounter Care Teams Relay Operator Relationship Specialty Start Date End Date Alexey Connor DO PCP - General Family Medicine 04/04/23 documented as of this encounter
--- NOTE | 2025-01-29 | XR_ITS ---
The [address] [address] Patient Name: PATTY ROSE MRN: [id number] date: 1955 Sex: F Assigned Patient Location: ER Current Patient Location: ED.MAIN Accession/Order Number: [id number] Exam Date: 01/29/2025 14:40 Report Date: 01/29/2025 15:12 At the request of: HALLIE CRAWLEY MD Procedure: XR elbow RT 2V XR elbow RT 2V 01/29/2025 2:51 PM SIGNS AND SYMPTOMS: ^FALL, RIGHT ARM PAIN PROTOCOL: Frontal radiograph of the right elbow COMPARISON: None FINDINGS: No radiographic evidence of fracture or dislocation. There is soft tissue swelling medially along the distal humerus, elbow, and proximal forearm. XR/XR elbow RT 2V IMPRESSION: No radiographic evidence of fracture or dislocation. There is soft tissue swelling medially along the distal humerus, elbow, and proximal forearm. Impression dictated by: Brown Bettencourt M.D. 01/29/2025 3:12 PM Dictation Location: [place] [address] Electronically authenticated by: [id number] Y Date: 01/29/2025 15:12
--- NOTE | 2025-01-29 | XR_ITS ---
The [address] [address] Patient Name: PATTY ROSE MRN: [id number] date: 1955 Sex: F Assigned Patient Location: ER Current Patient Location: ED.MAIN Accession/Order Number: [id number] Exam Date: 01/29/2025 14:40 Report Date: 01/29/2025 15:11 At the request of: HALLIE CRAWLEY MD Procedure: XR shoulder RT min 2V XR shoulder RT min 2V 01/29/2025 2:51 PM SIGNS AND SYMPTOMS: FALL, RIGHT SHOULDER PAIN PROTOCOL: 2 views of the right shoulder COMPARISON: 06/04/2022 FINDINGS: There is a periprosthetic fracture along the humeral component of the right shoulder arthroplasty hardware. The bony components is also detached from the glenoid with fracture of the screws. A retained fragment is noted along the superior aspect of the glenoid. Remote posttraumatic deformities noted of the right chest wall. XR/XR shoulder RT min 2V IMPRESSION: There is a periprosthetic fracture along the humeral component of the right shoulder arthroplasty hardware. The bony components is also detached from the glenoid with fracture of the screws. A retained fragment is noted along the superior aspect of the glenoid. Impression dictated by: Brown Bettencourt M.D. 01/29/2025 3:11 PM Dictation Location: [place] [address] Electronically authenticated by: [id number] Y Date: 01/29/2025 15:11
[2025-01-29 14:37] VITALS: BP 142/107; PULSE 88; TEMP 36.7; O2SAT 92; BMI 17.7
--- OUTSIDE RECORDS SUMMARY | 2025-01-29 14:41 | XMS_ITS | Encounter Summary ---
Author Organization [facility] Sys tem Address [facility] [id number] [address] [place] [address] Care Team Providers Care Gang Supervisor Name Role Phone Alexey Connor Primary Care Provider + [phone] Encounter Details Date Type Department Care Team (Late st Contact Info) Description 10/25/2023 Orders Only [facility] Internal Medicine - Family Medicine [address] [place] [address] Ref Prov, [place] [address] Social History Tobacco Use Types Packs/Day Years [...] Problems Recent Progress Patient-Stated? Author go to [place] for therapy General Yes Ronit Sorensen LSW Note: Evaluation of progress towards goal: will DC from ED to SNF upon arrangements Long-Term Goals General Yes Amparo Nix LSW Note: Evaluation of progress towards goal: return to [facility] documented as of this encounter Procedures [...] on filedocumented in this encounter Care Teams Gang Supervisor Relationship Specialty Start Date End Date Alexey Connor DO [address] [place] [address] PCP - General Family Medicine 03/27/22 documented as of this encounter
--- OUTSIDE RECORDS SUMMARY | 2025-01-29 14:41 | XMS_ITS | Encounter Summary ---
Author Organization [facility] tem Address [facility] [id number] [address] [place] [address] Care Team Providers Care Lawn Care Specialist Name Role Phone Alexey Connor DO Primary Care Provider [phone] Encounter Details Date Type Department Care Team (Late st Contact Info) Description 01/29/2024 Orders Only [facility] Internal Medicine - Family Medicine [address] [place] [address] Alexey Connor DO [address], [facility] [place], [place] [id number] Social History Tobacco Use Types Packs/Day Years [...] Problems Recent Progress Patient-Stated? Author go to [place] for therapy General Yes Ronit Sorensen LSW [...] ORDERABLE S Final Result Performing Organization Address City/State/[facility] Co de Phone Number MANUALLY TRANSCRIBED RESULTS documented in this encounter Visit Diagnoses Not on filedocumented in this encounter Care Teams Lawn Care Specialist Relationship Specialty Start Date End Date Alexey Connor DO [address], [facility] [place] [address] PCP - General Family Medicine 03/27/22 documented as of this encounter
--- OUTSIDE RECORDS SUMMARY | 2025-01-29 14:41 | XMS_ITS | Encounter Summary ---
Author Organization [facility] Address [address] [place] [address] Phone Care Team Providers Care Marketing Project Lead Name Role Phone Alexey Connor DO Primary Care Provider Encounter Details Date Type Department Care Team (Late st Contact Info) Description 06/29/2020 Orders Only [facility] [address] [place] [address] Conversion, Onbase Social History Tobacco Use Types [...] on filedocumented in this encounter Care Teams Marketing Project Lead Relationship Specialty Start Date End Date Alexey Connor DO PCP - General 04/15/99 documented as of this encounter
--- OUTSIDE RECORDS SUMMARY | 2025-01-29 14:41 | XMS_ITS | Encounter Summary ---
Author Organization [facility] Address [address] [place] [address] Phone Care Team Providers Care Senior Back End Java Developer Name Role Phone Alexey Connor DO Primary Care Provider Encounter Details Date Type Department Care Team (Late st Contact Info) Description 07/03/[address] [facility] [address] [place] [address] Conversion, Onbase Social History Tobacco Use Types [...] filedocumented in this encounter Care Teams Senior Back End Java Developer Relationship Specialty Start Date End Date Alexey Connor DO PCP - General 04/15/99 documented as of this encounter
--- OUTSIDE RECORDS SUMMARY | 2025-01-29 14:41 | XMS_ITS | Encounter Summary ---
Author Organization [facility] Address [address] [place] [address] Phone Care Team Providers Care Cyber Security Architect Name Role Phone Alexey Connor DO Primary Care Provider Encounter Details Date Type Department Care Team (Late st Contact Info) Description 07/05/2020 Orders Only [facility] [address] [place] [address] Conversion, Onbase Social History Tobacco Use Types [...] on filedocumented in this encounter Care Teams Cyber Security Architect Relationship Specialty Start Date End Date Alexey Connor DO PCP - General 04/15/99 documented as of this encounter
--- OUTSIDE RECORDS SUMMARY | 2025-01-29 14:41 | XMS_ITS | Encounter Summary ---
Author Organization [facility] Sys tem Address [facility] [id number] [address] [place] [address] Care Team Providers Care Manager Urgent Care Name Role Phone Alexey Connor Primary Care Provider + [phone] Encounter Details Date Type Department Care Team (Late st Contact Info) Description 12/25/2023 Orders Only [facility] Internal Medicine - Family Medicine [address] [place] [address] Ref Prov, [place] [address] Social History Tobacco Use Types Packs/Day Years [...] Problems Recent Progress Patient-Stated? Author go to [place] for therapy General Yes Ronit Sorensen LSW Note: Evaluation of progress towards goal: will DC from ED to SNF upon arrangements Long-Term Goals General Yes Amparo Nix LSW Note: Evaluation of progress towards goal: return to [facility] documented as of this encounter Procedures Procedure [...] on filedocumented in this encounter Care Teams Manager Urgent Care Relationship Specialty Start Date End Date Alexey Connor DO [address], [place] [address] PCP - General Family Medicine 03/27/22 documented as of this encounter
--- OUTSIDE RECORDS SUMMARY | 2025-01-29 14:41 | XMS_ITS | Encounter Summary ---
Author Organization [facility] Sys tem Address [facility] [id number] [address] [place] [address] Care Team Providers Care Counsel Name Role Phone Alexey Connor DO Primary Care Provider [phone] Encounter Details Date Type Department Care Team (Late st Contact Info) Description 01/31/2024 Orders Only [facility] Internal Medicine - Family Medicine [address] [place] [address] Alexey Connor DO [address], [facility] [place], [place] [id number] Social History Tobacco Use Types Packs/Day Years [...] Problems Recent Progress Patient-Stated? Author go to [place] for therapy General Yes Ronit Sorensen LSW Note: Evaluation of progress towards goal: will DC from ED to SNF upon arrangements Long-Term Goals General Yes Amparo Nix LSW Note: Evaluation of progress towards goal: return to [facility] documented as of this encounter Visit Diagnoses Not on filedocumented in this encounter Care Teams Counsel Relationship Specialty Start Date End Date Alexey Connor DO [address], [facility] [place] [address] PCP - General Family Medicine 03/27/22 documented as of this encounter
--- OUTSIDE RECORDS SUMMARY | 2025-01-29 14:42 | XMS_ITS | Encounter Summary ---
Author Organization [facility] Address [facility] [id number] [address] [place] [address] Care Team Providers Care Book Mender Name Role Phone Alexey Connor Primary Care Provider + [phone] Encounter Details Date Type Department Care Team (Late st Contact Info) Description 05/31/2023 [facility]phone [facility] [address] [place] [address] Mirza, Janina, TRAVELING CLERK Social History Tobacco Use Types Packs/Day Years [...] Problems Recent Progress Patient-Stated? Author go to [place] for therapy General Yes Ronit Sorensen LSW Note: Evaluation of progress towards goal: will DC from ED to SNF upon arrangements Long-Term Goals General Yes Amparo Nix LSW Note: Evaluation of progress towards goal: return to [facility] documented as of this encounter Visit Diagnoses Not on filedocumented in this encounter Care Teams Book Mender Relationship Specialty Start Date End Date Alexey Connor DO [address] [facility], [place] [address] PCP - General Family Medicine 03/27/22 documented as of this encounter
--- OUTSIDE RECORDS SUMMARY | 2025-01-29 14:42 | XMS_ITS | Encounter Summary ---
Author Organization [facility] Address [address] [place] [address] Care Team Providers Care Admissions Consultant Name Role Phone Esteban Slater MD Primary Care Provider [phone] Source Comments In the event this information is protected by the Federal Confidentiality of Alcohol and Drug AbusePatient Records regulations: The Federal rules restrict any use of the information to criminally investigate or prosecute any alcohol or drug abuse patient.[facility] Encounter Details Date Type Department Care Team (Late st Contact Info) Description 12/17/2023 Patient Msg [address] [place] [address] [place] [id number] Provider, [facility] Virtual Shared Medical Appointment [facility] - December 2023 Social History Tobacco Use [...] is lower risk 8 05/14/2023 Data from: https://www.neighborhoodatlas.medicine.[facility].edu/. Last address used for calculation [address] [facility] 05/14/2023 Comments No Sex and Gender Information Value Date Recorded Sex Assigned at Not on file Legal Sex Female 9:36 AM EST Gender Identity Not on file Sexual Orientation Not on file documented as of this encounter Plan of Treatment Not on file documented as of this encounter Visit Diagnoses Not on filedocumented in this encounter Care Teams Admissions Consultant Relationship Specialty Start Date End Date Esteban Slater MD [address] [place] [address] PCP - General Family Medicine 07/21/18 documented as of this encounter
--- OUTSIDE RECORDS SUMMARY | 2025-01-29 14:42 | XMS_ITS ---
Author Organization [facility] Care Team Providers Care Car Wiper Name Role Phone Tomeka Claros Unavailable Unavailable Nikolas Alexey Unavailable Unavailable [place] MarinaJaneth felder Unavailable Unavailable Allergies and adverse reactions Code CodeSystem Substance Reaction Severity StartDate Concern Status 4053 RXNORM Erythromycin Unknown 01/12/2021 active Care Team Name Role Address Phone Organization Dates Alexey Connor PCP [address] [place], [address], [place] (Office): : : [facility] 12/10/2023 - present Tomeka Claros [address] [facility] [address], [place], [address], [place] (Office): [facility] 12/10/2023 - present Janeth Brandt [facility] [address] [place], [address], [place] (Office): [facility] 12/10/2023 - present Imaging Narrative Note Date Imaging Narrative No te 01/29/2025 SIGNIFICANT FINDINGS RIGHT HUMERUS X-Ray - 2 OR MORE VIEWS:.Exam: Right humerus.History: Pain.See NoteAn orthopedic device replaces the right shoulder joint. Acute fracture through the proximal right humerus is noted with medial displacement and angulation noted. No distal humeral fracture is identified..IMPRESSION:Orthopedic device replaces the right shoulder joint.Acute angulated fracture through the proximal right humerus...Electronically Signed By: Dr. Taurus Waters M.D. 01/29/2025 See Attachment 01/29/2025 SIGNIFICANT FINDINGS RIGHT SHOULDER X-Ray Complete 2 or more views:.Exam: Right shoulder.History: Increase in pain and immobility for 1 week.Fall 2 weeks ago.The examination is compared to study dated March 23, 2024.See NoteAn orthopedic device replaces the shoulder joint. Acute comminuted fracture with marked medial angulation and displacement is noted in the proximal humerus. 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 Taurus Waters M.D. 01/25/2025 SIGNIFICANT FINDINGS KUB X-Ray Kidney, Ureter, Bladder:.Exam: KUB.History: Abdominal pain and discomfort for 2 days.No BM for 2 days.Dilated loops of large bowel are identified with a mild amount of retained fecal material. No organomegaly is seen. No renal or biliary calcifications are noted..IMPRESSION:Mild amount of retained fecal material.Mild colonic ileus. Follow-up is recommended...Electronically Signed By: Dr. Taurus Waters M.D. 01/25/2025 See Attachment Encounters Encounter Type Code Code System Description Performer Discharge Disposition Service Delivery Location Date Ambulatory Encounter CPT Code = [id number] Leukocytosis [facility] Address: [address] [place] [address], [address] [place] [address]. 01/12 Ambulatory Encounter CPT Code = [id number] Mechanical complication of internal [facility] Address: [address] [place] [address], [address] [place] [address]. 01/12 Ambulatory Encounter CPT Code = 49132 R41.841 ICD 10 COGNITIVE COMMUNICATION DEFICIT KathrynWagner [facility] Address: [address] [place] [address], [address] [place] [address]. 01/12 Ambulatory Encounter CPT Code = [id number] Osteonecrosis of hip KathrynWagner [facility] Address: [address] [place] [address], [address] [place] [address]. 01/12 Ambulatory Encounter CPT Code = [id number] COVID-19 KathrynWagner [facility] Address: [address] [place] [address], [address] [place] [address]. 01/12 Ambulatory Encounter CPT Code = [id number] Mild protein-calorie malnutrition (weight for age 75-89 percent of standard) KathrynWagner [facility] Address: [address] [place] [address], [address] [place] [address]. 01/12 Ambulatory Encounter CPT Code = 08684 M19.011 ICD 10 PRIMARY OSTEOARTHRITIS, RIGHT SHOULDER KathrynWagner [facility] Address: [address] [place] [address], [address] [place] [address]. 01/12 Ambulatory Encounter CPT Code = [id number] Muscle weakness KathrynWagner [facility] Address: [address] [place] [address], [address] [place] [address]. 01/12 Ambulatory Encounter CPT Code = [id number] Abnormal gait KathrynWagner [facility] Address: [address] [place] [address], [address] [place] [address]. 01/12 Ambulatory Encounter CPT Code = [id number] Atherosclerosis of artery of lower limb KathrynWagner [facility] Address: [address] [place] [address], [address] [place] [address]. 01/12 Ambulatory Encounter CPT Code = 42327 R26.89 ICD 10 OTHER ABNORMALITIES OF GAIT AND MOBILITY KathrynWagner [facility] Address: [address] [place] [address], [address] [place] [address]. 01/12 Ambulatory Encounter CPT Code = [id number] Fibromyalgia KathrynWagner [facility] Address: [address] [place] [address], [address] [place] [address]. 01/12 Ambulatory Encounter CPT Code = 08563 M62.81 ICD 10 MUSCLE WEAKNESS (GENERALIZED) KathrynWagner [facility] Address: [address] [place] [address], [address] [place] [address]. 01/12 Ambulatory Encounter CPT Code = [id number] Chronic kidney disease KathrynWagner [facility] Address: [address] [place] [address], [address] [place] [address]. 01/12 Ambulatory Encounter CPT Code = [id number] Urinary tract obstruction KathrynWagner [facility] Address: [address] [place] [address], [address] [place] [address]. 01/12 Ambulatory Encounter CPT Code = [id number] Constipation KathrynWagner [facility] Address: [address] [place] [address], [address] [place] [address]. 01/12 Ambulatory Encounter CPT Code = [id number] Central sleep apnea syndrome KathrynWagner [facility] Address: [address] [place] [address], [address] [place] [address]. 01/12 Ambulatory Encounter CPT Code = [id number] Osteoarthritis of knee KathrynWagner [facility] Address: [address] [place] [address], [address] [place] [address]. 01/12 Ambulatory Encounter CPT Code = [id number] Hypokalemia KathrynWagner [facility] Address: [address] [place] [address], [address] [place] [address]. 01/12 Ambulatory Encounter CPT Code = [id number] Subacute dyskinesia caused by drug KathrynWagner [facility] Address: [address] [place] [address], [address] [place] [address]. 01/12 Ambulatory Encounter CPT Code = [id number] Prosthetic arthroplasty of shoulder KathrynWagner [facility] Address: [address] [place] [address], [address] [place] [address]. 01/12 Ambulatory Encounter CPT Code = [id number] Localized, primary osteoarthritis of the shoulder region KathrynWagner [facility] Address: [address] [place] [address], [address] [place] [address]. 01/12 Ambulatory Encounter CPT Code = [id number] COVID-19 KathrynWagner [facility] Address: [address] [place] [address], [address] [place] [address]. 01/12 Ambulatory Encounter CPT Code = [id number] Prosthetic arthroplasty of hip KathrynWagner [facility] Address: [address] [place] [address], [address] [place] [address]. 01/12 Ambulatory Encounter CPT Code = [id number] Osteoarthritis of hip KathrynWagner [facility] Address: [address] [place] [address], [address] [place] [address]. 01/12 Ambulatory Encounter CPT Code = [id number] Attention to prosthetic replacement of articulation of bone KathrynWagner [facility] Address: [address] [place] [address], [address] [place] [address]. 01/12 Ambulatory Encounter CPT Code = [id number] Iron deficiency anemia KathrynWagner [facility] Address: [address] [place] [address], [address] [place] [address]. 01/12 Ambulatory Encounter CPT Code = 80126 Z96.642 ICD 10 PRESENCE OF LEFT ARTIFICIAL HIP JOINT KathrynWagner [facility] Address: [address] [place] [address], [address] [place] [address]. 01/12 Ambulatory Encounter CPT Code = [id number] Body mass index less than 20 KathrynWagner [facility] Address: [address] [place] [address], [address] [place] [address]. 01/12 Ambulatory Encounter CPT Code = [id number] Peripheral vascular disease KathrynWagner [facility] Address: [address] [place] [address], [address] [place] [address]. 01/12 Ambulatory Encounter CPT Code = [id number] Allergic rhinitis KathrynWagner [facility] Address: [address] [place] [address], [address] [place] [address]. 01/12 Ambulatory Encounter CPT Code = [id number] Restless legs KathrynWagner [facility] Address: [address] [place] [address], [address] [place] [address]. 01/12 Ambulatory Encounter CPT Code = 24850 R13.11 ICD 10 DYSPHAGIA, ORAL PHASE KathrynWagner [facility] Address: [address] [place] [address], [address] [place] [address]. 01/12 Ambulatory Encounter CPT Code = [id number] COVID-19 KathrynWagner [facility] Address: [address] [place] [address], [address] [place] [address]. 01/12 Ambulatory Encounter CPT Code = 65925 Z51.89 ICD 10 ENCOUNTER FOR OTHER SPECIFIED AFTERCARE KathrynWagner [facility] Address: [address] [place] [address], [address] [place] [address]. 01/12 Ambulatory Encounter CPT Code = 51765 Z96.611 ICD 10 PRESENCE OF RIGHT ARTIFICIAL SHOULDER JOINT KathrynWagner [facility] Address: [address] [place] [address], [address] [place] [address]. 01/12 Ambulatory Encounter CPT Code = [id number] Osteoarthritis KathrynWagner [facility] Address: [address] [place] [address], [address] [place] [address]. 01/12 Ambulatory Encounter CPT Code = 30312 R48.8 ICD 10 OTHER SYMBOLIC DYSFUNCTIONS KathrynWagner [facility] Address: [address] [place] [address], [address] [place] [address]. 01/12 Ambulatory Encounter CPT Code = 08896 M62.81 ICD 10 MUSCLE WEAKNESS (GENERALIZED) KathrynWagner [facility] Address: [address] [place] [address], [address] [place] [address]. 01/12 Ambulatory Encounter CPT Code = 27627 R26.89 ICD 10 OTHER ABNORMALITIES OF GAIT AND MOBILITY KathrynWagner [facility] Address: [address] [place] [address], [address] [place] [address]. 01/12 Ambulatory Encounter CPT Code = 16640 R27.9 ICD 10 UNSPECIFIED LACK OF COORDINATION KathrynWagner [facility] Address: [address] [place] [address], [address] [place] [address]. 01/12 Ambulatory Encounter CPT Code = [id number] Rectal prolapse KathrynWagner [facility] Address: [address] [place] [address], [address] [place] [address]. 01/12 Ambulatory Encounter CPT Code = [id number] Anemia KathrynWagner [facility] Address: [address] [place] [address], [address] [place] [address]. 01/12 Ambulatory Encounter CPT Code = [id number] Syndrome of inappropriate vasopressin secretion KathrynWagner [facility] Address: [address] [place] [address], [address] [place] [address]. 01/12 Ambulatory Encounter CPT Code = [id number] Essential hypertension [facility] Address: [address] [place] [address], [address] [place] [address]. 01/12 Ambulatory Encounter CPT Code = [id number] Anxiety disorder KathrynWagner [facility] Address: [address] [place] [address], [address] [place] [address]. 01/12 Ambulatory Encounter CPT Code = [id number] Hypothyroidism KathrynWagner [facility] Address: [address] [place] [address], [address] [place] [address]. 01/12 Ambulatory Encounter CPT Code = [id number] Hyperlipidemia KathrynWagner [facility] Address: [address] [place] [address], [address] [place] [address]. 01/12 Ambulatory Encounter CPT Code = [id number] Gastroesophageal reflux disease without esophagitis KathrynWagner [facility] Address: [address] [place] [address], [address] [place] [address]. 01/12 Ambulatory Encounter CPT Code = 19692 E87.1 ICD 10 HYPO-OSMOLALITY AND HYPONATREMIA KathrynWagner [facility] Address: [address] [place] [address], [address] [place] [address]. 01/12 Ambulatory Encounter CPT Code = [id number] Chronic pain KathrynWagner [facility] Address: [address] [place] [address], [address] [place] [address]. 01/12 Ambulatory Encounter CPT Code = [id number] Chronic idiopathic constipation KathrynWagner [facility] Address: [address] [place] [address], [address] [place] [address]. 01/12 Ambulatory Encounter CPT Code = [id number] Major depression, single episode KathrynWagner [facility] Address: [address] [place] [address], [address] [place] [address]. 01/12 Ambulatory Encounter CPT Code = [id number] Movement disorder KathrynWagner [facility] Address: [address] [place] [address], [address] [place] [address]. 01/12 Ambulatory Encounter CPT Code = [id number] Epilepsy KatToneyer [facility] Address: [address] [place] [address], [id number] 01/12 Ambulatory Encounter CPT Code = [id number] Disorder of bone [facility] Address: [address] [place] [address], [id number] [place] [address]. 01/12 Goals Section Goals Description Status Target Date (resident name) will be free from signs of infection and complications Active 03/18/2025 Kaitlynn need for services will be met while residing in nursing facility Active 03/18/2025 Kaitlynn will be free from adverse side effects Act grady 03/18/2025 Kaitlynn will be free from signs of abnormal bleedi ng Active 03/18/2025 Kaitlynn will participate in le aves of absences ([facility]) with family/friends and follow facility [facility] rules Active Kaitlynn will remain free from discomfort, complications or signs and symptoms related to gastro-intestinal alterations Active 07/2024 Melanie will Awaken refreshed and not be fatigued during day Active 03/18/2025 Melanie will be free from complications of altered endocrine status. Active 03/18/2025 Melanie will be free from complications of inconti nence Active 03/18/2025 Melanie will be free from injury from seizure acti vity Active 03/18/2025 Melanie will be free from symptoms of respiratory distress. Active 03/18/2025 Melanie will be free of infect ion, pain or bleeding in the oral cavity Active 03/18/2025 Melanie will be free of sympto ms of dehydration and maintain moist mucous membranes, good skin turgor. Active 03/18/2025 Melanie will demonstrate effective coping skills r elated to behavior Active 03/18/2025 Melanie will express satisfact ion with type of activities and level of activity involvement when asked through next review date. Active 03/18/2025 Melanie will have improved moo d state as evidenced by a decrease in frequency of mood symptoms Active 03/18/2025 Melanie will have no indications of acute eye prob lems. Active 03/18/2025 Melanie will have no indications of psychosocial w ell being problem Active 03/18/2025 Melanie will not exhibit significant weight change Active 03/18/2025 Melanie will pass soft, formed stool at the least every 3 days Active 03/18/2025 Melanie will remain free of signs of fluid overloa d Active 03/18/2025 Melanie will remain free of si gns/symptoms of complications related to anemia Active 03/18/2025 Melanie will successfully adjust to halfway resi dence at facility Active 03/18/2025 Melanie will verbalize adequate relief of pain Act grady 03/18/2025 Melanie will verbalize feelings related to emotion al state Active 03/18/2025 Melanie's preferences and advanced directives will be honored Active 03/18/2025 [place] decision regarding healthcare choices Acti ve 03/18/2025 Resident will be free from c omplications of medical conditions and be free from adverse effects of medications and treatments Active 03/18/2025 Resident will be free from skin breakdown Active 03/18/2025 Resident will have care needs met daily with ass istance of staff. Active 03/18/2025 Resident will have reduced r isk for falls and fall related injuries Active 03/18/2025 Staff Will Accommodate / Sup port Resident's Valued Activities in Care Routine as Able Active 03/18/2025 The resident will be free fr om complications and symptoms of cardiac dysfunction Active 03/18/2025 The resident will remain rito e of complications related to immobility, including contractures, thrombus formation, skin-breakdown, fall related injury. Active 03/18/2025 Tissue injury will heal and be free from complic ations. Active 03/18/2025 Functional Status Code Name Recorded Time Value Entered By Bathing 01/29/2025 Total Dependence Patricia an Chair/nja-le-tbhok transfer 01/29/2025 Dependent Timur Eating 01/29/2025 Partial/moderate assistance Timur Lying to sitting on side of bed 01/29/2025 Dependent Timur Oral hygiene 01/29/2025 Substantial/maxi mal assistance Timur Personal hygiene 01/29/2025 Dependent Patricia william Roll left and right 01/29/2025 Dependent Tigre beckford Shower/bathe self 01/29/2025 Dependent Juma silva Sit to lying 01/29/2025 Dependent Timur Sit to stand 01/29/2025 Dependent Timur Toilet transfer 01/29/2025 Dependent Magda shaw Toileting hygiene 01/29/2025 Dependent Juma silva Walk 10 feet 01/29/2025 Not assessed Timur Walk 150 feet 01/29/2025 Not assessed Timur Walk 50 feet 01/29/2025 Not assessed Timur Immunizations Immunization Status Vaccine Details Vaccine Code CodeSystem Date Notes Influenza completed Influenza, high-dose, split virus, quadrivalent, injectable, preservative free lotNumber: [id number] expiry: 10/12/2024 Mfg: seqires Given 0.5 ml Left Deltoid intramuscularly 197 CVX created date: 4 consent date: 4 administe red date: 4 Educated by May Mckeon on 01/09/2024 Influenza completed Influenza, high-dose, split virus, quadrivalent, injectable, preservative free lotNumber: [id number] expiry: 10/02/2023 Mfg: afluria Given 0.5 ml Right Deltoid intramuscularly 197 CVX created date: 3 consent date: 3 administe red date: 3 Influenza completed Influenza, high-dose, split virus, quadrivalent, injectable, preservative free lotNumber: [id number] expiry: 09/06/2022 Mfg: afluria quadrivalent Given 0.5 ml Left Deltoid intramuscularly 197 CVX created date: 2 consent date: 2 administe red date: 2 Influenza completed Influenza, high-dose, split virus, quadrivalent, injectable, preservative free lotNumber: [id number] expiry: 10/12/2021 Mfg: afluria Given 0.5 ml Left Deltoid intramuscularly 197 CVX created date: 2 consent date: 2 administe red date: 2 Educated by nataliia on 08/09/2021 Influenza completed Influenza, high-dose, split virus, quadrivalent, injectable, preservative free 197 CVX created date: 1 administe red date: 7 TB 1 Step Mantoux (PPD) completed tuberculin skin test; unspecified formulation 98 CVX created date: 2 administe red date: 1 TB 2 Step Mantoux Skin Test completed tuberculin skin test; unspecified formulation Step 1 of Multi-step 98 CVX created date: 2 administe red date: 1 SARS-COV-2 (COVID-19) completed SARS-COV-2 (COVID-19) vaccine, mRNA, spike protein, LNP, preservative free, 30 mcg/0.3mL dose Step 2 of Multi-step with next step required 208 CVX created date: 1 consent date: 1 administe red date: 1 SARS-COV-2 (COVID-19) completed SARS-COV-2 (COVID-19) vaccine, mRNA, spike protein, LNP, preservative free, 30 mcg/0.3mL dose Step 1 of Multi-step with next step required 208 CVX created date: 1 administe red date: 1 Prevnar 20 completed Pneumococcal conjugate vaccine 20-valent (PCV20), polysaccharide [id number] conjugate, adjuvant, preservative free lotNumber: [id number] expiry: 05/15/2025 [facility] Given 0.5 ml intramuscularly 216 CVX created date: 4 consent date: 4 administe red date: 4 Educated by May Mckeon on 01/09/2024 Given by DT12 RSVPreF3 Vac Recomb Adjuvanted Intramuscular Suspension completed Respiratory syncytial virus (RSV), vaccine, recombinant, protein subunit RSV prefusion F, adjuvant reconstituted, 0.5 mL, preservative free lotNumber: [id number] expiry: 02/17/2025 Mfg: arexvy Given 0.5 ml Left Deltoid intramuscularly 303 CVX created date: 4 consent date: 4 administe red date: 4 pneumococcal polysaccharide PPV23 completed pneumococcal polysaccharide vaccine, 23 valent Mfg: Pneumavav-23 Given 0.5 ml Left Deltoid intramuscularly 33 CVX created date: 3 consent date: 3 administe red date: 3 pneumococcal polysaccharide PPV23 cancelled pneumococcal polysaccharide vaccine, 23 valent 33 CVX created date: 2 consent date: 2 Educated by nataliia on 09/28/2021 SARS-COV-2 (COVID-19) Pfizer Booster completed SARS-COV-2 (COVID-19) vaccine, mRNA, spike protein, LNP, preservative free, 30 mcg/0.3mL dose lotNumber: [id number] expiry: 02/26/2022 Mfg: Pfizer [employer] Given 0.3 ml Right Deltoid intramuscularly 208 CVX created date: 2 consent date: 2 administe red date: 2 SARS-COV-2 (COVID-19) Pfizer Booster completed SARS-COV-2 (COVID-19) vaccine, mRNA, spike protein, LNP, preservative free, 30 mcg/0.3mL dose lotNumber: [id number] expiry: 07/05/2021 Mfg: Pfizer Given 0.25 Left Deltoid intramuscularly 208 CVX created date: 2 administe red date: 1 SARS-COV-2, COVID-19, (Pfizer (Cruz)) completed SARS-COV-2 (COVID-19) vaccine, mRNA, spike protein, LNP, preservative free, 30 mcg/0.3mL dose, haily-sucrose formulation lotNumber: [id number] expiry: 11/13/2022 Mfg: pfizer bival Given 0.3 ml Left Deltoid intramuscularly 217 CVX created date: 3 consent date: 3 administe red date: 3 Pfizer COVID-19 Vaccine [id number] Booster completed SARS-COV-2 (COVID-19) vaccine, mRNA, spike protein, LNP, preservative free, 30 mcg/0.3mL dose lotNumber: [id number] expiry: 10/01/2023 Mfg: Pfizer Given 0.3 ml Right Deltoid intramuscularly 208 CVX created date: 4 consent date: 4 administe red date: 4 Pfizer COVID-19 Vaccine Booster completed SARS-COV-2 (COVID-19) vaccine, mRNA, spike protein, LNP, preservative free, 30 mcg/0.3mL dose lotNumber: [id number] expiry: 04/14/2024 Mfg: Pfizer Given 0.3 ml Left Deltoid intramuscularly 208 CVX created date: 3 consent date: 3 administe red date: 3 [facility] (12+) completed SARS-COV-2 (COVID-19) vaccine, mRNA, spike protein, LNP, preservative free, haily-sucrose, 30 mcg/0.3 mL dose lotNumber: [id number] expiry: 08/08/2024 Mfg: Pfizer Given 0.3 ml Right Deltoid intramuscularly 309 CVX created date: 4 consent date: 4 administe red date: 4 [facility] (12+) completed SARS-COV-2 (COVID-19) vaccine, mRNA, spike protein, LNP, preservative free, haily-sucrose, 30 mcg/0.3 mL dose lotNumber: [id number] expiry: 08/08/2024 Mfg: [employer] Given 0.3 ml Right Deltoid intramuscularly 309 CVX created date: 4 consent date: 4 administe red date: 4 Educated by May Mckeon on 03/19/2024 Medications Section Medication Name Status Code CodeSystem Dose Route Frequency Admin Type Sig Text Start Date End Date Indication Sodium Chloride Tablet aborted 1 gram Oral one time a day Routin e Give 1 gram by mouth one time a day for Diet 01/27 Diet Imodium A-D Tablet 2 MG active 76756 3 RXNORM 1 table t Oral as needed PRN Give 1 table t by mouth every 6 hours as neede d for loose stool AND Give 2 table t by mouth every 6 hours as neede d for loose stool 2020 - loose stool 32449 3 RXNORM 2 table t Oral as needed PRN Give 1 table t by mouth every 6 hours as neede d for loose stool AND Give 2 table t by mouth every 6 hours as neede d for loose stool 2020 - loose stool Zofran Tablet 4 MG active 66035 5 RXNORM 1 table t Oral as needed PRN Give 1 table t by mouth every 4 hours as neede d for nause a/vom iting 2021 - nausea/vomi ting Fluticasone Propionate Suspension 50 MCG/ACT active 11991 07 RXNORM 1 spray Nasal one time a day Routin e 1 spray in each nostr il one time a day for aller gic rhini tis 2021 - allergic rhinitis Fosamax Tablet 70 MG active 48004 3 RXNORM 1 table t Oral one time a day Routin e Give 1 table t by mouth one time a day every Fri for osteo arthr itis 2021 - osteoarthri tis MiraLax Powder 17 GM/SCOOP active 25076 5 RXNORM 17 gram Oral as needed PRN Give 17 gram by mouth every 24 hours as neede d for const ipati on 2021 - constipatio n Biofreeze Gel 4 % active 49417 83 RXNORM n/a n/a Topica l as needed PRN Apply to Right shoul ok topic ally every 8 hours as neede d for shoul ok pain 2021 - shoulder pain Tylenol Extra Strength Tablet 500 MG active 82766 9 RXNORM 2 table t Oral as needed PRN Give 2 table t by mouth every 8 hours as neede d for Pain 2021 - Pain Gabapentin Tablet 600 MG active 59105 3 RXNORM 600 mg Oral at bedtime Routin e Give 600 mg by mouth at bedti me for restl ess leg syndr ome 2021 - restless leg syndrome Gabapentin Capsule 300 MG active 24118 1 RXNORM 300 mg Oral two times a day Routin e Give 300 mg by mouth two times a day for restl ess leg syndr ome 2021 - restless leg syndrome Calcium 600+D Tablet 600-400 MG-UNIT active 35958 2 RXNORM 2 table t Oral one time a day Routin e Give 2 table t orall y one time a day relat ed to OTHER SPECI FIED DISOR DERS OF BONE DENSI TY AND STRUC TURE, UNSPE CIFIE D SITE (M85. 80) 2021 - - Primidone Tablet 50 MG active 0 RXNORM 250 mg Oral one time a day Routin e Give 250 mg by mouth one time a day for seizu res AND Give 250 mg by mouth at bedti me for SEIZU RES 2021 - seizures 0 RXNORM 250 mg Oral at bedtime Routin e Give 250 mg by mouth one time a day for seizu res AND Give 250 mg by mouth at bedti me for SEIZU RES 2021 - SEIZURES Guaifenesin -DM Liquid 100-10 MG/5ML active 27373 44 RXNORM 10 mily liter Oral as needed PRN Give 10 mily liter by mouth every 6 hours as neede d for Cough 2022 - Cough TraZODone HCl Tablet 100 MG active 56087 3 RXNORM 2 table t Oral one time a day Routin e Give 2 table t by mouth one time a day for Insom estrella 200mg po daily at HS 2022 - Insomnia Protonix Tablet Delayed Release 40 MG active 11094 0 RXNORM 1 table t Oral one time a day Routin e Give 1 table t by mouth one time a day for GERD 2023 - GERD Mirtazapine Oral Tablet 15 MG aborted 23403 5 RXNORM 1 table t Oral at bedtime Routin e Give 1 table t by mouth at bedti me for insom estrella/a ppeti te 01/27 insomnia/ap petite carBAMazepi ne Oral Tablet 200 MG active 77707 9 RXNORM 1 table t Oral two times a day Routin e Give 1 table t by mouth two times a day for dyski nesia , chore a for 1 Week AND Give 1 table t by mouth three times a day for dyski nesia , chore a 11/19 dyskinesia, chorea 06642 9 RXNORM 1 table t Oral three times a day Routin e Give 1 table t by mouth two times a day for dyski nesia , chore a for 1 Week AND Give 1 table t by mouth three times a day for dyski nesia , chore a 2023 - dyskinesia, chorea clonazePAM Oral Tablet 1 MG active 8 RXNORM 1 table t Oral three times a day Routin e Give 1 table t by mouth three times a day for anxie ty give with 0.5MG to equal 1.5MG 2023 - anxiety clonazePAM Oral Tablet 0.5 MG active 7 RXNORM 0.5 mg Oral three times a day Routin e Give 0.5 mg by mouth three times a day for anxie ty give with 1 mg to equal 1.5MG 2023 - anxiety amLODIPine Besylate Oral Tablet 10 MG active 17645 5 RXNORM 1 table t Oral one time a day Routin e Give 1 table t by mouth one time a day for htn Hold if SBP<1 20 or DBP <50 2023 - htn Atorvastati n Calcium Tablet 40 MG aborted 51529 1 RXNORM 40 mg Oral at bedtime Routin e Give 40 mg by mouth at bedti co for HLD 01/08 HLD Levothyroxi ne Sodium Oral Tablet 75 MCG active 48172 2 RXNORM 1 table t Oral in the morning Routin e Give 1 table t by mouth in the [facility] for hypot hyroi dism 2023 - hypothyroid ism Aspirin 81 Oral Tablet Delayed Release active 1 table t Oral one time a day Routin e Give 1 table t by mouth one time a day for cardi o 2023 - cardio Metoprolol Succinate ER Oral Tablet Extended Release 24 Hour 50 MG aborted 63665 6 RXNORM 1 table t Oral in the morning Routin e Give 1 [facility] 01/14 htn Metoprolol Succinate ER Oral Tablet Extended Release 24 Hour 25 MG aborted 58261 7 RXNORM 1 table t Oral one time a day Routin e Give 1 table t by mouth one time a day for HTN Give with 50mg for total of 75mg 01/14 HTN Ferrous Sulfate Oral Tablet 325 (65 Fe) MG active 52480 5 RXNORM 1 table t Oral one time a day Routin e Give 1 table t by mouth one time a day for suppl sol 2024 - supplement Austedo XR Oral Tablet Extended Release 24 Hour 36 MG active 67458 91 RXNORM 1 table t Oral one time a day Routin e Give 1 table t by mouth one time a day for Tardi ve Dyski nesia 2024 - Tardive Dyskinesia Imitrex Oral Tablet 25 MG active 42388 0 RXNORM 1 table t Oral as needed PRN Give 1 table t by mouth every 2 hours as neede d for migra ine If first tab ineff ectiv e, must wait at least 2 hours then repea t x1. DO NOT EXCEE D 100mg (4 tabs) /24 hours . Attem pt non-p harm inter venti ons first inclu ding cool rag, turn tv/li ghts off, etc. 2024 - migraine busPIRone HCl Oral Tablet 10 MG active 92281 3 RXNORM 10 mg Oral two times a day Routin e Give 10 mg by mouth two times a day 2024 - - Atorvastati n Calcium Oral Tablet 20 MG aborted 82473 0 RXNORM 3 table t Oral at bedtime Routin e Give 3 table t by mouth at bedti me for for HLD Give 60 mg at bedti me pr DR Sam edmond 01/22 for HLD Metoprolol Succinate ER Oral Tablet Extended Release 24 Hour 25 MG active 66030 7 RXNORM 1 table t Oral one time a day Routin e Give 1 table t by mouth one time a day for HTN Give with 50mg for total of 75mg, HOLD for SBP less than 110 or pulse less than 60 2024 - HTN Metoprolol Succinate ER Oral Tablet Extended Release 24 Hour 50 MG active 82813 6 RXNORM 1 table t Oral in the morning Routin e Give 1 table t by mouth in the morni ng for htn HOLD for SBP less than 110 and pulse less than 60 2024 - htn Pyridium Oral Tablet 100 [place] [address] 09 RXNORM 1 table t Oral three times a day Routin e Give 1 table t by mouth three times a day for dysur ia for 2 Days 01/27 dysuria Milk of Magnesia Oral Suspension complet ed 30 ml Oral one time only One Time Only Give 30 ml by mouth one time only for KUB shows mild retai roosevelt fecal mater ial for 1 Day 01/26 KUB shows mild retained fecal material Normal Saline Flush Intravenous Solution 0.9 % complet ed 100 ml/hr Intrav enous one time only One Time Only Use 100 ml/hr intra venou sly one time only for colon ic ileus , decre ased fluid intak e for 1 Day NS at 100ml /hr x 1 liter AND Use 100 ml/hr intra venou sly one time only for colon ic ileus , decre ased fluid intak e1 for 1 Day NS at 100ml /hr x 1 liter - stop once compl eted 01/26 colonic ileus, decreased fluid intake 100 ml/hr Intrav enous one time only One Time Only Use 100 ml/hr intra venou sly one time only for colon ic ileus , decre ased fluid intak e for 1 Day NS at 100ml /hr x 1 liter AND Use 100 ml/hr intra venou sly one time only for colon ic ileus , decre ased fluid intak e1 for 1 Day NS at 100ml /hr x 1 liter - stop once compl eted 01/26 colonic ileus, decreased fluid intake1 Rocephin Solution Reconstitut ed complet ed 1 gram Intram uscula r one time only One Time Only Injec t 1 gram intra muscu larly one time only for incre ased WBC for 1 Day 01/26 increased WBC Dulcolax Rectal Suppository 10 [place] [address] 1 RXNORM 1 suppo sitor y Rectal one time only One Time Only Inser t 1 suppo sitor y recta lly one time only for const ipati on for 1 Day 01/27 constipatio n Colace Oral Capsule 100 MG active 58777 56 RXNORM 1 capsu le Oral one time a day Routin e Give 1 capsu le by mouth one time a day for stool softe ner 2024 - stool softener Sodium Chloride Tablet aborted 1 gram Oral two times a day Routin e Give 1 gram by mouth two times a day for Diet 01/28 Diet Mirtazapine Tablet 7.5 MG active 85024 9 RXNORM 1 table t Oral at bedtime Routin e Give 1 table t by mouth at bedti me for Antid epres ad 2024 - Antidepress ant Sodium Chloride Tablet active 1 gram Oral two times a day Routin e Give 1 gram by mouth two times a day for hypon atrem ia 2024 - hyponatremi a Milk of Magnesia Oral Suspension active 30 ml Oral as needed PRN Give 30 ml by mouth as neede d for const ipati on AND Give 30 ml by mouth one time only for const ipati on for 1 Day per [facility] give with R/S bisco dyl 2024 - constipatio n 30 ml Oral one time only One Time Only Give 30 ml by mouth as neede d for const ipati on AND Give 30 ml by mouth one time only for const ipati on for 1 Day per optum give with R/S bisco dyl 01/30 constipatio n Dulcolax Suppository 10 MG active 41996 1 RXNORM 1 suppo sitor y Rectal as needed PRN Inser t 1 suppo sitor y recta lly as neede d for Const ipati on IF NO RESUL T FROM MILK OF MAGNE JULIAN, ADMIN ISTER DULCO LAX SUPPO SITOR Y RECTA LLY AT BEDTI ME FOR CONST IPATI ON AND Inser t 1 suppo sitor y recta lly one time only for const ipati on for 1 Day give with mom now for const ipati on per [facility] 2024 - [place] n 88476 1 RXNORM 1 suppo sitor y Rectal one time only One Time Only Inser t 1 suppo sitor y recta lly as neede d for Const ipati on IF NO RESUL T FROM MILK OF MAGNE JULIAN, ADMIN ISTER DULCO LAX SUPPO SITOR Y RECTA LLY AT BEDTI ME FOR CONST IPATI ON AND Inser t 1 suppo sitor y recta lly one time only for const ipati on for 1 Day give with mom now for const ipati on per [facility] 01/30 constipatio n Mental Status Section Date Assessment Total Score Description 12/23/2024 BIMS 15 cognitively int act CAM 0 No delirium ind icated PHQ-9 10 moderate depres roderick 09/25/2024 BIMS 15 cognitively int act CAM 0 No delirium ind icated PHQ-9 02 minimal depress ion Insurance Providers Plan of Treatment Section Lab Tests Test Code Code System Name Date BASIC MET PNL INCL GFR (BMP) 01/29/2025 CBC W/DIFF 01/29/2025 01/24/2025 01/25/2025 Interventions Intervention Code Code System Display Name Proposed D ate Problems Problem # Description Date of onset Resolved Date Code CodeSystem Concern Status 1 OBSTRUCTIVE AND REFLUX UROPATHY, UNSPECIFIED 01/30/[address] active 2 CONSTIPATION, UNSPECIFIED 01/28/[address] active 3 ELEVATED WHITE BLOOD CELL COUNT, UNSPECIFIED 01/26/[address] active 4 HYPOKALEMIA 07/03/[address] active 5 SLEEP APNEA, UNSPECIFIED 07/03/[address] active 6 UNILATERAL PRIMARY OSTEOARTHRITIS, RIGHT KNEE 07/03/[address] active 7 DRUG INDUCED SUBACUTE DYSKINESIA 06/12/[address] active 8 MUSCLE WEAKNESS (GENERALIZED) 02/14/20 24 12/24/[address] completed 9 OTHER ABNORMALITIES OF GAIT AND MOBILITY 02/14/20 24 12/24/[address] completed 10 BREAKDOWN (MECHANICAL) OF OTHER INTERNAL ORTHOPEDIC DEVICES, IMPLANTS AND GRAFTS, SUBSEQUENT ENCOUNTER 02/13/[address] active 11 PRESENCE OF RIGHT ARTIFICIAL SHOULDER JOINT 02/13/[address] active 12 PRIMARY OSTEOARTHRITIS, RIGHT SHOULDER 02/13/[address] active 13 COVID-19 12/23/19 24 01/14/[address] completed 14 AFTERCARE FOLLOWING JOINT REPLACEMENT SURGERY 12/10/[address] active 15 IDIOPATHIC ASEPTIC NECROSIS OF LEFT FEMUR 12/10/[address] active 16 PRESENCE OF LEFT ARTIFICIAL HIP JOINT 12/10/[address] active 17 UNILATERAL PRIMARY OSTEOARTHRITIS, LEFT HIP 12/10/[address] active 18 IRON DEFICIENCY ANEMIA, UNSPECIFIED 05/14/[address] active 19 ALLERGIC RHINITIS, UNSPECIFIED 11/28/[address] active 20 BODY MASS INDEX [BMI] 19.9 OR LESS, ADULT 11/28/[address] active 21 MILD PROTEIN-CALORIE MALNUTRITION 11/28/[address] active 22 PERIPHERAL VASCULAR DISEASE, UNSPECIFIED 11/28/[address] active 23 RESTLESS LEGS SYNDROME 11/28/[address] active 24 UNSPECIFIED ATHEROSCLEROSIS OF [place] [employer] [employer] ARTERIES OF EXTREMITIES, BILATERAL LEGS 11/28/[address] active 25 PERSONAL HISTORY OF COVID-19 05/04/[address] active 26 COVID-19 04/15/19 23 05/04/[address] completed 27 UNSPECIFIED OSTEOARTHRITIS, UNSPECIFIED SITE 05/10/[address] active 28 ANEMIA, UNSPECIFIED 01/13/[address] active 29 ANXIETY DISORDER, UNSPECIFIED 01/13/[address] active 30 CHRONIC IDIOPATHIC CONSTIPATION 01/13/[address] active 31 CHRONIC KIDNEY DISEASE, UNSPECIFIED 01/13/[address] active 32 EPILEPSY, UNSPECIFIED, NOT INTRACTABLE, WITHOUT STATUS EPILEPTICUS 01/13/[address] active 33 ESSENTIAL (PRIMARY) HYPERTENSION 01/13/[address] active 34 EXTRAPYRAMIDAL AND MOVEMENT DISORDER, UNSPECIFIED 01/13/[address] active 35 FIBROMYALGIA 01/13/[address] active 36 GASTRO-ESOPHAGEAL REFLUX DISEASE WITHOUT ESOPHAGITIS 01/13/[address] active 37 HYPERLIPIDEMIA, UNSPECIFIED 01/13/[address] active 38 HYPOTHYROIDISM, UNSPECIFIED 01/13/[address] active 39 MAJOR DEPRESSIVE DISORDER, SINGLE EPISODE, UNSPECIFIED 01/13/[address] active 40 OTHER CHRONIC PAIN 01/13/[address] active 41 OTHER SPECIFIED DISORDERS OF BONE DENSITY AND STRUCTURE, UNSPECIFIED SITE 01/13/[address] active 42 RECTAL PROLAPSE 01/13/[address] active 43 SYNDROME OF INAPPROPRIATE SECRETION OF ANTIDIURETIC HORMONE 01/13/[address] active Reason for Referral No Reasons for Referral Entered Diagnostic Results Laboratory Test Results Code Code System Date Test Observation Result Interpretation Reference Range Status Notes LP343 631-0 LOINC 01/01 LIPID PANEL w/calc LDL / AST (SGOT) Completed Result for: MELANIE ESPINOZA ([facility] [birth year] 56, F) 1919- [facility] 01/01 AST (SGOT) Value: 13 Units: [IU]/L Normal 4-40 Final LP343 631-0 [facility] 01/01 LIPID PANEL w/calc LDL Completed Result for: MELANIE ESPINOZA ([facility] [birth year] 56, F) 3- 3 LOINC 01/01 CHOLESTEROL Value: 164 Units: mg/dL Normal <200 Final 2570- 8 [facility] 01/01 TRIGLYCERIDE Value: 64 Units: mg/dL Normal <150 Final 2084- [facility] 01/01 HDL Value: 58 Units: mg/dL Normal >50 Final 63671 -7 [facility] 01/01 LDL CALCULATED Value: 93 Units: mg/dL Normal <100 Final 39362 -4 LOINC 01/01 LDLc/HDL RATIO - Normal <4:1 Final 2090- 7 [facility] 01/01 VLDLc Value: 13 Units: mg/dL Normal 5-30 Final LP343 631-0 LOINC 01/11 AST (SGOT) / ALT (SGPT) Completed Result for: MELANIE ESPINOZA ([facility] [birth year] 56, F) 1919- LOINC 01/11 AST (SGOT) Value: 11 Units: [IU]/L Normal 4-40 Final 1742- 6 LOINC 01/11 ALT (SGPT) Value: 7 Units: [IU]/L Normal 4-55 Final LP783 9-6 [facility] 01/22 BASIC MET PNL INCL GFR (BMP) Completed Result for: NEIL ESPINOZANE ( [birth year] 56, F) 2345- 7 [facility] 01/22 GLUCOSE Value: 78 Units: mg/dL Normal Final GLUCOSE , FASTING 65-99 mg/dL GLUCOS E, NON-FAS TING 65-125 mg/dL 2951- 2 [facility] 01/22 SODIUM Value: 133 Units: mEq/L Low 136-145 Final 2823- 3 [facility] 01/22 POTASSIUM Value: 4.2 Units: mEq/L Normal 3.5-5.3 Final 2074- 0 [facility] 01/22 CHLORIDE Value: 98 Units: mEq/L Normal 98-110 Final 2027- [facility] 01/22 CARBON DIOXIDE (CO2) Value: 27 Units: mEq/L Normal 21-33 Final 3094- 0 [facility] 01/22 BUN (UREA NITROGEN) Value: 7 Units: mg/dL Normal 7-25 Final 2160- 0 [facility] 01/22 CREATININE Value: 0.3 Units: mg/dL Low 0.6-1.3 Final Verifie d 3097- 3 [facility] 01/22 BUN/CREATININ E RATIO - High 6-22 Final 86837 -1 [facility] 01/22 GFR- Value: 267 Units: mL/min/ {1.73_m 2} Normal >60 Final 11366 -3 [facility] 01/22 [id number] AN LEBANESE Value: 221 Units: mL/min/ {1.73_m 2} Normal >60 Final Stage of CKD eGFR (mL/min /1.73 square meters) Stage 1 >/= 90 or > 90 Stage 2 60 - 89 Stage 3 30 - 59 Stage 4 15 - 29 Stage 5 </= 14 or < 15 GFR is reliabl e for adults 17 to 69 years with stable kidney functio n. 22910 -6 [facility] 01/22 CALCIUM Value: 8.3 Units: mg/dL Low 8.4-10.2 Final LP783 9-6 [facility] 01/22 CBC W/DIFF Completed Result for: MELANIE ESPINOZA ( [birth year] 56, F) 6690- 2 [facility] 01/22 WBC Value: 7.5 Units: K/cmm Normal 4.5-10.8 Final 789-8 LOINC 01/22 RBC Value: 4.42 Units: 10*3/mm 3 Normal 3.90-5.40 Final 718-7 [facility] 01/22 HEMOGLOBIN Value: 12.6 Units: g/dL Normal 12.0-16.0 Final 4544- 3 [facility] 01/22 HEMATOCRIT Value: 37.9 Units: % Normal 36.0-48.0 Final 14556 -7 [facility] 01/22 MCV Value: 85.7 Units: fL Normal 80.0-100.0 Final 785-6 [facility] 01/22 MCH Value: 28.5 Units: pg Normal 26.0-35.0 Final 786-4 [facility] 01/22 MCHC Value: 33.2 Units: g/dL Normal 31.0-36.5 Final 788-0 [facility] 01/22 RDW Value: 14.7 Units: % Normal 11.0-16.0 Final 777-3 LOINC 01/22 PLATELET Value: 416 Units: K/cmm Normal 150-450 Final 43849 -1 LOINC 01/22 MPV Value: 6.3 Units: fL Low 6.5-12.0 Final 770-8 [facility] 01/22 NEUTROPHILS Value: 63.0 Units: % Normal 40.0-80.0 Final 736-9 [facility] 01/22 LYMPHS Value: 22.0 Units: % Normal 13.0-48.0 Final 28123 -3 [facility] 01/22 MONOCYTES Value: 11.5 Units: % Normal 2.0-12.0 Final 713-8 [facility] 01/22 EOS Value: 2.3 Units: % Normal 0.0-8.0 Final 706-2 LOINC 01/22 BASO Value: 1.2 Units: % Normal 0.0-2.0 Final 751-8 LOINC 01/22 NEUTS (ABSOLUTE) Value: 4.70 Units: K/uL Normal 1.50-7.60 Final 731-0 LOINC 01/22 LYMPHS (ABSOLUTE) Value: 1.60 Units: K/uL Normal 0.90-5.50 Final 742-7 LOINC 01/22 MONOCYTES (ABSOLUTE) Value: 0.90 Units: K/uL Normal 0.15-1.10 Final 711-2 LOINC 01/22 EOS (ABSOLUTE) Value: 0.20 Units: K/uL Normal 0.00-0.80 Final 704-7 LOINC 01/22 BASO (ABSOLUTE) Value: 0.10 Units: K/uL Normal 0.00-0.30 Final 771-6 [facility] 01/22 NUCLEATED RBC Value: 0.1 Units: {RBC}/1 00{WBC} Normal <1.0 Final LP783 9-6 [facility] 01/27 CMP-COM PREHENS GRADY METABOL IC PNL Completed Result for: MELANIE ESPINOZA ( [birth year] 56, F) 2345- 7 [facility] 01/27 GLUCOSE Value: 44 Units: mg/dL Low Final GLUCOSE , FASTING 65-99 mg/dL GLUCOS E, NON-FAS TING 65-125 mg/dL 2951- 2 [facility] 01/27 SODIUM Value: 123 Units: mEq/L Low 136-145 Final Verifie d 2823- 3 [facility] 01/27 POTASSIUM Value: 4.2 Units: mEq/L Normal 3.5-5.3 Final 2074- 0 [facility] 01/27 CHLORIDE Value: 86 Units: mEq/L Low 98-110 Final Verifie d 2027- 9 [facility] 01/27 CARBON DIOXIDE (CO2) Value: 24 Units: mEq/L Normal 21-33 Final 3094- 0 [facility] 01/27 BUN (UREA NITROGEN) Value: 9 Units: mg/dL Normal 7-25 Final 2160- 0 [facility] 01/27 CREATININE Value: 0.3 Units: mg/dL Low 0.6-1.3 Final Verifie d 3097- 3 LOINC 01/27 BUN/CREATININ E RATIO - High 6-22 Final 81039 -1 [facility] 01/27 GFR- Value: 267 Units: mL/min/ {1.73_m 2} Normal >60 Final 53836 -3 [facility] 01/27 [id number] AN LEBANESE Value: 221 Units: mL/min/ {1.73_m 2} Normal >60 Final Stage of CKD eGFR (mL/min /1.73 square meters) Stage 1 >/= 90 or > 90 Stage 2 60 - 89 Stage 3 30 - 59 Stage 4 15 - 29 Stage 5 </= 14 or < 15 GFR is reliabl e for adults 17 to 69 years with stable kidney functio n. 54539 -6 [facility] 01/27 CALCIUM Value: 7.6 Units: mg/dL Low 8.4-10.2 Final 2885- 2 [facility] 01/27 PROTEIN, TOTAL Value: 4.9 Units: g/dL Low 6.0-8.3 Final 175- 7 [facility] 01/27 ALBUMIN Value: 2.9 Units: g/dL Low 3.5-5.5 Final 1759- 0 [facility] 01/27 A/G RATIO - Normal 1.0-2.3 Final 6768- 6 [facility] 01/27 ALKALINE PHOS Value: 126 Units: [IU]/L Normal 34-136 Final 1920- 8 [facility] 01/27 AST (SGOT) Value: 26 Units: [IU]/L Normal 4-40 Final 1742- 6 [facility] 01/27 ALT (SGPT) Value: 11 Units: [IU]/L Normal 4-55 Final 1975- 2 [facility] 01/27 BILIRUBIN, TOTAL Value: 0.3 Units: mg/dL Normal 0.2-1.2 Final LP783 9-6 [facility] 01/27 CBC W/DIFF Completed Result for: NEIL ESPINOZANE ( [birth year] 56, F) 6690- 2 [facility] 01/27 WBC Value: 10.2 Units: K/cmm Normal 4.5-10.8 Final 789-8 [facility] 01/27 RBC Value: 4.16 Units: 10*3/mm 3 Normal 3.90-5.40 Final 718-7 [facility] 01/27 HEMOGLOBIN Value: 12.1 Units: g/dL Normal 12.0-16.0 Final 4544- 3 [facility] 01/27 HEMATOCRIT Value: 35.5 Units: % Low 36.0-48.0 Final 42246 -7 [facility] 01/27 MCV Value: 85.5 Units: fL Normal 80.0-100.0 Final 785-6 [facility] 01/27 MCH Value: 29.1 Units: pg Normal 26.0-35.0 Final 786-4 [facility] 01/27 MCHC Value: 34.0 Units: g/dL Normal 31.0-36.5 Final 788-0 [facility] 01/27 RDW Value: 14.4 Units: % Normal 11.0-16.0 Final 777-3 [facility] 01/27 PLATELET Value: 466 Units: K/cmm High 150-450 Final 86325 -1 [facility] 01/27 MPV Value: 6.1 Units: fL Low 6.5-12.0 Final 770-8 [facility] 01/27 NEUTROPHILS Value: 75.6 Units: % Normal 40.0-80.0 Final 736-9 [facility] 01/27 LYMPHS Value: 12.1 Units: % Low 13.0-48.0 Final 01946 -3 [facility] 01/27 MONOCYTES Value: 11.4 Units: % Normal 2.0-12.0 Final 713-8 [facility] 01/27 EOS Value: 0.4 Units: % Normal 0.0-8.0 Final 706-2 [facility] 01/27 BASO Value: 0.5 Units: % Normal 0.0-2.0 Final 751-8 [facility] 01/27 NEUTS (ABSOLUTE) Value: 7.70 Units: K/uL High 1.50-7.60 Final 731-0 [facility] 01/27 LYMPHS (ABSOLUTE) Value: 1.20 Units: K/uL Normal 0.90-5.50 Final 742-7 [facility] 01/27 MONOCYTES (ABSOLUTE) Value: 1.20 Units: K/uL High 0.15-1.10 Final 771-6 [facility] 01/27 NUCLEATED RBC Value: 0.1 Units: {RBC}/1 00{WBC} Normal <1.0 Final LP783 9-6 [facility] 01/28 CULTURE , URINE Completed Result for: MELANIE ESPINOZA ( [birth year] 56, F) [phone] [phone] [facility] 01/25 CULTURE, URINE - Normal Final (Final) Source: URINE NO GROWTH AT 48 HOURS Radiology Test Results Code Code System Date Test Procedure Status Notes 20768-0 [facility] 5 KUB X-Ray Kidney, Ureter, Bladder / Report PDF Completed Result for: MELANIE ESPINOZA ( 1955, F) 10076-6 [facility] 5 KUB X-Ray Kidney, Ureter, Bladder Final SIGNIFICANT FINDINGSKUB X-Ray Kidney, Ureter, Bladder:.Exam: KUB.History: Abdominal pain and discomfort for 2 days.No BM for 2 days.Dilated loops of large bowel are identified with a mild amount of retained fecal material. No organomegaly is seen. No renal or biliary calcifications are noted..IMPRESSION:Mil d amount of retained fecal material.Mild colonic ileus. Follow-up is recommended...Electro nically Signed By: Dr. Taurus Waters M.D. 5 Report PDF Final See Attachment [id number] [facility] 5 HUMERUS X-Ray - 2 OR MORE VIEWS / Report PDF / SHOULDER X-Ray Complete 2 or more views Completed Result for: MELANIE ESPINOZA ( 1955, F) 50608-8 [facility] 5 HUMERUS X-Ray - 2 OR MORE VIEWS Final SIGNIFICANT FINDINGSRIGHT HUMERUS X-Ray - 2 OR MORE VIEWS:.Exam: Right humerus.History: Pain.See NoteAn orthopedic device replaces the right shoulder joint. Acute fracture through the proximal right humerus is noted with medial displacement and angulation noted. No distal humeral fracture is identified..IMPRESSIO N:Orthopedic device replaces the right shoulder joint.Acute angulated fracture through the proximal right humerus...Electronica lly Signed By: Dr. Taurus Waters M.D. 5 Report PDF Final See Attachment [id number] LOINC SHOULDER X-Ray Complete 2 or more views Final SIGNIFICANT FINDINGSRIGHT SHOULDER X-Ray Complete 2 or more views:.Exam: Right shoulder.History: Increase in pain and immobility for 1 week.Fall 2 weeks ago.The examination is compared to study dated March 23, 2024.See NoteAn orthopedic device replaces the shoulder joint. Acute comminuted fracture with marked medial angulation and displacement is noted in the proximal humerus. Postoperative changes at the distal and of the right clavicle a has occurred in the interval..IMPRESSION: Replacement of the right shoulder joint by prosthetic.Acute fracture through the proximal right humerus.Postoperative changes suspected at the acromioclavicular joint...Electronicall y Signed By: Dr. Taurus Waters M.D. Social History Social History Observation Description Start Date End Date Code Code System Current Smoking Status Tobacco smoking consumption unknown 958534520 SNOMED CT Sex Assigned At Female 1955 92853-8 [facility] Gender Identity Sexual Orientation Vital Signs Code Code System Vitals Name Values and Units Timing Information 14637-4 [facility] O2 % BldC Oximetry Value=93.0 Units= % 01/29/2025 96510-1 [facility] Pain Level Value=6.0 01/29/2025 9279-1 [facility] Respiratory Rate Value=18.0 Units=/m in 01/29/2025 8462-4 [facility] Blood Pressure-Diastolic Value=78 Un its=mmHg 01/29/2025 8480-6 [facility] Blood Pressure-Systolic Sgxcw=105 Un its=mmHg 01/29/2025 8310-5 [facility] Body Temperature Value=98.3 Units= F 01/29/2025 8867-4 [facility] Heart rate Value=78.0 Units=/min 99791-6 LOINC Weight Value=95.4 Units=Lbs 0 05/2024 2339-0 [facility] Blood Sugar Jaihk=301.0 Units=mg/dL 11/20/2024 8302-2 LOINC Height Value=63.0 Units=Inches 01/13/2021
--- OUTSIDE RECORDS SUMMARY | 2025-01-29 14:42 | XMS_ITS | Encounter Summary ---
Author Organization [facility] Sys tem Address [id number] [address] [place] [address] Care Team Providers Care Clothing Designer Name Role Phone Alexey Connor Primary Care Provider [phone] Encounter Details Date Type Department Care Team (Late st Contact Info) Description 12/25/2021 Orders Only [facility] - Family Medicine [address] [place] [address] External, Scanning Provider Social History Tobacco Use [...] Recent Progress Patient-Stated? Author go to [place] for therapy General Yes Ronit Sorensen LSW Note: Evaluation of progress towards goal: will DC from ED to SNF upon arrangements Long-Term Goals General Yes Amparo Nix LSW Note: Evaluation of progress towards goal: return to [facility] documented as of this encounter [...] documented as of this encounter Care Teams Clothing Designer Relationship Specialty Start Date End Date Alexey Connor DO [address] [facility], [place] [address] PCP - General Family Medicine 03/27/22 documented as of this encounter
--- OUTSIDE RECORDS SUMMARY | 2025-01-29 14:42 | XMS_ITS | Encounter Summary ---
Author Organization [facility] Address [facility]-[id number] [address] [place] [address] Care Team Providers Care Nail Tech Name Role Phone Alexey Connor Primary Care Provider + [phone] Encounter Details Date Type Department Care Team (Late st Contact Info) Description 05/20/2023 Orders Only [facility] - Family Medicine [address] [place] [address] External, Scanning Provider Social History Tobacco Use [...] Problems Recent Progress Patient-Stated? Author go to [place] for therapy General Yes Ronit Sorensen LSW Note: Evaluation of progress towards goal: will DC from ED to SNF upon arrangements Long-Term Goals General Yes Amparo Nix LSW Note: Evaluation of progress towards goal: return to [facility] documented as of this encounter Visit Diagnoses Not on filedocumented in this encounter Care Teams Nail Tech Relationship Specialty Start Date End Date Alexey Connor DO [address] [facility], [place] [address] PCP - General Family Medicine 03/27/22 documented as of this encounter
--- OUTSIDE RECORDS SUMMARY | 2025-01-29 14:42 | XMS_ITS | Encounter Summary ---
Author Organization [facility] Address [address] [place] [address] Care Team Providers Care Manager Client Service Name Role Phone Esteban Slater MD Primary Care Provider [phone] Source Comments In the event this information is protected by the Federal Confidentiality of Alcohol and Drug AbusePatient Records regulations: The Federal rules restrict any use of the information to criminally investigate or prosecute any alcohol or drug abuse patient.[facility] Encounter Details Date Type Department Care Team (Late st Contact Info) Description 01/26/2019 Patient Msg [facility] [address] [place] [address] Provider, [facility] [place] Caregiver Access Social History Tobacco Use [...] filedocumented in this encounter Care Teams Manager Client Service Relationship Specialty Start Date End Date Esteban Slater MD [address] [place] [address] PCP - General Family Medicine 07/21/18 documented as of this encounter
--- OUTSIDE RECORDS SUMMARY | 2025-01-29 14:42 | XMS_ITS | Encounter Summary ---
Author Organization [facility] Address [id number] [address] [place] [address] Care Team Providers Care Plate Sensitizer Name Role Phone Alexey Connor Primary Care Provider + [phone] Encounter Details Date Type Department Care Team (Late st Contact Info) Description 05/13/2023 Orders Only [facility] - Family Medicine [address] [place] [address] External, Scanning Provider Social History Tobacco Use [...] Problems Recent Progress Patient-Stated? Author go to [place] for therapy General Yes Ronit Sorensen LSW Note: Evaluation of progress towards goal: will DC from ED to SNF upon arrangements Long-Term Goals General Yes Amparo Nix LSW Note: Evaluation of progress towards goal: return to [facility] documented as of this encounter Visit Diagnoses Not on filedocumented in this encounter Care Teams Plate Sensitizer Relationship Specialty Start Date End Date Alexey Connor DO [address] [facility], [place] [address] PCP - General Family Medicine 03/27/22 documented as of this encounter
--- OUTSIDE RECORDS SUMMARY | 2025-01-29 14:42 | XMS_ITS | Clinical Summary ---
Author Organization [facility] Address [address] [place] [address] Care Team Providers Care Parcel Post Officer Name Role Phone Alexey Connor DO Primary Care Provider [phone] Allergies Active Allergy Reactions Criticality Noted Date [...] mg 24 hr tabletIndicatio ns:Atherosclero sis of circle coronary artery of circle heart without angina pectoris Take 1 tablet [...] hip 12/06/2023 Coronary artery disease invo lving circle coronary artery of circle heart without angina pectoris 09/18/2023 Benign hypertensive [...] Description 01/22/2025 12:20 PM EDT Office Visit [facility] [address] [place] [facility] [place] [address] Marline Sandoval MD Generalized muscle ache (Primary Dx); Coronary artery disease involving circle coronary artery of circle heart without angina pectoris; Primary hypertension; Pure hypercholesterolemia 12/31/[address] [facility] [address] [place] [facility] [place] [address] Alieda Wu MA 12/30/[address] [facility] [address] [place] [facility] [place] [address] Aleida Wu MA Hyperlipidemia, unspecified hyperlipidemia type [...] drink = 0.6 oz pur e alcohol) [facility] Utilities Answer Date Recorded In the [...] place to sleep or slept in a [facility]p (including now)? No 01/16/2024 Hunger Vital Sign [...] this topic Medical Devices Implanted Type Area Asphalt Engineer Device Identifier Shelf Expiration Date Model / Serial / Lot Screw,Bone,6. [id number] - [id number] Implanted:Qty : 1 on 12/06/2023 by Ernesto Kan MD at [facility] Screw Left: Hip [employer] [id number] 07/01/2032 [id number] / / [id number] Screw,Bone,Se lf-Tap,6.5x35 mm - [id number] Implanted:Qty : 1 on 12/06/2023 by Ernesto Kan MD at [facility] Screw Left: Hip [employer] [id number] 07/03/2033 6250-065-35 / / [id number] Screw,Bone,Se lf-Tap,6.5x30 mm - [id number] Implanted:Qty : 1 on 12/06/2023 by Ernesto Kan MD at [facility] Screw Left: Hip [employer]DR[employer] [id number] 07/25/2033 [id number] / / [id number] Screw,Bone,Se lf-Tap,6.5x20 mm - [id number] Implanted:Qty : 1 on 12/06/2023 by Ernesto Kan MD at [facility] Screw Left: Hip MILDRED [id number] 05/16/2033 [id number] / / [id number] Acetabular System Shell Implanted:Qty : 1 on 12/06/2023 by Ernesto Kan MD at [facility] Total Joint Left: Hip [employer] [id number] 08/10/2033 [id number] / / [id number] Liner,G7,E1,4 0,F - [id number] Implanted:Qty : 1 on 12/06/2023 by Ernesto Kan MD at [facility] Total Joint Left: Hip [employer] [id number] 12/04/2026 [id number] / / [id number] Stem,Reduce,D istal,Stnd,9. 0 - [id number] Implanted:Qty : 1 on 12/06/2023 by Ernesto Kan MD at [facility] Total Joint Left: Hip [employer] [id number] 09/22/2032 [id number] / / [id number] Head,Biolox-D Mod,40mm - [id number] Implanted:Qty : 1 on 12/06/2023 by Ernesto Kan MD at [facility] Total Joint Left: Hip [employer] [id number] 09/18/2033 650-1058 / / [id number] Sleeve,Biolox Option Type 1,-6 - [id number] Implanted:Qty : 1 on 12/06/2023 by Ernesto Kan MD at [facility] Total Joint Left: Hip [employer] [id number] 03/11/2033 650-1064 / / [id number] Insurance [id number] [employer] MEDICARE MEDICAID [place] Advance Directives * Full Code (Latest Code Status on File) Date Activated Date Inactivated Comments 12/10/2023 1:02 PM 12/10/2023 7:42 PM * Full Code Date Activated Date Inactivated Comments 12/06/2023 1:47 PM 12/10/2023 1:02 PM Care Teams Parcel Post Officer Relationship Specialty Start Date End Date Alexey Connor DO PCP - General Family Medicine 04/04/23
--- OUTSIDE RECORDS SUMMARY | 2025-01-29 14:42 | XMS_ITS | Encounter Summary ---
Author Organization [facility] tem Address [id number] [address] [place] [address] Care Team Providers Care Baffle Installer Name Role Phone Alexey Connor Primary Care Provider + [phone] Encounter Details Date Type Department Care Team (Late st Contact Info) Description 09/11/2023 Orders Only [facility] - Family Medicine [address] [place] [address] External, Scanning Provider Social History Tobacco Use [...] Problems Recent Progress Patient-Stated? Author go to [place] for therapy General Yes Ronit Sorensen LSW Note: Evaluation of progress towards goal: will DC from ED to SNF upon arrangements Long-Term Goals General Yes Amparo Nix LSW Note: Evaluation of progress towards goal: return to [facility] documented as of this encounter Procedures Procedure Name Priority Date/Time Associated Diagnosis Comments NUC STRESS EXERCISE Routine 09/10/2023 3:44 PM EDT NUC STRESS EXERCISE Routine 09/10/2023 3:38 PM EDT documented in this encounter Visit Diagnoses Not on filedocumented in this encounter Care Teams Baffle Installer Relationship Specialty Start Date End Date Alexey Connor DO [address] [facility], [place] [address] PCP - General Family Medicine 03/27/22 documented as of this encounter
--- OUTSIDE RECORDS SUMMARY | 2025-01-29 14:42 | XMS_ITS | Encounter Summary ---
Author Organization [facility] Address [id number] [address] [place] [address] Care Team Providers Care Fire Safety Inspector Name Role Phone Alexey Connor Primary Care Provider [phone] Encounter Details Date Type Department Care Team (Late st Contact Info) Description 02/17/2024 Orders Only [facility] - Family Medicine [address] [place] [address] Ref Prov, [place] [address] Social History Tobacco Use Types Packs/Day Years [...] Problems Recent Progress Patient-Stated? Author go to [place] for therapy General Yes Ronit Sorensen LSW Note: Evaluation of progress towards goal: will DC from ED to SNF upon arrangements Long-Term Goals General Yes Amparo Nix LSW Note: Evaluation of progress towards goal: return to [facility] documented as of this encounter Procedures [...] on filedocumented in this encounter Care Teams Fire Safety Inspector Relationship Specialty Start Date End Date Alexey Connor DO [address], [place] [address] PCP - General Family Medicine 03/27/22 documented as of this encounter
--- OUTSIDE RECORDS SUMMARY | 2025-01-29 14:42 | XMS_ITS | Encounter Summary ---
Author Organization [facility] tem Address [facility]-[id number] [address] [place] [address] Care Team Providers Care Transportation Agent Name Role Phone Alexey Connor DO Primary Care Provider [phone] Encounter Details Date Type Department Care Team (Late st Contact Info) Description 02/03/2024 Orders Only [facility] - Family Medicine [address] [place] [address] Alexey Connor DO [address], [facility] [place], [place] [id number] Social History Tobacco Use Types Packs/Day Years [...] Problems Recent Progress Patient-Stated? Author go to [place] for therapy General Yes Ronit Sorensen LSW Note: Evaluation of progress towards goal: will DC from ED to SNF upon arrangements Long-Term Goals General Yes Amparo Nxi LSW Note: Evaluation of progress towards goal: return to [facility] documented as of this encounter Visit Diagnoses Not on filedocumented in this encounter Care Teams Transportation Agent Relationship Specialty Start Date End Date Alexey Connor DO [address] [facility] [place] [address] PCP - General Family Medicine 03/27/22 documented as of this encounter
--- OUTSIDE RECORDS SUMMARY | 2025-01-29 14:42 | XMS_ITS | Clinical Summary ---
Author Organization [employer] [facility] Address [facility]-[id number] [address] [place] [address] Care Team Providers Care Senior Animator Name Role Phone Alexey Connor Primary Care [...] - Family Medicine [address] [place] [address] Alexey Connor DO Right knee pain, unspecified chronicity (Primary Dx); Hypo-osmolality and hyponatremia; SIADH (syndrome of inappropriate ADH production); Primary hypertension; Movement disorder; Multifactorial gait disorder; Hyperlipidemia, unspecified hyperlipidemia type 12/04/2024 Continuing Care [facility] - Family Medicine [address] [place] [address] Alexey Connor DO Primary hypertension (Primary Dx); SIADH (syndrome of inappropriate ADH production); Acquired hypothyroidism; Hypoglycemia; Tardive dyskinesia; Iron deficiency anemia, unspecified iron deficiency anemia type; Multifactorial gait disorder 10/30/2024 Continuing Care [facility] - Family [facility] [address] [place] [address] Alexey Connor, Closed fracture of tuft of [...] Problems Recent Progress Patient-Stated? Author go to [place] for therapy General Yes Ronit Sorensen LSW Note: Evaluation of progress towards goal: will DC from ED to SNF upon arrangements Long-Term Goals General Yes Amparo Nix LSW Note: Evaluation of progress towards goal: return to [facility] Medical Devices Implanted Type Area Fast Food Sales Assistant Device Identifier Shelf Expiration Date Model / Serial / Lot Mesh Pco Vntrl Ptch 4.6cm Rpl [id number] - Sna - [id number] Implanted:Qty: 1 on 01/29/2020 by Tai Del Rosario MD at [facility] Mesh N/A: Abdomen Hearsay.it [facility] 06/12/2024 [id number] / NA / [id number] Procedures Procedure Name Priority Date/Time Associated Diagnosis [...] Recently Relevant to Health Maintenance Insurance MEDICAID [place] UNITEDHEALTHCARE MEDICARE Advance Directives * Full Code (Latest Code Status on File) Date Activated Date Inactivated Comments 05/18/2022 5:36 PM 05/19/2022 9:18 PM * Full Code Date Activated Date Inactivated Comments 02/04/2021 10:29 AM 02/06/2021 4:12 PM * DNR Comfort Care Arrest (DNR-CCA) [place] Date Activated Date Inactivated Comments 01/07/2021 4:37 PM 01/08/2021 7:11 PM * Full Code Date Activated Date Inactivated Comments 12/23/2020 7:31 AM 12/26/2020 12:12 PM Care Teams Senior Animator Relationship Specialty Start Date End Date Alexey Connor DO [address], [place] [address] PCP - General Family Medicine 03/27/22
--- OUTSIDE RECORDS SUMMARY | 2025-01-29 14:42 | XMS_ITS | Encounter Summary ---
Author Organization [facility] Address [facility]-[id number] [address] [place] [address] Care Team Providers Care Physicist Solid Earth Name Role Phone Alexey Connor Primary Care Provider [phone] Encounter Details Date Type Department Care Team (Late st Contact Info) Description 03/30/2022 Orders Only [facility] - Family Medicine [address] [place] [address] External, Scanning Provider Social History Tobacco Use [...] Problems Recent Progress Patient-Stated? Author go to [place] for therapy General Yes Ronit Sorensen LSW Note: Evaluation of progress towards goal: will DC from ED to SNF upon arrangements Long-Term Goals General Yes Amparo Nix LSW Note: Evaluation of progress towards goal: return to [facility] documented as of this encounter Procedures Procedure Name Priority Date/Time Associated Diagnosis Comments MULTIPLE LABS Routine 03/28/2022 documented in this encounter Results * Multiple labs (03/28/2022) 03/28/2022 us Scanning Provider External DE IMAGING Final Result MANUALLY TRANSCRIBED RESULTS documented in this encounter Visit Diagnoses Not on filedocumented in this encounter Additional Health Concerns Infection Onset Date Last Indicated Resolved Time COVID-19 Rule-Out 04/08/2022 04/08/2022 04/08/2022 11:12 PM EST documented as of this encounter Care Teams Physicist Solid Earth Relationship Specialty Start Date End Date Alexey Connor DO [address] [place] [address] PCP - General Family Medicine 03/27/22 documented as of this encounter
--- OUTSIDE RECORDS SUMMARY | 2025-01-29 14:42 | XMS_ITS | Encounter Summary ---
Author Organization [facility] Address [facility]-[id number] [address] [place] [address] Care Team Providers Care Service Center Assistant Name Role Phone Alexey Connor Primary Care Provider [phone] Encounter Details Date Type Department Care Team (Late st Contact Info) Description 02/13/2024 Orders Only [facility] - Family Medicine [address] [place] [address] Ref Prov, [place] [address] Social History Tobacco Use Types Packs/Day Years [...] Problems Recent Progress Patient-Stated? Author go to [place] for therapy General Yes Ronit Sorensen LSW Note: Evaluation of progress towards goal: will DC from ED to SNF upon arrangements Long-Term Goals General Yes Amparo Nix LSW Note: Evaluation of progress towards goal: return to [facility] documented as of this encounter Procedures [...] ORDERABLES Catia l Result Performing Organization Address [facility] de Phone Number MANUALLY TRANSCRIBED RESULTS * Multiple labs (02/12/2024 2:55 PM EDT) us Not In System Ref Prov LA IMAGING Final Res ult Performing Organization Address [facility] de Phone Number MANUALLY TRANSCRIBED RESULTS * CBC W Auto Diff Bld (02/12/2024 8:59 AM EDT) us Not In System Ref Prov LAB BLOOD ORDERABLES Catia l Result Performing Organization Address [facility] de Phone Number MANUALLY TRANSCRIBED RESULTS documented in this encounter Visit Diagnoses Not on filedocumented in this encounter Care Teams Service Center Assistant Relationship Specialty Start Date End Date Alexey Connor DO [address] [place] [address] PCP - General Family Medicine 03/27/22 documented as of this encounter
--- OUTSIDE RECORDS SUMMARY | 2025-01-29 14:42 | XMS_ITS | Encounter Summary ---
Author Organization [facility] Address [address] [place] [address] Care Team Providers Care Gamma Ray Operator Name Role Phone Esteban Slater MD Primary Care Provider [phone] Source Comments In the event this information is protected by the Federal Confidentiality of Alcohol and Drug AbusePatient Records regulations: The Federal rules restrict any use of the information to criminally investigate or prosecute any alcohol or drug abuse patient.[facility] Encounter Details Date Type Department Care Team (Late st Contact Info) Description 08/29/2020 Get Medical Advice Neurology [address] [place], [place] [id number] Tai Hinojosa MD [address] [place] [address] Non-Urgent Medical Question Social History Tobacco Use [...] on file 03/20/2020 Data from: [email or web address]/. Last address used for calculation Not on [...] on filedocumented in this encounter Care Teams Gamma Ray Operator Relationship Specialty Start Date End Date Esteban Slater MD [address] [place] [address] PCP - General Family Medicine 07/21/18 documented as of this encounter
--- OUTSIDE RECORDS SUMMARY | 2025-01-29 14:42 | XMS_ITS | Encounter Summary ---
Author Organization [employer]) [facility] tem Address [facility] [place]-[id number] [address] [place] [address] Care Team Providers Care Alligator Hunter Name Role Phone SuzetteAlexey gtz Primary Care Provider + [phone] Encounter Details Date Type Department Care Team (Late st Contact Info) Description 09/04/2023 [facility]phone [facility] - [facility] [address] [place] [address] Janina Blue CMA Social History Tobacco Use [...] Blue CMA - 09/04/2023 3:29 PM EDT Marina from [facility] called stated pt needs a referral for a different cardiogist bc ours is out of network for this pt can you do that? documented in this encounter Plan of Treatment Not on file documented as of this encounter Goals Goal Patient Goal Type Associated Problems Recent Progress Patient-Stated? Author go to [place] for therapy General Yes Ronit Sorensen LSW Note: Evaluation of progress towards goal: will DC from ED to SNF upon arrangements Long-Term Goals General Yes Amparo Nix LSW Note: Evaluation of progress towards goal: return to [facility] documented as of this encounter Visit Diagnoses Not on filedocumented in this encounter Care Teams Alligator Hunter Relationship Specialty Start Date End Date Alexey Connor DO [address], [facility] [place] [address] PCP - General Family Medicine 03/27/22 documented as of this encounter
--- OUTSIDE RECORDS SUMMARY | 2025-01-29 14:42 | XMS_ITS | Encounter Summary ---
Author Organization [facility] Address [address] [place] [address] Care Team Providers Care Fruit Canner Name Role Phone Esteban Slater MD Primary Care Provider [phone] Source Comments In the event this information is protected by the Federal Confidentiality of Alcohol and Drug AbusePatient Records regulations: The Federal rules restrict any use of the information to criminally investigate or prosecute any alcohol or drug abuse patient.[facility] Encounter Details Date Type Department Care Team (Late st Contact Info) Description 11/25/2020 Get Medical Advice Neurology [address] [place], [place] [id number] Tai Hinojosa MD [address] [place] [address] RE: Non-Urgent Medical Question Social History Tobacco [...] N ot on file 03/20/2020 Data from: https://www.neighborhoodatlas.medicine.[facility]/. Last address used for calculation Not on [...] on filedocumented in this encounter Care Teams Fruit Canner Relationship Specialty Start Date End Date Esteban Slater MD [address] [place] [address] PCP - General Family Medicine 07/21/18 documented as of this encounter
--- OUTSIDE RECORDS SUMMARY | 2025-01-29 14:42 | XMS_ITS | Encounter Summary ---
Author Organization [facility] Address [facility] [place]-[id number] [address] [place] [address] Care Team Providers Care Assembler Wire Group Name Role Phone Alexey Connor Primary Care Provider [phone] Encounter Details Date Type Department Care Team (Late st Contact Info) Description 02/12/2024 Orders Only [facility] Internal Medicine - Family Medicine [address] [place] [address] Ref Prov, [place] [address] Social History Tobacco Use Types Packs/Day Years [...] Problems Recent Progress Patient-Stated? Author go to [place] for therapy General Yes Ronit Sorensen LSW Note: Evaluation of progress towards goal: will DC from ED to SNF upon arrangements Long-Term Goals General Yes Amparo Nix LSW Note: Evaluation of progress towards goal: return to [facility] documented as of this encounter [...] on filedocumented in this encounter Care Teams Assembler Wire Group Relationship Specialty Start Date End Date Alexey Connor DO [address], [place] [address] PCP - General Family Medicine 03/27/22 documented as of this encounter
--- OUTSIDE RECORDS SUMMARY | 2025-01-29 14:42 | XMS_ITS | Encounter Summary ---
Author Organization [facility] Address [address] [place] [address] Care Team Providers Care Educational Technology Specialist Name Role Phone Esteban Slater MD Primary Care Provider [phone] Source Comments In the event this information is protected by the Federal Confidentiality of Alcohol and Drug AbusePatient Records regulations: The Federal rules restrict any use of the information to criminally investigate or prosecute any alcohol or drug abuse patient.[facility] Encounter Details Date Type Department Care Team (Late st Contact Info) Description 08/04/2018 Patient Msg Urology [address] [place] [address] Provider, Jacquelyn Primidone Social History [...] on filedocumented in this encounter Care Teams Educational Technology Specialist Relationship Specialty Start Date End Date Esteban Slater MD [address] [place] [address] PCP - General Family Medicine 07/21/18 documented as of this encounter
--- OUTSIDE RECORDS SUMMARY | 2025-01-29 14:42 | XMS_ITS | Encounter Summary ---
Author Organization [facility] Address [id number] [address] [place] [address] Care Team Providers Care Safety Investigator Name Role Phone Alexey Connor Primary Care Provider [phone] Encounter Details Date Type Department Care Team (Late st Contact Info) Description 06/09/2024 Orders Only [facility] Internal Medicine - Family Medicine [address] [place] [address] Ref Prov, [place] [address] Social History Tobacco Use Types Packs/Day Years [...] Problems Recent Progress Patient-Stated? Author go to [place] for therapy General Yes Ronit Sorensen LSW Note: Evaluation of progress towards goal: will DC from ED to SNF upon arrangements Long-Term Goals General Yes Amparo Nix LSW Note: Evaluation of progress towards goal: return to [facility] documented as of this encounter [...] on filedocumented in this encounter Care Teams Safety Investigator Relationship Specialty Start Date End Date Alexye Connor DO [address], [place] [address] PCP - General Family Medicine 03/27/22 documented as of this encounter
--- OUTSIDE RECORDS SUMMARY | 2025-01-29 14:42 | XMS_ITS | Encounter Summary ---
Author Organization [facility] tem Address [facility]-[id number] [address] [place] [address] Care Team Providers Care Lands Resource Manager Name Role Phone Alexey Connor Primary Care Provider [phone] Encounter Details Date Type Department Care Team (Late st Contact Info) Description 09/13/2022 [facility] - Family Medicine [address] [place] [address] Samanta Roche, BOAT DETAILER Hyponatremia Social History Tobacco Use Types Packs/Day [...] Problems Recent Progress Patient-Stated? Author go to [place] for therapy General Yes Roint Sorensen LSW Note: Evaluation of progress towards goal: will DC from ED to SNF upon arrangements Long-Term Goals General Yes Amparo Nix, RECEIVING INSPECTOR Note: Evaluation of progress towards goal: return to [facility] documented as of this encounter Procedures Procedure [...] TRANSCRIBED RESULTS Blood 09/13/2022 us Edilma Yin OUTSIDE DEALER SALES REPRESENTATIVE-CUTTER DOWN LAB BLOOD ORDERABLES Final Result MANUALLY TRANSCRIBED RESULTS documented in this encounter Visit Diagnoses Diagnosis Hyponatremia Hyposmolality and/or hyponatremia documented in this encounter Care Teams Lands Resource Manager Relationship Specialty Start Date End Date Alexey Connor DO [address], [place] [address] PCP - General Family Medicine 03/27/22 documented as of this encounter
--- OUTSIDE RECORDS SUMMARY | 2025-01-29 14:42 | XMS_ITS | Clinical Summary ---
Author Organization [facility] Address [address] [place] [address] Care Team Providers Care Career Advisor Name Role Phone Esteban Slater MD Primary Care Provider [phone] Allergies Active Allergy Reactions Criticality Noted Date [...] original vaccine, a ge 12+ yr, monovalent ([employer] - [facility]) 03/26/2021,07/14/2020,06/23/2020 diphtheria tetanus pertussis (DTP) vaccine [...] Medical History Relation Comments Heart Father of MD Leukemia Father actually lymphom a Cancer Maternal [...] is lower risk 8 05/14/2023 Data from: https://www.neighborhoodatlas.medicine.[facility].edu/. Last address used for calculation [address] [facility] 05/14/2023 Comments No Sex and Gender [...] Directive Discussion 04/15/2024 Medicare Advantage Annual [facility] Visit 04/15/2024 Covid-19 Vaccine (6 2024-2 6 season) 2024 09/27/2022, 11/29/2021, 03/26/2021, Additional history exists Influenza Vaccine (#1) 2024 , 12/19/2019, 12/15/2019, Additional history exists Diabetes Screening 05/19/2025 05/19/2022, 1 06/09/2021, 04/04/2022, Additional history exists RSV Vaccine (1 - 1-dose 75+ series) 2030 DTaP,Tdap,Td Vaccine (3 - Td or Tdap) 12/28/2030 12/28/2020, 06/28/2020 Shingrix Vaccine Completed 04/11/2020, , 02/25/2019, Additional history exists Insurance [facility] MEDICARE ADVANTAGE PPO Care Teams Career Advisor Relationship Specialty Start Date End Date Esteban Slater MD [address] [place] [address] PCP - General Family Medicine 07/21/18
--- OUTSIDE RECORDS SUMMARY | 2025-01-29 14:42 | XMS_ITS | Encounter Summary ---
Author Organization [facility] Address [facility] [place]-[id number] [address] [place] [address] Care Team Providers Care Logging Truck Driver Name Role Phone Alexey Connor DO Primary Care Provider + [phone] Reason for Referral * Consultation (Routine) - Closed Specialty Diagnoses / Procedures Referred By Contac t Referred To Contact Cardiology Diagnoses Abnormal stress test Alexey Connor DO [address], [place] [address] Phone: tel: fax: Efren Jordan MD [address] [place] [address] Phone: tel: fax: Referral ID Status Reason Start Date Expiration Date V isits Requested Visits Authorized [id number] Closed Specialty Services Required 09/04/2023 09/03/2024 1 1 Encounter Details Date Type Department Care Team (Late st Contact Info) Description 09/04/2023 Orders Only [facility] Internal Medicine - Family Medicine [address] [place] [address] Alexey Connor DO [address], [place] [address] Abnormal stress test (Primary Dx) Social History [...] Diagnoses Order Schedule [facility] - [place], [place] Outpatient Referral Routine Abnormal stress test 1 Occurrences starting 09/04/2023 until 09/03/2024 documented as of this encounter Goals Goal Patient Goal Type Associated Problems Recent Progress Patient-Stated? Author go to [place] for therapy General Yes Ronit Sorensen LSW Note: Evaluation of progress towards goal: will DC from ED to SNF upon arrangements Long-Term Goals General Yes Amparo Nix LSW Note: Evaluation of progress towards goal: return to [facility] documented as of this encounter Visit Diagnoses Diagnosis Abnormal stress test- Primary Other nonspecific abnormal cardiovascular system function study documented in this encounter Care Teams Logging Truck Driver Relationship Specialty Start Date End Date Alexey Connor DO [address], [facility] [place] [address] PCP - General Family Medicine 03/27/22 documented as of this encounter
--- OUTSIDE RECORDS SUMMARY | 2025-01-29 14:42 | XMS_ITS | Encounter Summary ---
Author Organization [facility] Address [facility] [place]-[id number] [address] [place] [address] Care Team Providers Care Director Of Nuclear Medicine Name Role Phone Alexey Connor DO Primary Care Provider [phone] Encounter Details Date Type Department Care Team (Late st Contact Info) Description 05/29/2024 Orders Only [facility] Internal Medicine - Family Medicine [address] [place] [address] Alexey Connor DO [address], [facility] [place], [place] [id number] Social History Tobacco Use Types Packs/Day Years [...] Problems Recent Progress Patient-Stated? Author go to [place] for therapy General Yes Ronit Sorensen LSW Note: Evaluation of progress towards goal: will DC from ED to SNF upon arrangements Long-Term Goals General Yes Amparo Nix LSW Note: Evaluation of progress towards goal: return to [facility] documented as of this encounter Visit Diagnoses Not on filedocumented in this encounter Care Teams Director Of Nuclear Medicine Relationship Specialty Start Date End Date Alexey Connor DO [address], [facility] [address] PCP - General Family Medicine 03/27/22 documented as of this encounter
--- OUTSIDE RECORDS SUMMARY | 2025-01-29 14:42 | XMS_ITS | Encounter Summary ---
Author Organization [facility] Address [facility]-[id number] [address] [place] [address] Care Team Providers Care Butter Grader Name Role Phone Alexey Connor Primary Care Provider [phone] Encounter Details Date Type Department Care Team (Late st Contact Info) Description 10/23/2022 [facility] - Family Medicine [address] [place] [address] External, Scanning Provider Social History Tobacco Use [...] Problems Recent Progress Patient-Stated? Author go to [place] for therapy General Yes Ronit Sorensen LSW Note: Evaluation of progress towards goal: will DC from ED to SNF upon arrangements Long-Term Goals General Yes Amparo Nix LSW Note: Evaluation of progress towards goal: return to [facility] documented as of this encounter Procedures [...] on filedocumented in this encounter Care Teams Butter Grader Relationship Specialty Start Date End Date Alexey Connor DO [address] [facility], [place] [address] PCP - General Family Medicine 03/27/22 documented as of this encounter
--- OUTSIDE RECORDS SUMMARY | 2025-01-29 14:42 | XMS_ITS | Encounter Summary ---
Author Organization [facility] Address [facility] [place]-[id number] [address] [place] [address] Care Team Providers Care Preschool Principal Name Role Phone Alexey Connor Primary Care Provider [phone] Encounter Details Date Type Department Care Team (Late st Contact Info) Description 02/28/2022 Orders Only [facility] Internal Medicine - Family Medicine [address] [place] [address] External, Scanning Provider Social History Tobacco Use [...] Problems Recent Progress Patient-Stated? Author go to [place] for therapy General Yes Ronit Sorensen LSW Note: Evaluation of progress towards goal: will DC from ED to SNF upon arrangements Long-Term Goals General Yes Amparo Nix LSW Note: Evaluation of progress towards goal: return to [facility] documented as of this encounter Procedures [...] documented as of this encounter Care Teams Preschool Principal Relationship Specialty Start Date End Date Alexey Connor DO [address], [place] [address] PCP - General Family Medicine 03/27/22 documented as of this encounter
--- OUTSIDE RECORDS SUMMARY | 2025-01-29 14:43 | XMS_ITS | Encounter Summary ---
Author Organization [facility] Address [address] [place] [address] Care Team Providers Care Textile Machine Operator Name Role Phone Esteban Slater MD Primary Care Provider [phone] Source Comments In the event this information is protected by the Federal Confidentiality of Alcohol and Drug AbusePatient Records regulations: The Federal rules restrict any use of the information to criminally investigate or prosecute any alcohol or drug abuse patient.[facility] Encounter Details Date Type Department Care Team (Late st Contact Info) Description 2020 [place] [address] Provider, [facility] Medicare Coverage of Physical Exams Social [...] 1 02/09/2020 Area Deprivation Index Answer Date Kwmae rded National Score (1-100), lower number is lower ri sk Not on file 03/20/2020 State Score (1-10), lower number is lower risk N ot on file 03/20/2020 Data from: https://www.neighborhoodatlas.medicine.[facility].edu/. Last address used for calculation Not [...] on filedocumented in this encounter Care Teams Textile Machine Operator Relationship Specialty Start Date End Date Esteban Slater MD [address] [place] [address] PCP - General Family Medicine 07/21/18 documented as of this encounter
--- OUTSIDE RECORDS SUMMARY | 2025-01-29 14:43 | XMS_ITS | Encounter Summary ---
Author Organization [facility] Address [address] [place] [address] Care Team Providers Care Commercial Correspondent Name Role Phone Esteban Slater MD Primary Care Provider [phone] Source Comments In the event this information is protected by the Federal Confidentiality of Alcohol and Drug AbusePatient Records regulations: The Federal rules restrict any use of the information to criminally investigate or prosecute any alcohol or drug abuse patient.[facility] Encounter Details Date Type Department Care Team (Late st Contact Info) Description 05/27/2020 Get Medical Advice Neurology [address] [place], [place] [id number] Tai Hinojosa MD [address] [place] [address] RE: Non-Urgent Medical Question Social History Tobacco [...] N ot on file 03/20/2020 Data from: https://www.neighborhoodatlas.medicine.[facility]/. Last address used for calculation [...] filedocumented in this encounter Care Teams Commercial Correspondent Relationship Specialty Start Date End Date Esteban Slatre MD [address] [place] [address] PCP - General Family Medicine 07/21/18 documented as of this encounter
--- OUTSIDE RECORDS SUMMARY | 2025-01-29 14:43 | XMS_ITS | Encounter Summary ---
Author Organization [facility] Address [address] [place] [address] Care Team Providers Care Family Practice Nurse Practitioner Name Role Phone Esteban Slater MD Primary Care Provider [phone] Source Comments In the event this information is protected by the Federal Confidentiality of Alcohol and Drug AbusePatient Records regulations: The Federal rules restrict any use of the information to criminally investigate or prosecute any alcohol or drug abuse patient.[facility] Encounter Details Date Type Department Care Team (Late st Contact Info) Description 06/06/2020 Get Medical Advice Neurology [address] [place], [place] [id number] Tai Hinojosa MD [address] [place] [address] Non-Urgent Medical Question Social History Tobacco Use [...] on file 03/20/2020 Data from: https://www.neighborhoodatlas.medicine.[facility]/. Last address used for [...] on filedocumented in this encounter Care Teams Family Practice Nurse Practitioner Relationship Specialty Start Date End Date Esteban Slater MD [address] [place] [address] PCP - General Family Medicine 07/21/18 documented as of this encounter
--- OUTSIDE RECORDS SUMMARY | 2025-01-29 14:43 | XMS_ITS | Encounter Summary ---
Author Organization [facility] Address [address] [place] [address] Care Team Providers Care Manager Hiv Name Role Phone Esteban Slater MD Primary Care Provider [phone] Source Comments In the event this information is protected by the Federal Confidentiality of Alcohol and Drug AbusePatient Records regulations: The Federal rules restrict any use of the information to criminally investigate or prosecute any alcohol or drug abuse patient.[facility] Encounter Details Date Type Department Care Team (Late st Contact Info) Description 06/06/2020 Get Medical Advice Neurology [address] [place], [place] [id number] Tai Hinojosa MD [address] [place] [address] RE: Non-Urgent Medical Question Social History Tobacco [...] on file 03/20/2020 Data from: https://www.neighborhoodatlas.medicine.[facility]/. Last address used for calculation [...] filedocumented in this encounter Care Teams Manager Hiv Relationship Specialty Start Date End Date Esteban Slater MD [address] [place] [address] PCP - General Family Medicine 07/21/18 documented as of this encounter
--- OUTSIDE RECORDS SUMMARY | 2025-01-29 14:43 | XMS_ITS | Encounter Summary ---
Author Organization [facility] Address [facility] [place] [address] Care Team Providers Care Mapping Pilot Name Role Phone Esteban lSater MD Primary Care Provider [phone] Source Comments In the event this information is protected by the Federal Confidentiality of Alcohol and Drug AbusePatient Records regulations: The Federal rules restrict any use of the information to criminally investigate or prosecute any alcohol or drug abuse patient.[facility] Encounter Details Date Type Department Care Team (Late st Contact Info) Description 12/16/2019 Get Medical Advice Neurological [facility] [address] [place], [place] [phone] Tai Hinojosa MD [address] [place] [address] RE: Non-Urgent Medical Question Social [...] on filedocumented in this encounter Care Teams Mapping Pilot Relationship Specialty Start Date End Date Esteban Slater MD [address] [place] [address] PCP - General Family Medicine 07/21/18 documented as of this encounter
--- OUTSIDE RECORDS SUMMARY | 2025-01-29 14:43 | XMS_ITS | Encounter Summary ---
Author Organization [facility] Address [address] [place] [address] Care Team Providers Care Branch Maker Name Role Phone Esteban Slater MD Primary Care Provider [phone] Source Comments In the event this information is protected by the Federal Confidentiality of Alcohol and Drug AbusePatient Records regulations: The Federal rules restrict any use of the information to criminally investigate or prosecute any alcohol or drug abuse patient.[facility] Encounter Details Date Type Department Care Team (Late st Contact Info) Description 06/08/2020 Get Medical Advice Neurology [address] [place], [place] [phone] Tai Hinojosa MD [address] [place] [address] RE: Non-Urgent Medical Question Social History Tobacco [...] N ot on file 03/20/2020 Data from: https://www.neighborhoodatlas.medicine.[facility]/. Last address used for calculation Not [...] on filedocumented in this encounter Care Teams Branch Maker Relationship Specialty Start Date End Date Esteban Slater MD [address] [place] [address] PCP - General Family Medicine 07/21/18 documented as of this encounter
--- OUTSIDE RECORDS SUMMARY | 2025-01-29 14:43 | XMS_ITS | Encounter Summary ---
Author Organization [facility] Address [facility] [place] [address] Care Team Providers Care Commercial Technician Name Role Phone Esteban Slater MD Primary Care Provider [phone] Source Comments In the event this information is protected by the Federal Confidentiality of Alcohol and Drug AbusePatient Records regulations: The Federal rules restrict any use of the information to criminally investigate or prosecute any alcohol or drug abuse patient.[facility] Encounter Details Date Type Department Care Team (Late st Contact Info) Description 12/16/2019 Get Medical Advice Neurological [place] [address] [place], [place] [phone] Tai Hinojosa MD [address] [place] [address] RE: Non-Urgent Medical Question Social [...] filedocumented in this encounter Care Teams Commercial Technician Relationship Specialty Start Date End Date Esteban Slater MD [address] [place] [address] PCP - General Family Medicine 07/21/18 documented as of this encounter
--- OUTSIDE RECORDS SUMMARY | 2025-01-29 14:43 | XMS_ITS | Encounter Summary ---
Author Organization [facility] Address [address] [place] [address] Care Team Providers Care Licensed Massage Therapist Name Role Phone Esteban Slater MD Primary Care Provider [phone] Source Comments In the event this information is protected by the Federal Confidentiality of Alcohol and Drug AbusePatient Records regulations: The Federal rules restrict any use of the information to criminally investigate or prosecute any alcohol or drug abuse patient.[facility] Encounter Details Date Type Department Care Team (Late st Contact Info) Description 05/30/2020 Get Medical Advice Neurology [address] [place], [place] [id number] Tai Hinojosa MD [address] [place] [address] Non-Urgent Medical Question Social History Tobacco Use [...] on file 03/20/2020 Data from: https://www.neighborhoodatlas.medicine.[facility]/. Last address used for calculation Not [...] the patient and let her know that [facility] is not sure why they contacted her about only covering it one time. The medication has been approved and that when she goes to fill her medication there shouldn't be a problem. Mary Gibbs Ma documented in this encounter Plan of Treatment Not on file documented as of this encounter Visit Diagnoses Not on filedocumented in this encounter Care Teams Licensed Massage Therapist Relationship Specialty Start Date End Date Esteban Slater MD [address] [place] [address] PCP - General Family Medicine 07/21/18 documented as of this encounter
--- OUTSIDE RECORDS SUMMARY | 2025-01-29 14:43 | XMS_ITS | Encounter Summary ---
Author Organization [facility] Address [address] [place] [address] Care Team Providers Care Final Expense Agent Name Role Phone Esteban Slater MD Primary Care Provider [phone] Source Comments In the event this information is protected by the Federal Confidentiality of Alcohol and Drug AbusePatient Records regulations: The Federal rules restrict any use of the information to criminally investigate or prosecute any alcohol or drug abuse patient.[facility] Encounter Details Date Type Department Care Team (Late st Contact Info) Description 05/27/2020 Get Medical Advice Neurology [address] [place], [place] [id number] Tai Hinojosa MD [address] [place] [address] RE: Non-Urgent Medical Question Social History Tobacco [...] ot on file 03/20/2020 Data from: https://www.neighborhoodatlas.medicine.[facility]/. Last address used for calculation Not on file 03/20/2020 Comments Unknown Sex and Gender Information Value Date Recorded Sex Assigned at Not on file Legal Sex Female 9:36 AM EST Gender Identity Not on file Sexual Orientation Not on file documented as of this encounter Miscellaneous Notes * Telephone Encounter - Mary Gibbs) - 05/30/2020 10:23 AM EST Called [facility] and am waiting on a call [...] on filedocumented in this encounter Care Teams Final Expense Agent Relationship Specialty Start Date End Date Esteban Slater MD [address] [place] [address] PCP - General Family Medicine 07/21/18 documented as of this encounter
--- OUTSIDE RECORDS SUMMARY | 2025-01-29 14:43 | XMS_ITS | Encounter Summary ---
Author Organization [facility] Address [address] [place] [address] Care Team Providers Care Tank House Supervisor Name Role Phone Esteban Slater MD Primary Care Provider [phone] Source Comments In the event this information is protected by the Federal Confidentiality of Alcohol and Drug AbusePatient Records regulations: The Federal rules restrict any use of the information to criminally investigate or prosecute any alcohol or drug abuse patient.[facility] Encounter Details Date Type Department Care Team (Late st Contact Info) Description 05/24/2020 Get Medical Advice Neurology [address] [place], [place] [id number] Tai Hinojosa MD [address] [place] [address] RE: Non-Urgent Medical Question Social History Tobacco [...] N ot on file 03/20/2020 Data from: https://www.neighborhoodatlas.medicine.[facility]/. Last address used for calculation Not [...] on filedocumented in this encounter Care Teams Tank House Supervisor Relationship Specialty Start Date End Date Esteban Slater MD [address] [place] [address] PCP - General Family Medicine 07/21/18 documented as of this encounter
--- OUTSIDE RECORDS SUMMARY | 2025-01-29 14:43 | XMS_ITS | Clinical Summary ---
Author Organization [facility] Address [address] [place] [address] Care Team Providers Care Continuous Crusher Operator Name Role Phone Esteban Slater MD Primary Care Provider [phone] Allergies Active Allergy Reactions Criticality Noted Date [...] AM EDT Office Visit [facility] [address] [place] [address] Dionicio Trevizo MD Acquired hypothyroidism (Primary Dx); Movement disorder 11/04/2024 Bamboo flowsheet [facility] [place] [facility] [address] [place] [address] Dionicio Trevizo MD from Last 3 Months [...] [facility] [address] [place] [address] Dionicio Trevizo MD [address] [place] [address] Insurance [employer] MEDICARE [place]ICAID [place] Care Teams Continuous Crusher Operator Relationship Specialty Start Date End Date Esteban Slater MD PCP - General Family Medicine 03/24/24
--- OUTSIDE RECORDS SUMMARY | 2025-01-29 14:43 | XMS_ITS | Encounter Summary ---
Author Organization [facility] Address [address] [place] [address] Care Team Providers Care Clinical Trials Data Coordinator Name Role Phone Esteban Slater MD Primary Care Provider [phone] Source Comments In the event this information is protected by the Federal Confidentiality of Alcohol and Drug AbusePatient Records regulations: The Federal rules restrict any use of the information to criminally investigate or prosecute any alcohol or drug abuse patient.[facility] Encounter Details Date Type Department Care Team (Late st Contact Info) Description 10/20/2019 Patient Msg Neurology [address] [place] [address] Tai Hinojosa MD [address] [place] [address] RE:phone call Social History Tobacco Use Types [...] filedocumented in this encounter Care Teams Clinical Trials Data Coordinator Relationship Specialty Start Date End Date Esteban Slater MD [address] [place] [address] PCP - General Family Medicine 07/21/18 documented as of this encounter
--- OUTSIDE RECORDS SUMMARY | 2025-01-29 14:43 | XMS_ITS | Encounter Summary ---
Author Organization [facility] Address [address] [place] [address] Care Team Providers Care Liquefied Natural Gas Plant Operator Name Role Phone Esteban Slater MD Primary Care Provider [phone] Source Comments In the event this information is protected by the Federal Confidentiality of Alcohol and Drug AbusePatient Records regulations: The Federal rules restrict any use of the information to criminally investigate or prosecute any alcohol or drug abuse patient.[facility] Encounter Details Date Type Department Care Team (Late st Contact Info) Description 05/27/2020 Get Medical Advice Neurology [address] [place], [place] [id number] Tai Hinojosa MD [address] [place] [address] RE: Non-Urgent Medical Question Social History Tobacco [...] N ot on file 03/20/2020 Data from: https://www.neighborhoodatlas.medicine.[facility]/. Last address used for calculation Not [...] on filedocumented in this encounter Care Teams Liquefied Natural Gas Plant Operator Relationship Specialty Start Date End Date Esteban Slater MD [address] [place] [address] PCP - General Family Medicine 07/21/18 documented as of this encounter
--- OUTSIDE RECORDS SUMMARY | 2025-01-29 14:43 | XMS_ITS | Encounter Summary ---
Author Organization [facility] Address [address] [place] [address] Care Team Providers Care Lecturer Of Portuguese Name Role Phone Esteban Slater MD Primary Care Provider Source Comments In the event this information is protected by the Federal Confidentiality of Alcohol and Drug AbusePatient Records regulations: The Federal rules restrict any use of the information to criminally investigate or prosecute any alcohol or drug abuse patient.[facility] Encounter Details Date Type Department Care Team (Late st Contact Info) Description 02/14/2020 Get Medical Advice Neurological [facility] [address] [place], [place] [phone] Tai Hinojosa MD [address] [place] [address] RE: Non-Urgent Medical Question Social [...] on filedocumented in this encounter Care Teams Lecturer Of Portuguese Relationship Specialty Start Date End Date Esteban Slater MD [address] [place] [address] PCP - General Family Medicine 07/21/18 documented as of this encounter
--- OUTSIDE RECORDS SUMMARY | 2025-01-29 14:43 | XMS_ITS | Encounter Summary ---
Author Organization [facility] Address [address] [place] [address] Care Team Providers Care Shoemaker Custom Name Role Phone Esteban Slater MD Primary Care Provider [phone] Source Comments In the event this information is protected by the Federal Confidentiality of Alcohol and Drug AbusePatient Records regulations: The Federal rules restrict any use of the information to criminally investigate or prosecute any alcohol or drug abuse patient.[facility] Encounter Details Date Type Department Care Team (Late st Contact Info) Description 05/27/2020 Get Medical Advice Neurology [address] [place], [place] [phone] Tai Hinojosa MD [address] [place] [address] RE: Non-Urgent Medical Question Social History Tobacco [...] N ot on file 03/20/2020 Data from: https://www.neighborhoodatlas.medicine.[facility]/. Last address used for calculation Not on [...] on filedocumented in this encounter Care Teams Shoemaker Custom Relationship Specialty Start Date End Date Esteban Slater MD [address] [place] [address] PCP - General Family Medicine 07/21/18 documented as of this encounter
--- OUTSIDE RECORDS SUMMARY | 2025-01-29 14:43 | XMS_ITS | Encounter Summary ---
Author Organization [facility] Address [facility] [place] [address] Care Team Providers Care Salesperson Used Cars Name Role Phone Esteban Slater MD Primary Care Provider [phone] Source Comments In the event this information is protected by the Federal Confidentiality of Alcohol and Drug AbusePatient Records regulations: The Federal rules restrict any use of the information to criminally investigate or prosecute any alcohol or drug abuse patient.[facility] Encounter Details Date Type Department Care Team (Late st Contact Info) Description 10/26/2019 Get Medical Advice Neurological Baptism [address] [place], [place] [phone] Tai Hinojosa MD [address] [place] [address] RE: Non-Urgent Medical Question Social [...] on filedocumented in this encounter Care Teams Salesperson Used Cars Relationship Specialty Start Date End Date Esteban Slater MD [address] [place] [address] PCP - General Family Medicine 07/21/18 documented as of this encounter
--- OUTSIDE RECORDS SUMMARY | 2025-01-29 14:43 | XMS_ITS | Encounter Summary ---
Author Organization [facility] Address [address] [place] [address] Care Team Providers Care Strip Feeder Name Role Phone Esteban Slater MD Primary Care Provider [phone] Source Comments In the event this information is protected by the Federal Confidentiality of Alcohol and Drug AbusePatient Records regulations: The Federal rules restrict any use of the information to criminally investigate or prosecute any alcohol or drug abuse patient.[facility] Encounter Details Date Type Department Care Team (Late st Contact Info) Description 02/21/2020 Get Medical Advice Neurological Pentecostalism [address] [place], [place] [phone] Tai Hinojosa MD [address] [place] [address] RE: Non-Urgent Medical Question Social [...] tremor documented in this encounter Care Teams Strip Feeder Relationship Specialty Start Date End Date Esteban Slater MD [address] [place] [address] PCP - General Family Medicine 07/21/18 documented as of this encounter
--- OUTSIDE RECORDS SUMMARY | 2025-01-29 14:43 | XMS_ITS | Encounter Summary ---
Author Organization [facility] Address [facility] [place] [address] Care Team Providers Care Berry Grower Name Role Phone Esteban Slater MD Primary Care Provider [phone] Source Comments In the event this information is protected by the Federal Confidentiality of Alcohol and Drug AbusePatient Records regulations: The Federal rules restrict any use of the information to criminally investigate or prosecute any alcohol or drug abuse patient.[facility] Encounter Details Date Type Department Care Team (Late st Contact Info) Description 02/11/2020 Patient Msg Neurological Jainism [address] [place], [place] [phone] Tai Hinojosa MD [address] [place] [address] today's visit Social History Tobacco [...] on filedocumented in this encounter Care Teams Berry Grower Relationship Specialty Start Date End Date Esteban Slater MD [address] [place] [address] PCP - General Family Medicine 07/21/18 documented as of this encounter
--- OUTSIDE RECORDS SUMMARY | 2025-01-29 14:43 | XMS_ITS | Encounter Summary ---
Author Organization [facility] Address [address] [place] [address] Care Team Providers Care Director State Pharmacy Name Role Phone Esteban Slater MD Primary Care Provider [phone] Source Comments In the event this information is protected by the Federal Confidentiality of Alcohol and Drug AbusePatient Records regulations: The Federal rules restrict any use of the information to criminally investigate or prosecute any alcohol or drug abuse patient.[facility] Encounter Details Date Type Department Care Team (Late st Contact Info) Description 06/13/2020 Get Medical Advice Neurology [address] [place], [place] [phone] Tai Hinojosa MD [address] [place] [address] Non-Urgent Medical Question Social History Tobacco Use [...] Data from: https://www.neighborhoodatlas.medicine.[facility]/. Last address used [...] filedocumented in this encounter Care Teams Director State Pharmacy Relationship Specialty Start Date End Date Esteban Slater MD [address] [place] [address] PCP - General Family Medicine 07/21/18 documented as of this encounter
--- OUTSIDE RECORDS SUMMARY | 2025-01-29 14:43 | XMS_ITS | Encounter Summary ---
Author Organization [facility] Address [address] [place] [address] Care Team Providers Care Senior Stock Plan Administrator Name Role Phone Esteban Slater MD Primary Care Provider [phone] Source Comments In the event this information is protected by the Federal Confidentiality of Alcohol and Drug AbusePatient Records regulations: The Federal rules restrict any use of the information to criminally investigate or prosecute any alcohol or drug abuse patient.[facility] Encounter Details Date Type Department Care Team (Late st Contact Info) Description 05/23/2020 Get Medical Advice Neurology [address] [place], [place] [phone] Tai Hinojosa MD [address] [place] [address] RE: Non-Urgent Medical Question Social History Tobacco [...] N ot on file 03/20/2020 Data from: https://www.neighborhoodatlas.medicine.[facility]/. Last address used [...] filedocumented in this encounter Care Teams Senior Stock Plan Administrator Relationship Specialty Start Date End Date Esteban Slater MD [address] [place] [address] PCP - General Family Medicine 07/21/18 documented as of this encounter
--- OUTSIDE RECORDS SUMMARY | 2025-01-29 14:43 | XMS_ITS | Encounter Summary ---
Author Organization [facility] Address [address] [place] [address] Care Team Providers Care Magazine Designer Name Role Phone Esteban Slater MD Primary Care Provider [phone] Source Comments In the event this information is protected by the Federal Confidentiality of Alcohol and Drug AbusePatient Records regulations: The Federal rules restrict any use of the information to criminally investigate or prosecute any alcohol or drug abuse patient.[facility] Encounter Details Date Type Department Care Team (Late st Contact Info) Description 06/13/2020 Get Medical Advice Neurology [address] [place], [place] [phone] Tai Hinojosa MD [address] [place] [address] RE: Non-Urgent Medical Question Social History Tobacco [...] N ot on file 03/20/2020 Data from: https://www.neighborhoodatlas.medicine.[facility]/. Last address used for calculation Not [...] on filedocumented in this encounter Care Teams Magazine Designer Relationship Specialty Start Date End Date Esteban Slater MD [address] [place] [address] PCP - General Family Medicine 07/21/18 documented as of this encounter
--- OUTSIDE RECORDS SUMMARY | 2025-01-29 14:43 | XMS_ITS | Encounter Summary ---
Author Organization [facility] Address [address] [place] [address] Care Team Providers Care Tumbling And Rolling Supervisor Name Role Phone Esteban Slater MD Primary Care Provider [phone] Source Comments In the event this information is protected by the Federal Confidentiality of Alcohol and Drug AbusePatient Records regulations: The Federal rules restrict any use of the information to criminally investigate or prosecute any alcohol or drug abuse patient.[facility] Encounter Details Date Type Department Care Team (Late st Contact Info) Description 03/26/2020 Patient Msg Endocrinology [address] [place], [place] [phone] Provider, [facility] Message from Office of Tai [...] ot on file 03/20/2020 Data from: https://www.neighborhoodatlas.medicine.[facility].edu/. Last address used for calculation Not on [...] on filedocumented in this encounter Care Teams Tumbling And Rolling Supervisor Relationship Specialty Start Date End Date Esteban Slater MD [address] [place] [address] PCP - General Family Medicine 07/21/18 documented as of this encounter
[2025-01-29 15:00] VITALS: PULSE 78
--- NOTE | 2025-01-29 15:06 | PC.NURSE ---
patient was assisted into bed with 4 x-ray team members from her wheel chair. shoulder x-ray taken. pulse motor, sensory intact to left wrist.
--- NOTE | 2025-01-29 15:12 | PC.NURSE ---
medicated for pain, reports pain is 10/10
[2025-01-29] MEDS: HYDROCODONE/ACET 5-325 MG TABLET 1 TAB PO (15:22)
--- NOTE | 2025-01-29 15:31 | ED.UPPEXIN1 ---
HPI HPI - Extremity Injury (Upper) General Chief Complaint: Extremity Injury, Upper Stated Complaint: FALL L SHOULDER DISLOCATION Time Seen by Provider: 01/29/25 14:52 Mode of arrival: Wheelchair History of Present Illness HPI narrative: 69-year-old female was brought to the emergency room by private car. Patient is at a nursing facility and was reported that she had a fall January 23. Today it was noticed while they were bathing her that her right upper extremity appeared deformed. They had not x-ray performed at the facility and showed that she had a questionable dislocation fracture. She was brought here by private car. Patient does have a history of altered mental status but she is alert and oriented to place and time at this point. She said she had a fall she missed her step while using her walker falling backwards. She has had no other falls since the that she reports. Right upper extremity is neurovascularly intact he does have deformity noted on initial examination. Related Data Home Medications ?Medication ?Instructions ?Recorded ?Confirmed amlodipine 10 mg tablet 10 mg PO Q24H 04/03/23 12/24/23 atorvastatin 40 mg tablet 40 mg PO Q24H 04/03/23 12/24/23 buspirone 10 mg tablet 10 mg PO Q12H 04/03/23 12/24/23 calcium 600 mg (as 1 tab PO BID 04/03/23 12/24/23 carbonate)-vitamin D3 10 mcg (400 unit) tablet (Calcium with Vitamin D) clonazepam 0.5 mg tablet 0.5 mg PO Q8H 04/03/23 12/24/23 cyclobenzaprine 10 mg tablet 10 mg PO Q8H 04/03/23 12/24/23 deutetrabenazine 12 mg tablet 12 mg PO Q12H 04/03/23 12/24/23 (Austedo) dextromethorphan-guaifenesin 10 10 ml PO Q6H 04/03/23 05/11/23 mg-100 mg/5 mL oral syrup fluticasone propionate 50 1 spray intranasal Q24H 04/03/23 12/24/23 mcg/actuation nasal spray,suspension gabapentin 300 mg capsule 300 mg PO Q12H 04/03/23 12/24/23 gabapentin 600 mg tablet 600 mg PO Q24H 04/03/23 12/24/23 loperamide 2 mg capsule 2 mg PO Q6H PRN loose stool 04/03/23 05/11/23 (Anti-Diarrheal (loperamide)) pantoprazole 40 mg tablet,delayed 40 mg PO DAILY 04/03/23 12/24/23 release (Protonix) polyethylene glycol 3350 17 17 g PO DAILY 04/03/23 05/11/23 gram/dose oral powder (Miralax) primidone 50 mg tablet 250 mg PO Q24H 04/03/23 12/24/23 sucralfate 1 gram tablet 1 g PO Q6H 04/03/23 05/11/23 trazodone 100 mg tablet 100 mg PO Q24H 04/03/23 12/24/23 alendronate 70 mg tablet 70 mg PO .weekly 12/24/23 12/24/23 aspirin 325 mg capsule 325 mg PO BID 12/24/23 12/24/23 carbamazepine 200 mg tablet 200 mg PO Q8H 12/24/23 12/24/23 metoprolol succinate 50 mg 50 mg PO DAILY 12/24/23 12/24/23 tablet,extended release 24 hr mirtazapine 15 mg tablet 15 mg PO .hs 12/24/23 12/24/23 sodium chloride 1 gram tablet 1,000 mg PO DAILY 12/24/23 12/24/23 Previous Rx's ?Medication ?Instructions ?Recorded ferrous sulfate 325 mg (65 mg 325 mg PO BID 30 days #60 tabs 05/12/23 iron) tablet levothyroxine 100 mcg tablet 100 mcg PO ACB 30 days #30 tabs 05/12/23 acetaminophen 300 mg-codeine 30 mg 1 tab PO Q6H PRN pain 5 days #20 12/01/24 tablet tabs Allergies Allergy/AdvReac Type Severity Reaction Status Date / Time erythromycin base AdvReac Mild Hives Verified 12/01/24 20:57 Opioid HPI Opioid Management Most Recent Pain and Opioid Data: Last Pain Scale 10 Today, 15:22 Last MAR Pain Assessment Today, 15:22 Ur Phencyclidine Scrn, (NEGATIVE) Negative 10/24/23, 07:09 Review of Systems ROS Status of ROS 10 or more systems reviewed and unremarkable except as noted in history and below [facility] Medical History (Updated 01/29/25 @ 16:16 by Willow Escobar) Anxiety ?F41.9 - Anxiety disorder, unspecified (ICD-10) Hyperlipidemia ?E78.5 - Hyperlipidemia, unspecified (ICD-10) Chronic hyponatremia ?E87.1 - Hypo-osmolality and hyponatremia (ICD-10) Rectal prolapse ?K62.3 - Rectal prolapse (ICD-10) Tremors of nervous system ?R25.1 - Tremor, unspecified (ICD-10) Tardive dyskinesia ?G24.01 - Drug induced subacute dyskinesia (ICD-10) Hypertension ?I10 - Essential (primary) hypertension (ICD-10) Surgical History H/O tubal ligation ?Z98.51 - Tubal ligation status (ICD-10) Family History Father Family history of cancer Family history of myocardial infarction Family history of hypertension Sister Family history of cancer Mother Family history of stroke Family history of hypertension Social History Within the past year, how often did you have a drink containing alcohol: never Score interpretation: A score less than 3 is consistent with normal alcohol consumption. Smoking status: Former smoker Non-prescribed substance use: denies use Highest level of school completed/degree received: high school graduate Little interest or pleasure in doing things: not at all Feeling down, depressed, or hopeless: not at all Exam Narrative Exam Narrative: All Systems are negative except as noted/marked.All systems reviewed and otherwise negative Nurses note and vital signs reviewed and patient is not hypoxic. General: The patient appears well and in no apparent distress. Patient is resting comfortably on cart. Skin: Warm, dry, no pallor noted. There is no rash noted. Head: Normocephalic, atraumatic Eye: Normal conjunctiva, no drainage, EOMI. PERRL Musculoskeletal: Right upper extremity deformity, no pain to the elbow or distal wrist on exam, patient does have pain with range of motion of the upper extremity. Suspected dislocation or fracture of the humerus. The patient has no evidence of calf tenderness, no pitting edema, symmetrical pulses noted bilaterally Neurological: A&O x4, normal speech Psychiatric: Cooperative Constitutional Vital Signs, click to edit/add: Last Vital Signs Temp 98.1 F 01/29/25 14:37 Pulse 88 01/29/25 14:37 Resp 20 01/29/25 14:37 BP 142/107 H 01/29/25 14:37 Pulse Ox 92 L 01/29/25 14:37 Course Vital Signs Vital signs: Vital Signs Temperature 98.1 F 01/29/25 14:37 Pulse Rate 88 01/29/25 14:37 Respiratory Rate 20 01/29/25 14:37 Blood Pressure 142/107 H 01/29/25 14:37 Pulse Oximetry 92 L 01/29/25 14:37 Temperature 98.1 F 01/29/25 14:37 Pulse Rate 88 01/29/25 14:37 Respiratory Rate 20 01/29/25 14:37 Blood Pressure 142/107 H 01/29/25 14:37 Pulse Oximetry 92 L 01/29/25 14:37 MDM - Extremity Injury (Upper) MDM Narrative Medical decision making narrative: 69-year-old female was brought to the emergency room by private car. Patient is at a nursing facility and was reported that she had a fall January 23. Today it was noticed while they were bathing her that her right upper extremity appeared deformed. They had not x-ray performed at the facility and showed that she had a questionable dislocation fracture. She was brought here by private car. Patient does have a history of altered mental status but she is alert and oriented to place and time at this point. She said she had a fall she missed her step while using her walker falling backwards. She has had no other falls since the that she reports. Right upper extremity is neurovascularly intact he does have deformity noted on initial examination. Upon arrival to the emergency room, x-rays were established. Patient has a periprosthetic fracture along the humeral component of the right shoulder gastroplasty and hardware area. Bony components are also detached from the glenoid with fractures of screws. I did speak to Dr. Cohen orthopedist on-call. He suggested placing be placed in a splint. She will be discharged home with pain medication. Patient was medicated here with [place] and Zofran. Sling was applied by nursing staff extremity neurovascular intact before and after application of the sling. Family members at bedside and we did explain that they should follow-up with Dr. Cohen's office. Dr. Cohen said he would reach out his office would reach out to her as well. Patient and family members agree with plan of care. Differential Diagnosis Differential diagnosis: Likely dislocation of shoulder and fracture of humerus Medical Records Attestation: I reviewed the patient's medical records. Imaging Data shoulder: Radiologist's impression: ITS Impressions Elbow X-Ray 01/29/25 00:00 IMPRESSION: No radiographic evidence of fracture or dislocation. There is soft tissue swelling medially along the distal humerus, elbow, and proximal forearm. Impression dictated by: Brown Bettencourt M.D. 01/29/2025 3:12 PM Dictation Location: [employer] Electronically authenticated by: [id number] Y Date: 01/29/2025 15:12 Shoulder X-Ray 01/29/25 00:00 IMPRESSION: There is a periprosthetic fracture along the humeral component of the right shoulder arthroplasty hardware. The bony components is also detached from the glenoid with fracture of the screws. A retained fragment is noted along the superior aspect of the glenoid. Impression dictated by: Brown Bettencourt M.D. 01/29/2025 3:11 PM Dictation Location: [employer] Electronically authenticated by: [id number] Y Date: 01/29/2025 15:11 Discharge Plan Discharge Chief Complaint: Extremity Injury, Upper Clinical Impression: Fracture of humerus Patient Disposition: Home, Self-Care Time of Disposition Decision: 16:15 Condition: Good Prescriptions / Home Meds: No Action levothyroxine 100 mcg Tablet 100 mcg PO ACB 30 Days Qty: 30 0RF ferrous sulfate 325 mg (65 mg iron) Tablet 325 mg PO BID 30 Days Qty: 60 0RF aspirin 325 mg capsule 325 mg PO BID carbamazepine 200 mg tablet 200 mg PO Q8H alendronate 70 mg tablet 70 mg PO .weekly metoprolol succinate 50 mg tablet extended release 24 hr 50 mg PO DAILY mirtazapine 15 mg tablet 15 mg PO .hs sodium chloride 1 gram tablet 1,000 mg PO DAILY acetaminophen-codeine 300-30 mg tablet 1 tab PO Q6H PRN (Reason: pain) 5 Days Qty: 20 0RF amlodipine 10 mg tablet 10 mg PO Q24H atorvastatin 40 mg tablet 40 mg PO Q24H [place] 12 mg tablet 12 mg PO Q12H buspirone 10 mg tablet 10 mg PO Q12H clonazepam 0.5 mg tablet 0.5 mg PO Q8H cyclobenzaprine 10 mg tablet 10 mg PO Q8H fluticasone propionate 50 mcg/actuation spray,suspension 1 spray INTRANASAL Q24H gabapentin 300 mg capsule 300 mg PO Q12H gabapentin 600 mg tablet 600 mg PO Q24H primidone 50 mg tablet 250 mg PO Q24H sucralfate 1 gram tablet 1 g PO Q6H trazodone 100 mg tablet 100 mg PO Q24H pantoprazole [Protonix] 40 mg tablet,delayed release (DR/EC) 40 mg PO DAILY polyethylene glycol 3350 [Miralax] 17 gram/dose powder 17 g PO DAILY loperamide [Anti-Diarrheal (loperamide)] 2 mg capsule 2 mg PO Q6H PRN (Reason: loose stool) dextromethorphan-guaifenesin 10-100 mg/5 mL syrup 10 ml PO Q6H calcium carbonate-vitamin D3 [Calcium with Vitamin D] 600 mg-10 mcg (400 unit) tablet 1 tab PO BID Print Language: Romansh Instructions: Arm Fracture in Adults (DC), How to Use a Sling (ED), P.R.I.C.E. Treatment (ED) Referrals: JOHN POLO [Primary Care Provider, Family Practice] - 1 week Thomas Turner DO [Physician, Orthopedics] - 02/01/25 Referral Note: call office for follow up
[2025-01-29] MEDS: ONDANSETRON 4 MG RAPDIS TABLET SL (16:01)
[2025-01-29 16:30] VITALS: BP 157/111; PULSE 82; O2SAT 98
[2025-01-29] MEDS: MORPHINE SULFATE 2 MG/ML SYRINGE IM (16:49)
--- NOTE | 2025-01-29 17:24 | PC.NURSE ---
16:52- patient report given to Adeola at [facility]. Aware patient is on her way back to facility via wheelchair van
== END 2025-01-29 17:14 | disposition home or self-care (01) ==
PROVIDERS: Emergency Provider Emergency Medicine; PCP Family Medicine
DX: S42.201A Unspecified fracture of upper end of right humerus, initial encounter for closed fracture (principal); W18.39XA Other fall on same level, initial encounter; Z87.891 Personal history of nicotine dependence
CPT/HCPCS: 73030; 73070; 96372; 99285; J2270; Q0162

== ENCOUNTER 2025-02-04 07:51 | Outpatient (OUT) | payer MEDICARE, MEDICAID, SELFPAY ==
--- OUTSIDE RECORDS SUMMARY | 2025-01-22 12:20 | XMS_ITS | Encounter Summary ---
Author Organization [facility] Address [address] [place] [address] Care Team Providers Care Cut Out Marker Name Role Phone Alexey Connor DO Primary Care Provider [phone] Reason for Visit * ReasonCommentsFollow-upPatient is here today for a 6 month follow up HypertensionCoronary Artery DiseaseHyperlipidemia Encounter Details DateTypeDepartmentCare Team (Latest Contact Info)Yxnlellqeuq78/10/2025 12:20 PM EDTOffice Visit [facility] [address] [place] [address] Marlien Sandoval MD [address] [place] [address] Generalized muscle ache (Primary Dx); Coronary artery disease involving [place] coronary artery of [place] heart without angina pectoris; Primary hypertension; Pure hypercholesterolemia Social History Tobacco UseTypesPacks/DayYears UsedDateSmoking Tobacco: FormerCigarettes Smokeless Tobacco: NeverAlcohol UseStandard Drinks/WeekCommentsNever0 (1 standard drink = 0.6 oz pure alcohol)[facility] UtilitiesAnswerDate RecordedIn the past 12 months has the electric, gas, oil, or water [employer] threatened to shut off services in your home?No01/16/2024Humiliation, Afraid, Rape, and Kick questionnaireAnswerDate RecordedWithin the last year, have you been afraid of your partner or ex-partner?No06/25/2024Emotionally AbusedNot on file06/25/2024 Physically AbusedNot on file06/25/2024Sexually AbusedNot on file06/25/2024 Overall Financial Resource Strain (CARDIA)AnswerDate RecordedHow hard is it for you to pay for the very basics like food, housing, medical care, and heating?Not very hard01/16/2024HQ-2AnswerDate RecordedPatient Health Questionnaire-2 Score0 06/25/2024TransportationAnswerDate RecordedIn the past 12 months, has lack of transportation kept you from medical appointments or from getting medications?No 01/16/2024Lack of Transportation (Non-Medical)Not on file01/16/2024Housing Stability Vital SignAnswerDate RecordedUnable to Pay for Housing in the Last YearNot on file01/16/2024Number of Places Lived in the Last YearNot on file 01/16/2024In the last 12 months, was there a time when you did not have a steady place to sleep or slept in ashelter (including now)?No01/16/2024Hunger Vital SignAnswerDate RecordedWithin the past 12 months, you worried that your food would run out before you got the money to buymore.Never true01/16/2024an Out of Food in the Last YearNot on file01/16/2024CommentsNoSex and Gender InformationValueDate RecordedSex Assigned at QdyinCjalit62/01/2025 2:06 PM EDT Legal IvgUygjeu47/30/2022 12:32 AM EDTGender UupotyhhHadgkn73/01/2025 2:06 PM EDTSexual OrientationHeterosexual or Utwfjwdx24/01/2025 2:06 PM EDTdocumented as of this encounter Last Filed Vital Signs Vital SignReadingTime TakenCommentsBlood Lsorvdzn699/6201/22/2025 12:41 PM EDT Bytgh921101/22/2025 12:41 PM EDTTemperature--Respiratory Rate--Oxygen Saturation 94%01/22/2025 12:41 PM EDTInhaled Oxygen Concentration--Weight--Zuxyte206 cm (5' 3 )01/22/2025 12:41 PM EDTBody Mass Index--documented in this encounter Functional Status * BPAnswerDate of OxhtgabyzxEwxxyg004/6210/01/2025 12:41 PM EDAleida Peraza MA * PulseAnswerDate of MorocybvxwSebwfi7637/01/2025 12:41 PM EDAleida Peraza MA * Patient PositionAnswerDate of KbpxgeiuthUjlfjrKfhcmjg37/10/2025 12:41 PM EDT Aleida Wu MA * BPAnswerDate of YmaoesufjfNvdynw844/6210/01/2025 12:41 PM EDAleida Peraza MA * PulseAnswerDate of BzoueutwbhXtzrib3248/01/2025 12:41 PM EDAleida Peraza MA * RqN0XnmkrkZnuk of PtxqsejrarWkkmqq3622/10/2025 12:41 PM Aleida Park MA * BP LocationAnswerDate of AssessmentAuthorRight arm01/22/2025 12:41 PM EDT Aleida Wu MA * Patient PositionAnswerDate of AequtxjydnPnknujQnlrtww16/10/2025 12:41 PM EDT Aleida Wu MA documented as of this encounter Progress Notes * Marline Sandoval MD - 01/22/2025 12:20 PM EDT Images from the original note were not included. [place] [facility] Note Reason for cardiology [...] evaluation she underwent [facility] nuclear [facility]res[facility]est at [facility] which did not show definite perfusion defect [...] states that her blood pressure at the custodial go sometimes up to 200s and sometimes itsend normal in the 130s. She used to smoke half pack per day for about 10 years however she quit in the . Regarding family history her father secondary to [place] at age 74 and her mother secondary tostroke in her 70s. ROS: All systems were reviewed and they were negative except for the positive findings noted above in the history Past Medical History She has a past medical history of Anemia, Anxiety, Arthritis, Chronic kidney disease, Closed fracture [facility] neck [facility] femur ([facility] (06/16/2020), COVID-19 (07/04/2023), Dysphagia, Epilepsy ([facility]), GERD (gastroesophageal reflux disease), Hyperlipidemia, Hypertension, Major depressive disorder, Osteoa rthritis, Peripheral vascular disease, Rectal prolapse, Rhabdomyolysis (07/04/2023), Sepsis ([facility]) (07/04/2023), Tardive dyskinesia, and [...] leads Lexiscan Nuclear stress test 08/26/2023 at [facility] Baseline ECG indicates sinus rhythm and non-specific [...] risk. Clinical correlation recommended. Echo 12/23/2020 at [facility] Left Ventricle: There is moderate increased [...] for about 3 weeks and let the custodial update us after that if her muscular pain has improved, if so we will consider other statin probably small dose of Crestor Continue low salt low fat diet Follow-up in 6 months Marline Sandoval MD,FACC documented in this encounter Plan of Treatment Not on file documented as of this encounter Visit Diagnoses Diagnosis Generalized muscle ache- Primary Coronary artery disease involving [place] coronary artery of [place] heart without angina pectoris Primary hypertension Unspecified essential hypertension Pure hypercholesterolemia documented in this encounter Care Teams Team MemberRelationshipSpecialtyStart DateEnd Date Alexey Connor DO PCP - GeneralFamily Kzumwoit23/21/23documented as of this encounter
--- NOTE | 2025-02-04 | XR_ITS ---
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 The bony structures are osteopenic. There is a comminuted fracture at the neck of the humerus with apex medial angulation, similar to the prior. A shoulder prosthesis is again seen. There is no significant change in appearance. The articular aspect of the prosthesis is directed superiorly. There is similar lucency at the glenoid and undersurface of the acromion where there is loss of the acromiohumeral interval. There are old right rib fractures. No soft tissue abnormalities are noted. XR/XR shoulder RT min 2V IMPRESSION: SIMILAR FINDINGS RELATED TO THE SHOULDER AND PATIENT'S PROSTHESIS. Impression dictated by: Ligia Carrasquillo M.D. 02/04/2025 11:52 AM Dictation Location: [place] [address] Electronically authenticated by: [id number] Y Date: 02/04/2025 11:52
--- OUTSIDE RECORDS SUMMARY | 2025-02-04 07:53 | XMS_ITS | Clinical Summary ---
Author Organization [facility] Address [address] [place] [id number] Care Team Providers Care Heel Burnisher Name Role Phone Esteban Slater MD Primary Care Provider [phone] Allergies Active AllergyReactionsCriticalityNoted DateCommentsErythromycinUnknown 05/14/2023 Medications MedicationSigDispense QuantityRefillsLast FilledStart DateEnd DateStatus escitalopram oxalate (LEXAPRO) 20 mg tablet Take 20 mg by mouth once daily.Active alendronate (FOSAMAX) 70 mg tablet once each week.Active pravastatin (PRAVACHOL) 40 mg tablet Take 40 mg by mouth once daily.Active Magnesium 250 mg tab Take 250 mg by mouth.Active ascorbic acid, vitamin C, (VITAMIN C WITH NOVA HIPS) 500 mg tablet Take 500 mg by mouth once daily.Active Ferrous Sulfate 325 mg (65 mg iron) cpER Take by mouth.Active pantoprazole DR (PROTONIX) 40 mg tablet Take 40 mg by mouth twice daily.Active busPIRone (BUSPAR) 5 mg tablet Indications:AnxietyTake 1 tablet by mouth three times daily. 90 tablet Active Additional Information Patient taking differently: 10 mgORAL 3 TIMES DAILY, Reason: Dosage Adjustment, Reported on 12/18/2018 primidone (MYSOLINE) 250 mg tablet Indications:Action tremorTake 1 tablet by mouth twice daily. 60 tablet ctive gabapentin (NEURONTIN) 300 mg capsule Take 1 capsule in the morning, one in early afternoon, and 2 in the evening 120 capsule ctive amLODIPine (NORVASC) 5 mg tablet Take by mouth once daily.Active atorvastatin (LIPITOR) 40 mg tablet Take 40 mg by mouth once daily.Active menthol (BIOFREEZE, MENTHOL,) 4 % topical gel Apply to affected area three times daily as needed.Active busPIRone (BUSPAR) 15 mg tablet Take 15 mg by mouth three times daily.Active calcium carbonate (CALTRATE) 600 mg calcium (1,500 mg) tab Take 600 mg by mouth.Active ferrous sulfate 325 mg (65 mg iron) tablet Take 325 mg by mouth daily with breakfast.Active Fluticasone Propionate 50 mcg/actuation diskus inhaler Inhale 1 Puff as instructed twice daily.Active alendronate (FOSAMAX) 70 mg tablet Take 70 mg by mouth one time a week. In AM with cup of water on empty stomach. Nothing else by mouth and stay upright for 30 min.Active Ibuprofen 200 mg cap Take by mouth every 6 hours as needed.Active loperamide (IMODIUM) 2 mg cap(s) Take 2 mg by mouth four times daily as needed.Active polyethylene glycol 3350 17 gram/dose powder Take by mouth once daily. Dissolve dose in 4 - 8 ounces of liquid and take as directed.Active pantoprazole DR (PROTONIX) 40 mg tablet Take 40 mg by mouth once daily.Active sodium chloride 1 g tab Take 1 g by mouth three times daily.Active sucralfate (CARAFATE) 1 gram tablet Take 1 g by mouth four times daily.Active acetaminophen (TYLENOL) 500 mg tablet Take 500 mg by mouth every 8 hours as needed.Active ondansetron (ZOFRAN) 4 mg tablet Take by mouth every 8 hours as needed for nausea/vomiting.Active HYDROcodone-acetaminophen (NORCO) 5-325 mg per tablet Take 1 tablet by mouth every 8 hours as needed for pain.Active gabapentin (NEURONTIN) 600 mg tablet Take 600 mg by mouth three times a day.Active deutetrabenazine (AUSTEDO) 12 mg tab Indications:Dyskinesia, tardive,Lingual facial buccal dyskinesia,Dyskinesia, orofacialTake 2 tablets (24 mg) by mouth twice daily with meals. 120 tablet ctive cyclobenzaprine (FLEXERIL) 10 mg tablet 12/23/2022ctive guaiFENesin-dextromethorphan (ROBITUSSIN DM) 100-10 mg/5 mL syrup Take 10 mL by mouth every 6 hours as needed.Active levothyroxine (SYNTHROID) 75 mcg tablet 12/30/2022ctive traZODone (DESYREL) 100 mg tablet 12/29/2022ctive clonazePAM (KLONOPIN) 1 mg tablet Indications:Lingual facial buccal dyskinesia,Akathisia,Excessive physiologic tremorTake 1.5 tablets by mouth three times daily for 90 days. [including bedtime] 135 tablet ctive celecoxib (CELEBREX) 100 mg capsule Take 100 mg by mouth two times a day.Active clonazePAM (KLONOPIN) 0.5 mg tablet Take 0.5 mg by mouth three times a day. Take 3 tablets by mouth 3 times a day. Active mirtazapine (REMERON) 15 mg tablet Take 15 mg by mouth daily at bedtime.Active carBAMazepine (TEGRETOL) 200 mg tablet Indications:Lingual facial buccal dyskinesia,Dyskinesia, tardiveTake 1 tablet by mouth three times a day. [Start with this only twice a day for 1-2 weeks, then go to 3 doses per day 90 tablet ctive tetrabenazine (XENAZINE) 25 mg tablet Indications:Dyskinesia, tardiveTake 1 tablet by mouth two times a day. 60 tablet ctive amantadine HCl (SYMMETREL) 100 mg tablet Indications:Dyskinesia, tardiveTake 1 tablet by mouth two times a day. 60 tablet ctive Immunizations ImmunizationAdministration DatesNext DueCOVID-19 original vaccine, age 12+ yr, monovalent ([place] pte-Ticket Cake - PURPLE TOP)03/26/2021,07/14/2020,06/23/2020 diphtheria tetanus pertussis (DTP) gxdpuxl0612/28/2020influenza (HD-IIV4) vaccine, age 65+ yr, high dose, quadrivalent, PF (FLUZONE HIGH-DOSE)01/10/2021influenza (IIV3) vaccine, trivalent (AFLURIA, FLULAVAL, FLUVIRIN, FLUZONE)12/15/2019 influenza (IIV3) vaccine, trivalent, PF (AFLURIA, FLUARIX, FLULAVAL, FLUVIRIN, FLUZONE)11/20/2015,12/31/2014influenza (IIV4) vaccine, age 6 mo - 64 yr, quadrivalent, PF (AFLURIA, FLUARIX, FLULAVAL, FLUZONE)12/19/2019,12/25/2018, 12/20/2017,12/14/2016pneumococcal conjugate (PCV13) vaccine, 13 valent (PREVNAR 13)12/25/2018pneumococcal polysaccharide (PPV23) vaccine, 23 valent (PNEUMOVAX 23)11/20/2015tetanus diphtheria pertussis (Tdap) vaccine, age 7+ yr (ADACEL, BOOSTRIX)06/28/2020zoster (RZV) vaccine, recombinant (SHINGRIX)04/11/2020, 10/28/2019,02/25/2019zoster (ZVL) vaccine, live (ZOSTAVAX)11/20/2015 Family History Medical HistoryRelationCommentsHeartFatherdied of MILeukemiaFatheractually lymphomaCancerMaternal GrandmotherbrainHeartMotherStrokeMotherRelationStatus CommentsFatherMaternal GrandmotherMother Social History Tobacco UseTypesPacks/DayYears UsedDateSmoking Tobacco: FormerCigarettesQuit: 07/21/2017Passive Smoke Exposure: PastSmokeless Tobacco: Never Tobacco Cessation:Counseling Given: Not Answered Alcohol UseStandard Drinks/WeekCommentsNever0 (1 standard drink = 0.6 oz pure alcohol)AUDIT-CAnswerDate RecordedQ1: How often do you have a drink containing alcohol?Never07/21/2018Average Number of DrinksNot on file07/21/2018Frequency of Binge DrinkingNot on file07/21/2018PHQ-2AnswerDate RecordedPHQ-2 score0 1Area Deprivation IndexAnswerDate RecordedNational Score (1-100), lower number is lower xowv391805/14/2023State Score (1-10), lower number is lower risk8 4Data from: https://www.neighborhoodatlas.medicine.[facility].edu/. Last address used for [address] [facility]4CommentsNoSex and Gender InformationValueDate RecordedSex Assigned at BirthNot on fileLegal Sex Jpbumv7106/19/2018 9:36 AM ESTGender IdentityNot on fileSexual OrientationNot on file Last Filed Vital Signs Vital SignReadingTime TakenCommentsBlood Ikkobemw274/80011/12/2023 10:53 AM EDT Fhlhz7149/30/2024 10:53 AM EDTTemperature--Respiratory Bull709808/21/2018 9:37 AM EDTOxygen Futybjlhlk05%11/12/2023 10:53 AM EDTInhaled Oxygen Concentration-- Qjfeku36.1 kg (95 lb)11/12/2023 10:53 AM YMUKswyfj274 cm (5' 3 )05/14/2023 3:58 PM ESTBody Mass Index16.8305/14/2023 3:58 PM EST Plan of Treatment Health MaintenanceDue DateLast DoneCommentsAnxiety Phyeajnwh42/11/1974Depression Cvqyalplm21/11/1974Hepatitis C Cfswmjzuq03/11/1974Mammogram Zwtvrocns75/11/1996 CT Sqauxnxysvko36/11/2001Cologuard (FIT-DNA)05/26/20002273Ayvlofqqutx99/11/2001 Colorectal Cancer Rvjwrxfsz89/11/2001Fecal Occult Blood2000Lipid Screening 05/26/20003083Vhezugrqiveds50/11/2001Bone Density Oxjcienii27/11/2021Pneumococcal Vaccine: 50+ (3 of 3 - PCV20 or PCV21), 11/20/2015Advance Directive Ircdmrwhsi59/01/2025Medicare Advantage Annual Wellness Visit04/15/2024 Covid-19 Vaccine ( season)/, 11/29/2021, 03/26/2021, Additional history existsInfluenza Vaccine (#1)509/, 12/19/2019, 12/15/2019, Additional history existsDiabetes Rqmhhkmaf97/04/2026 05/19/2022, 04/08/2022, 04/04/2022, Additional history existsRSV Vaccine (1 - 1- dose 75+ series)1DTaP,Tdap,Td Vaccine (3 - Td or Tdap)12/28/2030 12/28/2020, 1Shingrix JxdpqsdZiidhqtag98/28/2020, 10/28/2019, 02/25/2019, Additional history exists Insurance MemberSubscriberPlan / Payer (Effective 2022-Present)Name:Melanie Espinoza Relation to Subscriber:SelfName:Melanie Espinoza Payer ID:[id number] (NAIC) Type:PPO Address: [place] [id number] Care Teams Team MemberRelationshipSpecialtyStart DateEnd Date Esteban Slater MD [address] [place] [address] PCP - GeneralFamily Medicine07/21/18
--- OUTSIDE RECORDS SUMMARY | 2025-02-04 07:53 | XMS_ITS | Clinical Summary ---
Author Organization [facility] Address [address] [place] [address] Phone Care Team Providers Care Pegger Dobby Looms Name Role Phone Alexey Connor DO Primary Care Provider Social History Tobacco UseTypesPacks/DayYears UsedDateSmoking Tobacco: Never Assessed CommentsUnknownSex and Gender InformationValueDate RecordedSex Assigned at Not on fileLegal PxbUbsncl05/25/2022 8:26 PM ESTGender IdentityNot on fileSexual OrientationNot on file Last Filed Vital Signs Vital SignReadingTime TakenCommentsBlood Znisxbyt364/7806 2:35 PM EDT Smypb5168 2:32 PM EDTTemperature--Respiratory Rate--Oxygen Saturation-- Inhaled Oxygen Concentration--Lwmsiy68.2 kg (104 lb)09/25/2021 2:32 PM EDTHeight 160 cm (5' 3 )09/25/2021 2:32 PM EDTBody Mass Index18.4206 2:32 PM EDT Plan of Treatment Not on file Care Teams Team MemberRelationshipSpecialtyStart DateEnd Date Alexey Connor DO PCP - General04/15/99
--- OUTSIDE RECORDS SUMMARY | 2025-02-04 07:53 | XMS_ITS | Clinical Summary ---
Author Organization [facility] Address [address] [place] [address] Care Team Providers Care Logistics Tech Name Role Phone Alexey Connor DO Primary Care Provider Allergies Active AllergyReactionsCriticalityNoted LgypJxojkgvyJmlqscwkoubh86/01/2022 Other reaction(s): Unknow ClarithromycinNausea And ZtnvysqwWcb77/22/2021rythromycinOther,UnknownMedium 07/23/2016Erythromycin Base10/09/2021 Other reaction(s): Unknown Reaction Hydrocodone-AcetaminophenGI /10/2024 Medications MedicationSigDispense QuantityRefillsLast FilledStart DateEnd DateStatus atorvastatin (Lipitor) 40 mg tablet Take 1 tablet by mouth in the evening.Active busPIRone (Buspar) 10 mg tablet Take 15 mg by mouth in the morning and at bedtime.Active calcium carbonate 600 mg calcium (1,500 mg) tablet Take 600 mg by mouth in the morning.Active clonazePAM (KlonoPIN) 0.5 mg tablet Take 1-2 tablets by mouth at bedtime.Active cyclobenzaprine (Flexeril) 10 mg tablet Take 10 mg by mouth if needed in the morning, at noon, and at bedtime for muscle spasms.12/23/2022ctive fluticasone (Flonase) 50 mcg/actuation nasal spray 2 sprays by nasal (alternating) route 1 (one) time each day.03/19/2022ctive gabapentin (Neurontin) 300 mg capsule Take 300 mg by mouth in the morning and at bedtime.09/21/2020ctive gabapentin (Neurontin) 600 mg tablet at bedtime.02/17/2023ctive levothyroxine (Tirosint) 75 mcg capsule Take 75 mcg by mouth in the morning.Active pantoprazole (ProtoNix) 40 mg EC tablet Take 40 mg by mouth before breakfast.Active primidone (Mysoline) 50 mg tablet Take 50 mg by mouth in the morning and at bedtime.Active sodium chloride 1,000 mg tablet Take 1 g by mouth in the morning.Active traZODone (Desyrel) 100 mg tablet Take 100 mg by mouth at bedtime.12/29/2022ctive ferrous sulfate 325 (65 Fe) MG tablet Take 325 mg by mouth with breakfast.09/13/2021ctive loperamide (Imodium A-D) 2 mg tablet Take 2 mg by mouth every 6 (six) hours if needed for diarrhea.Active menthol (Biofreeze, menthol,) 4 % gel Apply 1 Application topically every 8 (eight) hours if needed.Active mirtazapine (Remeron) 15 mg tablet Take 15 mg by mouth at bedtime.Active metoprolol succinate XL (Toprol-XL) 25 mg 24 hr tablet Indications:Atherosclerosis of [place] coronary artery of [place] heart without angina pectorisTake 1 tablet (25 mg) by mouth in the morning. Do not crush or chew. 30 tablet 11/04/2023ctive Additional Information Patient taking differently:25 mg oral Daily,Do not crush or chew. Given with 50mg for a total of 75 mg, Reported on 01/22/2025 carBAMazepine (TEGretol) 200 mg tablet Take 200 mg by mouth three times daily.Active amLODIPine (Norvasc) 10 mg tablet 11/22/2023ctive nitroglycerin (Nitrostat) 0.4 mg SL tablet 05/11/2023ctive aspirin 81 mg EC tablet Take 81 mg by mouth in the morning.Active deutetrabenazine 30 mg tablet extended release 24 hr Take 30 mg by mouth in the morning.Active alendronate (Fosamax) 70 mg/75 mL solution Take 70 mg by mouth every 7 (seven) days. Take in the morning with a full glass of water, on an empty stomach, and do not take anything else by mouth or lie down for the next 30 min.Active SUMAtriptan (Imitrex) 25 mg tablet Take 25 mg by mouth 1 (one) time if needed.5Active Active Problems ProblemNoted DateDiagnosed DateGeneralized muscle ache01/22/2025Witnessed apneic dknajm3606/07/2023Status post total hip replacement, left12/29/2023ftercare following joint replacement zfknjph7512/20/20230913Hycwhgmobwizui35/30/2024GERD (gastroesophageal reflux disease)12/06/2023Traumatic arthritis of left hip 12/06/2023oronary artery disease involving [place] coronary artery of [place] heart without angina oqcaiudi06/05/2024enign hypertensive heart and kidney disease without heart failure and with chronic kidney disease stage V or end stage renal disease(404.12)09/18/2023bnormal EKG008/07/2023cute alteration in mental fijlwy72epressionHydronephrosis HypocalcemiaHypokalemia07/04/2023 07/04/20237511Yvampxrphvvyevyu31/21/202403/21/2024Disease characterized by destruction of skeletal ndccpt33Tardive kaygagzdjn98/21/2024 07/04/2023Osteoarthritis of left hipS/P reverse total shoulder arthroplasty, rightvascular necrosis of bone of hip, left04/09/2023Hiatal qdukev84rimary osteoarthritis HypoglycemiaSIADH (syndrome of inappropriate ADH production)/Nausea and zgyxsavi35/28/2023 07/04/2023Movement qvxapkws70cquired buxwzhleqiiemb36/09/2022 07/04/20239166Hqqptk79Generalized anxiety ponirmjh39/09/2022 07/04/2023Generalized muscle tmwjqeae49Multifactorial gait qoanoogs54rimary gidxbkqunybh54/09/202203/4Rectal byfoimdi10hronic dtppryiuvgcn31Hypo- osmolality and uhttwmspcuxs92/10/2021eg mngxtqtt43ain of left hip joint Resolved Problems ProblemNoted DateDiagnosed DateResolved DateAbnormal stress test09/18/2023 08/09/2024OVID-190/1586Qynpbq8612/08/2023losed fracture of neck of femur Encounters DateTypeDepartmentCare QsvjExwapmravwu46/10/2025 12:20 PM EDTOffice Visit [place] [address] [place] [address] Marline Sandoval MD Generalized muscle ache (Primary Dx); Coronary artery disease involving [place] coronary artery of [place] heart without angina pectoris; Primary hypertension; Pure jxesxukcgblgrnhqxwaq25/18/2025Telephone [facility] [address] [place] [address] Aleida Wu MA 12/30/2024Orders Only [facility] [address] [place] [address] Aleida Wu MA Hyperlipidemia, unspecified hyperlipidemia type (Primary Dx)from Last 3 Months Family History Medical HistoryRelationNameCommentsHeart attackFatherHypertensionMotherStroke MotherRelationNameStatusCommentsFatherDeceasedMotherDeceased Social History Tobacco UseTypesPacks/DayYears UsedDateSmoking Tobacco: FormerCigarettes Smokeless Tobacco: NeverAlcohol UseStandard Drinks/WeekCommentsNever0 (1 standard drink = 0.6 oz pure alcohol)C UtilitiesAnswerDate RecordedIn the past 12 months has the electric, gas, oil, or water company threatened [...] file01/16/2024CommentsNoSex and Gender InformationValueDate RecordedSex Assigned at UbiklWbrenp25/01/2025 2:06 PM EDT Legal EzpPjeamx63/30/2022 12:32 AM EDTGender BzyqibykDgowav07/01/2025 2:06 PM EDTSexual OrientationHeterosexual or Vhjvzusf42/01/2025 2:06 PM EDT Last Filed Vital Signs Vital SignReadingTime TakenCommentsBlood Jyrueair924/6210 12:41 PM EDT Lcwdw3999/01/2025 12:41 PM QPLRpqnwcoofaa73.5 ??C (97.7 ??F)12/10/2023 6:15 AM EDTRespiratory Ibcu237512/10/2023 6:15 AM EDTOxygen Psauewwznt39%01/22/2025 12:41 PM EDTInhaled Oxygen Concentration--Ryuaso33.9 kg (99 lb)08/07/2024 3:18 PM EDT Ibiokr868 cm (5' 3 )01/22/2025 12:41 PM EDTBody Mass Index17.54008/07/2024 3:18 PM EDT Plan of Treatment Health MaintenanceDue DateLast DoneCommentsCT Xgufqvlzxpnc75/11/1956olonoscopy 1955olorectal Cancer Ymkyfqqhz41/11/1956FIT-DNA1955FIT1955 FOBT1955Medicare Annual Wellness (AWV)1955 5844Btjvxjsiippms54/11/1956 Kzlzjeymw35/11/1996Pneumococcal Vaccine: 50+ Years (3 of 3 - PCV20 or PCV21) , 11/20/2015COVID-19 Vaccine ( - season)2024 09/27/2022, 11/29/2021, 03/26/2021, Additional history existsInfluenza Vaccine (#1), 12/19/2019, 12/15/2019, Additional history exists Depression Qtorozwcf83Fall Risk Pcvnyscog48/ Adult Eopgbck19Zoster YxreyzmbRizevenmw91/28/2020, 10/28/2019, 02/25/2019, Additional history existsHIB VaccinesAged OutNo longer eligible based on patient's age to complete this topicHPV VaccinesAged OutNo longer eligible based on patient's age to complete this topicIPV VaccinesAged OutNo longer eligible based on patient's age to complete this topicMeningococcal B VaccineAged OutNo longer eligible based on patient's age to complete this topic Meningococcal VaccineAged OutNo longer eligible based on patient's age to complete this topicRotavirus VaccinesAged OutNo longer eligible based on patient's age to complete this topic Medical Devices ImplantedTypeAreaManufacturerDevice IdentifierShelf Expiration DateModel / Serial / LotScrew,Bone,6.1o11paxv-Yjg - [id number] Implanted:Qty: 1 on 12/06/2023 by [facility]: [id number] / / [id number],Bone,Self-Tap,6.5x35mm - [id number] Implanted:Qty: 1 on 12/06/2023 by [facility]: [id number] / / [id number],Bone,Self-Tap,6.5x30mm - [id number] Implanted:Qty: 1 on 12/06/2023 by [facility]: [id number] / / [id number],Bone,Self-Tap,6.5x20mm - [id number] Implanted:Qty: 1 on 12/06/2023 by [facility]: [id number] / / [id number] Acetabular System Shell Implanted:Qty: 1 on 12/06/20[facility] HipBIOMET [id number] / / [id number],G7,E1,40,F - [id number] Implanted:Qty: 1 on 12/06/2023 [facility] HipBIOMET [id number]/ [id number] / / [id number],Reduce,Distal,Stnd,9.0 - [id number] Implanted:Qty: 1 on 12/06/2023 [facility] HipBIOMET [id number]- [id number] / / [id number],Biolox-D Mod,40mm - [id number] Implanted:Qty: 1 on 12/06/2023 [facility]: HipBIOMET [id number]/09/2033 650-1058 / / [id number],Biolox Option Type 1,-6 - [id number] Implanted:Qty: 1 on 12/06/2023 [facility] HipBIOMET [id number]/ 650-1064 / / [id number] [place] [address] Advance Directives * Full Code (Latest Code Status on File) Date ActivatedDate InactivatedComments12/10/2023 1:02 PM12/10/2023 7:42 PM * Full Code Date ActivatedDate InactivatedComments12/06/2023 1:47 PM12/10/2023 1:02 PM Care Teams Team MemberRelationshipSpecialtyStart DateEnd Date Alexey Connor DO PCP - GeneralFamily Vhbhoyip76/21/23
--- OUTSIDE RECORDS SUMMARY | 2025-02-04 07:53 | XMS_ITS | Clinical Summary ---
Author Organization [facility] Address [id number] [address] [place] [address] Care Team Providers Care Allied Health Teacher Name Role Phone Alexey Connor Primary Care Provider Allergies Active AllergyReactionsCriticalityNoted DateCommentsClarithromycinNausea And TpyhmjtmSxu76/22/2021ErythromycinNausea And YqmjmmmyOrrplk87/10/2017 Medications MedicationSigDispense QuantityRefillsLast FilledStart DateEnd DateStatus levothyroxine (SYNTHROID, LEVOTHROID) 75 MCG tablet Take 1 tablet (75 mcg total) by mouth every morning before breakfast. Take on empty kvocxgq2811/26/2019Active busPIRone (BUSPAR) 10 mg tablet Take 1 tablet (10 mg total) by mouth in the morning and at bedtime. Give 1 tablet by mouth two times a dayActive gabapentin (NEURONTIN) 300 mg capsule take 1 capsule by mouth IN THE MORNING, 1 CAP IN THE EARLY AFTERNOON AND 2 CAPS IN THE AQCGWJI4009/21/2020ctive pantoprazole (PROTONIX) 40 mg EC tablet Take 1 tablet (40 mg total) by mouth in the morning and 1 tablet (40 mg total) before bedtime.Active amLODIPine (NORVASC) 5 mg tablet Take 2 tablets (10 mg total) by mouth in the morning.Active sodium chloride 1 gram tablet Take 1 tablet (1 g total) by mouth daily. 30 tablet 12/26/2020ctive atorvastatin (LIPITOR) 40 mg tablet Take 1 tablet (40 mg total) by mouth nightly. 30 tablet 01/08/2021ctive clonazePAM (KlonoPIN) 1 mg tablet clonazepam 1 mg tablet take 1 tablet by mouth three times a day12/08/2020ctive calcium carbonate-vitamin D3 (CALCIUM 600 WITH VITAMIN D3) 600 mg(1,500mg) -400 unit tablet,chewable Chew 2 tablets and swallow daily.Active deutetrabenazine 12 mg tablet Take 2 tablets by mouth in the morning and 2 tablets before bedtime. 2 tablets by mouth two times aday for dyskinesia chorea.02/26/2022ctive sucralfate (CARAFATE) 1 gram tablet 02/17/2022ctive acetaminophen (TYLENOL EXTRA STRENGTH) 500 mg tablet Take 1 tablet (500 mg total) by mouth every 8 (eight) hours as needed.Active alendronate (FOSAMAX) 70 mg tablet Take 1 tablet (70 mg total) by mouth Once a week.Active fluticasone propionate (FLONASE) 50 mcg/actuation nasal spray 03/19/2022ctive PRIMIDONE ORAL Take 250 mg by mouth Daily at 0630. seizuresActive traZODone (DESYREL) 150 mg tablet Take 150 mg by mouth nightly.Active ondansetron (ZOFRAN) 4 mg tablet Take 1 tablet (4 mg total) by mouth every 8 (eight) hours as needed for nausea or vomiting.Active cyclobenzaprine (FLEXERIL) 10 mg tablet Take 1 tablet (10 mg total) by mouth 3 (three) times a day as needed for muscle spasms.12/23/2022ctive menthol (BIOFREEZE, MENTHOL,) 4 % gel Apply 1 Application topically every 8 (eight) hours as needed. Apply to right shoulder topically every 8 hours as needed for shoulder painActive dextromethorphan-guaiFENesin (ROBITUSSIN-DM) 10-100 mg/5 mL liquid Take 10 mL by mouth every 6 (six) hours as needed for cough. Give 10 milliliter by mouth every 6 hours as needed for coughActive loperamide (IMODIUM A-D) 2 mg tablet Take 1 tablet (2 mg total) by mouth every 6 (six) hours as needed for diarrhea. Give one tablet by mouth every 6 hours as needed for loose stoolActive Active Problems ProblemNoted DateDiagnosed DateWitnessed apneic blggnc3006/07/2023ftercare following right shoulder joint replacement hluvblk0402/25/2024ftercare following left hip joint replacement nsgtyst9912/20/2023bnormal stress test09/18/2023 Abnormal EKG008/07/20235979Zhhltrbfkpjknpfl28/21/0761Katmxfcleue59/21/2024 Wkprpipjplrd29/21/2024isease characterized by destruction of skeletal muscle 07/04/20239395Cxkxdiigbc17/21/3122Qazohfi51/21/2024S/P reverse total shoulder arthroplasty, right05/14/2023Osteoarthritis of left hip05/14/2023vascular necrosis of bone of hip, left04/09/2023Hiatal ykjtgd8303/12/2023rimary eevywrkpnxfsqd46/07/2023SIADH (syndrome of inappropriate ADH production) 09/14/20227362Afncpfobvkif15/02/2023Nausea and gwdokhoh01/28/2023Localized osteoarthritis of right /16/2023Movement byoydizo91/09/2022cquired wsqpoclogvucdn01/09/2022Generalized anxiety awgnjhww68/09/2022rimary pllakgrjchli52/09/2022Generalized muscle xgwookup96/09/2022Multifactorial gait /09/2022Rectal mrajfuqb16/23/2021Hypo-osmolality and hyponatremia 12/23/2020eg kmfupafg35/09/2021losed fracture of neck of femur06/16/2020ain of left hip joint06/16/2020Tardive dyskinesiaAcid refluxHyperlipidemia Resolved Problems ProblemNoted DateDiagnosed DateResolved DateCOVID-190407/5Anemia /2173Epjjwdzpy47/05/2023hronic kidney bmiutwo3709/14/2022 Overview (09/14/2022): patient denies Encounters DateTypeDepartmentCare UjryUcohfbdozvy86/23/2025Continuing Care [facility] [address] [place] [phone] Alexey Connor, DO Right knee pain, unspecified chronicity (Primary Dx); Hypo-osmolality and hyponatremia; SIADH (syndrome of inappropriate ADH production); Primary hypertension; Movement disorder; Multifactorial gait disorder; Hyperlipidemia, unspecified hyperlipidemia type12/04/2024ontinuing Care [facility] [address] [place] [address] Alexey Connor DO Primary hypertension (Primary Dx); SIADH (syndrome of inappropriate ADH production); Acquired hypothyroidism; Hypoglycemia; Tardive dyskinesia; Iron deficiency anemia, unspecified iron deficiency anemia type; Multifactorial gait disorderfrom Last 3 Months Immunizations ImmunizationAdministration DatesNext DueCOVID-19, mRNA, LNP-S, PF, 100mcg/0.5mL Dose11/29/2021OVID-19, mRNA, LNP-S, PF, 30mcg/0.3mL Dose03/26/2021,07/14/2020, 1Covid-19, Mrna, Lnp-s, Bivalent, Pf, 30mcg/0.3 ml3DTP 12/28/2020Influenza (IM) Preservative Free11/20/2015,12/31/2014Influenza, High- dose, Kzxifpylwrqk14/28/2021Influenza, Im Trivalent Ybssmbcovcib43/01/2020 Influenza, Injectable, quadrivalent (PF)12/19/2019,12/25/2018,12/20/2017, 12/14/2016Influenza, Flxyaiojxfb44/01/2017Pneumococcal Conjugate 13-Valent 12/25/2018Pneumococcal Szkwdhlvgxambv46/04/2023(),11/20/2015Tdap06/28/2020Zoster Live11/20/2015Zoster Vaccine Tysqebbhsrq53/28/2020,10/28/2019,02/25/2019 Family History Medical HistoryRelationNameCommentsEsophagitisFatherstricture specificallyStroke FatherCancerMaternal GrandmotherColon cancerMaternal GrandmotherEmphysemaMother HyperlipidemiaMotherHypertensionMotherStrokeMotherRelationNameStatusComments FatherDeceasedMaternal GrandmotherDeceasedMotherDeceased Social History Tobacco UseTypesPacks/DayYears UsedDateSmoking Tobacco: FormerCigarettes0.520 1971 - 1991Smokeless Tobacco: Never Tobacco Cessation:Counseling Given: Not Answered Comments:Quit in the 90'S, STARTED AGE 18 Alcohol UseStandard Drinks/WeekCommentsNo0 (1 standard drink = 0.6 oz pure alcohol)ChildcareAnswerDate PwzhpiybDhfqrdwbmRrspyho56/12/2019EmploymentAnswer Date PohrnxzuCkavizranlPiknttb58/12/2019Hunger ScreeningAnswerDate Recorded Within the past 12 months we worried whether our food would run out before we got money to buy more.Never True12/28/2022Food Insecurity - InabilityNot on file 3Purpose - LifeAnswerDate RecordedPurpose and direction in lifeUnknown 1CommentsNoSex and Gender InformationValueDate RecordedSex Assigned at BirthNot on fileLegal HpyBhwvxp67/06/2015 11:45 AM EDTGender IdentityNot on fileSexual OrientationNot on file Last Filed Vital Signs Vital SignReadingTime TakenCommentsBlood Yedpwrcs000/5609 10:58 PM EDT Vvlvh789701/05/2025 10:58 PM FCGKddwtsrbfno08.6 ??C (97.8 ??F)01/05/2025 10:58 PM EDTRespiratory Kjdt165501/05/2025 10:58 PM EDTOxygen Zuhqujebpv86%01/05/2025 10:58 PM EDTInhaled Oxygen Concentration--Akjhwy54.2 kg (97 lb 6.4 oz)01/05/2025 10:58 PM ZHTZjrcua818 cm (5' 3 )08/26/2023 10:10 AM EDTstatedBody Mass Index17.25 08/26/2023 10:10 AM EDT Plan of Treatment Health MaintenanceDue DateLast DoneCommentsDepression Ekqihipse64/11/1968Fall Risk Qolzmekev06/11/2021Tobacco Jxscyuann47/14//OVID-19 Vaccine ( season)506/, 11/29/2021, 03/26/2021, Additional history existsInfluenza Fuqqoja04/01/912693/, 12/19/2019, 12/15/2019, Additional history existsAdult BMI Cqcqbgoge42/23/692821/5Colonoscopy /06/2020, 11/15/2020TaP,Tdap and Td Vaccines (3 - Td or Tdap) /, 06/28/2020Zoster (Shingles) BleeijrNfbwkirre25/28/2020, 10/28/2019, 02/25/2019, Additional history exists Goals GoalPatient Goal TypeAssociated ProblemsRecent ProgressPatient-Stated?Author go to [place] for therapy Ronit Ospina LSW Note: Evaluation of progress towards goal: will DC from ED to SNF upon arrangements Long-Term Goals Amparo Chi LSW Note: Evaluation of progress towards goal: return to [facility] Medical Devices ImplantedTypeAreaManufacturerDevice IdentifierShelf Expiration DateModel / Serial / LotMesh Pco Vntrl Ptch 4.6cm Rpl [id number] - Sna - [id number] Implanted:Qty: 1 on 01/29/2020 [facility]: AbdomenMEDTRONIC USA06/12/2024PCO4VP / NA / [id number] Procedures Procedure NamePriorityDate/TimeAssociated DiagnosisCommentsPROVATION COLONOSCOPY Tfsxfda9711/15/2020 1:30 PM EDT from Last 3 Months or Most Recently Relevant to Health Maintenance Results * Colonoscopy Report (11/15/2020 1:30 PM EDT)Specimen (Source)Anatomical Location / LateralityCollection Method / VolumeCollection TimeReceived Time Narrative SYSTEMGENERATED, DOCUMENTATION - 11/15/2020 1:30 PM EDT This order has been auto-finalized for image and report archival in PACs. *For full report details, please reach out to your physician. ??Effective 08/30/20 this image will be visible to you in MyChart.* Authorizing ProviderResult TypeResult StatusChandnataliia Montoya MDIMG OR IMG ORDERABLESFinal Result from Last 3 Months or Most Recently Relevant to Health Maintenance Insurance Advance Directives * Full Code (Latest Code Status on File) Date ActivatedDate InactivatedComments05/18/2022 5:36 PM2 9:18 PM * Full Code Date ActivatedDate YifbzqdmfjvLagmudim15/23/2021 10:29 AM02/06/2021 4:12 PM * DNR Comfort Care Arrest (DNR-CCA) [place] Date ActivatedDate InactivatedComments01/07/2021 4:37 PM01/08/2021 7:11 PM * Full Code Date ActivatedDate InactivatedComments12/23/2020 7:31 AM12/26/2020 12:12 PM Care Teams Team MemberRelationshipSpecialtyStart DateEnd Date Alexey Connor DO [address] [place] [address] [facility] - [facility] Jyubjbca28/13/22
--- OUTSIDE RECORDS SUMMARY | 2025-02-04 07:54 | XMS_ITS | Clinical Summary ---
Author Organization [facility] Address [address] [place] [address] Care Team Providers Care Data Processing Specialist Name Role Phone Esteban Slater MD Primary Care Provider [phone] Allergies Active AllergyReactionsCriticalityNoted DateCommentsAzithromycinUnknown 09/13/2021 Other reaction(s): Unknow ClarithromycinNausea And Vomiting,GI fongbpcnacmFug03/22/2021rythromycinGI intolerance,Other,UeevetzUvzvnd61/10/2017Erythromycin AmyzQrrqtlt00/27/2022 Other reaction(s): Unknown Reaction Hydrocodone-AcetaminophenGI krxtjyyxxgs75/10/2024 Medications MedicationSigDispense QuantityRefillsLast FilledStart DateEnd DateStatus alendronate (Fosamax) 70 MG tablet Take 70 mg by mouth once a weekActive amantadine (Symmetrel) 100 MG tablet Take 100 mg by mouth in the morning and 100 mg in the evening.12/27/2023ctive amLODIPine (Norvasc) 10 MG tablet Take 1 tablet by mouth Daily11/22/2023ctive atorvastatin (Lipitor) 40 MG tablet Take 1 tablet by mouth in the eveningActive busPIRone (Buspar) 10 MG tablet Take 15 mg by mouth in the morning and 15 mg in the evening.Active calcium carbonate 1500 (600 Ca) MG tablet Take 600 mg by mouth in the morning.Active carBAMazepine (TEGretol) 200 MG tablet Take 200 mg by mouth in the morning and 200 mg at noon and 200 mg in the evening.Active celecoxib (CeleBREX) 100 MG capsule Take 100 mg by mouth in the morning and 100 mg in the evening.Active clonazePAM (KlonoPIN) 0.5 MG tablet Take 1-2 tablets by mouth at bedtimeActive gabapentin (Neurontin) 300 MG capsule Take 1 capsule by mouth in the morning and 1 capsule before bedtime.Active levothyroxine (Synthroid) 75 MCG tablet Take 1 tablet by mouth in the morning. Take before meals.Active mirtazapine (Remeron) 15 MG tablet Take 15 mg by mouth at bedtimeActive nitroglycerin (Nitrostat) 0.[address] 1 tablet under the tongue every 5 (five) minutes if needed for chest pain (x 3 doses)05/11/2023ctive pantoprazole (ProtoNix) 40 MG EC tablet Take 1 tablet by mouth in the morning. Take before meals.01/23/2024ctive pravastatin (Pravachol) 40 MG tablet Take 1 tablet by mouth at bedtimeActive primidone (Mysoline) 50 MG tablet Take 50 mg by mouth in the morning and 50 mg in the evening.Active sodium chloride 1 g tablet Take 1 g by mouth in the morning.Active tetrabenazine (Xenazine) 25 MG tablet Take 25 mg by mouth in the morning and 25 mg in the evening.12/27/2023ctive ferrous sulfate 325 (65 Fe) MG tablet Take 325 mg by mouth in the morning. Take with meals.Active metoprolol tartrate (Lopressor) 50 MG tablet Take 1 tablet by mouth in the morning and 1 tablet before bedtime.Active valbenazine tosylate (Ingrezza) 80 MG capsule Take 1 capsule by mouth DailyActive aspirin 81 MG EC tablet Take 81 mg by mouth DailyActive Deutetrabenazine ER (Austedo XR) 30 MG tablet sustained-release 24 hour Take 30 mg by mouth DailyActive fluticasone (Flonase) 50 MCG/ACT nasal spray Administer 1 spray into each nostril Daily Shake gently. Before first use, prime pump. After use, clean tip and replace cap.Active gabapentin (Neurontin) 600 MG tablet Take 600 mg by mouth at bedtimeActive Encounters DateTypeDepartmentCare VpptCcuihfoqhpq90/23/2025 11:30 AM EDTOffice Visit [facility] [facility] [address] [place] [address] Dionicio Trevizo MD Acquired hypothyroidism (Primary Dx); Movement krgynxxy09/23/2025amboo flowsheet [facility] [address] [place] [address] Dionicio Trevizo MD from Last 3 Months Immunizations ImmunizationAdministration DatesNext VviKIV1412/28/2020Influenza, High-dose Seasonal, Quadrivalent, Preservative Free01/10/2021Influenza, injectable, quadrivalent, preservative free12/19/2019,12/25/2018,12/20/2017,12/14/2016 Influenza, seasonal, /01/2020Influenza, seasonal, injectable, preservative free11/20/2015,12/31/2014Pneumococcal Conjugate PCV 1309 Pneumococcal Polysaccharide [id number]/16/2021Zoster, Recombinant 04/11/2020,10/28/2019,02/25/2019Zoster, live11/20/2015 Family History Medical HistoryRelationNameCommentsHeart diseaseFatherEmphysemaMother HypertensionMotherStrokeMotherRelationNameStatusCommentsFatherDeceasedMother Social History Tobacco UseTypesPacks/DayYears UsedDateSmoking Tobacco: Never Assessed CommentsUnknownSex and Gender InformationValueDate RecordedSex Assigned at Not on fileLegal WsqGauuvi68/15/2023 6:36 PM EDTGender IdentityNot on fileSexual OrientationNot on file Last Filed Vital Signs Vital SignReadingTime TakenCommentsBlood Lsfyienp097/7412 12:00 PM EST Mrpzd9569/23/2025 11:35 AM EDTTemperature--Respiratory Gucg987311/04/2024 11:35 AM EDTOxygen Fcdakxbnfo48%11/04/2024 11:35 AM EDTInhaled Oxygen Concentration-- Unalmb85.4 kg (100 lb)11/04/2024 11:35 AM IOVVbblry719 cm (5' 3 )11/04/2024 11:35 AM EDTBody Mass Index17.71011/04/2024 11:35 AM EDT Plan of Treatment DateTypeDepartmentCare Team (Latest Contact Info)Argjimwbuod71/21/2026 11:30 AM ESTOffice Visit [facility] [address] [place] [id number] Dionicio Trevizo MD [address] [place] [address] Insurance Care Teams Team MemberRelationshipSpecialtyStart DateEnd Date Esteban Slater MD PCP - GeneralFamily Uylvmdpm75/10/24
--- OUTSIDE RECORDS SUMMARY | 2025-02-04 08:00 | XMS_ITS | CCD ---
Author Organization [facility] ion [facility] Care Team Providers Care Product Development Carpenter Name Role Phone HERVE STARKEY Admitting Unavailable ESTEBAN GARZA Referring Unavailable ESTEBAN GARZA Primary Care Unavailable HERVE STARKEY Attending Unavailable Alexey Connor Unavailable Radha Bosch Unavailable Stevenson Corbin Unavailable Sena Eugene Unavailable MD Stevenson Corbin Attending Provider DO Alexey Connor Primary Care Provider Esteban Garza A Primary Care Provider Esteban Garza A Primary Care Provider CHRIST, DR ALEXEY Garcia Primary Care Unavailable LENA PALMER Attending Unavailable ZARI Gore, LENA Admitting Unavailable ASHELY, DR CM Napier Consulting Unavailable SOFI DISLA Consulting Unavailable ZARI Gore, LENA Consulting Unavailable CHIRST, DR ALEXEY Garcia Primary Care Unavailable SPENCER ., DR RODRIGUEZ Attending Unavailable SPENCER ., DR RODRIGUEZ Admitting Unavailable SPENCER ., DR RODRIGUEZ Consulting Unavailable Santiago Helms Consulting Unavailable SHANNAN, DR EMMA Palacio Attending Unavailable SHANNAN, DR EMMA Palacio Admitting Unavailable SHANNAN, DR EMMA Palacio Consulting Unavailable CHRIST, DR [...] Attending Provider Esteban Garza Primary Care Provider [phone] FURSAMANTHANG, ALEXEY Garcia Referring Unavailable FURLONG, ALEXEY Garcia Primary Care Unavailable FURLONG, ALEXEY G Referring Unavailable FURLONG, ALEXEY G Primary Care Unavailable FURLONG, ALEXEY G Referring Unavailable FURLONG, ALEXEY G Primary Care Unavailable FURLONG, ALEXEY G Referring Unavailable FURLONG, ALEXEY G Primary Care Unavailable Esteban Garza Primary Care Provider [phone] DO Alexey Connor Primary Care Provider MD Stevenson Corbin Attending Provider DO Nickolas Hawthorne Attending Provider Alexey Connor DO Primary Care Provider Stevenson Corbin MD Attending Provider Nickolas Hawthorne DO Attending Provider [phone] Alexey Connor DO Primary Care Provider Esteban Garza MD Primary Care Provider [phone] Alexey Connor DO Primary Care Provider Nickolas Hawthorne DO Attending Provider [phone] Alexey Connor DO Primary Care Provider [phone] Marine DO, Nickolas A Attending Provider [phone] Furleeann Alexey CACERES G Primary Care Provider Esteban Garza MD Primary Care Provider [phone] ESTEBAN GARZA Primary Care Unavailable TAI HINOJOSA [...] Attending Unavailable Marine, Nickolas A Admitting Unavailable BRIGIDODIONICIO MATA F Attending Unavailable BRIGIDO, AHMAD F Referring Unavailable BRIGIDODIONICIO MATA F Attending Unavailable Furlong DO, Alexey Primary Care Provider Nickolas Hawthorne DO Attending Provider LEONIE SANDOVAL Attending Unavailable LEONIE SANDOVAL Attending Unavailable TELLY PLAZA Referring Unavailable TELLY PLAZA Attending Unavailable Orzech, Gilma X Attending Unavailable Allergies Allergy ClassificationReported Allergen(s)Allergy TypeDate of OnsetReaction(s) Facility (20 sources)Azithromycin; Translations: [AZITHROMYCIN]Drug Ymqeuyt09-28-5490 [facility]knowThe [facility] RepositoryComment on above:Listed as an allergy on her PCP notes (20 sources)Erythromycin; Translations: [erythromycin]Drug [id number] Unknown, Nausea And Vomiting, GI intolerance, [facility] ([facility])erythromycin base; Translations: [Erythromycin Base]Allergy to leyirtuqc67-62-3070OfibfqpLtsnaivnbReg[facility] (19 sources)Clarithromycin; Translations: [CLARITHROMYCIN]Drug Ijjkvue12-07-7198 Nausea And Vomiting, [facility] intolerancePro[facility] (7 sources)Acetaminophen / HYDROcodone; Translations: [HYDROCODONE-ACETAMINOPHEN]Drug Cyetggx03-28-5777RE intoleranceNOLA Healthcare (6 sources)AzithromycinDrug Dlzubkx01-76-9092TcvmuslCCBV Healthcare (1 source)AzithromycinDrug Obasoqo58-09-7454EbkeyzuahC[facility] Medications Current Medications MedicationDrug Class(es)DatesSig (Normalized)Sig (Original)acetaminophen 325 mg / HYDROcodone bitartrate 5 mg oral tablet (4 sources)Opioid Agonisttake 1 tablet by mouth every eight hours as needed HYDROcodone-acetaminophen (NORCO) 5-325 mg per tablet Take 1 tablet by mouth every 8 hours as needed for pain. Activetake 1 tablet by mouth every six hours HYDROcodone-Acetaminophen 5-325 MG 1 tablet as needed Orally every 6 hrs Active Comment on above:Take 1 tablet by mouth every 8 hours as needed for pain. amantadine hydrochloride 100 mg oral tablet (19 sources)Influenza A M2 Protein InhibitorStart: 64-67-0317kwrv 1 tablet by mouth twice dailyAmantadine Hcl 100 mg tablet Active 100 MG PO Twice daily January 29, 2024 12:00am Complies with drug therapyamLODIPine 10 mg oral tablet (20 sources)Dihydropyridine Calcium Channel BlockerStart: 93-02-7227bvlw 1 tablet by mouth once dailyAmlodipine 10 mg tablet Active 10 MG PO Daily January 29, 2024 12:00am FreeTextSi tablet Orally Once a day; Note: Source Status: Taking; Provider: Hiro Kam Complies with drug therapyStart: 09-13-2021 End: 26-07-4773zerb 2 tablets by mouth once dailyAmlodipine 5 mg tablet Discontinued 10 MG PO Daily September 13, 2021 12:00am January 29, 2024 1:49pm Start: 09-13-2021 End: 68-31-5073vebg 10 mg by mouth once dailyAmlodipine Discontinued 10 MG PO Daily September 13, 2021 12:00am January 29, 2024 1:49pmStart: 50-30-9077tyqu 1 tablet by mouth every twenty-four hoursamLODIPine Besylate 10 MG 1 tablet Orally Once a day Jul, ActiveamLODIPine (NORVASC) 5 mg tablet Take by mouth once daily. ActiveComment on above:Take by mouth once daily.ascorbic acid 500 mg oral tablet (5 sources)Vitamin Ctake 1 tablet by mouth once dailyascorbic acid, vitamin C, (VITAMIN C WITH NOVA HIPS) 500 mg tablet Take 500 mg by mouth once daily.Active Comment on above:Take 500 mg by mouth once daily.aspirin 81 mg delayed release oral tablet (14 sources)Platelet Aggregation Inhibitor, Nonsteroidal Anti-inflammatory Drug Start: 57-91-2778Hkpcqfn (Adult Low Dose Aspirin) 81 mg tablet,delayed release (DR/EC) Active 81 MG PO Daily 2023 12:00am Complies with drug therapyatorvastatin 40 mg oral tablet (20 sources)HMG-CoA Reductase InhibitorStart: 08-35-5463egkw 1 tablet by mouth once dailyatorvastatin (LIPITOR) 40 mg tablet Take 1 tablet (40 mg total) by mouth nightly. 30 tablet 01/08/2021 ActiveComment on above:Take 40 mg by mouth once daily.Calcium + D3 600-800 MG-UNIT (10 sources)take 600-800 tablets by mouth once dailytake 600-800 tablets by mouth once dailyCalcium + D3 600-800 MG-UNIT 2 tablet with a meal Orally Once a day Activecalcium carbonate 1500 mg oral tablet (10 sources)take 1 tablet by mouth in the morningcalcium carbonate 1500 (600 Ca) MG tablet Take 600 mg by mouth in the morning. ActiveComment on above:Take 600 mg by mouth.calcium carbonate 1500 mg / cholecalciferol 200 unt oral tablet (20 sources)Vitamin DStart: 73-42-7313dnuv 2 tablets by mouth once dailyCalcium Carbonate-Vitamin D3 600 mg-5 mcg (200 unit) Tablet Active 2 TAB PO Daily September 13, 2021 12:00am Complies with drug therapycalcium carbonate-vitamin D3 (CALCIUM 600 WITH VITAMIN D3) 600 mg(1,500mg) -400 unit tablet,chewable Chew 2 tablets and swallow daily. Activecamphor 0.002 mg/mg / menthol 0.035 mg/mg topical gel (12 sources)Start: 00-47-8390Sbsozpz-Menthol (Freeze It Relief) 0.2-3.5 % gel Active 1 APPLIC TOPICAL 2-4 TIMES PER DAY as needed for pain January 29, 2024 12:00am rub in gently and completely Complies with drug therapycarBAMazepine 200 mg oral tablet (20 sources)Mood StabilizerStart: 11-12-2023 End: 44-70-8546owgr 1 tablet by mouth three times dailyCarbamazepine 200 mg tablet Active 200 MG PO Three times daily January 29, 2024 12:00am Complies w ith drug therapycelecoxib 100 mg oral capsule (8 sources)Nonsteroidal Anti-inflammatory Drugtake 1 capsule by mouth in the morningcelecoxib (CeleBREX) 100 MG capsule Take 100 mg by mouth in the morning and 100 mg in the evening. Activecephalexin 500 mg oral capsule (3 sources)Cephalosporin AntibacterialStart: 46-22-2683wsmu 1 capsule by mouth every eight hoursCephalexin 500 MG 1 capsule Orally every 8 hrs for 2 day(s) Oct, Activechlorzoxazone 500 mg oral tablet (7 sources)Muscle Relaxanttake 1 tablet by mouth every eight hoursChlorzoxazone 500 mg 1 tablet Orally Three times a day for 30 day(s) ActiveclonazePAM 0.5 mg oral tablet (20 sources)BenzodiazepineStart: 72-89-2256pyar 1 tablet by mouth three times dailyClonazepam 0.5 mg tablet Active 0.5 MG PO Three times daily January 29, 2024 12:00am 0.5-1.0 tid Complies with drug therapyStart: 99-06-4315wvgh 1.5 tablets by mouth three times daily at bedtimeclonazePAM (KLONOPIN) 1 mg tablet Indications: Lingual facial buccal dyskinesia , Akathisia , Excessive physiologic tremor Take 1.5 tablets by mouth three times daily for 90 days. [including bedtime]135 tablet 2 01/08/2023 ActiveStart: 14-22-2882aijr 1 tablet by mouth three times dailyclonazePAM (KlonoPIN) 1 mg tablet clonazepam 1 mg tablet take 1 tablet by mouth three times a day 12/08/2020 ActiveStart: 07-05-2020 End: 82-79-6128cfko 1 tablet by mouth twice daily as needed for anxiety Clonazepam 1 mg Tablet Discontinued 1 MG PO Twice daily as needed for Anxiety July 05, 2020 12:00am September 13, 2021 12:00pmStart: 06-28-2020 End: 92-65-5049mlrp 1 tablet by mouth three times dailyClonazepam 1 mg Tablet Discontinued 1 MG PO Three times daily June 28, 2020 12:00am July 05, 2020 10:25amComment on above:Take 1 tablet by mouth three times daily for 90 days. [including bedtime]Take 1 mg by mouth twice daily as needed.Take 1.5 tablets by mouth three times daily for 90 days. [including bedtime]cyclobenzaprine hydrochloride 10 mg oral tablet (20 sources)Muscle RelaxantStart: 12-23-2022 End: 81-50-8560zcxi 1 tablet by mouth three times daily as needed for muscle spasmscyclobenzaprine (FLEXERIL) 10 mg tablet Take 1 tablet (10 mg total) by mouth 3 (three) times a day as needed for muscle spasms. 12/23/2022 Active deutetrabenazine 12 mg oral tablet (20 sources)Start: 90-54-6532tguw 2 tablets by mouth in the morning, then take 2 tablets by mouth at bedtime, then take 2 tablets by mouth twice daily deutetrabenazine 12 mg tablet Take 2 tablets by mouth in the morning and 2 tablets before bedtime. 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 02/26/2022 ActiveStart: 02-02-2022 End: 85-42-5647fsdz 2 tablets by mouth twice daily at mealtimedeutetrabenazine (AUSTEDO) 9 mg tab Indications: Dyskinesia, tardive , Lingual facial buccal dyskinesia , Dyskinesia, orofacial Take 2 tablets (18 mg) by mouth twice daily with meals. 120 tablet 2 02/02/2022 05/03/2022 ActiveStart: 01-02-2022 End: 11-68-8589skcu 1 tablet by mouth twice daily at mealtimedeutetrabenazine (AUSTEDO) 12 mg tab Indications: Dyskinesia, tardive , Lingual facial buccal dyskinesia , Dyskinesia, orofacial Take 1 tablet (12 mg) by mouth twice daily with meals. 60 tablet 0 01/02/2022 02/01/2022 ActiveStart: 05-17-2021 End: 28-78-5070mlow 1 tablet by mouth twice dailyDeutetrabenazine (Austedo) 6 mg tablet Discontinued 6 MG PO Twice daily September 13, 2021 12:00am January 29, 2024 2:08pmComment on above:Take 1 tablet (6 mg) by mouth twice daily with meals.Take 1 tablet (12 mg) by mouth twice daily with meals.Take 2 tablets (18 mg) by mouth twice daily with meals.Take 2 tablets (24 mg) by mouth twice daily with meals.Deutetrabenazine 6 MG (9 sources)take 1 tablet by mouth twice daily at mealtimeDeutetrabenazine 6 MG 1 tablet with food Orally Twice a day Activetake 1 tablet by mouth once daily at mealtimetake 1 tablet by mouth once daily at mealtimeDeutetrabenazine 6 MG 1 tablet with food Orally Once a day ActiveDeutetrabenazine ER (Austedo XR) 30 MG tablet sustained-release 24 hour (2 sources)take 1 tablet by mouth once daily, then take 1 tablet by mouth every twenty-four hoursDeutetrabenazine ER (Austedo XR) 30 MG tablet sustained-release 24 hour Take 30 mg by mouth Daily Activedextromethorphan hydrobromide 2 mg/ml / guaiFENesin 20 mg/ml oral solution (14 sources)Uncompetitive W-lzjgkq-T-aspartate Receptor Antagonist, Sigma-1 Agonisttake 10 mL by mouth every six hours as needed for coughdextromethorphan- guaiFENesin (ROBITUSSIN-DM) 10-100 mg/5 mL liquid Take 10 mL by mouth every 6 (six) hours as needed for cough. Give 10 milliliter by mouth every 6 hours as needed for cough ActiveComment on above:Take 10 mL by mouth every 6 hours as needed.ferrous sulfate 325 mg oral tablet (20 sources)Start: 84-37-7247bwvj 1 tablet by mouth every weekFerrous Sulfate 325 mg (65 mg iron) Tablet Active 325 MG PO 3 Times a week September 13, 2021 12:00am takes every mon, wed, fri Complies with drug therapytake 1 tablet by mouth once daily at breakfastferrous sulfate 325 mg (65 mg iron) tablet Take 325 mg by mouth daily with breakfast. ActiveFerrous Sulfate 325 mg (65 mg iron) cpER Take by mouth. ActiveFerrous Sulfate 325 mg (65 mg iron) cpER Take by mouth. 0 Activetake 1 tablet by mouth every other dayFerrous Sulfate 325 (65 Fe) MG 1 tablet Orally EVERY OTHER DAY Activetake 1 tablet by mouth once dailytake 1 tablet by mouth once dailyFerrous Sulfate 325 (65 Fe) MG 1 tablet Orally Once a day ActiveComment on above:Take by mouth.Take 325 mg by mouth daily with breakfast.fluticasone propionate 0.05 mg/actuat metered dose nasal spray (20 sources)CorticosteroidStart: 39-38-8540sxusvsioxar propionate (FLONASE) 50 mcg/actuation nasal spray 03/19/2022 ActiveStart: 34-20-0207Dgipsejfbes Propionate 50 MCG/ACT Nasal Suspension As directed. Quantity: 0 Refills: 0 Ordered: 21-Sep-2021 DO Start : 21-Sep-2021 ActiveStart: 38-76-0046Nuhlihjxyjx Propionate 50 mcg/actuation [place],Suspension Active 1 SPRAY INTRANASAL Daily September 13, 2021 12:00am Complies with drug therapytake 1 puff(s) by inhalation twice dailyFluticasone Propionate 50 mcg/actuation diskus inhaler Inhale 1 Puff as instructed twice daily. Activetake 1 spray(s) nasal route once daily Fluticasone Propionate 50 MCG/ACT 1 spray in each nostril Nasally Once a day ActiveComment on above:Inhale 1 Puff as instructed twice daily.gabapentin 300 mg oral capsule (20 sources)Anti-epileptic AgentStart: 00-98-3679rgqrqwahmq (NEURONTIN) 300 mg capsule take 1 capsule by mouth IN THE MORNING, 1 CAP IN THE EARLY AFTERNOON AND 2 CAPS IN THE EVENING 09/21/2020 ActiveStart: 06-29-2020 End: 19-44-1256isik 2 capsules by mouth at bedtimeGabapentin 300 mg capsule Discontinued 600 MG PO Bedtime June 29, 2020 12:00am June 01, 2024 12:55pmStart: 99-44-8190ghey 600 mg by mouth at bedtimeGabapentin Active 600 MG PO Bedtime June 29, 2020 12:00amStart: 06-28-2020 End: 19-90-0295Hpqrputksz 300 mg Capsule Discontinued 300 MG PO Twice daily June 28, 2020 12:00am July 05, 2020 10:25am 1 (300MG) in AM, 1 (300 MG) in afternoon, 2 (600 MG) at bedtimetake 1 tablet by mouth at bedtimegabapentin (Neurontin) 600 MG tablet Take 600 mg by mouth at bedtime ActiveComment on above:Take 1 capsule in the morning, one in early afternoon, and 2 in the eveningTake 600 mg by mouth three times a day.guaiFENesin 20 mg/ml oral solution (7 sources)Start: 92-91-1856jwsu 200 mg by mouth every four hours as needed Guaifenesin 100 mg/5 mL liquid Active 200 MG PO Every 4 hours as needed June 01, 2024 1:00am Complies with drug therapylevothyroxine sodium 0.075 mg oral tablet (20 sources)l-ThyroxineStart: 36-71-0732pedp 1 tablet by mouth once daily before breakfastlevothyroxine (SYNTHROID, LEVOTHROID) 75 MCG tablet Take 1 tablet (75 mcg total) by mouth every morning before breakfast. Take on empty stomach 11/26/2019 Activetake 1 tablet by mouth every twenty-four hoursLevothyroxine Sodium 75 MCG 1 tablet Orally Once a day for 30 day(s) Activetake 1 tablet by mouth once dailylevothyroxine (SYNTHROID) 100 mcg tablet Take 100 mcg by mouth once daily. 0 Activetake 1 capsule by mouth once daily before breakfast levothyroxine 75 mcg cap Take 75 mcg by mouth daily before breakfast. 0 Active Comment on above:Take 100 mcg by mouth once daily.Take 75 mcg by mouth daily before breakfast.loperamide hydrochloride 2 mg oral capsule (20 sources)Opioid AgonistStart: 06-72-3922jdwe 1 capsule by mouth every six hours as neededLoperamide (Imodium A-D) 2 mg capsule Active 2 MG PO Every 6 hours as needed June 01, 2024 1:00am Complies with drug therapyStart: 09-13-2021 End: 25-74-8475Dxzjnrbhst (Imodium A-D) 2 mg Capsule Discontinued 1 - 2 MG PO Q6H as needed for Diarrhea September 12:00am January 29, 2024 1:56pmtake 1 tablet by mouth every six hours as needed for diarrhealoperamide (IMODIUM A-D) 2 mg tablet Take 1 tablet (2 mg total) by mouth every 6 (six) hours as needed for diarrhea. Give one tablet by mouth every 6 hours as needed for loose stool Activetake 1 capsule by mouth every six hours as neededloperamide (IMODIUM) 2 mg cap(s) Take 2 mg by mouth four times daily as needed. Activetake 1 tablet by mouth every six hoursImodium A-D 2 MG 1 tablet as needed Orally Four times a day ActiveComment on above:Take 2 mg by mouth four times daily as needed.menthol 0.04 mg/mg topical gel (20 sources)Start: 37-93-3893Ydpaabe (Biofreeze (Menthol)) 4 % gel Active 1 APPLIC TOPICAL 2-4 TIMES PER DAY as needed June 01, 2024 1:00am Complies with drug therapyStart: 09-13-2021 End: 95-96-5916Uxylogc (Biofreeze (Menthol)) 4 % Gel Discontinued 1 APPLIC TOPICAL Q8H as needed for shoulder painJune 2021 12:00am October 18, 2021 7:26ammenthol (BIOFREEZE, MENTHOL,) 4 % topical gel Apply to affected area three times daily as needed. ActiveComment on above:Apply to affected area three times daily as needed.24 hr metoprolol succinate 50 mg extended release oral tablet (15 sources)beta-Adrenergic BlockerStart: 53-68-0392sxml 1 tablet by mouth every twenty-four hoursMetoprolol Succinate 50 mg tablet extended release 24 hr Active MG PO February 24, 2024 1:00am Complies with drug therapytake 1 tablet by mouth in the morningmetoprolol tartrate (Lopressor) 50 MG tablet Take 1 tablet by mouth in the morning and 1 tablet before bedtime. Activemirtazapine 15 mg oral tablet (15 sources)Start: 68-60-3693kcdd 1 tablet by mouth once dailyMirtazapine 15 mg tablet Active 15 MG PO Daily June 01, 2024 1:00am Complies with drug therapynitroglycerin 0.4 mg sublingual tablet (6 sources)Nitrate VasodilatorStart: 16-44-5258ndvpzsqlipzby (Nitrostat) 0.[address] 1 tablet under the tongue every 5 (five) minutes if needed for chest pain (x 3 doses) 05/11/2023 Activeondansetron 4 mg oral tablet (20 sources)Serotonin-3 Receptor AntagonistStart: 56-78-4084znes 1 tablet by mouth once daily as needed for nausea and vomitingOndansetron Hcl 4 mg tablet Active 4 MG PO Daily as needed for nausea and vomiting February 12, 2024 12:00am Complies with drug therapyStart: 51-89-4833zmfb 4 mg by mouth every six hoursOndansetron Hcl Active 4 MG PO Every 6 hours January 23, 2024 12:00am Start: 10-09-2021 End: 82-40-3393tyic 1 tablet by mouth every four hoursOndansetron Hcl (Zofran) 4 mg Tablet Discontinued 4 MG PO Every 4 hours October 09, 2021 12:00am February 12, 2024 1:20pmtake 1 tablet by mouth every eight hours as needed for nausea and vomitingondansetron (ZOFRAN) 4 mg tablet Take 1 tablet (4 mg total) by mouth every 8 (eight) hours as needed for nausea or vomiting. ActiveComment on above: Take by mouth every 8 hours as needed for nausea/vomiting.pantoprazole 40 mg oral granules (20 sources)Proton Pump InhibitorStart: 73-67-4059ndme 40 mg by mouth once daily Pantoprazole (Protonix) [address] for susp in packet Active 40 MG PO Daily June 01, 2024 1:00am Complies with drug therapyStart: 01-23-2024 End: 27-17-6480bhvi 1 tablet by mouth once dailyPantoprazole (Protonix) 40 mg tablet,delayed release (DR/EC) Discontinued 40 MG PO Daily January 23, 2024 12:00am June 01, 2024 12:55pmStart: 55-17-8774qnfz 40 mg by mouth twice dailyPantoprazole Active 40 MG PO Twice daily June 28, 2020 12:00amComment on above:Take 40 mg by mouth twice daily.Take 40 mg by mouth once daily. polyethylene glycol 3350 90329 mg powder for oral solution (20 sources)Osmotic LaxativeStart: 02-11-2024 End: 10-37-3628Axblmzhlpftk Glycol 3350 (Miralax) 17 gram/dose powder Active 17 GM PO Daily June 01, 2024 1:00am Complies with drug therapyStart: 09-13-2021 End: 94-22-9610Cuosvhqtdmnd Glycol 3350 (Miralax) 17 gram/dose Powder Discontinued 17 GM PO Daily as needed for Constipation September 13, 2021 12:00am January 29, 2024 1:57pmComment on above:Take by mouth once daily. Dissolve dose in 4 - 8 ounces of liquid and take as directed.primidone 50 mg oral tablet (20 sources)Anti-epileptic AgentStart: 80-83-9111upvn 1 tablet by mouth once daily at bedtimePrimidone 50 mg tablet Active 50 MG PO Daily at bedtime June 01, 2024 1:00am Complies with drug therapyStart: 06-28-2020 End: 62-77-4583ityh 1 tablet by mouth twice dailyPrimidone 250 mg Tablet Discontinued 250 MG PO Twice daily June 28, 2020 12:00am June 01, 2024 12:55pmtake 250 mg by mouth once dailyPRIMIDONE ORAL Take 250 mg by mouth Daily at 0630. seizures ActiveComment on above:Take 1 tablet by mouth twice daily. Sodium Chloride (20 sources)Start: 44-83-0286Webhsd Chloride 1 gram tablet Active 1000 MG PO 1 to 4 times daily as needed June 01, 2024 1:00am Complies with drug therapy Start: 75-89-5265Cgmwko Chloride 1 gram tablet Active 1000 MG PO 1 to 4 times daily as needed June 01, 2024 1:00amStart: 14-45-4245Pevfnq Chloride 1 gram tablet Active 1000 MG PO 1 to 4 times daily as needed June 01, 2024 12:00amStart: 10-09-2021 End: 04-63-9203eqzl 1 tablet by mouth once dailySodium Chloride 1,000 mg Tablet,Soluble Discontinued 1000 MG PO Daily October 09, 2021 12:00am June 01, 2024 12:55pmStart: 11-36-3699lqvy 1 tablet by mouth once dailysodium chloride 1 gram tablet Take 1 tablet (1 g total) by mouth daily. 30 tablet 12/26/2020 Activetake 1 tablet by mouth three times dailysodium chloride 1 g tab Take 1 g by mouth three times daily. Activetake 1 tablet by mouth three times dailysodium chloride 1 g tab Take 1 g by mouth three times daily. 0 ActiveSodium Chloride 1 GM as directed Orally ActiveComment on above:Take 1 g by mouth three times daily.sucralfate 1000 mg oral tablet (20 sources)Aluminum ComplexStart: 09-13-2021 End: 12-23-2068fsfrvcowpo (CARAFATE) 1 gram tablet 02/17/2022 Activetake 1 tablet by mouth every six hoursSucralfate 1 GM 1 tablet on an empty stomach Orally FOUR TIMES A DAY ActiveComment on above:Take 1 g by mouth four times daily.tetrabenazine 25 mg oral tablet (14 sources)Vesicular Monoamine Transporter 2 InhibitorStart: 62-49-6822yfif 1 tablet by mouth once dailyTetrabenazine 25 mg tablet Active 25 MG PO Daily June 01, 2024 1:00am Complies with drug therapyStart: 58-95-5658jdxf 1 tablet by mouth twice dailytetrabenazine (XENAZINE) 25 mg tablet Indications: Dyskinesia, tardive Take 1 tablet by mouth two times a day. 60 tablet 2 12/27/2023 ActivetraZODone hydrochloride 100 mg oral tablet (20 sources)Serotonin Reuptake InhibitorStart: 32-96-1796jnyNNWhvz (DESYREL) 100 mg tablet 12/29/2022 ActiveStart: 94-26-2007Lstcvajem 150 mg tablet Active 200 MG PO Bedtime October 09, 2021 12:00am Complies with drug therapyStart: 82-47-7458kokj 200 mg by mouth at bedtimeTrazodone Active 200 MG PO Bedtime October 09, 2021 12:00amStart: 76-01-1913dvao 150 mg by mouth at bedtimeTrazodone Active 150 MG PO Bedtime October 09, 2021 12:00amStart: 06-28-2020 End: 28-99-6785cmbw 1 tablet by mouth once daily at bedtimeTrazodone 150 mg Tablet Discontinued 150 MG PO Daily at bedtime June 28, 2020 12:00am September 13, 2021 12:02pmComment on above:Take 150 mg by mouth daily at bedtime. Completed/Discontinued Medications MedicationDrug Class(es)DatesSig (Normalized)Sig (Original)acetaminophen 500 mg oral tablet (20 sources)Start: 02-11-2024 End: 33-25-8329ibof 1 tablet by mouth every six hours as needed for pain Acetaminophen 500 mg tablet Discontinued 500 MG PO Q6H as needed for Pain February 11, 2024 12:00am June 01, 2024 12:55pm DO NOT RECONCILE UNTIL DOS 02/12/24 TO BE USED POST OPStart: 87-52-5921ucbz 2 tablets by mouth three times daily as needed for painAcetaminophen (Tylenol Extra Strength) 500 mg Tablet Active 1000 MG PO Three times daily as needed for pain October 09, 2021 12:00am Complies with drug therapytake 1 tablet by mouth every eight hours as neededacetaminophen (TYLENOL EXTRA STRENGTH) 500 mg tablet Take 1 tablet (500 mg total) by mouth every 8 (eight) hours as needed. Activetake 1 tablet by mouth every four hours as neededAcetaminophen 325 MG 1 tablet as needed Orally every 4 hrs Activetake 2 tablets by mouth every eight hoursTylenol Extra Strength 500 MG TABS TAKE 2 TABLET Every 8 hours Quantity: 0 Refills: 0 Ordered: 25-Sep-2021 DO ActiveComment on above:Take 500 mg by mouth every 8 hours as needed. acetaminophen 325 mg / oxyCODONE hydrochloride 5 mg oral tablet (9 sources)Opioid AgonistStart: 40-11-9829nvwp 1 tablet by mouth every four hours as needed for painPercocet 5-325 MG 1 tablet as needed for pain Orally up to every 4 hrs for 5 days KALEE: [id number] 2021 Not-Takingalendronic acid 70 mg oral tablet (20 sources)BisphosphonateStart: 05-07-2018 End: 86-90-2593pytn 1 tablet by mouth every weekAlendronate 70 mg Tablet Discontinued 70 MG PO every week June 28, 2020 12:00am September 13, 2021 12:00pm take 1 tablet by mouth once dailyFosamax 70 MG 1 tablet 30 minutes before the first food, beverage or medicine of the day with plainwater Orally ActiveComment on above:once each week.Take 70 mg by mouth one time a week. In AM with cup of water on empty stomach. Nothing else by mouth and stay upright for 30 min. busPIRone hydrochloride 10 mg oral tablet (20 sources)Start: 64-74-5253pguu 2 tablets by mouth once dailybusPIRone HCl - 15 MG Oral Tablet TAKE 2 TABLET Daily Quantity: 0 Refills: 0 Ordered: 15-Sep-2021 DOStart : 15-Sep-2021 ActiveStart: 12-31-8433timy 1 tablet by mouth twice daily Buspirone 10 mg tablet Active 10 MG PO Twice daily September 13, 2021 12:00pm Complies with drug therapyStart: 67-49-6106ixyg 10 mg by mouth once daily at bedtimeBuspirone Active 10 MG PO Daily at bedtime September 13, 2021 12:00pmStart: 09-13-2021 End: 88-31-3243pxxp 1 tablet by mouth twice dailyBuspirone 15 mg tablet Discontinued 15 MG PO Twice daily September 13, 2021 12:00am January 23, 2024 9 :46amStart: 07-05-2020 End: 04-61-6694vvwq 1 tablet by mouth three times dailyBuspirone 10 mg tablet Discontinued 10 MG PO Three times daily July 05, 2020 12:00am September 13, 2021 12:00pmStart: 06-29-2020 End: 91-36-9371kofo 1 tablet by mouth at bedtimeBuspirone 10 mg tablet Discontinued 10 MG PO Bedtime June 29, 2020 12:00am July 05, 2020 10:25am Start: 06-29-2020 End: 57-58-7029czcc 10 mg by mouth at bedtimeBuspirone Discontinued 10 MG PO Bedtime June 29, 2020 12:00am July 05, 2020 10:25amStart: 06-28-2020 End: 59-81-0696Ihzfygqgy 10 mg Tablet Discontinued 15 MG PO BID@09,14 June 28, 2020 12:00am July 05, 2020 10:25am 1.5 tabs in AM, 1.5 tabs in afternoon, 1 tab in eveningStart: 06-28-2020 End: 50-75-4233Vkhrcffxg Discontinued 15 MG PO BID@09,14 June 28, 2020 12:00am July 05, 2020 10:25am 1.5 tabs in AM, 1.5 tabs in afternoon, 1 tab in eveningStart: 49-86-6939jgns 1 tablet by mouth three times dailybusPIRone (BUSPAR) 5 mg tablet Indications: Anxiety Take 1 tablet by mouth three times daily. 90 tablet 2 10/17/2018 ActivebusPIRone (Buspar) 10 MG tablet Take 15 mg by mouth in the morning and 15 mg in the evening. Activetake 1 tablet by mouth three times dailybusPIRone (BUSPAR) 15 mg tablet Take 15 mg by mouth three times daily. ActiveComment on above:Take 1 tablet by mouth three times daily.Take 15 mg by mouth three times daily.Take 10 mg by mouth three times daily.Calcium (1 source)Phosphate Binder, CalciumCalcium 600 + D TABS TAKE 2 TABLET Daily Quantity: 0 Refills: 0 Ordered: 25-Sep-2021 DO Activedocusate sodium 100 mg oral capsule (10 sources)Start: 02-11-2024 End: 90-76-5735joyd 1 capsule by mouth twice daily as needed for constipation Docusate Sodium (Colace) 100 mg capsule Discontinued 100 MG PO Twice daily as needed for Constipation 20 February 11, 2024 12:00am June 01, 2024 12:55pmdoxycycline hyclate 100 mg oral tablet (20 sources)Tetracycline-class DrugStart: 02-13-2024 End: 71-70-8290imay 1 tablet by mouth twice dailyDoxycycline Hyclate 100 mg Tablet Discontinued 100 MG PO Twice daily 0 February 13, 2024 12:00amNovember 2023 10:33amStart: 02-11-2024 End: 68-86-0361boyg 1 capsule by mouth twice dailyDoxycycline Hyclate 100 mg capsule Discontinued 100 MG PO Twice daily 14 February 11, 2024 12:00am February 12, 2024 1:20pmescitalopram 10 mg oral tablet (20 sources)Serotonin Reuptake InhibitorStart: 07-05-2020 End: 96-09-9412ajrg 1 tablet by mouth once dailyEscitalopram Oxalate (Lexapro) 10 mg tablet Discontinued 10 MG PO Daily July 05, 2020 12:00amSeptember 13, 2021 12:01pmStart: 07-16-2018 End: 04-20-3092kczm 1 tablet by mouth once dailyEscitalopram Oxalate 20 mg Tablet Discontinued 20 MG PO Daily June 28, 2020 12:00am July 05, 2020 10:25amComment on above:Take 20 mg by mouth once daily.furosemide 20 mg oral tablet (17 sources)Loop DiureticStart: 07-05-2020 End: 91-78-9090nehf 1 tablet by mouth once dailyFurosemide 20 mg Tablet Discontinued 20 MG PO Daily at 0800 30 July 05, 2020 12:00am September 13, 2021 12:01pmibuprofen 200 mg oral tablet (20 sources)Nonsteroidal Anti-inflammatory DrugStart: 09-13-2021 End: 54-76-6516kzuz 3 tablets by mouth every eight hours as needed for pain Ibuprofen 200 mg Tablet Discontinued 600 MG PO Q8H as needed for Pain September 13, 2021 12:00am January 29, 2024 1:56pmStart: 09-13-2021 End: 71-35-9002qtbp 600 mg by mouth every eight hoursIbuprofen Discontinued 600 MG PO Q8H September 13, 2021 12:00am January 29, 2024 1:56pmIbuprofen 200 mg cap Take by mouth every 6 hours as needed. Activetake 3 capsules by mouth every eight hoursIbuprofen 200 MG 3 capsule with food or milk as needed Orally Three times a day Activetake 3 tablets by mouth once daily as neededIbuprofen 200 MG Oral Tablet TAKE 3 TABLET Daily PRN Quantity: 0 Refills: 0 Ordered: 25-Sep-2021 DOActiveComment on above:Take by mouth every 6 hours as needed.Magnesium (20 sources)Start: 06-28-2020 End: 04-42-7532hrou 1 tablet by mouth once daily at bedtimeMagnesium 250 mg Tablet Discontinued 250 MG PO Daily at bedtime June 28, 2020 12:00am September 13, 2021 12:01pmStart: 06-28-2020 End: 92-07-3580uxci 1 tablet by mouth once daily at bedtimeMagnesium 250 mg Tablet Discontinued 250 MG PO Daily at bedtime June 27, 2020 11:00pm September 13, 2021 11:01amStart: 06-28-2020 End: 57-44-2068enru 250 mg by mouth once daily at bedtimeMagnesium Discontinued 250 MG PO Daily at bedtime June 27, 2020 11:00pm September 13, 2021 11:01amStart: 06-28-2020 End: 90-12-2308gwun 250 mg by mouth once daily at bedtimeMagnesium Discontinued 250 MG PO Daily at bedtime June 28, 2020 12:00am September 13, 2021 12:01pm Magnesium 250 mg tab Take 250 mg by mouth. ActiveMagnesium 250 mg tab Take 250 mg by mouth. 0 ActiveComment on above:Take 250 mg by mouth.meloxicam 15 mg oral tablet (10 sources)Nonsteroidal Anti-inflammatory DrugStart: 02-11-2024 End: 16-00-9531mrkn 1 tablet by mouth once dailyMeloxicam 15 mg tablet Discontinued 15 MG PO daily 14 14 February 11, 2024 12:00am February 12, 2024 1:20pmmethocarbamol 750 mg oral tablet (20 sources)Muscle RelaxantStart: 06-28-2020 End: 50-22-8762bbrq 1 tablet by mouth three times dailyMethocarbamol 750 mg Tablet Discontinued 750 MG PO Three times daily June 28, 2020 12:00am January 29, 2024 1:57pm End: 60-52-0908nxqo 1 tablet by mouth four times dailymethocarbamol (ROBAXIN) 750 mg tablet Take 750 mg by mouth four times daily. 0 11/12/2023 Discontinued (Discontinued by another Health Care Provider)Comment on above:Take 750 mg by mouth four times daily.oxyCODONE hydrochloride 5 mg oral tablet (20 sources)Opioid AgonistStart: 02-11-2024 End: 01-11-8938wbax 1 tablet by mouth every six hours as needed for pain Oxycodone 5 mg tablet Discontinued 5 MG PO Q6H as needed for Pain 7 February 13, 2024 June 01, 2024 12:55pmpravastatin sodium 40 mg oral tablet (20 sources)HMG-CoA Reductase InhibitorStart: 06-28-2020 End: 33-60-2414mxsm 1 tablet by mouth once daily at bedtimePravastatin 40 mg Tablet Discontinued 40 MG PO Daily at bedtime June 28, 2020 12:00am September 13, 2021 12:01pmComment on above:Take 40 mg by mouth once daily.Triamcinolone (8 sources)CorticosteroidStart: 01-59-7181Ucstmxp -40 mg May, 40 mg valbenazine 80 mg oral capsule (20 sources)Start: 06-28-2020 End: 20-90-8480mdpu 1 capsule by mouth once dailyValbenazine (Ingrezza) 80 mg Capsule Discontinued 80 MG PO Daily June 28, 2020 12:00am September 12:01pm Problems Active Problems Problem ClassificationProblemDateDocumented DateEpisodic/Chronic Administrative/social admission (1 source)Lives in a fdc; Translations: [Person living in residential institution]EpisodicAnxiety disorders (20 sources)Anxiety state; Translations: [Anxiety state, unspecified]Onset: 520642-38-6754UwwixaaNtmnhme on above:Problem List clean-up per request of Phys. EHR CmteChronic kidney disease (12 sources)Chronic kidney disease; Translations: [Chronic kidney disease, unspecified] Resolved: 496500-31-8807WegoznjExlgmcixbfuv of device; implant or graft (20 sources)Mechanical complication associated with orthopedic device; Translations: [Other mechanical complication of other internal orthopedic devices, implants and grafts, initial encounter]Onset: 887294-49-7796 EpisodicCoronary atherosclerosis and other heart disease (2 sources)Atherosclerotic heart disease of [place] coronary artery without angina pectoris; Translations: [Atherosclerotic heart disease of [place] coronary artery without angina pectoris]Onset: 35-25-8672HopdsxjWleqnxgtjb and other anemia (3 sources)Iron deficiency anemia; Translations: [Iron deficiency anemia, unspecified]35-17-4324CtoytvrkAdehdodmk of lipid metabolism (20 sources)Hyperlipidemia; Translations: [Other and unspecified hyperlipidemia] Onset: 12-06-2021 Resolved: 70-90-3460LlioffiY Codes: Fall (4 sources)Unspecified fall, initial encounter; Translations: [Other fall on same level, initial encounter]Onset: 39-68-3385OcekttgyQufuqkuxyj disorders (12 sources)Gastro-esophageal reflux disease without esophagitis; Translations: [Gastroesophageal reflux disease]Onset: 073176-09-0231MyzksuhTvjkfngxx hypertension (20 sources)Benign essential hypertension; Translations: [Benign essential hypertension]Onset: 03-22-2021 Resolved: 35-34-8337UfocmnnXtcpi and electrolyte disorders (20 sources)Hypo-osmolality and hyponatremia; Translations: [Acute hyponatremia] Onset: 12-23-2020 Resolved: 22-43-5926BvdvbcvvAzqguct on above:Problem List clean-up per request of Phys. EHR CmteFracture of lower limb (14 sources)Closed fracture of distal fibula ; Translations: [Other fracture of upper and lower end of left fibula, subsequent encounter for closed fracture with routine healing]38-77-9228IhgicxakGkkxbfzg of upper limb (2 sources)Closed fracture of distal phalanx of ring finger of left hand; Translations: [Displaced fracture ofdistal phalanx of left ring finger, initial encounter for closed fracture]65-26-1996MadwqdsxDhmtfwqcbcwjhpwv hemorrhage (4 sources)Hemorrhage of anus and rectum; Translations: [HEMORRHAGE OF ANUS AND RECTUM]Onset: 48-39-0391VoptixocShihrwm and fatigue (1 source)Weakness; Translations: [WEAKNESS]Onset: 73-07-5144QybqekidImcdbbmhdu disorders (1 source)Hormone replacement therapy; Translations: [HORMONE REPLACEMENT THERAPY]Onset: 72-78-5471StnyqkaeEpbw disorders (20 sources)Depressive disorder; Translations: [Depressive disorder, not elsewhere classified]Onset: 822650-38-2408EovaxxsVbotlzo on above:Problem List clean-up per request of Phys. 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 DRUG THERAPY]Onset: 42-57-4007JpgkmfplXddba bone disease and musculoskeletal deformities (11 sources)Avascular necrosis of bone of hip; Translations: [Idiopathic aseptic necrosis of left femur]Onset: 485768-67-3505QntmbjcIoljl connective tissue disease (20 sources)History of reverse prosthetic total arthroplasty of right shoulder; Translations: [Presence of right artificial shoulder joint]Onset: 05-14-2023 33-75-1211DjfwxzgDqzdh connective tissue disease (20 sources)Presence of right artificial shoulder joint; Translations: [Shoulder joint replacement]Onset: 09-18-2021 Resolved: 70-56-0370WruiqbrGnjrr connective tissue disease (10 sources)History of operative procedure on shoulder; Translations: [Presence of unspecified artificial shoulder joint]01-47-9737NlibrjwJiwqb connective tissue disease (15 sources)Presence of unspecified artificial shoulder joint; Translations: [Shoulder joint replacement]Onset: 412662-99-0288JlflffmBmsze connective tissue disease (2 sources)Presence of left artificial hip joint; Translations: [Presence of left artificial hip joint]Onset: 37-19-3340FlflxooJhusb connective tissue disease (14 sources)Unspecified rotator cuff tear or rupture of right shoulder, not specified as traumatic; Translations: [Tear of right rotator cuff, unspecified tear extent, unspecified whether traumatic]Onset: 05-30-2021 Resolved: 43-87-0970OazixyjfAxqpl connective tissue disease (2 sources)Myalgia, unspecified site; Translations: [Myalgia, unspecified site] Onset: 04-18-9500LovynmzhYnupa diseases of kidney and ureters (17 sources)Hydronephrosis; Translations: [Unspecified hydronephrosis]06-30-2020 EpisodicComment on above:Problem List clean-up per request of Phys. 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Other hereditary and degenerative nervous system conditions (1 source)Restless legs syndrome; Translations: [RESTLESS LEGS SYNDROME]Onset: 16-73-7659SbtzcwrCfwou hereditary and degenerative nervous system conditions (20 sources)Movement disorder; Translations: [Extrapyramidal and movement disorder, unspecified]Onset: 974818-28-2529FvlbfeaNgylw hereditary and degenerative nervous system conditions (20 sources)Tardive dyskinesia; Translations: [Drug induced subacute dyskinesia] EpisodicOther hereditary and degenerative nervous system conditions (1 source)Drug induced subacute dyskinesia; Translations: [DRUG INDUCED SUBACUTE DYSKINESIA]Onset: 55-58-9634RhnmcbrsQbbyi nervous system disorders (17 sources)Metabolic encephalopathy; Translations: [Metabolic encephalopathy] 28-06-6257LfjqediFpogbaz on above:Problem List clean-up per request of Phys. EHR CmteOther nervous system disorders (1 source)Other chronic pain; Translations: [OTHER CHRONIC PAIN]Onset: 68-19-3177SrjoomwSkpgx nervous system disorders (17 sources)Abnormal movement; Translations: [Unspecified abnormal involuntary movements]65-39-9363EpbluatsPgmdnep on above:Problem List clean-up per request of Phys. EHR CmteOther nervous system disorders (1 source)Enhanced physiological tremor; Translations: [Tremor, unspecified] EpisodicOther nervous system disorders (13 sources)Multifactorial gait problem; Translations: [Other abnormalities of gait and mobility]Onset: 789809-36-9309LpnhshwwBpxcv non-traumatic joint disorders (20 sources)Pain in right shoulder; Translations: [Right shoulder pain]Onset: 05-30-2021 Resolved: 40-01-5023ScvosdkmKwmjw non-traumatic joint disorders (16 sources)Pain in right knee; Translations: [Right knee pain]Onset: 07-02-2024 51-38-8446UlrhzqiwJcohp nutritional; endocrine; and metabolic disorders (20 sources)Hypophosphatemia; Translations: [Other disorders of phosphorus metabolism]Onset: 666919-24-2135AvthjpfQpqzuhs on above:Problem List clean-up per request of Phys. EHR CmteOther nutritional; endocrine; and metabolic disorders (20 sources)Hypocalcemia; Translations: [Hypocalcemia]Onset: 07-04-2023 62-93-7306MmsgxjnIflkbrn on above:Problem List clean-up per request of Phys. EHR CmteOther nutritional; endocrine; and metabolic disorders (1 source)Body mass index less than 20; Translations: [Body Mass Index less than 19, adult]EpisodicResidual codes; unclassified (1 source)Finding related to sleep; Translations: [Sleep apnea, unspecified] 29-28-4687JjpmhlcCmnhpqgf codes; unclassified (17 sources)Altered mental status; Translations: [Altered mental status, unspecified]03-72-9149ZijtzwrdFmmyrcx on above:Problem List clean-up per request of Phys. EHR CmteSepticemia (except in labor) (17 sources)Sepsis; Translations: [Sepsis, unspecified organism]06-30-2020 EpisodicComment on above:Problem List clean-up per request of Phys. EHR Cmte Superficial injury; contusion (1 source)Contusion of right shoulder, initial encounter; Translations: [CONTUSION RIGHT SHOULDER INITIAL]Onset: 78-58-6960ZfflbqniHovweez disorders (20 sources)Hypothyroidism; Translations: [Unspecified acquired hypothyroidism] Onset: 169919-53-5051TpdmajcVotzikyrhoqu (1 source)CONTACT W/AND (SUSP) EXPOS COVID-19; Translations: [CONTACT W/AND (SUSP) EXPOS COVID-19]Onset: 16-46-4570Jamemyktbdgo (2 sources)LOW BACK PAIN, UNSPECIFIED; Translations: [LOW BACK PAIN, UNSPECIFIED]Onset: 37-60-4970Avqbh infection (4 sources)COVID-19; Translations: [COVID-19]Onset: 04-19-2022 Past or Other Problems Problem ClassificationProblemDateDocumented DateEpisodic/ChronicAbdominal hernia (11 sources)Hiatal hernia; Translations: [Diaphragmatic hernia without obstruction or gangrene]Onset: 155852-03-3771UplzivpdDkmj and rectal conditions (12 sources)Rectal prolapse; Translations: [Rectal prolapse]Onset: 02-04-2021 75-83-5650PlcoapjcGvjcmlswlr and other anemia (1 source)Anemia, unspecifiedOnset: 03-22-2021 Resolved: 94-36-5579SylciteoYxeyosdbuu and other anemia (11 sources)Anemia; Translations: [Anemia, unspecified]Onset: 03-23-2022 Resolved: 849808-85-0305UhuebbgvOzrqccdz of neck of femur (hip) (11 sources)Closed fracture of neck of femur; Translations: [Fracture of unspecified part of neck of unspecified femur, initial encounter for closed fracture]Onset: 202944-38-0165EbujoxblKrqkqj and vomiting (15 sources)Nausea; Translations: [Nausea with vomiting, unspecified]Onset: 56-52-5786SjtamzhuRfkcz connective tissue disease (20 sources)Rhabdomyolysis; Translations: [Rhabdomyolysis]Onset: 07-04-2023 54-50-9746SrcdwakvBzwwdkt on above:Problem List clean-up per request of Phys. EHR CmteOther connective tissue disease (11 sources)Swelling of lower limb; Translations: [Other specified soft tissue disorders]Onset: 947780-17-7521SuqfrmlhKbvxr connective tissue disease (11 sources)Muscle weakness; Translations: [Muscle weakness (generalized)]Onset: 363917-05-2391WycbubojCcpat diseases of kidney and ureters (2 sources)Unspecified hydronephrosisOnset: 03-22-2021 Resolved: 35-47-0803CqnlgbcbAgybo lower respiratory disease (12 sources)Apnea; Translations: [Apnea, not elsewhere classified]Onset: 327306-65-3051GbzquswsUddta non-traumatic joint disorders (11 sources)Pain of left hip joint; Translations: [Pain in left hip]Onset: 636510-04-1745QiaimkntGbrsx nutritional; endocrine; and metabolic disorders (1 source)Abnormal weight lossOnset: 03-22-2021 Resolved: 90-26-6551DavbfuntRouqi screening for suspected conditions (not mental disorders or infectious disease) (20 sources)Electrocardiogram abnormal; Translations: [Nonspecific abnormal electrocardiogram [ECG] [EKG]]Onset: 485642-84-3091VjtuhjziEemyfprbd (except that caused by tuberculosis or sexually transmitted disease) (11 sources)Pneumonia; Translations: [Pneumonia, unspecified organism] Resolved: 473459-37-7655DjdxstchBrmxgljx codes; unclassified (1 source)Other specified postprocedural statesOnset: 10-17-2021 Resolved: 64-64-0477PjoyfjpjZfglnlkaq and history of mental health and substance abuse codes (2 sources)Ex-smoker; Translations: [Personal history of tobacco use]Onset: 17-27-2350BalaxybyWrmtjnb on above:Quit in ;Spondylosis; intervertebral disc disorders; other back problems (1 source)Cervicalgia; Translations: [CERVICALGIA]Onset: 31-20-2492Mvtripgw Sprains and strains (1 source)Strain of muscle, fascia and tendon of lower back, initial encounter; Translations: [STRAIN MUSC FASC TENDON LW BACK INT]Onset: 37-76-4331Ycggoqvk Unclassified (1 source)LOW BACK PAIN, UNSPECIFIED; Translations: [LOW BACK PAIN, UNSPECIFIED] Onset: 74-58-9631Dbpeo infection (20 sources)Disease caused by 2019-nCoV; Translations: [COVID-19]Onset: 07-04-2023 Resolved: 082411-33-9998LryvnrlkQvxrjih on above:Problem List clean-up per request of Phys. EHR Cmte Results Test NameValueInterpretationReference RangeFacilityOffice Visiton 01-22-2025 Follow-up [id number] Melanie Espinoza 1955 F Date Provider Department Center 01/22/2025 08503-SDGNJGLEONIE HERNANDEZ [facility] Family History Problem Relation Age of Onset Hypertension Mother Stroke Mother Heart attack Father Family Status - Relation Status Age at Mother Father Level of Service:90848 [place] OFFICE/OUTPATIENT ESTABLISHED LOW MDM 20 MIN Reason for Visit and Comments: Follow-up [465163] - Patient is here today for a 6 month follow up Hypertension [034862] Coronary Artery Disease [187] Hyperlipidemia [182]NormalHolmes County [facility]29on 83-92-831560 Addended by: ALEIDA NUÑEZ on: 01/08/2025 04:04 PM Modules accepted: OrdersNormalUnivers[address] 01-08-2025 shadi Sandoval MD to Eiv Orellana MA 01/03/25 5:25 PM LDL is [...] 2 to 3 months. Order faxed to [facility]. [address] [phone] had CMP and LIPIDS drawn in Nov 2024 as well. Then she just had them again today. FYI. They're scanned in. Doesn't look like they jesica ALT.[address] [phone] Aleida Harris MA those labs are from July, Lipids look very good, continue current management, recheck fasting lipids and AST ALT now Spoke to Yamilka nurse at [facility]. Advised nurse of lab results and Dr. Sandoval's recommendation. Order for repeat labs faxed to [facility] HospitalTelephone [phone] Melanie Espinoza 1955 F Date Provider Department Center 12/31/2024 48869-BEGMUCWQYUALEIDA NUÑEZ [facility] Family History Problem Relation Age of Onset Hypertension Mother Stroke Mother Heart attack Father Family Status - Relation Status Age at Mother Father DeceasedNormalUniversMercy Health – The Jewish HospitalX-ray reportOrdered By: Tai Taylor on 78-60-3912Hnybk reportDAYTON [facility] [address] [place] [address] XRay Report Signed Patient: Melanie Espinoza MR#: [id number] : 1955 Acct:[id number] Age/Sex: 69 / F ADM Date: 5 Loc: [facility] Room: Type: REG CLI Attending Dr: Nickolas [...] FINDINGS. Impression dictated by: Tai Taylor Jr., Ubaldo 08/10/2024 9:36 PM Dictation Location: [facility]-18 Transcribed By: [facility] 08/10/242135 Dictated By: Tai Taylor Jr, DO 08/10/242133 Signed By: 08/10/242135 [facility] min 2V*on 87-10-9218NM shoulder RT min 2V*[facility] [address] [place] [address] XRay Report Signed Patient: Melanie Espinoza MR#: [id number] : 1955 Acct:[id number] Age/Sex: 69 / F ADM Date: 08/10/24 Loc: [facility] Room: Type: [facility] CLI Attending Dr: Nickolas Hawthorne DO Copies to: Nickolas Hatwhorne DO Ordering Provider: Nickolas Hawthorne DO Date [...] FINDINGS. Impression dictated by: Tai Taylor Jr., DSofíaOSofía 08/10/2024 9:36 PM Dictation Location: [facility]--18 Transcribed By: [facility] 08/10/242135 Dictated By: Tai Taylor Jr, DO 08/10/242133 Signed By: 08/10/242135[facility] Physician GroupOffice Visiton 06-79-5337Jliaag- up [id number] Melanie Espinoza 1955 F Date Provider Department Center 08/07/2024 45660-OCEUFLLEONIE HERNANDEZ [facility] Family History Problem Relation Age of Onset Hypertension Mother Stroke Mother Heart attack Father Family Status - Relation Status Age at Mother Father Level of Service:45442 [place] OFFICE/OUTPATIENT ESTABLISHED LOW MDM 20 MIN Reason for Visit and Comments: Hyperlipidemia [182] Hypertension [752271] Coronary Artery Disease [187] Follow-up [233825][facility] reportOrdered By: Tai Taylor on 82-90-1008Gsfvj reportFIRSELECT MEDICAL [facility] [address] [place] [address] XRay Report Signed Patient: Melanie Espinoza MR#: [id number] : 1955 Acct:[id number] Age/Sex: 69 / F ADM Date: 5 Loc: [facility] Room: Type: [facility] Attending Dr: Nickolas Hawthorne DO Copies to: Nickolas Hawthorne DO~ Ordering Provider: Nickolas Hawthorne DO Date of Service: 07/02/24 XR/XR knee RT 4V*: M25.561 - Pain in right knee ([id number]) XR/XR knee LT 2V: M25.561 - Pain in right knee BILATERAL KNEE - 2 views each CLINICAL HISTORY: Generalized right knee pain with instability. COMPARISON: None FINDINGS: Right knee demonstrates moderate degenerative changes with patellofemoral joint space narrowing. Noacute bony process is seen. There is lateral [...] PROCESS. Impression dictated by: Tai Taylor Jr., D.O.07/02/2024 3:55 PM Dictation Location: RADIO-PC-22 Transcribed By: DARYA 07/02/24 1555 Dictated By: Tai Taylor Jr, DO 07/02/24 155 Signed By: 07/02/24 1555 [facility] HospitalXR [facility] RT 4V*on 15-40-0573GV knee RT 4V* [facility] [address] [place] [address] XRay Report Signed Patient: Melanie Espinoza MR#: [id number] 6 : 1955 Acct:[id number] Age/Sex: 69 / F ADM Date: 07/02/24 Loc: [facility] Room: Type: [facility] Attending Dr: Nickolas Hawthorne DO Copies to: Nickolas Hawthorne DO Ordering Provider: Nickolas Hawthorne DO Date of Service: 07/02/24 XR/XR knee RT 4V*: M25.561 - Pain in right knee ([id number]) XR/XR knee LT 2V: M25.561 - Pain [...] PROCESS. Impression dictated by: Tai Taylor Jr., D.O.07/02/2024 3:55 PM Dictation Location: RADIO-PC-22 Transcribed By: DARYA 07/02/24 1555 Dictated By: Tai Taylor Jr, DO 07/02/24 1554 Signed By: 07/02/24 1555[facility] Physician GroupFollow-Upon 67-41-1392Cjdgez-Up [id number] Melanie Espinoza 1955 F Date Provider Department Center 06/25/2024 Akilah-MELATELLY MP ORTHO MPORTHO Family History Problem Relation Age of Onset Hypertension Mother Stroke Mother Heart attack Father Family Status - Relation Status Age at Mother Father Level of Service:96157 [place] OFFICE/OUTPATIENT ESTABLISHED LOW MDM 20 MIN (GC) Reason for Visit and Comments: Pain [136]NormalHolmes County Joel Pomerene Memorial HospitalXR shoulder RT min 2V*on 11-71-8006UU shoulder RT min 2V*[facility] [address] [place] [address] XRay Report Signed Patient: Melanie Espinoza MR#: [id number] 6 : 1955 Acct:[id number] Age/Sex: 68 / F ADM Date: 03/31/24 Loc: [facility] Room: Type: [facility] Attending Dr: Nickolas Hawthorne DO Copies [...] Ligia Carrasquillo M.D.03/31/2024 3:19 PM Dictation Location: RADIO-PC-02 Transcribed By: DARYA 03/31/241518 Dictated By: Ligia Carrasquillo MD 03/31/241516 Signed By: 03/31/24 1519[facility] Physician GroupX-ray reportOrdered By: Emma Bettencourt on 15-12-3089Hipxg reportFIRSELECT MEDICAL [facility] [address] [place] [address] XRay Report Signed Patient: Melanie Espinoza MR#: [id number] : 1955 Acct:[id number] Age/Sex: 68 / F ADM Date: 4 Loc: [facility] Room: Type: [facility] Attending Dr: Nickolas Hawthorne DO Copies [...] components. Proximal humerus. Hypertrophic changes are noted inthe acromioclavicular joint. The visualized right hemithorax is grossly intact. 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 No new hardware complications. Impression dictated by: Emma Bettencourt M.D.02/24/2024 4:59 PM Dictation Location: RADIO-PC-24 Transcribed By: DARYA 02/24/241658 Dictated By: Emma Bettencourt II, MD 02/24/241656 Signed By: 02/24/241658 [facility] Work Phone: XR shoulder RT min 2V*on 63-76-6191LS shoulder RT min 2V*[facility] [address] [place] [address] XRay Report Signed Patient: Melanie Espinoza MR#: [id number] 6 : 1955 Acct:[id number] Age/Sex: 68 / F ADM Date: 02/24/24 Loc: [facility] Room: Type: [facility] Attending Dr: Nickolas Hawthorne DO Copies [...] Emma Bettencourt M.D.02/24/2024 4:59 PM Dictation Location: [place] [address] Transcribed By: [facility] 02/24/241658 Dictated By: Emma Bettencourt II, MD 02/24/241656 Signed By: 02/24/24 1659[facility] Physician GroupAerobic Cultureon 02-12-2024 Aerobic CultureComment right shoulder Synovial Fluid Result Tab Codes Rare Normal Skin Chloé 2 Days Growth present in Thio broth only Comment right shoulder Synovial Fluid Anaerobic Culture Results No Anaerobes Isolated 3 Days Comment right shoulder Synovial Fluid Gram Stain Result No Bacteria Seen PERFORMED BY: [place] [id number] PATHOLOGIST POCKET FLAP CREASING MACHINE OPERATOR TAYA CRESPO M.D.[facility] Physician GroupComment on above:Performed By: #### LIU ROSARIO #### [address]Aerobic cultureOrdered By: Nickolas Hawthorne on 02-12-2024 Bacteria identified Aer cx Nom (Unsp spec)Aerobic cultureCleveland Clinic Union HospitalAnaerobic cultureOrdered By: Nickolas Hawthorne on 62-99-6418Oaxrprsu identified Anaer cx Nom (Unsp spec)Anaerobic cultureCleveland Clinic Union HospitalAutomated basophil %Ordered By: Nickolas Hawthorne on 06-54-4195Jtndxsycv/100 WBC (Bld)0.9 %Normal.[facility] HospitalComment on above:Performed By: #### ESR, CBC, DDIMER, CRP #### [facility] [address] [place] [address] USAAutomated basophil countOrdered By: Nickolas Hawthorne on 10-79-2217Darljehom (Bld) [#/Vol]0.1 10*3/uLNormal0.0-0.2FEast Liverpool City HospitalComment on above:Performed By: #### ESR, CBC, DDIMER, CRP #### [place] [address] USAAutomated blood monocyte countOrdered By: Nickolas Hawthorne on 04-52-1555Ugecanrho (Bld) [#/Vol]0.6 10*3/uLNormal0.0-0.8[facility] HospitalComment on above:Performed By: #### ESR, CBC, DDIMER, CRP #### [place] [address] USAAutomated eosinophil %Ordered By: Nickolas Hawthorne on 06-64-3459Aijrypmrype/100 WBC (Bld)2.1 %Normal.[facility] Comment on above:Performed By: #### ESR, CBC, DDIMER, CRP #### [place] [address] USAAutomated eosinophil countOrdered By: Nickolas Hawthorne on 08-57-9443Hvjcoseiocc (Bld) [#/Vol]0.1 10*3/uLNormal0.0-0.45[facility] HospitalComment on above:Performed By: #### ESR, CBC, DDIMER, CRP #### [place] [address] USAAutomated monocyte %Ordered By: Nickolas Hawthorne on 02-12-2024 Monocytes/100 WBC (Bld)8.7 %Normal.[facility] HospitalComment on above:Performed By: #### ESR, CBC, DDIMER, CRP #### [place] [address] USAAutomated neutrophil %Ordered By: Nickolas Hawthorne on 87-05-8322Iczxocdhsoj/100 WBC (Bld)73.7 %Normal.[facility] HospitalComment on above:Performed By: #### ESR, CBC, DDIMER, CRP #### [place] [address] USABasic Metabolic Panelon 79-15-7075Bnprzgmddb Clr Calc Zvwvkjse91.31NoFormerly [facility] Health Physician GroupComment on above:Result Comment: PERFORMED BY: [place] [address] PATHOLOGIST POCKET FLAP CREASING MACHINE OPERATOR TAYA CRESPO M.D.Performed By: #### BMP #### [place] [address] USAGFR/1.73 sq M.predicted MDRD (S/P/Bld) [Vol rate/Area] mL/min/{1.73_m2}NormalThe Mission Hospital Physician GroupComment on above:Performed By: #### BMP #### [place] [address] USABasophils Auto (Bld) [#/Vol]Ordered By: Nickolas Hawthorne on 64-87-9213Ictpgfyjy (Bld) [#/Vol]Automated basophil count0.0-0.2FEast Liverpool City HospitalBasophils/100 WBC Auto (Bld)Ordered By: Nickolas Hawthorne on 40-92-2242Irgrfagqq/100 WBC (Bld)Automated basophil %.[facility] HospitalC reactive protein [Mass/volume] in Serum or PlasmaOrdered By: Nickolas Hawthorne on 14-05-9408ASJ [Mass/Vol]0.6 mg/dLHigh0.0-0.5FEast Liverpool City HospitalCRP [Mass/Vol]C reactive protein [Mass/volume] in Serum or PlasmaHigh 0.0-0.5FEast Liverpool City HospitalC-Reactive Proteinon 70-64-0717B- Reactive Protein0.6 mg/dLHigh0.0-0.5The [facility] Physician GroupComment on above:Result Comment: PERFORMED BY: [place] [address] PATHOLOGIST POCKET FLAP CREASING MACHINE OPERATOR TAYA CRESPO M.D.Performed By: #### ESR, CBC, DDIMER, CRP #### [facility] [address] [place] [address] USACalcium [Mass/volume] in Serum or PlasmaOrdered By: Giancarlo Rojas on 35-98-2606Fssbdcy [Mass/Vol]9.0 mg/dLNormal8.6-10.3 [facility] HospitalComment on above:Performed By: #### BMP #### [place] [id number] USACalcium [Mass/Vol]Calcium [Mass/volume] in Serum or Plasma 8.6-10.3FEast Liverpool City HospitalCarbon dioxide, total [Moles/volume] in Serum or PlasmaOrdered By: Giancarlo Rojas on 32-34-6442KP7 [Moles/Vol]27.2 mmol/KYumxju18.0-31.0[facility] HospitalComment on above:Performed By: #### BMP #### [facility] [address] [place], [place] [address] USACO2 [Moles/Vol]Carbon dioxide, total [Moles/volume] in Serum or Mgqswj78.0-31.0[facility] HospitalCell Count Diff,Synovial Fluidon 07-66-8658Otkkeysxlb, Synovial FluidTurbidCritically abnormalClearThe Mission Hospital Physician GroupComment on above:Order Comment: Synovial Fluid Source: right shoulder Synovial Fluid Site: right shoulder Performed By: #### CUMRSA, UA #### [address] [address] USAColor, Synovial FluidREDNormalClrless-StrThe Mission Hospital Physician GroupComment on above:Order Comment: Synovial Fluid Source: right shoulder Synovial Fluid Site: right shoulderPerformed By: #### LIU ROSARIO #### [facility] [address] [place] [address] USAColor, Synovial SupernatantRedNormGolisano Children's [facility] [place] Physician GroupComment on above:Order Comment: Synovial Fluid Source: right shoulder Synovial Fluid Site: right shoulderResult Comment: The reference interval and other method performance specifications have not been established for this body fluid. The test result must be integrated into the clinical context for interpretation.Performed By: #### LIU ROSARIO #### [facility] [address] [place] [address] USAComments, SynovialNormGolisano Children's Hospital of Southwest [place] Physician Group Comment on above:Order Comment: Synovial Fluid Source: right shoulder Synovial Fluid Site: right shoulderResult Comment: Body fluid is partially clotted and/or cell clumps or debris are present. Fluid cell count and differential results may not be reliable. Clinical correlation is recommended. PERFORMED BY: [place] [address] PATHOLOGIST POCKET FLAP CREASING MACHINE OPERATOR TAYA CRESPO M.D.Performed By: #### LIU ROSARIO #### [address] [address] USAEosinophils,Synovial Fluid0 %Normal0-2The [facility] Physician GroupComment on above:Order Comment: Synovial Fluid Source: right shoulder Synovial Fluid Site: right shoulderPerformed By: #### ABRAHAM UA #### [facility] [address] [place] [address] USALymphocytes, Synovial Fluid65 %Normal0-74The [facility] Physician GroupComment on above:Order Comment: Synovial Fluid Source: right shoulder Synovial Fluid Site: right shoulderPerformed By: #### ABRAHAM UA #### [facility] [address] [place] [id number] USAMonocyte/Histiocyte,Synov.Fld.23 %Normal0-69The [facility] Physician GroupComment on above:Order Comment: Synovial Fluid Source: right shoulder Synovial Fluid Site: right shoulderPerformed By: #### ABRAHAM, UA #### [facility] [address] [place] [address] USANeutrophils, Synovial Fluid12 %Normal0-24The [facility] Physician GroupComment on above:Order Comment: Synovial Fluid Source: right shoulder Synovial Fluid Site: right shoulderPerformed By: #### ABRAHAM, UA #### [facility] [address] [place] [address] USARBC, Synovial Vnpjm985665 /uLHigh0-0The [facility] Physician GroupComment on above:Order Comment: Synovial Fluid Source: right shoulder Synovial Fluid Site: right shoulderResult Comment: Body fluid is partially clotted and/or cell clumps or debris are present. Fluid cell count and differential results may not be reliable. Clinical correlation is recommended.Performed By: #### ABRAHAM, UA #### [facility] [address] [place] [address] USATNC, Synovial Gixgh31420Lytf2-285Cwj [facility] Physician GroupComment on above:Order Comment: Synovial Fluid Source: right shoulder Synovial Fluid Site: right shoulderResult Comment: Body fluid is partially clotted and/or cell clumps or debris are present. Fluid cell count and differential results may not be reliable. Clinical correlation is recommended. The reference interval and other method performance specifications have not been established for this body fluid. The test result must be integrated into the clinical context for interpretation.Performed By: #### ABRAHAM, UA #### [facility] [address] [place] [id number] USACells Counted Total [#] in Body fluidOrdered By: Nickolas Hawthorne on 05-42-5495Hvtbf Counted Total (Body fld) [#]00357 mm^1Jtua3-839 [facility] HospitalComment on above:Body fluid is partially clotted and/or cell clumps or debris are present. Fluid cell count and diffe rential results may not be reliable. Clinical correlation is recommended.The reference interval andother method performance specifications have not been established for this body fluid. The test result must be integrated into the clinical context for interpretation.Cells Counted Total (Body fld) [#]Cells Counted Total [#] in Body fluidHigh0-150Firelands Regional Medical CenterComment on above:Body fluid is partially clotted and/or cell clumps or debris are present. Fluid cell count and differential results may not be reliable. Clinical correlation is recommended.The reference interval andother method performance specifications have not been established for this body fluid. The test result must be integrated into the clinical context for interpretation.Chloride [Moles/volume] in Serum or PlasmaOrdered By: Giancarlo Rojas on 02-12-2024 Chloride [Moles/Vol]99 mmol/QLjgjsl04-554Wzbqrdkne[address] [place] [address] Comment on above:Performed By: #### BMP #### [facility] [address] [place] [address] USAChloride [Moles/Vol]Chloride [Moles/volume] in Serum or Jubrfs32-052NmwpmqmeaCleveland Clinic Union HospitalComplete Blood Count Auto Diffon 70-90-2001Avuo Corpuscular HGB Conc33.0 g/wKPaolno99.0-35.0The [facility] Physician GroupComment on above:Performed By: #### ESR, CBC, DDIMER, CRP #### [facility] [address] [place] [address] USANRBC%0.1 /100{WBC}Normal0-0.5The [facility]ician Group Comment on above:Performed By: #### ESR, CBC, DDIMER, CRP #### [facility] [address] [place] [address] USACreatinine [Mass/volume] in Serum or PlasmaOrdered By: Giancarlo Rojas on 38-39-0595Qmibkubpqd [Mass/Vol]0.40 mg/dLLow0.60-1.20 [facility] HospitalComment on above:Performed By: #### BMP #### [place] [id number] USACreatinine [Mass/Vol]Creatinine [Mass/volume] in Serum or PlasmaLow0.60-1.20[facility] HospitalD-Dimer High Sensitivityon 73-86-6247J-Dimer High Zougzwzonvb039 ng/mLHigh0-243The [facility] Physician GroupComment on above:Result Comment: The reference range for D-dimer is [...] coagulation studies. Please contact the laboratory at [phone] for redraw instructions. PERFORMED BY: [place] [address] PATHOLOGIST POCKET FLAP CREASING MACHINE OPERATOR TAYA CRESPO M.D.Performed By: #### ESR, CBC, DDIMER, CRP #### [address] [address] USADetermination of appearance of body fluidOrdered By: Nickolas Hawthorne on 99-63-9853Hsyhqtaizq (Body fld)TurbidAbnormalCleEast Ohio Regional HospitalAppearance (Body fld)Determination of appearance of body fluid AbnormalCleEast Ohio Regional HospitalEosinophils Auto (Bld) [#/Vol] Ordered By: Nickolas Hawthorne on 52-83-5265Xqeaoekvcfc (Bld) [#/Vol]Automated eosinophil count0.0-0.45[facility] HospitalEosinophils/100 WBC Auto (Bld)Ordered By: Nickolas Hawthorne on 02-14-8900Csrhsvqhhvs/100 WBC (Bld) Automated eosinophil %.[facility] HospitalErythrocyte Sedimentation Rateon 25-19-5229FZE (Bld) [Velocity]13 mm/hNormal0-29The [facility] Physician GroupComment on above:Result Comment: PERFORMED BY: [place] [address] PATHOLOGIST POCKET FLAP CREASING MACHINE OPERATOR TAYA CRESPO M.D.Performed By: #### ESR, CBC, DDIMER, CRP #### [facility] [address] [place] [address] USAErythrocyte distribution width Auto (RBC) [Ratio]Ordered By: Nickolas Hawthorne on 43-75-2428Bhjguienjle distribution width (RBC) [Ratio] Erythrocyte distribution width [Ratio] by Automated count11.9-15.3FEast Liverpool City HospitalErythrocyte distribution width [Ratio] by Automated count Ordered By: Nickolas Hawthorne on 19-20-8394Elzyilxeszg distribution width (RBC) [Ratio]14.5 %Eoxpeb78.9-15.3FEast Liverpool City HospitalComment on above: Performed By: #### ESR, CBC, DDIMER, CRP #### [place] [address] USAErythrocyte sedimentation rate by Photometric method Ordered By: Nickolas Hawthorne on 37-38-3994CYA Photometric method (Bld) [Velocity]13 mm/hr0C[facility] Union HospitalESR Photometric method (Bld) [Velocity]Erythrocyte sedimentation rate by Photometric methodCleveland Clinic Union HospitalErythrocytes [#/volume] in Blood by Automated count Ordered By: Nickolas Hawthorne on 39-19-3397KWT (Bld) [#/Vol]4.77 10*6/uLNormal 3.60-5.00[facility] HospitalComment on above:Performed By: #### ESR, CBC, DDIMER, CRP #### [place] [address] USAEvaluation of color of body fluidOrdered By: Nickolas Hawthorne on 62-54-7332Usosn (Body fld)RedMercy Health Willard Hospital Color (Body fld)Evaluation of color of body fluidClCleveland Clinic Euclid HospitalFibrin D-dimer [Presence] in Platelet poor plasma by Latex agglutinationOrdered By: Nickolas Hawthorne on 10-57-8927Ljpzuk D-dimer LA Ql (PPP)647 ng/mLHigh0-[facility] HospitalComment on above:The reference range for D-dimer is <243 ng/mL D-dimer units.D-dimer results must be used in conjunction with a clinicalpretest probability (PTP) assessment model for deep veinthrombosis (DVT) and pulmonary embolism (PE). Results <230ng/mL d-dimer units can be used as a negative predictor inpatients with low or moderate probability for DVT/PE.Results above the exclusion threshold of 230 ng/ml D- dimerunits for DVT/PE may indicate the need for furtherdiagnostic testing.D- Dimer can be increased in hospitalized patients due toco-morbid conditions.A hematocrit value greater than 55% may lead to inaccurate results in coagulation testing. Patients having hematocrit values >55% require a special collection tube for coagulation studies. Please contact the laboratory at [phone] for redraw instructions.Fibrin D-dimer LA Ql (PPP)Fibrin D-dimer [Presence] in Platelet poor plasma by Latex agglutinationHigh0-243[facility] HospitalComment on above:The reference range for D-dimer is <243 ng/mL [...] coagulation studies. Please contact the laboratory at [phone] for redraw instructions.Glucose [Mass/volume] in Serum or PlasmaOrdered By: Giancarlo Rojas on 52-04-0895Rphderb [Mass/Vol]92 mg/sWHyhymw27-776YhwuosepkCleveland Clinic Union HospitalComment on above:ADA recommended reference rangeRandom Glucose Reference Range is dependent on time and content of last meal. Glucose of more than 200 mg/dL in a nonstressed, ambulatory subject supports the diagnosisof Diabetes Mellitus.Result Comment: Random Glucose Reference Range is dependent on time and content of last meal. Glucose of more than 200 mg/dL in a nonstressed, ambulatory subject supports the diagnosis of Diabetes Mellitus. ADA recommended reference rangePerformed By: #### BMP #### [facility] [address] [place] [address] USAGlucose [Mass/Vol]Glucose [Mass/volume] in Serum or Plasma 70-100[facility] HospitalComment on above:ADA recommended reference rangeRandom Glucose Reference Range is dependent on time and content of last meal. Glucose of more than 200 mg/dL in a nonstressed, ambulatory subject supports the diagnosisof Diabetes Mellitus.Gram Stainon 02-12-2024 Microscopic observation Gram stain Nom (Unsp spec)Comment right shoulder Synovial Fluid Gram Stain Result No Bacteria Seen PERFORMED BY: [place] [address] PATHOLOGIST POCKET FLAP CREASING MACHINE OPERATOR TAYA CRESPO M.D.[facility] Physician GroupComment on above:Performed By: #### CUMRSA, UA #### [facility] [address] [place] [address] USAGram stain for investigation of transfusion reaction Ordered By: Nickolas Hawthorne on 24-81-6147Zyruzwxyyan observation Gram stain Nom (Unsp spec)No Anaerobes Isolated 1 DayCleveland Clinic Union HospitalGram stain microscopyOrdered By: Nickolas Hawthorne on 91-22-4059Oppeicvmlsd observation Gram stain Nom (Unsp spec)Gram stain microscopyCleveland Clinic Union Hospital Hematocrit Auto (Bld) [Volume fraction]Ordered By: Nickolas Hawthorne on 02-12-2024 Hematocrit (Bld) [Volume fraction]Hematocrit [Volume Fraction] of Blood by Automated count34.0-46.4FEast Liverpool City HospitalHematocrit [Volume Fraction] of Blood by Automated countOrdered By: Nickolas Hawthorne on 02-12-2024 Hematocrit (Bld) [Volume fraction]41.5 %Siyjga76.0-46.4FEast Liverpool City HospitalComment on above:Performed By: #### ESR, CBC, DDIMER, CRP #### [facility] [address] [place] [id number] USAHemoglobin [Mass/volume] in BloodOrdered By: Nickolas Hawthorne on 45-19-6959Twublrhkqq (Bld) [Mass/Vol]13.7 g/kZTgpeet96.8-15.4FEast Liverpool City HospitalComment on above:Performed By: #### ESR, CBC, DDIMER, CRP #### [facility] [address] [place] [address] USAHemoglobin (Bld) [Mass/Vol]Hemoglobin [Mass/volume] in Blood11.8-15.4FEast Liverpool City HospitalLon 95-50-3291QJgfijvrn: [id number] Received: 02/12/24 Status: ESTEFANI Christianson Num: [id number] Spec Type: Surgical Subm Dr: Nickolas Hawthorne DO Tissues: A Synovium-Biopsy or tissue (DEEP SYNOVIAL #1) B Synovium-Biopsy or tissue (DEEP SYNOVIAL #2) C Synovium-Biopsy or tissue (DEEP SYNOVIAL #3) Procedures: HE/3, Gross/Micro L4/3, FS HE/6 Age/ Patient Sex Location Account Attending Physician Melanie Espinoza 68/F [place] [id number] Nickolas Hawthorne DO SPEC NUM: [id number] RECD: 02/12/24 STATUS: ESTEFANI CHRISTIANSON NUM: [id number] AVERY: 02/12/24- SUBM DR: Nickolas Hawthorne DO ENTERED: 02/12/[address] [facility] [address]: SPEC TYPE: Surgical DEPT: S ENTERED BY: [id number] RECV BY: [id number] ORDERED: HE/3, Gross/Micro L4/3, FS HE/6 ORDERED: [...] also without any obvious acute inflammation Specimen: [id number] Received: 02/12/24 Status: ESTEFANI Christianson Num: [id number] Spec Type: Surgical Subm Dr: Nickolas Hawthorne, Tissues: A Synovium-Biopsy or tissue (DEEP SYNOVIAL #1) B Synovium-Biopsy or tissue (DEEP SYNOVIAL #2) C Synovium-Biopsy or tissue (DEEP SYNOVIAL #3) Procedures: HE/3, Gross/Micro L4/3, FS HE/6 Patient: Melanie Espinoza [id number] (Continued) Specimen: [id number] Received: 02/12/24 (Continued) Signed (signature on file) Kane Claudio MD 02/17/24 1746 Specimen: [id number] Received: 02/12/24 Status: ESTEFANI Christianson Num: [id number] Spec Type: Surgical Subm Dr: Nickolas Hawthorne, DO Tissues: A Synovium-Biopsy or tissue (DEEP SYNOVIAL #1) B Synovium-Biopsy or tissue (DEEP SYNOVIAL #2) C Synovium-Biopsy or tissue (DEEP SYNOVIAL #3) Procedures: HE/3, Gross/Micro L4/3, FS HE/6 Patient: AlexisMelanie M [id number] (Continued) Specimen: [id number] Received: 02/12/24 (Continued) Clinical Information Rt shoulder pain, history of reverse Rt shoulder Gross Description A. Received fresh for frozen section labeled deep synovial #1 is an ovoid portion of mclaughlin-jj to pink, fibromembranous tissue, 1.5 x 0.8 x 0.2 cm. The specimen is entirely submitted for frozen section as A1. (1, ns, [id number] A) JG B. Received fresh for frozen section labeled deep synovial #2 is an ovoid sheet of mclaughlin- jj to pink, fibromembranous tissue, 0.9 x 0.8 x 0.3 cm. The specimen is entirely submitted for frozen section as B1. (1, ns, [id number] B) JG C. Received fresh for frozen section labeled deep synovial #3 is an ovoid sheet of jj- pink to yellow fibromembranous tissue, 1.3 x 0.9 x 0.3 cm. The specimen is entirely submitted for frozen section as C1. (1, ns, [id number] C) JG Intraoperative Diagnosis A, -Rare neutrophils seen B, -Rare neutrophils seen C, -Rare neutrophils seen Reported by Dr. Dill on 02-12-24 Microscopic Description Microscopic examinations are performed supporting the above interpretation [facility] Codes [id number] Specimen: [id number] Received: 02/12/24 Status: ESTEFANI Christianson Num: [id number] Spec Type: Surgical Subm Dr: Nickolas Hawthorne DO Tissues: A Synovium-Biopsy or tissue (DEEP SYNOVIAL #1) B Synovium-Biopsy or tissue (DEEP SYNOVIAL #2) C Synovium-Biopsy or tissue (DEEP SYNOVIAL #3) Procedures: HE/3, Gross/Micro L4/3, FS HE/6 (more content not included)...NormalThe Mission Hospital Physician GroupLeukocytes [#/volume] corrected for nucleated erythrocytes in Blood by Automated coun Ordered By: Nickolas Hawthorne on 69-36-6998IMH corrected for nucl RBC Auto (Bld) [#/Vol]6.5 10*3/uL3.8-11.6FEast Liverpool City HospitalWBC corrected for nucl RBC Auto (Bld) [#/Vol]Leukocytes [#/volume] corrected for nucleated erythrocytes in Blood by Automated coun3.8-11.6FEast [facility] Hospital Leukocytes [#/volume] in Blood by Automated countOrdered By: Nickolas Hawthorne on 38-17-6579SEQ (Bld) [#/Vol]6.5 10*3/uLNormal3.8-11.6FEast Liverpool City HospitalComment on above:Performed By: #### ESR, CBC, DDIMER, CRP #### [facility] [address] [place] [id number] USALymphocytes Auto (Bld) [#/Vol]Ordered By: Nickolas Hawthorne on 91-13-3926Zjbnvmybixn (Bld) [#/Vol]Lymphocytes [#/volume] in Blood by Automated countLow1.00-4.8[facility] HospitalLymphocytes [#/volume] in Blood by Automated countOrdered By: Nickolas Hawthorne on 83-06-4517Tlzedfippvc (Bld) [#/Vol]0.9 10*3/uLLow1.00-4.8[facility] HospitalComment on above: Performed By: #### ESR, CBC, DDIMER, CRP #### [facility] [address] [place] [id number] USALymphocytes/100 WBC Auto (Bld)Ordered By: Nickolas Hawthorne on 96-13-2504Trxmihtjnrf/100 WBC (Bld)Lymphocytes/100 leukocytes in Blood by Automated count.[facility] HospitalLymphocytes/100 leukocytes in Blood by Automated countOrdered By: Nickolas Hawthorne on 87-08-4130Ndbsxvzkjgp/100 WBC (Bld)14.6 %Normal.[facility] HospitalComment on above: Performed By: #### ESR, CBC, DDIMER, CRP #### [facility] [address] Auto (RBC) [Entitic mass]Ordered By: Nickolas Hawthorne on 02-32-7170ERS (RBC) [Entitic mass]MCH [Entitic mass] by Automated count24.7-34.3 [facility] [Entitic mass] by Automated countOrdered By: Nickolas Hawthorne on 50-28-2818MPZ (RBC) [Entitic mass]28.7 qhXpezjj44.7-34.3 [facility] HospitalComment on above:Performed By: #### ESR, CBC, DDIMER, CRP #### [facility] [address] Auto (RBC) [Mass/Vol]Ordered By: Nickolas Hawthorne on 55-69-1930ANUX (RBC) [Mass/Vol]33.0 g/dL32.0-35.0[facility] (RBC) [Mass/Vol]MCHC [Mass/volume] by Automated count32.0-35.0 [facility] Auto (RBC) [Entitic vol]Ordered By: Nickolas Hawthorne on 47-31-1179RDZ (RBC) [Entitic vol]MCV [Entitic volume] by Automated gyrvo11-691PqripqiigToledo HospitalV [Entitic volume] by Automated countOrdered By: Nickolas Hawthorne on 39-57-4473QOX (RBC) [Entitic vol]86.9 fLNormal 80-100[facility] HospitalComment on above:Performed By: #### ESR, CBC, DDIMER, CRP #### [facility] [address] [place] [address] USAManual body fluid eosinophils/100 leukocytesOrdered By: Nickolas Hawthorne on 92-17-3482Xwitmfcuojh/100 WBC Manual cnt (Body fld)0 %0-2 [facility] HospitalEosinophils/100 WBC Manual cnt (Body fld)Manual body fluid eosinophils/100 leukocytes0-2FEast Liverpool City HospitalManual body fluid erythrocytes count (number/volume)Ordered By: Nickolas Hawthorne on 72-94-5662TFN Manual cnt (Body fld) [#/Vol]142081 /uLHigh0-0[facility] HospitalComment on above:Body fluid is partially clotted and/or cell clumps or debris are present. Fluid cell count and differential results may not be reliable. Clinical correlation is recommended.RBC Manual cnt (Body fld) [#/Vol]Manual body fluid erythrocytes count (number/volume)High0-0[facility] HospitalComment on above:Body fluid is partially clotted and/or cell clumps or debris are present. Fluid cell count and differential results may not be reliable. Clinical correlation is recommended.Manual body fluid lymphocytes/100 leukocytesOrdered By: Nickolas Hawthorne on 60-70-2321Ezrbkvoumkx/100 WBC Manual cnt (Body fld)65 %0-[facility] Lymphocytes/100 WBC Manual cnt (Body fld)Manual body fluid lymphocytes/100 leukocytes0-74[facility] HospitalMonocytes Auto (Bld) [#/Vol] Ordered By: Nickolas Hawthorne on 86-15-5458Hnlzmeysc (Bld) [#/Vol]Automated blood monocyte count0.0-0.8[facility] HospitalMonocytes/100 WBC Auto (Bld)Ordered By: Nickolas Hawthorne on 83-85-4042Nzwxgiaiy/100 WBC (Bld)Automated monocyte %.[facility] HospitalNeutrophils Auto (Bld) [#/Vol] Ordered By: Nickolas Hawthorne on 34-37-3037Svqsaxvabjh (Bld) [#/Vol]Neutrophils [#/volume] in Blood by Automated count1.8-7.7FEast [facility] Hospital Neutrophils [#/volume] in Blood by Automated countOrdered By: Nickolas Hawthorne on 87-46-9550Prsxzqcmlmc (Bld) [#/Vol]4.8 10*3/uLNormal1.8-7.7FEast Liverpool City HospitalComment on above:Performed By: #### ESR, CBC, DDIMER, CRP #### [facility] [address] [place] [address] USANeutrophils/100 WBC Auto (Bld)Ordered By: Nickolas Hawthorne on 00-03-8883Hxmeqxnfatd/100 WBC (Bld)Automated neutrophil %.[facility] HospitalNeutrophils/100 WBC Manual cnt (Body fld)Ordered By: Nickolas Hawthorne on 75-14-8933Xtrqwlfpaas/100 WBC (Body fld)12 %0-[facility] HospitalNeutrophils/100 WBC (Body fld)Manual body fluid neutrophils/100 leukocytes 0-24[facility] HospitalNo Panel InformationOrdered By: Nickolas Hawthorne on 21-60-5813Qmkrkigq Fluid CommentSee commentCleveland Clinic Union HospitalComment on above:Body fluid is partially clotted and/or cell clumps or debris are present. Fluid cell count and differential results may not be reliable. Clinical correlation is recommended.Synovial Fluid Supernatant Color RedCleveland Clinic Union HospitalComment on above:The reference interval and other method performance specifications have not been established for this body fluid. The test result must be integrated into the clinical context for interpretation.No Panel InformationOrdered By: Giancarlo Rojas on 02-12-2024 Estimated GFR (CKD-EPI)> 60.0 mL/MinCleveland Clinic Union HospitalPharmacy Creatinine Clearance (Chem44.31[facility] HospitalNucleated erythrocytes [Presence] in Blood by Automated countOrdered By: Nickolas Hawthorne on 31-45-5720Oupxysvpn RBC Auto Ql (Bld)0.1 /100{WBC}0-0.5FEast Liverpool City HospitalNucleated RBC Auto Ql (Bld)Nucleated erythrocytes [Presence] in Blood by Automated count0-0.5FEast Liverpool City HospitalPlatelet mean volume Auto (Bld) [Entitic vol]Ordered By: Nickolas Hawthorne on 22-50-8949Pndqcpkr mean volume (Bld) [Entitic vol]Platelet mean volume [Entitic volume] in Blood by Automated count6.3-10.7FEast Liverpool City HospitalPlatelet mean volume [Entitic volume] in Blood by Automated countOrdered By: Nickolas Hawthorne on 46-72-6901Pjdygizj mean volume (Bld) [Entitic vol]6.4 fLNormal6.3-10.7FEast [facility] City HospitalComment on above:Performed By: #### ESR, CBC, DDIMER, CRP #### [facility] [address] [place] [address] USAPlatelets Auto (Bld) [#/Vol]Ordered By: Nickolas Hawthorne on 79-93-3460Ysrkgfyks (Bld) [#/Vol]Platelets [#/volume] in Blood by Automated tigpg537-864KczsaydqzCleveland Clinic Union HospitalPlatelets [#/volume] in Blood by Automated countOrdered By: Nickolas Hawthorne on 16-16-3048Yokszzgqh (Bld) [#/Vol]411 10*3/iBOticyw997-267XidxsrsvoCleveland Clinic Union HospitalComment on above:Performed By: #### ESR, CBC, DDIMER, CRP #### [facility] [address] [place] [address] USAPotassium [Moles/volume] in Serum or PlasmaOrdered By: Giancarlo Rojas on 88-20-6408Mbudbnqjx [Moles/Vol]4.3 mmol/LNormal3.5-5.1 [facility] HospitalComment on above:Performed By: #### BMP #### [facility] [address] [place] [address] USAPotassium [Moles/Vol]Potassium [Moles/volume] in Serum or Plasma3.5-5.1FEast Liverpool City HospitalRBC Auto (Bld) [#/Vol]Ordered By: Nickolas Hawthorne on 96-28-7330GJU (Bld) [#/Vol]Erythrocytes [#/volume] in Blood by Automated count3.60-5.00Norwalk Memorial Hospitalerum or plasma anion gap determinationOrdered By: Giancarlo Rojas on 61-91-5444Rjuuv gap [Moles/Vol]10.1 mmol/LNormal6.0-15.0[facility] HospitalComment on above:Performed By: #### BMP #### [facility] [address] [place] [address] USAAnion gap [Moles/Vol]Serum or plasma anion gap determination6.0-15.0Norwalk Memorial Hospitalodium [Moles/volume] in Serum or PlasmaOrdered By: Giancarlo Rojas on 57-07-0158Jlhgtg [Moles/Vol]132 mmol/AFxx065-487Wlzldsevv[address] [place], [place] [address]Comment on above:Performed By: #### BMP #### [facility] [address] [place] [id number] USASodium [Moles/Vol]Sodium [Moles/volume] in Serum or Plasma Vur533-902UukxohqpgNorwalk Memorial Hospitalynovial fluid differential cell countOrdered By: Nickolas Hawthorne on 65-53-6525Dhtzjgqtuglk panel (Syn fld)23 %0 [facility] HospitalDifferential panel (Syn fld)Synovial fluid differential cell countCleveland Clinic Union HospitalType and Screenon 21-83-5013OIN and Rh group Nom (Bld)Blood group O Rh(D) positiveNoFormerly Park Ridge Health Physician GroupComment on above:Result Comment: PERFORMED BY: [place] [address] PATHOLOGIST POCKET FLAP CREASING MACHINE OPERATOR TAYA CRESPO M.D.Urea nitrogen [Mass/volume] in Serum or PlasmaOrdered By: Giancarlo Rojas on 82-14-4389Hlxj nitrogen [Mass/Vol]12 mg/dLNormal11-06 [facility] HospitalComment on above:Performed By: #### BMP #### [facility] [address] [place], [place] [address] USAUrea nitrogen [Mass/Vol]Urea nitrogen [Mass/volume] in Serum or Plasma11-06[facility] HospitalWBC Auto (Bld) [#/Vol] Ordered By: Nickolas Hawthorne on 78-27-5281VJX (Bld) [#/Vol]Leukocytes [#/volume] in Blood by Automated count3.8-11.6FEast Liverpool City HospitalXR shoulder LT 1Von 53-31-1228[place] shoulder LT 1V[facility] [place] [address] [place] [address] XRay Report Signed Patient: Melanie Espinoza MR#: [id number] 6 : 1955 Acct:[id number] Age/Sex: 68 / F ADM Date: 02/12/24 Loc: [place] Room: Type: [facility] Attending Dr: Nickolas Hawthorne DO Copies to: [...] Erick Carranza M.D.02/12/2024 7:16 PM Dictation Location: [place] [address] Transcribed By: [facility] 02/12/241915 Dictated By: Erick Carranza DO 02/12/241909 Signed By: 02/12/241915[facility] Physician GroupAlanine aminotransferase [Enzymatic activity/volume] in Serum or PlasmaOrdered By: Nickolas Hawthorne on 69-13-6156GFB [Catalytic activity/Vol]12 U/LNormal[address] [place], [place] [address]Comment on above:Performed By: #### CMP wRFX A1C, CBC #### [facility] [address] [place] [address] USAALT [Catalytic activity/Vol]Alanine aminotransferase [Enzymatic activity/volume] in Serum or Plasma[address] [place], [place] [address]Albumin [Mass/volume] in Serum or Plasma by Bromocresol green (BCG) dye binding methoOrdered By: Nickolas Hawthorne on 85-02-2335Obdnbtr BCG dye [Mass/Vol]4.0 g/dL3.5-5.7FEast Liverpool City HospitalAlbumin BCG dye [Mass/Vol]Albumin [Mass/volume] in Serum or Plasma by Bromocresol green (BCG) dye binding metho 3.5-5.7FEast Liverpool City HospitalAlkaline phosphatase [Enzymatic activity/volume] in Serum or PlasmaOrdered By: Nickolas Hawthorne on 16-68-5821XHC [Catalytic activity/Vol]89 U/IKomyyh50-330Ylxzwiotj[address] Comment on above:Result Comment: PERFORMED BY: [place] [address] PATHOLOGIST POCKET FLAP CREASING MACHINE OPERATOR TAYA CRESPO M.D.Performed By: #### CMP wRFX A1C, CBC #### [facility] [address] [place] [address] USAALP [Catalytic activity/Vol]Alkaline phosphatase [Enzymatic activity/volume] in Serum or Sqqeqp53-901Efljxro[address] [place], [place] [address]Appearance of UrineOrdered By: Nickolas Hawthorne on 90-47-4899Ttnbhokofh (U) Urine appearanceCleEast Ohio Regional HospitalAspartate aminotransferase [Enzymatic activity/volume] in Serum or PlasmaOrdered By: Nickolas Hawthorne on 31-99-6635VID [Catalytic activity/Vol]18 U/UNysauc40-70Wifeubudw[address] StreetComment on above:Performed By: #### CMP wRFX A1C, CBC #### [facility] [address] [place], [place] [address] USAAST [Catalytic activity/Vol]Aspartate aminotransferase [Enzymatic activity/volume] in Serum or Wdquyc84-03Lrljixlvz29 [address] StreetAutomated basophil %Ordered By: Nickolas Hawthorne on 13-68-7671Kdborfsms/100 WBC (Bld)0.7 %Normal.[facility] HospitalComment on above:Performed By: #### CMP wRFX A1C, CBC #### [facility] [address] [place] [address] USAAutomated basophil countOrdered By: Nickolas Hawthorne on 88-43-6849Drwvhjsre (Bld) [#/Vol]0.1 10*3/uLNormal0.0-0.2FEast Liverpool City HospitalComment on above:Result Comment: PERFORMED BY: [address] [address] PATHOLOGIST POCKET FLAP CREASING MACHINE OPERATOR TAYA CRESPO M.D.Performed By: #### CMP wRFX A1C, CBC #### [facility] [address] [place] [address] USAAutomated blood monocyte countOrdered By: Nickolas Hawthorne on 05-83-0656Mbwocygbf (Bld) [#/Vol]0.7 10*3/uLNormal0.0-0.8[facility] HospitalComment on above:Performed By: #### CMP wRFX A1C, CBC #### [facility] [address] [place] [address] USAAutomated eosinophil %Ordered By: Nickolas Hawthorne on 73-16-0193Rwrbjirsuqf/100 WBC (Bld)2.0 %Normal.[facility] Comment on above:Performed By: #### CMP wRFX A1C, CBC #### [place] [address] USAAutomated eosinophil countOrdered By: Nickolas Hawthorne on 68-90-0217Ptpttwyzjhy (Bld) [#/Vol]0.2 10*3/uLNormal0.0-0.45[facility] HospitalComment on above:Performed By: #### CMP wRFX A1C, CBC #### [facility] [address] [place] [address] USAAutomated monocyte %Ordered By: Nickolas Hawthorne on 01-29-2024 Monocytes/100 WBC (Bld)6.3 %Normal.[facility] HospitalComment on above:Performed By: #### CMP wRFX A1C, CBC #### [facility] [address] [place] [address] USAAutomated neutrophil %Ordered By: Nickolas Hawthorne on 36-08-5943Nhietgnklxv/100 WBC (Bld)81.1 %Normal.[facility] HospitalComment on above:Performed By: #### CMP wRFX A1C, CBC #### [facility] [address] [place] [address] USABasophils Auto (Bld) [#/Vol]Ordered By: Nickolas Hawthorne on 75-14-7340Yaszkzddg (Bld) [#/Vol]Automated basophil count0.0-0.2FEast Liverpool City HospitalBasophils/100 WBC Auto (Bld)Ordered By: Nickolas Hawthorne on 83-26-8694Tyfumfruq/100 WBC (Bld)Automated basophil %.[facility] HospitalBilirubin Test strip Ql (U)Ordered By: Nickolas Hawthorne on 01-29-2024 Bilirubin Ql (U)NegativeNegativeCleveland Clinic Union HospitalBilirubin Ql (U)Bilirubin.total [Presence] in Urine by Test stripNegativeCleveland Clinic Union HospitalBilirubin.total [Mass/volume] in Serum or PlasmaOrdered By: Nickolas Hawthorne on 25-44-2555Tpsfdtbze [Mass/Vol]0.2 mg/dLLow0.3-1.0[facility] HospitalComment on above:Performed By: #### CMP wRFX A1C, CBC #### [facility] [address] [place] [address] USABilirubin [Mass/Vol]Bilirubin.total [Mass/volume] in Serum or PlasmaLow0.3-1.0[facility] HospitalCMP with reflex to A1Con 95-19-6148Lzzqvyu [Mass/Vol]4.0 g/dLNormal3.5-5.7[facility] Comment on above:Performed By: #### CMP wRFX A1C, CBC #### [facility] [address] [place] [address] USAGFR/1.73 sq M.predicted MDRD (S/P/Bld) [Vol rate/Area] mL/min/{1.73_m2}NormalThe Mission Hospital Physician GroupComment on above:Performed By: #### CMP wRFX A1C, CBC #### [facility] [address] [place] [address] USACT shoulder RT wo conon 21-24-7250PC shoulder RT wo con [facility] [address] [place] [address] [place], [place] [address] [place] Scan Report Signed Patient: Melanie Espinoza MR#: [id number] 6 : 1955 Acct:[id number] Age/Sex: 68 / F ADM Date: 01/29/24 Loc: CT Room: Type: [facility] Attending Dr: Nickolas Hawthorne DO Copies to: Nickolas Hawthorne DO Ordering Provider: Nickolas Hawthorne DO Date of Service: 01/29/24 CT/CT shoulder RT wo con: Shantell protocol for pre operative CT shoulder RT wo con 01/29/2024 2:08 PM SIGNS AND SYMPTOMS: Tornier protocol for pre operative TECHNIQUE: Multidetector CT [...] Emma Bettencourt M.D.01/29/2024 4:32 PM Dictation Location: [place] [address] Transcribed By: [facility] 01/29/24 1632 Dictated By: Emma Bettencourt II, MD 01/29/24 1629 Signed By: 01/29/24 1632York Hospital GroupCalcium [Mass/volume] in Serum or PlasmaOrdered By: Nickolas Hawthorne on 58-70-5247Mjsndpt [Mass/Vol]9.1 mg/dLNormal 8.6-10.3FEast Liverpool City HospitalComment on above:Performed By: #### CMP wRFX A1C, CBC #### [facility] [address] [place] [address] USACalcium [Mass/Vol]Calcium [Mass/volume] in Serum or Plasma 8.6-10.3FEast Liverpool City HospitalCarbon dioxide, total [Moles/volume] in Serum or PlasmaOrdered By: Nickolas Hawthorne on 33-32-7108VP6 [Moles/Vol]27.1 mmol/L Xxrafm82.0-31.0[facility] HospitalComment on above:Performed By: #### CMP wRFX A1C, CBC #### [facility] [address] [place] [address] USACO2 [Moles/Vol]Carbon dioxide, total [Moles/volume] in Serum or Zgvpim70.0-31.0[facility] HospitalChloride [Moles/volume] in Serum or PlasmaOrdered By: Nickolas Hawthorne on 35-23-9671Dmxlwbyx [Moles/Vol]95 mmol/OCvk72-110Dnxaxlizj[address] [place], [place] [address]Comment on above:Performed By: #### CMP wRFX A1C, CBC #### [facility] [address] [place] [address] USAChloride [Moles/Vol]Chloride [Moles/volume] in Serum or DaezfsMrx64-280Atcwilawv[address] [place], [place] [address]Color Auto (U)Ordered By: Nickolas Hawthorne on 48-77-5869Bpwmf (U)Color of Urine by AutoYelKettering Health Main CampusColor of Urine by AutoOrdered By: Nickolas Hawthorne on 03-25-6615Pcccr (U)ColorlessNormalYellowCleveland Clinic Union HospitalComment on above:Order Comment: Name Collection Type:: Clean-Voided MidstreamPerformed By: #### CUMRSA, UA #### [place] [id number] USAComplete Blood Count Auto Diffon 22-29-6060Yllo Corpuscular HGB Conc33.3 g/fVObhhhq92.0-35.0[facility] Physician GroupComment on above:Performed By: #### CMP wRFX A1C, CBC #### [facility] [address] [place] [address] USANRBC%0.1 /100{WBC}Normal0-0.5[facility] Comment on above:Performed By: #### CMP wRFX A1C, CBC #### [facility] [address] [place] [address] USACreatinine [Mass/volume] in Serum or PlasmaOrdered By: Nickolas Hawthorne on 53-91-9400Qdbvejvqyv [Mass/Vol]0.40 mg/dLLow0.60-1.20[facility] HospitalComment on above:Performed By: #### CMP wRFX A1C, CBC #### [facility] [address] [place] [address] USACreatinine [Mass/Vol]Creatinine [Mass/volume] in Serum or PlasmaLow0.60-1.20[facility] HospitalECG 12 lead ECGon 01-29-2024 ECG 12 [facility] ECGDAY[facility] [address] [place] [address] [place] [address] Electrocardiograph Report Signed Patient: Melanie Espinoza MR#: [id number] 6 : 1955 Acct:[id number] Age/Sex: 68 / F ADM Date: 01/29/24 Loc: Room: Type: [facility] Attending Dr: Nickolas Hawthorne DO Ordering [...] change was found Confirmed by SEAMUS JAMES FAC, LEI ([id number]) on 01/30/2024 4:29:01 PM Referred By: Electronically Signed By: LEI WAY MD [facility] Transcribed By: MUS Signed By Lei Way MD, [facility] 01/30/[address] [place] [address] Physician GroupEosinophils Auto (Bld) [#/Vol] Ordered By: Nickolas Hawthorne on 31-66-3737Uhmtetlaaly (Bld) [#/Vol]Automated eosinophil count0.0-0.45[facility] HospitalEosinophils/100 WBC Auto (Bld)Ordered By: Nickolas Hawthorne on 21-57-3562Ochsolxuiry/100 WBC (Bld) Automated eosinophil %.[facility] HospitalErythrocyte distribution width Auto (RBC) [Ratio]Ordered By: Nickolas Hawthorne on 03-67-5030Zdodmuubybh distribution width (RBC) [Ratio]Erythrocyte distribution width [Ratio] by Automated count11.9-15.3FEast Liverpool City HospitalErythrocyte distribution width [Ratio] by Automated countOrdered By: Nickolas Hawthorne on 01-32-0224Lewpxyayxgi distribution width (RBC) [Ratio]14.8 %Eziiyk16.9-15.3 [facility] HospitalComment on above:Performed By: #### CMP wRFX A1C, CBC #### [facility] [address] [place] [address] USAErythrocytes [#/volume] in Blood by Automated countOrdered By: Nickolas Hawthorne on 59-49-7138AVJ (Bld) [#/Vol]4.40 10*6/uLNormal3.60-5.00 [facility] HospitalComment on above:Performed By: #### CMP wRFX A1C, CBC #### [facility] [address] [place] [address] USAGlobulin Calc (S) [Mass/Vol]Ordered By: Nickolas Hawthorne on 95-39-1217Udhpharh (S) [Mass/Vol]Serum globulin measurement by calculation (mass/volume)[facility] HospitalGlucose [Mass/volume] in Serum or PlasmaOrdered By: Nickolas Hawthorne on 09-02-7427Trbfpmt [Mass/Vol]96 mg/dLNormal 70-100[facility] Medical CenterComment on above:Performed By: #### CMP wRFX A1C, CBC #### [facility] [address] [place] [address] USAGlucose [Mass/Vol]Glucose [Mass/volume] in Serum or Plasma 70-100[facility] HospitalGlucose [Mass/volume] in Urine by Test stripOrdered By: Nickolas Hawthorne on 08-17-5947Leeiwvb Test strip (U) [Mass/Vol] Normal mg/dLNormDayton Children's HospitalGlucose Test strip (U) [Mass/Vol]Glucose [Mass/volume] in Urine by Test stripNoOhioHealth Doctors HospitalHematocrit Auto (Bld) [Volume fraction]Ordered By: Nickolas Hawthorne on 37-31-7605Wumdblgfdb (Bld) [Volume fraction]Hematocrit [Volume Fraction] of Blood by Automated count34.0-46.4FEast Liverpool City HospitalHematocrit [Volume Fraction] of Blood by Automated countOrdered By: Nickolas Hawthorne on 62-48-8332Eqzbrbugjo (Bld) [Volume fraction]38.3 %Gytcja30.0-46.4FEast [place] City HospitalComment on above:Performed By: #### CMP wRFX A1C, CBC #### [facility] [address] [place] [address] USAHemoglobin Test strip Ql (U)Ordered By: Nickolas Hawthorne on 97-97-0787Fpmdeifeki Ql (U)NegativeNegativeCleveland Clinic Union Hospital Hemoglobin Ql (U)Hemoglobin [Presence] in Urine by Test stripNegativeCleveland Clinic Union HospitalHemoglobin [Mass/volume] in BloodOrdered By: Nickolas Hawthorne on 80-79-6462Fwrnadhxny (Bld) [Mass/Vol]12.8 g/dIXvsrij41.8-15.4FEast [place] City HospitalComment on above:Performed By: #### CMP wRFX A1C, CBC #### [facility] [address] [place] [address] USAHemoglobin (Bld) [Mass/Vol]Hemoglobin [Mass/volume] in Blood11.8-15.4FEast [place] City HospitalKetones Test strip Ql (U)Ordered By: Nickolas Hawthorne on 17-19-8786Suovkkj Ql (U)Ketones [Presence] in Urine by Test stripNegGrand Lake Joint Township District Memorial HospitalKetones [Presence] in Urine by Test stripOrdered By: Nickolas Hawthorne on 90-98-6401Qszgesu Ql (U)NegativeNormal NegativeCleveland Clinic Union HospitalComment on above:Order Comment: Name Collection Type:: Clean-Voided MidstreamPerformed By: #### FLACARSA, UA #### [facility] [address] [place] [address] USALeukocyte esterase [Presence] in Urine by Test strip Ordered By: Nickolas Hawthorne on 34-56-3778Kqzstsxmp esterase Test strip Ql (U) NegativeNormalNegGrand Lake Joint Township District Memorial HospitalComment on above:Order Comment: Name Collection Type:: Clean-Voided MidstreamPerformed By: #### CUMRSA, UA #### [facility] [address] [place] [address] USALeukocyte esterase Test strip Ql (U)Leukocyte esterase [Presence] in Urine by Test stripKettering Health Hamilton Leukocytes [#/volume] corrected for nucleated erythrocytes in Blood by Automated counOrdered By: Nickolas Hawthorne on 37-89-9779HKQ corrected for nucl RBC Auto (Bld) [#/Vol]11.0 10*3/uL3.8-11.[address] [place], [place] [address]WBC corrected for nucl RBC Auto (Bld) [#/Vol]Leukocytes [#/volume] corrected for nucleated erythrocytes in Blood by Automated coun3.8-11.[address] [place] [address] Leukocytes [#/volume] in Blood by Automated countOrdered By: Nickolas Hawthorne on 35-53-0087UNE (Bld) [#/Vol]11.0 10*3/uLNormal3.8-11.[address] [place], [place] [address]Comment on above:Performed By: #### CMP wRFX A1C, CBC #### [facility] [address] [place] [address] USALymphocytes Auto (Bld) [#/Vol]Ordered By: Nickolas Hawthorne on 03-35-9129Ppsvvpebqfi (Bld) [#/Vol]Lymphocytes [#/volume] in Blood by Automated count1.00-4.8C[facility] Clinic Union HospitalLymphocytes [#/volume] in Blood by Automated countOrdered By: Nickolas Hawthorne on 19-28-0184Anskdhuefoy (Bld) [#/Vol] 1.1 10*3/uLNormal1.00-4.8C[facility] Clinic Union HospitalComment on above: Performed By: #### CMP wRFX A1C, CBC #### [facility] [address] [place] [address] USALymphocytes/100 WBC Auto (Bld)Ordered By: Nickolas Hawthorne on 72-01-9613Babyxagpldk/100 WBC (Bld)Lymphocytes/100 leukocytes in Blood by Automated count.[facility] Clinic Union HospitalLymphocytes/100 leukocytes in Blood by Automated countOrdered By: Nickolas Hawthorne on 38-78-8415Qfbpwllxsdn/100 WBC (Bld)9.9 %Normal.[facility] Union HospitalComment on above:Performed By: #### CMP wRFX A1C, CBC #### [facility] [address] [place] [address] Auto (RBC) [Entitic mass]Ordered By: Nickolas Hawthorne on 43-80-3586FWV (RBC) [Entitic mass]MCH [Entitic mass] by Automated count24.7-34.3 [facility] [Entitic mass] by Automated countOrdered By: Nickolas Hawthorne on 24-31-4547IFK (RBC) [Entitic mass]29.0 hgIjddnm68.7-34.3 [facility] HospitalComment on above:Performed By: #### CMP wRFX A1C, CBC #### [facility] [address] [place] [id number] [facility] Auto (RBC) [Mass/Vol]Ordered By: Nickolas Hawthorne on 58-70-5331VKQM (RBC) [Mass/Vol]33.3 g/dL32.0-35.0[facility] HospitalHC (RBC) [Mass/Vol]MCHC [Mass/volume] by Automated count32.0-35.0 [facility] HospitalMCV Auto (RBC) [Entitic vol]Ordered By: Nickolas Hawthorne on 23-77-7754DOG (RBC) [Entitic vol]MCV [Entitic volume] by Automated lsafp34-997DkjrvlxsyCleveland Clinic Union HospitalMCV [Entitic volume] by Automated countOrdered By: Nickolas Hawthorne on 76-70-7229ENG (RBC) [Entitic vol]87.0 fLNormal 80-100C[facility] Union HospitalComment on above:Performed By: #### CMP wRFX A1C, CBC #### [facility] [address] [place] [address] USAMRSA Cultureon 57-34-0302VMPW CultureNo MRSA Isolated 2 Days PERFORMED BY: [facility] [address] [facility] [place] [address] PATHOLOGIST POCKET FLAP CREASING MACHINE OPERATOR TAYA CRESPO M.D.[facility] Physician GroupComment on above:Performed By: #### CUMRSA, UA #### [facility] [address] [place] [address] USAMonocytes Auto (Bld) [#/Vol]Ordered By: Nickolas Hawthorne on 11-24-4827Vuvcavijj (Bld) [#/Vol]Automated blood monocyte count0.0-0.8[facility] HospitalMonocytes/100 WBC Auto (Bld)Ordered By: Nickolas Hawthorne on 80-71-6120Rtcyvkkmh/100 WBC (Bld)Automated monocyte %.[facility] Clinic Union HospitalNeutrophils Auto (Bld) [#/Vol]Ordered By: Nickolas Hawthorne on 01-29-2024 Neutrophils (Bld) [#/Vol]Neutrophils [#/volume] in Blood by Automated countHigh 1.8-7.7FEast [place] City HospitalNeutrophils [#/volume] in Blood by Automated countOrdered By: Nickolas Hawthorne on 85-36-6383Bsyqedaaluv (Bld) [#/Vol] 8.9 10*3/uLHigh1.8-7.7FEast [place] City HospitalComment on above: Performed By: #### CMP wRFX A1C, CBC #### [facility] [address] [place] [address] USANeutrophils/100 WBC Auto (Bld)Ordered By: Nickolas Hawthorne on 07-77-1377Butqkfoxqzh/100 WBC (Bld)Automated neutrophil %.[facility] Union HospitalNitrite Test strip Ql (U)Ordered By: Nickolas Hawthorne on 01-29-2024 Nitrite Ql (U)NegativeNegativeCleveland Clinic Union HospitalNitrite Ql (U) Nitrite [Presence] in Urine by Test stripNegativeCleveland Clinic Union HospitalNo Panel InformationOrdered By: Nickolas Hawthorne on 63-48-7858Wvraofvgu GFR (CKD-EPI)> 60.0 mL/MinCleveland Clinic Union HospitalPharmacy Creatinine Clearance (ChemN/AFEast Liverpool City HospitalNucleated erythrocytes [Presence] in Blood by Automated countOrdered By: Nickolas Hawthorne on 01-29-2024 Nucleated RBC Auto Ql (Bld)0.1 /100{WBC}0-0.5FEast [facility] Hospital Nucleated RBC Auto Ql (Bld)Nucleated erythrocytes [Presence] in Blood by Automated count0-0.5FEast [place] City HospitalPlatelet mean volume Auto (Bld) [Entitic vol]Ordered By: Nickolas Hawthorne on 06-45-6402Rktwfmjp mean volume (Bld) [Entitic vol]Platelet mean volume [Entitic volume] in Blood by Automated count6.3-10.7FEast [place] City HospitalPlatelet mean volume [Entitic volume] in Blood by Automated countOrdered By: Nickolas Hawthorne on 01-29-2024 Platelet mean volume (Bld) [Entitic vol]6.3 fLNormal6.3-10.7FEast [place] City HospitalComment on above:Performed By: #### CMP wRFX A1C, CBC #### [facility] [address] [place] [address] USAPlatelets Auto (Bld) [#/Vol]Ordered By: Nickolas Hawthorne on 86-65-8453Zzhsuzhoc (Bld) [#/Vol]Platelets [#/volume] in Blood by Automated ublrc342-830ZsrsbwjicCleveland Clinic Union HospitalPlatelets [#/volume] in Blood by Automated countOrdered By: Nickolas Hawthorne on 35-59-3440Ylceyejqm (Bld) [#/Vol]396 10*3/jAFuunbs457-004MskakbzzfCleveland Clinic Union HospitalComment on above:Performed By: #### CMP wRFX A1C, CBC #### [facility] [address] [place] [address] USAPotassium [Moles/volume] in Serum or PlasmaOrdered By: Nickolas Hawthorne on 28-97-7677Nxscssqxs [Moles/Vol]4.8 mmol/LNormal3.5-5.1FEast [place] City HospitalComment on above:Performed By: #### CMP wRFX A1C, CBC #### [facility] [address] [place] [address] USAPotassium [Moles/Vol]Potassium [Moles/volume] in Serum or Plasma3.5-5.1FEast [place] City HospitalProtein Test strip (U) [Mass/Vol] Ordered By: Nickolas Hawthorne on 07-53-2126Gusaxij (U) [Mass/Vol]NegativeNegative [facility] HospitalProtein (U) [Mass/Vol]Protein [Mass/volume] in Urine by Test stripNegativeCleveland Clinic Union HospitalProtein [Mass/volume] in Serum or PlasmaOrdered By: Nickolas Hawthorne on 39-67-4039Fnuudlw [Mass/Vol]6.6 g/dLNormal6.4-8.9[facility] HospitalComment on above:Performed By: #### CMP wRFX A1C, CBC #### [facility] [address] [place] [id number] USAProtein [Mass/Vol]Protein [Mass/volume] in Serum or Plasma 6.4-8.9[facility] Union HospitalRBC Auto (Bld) [#/Vol]Ordered By: Nickolas Hawthorne on 44-07-1435ERL (Bld) [#/Vol]Erythrocytes [#/volume] in Blood by Automated count3.60-5.00Norwalk Memorial Hospitalerum globulin measurement by calculation (mass/volume)Ordered By: Nickolas Hawthorne on 01-29-2024 Globulin (S) [Mass/Vol]2.6 g/dLNormalCleveland Clinic Union HospitalComment on above:Performed By: #### CMP wRFX A1C, CBC #### [facility] [address] [place] [address] USASerum or plasma albumin/globulin mass ratioOrdered By: Nickolas Hawthorne on 89-81-9829Laagbcp/Globulin [Mass ratio]1.5 {ratio}Normal [facility] HospitalComment on above:Performed By: #### CMP wRFX A1C, CBC #### [facility] [address] [place] [id number] USAAlbumin/Globulin [Mass ratio]Serum or plasma albumin/globulin mass ratioNorwalk Memorial Hospitalerum or plasma anion gap determinationOrdered By: Nickolas Hawthorne on 78-21-9091Dkpwe gap [Moles/Vol]10.7 mmol/LNormal6.0-15.0[facility] HospitalComment on above:Performed By: #### CMP wRFX A1C, CBC #### [facility] [address] [place] [id number] USAAnion gap [Moles/Vol]Serum or plasma anion gap determination6.0-15.0[facility]walk Memorial Hospitalodium [Moles/volume] in Serum or PlasmaOrdered By: Nickolas Hawthorne on 67-62-8489Weekac [Moles/Vol]128 mmol/NBbe282-606GselypezhCleveland Clinic Union HospitalComment on above:Performed By: #### CMP wRFX A1C, CBC #### [facility] [address] [place] [id number] USASodium [Moles/Vol]Sodium [Moles/volume] in Serum or Plasma Zxq655-892FwtbsgpeuNorwalk Memorial Hospitalpecific gravity Test strip (U) [Rel density]Ordered By: Nickolas Hawthorne on 27-68-0257Ldiwatqb gravity (U) [Rel density] 1.0111.001-1.030Norwalk Memorial Hospitalpecific gravity (U) [Rel density]Specific gravity of Urine by Test strip1.001-1.030[facility] HospitalUrea nitrogen [Mass/volume] in Serum or PlasmaOrdered By: Nickolas Hawthorne on 88-36-3550Wscw nitrogen [Mass/Vol]15 mg/dLNormal11-06[facility] HospitalComment on above:Performed By: #### CMP wRFX A1C, CBC #### [facility] [address] [place] [address] USAUrea nitrogen [Mass/Vol]Urea nitrogen [Mass/volume] in Serum or Plasma11-06[facility] HospitalUrinalysison 01-29-2024 Bilirubin,UrineNegativeNormalNegativeHca Florida [facility]cal[facility] Hospital Physician GroupComment on above:Order Comment: Name Collection Type:: Clean-Voided MidstreamPerformed By: #### CUMRSA, UA #### [place] [address] USAGlucose Ql (U)NormalNormalNormCleveland Clinic [facility] Hospitale Mission Hospital Physician GroupComment on above:Order Comment: Name Collection Type:: Clean-Voided MidstreamPerformed By: #### CUMRSA, UA #### [place] [address] USANitrite,UrineNegativeNormalNegativeThe Mission Hospital Physician GroupComment on above:Order Comment: Name Collection Type:: Clean-Voided MidstreamPerformed By: #### CUMRSA, UA #### [place] [address] USAOccult Blood,UrineNegativeNormalNegativeThe Mission Hospital Physician GroupComment on above:Order Comment: Name Collection Type:: Clean- Voided MidstreamResult Comment: PERFORMED BY: [place] [address] PATHOLOGIST POCKET FLAP CREASING MACHINE OPERATOR TAYA CRESPO M.D.Performed By: #### CUMRSA, UA #### [place] [address] USAProtein,UrineNegativeNormalNegativeThe Mission Hospital Physician GroupComment on above:Order Comment: Name Collection Type:: Clean-Voided MidstreamPerformed By: #### CUMRSA, UA #### [place] [address] USASpecificy [place],Urine1.368Ddeinu0.001-1.030The [facility] Physician GroupComment on above:Order Comment: Name Collection Type:: Clean- Voided MidstreamPerformed By: #### CUMRSA, UA #### [facility] [address] [place] [address] USAUrobilinogen,UrineNormalNormalNormalThe Mission Hospital Physician GroupComment on above:Order Comment: Name Collection Type:: Clean- Voided MidstreamPerformed By: #### CUMRSA, UA #### [facility] [address] [place] [address] USAUrine appearanceOrdered By: Nickolas Hawthorne on 01-29-2024 Appearance (U)ClearNormalClearCleveland Clinic Union HospitalComment on above: Order Comment: Name Collection Type:: Clean-Voided MidstreamPerformed By: #### CUMRSA, UA #### [facility] [address] [place] [address] USAUrobilinogen Test strip (U) [Mass/Vol]Ordered By: Nickolas Hawthorne on 15-48-6683Ikvyfjkqenac (U) [Mass/Vol]Normal mg/dLNoOhioHealth Doctors HospitalUrobilinogen (U) [Mass/Vol]Urobilinogen [Mass/volume] in Urine by Test stripClermont County HospitalWBC Auto (Bld) [#/Vol] Ordered By: Nickolas Hawthorne on 13-74-3425ENY (Bld) [#/Vol]Leukocytes [#/volume] in Blood by Automated count3.8-11.6FEast [place] City HospitalWound methicillin resistant Staphylococcus aureus (MRSA) cultureOrdered By: Nickolas Hawthorne on 54-35-5355NGSN isol Org specific cx Ql (Unsp spec)Wound methicillin resistant Staphylococcus aureus (MRSA) cultureCleveland Clinic Union Hospital MRSA isol Org specific cx Ql (Unsp spec)No MRSA Isolated 2 DaysCleveland Clinic Union HospitalpH Test strip (U)Ordered By: Nickolas Hawthorne on 40-82-0628oZ (U)pH of Urine by Test strip5.0-9.0[facility] HospitalpH of Urine by Test stripOrdered By: Nickolas Hawthorne on 16-30-4632gN (U)7.0 [pH]Normal5.0-9.0 [facility] HospitalComment on above:Order Comment: Name Collection Type:: Clean-Voided MidstreamPerformed By: #### ABRAHAM UA #### [facility] [address] [place] [address] USAXR shoulder RT min 2V*on 06-01-6439HU shoulder RT min 2V* [facility] [address] [place] [address] XRay Report Signed Patient: Melanie Espinoza MR#: [id number] 6 : 1955 Acct:[id number] Age/Sex: 68 / F ADM Date: 01/23/24 Loc: [facility] Room: Type: [facility] Attending Dr: Stevenson Corbin MD Copies [...] Erick Carranza M.D.01/23/2024 2:49 PM Dictation Location: [facility]- Transcribed By: [facility] 01/23/24 1449 Dictated By: Erick Carranza DO 01/23/24 1439 Signed By: 01/23/24 1449NoFormerly [facility] Physician GroupCNPNon [id number] (TABITHA) MELANIE ESPINOZA ([id number]) 1955 F Date Time Provider Department 12/25/23 TAI HINOJOSA During your visit today, we recorded the following information about you: Esperanza Larios 12/25/2023 4:36 PM Signed Destiney calling to ask since pt insurance changed is there a alternative to Austedo that the pt can be giving. Please call her at [phone] Radha Tilley 12/26/2023 10:29 AM Signed Destiney at [facility] calling again, says patient is out of medication... requesting alternative medication Arnold Hall RN 12/26/2023 10:40 AM Signed Spoke to Destiney at [facility]. Pt using inpatient pharmacy and her insurance changed, states Austedo is $7800/month, and Pt cannot afford, has not had medication in 3 days. Pharmacist recommended alternatives below, Destiney states Pt can afford either option, looking for whatever would be the best alternative. -Amantadine 100mg BID ($18/month) -Tetrabenazine 25mg BID ($1300/month) Please fax new script to [phone] Forwarded to Provider to review. Elise Burks 12/26/2023 3:22 PM Signed Destiney is calling back to see if you fax rx to them. caller would like a call back either way today if rx was faxed or not Caller can be reached at [phone] Tai Hinojosa MD 12/27/2023 2:06 PM Signed Ok I am ordering BOTH of these. Amantadine may cause forgetfulness and hallucinations TBZ is usually a 3x/day med, but I am only ordering is bid bc that's they priced. Lynnette Ortiz, [place] 12/27/2023 2:13 PM Signed Rx's faxed Spoke with private secretary at [facility]. Destiney is not in today Will relay the message from me Martin Ortiz RN ext [phone] Allergies As of Date: 12/25/2023 Noted Allergy Reaction ERYTHROMYCIN 05/14/2023 16 - Unknown Date Reviewed: 11/12/2023 Reviewed by: Mary Gibbs MA - Fully Assessed Reason for Visit: Medication Problem [65] Primary Visit Diagnosis:Dyskinesia, tardive [G24.01] Order(s):tetrabenazine (XENAZINE) 25 mg tabletTake 1 tablet by [...] (ZOFRAN) 4 mg tablet (more content not included)...NormalBethesda North Hospital 68-94-0148UMPCNjzqug Visit ([facility]) MELANIE ESPINOZA ([id number]) 1955 F Date Time Provider Department 11/12/23 11:00 AM T[address] HINOJOSA [facility] During your visit today, we recorded the following information about you: Pulse Blood pressure Weight 72/minute 136/80 43.1 kg Tai Hinojosa MD 11/12/2023 11:37 AM Signed November 12, 2023 Tai Hinojosa MD [address] / [address] [address] Esteban Garza MD ([facility]) [facility] [place] [address] Melanie Espinoza : 1955 Interval History: Melanie [...] sitting in wheelchair - (more content not included)...NormalDiley Ridge Medical CenterXR SHOULDER RT 2V or >on 23-86-7618RP SHOULDER RT 2V or >EXAM: XR SHOULDER RT 2V or > HISTORY: Pain of right shoulder joint COMPARISON: 01/27/2022 TECHNIQUE: 3 views of the right shoulder. FINDINGS: Right-sided reverse shoulder arthroplasty hardware and anatomic alignment. No evidence of hardware complication. No evidence of dislocation. Remote right-sided rib fractures. IMPRESSION: No acute findings. Electronically authenticated by: SIMON ANDRADE Date: 2022-06-04 10:57No[facility] AUTO DIFFon 38-14-1860AUAI #0.0 103/ulNormal0.0-0.1The Protestant HospitalComment on above:Performed By: #### CBC #### [facility] [address] [address] [address] Miranda Alasls/100 WBC (Bld)0.2 %Normal0.2-2.0[facility] Comment on above:Performed By: #### CBC #### [facility] [address] [address] [address] Yilan ChangEO #0.0 103/ulNormal0.0-0.7The Protestant HospitalComment on above: Performed By: #### CBC #### [facility] [address] [place] [address] Dr. Miranda Dimasosinophils/100 WBC (Bld)0.4 %Critically low0.9-7.0The Protestant HospitalComment on above:Performed By: #### CBC #### [facility] [address] [place] [address] Dr. Miranda Dimasrythrocyte distribution width (RBC) [Ratio]13.7 %Zhazas60.0-15.0 The Protestant HospitalComment on above:Performed By: #### CBC #### [facility] [address] [place] [address] Dr. Miranda ClaudioHematocrit (Bld) [Volume fraction]33.6 %Critically low36.0-48.0 The Protestant HospitalComment on above:Performed By: #### CBC #### [facility] [address] [place] [address] Dr. Miranda ClaudioHemoglobin (Bld) [Mass/Vol]11.4 g/dLCritically low12.0-16.0The Protestant HospitalComment on above:Performed By: #### CBC #### [facility] [address] [place] [address] Dr. Miranda Childers #0.02 10e3/ulNormal0.00-0.03The Protestant HospitalComment on above:Performed By: #### CBC #### [facility] [address] [place] [address] Dr. Miranda Childers %0.4 %Normal0.0-0.5The Protestant HospitalComment on above: Performed By: #### CBC #### [facility] [address] [place] [address] Dr. Miranda DubonMPH #0.9 103/ulCritically low1.2-3.8[facility] Comment on above:Performed By: #### CBC #### [facility] [address] [place] [address] Dr. Miranda Dubonmphocytes/100 WBC (Bld)18.4 %Critically low20.5-60.0The Protestant HospitalComment on above:Performed By: #### CBC #### [facility] [address] [place] [address] Dr. Miranda Delacruz DIFF REQNONormalThe Protestant HospitalComment on above: Performed By: #### CBC #### [facility] [address] [place] [address] Dr. Miranda Carty (RBC) [Entitic mass]26.5 pgCritically low26.7-34.0The Protestant HospitalComment on above:Performed By: #### CBC #### [facility] [address] [place] [address] Dr. Miranda Carty (RBC) [Mass/Vol]33.9 g/cIYffmid04.9-35.2The Protestant HospitalComment on above:Performed By: #### CBC #### [facility] [address] [place] [address] Dr. Miranda Carty (RBC) [Entitic vol]78.0 fLCritically low81.0-99.0The Protestant HospitalComment on above:Performed By: #### CBC #### [facility] [address] [place] [address] Dr. Miranda El #0.6 103/ulNormal0.3-0.8The Protestant HospitalComment on above:Performed By: #### CBC #### [facility] [address] [place] [address] Dr. Miranda Matthewsocytes/100 WBC (Bld)11.7 %Normal1.7-12.0[facility] Comment on above:Performed By: #### CBC #### [facility] [address] [place] [address] Dr. Miranda Reed #3.3 103/ulNormal1.4-6.5The Protestant HospitalComment on above:Performed By: #### CBC #### [facility] [address] [address] [address] Miranda Antonyutrophils/100 WBC (Bld)68.9 %Ybhfnc06.0-75.0The [facility] Memorial Hospitalment on above:Performed By: #### CBC #### [facility] [address] [place] [address] Dr. Miranda ClaudioPlatelet mean volume (Bld) [Entitic vol]8.1 fLCritically low 9.5-13.5The [facility] on above:Performed By: #### CBC #### [facility] [address] [place] [address] Dr. Miranda ClaudioPLT394 103/mvVqznvy409-680Djd [facility] on above: Performed By: #### CBC #### [facility] [address] [place] [address] Dr. Miranda ClaudioRBC4.31 106/ulNormal4.20-5.40The [facility] on above:Performed By: #### CBC #### [facility] [address] [place] [address] Dr. Miranda ClaudioWBC4.8 103/ulNormal4.0-11.0The [facility] on above: Performed By: #### CBC #### [facility] [address] [place] [address] Dr. Miranda ClaudioPROF 14(COMP METB)on 96-26-8994Rsqfwlq [Mass/Vol]2.7 g/dL Critically low3.4-5.0The [facility] on above:Performed By: #### CMP #### [facility] [address] [place] [address] Dr. Miranda ClaudioAlbumin/Globulin [Mass ratio]0.8 {ratio}NormalThe [facility] on above:Performed By: #### CMP #### [facility] [address] [place] [address] Dr. Miranda UlrichP [Catalytic activity/Vol]64 U/PZestms09-646Noy [facility] on above:Performed By: #### CMP #### [facility] [address] [address] [address] Miranda UlrichT [Catalytic activity/Vol]33 U/LCyuucb83-36Gvn Protestant HospitalComment on above:Performed By: #### CMP #### [facility] [address] [address] [address] Miranda ClaudioAnion gap [Moles/Vol]12.1 mmol/LNormalThe [facility] Comment on above:Performed By: #### CMP #### [facility] [address] [address] [address] Miranda ClaudioAST [Catalytic activity/Vol]64 U/LCritically zlgy02-45Cme [facility] HospitalComment on above:Performed By: #### CMP #### [facility] [address] [place] [address] Dr. Miranda ClaudioBilirubin [Mass/Vol]0.2 mg/dLNormal0.2-1.0The [facility] Comment on above:Performed By: #### CMP #### [facility] [address] [place] [address] Dr. Miranda ClaudioCalcium [Mass/Vol]7.9 mg/dLCritically low8.5-10.1The [facility] HospitalComment on above:Performed By: #### CMP #### [facility] [address] [place] [address] Dr. Miranda ClaudioChloride [Moles/Vol]98 mmol/KEivwzc39-692Dkp [facility] Comment on above:Performed By: #### CMP #### [facility] [address] [place] [address] Dr. Miranda ClaudioCO2 [Moles/Vol]26.7 mmol/HZlefhh56.0-32.0The [facility] Comment on above:Performed By: #### CMP #### [facility] [address] [address] [address] Miranda ClaudioCreatinine [Mass/Vol]0.44 mg/dLCritically low0.55-1.02The [facility] HospitalComment on above:Performed By: #### CMP #### [facility] [address] [address] [address] Miranda DimasGFR-AF MALTESE>60Normal>=60The Protestant HospitalComment on above:Performed By: #### CMP #### [facility] [address] [place] [address] Dr. Miranda DimasGFR-NON AF MALTESE>60Normal>=60The [facility] HospitalComment on above:Performed By: #### CMP #### [facility] [address] [address] [address] Miranda ClaudioGlobulin (S) [Mass/Vol]3.3 g/dLNormalThe [facility] HospitalComment on above:Performed By: #### CMP #### [facility] [address] [place] [address] Dr. Miranda ClaudioGlucose [Mass/Vol]78 mg/rAHlytwx56-354Nsh [facility] Comment on above:Performed By: #### CMP #### [facility] [address] [place] [address] Dr. Miranda ClaudioPotassium [Moles/Vol]2.8 mmol/LCritically low3.5-5.1The [facility] HospitalComment on above:Performed By: #### CMP #### [facility] [address] [place] [address] Dr. Miranda ClaudioProtein [Mass/Vol]6.0 g/dLCritically low6.4-8.2The [facility] HospitalComment on above:Performed By: #### CMP #### [facility] [address] [place] [address] Dr. Miranda ClaudioSodium [Moles/Vol]134 mmol/LCritically niw940-200Owo Protestant HospitalComment on above:Performed By: #### CMP #### [facility] [address] [place] [address] Dr. Miranda ClaudioUrea nitrogen [Mass/Vol]4.0 mg/dLCritically low7.0-18.0The [facility] HospitalComment on above:Performed By: #### CMP #### [facility] [address] [place] [address] Dr. Miranda ClaudioUrea nitrogen/Creatinine [Mass ratio]9.1 mg/mgNoRegency Hospital Cleveland WestComment on above:Performed By: #### CMP #### [facility] [address] [address] [address] Miranda ClaudioXR CHEST 1 Von [id number] CHEST 1 VEXAMINATION: XR CHEST 1 V HISTORY: COUGH COMPARISON: [...] Electronically authenticated by: CM RAMIREZ Date: 2022-04-19 07:08[facility]on [id number] [Catalytic activity/Vol]412 U/LCritically nijn43-685Lds [facility] HospitalComment on above:Performed By: #### JOSE, CMP ####[facility] [address] [address]Dr. Miranda Zaragoza.MB [Mass/Vol]19.37 ng/mLCritically high<=3.60The [facility] HospitalComment on above:Performed By: #### JOSE, CMP ####[facility] [address] [address]Dr. Miranda ClaudioHSTROP5.9 pg/mLNormal4.0-51.3The [facility] HospitalComment on above:Result Comment: CUT-OFF POINTS HAVE BEEN ESTABLISHED BASED ON THE FOURTH UNIVERSAL DEFINITIONS OF MY OCARDIAL INFARCTION. THE UPPER REFERENCE LIMIT (URL) OF TROPONIN, DEFINED THE 99TH PERCENTILE OF cTnI DISTRIBUTION IN A REFERENCE POPULATION, HAS BEEN CONFIRMED THE DECISION THRESHOLD FOR [place] DIAGNOSIS.Performed By: #### JOSE, CMP ####[facility] [address] [address]Dr. Miranda Del ToroO82 ng/mL Normal9-82The [facility] HospitalComment on above:Performed By: #### CMADM, CMP ####[facility] [address] [place], [place] [address]Dr. Renettadeon GonzálezCBC AUTO DIFFon [id number] #0.1 103/ulNormal0.0-0.1The Protestant HospitalComment on above:Performed By: #### CBC ####[facility] [address] [place], [place] [address]Dr.Miranda ChangBasophils/100 WBC (Bld)0.5 %Normal0.2-2.0The [facility] HospitalComment on above:Performed By: #### CBC ####[facility] [address] [place], [place] [address]Dr.Renettalan ChangEO #0.5 103/ulNormal0.0-0.7The [facility] HospitalComment on above:Performed By: #### CBC ####[facility] [address] [place], [place] [address]Dr.Miranda ChangEosinophils/100 WBC (Bld)4.1 %Normal 0.9-7.0The Protestant HospitalComment on above:Performed By: #### CBC ####[facility] [address]mc[address] [place], [place] [address]Dr.Miranda Claudio Erythrocyte distribution width (RBC) [Ratio]13.9 %Skftez86.0-15.0The [facility] HospitalComsouthwest regional rehabilitation center on above:Performed By: #### CBC ####[facility] [address] [place], [place] [address]Dr.Miranda ClaudioHematocrit (Bld) [Volume fraction]35.1 %Critically low36.0-48.0The [facility] HospitalComment on above:Performed By: #### CBC ####[facility] [address] [place], [place] [address]Dr.Miranda ChangHemoglobin (Bld) [Mass/Vol]11.7 g/dL Critically low12.0-16.0The [facility] HospitalComment on above:Performed By: #### CBC ####[facility] [address] [address]Dr. Miranda ClaudioIG #0.05 10e3/ulCritically high0.00-0.03The [facility] HospitalComment on above:Performed By: #### CBC ####[facility] [address] [address]Dr.Miranda ClaudioIG %0.4 %Normal0.0-0.5The [facility] HospitalComment on above:Performed By: #### CBC ####[facility] [address] [address]Dr.Miranda ClaudioLYMPH #1.5 103/ulNormal1.2-3.8The [facility] HospitalComment on above:Performed By: #### CBC ####[facility] [address] [address]Dr. Miranda ClaudioLymphocytes/100 WBC (Bld)12.7 %Critically low20.5-60.0The [facility] HospitalComment on above:Performed By: #### CBC ####[facility] [address] [place], [place] [address]Dr.Miranda ClaudioMANUAL DIFF REQ NONormalThe Protestant HospitalComment on above:Performed By: #### CBC ####[facility] [address] [place], [place] [address]Dr. Miranda ClaudioCOHEN CHIL[facility] (RBC) [Entitic mass]26.1 pgCritically low26.7-34.0The [facility] Hospitalment on above:Performed By: #### CBC ####[facility] [address] [place], [place] [address]Dr.Miranda ClaudioHC (RBC) [Mass/Vol]33.3 g/cZKxwqxi22.9-35.2The [facility] HospitalComment on above: Performed By: #### CBC ####[facility] [address] [place], [place] [address]Dr.Miranda ClaudioV (RBC) [Entitic vol]78.3 fLCritically low81.0-99.0The [facility] HospitalComment on above:Performed By: #### CBC ####[facility] [address] [address]Dr. Miranda ClaudioMONO #1.2 103/ulCritically high0.3-0.8The [facility] HospitalComment on above:Performed By: #### CBC ####[facility] [address] [address]Dr.Miranda ChangMonocytes/100 WBC (Bld)10.5 %Normal 1.7-12.0The [facility] HospitalComment on above:Performed By: #### CBC ####[facility] [address] [place], [place] [address]Dr. Miranda ClaudioNEUT #8.3 103/ulCritically high1.4-6.5The [facility] HospitalComment on above:Performed By: #### CBC ####[facility] [address] [place], [place] [address]Dr.Miranda ChangNeutrophils/100 WBC (Bld)71.8 %Normal 43.0-75.0The [facility] HospitalComment on above:Performed By: #### CBC ####[facility] [address] [place], [place] [address]Dr. Miranda ClaudioPlatelet mean volume (Bld) [Entitic vol]8.5 fLCritically low9.5-13.5 The [facility] HospitalComment on above:Performed By: #### CBC ####[facility] [address] [address]Dr.Miranda EbvpgAFG098 103/liCikmll687-594Trh [facility]alusing HospitalComment on above:Performed By: #### CBC ####[facility] [address] [place], [place] [address]Dr. Renettalan ChangRBC4.48 106/ulNormal4.20-5.40The [facility] HospitalComment on above: Performed By: #### CBC ####[facility] [address] [place], [place] [address]Dr.Miranda EbiseWWW39.6 103/ulCritically high4.0-11.0The [facility] HospitalComment on above:Performed By: #### CBC ####[facility] [address] [address]Dr.Yilan Suarezvid-19 PCR (CVDTBH)on 65-88-7332DLOO-CoV-2 (COVID-19) RNA LARY+probe Ql (Unsp spec)Not detectedNormalNOT DETECTEDThe [facility] Hospitalment on above:Result Comment: When diagnostic testing is negative, the [...] for this test is supported by the [place] of Health and Human Service's declaration that circumstances exist to justify the emergency use of in vitro diagnostics for the detection and/or diagnosis of the virus that causes COVID-19. This EUA will remain in effect for the duration of the COVID-19 declaration justifying emergency of IVDs, unless it is terminated or revoked by the FDA (after which the test may no longer be used).Performed By: #### CVDTBH #### [facility] [address] [place] [address] Dr. Miranda De La O URINE PROFILEon 35-47-0214Fafcdkdvo Ql (U)NegativeNormal NEGATIVECentervilleComment on above:Performed By: #### ERUR #### [facility] [address] [place] [address] Dr. Miranda Sam (U)CLEARNormalCLEARCentervilleComment on above: Performed By: #### ERUR #### [facility] [address] [place] [address] Dr. Miranda Cutler (U)LT. YELLOWNormalYELLOWThe Protestant HospitalComment on above:Performed By: #### ERUR #### [facility] [address] [place] [address] Dr. Miranda LawDA micrscopic examination will be performed if indicated. NormalCentervilleComment on above:Performed By: #### ERUR #### [facility] [address] [place] [address] Dr. Miranda ClaudioGlucose Ql (U)NegativeNormalNEGATIVECentervilleComment on above:Performed By: #### ERUR #### [facility] [address] [place] [address] Dr. Miranda lCaudioHemoglobin Ql (U)NegativeNormalNEGATIVECenterville Comment on above:Performed By: #### ERUR #### [facility] [address] [place] [address] Dr. Miranda ClaudioKetones Ql (U)NegativeNormalNEGATIVECentervilleComment on above:Performed By: #### ERUR #### [facility] [address] [place] [address] Dr. Miranda ClaudioLEUKOCYTESNegativeNormalNEGATIVECentervilleComment on above:Performed By: #### ERUR #### [facility] [address] [place] [address] Dr. Miranda ClaudioNitrite Ql (U)NegativeNormalNEGATIVECentervilleComment on above:Performed By: #### ERUR #### [facility] [address] [place] [address] Dr. Miranda ClaudiopH (U)6.5 [pH]Normal5-9CentervilleComment on above: Performed By: #### ERUR #### [facility] [address] [place] [address] Dr. Miranda ClaudioSPEC GRAVITY<=1.154Yqfcnxzt3.005-<=1.025[place] Comment on above:Performed By: #### ERUR #### [facility] [address] [place] [address] Dr. Miranda ClaudioUA PROTEINNegativeNormalNEGATIVE/ TRACECenterville Comment on above:Performed By: #### ERUR #### [facility] [address] [place] [address] Dr. Miranda Griffiths MICRO INDNOT INDICATEDNormalThe Protestant HospitalComment on above:Performed By: #### ERUR #### [facility] [address] [place] [address] Dr. Miranda Dimasbilinogen Qn (U)0.2 {Muriel'U}/dLNormal0.2 - 1.0The Protestant HospitalComment on above:Performed By: #### ERUR #### [facility] [address] [place] [address] Dr. Miranda ClaudioLACTATE/LACTIC ACIDon [id number] [Moles/Vol]0.9 mmol/L Normal0.4-1.9The Protestant HospitalComment on above:Performed By: #### LACT #### [facility] [address] [place] [address] Dr. Miranda ClaudioPROF 14(COMP METB)on 19-61-4331Qzwbrgs [Mass/Vol]3.5 g/dLNormal 3.4-5.0The [facility] HospitalComment on above:Performed By: #### CMADM, CMP #### [facility] [address] [place] [address] Dr. Miranda ClaudioAlbumin/Globulin [Mass ratio]1.0 {ratio}NormalThe [facility] HospitalComsouthwest regional rehabilitation center on above:Performed By: #### CMADM, CMP #### [facility] [address] [place] [address] Dr. Miranda Tanner [Catalytic activity/Vol]73 U/JDzstiv84-816Qqr [facility] HospitalComment on above:Performed By: #### CMADM, CMP #### [facility] [address] [place] [address] Dr. Miranda Dillard [Catalytic activity/Vol]16 U/ENqizxr28-34Vgz [facility] HospitalComment on above:Performed By: #### CMADM, CMP #### [facility] [address] [place] [address] Dr. Miranda Almaguer gap [Moles/Vol]14.4 mmol/LNormalThe [facility] Comment on above:Performed By: #### CMADM, CMP #### [facility] [address] [address] [address] Miranda ClaudioAST [Catalytic activity/Vol]26 U/FNmmdzo17-11Nqn [facility] HospitalComment on above:Performed By: #### CMADM, CMP #### [facility] [address] [address] [address] Miranda ClaudioBilirubin [Mass/Vol]0.2 mg/dLNormal0.2-1.0[facility] Comment on above:Performed By: #### CMADM, CMP #### [facility] [address] [place] [address] Dr. Miranda ClaudioCalcium [Mass/Vol]8.3 mg/dLCritically low8.5-10.1The [facility] HospitalComment on above:Performed By: #### CMADM, CMP #### [facility] [address] [place] [address] Dr. Miranda ClaudioChloride [Moles/Vol]93 mmol/LCritically mqg63-145Gzx [facility] HospitalComment on above:Performed By: #### CMADM, CMP #### [facility] [address] [place] [address] Dr. Miranda ClaudioCO2 [Moles/Vol]23.5 mmol/JWucnie21.0-32.0[place] Comment on above:Performed By: #### CMADM, CMP #### [facility] [address] [place] [address] Dr. Miranda ClaudioCreatinine [Mass/Vol]0.54 mg/dLCritically low0.55-1.02The [facility] HospitalComment on above:Performed By: #### CMADM, CMP #### [facility] [address] [place] [address] Dr. Miranda Oglesby-AF MALTESE>60Normal>=60The [facility] HospitalComment on above:Performed By: #### CMADM, CMP #### [facility] [address] [place] [address] Dr. Miranda DimasGFR-NON AF MALTESE>60Normal>=60The [facility] HospitalComment on above:Performed By: #### CMADM, CMP #### [facility] [address] [address] [address] Miranda ClaudioGlobulin (S) [Mass/Vol]3.6 g/dLNormSt. Charles HospitalComment on above:Performed By: #### CMADM, CMP #### [facility] [address] [address] [address] Miranda ClaudioGlucose [Mass/Vol]91 mg/oXGuddfy20-065Sze [facility] Comment on above:Performed By: #### CMADM, CMP #### [facility] [address] [place] [address] Dr. Miranda ClaudioPotassium [Moles/Vol]3.9 mmol/LNormal3.5-5.1The [facility] Comment on above:Performed By: #### CMADM, CMP #### [facility] [address] [place] [address] Dr. Miranda ClaudioProtein [Mass/Vol]7.1 g/dLNormal6.4-8.2The [facility] Comment on above:Performed By: #### CMADM, CMP #### [facility] [address] [place] [address] Dr. Miranda ClaudioSodium [Moles/Vol]127 mmol/LCritically nie215-830Rdf [facility] HospitalComment on above:Performed By: #### CMADM, CMP #### [facility] [address] [place] [address] Dr. Miranda ClaudioUrea nitrogen [Mass/Vol]8.0 mg/dLNormal7.0-18.0The [facility] HospitalComment on above:Performed By: #### CMADM, CMP #### [facility] [address] [place] [address] Dr. Miradna ClaudioUrea nitrogen/Creatinine [Mass ratio]14.8 mg/mgNoRegency Hospital Cleveland WestComment on above:Performed By: #### CMADM, CMP #### [facility] [address] [address] [address] Miranda Lr AND SCREENon [id number] AND SCREENNegativeNormSt. Charles HospitalComment on above:Performed By: #### TNS ####[facility] [address] [address]Dr.Yilan ClaudioNM HEPATOBILIARY SCAN W EFon [id number] HEPATOBILIARY SCAN W EFEXAMINATION: NM HEPATOBILIARY SCAN W EF HISTORY: Nausea [...] Electronically authenticated by: MESHA CARRASCO Date: 2022-02-23 11:03[facility] [place] AUTO DIFFon [id number] #0.1 103/ulNormal0.0-0.1The [facility] HospitalComment on above:Performed By: #### CBC #### [facility] [address] [address] [address] Miranda ClaudioBasophils/100 WBC (Bld)0.7 %Normal0.2-2.0[facility] Comment on above:Performed By: #### CBC #### [facility] [address] [address] [address] Miranda Savage #0.4 103/ulNormal0.0-0.7The [facility] HospitalComment on above: Performed By: #### CBC #### [facility] [address] [address] [address] Miranda Dimasosinophils/100 WBC (Bld)4.0 %Normal0.9-7.0[facility] Comment on above:Performed By: #### CBC #### [facility] [address] [place] [address] Dr. Miranda Dimasrythrocyte distribution width (RBC) [Ratio]14.2 %Hdesif83.0-15.0 The Protestant HospitalComment on above:Performed By: #### CBC #### [facility] [address] [place] [address] Dr. Miranda ClaudioHematocrit (Bld) [Volume fraction]39.9 %Iwjldo00.0-48.0The Protestant HospitalComment on above:Performed By: #### CBC #### [facility] [address] [place] [address] Dr. Miranda ClaudioHemoglobin (Bld) [Mass/Vol]13.0 g/yLMkhpie44.0-16.0The Protestant HospitalComment on above:Performed By: #### CBC #### [facility] [address] [place] [address] Dr. Miranda Childers #0.03 10e3/ulNormal0.00-0.03The Protestant HospitalComment on above:Performed By: #### CBC #### [facility] [address] [place] [address] Dr. Miranda Childers %0.3 %Normal0.0-0.5The Protestant HospitalComment on above: Performed By: #### CBC #### [facility] [address] [place] [address] Dr. Miranda Serrano #2.2 103/ulNormal1.2-3.8The Protestant HospitalComment on above:Performed By: #### CBC #### [facility] [address] [place] [address] Dr. Miranda Footehocytes/100 WBC (Bld)23.6 %Hevria64.5-60.0The Protestant HospitalComment on above:Performed By: #### CBC #### [facility] [address] [place] [address] Dr. Miranda Delacruz DIFF REQNONormalThe Protestant HospitalComment on above: Performed By: #### CBC #### [facility] [address] [place] [address] Dr. Miranda Carty (RBC) [Entitic mass]27.1 gsDwyawg35.7-34.0The Protestant HospitalComment on above:Performed By: #### CBC #### [facility] [address] [place] [address] Dr. Miranda Carty (RBC) [Mass/Vol]32.6 g/cVRldsfi08.9-35.2The Protestant HospitalComment on above:Performed By: #### CBC #### [facility] [address] [place] [address] Dr. Miranda Andujar (RBC) [Entitic vol]83.1 gEDqlywe01.0-99.0The Protestant HospitalComment on above:Performed By: #### CBC #### [facility] [address] [place] [address] Dr. Miranda El #0.8 103/ulNormal0.3-0.8The Protestant HospitalComment on above:Performed By: #### CBC #### [facility] [address] [place] [address] Dr. Miranda Matthewsocytes/100 WBC (Bld)8.5 %Normal1.7-12.0[facility] Comment on above:Performed By: #### CBC #### [facility] [address] [place] [address] Dr. Miranda Reed #5.9 103/ulNormal1.4-6.5The [facility] HospitalComment on above:Performed By: #### CBC #### [facility] [address] [place] [address] Dr. Miranda Antonyutrophils/100 WBC (Bld)62.9 %Keqwzb18.0-75.0The Protestant HospitalComment on above:Performed By: #### CBC #### [facility] [address] [place] [address] Dr. Miranda Brown mean volume (Bld) [Entitic vol]7.6 fLCritically low 9.5-13.5The Protestant HospitalComment on above:Performed By: #### CBC #### [facility] [address] [address] [address] Miranda ClaudioPLT405 103/ipZkaafz113-002Pwg [facility] HospitalComment on above: Performed By: #### CBC #### [facility] [address] [address] [address] Miranda ClaudioRBC4.80 106/ulNormal4.20-5.40The [facility] HospitalComment on above:Performed By: #### CBC #### [facility] [address] [address] [address] Miranda ClaudioWBC9.4 103/ulNormal4.0-11.0The Protestant HospitalComment on above: Performed By: #### CBC #### [facility] [address] [address] [address] Miranda De La O URINE PROFILEon 82-62-6651Objnwgfvl Ql (U)NegativeNormal NEGATIVEThe Protestant HospitalComment on above:Performed By: #### TJ STORY ####[facility] [address] [address]Dr. Miranda ClaudioClarity (U)CLEARNormalCLEARThe Protestant HospitalComment on above: Performed By: #### TJ STORY ####[facility] [address] [id number]. Miranda ClaudioColor (U)LT. YELLOWNormalYELLOWThe Protestant HospitalComment on above:Performed By: #### SHAAN STORYR ####[facility] [address] [id number]. Miranda Olivera A micrscopic examination will be performed if indicated.NormalThe Protestant HospitalComment on above:Performed By: #### SHAAN STORYR ####[facility] [address] Yilan ChangGlucose Ql (U) NegativeNormalNEGATIVEKettering Health Greene Memorial HospitalComment on above:Performed By: #### SHAAN STORYR ####[facility] [address] [address]Dr. Yilan ChangHemoglobin Ql (U)TRACE-LYSEDAbnormalNEGATIVEKettering Health Greene Memorial HospitalComment on above:Performed By: #### SHAAN STORYR ####[facility] [address] [place], [place] [address]Dr. Yilan ChangKetones Ql (U) NegativeNormalNEGATIVECentervilleComment on above:Performed By: #### TJ STORY ####[facility] [address] [place], [place] [address]Dr. Yilan ChangLEUKOCYTESNegativeNormalNEGATIVECentervilleComment on above:Performed By: #### TJ STORY ####[facility] [address] [place], [place] [address]r. Yilan ChangNitrite Ql (U)NegativeNormal NEGATIVECentervilleComment on above:Performed By: #### TJ STORY ####[facility] [address] [place], [place] [address]r. Yilan ChangpH (U)7.0 [pH]Normal5-9CentervilleComment on above: Performed By: #### SHAAN STORYR ####[facility] [address] [place], [place] [address]r. Yilan ChangSPEC GRAVITY<=1.220Fschfdmh9.005-<=1.025 The Protestant HospitalComment on above:Performed By: #### TJ STORY ####[facility] [address] [place], [place] [address]. Yilan ChangUA PROTEINNegativeNormalNEGATIVE/ TRACEThe Wyalusing HospitalComment on above:Performed By: #### SHAAN STORYR ####[facility] [address] [place], [place]Dr. Miranda Griffiths MICRO INDINDICATEDNormalThe Protestant HospitalComment on above:Performed By: #### TJ STORY ####[facility] [address] [place], [place]Dr. Miranda Claudio Urobilinogen Qn (U)0.2 {Muriel'U}/dLNormal0.2 - 1.0The Wyalusing HospitalComment on above:Performed By: #### SHAAN STORYR ####[facility] [address] [place], [place]Dr. Miranda ClaudioPROF 14(COMP METB)on 72-78-0560Xmyuqbj [Mass/Vol]3.5 g/dLNormal3.4-5.0The Protestant HospitalComment on above:Performed By: #### CMP #### [facility] [address] [place] [address] Dr. Miranda ClaudioAlbumin/Globulin [Mass ratio]1.0 {ratio}NormalThe Protestant HospitalComment on above:Performed By: #### CMP #### [facility] [address] [address] [address] Miranda Tanner [Catalytic activity/Vol]66 U/KHfznna67-166Oqh [facility] HospitalComsouth[facility] on above:Performed By: #### CMP #### [facility] [address] [address] [address] Miranda Dillard [Catalytic activity/Vol]15 U/RDecomc68-30Rmu Protestant HospitalComment on above:Performed By: #### CMP #### [facility] [address] [address] [address] Miranda Almaguer gap [Moles/Vol]7.1 mmol/LNormalThe [facility] HospitalComsouthwest regional rehabilitation [facility] on above:Performed By: #### CMP #### [facility] [address] [address] [address] Miranda ClaudioAST [Catalytic activity/Vol]16 U/SAhhefh15-59Rey Protestant HospitalComment on above:Performed By: #### CMP #### [facility] [address] [address] [address] Miranda ClaudioBilirubin [Mass/Vol]0.1 mg/dLCritically low0.2-1.0The Protestant HospitalComment on above:Performed By: #### CMP #### [facility] [address] [address] [address] Miranda ClaudioCalcium [Mass/Vol]9.1 mg/dLNormal8.5-10.1[facility] Comment on above:Performed By: #### CMP #### [facility] [address] [address] [address] Miranda ClaudioChloride [Moles/Vol]100 mmol/SIrqdkz10-281Get [facility] Comment on above:Performed By: #### CMP #### [facility] [address] [place] [address] Dr. Miranda ClaudioCO2 [Moles/Vol]30.7 mmol/QJkgziy17.0-32.0[facility] Comment on above:Performed By: #### CMP #### [facility] [address] [address] [address] Miranda ClaudioCreatinine [Mass/Vol]0.64 mg/dLNormal0.55-1.02The Protestant HospitalComment on above:Performed By: #### CMP #### [facility] [address] [address] [address] Miranda DimasGFR-AF MALTESE>60Normal>=60The Protestant HospitalComment on above:Performed By: #### CMP #### [facility] [address] [address] [address] Miranda DimasGFR-NON AF MALTESE>60Normal>=60The Protestant HospitalComment on above:Performed By: #### CMP #### [facility] [address] [address] [address] Miranda ClaudioGlobulin (S) [Mass/Vol]3.6 g/dLNormalThe Protestant HospitalComment on above:Performed By: #### CMP #### [facility] [address] [address] [address] Miranda ClaudioGlucose [Mass/Vol]68 mg/dLCritically sox56-246Vjc Protestant HospitalComment on above:Performed By: #### CMP #### [facility] [address] [address] [address] Miranda ClaudioPotassium [Moles/Vol]3.8 mmol/LNormal3.5-5.1[facility] Comment on above:Performed By: #### CMP #### [facility] [address] [address] [address] Miranda ClaudioProtein [Mass/Vol]7.1 g/dLNormal6.4-8.2[facility] Comment on above:Performed By: #### CMP #### [facility] [address] [address] [address] Miranda ClaudioSodium [Moles/Vol]134 mmol/LCritically ywt648-582Nmu Protestant HospitalComment on above:Performed By: #### CMP #### [facility] [address] [address] [address] Miranda ClaudioUrea nitrogen [Mass/Vol]14.0 mg/dLNormal7.0-18.0The Protestant HospitalComment on above:Performed By: #### CMP #### [facility] [address] [address] [address] Miranda ClaudioUrea nitrogen/Creatinine [Mass ratio]21.9 mg/mgNormSt. Charles HospitalComment on above:Performed By: #### CMP #### [facility] [address] [address] [address] Miranda ClaudioURINE MICROSCOPIC ONLYon 91-86-3735JVXVEGTIBZVD SEENNormalNONE SEENCentervilleComment on above:Performed By: #### JEZ ERUR ####[facility] [address] [place], [place]Drandee ClaudioBacteria identified Cx Nom (U)NOT INDICATEDNormSt. Charles HospitalComment on above:Performed By: #### JEZ ERUR ####[facility] [address] [place], [place]Dr. Miranda ChangCASTNONE SEEN NormalNONE SEENThe Protestant HospitalComment on above:Performed By: #### JEZ, ERUR ####[facility] [address] [place], [place]Dr. Miranda ChangCrystals LM Nom (Urine sed)NONE SEENNormalNONE SEENThe Protestant HospitalComment on above:Performed By: #### JEZ, ERUR ####[facility] [address] [place], [place]Dr. Miranda ChangEpithelial cells LM Ql (Urine sed)NONE SEENNormalNONE SEEN /RAREThe [facility] Comment on above:Performed By: #### JEZ ERUR ####[facility] [address] [place], [place]Dr. Miranda ChangMUCOUSSMALL AbnormalNONE SEENThe [facility] HospitalComsouthwest regional rehabilitation center on above:Performed By: #### JEZ ERUR ####[facility] [address] [place], [place] [address]Uz. Miranda OolzxRIT7-1Aldrtz0-6Dhk [facility] HospitalComsouthwest regional rehabilitation center on above: Performed By: #### JEZ ERUR ####[facility] [address] [place], [place]Dr. Miranda ChangWBCNONE SEENNormalNONE SEENThe Protestant HospitalComment on above:Performed By: #### JEZ ERUR ####[facility] [address] [id number]. Miranda ChangXR CHEST 1 Von 19-08-0693SL CHEST 1 VEXAM: XR CHEST 1 V HISTORY: . COUGH [...] Electronically authenticated by: CM ROBLES Date: 2022-01-27 20:30NoRegency Hospital Cleveland WestXR SHOULDER RT 2V or >on 38-19-1791WE SHOULDER RT 2V or >IMAGES REVIEWED: XR SHOULDER RT 2V or > COMPARISON: 12/27/2021. CLINICAL INDICATION: Pain FINDINGS/IMPRESSION: 1. No evidence of acute osseous abnormality of the right shoulder. 2. 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 3. Old right rib fractures. 4. Osteopenia. Electronically authenticated by: SARAH MOMIN Date: 2022-01-27 20:42NormSt. Charles HospitalXR SCAPULA RTon 17-33-8610ZB SCAPULA RTEXAM: XR SHOULDER RT 2V or >, XR [...] Electronically authenticated by: SANTIAGO HELMS Date: 2021-12-27 12:55[facility] HospitalCOVID-19 Positive/NegativeOrdered By: Stevenson Corbin on 03-04-1150OIDJ-CoV-2 (COVID-19) N gene LARY+probe Ql (Resp)NegativeNegative [facility] HospitalComment on above:Testing for SARS-CoV-2 by RT-PCR This test was developed and its performance characteristics determined by [employer] ([employer] and validated at the [facility]. This test has not been FDA [...] unless the authorization is terminated or revoked sooner.Office Visit (Cardiology)on 82-72-0650Fucpcg-up visit Diagnoses/Problems Assessed Abnormal EKG (794.31) (R94.31) [...] I believe that is sinus but difficult totell due to the baseline artifact. The rhythm [...] false positivity to any type of testing suchas stress testing because of her inability to [...] Sweeney; 09/25/2021 2:31:58 PM (more content not included)...NormalUH TouchworksPHQ-2 VITALSon 32-09-5587Tdmm risk assessmenta) No falls within the last year-[facility] [employer] 250 DO Work Phone: Tobacco use status CPHSb) NoMP-[facility] [employer] 250 DO Work Phone: PHQ-2 VITALSYesMP-[facility] 250 DO Work Phone: [phone]-72 Positive/NegativeOrdered By: Stevenson Corbin on 41-69-7504NNTA-CoV-2 (COVID-19) N gene LARY+probe Ql (Resp)NegativeNegative [facility] HospitalComment on above:Testing for SARS-CoV-2 by RT-PCR This test was developed and its performance characteristics determined by [employer] ([employer] and validated at the [facility]. This test has not been FDA [...] unless the authorization is terminated or revoked sooner.CT LSPINE WO CONon 98-29-5118UW LSPINE WO CONEXAM: CT LSPINE WO CON, CT TSPINE WO [...] Electronically authenticated by: JEFE SAEED Date: 2021-08-22 02:25[facility] LEFT 1 OR 2 VWS WITH PELVISon 54-03-4500UDI LEFT 1 OR 2 VWS WITH PELVISUnMer[facility] Department of Radiology [address] [place] [phone] Patient Name: MELANIE ESPINOZA : 1955 [...] report. Electronically signed: Marisela Reveles. Transcribed by: [email or web address], User Resident: ORIANA REILLY Electronically Signed by: MARISELA REVELES @ 01/27/2021 12:26 PM I personally read this/these film(s) with this [facility] HospitalComment on above:Order Comment: EvaluateHIP LEFT 1 OR 2 VWS WITH PELVISon 74-11-3105ESA LEFT 1 OR 2 VWS WITH PELVISUnMercy Health [facility]sburg Hospital Department of Radiology [address] [place] [phone] Patient Name: MELANIE ESPINOZA : 1955 [...] Electronically signed: Jose Armando Kwon. Transcribed by: [email or web address], User Resident: Electronically Signed by: JOSE ARMANDO KWON @ 09/15/2020 08:28 PMNormalThe [facility] Memorial HospitalComment on above:Order Comment: evaluateHIP LEFT 1 OR 2 VWS WITH PELVISon 58-36-0382AOH LEFT 1 OR 2 VWS WITH PELVISUnMer[facility] Health [facility] Department of Radiology [address] [place] [phone] Patient Name: MELANIE ESPINOZA : 1955 [...] complication Electronically signed: Willow Stapleton. Transcribed by: [email or web address], User Resident: Electronically Signed by: WILLOW STAPLETON @ 06/17/2020 08:01 AMNMercy Health West HospitalComment on above:Order Comment: Views (X-RAY, HIP): AP Hip, Frogleg Lateral HipHIP LEFT 1 OR 2 VWS WITH PELVISon 67-68-8424MXJ LEFT 1 OR 2 VWS WITH PELVISUnMer[facility] Health [facility] Department of Radiology [address] [place] [phone] Patient Name: MELANIE ESPINOZA : 1955 Sex: F Age: Race: White Pt. Location: 84 Patient Status: O Ordered Date: 2020 1:25:00 PM Completed Date: 2020 01:30 PM Requesting Provider: HERVE STARKEY Attending Provider: HERVE STARKEY Report Copy To: Signs & Symptoms: M25.552 Pain in left hip I10 History: Motley Comments: Exam: HIP LEFT 1 OR 2 [...] impaction. Electronically signed: Deion Hernandez. Transcribed by: [email or web address], User Resident: Electronically Signed by: DEION HERNANDEZ @ 2020 04:11 [facility] RehabilitationH[facility] 1 OR 2 VWS WITH PELVISon 04-14-2020 HIP LEFT 1 OR 2 VWS WITH PELVISUnMer[facility] Health [facility] Department of Radiology [address] [place] [phone] Patient Name: MELANIE ESPINOZA : 1955 Sex: F Age: Race: White Pt. Location: 84 Patient Status: O Ordered Date: 04/14/2020 9:20:00 AM Completed Date: 04/14/2020 09:27 AM Requesting Provider: HERVE STARKEY Attending Provider: HERVE STARKEY Report Copy To: Signs & Symptoms: M25.552 Pain in left hip I10 History: Motley Comments: Evaluate Exam: HIP LEFT 1 OR [...] fracture. Electronically signed: Antonio Bernal. Transcribed by: [email or web address], User Resident: Electronically Signed by: ANTONIO BERNAL @ 04/14/2020 10:04 [facility] HospitalComment on above:Order Comment: Evaluate Coding Summaryon 65-05-5441Nhzlla SummaryCODING DATE: 01/13/2020 [facility] STATUS: Home PAYOR: Medicaid HMO [...] By: Nikhil Zamudio Date Saved: 01/13/2020 06:25 [facility] HospitalCoding SummaryCODING DATE: 01/13/2020 [facility] STATUS: Home PAYOR: Medicaid HMO [...] By: Nikhil Zamudio Date Saved: 01/13/2020 06:24 [facility] HospitalCoding SummaryCODING DATE: 01/13/2020 [facility] STATUS: Home PAYOR: Medicaid HMO [...] By: Bryan Zamudio' Date Saved: 01/13/2020 06:24 [facility]NUniversity [facility] Clinical Summaryon 40-48-1390JN Clinical [facility] - Emergency Department [address] [place] [address] ED Clinical Summary PERSON INFORMATION Name: MELANIE ESPINOZA Age: 64 Years Sex: FEMALE : 1955 MRN: Acct#: Visit Reason: Hernia; ABD PAIN Arrival: 01/09/2020 15:42:54 Discharge: 01/09/2020 16:20:00 LOS: 000 00:38 Check In: 01/09/2020 15:42:54 Checkout:01/09/2020 16:20:00 Address: [address] [place] [address] [facility] [address] PCP: ESTEBAN GARZA PROVIDER INFORMATION Provider Role [...] Hernia Follow-Up: With: Address: When: Calvin Aguilar [address] [place] [address] [id number] [facility] (1) Within 2 to 4 days [...] hernia; Ventral hernia Patient Understands: Yes - Patient/family/caregiver verbalizes understanding of instructions given Comment:[facility] Note - Physicianon 98-26-6931PB Note - PhysicianPatient: MELANIE ESPINOZA Age: 64 years Sex: FEMALE [...] spontaneously. Symptoms started several hours ago. She notedprotrusion of the abdomen area, ventral wall, much more notable and significant pain around the area. She stated that she did had known of the hernia, had discussed with her primary care physician and had no specific disposition at this time. She denies any associated nausea or vomiting. She deniesany recent problem with eating or drinking. Review [...] Reviewed as documented in chart. Surgical history: Esophagogastroduodenoscopy ([id number]) on 01/17/2018 at 62 Years., Reviewed as [...] Impression and Plan Diagnosis Incarcerated ventral hernia (GRE41-EC K43.6, Discharge, Medical) Ventral hernia (QIV18-TD K43.9, Discharge, Medical) Plan Condition: Improved, Stable. [...] [Verified on: 01/12/2020 15:09 EDT] Wade Hassan MDNoGuernsey Memorial HospitalED Note-Nursingon 67-00-3607KT Note-Nursing Pt presents to the ED with a hernia. Pt states increased pain in that area. [facility] Patient Education Noteon 06-98-4576CS Patient Education NoteEducation Materials Gastroenterology Ventral Hernia A ventral hernia [...] the hernia (incarcerated hernia). This type of herniadoes not reduce. ? A hernia that cuts [...] bulge in the abdomen. A reducible hernia maybe visible only when you strain, cough, or [...] increase pressure on your hernia. ? Take xpth-cvc-oyyzvws and prescription medicines only as told by [...] 03/18/2013 Document Revised: 05/14/2018 Document Reviewed: 10/21/2017 IPDIA Patient Education ? 2019 [employer].[facility] HospitalED Patient Summaryon 77-23-0630OA [facility] SummaryK[facility] - [facility] [address] [place], [place] [id number] PATIENT DISCHARGE INSTRUCTIONS Patient Information Name: MELANIE ESPINOZA Age: 64 Years Date of : 1955 Reason For Visit: Hernia; ABD PAIN Arrival Time: 01/09/2020 15:42:54 Primary Care Physician: ESTEBAN GARZA Attending Physician: Wade Hassan MD Comment: Visit Diagnosis: Diagnoses This Visit Hernia ([id number]) Incarcerated ventral hernia (K43.6) Ventral hernia (K43.9) Prescription Information: If you have been given a prescription for narcotics, seek immediate medical attention if you have any difficulty breathing or any sudden status changes such as confusion andsleepiness. If you or anyone you know is experiencing suicidal thoughts, mental health, alcohol and/or drug addiction problems; contact the [facility] Replaced By [facility] 05/11 Crisis Hotline -Text 4HCJT ro [id number]. If you received any narcotics, sedation, or [...] legal documents With: Address: When: Calvin Aguilar [address] [place] [address], [place] [address] Business (1) Within 2 to 4 days [...] and treatment you received today in the [facility] Emergency Department were for an urgent problem and are not intended as complete care. It is important for you to follow up with a doctor, nurse practitioner, or physician?s customer support assistant for ongoing care. If your symptoms become worse or you donot improve as expected and you are unable [...] so we can reach you if necessary. [facility] has provided you with a complete list of medications post discharge. Please inform your guest services ambassador/provider of your visit and for further instruction [...] the hernia (incarcerated hernia). This type of herniadoes not reduce. ? A hernia that cuts [...] bulge in the abdomen. A reducible hernia maybe visible only when you strain, cough, or [...] increase pressure on your hernia. ? Take mnwq-ubv-pwhbhbo and prescription medicines only as told by [...] 03/18/2013 Document Revised: 05/14/2018 Document Reviewed: 10/21/2017 IPDIA Patient Education ? 2019 [employer]. Viruses or Bacteria What?s got you sick? [...] Centers for Disease Control and Prevention December 2013[facility] Coding Summaryon 43-71-1516Frydwk SummaryCODING DATE: 09/24/2019 [facility] STATUS: Home PAYOR: Medicaid HMO [...] By: Carine Ferraro Date Saved: 09/24/2019 03:29 [facility].Thyroglobulin by SKYLAR LCon 61-28-0546Thhfwfrhndajw by [facility] LC13.6 ng/mL1.5-38.5[facility] Health PrebleComment on above:Result Comment: According to the National Academy of [...] by Fina Harmony Immunometric Assay Performed At: [facility] [address] [place], [place] [id number] Bebo Jeter PhD Ph:[phone] By: #### [id number], [id number], [id number], [id number], [id number], [id number] ####[facility] (DEFAULT)[address] [place] [address]Dhxmvrmg [place] 51-29-3264Wlwjkgiq Orders [id number]#1.00OTGTIFFGlenbeigh HospitalT3 Free LCon 47-66-9013Gmzkllahhvqgynju,Free,Serum LC2.0 pg/mL2.0-4.4[facility] PrebleComment on above:Result Comment: Performed At: [id number] [place], [place] [id number] Bebo Jeter PhD Ph:[phone] By: #### [id number], [id number], [id number], [id number], [id number], [id number] #### [facility] (DEFAULT) [address] [place] [address]Vbhiankuhmlop Reflex Profile LCon 47-89-7672Ulykcydjhmonu Antibody LC<1.00.0-0.9[facility] Health PrebleComment on above:Result Comment: Thyroglobulin Antibody measured by LATTO Method[employer] Performed At: [address] [id number] Bebo Jeter PhD Ph:[phone] By: #### [id number], [id number], [id number], [id number], [id number], [id number] ####[facility] (DEFAULT)[address] [place] [address]Ocwkbts Peroxidase (TPO) Ab on 09-23-2019 Thyroid Peroxidase (TPO) Ab LC<90-34[facility] PrebleComment on above:Result Comment: Performed At: [address] [id number] Bebo Jeter PhD Ph:[phone] By: #### [id number], [id number], [id number], [id number], [id number], [id number] #### [facility] (DEFAULT) [address] [place] [address]Lapo T4on 68-46-3284Seow T4 [Mass/Vol]0.90 ng/dLNormal 0.61-1.12[facility] PrebleComment on above:Result Comment: Specimens that contain high levels of Biotin may cause false high resultsPerformed By: #### [id number], [id number], [id number], [id number], [id number], [id number] #### [facility] (DEFAULT) [address] [place] [address]PMUdk 76-69-1646GAL Qn2.07 mcIU/mLNormal0.45-5.33[facility] PrebleComment on above:Result Comment: General Population (males and non- females, aged 21-88) 0.45 - 5.33 Females, 1st Trimester 0.05 - 3.70 Females, 2nd Trimester 0.31 - 4.35 Females, 3rd Trimester 0.41 - 5.18Performed By: #### [id number], [id number], [id number], [id number], [id number], [id number] #### [facility] (DEFAULT) [address] [place], [place] [address]Pvzpnj Summaryon 87-94-4286Vtyjrv SummaryCODING DATE: 06/18/2019 FINAL [facility] STATUS: Home PAYOR: Medicaid HMO [...] By: Carine Ferraro Date Saved: 06/18/2019 01:32 [facility] HospitalUS Thyroidon 61-72-1179FT ThyroidEXAM: US Thyroid HISTORY: AUTOIMMUNE THYROIDITIS COMPARISON: None [...] Vincent Huntley MD 06/17/19 4:26 pm Technologist: KRISTINAGlenbeigh HospitalProvider [place] 20-70-6270Pogomqtv [id number]#1.00OTGTIFFFayette County Memorial Hospital HospitalCoding Summaryon 17-98-9318Wevume SummaryCODING DATE: 05/29/2019 [facility] STATUS: Home PAYOR: Medicaid HMO [...] By: Deb Law Date Saved: 05/29/2019 12:32 [facility] HospitalProvider [place] 18-58-2193Rdugbvvt [id number]#1.00OTGTIFF [facility] HospitalXR Chest 2 Viewson 21-08-5026XL Chest 2 ViewsEXAM: XR Chest 2 Views HISTORY: SOB (R06.02) [...] Vincent Huntley MD 05/27/19 4:03 pm Technologist: DORINDAKindred Hospital Dayton Vital Signs Date TimeVital SignValuePerforming VoayegregVwbtjujs67-43-0509 22:58-0400Body mass index (BMI) [Ratio]17.25 kg/s0Qxxtnp [employer] DO Work Phone: [facility]09-23-2025 22:58-0400Body rigroookpvz92.81 [degF]Alexey [employer] DO Work Phone: [facility]09-23-2025 22:58-0400Body .18 kgDennis Kessler Institute For RehabilitationAntegrin [employer]rapeutics DO Work Phone: [facility]09-23-2025 22:58-0400Diastolic blood nicpdpqz09 mm[Hg]Alexey Pedersonlong DO Work Phone: [facility]09-23-2025 22:58-0400Heart rate 61 /minDennis Furlong DO Work Phone: [facility] HospitalGen[facility]09-23-2025 22:58-0400 Respiratory rate18 /minDennis Furlong DO Work Phone: [facility]09-23-2025 22:58-7801VmV9% (BldA) [Mass fraction]94 %Alexey Furlong DO Work Phone: [facility] Hospital[facility]09-23-2025 22:58-0400Systolic blood twhlutjn667 mm[Hg]Alexey Pedersonlong DO Work Phone: [facility]08-22-2025 22:44-0400Body mass index (BMI) [Ratio]17.11 kg/q8Nwyeyf Furlong DO Work Phone: [facility]08-22-2025 22:44-0400Body cgpfphkephe32.9 [degF]Alexey Pedersonlong DO Work Phone: [facility]08-22-2025 22:44-0400Body xxhxau24.82 kgDennaun Pedersonlong DO Work Phone: [facility]08-22-2025 22:44-0400Diastolic blood taiwqqhk45 mm[Hg]Alexey Pedersonlong DO Work Phone: [facility]08-22-2025 22:44-0400Heart rate 62 /minDennis Furlong DO Work Phone: [facility] HospitalGen[facility]08-22-2025 22:44-0400 Respiratory rate18 /minDennis Furlong DO Work Phone: [facility]08-22-2025 22:44-1477NhR7% (BldA) [Mass fraction]94 %Alexey Furlong DO Work Phone: [facility]08-22-2025 22:44-0400Systolic blood orjuyrjo778 mm[Hg]Alexey Connor DO Work Phone: [facility]07-23-2025 11:35-0400Body tujkin356 Zackary Trevizo MD Work Phone: [facility] HospitalVohtopuhip94-42-7251 11:35-0400Body mass index (BMI) [Ratio]17.71 kg/d1YqswqDionicio Trevizo MD Work Phone: [facility] HospitalGmidihvemi41-76-3200 11:35-0400Body mrzhka51.36 kgDionicio Trevizo MD Work Phone: [facility] HospitalCoxyzuqfci50-41-6801 11:35-0400Heart rate62 /min Dionicio Trevizo MD Work Phone: [facility] HospitalSpilpggajn12-08-1545 11:35-0400Respiratory rate16 /minDionicio Trevizo MD Work Phone: [facility] HospitalBltdnoprzl07-48-2054 11:35-7448MpW0% (BldA) [Mass fraction]97 %Dionicio Trevizo MD Work Phone: [facility] HospitalKhhqcjeryq06-78-0385 11:06-0400Body mass index (BMI) [Ratio]17.75 kg/h5SzkptnAlexey Connor DO Work Phone: [facility]07-18-2025 11:06-0400Body lkzzqxpykig56.1 [degF]Alexey Connor DO Work Phone: [facility]07-18-2025 11:06-0400Body pfrkuc30.45 kgAlexey Bradfordng DO Work Phone: [facility]07-18-2025 11:06-0400Diastolic blood gbdjxvru40 mm[Hg]Alexey Connor DO Work Phone: [facility] [facility]07-18-2025 11:06-0400Heart rate 59 /minDakilais Furlong DO Work Phone: [facility] [employer] Lcrouc52-05-1912 11:06-0400 Respiratory rate20 /minDakilais Furlong DO Work Phone: [facility] [employer] Yjkxhh60-46-3083 11:06-0527DlW6% (BldA) [Mass fraction]97 %Alexey Pedersonlong DO Work Phone: [facility] [employer] Uwrriu19-39-3695 11:06-0400Systolic blood liixsiox730 mm[Hg]Alexey Pedersonlong DO Work Phone: [facility] [employer] Lbomcq40-69-3845 13:22-0400Body mass index (BMI) [Ratio]17.86 kg/t9WmpoiaAlexey Pedersonlong DO Work Phone: [facility] [employer] Jtlkhg20-32-2064 13:22-0400Body peluakcqvbj91.81 [degF]Alexey Pedersonlong DO Work Phone: [facility] [employer] Qfxdyc77-56-1437 13:22-0400Body feyuhk73.72 kgDennaun Pedersonlong DO Work Phone: [facility] [employer] Hdtczp90-38-8840 13:22-0400Diastolic blood cwpkqqay65 mm[Hg]Alexey Pedersonlong DO Work Phone: [facility] [employer] Mbfwrt47-76-5965 13:22-0400Heart rate 54 /Emilyis Bglong DO Work Phone: [facility] [employer] Gaqmxo03-30-5222 13:22-0400 Respiratory rate20 /minDakilais Bglong DO Work Phone: [facility] [employer] Kzvndv25-87-0212 13:22-5728MnC3% (BldA) [Mass fraction]97 %Alexey Pedersonlong DO Work Phone: [facility] [employer] Xvxgss18-51-6696 13:22-0400Systolic blood wyrmjcla469 mm[Hg]Alexey Furlong DO Work Phone: [facility] [employer] Pujagh05-80-1657 09:31-0400Body mass index (BMI) [Ratio]17.86 kg/t8Weahbi Furlong DO Work Phone: [facility] [employer] Zwnsth63-62-0942 09:31-0400Body kbfwenhscer63.81 [degF]Alexey Pedersonlong DO Work Phone: [facility] [employer] Xlejmq78-94-8929 09:31-0400Body uvksdp43.72 kgDennaun Pedersonlong DO Work Phone: [facility] [employer] Mkmdog08-46-0556 09:31-0400Diastolic blood mm[Hg]Alexey Bradfordng DO Work Phone: [facility] [employer] Fjrmke73-95-9212 09:31-0400Heart rate 54 /minDakilais Bglong DO Work Phone: [facility] [employer] Ilheid22-37-3349 09:31-0400 Respiratory rate20 /minDakilais Bglong DO Work Phone: [facility] [employer] Vujpvi14-39-7403 09:31-0142AxZ6% (BldA) [Mass fraction]97 %Alexey Pedersonlong DO Work Phone: [facility] [employer] Vkxavg24-57-1374 09:31-0400Systolic blood hcstsawz199 mm[Hg]Alexey Bradfordng DO Work Phone: [facility] [employer] Ckweib77-16-9284 20:01-0400Body mass index (BMI) [Ratio]17.82 kg/y7IclwkwAlexey Pedersonlong DO Work Phone: [facility] [employer] Mbfnuq80-42-2670 20:01-0400Body jttcoryaebf22.1 [degF]Alexey Bradfordng DO Work Phone: [facility] [employer] Obcgtl25-01-9066 20:01-0400Body nluxgg96.63 kgAlexey Pedersonlong DO Work Phone: [facility] [employer] Mcscib84-83-9929 20:01-0400Diastolic blood lseclrej74 mm[Hg]Alexey Pedersonlong DO Work Phone: [facility] [employer] Tfukdk45-52-1205 20:01-0400Heart rate 72 /Emilyis Bglong DO Work Phone: [facility] [employer] Ecqxuf72-56-0562 20:01-0400 Respiratory rate17 /Emilyis Furlong DO Work Phone: [facility]05-30-2025 20:01-8993BbZ0% (BldA) [Mass fraction]97 %Alexey Pedersonlong DO Work Phone: [facility] [employer] Jvtdkb76-16-4657 20:01-0400Systolic blood lfyjsrtq742 mm[Hg]Alexey Pedersonlong DO Work Phone: [facility] [employer] Xnqoqn62-19-3940 16:40-0400Body mass index (BMI) [Ratio]17.93 kg/e0Auhjuo Furlong DO Work Phone: [facility] [employer] Jblyxk56-26-6757 16:40-0400Body oaizutbbusw81.9 [degF]Alexey Pedersonlong DO Work Phone: [facility] Ehqszd91-39-1998 16:40-0400Body acnzaj30.9 kgDennaun Pedersonlong DO Work Phone: [facility] Chmfto06-16-5175 16:40-0400Diastolic blood pcpktyad55 mm[Hg]Alexey Pedersonlong DO Work Phone: [facility] Gemktu45-55-1354 16:40-0400Heart rate 90 /Emilyis Bglong DO Work Phone: [facility] Ztemxs91-38-6998 16:40-0400 Respiratory rate18 /Emilyis Bglong DO Work Phone: [facility] Gifaac54-76-2700 16:40-9603EeQ6% (BldA) [Mass fraction]96 %Alexey Pedersonlong DO Work Phone: [facility]2025 16:40-0400Systolic blood ylcylesd718 mm[Hg]Alexey Pedersonlong DO Work Phone: [facility] [employer] Amsjgj85-76-9404 18:11-0400Body mass index (BMI) [Ratio]18.32 kg/g0Pdhwur Bglong DO Work Phone: [facility]onCabin03-20-2025 18:11-0400Body fubxrwsynog43.2 [degF]Alexey Pedersonlong DO Work Phone: [facility]03-20-2025 18:11-0400Body qxqxna42.9 kgAlexey Bradfordng DO Work Phone: [facility]03-20-2025 18:11-0400Diastolic blood rlorshbe33 mm[Hg]Alexey Bradfordng DO Work Phone: [facility] [employer] Zgummw30-09-7109 18:11-0400Heart rate 68 /Emilyis Bglong DO Work Phone: [facility] [employer] Nhtoab38-17-7999 18:11-0400 Respiratory rate18 /minDakilais Bglong DO Work Phone: [facility] [employer] Tuhblq39-54-4345 18:11-6061IyU4% (BldA) [Mass fraction]96 %Alexey Pedersonlong DO Work Phone: [facility]03-20-2025 18:11-0400Systolic blood tkfucxea481 mm[Hg]Alexey Pedersonlong DO Work Phone: [facility] [employer] Lfswxe43-80-1660 18:54-0500Body wxwrqyulcyy83.4 [degF]Alexey Pedersonlong DO Work Phone: [facility]02-12-2025 18:54-0500Diastolic blood gfuccaxd92 mm[Hg]Alexey Connor DO Work Phone: [facility] [employer] Qdfbxj74-65-5124 18:54-0500Heart rate 71 /Suzan Connor DO Work Phone: [facility] Tnrqwn63-80-5344 18:54-0500Systolic blood rgihfqcb188 mm[Hg]Alexey Connor DO Work Phone: [facility] Icxpev70-01-2214 11:25-0500Body ofitwf308.5 Zackary Trevizo MD Work Phone: [facility]qwxhjuidf92-73-8576 11:25-0500Heart rate69 /min Dionicio Trevizo MD Work Phone: [facility] HospitalYenwfhwund92-15-2367 11:25-0500Respiratory rate16 /minDionicio Trevizo MD Work Phone: [facility] HospitalTqyxukeypj56-54-5754 15:57-0500Diastolic blood uwaebker793 mm[Hg]Alexey Connor DO Work Phone: [facility]01-03-2025 15:57-0500Heart rate 75 /Suzan Connor DO Work Phone: [facility] Xfraib69-68-9924 15:57-0500Systolic blood guuipdjy898 mm[Hg]Alexey Connor DO Work Phone: [facility] Gargnl82-44-8330 18:28-0500Body mass index (BMI) [Ratio]16.37 kg/r6Lbbijznaun Connor DO Work Phone: [facility] Irnkxc31-47-9238 18:28-0500Body iuioodoiiar63.2 [degF]Alexey Connor DO Work Phone: [facility] Ukixvu72-04-0701 18:28-0500Body csoknj10.91 kgDennaun Connor DO Work Phone: [facility] Yxycfb09-02-1708 18:28-0500Diastolic blood tfsewmso50 mm[Hg]Alexey Furlong DO Work Phone: [facility]12-18-2024 18:28-0500Heart rate 82 /minDennis Furlong DO Work Phone: [facility]12-18-2024 18:28-0500 Respiratory rate18 /minDennis Furlong DO Work Phone: [facility]12-18-2024 18:28-5843WfX1% (BldA) [Mass fraction]95 %Alexey Furlong DO Work Phone: [facility]12-18-2024 18:28-0500Systolic blood wuwwfmjp683 mm[Hg]Alexey Furlong DO Work Phone: [facility]10-31-2024 13:49-0400Body txxovy420.02 cmDO Alexey Furlong Work Phone: [phone]10-31-2024 11:54-0400 Body psmtpgobivy63.1 [degF]DO Alexey Furlong Work Phone: [phone]10-31-2024 11:54-0400 Diastolic blood sxutfxeu82 mm[Hg]DO Alexey Furlong Work Phone: [phone]10-31-2024 11:54-0400 Heart rate96 /minDO Alexey Furlong Work Phone: [facility]10-31-2024 11:54-0400 Respiratory rate16 /minDO Alexey Furlong Work Phone: [phone]10-31-2024 11:54-0400 SaO2% (BldA) [Mass fraction]95 %DO Alexey Furlong Work Phone: [phone]10-31-2024 11:54-0400 Systolic blood xluvsutk966 mm[Hg]DO Alexey Furlong Work Phone: [facility]10-30-2024 18:25-0400 Inhaled oxygen flow rate8 L/minDO Alexey Connor Work Phone: [facility]10-30-2024 12:30-0400 Body .7 kgDO Alexey Connor Work Phone: [facility]07-30-2024 10:53-0400 Body mass index (BMI) [Ratio]16.83 kg/x3CfvveoTai Hinojosa MD Work Phone: [facility]07-30-2024 10:53-0400Body .09 kgTai Hinojosa MD Work Phone: [facility]07-30-2024 10:53-0400Diastolic blood ogxrkkhy21 mm[Hg]Tai Hinojosa MD Work Phone: [facility]07-30-2024 10:53-0400Heart rate72 /min Tai Hinojosa MD Work Phone: [facility]07-30-2024 10:53-8758XxW3% (BldA) [Mass fraction]93 %Tai Hinojosa MD Work Phone: [facility]07-30-2024 10:53-0400Systolic blood nnhmjxqi819 mm[Hg]Tai Hinojosa MD Work Phone: [facility]10-17-2022 12:15-0400Body dgcdoq620.29 cmThomas Olexa Other [facility] [employer] Other 09-20-2022 08:47-0400Body qtituf18.9 kgTai Hinojosa MD Work Phone: [facility]09-20-2022 08:47-0400Diastolic blood wewnnopa97 mm[Hg]Tai Hinojosa MD Work Phone: [facility]09-20-2022 08:47-0400Heart rate68 /min Tai Hinojosa MD Work Phone: [facility]09-20-2022 08:47-6021ArG8% (BldA) [Mass fraction]96 %Tai Hinojosa MD Work Phone: [facility]09-20-2022 08:47-0400Systolic blood mm[Hg]Tai Hinojosa MD Work Phone: [facility]08-24-2022 15:00-0400Body rqwedb843.29 cmAbdul Jabier Other [place] [employer] Other [id number] 15:00-0400Body ccfgsmdisft55 [degF]Sena Jabier Other [employer] Other 08-24-2022 15:00-0400Diastolic blood oucuugoc69 mm[Hg] Sena Jabier Other [place] [employer] Other 08-24-2022 15:00-0400Respiratory rate18 /minAbdul Jabier Other [employer] Other 08-24-2022 15:00-9262EwC0% (BldA) [Mass fraction]96 % Sena Jabier Other [place] [employer] Other 08-24-2022 15:00-0400Systolic blood edxmxndz057 mm[Hg] Sena Jabier Other [employer] Other 07-06-2022 12:35-0400Diastolic blood mm[Hg] MD Stevenson Corbin Work Phone: [facility]07-06-2022 12:35-0400 Heart rate64 /minMD Stevenson Corbin Work Phone: 1([phone])625-[address] [place], [place] 1683807-06-2022 12:35-0400 Respiratory rate16 /min Stevenson Corbin Work Phone: [facility]07-06-2022 12:35-0400 SaO2% (BldA) [Mass fraction]95 %MD Stevenson Corbin Work Phone: [facility]07-06-2022 12:35-0400 Systolic blood judozekd640 mm[Hg]MD Stevenson Corbin Work Phone: [phone] [place], [place] 1683807-06-2022 12:19-0400 Body orgzoo360.02 cmMD Gamino Logandimitris Work Phone: [phone]07-06-2022 12:19-0400 Body mass index (BMI) [Ratio]18.1 kg/m2MD Stevenson Corbin Work Phone: [phone] [place], [place] 0125507-06-2022 12:19-0400 Body icjjws82.6 kg Stevenson Shaquille Work Phone: 1(354)[phone] [place], [place] 1683807-06-2022 11:35-0400 Inhaled oxygen flow rate2 L/minMD Gamino Shaquille Work Phone: [phone] [place], [place] 1683807-06-2022 10:53-0400 Body ojotehuodim65.1 [degF]MD Stevenson Corbin Work Phone: [facility]06-13-2022 14:35-0400 Diastolic blood mwcauauw46 mm[Hg]Alexey Pedersonlong Work Phone: mp745-0482JB-Gkdwc [place] [employer] [address] DO Work Phone: 1(507) 459-333706-13-2022 14:35-0400Systolic blood mxfrrrgu607 mm[Hg] Alexey Garcia Furlong Work Phone: [facility] [employer] [address] DO Work Phone: 1(962) 308-927006-13-2022 14:32-0400Body jilnmb134.02 cmJosenaun Garcia Furlong Work Phone: [facility] 250 DO Work Phone: 1(300) 789-538606-13-2022 14:32-0400Body mass index (BMI) [Ratio] 18.42 kg/v8Nrprxe G Furlong Work Phone: mp147-9909MJ-CdfkaSt. Mary'S Hospital 250 DO Work Phone: 1(370) 378-169706-13-2022 14:32-0400Body surface area Derived from formula1.46 v0Jqimnt G Furlong Work Phone: mp693-9663XY-RnpjiSt. Mary'S Hospital 250 DO Work Phone: 1(510) 951-112106-13-2022 14:32-0400Body .17 kgAlexey Garcia Furlong Work Phone: mp986-9265YP-TzgllSt. Mary'S Hospital 250 DO Work Phone: 1(572) 382-147106-13-2022 14:32-0400Diastolic blood ozenprqq64 mm[Hg] Alexey Pedersonlong Work Phone: mp836-3672QZ-[place]opCyn[place] [address] DO Work Phone: 1(889) 923-399106-13-2022 14:32-0400Heart rate83 /minDuyen Garcia Furlong Work Phone: mp390-9960DX-KlpneSt. Mary'S Hospital 250 DO Work Phone: 1(488) 285-589106-13-2022 14:32-0400Systolic blood urhlonzd543 mm[Hg] Alexey Pedersonlong Work Phone: mp331-5648BC-BcsrqCynthia Ville [address] DO Work Phone: 1(792) 409-666106-01-2022 12:08-0400Body .02 cmMD Stevenson Olexa Work Phone: [facility]06-01-2022 12:08-0400 Body mass index (BMI) [Ratio]18.6 kg/m2MD Stevenson Olexa Work Phone: [facility]06-01-2022 12:08-0400 Body .8 kgMD Stevenson Olexa Work Phone: [facility]02-15-2022 09:45-0500 Body kekytw674.29 cmThomas Olexa Other [employer] Other 02-15-2022 09:45-0500Body mass index (BMI) [Ratio] 16.39 kg/d5Xppsjh Olexa Other [employer] Other 02-15-2022 09:45-0500Body kepiju25.64 kgThomas Olexa Other [employer] Other 12-08-2021 14:00-0500Body .29 cmEeileenfrannie Bosch Other [employer] Other 12-08-2021 14:00-0500Body mass index (BMI) [Ratio] 16.56 kg/y9MoxpdRadha Bosch Other [employer] Other 12-08-2021 14:00-0500Body zyxjfsdlfro92.2 [degF]Radha Bosch Other [employer] Other 12-08-2021 14:00-0500Body sxgnqi36.09 kgRadha Bosch Other [employer] Other 12-08-2021 14:00-0500Diastolic blood mdgyzgjp78 mm[Hg] Radha Bosch Other [employer] Other 12-08-2021 14:00-0500Respiratory rate18 /minEmando Bosch Other [employer] Other 12-08-2021 14:00-9203KhU8% (BldA) [Mass fraction]96 % Radha Bosch Other [place] [employer] Other [id number] 14:00-0500Systolic blood rxeijraa795 mm[Hg] Radha Bosch Other [place] [employer] Other Encounters Encounter DateEncounter TypeCare ProviderFacilityStart: 40-09-2534qqvkjinswz Gilma X OrzechFacility:[place] BellevueStart: 01-22-2025 End: 63-02-1784wugbsolxwdKWIDMSalem Regional Medical Centertart: 01-05-2025 End: 74-81-1662Rpzosjkyvb Jaime Connor DO Work Phone: [facility] Family MedicineComment on above:Right knee pain, unspecified chronicity (Primary Dx); Hypo-osmolality and hyponatremia; SIADH (syndrome of inappropriate ADH production); Primary hypertension; Movement disorder; Multifactorial gait disorder; Hyperlipidemia, unspecified hyperlipidemia typeStart: 12-24-2024 End: 55-78-9188kslhmdtdjfUugdjj Furlong DO Work Phone: [facility] Work Phone: Start: 12-24-2024 End: 44-35-3072Uteytup encounter procedureNickolas Hawthorne DO-[facility] [place] Work Phone: Start: 12-04-2024 End: 52-15-0913Cxlpubaevd CareDennis G Bglong DO Work Phone: [facility] - Family MedicineComment on above:Primary hypertension (Primary Dx); SIADH (syndrome of inappropriate ADH production); Acquired hypothyroidism; Hypoglycemia; Tardive dyskinesia; Iron deficiency anemia, unspecified iron deficiency anemia type; Multifactorial gait disorderStart: 11-04-2024 End: 56-13-1449Srcxho Mele Trevizo MD Work Phone: [facility] END[facility]CRINOLOGYStart: 11-04-2024 End: 00-63-6352Vtzsvh flowsheetDionicio Trevizo MD Work Phone: [facility] ENDOCRINOLOGYStart: 11-04-2024 End: 86-19-0490Gvtaum outpatient visit 25 minutesDionicio Trevizo MD Work Phone: [facility] ENDOCRINOLOGYComment on above:Acquired hypothyroidism (Primary Dx); Movement disorderStart: 11-04-2024 End: 15-95-0532otbhmcntfkREBCB F SABBAGHNot AvailableStart: 10-30-2024 End: 18-90-6857Qhrunihrft CareJosenis Jose Furlong DO Work Phone: [facility] - Family MedicineComment on above:Closed fracture of tuft of distal phalanx of left ring finger (Primary Dx); Closed fracture of tuft of distal phalanx of left middle finger; Movement disorder; Tardive dyskinesiaStart: 10-09-2024 End: 42-23-0229Srrknxzsha CareDennis G Furlong DO Work Phone: [facility] - Family MedicineComment on above:Movement disorder (Primary Dx); Anxiety; Tardive dyskinesia; SIADH (syndrome of inappropriate ADH production)Primary hypertension (Primary Dx); Anxiety; Tardive dyskinesia; Movement disorderStart: 09-11-2024 End: 47-35-9883Omulsjonfs CareDennis G Furlong DO Work Phone: [facility] - Family MedicineComment on above:Tardive dyskinesia (Primary Dx); Movement disorder; Primary hypertensionStart: 08-10-2024 End: 74-92-9086avqpwveideZsixbp Furlong DO Work Phone: [facility] Work Phone: Start: 08-10-2024 End: 72-50-6869Zmdveku encounter procedureDennis Furlong DO Work Phone: [facility] Work Phone: Start: 08-10-2024 End: 49-04-5189Loynkam encounter procedureDennis Furlong DO Work Phone: [facility] Start: 08-10-2024 End: 14-64-5192mbfiaysazwIgkndk Furlong DO Work Phone: [facility] Work Phone: Start: 08-07-2024 End: 88-62-3121bxmjrpetarCWOXKFostoria City Hospital CenterStart: 08-05-2024 End: 96-83-5796ejdaacteokXionyh G Furlong DO Work Phone: [facility] - Family MedicineComment on above:Tardive dyskinesia (Primary Dx); Primary hypertension; S/P reverse total shoulder arthroplasty, rightStart: 07-21-2024 End: 85-00-7016dtxqbebfdhLgveqd Furlong DO Work Phone: [facility] Work Phone: Start: 07-21-2024 End: 07-26-0089Dobiloi encounter procedureDennis Furlong DO Work Phone: [facility] Work Phone: Start: 07-02-2024 End: 19-68-0859wrotaxnnbkNdlyhp Furlong DO Work Phone: [facility] Work Phone: Comment on above:Primary hypertension (Primary Dx); Tardive dyskinesia; Primary osteoarthritis of right knee; Iron deficiency anemia, unspecified iron deficiency anemia type; Hyperlipidemia, unspecified hyperlipidemia type; Hypokalemia; SIADH (syndrome of inappropriate ADH production) ([facility])Start: 07-02-2024 End: 44-48-1267Jvstfmq encounter procedureDennis Furlong DO Work Phone: [facility] Work Phone: Start: 07-02-2024 End: 30-50-9697Kwkbphn encounter procedureDennis Furlong DO Work Phone: [facility] Start: 07-02-2024 End: 80-59-0256elqsvizbjxKbsqoz Furlong DO Work Phone: [facility] Work Phone: Start: 06-25-2024 End: 40-46-5848jouqgyokflEJEAH [facility] Hospitaltart: 06-01-2024 End: 53-75-5656kkpjfknulqUskltn Furlong DO Work Phone: [facility] Work Phone: Start: 06-01-2024 End: 14-08-9905Zvuypun encounter procedureDennis Furlong DO Work Phone: [facility] Work Phone: Start: 05-27-2024 End: 51-36-9487edkzprukakQiabgr G Furlong DO Work Phone: [facility] - Family MedicineComment on above:SIADH (syndrome of inappropriate ADH production) (CMS- HCC) (Primary Dx); Hyperlipidemia, unspecified hyperlipidemia type; Iron deficiency anemia, unspecified iron deficiency anemia type; Hypo-osmolality and hyponatremia; Hypocalcemia; HypokalemiaStart: 05-06-2024 End: 11-60-5435Lgzzyh flowsJanelle Trevizo MD Work Phone: [facility] ENDOCRINOLOGYStart: 05-06-2024 End: 76-63-5135Sxdpsh flowsJanelle Trevizo MD Work Phone: [facility] ENDOCRINOLOGYStart: 05-06-2024 End: 04-75-6169Smrvhk outpatient visit 25 minutesDionicio Trevizo MD Work Phone: [facility] ENDOCRINOLOGYComment on above:Acquired hypothyroidism (CMS/HCC) (Primary Dx); Movement disorderStart: 05-06-2024 End: 41-24-8893izwocazgxzQWFXH Tom Lewis AvailableStart: 04-17-2024 End: 28-95-3305Ltgfnutshq Jaime Garcia Furlong DO Work Phone: [facility] - Family MedicineComment on above:Primary hypertension (Primary Dx); SIADH (syndrome of inappropriate ADH production) ([facility]); Sleep disorder breathingStart: 04-01-2024 End: 74-44-9031Cxwshbmhlb Jaime Garcia Furlong DO Work Phone: [facility] - Family MedicineComment on above:Aftercare following right shoulder joint replacement surgery (Primary Dx); Witnessed apneic spells; Movement disorderStart: 03-31-2024 End: 08-02-3969Jmhecrf encounter procedureDennis Furlong DO Work Phone: [facility] Work Phone: Start: 03-31-2024 End: 06-60-8686cqjochfdvpZcizf A BaileyFacility:[facility] Hospitaltart: 02-24-2024 End: 91-14-9709qeavwtwrhfQvmffq Furlong DO Work Phone: [facility] Work Phone: Start: 02-24-2024 End: 69-50-7667Xmmgabp encounter procedureDennis Furlong DO Work Phone: [facility] Work Phone: Start: 02-24-2024 End: 38-75-2940Dvlmcua encounter procedureDennis Furlong DO Work Phone: [facility] Ctr-[facility] Start: 02-24-2024 End: 94-02-4016uqoxeoeovmAdrczn Furlong DO Work Phone: [facility] Work Phone: Start: 42-78-8934Ljn-patient / Non-visitDO Alexey Furlong Work Phone: [facility] Work Phone: Start: 02-12-2024 End: 88-34-4382Gahvizkyl to same day surgery centerDO Alexey Furlong Work Phone: [facility] Ctr-Surgery Center [place]: 02-12-2024 End: 07-66-0092scfvjwebbcOX Alexey Furlong Work Phone: [facility] Work Phone: Start: 01-29-2024 End: 89-01-6850Oikmmhc encounter procedureDO Alexey Furlong Work Phone: [facility] Ctr-CT Scan [place] Work Phone: Start: 01-29-2024 End: 83-29-3724pkwiapcjzzMH Alexey Furlong Work Phone: [facility] Work Phone: Start: 01-29-2024 End: 66-82-7528Qyaxanu encounter procedureDO Alexey Furlong Work Phone: [facility] Ywm-Ipr-Nldvqrbd Testing Work Phone: Start: 01-29-2024 End: 50-81-4906iidbsfldkgEB Alexey Furlong Work Phone: [facility] Ctr Work Phone: Start: 92-93-4449Txxjojtyb for preprocedural laboratory examinationNickolas Conde [facility] GroupStart: 01-23-2024 End: 65-85-7791gvuspgzwttNW Alexey Furlong Work Phone: [facility] Work Phone: Start: 01-23-2024 End: 16-95-5560Ybiqfoa encounter procedureDO Alexey Connor Work Phone: [facility] [place] [facility] Work Phone: Start: 12-25-2023 End: 83-74-1598Buevfteaq encounterTai Hinojosa MD Work Phone: NeurologyComment on above:Medication ProblemStart: 92-58-8368Vev-patient / Non-visitDO Alexey Connor Work Phone: [facility] Work Phone: Start: 11-12-2023 End: 93-34-8000tcxhqvrpbxMXTU A NADERERFacility:[facility] [facility] HospitalStart: 11-12[facility]2023 End: 65-98-2364Gonjswd encounter procedureJosabino Hinojosa MD Work Phone: NeurologyComment on above:Lingual facial buccal dyskinesia (Primary Dx); Dyskinesia, tardiveStart: 08-26-2023 End: 13-58-9258lrgbcpwysqJAJMWA G FURLONGProMedica Clarkdale HospitalStart: 08-26-2023 End: 90-79-7971krdhmmbxijLHJKHV G FURLONGProMedica Clarkdale HospitalStart: 44-48-7136Rbptiezbv for preprocedural cardiovascular examinationSOUTHWEST [facility] HospitalStart: 88-71-0958kvhgdfwlwhBzovv Hyland RNNavigatSelect Specialty Hospital - Harrisburg EnterpriseComment on above:MARVIN VINES RN (Medication Adherence review per request of payer)Start: 37-98-2007Jgsoll outpatient visit 15 minutes Stevenson [facility] OrthopedicsStart: 06-18-2022 End: 35-38-7843tomycssctaIK Alexey Bradfordng Work Phone: [facility] Work Phone: Start: 06-18-2022 End: 52-40-3251Bvbyfml encounter procedureDO Alexey Furlong Work Phone: [facility] Ctr-XRyamila Mendez Ortho Start: 06-04-2022 End: 34-28-0978mfjauanaalUOFMHE RODRIGUEZ .Facility:Y4Twocq: 04-19-2022 End: 25-85-4560fewlgtcdocCM EVA POOLE .Facility:J4Alfnb: 03-23-2022 End: 86-78-2001cfpztjwbhnYW ERICK BERG .Facility:C1Wtvpg: 02-23-2022 End: 81-19-8839gxnwbagklrAG ALEXEY Garcia FURLONGFacility:O3Svjaf: 01-29-2022 End: 07-07-6005xlkrirxsvkUqqzxp Olexa Other [employer] Other Start: 32-50-5319Cpraqo outpatient visit 15 minutes Stevenson OlexaCARYNG [place] [facility]opedicsStart: 01-27-2022 End: 18-50-3128clvaaxqkrkES EMMA CAMPBELLFacility:F9Puxhb: 01-02-2022 End: 93-91-3344Vxxcpxf encounter procedureJosabino Hinojosa MD Work Phone: NeurologyComment on above:Lingual facial buccal dyskinesia (Primary Dx); Dyskinesia, tardive; Dyskinesia, orofacial; Excessive physiologic tremorStart: 12-27-2021 End: 93-52-6333zrtdvqjycqXM ALEXEY G FURLONGFacility:B3Psqsw: 12-06-2021 End: 39-27-9264iihzrlposmRjnlg Jabier Other [employer] Other Start: 57-81-3255Bsxopx outpatient visit 15 minutes Sena QadirFPG NephrologyStart: 12-04-2021 End: 66-84-5471hmjhnnmphrLuflpw Olexa Other noSparktrend Other Start: 22-10-2067Eqwpzl follow up visit related to original pxThomas OlexaFPG [place] [facility]opedicsStart: 12-04-2021 End: 89-49-6488Btjbzad encounter procedureMD Stevenson Fordxa Work Phone: [facility] Ctr-XRay [place] [facility] Start: 11-01-2021 End: 17-24-9862rpmfbtudstLjdzxr Olexa Other noSparkt[employer] Other Start: 36-10-5830Tliohlhop encounterThomas OlexaFPG [facility] CareStart: 10-26-2021 End: 96-65-7976icbdveagqaZzvljw Olexa Other noSp[employer] Other Start: 64-03-8483Ddlzhm follow up visit related to original pxThomas OlexaFPG [place] [facility]opedicsStart: 10-26-2021 End: 73-58-2147Zhysqwc encounter procedureMD Stevenson Olexa Work Phone: [facility] Ctr-XRay [facility] Start: 10-18-2021 End: 12-58-0853Fceiwqktv to same day surgery centerMD Stevenson Olexa Work Phone: [facility] CampusStart: 10-17-2021 End: 56-76-7580prvrexovedZeuibp Olexa Other [employer] Other Start: 59-85-3018Nihjhphrl encounterThomas OlexaFPG [place] [facility]opedicsStart: 10-13-2021 End: 77-44-9743Gamahea encounter procedureMD Stevenson Olexa Work Phone: [facility] Dfp-Mmg-Mqtmmjcy Testing Start: 10-09-2021 End: 40-00-8311Ogfgdvw encounter procedureMD Stevenson Olexa Work Phone: [facility] Uwa-Yfh-Ocnnwiio Testing Start: 03-90-6543Jcakmg consultation new/estab patient 60 minDennis G Furlong Work Phone: [phone]-Jnwhi [facility] [address] DO Work Phone: Start: 09-20-2021 End: 88-06-2725Qefsbxke ReferredMD Stevenson Corbin Work Phone: [facility] HospitalStart: 09-18-2021 End: 22-33-6085bssfirwdzgWkvpek Olexa Other [employer]Sp[employer] Other Start: 39-47-9766Ydxckjglt encounterThomas Suleiman Mendez OrthopedicsStart: 09-18-2021 End: 36-30-3877Smymixy encounter procedureMD Stevenson Corbin Work Phone: [facility]-Pre-Surgical Testing Start: 08-22-2021 End: 38-48-7679nbbyabfctpSV ALEXEY Garcia FURLONGFacility:I6Coafa: 07-12-2021 Telephone encounterJosabino Hinojosa MD Work Phone: NeurologyComment on above:Insurance Authorization Start: 06-29-2021 End: 74-50-4398ivfuzxankwVN ALEXEY Garcia FURLONGFacility:O5Rcgmj: 05-30-2021 End: 80-64-1338mxsipzfbrrTdboyp Olexa Other [employer] Other Start: 82-20-1906Thesbg outpatient new 30 minutes Stevenson Suleiman Mendez OrthopedicsStart: 03-22-2021 End: 09-36-4724nayrmbbvreGuxdp Elashi Other noYushino [employer] Other Start: 78-58-7642Twlxjl outpatient visit 15 minutes Essfrannie Kline NephrologyStart: 06-16-2020 End: 06-19-3737swwmwrdoumCJTUTGV OTTOFacility:[facility] FACILITYPatient encounter statusAlexey Connor Work Phone: [phone]-Rcbuk [facility] [address] DO Work Phone: Procedures DateProcedureProcedure DetailPerforming ClinicianStart: 08-08-7922Qrwul X-ray of right shoulderDennis Furlong DO Work Phone: Start: 05-61-7427P-ray of left knee, two viewsDennis Furlong DO Work Phone: Start: 25-68-8391S-ray of right knee, four viewsDennis Furlong DO Work Phone: Start: 62-95-8382Awnet X-ray of right shoulderDennis Furlong DO Work Phone: Start: 71-80-6513Ehbtm X-ray of right shoulderDennis Furlong DO Work Phone: Start: 51-72-8520Buxhs X-ray of left shoulderDO Alexey Furlong Work Phone: Start: 80-00-0435Ssuydbp microbial cultureDennis Furlong DO Work Phone: Start: 48-48-6525Gyovzewyb microbial cultureDennis Furlong DO Work Phone: Start: 90-34-7586Sjpd stain microscopyDennis Furlong DO Work Phone: Start: 81-42-5085Ixitdtxzxmumh of transfusion reaction DO Alexey Furlong Work Phone: Start: 61-96-7636QN Total Shoulder Reverse & Anatomic (Right)DO Alexey Furlong Work Phone: Start: 70-50-1083Xccglctf screenKevin MarineComment on above:Result Comment: PERFORMED BY: [facility] [place] [address] PATHOLOGIST POCKET FLAP CREASING MACHINE OPERATOR TAYA CRESPO M.D.Start: 88-03-5812SS of right shoulderDO Alexey Panelflylong Work Phone: Start: 07-22-4840Ithqiyubgjw resistant Staphylococcus aureus cultureDO Alexey Furlong Work Phone: Start: 13-94-6403Ldrsi X-ray of right shoulderDO Alexey Connor Work Phone: Start: 62-53-6034Ccpzd X-ray of right shoulderDO Alexey Connor Work Phone: Start: 38-02-3871Lcedz X-ray of right shoulderMD Stevenson Corbin Work Phone: Start: 28-38-9281Xxtlb X-ray of right shoulderMD Stevenson Fordxa Work Phone: Start: 22-62-5605Esxdg X-ray of right shoulderMD Stevenson Corbin Work Phone: Start: 08-33-2558Ufofrxdwfb total arthroplasty of right shoulderMD Stevenson Corbin Work Phone: Start: 40-46-8467HchpyehjyreWkpjfn Furlong DO Work Phone: Start: 65-88-5349Hoaxl depression screening assessment Tai Hinojosa MD Work Phone: Operation on rectumDennaun Connor Work Phone: Total colonoscopyAlexey Connor Work Phone: Plan of Treatment DateCare ActivityDetailAuthorStart: 71-12-7941ZOnT,Tdap and Td Vaccines (3 - Td or Tdap)DTaP,Tdap and Td Vaccines (3 - Td or Tdap)[facility] SystemStart: 60-28-1321Chrru microalbumin profileDTaP,Tdap,Td Vaccine (3 - Td or Tdap) [facility]tart: 26-95-4534Uinkbxkpm for malignant neoplasm of colon [facility] SystemStart: 76-10-0859OWE Vaccine (1 - 1-dose 75+ series)RSV Vaccine (1 - 1-dose 75+ series)[facility] Hospitaltart: 33-81-7049Zrlan BMI ScreeningAdult BMI ScreeningProAshtabula County Medical Center SystemStart: 94-73-6338Epunr BMI ScreeningAdult BMI ScreeningProAshtabula County Medical Center SystemStart: 45-44-2172Fbjwk BMI ScreeningAdult BMI ScreeningMiami Valley Hospital SystemStart: 84-90-9969Zhvep BMI ScreeningAdult BMI ScreeningProAshtabula County Medical Center SystemStart: 57-81-9636Qicvb BMI ScreeningAdult BMI ScreeningProAshtabula County Medical Center SystemStart: 16-11-9958Gwfum BMI ScreeningAdult BMI ScreeningProAshtabula County Medical Center SystemStart: 17-85-7276Dqqkyvdb ScreeningDiabetes ScreeningMonroeton ClinicStart: 05-05-2025 End: 05-58-9273Kloqjvs encounter uxyecwdjj60/21/2026 11:30 AM EST Office Visit [facility] [address] [place] [address] Dionicio Trevizo MD [address] [place] [address] [facility] ENDOCRINOLOGYStart: 75-56-9602Zjslr BMI ScreeningAdult BMI ScreeningMiami Valley Hospital SystemStart: 52-88-2179Ipval BMI ScreeningAdult BMI ScreeningMiami Valley Hospital SystemStart: 64-26-5880YMWUT-19 Vaccine ( season)COVID-19 Vaccine ( season)[facility] SystemStart: 91-24-8713Tneboblcz vaccinationMiami Valley Hospital SystemStart: 11-11-2024 End: 45-39-5179Lhtgidx encounter gsereekll13/30/2025 2:15 PM EDT Office Visit Neurology [address] [place] [address] Tai Hinojosa MD [address] [place], [place] [id number] Follow-upNeurologyComment on above:Follow-upStart: 11-04-2024 End: 56-72-4719Hmmbgnmasqt [Units/volume] in Serum or PlasmaTSH Lab Routine Acquired hypothyroidism Expected: 11/04/2024 (Approximate), Expires: 11/04/2025 [facility] HealthcareComment on above:Expected: 11/04/2024 (Approximate), Expires: 11/04/2025Start: 11-04-2024 End: 96-69-4198Psqhkbxsx (T4) free [Mass/volume] in Serum or PlasmaT4, free Lab Routine Acquired hypothyroidism Expected: 11/04/2024 (Approximate), Expires: 11/04/2025[facility] HealthcareComment on above:Expected: 11/04/2024 (Approximate), Expires: 11/04/2025Start: 11-04-2024 End: 69-77-4604Cbzwuktmsrhjrlyt (T3) Free [Mass/volume] in Serum or PlasmaT3, free Lab Routine Acquired hypothyroidism Expected: 11/04/2024 (Approximate), Expires: 11/04/2025[facility] Work Phone: Comment on above:Expected: 11/04/2024 (Approximate), Expires: 11/04/2025Start: 11-04-2024 End: 58-51-8928Lpeyegz encounter lichksfln70/23/2025 11:30 AM EDT Office Visit [facility] [address] [place] [address] Dionicio Trevizo MD [address] [place] [address] ArrivedNOSAINT JOSEPH [facility]PITAL WEST ENDOCRINOLOGYComment on above:Arrived Start: 74-34-9167Lijldxo ScreeningTobacco ScreeningProMedica Health SystemStart: 44-02-7464Xyiau X-ray of right shoulderXR shoulder RT min 2V*[facility]tart: 80-67-9653MY Shoulder - right ViewsNorwalk Memorial Hospitaltart: 46-80-1420V-ray of left knee, two viewsXR knee LT 2V [facility]tart: 41-36-3670H-ray of right knee, four viewsXR knee RT 4V*[facility] Hospitaltart: 11-41-6634ZB Knee - left 2 ViewsNorwalk Memorial Hospitaltart: 58-86-8018BA Knee - right 4 ViewsNorwalk Memorial Hospitaltart: 05-15-2024 End: 89-94-5675Dvppvtv encounter cssyjflvt65/31/2025 11:30 AM EST Office Visit Neurology [address] [place] [address] Tai Hinojosa MD [address] [place] [address] Return in about 6 months (around 05/14/2024).NeurologyComment on above:Return in about 6 months (around 05/14/2024).Start: 05-06-2024 End: 04-26-9529Mvwpwkppjgp [Units/volume] in Serum or PlasmaTSH Lab Routine Acquired hypothyroidism (CMS/HCC) Expected: 05/06/2024 (Approximate), Expires: 05/06/2025[facility] HealthcareComment on above:Expected: 05/06/2024 (Approximate), Expires: 05/06/2025Start: 05-06-2024 End: 87-67-8733Oebicvowj (T4) free [Mass/volume] in Serum or PlasmaT4, free Lab Routine Acquired hypothyroidism (CMS/HCC) Expected: 05/06/2024 (Approximate), Expires:05/06/2025[facility] HealthcareComment on above:Expected: 05/06/2024 (Approximate), Expires: 05/06/2025Start: 05-06-2024 End: 97-63-6950Gickjqbtpksekjsp (T3) Free [Mass/volume] in Serum or PlasmaT3, free Lab Routine Acquired hypothyroidism (CMS/HCC) Expected: 05/06/2024 (Approximate), Expires:05/06/2025[facility] Healthcare Work Phone: Comment on above:Expected: 05/06/2024 (Approximate), Expires: 05/06/2025Start: 05-06-2024 End: 58-36-1034Bevscbn encounter /22/2025 11:10 AM EST Office Visit [facility] [address] [place] [address] Dionicio Trevizo MD [address] [place] [address] ArrivedNOMS ENDOCRINOLOGYComment on above:Arrived Start: 22-04-7388Wafhlth Directive DiscussionAdvance Directive Discussion [facility]tart: 07-40-6371Mtphd X-ray of right shoulderXR shoulder RT min 2V*[facility] Hospitaltart: 99-10-2350KM Shoulder - right Views [facility] Hospitaltart: 94-99-1681WjpnqguxnNorwalk Memorial Hospitaltart: 24-70-1969Bmothspczkjjgv of prophylactic treatmentNorwalk Memorial Hospitaltart: 08-68-7498Abwicujr admissionNorwalk Memorial Hospitaltart: 74-43-4871Ceosuproq culture, body fluidNorwalk Memorial Hospitaltart: 03-67-3554GCBZ CultureMRSA CultureNorwalk Memorial Hospitaltart: 27-85-3643Dxqaz X-ray of right shoulderXR shoulder RT min 2V*[facility] Hospitaltart: 72-37-6384JQ Shoulder - right Views [facility]tart: 88-34-9308Jcdumlfyfgoj Vaccine: 50+ (3 of 3 - PCV20 or PCV21)Pneumococcal Vaccine: 50+ (3 of 3 - PCV20 or PCV21) [facility] Hospitaltart: 68-21-4170Cetpammorgei Vaccine: 65+ (3 of 3 - PPSV23 or PCV20)Pneumococcal Vaccine: 65+ (3 of 3 - PPSV23 or PCV20)[facility] Hospitaltart: 64-69-0455Nnpxkzgfuyam Vaccine: 65+ Years (3 of 3 - PCV20 or PCV21)Pneumococcal Vaccine: 65+ Years (3 of 3 - PCV20 or PCV21)[facility] HealthcareStart: 12-26-2023 Pneumococcal Vaccine: 65+ Years (3 of 3 - PPSV23 or PCV20)Pneumococcal Vaccine: 65+ Years (3 of 3 - PPSV23 or PCV20)[facility] HealthcareStart: 50-10-1879GLPUD-19 Vaccine ( season)COVID-19 Vaccine ( season)[facility] HospitalMerakiNorth Central Bronx Hospitaltart: 84-42-9131Ultpfkmps vaccinationShelby Memorial Hospitaltart: 46-85-6737Fsrgvry Directive DiscussionAdvance Directive DiscussionShelby Memorial Hospitaltart: 44-71-0438Ipmbysxfyw AssessmentDepression AssessmentShelby Memorial Hospitaltart: 21-09-7246Hdrvd-19 Vaccine ( season)Covid-19 Vaccine ( season)[facility]tart: 64-37-0272Umwnx-19 Vaccine ()Covid-19 Vaccine ()[facility]tart: 12-14-2022 Influenza vaccinationInfluenza Vaccine (#1)[facility]tart: 12-14-2021 Influenza vaccinationINFLUENZA (#1)[facility] Hospitaltart: 13-64-7688Jrogd X-ray of right shoulderXR shoulder RT min 2V*[facility] Hospitaltart: 12-04-2021 End: 30-96-7855Tpjuvbm encounter procedureDeparted ClinicalMercy Health [facility] Ctr-XRay [place] OrthoStart: 10-18-2021 End: 62-59-7558MscpkhgbfMercy Health [facility] Center Ctr Work Phone: Start: 86-53-8475Ryfnlkstco total arthroplasty of right shoulderOR Shoulder Arthroplasty-Total (Right)[facility] Hospitaltart: 50-65-5561Efrtv depression screening assessmentDEPRESSION SCREENING [facility] Hospitaltart: 44-13-7872TQRKYPP DIRECTIVE DISCUSSIONADVANCE DIRECTIVE DISCUSSIONShelby Memorial Hospitaltart: 81-03-3184DYWE DENSITYBONE DENSITYShelby Memorial Hospitaltart: 51-93-5214Iixx Risk ScreeningFall Risk ScreeningMiami Valley Hospital SystemStart: 27-90-5107KWDYWQDQJFMM: 65+ (1 - PCV)PNEUMOCOCCAL: 65+ (1 - PCV) [facility]tart: 02-89-7480Fribwyefw for osteoporosisBone Density ScreeningShelby Memorial Hospitaltart: 31-73-0532BKW Vaccine (1 - 1-dose 60+ series)RSV Vaccine (1 - 1-dose 60+ series)[facility] Hospitaltart: 82-96-9439GOATVOEO VACCINE (1 of 2)SHINGRIX VACCINE (1 of 2)[facility] Hospitaltart: 2000 COLOGUARD (FIT-DNA)COLOGUARD (FIT-DNA)[facility] Hospitaltart: 2000 ColonoscopyCOLONOSCOPYShelby Memorial Hospitaltart: 58-06-3429ROIJIEZRYE CANCER SCREENINGCOLORECTAL CANCER SCREENINGShelby Memorial Hospitaltart: 46-55-5283MU COLONOGRAPHYCT COLONOGRAPHYShelby Memorial Hospitaltart: 35-95-8466BJWQDWCF SCREEN DIABETES SCREENShelby Memorial Hospitaltart: 24-54-8610MLKHW OCCULT BLOODFECAL OCCULT BLOODShelby Memorial Hospitaltart: 84-56-4277Uvuxj panelLipid ScreeningLakehealth Beachwood Medical Center Start: 72-68-0672TYJAH SCREENLIPID SCREENShelby Memorial Hospitaltart: 2000 Screening for malignant neoplasm of colonShelby Memorial Hospitaltart: 2000 SIGMOIDOSCOPYSIGMOIDOSCOPYShelby Memorial Hospitaltart: 83-71-3884LymelkefluuEPVEMVMVR [facility]tart: 95-06-5286Qicuynbjs for malignant neoplasm of breast [facility] Hospitaltart: 22-43-7593Jinrp microalbumin profileDTAP,TDAP,TD (1 - Tdap)[facility] Hospitaltart: 65-52-2286Vpeoz BMI Follow Up PlanAdult BMI Follow Up PlanAtrium Health Mercytart: 11-66-3340Cnslfef ScreeningAnxiety ScreeningShelby Memorial Hospitaltart: 08-41-2871Tudpizkyed ScreeningDepression ScreeningShelby Memorial Hospitaltart: 67-65-8591ITFKASDQV C SCREENINGHEPATITIS C SCREENINGShelby Memorial Hospitaltart: 70-10-4795Vzlymazfv C screeningHepatitis C ScreeningShelby Memorial Hospitaltart: 75-51-3808Sqsocpuich ScreeningDepression ScreeningProSumma Health Wadsworth - Rittman Medical Centertart: 69-95-1899TVTEI-19 VACCINE (#1)COVID-19 VACCINE (#1)[facility] Hospitaltart: 02-11-1956Medicare Annual Wellness (AWV) Medicare Annual Wellness (AWV)[facility] HealthcareStart: 75-81-8961Ltxtcevjy for malignant neoplasm of colonNOMS HealthcareCT Shoulder - right WO contrast [facility] HospitalMethicillin resistant Staphylococcus aureus [Presence] in Unspecified specimen by Organism specificcultKettering Health SpringfieldPatient EducationKnow your [facility] Work Phone: [facility] Immunizations Immunization DateImmunizationNotesCare IiijigboWaalhbxn29-94-5102Ifgsh-32, Mrna, Lnp-s, Bivalent, Pf, 30mcg/0.3 mlDennis Furlong DO Work Phone: [facility] Hospital [facility] SouthwoodsFiuecv23-74-4675CMJXW-54, mRNA, LNP- S, PF, 100mcg/0.5mL DoseDennis Furlong DO Work Phone: [facility] SouthwoodsNhzmam34-44-3446Zeplll-CvkJBpxi COVID-19 Vacc 30 MCG/0.3ML Intramuscular SuspensionDennis [facility] Work Phone: [facility]09-28-2021Fluzone High-Dose Quadrivalent 0.7 ML Intramuscular Suspension Prefilled SyringeNorth Suburban Medical Center Work Phone: [facility] Medical CenterUtxynz82-96-4712oxxchfpcj virus vaccine, unspecified formulationLazainab [facility]arns White HospitalQkgtkl05-53-0119oaxufobiwk, tetanus toxoids and pertussis vaccineDenBeebe Medical Center Work Phone: [facility] CenterUroxyq78-26-5245Ohhwaq-WvcHYwap COVID-19 Vacc 30 MCG/0.3ML Intramuscular SuspensionCottage Children'S Hospitalng Work Phone: [facility]03-16-2021tetanus toxoid, reduced diphtheria toxoid, and acellular pertussis vaccine, adsorbed Alexey [facility] Work Phone: [facility]03-11-2021Pfizer- BioNTech COVID-19 Vacc 30 MCG/0.3ML Intramuscular SuspensionNorth Suburban Medical Center Work Phone: [facility]12-28-2020zoster vaccine recombinantLazainab Jinny White HospitalYfjqud02-54-6378acdlzqsvk, injectable, quadrivalent, preservative freeDennis G [place] Work Phone: [facility] CenterSlerwm85-35-3990rnhwtrqbj, seasonal, injectableLaura [facility]07-15-2020zoster vaccine recombinant Alexey G Furlong Work Phone: [facility] CenterVpnxuy21-48-1785wppgio vaccine recombinant Alexey G Furlong Work Phone: [facility] CenterCgzjtn65-72-1013iohfjsmmz, injectable, quadrivalent, preservative freeDennis G Furlong Work Phone: [facility] CenterFquevo76-74-0227dvhhrsmrpbqh conjugate vaccine, 13 valentDennis G Furlong Work Phone: [facility] CenterPjkexp51-92-1210pfbfcygon, injectable, quadrivalent, preservative freeDennis G Furlong Work Phone: [facility] CenterXmbkcn28-28-6058ccldjozuu virus vaccine, unspecified formulationDennis Furlong DO Work Phone: [facility] SouthwoodsZqzzmo41-12-6863tfxppdsca, injectable, quadrivalent, preservative freeDennis G Furlong Work Phone: [facility] CenterEqtrbq43-33-5899kjrfamnlh, seasonal, injectable, preservative freeDennis G Furlong Work Phone: [facility] Medical CenterKhsjna50-16-0911htcmusksyokj polysaccharide vaccine, 23 valentDennis G Furlong Work Phone: [facility] Medical CenterVcxcnf87-45-1964cqomog vaccine, liveDennis G Furlong Work Phone: [facility] Medical CenterNdhoyk96-86-3036uvcmvsdad, seasonal, injectable, preservative freeDennis G Furlong Work Phone: [facility] Medical CenterNEGATED: Highlighted row has not occurred!27-85-0708sgtdzvfuyyxi polysaccharide vaccine, 23 valentDennis Furlong DO Work Phone: [facility] Payers DatePayer CategoryPayerPolicy [id number]-rfc [id number] 2024Medicare [place] [address] [id number] 2023Medicare (Managed Care) [id number] [id number] [id number] 2021Medicare [id number] [id number]. [id number] [id number] [id number] 2.840.1.568761.3.57[id number] 2.840.1.362311.3.57[id number] 2.16.840.1.126415.3.57[id number] 2.16840.1.544943.3.57[id number] 2.16840.1.498245.3.57[id number] 2.16.840.1.637634.3.57[id number] 2.16.840.1.296402.3.57[id number] 2.16.840.1.009246.3.57[id number] 2.16.840.1.437325.3.57[id number] 2.840.1.379080.3.57[id number] 2.840.1.570363.3.57[id number] 2.840.1.950882.3.57[id number] 2.840.1.966910.3.57[id number] 2.840.1.587874.3.57[id number] 2.840.1.209171.3.57[id number] 2.16.840.1.376372.[id number] 2.16.840.1.8[id number] 2.16.840.1.298529.3.579.2.531 [id number] 2.16.840.1.2[id number] 2.16840.1.4[id number] 2.16.840.1.315182.3.579.2.531 [id number] 2.16.840.1.8[id number] 2.16.840.1.9[id number] 2.16.840.1.467182.3.579.2.531 Social History DateTypeDetailFacilityStart: 07-21-2018 End: 69-64-9806Epivx caffeine consumptionDaily caffeine consumptionLakehealth Beachwood Medical Center Work Phone: Comment on above:1-2 cups of coffee daily. Occas iced tea. Diet coke ocassional;Quit in ;Start: 07-21-2018 End: 40-50-9908Ohx Assigned At [facility] Work Phone: Start: 10-18-2021 End: 81-67-2499Effmefg smoking status NHISEx-smoker (finding)[facility]tart: 71-54-1410Ycd Assigned At [facility] Southtart: 04-15-1971 End: 98-74-7525Nwyxifp of tobacco useCurrent smokerShelby Memorial Hospitaltart: 04-15-1971 End: 13-99-4571Fsfyxqb of tobacco useCigarette SmokerShelby Memorial Hospitaltart: 07-21-2018 End: 13-86-7120Clkpymi use and exposureSmokeless tobacco non-userShelby Memorial Hospitaltart: 08-10-2020 End: 33-47-4384Aqkmmgq intakeLifetime non-drinker (finding)[facility] Start: 81-54-1488Cxhlfyu SDOH Alcohol Xbmqibzcb3Xpaftxszn ClinicStart: 12-09-8261Wrn Assigned At BirthNot on fileShelby Memorial Hospitaltart: 12-23-2021 End: 97-31-8399Gddjvpzz to SARS-CoV-2 (event)Not sureLakehealth Beachwood Medical CenterHistory of tobacco usePassive smokerLakehealth Beachwood Medical CenterHow often to you have a drink containing alcohol?NeverLakehealth [facility]wood [facility] Center Work Phone: Average Number of DrinksNot on [facility] Start: 11-18-2014 End: 19-40-7663ZtzOqxgsc (finding)[facility]: 50-95-7918Ufbzxpibj beverage intakeCurrent non-drinker of alcohol (finding) [facility]: 10-53-2474Fdlrhba CommentQuit in the S, STARTED AGE 18[facility] smoking status NHISTobacco smoking consumption unknownNOMS [facility] Medical Equipment Procedure CodeEquipment CodeEquipment Original TextEquipment IdentifierDates Arthroplasty, shoulder, totalTotal reverse shoulder prosthesis ()[id number])[id number](10)[id number] FDAStart: 38-88-4437Waffnhenfdvj, shoulder, totalTotal reverse shoulder prosthesis ()[id number])[id number](10)[id number] FDAStart: 03-32-4862Myobmnnttqpb, shoulder, totalTotal reverse shoulder prosthesis ()[id number](17)[id number](10)21.23032 FDAStart: 85-44-8953Vswcoxuuqngy, shoulder, totalTotal reverse shoulder prosthesis ()[id number](17)[id number](10)21.55050 FDAStart: 31-28-3016Wdtouxilltkv, shoulder, totalTotal reverse shoulder prosthesis ()[id number](17)[id number](10)21.54817 FDAStart: 49-44-8442Cgulmetmxphf, shoulder, totalTotal reverse shoulder prosthesis ()[id number])[id number](10)[id number] FDAStart: 79-56-2637Kmxbqkbxjfrw, shoulder, totalTotal reverse shoulder prosthesis ()[id number](17)[id number](10)[id number] FDAStart: 04-56-3575Slnzdnzrvggg, shoulder, totalTotal reverse shoulder prosthesis ()[id number](17)[id number](10)[id number] FDAStart: 02-13-8467Lmopywhnezky, shoulder, totalTotal reverse shoulder prosthesis ()[id number](17)859129(10)[id number] FDAStart: 15-50-7293Apocqpdsbzvt, shoulder, totalTotal reverse shoulder prosthesis ()[id number](17)[id number](10)[id number] FDAStart: 15-75-9393Krvgg reverse shoulder prosthesis()[id number](17)[id number](10)[id number] FDAStart: 02-12-2024 Total reverse shoulder prosthesis(01)[id number](17)586516(10)22.07193 FDA Start: 63-09-0193Snmgn reverse shoulder prosthesis ()[id number](17)583473(10)23.54333 FDAStart: 48-83-5548Ihbl Pco Vntrl Ptch 4.6cm Rpl [id number] - [facility] - [id number]_drbTqxsj: 01-29-2020 Goals DatePatient GoalDesired Activity/StatePersonal health goalComment on above: Evaluation of progress towards goal: will DC from ED to SNF upon arrangements Personal health goalComment on above: Evaluation of progress towards goal: return to [facility] Functional Status XzunUjrbbycmvzTehrazMmzkqirx74-69-2194Nxajjutoke statusPatient Not at Baseline [facility] Work Phone: Mental Status AczrMluzzzjilnJdodxeAoeuidgv53-48-9737Qtjrrsnne functionCognitive Status Patient Not at BaselineAcmc Healthcare System Work Phone: Clinical Notes 03-22-2021 to 01-22-2025 Note Date & [id number] NoteBellevue Office Cardiology Clinic Note Reason for [...] she underwent Lexiscan nuclear stress test at [facility] which did not show definite perfusion [...] states that her blood pressure at the fdc go sometimes up to 200s and sometimes it send normal in the 130s. She used to smoke half pack per day for about 10 years however she quit in the . Regarding family history her father secondary to [place] at age 74 and her mother secondary to stroke in her 70s. ROS: All systems were reviewed and they were negative except for the positive findings noted above in the history Past Medical History She has a past medical history of Anemia, Anxiety, Arthritis, Chronic kidney disease, Closed fracture of neck of femur (CMS/HCC) (06/16/2020), COVID-19 (07/04/2023), Dysphagia, Epilepsy ([facility]), GERD (gastroesophageal reflux disease), Hyperlipidemia, Hypertension, Major [...] mouth every 6 (si (more content not included)...[facility]09-23-2025 History of Present illness Narrative* Alexey Connor, DO - 01/05/2025 11:59 PM EDT Patient Name: Melanie Espinoza Date of : 1955 Date of Service: 01/05/2025 [place] [facility] [place] of Visit: Subsequent Visit Subjective Melanie Espinoza is a 69 y.o. female [facility] for problem and monthly visit. Melanie was having right knee pain and so I was contacted about it and we started Biofreeze. She reports that it is doing much better with Biofreeze. It has really helped . She had labs done a few days ago by the twist packer and they looked pretty good. She has [...] wants. Allergies: Erythromycin and Clarithromycin Code Status: [facility] BP 102/56 Pulse 61 Temp 36.6 C [...] BY: Alexey Connor DO documented in this encounterThe Surgical Hospital at Southwoods08-22-2025 History of Present illness Narrative* Alexey Connor DO - 12/04/2024 11:59 PM EDT Patient Name: Melanie Espinoza Date of : 1955 Date of Service: 12/04/2024 Facility: [facility] Type of Visit: Subsequent Visit Subjective Melanie Espinoza is a 69 y.o. female seen today at jail facility for monthly visit. Melanie fell recently but didn't get hurt. She was trying to get up to go to the bathroom. She feels her movements are better. Her hand is better. Allergies: Erythromycin and Clarithromycin Code Status: [facility] BP 104/64 Pulse 62 Temp 36.6 C [...] are medically necessary. ELECTRONICALLY SIGNED BY: Alexey Connor DO documented in this encounterThe Surgical Hospital at Southwoods07-23-2025 History of Present illness Narrative* Dionicio Trevizo MD - 11/04/2024 11:30 AM EDT Melanie Espinoza is a 69 y.o. female No ref. provider found presents with chief complaint of Thyroid Problem and Follow-up HPI: Interim History: 10/2024 Follow-up visit of 11/04/2024 for hypothyroidism. on levothyroxine mcg daily, [place] TSH 3.6, free T4 0.84 ( 0.6-1.6), free T3 2.1 ( 1.58-3.91) Interim History: 04/2024 Follow-up visit of 05/06/2024 for hypothyroidism. on levothyroxine mcg daily, [place] Interim History: 10/2023 Follow-up visit of 10/23/2023 for hypothyroidism. on levothyroxine 100 mcg daily by ER team on PCP ?, [place] lab on 09/2023 TSH 1.85, FT4 0.93, T3 0.65 (0.8-1.8) Interim History: 09/2022. Follow-up visit of 09/28/2022 for hypothyroidism. on levothyroxine 75 mcg daily, [place] Interim History: 09/2021. Follow-up visit of 10/06/2021 for hypothyroidism. on levothyroxine 75 mcg daily, [place] , no new lab Interim History: 04/2021. Follow-up visit of 04/24/2020 for hypothyroidism. T3 0.75 (0.6-1.8) free T4 0.86(0.78- 1.48), and TSH 1.356. on levothyroxine 75 mcg daily, [place] Interim History: 04/2020. Follow-up visit of for [...] 6 months (around 05/07/2025). documented in this encounterEllett Memorial HospitalGpfgvjjbxt53-59-4052 History of Present illness Narrative* Alexey Connor, DO - 10/30/2024 11:59 PM EDT Patient Name: Melanie Espinoza Date of : 1955 Date of Service: 10/30/2024 [place]: [facility] Type of Visit: Acute Visit Subjective Melanie Espinoza is a 69 y.o. female seen today at jail facility for problem and monthly visit. Melanie was wheeling herself in the hallway and uses the door frames to pull herself along and had her hand in a doorframe and the door was closed on the 3rd and 4th digits of her left hand. An x-ray showed zcak fractures. There was no nailbed injury or open areas. A splint was placed. It is painfuland she is taking tylenol and it is effective for her. Allergies: Erythromycin and Clarithromycin Code [facility]: [facility] 110/64 Pulse 59 Temp 36.7 C (98.1 F) Resp 20 Wt 45.5 kg (100 lb 3.2 oz) SpO2 97% BMI17.75 kg/m Physical Exam Vitals reviewed. HENT: Head: Normocephalic. Cardiovascular: Rate and Rhythm: Normal rate and regular rhythm. Pulses: Normal pulses. Heart sounds: Normal heart sounds. No murmur heard. Pulmonary: Effort: Pulmonary effort is normal. No respiratory distress. Breath sounds: Normal breath sounds. No wheezing or rhonchi. Musculoskeletal: Left hand: Swelling, tenderness and bony tenderness present. No deformity or lacerations. Decreasedrange of motion. Comments: 3rd and 4th distal [...] are medically necessary. ELECTRONICALLY SIGNED BY: Alexey Connor DO documented in this encounterThe Surgical Hospital at Southwoods06-27-2025 History of Present illness Narrative* Alexey Connor DO - 10/09/2024 11:59 PM EDT Patient Name: Melanie Espinoza Date of : 1955 Date of Service: 10/09/2024 [place]: [facility] Type of Visit: Subsequent Visit Subjective Melanie Espinoza is a 69 y.o. female seen today at jail facility for monthly visit. No new problems reported by staff or patient. Psych nurse is managing her psychiatric issues and they are going to cut back on her anxiety medication and increase her Austedo. Allergies: Erythromycin and Clarithromycin Code Status: [facility] BP 107/60 Pulse 54 Temp 36.6 C [...] are medically necessary. ELECTRONICALLY SIGNED BY: Alexey Connor DO documented in this encounterThe Surgical Hospital at Southwoods06-27-2025 History of Present illness Narrative* Alexey Connor DO - 10/09/2024 11:59 PM EDT Patient Name: Melanie Espinoza Date of : 1955 Date of Service: 10/09/2024 Facility: [facility] Type of Visit: Subsequent Visit Subjective Melanie Espinoza is a 69 y.o. female seen today at jail facility for monthly visit. Patient reports that the psych nurse is cutting back on anxiety meds and increase Austedo. She has no new problems to report. Allergies: Erythromycin and Clarithromycin Code Status: [facility] BP 107/60 Pulse 54 Temp 36.6 C [...] are medically necessary. ELECTRONICALLY SIGNED BY: Alexey Connor DO documented in this encounterThe Surgical Hospital at Southwoods05-30-2025 History of Present illness Narrative* Alexey Connor DO - 09/11/2024 11:59 PM EDT Patient Name: Melanie Espinoza Date of : 1955 Date of Service: 09/11/2024 Facility: [facility] Type of Visit: Subsequent Visit Subjective Melanie Espinoza is a 69 y.o. female seen today at jail facility for regular visit. No new problems reported by staff or patient. She cut back on caffeine and her movement disorder isbetter. She is also back on Austedo. Allergies: Erythromycin and Clarithromycin Code Status: [facility] BP 130/68 Pulse 72 Temp 36.7 C (98.1 F) Resp 17 Wt 45.6 kg (100 lb 9.6 oz) SpO2 97% BMI17.82 kg/m Physical Exam Vitals reviewed. Exam conducted with a manufacturing chief engineer present (Moi Espinoza [place] 3). Constitutional: General: [...] are medically necessary. ELECTRONICALLY SIGNED BY: Alexey Connor DO documented in this encounterAkron Children's Hospitalidiag Hawthorn CenterZmrtls83-24-9855 NoteBellevue Office Cardiology Clinic Note Reason for [...] [facility] definite [facility] defect [...] states that her blood pressure at the fdc go sometimes up to 200s and sometimes it send normal in the 130s. She used to smoke half pack per day for about 10 years however she quit in the . Regarding family history her father secondary to [place] at age 74 and her mother secondary to stroke in her 70s. ROS: All systems were reviewed and they were negative except for the positive findings noted above in the history Past Medical History She has a past medical history of Anemia, Anxiety, Arthritis, Chronic kidney disease, Closed fracture of neck of femur ([facility]) (06/16/2020), COVID-19 (07/04/2023), Dysphagia, Epilepsy ([facility]), GERD (gastroesophageal reflux disease), Hyperlipidemia, Hypertension, Major depressive disorder, Osteoarthritis, Peripheral vascular disease, Rectal prolapse, Rhabdomyolysis (07/04/2023), Sepsis ([facility]) (07/04/2023), Tardive dyskinesia, and Tremor. Surgical History [...] or chew. (Patient ta (more content not included)...[facility]04-23-2025 History of Present illness Narrative* Alexey Connor, - 08/05/2024 4:40 PM EDT Patient Name: Melanie Espinoza Date of : 1955 Date of Service: 08/05/2024 Facility: [facility] Type of Visit: Subsequent Visit Subjective Melanie Espinoza is a 69 y.o. female seen today at jail facility for regular visit. No new problems reported by staff or patient. Her movements seem to be improved with starting Austedo XR. She has an appointment coming up with the twist packer in a couple weeks. Allergies: Erythromycin and Clarithromycin Code Status: [facility] BP 118/66 Pulse 90 Temp 36.6 C (97.9 F) Resp 18 Wt 45.9 kg (101 lb 3.2 oz) SpO2 96% BMI17.93 kg/m Physical Exam Vitals reviewed. Exam conducted with a manufacturing chief engineer present (Julio Cesar Tim MS 3). Constitutional: [...] are medically necessary. ELECTRONICALLY SIGNED BY: Alexey Connor DO documented in this encounterThe Surgical Hospital at Southwoods03-20-2025 History of Present illness Narrative* Alexey Connor DO - 07/02/2024 6:10 PM EDT Patient Name: Melanie Espinoza Date of : 1955 Date of Service: 07/02/2024 Facility: [facility] Type of Visit: Subsequent Visit Subjective Melanie Espinoza is a 69 y.o. female seen today at jail facility for regular visit. Melanie had labs [...] report. Allergies: Erythromycin and Clarithromycin Code Status: [facility] Physical Exam Vitals reviewed. Constitutional: General: She [...] 7. SIADH (syndrome of inappropriate ADH production) ([facility]) F/U with ortho. May need right TKA. Decrease Fe+ 325mg supplement to once a day as she is no longer anemic. Stay on fluid restriction since Na+ is still low. Lipids at goal-continue atorvastatin 40mg. Continue austedo. All medications reviewed and are medically necessary. ELECTRONICALLY SIGNED BY: Alxeey Connor DO documented in this encounterThe Surgical Hospital at Southwoods03-13-2025 NoteOrthopedic Surgery Subjective Chief complaint: Chief Complaint [...] disease Closed fracture of neck of femur ([facility]) 06/16/2020 COVID-19 07/04/2023 Dysphagia Epilepsy ([facility]) GERD (gastroesophageal reflux disease) Hyperlipidemia Hypertension Major depressive disorder Osteoarthritis Peripheral vascular disease Rectal prolapse Rhabdomyolysis 07/04/2023 Sepsis ([facility]) 07/04/2023 Tardive dyskinesia Tremor Objective Left Hip: [...] saw this patient on (more content not included)...[facility]02-17-2025 Evaluation note* Diagnosis Onset Date Resolution Status Admit Date History of reverse total replacement of right shoulder joint acuteFebruary 2024 11:40amHistory of revision of total shoulder arthroplastyacuteFebruary 2024 11:40amOther mechanical complication of other internal orthopedic devices, implantacuteFebruary 2024 11:40amRight knee painacuteFebruary 2024 11:40am [facility] Work Phone: 1(408) 400-294802-17-2025 Evaluation note* Diagnosis Onset Date Resolution Status Admit Date History of reverse total replacement of right shoulder joint acuteFebruary 2024 11:40amHistory of revision of total shoulder arthroplastyacuteFebruary 2024 11:40amOther mechanical complication of other internal orthopedic devices, implantacuteFebruary 2024 11:40amRight knee painacuteFebruary 2024 11:40amArthritis of right kneeacuteMarch 2024 1:32pm [facility] Work Phone: 1(154) 122-917302-17-2025 Evaluation note* Diagnosis Onset Date Resolution Status Admit Date History of reverse total replacement of right shoulder joint acuteFebruary 2024 11:40amHistory of revision of total shoulder arthroplastyacuteFebruary 2024 11:40amOther mechanical complication of other internal orthopedic devices, implantacuteFebruary 2024 11:40amRight knee painacuteFebruary 2024 11:40amArthritis of right kneeacuteMarch 2024 1:32pmArthritis of right kneeacuteApril 2024 8:30am [facility] Work Phone: 1(900) 821-547102-17-2025 Evaluation note* Diagnosis Onset Date Resolution Status Admit Date History of reverse total replacement of right shoulder joint acuteFebruary 2024 11:40amHistory of revision of total shoulder arthroplastyacuteFebruary 2024 11:40amOther mechanical complication of other internal orthopedic devices, implantacuteFebruary 2024 11:40amRight knee painacuteFebruary 2024 11:40amArthritis of right kneeacuteMarch 2024 1:32pmArthritis of right kneeacuteApril 2024 8:30amHistory of reverse total replacement of right shoulder jointacuteApril 2024 11:19amHistory of revision of total shoulder arthroplastyacuteApril 2024 11:19amOther mechanical complication of other internal orthopedic devices, implantacuteApril 2024 11:19am [facility] Work Phone: 1(828) 887-916902-12-2025 History of Present illness Narrative* Alexey Jose Christ, DO - 05/27/2024 11:59 PM EST Patient Name: Melanie Espinoza Date of : 1955 Date of Service: 05/27/2024 Facility: [facility] Type of Visit: Acute Visit Subjective Melanie Espinoza is a 69 y.o. female seen today at jail facility for therapy visit. Melanie asked see me because of her fluid restriction. She would like to have it raised. Staff reports that she frequently sneaks fluids various ways. She denies new problems. She has follow up with ortho for her reverse shoulder replacement. Allergies: Erythromycin and Clarithromycin Code Status: [facility] BP 127/86 Pulse 71 Temp (!) 35.8 C (96.4 F) Physical Exam Vitals reviewed. Exam conducted with a manufacturing chief engineer present (Cole Amador MS 3). Constitutional: General: [...] are medically necessary. ELECTRONICALLY SIGNED BY: Alexey Connor DO documented in this encounterThe Surgical Hospital at Southwoods01-22-2025 History of Present illness Narrative* Dionicio Trevizo MD - 05/06/2024 11:10 AM EST Melanie Espinoza is a 68 y.o. female Dionicio Trevizo MD presents with chief complaint of Thyroid Problem and Follow-up HPI: Interim History: 04/2024 Follow-up visit of 05/06/2024 for hypothyroidism. on levothyroxine mcg daily, [place] Interim History: 10/2023 Follow-up visit of 10/23/2023 for hypothyroidism. on levothyroxine 100 mcg daily by ER team on PCP ?, [place] lab on 09/2023 TSH 1.85, FT4 0.93, T3 0.65 (0.8-1.8) Interim History: 09/2022. Follow-up visit of 09/28/2022 for hypothyroidism. on levothyroxine 75 mcg daily, [place] Interim History: 09/2021. Follow-up visit of 10/06/2021 for hypothyroidism. on levothyroxine 75 mcg daily, [place] , no new lab Interim History: 04/2021. Follow-up visit of 04/24/2020 for hypothyroidism. T3 0.75 (0.6-1.8) free T4 0.86(0.78- 1.48), and TSH 1.356. on levothyroxine 75 mcg daily, [place] Interim History: 04/2020. Follow-up visit of for [...] No follow-ups on file. documented in this encounterEllett Memorial [id number] History of Present illness Narrative* Alexey Connor, - 04/17/2024 3:57 PM EST Patient Name: Melanie Espinoza Date of : 1955 Date of Service: 04/17/2024 Facility: [facility] Type of Visit: Subsequent Visit Subjective Melanie Espinoza is a 68 y.o. female seen today at jail facility for monthly visit and per pt [...] yet. Allergies: Erythromycin and Clarithromycin Code Status: [facility] BP (!) 143/104 Pulse 75 Physical [...] are medically necessary. ELECTRONICALLY SIGNED BY: Alexey Connor DO documented in this encounterThe Surgical Hospital at Southwoods12-18-2024 History of Present illness Narrative* Alexey Connor DO - 04/01/2024 11:59 PM EST Patient Name: Melanie Espinoza Date of : 1955 Date of Service: 04/01/2024 Facility: [facility] Type of Visit: Skilled Visit Subjective Melanie Espinoza is a 68 y.o. female seen today at jail facility for therapy visit. Melanie is participating [...] controlled. Allergies: Erythromycin and Clarithromycin Code Status: [facility] BP 159/85 Pulse 82 Temp 36.8 [...] are medically necessary. ELECTRONICALLY SIGNED BY: Alexey Connor DO documented in this encounterThe Surgical Hospital at Southwoods12-17-2024 Evaluation note* Diagnosis Onset Date Resolution Status Admit Date History of reverse total replacement of right shoulder joint acuteDecember 2023 11:51amHistory of revision of total shoulder arthroplastyacuteDecereunion [facility] 2023 11:51amOther mechanical complication of other internal orthopedic devices, implantacuteDecember 2023 11:51amRight knee painacuteDecember 2023 11:51amHistory of reverse total replacement of right shoulder jointacuteFebruary 2024 11:40amHistory of revision of total shoulder arthroplastyacuteFebruary 2024 11:40amOther mechanical complication of other internal orthopedic devices, implantacuteFebruary 2024 11:40amRight knee painacuteFebruary 2024 11:40am [facility] Work Phone: 1(116) 699-652510-31-2024 Progress note Author Nickolas Hawthorne [facility] February 13, 2024 8:15amNote Date/TimeOct2023 8:15[place] [id number] Orthopedic Progress Note Signed Patient: Melanie Espinoza MR#: [id number] : 1955 Acct:[id number] Age/Sex: 68 / F Adm Date: 4 Loc: 4N Room: [address] [place] [address] Type: REG SDC Attending Dr: Nickolas Hawthorne [...] % (Auto) 73.7 Lymph % (Auto) 14.6 [place] % (Auto) 8.7 Eos % (Auto) 2.1 Baso % (Auto) 0.9 Nucleat RBC Rel Count 0.1 Neut # (Auto) 4.8 Lymph # (Auto) 0.9 L [place] # (Auto) 0.6 Eos # (Auto) 0.1 [...] A Synov Supernatant Color Red Synovial RBC 698028 H Synovial Tot Nuc Cell 78751 H Synovial Neutrophils 12 Synovial Eosinophils 0 [...] well with no indications of infection. Patient islow demand and I believe she will do [...] signed by Nickolas Hawthorne DO> 02/13/24 0815 [facility] Work Phone: 1(426) 662-899510-10-2024 Evaluation note* Diagnosis Onset Date Resolution Status Admit Date History of reverse total replacement of right shoulder joint acuteOctober 2023 9:23amOther mechanical complication of other internal orthopedic devices, implantacuteOctober 2023 9:23amHistory of revision of total shoulder arthroplastyacuteOctober 2023 11:55amHistory of reverse total replacement of right shoulder jointacuteNovember 2023 9:13amHistory of revision of total shoulder arthroplastyacuteNovember 2023 9:13amOther mechanical complication of other internal orthopedic devices, implantacute November 2023 9:13am [facility] Work Phone: 1(483) 963-984009-13-2024 Telephone encounter Note* Telephone Encounter - Lynnette Ortiz RN - 12/27/2023 2:12 PM EDT Rx's faxed Spoke with private secretary at [facility]. Azara is not in today Will relay the message from me Martin Ortiz RN ext [phone] [facility]09-13-2024 Miscellaneous Notes* Telephone Encounter - Lynnette Ortiz RN - 12/27/2023 2:12 PM EDT Rx's faxed Spoke with private secretary at [facility]. Azara is not in today Will relay [...] or not Caller can be reached at [phone] * Telephone Encounter - Arnold Hall RN - 12/26/2023 10:36 AM EDT Spoke to Destiney at [facility]. Pt using inpatient pharmacy and her insurance changed, states Austedo is $7800/month, and Pt cannotafford, has not had medication in 3 days. Pharmacist recommended alternatives below, Destiney states Pt can afford either option, looking for whatever would be the best alternative. -Amantadine 100mg BID ($18/month) -Tetrabenazine 25mg BID ($1300/month) Please fax new script to [phone] Forwarded to Provider to review. * Telephone Encounter - Radha Tilley - 12/26/2023 10:27 AM EDT Destiney at [facility] calling again, says patient is out of medication... requesting alternative medication * Telephone Encounter - Esperanza Larios - 12/25/2023 4:33 PM EDT Destiney calling to ask since pt insurance changed is there a alternative to Austedo that the pt canbe giving. Please call her at [phone] documented in this encounterLakehealth Beachwood Medical Center09-13-2024 [...] or not Caller can be reached at [phone] [facility]09-12-2024 Telephone encounter Note* Telephone Encounter - Arnold Hall, RN - 12/26/2023 10:36 AM EDT Spoke to Destiney at [facility]. Pt using inpatient pharmacy and her insurance changed, states Austedo is $7800/month, and Pt cannotafford, has not had medication in 3 days. Pharmacist recommended alternatives below, Destiney states Pt can afford either option, looking for whatever would be the best alternative. -Amantadine 100mg BID ($18/month) -Tetrabenazine 25mg BID ($1300/month) Please fax new script to [phone] Forwarded to Provider to review. [facility]09-12-2024 Telephone encounter Note* Telephone Encounter - Radha Tilley - 12/26/2023 10:27 AM EDT Destiney at [facility] calling again, says patient is out of medication... requesting alternative medication [facility]09-11-2024 Telephone encounter Note* Telephone Encounter - Esperanza Larios - 12/25/2023 4:33 PM EDT Destiney calling to ask since pt insurance changed is there a alternative to Austedo that the pt canbe giving. Please call her at [phone] [facility]07-30-2024 NoteHNO ID: [id number] Author: TAI HINOJOSA MD Service: ? Author Type: Physician Type: Progress Notes Filed: 11/12/2023 11:37 Note Text: November 12, 2023 Tai Hinojosa MD [address] / [address] [address] Esteban Garza MD ([facility]) [address] [place] [address] Melanie Espinoza : 1955 Interval History: Melanie [...] Nerves: audible voice volu (more content not included)...[facility]07-30-2024 History of Present illness Narrative* Tai Hinojosa MD - 11/12/2023 11:19 AM EDT November 12, 2023 Tai Hinojosa MD [address] / [address] [address] Esteban Garza MD ([facility]) [address] [place] [id number] Melanie Espinoza : 1955 Interval History: Melanie [...] on the day of service, which included maey-vc-uwis patient care, completing clinical documentation, obtaining and/or reviewing separately obtained history, performing a medically appropriate examination, counseling and educating the patient/family/caregiver, and ordering medications, tests, or procedures. Thank you for including me in the care of this interesting patient. Tai Hinojosa MD Staff Neurologist [facility] Cc: documented in this encounterL[facility]03-[facility] History of Present illness Narrative* No Stearns RN - 06/28/2023 9:59 AM EDT ACM MOHINDER RN Reason for review or outreach: Medication Adherence review per request of payer Medication Adherence Review Details: Cholesterol FYI / ACTION REQUEST: Patient identified by name and date of Summary/Findings of review: Patient is seeing [facility] PCP at [facility] Medicine Patient Attributed To: QAE Payer: [facility] Action Taken: Data submitted to Payer Other Contact made with patient: No, Chart review only. Signature: No Stearns RN documented in this encounterL[facility]03-06-2023 Evaluation note* Encounter Date Diagnosis Assessment Notes Treatment Notes Treatment Clinical Notes Jun, Tear of right rotato r cuff, unspecified tear extent, unspecified whether traumatic (ICD-10 - M75.101) Jun,rthritis of right glenohumeral joint (ICD-10 - M19.011)Xrays were reivewed with patient in detail. Patient is progressing well from surgery. We discussed the importance of continuing motion and strength exercise. 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 She is progressing well from surgery. Instructed on continued motion and strengthening exercises, these were demonstrated. Call with questions/concerns. [facility] Other 09-20-2022 Instructions* Patient Instructions* Tai Hinojosa MD - 01/02/2022 9:43 AM EDT 1) Double the dose of Austedo to 12 mg twice a day for 1 month, then increase further to 18 mg 2) continue clonazepam and methocarbamol 3) continue primidone for the action tremor documented in this encounterL[facility]09-20-2022 History of Present illness Narrative* Tai Hinojsoa MD - 01/02/2022 9:25 AM EDT January 02, 2022 Tai Hinojosa MD [address] / [place] [id number] Esteban Garza MD ([facility]) [address] [place] [address] Melanie Espinoza : 1955 Interval History: Melanie [...] on the day of service, which included zror-md-hluh patient care, completing clinical documentation, obtaining and/or reviewing separately obtained history, performing a medically appropriate examination, counseling and educating the patient/family/caregiver, and ordering medications, tests, or procedures. Thank you for including me in the care of this interesting patient. 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 Her sodium is within normal limit. Continue fluid restriction. Nov,HTN (hypertension) (ICD-10 - I10)Blood pressure is high today but usually well controlled at the [facility]. Continue current medications. Nov,Hydronephrosis (ICD-10 - N13.30)She reported that she was seen by neurologist and had extensive work-up done. She was advised intervention needed. Nov,yslipidemia (ICD-10 - E78.5)Continue statins. Continue follow with PCP for LFTs and lipid profile monitoring. [facility] Other [id number] Evaluation note* Encounter Date Diagnosis Assessment Notes Treatment Notes Treatment Clinical Notes Nov, Tear of right rotato r cuff, unspecified tear extent, unspecified whether traumatic (ICD-10 - M75.101) Xrays were reviewed with patient in detail Patient instructed on discontinuing the sling. Begin gentle acitve assisted motion exercise including table and wall walks. This was demonstrated. Instructed on progression of motion exercise in flexion, internal rotation and external rotation. Instructed on use of heat to help with motion. 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 Instructed on gentle motion exercises including table and wall walks. Cautioned patient to avoid strenuous PT exercises, should be doing exercises on her own. Call with questions/concerns. [facility] Other 07-05-2022 Evaluation note* Encounter Date Diagnosis Assessment Notes Treatment Notes Treatment Clinical Notes Oct, 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 (ICD- 10 - Z98.890) [facility] 06-06-2022 Evaluation note* Encounter Date Diagnosis Assessment Notes Treatment Notes Treatment Clinical Notes Sep, Status post reverse total arthroplasty of right shoulder (ICD-10 - Z96.611) [facility] 03-30-2022 Miscellaneous Notes* Telephone Encounter - [...] 07/12/2021 12:53 PM EDT Donita calling from [facility] States the pt received a letter from insurance company that medication Austedo 6 mg was denied. Will need prior authorization. Can you please assist with PA. [facility] requesting that once PA approved to fax to them at [phone]. Thanks. * Telephone Encounter - Kailey Andrews [...] Electronically authenticated by: CM RAMIREZ Date: 2021-06-29 14:37[place]02-15-2022 Evaluation note* Encounter Date Diagnosis Assessment Notes Treatment Notes Treatment Clinical Notes May, Arthritis of right glenohumeral joint (ICD-10 - M19.011) This is pain secondary to glenohumeral arthritis and rotator cuff tear. We discussed the importanceof maintaining shoulder motion and demonstrated motion exercise in flexion, internal and external rotation. We discussed the use of non-steroidal anti-inflammatory medication. Discussed limiting strenuous use of the shoulder which will aggravate symptoms. Discussed that occasional intra- articular cortisone injection may be helpful. Discussed surgical treatment options including arthroscopy and arthroplasty replacement options. A marcaine / kenalog cortisone injection was performed into the subacromial space under sterile technique. Patient tolerated the injection well with no adverse reaction. May,Tear of right rotator cuff, unspecified tear extent, unspecified whether traumatic (ICD-10 - M75.101) May,cute pain of right shoulder (ICD-10 - M25.511) [facility] 12-08-2021 Evaluation note* Encounter Date Diagnosis [...] 4 to 6 months or as indicated. Mar,Hypertension (ICD-10 - I10) Blood pressure has markedly improved after increasing amlodipine to 10 mg daily. She used to be on furosemide that was stopped as patient has weight loss with no edema. She still on water restriction. Mar,Hydronephrosis (ICD-10 - N13.30) Patient was incidentally found to have left hydronephrosis possibly insignificant as she has normalrenal function. She has normal renal function. She follow-up with urology as outpatient. Mar,nemia (ICD-10 - D64.9) Patient has anemia of unclear reason. She has weight loss and possible multivitamins and iron deficiency. We will recheck CBC, iron stores, B12 and folic acid with next blood work. Mar,Weight loss (ICD-10 - R63.4) She has unexplained weight loss currently down to 95 kg. She denies any diarrhea. Patient stated that she has an appointment with crab steamer to check her thyroid. She follow-up with her family doctor as well. 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, tardive Subacute 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 [facility] Diagnosis Onset Date Resolution Status History of reverse total replacement of right shoulder joint [id number] [facility] Work Phone: Evaluation note* Diagnosis Onset Date Resolution Status History of reverse total replacement of right shoulder joint [id number] of revision of total shoulder arthroplastyacute [facility] Work Phone: Evaluation note* Diagnosis Aftercare following right shoulder joint replacement surgery- Primary Witnessed apneic spells Movement 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 [facility] Diagnosis Primary hypertension- Primary Unspecified essential hypertension SIADH (syndrome of inappropriate ADH production) ([facility]) Other disorders of neurohypophysis Sleep disorder breathing Other sleep disturbances [facility]* Diagnosis Acquired hypothyroidism (CMS/HCC)- Primary Unspecified hypothyroidism Movement 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 documented [facility] encounter [facility]* Diagnosis SIADH (syndrome of inappropriate ADH production) (CMS-HCC)- Primary Other disorders of neurohypophysis Hyperlipidemia, unspecified hyperlipidemia type Iron deficiency anemia, unspecified iron deficiency anemia type Hypo-osmolality and hyponatremia Hypocalcemia Hypokalemia Hypopotassemia documented [facility] this [facility]* Diagnosis Primary hypertension- Primary Unspecified essential hypertension Tardive dyskinesia Subacute 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 Primary osteoarthritis of right knee Iron deficiency anemia, unspecified iron deficiency anemia type Hyperlipidemia, unspecified hyperlipidemia type Hypokalemia Hypopotassemia SIADH (syndrome of inappropriate ADH production) Other disorders of neurohypophysis [facility]* Diagnosis Tardive dyskinesia- Primary Subacute 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 Primary hypertension Unspecified essential hypertension S/P reverse total shoulder arthroplasty, right documented in this [facility]* Diagnosis Dyskinesia, tardive- Primary Subacute 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 [facility] this encounter [facility]* Diagnosis Tardive dyskinesia- Primary Subacute 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 Movement 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 Primary hypertension Unspecified essential hypertension [facility]* Diagnosis Movement disorder- Primary 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 Anxiety Anxiety state, unspecified Tardive dyskinesia Subacute 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 SIADH (syndrome of inappropriate ADH production) Other disorders of neurohypophysis documented [facility] this [facility]* Diagnosis Primary hypertension- Primary Unspecified essential hypertension Anxiety Anxiety state, unspecified Tardive dyskinesia Subacute 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 Movement 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 [facility]* Diagnosis Closed fracture of tuft of distal phalanx of left ring finger- Primary Closed fracture of tuft of distal phalanx of left middle finger Movement 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 Tardive dyskinesia Subacute 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 [facility] this encounter [facility]* Diagnosis Acquired hypothyroidism- Primary Unspecified hypothyroidism Movement 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 [facility] Primary hypertension- Primary Unspecified essential hypertension SIADH (syndrome of inappropriate ADH production) Other disorders of neurohypophysis Acquired hypothyroidism Unspecified hypothyroidism Hypoglycemia Hypoglycemia, unspecified Tardive dyskinesia Subacute 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 Iron deficiency anemia, unspecified iron deficiency anemia type Multifactorial gait disorder Abnormality of gait documented [facility]* Diagnosis Onset Date Resolution Status Admit Date Arthritis of right knee acuteSeptember 2024 11:21am [facility] Work Phone: Evaluation note* Diagnosis Right knee pain, unspecified chronicity- Primary Hypo-osmolality and hyponatremia SIADH (syndrome of inappropriate ADH production) Other disorders of neurohypophysis Primary hypertension Unspecified essential hypertension Movement 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 Abnormality of gait Hyperlipidemia, unspecified hyperlipidemia type documented in this encounter [facility] SystemHistory general Narrative - Reported* Type Description Date Medical History hypothyroidism Medical Historyanxiety and depressionMedical HistorySEROTONIN SYNDROMEMedical HistoryHYPONATREMIA SECONDARY TO SIADHSurgical Historytubal [id number] HistoryHIP LHAVIROM93/2020Surgical [id number] HistoryRECTAL PROLAPSE12/2020Hospitalization HistorySEE ABOVEHospitalization HistoryRECTAL PROLAPSE12/2020 [facility] Other History general Narrative - Reported* Type Description Date Medical History hypothyroidism Medical Historyanxiety and depressionMedical HistorySEROTONIN SYNDROMEMedical HistoryHYPONATREMIA SECONDARY TO SIADHSurgical Historytubal [id number] HistoryHIP URFIYMMR79/2020Surgical [id number] HistoryRECTAL PROLAPSEurgical Historyright reverse total [id number] HistorySEE ABOVEHospitalization HistoryRECTAL PROLAPSE12/2020 [facility] Other InstructionsNot on filedocumented in this encounter [facility] SystemInstructionsNot on filedocumented in this encounter [facility] SystemInstructionsNot on filedocumented in this encounter [facility] SystemInstructionsNot on filedocumented in this encounter [facility] SystemReason for referral (narrative)No reason for referral information availablePrem[facility] Work Phone: Summary Purpose Family History No Family History Records FoundUnknown Family Member Name Dates Details Family history of myocardial infarction: Father(V17.3, Z82.49) Status:ActiveFamily history of cerebrovascular accident (CVA): Mother(V17.1, Z82.3) Status:Active Relationship Condition Age at Onset Recorded Date/T jeferson Not Specified Cerebrovascular disease Unknown Chronic obstructive pulmonary diseaseUnknownHypertensionUnknownfatherCoronary artery diseaseUnknownLymphomaUnknownbrotherHeart diseaseUnknownsisterMalignant neoplasmUnknown Relationship Condition Age at Onset Recorded Date/T jeferson mother Cerebrovascular disease Unknown Chronic obstructive pulmonary diseaseUnknownHypertensionUnknownfatherCoronary artery diseaseUnknownLymphomaUnknownbrotherHeart diseaseUnknownsisterMalignant neoplasmUnknownfatherDeceasedUnknownHeart diseaseUnknownMalignant neoplasm UnknownMyocardial infarctionUnknowngrandparentDeceasedUnknowngrandparent Malignant neoplasmUnknownDeceasedUnknownmotherDeceasedUnknownHistory of stroke Unknown Relationship Condition Age at Onset Recorded Date/T jeferson mother Cerebrovascular disease Unknown Chronic obstructive pulmonary diseaseUnknownHypertensionUnknownDeceasedUnknown History of strokeUnknownfatherCoronary artery diseaseUnknownLymphomaUnknown Myocardial infarctionUnknownMalignant neoplasmUnknownbrotherHeart diseaseUnknown fatherHeart diseaseUnknowngrandparentDeceasedUnknownsisterDeceasedUnknown Advance Directives No Advanced Directives Records Found Advance Directive Response Recorded Date/ Time Advance Directives No May 8:49am Advance Directive Response Recorded Date/ Time Advance Directives No May 7:49am Date ActivatedDate InactivatedComments05/18/2022 5:36 PM2 9:18 PMDate ActivatedDate GzfaxcpwkzvMbudokal05/23/2021 10:29 AM02/06/2021 4:12 PMDate ActivatedDate InactivatedComments01/07/2021 4:37 PM01/08/2021 7:11 PMDate ActivatedDate InactivatedComments12/23/2020 7:31 AM12/26/2020 12:12 PM Chief Complaint and Reason for Visit Chief Complaint Shoulder pain Shoulder pain Shoulder pain Shoulder pain Shoulder pain Z96.611 M75.101 Chief Complaint OP SP RT SHOULDER PA IN CONCERN M25.511 - Pain in right shoulderReason for VisitHistory of reverse total replacement of right shoulder joint [id number] Chief Complaint OP SP RT SHOULDER PA IN CONCERN M25.511 Z96.611 Shoulder pain T84.498AReason for VisitHistory of reverse total replacement of right shoulder joint [id number] Chief Complaint OP SP RT SHOULDER PA IN CONCERN M25.511 Z96.611 Shoulder pain T84.498A Shoulder pain Shoulder painReason for VisitHistory of reverse total replacement of right shoulder joint [id number] History of revision of total shoulder arthroplasty [...] section and content) DATE CREATED AUTHOR 01/14/2020 [facility] DATE CREATED AUTHOR AUTHOR'S ORGANIZ ATION 04/12/2021 [facility] DATE CREATED AUTHOR AUTHOR'S ORGANIZ ATION 09/26/2021 [facility] DATE CREATED AUTHOR AUTHOR'S ORGANIZ ATION 06/06/2022 [facility] DATE CREATED AUTHOR AUTHOR'S ORGANIZ ATION 09/11/2023 [facility] DATE CREATED AUTHOR AUTHOR'S ORGANIZ ATION 08/13/2024 [facility] DATE CREATED AUTHOR AUTHOR'S ORGANIZ ATION 08/21/2024 [facility] DATE CREATED AUTHOR AUTHOR'S ORGANIZ ATION 11/05/2024 [facility] DATE CREATED AUTHOR AUTHOR'S ORGANIZ ATION 01/24/2025 [facility] DATE CREATED AUTHOR AUTHOR'S ORGANIZ ATION 02/02/2025 [facility] REASON FOR VISIT (unrecogniz ed section and content) ReasonCommentsInsurance AuthorizationReasonCommentsFollow UpReasonOnset Date CommentsACM MOHINDER RN06/28/2023Medication Adherence review per request of payerReasonCommentsThyroid ProblemFollow-upReasonCommentsMedication Problem Care Teams (unrecognized sec tion and content) Team Status: Active Member Role Status Dates Alexey Connor DO Primary Care Provider Active Team Status: Inactive Member Role Status Dates Alexey Connor DO Primary Care Provider Active Start: March 31, 2024 End: March 31, 2024Kate Maldonado ProviderActiveStart: March 31, 2024 End: March 31, 2024 Team Status: Inactive Member Role Status Dates Alexey Connor DO Primary Care Provider Active Start: June 01, 2024 End: June 01, 2024Kate Maldonado ProviderActiveStart: June 01, 2024 End: June 01, 2024 Team Status: Active Member Role Status Dates Alexey Connor DO Primary Care Provider Active Start: December 24, 2023 Kate Becerra ProviderActiveStart: December 24, 2023 Team Status: Inactive Member Role Status Dates Alexey Connor DO Primary Care Provider Active Start: January 23, 2024 End: January 23, 2024Thomas Shaquille , MDActiveStart: January 23, 2024 End: January 23, 2024Kate Maldonado ProviderActiveStart: January 23, 2024 End: January 23, 2024 Team Status: Active Member Role Status Dates Alexey Connor DO Primary Care Provider Active Start: January 23, 2024 Simona Sullivan ProviderActiveStart: January 23, 2024 Team Status: Inactive Member Role Status Dates Alexey Connro DO Primary Care Provider Active Simona Sullivan ProviderActive Team Status: Inactive Member Role Status Dates Stevenson Corbin MD Attending Provider Active Mago [facility]St. [facility] ProviderActiveTeam MemberRelationshipSpecialty Start DateEnd Date Esteban Garza [address] [place] [address] PCP - GeneralFamily Practice07/21/18Team MemberRelationshipSpecialtyStart DateEnd Date Esteban Garza [address] [place] [address] PCP - Generalmi Medicine07/21/18Team MemberRelationshipSpecialtyStart DateEnd Date Esteban Garza [address] [place] [address] PCP - Generalmi Medicine07/21/18Team MemberRelationshipSpecialtyStart DateEnd Date Esteban Garza [address] [place] [address] PCP - Generalmi Medicine07/21/18 Team Status: Inactive Member Role Status Dates Alexey Connor DO Primary Care Provider Active Start: January 23, 2024 End: January 23, 2024Simona Sullivan ProviderActiveStart: January 23, 2024 End: January 23, 2024 Team Status: Inactive Member Role Status Dates Alexey Connor DO Primary Care Provider Active Start: January 29, 2024 End: January 29, 2024Nickolas Hawthorne DOAttserge ProviderActiveStart: January 29, 2024 End: January 29, 2024 Team Status: Active Member Role Status Dates Alexey Connor DO Primary Care Provider Active Start: January 29, 2024 Nickolas Hawthorne , DOAttending ProviderActiveStart: January 29, 2024 Team Status: Inactive Member Role Status Dates Alexey Connor DO Primary Care Provider Active Start: February 12, 2024 End: February 13, 2024Nickolas Hawthorne , DOAttending ProviderActiveStart: February 12, 2024 End: February 13, 2024 Team Status: Active Member Role Status Dates Alexey Connor Primary Care Provider Active Start: February 12, 2024 Nickolas Hawthorne DOAttending Provider, Other ProviderActiveStart: February 12, 2024 Team Status: Active Member Role Status Dates Alexey Connor DO Primary Care Provider Active Start: February 24, 2024 Nickolas Hawthorne DOAttending ProviderActiveStart: February 24, 2024 Team Status: Inactive Member Role Status Dates Alexey Connor DO Primary Care Provider Active Start: February 24, 2024 End: February 24, 2024Nickolas Hawthorne DOAttending ProviderActiveStart: February 24, 2024 End: February 24, 2024Team MemberRelationshipSpecialtyStart DateEnd Date Alexey Connor DO [address] [facility] [place] [address] PCP - General[facility]ly Lpusyzmd20/13/22Team MemberRelationshipSpecialtyStart Date End Date Esteban Garza MD [address] [place] [address] PCP - GeneralCass [facility] Systemly Amtptsql67/10/24Team MemberRelationshipSpecialtyStart Date End Date Esteban Garza MD [address] [place] [address] [facility] - [facility] Knsiduaq[facility]10/24Team MemberRelationshipSpecialtyStart Date End Date Alexey Connor DO [address] [facility] [place] [address] [facility]03/27/22 Team Status: Active Member Role Status Dates Alexey PedersonsamanthaDO tresa Primary Care Provider Active Start: July 02, 2024 Nickolas Hawthorne DOAttending ProviderActiveStart: July 02, 2024 Team Status: Inactive Member Role Status Dates Alexey Connor Primary Care Provider Active Start: July 02, 2024 End: July 02, 2024Nickolas Hawthorne DOAttending ProviderActiveStart: July 02, 2024 End: July 02, 2024Team MemberRelationshipSpecialtyStart DateEnd Date Alexey Connor DO [address] [facility] [place] [address] [facility] - [facility]03/27/22 Team Status: Inactive Member Role Status Dates Alexey Connor DO Primary Care Provider Active Start: July 21, 2024 End: July 21, 2024Nickolas Hawthorne DOAttending ProviderActiveStart: July 21, 2024 End: July 21, 2024 Team Status: Active Member Role Status Dates Alexey Connor Primary Care Provider Active Start: August 10, 2024 Nickolas Hawthorne DOAttending ProviderActiveStart: August 10, 2024 Team Status: Inactive Member Role Status Dates Alexey Connor Primary Care Provider Active Start: August 10, 2024 End: August 10, 2024Nickolas Hawthorne DOAttending ProviderActiveStart: August 10, 2024 End: August 10, 2024Team MemberRelationshipSpecialtyStart DateEnd Date Esteban Garza MD [address] [place] [address] [facility]07/21/18Team MemberRelationshipSpecialtyStart DateEnd Date Alexey Connor DO [address] [place] [address] PCP - [facility]03/27/22Team MemberRelationshipSpecialtyStart Date End Date Alexey Connor DO [address] [place] [address] PCP - [facility]03/27/22Team MemberRelationshipSpecialtyStart Date End Date Esteban Garza MD [address] [place] [address] PCP - [facility]03/24/24Team MemberRelationshipSpecialtyStart Date End Date Esteban Garza MD [address] [place] [phone] PCP - [facility]03/24/24 Team Status: Inactive Member Role Status Dates Alexey Connor DO Primary Care Provider Active Start: December 24, 2024 End: December 24, 2024Nickolas Hawthorne DOAttending ProviderActiveStart: December 24, 2024 End: December 24, 2024 [...] BE BASED ON THE PRIMARY CLINICAL RECORDS. [facility]. provides no warranty or guarantee of the accuracy or completeness of information in this document.
--- NOTE | 2025-02-04 15:16 | CT_ITS ---
[address] [address] Patient Name: PATTY ROSE MRN: [id number] date: 1955 Sex: F Assigned Patient Location: [facility] Current Patient Location: [facility] Accession/Order Number: [id number] Exam Date: 02/04/2025 15:25 Report Date: 02/04/2025 16:06 At the request of: RE HSIEH DO Procedure: CT shoulder RT wo con CT shoulder RT wo con 02/04/2025 3:37 PM SIGNS AND SYMPTOMS: mechanical complication of orthopedic device right shoulder TECHNIQUE: Multidetector CT axial slices of the right shoulder without IV contrast. Multiplanar reformats were performed and viewed on a separate workstation and reviewed to further define anatomy and possible pathology. CT was performed with one or more of the following dose reduction techniques: Automated exposure control, adjustment of the mA and/or kV according to patient size, or use of iterative reconstruction technique. 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 There is a fracture through the base of the acromion which is minimally displaced. This extends into the body of the scapula. There is comminuted fracture along the base of the stem of the humeral component of the arthroplasty hardware with apex medial angular deformity. There is a small right-sided pleural effusion. There is an atelectasis in the right lung base. CT/CT shoulder RT wo con IMPRESSION: There is right shoulder arthroplasty hardware which is cranial subluxation respect to the glenoid. There is a fracture through the base of the acromion which is minimally displaced. This extends into the body of the scapula. There is comminuted fracture along the base of the stem of the humeral component of the arthroplasty hardware with apex medial angular deformity. There is a small right-sided pleural effusion. Impression dictated by: Brown Bettencourt M.D. 02/04/2025 4:06 PM Dictation Location: [place] [address] Electronically authenticated by: [id number] Y Date: 02/04/2025 16:06
== END 2025-02-04 07:52 | disposition home or self-care (01) ==
PROVIDERS: PCP Family Medicine; Visit Provider Physician Assistant
DX: S42.121A Displaced fracture of acromial process, right shoulder, initial encounter for closed fracture (principal); Z96.619 Presence of unspecified artificial shoulder joint; T84.498A Other mechanical complication of other internal orthopedic devices, implants and grafts, initial encounter; M97.31XA Periprosthetic fracture around internal prosthetic right shoulder joint, initial encounter
CPT/HCPCS: 73030; 73200; 76376

== ENCOUNTER 2025-02-25 08:22 | Outpatient (OUT) | payer MEDICARE, MEDICAID, SELFPAY ==
--- OUTSIDE RECORDS SUMMARY | 2025-02-22 08:37 | XMS_ITS | Continuity of Care Document ---
Author Organization [facility] Address [address] [place] [address] Phone Care Team Providers Care Care Process Manager Name Role Phone Alexey Connor DO Primary Care Provider Nickolas Hawthorne DO Attending Provider [phone] Nickolas Hawthorne DO Admit Provider [phone] Nickolas Hawthorne DO Other Provider [phone] Leatha Null RN Other Provider Unavailable Tisha Downey RN Other Provider Unavailable Anni Can RN Other Provider Unavailable Margaret Garvin RN Other Provider Unavailable Carlee Wild RN Other Provider Unavailable Shu Singh RN Other Provider Unavailable Lacho Jarrett MD Other Provider Rolando Shafer DO Other Provider [phone] Oscar Tarango MD Other Provider [phone] Shaun Sanchez DO Other Provider Valentino Sheth MD Other Provider Kinsey Prado MD Other Provider Manuel Vance DO Other Provider Unavailab Be Mejia MD Other Provider Unavailable Ana Luisa Arce APRN Other Provider [phone] Carolyn Murcia MD Other Provider Helene Ly MD Other Provider Unavailable Syeda Red MD Other Provider KarineManuel lao DO Other Provider Guzman Hope MD Other Provider Demarco Randall MD Other Provider Willow Carcamo BULK RECEIVER-C Other Provider Brianna Alegre SOFTWARE SUPPORT ANALYST Other Provider Unavailable Scott Skinner MD Other Provider [phone] Art Nash MD Other Provider Aimee Cortes MD Other Provider Unavailable Isrrael Alan DO Other Provider Norah Green SOFTWARE SUPPORT ANALYST Other Provider Reagan Fuentes DO Other Provider Yesenia Benton MD Other Provider [phone] Yamilka Go SOFTWARE SUPPORT ANALYST Other Provider Yuliya Sandoval SOFTWARE SUPPORT ANALYST Other Provider Lisa Oleary MD Other Provider Unavailable Pepe Rowell MD Other Provider [phone] Samuel Conti DO Other Provider Antonio Solomon MD Other Provider [phone] Bill De La Fuente MD Other Provider May Tyler APRN Other Provider Unavailable Jayme Woodard MD Other Provider Tai Daniel MD Other Provider Be Wright MD Other Provider Evelio Andres MD Other Provider Tami Gonzales SOFTWARE SUPPORT ANALYST Other Provider Oswald Valencia SOFTWARE SUPPORT ANALYST Other Provider Vance Melvin MD Other Provider Joann Snyder RN Other Provider Unavailable Maria Isabel Navas Other Provider Unavailable Joceline Miranda DO Other Provider Maxi Solomon MD Attending Provider Maxi Solomon MD Other Provider Giancarlo Rivas M DO Other Provider Venancio Morris M DO Other Provider May Ray SOFTWARE SUPPORT ANALYST Other Provider Evi Cortez SOFTWARE SUPPORT ANALYST-SUPERVISOR [employer]MENT-C Other Provider [phone] Radha Bosch MD Other Provider Kandi Gerardo BULK RECEIVER-C Other Provider Unavailable Ezequiel Eugene Other Provider Rosibel Kay MD Other Provider Bobby Sommers DO Other Provider Maria Isabel Hess M SOFTWARE SUPPORT ANALYST Other Provider Tai Wilson DO Other Provider Basilia Ramey DO Other Provider Tai Wilson DO Other Provider Venancio Perry DO Other Provider Thomas Turner DO Attending Provider Care Teams Patient Care Team Team Status: Active Member Role/Relationship Status Dates Alexey Connor DO Primary Care Provider Active Visit Care Team Team Status: Inactive Member Role/Relationship Status Dates Alexey Connor DO Primary Care Provider Active Start: December 24, 2024 End: December 24, 2024Nickolas Hawthorne DOAttending ProviderActiveStart: December 24, 2024 End: December 24, 2024 Visit Care Team Team Status: Inactive Member Role/Relationship Status Dates Alexey Connor DO Primary Care Provider Active Start: February 04, 2025 End: February 04, 2025Nickolas Hawthorne , DOAttending ProviderActiveStart: February 04, 2025 End: February 04, 2025 Visit Care Team Team Status: Inactive Member Role/Relationship Status Dates Alexey BgDO leeann Primary Care Provider Active Start: February 10, 2025 End: February 10, 2025Nickolas Hawthorne , DOAttending ProviderActiveStart: February 10, 2025 End: February 10, 2025 Visit Care Team Team Status: Active Member Role/Relationship Status Dates Alexey BgDO leeann Primary Care Provider Active Start: February 12, 2025 Nickolas Hawthorne , DOAdmit ProviderActiveStart: February 12, 2025 Nickolas Hawthorne DOOther ProviderActiveStart: February 12, 2025 Leatha Null , RNOther ProviderActiveStart: February 12, 2025 Tisha Downey , CHADWICKOther ProviderActiveStart: February 12, 2025 Anni Can , RNOther ProviderActiveStart: February 12, 2025 Margaret Garvin , CHADWICKOther ProviderActiveStart: February 12, 2025 Carlee Wild , CHADWICKOther ProviderActiveStart: February 12, 2025 Shu Singh , CHADWICKOther ProviderActiveStart: February 12, 2025 Lacho Jarrett MDOther ProviderActiveStart: February 12, 2025 Rolando Shafer , DOOther ProviderActiveStart: February 12, 2025 Oscar Tarango MDOther ProviderActiveStart: February 12, 2025 Shaun Sanchez , DOOther ProviderActiveStart: February 12, 2025 Valentino Sheth MDOther ProviderActiveStart: February 12, 2025 Kinsey Prado MDOther ProviderActiveStart: February 12, 2025 Manuel Vance , DOOther ProviderActiveStart: February 12, 2025 Be Horowitz MDOther ProviderActiveStart: February 12, 2025 Ana Luisa Arce , APRNOther ProviderActiveStart: February 12, 2025 Carolyn Murcia MDOther ProviderActiveStart: February 12, 2025 Helene Ly MDOther ProviderActiveStart: February 12, 2025 Syeda Red MDOther ProviderActiveStart: February 12, 2025 Manuel Castaneda , DOOther ProviderActiveStart: February 12, 2025 Guzman Hope MDOther ProviderActiveStart: February 12, 2025 Demarco Randall MDOther ProviderActiveStart: February 12, 2025 Willow Carcamo , BULK RECEIVER-COther ProviderActiveStart: February 12, 2025 Brianna Alegre , APRNOther ProviderActiveStart: February 12, 2025 Scott Skinner MDOther ProviderActiveStart: February 12, 2025 Art Nash MDOther ProviderActiveStart: February 12, 2025 Aimee Cortes MDOther ProviderActiveStart: February 12, 2025 Isrrael Alan , DOOther ProviderActiveStart: February 12, 2025 Norah Green , APRNOther ProviderActiveStart: February 12, 2025 Reagan Fuentes , DOOther ProviderActiveStart: February 12, 2025 Yesenia Benton MDOther ProviderActiveStart: February 12, 2025 Yamilka Go , APRNOther ProviderActiveStart: February 12, 2025 Yuliya Sandoval , APRNOther ProviderActiveStart: February 12, 2025 Lisa Oleary MDOther ProviderActiveStart: February 12, 2025 Pepe Rowell MDOther ProviderActiveStart: February 12, 2025 Samuel Conti , DOOther ProviderActiveStart: February 12, 2025 Antonio Solomon MDOther ProviderActiveStart: February 12, 2025 Bill De La Fuente MDOther ProviderActiveStart: February 12, 2025 May Tyler , APRNOther ProviderActiveStart: February 12, 2025 Jayme Woodard MDOther ProviderActiveStart: February 12, 2025 Tai Daniel MDOther ProviderActiveStart: February 12, 2025 Be Wright MDOther ProviderActiveStart: February 12, 2025 Evelio Andres MDOther ProviderActiveStart: February 12, 2025 Tami Gonzales , APRNOther ProviderActiveStart: February 12, 2025 Oswald Valencia , APRNOther ProviderActiveStart: February 12, 2025 Vance Melvin MDOther ProviderActiveStart: February 12, 2025 Joann Snyder RNOther ProviderActiveStart: February 12, 2025 Maria Isabel Hong ProviderActiveStart: February 12, 2025 Joceline Miranda , DOOther ProviderActiveStart: February 12, 2025 Maxi Solomon MDAttending ProviderActiveStart: February 12, 2025 Maxi Solomon MDOther ProviderActiveStart: February 12, 2025 Giancarlo Rivas , DOOther ProviderActiveStart: February 12, 2025 Venancio Morris , DOOther ProviderActiveStart: February 12, 2025 May Ray , APRNOther ProviderActiveStart: February 12, 2025 Evi Cortez , MTWC-WBQ-EGsyiu ProviderActiveStart: February 12, 2025 Radha Bosch MDOther ProviderActiveStart: February 12, 2025 Kandi Gerardo , BULK RECEIVER-COther ProviderActiveStart: February 12, 2025 Sena Eugene MDOther ProviderActiveStart: February 12, 2025 Rosibel Kay MDOther ProviderActiveStart: February 12, 2025 Bobby Sommers DOOther ProviderActiveStart: February 12, 2025 Maria Isabel Hess , APRNOther ProviderActiveStart: February 12, 2025 Tai Wilson , DOOther ProviderActiveStart: February 12, 2025 Basilia Ramey DOOther ProviderActiveStart: February 12, 2025 Tai Wilson , DO FELLOWOther ProviderActiveStart: February 12, 2025 Venancio Perry DO FELLOWOther ProviderActiveStart: February 12, 2025 Visit Care Team Team Status: Active Member Role/Relationship Status Dates Alexey Connor DO Primary Care Provider Active Start: February 19, 2025 Nickolas Hawthorne , DOAdmit ProviderActiveStart: February 19, 2025 Manuel Castaneda DOOther ProviderActiveStart: February 19, 2025 Leatha Null RNOther ProviderActiveStart: February 19, 2025 Tisha Downey , RNOther ProviderActiveStart: February 19, 2025 Anni Can , CHADWICKOther ProviderActiveStart: February 19, 2025 Margaret Garvin , CHADWICKOther ProviderActiveStart: February 19, 2025 Carlee Wild , RNOther ProviderActiveStart: February 19, 2025 Shu Singh , CHADWICKOther ProviderActiveStart: February 19, 2025 Lacho Jarrett MDOther ProviderActiveStart: February 19, 2025 Rolando Shafer , DOOther ProviderActiveStart: February 19, 2025 Oscar Tarango MDOther ProviderActiveStart: February 19, 2025 Shaun Sanchez , DOOther ProviderActiveStart: February 19, 2025 Valentino Sheth MDOther ProviderActiveStart: February 19, 2025 Kinsey Prado MDOther ProviderActiveStart: February 19, 2025 Manuel Vance DOOther ProviderActiveStart: February 19, 2025 Be Horowitz MDOther ProviderActiveStart: February 19, 2025 Ana Luisa Arce , APRNOther ProviderActiveStart: February 19, 2025 Carolyn Murcia MDOther ProviderActiveStart: February 19, 2025 Helene Ly MDOther ProviderActiveStart: February 19, 2025 Syeda Red MDOther ProviderActiveStart: February 19, 2025 Guzman Hope MDOther ProviderActiveStart: February 19, 2025 Demarco Randall MDOther ProviderActiveStart: February 19, 2025 Willow Carcamo BULK RECEIVER-COther ProviderActiveStart: February 19, 2025 Brianna Alegre , APRNOther ProviderActiveStart: February 19, 2025 Scott Skinner MDOther ProviderActiveStart: February 19, 2025 Art Nash MDOther ProviderActiveStart: February 19, 2025 Aimee Cortes MDOther ProviderActiveStart: February 19, 2025 Isrrael Alan , DOOther ProviderActiveStart: February 19, 2025 Norah Green , APRNOther ProviderActiveStart: February 19, 2025 Reagan Fuentes DOOther ProviderActiveStart: February 19, 2025 Yesenia Benton MDOther ProviderActiveStart: February 19, 2025 Yamilka Go , APRNOther ProviderActiveStart: February 19, 2025 Yuliya Sandoval , APRNOther ProviderActiveStart: February 19, 2025 Lisa Oleary MDOther ProviderActiveStart: February 19, 2025 Pepe Rowell MDOther ProviderActiveStart: February 19, 2025 Samuel Conti , DOOther ProviderActiveStart: February 19, 2025 Antonio Solomon MDOther ProviderActiveStart: February 19, 2025 Bill De La Fuente MDOther ProviderActiveStart: February 19, 2025 May Tyler , APRNOther ProviderActiveStart: February 19, 2025 Jayme Woodard MDOther ProviderActiveStart: February 19, 2025 Tai Daniel MDOther ProviderActiveStart: February 19, 2025 Be Wright MDOther ProviderActiveStart: February 19, 2025 Evelio Anrdes MDOther ProviderActiveStart: February 19, 2025 Tami Gonzales , APRNOther ProviderActiveStart: February 19, 2025 Oswald Valencia , APRNOther ProviderActiveStart: February 19, 2025 Vance Melvin MDOther ProviderActiveStart: February 19, 2025 Joann Snyder RNOther ProviderActiveStart: February 19, 2025 Radha Bosch MDOther ProviderActiveStart: February 19, 2025 Kandi Gerardo NP-COther ProviderActiveStart: February 19, 2025 Sena Eugene MDOther ProviderActiveStart: February 19, 2025 Rosibel Kay MDOther ProviderActiveStart: February 19, 2025 Maria Isabel Barrosther ProviderActiveStart: February 19, 2025 Joceline Miranda DOOther ProviderActiveStart: February 19, 2025 Maxi Solomon MDOther ProviderActiveStart: February 19, 2025 Giancarlo Rivas DOOther ProviderActiveStart: February 19, 2025 Venancio Morris DOOther ProviderActiveStart: February 19, 2025 May Ray , APRNOther ProviderActiveStart: February 19, 2025 Evi Cortez , PDUM-JHR-VEldyt ProviderActiveStart: February 19, 2025 Bobby Sommers , DOOther ProviderActiveStart: February 19, 2025 Maria Isabel Hess , APRNOther ProviderActiveStart: February 19, 2025 Tai Wilson , DOOther ProviderActiveStart: February 19, 2025 Basilia Ramey , DOOther ProviderActiveStart: February 19, 2025 Tai Wilson , DO FELLOWOther ProviderActiveStart: February 19, 2025 Venancio Perry , DO FELLOWOther ProviderActiveStart: February 19, 2025 Thomas Turner , DOAttending ProviderActiveStart: February 19, 2025 Chief Complaint and Reason for Visit Chief Complaint Admit Date TBH-OP SP RT KNEE PAIN WX TBH December 24, 2024 11:21am ER TBH RT SHOULDER PERIPROSTHETIC FX WX February 04, 2025 11:11am Shoulder pain February 10, 2025 2 :21pm Shoulder pain February 12, 2025 9 :20am Shoulder pain February 19, 2025 1 2:00am Reason for Visit Admit Date Arthritis of right knee December 24, 2024 11:21am History of reverse total rep lacement of right shoulder joint February 04, 2025 11:11am History of revision of total shoulder ar throplasty February 04, 2025 11:11am Other mechanical complicatio n of other internal orthopedic devices, implant February 04, 2025 11:11am Counseling regarding advance directives and goals of care February 12, 2025 9:20am History of revision of total shoulder ar throplasty February 12, 2025 9:20am Hypertension February 12, 2025 9 :20am Hyponatremia February 12, 2025 9 :20am Hypothyroidism February 12, 2025 9 :20am Status post reverse arthroplasty of shou lder February 12, 2025 9:20am Tardive dyskinesia February 12, 2025 9 :20am Traumatic closed nondisplace d fracture of distal end of left fibula with ro February 12, 2025 9:20am UTI (urinary tract infection) February 122024 9:20am Reason for Referral Type Reason(s) Provider Provider Contact Information P rovider Address Start Date You have been scheduled for a follow up appointment for the following date and time, please call to reschedule if needed.Nickolas Candice Hawthorne ACOSTAjose Phone: [phone] [facility] [address] Allergies, Adverse Reactions, Alerts Allergen Type Severity Reaction Last Updated Verified Status Comments azithromycin Allergy Unknown Unknow December 24, 2024 10:35am Yes Active Listed as an allergy on her PCP notes erythromycin base Allergy Unknown Unknown Reaction December 24, 2024 10:35am Yes Active cefepimeAdverse ReactionModerateLethargyNovember 2024 2:48pmYesActive Social History Smoking Status Status Start Date End Date Date of Observa tion Ex-smoker (finding) February 17, 2025 1:44pm Observation Status Observation Response Date of Response Legal Sex Female (finding) [facility] Social History Assessments Assessment Value Date Recorded SDOH Follow up February 22, 2025 12:30pmQuestionAnswerDate RecordedHas the SDOH screening changed since admission?NN2024 12:30pm Assessment Value Date Recorded SDOH Follow up February 19, 2025 12:16pmQuestionAnswerDate RecordedHas the SDOH screening changed since admission?[facility] 2024 12:16pm Family History Relationship Condition Age at Onset Recorded Date/T jeferson mother Cerebrovascular disease Unknown DeceasedUnknownHistory of strokeUnknownChronic obstructive pulmonary disease UnknownHypertensionUnknownfatherCoronary artery diseaseUnknownLymphomaUnknown Myocardial infarctionUnknownDeceasedUnknownMalignant neoplasmUnknownHeart diseaseUnknownbrotherHeart diseaseUnknownbrotherHeart diseaseUnknowngrandparent DeceasedUnknowngrandparentDeceasedUnknownMalignant neoplasmUnknowngrandparent DeceasedUnknowngrandparentDeceasedUnknownsisterDeceasedUnknown Problems Active Problems Problem Diagnosis/Recorded Date Onset Date Status C omments UTI (urinary tract infection) February 16, 2025 5:08pm Un known Active History of reverse total replacement of right shoulder jointOctober 2023 3:52pmUnknownActiveHistory of revision of total shoulder arthroplastyOctober 2023 7:12amUnknownActiveCounseling regarding advance directives and goals of careNovoasis [facility] 2024 2:23pmUnknownActiveTardive dyskinesiaMarch 2020 9:58amUnknownActiveTraumatic closed nondisplaced fracture of distal end of left fibula with routine healingMarch 2020 10:01amUnknownActiveHyponatremia February 13, 2025 12:52pmUnknownActiveHypothyroidismMarch 2020 10:00am UnknownActiveStatus post reverse arthroplasty of shoulderOctober 2024 10:08amUnknownActiveStatus post reverse total arthroplasty of right shoulder January 22, 2024 3:56pmUnknownActiveRight knee painDecember 2023 12:21pm UnknownActiveRight shoulder painOctober 2023 3:52pmUnknownActive HypertensionJune 2021 10:26amUnknownActiveOther mechanical complication of other internal orthopedic devices, implants and grafts, initial encounterOctober 2023 8:54amUnknownActiveArthritis of right kneeMarch 2024 1:14pm UnknownActiveInactive/Resolved Problems Problem Diagnosis/Recorded Date Onset Date Status C omments Hydronephrosis June 29, 2020 10:33am Unknown Resolve d Problem List clean-up per request of Phys. EHR Cmte Acute alteration in mental status June 28, 2020 2:47pm Unknown Resolved Problem List clean-up per request of Phys. EHR Cmte COVID-19 June 28, 2020 5:47pm Unknown Resolved P roblem List clean-up per request of Phys. EHR Cmte Anxiety July 05, 2020 9:24am Unknown Resolved P roblem List clean-up per request of Phys. EHR Cmte Depression July 04, 2020 1:41pm Unknown Resolved P roblem List clean-up per request of Phys. EHR Cmte Rhabdomyolysis June 28, 2020 2:47pm Unknown Resolved Problem List clean-up per request of Phys. EHR Cmte Hypophosphatemia June 29, 2020 10:32am Unknown Resol eleonora Problem List clean-up per request of Phys. EHR Cmte Acute metabolic encephalopathy June 29, 2020 9:08am Unknown Resolved Problem List clean-up per request of Phys. EHR Cmte Sepsis June 28, 2020 2:47pm Unknown Resolved P roblem List clean-up per request of Phys. EHR Cmte Abnormal movements June 29, 2020 9:08am Unknown Reso lved Problem List clean-up per request of Phys. EHR Cmte Acute hyponatremia June 28, 2020 2:47pm Unknown Reso lved Problem List clean-up per request of Phys. EHR Cmte Hypokalemia June 29, 2020 10:32am Unknown Resolved Problem List clean-up per request of Phys. EHR Cmte Hypocalcemia June 29, 2020 10:32am Unknown Resolved Problem List clean-up per request of Phys. EHR Cmte Medications Medication Status Dose Units Route Directions Qty Days Refills S tart Date Stop Date End Date Reason(s) Instructions Adherence Oxycodone 5 mg tablet Discontinued 5 MG PO Q6H as needed f or Pain 28 7 0 February 11, 2024 February 13, 2024 1:03pmStatus post reverse total replacement of right shoulder Presence of right artificial shoulder jointDocusate Sodium (Colace) 100 mg ggvygdsWmwqzosrveqy682RKEAPhzys daily as needed for Dttgyunuqyqx02666Tbpppzx 2023 11:00pmFebruary 2024 11:55amAcetaminophen 500 mg tablet Mwrqirtfeqfa459KTPOJ1N as needed for Sogh605Wleobsg 2023 11:00pmFebruary 2024 11:55amDO NOT RECONCILE UNTIL DOS 02/12/24 TO BE USED POST OPPolyethylene Glycol 3350 (Miralax) 17 gram powder in packet Rfifvxdeeujv06VVCHzzwwt56247Anrkerm 28th, 2024 11:00pmFebruary 2024 11:55am1 packet mixed with 8 ounces of fluid.Meloxicam 15 mg tabletDiscontinued 12YSDNuncko41905Yyajtph 2023 11:00pmOctober 2023 12:20pmDoxycycline Hyclate 100 mg lsuccdqRdxvqvdtnfub884KSKJMzasn zmasc7274Igmazwu 2023 11:00pmOctober 2023 12:20pmPolyethylene Glycol 3350 (Miralax) 17 gram powder in hknnalQgjatwhgsqnr66PLSZrzcmh88164Ondcyer 2024 11:00pmNovember 2024 3:49pm1 packet mixed with 8 ounces of fluid. TO BE USED POST OP 02/12/25Acetaminophen 500 mg toqkmjKyejco625QEEIM9V as needed for Rixb707Ebuznci 2024 11:00pmTO BE USED POST OP 02/12/25UnknownDocusate Sodium (Colace) 100 mg dnmqwebCphwlx249WRDJWrrlt daily as needed for Rjhafwihxapi02509Ectiqxv 2024 11:00pmTO BE USED POST OP 02/12/25Unknown Doxycycline Hyclate 100 mg fnlyrzBfrrjvremdro036DWZOZejne lhvpy80176Oiiyyqw 2024 11:00pmNovember 2024 8:01amTO BE USED POST OP 02/12/25Oxycodone 5 mg noeobmZuquktniyfxw9ADUGG9S as needed for Tufv2328Gfehnnb 30th, 2025November 2024 2:55pmStatus post reverse total shoulder replacement Presence of unspecified artificial shoulder jointTO BE USED POST OP 02/12/25 Atorvastatin 40 mg naekvhLjprqzagpgqt50JADKYrknn at bedtimeMay 2021 11:00pmOctober 2024 2:16pmAlendronate (Fosamax) 70 mg JggsbxMioibeepxfjb04 MGPOevery weekSeptember 12, 2021 11:00pmFebruary 2024 11:55amtakes every friAmlodipine 5 mg zcqufwYmdbkdtcsidf56FNXSGgwkzWkk 2021 11:00pmOctober 2023 12:49pmCalcium Carbonate-Vitamin D3 600 mg-5 mcg (200 unit) Tablet Wtmepg3OREWISsazbItb 2021 11:00pmUnknownFerrous Sulfate 325 mg (65 mg iron) ShqptpHtqjix834TXWKRbdjfXod 2021 11:00pmUnknownIbuprofen 200 mg KffgrbCwzabqffcwjw177ZLPLA8R as needed for PainMay 2021 11:00pmOctober 2023 12:56pmGabapentin 300 mg YdvkgehGclbyddwwsdf387OUZQOxteh dailyMay 2021 11:00pmNovember 2024 3:03pmFluticasone Propionate 50 mcg/actuation [place],CbgwhtbfavTjrjuz5AFREUONNWHWLDYMZamuuNll 2021 11:00pm allergic rhinitisUnknownBuspirone 15 mg anbaqnZresrhskmyus53OIGMLbaxm dailyMay 2021 11:00pmOctober 2023 8:46amanxietyMenthol (Biofreeze (Menthol)) 4 % PvqForovzwflcec6OIJNUEAPNLJQNM3W as needed for shoulder painMay 2021 11:00pmJuly 2021 6:26amDeutetrabenazine (Austedo) 6 mg tabletDiscontinued6 MGPOTwice dailyMay 2021 11:00pmOctober 2023 1:08pmtardive dyskinesia Loperamide (Imodium A-D) 2 mg CapsuleDiscontinued1 - 0OOYTZ8G as needed for Diarrheay 2021 11:00pmOctober 2023 12:56pmPolyethylene Glycol 3350 (Miralax) 17 gram/dose EcocnsKjumdfeguqgl48RRDQMokzw as needed for Constipation September 12, 2021 11:00pmOctober 2023 12:57pmClonazepam 1 mg tablet Agwrdnbpqhgl8YTQQSrppj times dailyJune 2021 11:00amNovember 2024 3:03pmAnxietyBuspirone 10 mg ndnaxdLsjdch26ORFARhuvu dailyJune 2021 11:00am anxietyUnknownDeutetrabenazine (Austedo Xr) 36 mg tablet extended release 24 hr Myerai08CCXTKddsv morningOct2024 11:00pmUnknownDocusate Sodium 100 mg ldoqtwmPmwkuu940IVTMLpxcm eveningOct2024 11:00pmUnknownGabapentin 600 mg iyzaeqQlsxcscdcihc976SRAORwbap at bedtimeDet[facility] 20[facility] 11:[facility]pm[facility] 20[facility] 2:53pmMetoprolol Succinate 25 mg tablet extended release 24 uiAmuota20 MGPOEvery morningOctt.j. [facility] 2024 11:00pmUnknownMirtazapine 7.5 mg tablet Active7.5MGPODaily at bedtimeDetroit [facility]ceiving Hospital 2024 11:00pmUnknownTrazodone 100 mg ngslimLewqsyfhbyyc870FDFIRksfb at bedtimeDet[facility] 2024 11:00pm[facility] 2024 3:00pmHydrocodone-Acetaminophen 5-325 mg jnlbdpRslyypidjtua5UAKAIWfhbx at bedtimeDet[facility]ceiving [facility] 2024 11:00pm[facility]20[facility] 8:01ampainHydrocodone- Acetaminophen 5-325 mg pnwxkfMqzfezlomhgd8ZSGDJBofzo at zgcsmgr873Tcggfkvq 1st, 2025 7:49amNovember 2024 8:03ampainAcetaminophen 500 mg EauarlXdfeyv2886SI PSU5U22Sritxkyr2024 12:00amUnknownLevofloxacin 500 mg RkwrbqZeuget093UFCN Sacsy384Iwoxhxzv2024 12:00amlast dose 02/23UnknownMagnesium Oxide 400 mg (241.3 mg magnesium) RwsvewPgnvfl598EWXHKncdk nbgus26Jashngkc2024 12:00am UnknownPotassium Chloride (Klor-Con M20) 20 mEq Tablet,Er Particles/Crystals Cnezlh79IPRBJVxyvq53Lizqynpe 9th, 2025 12:00amUnknownSaccharomyces Boulardii 250 mg UqovusoWrwkop294OWBCDgdom jqlan29Egjfshys2024 12:00amUnknownRivaroxaban (Xarelto) 15 mg RtznnbJfzzlu42UUTONfhce daily with gwbbl59Bbceekla2024 12:00amthrough 03/08, then start 20mg daily on 03/09UnknownRivaroxaban (Xarelto) 20 mg OfugaoMfifii10YOKETbsdi with xviewovfm27Mxkulvbd 9th, 2025 12:00amstart 11/25UnknownSodium Chloride 1,000 mg Tablet,BpesbqqYecmiu7460FHEAZmih times gaeao41OysekhhaFebruary 21, 2025 12:00amUnknownTramadol 50 mg UmyohbPnmfum66UTQVG8S as needed for Jyru9092Yczziqdp2024 12:00amStatus post reverse total shoulder replacement Presence of unspecified artificial shoulder jointUnknownUrea (Ure-Na) 15 gram Powder In TcykveDhvebu35BDKUBkpri52Uvktpcnq 9th, 2025 12:00amUnknownClonazepam 1 mg ojtdctOyugxg1XUYVHshcp times nmuvt3734Epzddipa2024 3:03pmTardive dyskinesia Drug induced subacute dyskinesia AnxietyUnknownGabapentin 300 mg EhtucpbKojneh840KVOUPhtyr times fnpqy8416 February 21, 2025 3:03pmUnknownPravastatin 40 mg EkiwhxPwosufeirskj69GQNLOvvrt at bedtime[facility] 2020 11:00pm[facility]2021 11:01amAlendronate 70 mg Tablet Gquznubkpsdi24XCMHmvmvo weekMar 2020 11:00pm[facility]2021 11:00am Clonazepam 1 mg YofyxcCwncmzhhyezm1JJIADnsga times dailyMar 2020 11:00pm July 05, 2020 9:25amLevothyroxine 75 mcg JxkpdpAzipko10BHHQGExneg morning June 27, 2020 11:00pmUnknownPrimidone 250 mg OdoxhgXpxsdaaepkuh380BDFTBfzns dailyMarch 2020 11:00pmFebruary 2024 11:55amseizureMethocarbamol 750 mg UunjsyHchzhlyldmoa575GFXXMdbyq times dailyMarch 2020 11:00pmOctober 2023 12:57pmmovement disorderTrazodone 150 mg OaisncRgognsvwwgya278XBJC Daily at bedtimeMarch 2020 11:00pmJune 2021 11:02amBuspirone 10 mg QlhjnsQeuauxekovyu45YECWGDT@09,14March 2020 11:00pm[facility] 2020 9:25am 1.5 tabs in AM, 1.5 tabs in afternoon, 1 tab in eveningGabapentin 300 mg Capsule Yhzkgatswvrn599PYKCYwfnj dailyHighland District Hospital 2020 11:00pm[facility] 2020 9:25am1 (300MG) in AM, 1 (300 MG) in afternoon, 2 (600 MG) at bedtimeMagnesium 250 mg GctmijQoekojbkvofk220IPAEOemvp at bedtimeHighland [facility] 2020 11:00pm[facility]2021 11:01amEscitalopram Oxalate 20 mg ZpsxnnQpkquvdxxnux27GIZSEvpzbPbvfj 2020 11:00pm[facility] 2020 9:25amValbenazine (Ingrezza) 80 mg CbsnesfEviqctekfftr12 MGPODailyHighland District Hospital 2020 11:00pm[facility]2021 11:01amBuspirone 10 mg tablet Lwajngjuirfx64WTHAQrlohgjYixel 2020 11:00pmHigh[facility] 2020 9:25am Gabapentin 300 mg jqbfzriNdutwoqbsemd759YFSFGhhctncDehab 2020 11:00pm June 01, 2024 11:55amClonazepam 1 mg ZmjvzcDrgqfighjnlo8MEDZCeaza daily as needed for Bnpswbc959Bgtui 2020 11:00pmC[facility] Care[facility] 2021 11:00amAnxiety Anxiety disorder, unspecifiedFurosemide 20 mg OopkylWxuladhghkky96TTDUKtsji at 447683251Whbtv 2020 11:00pmC[facility] Care[facility] 2021 11:01amBuspirone 10 mg tablet Ynoriakvvlvn75HSHSGpybo times vlxzo843Cyorg 2020 11:00pmJune 2021 11:00amEscitalopram Oxalate (Lexapro) 10 mg yhgydeBwrtcxkqxzaj49KBNZTrgqz596 July 04, 2020 11:00pmJune 2021 11:01amSucralfate 1 gram tablet Vuyoxvxywrav8BTPPZfcb times dailyCarteret Health Caree 2021 11:00pmOctt.[facility]. [facility] 2023 12:58pmgerdsOndansetron Hcl (Zofran) 4 mg TaqzcmUbmzfzpsblka0KIDQXofbt 4 hours Nadya 26th, 2022 11:00pmOctober 2023 12:20pmnausea/vomitingAcetaminophen (Tylenol Extra Strength) 500 mg AtiuuaIefhnh3182XRNHKzvlw times daily as needed for painJune 2021 11:00pmUnknownTrazodone 150 mg akegmdVwgnzccdklau214HBHE BedtimeJune 2021 11:00pmOctober 2024 2:06pmmajor depression insomnia Sodium Chloride 1,000 mg Tablet,MdvsxciBbdvwdwwmkml3920EPCKHhvimSnqe 2021 11:00pmFebruary 2024 11:55amOndansetron Hcl 4 mg kvqielXqnmrw9ECWIKcqdc as needed for nausea and vomitingOctober 2023 11:00pmUnknownDoxycycline Hyclate 100 mg XxgivbXmnedjnwjejj983XLUDFbwmm lglsp660Vgigiuo 2023 11:00pm February 24, 2024 9:33amOxycodone 5 mg fcgitnGldwtcrvlvpr3JJBWD0G as needed for Nfvb9057Tbqvzxl 2023February 2024 11:55amStatus post reverse total replacement of right shoulder Presence of right artificial shoulder jointAmantadine Hcl 100 mg tablet Aexswtzkbajy308ZLROZkcqh dailyOctober 2023 11:00pmOctober 2024 2:16pmAmlodipine 10 mg htbjvmOkjhfe55VSDENnhfc morningOctober 2023 11:00pm UnknownAspirin (Adult Low Dose Aspirin) 81 mg tablet,delayed release (DR/EC) Ecuvtb13XGNUHzbtr morningOctober 2023 11:00pmUnknownCamphor-Menthol (Freeze It Relief) 0.2-3.5 % aikLqevublndylq2TLKFZIQXVGMSJ9-0 TIMES PER DAY as needed for painOctober 2023 11:00pmOctober 2024 2:17pmrub in gently and completelyCarbamazepine 200 mg awaczoGyfrbh465FBSAJcpyq times dailyOctober 2023 11:00pmUnknownClonazepam 0.5 mg tabletDiscontinued0.5MGPOThree times dailyOctober 2023 11:00pmNovember 2024 2:52pmPantoprazole (Protonix) 40 mg tablet,delayed release (DR/EC)Rjaecmxjprrk64SPRHUgogaDwawljj 2023 11:00pmFebruary 2024 11:55amMetoprolol Succinate 50 mg tablet extended release 24 grTtlwgq36OAEGVnxxd morningFebruary 24, 2024 12:00amUnknown Cyclobenzaprine 10 mg tabletDiscontinuedMGPONovember 2023 12:00amFebruary 2024 11:55amMenthol (Biofreeze (Menthol)) 4 % bxiEnhrxp9KWAGZKJSGEDCN8-4 TIMES PER DAY as needed for painFebruary 2024 12:00amUnknownAlendronate (Fosamax) 70 mg impmvoMdfdpb31DSDCcbtha weekFebruary 2024 12:00amUnknown Gabapentin 300 mg bxrjfltWxzfggdalcjg972UEUYGsxcj dailyFebruary 2024 12:00amOctober 2024 1:58pmGuaifenesin 100 mg/5 mL kaitwnFxxtnt806ACSNJnynv 4 hours as needed for coughFebruary 2024 12:00amUnknownLoperamide (Imodium A-D) 2 mg fwfhzdtOouxlq1WUXIJzvjz 6 hours as needed for loose stoolFebruary 2024 12:00amUnknownPolyethylene Glycol 3350 (Miralax) 17 gram/dose powder Cggssfqzexdb79DTIFHijivHsbwuedw 2024 12:00amNovember 2024 2:55pm Mirtazapine 15 mg eqynmwDghpedesldog49SKQLGrgemAfasndtj 2024 12:00am February 10, 2025 1:52pmPrimidone 50 mg jrcgmrKbthbo165EESWDfubh dailyFebruary 2024 12:00amUnknownPantoprazole (Protonix) [address] for susp in syvdaqMiossk10OSGFXochk morningFebruary 2024 12:00amUnknownSodium Chloride 1 gram ddjngyFaqzpk1622BTYCEdypm dailyFebruary 2024 12:00amUnknown Tetrabenazine 25 mg mnjrbhJbuqvvysttru28DRELYnmgoCkjdyxex 2024 12:00am February 10, 2025 2:18pmHydrocodone-Acetaminophen 5-325 mg tabletDiscontinued1 TABPODaily at bedtime as needed for pdfb35162Ujpvvtv 23rd, 2025October 2024 10:55amRight shoulder pain Pain in right shouldertwelve tabletsHydrocodone-Acetaminophen 5-325 mg tablet Vibujcgvgnyo7QBAIXJqsle at bedtime as needed for cpiz40518Srmjaxu 2024February 10, 2025 2:26pmRight shoulder pain Pain in right shouldertwelve tablets Immunizations Immunization Event Date Not Given Reason Dose Number Spice Fumigator Lot Number Reason(s) Given Vaccine Information Statement (VIS) Detail Administration Location COVID-19 mRNA, Comirnaty (Statusly) June 23 COVID-19 mRNA, Comirnaty (Statusly)July 14OVID-19 mRNA, Comirnaty (Statusly)March 26, 2021Tetanus, Diphtheria, Pertussis (Tdap)June 28, [address] Medical Equipment Device Date Implanted Date Explanted Device Deta ils Total reverse shoulder prosthesis February 12, 2024 EARNEST: ()[id number] Issuing Agency: [facility] Device Id: [id number] Expiration Date: 2024-08-12 Lot Number: [id number] reverse shoulder prosthesisOctober 2023UDI: ()[id number] Issuing Agency: [facility] Device Id: [id number] Expiration Date: 2027-05-15 Lot Number: [id number] reverse shoulder prosthesisOctober 2023UDI: ()[id number] Issuing Agency: [facility] Device Id: [id number] Expiration Date: 2028-04-14 Lot Number: [id number] CAP PSA-PERF REV STDOctober 2024Stem-fixed humeral head prosthesisOctober 2024UDI: ()[id number] Issuing Agency: [facility] Device Id: [id number] Expiration Date: 2027-08-11 Serial Number: [id number] shoulder humeral stem prosthesisOctober 2024UDI: ()[id number] Issuing Agency: [facility] Device Id: [id number] Expiration Date: 2029-01-05 Serial Number: [id number] humeral body prosthesisOctober 2024UDI: ()[id number] Issuing Agency: [facility] Device Id: [id number] Expiration Date: 2027-05-22 Serial Number: [id number] cement, non-medicatedOctober 2024UDI: ()[id number] Issuing Agency: [facility] Device Id: [id number] Expiration Date: 2027-03-14 Lot Number: [id number] bone wireOctober 2024UDI: ()[id number] Issuing Agency: [facility] Device Id: [id number] Expiration Date: 2034-01-07 Lot Number: [id number] orthopaedic cement restrictor, non-bioabsorbable, sterileOctober 2024UDI: ()[id number] Issuing Agency: [facility] Device Id: [id number] Expiration Date: 2029-07-14 Lot Number: [id number] reverse shoulder prosthesisJuly 2021UDI: ()[id number] Issuing Agency: [facility] Device Id: [id number] Expiration Date: 2025-07-13 Lot Number: [id number] reverse shoulder prosthesisJuly 6th, 2022October 30, 2023UDI: ()[id number] Issuing Agency: [facility] Device Id: [id number] Expiration Date: 2026-01-12 Lot Number: [id number] reverse shoulder prosthesisJuly 6th, 2022October 30, 2023UDI: ()[id number] Issuing Agency: [facility] Device Id: [id number] Expiration Date: 2026-02-12 Lot Number: [id number] reverse shoulder prosthesisJuly 6th, 2October 30, 2023UDI: ()[id number] Issuing Agency: [facility] Device Id: [id number] Expiration Date: 2026-02-12 Lot Number: [id number] reverse shoulder prosthesisJuly 6th, 2October 30, 2023UDI: ()[id number] Issuing Agency: [facility] Device Id: [id number] Expiration Date: 2026-03-14 Lot Number: [id number] reverse shoulder prosthesisJuly 6th, 2October 30, 2023UDI: ()[id number] Issuing Agency: [facility] Device Id: [id number] Expiration Date: 2026-03-14 Lot Number: [id number] reverse shoulder prosthesisJuly 6th, 2022October 30, 2023UDI: ()[id number] Issuing Agency: [facility] Device Id: [id number] Expiration Date: 2025-10-12 Lot Number: [id number] reverse shoulder prosthesisJuly 6th, 2022October 30th, 2023UDI: ([id number] Issuing Agency: [facility] Device Id: [id number] Expiration Date: 2025-12-13 Lot Number: [id number] reverse shoulder prosthesisJuly , 2023UDI: ()[id number] Issuing Agency: [facility] Device Id: [id number] Expiration Date: 2026-02-12 Lot Number: [id number] reverse shoulder prosthesisJuly , [place]2023UDI: ()[id number] Issuing Agency: [facility] Device Id: [id number] Expiration Date: 2026-04-14 Lot Number: [id number] Vital Signs Vital Reading Result Reference Range Collection Date/Time Height 63 [in_i] February 18, 2025 4:79opTslttr66.10 kgFebruary 22, 2025 2:14amBody Mzlyumvzghs72.5 [degF]97.6-99.0February 22, 2025 7:59amHeart Rate75 /sym91-814 February 22, 2025 7:59amRespiratory rate22 /rwo02-28AgufskhqFebruary 22, 2025 7:59am Oxygen saturation by Pulse qdtttkky22 %95-100February 22, 2025 7:59amBP Ucbsrlzq457 mm[Hg]100-140February 22, 2025 7:59amBP Mtclzlyle06 mm[Hg]60-100 February 22, 2025 7:59amInhaled oxygen flow rate3 L/minFebruary 14, 2025 3:13am Advance Directives Advance Directive Response Recorded Date/ Time Advance Directives No February 08, 2025 7:24am Insurance Providers Guarantor Anatoliy Solares Address [address] [address]Zsggpwh Info.Home Phone: Payer Group Member ID Coverage Type Subscriber Relationship to Subscriber Effective Date Expiration Date Medicaid [id number] Lewis , M Id: [id number] [address] [address] [facility] Id: [id number] Lewis , M Id: [id number] [address] [address] Home Phone: selq Encounters Encounter Location(s) Arrival/Admit Date Discharge/Departure Date Discharge/Departure Disposition Provider(s) Departed Physician/ Provider Office Visit -[facility] [place] December 24, 2024 11:21am December 24, 2024 11:57am Discharged to home care or self care (routine discharge) Nickolas Hawthorne DO Departed Physician/ Provider Office Visit -[facility] [place] February 04, 2025 11:11am February 04, 2025 12:00pm Discharged to home care or self care (routine discharge) Nickolas Hawthorne DO Departed Clinical -Pre-Surgica l Testing February 10, 2025 2:21pm February 10, 2025 2:22pm Discharged to home care or self care (routine discharge) Nickolas Hawthorne DO Non-patient / [facility] 2024 9:20am Maxi Solomon MDNon-patient / [facility] 12:00amThomas Turner DO Recent Diagnosis Onset Date Admit Date Arthritis of right knee Unknown 2024 11:21am History of reverse total rep lacement of right shoulder joint Unknown February 04, 2025 11:11am History of revision of total shoulder arthroplasty Unknown February 04, 2025 11:11am Other mechanical complicatio n of other internal orthopedic devices, implant Unknown February 04 11:11am Counseling regarding advance directives and goals of care Unknown February 12, 2025 9:20am History of revision of total shoulder arthroplasty Unknown February 12, 2025 9:20am Hypertension Unknown February 12 9:20am Hyponatremia Unknown February 12 9:20am Hypothyroidism Unknown February 12 9:20am Status post reverse arthroplasty of shoulder Unk nown February 12, 2025 9:20am Tardive dyskinesia Unknown February 12, 2025 9:20am Traumatic closed nondisplace d fracture of distal end of left fibula with ro Unknown February 12, 2025 9 :20am UTI (urinary tract infection) Unknown [facility] 2024 9:20am Assessments Diagnosis Onset Date Resolution Status Admit Date Arthritis of right knee acuteSeptember 2024 11:21amHistory of reverse total replacement of right shoulder jointacuteOctober 2024 11:11amHistory of revision of total shoulder arthroplastyacuteOctober 2024 11:11amOther mechanical complication of other internal orthopedic devices, implantacuteOctober 2024 11:11amCounseling regarding advance directives and goals of careacute February 12, 2025 9:20amHistory of revision of total shoulder arthroplastyacute February 12, 2025 9:20amHypertensionacuteOctober 2024 9:20amHyponatremia acuteOctober 2024 9:20amHypothyroidismacuteOctober 2024 9:20amStatus post reverse arthroplasty of shoulderacuteOctober 2024 9:20amTardive dyskinesiaacuteOctober 2024 9:20amTraumatic closed nondisplaced fracture of distal end of left fibula with roacuteOctober 2024 9:20amUTI (urinary tract infection)acuteOctober 2024 9:20am Plan of Treatment Author Tonia Blackwell [facility] 2024 10:59amShe continues to have pain secondary to the arthritis. We will continue to treat this conservatively. We discussed an injection at this time and patient wishes to proceed. Under sterile condition, 1 cc of Kenalog/ 4 cc bupivacaine were injected into the right knee. Patient tolerated the procedure well. We discussed doing this every 3 moths. She should continue to work with therapy for strength and should be as active as possible. She can follow up in 3 months for repeat injections. Author Nickolas Hawthorne [facility] 2024 11:25amWe discussed exam findings, symptoms, and imaging and likely etiologies of the patient's pain. We discussed conservative management vs surgical intervention. The patient wishes to proceed with surgery in the form of revision of right reverse shoulder replacement arthroplasty, ORIF proximal Humerus. We discussed the risks, benefits, and alternatives to surgery in general, including the potential outcomes with foregoing treatment altogether. The risks include, but are not limited to, the risk of anesthesia up to and including , infection, bleeding, tendon damage, nerve damage, vascular damage, stiffness, weakness, loss of range of motion, arthrofibrosis, failure to alleviate symptoms, worsening of symptoms, continued pain, continued mechanical symptoms, arthritic pain, post traumatic arthritis, wound healing problems, formation of cutaneous scars secondary to surgical incisions, deep venous thrombosis, pulmonary embolism, reflex sympathetic dystrophy, unforeseen complications and the need for further surgery. Procedure: revision of right reverse shoulder arthroplasty vs hemiarthroplasty, ORIF proximal Humerus Antibiotics: Ancef, Doxy 100mg BID x 7 days DVT ppx: ambulation Same Day Surgery: Yes Bed: Beachchair Instruments needed: Tornier reverse shoulder vs hemiarthroplasty Future Tests Future scheduled test information is unavailable Pending Tests Test Name Ordered Date Scheduled Date XR shoulder RT min 2V* February 03, 2025 6:20am CT shoulder RT wo conOctober 2024 10:44am Future Visits Future appointment information is unavailable Future Procedures Procedure Name Ordered Date Scheduled Date Diet Supplement February 16, 2025 11:08am Novem 2024 11:08am Admit Status Order February 12, 2025 9:51am Oct maria g 2024 9:51am Consult to Adult Hospitalist February 12, 2025 9:51am February 12, 2025 9:52am Discharge Order February 22, 2025 12:26pm Abad malloy 2024 12:26pm Consult to Nephrology February 13, 2025 12:47pm February 13, 2025 12:47pm Consult to Neurology February 13, 2025 11:45am February 13, 2025 11:45am Consult to Palliative Care Doctor February 17, 2025 9:22am February 17, 2025 9:22am Future Medications Future medication information is unavailable Patient Instructions Patient instructions are unavailable
--- NOTE | 2025-02-25 | XR_ITS ---
The [address] [address] Patient Name: PATTY ROSE MRN: [id number] date: 1955 Sex: F Assigned Patient Location: [facility] Current Patient Location: [facility] Accession/Order Number: [id number] Exam Date: 02/25/2025 10:25 Report Date: 02/25/2025 11:20 At the request of: RE HSIEH DO Procedure: XR shoulder RT min 2V RIGHT SHOULDER - 2 views CLINICAL HISTORY: Status post reverse total shoulder replacement COMPARISON: 02/04/[address] AP and transthoracic views were obtained. There is osteopenia. There is revision arthroplasty at the shoulder. The new prosthesis has a longer stem. There is a cerclage wire at the proximal humeral shaft fixating the comminuted angulated fracture seen on the comparison. There is improved alignment. Remodeling is again seen at the glenoid. There is also superior subluxation of the humeral head with narrowing of the acromiohumeral interval compatible with rotator cuff disease. There are old rib fractures. No new fracture is seen. There are no significant soft tissue abnormalities. XR/XR shoulder RT min 2V IMPRESSION: REVISION SHOULDER ARTHROPLASTY AND FIXATION OF PROXIMAL HUMERUS FRACTURE, DESCRIBED. SUSPECTED CHRONIC ROTATOR CUFF DISEASE. Impression dictated by: Ligia Carrasquillo M.D. 02/25/2025 11:20 AM Dictation Location: [place] [address] Electronically authenticated by: [id number] Y Date: 02/25/2025 11:20
--- OUTSIDE RECORDS SUMMARY | 2025-02-25 08:26 | XMS_ITS | Clinical Summary ---
Author Organization [facility] Address [address] [place] [address] Phone Care Team Providers Care Pediatric Neuropsychologist Name Role Phone Alexey Connor DO Primary Care Provider Encounters DateTypeDepartmentCare UadcApxvezsvgpo43/03/2025Scanned Document [facility] [address] [place] [id number] Scanning, Generic Provider from Last 3 Months Social History Tobacco UseTypesPacks/DayYears UsedDateSmoking Tobacco: Never Assessed CommentsUnknownSex and Gender InformationValueDate RecordedSex Assigned at Not on fileLegal SpmCejfog28/25/2022 8:26 PM ESTGender IdentityNot on fileSexual OrientationNot on file Last Filed Vital Signs Vital SignReadingTime TakenCommentsBlood Xhlxvbwt398/7806 2:35 PM EDT Grbpz093609/25/2021 2:32 PM EDTTemperature--Respiratory Rate--Oxygen Saturation-- Inhaled Oxygen Concentration--Xangnx33.2 kg (104 lb)09/25/2021 2:32 PM EDTHeight 160 cm (5' 3 )09/25/2021 2:32 PM EDTBody Mass Index18.4206 2:32 PM EDT Plan of Treatment Not on file Procedures Procedure NamePriorityDate/TimeAssociated DiagnosisCommentsECHOCARDIOGRAM 02/15/2025 from Last 3 Months Results * Echocardiogram (02/15/2025) Narrative 02/15/2025 Ordered by an unspecified provider. Authorizing ProviderResult TypeResult StatusGeneric Provider ScanningCV ECHO PROCEDURESFinal Result from Last 3 Months Care Teams Team MemberRelationshipSpecialtyStart DateEnd Date Alexey Connor DO PCP - General04/15/99
--- OUTSIDE RECORDS SUMMARY | 2025-02-25 08:27 | XMS_ITS | Clinical Summary ---
Author Organization [facility] Address [address] [place] [address] Care Team Providers Care Grouter Helper Name Role Phone Esteban Slater MD Primary Care Provider [phone] Allergies Active AllergyReactionsCriticalityNoted DateCommentsErythromycinUnknown 05/14/2023 Medications MedicationSigDispense [...] DueCOVID-19 original vaccine, age 12+ yr, monovalent ([email or web address] - PURPLE TOP)03/26/2021,07/14/2020,06/23/2020 diphtheria tetanus pertussis (DTP) fbcsdbe7112/28/2020influenza (HD-IIV4) vaccine, age 65+ yr, high dose, [...] RecordedNational Score (1-100), lower number is lower zuna919505/14/2023State Score (1-10), lower number is lower risk8 4Data from: https://www.neighborhoodatlas.medicine.[facility].edu/. Last address [facility]4CommentsNoSex and Gender InformationValueDate RecordedSex Assigned at BirthNot on fileLegal Sex Fvozek9306/19/2018 9:36 AM ESTGender IdentityNot on fileSexual OrientationNot on file Last Filed Vital Signs Vital SignReadingTime TakenCommentsBlood Ddonxaik120/80011/12/2023 10:53 AM EDT Icfwg5379/30/2024 10:53 AM EDTTemperature--Respiratory Umqh792308/21/2018 9:37 AM EDTOxygen Mjafzvdkuz82%11/12/2023 10:53 AM EDTInhaled Oxygen Concentration-- Hsnovd81.1 kg (95 lb)11/12/2023 10:53 AM CWYWbiufa597 cm (5' 3 )05/14/2023 3:58 PM ESTBody Mass Index16.8305/14/2023 3:58 PM EST Plan of Treatment Health MaintenanceDue DateLast DoneCommentsAnxiety Cvnjmovry38/11/1974Depression Wvyiqilfb24/11/1974Hepatitis C Emvbkqicd02/11/1974Mammogram Mopggdkcp25/11/1996 CT Tpzpoozemrfe20/11/2001Cologuard (FIT-DNA)05/26/20003495Ntnosxfmftc27/11/2001 Colorectal Cancer Wgywnngla02/11/2001Fecal Occult Blood2000Lipid Screening 05/26/20005503Yywlpdpfljrbr84/11/2001Bone Density Dxjfwhcnx85/11/2021Pneumococcal Vaccine: 50+ (3 of 3 - PCV20 or PCV21), 11/20/2015Advance Directive Blqdyytfbb17/01/2025Medicare Advantage Annual Wellness Visit04/15/2024 Covid-19 Vaccine ( season)/, 11/29/2021, 03/26/2021, Additional history existsInfluenza Vaccine (#1)509/, 12/19/2019, 12/15/2019, Additional history existsDiabetes Fnycmzcjb95/04/2026 05/19/2022, 04/08/2022, 04/04/2022, Additional history existsRSV Vaccine (1 - 1- dose 75+ series)1DTaP,Tdap,Td Vaccine (3 - Td or Tdap)12/28/2030 12/28/2020, 1Shingrix DabxseoHnqqnqskk27/28/2020, 10/28/2019, 02/25/2019, Additional history exists Procedures Procedure NamePriorityDate/TimeAssociated DiagnosisCommentsXR OUTSIDE CD DICOM JHAIZP7802/12/2025 from Last 3 Months Results * CR-XR shoulder RT 1V IMPORT (02/12/2025)Anatomical RegionLateralityModality OtherSpecimen (Source)Anatomical Location / LateralityCollection Method / VolumeCollection TimeReceived Time02/12/2025 Narrative 02/14/2025 2:32 PM EST Images were obtained outside of [facility] Procedure Note Provider, f [facility] [place] - 02/14/2025 Images were obtained outside of [facility] Authorizing ProviderResult TypeResult StatusCcf ProviderRADIOLOGYFinal Result from Last 3 Months Insurance Care Teams Team MemberRelationshipSpecialtyStart DateEnd Esteban Slater MD [address] [place], [place] [id number] PCP - GeneralFamily Medicine07/21/18
--- OUTSIDE RECORDS SUMMARY | 2025-02-25 08:27 | XMS_ITS | Clinical Summary ---
Author Organization [facility] Address [address] [place] [address] Care Team Providers Care Intensive Care Nurse Name Role Phone Esteban Slater MD Primary Care Provider [phone] Allergies Active AllergyReactionsCriticalityNoted DateCommentsAzithromycinUnknown 09/13/2021 Other reaction(s): Unknow ClarithromycinNausea And Vomiting,GI emhjaaywbhsPme65/22/2021rythromycinGI intolerance,Other,EpejsvdGqnjli45/10/2017Erythromycin KaphXqhpvxk98/27/2022 Other reaction(s): Unknown Reaction Hydrocodone-AcetaminophenGI ndwpwnfsgir28/10/2024 Medications MedicationSigDispense QuantityRefillsLast FilledStart DateEnd DateStatus alendronate [...] Take 600 mg by mouth at bedtimeActive Immunizations ImmunizationAdministration DatesNext IccQSR7912/28/2020Influenza, High-dose Seasonal, Quadrivalent, Preservative Free01/10/2021Influenza, injectable, quadrivalent, preservative free12/19/2019,12/25/2018,12/20/2017,12/14/2016 Influenza, seasonal, fgudgrgcof05/01/2020Influenza, seasonal, injectable, preservative free11/20/2015,12/31/2014Pneumococcal Conjugate PCV 1309 Pneumococcal Polysaccharide ORVB47537123Pcwb77/16/2021Zoster, Recombinant 04/11/2020,10/28/2019,02/25/2019Zoster, live11/20/2015 Family History Medical HistoryRelationNameCommentsHeart diseaseFatherEmphysemaMother HypertensionMotherStrokeMotherRelationNameStatusCommentsFatherDeceasedMother Social History Tobacco UseTypesPacks/DayYears UsedDateSmoking Tobacco: Never Assessed CommentsUnknownSex and Gender InformationValueDate RecordedSex Assigned at Not on fileLegal PcqExzdfj33/15/2023 6:36 PM EDTGender IdentityNot on fileSexual OrientationNot on file Last Filed Vital Signs Vital SignReadingTime TakenCommentsBlood Yjstfysc509/7412 12:00 PM EST Bfkjz4763/23/2025 11:35 AM EDTTemperature--Respiratory Qfph968711/04/2024 11:35 AM EDTOxygen Zokuqxzwsp32%11/04/2024 11:35 AM EDTInhaled Oxygen Concentration-- Rgbcad37.4 kg (100 lb)11/04/2024 11:35 AM SHBBtjspr115 cm (5' 3 )11/04/2024 11:35 AM EDTBody Mass Index17.7107 11:35 AM EDT Plan of Treatment DateTypeDepartmentCare Team (Latest Contact Info)Eomcpkjvmqp62/21/2026 11:30 AM ESTOffice Visit [facility] [address] [place] [address] Dionicio Trevizo MD [address] [place] [address] Insurance Care Teams Team MemberRelationshipSpecialtyStart DateEnd Date Esteban Slater MD PCP - GeneralFamily Uipzwrxj95/10/24
--- OUTSIDE RECORDS SUMMARY | 2025-02-25 08:27 | XMS_ITS | Clinical Summary ---
Author Organization [employer] tem Address [facility] [place] [address] Care Team Providers Care Freight Car Cleaner Name Role Phone Alexey Connor Primary Care Provider Allergies Active AllergyReactionsCriticalityNoted DateCommentsClarithromycinNausea And ExpjcwgcEyp83/22/2021ErythromycinNausea And WvenigxjQpxuyh39/10/2017 Medications MedicationSigDispense QuantityRefillsLast FilledStart DateEnd DateStatus levothyroxine (SYNTHROID, LEVOTHROID) 75 MCG tablet Take 1 tablet (75 mcg total) by mouth every morning before breakfast. Take on empty jdjzfjj0711/26/2019Active busPIRone (BUSPAR) 10 mg tablet Take 1 tablet (10 mg total) by mouth in the morning and at bedtime. Give 1 tablet by mouth two times a dayActive gabapentin (NEURONTIN) 300 mg capsule take 1 capsule by mouth IN THE MORNING, 1 CAP IN THE EARLY AFTERNOON AND 2 CAPS IN THE LBRDKIR3809/21/2020ctive pantoprazole (PROTONIX) 40 mg EC tablet Take [...] stoolActive Active Problems ProblemNoted DateDiagnosed DateWitnessed apneic ccigvm4706/07/2023ftercare following right shoulder joint replacement etoeyol9802/25/2024ftercare following left hip joint replacement llfcudm3312/20/2023bnormal stress test09/18/2023 Abnormal EKG008/07/20234825Uehzcizpkmhuxqgh21/21/0838Vxtncenwtej84/21/2024 Zldiueoofrdh64/21/2024isease characterized by destruction of skeletal muscle 07/04/20232213Panluridkf86/21/0160Kwinvkg48/21/2024S/P reverse total shoulder arthroplasty, right05/14/2023Osteoarthritis of left hip05/14/2023vascular necrosis of bone of hip, left04/09/2023Hiatal tgycwq6403/12/2023rimary uuelwpecwbjmyl94/07/2023SIADH (syndrome of inappropriate ADH production) 09/14/20224422Rubbvzbvuwhv63/02/2023Nausea and imoekllv06/28/2023Localized osteoarthritis of right ujfqbvyu38/16/2023Movement zdpfrpia21/09/2022cquired jnjvkjhoocxyxz51/09/2022Generalized anxiety senuydit30/09/2022rimary rvvzwwbuostl10/09/2022Generalized muscle wqcupfqb73/09/2022Multifactorial gait jglzebdi04/09/2022Rectal oypgwmtw55/23/2021Hypo-osmolality and hyponatremia 12/23/2020eg /09/2021losed fracture of neck of femur06/16/2020ain of left hip joint06/16/2020Tardive dyskinesiaAcid refluxHyperlipidemia Resolved Problems ProblemNoted DateDiagnosed DateResolved DateCOVID-190407/5Anemia /5056Yhcstjats65/05/2023hronic kidney nsfseom2709/14/2022 Overview (09/14/2022): patient denies Encounters DateTypeDepartmentCare OprrLrhqtrqpbzm03/23/2025Continuing Care [facility] [address] [place] [address] Alexey Connor, DO Right knee pain, unspecified chronicity (Primary Dx); Hypo-osmolality and hyponatremia; SIADH (syndrome of inappropriate ADH production); Primary hypertension; Movement disorder; Multifactorial gait disorder; Hyperlipidemia, unspecified hyperlipidemia type12/04/2024ontinuing Care [facility] [address] [place] [address] Alexey Connor DO Primary hypertension (Primary Dx); SIADH (syndrome of inappropriate ADH production); Acquired hypothyroidism; Hypoglycemia; Tardive dyskinesia; Iron deficiency anemia, unspecified iron deficiency anemia type; Multifactorial gait disorderfrom Last 3 Months Immunizations ImmunizationAdministration DatesNext DueCOVID-19, mRNA, LNP-S, PF, 100mcg/0.5mL Dose11/29/2021OVID-19, mRNA, LNP-S, PF, 30mcg/0.3mL Dose03/26/2021,07/14/2020, 1Covid-19, Mrna, Lnp-s, Bivalent, Pf, 30mcg/0.3 ml3DTP 12/28/2020Influenza (IM) Preservative Free11/20/2015,12/31/2014Influenza, High- dose, Yfknsnnxzbuc41/28/2021Influenza, Im Trivalent Amgywrwrklxj02/01/2020 Influenza, Injectable, quadrivalent (PF)12/19/2019,12/25/2018,12/20/2017, 12/14/2016Influenza, Ldxttjbsasx69/01/2017Pneumococcal Conjugate 13-Valent 12/25/2018Pneumococcal Zwtwwqiwyxtxrj27/04/2023(),11/20/2015Tdap06/28/2020Zoster Live11/20/2015Zoster Vaccine Vyseirksgqp77/28/2020,10/28/2019,02/25/2019 Family History Medical HistoryRelationNameCommentsEsophagitisFatherstricture specificallyStroke FatherCancerMaternal GrandmotherColon cancerMaternal GrandmotherEmphysemaMother HyperlipidemiaMotherHypertensionMotherStrokeMotherRelationNameStatusComments FatherDeceasedMaternal GrandmotherDeceasedMotherDeceased Social History Tobacco UseTypesPacks/DayYears UsedDateSmoking Tobacco: FormerCigarettes0.520 1971 - 1991Smokeless Tobacco: Never Tobacco Cessation:Counseling Given: Not Answered Comments:Quit in the 90'S, STARTED AGE 18 Alcohol UseStandard Drinks/WeekCommentsNo0 (1 standard drink = 0.6 oz pure alcohol)ChildcareAnswerDate IwnqgqmhNzsqdlnexDofoasq91/12/2019EmploymentAnswer Date HnuvijhuQmncwidhggDrekocu18/12/2019Hunger ScreeningAnswerDate Recorded Within the past 12 months we worried whether our food would run out before we got money to buy more.Never True12/28/2022Food Insecurity - InabilityNot on file 3Purpose - LifeAnswerDate RecordedPurpose and direction in lifeUnknown 1CommentsNoSex and Gender InformationValueDate RecordedSex Assigned at BirthNot on fileLegal SekYkhizr81/06/2015 11:45 AM EDTGender IdentityNot on fileSexual OrientationNot on file Last Filed Vital Signs Vital SignReadingTime TakenCommentsBlood Depmixrd934/5609 10:58 PM EDT Vnqeo370001/05/2025 10:58 PM UUHRcatunmzieq75.6 ??C (97.8 ??F)01/05/2025 10:58 PM EDTRespiratory Sdft475401/05/2025 10:58 PM EDTOxygen Ugyqwofyua55%01/05/2025 10:58 PM EDTInhaled Oxygen Concentration--Dxhcjx49.2 kg (97 lb 6.4 oz)01/05/2025 10:58 PM JQTPvtarw553 cm (5' 3 )08/26/2023 10:10 AM EDTstatedBody Mass Index17.25 08/26/2023 10:10 AM EDT Plan of Treatment Health MaintenanceDue DateLast DoneCommentsDepression Fryonshoy79/11/1968Fall Risk Ciltyojsr40/11/2021Tobacco Xsxeojlno24/14//OVID-19 Vaccine ( season)506/, 11/29/2021, 03/26/2021, Additional history existsInfluenza Pynekjq85/01/775600/, 12/19/2019, 12/15/2019, Additional history existsAdult BMI Ngweexjwb98/RSV ( or age 60+ yrs) (1 - 1-dose 75+ series)05/26/20303064Osgwqzdgglb28/03/203108/06/2020, 11/15/2020TaP,Tdap and Td Vaccines (3 - Td or Tdap)/, 06/28/2020Zoster (Shingles) XwqchxkOqhczgdke54/28/2020, 10/28/2019, 02/25/2019, Additional history exists Goals GoalPatient Goal TypeAssociated ProblemsRecent ProgressPatient-Stated?Author go to [facility] for therapy Ronit Ospina LSW Note: Evaluation of progress towards goal: will DC from ED to SNF upon arrangements Long-Term Goals Amparo Chi LSW Note: Evaluation of progress towards goal: return to [facility] Medical Devices ImplantedTypeAreaManufacturerDevice IdentifierShelf Expiration DateModel / Serial / LotMesh Pco Vntrl Ptch 4.6cm Rpl [id number] - Sna - [id number] Implanted:Qty: 1 on 01/29/2020 [facility] AbdomenMEDTRONIC [place]06/12/2024PCO4VP / NA / [id number] Procedures Procedure NamePriorityDate/TimeAssociated DiagnosisCommentsPROVATION COLONOSCOPY Tqpdspa1611/15/2020 1:30 PM EDT from Last 3 Months [...] Most Recently Relevant to Health Maintenance Insurance * Guarantor: Melanie Espinoza TypeRelation to PatientDate of BirthPhone Billing AddressPersonal/DzuzyeZgar73/11/1956 [address] [address] [place] [address] Advance Directives * Full Code (Latest Code Status on File) Date ActivatedDate InactivatedComments05/18/2022 5:36 PM2 9:18 PM * Full Code Date ActivatedDate OcthzsesnqkCbrpiozx23/23/2021 10:29 AM02/06/2021 4:12 PM * DNR Comfort Care Arrest (DNR-CCA) [place] Date ActivatedDate InactivatedComments01/07/2021 4:37 PM01/08/2021 7:11 PM * Full Code Date ActivatedDate InactivatedComments12/23/2020 7:31 AM12/26/2020 12:12 PM Care Teams Team MemberRelationshipSpecialtyStart DateEnd Date Alexey Connor DO [address] [facility], [place] [address] PCP - GeneralFamily Cluwlqhn78/13/22
--- OUTSIDE RECORDS SUMMARY | 2025-02-25 08:27 | XMS_ITS | Encounter Summary ---
Author Organization [facility] Address [address] [place] [address] Phone Care Team Providers Care Internet Sales Consultant Name Role Phone Alexey Connor DO Primary Care Provider Encounter Details DateTypeDepartmentCare Team (Latest Contact Info)Lyzjsqnztus47/03/2025Scanned Document [facility] [address] [place] [phone] Scanning, Generic Provider Social History Tobacco UseTypesPacks/DayYears UsedDateSmoking Tobacco: Never Assessed CommentsUnknownSex and Gender InformationValueDate RecordedSex Assigned at Not on fileLegal AdjRluami90/25/2022 8:26 PM ESTGender IdentityNot on fileSexual OrientationNot on filedocumented as of this encounter Plan of Treatment Not on file documented as of this encounter Procedures Procedure NamePriorityDate/TimeAssociated DiagnosisCommentsECHOCARDIOGRAM 02/15/2025 documented in this encounter Results * Echocardiogram (02/15/2025) Narrative 02/15/2025 Ordered by an unspecified provider. Authorizing ProviderResult TypeResult StatusGeneric Provider ScanningCV ECHO PROCEDURESFinal Result documented in this encounter Visit Diagnoses Not on filedocumented in this encounter Care Teams Team MemberRelationshipSpecialtyStart DateEnd Date Alexey Connor DO PCP - General04/15/99documented as of this encounter
--- OUTSIDE RECORDS SUMMARY | 2025-02-25 08:27 | XMS_ITS | Clinical Summary ---
Author Organization [facility] Address [address] [place] [address] Care Team Providers Care Ship Liner Name Role Phone Alexey Connor DO Primary Care Provider [phone] Allergies Active AllergyReactionsCriticalityNoted HdhyWlmrgxgqPddnrqpuhdmj61/01/2022 Other reaction(s): Unknow ClarithromycinNausea And SwamueehEiq39/22/2021rythromycinOther,UnknownMedium 07/23/2016Erythromycin Base10/09/2021 Other reaction(s): Unknown Reaction Hydrocodone-AcetaminophenGI onjhtjrourt92/10/2024 Medications MedicationSigDispense QuantityRefillsLast FilledStart DateEnd DateStatus atorvastatin [...] 25 mg 24 hr tablet Indications:Atherosclerosis of [place] coronary artery of [place] heart without angina pectorisTake 1 tablet (25 [...] Problems ProblemNoted DateDiagnosed DateGeneralized muscle ache01/22/2025Witnessed apneic ggslyy4906/07/2023Status post total hip replacement, left12/29/2023ftercare following joint replacement kjunfze4112/20/20235776Hifgufygsedizw12/30/2024GERD (gastroesophageal reflux disease)12/06/2023Traumatic arthritis of left hip 12/06/2023oronary artery disease involving [place] coronary artery of [place] heart without angina kkyhaolc15/05/2024enign hypertensive heart and kidney disease without heart failure and with chronic kidney disease stage V or end stage renal disease(404.12)09/18/2023bnormal EKG008/07/2023cute alteration in mental lesnii58epressionHydronephrosis HypocalcemiaHypokalemia07/04/2023 07/04/20236059Pikctxlknxnxqhma21/21/202403/21/2024Disease characterized by destruction of skeletal yqdzhl60Tardive llaxpbluhe81/21/2024 07/04/2023Osteoarthritis of left hipS/P reverse total shoulder arthroplasty, rightvascular necrosis of bone of hip, left04/09/2023Hiatal mewkxs34rimary osteoarthritis HypoglycemiaSIADH (syndrome of inappropriate ADH production)/Nausea and nmdfesjh87/28/2023 07/04/2023Movement tteajpcw09cquired nyonzogtdcjubs82/09/2022 07/04/20234576Zzilog06Generalized anxiety rejmrtlg03/09/2022 07/04/2023Generalized muscle oyqeyphf96Multifactorial gait zxomklgk19rimary ykkljoyasdga70/09/202203/4Rectal ypvdbttq99hronic kpuremglcfsp60Hypo- osmolality and itdvhuezmyqz85/10/2021eg uicykfcy61ain of left hip joint Resolved Problems ProblemNoted DateDiagnosed DateResolved DateAbnormal stress test09/18/2023 08/09/2024OVID-190/3602Ldxahw4512/08/2023losed fracture of neck of femur Encounters DateTypeDepartmentCare PvocYkvepaggncw07/10/2025 12:20 PM EDTOffice Visit [place] [address] [place] [address] Marline Sandoval MD Generalized muscle ache (Primary Dx); Coronary artery disease involving [place] coronary artery of [place] heart without angina pectoris; Primary hypertension; Pure irpnhjxkzhulsrjnffqv57/18/2025Telephone [facility] [address] [place] [address] Aleida Wu MA 12/30/2024Orders Only [facility] [address] [place] [address] Aleida Wu MA Hyperlipidemia, unspecified hyperlipidemia type [...] heating?Not very hard01/16/2024HQ-2AnswerDate RecordedPatient Health Questionnaire-2 Score0 06/25/2024UT Safety & EnvironmentAnswerDate RecordedWithin the last year, have you been afraid of your partner or ex-partner?No07/04/2023Emotionally AbusedNot on file07/04/2023hysically AbusedNot on file07/04/2023Sexually AbusedNot on file07/04/2023In the past year have you been physically or sexually abused? Unrecognized value07/04/2023TransportationAnswerDate RecordedIn the past 12 months, has lack of transportation kept you from medical appointments or from getting medications?No01/16/2024Lack of Transportation (Non-Medical)Not on file 01/16/2024Housing Stability Vital SignAnswerDate RecordedUnable to Pay for Housing in the Last YearNot on file01/16/2024Number of Places Lived in the Last YearNot on file01/16/2024In the last 12 months, was there a time when you did not have a steady place to sleep or slept in ashelter (including now)?No 01/16/2024Hunger Vital SignAnswerDate RecordedWithin the past 12 months, you worried that your food would run out before you got the money to buymore.Never true01/16/2024an Out of Food in the Last YearNot on file01/16/2024 CommentsNoSex and Gender InformationValueDate RecordedSex Assigned at Hucgqq2904/2024 2:06 PM EDTLegal ZieDizpub90/30/2022 12:32 AM EDTGender DtgobstxZjcxqp82/01/2025 2:06 PM EDTSexual OrientationHeterosexual or Straight 01/13/2025 2:06 PM EDT Last Filed Vital Signs Vital SignReadingTime TakenCommentsBlood Pgchsllg967/6210 12:41 PM EDT Jjoqq705901/22/2025 12:41 PM PZNJowoldovidr10.5 ??C (97.7 ??F)12/10/2023 6:15 AM EDTRespiratory Qesw807012/10/2023 6:15 AM EDTOxygen Yboexznnli57%01/22/2025 12:41 PM EDTInhaled Oxygen Concentration--Kghxmq52.9 kg (99 lb)08/07/2024 3:18 PM EDT Xdvjth761 cm (5' 3 )01/22/2025 12:41 PM EDTBody Mass Index17.54008/07/2024 3:18 PM EDT Plan of Treatment Health MaintenanceDue DateLast DoneCommentsCT Gzvvymouxyrl40/11/1956Colonoscopy 1955olorectal Cancer Cneibuauz47/11/1956FIT-DNA1955FIT1955 FOBT1955Medicare Annual Wellness (AWV)1955 5115Xtllcusznyxtp92/11/1956 Vhsrzsmfm04/11/1996Pneumococcal Vaccine: 50+ Years (3 of 3 - PCV20 or PCV21) /03/2019, 11/20/2015COVID-19 Vaccine (6 - season)2024 09/27/2022, 11/29/2021, 03/26/2021, Additional history existsInfluenza Vaccine (#1)/, 12/19/2019, 12/15/2019, Additional history exists Depression Nkvuvdzdh18/Fall Risk Xtigsjpse25 Adult Tbxiycq92Zoster ErsqszehUuzfsmbbw20/28/2020, 10/28/2019, 02/25/2019, Additional history existsHIB VaccinesAged OutNo [...] ImplantedTypeAreaManufacturerDevice IdentifierShelf Expiration DateModel / Serial / LotScrew,Bone,6.1r14gdbw-Vjm - [id number] Implanted:Qty: 1 on 12/06/2023 [facility]: [id number] / / [id number],Bone,Self-Tap,6.5x35mm - [id number] Implanted:Qty: 1 on 12/06/2023 by [facility]: [id number] / / [id number],Bone,Self-Tap,6.5x30mm - [id number] Implanted:Qty: 1 on 12/06/2023 by [facility]: [id number] / / [id number],Bone,Self-Tap,6.5x20mm - [id number] Implanted:Qty: 1 on 12/06/2023 by [facility]: [id number] / / [id number] Acetabular System Shell Implanted:Qty: 1 on 12/06/2023 [facility] JointLeft: HipBIOMET [id number]/ [id number] / / [id number],G7,E1,40,F - [id number] Implanted:Qty: 1 on 12/06/2023 [facility] JointLeft: HipBIOMET [id number]/ [id number] / / [id number],Reduce,Distal,Stnd,9.0 - [id number] Implanted:Qty: 1 on 12/06/2023 by Ernesto Kan MD at [facility] JointLeft: HipBIOMET [id number]/1- [id number] / / [id number],Biolox-D Mod,40mm - [id number] Implanted:Qty: 1 on 12/06/2023 [facility] JointLeft: HipBIOMET [id number]/09/2033 650-1058 / / [id number],Biolox Option Type 1,-6 - [id number] Implanted:Qty: 1 on 12/06/2023 by Ernesto Kan MD at [facility] JointLeft: HipBIOMET [id number]/ 650-1064 / / [id number] Insurance Advance Directives * Full Code (Latest Code Status on File) Date ActivatedDate InactivatedComments12/10/2023 1:02 PM12/10/2023 7:42 PM * Full Code Date ActivatedDate InactivatedComments12/06/2023 1:47 PM12/10/2023 1:02 PM Care Teams Team MemberRelationshipSpecialtyStart DateEnd Date Alexey Connor DO PCP - GeneralFamily Fiwnndtj89/21/23
== END 2025-02-25 08:23 | disposition home or self-care (01) ==
PROVIDERS: PCP Family Medicine; Visit Provider Physician Assistant
DX: S42.291D Other displaced fracture of upper end of right humerus, subsequent encounter for fracture with routine healing (principal); Z96.619 Presence of unspecified artificial shoulder joint
CPT/HCPCS: 73030